=== PATIENT | male | born 1940 | race Caucasian/White ===

== ENCOUNTER → 2017-03-25 11:11 | Outpatient (POV) | payer MEDICARE, BC, SELFPAY | PROVIDERS: Visit Provider Podiatrist | DX: Z00.00 Encounter for general adult medical examination without abnormal findings (principal) ==

== ENCOUNTER → 2017-04-08 09:36 | Outpatient (POV) | payer MEDICARE, BC, SELFPAY | PROVIDERS: Visit Provider Podiatrist | DX: Z00.00 Encounter for general adult medical examination without abnormal findings (principal) ==

== ENCOUNTER → 2017-04-11 14:09 | Outpatient (CLI) | payer MEDICARE, BC, SELFPAY | PROVIDERS: PCP Internal Medicine; Visit Provider Internal Medicine | DX: J11.1 Influenza due to unidentified influenza virus with other respiratory manifestations (principal) | CPT/HCPCS: 87275; 87276 ==

== ENCOUNTER → 2017-04-26 11:12 | Outpatient (CLI) | payer MEDICARE, BC, SELFPAY ==
[2017-04-26 11:21] LABS: Microscopic, Urine URINE MICROSCOPIC (MICROSCOPIC)
[2017-04-26 11:55] LABS: Appearance,Urine CLEAR (Clear); Bilirubin,Urine Negative (Negative); Blood, Urine Negative (Negative); Color,Urine YELLOW (Yellow); Glucose,Urine (UA) Negative (Negative); Ketones,Urine Negative (Negative); Leukocyte Esterase,Urine Negative (Negative); Nitrate,Urine Negative (Negative); PH,Urine 5.5 (5.0-8.5); Protein,Urine Negative (Negative); Urobilinogen,Urine 0.2 EU/dl (0.2)
[2017-04-26 12:28] LABS: Creatinine,Urine Random 25 mg/dL (20-320)
[2017-04-26 12:58] LABS: Total Protein,Urine Random < 6.0 mg/dL (0.0-11.9)
[2017-04-26 14:12] LABS: Albumin Level 3.8 gm/dL (3.4-5.0); Anion Gap 10.9 mEq/L (5-15); Blood Urea Nitrogen 28 mg/dL (7-18); Calcium 8.5 mg/dL (8.5-10.1); Carbon Dioxide 31 mmol/L (21.0-32.0); Chloride 104 mmol/L (98-107); Creatinine,Serum 1.62 mg/dL (0.70-1.30); Estimated Glomerular Filt Rate 41 ml/min (>60); GFR (African American) 50 ML/MIN (>60); Glucose 98 mg/dL (74-106); Phosphorous 3.9 mg/dL (2.4-4.9); Potassium 4.9 mmoL/L (3.5-5.1); Sodium 141 mmol/L (136-145)
[2017-04-26 14:36] LABS: Bacteria,Urine Trace /lpf; Squamous Epithelial Cell,Urine Occasional #/hpf (0-5)
== END ==
PROVIDERS: Visit Provider Internal Medicine Nephrology
DX: N18.3 Chronic kidney disease, stage 3 (moderate) (principal)
CPT/HCPCS: 36415; 80069; 81001; 82570; 84155

== ENCOUNTER → 2017-09-06 10:32 | Outpatient (REF) | payer MEDICARE, BC, SELFPAY | LOC: LAB 10:32 | PROVIDERS: Visit Provider Podiatrist | DX: B35.1 Tinea unguium (principal) | CPT/HCPCS: 87102; 87206; 87220 ==

== ENCOUNTER → 2017-11-17 11:31 | Outpatient (CLI) | payer MEDICARE, SELFPAY ==
[2017-11-17 11:35] LABS: Microscopic, Urine URINE MICROSCOPIC (MICROSCOPIC)
[2017-11-17 12:02] LABS: Appearance,Urine CLEAR (Clear); Bilirubin,Urine Negative (Negative); Blood, Urine Negative (Negative); Color,Urine YELLOW (Yellow); Glucose,Urine (UA) Negative (Negative); Ketones,Urine Negative (Negative); Leukocyte Esterase,Urine Negative (Negative); Nitrate,Urine Negative (Negative); PH,Urine 5.5 (5.0-8.5); Protein,Urine Negative (Negative); Urobilinogen,Urine 0.2 EU/dl (0.2)
[2017-11-17 13:16] LABS: Squamous Epithelial Cell,Urine Occasional #/hpf (0-5)
[2017-11-17 14:24] LABS: Anion Gap 12.2 mEq/L (5-15); Blood Urea Nitrogen 32 mg/dL (7-18); Carbon Dioxide 30 mmol/L (21.0-32.0); Chloride 108 mmol/L (98-107); Creatinine,Serum 1.87 mg/dL (0.70-1.30); Estimated Glomerular Filt Rate 35 ml/min (>60); GFR (African American) 42 ML/MIN (>60); Glucose 141 mg/dL (74-106); Phosphorous 4.2 mg/dL (2.4-4.9); Potassium 5.2 mmoL/L (3.5-5.1); Sodium 145 mmol/L (136-145)
== END ==
PROVIDERS: PCP Internal Medicine; Visit Provider Internal Medicine Nephrology
DX: N18.3 Chronic kidney disease, stage 3 (moderate) (principal)
CPT/HCPCS: 36415; 80069; 81001

== ENCOUNTER → 2018-05-23 11:25 | Outpatient (CLI) | payer MEDICARE, SELFPAY ==
[2018-05-23 11:29] LABS: Microscopic, Urine URINE MICROSCOPIC (MICROSCOPIC)
[2018-05-23 11:47] LABS: Appearance,Urine CLEAR (Clear); Bilirubin,Urine Negative (Negative); Blood, Urine Negative (Negative); Color,Urine YELLOW (Yellow); Glucose,Urine (UA) Negative (Negative); Ketones,Urine Negative (Negative); Leukocyte Esterase,Urine Negative (Negative); Nitrate,Urine Negative (Negative); PH,Urine 5.5 (5.0-8.5); Protein,Urine Negative (Negative); Urobilinogen,Urine 0.2 EU/dl (0.2)
[2018-05-23 12:01] LABS: Basophils % 0.4 % (0.1-2.0); Eosinophils # 0.1 K/mm3 (0.0-0.4); Eosinophils % 1.3 % (0.1-12.0); Hematocrit 37.1 % (42.0-52.0); Lymphocytes # 2.5 K/mm3 (0.7-4.5); Lymphocytes % 35.9 % (10-50); Mean Corpuscular HGB Conc 32.5 g/dL (31.8-35.4); Mean Corpuscular Hemoglobin 33.3 pg (27.0-31.2); Mean Corpuscular Volume 102.4 fl (80-94); Mean Platelet Volume 7.9 fl (7.4-10.4); Monocytes # 0.4 K/mm3 (0.1-1.0); Monocytes % 5.4 % (1.7-9.3); Neutrophils # 3.9 K/mm3 (1.8-7.8); Platelet Count 229 K/mm3 (142-424); Red Blood Count 3.62 M/mm3 (4.60-6.20); Red Cell Distribution Width 14.9 % (11.5-17.5); White Blood Count 6.8 K/mm3 (4.8-10.8)
[2018-05-23 12:40] LABS: Bacteria,Urine Trace /lpf; Squamous Epithelial Cell,Urine Occasional #/hpf (0-5); WBC,Urine Occasional #/hpf (0-3)
[2018-05-23 12:51] LABS: Blood Urea Nitrogen 31 mg/dL (7-18); Calcium 8.7 mg/dL (8.5-10.1); Carbon Dioxide 28 mmol/L (21.0-32.0); Chloride 103 mmol/L (98-107); Creatinine,Serum 1.71 mg/dL (0.70-1.30); Estimated Glomerular Filt Rate 39 ml/min (>60); GFR (African American) 47 ML/MIN (>60); Glucose 229 mg/dL (74-106); Phosphorous 3.4 mg/dL (2.4-4.9); Sodium 140 mmol/L (136-145); Uric Acid 5.7 mg/dL (2.6-7.2)
[2018-05-24 08:44] LABS: Vitamin D 25 Hydroxy 32.2 ng/mL (30.0-100.0)
== END ==
PROVIDERS: Visit Provider Hospitalist
DX: N18.3 Chronic kidney disease, stage 3 (moderate) (principal)
CPT/HCPCS: 36415; 80069; 81001; 82652; 84550; 85025

== ENCOUNTER → 2018-10-19 17:14 | Outpatient (CLI) | payer MEDICARE, SELFPAY | PROVIDERS: Visit Provider Podiatrist | DX: M79.675 Pain in left toe(s) (principal) | CPT/HCPCS: 87070; 87077; 87186; 87205 ==

== ENCOUNTER → 2018-10-31 15:09 | Outpatient (CLI) | payer MEDICARE, BC, SELFPAY ==
--- NOTE | 2018-10-31 15:35 | CT_ITS ---
PROCEDURE: CT CERVICAL SPINE WO CON CLINICAL INDICATION: LOW BACK PAIN,WEAKNESS BOTH LEGS/ARMS,NECK PAIN Neck pain, bilateral arm weakness COMPARISON: No exams were available for comparison TECHNIQUE: Axial images obtained with sagittal and coronal reformats. All CT scans at the facility use one or more dose reduction, viz: automated exposure control, ma/kV adjustment per patient size (including targeted exams where dose is matched to indication, i.e. head), or iterative reconstruction technique. Axial spiral CT scanning performed of the cervical spine beginning at the base of the skull and continuing to the upper T-spine. 3-D multiplanar reconstruction with 3-D manipulation of volumetric data set in image rendering was completed by the radiologist and/or technologist with the supervision of the radiologist on independent workstation. FINDINGS: There is normal alignment. Prominent anterior osteophytes are present from C2 to C6 consistent with DISH. C2-C3: Unremarkable. C3-C4: Unremarkable. C4-C5: Unremarkable. C5-C6: Unremarkable. C6-C7: There is a small central/right paracentral disc osteophyte complex. There is an old spinous process fracture involving the tip of the T1 Centrilobular emphysematous changes are present IMPRESSION: No acute fracture. DISH of the cervical spine Small right paracentral disc osteophyte complex at C6-C7 Dictated by: Anoop Tsang MD 10/31/2018 16:38 Signed by: <Electronically signed by Anoop Tsang MD in [facility]> 10/31/2018 16:38
--- NOTE | 2018-10-31 15:35 | CT_ITS ---
PROCEDURE: CT LUMBAR SPINE WO CON CLINICAL HISTORY: LOW BACK PAIN,WEAKNESSBOTH LEGS/ARMS,NECK PAIN Bilateral leg weakness COMPARISON: No exams were available for comparison TECHNIQUE: Axial images obtained with sagittal and coronal reformats. All CT scans at the facility use one or more dose reduction, viz: automated exposure control, ma/kV adjustment per patient size (including targeted exams where dose is matched to indication, i.e. head), or iterative reconstruction technique. FINDINGS: Normal alignment. No fracture or dislocation. T12-L1: Degenerate disc disease. L1-L2: Mild degenerative disc disease. L2-L3: Mild bulging disc along with facet ligamentum hypertrophy with bilateral foraminal narrowing. L3-L4: Mild bulging disc. L4-5: Degenerate disc disease with bulging disc with facet and ligamentum hypertrophy with moderate bilateral foraminal narrowing slightly greater on the left. L5-S1: Degenerate disc disease with bulging disc which is partially calcified. The discus eccentric centrally and toward the left with moderate left lateral recess and foraminal narrowing and moderate right foraminal narrowing as well. There is sclerosis of the SI joints on both sides with partial fusion bilaterally. IMPRESSION: Multilevel degenerative disc disease with bulging disc a along with facet ligamentum hypertrophy with bilateral lateral recess and foraminal narrowing. Please see above for detailed description at each level Dictated by: Anoop Tsang MD 10/31/2018 16:44 Signed by: <Electronically signed by Anoop Tsang MD in [facility]> 10/31/2018 16:44
== END ==
PROVIDERS: PCP Internal Medicine; Visit Provider Internal Medicine
DX: M54.2 Cervicalgia (principal); M54.5 Low back pain; R53.1 Weakness
CPT/HCPCS: 72125; 72131

== ENCOUNTER → 2018-11-15 10:32 | Outpatient (CLI) | payer MEDICARE, SELFPAY ==
[2018-11-15 10:59] LABS: Basophils % 0.2 % (0.1-2.0); Eosinophils % 0.2 % (0.1-12.0); Hematocrit 33.5 % (42.0-52.0); Lymphocytes # 1.4 K/mm3 (0.7-4.5); Lymphocytes % 14.3 % (10-50); Mean Corpuscular HGB Conc 32.9 g/dL (31.8-35.4); Mean Corpuscular Hemoglobin 33.1 pg (27.0-31.2); Mean Corpuscular Volume 100.6 fl (80-94); Mean Platelet Volume 7.5 fl (7.4-10.4); Monocytes % 10.3 % (1.7-9.3); Neutrophils # 7.1 K/mm3 (1.8-7.8); Platelet Count 265 K/mm3 (142-424); Red Blood Count 3.33 M/mm3 (4.60-6.20); Red Cell Distribution Width 14.8 % (11.5-17.5); White Blood Count 9.5 K/mm3 (4.8-10.8)
[2018-11-15 11:06] LABS: Alanine Aminotransferase 43 U/L (12-78); Albumin Level 3.8 gm/dL (3.4-5.0); Albumin/Globulin Ratio 0.8 (1.1-1.8); Alkaline Phosphatase 109 U/L (46-116); Anion Gap 16.3 mEq/L (5-15); Aspartate Amino Transferase 35 U/L (15-37); Bilirubin,Total 0.4 mg/dL (0.2-1.0); Calcium 8.8 mg/dL (8.5-10.1); Carbon Dioxide 24 mmol/L (21.0-32.0); Chloride 93 mmol/L (98-107); Creatinine,Serum 2.65 mg/dL (0.70-1.30); Estimated Glomerular Filt Rate 23 ml/min (>60); GFR (African American) 28 ML/MIN (>60); Globulin 4.6 gm/dl (1.3-3.2); Glucose 222 mg/dL (74-106); Potassium 4.3 mmoL/L (3.5-5.1); Sodium 129 mmol/L (136-145); Total Protein,Serum 8.4 gm/dL (6.4-8.2)
[2018-11-15 11:13] LABS: C-Reactive Protein 17.2 mg/dL (0.0-0.9)
[2018-11-15 11:24] LABS: Blood Urea Nitrogen 77 mg/dL (7-18)
[2018-11-15 13:29] LABS: Hemoglobin A1C 7.4 % (0.0-7.0)
[2018-11-15 14:25] LABS: Erythrocyte Sedimentation Rate 121 mm/hr (0-20)
== END ==
PROVIDERS: PCP Internal Medicine; Visit Provider Podiatrist
DX: E11.42 Type 2 diabetes mellitus with diabetic polyneuropathy (principal); Z79.4 Long term (current) use of insulin; M79.675 Pain in left toe(s); E78.5 Hyperlipidemia, unspecified; N17.9 Acute kidney failure, unspecified; N18.3 Chronic kidney disease, stage 3 (moderate)
CPT/HCPCS: 36415; 80053; 83036; 85025; 85651; 86140

== ENCOUNTER → 2018-11-27 09:53 | Outpatient (CLI) | payer MEDICARE, BC, SELFPAY ==
--- NOTE | 2018-11-27 10:13 | XR_ITS ---
PROCEDURE: XR FOOT WT BEARING LT 3V CLINICAL INDICATION: toe wound COMPARISON: FTL3 FOOT-LT-3 VIEWS from 12/13/2016 FINDINGS: There is generalized mild osteopenia and lateral view shows flattening of the plantar arch. Some of the digits however on the AP and oblique view are flexed and therefore the middle and distal phalanges are not as well visualize, specially involving 3rd, 4th and 5th digits. There is narrowing of all of the interphalangeal joints and this is more severe with marginal spurs at the interphalangeal joint of the 1st digit. There is no acute fracture. There are stable degenerative arthritic changes involving the tarsal area especially the talonavicular joint. Again seen is the chronic benign periosteal reaction from the healed fracture involving the proximal phalanx of the 3rd digit. IMPRESSION: No definite acute process although difficult to evaluate the distal toes because of flexion of the digits. Chronic benign appearing erosion of the terminal tuft of the distal phalanx of the 2nd digit. Increased osteoarthritic changes at the 1st digit interphalangeal joint. Severe pes planus is stable. Dictated by: Prosper Valdez 11/27/2018 12:40 Electronically signed by Prosper Valdez in [place] 11/27/2018 12:40
[2018-11-27 14:48] LABS: C-Reactive Protein 0.9 mg/dL (0.0-0.9); Uric Acid 7.3 mg/dL (2.6-7.2)
[2018-11-27 16:38] LABS: Erythrocyte Sedimentation Rate > 140 mm/hr (0-20)
== END ==
PROVIDERS: PCP Internal Medicine; Visit Provider Podiatrist
DX: L03.032 Cellulitis of left toe (principal); M10.9 Gout, unspecified; M79.675 Pain in left toe(s)
CPT/HCPCS: 36415; 73630; 84550; 85651; 86140

== ENCOUNTER 2018-12-18 14:00 | Outpatient (RCR) | payer MEDICARE, BC, SELFPAY ==
--- NOTE | 2018-11-21 15:30 | HMH.PTOPEV ---
PT Outpatient Evaluation Rehab PT Outpatient Evaluation Start: 11/21/18 13:07 Freq: Status: Active Protocol: Document 11/21/18 13:51 PDESEROUX (Rec: 11/21/18 15:30 PDESEROUX [id number]) Electronically Signed By Jl Lane, PT 11/21/18 13:51 Outpatient Therapy Subjective History Subjective History Pt. is an 78 year old male who presents to outpatient PT with complaints of constant and subacute LLB/ LLE P! of traumatic onset since 11/03/18 after helping his granddaughter move. Pt. also reports L anterior/ superior shoulder P! that feels a lot better after the move. Recent diagnostic imaging positive for 3 bulging discs(lumbar) per pt. report. Pt. reports being W/C bound 2 weeks ago because he couldn't move his legs. Pt. reports going to the ER and seeing a Neurologist/[facility] where blood work was taken indicating his potassium level was off. Pt. RTMD( [facility]) on 12/12/18. Pt. RTMD(Leif) on 11/27/18. Current medications include Relion Novolin, Miralax, Ranitidine, Simethicone, Simvastatin, Vitamin B-12, Tylenol, Amlodipine, Aspirin, Plavix, Lasix, Coenzyme, and Allopurinol. PMH includes bilateral cataract surgery, HTN, type II diabetes, and a R mandible fracture. Chief Complaint Pain Symptom Type Ache Symptoms Relieved By Rest/Positioning Symptoms Aggravated By Standing,Bending/Stooping, Physical Activity,Twisting, Walking Prior Functional Limitations None Current Functional Limitations Lifting,Sleeping,Standing, Recreation Activity,Walking, Bending/Stooping Symptom Description Constant but Variable Level of pain today (0-10) 4 Pain scale - at its best (0-10) 3 Pain scale - at its worst (0-10) 6 Lumbopelvic Eval Posture Thoracic Spine Postu
== END 2019-01-01 16:00 | disposition home or self-care (01) ==
LOC: PT.CARL 14:00
PROVIDERS: PCP Internal Medicine; Visit Provider Internal Medicine
DX: M54.2 Cervicalgia (principal); M54.42 Lumbago with sciatica, left side
CPT/HCPCS: 97012; 97014; 97110; 97140; 97163; G0283

== ENCOUNTER → 2018-12-28 11:22 | Outpatient (CLI) | payer MEDICARE, BC, SELFPAY ==
[2018-12-28 11:29] LABS: Microscopic, Urine URINE MICROSCOPIC (MICROSCOPIC)
[2018-12-28 14:03] LABS: Basophils % 0.3 % (0.1-2.0); Eosinophils # 0.1 K/mm3 (0.0-0.4); Hematocrit 37.9 % (42.0-52.0); Hemoglobin 11.7 g/dL (14.1-18.0); Lymphocytes # 1.9 K/mm3 (0.7-4.5); Lymphocytes % 31.9 % (10-50); Mean Corpuscular HGB Conc 30.8 g/dL (31.8-35.4); Mean Corpuscular Hemoglobin 33.2 pg (27.0-31.2); Mean Corpuscular Volume 107.8 fl (80-94); Mean Platelet Volume 7.9 fl (7.4-10.4); Monocytes # 0.7 K/mm3 (0.1-1.0); Monocytes % 10.8 % (1.7-9.3); Neutrophils # 3.4 K/mm3 (1.8-7.8); Platelet Count 241 K/mm3 (142-424); Red Blood Count 3.51 M/mm3 (4.60-6.20); Red Cell Distribution Width 15.1 % (11.5-17.5); White Blood Count 6.1 K/mm3 (4.8-10.8)
[2018-12-28 14:07] LABS: Appearance,Urine CLEAR (Clear); Bilirubin,Urine Negative (Negative); Blood, Urine Negative (Negative); Color,Urine YELLOW (Yellow); Glucose,Urine (UA) Negative (Negative); Ketones,Urine Negative (Negative); Leukocyte Esterase,Urine TRACE (Negative); Nitrate,Urine Negative (Negative); PH,Urine 5.5 (5.0-8.5); Protein,Urine Negative (Negative); Urobilinogen,Urine 0.2 EU/dl (0.2)
[2018-12-28 14:15] LABS: Albumin Level 3.5 gm/dL (3.4-5.0); Anion Gap 11.1 mEq/L (5-15); Blood Urea Nitrogen 24 mg/dL (7-18); Calcium 8.4 mg/dL (8.5-10.1); Carbon Dioxide 28 mmol/L (21.0-32.0); Chloride 105 mmol/L (98-107); Creatinine,Serum 1.82 mg/dL (0.70-1.30); Estimated Glomerular Filt Rate 36 ml/min (>60); GFR (African American) 44 ML/MIN (>60); Glucose 176 mg/dL (74-106); Phosphorous 2.9 mg/dL (2.4-4.9); Potassium 4.1 mmoL/L (3.5-5.1); Sodium 140 mmol/L (136-145)
[2018-12-28 14:52] LABS: Bacteria,Urine Trace /lpf; Squamous Epithelial Cell,Urine Occasional #/hpf (0-5)
== END ==
PROVIDERS: PCP Internal Medicine; Visit Provider Internal Medicine Nephrology
DX: N18.4 Chronic kidney disease, stage 4 (severe) (principal)
CPT/HCPCS: 36415; 80069; 81001; 85025

== ENCOUNTER → 2019-01-02 12:28 | Outpatient (CLI) | payer MEDICARE, BC, SELFPAY ==
--- NOTE | 2019-01-02 12:30 | MR_ITS ---
PROCEDURE: MR LUMBAR SPINE WO CON CLINICAL INDICATION: LEFT SCIATICA, LOW BACK PAIN Low back pain with left-sided back pain and leg pain COMPARISON: CT LUMBAR SPINE WO CON from 10/31/2018 TECHNIQUE: Standard multiplanar multiecho sequences are performed without contrast. 3-D MIP and myelographic images are also rendered and reviewed FINDINGS: There is normal alignment. The spinal cord ends at the L1 level. T11-T12: Mild degenerative disc disease. T12-L1: Mild degenerative disc disease. L1-L2: Mild facet and ligamentum hypertrophy with mild bilateral foraminal narrowing. L2-L3: Mild bulging disc with facet and ligamentum hypertrophy with bilateral lateral recess and foraminal narrowing L3-L4: There is moderate facet ligamentum hypertrophy with bilateral lateral recess and foraminal narrowing. L4-5: Bulging disc with annular fissure with moderate facet ligamentum hypertrophy with severe left-sided foraminal narrowing and moderate right foraminal narrowing along with bilateral lateral recess narrowing. Borderline canal stenosis. L5-S1: Mild degenerative disc disease with concentric bulging disc/disc osteophyte complex which is somewhat eccentric toward the left along with facet and ligamentum hypertrophy with resultant severe left-sided foraminal narrowing and moderate right foraminal narrowing along with canal stenosis of 10 mm. No extruded herniated disc evident. IMPRESSION: 1. Abnormal MRI of the lumbar spine with multilevel lumbar spondylosis as detailed above with varying levels of lateral recess and foraminal narrowing with borderline canal stenosis at L4-5 and canal stenosis at L5-S1. Please see above for detailed description at each level. 2. L4-5: Bulging disc with annular fissure with moderate facet ligamentum hypertrophy with severe left-sided foraminal narrowing and moderate right foraminal narrowing along with bilateral lateral recess narrowing. Borderline canal stenosis. 3. L5-S1: Mild degenerative disc disease with concentric bulging disc/disc osteophyte complex which is somewhat eccentric toward the left along with facet and ligamentum hypertrophy with resultant severe left-sided foraminal narrowing and moderate right foraminal narrowing along with canal stenosis of 10 mm Dictated by: Anoop Tsang MD 01/05/2019 06:41 Electronically signed by Anoop Tsang MD in [facility] 01/05/2019 06:41
== END ==
PROVIDERS: PCP Internal Medicine; Visit Provider Internal Medicine
DX: M54.32 Sciatica, left side (principal)
CPT/HCPCS: 72148; 76376

== ENCOUNTER → 2019-03-27 10:39 | Outpatient (CLI) | payer MEDICARE, SELFPAY ==
[2019-03-27 10:46] LABS: Microscopic, Urine URINE MICROSCOPIC (MICROSCOPIC)
[2019-03-27 13:52] LABS: Basophils % 0.5 % (0.1-2.0); Eosinophils # 0.1 K/mm3 (0.0-0.4); Eosinophils % 1.8 % (0.1-12.0); Hematocrit 38.9 % (42.0-52.0); Hemoglobin 12.7 g/dL (14.1-18.0); Lymphocytes # 2.3 K/mm3 (0.7-4.5); Mean Corpuscular HGB Conc 32.6 g/dL (31.8-35.4); Mean Corpuscular Hemoglobin 32.2 pg (27.0-31.2); Mean Corpuscular Volume 98.6 fl (80-94); Mean Platelet Volume 8.3 fl (7.4-10.4); Monocytes # 0.5 K/mm3 (0.1-1.0); Monocytes % 6.9 % (1.7-9.3); Neutrophils # 4.7 K/mm3 (1.8-7.8); Neutrophils % 60.7 % (37.0-80.0); Platelet Count 278 K/mm3 (142-424); Red Blood Count 3.94 M/mm3 (4.60-6.20); Red Cell Distribution Width 14.4 % (11.5-17.5); White Blood Count 7.8 K/mm3 (4.8-10.8)
[2019-03-27 14:46] LABS: Appearance,Urine CLEAR (Clear); Bilirubin,Urine Negative (Negative); Blood, Urine Negative (Negative); Color,Urine STRAW (Yellow); Glucose,Urine (UA) Negative (Negative); Ketones,Urine Negative (Negative); Leukocyte Esterase,Urine Negative (Negative); Nitrate,Urine Negative (Negative); PH,Urine 5.5 (5.0-8.5); Protein,Urine Negative (Negative); Specific Gravity, Urine 1.025 (1.005-1.030); Urobilinogen,Urine 0.2 EU/dl (0.2)
[2019-03-27 15:11] LABS: Bacteria,Urine 2+ /lpf; Hyaline Casts,Urine Occasional #/lpf (0); Mucus,Urine 1+ /lpf; Squamous Epithelial Cell,Urine Occasional #/hpf (0-5); WBC,Urine Occasional #/hpf (0-3)
[2019-03-27 21:04] LABS: Albumin Level 3.8 gm/dL (3.4-5.0); Anion Gap 16.8 mEq/L (5-15); Blood Urea Nitrogen 30 mg/dL (7-18); Calcium 8.6 mg/dL (8.5-10.1); Carbon Dioxide 29 mmol/L (21.0-32.0); Chloride 104 mmol/L (98-107); Creatinine,Serum 2.07 mg/dL (0.70-1.30); Estimated Glomerular Filt Rate 31 ml/min (>60); Ferritin 96 ng/mL (8-388); GFR (African American) 38 ML/MIN (>60); Glucose 197 mg/dL (74-106); Potassium 4.8 mmoL/L (3.5-5.1); Sodium 145 mmol/L (136-145)
[2019-03-28 09:18] LABS: Iron 74 ug/dL (38-169); UIBC 202 ug/dL (111-343)
[2019-03-28 10:49] LABS: Iron Saturation 27 % (15-55)
== END ==
PROVIDERS: PCP Internal Medicine; Visit Provider Internal Medicine Nephrology
DX: N18.3 Chronic kidney disease, stage 3 (moderate) (principal); D64.9 Anemia, unspecified; R82.90 Unspecified abnormal findings in urine
CPT/HCPCS: 36415; 80069; 81001; 82728; 83540; 83550; 85025; 87086

== ENCOUNTER → 2019-08-02 11:49 | Outpatient (CLI) | payer MEDICARE, SELFPAY ==
[2019-08-02 11:53] LABS: Microscopic, Urine URINE MICROSCOPIC (MICROSCOPIC)
[2019-08-02 12:25] LABS: Basophils # 0.1 K/mm3 (0-0.2); Basophils % 0.8 % (0.1-2.0); Eosinophils # 0.1 K/mm3 (0.0-0.4); Hematocrit 38.9 % (42.0-52.0); Lymphocytes # 2.1 K/mm3 (0.7-4.5); Lymphocytes % 27.6 % (10-50); Mean Corpuscular HGB Conc 33.5 g/dL (31.8-35.4); Mean Corpuscular Hemoglobin 33.8 pg (27.0-31.2); Mean Corpuscular Volume 100.6 fl (80-94); Mean Platelet Volume 7.6 fl (7.4-10.4); Monocytes # 0.6 K/mm3 (0.1-1.0); Monocytes % 7.2 % (1.7-9.3); Neutrophils # 4.9 K/mm3 (1.8-7.8); Neutrophils % 63.5 % (37.0-80.0); Platelet Count 232 K/mm3 (142-424); Red Blood Count 3.86 M/mm3 (4.60-6.20); Red Cell Distribution Width 14.7 % (11.5-17.5); White Blood Count 7.8 K/mm3 (4.8-10.8)
[2019-08-02 14:08] LABS: Albumin Level 4.1 g/dl (3.5-5.0); Chloride 102 mmol/L (98-107); Potassium 4.9 mmoL/L (3.5-5.1); Sodium 141 mmol/L (136-145)
[2019-08-02 14:11] LABS: Anion Gap 10.9 mEq/L (5-15); Blood Urea Nitrogen 26 mg/dl (9-20); Calcium 8.5 mg/dl (8.4-10.2); Carbon Dioxide 33 mmol/L (22.0-30.0); Estimated Glomerular Filt Rate 36 ml/min (>60); GFR (African American) 44 ML/MIN (>60); Glucose 215 mg/dl (74-100); Phosphorous 3.8 mg/dl (2.5-4.5); Uric Acid 7.7 mg/dl (3.5-8.5)
[2019-08-02 14:50] LABS: Appearance,Urine CLEAR (Clear); Bilirubin,Urine Negative (Negative); Blood, Urine Negative (Negative); Color,Urine YELLOW (Yellow); Glucose,Urine (UA) Negative (Negative); Ketones,Urine Negative (Negative); Leukocyte Esterase,Urine Negative (Negative); Nitrate,Urine Negative (Negative); PH,Urine 6.5 (5.0-8.5); Protein,Urine Negative (Negative); Urobilinogen,Urine 0.2 EU/dl (0.2)
[2019-08-02 17:29] LABS: Bacteria,Urine Trace /lpf; Squamous Epithelial Cell,Urine Occasional #/hpf (0-5); WBC,Urine Occasional #/hpf (0-3)
[2019-08-03 12:06] LABS: Vitamin D 25 Hydroxy 34.6 ng/mL (30.0-100.0)
[2019-08-03 15:41] LABS: Parathyroid Hormone Intact 52 pg/mL (15-65)
== END ==
PROVIDERS: Visit Provider Hospitalist
DX: N18.3 Chronic kidney disease, stage 3 (moderate) (principal); M10.9 Gout, unspecified
CPT/HCPCS: 36415; 80069; 81001; 82652; 83970; 84550; 85025

== ENCOUNTER → 2019-12-24 14:53 | Outpatient (CLI) | payer MEDICARE, BC, SELFPAY ==
[2019-12-24 14:57] LABS: Microscopic, Urine URINE MICROSCOPIC (MICROSCOPIC)
--- NOTE | 2019-12-24 15:08 | XR_ITS ---
PROCEDURE: XR ACUTE ABDOMEN SERIES CLINICAL INDICATION: RUQ ABD PAIN COMPARISON: CT ABDPELW/O CT ABD PELVIS W/O CONTRAST from 05/01/2013 CR CXR CHEST(2 VIEWS-NOT PORTABLE) from 07/15/2015 FINDINGS: Frontal view of the chest shows no acute finding. Upright and supine views the abdomen show few air-fluid levels in the mid abdominal region and right lower quadrant. No evidence of intestinal obstruction or free air. There are degenerative changes of the lumbar spine and hips. Faint opacities are present in the right upper quadrant on the supine views suggesting gallstones. IMPRESSION: Cholelithiasis suspected otherwise negative Dictated by: Anoop Tsang MD 12/24/2019 15:48 Anoop Tsang MD in [facility] 12/24/2019 15:48
[2019-12-24 15:16] LABS: Appearance,Urine CLEAR (Clear); Bilirubin,Urine Negative (Negative); Blood, Urine Negative (Negative); Color,Urine YELLOW (Yellow); Glucose,Urine (UA) Negative (Negative); Ketones,Urine Negative (Negative); Leukocyte Esterase,Urine Negative (Negative); Nitrate,Urine Negative (Negative); Protein,Urine Negative (Negative); Urobilinogen,Urine 0.2 EU/dl (0.2)
[2019-12-24 15:18] LABS: Basophils % 0.3 % (0.1-2.0); Eosinophils # 0.1 K/mm3 (0.0-0.4); Eosinophils % 0.6 % (0.1-12.0); Hematocrit 41.9 % (42.0-52.0); Hemoglobin 14.1 g/dL (14.1-18.0); Lymphocytes # 2.5 K/mm3 (0.7-4.5); Lymphocytes % 26.2 % (10-50); Mean Corpuscular HGB Conc 33.6 g/dL (31.8-35.4); Mean Corpuscular Hemoglobin 33.1 pg (27.0-31.2); Mean Corpuscular Volume 98.3 fl (80-94); Mean Platelet Volume 8.4 fl (7.4-10.4); Monocytes # 0.7 K/mm3 (0.1-1.0); Monocytes % 7.2 % (1.7-9.3); Neutrophils # 6.2 K/mm3 (1.8-7.8); Neutrophils % 65.7 % (37.0-80.0); Platelet Count 256 K/mm3 (142-424); Red Blood Count 4.26 M/mm3 (4.60-6.20); Red Cell Distribution Width 15.4 % (11.5-17.5); White Blood Count 9.5 K/mm3 (4.8-10.8)
[2019-12-24 15:29] LABS: Chloride 99 mmol/L (98-107); Potassium 4.6 mmoL/L (3.5-5.1); Sodium 142 mmol/L (136-145)
[2019-12-24 15:31] LABS: Amylase 58 U/L (30-110)
[2019-12-24 15:32] LABS: Alanine Aminotransferase 21 U/L (12-78); Albumin Level 4.7 g/dl (3.5-5.0); Albumin/Globulin Ratio 1.5 (1.1-1.8); Alkaline Phosphatase 127 U/L (38-126); Anion Gap 15.6 mEq/L (5-15); Aspartate Amino Transferase 27 U/L (17-59); Bilirubin,Total 0.5 mg/dl (0.2-1.3); Blood Urea Nitrogen 24 mg/dl (9-20); Calcium 9.1 mg/dl (8.4-10.2); Carbon Dioxide 32 mmol/L (22.0-30.0); Estimated Glomerular Filt Rate 34 ml/min (>60); GFR (African American) 41 ML/MIN (>60); Globulin 3.1 g/dL (1.3-3.2); Glucose 128 mg/dl (74-100); Total Protein,Serum 7.8 g/dl (6.3-8.2)
== END ==
PROVIDERS: Visit Provider Internal Medicine
DX: R10.11 Right upper quadrant pain (principal)
CPT/HCPCS: 36415; 74021; 80053; 81001; 82150; 85025

== ENCOUNTER → 2019-12-28 08:06 | Outpatient (CLI) | payer MEDICARE, BC, SELFPAY ==
--- NOTE | 2019-12-28 08:10 | US_ITS ---
PROCEDURE: US ABDOMEN LIMITED CLINICAL INDICATION: RUQ PAIN Radiates to lower back COMPARISON: No exams were available for comparison FINDINGS: PANCREAS: Unremarkable. No obvious mass or abnormal fluid collection. No ductal dilatation LIVER: The liver is normal in size and shows diffuse overall increased echogenicity consistent with fatty infiltration. There are no focal lesions. Fluids hepatopedal in the nondilated main portal vein. RIGHT KIDNEY: The right kidney measures 10.5 x 5.2 by 4.7 cm and detail is somewhat degraded due to the body habitus but overall the right kidney appears normal. GALLBLADDER: The gallbladder is mildly hydropic and there are calcified stones and biliary sludge dependent portion of the gallbladder and near the neck. The common bile duct is mildly dilated at 0.7 cm. IMPRESSION: Cholelithiasis along with diffuse hepatic steatosis Dictated by: Dr. Kenan Mota MD 12/28/2019 08:52 Dr. Kenan Mota MD in [facility] 12/28/2019 08:52
== END ==
PROVIDERS: PCP Internal Medicine; Visit Provider Internal Medicine
DX: R10.11 Right upper quadrant pain (principal)
CPT/HCPCS: 76705

== ENCOUNTER → 2020-01-04 14:01 | Outpatient (CLI) | payer MEDICARE, BC, SELFPAY ==
[2020-01-04 16:35] LABS: Blood Urea Nitrogen 39 mg/dl (9-20); Estimated Glomerular Filt Rate 29 ml/min (>60); GFR (African American) 35 ML/MIN (>60)
== END ==
PROVIDERS: Visit Provider Surgery
DX: R10.11 Right upper quadrant pain (principal)
CPT/HCPCS: 36415; 82565; 84520

== ENCOUNTER → 2020-01-10 09:31 | Outpatient (CLI) | payer MEDICARE, BC, SELFPAY ==
--- NOTE | 2020-01-10 09:31 | CT_ITS ---
PROCEDURE: CT ABDOMEN PELVIS WO CON CLINICAL INDICATION: right upper quad pain RLQ PAIN, RADIATES TO RUQ AND TO RIGHT FLANK REDICAT COMPARISON: CT ABDPELW/O CT ABD PELVIS W/O CONTRAST from 05/01/2013 TECHNIQUE: Axial images obtained with sagittal and coronal reformats. All CT scans at the facility use one or more dose reduction, viz: automated exposure control, ma/kV adjustment per patient size (including targeted exams where dose is matched to indication, i.e. head), or iterative reconstruction technique. FINDINGS: LOWER THORAX: Centrilobular emphysematous changes. Mild thickening of the pericardium measuring up to 8 mm in thickness. Coronary artery calcifications ABDOMEN & PELVIS: Multiple gallstones are present. There is a curvilinear area of decreased attenuation in the left hepatic lobe anterior to the gallbladder fossa which is nonspecific and may be better evaluated with MRI. The spleen, adrenal glands, and pancreas have an unremarkable unenhanced appearance. There is a 2 cm exophytic isodense the projecting off the lateral aspect of the left kidney consistent with a renal cyst. No renal or ureteral calculi. There are small periaortic lymph nodes. There is a retro aortic left renal vein. No intestinal obstruction or free air. No evidence of appendicitis or diverticulitis. There is diverticulosis of the descending colon. There is mild mucosal thickening of the urinary bladder. There are degenerative changes of the lumbar and thoracic spine with osteoarthritis noted of the hips and sclerosis of the SI joints. IMPRESSION: 1. Cholelithiasis. 2. Indeterminate curvilinear hypodensity in the left hepatic lobe, segment 4 in the gallbladder fossa region. Consider MRI without and with gadolinium enhancement for further evaluation. 3. Colonic diverticulosis without diverticulitis. 4. Other nonacute findings as described above Dictated by: Anoop Tsang MD 01/11/2020 06:14 Anoop Tsang MD in [facility] 01/11/2020 06:14
== END ==
PROVIDERS: PCP Internal Medicine; Visit Provider Surgery
DX: R10.11 Right upper quadrant pain (principal)
CPT/HCPCS: 74176

== ENCOUNTER → 2020-01-23 08:51 | Outpatient (CLI) | payer MEDICARE, BC, SELFPAY ==
--- NOTE | 2020-01-23 09:11 | MR_ITS ---
PROCEDURE: MR ABDOMEN WO/W CON CLINICAL INDICATION: Liver MRI/abnormal CT scan, Liver lesion COMPARISON: CT CT ABDOMEN PELVIS WO CON from 01/10/2020 TECHNIQUE: Routine multiplanar multi echo sequences are performed without gadolinium enhancement. FINDINGS: Recent CT scan of 01/10/2020 demonstrated vague low-density areas in the medial segment of left hepatic lobe which is felt to be focal fatty infiltration. In and out of phase images show decreased intensity in this area on the out of phase images consistent with focal fatty infiltration. No suspicious focal liver lesions are evident. Cholelithiasis is noted. There is an exophytic left renal cyst which measures 2.3 cm. Pre and post enhanced images show no abnormal enhancement. The spleen and pancreas and adrenal glands have an unremarkable appearance as does the right kidney. There is a small exophytic left renal cyst. IMPRESSION: Low-density changes in the liver seen on the recent CT scan is felt to have represented some focal fatty infiltration. No suspicious lesions of the liver are evident. Cholelithiasis. Dictated by: Anoop Tsang MD 01/28/2020 10:48 Anoop Tsang MD in [facility] 01/28/2020 10:48
[2020-01-23 09:31] LABS: Blood Urea Nitrogen 35 mg/dl (9-20); Estimated Glomerular Filt Rate 34 ml/min (>60); GFR (African American) 41 ML/MIN (>60)
== END ==
PROVIDERS: PCP Internal Medicine; Visit Provider Surgery
DX: K76.9 Liver disease, unspecified (principal)
CPT/HCPCS: 36415; 74183; 82565; 84520; A9576

== ENCOUNTER → 2020-03-11 14:24 | Outpatient (CLI) | payer MEDICARE, BC, SELFPAY ==
[2020-03-11 14:30] LABS: Microscopic, Urine URINE MICROSCOPIC (MICROSCOPIC)
[2020-03-11 15:16] LABS: Appearance,Urine CLEAR (Clear); Bilirubin,Urine Negative (Negative); Blood, Urine Negative (Negative); Color,Urine YELLOW (Yellow); Glucose,Urine (UA) 1+ (Negative); Ketones,Urine Negative (Negative); Leukocyte Esterase,Urine Negative (Negative); Nitrate,Urine Negative (Negative); PH,Urine 5.5 (5.0-8.5); Protein,Urine Negative (Negative); Urobilinogen,Urine 0.2 EU/dl (0.2)
[2020-03-11 15:26] LABS: Creatinine,Urine Random 59 mg/dL (Not Estab.)
[2020-03-11 16:03] LABS: Albumin Level 4.8 g/dl (3.5-5.0); Anion Gap 15.5 mEq/L (5-15); Blood Urea Nitrogen 35 mg/dl (9-20); Calcium 9.4 mg/dl (8.4-10.2); Carbon Dioxide 29 mmol/L (22.0-30.0); Chloride 97 mmol/L (98-107); Estimated Glomerular Filt Rate 34 ml/min (>60); GFR (African American) 41 ML/MIN (>60); Glucose 299 mg/dl (74-100); Phosphorous 4.1 mg/dl (2.5-4.5); Potassium 4.5 mmoL/L (3.5-5.1); Sodium 137 mmol/L (136-145)
== END ==
PROVIDERS: Visit Provider Internal Medicine Nephrology
DX: N18.30 Chronic kidney disease, stage 3 unspecified (principal)
CPT/HCPCS: 36415; 80069; 81001; 82570; 84155

== ENCOUNTER → 2020-04-22 10:45 | Outpatient (CLI) | payer MEDICARE, BC, SELFPAY ==
[2020-04-22 10:49] LABS: Microscopic, Urine URINE MICROSCOPIC (MICROSCOPIC)
[2020-04-22 11:34] LABS: Appearance,Urine CLEAR (Clear); Bilirubin,Urine Negative (Negative); Blood, Urine Negative (Negative); Color,Urine YELLOW (Yellow); Glucose,Urine (UA) Negative (Negative); Ketones,Urine Negative (Negative); Leukocyte Esterase,Urine Negative (Negative); Nitrate,Urine Negative (Negative); Protein,Urine Negative (Negative); Specific Gravity, Urine 1.025 (1.005-1.030); Urobilinogen,Urine 0.2 EU/dl (0.2)
[2020-04-22 11:52] LABS: Creatinine,Urine Random 132 mg/dL (Not Estab.)
[2020-04-22 12:07] LABS: Albumin Level 4.7 g/dl (3.5-5.0); Chloride 100 mmol/L (98-107); Potassium 4.7 mmoL/L (3.5-5.1); Sodium 140 mmol/L (136-145)
[2020-04-22 12:09] LABS: Blood Urea Nitrogen 35 mg/dl (9-20); Estimated Glomerular Filt Rate 32 ml/min (>60); GFR (African American) 39 ML/MIN (>60)
[2020-04-22 12:10] LABS: Anion Gap 12.7 mEq/L (5-15); Carbon Dioxide 32 mmol/L (22.0-30.0); Glucose 223 mg/dl (74-100); Phosphorous 4.1 mg/dl (2.5-4.5)
== END ==
PROVIDERS: Visit Provider Internal Medicine Nephrology
DX: N18.30 Chronic kidney disease, stage 3 unspecified (principal)
CPT/HCPCS: 36415; 80069; 81001; 82570; 84155

== ENCOUNTER → 2020-06-23 11:32 | Outpatient (CLI) | payer MEDICARE, BC, SELFPAY ==
[2020-06-23 11:36] LABS: Microscopic, Urine URINE MICROSCOPIC (MICROSCOPIC)
[2020-06-23 14:49] LABS: Basophils % 0.4 % (0.1-2.0); Eosinophils # 0.1 K/mm3 (0.0-0.4); Eosinophils % 0.8 % (0.1-12.0); Hematocrit 40.5 % (42.0-52.0); Hemoglobin 13.2 g/dL (14.1-18.0); Lymphocytes # 2.2 K/mm3 (0.7-4.5); Mean Corpuscular HGB Conc 32.5 g/dL (31.8-35.4); Mean Corpuscular Hemoglobin 33.1 pg (27.0-31.2); Mean Corpuscular Volume 101.8 fl (80-94); Mean Platelet Volume 8.1 fl (7.4-10.4); Monocytes # 0.5 K/mm3 (0.1-1.0); Monocytes % 6.7 % (1.7-9.3); Neutrophils # 4.7 K/mm3 (1.8-7.8); Platelet Count 219 K/mm3 (142-424); Red Blood Count 3.97 M/mm3 (4.60-6.20); Red Cell Distribution Width 15.6 % (11.5-17.5); White Blood Count 7.5 K/mm3 (4.8-10.8)
[2020-06-23 14:54] LABS: Appearance,Urine CLEAR (Clear); Bilirubin,Urine Negative (Negative); Blood, Urine Negative (Negative); Color,Urine YELLOW (Yellow); Glucose,Urine (UA) Negative (Negative); Ketones,Urine Negative (Negative); Leukocyte Esterase,Urine Negative (Negative); Nitrate,Urine Negative (Negative); PH,Urine 5.5 (5.0-8.5); Protein,Urine Negative (Negative); Urobilinogen,Urine 0.2 EU/dl (0.2)
[2020-06-23 15:02] LABS: Chloride 101 mmol/L (98-107); Sodium 139 mmol/L (136-145)
[2020-06-23 15:03] LABS: Albumin Level 4.5 g/dl (3.5-5.0); Potassium 4.8 mmoL/L (3.5-5.1)
[2020-06-23 15:05] LABS: Anion Gap 14.8 mEq/L (5-15); Blood Urea Nitrogen 28 mg/dl (9-20); Carbon Dioxide 28 mmol/L (22.0-30.0); Estimated Glomerular Filt Rate 39 ml/min (>60); GFR (African American) 47 ML/MIN (>60)
[2020-06-23 15:06] LABS: Calcium 8.8 mg/dl (8.4-10.2); Glucose 195 mg/dl (74-100); Phosphorous 3.9 mg/dl (2.5-4.5)
[2020-06-23 15:46] LABS: Bacteria,Urine 1+ /lpf
== END ==
PROVIDERS: Visit Provider Hospitalist
DX: N18.30 Chronic kidney disease, stage 3 unspecified (principal)
CPT/HCPCS: 36415; 80069; 81001; 85025

== ENCOUNTER → 2020-10-27 11:06 | Outpatient (CLI) | payer MEDICARE, BC, SELFPAY ==
[2020-10-27 11:10] LABS: Microscopic, Urine URINE MICROSCOPIC (MICROSCOPIC)
[2020-10-27 11:47] LABS: Basophils % 0.4 % (0.1-2.0); Eosinophils # 0.1 K/mm3 (0.0-0.4); Eosinophils % 0.9 % (0.1-12.0); Hematocrit 39.8 % (42.0-52.0); Hemoglobin 12.9 g/dL (14.1-18.0); Lymphocytes # 2.2 K/mm3 (0.7-4.5); Lymphocytes % 30.6 % (10-50); Mean Corpuscular HGB Conc 32.3 g/dL (31.8-35.4); Mean Corpuscular Hemoglobin 33.8 pg (27.0-31.2); Mean Corpuscular Volume 104.5 fl (80-94); Monocytes # 0.5 K/mm3 (0.1-1.0); Monocytes % 6.8 % (1.7-9.3); Neutrophils # 4.4 K/mm3 (1.8-7.8); Neutrophils % 61.3 % (37.0-80.0); Platelet Count 229 K/mm3 (142-424); Red Blood Count 3.81 M/mm3 (4.60-6.20); Red Cell Distribution Width 14.5 % (11.5-17.5); White Blood Count 7.2 K/mm3 (4.8-10.8)
[2020-10-27 11:49] LABS: Appearance,Urine CLEAR (Clear); Bilirubin,Urine Negative (Negative); Blood, Urine Negative (Negative); Color,Urine YELLOW (Yellow); Glucose,Urine (UA) Negative (Negative); Ketones,Urine Negative (Negative); Leukocyte Esterase,Urine TRACE (Negative); Nitrate,Urine Negative (Negative); PH,Urine 5.5 (5.0-8.5); Protein,Urine Negative (Negative); Urobilinogen,Urine 0.2 EU/dl (0.2)
[2020-10-27 12:27] LABS: Albumin Level 4.1 g/dl (3.5-5.0); Anion Gap 15.7 mEq/L (5-15); Blood Urea Nitrogen 23 mg/dl (9-20); Calcium 8.7 mg/dl (8.4-10.2); Carbon Dioxide 30 mmol/L (22.0-30.0); Chloride 102 mmol/L (98-107); Estimated Glomerular Filt Rate 42 ml/min (>60); GFR (African American) 50 ML/MIN (>60); Glucose 180 mg/dl (74-100); Phosphorous 3.4 mg/dl (2.5-4.5); Potassium 4.7 mmoL/L (3.5-5.1); Sodium 143 mmol/L (136-145)
[2020-10-27 12:43] LABS: 25-OH Vitamin D, Total 36.8 ng/mL (30-100)
== END ==
PROVIDERS: Visit Provider Internal Medicine Nephrology
DX: N18.30 Chronic kidney disease, stage 3 unspecified (principal)
CPT/HCPCS: 36415; 80069; 81001; 82306; 83970; 85025

== ENCOUNTER → 2021-03-09 12:29 | Outpatient (CLI) | payer MEDICARE, BC, SELFPAY ==
[2021-03-09 12:35] LABS: Microscopic, Urine URINE MICROSCOPIC (MICROSCOPIC)
[2021-03-09 12:55] LABS: Appearance,Urine CLEAR (Clear); Basophils % 0.3 % (0.1-2.0); Bilirubin,Urine Negative (Negative); Blood, Urine Negative (Negative); Color,Urine YELLOW (Yellow); Eosinophils # 0.1 K/mm3 (0.0-0.4); Glucose,Urine (UA) Negative (Negative); Hematocrit 42.4 % (42.0-52.0); Hemoglobin 13.4 g/dL (14.1-18.0); Ketones,Urine Negative (Negative); Leukocyte Esterase,Urine Negative (Negative); Lymphocytes # 1.9 K/mm3 (0.7-4.5); Lymphocytes % 23.9 % (10-50); Mean Corpuscular HGB Conc 31.5 g/dL (31.8-35.4); Mean Corpuscular Hemoglobin 33.7 pg (27.0-31.2); Mean Platelet Volume 8.4 fl (7.4-10.4); Monocytes # 0.6 K/mm3 (0.1-1.0); Monocytes % 7.1 % (1.7-9.3); Neutrophils # 5.3 K/mm3 (1.8-7.8); Neutrophils % 67.7 % (37.0-80.0); Nitrate,Urine Negative (Negative); Platelet Count 245 K/mm3 (142-424); Protein,Urine Negative (Negative); Red Blood Count 3.96 M/mm3 (4.60-6.20); Red Cell Distribution Width 14.8 % (11.5-17.5); Specific Gravity, Urine 1.025 (1.005-1.030); Urobilinogen,Urine 0.2 EU/dl (0.2); White Blood Count 7.9 K/mm3 (4.8-10.8)
[2021-03-09 13:11] LABS: Bacteria,Urine Trace /lpf; RBC,Urine Occasional #/hpf (0-3)
[2021-03-09 13:42] LABS: Albumin Level 4.4 g/dl (3.5-5.0); Anion Gap 12.6 mEq/L (5-15); Blood Urea Nitrogen 32 mg/dl (9-20); Calcium 8.8 mg/dl (8.4-10.2); Carbon Dioxide 33 mmol/L (22.0-30.0); Chloride 97 mmol/L (98-107); Estimated Glomerular Filt Rate 36 ml/min (>60); GFR (African American) 44 ML/MIN (>60); Glucose 200 mg/dl (74-100); Phosphorous 3.9 mg/dl (2.5-4.5); Potassium 4.6 mmoL/L (3.5-5.1); Sodium 138 mmol/L (136-145)
[2021-03-09 13:54] LABS: Intact Parathyroid Hormone 111.1 pg/mL (7.5-53.5)
[2021-03-09 13:59] LABS: 25-OH Vitamin D, Total 26.3 ng/mL (30-100)
== END ==
PROVIDERS: PCP Internal Medicine; Visit Provider Internal Medicine Nephrology
DX: N18.30 Chronic kidney disease, stage 3 unspecified (principal)
CPT/HCPCS: 36415; 80069; 81001; 82306; 83970; 85025

== ENCOUNTER → 2021-08-26 12:08 | Outpatient (CLI) | payer MEDICARE, BC, SELFPAY ==
[2021-08-26 12:19] LABS: Microscopic, Urine URINE MICROSCOPIC (MICROSCOPIC)
[2021-08-26 13:00] LABS: Appearance,Urine CLEAR (Clear); Bilirubin,Urine Negative (Negative); Blood, Urine Negative (Negative); Color,Urine YELLOW (Yellow); Glucose,Urine (UA) Negative (Negative); Ketones,Urine Negative (Negative); Leukocyte Esterase,Urine Negative (Negative); Nitrate,Urine Negative (Negative); PH,Urine 5.5 (5.0-8.5); Protein,Urine Negative (Negative); Specific Gravity, Urine 1.015 (1.005-1.030); Urobilinogen,Urine 0.2 EU/dl (0.2)
[2021-08-26 13:21] LABS: Bacteria,Urine Trace /lpf; Hyaline Casts,Urine Occasional #/lpf (0); Squamous Epithelial Cell,Urine Occasional #/hpf (0-5)
[2021-08-26 13:31] LABS: Anion Gap 14.5 mEq/L (5-15); Blood Urea Nitrogen 36 mg/dl (9-20); Calcium 8.7 mg/dl (8.4-10.2); Carbon Dioxide 30 mmol/L (22.0-30.0); Chloride 99 mmol/L (98-107); Estimated Glomerular Filt Rate 36 ml/min (>60); GFR (African American) 44 ML/MIN (>60); Glucose 256 mg/dl (74-100); Potassium 4.5 mmoL/L (3.5-5.1); Sodium 139 mmol/L (136-145)
[2021-08-26 13:43] LABS: Intact Parathyroid Hormone 99.3 pg/mL (7.5-53.5)
[2021-08-26 13:49] LABS: 25-OH Vitamin D, Total 42.4 ng/mL (30-100)
== END ==
PROVIDERS: PCP Internal Medicine; Visit Provider Internal Medicine Nephrology
DX: N18.32 Chronic kidney disease, stage 3b (principal); E55.9 Vitamin D deficiency, unspecified
CPT/HCPCS: 36415; 80069; 81001; 82306; 83970

== ENCOUNTER 2021-09-23 14:24 | Emergency (ER) | payer MEDICARE, BC, SELFPAY ==
[2021-09-23 14:32] VITALS: BP 130/80; PULSE 71; RESP 19; TEMP 36.6; O2SAT 97; BMI 38.6
[2021-09-23 15:06] VITALS: BP 130/80; PULSE 71; RESP 19; TEMP 36.6
--- NOTE | 2021-09-23 15:07 | HMH.EDUTC ---
[facility] Disposition Clinical Impression: Encounter for laboratory testing for COVID-19 virus Disposition: Home, Self-Care Condition on Discharge: Good Instructions: DI for COVID-19 (Suspected or Confirmed ), Preventing the Spread of Coronavirus Discharge Instructions Additional Instructions: *Monitor Temp, Over the counter Motrin or Tylenol as directed/as needed Tylenol every 4 hours and Motrin every 6 hours (as long as your family doctor has told you that you can take it) for fever or pain. and straight to ER if unable to lower temp less than 101.0 after medication given Follow up IMMEDIATELY for new or worsening symptoms or no Noticeable improvement over the next 48-72 hours. 911 for difficulty breathing or swallowing You were tested for today for COVID19 your test result should be back in the next 24-48 hours, you may check your Results on [facility] My Health Portal Make sure to take your Vitamins Vit. C Vit D and Zinc if you can take them Referrals: Christopher Yadav MD [Primary Care Provider] - As needed Medical Decision Making - Carlos Inquiry Pt receiving controlled substance: No Carlos was queried for this patient: No Vital Signs: 09/23/21 14:32 Temperature 97.8 F Temperature Source Oral Pulse Rate [Left] 71 Respiratory Rate 19 Blood Pressure [Right Arm] 130/80 Blood Pressure Mean [Right Arm] 96 02 Sat by Pulse Oximetry 97 Orders (Tests/Meds): ORDERS Category Date Time Status Covid-19 Nasal PCR ([facility]) Routine Lab 09/23/21 14:46 Received [facility] HPI - General Stated complaint: covid test Time Seen by Provider: 09/23/21 14:45 Mode of Arrival: Ambulatory Source of Information: Patient Limitations: No Limitations Description of Symptoms (Recalled from Triage Doc. by RN): patient comes in for covid test. patient was exposed but is having no symptoms. HEENT Symptoms (Recalled from RN notes): No Resp Symptoms (Recalled from RN notes): No Skin Symptoms (Recalled from RN notes): No MS Symptoms (Recalled from RN notes): No Functional Status (Recalled from RN notes): n/a - History of Present Illness Provider Complaint: Patient states that he was around his brother that tested positive for COVID States that last night he had some chills and a little headache but not having any symptoms today - Related Data Home Medications Medication Instructions Recorded Confirmed clopidogrel 75 mg tablet PO 90 Days #90 03/22/17 07/22/21 aspirin 81 mg tablet,delayed 81 mg PO DAILY 10/19/18 07/22/21 release coenzyme Q10 100 mg capsule 100 mg PO DAILY 10/19/18 07/22/21 cyanocobalamin (vitamin B-12) 1,000 mcg PO DAILY 10/19/18 07/22/21 1,000 mcg capsule allopurinol 100 mg tablet 100 mg PO DAILY 90 Days #90 tab 11/27/18 07/22/21 amlodipine 5 mg tablet 5 mg PO DAILY 90 Days #90 tab 11/27/18 07/22/21 furosemide 20 mg tablet 20 mg PO BID #90 tab 11/27/18 07/22/21 polyethylene glycol 3350 17 17 g PO DAILY 11/27/18 07/22/21 gram/dose oral powder simvastatin 40 mg tablet 40 mg PO QPM 11/27/18 07/22/21 famotidine 20 mg tablet 20 mg PO DAILY tab 05/10/19 07/22/21 gabapentin 300 mg capsule 300 mg PO TID cap 05/10/19 07/22/21 insulin human U-100 NPH-regulr SQ 08/02/19 07/22/21 70-30 mix 100 unit/mL subcutaneous susp doxazosin 2 mg tablet 2 mg PO tab 01/04/20 07/22/21 hydrocodone 5 mg-acetaminophen 325 1 tab PO tab 01/04/20 07/22/21 mg tablet Allergies Allergy/AdvReac Type Severity Reaction Status Date / Time No Known Allergies Allergy Verified 07/22/21 10:44 - Worker's Comp Is this a Worker's Comp case?: No [facility] History - Hepatitis A Screen Attestation statement:: This patient has been screened for Hepatitis A risk factors. I have reviewed the patient's past medical history: Yes Medical History: Reports:: Anxiety, Coronary Artery Disease, Diabetes Mellitus Type 2, Hyperlipidemia, Hypertension, Renal Disease Other Medical History: Reports: Arthritis, Cataracts Comment: gout Other Surge
== END 2021-09-23 15:09 | disposition home or self-care (01) ==
LOC: UTC 14:32
PROVIDERS: Emergency Provider Nurse Practitioner; PCP Internal Medicine
DX: U07.1 COVID-19 (principal)
CPT/HCPCS: 99212; C9803; G0463; U0003; U0005

== ENCOUNTER → 2022-01-26 17:14 | Outpatient (CLI) | payer MEDICARE, BC, SELFPAY | PROVIDERS: Visit Provider Nurse Practitioner Family | DX: E11.42 Type 2 diabetes mellitus with diabetic polyneuropathy (principal); M79.675 Pain in left toe(s); B95.7 Other staphylococcus as the cause of diseases classified elsewhere; Z79.4 Long term (current) use of insulin | CPT/HCPCS: 87070; 87077; 87186; 87205 ==

== ENCOUNTER → 2022-03-31 11:53 | Outpatient (CLI) | payer MEDICARE, BC, SELFPAY ==
[2022-03-31 12:18] LABS: Microscopic, Urine URINE MICROSCOPIC (MICROSCOPIC)
[2022-03-31 13:26] LABS: Basophils % 0.5 % (0.1-2.0); Eosinophils % 0.5 % (0.1-12.0); Hematocrit 40.9 % (42.0-52.0); Hemoglobin 13.1 g/dL (14.1-18.0); Lymphocytes # 2.1 K/mm3 (0.7-4.5); Mean Corpuscular HGB Conc 32.1 g/dL (31.8-35.4); Mean Corpuscular Hemoglobin 32.9 pg (27.0-31.2); Mean Corpuscular Volume 102.6 fl (80-94); Mean Platelet Volume 8.3 fl (7.4-10.4); Monocytes # 0.5 K/mm3 (0.1-1.0); Neutrophils # 4.9 K/mm3 (1.8-7.8); Neutrophils % 64.9 % (37.0-80.0); Platelet Count 259 K/mm3 (142-424); Red Blood Count 3.98 M/mm3 (4.60-6.20); Red Cell Distribution Width 15.5 % (11.5-17.5); White Blood Count 7.5 K/mm3 (4.8-10.8)
[2022-03-31 13:49] LABS: Appearance,Urine CLEAR (Clear); Bilirubin,Urine Negative (Negative); Blood, Urine Negative (Negative); Color,Urine YELLOW (Yellow); Glucose,Urine (UA) Negative (Negative); Ketones,Urine Negative (Negative); Leukocyte Esterase,Urine Negative (Negative); Nitrate,Urine Negative (Negative); Protein,Urine Negative (Negative); Urobilinogen,Urine 0.2 EU/dl (0.2)
[2022-03-31 14:10] LABS: Albumin Level 4.5 g/dl (3.5-5.0); Anion Gap 10.4 mEq/L (5-15); Blood Urea Nitrogen 28 mg/dl (9-20); Calcium 8.5 mg/dl (8.4-10.2); Carbon Dioxide 32 mmol/L (22.0-30.0); Chloride 105 mmol/L (98-107); Estimated Glomerular Filt Rate 34 ml/min (>60); GFR (African American) 41 ML/MIN (>60); Glucose 91 mg/dl (74-100); Phosphorous 3.7 mg/dl (2.5-4.5); Potassium 4.4 mmoL/L (3.5-5.1); Sodium 143 mmol/L (136-145)
[2022-03-31 14:42] LABS: Squamous Epithelial Cell,Urine Occasional #/hpf (0-5); WBC,Urine Occasional #/hpf (0-3)
[2022-03-31 20:55] LABS: Creatinine,Urine Random 44 mg/dL (Not Estab.)
[2022-04-11 18:08] LABS: 1,25 Dihydroxy Vitamin D 34 pg/mL (.); 1,25-Dihydroxy, Vitamin D-2 <10 pg/mL (.); 1,25-Dihydroxy, Vitamin D-3 34 pg/mL (.)
== END ==
PROVIDERS: PCP Internal Medicine; Visit Provider Nurse Practitioner
DX: N18.32 Chronic kidney disease, stage 3b (principal); E55.9 Vitamin D deficiency, unspecified
CPT/HCPCS: 36415; 80069; 81001; 82570; 82652; 83970; 84155; 85025

== ENCOUNTER → 2022-06-03 09:01 | Outpatient (CLI) | payer MEDICARE, BC, SELFPAY ==
--- NOTE | 2022-06-03 09:16 | XR_ITS ---
FINAL REPORT CLINICAL HISTORY: 4th toe wound FINDINGS: LEFT FOOT Three views of the left foot were obtained. The 4th digit is held in flexion and is difficult to evaluate the distal 4th digit. There is no acute fracture or dislocation. There is old healed fracture deformity of the 3rd proximal phalanx. There is advanced hypertrophic changes of osteoarthritis at the 1st interphalangeal joint. On the lateral view, there is pes planus deformity. The soft tissues are unremarkable. IMPRESSION: Distal 4th digit is not well visualized. No acute bony abnormality visualized. Reviewed, Interpreted and Dictated by Oscar Joya MD Transcribed by Lisa Pereira Authenticated and [facility]
[2022-06-03 09:23] LABS: Basophils % 0.5 % (0.1-2.0); Eosinophils # 0.1 K/mm3 (0.0-0.4); Eosinophils % 0.9 % (0.1-12.0); Hematocrit 39.5 % (42.0-52.0); Lymphocytes # 1.7 K/mm3 (0.7-4.5); Mean Corpuscular HGB Conc 30.5 g/dL (31.8-35.4); Mean Corpuscular Hemoglobin 32.3 pg (27.0-31.2); Mean Corpuscular Volume 105.8 fl (80-94); Mean Platelet Volume 8.6 fl (7.4-10.4); Monocytes # 0.6 K/mm3 (0.1-1.0); Neutrophils # 5.7 K/mm3 (1.8-7.8); Neutrophils % 70.5 % (37.0-80.0); Platelet Count 254 K/mm3 (142-424); Red Blood Count 3.73 M/mm3 (4.60-6.20); Red Cell Distribution Width 15.9 % (11.5-17.5); White Blood Count 8.1 K/mm3 (4.8-10.8)
[2022-06-03 10:28] LABS: Alanine Aminotransferase 21 U/L (12-78); Albumin/Globulin Ratio 1.4 (1.1-1.8); Alkaline Phosphatase 114 U/L (38-126); Anion Gap 13.4 mEq/L (5-15); Aspartate Amino Transferase 28 U/L (17-59); Bilirubin,Total 0.3 mg/dl (0.2-1.3); Blood Urea Nitrogen 31 mg/dl (9-20); Calcium 8.2 mg/dl (8.4-10.2); Carbon Dioxide 31 mmol/L (22.0-30.0); Chloride 102 mmol/L (98-107); Estimated Glomerular Filt Rate 34 ml/min (>60); GFR (African American) 41 ML/MIN (>60); Globulin 2.8 g/dL (1.3-3.2); Glucose 148 mg/dl (74-100); Potassium 4.4 mmoL/L (3.5-5.1); Sodium 142 mmol/L (136-145); Total Protein,Serum 6.8 g/dl (6.3-8.2)
[2022-06-03 10:34] LABS: C-Reactive Protein 65.6 mg/L (0-4)
[2022-06-03 11:30] LABS: Erythrocyte Sedimentation Rate 94 mm/hr (0-20)
[2022-06-04 11:32] LABS: Hemoglobin A1C 9.6 % (4.0-6.0)
== END ==
PROVIDERS: PCP Internal Medicine; Visit Provider Podiatrist
DX: L84 Corns and callosities; E11.621 Type 2 diabetes mellitus with foot ulcer; L97.529 Non-pressure chronic ulcer of other part of left foot with unspecified severity; L97.522 Non-pressure chronic ulcer of other part of left foot with fat layer exposed; Z79.4 Long term (current) use of insulin
CPT/HCPCS: 36415; 73630; 80053; 83036; 85025; 85651; 86140; 87070; 87077; 87186; 87205

== ENCOUNTER → 2022-06-11 10:07 | Outpatient (CLI) | payer MEDICARE, BC, SELFPAY ==
--- NOTE | 2022-06-11 10:07 | MR_ITS ---
FINAL REPORT CLINICAL HISTORY: Left foot pain great toe pain , prior sx to great toe patient stated 4th digit is infected x 1 month FINDINGS: Multiplanar MR imaging of the left foot was performed without contrast. Motion artifact is identified on many of the images. There are mild degenerative changes. There is severe deformity of the 1st interphalangeal joint. There is abnormal T1 and T2 signal of the 4th distal phalanx. The appearance is most worrisome for osteomyelitis. Note is made of pes planus deformity. The bony structures are intact without evidence of fracture. The flexor and extensor tendons are intact. No ligamentous injury is identified. The musculature is intact. The plantar aponeurosis is intact. No soft tissue mass or cyst is identified. IMPRESSION: Findings most worrisome for osteomyelitis of the 4th distal phalanx. Severe deformity of the 1st interphalangeal joint. Reviewed, Interpreted and Dictated by Juan Liao III, MD Transcribed by Valerie Crespo Authenticated and [facility]
== END ==
PROVIDERS: PCP Internal Medicine; Visit Provider Nurse Practitioner Family
DX: E11.621 Type 2 diabetes mellitus with foot ulcer (principal); M79.672 Pain in left foot; L97.529 Non-pressure chronic ulcer of other part of left foot with unspecified severity
CPT/HCPCS: 73718

== ENCOUNTER 2022-06-14 17:11 | Outpatient (RCR) | payer MEDICARE, BC, SELFPAY | END 2022-06-14 18:00 | disposition home or self-care (01) | LOC: PT 17:11 | PROVIDERS: Visit Provider Podiatrist | DX: L03.116 Cellulitis of left lower limb (principal) | CPT/HCPCS: 97760 ==

== ENCOUNTER → 2022-06-15 09:44 | Outpatient (CLI) | payer MEDICARE, BC, SELFPAY ==
--- NOTE | 2022-06-15 09:48 | US_ITS ---
FINAL REPORT CLINICAL HISTORY: pre-op 4th toe amputation, previous smoker, HTN, DM, hyperlipidemia, CAD. FINDINGS: COMPLETE ANKLE/BRACHIAL INDICES BILATERAL Complete ankle brachial indices were obtained. The right BLANKA is 1.4. The left BLANKA is 1.1. IMPRESSION: ABIs are within normal limits bilaterally. Reviewed, Interpreted and Dictated by Juan Liao III, MD Transcribed by Valerie Crespo Authenticated and [facility]
--- NOTE | 2022-06-15 16:07 | XR_ITS ---
FINAL REPORT TECHNIQUE: Chest PA & Lateral CLINICAL HISTORY: pre-op for foot surgery in the morning. No chest symptoms at this time. FINDINGS: 2 views of the chest were performed. The heart size is normal. The mediastinum is within normal limits. There is no acute cardiopulmonary process. There are no pleural effusions. There is no pneumothorax. There is moderate degenerative change of the thoracic spine. IMPRESSION: No acute cardiopulmonary process. Reviewed, Interpreted and Dictated by Juan Liao III, MD Transcribed by Cyrus Hathaway Authenticated and [facility]
[2022-06-15 16:21] LABS: Basophils % 0.3 % (0.1-2.0); Eosinophils % 0.4 % (0.1-12.0); Hematocrit 39.5 % (42.0-52.0); Hemoglobin 12.5 g/dL (14.1-18.0); Lymphocytes # 2.4 K/mm3 (0.7-4.5); Lymphocytes % 25.9 % (10-50); Mean Corpuscular HGB Conc 31.6 g/dL (31.8-35.4); Mean Corpuscular Hemoglobin 32.5 pg (27.0-31.2); Mean Corpuscular Volume 102.7 fl (80-94); Mean Platelet Volume 8.6 fl (7.4-10.4); Monocytes # 0.6 K/mm3 (0.1-1.0); Monocytes % 6.2 % (1.7-9.3); Neutrophils # 6.3 K/mm3 (1.8-7.8); Neutrophils % 67.2 % (37.0-80.0); Platelet Count 236 K/mm3 (142-424); Red Blood Count 3.85 M/mm3 (4.60-6.20); Red Cell Distribution Width 15.8 % (11.5-17.5); White Blood Count 9.4 K/mm3 (4.8-10.8)
--- NOTE | 2022-06-15 16:33 | ECG_ITS ---
APPROVED REPORT Exam: Resting ECG HR:84 bpm ECG Measurements Heart Rate 84 AXES TX 258 P 81 QRSd 114 QRS 56 QT 373 T 47 QTc 414 Conclusion SINUS RHYTHM WITH FIRST DEGREE AV BLOCK LOW QRS VOLTAGE IN PRECORDIAL LEADS [QRS DEFLECTION < 1.0 mV IN CHEST LEADS] MODERATE INTRAVENTRICULAR CONDUCTION DELAY [110+ ms QRS DURATION] ABNORMAL ECG UNCONFIRMED REPORT Electronically signed by : Jamil Byrne MD 06/18/2022 14:32:32
[2022-06-15 16:46] LABS: Alanine Aminotransferase 19 U/L (12-78); Albumin/Globulin Ratio 1.3 (1.1-1.8); Alkaline Phosphatase 112 U/L (38-126); Anion Gap 11.7 mEq/L (5-15); Aspartate Amino Transferase 27 U/L (17-59); Bilirubin,Total 0.5 mg/dl (0.2-1.3); Blood Urea Nitrogen 38 mg/dl (9-20); Calcium 8.6 mg/dl (8.4-10.2); Carbon Dioxide 31 mmol/L (22.0-30.0); Chloride 102 mmol/L (98-107); Estimated Glomerular Filt Rate 36 ml/min (>60); GFR (African American) 44 ML/MIN (>60); Globulin 3.1 g/dL (1.3-3.2); Glucose 132 mg/dl (74-100); Potassium 4.7 mmoL/L (3.5-5.1); Sodium 140 mmol/L (136-145); Total Protein,Serum 7.1 g/dl (6.3-8.2)
[2022-06-15 16:51] LABS: C-Reactive Protein 15.5 mg/L (0-4)
[2022-06-15 18:04] LABS: Erythrocyte Sedimentation Rate 66 mm/hr (0-20)
== END ==
PROVIDERS: PCP Internal Medicine; Visit Provider Podiatrist
DX: I73.9 Peripheral vascular disease, unspecified (principal); E11.621 Type 2 diabetes mellitus with foot ulcer; L03.116 Cellulitis of left lower limb; L97.522 Non-pressure chronic ulcer of other part of left foot with fat layer exposed; R60.0 Localized edema; Z79.4 Long term (current) use of insulin
CPT/HCPCS: 36415; 71046; 80053; 85025; 85651; 86140; 93005; 93923

== ENCOUNTER 2022-06-16 06:05 | Day surgery (SDC) | payer MEDICARE, BC, SELFPAY ==
[2022-06-16] VITALS (7 sets, daily range): BP systolic 131–156; BP diastolic 61–74; PULSE 59–71; RESP 17–18; TEMP 36.1–43; O2SAT 96–98; BMI 37.3
[2022-06-16 07:06] LABS: POC Glucose,Bedside 135 (70-110)
--- NOTE | 2022-06-16 08:20 | XR_ITS ---
FINAL REPORT CLINICAL HISTORY: Post op toe amp COMPARISON: 06/03/2022 FINDINGS: LEFT FOOT Three views of the left foot were obtained. There has been interval postoperative changes from amputation of the 4th digit at the PIP joint and probable tip of the 5th digit. A presumed bandage obscures detail and this area. There is severe degenerative change of the 1st interphalangeal joint with lateral angulation of the distal great toe. There is mild and moderate degenerative changes elsewhere in the foot. There is pes planus deformity. IMPRESSION: Postoperative and degenerative changes as above. Reviewed, Interpreted and Dictated by Juan Liao III, MD Transcribed by Lisa Pereira Authenticated and [facility]
--- NOTE | 2022-06-16 08:21 | EXP.OP.NOTE ---
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 Patient has been getting conservative care including local wound care, oral antibiotics, weekly debridements and offloading.?Recent imaging including x-rays and MRI show osteomyelitis. We discussed conservative versus surgical treatment options. Conservative treatment options include local wound care, oral and IV antibiotics, change in shoe wear, taping/padding, and off-loading. We discussed surgical intervention for amputation of the left fourth toe.? MRI inconclusive for osteomyelitis of the hallux, discussed doing bone biopsy. Patient understands that there is a chance that the toes can migrate to fill the gap or the foot may change shape after surgery.? Patient also understands that they could have wound healing complications including delayed healing and infection. We discussed that if the wound does not heal, it is possible that they may need a more proximal amputation and could result in further loss of digits, loss of partial foot or loss of leg. We discussed the risks and benefits in great detail. Other surgical risks include: prolonged pain and swelling, further infection requiring oral or IV antibiotics, delay in healing of soft tissue or bone, nerve or blood vessel damage, CRPS/RSD, DVT, anesthesia complications, and even . All questions answered. Patient verbalized understanding. Consent obtained. Called Dr. Jackson, cardiology office. Plan to stop Plavix and aspirin until 06/17/22. Operative findings:: Left hallux contracture noted. Ulcer noted to the medial plantar aspect of the great toe. Sharp excisional debridement full-thickness through skin and subcutaneous tissue. Post debridement: 100% granular, mild bleeding noted, wound measured 0.4 x 0.2 x 0.2 cm. No purulence malodor or drainage. Bone biopsy taken from the distal phalanx, bone hard with no signs of purulence or obvious osteomyelitis. Left fourth toe distal ulceration 1.0? x 0.4 x 0.2 cm, with purulent drainage noted. Left fourth toe distal phalanx bone soft and crumbly. Middle phalanx had some cortical erosions and was hard. Proximal phalanx head intact with no obvious cortical erosion or signs of infection tracking proximally. Operative note:: On this date and time patient was deemed an appropriate surgical candidate. With informed consent signed, the patient was taken to the operating theater room. The patient was positioned supine. MAC anesthesia was induced. No tourniquet used. IV Vanco 1g given. The left lower extremity was prepped and draped in normal sterile fashion. Left foot open bone biospy: A stab incision was made over the medial aspect of the hallux interphalangeal joint. A Jamshidi needle was used and inserted at the level of the distal phalanx medially. A piece of the bone was taken and sent for bone pathology and bone culture. The bone was hard and there is no obvious signs of purulence or osteomyelitis. Wound was flushed with antibiotics and biopsy site closed with Prolene. Left foot wound debridement: Attention was directed to the distal medial plantar great toe where an ulcer was noted. See operative findings for measurements. There was mild periwound maceration. The skin edges were debrided with 15' blade, some bleeding noted. The wound was sharply excisionally debrided with 15 blade forceps full-thickness through skin, subcutaneous tissue. All nonviable fibrotic scar tissue, nonviable tissue and biofilm was debrided. Post debridement, there was some bleeding was noted. Gra
--- NOTE | 2022-06-16 08:26 | EXP.ANES.CKL ---
[facility] Disclaimer: The information contained in this section may have been updated after the patient was seen, as this information can be updated by other users. Medical History Anxiety Coronary artery disease Edema Encounter for dialysis History of cataract History of COVID-19 HLD (hyperlipidemia) HTN (hypertension), benign Renal disease T2DM (type 2 diabetes mellitus) Tear of retina Surgical History History of coronary artery stent placement History of surgery Hx of cardiac cath Hx of cataract surgery Hx of colonoscopy Family History Other Diabetes Heart attack Social History Smoking Status: Former smoker pack-years: 20 alcohol intake: never substance use type: denies use current occupational status: retired Travel in the last 8 weeks: None [facility] Anesthesia Checklist Patient Identification Patient Identification: Arm Band and Family Structural Data Admitted From: Home Planned Operative Procedure/s: Left fourth toe Amputation. foot debriedment. Bone Biopsy Consent for Planned Operative Procedure(s) Verified: Yes Verified Documents: Surgical Consent and History and Physical NPO Status Verified Time NPO: 00:00 Additional verifications Patient : No Anesthesia Reactions: No Hx Blood Transfusions: No Blood Transfusion Reaction: No Cephalosporin Allergy: No Previous Colonoscopy: No Airway Assessment C-Spine Mobility Assessed: Yes TMJ Mobility Assessed: Yes Dentition: Edentulous Neurological Assessment Level of Consciousness: Awake, Alert, Appropriate and Follows Commands Hx Seizures: No Numbness or tingling in extremities: No Anesthesia Plan Anesthesia Risk discussed: Yes ASA Class: III Anesthesia Type: MAC Preoperative Comments Pre-Operative Comments: Cardiac stent 8 years ago. Dialysis X2. elevated BUN and Creatinine. IDDM.
--- NOTE | 2022-06-16 08:43 | SUR.OPER ---
0759- Called to preop and had MARIA D Mccormick update family of patients and procedures current status.
== END 2022-06-16 09:15 | disposition home or self-care (01) ==
PROVIDERS: PCP Internal Medicine; Visit Provider Podiatrist
DX: E11.52 Type 2 diabetes mellitus with diabetic peripheral angiopathy with gangrene (principal); E11.621 Type 2 diabetes mellitus with foot ulcer; I96 Gangrene, not elsewhere classified; E11.42 Type 2 diabetes mellitus with diabetic polyneuropathy; Z79.4 Long term (current) use of insulin; Z79.01 Long term (current) use of anticoagulants; Z87.891 Personal history of nicotine dependence; L03.116 Cellulitis of left lower limb; L97.522 Non-pressure chronic ulcer of other part of left foot with fat layer exposed; Z79.899 Other long term (current) drug therapy
CPT/HCPCS: 11042; 20220; 28825; 73630; 82962; 87077; 87186; 88304; 88305; 88311; 96374; J2704; J3370

== ENCOUNTER → 2022-06-29 13:10 | Outpatient (CLI) | payer MEDICARE, BC, SELFPAY ==
[2022-06-29 13:46] LABS: Basophils % 0.3 % (0.1-2.0); Eosinophils # 0.2 K/mm3 (0.0-0.4); Hemoglobin 13.1 g/dL (14.1-18.0); Lymphocytes # 2.4 K/mm3 (0.7-4.5); Lymphocytes % 28.7 % (10-50); Mean Corpuscular HGB Conc 32.7 g/dL (31.8-35.4); Mean Corpuscular Hemoglobin 32.9 pg (27.0-31.2); Mean Corpuscular Volume 100.6 fl (80-94); Monocytes # 0.6 K/mm3 (0.1-1.0); Monocytes % 6.9 % (1.7-9.3); Neutrophils # 5.2 K/mm3 (1.8-7.8); Neutrophils % 62.2 % (37.0-80.0); Platelet Count 212 K/mm3 (142-424); Red Blood Count 3.97 M/mm3 (4.60-6.20); Red Cell Distribution Width 15.6 % (11.5-17.5); White Blood Count 8.4 K/mm3 (4.8-10.8)
[2022-06-29 14:04] LABS: Chloride 95 mmol/L (98-107); Potassium 4.4 mmoL/L (3.5-5.1); Sodium 139 mmol/L (136-145)
[2022-06-29 14:06] LABS: Blood Urea Nitrogen 27 mg/dl (9-20); Estimated Glomerular Filt Rate 36 ml/min (>60); GFR (African American) 44 ML/MIN (>60)
[2022-06-29 14:07] LABS: Alanine Aminotransferase 28 U/L (12-78); Albumin Level 4.1 g/dl (3.5-5.0); Albumin/Globulin Ratio 1.3 (1.1-1.8); Alkaline Phosphatase 116 U/L (38-126); Anion Gap 16.4 mEq/L (5-15); Aspartate Amino Transferase 34 U/L (17-59); Bilirubin,Total 0.3 mg/dl (0.2-1.3); Calcium 8.8 mg/dl (8.4-10.2); Carbon Dioxide 32 mmol/L (22.0-30.0); Globulin 3.1 g/dL (1.3-3.2); Glucose 120 mg/dl (74-100); Total Protein,Serum 7.2 g/dl (6.3-8.2)
[2022-06-29 14:16] LABS: C-Reactive Protein 25.7 mg/L (0-4)
[2022-06-29 17:21] LABS: Erythrocyte Sedimentation Rate 66 mm/hr (0-20)
== END ==
PROVIDERS: PCP Internal Medicine; Visit Provider Podiatrist
DX: E11.621 Type 2 diabetes mellitus with foot ulcer (principal); L97.522 Non-pressure chronic ulcer of other part of left foot with fat layer exposed; Z98.890 Other specified postprocedural states
CPT/HCPCS: 36415; 80053; 85025; 85651; 86140

== ENCOUNTER → 2022-07-06 11:25 | Outpatient (CLI) | payer MEDICARE, BC, SELFPAY ==
[2022-07-06 11:35] LABS: Microscopic, Urine URINE MICROSCOPIC (MICROSCOPIC)
[2022-07-06 12:50] LABS: Appearance,Urine CLEAR (Clear); Bilirubin,Urine Negative (Negative); Blood, Urine Negative (Negative); Color,Urine YELLOW (Yellow); Glucose,Urine (UA) Negative (Negative); Ketones,Urine Negative (Negative); Leukocyte Esterase,Urine Negative (Negative); Nitrate,Urine Negative (Negative); Protein,Urine Negative (Negative); Urobilinogen,Urine 0.2 EU/dl (0.2)
[2022-07-06 12:52] LABS: Albumin Level 4.2 g/dl (3.5-5.0); Anion Gap 18.4 mEq/L (5-15); Blood Urea Nitrogen 37 mg/dl (9-20); Calcium 8.9 mg/dl (8.4-10.2); Carbon Dioxide 29 mmol/L (22.0-30.0); Chloride 94 mmol/L (98-107); Estimated Glomerular Filt Rate 26 ml/min (>60); GFR (African American) 31 ML/MIN (>60); Glucose 137 mg/dl (74-100); Phosphorous 4.2 mg/dl (2.5-4.5); Potassium 4.4 mmoL/L (3.5-5.1); Sodium 137 mmol/L (136-145); Uric Acid 7.4 mg/dl (3.5-8.5)
[2022-07-06 12:56] LABS: Creatinine,Urine Random 61 mg/dL (Not Estab.)
[2022-07-06 13:07] LABS: Hyaline Casts,Urine Occasional #/lpf (0)
== END ==
PROVIDERS: PCP Internal Medicine; Visit Provider Internal Medicine Nephrology
DX: N18.32 Chronic kidney disease, stage 3b (principal)
CPT/HCPCS: 36415; 80069; 81001; 82570; 84155; 84550

== ENCOUNTER → 2022-08-10 10:58 | Outpatient (CLI) | payer MEDICARE, BC, SELFPAY ==
[2022-08-10 11:07] LABS: Microscopic, Urine URINE MICROSCOPIC (MICROSCOPIC)
[2022-08-10 12:05] LABS: Basophils % 0.4 % (0.1-2.0); Eosinophils # 0.1 K/mm3 (0.0-0.4); Eosinophils % 0.8 % (0.1-12.0); Hematocrit 41.8 % (42.0-52.0); Hemoglobin 13.1 g/dL (14.1-18.0); Lymphocytes # 2.3 K/mm3 (0.7-4.5); Lymphocytes % 29.7 % (10-50); Mean Corpuscular HGB Conc 31.2 g/dL (31.8-35.4); Mean Corpuscular Hemoglobin 32.4 pg (27.0-31.2); Mean Corpuscular Volume 103.8 fl (80-94); Mean Platelet Volume 8.5 fl (7.4-10.4); Monocytes # 0.5 K/mm3 (0.1-1.0); Monocytes % 6.6 % (1.7-9.3); Neutrophils # 4.9 K/mm3 (1.8-7.8); Neutrophils % 62.6 % (37.0-80.0); Platelet Count 239 K/mm3 (142-424); Red Blood Count 4.03 M/mm3 (4.60-6.20); Red Cell Distribution Width 16.1 % (11.5-17.5); White Blood Count 7.9 K/mm3 (4.8-10.8)
[2022-08-10 12:17] LABS: Appearance,Urine CLEAR (Clear); Blood, Urine Negative (Negative); Color,Urine YELLOW (Yellow); Glucose,Urine (UA) Negative (Negative); Ketones,Urine Negative (Negative); Leukocyte Esterase,Urine Negative (Negative); Nitrate,Urine Negative (Negative); PH,Urine 5.5 (5.0-8.5); Protein,Urine Negative (Negative); Urobilinogen,Urine 0.2 EU/dl (0.2)
[2022-08-10 12:27] LABS: Bilirubin,Urine 1+ (Negative)
[2022-08-10 12:41] LABS: Bacteria,Urine Trace /lpf; RBC,Urine Occasional #/hpf (0-3); Squamous Epithelial Cell,Urine Occasional #/hpf (0-5)
[2022-08-10 12:42] LABS: Albumin Level 4.4 g/dl (3.5-5.0); Anion Gap 17.7 mEq/L (5-15); Blood Urea Nitrogen 28 mg/dl (9-20); Calcium 8.5 mg/dl (8.4-10.2); Carbon Dioxide 29 mmol/L (22.0-30.0); Chloride 102 mmol/L (98-107); Creatinine,Urine Random 62 mg/dL (Not Estab.); Estimated Glomerular Filt Rate 36 ml/min (>60); GFR (African American) 44 ML/MIN (>60); Glucose 123 mg/dl (74-100); Phosphorous 3.6 mg/dl (2.5-4.5); Potassium 4.7 mmoL/L (3.5-5.1); Sodium 144 mmol/L (136-145); Uric Acid 6.1 mg/dl (3.5-8.5)
[2022-08-18 05:19] LABS: 1,25 Dihydroxy Vitamin D 24 pg/mL (.); 1,25-Dihydroxy, Vitamin D-2 <10 pg/mL (.); 1,25-Dihydroxy, Vitamin D-3 24 pg/mL (.)
== END ==
PROVIDERS: PCP Internal Medicine; Visit Provider Hospitalist
DX: N18.32 Chronic kidney disease, stage 3b (principal)
CPT/HCPCS: 36415; 80069; 81001; 82570; 82652; 84155; 84550; 85025

== ENCOUNTER → 2022-11-23 10:15 | Outpatient (CLI) | payer MEDICARE, BC, SELFPAY ==
--- NOTE | 2022-11-23 10:19 | MR_ITS ---
FINAL REPORT TECHNIQUE: Multiplanar and multisequence imaging of the lumbar spine was obtained without contrast. CLINICAL HISTORY: LUMBAGO WITH SCIATICA left hip pain left sided lower back tenderness COMPARISON: 01/02/2019 FINDINGS: There is normal alignment of the lumbar vertebral bodies. Vertebral body height is preserved. The spinal cord ends at the level of L1. There is normal signal intensity within the substance of the distal spinal cord. No acute bone marrow edema or pathologic marrow replacement. No acute paraspinal abnormality is identified. There are bilateral small renal cysts. L1-2: An annular disc bulge is present with degenerative endplate changes and facet osteoarthropathy. There is mild central stenosis and moderate bilateral neural foraminal narrowing. L2-3: An annular disc bulge is present with degenerative endplate changes and facet osteoarthropathy. There is moderate central stenosis and moderate to severe bilateral neural foraminal narrowing. L3-4: An annular disc bulge is present with degenerative endplate changes and facet osteoarthropathy. There is moderate bilateral neural foraminal narrowing. L4-5: An annular disc bulge is present with degenerative endplate changes and facet osteoarthropathy. There is severe central stenosis and bilateral neural foraminal narrowing. L5-S1: An annular disc bulge is present with degenerative endplate changes and facet osteoarthropathy with superimposed central protrusion. There is moderate central stenosis. There is severe bilateral neural foraminal narrowing, left greater than right. IMPRESSION: Multilevel degenerative disc disease, most pronounced at L4-5 and L5-S1. Findings have progressed since previous. Reviewed, Interpreted and Dictated by Lacey Marie MD Transcribed by Valerie Crespo Authenticated and [facility]
== END ==
PROVIDERS: PCP Internal Medicine; Visit Provider Internal Medicine
DX: M54.42 Lumbago with sciatica, left side (principal)
CPT/HCPCS: 72148; 76376

== ENCOUNTER 2023-05-10 12:07 | Outpatient (CLI) | payer MEDICARE, BC, SELFPAY ==
[2023-05-10 12:15] LABS: Microscopic, Urine URINE MICROSCOPIC (MICROSCOPIC)
[2023-05-10 12:45] LABS: Appearance,Urine CLEAR (Clear); Bilirubin,Urine Negative (Negative); Blood, Urine Negative (Negative); Color,Urine YELLOW (Yellow); Glucose,Urine (UA) Negative (Negative); Ketones,Urine Negative (Negative); Leukocyte Esterase,Urine Negative (Negative); Nitrate,Urine Negative (Negative); PH,Urine 5.5 (5.0-8.5); Protein,Urine Negative (Negative); Specific Gravity, Urine 1.025 (1.005-1.030); Urobilinogen,Urine 0.2 EU/dl (0.2)
[2023-05-10 13:10] LABS: Albumin Level 4.4 g/dl (3.5-5.0); Anion Gap 12.8 mEq/L (5-15); Blood Urea Nitrogen 40 mg/dl (9-20); Calcium 9.1 mg/dl (8.4-10.2); Carbon Dioxide 28 mmol/L (22.0-30.0); Chloride 105 mmol/L (98-107); Estimated Glomerular Filt Rate 39 ml/min (>60); GFR (African American) 47 ML/MIN (>60); Glucose 88 mg/dl (74-100); Phosphorous 4.6 mg/dl (2.5-4.5); Potassium 4.8 mmoL/L (3.5-5.1); Sodium 141 mmol/L (136-145)
[2023-05-10 13:25] LABS: 25-OH Vitamin D, Total 73.1 ng/mL (30-100)
[2023-05-10 13:49] LABS: Bacteria,Urine Trace /lpf; Mucus,Urine Trace /lpf; RBC,Urine Occasional #/hpf (0-3); WBC,Urine Occasional #/hpf (0-3)
== END 2023-05-10 23:59 ==
PROVIDERS: PCP Internal Medicine; Visit Provider Internal Medicine Nephrology
DX: E55.9 Vitamin D deficiency, unspecified (principal); N18.32 Chronic kidney disease, stage 3b; Z68.37 Body mass index [BMI] 37.0-37.9, adult
CPT/HCPCS: 36415; 80069; 81001; 82306; 83970

== ENCOUNTER 2023-05-24 11:00 | Outpatient (RCR) | payer MEDICARE, BC, SELFPAY | END 2023-05-26 17:00 | disposition home or self-care (01) | LOC: PT 11:00 | PROVIDERS: PCP Internal Medicine; Visit Provider Orthopaedic Surgery | DX: M25.552 Pain in left hip (principal); Z96.642 Presence of left artificial hip joint | CPT/HCPCS: 97010; 97110; 97116; 97163; 97164; 97530 ==

== ENCOUNTER 2023-07-15 10:34 | Outpatient (CLI) | payer MEDICARE, BC, SELFPAY ==
--- NOTE | 2023-07-15 10:40 | US_ITS ---
FINAL REPORT CLINICAL HISTORY: INCOMPLETE BLADDER EMPTYING FINDINGS: The right kidney measures 9.6 cm in length. It is normal in echogenicity. There is no hydronephrosis. The left kidney measures 9.5 cm in length. It is normal in echogenicity. There is no hydronephrosis. There is a 2.6 cm left renal cyst. The spleen is unremarkable. IMPRESSION: Left renal cyst. Reviewed, Interpreted and Dictated by Juan Liao III, MD Transcribed by Valerie Crespo Authenticated and . [facility]
[2023-07-15 14:06] LABS: Prostate Specific Ag Screen 32.2 ng/ml (0.0-4.0)
== END 2023-07-15 23:59 | disposition home or self-care (01) ==
LOC: RAD 10:35
PROVIDERS: PCP Internal Medicine; Visit Provider Urology
DX: R33.9 Retention of urine, unspecified (principal); R97.20 Elevated prostate specific antigen [PSA]; Z12.5 Encounter for screening for malignant neoplasm of prostate
CPT/HCPCS: 36415; 76770; G0103

== ENCOUNTER 2023-12-28 14:33 | Observation (INO) | payer MEDICARE, BC, SELFPAY ==
[2023-12-28] VITALS (13 sets, daily range): BP systolic 143–159; BP diastolic 56–76; PULSE 78–98; RESP 17–20; TEMP 36.8–37.9; O2SAT 91–97; BMI 37.5; BMI 36.6
--- NOTE | 2023-12-28 14:07 | ED_ITS ---
<Statement entered by Denise Linton DO - 12/29/23 01:00> I was consulted by the CARL, and we discussed the complexity of the problems being addressed. I approved the treatment and management plan for this patient's care in the emergency department, thus performing a substantive portion of the medical decision making. Denise Linton DO Discharge Plan Disposition Patient Disposition: Xfer Short-Term Hosp Condition: Serious Prescriptions Prescriptions: No Action aspirin [Adult Low Dose Aspirin] 81 mg tablet,delayed release (DR/EC) 81 mg PO DAILY cyanocobalamin (vitamin B-12) 1,000 mcg capsule 1,000 mcg PO DAILY coenzyme Q10 100 mg capsule 100 mg PO DAILY furosemide 20 mg tablet 20 mg PO BID Qty: 90 Patient Comments: TAKE 1 TABLET BY MOUTH ONE IN THE MORNING AND ONE AT BEDTIME polyethylene glycol 3350 [Miralax] 17 gram/dose powder 17 g PO DAILY Novolin 70/30 U-100 Insulin 100 unit/mL (70-30) suspension 32 unit SQ BID Patient Comments: INJECT 58 UNITS UNDER THE SKIN IN THE MORNING WITH BREAKFAST THEN 52 UNITS WITH SUPPER prednisone 5 mg tablet 5 mg PO DAILY calcitriol 0.25 mcg capsule 0.25 mcg PO DAILY Patient Comments: TAKE 1 CAPSULE BY MOUTH ON TUESDAY, TUESDAY AND TUESDAY abiraterone 250 mg tablet 250 mg PO ONCE amlodipine 5 mg tablet 5 mg PO BID 90 Days Qty: 180 1RF gabapentin 300 mg capsule 300 mg PO TID Qty: 90 2RF simvastatin 40 mg tablet 40 mg PO QPM Qty: 90 1RF hydralazine 10 mg tablet 10 mg PO BID Qty: 180 1RF tamsulosin 0.4 mg capsule 0.4 mg PO ONCE Qty: 90 1RF allopurinol 100 mg tablet 100 mg PO BID 90 Days Qty: 90 1RF famotidine 20 mg tablet 20 mg PO DAILY Qty: 90 1RF clopidogrel 75 mg tablet 75 mg PO DAILY 90 Days Qty: 90 1RF cholecalciferol (vitamin D3) [Vitamin D3] 50 mcg (2,000 unit) Capsule 50 mcg PO DAILY diphenhydramine HCl 50 mg capsule 50 mg PO HS Referrals Follow up/Referrals: Christopher Yadav MD [Primary Care Provider] - See instructions Clinical Impressions Clinical Impression: Sepsis without septic shock, Immunosuppressed status, Elevated brain natriuretic peptide (BNP) level, Fever of unknown origin (FUO) Print Language Print Language: Nicaraguan Discharge ED Provider: Denise Linton General Adult HPI General Chief complaint: Weakness Stated complaint: weakness Time Seen by Provider: 12/28/23 14:34 History of Present Illness HPI narrative: Patient presents for evaluation of weakness. Patient has a complex medical history however the most pertinent is is that he has metastatic prostate cancer and is currently being treated with oral chemotherapy and steroids. His urologist is Dr. Jean-Pierre Mata in [place] and so is his oncologist Dr. Serra in [place]. He also has a cardiovascular history with previous stent placement and follows with Dr. Jackson at [facility]. Most recently he has had problems with bladder outlet obstruction and has had chronic indwelling Connell however they have attempted to DC that twice the most recent being approximately a week ago. He has had inability to urinate and hence his Connell catheter was replaced by Dr. Mata yesterday. This morning patient woke up with feeling poorly too weak to walk and malaise. Additionally patient reports that he has longstanding dependent edema in his bilateral lower extremities that predate his prostate cancer. They had been doing well for a long time but since the problems with the bladder out obstruction has gotten significantly worse. He reports that his legs hurt more as well especially attempting to ambulate. He denies chest pain shortness of breath hemoptysis hematochezia melena nausea vomiting diarrhea however they report a fever at home. Patient had a temperature of 98.3 on arrival. Related Data Home Medications ?Medication ?Instructions ?Recorded ?Confirmed aspirin 81 mg tablet,delayed 81 mg PO DAILY [facility] 10/19/18 12/28/23 release (Adult Low Dose Aspirin) coenzyme Q10 100 mg capsule 100 mg PO DAILY Supplement 10/19/18 10/18/23 cyanocobalamin (vitamin B-12) 1,000 mcg PO DAILY Supplement 10/19/18 10/18/23 1,000 mcg capsule furosemide 20 mg tablet 20 mg PO BID Fluid #90 tabs 11/27/18 12/28/23 polyethylene glycol 3350 17 17 g PO DAILY . 11/27/18 10/18/23 gram/dose oral powder (Miralax) insulin human U-100 NPH-regulr 32 unit SQ BID Diabetes 08/02/19 12/28/23 70-30 mix 100 unit/mL subcutaneous susp (Novolin 70/30 U-100 Insulin) cholecalciferol (vitamin D3) 50 50 mcg PO DAILY Supplement 06/15/22 10/18/23 mcg (2,000 unit) capsule (Vitamin D3) abiraterone 250 mg tablet 250 mg PO ONCE 10/18/23 12/28/23 calcitriol 0.25 mcg capsule 0.25 mcg PO DAILY 10/18/23 12/28/23 diphenhydramine HCl 50 mg capsule 50 mg PO HS . 10/18/23 10/18/23 prednisone 5 mg tablet 5 mg PO DAILY 10/18/23 12/28/23 Previous Rx's ?Medication ?Instructions ?Recorded amlodipine 5 mg tablet 5 mg PO BID BP 90 days #180 tabs 09/12/23 gabapentin 300 mg capsule 300 mg PO TID Pain #90 caps 10/04/23 simvastatin 40 mg tablet 40 mg PO QPM Cholesterol #90 tabs 10/24/23 hydralazine 10 mg tablet 10 mg PO BID #180 tabs 10/28/23 tamsulosin 0.4 mg capsule 0.4 mg PO ONCE #90 caps 11/04/23 allopurinol 100 mg tablet 100 mg PO BID GOUT 90 days #90 tabs 11/11/23 clopidogrel 75 mg tablet 75 mg PO DAILY Blood thinner 90 12/09/23 days #90 tabs famotidine 20 mg tablet 20 mg PO DAILY . #90 tabs 12/09/23 Allergies Allergy/AdvReac Type Severity Reaction Status Date / Time No Known Allergies Allergy Verified 10/18/23 11:28 [facility] Disclaimer: The information contained in this section may have been updated after the patient was seen, as this information can be updated by other users. Medical History Encounter for dialysis DIALYSIS X2 IN PAST Tear of retina RIGHT History of COVID-19 History of cataract Edema BLE Renal disease HTN (hypertension), benign HLD (hyperlipidemia) T2DM (type 2 diabetes mellitus) Coronary artery disease Anxiety Surgical History Hx of cataract surgery Hx of colonoscopy History of surgery JAW SX History of coronary artery stent placement Hx of cardiac cath Family History Other Diabetes Heart attack Social History Smoking Status: Never smoker alcohol intake: never substance use type: denies use current occupational status: retired Travel in the last 8 weeks: None Other Medical History Have you received the Flu Vaccine for this season: Yes Have you received the Pneumonia Vaccine: Yes ROS Obtained: Yes Systems reviewed as appropriate & no additional complaints except as documented Physical Exam General General appearance: alert and in no apparent distress Respiratory Respiratory exam: Present normal lung sounds bilaterally Cardiovascular Cardiovascular exam: Present regular rate Neurological Exam Neurological exam: Present alert and oriented X3 Medical Decision Making Medical Records Medical records reviewed: Yes I reviewed the patient's medical records. Screening: Per USPSTF and CDC recommendations, given the prevalence of disease in our region, it is our hospital?s policy to screen for HIV and viral Hepatitis for all patients aged 18 and over and those with ongoing risk factors. [place] Inquiry Pt receiving controlled substance: No Vital Signs: 12/28/23 14:08 12/28/23 14:48 12/28/23 14:49 Temperature 98.3 F 100.2 F H Temperature Source Oral Temporal Artery Scan Pulse Rate 89 86 Pulse Rate [Right] 98 H Respiratory Rate 18 18 Blood Pressure 146/60 H 146/60 H Blood Pressure [Right Arm] 156/65 H Blood Pressure Mean 104 Blood Pressure Mean [Right Arm] 95 Blood Pressure Source Automatic Cuff Blood Pressure Source [Right Arm] Automatic Cuff 02 Sat by Pulse Oximetry 92 L 91 L 92 L Oxygen Delivery Method Room Air Room Air Room Air 12/28/23 15:00 12/28/23 15:30 12/28/23 16:00 Temperature Temperature Source Pulse Rate 84 87 82 Pulse Rate [Right] Respiratory Rate Blood Pressure 147/56 H 143/60 H 144/60 H Blood Pressure [Right Arm] Blood Pressure Mean 100 90 95 Blood Pressure Mean [Right Arm] Blood Pressure Source Blood Pressure Source [Right Arm] 02 Sat by Pulse Oximetry 92 L 91 L 91 L Oxygen Delivery Method Room Air Room Air Room Air 12/28/23 17:00 12/28/23 17:30 12/28/23 18:00 Temperature Temperature Source Pulse Rate 79 89 81 Pulse Rate [Right] Respiratory Rate Blood Pressure 149/70 H 150/66 H 159/76 H Blood Pressure [Right Arm] Blood Pressure Mean 96 95 91 Blood Pressure Mean [Right Arm] Blood Pressure Source Blood Pressure Source [Right Arm] 02 Sat by Pulse Oximetry 95 97 96 Oxygen Delivery Method Room Air Room Air Room Air 12/28/23 18:30 Temperature Temperature Source Pulse Rate 84 Pulse Rate [Right] Respiratory Rate Blood Pressure 156/69 H Blood Pressure [Right Arm] Blood Pressure Mean 98 Blood Pressure Mean [Right Arm] Blood Pressure Source Blood Pressure Source [Right Arm] 02 Sat by Pulse Oximetry 96 Oxygen Delivery Method Room Air Lab Data Lab results reviewed: Yes I reviewed the patient's lab results. Lab Results 12/28/23 14:30: WBC 9.4, RBC 3.47 L, Hgb 11.4 L, Hct 34.1 L, MCV 98.2 H, MCH 32.9 H, MCHC 33.5, RDW 15.8, Plt Count 200, MPV 8.2, Neut % (Auto) 78.9, Lymph % (Auto) 11.6, [place] % (Auto) 8.7, Eos % (Auto) 0.5, Baso % (Auto) 0.3, Neut # (Auto) 7.4, Lymph # (Auto) 1.1, [place] # (Auto) 0.8, Eos # (Auto) 0.1, Baso # (Auto) 0.0, PT 10.3, INR 0.91, Sodium 138, Potassium 4.1, Chloride 102, Carbon Dioxide 33 H, Anion Gap 7.1, BUN 36 H, Creatinine 1.50 H, Estimated Creat Clear 64, Estimated GFR 44 L, Est GFR ( Amer) 54 L, Glucose 164 H, Calcium 8.4, Magnesium 1.6, Total Bilirubin 0.8, AST 25, ALT 15, Alkaline Phosphatase 117, N T-Pro-B Natriuret Pep 950 H, Total Protein 6.5, Albumin 3.6, Globulin 2.9, Albumin/Globulin Ratio 1.2, Urine Color Yellow, Urine Appearance Clear, Urine pH 6.5, Ur Specific [place] 1.010, Urine Protein 2+ A, Urine Glucose (UA) Negative, Urine Ketones Negative, Urine Blood 2+ A, Urine Nitrate Negative, Urine Bilirubin Negative, Urine Urobilinogen 0.2, Ur Leukocyte Esterase 2+ A, Urine RBC Occasional, Urine WBC 5-10, Ur Squamous Epith Cells Occasional, Urine Bacteria Trace, HIV 1&2 Antibody Rapid Nonreactive 12/28/23 14:30 12/28/23 14:30 Orders (Tests/Meds): ED MEDICATIONS Discontinued Medications Generic Name Dose Route Start Last Admin Trade Name Baylee PRN Reason Stop Dose Admin Furosemide 80 mg 12/28/23 17:07 12/28/23 17:15 Furosemide 40mg/4ml Vial IV 12/28/23 17:08 80 mg ONCE ONE Administration Piperacillin Sod/Tazobactam 50 mls @ 100 mls/hr 12/28/23 15:41 12/28/23 16:02 Sod 3.375 gm/ Sodium Chloride IV 12/28/23 16:10 100 mls/hr ONCE ONE Administration Vancomycin HCl 2,000 mg/ 250 mls @ 125 mls/hr 12/28/23 15:45 12/28/23 16:36 Sodium Chloride IV 12/28/23 17:44 125 mls/hr ONCE ONE Administration Miscellaneous 1 each 12/28/23 15:45 Vancomycin Consult Request NOTAPPLIC 01/27/24 15:44 CONSULT PHARMACY FELICIANO ORDERS Category Date Time Status CT abdomen pelvis wo con Stat Cat Scan 12/28/23 14:18 Completed Chest XR -- portable [XR chest portable] Stat Exams 12/28/23 17:06 Completed BNP [NT Pro Brain Natriuretic Pep.] Stat Lab 12/28/23 14:30 Completed CBC w/Auto Diff [Complete Blood Count Auto Diff] Stat Lab 12/28/23 14:30 Completed CMP [Comprehensive Metabolic Panel] Stat Lab 12/28/23 14:30 Completed Full Resp Panel w/COVID ([facility]) Routine Lab 12/28/23 15:49 Received HIV (1&2) Antibody Rapid Stat Lab 12/28/23 14:30 Completed Hep C Ab with Reflex to RNA Stat Lab 12/28/23 14:30 Received INR [Prothrombin Time INR] Stat Lab 12/28/23 14:30 Completed Magnesium Stat Lab 12/28/23 14:30 Completed UA [Urinalysis and Microscopic] Stat Lab 12/28/23 14:30 Completed Blood Culture Stat Micro 12/28/23 16:00 Received Urine Culture Stat Micro 12/28/23 14:30 Received Tissue Perfus/Sepsis Re-Eval Sepsis Re-Evaluation Performed: Yes Date Performed: 12/28/23 Time Performed: 18:44 Medical Decision Narrative: In summary patient is a 83-year-old male who presents to the emergency department for evaluation of weakness and edema. Patient is hemodynamically stable with a blood pressure of 156/65 a pulse of 98 respiratory rate is 18 O2 sat of 92% on room air upon arrival, and a temperature of 98.3. Physical exam shows a very pleasant well-nourished well-developed 83-year-old male who does not appear to be in acute distress. Patient has significant bilateral dependent edema right greater than left 3+ to the level of the knee and it is tender to palpation but no evidence of erythema induration or lymphangitis. The remainder of his exam is unremarkable nonfocal including normal breath sounds normal heart sounds no abdominal pain with normal bowel sounds. Differential diagnosis includes sepsis, decreased venous return due to intra-abdominal neoplastic disease versus immunosuppression versus renal failure versus CHF etc. Initial workup will be conducted with hematologic labs CT scan abdomen pelvis. Initial interventions include Tylenol. I did consider possibility of sepsis initially however patient has a complex medical history including renal failure and coronary artery disease CHF and is currently normotensive thus a sepsis bolus was deferred. Initial workup reviewed by me shows that he has chronic kidney disease but no evidence of worsening with a creatinine of 1.5 and a GFR of 44, CBC shows a white count of 9.4 with no shift on differential his NT proBNP was elevated at 950, urinalysis shows 2+ protein 2+ blood 2+ leukocyte esterase however microscopic exam shows occasional red blood cells 5-10 white cells occasional epithelial cells and trace bacteria. Upon repeat evaluation I personally rechecked the patient's oral temperature and it was 101.2. Given this I had interactive discussion with the patient and his family members at his bedside and via patient directed decision making they have requested that we attempt to transfer the patient to [facility] at their request. To that end I have contacted the [facility] transfer center at [phone]. Spoke to Dr. Ferrell at about 1730 about patient management. She declined transfer admission or wait list. At that point call the [facility] at family's request and had interactive discussion with Dr. Potts about patient management and he has been waitlisted there. Family and patient are agreeable for admission here while they wait for a bed. Subsequently had an interactive discussion with hospital medicine here about patient management and he has been admitted for further evaluation and care Critical Care Critical Care Time Critical Care Time: No
--- NOTE | 2023-12-28 14:18 | CT_ITS ---
PROCEDURE INFORMATION: Exam: CT Abdomen And Pelvis Without Contrast Exam date and time: 12/28/2023 2:44 PM Age: 83 years old Clinical indication: Abdominal pain; Additional info: Acute abd pain, low back pain, prostate cancer TECHNIQUE: Imaging protocol: Computed tomography of the abdomen and pelvis without contrast. Radiation optimization: All CT scans at this facility use at least one of these dose optimization techniques: automated exposure control; mA and/or kV adjustment per patient size (includes targeted exams where dose is matched to clinical indication); or iterative reconstruction. COMPARISON: Renal ultrasound dated 07/15/2023. MRI lumbar spine dated 11/23/2022. Chest radiographs dated 06/15/2022. FINDINGS: Tubes, catheters and devices: Catheter is identified within the urinary bladder. Lungs: Bilateral lower lung atelectasis or scarring is demonstrated. Heart: Minimal volume pericardial fluid. Coronary arteries: Coronary arterial calcifications are demonstrated. Liver: Hepatic calcification noted, compatible with old granulomatous disease. Liver appears heterogeneous with irregular border. Possible hepatic parenchymal disease. Gallbladder and biliary ducts: Cholelithiasis is demonstrated. The gallbladder appears otherwise unremarkable. No evidence for biliary dilatation. Pancreas: Unremarkable. Spleen: Unremarkable. No splenomegaly. Adrenal glands: Normal. No mass. Kidneys and ureters: The kidneys appear heterogeneous with irregular lobulated contours and areas of cortical thinning. Findings suggesting chronic renal parenchymal disease. Left renal incidental simple appearing cyst is demonstrated. Left renal cyst measurement: Exophytic cyst along the anterolateral mid left kidney measures 5 Hounsfield units and 2.7 cm on axial image 44.. The visualized kidneys appear otherwise unremarkable. No visualized renal hydronephrosis. No visible renal calculi. Stomach and bowel: Generalized colonic diverticulosis is demonstrated. Moderate volume of colonic fecal material identified throughout colon. Appendix: The visualized appendix appears unremarkable. Intraperitoneal space: No free air. No significant fluid collection. Vasculature: Aortic and mitral valve calcification demonstrated. Calcifications in the pelvis, most compatible with phleboliths. Moderate diffuse atherosclerotic arterial vascular wall calcifications are demonstrated. Moderate atherosclerotic calcification demonstrated within the aorta. Lymph nodes: No enlarged lymph nodes. Urinary bladder: Limited visualization of the urinary bladder. Urinary bladder appears small in size, limiting further assessment. Reproductive: Limited visualization of reproductive organs. Bones/joints: Total left hip prosthesis is identified. Severely limiting artifact created by unilateral hip metallic hardware. Severely limited visualization of the mid to lower pelvis bilaterally. Significant abnormalities may not be visible. Limited visualization of bony structures within the pelvis. Diffusely severely decreased bone density. Limited sensitivity to detect acute abnormalities. Moderate to severe generalized bony degenerative changes. Disc and osteophyte complexes with moderate to severe central canal and foraminal narrowing within the lower lumbar spine and lumbar sacral junction. Bony structures appear otherwise unremarkable. Soft tissues: Limited visualization of soft tissues in the pelvis. Other findings: Limited study with motion artifact. IMPRESSION: 1. Moderate degree constipation. Colonic diverticulosis. 2. Nonspecific heterogeneous and irregular appearance of the liver. Recommend correlation with liver function tests. 3. Cholelithiasis. 4. Potential chronic renal parenchymal disease. Consider correlation with renal function tests. 5. Left renal cyst. 6. Chronic findings. COMMENTS: Consistent with the [employer]'s Incidental Findings Committee white paper (J Am Gloria Radiol 2018): Any incidental renal lesion less than 1 cm or classified as too small to characterize, or any incidental cystic renal lesion characterized as simple-appearing, is likely benign. No follow-up imaging is recommended for these lesions per consensus recommendations based on imaging criteria.
[2023-12-28 14:39] LABS: Microscopic, Urine URINE MICROSCOPIC (MICROSCOPIC)
[2023-12-28 14:45] LABS: Appearance,Urine CLEAR (Clear); Bilirubin,Urine Negative (Negative); Blood, Urine 2+ (Negative); Color,Urine YELLOW (Yellow); Glucose,Urine (UA) Negative (Negative); Ketones,Urine Negative (Negative); Leukocyte Esterase,Urine 2+ (Negative); Nitrate,Urine Negative (Negative); PH,Urine 6.5 (5.0-8.5); Protein,Urine 2+ (Negative); Urobilinogen,Urine 0.2 EU/dl (0.2)
[2023-12-28 14:49] LABS: Basophils % 0.3 % (0.1-2.0); Eosinophils # 0.1 K/mm3 (0.0-0.4); Eosinophils % 0.5 % (0.1-12.0); Hematocrit 34.1 % (42.0-52.0); Hemoglobin 11.4 g/dL (14.1-18.0); Lymphocytes # 1.1 K/mm3 (0.7-4.5); Lymphocytes % 11.6 % (10-50); Mean Corpuscular HGB Conc 33.5 g/dL (31.8-35.4); Mean Corpuscular Hemoglobin 32.9 pg (27.0-31.2); Mean Corpuscular Volume 98.2 fl (80-94); Mean Platelet Volume 8.2 fl (7.4-10.4); Monocytes # 0.8 K/mm3 (0.1-1.0); Monocytes % 8.7 % (1.7-9.3); Neutrophils # 7.4 K/mm3 (1.8-7.8); Neutrophils % 78.9 % (37.0-80.0); Platelet Count 200 K/mm3 (142-424); Red Blood Count 3.47 M/mm3 (4.60-6.20); Red Cell Distribution Width 15.8 % (11.5-17.5); White Blood Count 9.4 K/mm3 (4.8-10.8)
[2023-12-28 14:52] LABS: INR 0.91 (0.9-1.1); Prothrombin Time 10.3 seconds (10.1-12.5)
[2023-12-28 15:02] LABS: Bacteria,Urine Trace /lpf; RBC,Urine Occasional #/hpf (0-3); Squamous Epithelial Cell,Urine Occasional #/hpf (0-5)
[2023-12-28 15:03] LABS: Alanine Aminotransferase 15 U/L (12-78); Albumin Level 3.6 g/dl (3.5-5.0); Albumin/Globulin Ratio 1.2 (1.1-1.8); Alkaline Phosphatase 117 U/L (38-126); Anion Gap 7.1 mEq/L (5-15); Aspartate Amino Transferase 25 U/L (17-59); Bilirubin,Total 0.8 mg/dl (0.2-1.3); Blood Urea Nitrogen 36 mg/dl (9-20); Calcium 8.4 mg/dl (8.4-10.2); Carbon Dioxide 33 mmol/L (22.0-30.0); Chloride 102 mmol/L (98-107); Creatinine Clearance Estimated 64 mL/min (50-200); Estimated Glomerular Filt Rate 44 ml/min (>60); GFR (African American) 54 ML/MIN (>60); Globulin 2.9 g/dL (1.3-3.2); Glucose 164 mg/dl (74-100); Magnesium 1.6 mg/dl (1.6-2.3); Potassium 4.1 mmoL/L (3.5-5.1); Sodium 138 mmol/L (136-145); Total Protein,Serum 6.5 g/dl (6.3-8.2)
[2023-12-28 15:12] LABS: NT Pro Brain Natriuretic Pep. 950 pg/mL (0-450)
--- NOTE | 2023-12-28 15:45 | PC.NURSE ---
called [facility] to see about transferring this pt. [facility] advised they would get a hold of the hospitalist and call us back
[2023-12-28 15:55] LABS: HIV (1&2) Antibody Rapid NONREACTIVE (NONREACTIVE)
[2023-12-28 15:56] LABS: Adenovirus,PCR Not Detected (NotDetected); Bordetella Pertussis Not Detected (NotDetected); Chlamydophila Pneumoniae, PCR Not Detected (NotDetected); Coronavirus 19, PCR Not Detected (NotDetected); Coronavirus 229E Not Detected (NotDetected); Coronavirus NL63 Not Detected (NotDetected); Coronavirus OC43 Not Detected (NotDetected); Coronovirus HKU1,PCR Not Detected (NotDetected); Human Metapneumovirus Not Detected (NotDetected); Influenza A, PCR Not Detected (NotDetected); Influenza AH1, 2009 Not Detected (NotDetected); Influenza AH1, PCR Not Detected (NotDetected); Influenza AH3,PCR Not Detected (NotDetected); Influenza B, PCR Not Detected (NotDetected); Mycoplasma Pneumoniae, PCR Not Detected (NotDetected); Parainfluenza 1, PCR Not Detected (NotDetected); Parainfluenza 2, PCR Not Detected (NotDetected); Parainfluenza 3, PCR Not Detected (NotDetected); Parainfluenza 4, PCR Not Detected (NotDetected); Respiratory Syncytial Virus Not Detected (NotDetected); Rhinovirus/Enterovirus Not Detected (NotDetected)
[2023-12-28] MEDS: PIPERCILLIN/TAZO 3.375 GM in 0.9 % SODIUM CHLORIDE 50 ML IV (16:02)
--- NOTE | 2023-12-28 16:35 | PC.NURSE ---
Called [facility] back again since it had been almost 45 mins and havent heard anything. [facility] advised they were still waiting on the hospitalist Dr Ferrell
[2023-12-28] MEDS: VANCOMYCIN HCL 2,000 MG in 0.9 % SODIUM CHLORIDE 250 ML 125 MG IV (16:36)
--- NOTE | 2023-12-28 17:06 | XR_ITS ---
PROCEDURE INFORMATION: Exam: XR Chest Exam date and time: 12/28/2023 5:08 PM Age: 83 years old Clinical indication: Other: Hypoxia; Additional info: Acute hypoxia TECHNIQUE: Imaging protocol: Radiologic exam of the chest. Views: 1 view. COMPARISON: CR XR CHEST 2V 06/15/2022 4:11 PM FINDINGS: Lungs: No evidence of acute pulmonary disease or infiltrates Pleural spaces: No large effusion or pneumothorax. Heart/Mediastinum: Stable cardiac and mediastinal contours. Vasculature: There are calcifications of the aortic arch. Bones/joints: No evidence of acute osseous abnormalities within the visualized portions of the thoracic spine and ribs. Osseous structures appear appropriate for patient age. IMPRESSION: No dense parenchymal consolidation, pleural effusion, or pneumothorax.
[2023-12-28] MEDS: FUROSEMIDE 40MG/4ML VIAL 80 MG IV (17:15)
--- NOTE | 2023-12-28 17:46 | PC.NURSE ---
Called [facility] to iveth with them about this pt. [facility] advised that they would call us back
--- NOTE | 2023-12-28 18:45 | PC.NURSE ---
FAMILY UPDATED ON POC, NO NEEDS AT THIS TIME
--- NOTE | 2023-12-28 19:00 | PC.NURSE ---
PT SITTING UP ON BEDSIDE EATING SUPPER. CALL LIGHT WITHIN REACH. FAMILY AT BEDSIDE
--- NOTE | 2023-12-28 19:22 | PC.NURSE ---
report called to Ree KILLIAN
--- NOTE | 2023-12-28 19:35 | PC.NURSE ---
called 2nd floor to ask about pt transfer.
--- NOTE | 2023-12-28 19:53 | PC.NURSE ---
Patient arrived to floor via stretcher from ED at 19:47.
[2023-12-28] MEDS: AMLODIPINE 5MG TABLET 5 MG PO (22:37)
[2023-12-28] MEDS: FUROSEMIDE 20MG TABLET 20 MG PO (22:37)
[2023-12-28] MEDS: GABAPENTIN 300MG CAPSULE 300 MG PO (22:37)
[2023-12-28] MEDS: HYDRALAZINE 10MG TABLET 10 MG PO (22:38)
[2023-12-28] MEDS: ALLOPURINOL 100MG TABLET 100 MG PO (22:38)
--- NOTE | 2023-12-28 23:11 | P.HP_ITS ---
<Statement entered by Wyatt Nath MD - 12/31/23 16:38> Personally examined the patient and agree with the plan of care outlined by [employer]UT[employer] ADVISOR. History of Present Illness *Admission Date: 12/28/23 *Reason for visit:: Malaise and fatigue *History of present illness: This is an 83-year-old male with past medical history of T2DM, prostate cancer with chronic indwelling Connell catheter, HLD who presents emergency department for complaints of generalized malaise and fatigue. States that he had an indwelling Connell catheter that was removed last week. States that he saw his provider yesterday and had distended bladder so Connell catheter was replaced at that time. Last night had sudden onset of chills and general malaise and fatigue. Also complained of generalized weakness. Also noted increase in lower extremity edema after his Connell catheter was removed approximately 1 week ago. Denies any chest pain. Endorses chills. Emergency department workup notable for acute cystitis secondary to Connell catheter. Renal function at baseline. Initially patient requested transfer to [facility] who declined. He is on the wait list for at this time. He will be treated for acute cystitis here and transferred if bed becomes available. [facility] Disclaimer: The information contained in this section may have been updated after the patient was seen, as this information can be updated by other users. Medical History Encounter for dialysis Tear of retina History of COVID-19 History of cataract Edema Renal disease HTN (hypertension), benign HLD (hyperlipidemia) T2DM (type 2 diabetes mellitus) Coronary artery disease Anxiety Surgical History Hx of cataract surgery Hx of colonoscopy History of surgery History of coronary artery stent placement Hx of cardiac cath Family History Other Diabetes Heart attack Social History Smoking Status: Former smoker tobacco type: cigarettes alcohol intake: never substance use type: denies use current occupational status: retired Travel in the last 8 weeks: None Other Medical History Have you received the Flu Vaccine for this season: No Have you received the Pneumonia Vaccine: Yes Review of Systems Review of Systems Review of systems:: other Review of systems (narrative): Negative except for HPI Meds Home Medications and Allergies Home Medications ?Medication ?Instructions ?Recorded ?Confirmed ?Type aspirin 81 mg tablet,delayed 81 mg PO DAILY [facility] 10/19/18 12/28/23 History release (Adult Low Dose Aspirin) coenzyme Q10 100 mg capsule 100 mg PO DAILY Supplement 10/19/18 10/18/23 History cyanocobalamin (vitamin B-12) 1,000 mcg PO DAILY Supplement 10/19/18 10/18/23 History 1,000 mcg capsule furosemide 20 mg tablet 20 mg PO BID Fluid #90 tabs 11/27/18 12/28/23 History polyethylene glycol 3350 17 17 g PO DAILY . 11/27/18 10/18/23 History gram/dose oral powder (Miralax) insulin human U-100 NPH-regulr 32 unit SQ BID Diabetes 08/02/19 12/28/23 History 70-30 mix 100 unit/mL subcutaneous susp (Novolin 70/30 U-100 Insulin) cholecalciferol (vitamin D3) 50 50 mcg PO DAILY Supplement 06/15/22 10/18/23 History mcg (2,000 unit) capsule (Vitamin D3) amlodipine 5 mg tablet 5 mg PO BID BP 90 days #180 tabs 09/12/23 12/28/23 Rx gabapentin 300 mg capsule 300 mg PO TID Pain #90 caps 10/04/23 12/28/23 Rx abiraterone 250 mg tablet 250 mg PO ONCE 10/18/23 12/28/23 History calcitriol 0.25 mcg capsule 0.25 mcg PO DAILY 10/18/23 12/28/23 History diphenhydramine HCl 50 mg capsule 50 mg PO HS . 10/18/23 10/18/23 History prednisone 5 mg tablet 5 mg PO DAILY 10/18/23 12/28/23 History simvastatin 40 mg tablet 40 mg PO QPM Cholesterol #90 tabs 10/24/23 12/28/23 Rx hydralazine 10 mg tablet 10 mg PO BID #180 tabs 10/28/23 12/28/23 Rx tamsulosin 0.4 mg capsule 0.4 mg PO ONCE #90 caps 11/04/23 12/28/23 Rx allopurinol 100 mg tablet 100 mg PO BID GOUT 90 days #90 tabs 11/11/23 12/28/23 Rx clopidogrel 75 mg tablet 75 mg PO DAILY Blood thinner 90 12/09/23 12/28/23 Rx days #90 tabs famotidine 20 mg tablet 20 mg PO DAILY . #90 tabs 12/09/23 12/28/23 Rx New Prescriptions to Start Prescriptions: Allergies Allergy/AdvReac Type Severity Reaction Status Date / Time No Known Allergies Allergy Verified 10/18/23 11:28 Exam Data for Last 24 hours Vital signs and Labs for Last 24 Hours: Temp Pulse Resp BP Pulse Ox O2 Del Method O2 Flow Rate 99.8 F H 78 17 148/72 H 97 Nasal Cannula 2 12/28/23 19:22 12/28/23 19:47 12/28/23 19:47 12/28/23 19:47 12/28/23 19:47 12/28/23 19:47 12/28/23 19:47 Laboratory Results - last 24 hr 12/28/23 14:30: WBC 9.4, RBC 3.47 L, Hgb 11.4 L, Hct 34.1 L, MCV 98.2 H, MCH 32.9 H, MCHC 33.5, RDW 15.8, Plt Count 200, MPV 8.2, Neut % (Auto) 78.9, Lymph % (Auto) 11.6, [place] % (Auto) 8.7, Eos % (Auto) 0.5, Baso % (Auto) 0.3, Neut # (Auto) 7.4, Lymph # (Auto) 1.1, [place] # (Auto) 0.8, Eos # (Auto) 0.1, Baso # (Auto) 0.0, PT 10.3, INR 0.91, Sodium 138, Potassium 4.1, Chloride 102, Carbon Dioxide 33 H, Anion Gap 7.1, BUN 36 H, Creatinine 1.50 H, Estimated Creat Clear 64, Estimated GFR 44 L, Est GFR ( Amer) 54 L, Glucose 164 H, Calcium 8.4, Magnesium 1.6, Total Bilirubin 0.8, AST 25, ALT 15, Alkaline Phosphatase 117, NT-Pro-B Natriuret Pep 950 H, Total Protein 6.5, Albumin 3.6, Globulin 2.9, Albumin/Globulin Ratio 1.2, Urine Color Yellow, Urine Appearance Clear, Urine pH 6.5, Ur Specific [place] 1.010, Urine Protein 2+ A, Urine Glucose (UA) Negative, Urine Ketones Negative, Urine Blood 2+ A, Urine Nitrate Negative, Urine Bilirubin Negative, Urine Urobilinogen 0.2, Ur Leukocyte Esterase 2+ A, Urine RBC Occasional, Urine WBC 5-10, Ur Squamous Epith Cells Occasional, Urine Bacteria Trace, HIV 1&2 Antibody Rapid Nonreactive 12/28/23 15:49: Chlamy pneumoniae PCR Not detected, Adenovirus (PCR) Not detected, B. pertussis DNA (PCR) Not detected, Coronavirus OC43 (PCR) Not detected, Coronavirus HKU1 (PCR) Not detected, Coronavirus 229E (PCR) Not detected, SARS-CoV-2 (PCR) Not detected, Coronavirus NL63 (PCR) Not detected, Human Metapneumovir PCR Not detected, Influenza A (H1) PCR Not detected, Influ A (H1N1/09) PCR Not detected, Influenza A (H3) PCR Not detected, Influenza Type A (PCR) Not detected, Influenza Type B (PCR) Not detected, M. pneumoniae (PCR) Not detected, Parainfluenza 1 (PCR) Not detected, Parainfluenza 2 (PCR) Not detected, Parainfluenza 3 (PCR) Not detected, Parainfluenza 4 (PCR) Not detected, RSV (PCR) Not detected, Entero/Rhino (PCR) Not detected I & O for Last 24 hours: Intake & Output 12/25/23 12/26/23 12/27/23 12/28/23 23:59 23:59 23:59 23:59 Output Total 2300 / 2300 Balance -2300 / -2300 Weight 122.833 kg Constitutional Constitutional: no acute distress *Routine HEENT Exam Head: Present normocephalic Eye: Present EOMI and PERRL ENT: Present mucous membranes moist *Routine Neck Exam Neck: Present supple; Absent lymphadenopathy *Routine Respiratory Exam Respiratory: Present CTA bilaterally *Routine Cardiovascular Exam Cardiovascular: Present RRR *Routine Abdominal Exam Abdominal: Present soft and normoactive bowel sounds; Absent tenderness Comments: Connell catheter in place draining clear yellow urine *Routine Rectal Exam Rectal:: deferred *Routine Genitalia Exam Genitalia:: deferred *Routine Extremities Exam Extremities: Absent cyanosis, clubbing or edema *Routine Skin Exam Skin: Present warm; Absent rash *Routine Neurological Exam Neurological: Present alert and oriented X3 Assessment and Plan *Assessment and plan (1) Fever of unknown origin (FUO): Status: Acute Category: Medical Code(s): R50.9 - Fever, unspecified (2) Immunosuppressed status: Status: Acute Category: Medical Code(s): D84.9 - Immunodeficiency, unspecified (3) Sepsis without septic shock: Status: Acute Category: Medical Code(s): A41.9 - Sepsis, unspecified organism (4) HLD (hyperlipidemia): Status: Acute Category: Medical Code(s): E78.5 - Hyperlipidemia, unspecified (5) Catheter-associated urinary tract infection: Status: Acute Category: Medical Code(s): T83.511A - Infection and inflammatory reaction due to indwelling urethral catheter, initial encounter; N39.0 - Urinary tract infection, site not specified Plan #Catheter associated UTI #Sepsis without septic shock #Immunosuppressive state Urinalysis positive for infection with leuk esterase white blood cells and bacteria Continue Rocephin Follow-up urine culture Does not appear to be in overt distress at this time. Follow-up with urology outpatient Continue cancer medications and prednisone as prescribed #CAD Continue aspirin and Plavix #T2DM Continue sliding scale insulin
[2023-12-29] VITALS: BP 144/58; PULSE 77; RESP 18; TEMP 36.9; O2SAT 94
[2023-12-29 00:21] LABS: POC Glucose,Bedside 158 (70-110)
--- NOTE | 2023-12-29 00:21 | PC.NURSE ---
Fingerstick glucose monitoring was taken late at around midnight this shift; glucose reading was 158. Yusef MICHAEL was paged to ask whether or not to give the patient insulin coverage at this time. She said that he will be ok for now and to hold off on giving insulin at this time due to the time interval. Glucose is to be rechecked in the morning (06:00), continuing the normal ACHS times and administering insulin coverage as appropriately.
[2023-12-29 04:00] VITALS: BP 120/48; PULSE 76; RESP 17; TEMP 37.7; O2SAT 91; BMI 36.6
[2023-12-29] MEDS: humaLOG 100 UNITS/ML 10ML VIAL (SSI) SUBCUT ×4 (06:30→21:19)
[2023-12-29 06:32] LABS: POC Glucose,Bedside 158 (70-110)
[2023-12-29 06:33] LABS: Basophils % 0.4 % (0.1-2.0); Eosinophils # 0.1 K/mm3 (0.0-0.4); Hematocrit 32.9 % (42.0-52.0); Hemoglobin 11.1 g/dL (14.1-18.0); Lymphocytes # 1.7 K/mm3 (0.7-4.5); Mean Corpuscular HGB Conc 33.7 g/dL (31.8-35.4); Mean Corpuscular Hemoglobin 33.3 pg (27.0-31.2); Mean Corpuscular Volume 98.9 fl (80-94); Mean Platelet Volume 9.1 fl (7.4-10.4); Monocytes # 0.7 K/mm3 (0.1-1.0); Monocytes % 9.5 % (1.7-9.3); Neutrophils # 4.7 K/mm3 (1.8-7.8); Neutrophils % 66.1 % (37.0-80.0); Platelet Count 190 K/mm3 (142-424); Red Blood Count 3.32 M/mm3 (4.60-6.20); Red Cell Distribution Width 15.9 % (11.5-17.5); White Blood Count 7.2 K/mm3 (4.8-10.8)
[2023-12-29 06:40] LABS: Chloride 99 mmol/L (98-107); Sodium 139 mmol/L (136-145)
[2023-12-29 06:41] LABS: Potassium 3.2 mmoL/L (3.5-5.1)
[2023-12-29 06:43] LABS: Blood Urea Nitrogen 33 mg/dl (9-20); Creatinine Clearance Estimated 49 mL/min (50-200); Estimated Glomerular Filt Rate 34 ml/min (>60); GFR (African American) 41 ML/MIN (>60)
[2023-12-29 06:44] LABS: Anion Gap 8.2 mEq/L (5-15); Carbon Dioxide 35 mmol/L (22.0-30.0); Glucose 157 mg/dl (74-100)
--- NOTE | 2023-12-29 07:56 | CA_ITS ---
APPROVED REPORT EXAM: Comprehensive 2D, Doppler, and color-flow Echocardiogram Radiotelegraph Operator: Heidi Arevalo, RCS, RVS Ht: 6 ft 0 in Wt: 278lbs BSA: 2.45 BP: 148/72 mmHg Indications: CAD, DM, Ex-smoker, HLDSepsis, CHF, Cystitis, Fever, Prostate CA, 2D Dimensions Left Atrium 4.22 cm M: 3.0 - 4.0 EF AP4 42.20 % GL Strain -16.9 % M-Mode Dimensions RVDd 2.72 cm (0.9-2.6) LA Diam 4.82 cm (1.9-4.0) LVDd 6.19 cm (3.5-5.7) LVDs 4.22 cm (3.5-5.7) IVSd 1.17 cm (0.6-1.1) PWd 0.89 cm (0.6-1.1) EF (Teich) 58.90% EPSs 0.80 cm FS 31.80% EDV (Teich) 193.30 mL TAPSE 2.31 (<1.7) ESV (Teich) 79.50 mL LV Diastology E Decel Time 167 (160-240 msec) E/A Ratio 1.50 MED A' 10.00 cm/s LAT A' 12.50 cm/s Aortic Valve RAJESH Index 0.98 cm2/m2 AoV Peak Norberto. 177.0 (50-130 cm/s) AO Peak GR. 12.60 mmHg AO Mean GR. 6.20 (<5 mmHg) AO VTI 33.0 (18-25 cm) RAJESH (VTI) 2.47 (2.5-4.5 cm2) Mitral Valve MV A Velocity 70.0 (40-130 cm/s) E/A Ratio 1.50 Tricuspid Valve TR P. Velocity 256.00 cm/s RAP Estimate 10.00 mmHg RVSP 36.30 mmHg Left Ventricle The left ventricle is normal size. The left ventricular systolic function is normal. The left ventricular ejection fraction is within the normal range. There is increased LV wall thickness. There is normal LV segmental wall motion. The left ventricular diastolic function is normal. LVEF is 55%. Right Ventricle Right ventricle is mildly dilated. The right ventricular systolic function is normal. Atria The left atrium size is normal. The right atrium size is normal. There is no Doppler evidence of interatrial shunt. Aortic Valve The aortic valve is mildly thickened. Mild to moderate aortic stenosis. RAJESH by 2D planimetry is 1.5 cm2. Transaortic gradients are likely underestimated due to technically difficult study. Mean AV gradient 6 mmHg. Max AV gradient 13 mmHg. Peak velocity 1.8 m/s. No aortic regurgitation is present. Mitral Valve The mitral valve is normal in structure. No evidence of mitral valve stenosis. There is no mitral valve regurgitation noted. Tricuspid Valve Tricuspid valve is grossly normal in structure and function. Trace tricuspid regurgitation. There is insufficient TR jet to estimate RVSP. Pulmonic Valve The pulmonary valve is normal in structure. Trace pulmonic regurgitation. The ascending aorta is not well-visualized. Great Vessels The aortic root is normal in size. IVC is normal in size and collapses >50% with inspiration. Pericardium There is no pericardial effusion. Other Information Study Quality: Technically Difficult Conclusion Technically difficult study due to poor acoustic windows. Normal biventricular systolic function. Mild RV dilation. Thickened AV. Mild to moderate (RAJESH by 2D planimetry is 1.5 cm2). Transaortic gradients are likely underestimated due to technically difficult study. Mean AV gradient 6 mmHg. Max AV gradient 13 mmHg. Peak velocity 1.8 m/s). In the setting of technically difficult study, future limited TTE further evaluation of AV gradients on an outpatient basis is suggested. Electronically signed by : Janett Johns MD 12/29/2023 11:55:36
[2023-12-29 08:00] VITALS: BP 96/52; PULSE 77; RESP 16; TEMP 36.8; O2SAT 95
[2023-12-29 08:22] LABS: HCV Ab Non Reactive (Non Reactive)
[2023-12-29] MEDS: predniSONE 5MG TAB 5 MG PO (08:58)
[2023-12-29] MEDS: GABAPENTIN 300MG CAPSULE 300 MG PO ×3 (08:58→21:04)
[2023-12-29] MEDS: FAMOTIDINE 20MG TABLET 20 MG PO (08:59)
[2023-12-29] MEDS: ASPIRIN EC 81MG TABLET 81 MG PO (08:59)
[2023-12-29] MEDS: CALCITRIOL 0.25MCG CAPSULE 0.25 MCG PO (08:59)
[2023-12-29] MEDS: FUROSEMIDE 20MG TABLET 20 MG PO ×2 (08:59→16:51)
[2023-12-29] MEDS: ALLOPURINOL 100MG TABLET 100 MG PO ×2 (09:00→21:04)
[2023-12-29] MEDS: CLOPIDOGREL 75MG TAB 75 MG PO (09:00)
[2023-12-29] MEDS: 0.9 % SODIUM CHLORIDE 1000ML 500 ML IV (09:12)
[2023-12-29] MEDS: CEFTRIAXONE SODIUM 2 GM in 0.9 % SODIUM CHLORIDE 100 ML IV (09:13)
[2023-12-29] MEDS: ABIRATERONE 250 MG 4 EACH PO (10:35)
[2023-12-29] MEDS: POTASSIUM CHLORIDE 20MEQ TAB 40 MEQ PO ×2 (10:36→14:28)
[2023-12-29 11:42] LABS: POC Glucose,Bedside 194 (70-110)
[2023-12-29 12:00] VITALS: BP 116/60; PULSE 70; RESP 17; TEMP 36.6; O2SAT 96
[2023-12-29 16:00] VITALS: BP 137/68; PULSE 72; RESP 16; TEMP 36.8; O2SAT 91
--- NOTE | 2023-12-29 18:22 | PC.NURSE ---
1822: Pt. is alert and orientated x 4. Pt. has UTI, hernandez catheter in place has prostate cancer. ,hernandez draining well. Pt. is feeling better. has a home cancer medication that needs to be given once a day. He rquest the dose to be given at 0600. vital signs stable. 1630 blood glucose was 304. Pt. covered with regular insuln.
--- NOTE | 2023-12-29 19:09 | P.PN_ITS ---
Subjective *Date: 12/29/23 *Time: 19:09 Interval history: Patient feels better today, but feels quite weak especially with ambulation. Exam Data for Last 24 hours Vital signs and Labs for Last 24 Hours: Temp Pulse Resp BP Pulse Ox O2 Del Method O2 Flow Rate 98.2 F 72 16 137/68 91 L Room Air 2 12/29/23 16:00 12/29/23 16:00 12/29/23 16:00 12/29/23 16:00 12/29/23 16:00 12/29/23 18:35 12/29/23 07:00 Laboratory Results - last 24 hr 12/28/23 14:30: Urine Color Yellow, Urine Appearance Clear, Urine pH 6.5, Ur S pecific [place] 1.010, Urine Protein 2+ A, Urine Glucose (UA) Negative, Urine Ketones Negative, Urine Blood 2+ A, Urine Nitrate Negative, Urine Bilirubin Negative, Urine Urobilinogen 0.2, Ur Leukocyte Esterase 2+ A, Urine RBC Occasional, Urine WBC 5-10, Ur Squamous Epith Cells Occasional, Urine Bacteria Trace, Hepatitis C Antibody Non reactive 12/28/23 15:49: Chlamy pneumoniae PCR Not detected, Adenovirus (PCR) Not detected, B. pertussis DNA (PCR) Not detected, Coronavirus OC43 (PCR) Not detected, Coronavirus HKU1 (PCR) Not detected, Coronavirus 229E (PCR) Not detected, SARS-CoV-2 (PCR) Not detected, Coronavirus NL63 (PCR) Not detected, Human Metapneumovir PCR Not detected, Influenza A (H1) PCR Not detected, Influ A (H1N1/09) PCR Not detected, Influenza A (H3) PCR Not detected, Influenza Type A (PCR) Not detected, Influenza Type B (PCR) Not detected, M. pneumoniae (PCR) Not detected, Parainfluenza 1 (PCR) Not detected, Parainfluenza 2 (PCR) Not detected, Parainfluenza 3 (PCR) Not detected, Parainfluenza 4 (PCR) Not detected, RSV (PCR) Not detected, Entero/Rhino (PCR) Not detected 12/29/23 00:14: POC Glucose 158 H 12/29/23 06:20: WBC 7.2, RBC 3.32 L, Hgb 11.1 L, Hct 32.9 L, MCV 98.9 H, MCH 33.3 H, MCHC 33.7, RDW 15.9, Plt Count 190, MPV 9.1, Neut % (Auto) 66.1, Lymph % (Auto) 23.0, [place] % (Auto) 9.5 H, Eos % (Auto) 1.0, Baso % (Auto) 0.4, Neut # (Auto) 4.7, Lymph # (Auto) 1.7, [place] # (Auto) 0.7, Eos # (Auto) 0.1, Baso # (Auto) 0.0, Sodium 139, Potassium 3.2 L D, Chloride 99, Carbon Dioxide 35 H, Anion Gap 8.2, BUN 33 H, Creatinine 1.90 H D, Estimated Creat Clear 49, Estim ated GFR 34 L, Est GFR ( Amer) 41 L D, Glucose 157 H, Calcium 8.0 L 12/29/23 06:24: POC Glucose 158 H 12/29/23 11:24: POC Glucose 194 H I & O for Last 24 hours: Intake & Output 12/26/23 12/27/23 12/28/23 12/29/23 23:59 23:59 23:59 23:59 Intake Total 2060 / 2060 Output Total 2300 / 3200 4250 / 4250 Balance -2300 / -3080 -2190 / -2190 Weight 122.833 kg 122.606 kg Microbiology Reports for the Last 24 Hours: Microbiology 12/28/23 16:00 Blood Blood Culture - Preliminary NO GROWTH AFTER 24 HOURS 12/28/23 15:56 Blood Blood Culture - Preliminary NO GROWTH AFTER 24 HOURS 12/28/23 14:30 Urine,Clean Catch Urine Culture - Preliminary Gram Negative Rods Constitutional Constitutional: no acute distress *Routine HEENT Exam Head: Present normocephalic Eye: Present EOMI and PERRL ENT: Present mucous membranes moist *Routine Neck Exam Neck: Present supple; Absent lymphadenopathy *Routine Respiratory Exam Respiratory: Present CTA bilaterally *Routine Cardiovascular Exam Cardiovascular: Present RRR *Routine Abdominal Exam Abdominal: Present soft and normoactive bowel sounds; Absent tenderness *Routine Extremities Exam Extremities: Present edema; Absent cyanosis or clubbing Comments: 3+ LE pitting edema. *Routine Skin Exam Skin: Present warm; Absent rash *Routine Neurological Exam Neurological: Present alert and oriented X3 Assessment and Plan *Assessment and plan (1) Fever of unknown origin (FUO): Status: Acute Category: Medical Code(s): R50.9 - Fever, unspecified (2) Immunosuppressed status: Status: Acute Category: Medical Code(s): D84.9 - Immunodeficiency, unspecified (3) Sepsis without septic shock: Status: Acute Category: Medical Code(s): A41.9 - Sepsis, unspecified organism (4) HLD (hyperlipidemia): Status: Acute Category: Medical Code(s): E78.5 - Hyperlipidemia, unspecified (5) Catheter-associated urinary tract infection: Status: Acute Category: Medical Code(s): T83.511A - Infection and inflammatory reaction due to indwelling urethral catheter, initial encounter; N39.0 - Urinary tract infection, site not specified Plan #Catheter associated UTI #Sepsis without septic shock #Immunosuppressive state Urinalysis positive for infection with leuk esterase white blood cells and bacteria Continue Rocephin Urine culture shows gram-negative rods, pending speciation and sensitivities. Patient feels better today, but feels quite weak especially with ambulation. PT consulted, pending recommendations. #HFpEF ? Continue home Lasix 20 mg twice daily. - Continues to have 3+ putting edema, but hold off on aggressive diuresis in the setting of soft pressures and infection. Satting well on room air. ECHO shows relatively normal biventricular systolic function, normal LV scanlon tolic function. #Prostate cancer Continue cancer medications and prednisone as prescribed #CAD Continue aspirin and Plavix #T2DM Continue sliding scale insulin
[2023-12-29 20:00] VITALS: BP 133/54; PULSE 75; RESP 18; TEMP 37; O2SAT 93
[2023-12-29] MEDS: PRAVASTATIN 40MG TAB 40 MG PO (21:04)
[2023-12-29] MEDS: AMLODIPINE 5MG TABLET 5 MG PO (21:04)
[2023-12-29] MEDS: TAMSULOSIN 0.4MG CAPSULE 0.4 MG PO (21:04)
[2023-12-29] MEDS: HYDRALAZINE 10MG TABLET 10 MG PO (21:04)
[2023-12-29 21:22] LABS: POC Glucose,Bedside 209 (70-110)
[2023-12-29 21:35] LABS: POC Glucose,Bedside 304 (70-110)
[2023-12-30] VITALS: BP 127/69; PULSE 70; RESP 18; TEMP 36.8; O2SAT 95
--- NOTE | 2023-12-30 02:00 | PC.NURSE ---
Marisa from called at this time requesting an update and recent vital signs from the patient. She made note that he has a Connell catheter in place. Representatives from will continue to call until they have a bed available, per ongoing care.
--- NOTE | 2023-12-30 03:55 | PC.NURSE ---
Addendum entered by Ree Guerrero RN 12/30/23 06:51: Patient had some pain in his right side this morning at around 05:00; he explained that this was the first instance this has happened during his stay. He was given Tylenol per APR, readjusted in his bed for comfort, and reported relief after receiving. Original Note: Patient is alert and oriented x4. Patient was observed to have eyes closed, respirations even and unlabored on 1 L of oxygen via nasal cannula, and no apparent distress throughout the night. Patient stated that he felt a little bit better today regarding weakness and swelling in his bilateral lower extremities. However, patient continues to have significant pitting edema in both of his feet. Patient does best ambulating to the bathroom with his cane in one hand and a staff member on the other side. He has a Connell catheter in place per history of urinary retention and prostate cancer; it has been emptied and output has been documented accordingly. Urine was noticed to be clear and light yellow. Patient did not have any complaints of pain, dizziness, or nausea this shift. He was given fresh ice water at bedtime and denied any other snacks. He has received his scheduled medications per APR. He made the request to take his cancer medications at least 2 hours before eating. Upon auscultation, his lung sounds were clear, S1/S2 heart sounds could be heard, and his bowel sounds were active. Vital signs have been relatively stable this shift; he is afebrile. At this time, the patient is resting supine in bed. No acute changes noted thus far. Call light within [facility]. called earlier regarding transfer this shift (see prior note) and will continue to do so with the patient's ongoing care. A physical therapy consult has been ordered for the patient.
[2023-12-30 04:00] VITALS: BP 121/58; PULSE 75; RESP 18; TEMP 36.8; O2SAT 96; BMI 35.2
[2023-12-30] MEDS: ACETAMINOPHEN 325MG TAB 650 MG PO (05:05)
[2023-12-30] MEDS: predniSONE 5MG TAB 5 MG PO (05:08)
[2023-12-30] MEDS: ABIRATERONE 250 MG 4 EACH PO (05:11)
[2023-12-30 06:14] LABS: POC Glucose,Bedside 164 (70-110)
[2023-12-30] MEDS: humaLOG 100 UNITS/ML 10ML VIAL (SSI) SUBCUT ×4 (06:31→21:55)
[2023-12-30 08:00] VITALS: BP 132/71; PULSE 73; RESP 18; TEMP 36.9; O2SAT 92
[2023-12-30 08:20] LABS: Basophils % 0.3 % (0.1-2.0); Eosinophils # 0.2 K/mm3 (0.0-0.4); Eosinophils % 2.1 % (0.1-12.0); Hematocrit 34.4 % (42.0-52.0); Hemoglobin 11.3 g/dL (14.1-18.0); Lymphocytes # 1.3 K/mm3 (0.7-4.5); Mean Corpuscular HGB Conc 32.9 g/dL (31.8-35.4); Mean Corpuscular Hemoglobin 33.3 pg (27.0-31.2); Mean Corpuscular Volume 101.1 fl (80-94); Monocytes # 0.5 K/mm3 (0.1-1.0); Monocytes % 6.4 % (1.7-9.3); Neutrophils # 6.3 K/mm3 (1.8-7.8); Neutrophils % 75.2 % (37.0-80.0); Platelet Count 185 K/mm3 (142-424); Red Cell Distribution Width 15.7 % (11.5-17.5); White Blood Count 8.3 K/mm3 (4.8-10.8)
[2023-12-30 08:30] LABS: Chloride 97 mmol/L (98-107)
[2023-12-30 08:31] LABS: Albumin Level 3.6 g/dl (3.5-5.0); Potassium 4.2 mmoL/L (3.5-5.1); Sodium 137 mmol/L (136-145)
[2023-12-30 08:33] LABS: Blood Urea Nitrogen 30 mg/dl (9-20); Creatinine Clearance Estimated 48 mL/min (50-200); Estimated Glomerular Filt Rate 34 ml/min (>60); GFR (African American) 41 ML/MIN (>60)
[2023-12-30 08:34] LABS: Alanine Aminotransferase 19 U/L (12-78); Albumin/Globulin Ratio 1.2 (1.1-1.8); Alkaline Phosphatase 113 U/L (38-126); Anion Gap 9.2 mEq/L (5-15); Aspartate Amino Transferase 27 U/L (17-59); Bilirubin,Total 0.7 mg/dl (0.2-1.3); Calcium 8.2 mg/dl (8.4-10.2); Carbon Dioxide 35 mmol/L (22.0-30.0); Glucose 297 mg/dl (74-100); Total Protein,Serum 6.6 g/dl (6.3-8.2)
--- NOTE | 2023-12-30 09:15 | HMH.PTEV ---
Physical Therapy Evaluation Rehab PT IP Evaluation Start: 12/29/23 22:19 Freq: ONCE Status: Active Protocol: Document 12/30/23 09:02 MELISSA (Rec: 12/30/23 09:15 MELISSA Desktop) Subjective/History History History Per H&P: This is an 83-year- old male with past medical history of T2DM, prostate cancer with chronic indwelling Connell catheter, HLD who presents emergency department for complaints of generalized malaise and fatigue. States that he had an indwelling Connell catheter that was removed last week. States that he saw his provider yesterday and had distended bladder so Connell catheter was replaced at that time. Last night had sudden onset of chills and general malaise and fatigue. Also complained of generalized weakness. Also noted increase in lower extremity edema after his Connell catheter was removed approximately 1 week ago. Denies any chest pain. Endorses chills. Emergency department workup notable for acute cystitis secondary to Connell catheter. Renal function at baseline. Initially patient requested transfer to [facility] who declined. He is on the wait list for at this time. He will be treated for acute cystitis here and transferred if bed becomes available. Subjective Subjective Pt reports he lives alone in a 2-story home (only uses first floor). Pt has 0 RHYS home and is usually IND with all mobility using a SPC. Pt does own a RW. Pt was driving prior to admission. Pt owns a lift chair. Pt has a son who he reports can stay with him temporarily if needed. New diagnosis of cancer in past 12 No months? Rehab PT IP Eval Objective Appearance Patient Behavior Appropriate,Cooperative Patient Orientation Person,Place,Situation Difficulty following instructions none Speech Pattern Clear Ambulation Patient Able to Ambulate Yes Ambulation Observation IP General Gait Pattern Observation Wide Based Gait Ambulation Distance (feet) 40 Ambulation Assistive Device Straight Cane Ambulation Ability Contact Guard/Hand Hold Balance Ability to Arise Able, uses arms to help Sitting Balance Steady, safe Standing Balance Steady, wide stance Dynamic Sitting Balance Ability Fair Dynamic Standing Balance Ability Good Transfers Bed Transfer Ability Minimal x 1 (25% assist) Sit to Stand Bed Transfer Ability Contact Guard/Hand Hold Rehab PT IP prob,goals,plan Problems Date of Evaluation: 12/30/23 PT IP Problems Bed Mobility,Transfers,Gait, Balance,Safety Rehab Potential Rehab Potential Good Equipment Needs Assistive Devices Rolling / Wheeled Walker Plan PT Intervention Plan Bed Mobility,Transfers,Gait, Balance,Safety,Therapeutic Exercise Other Intervention Plan 1-2 times PT Plan Frequency Daily Duration LOS Discharge Goals Bed Transfer Ability Independent Sit to Stand Chair Transfer Ability Independent Ambulation Assistive Device Rolling Walker Ambulation Distance (feet) 100 Discharge Plan PT Discharge Plan Initial PT eval performed. Pt presents below baseline in endurance, strength, balance, and gait. Pt would benefit from skilled acute care PT while at [facility]. Pt is safe to d/ c home when deemed medically necessary with assistance or supervision as needed by son. PT recommending PT services to address deficits. PT also recommending pt use RW to improve safety and gait until pt returns to baseline with his balance and endurance. Eval Complexity Eval Charge Codes 34819 - Moderate Complexity PHYSICIAN CERTIFICATION: I certify the specified therapy services for Braeden Palmer are required, authorized, and reviewed every 30 days.
[2023-12-30] MEDS: ALLOPURINOL 100MG TABLET 100 MG PO ×2 (10:06→21:55)
[2023-12-30] MEDS: CLOPIDOGREL 75MG TAB 75 MG PO (10:07)
[2023-12-30] MEDS: AMLODIPINE 5MG TABLET 5 MG PO ×2 (10:07→21:56)
[2023-12-30] MEDS: ASPIRIN EC 81MG TABLET 81 MG PO (10:07)
[2023-12-30] MEDS: FAMOTIDINE 20MG TABLET 20 MG PO (10:07)
[2023-12-30] MEDS: levoFLOXacin 750 MG TABLET PO (10:08)
[2023-12-30] MEDS: GABAPENTIN 300MG CAPSULE 300 MG PO ×3 (10:08→21:55)
[2023-12-30] MEDS: HYDRALAZINE 10MG TABLET 10 MG PO ×2 (10:08→21:55)
[2023-12-30] MEDS: CALCITRIOL 0.25MCG CAPSULE 0.25 MCG PO (10:08)
[2023-12-30] MEDS: FUROSEMIDE 20MG TABLET 20 MG PO ×2 (10:08→17:11)
--- NOTE | 2023-12-30 11:50 | SW/DCPLANNER ---
Addendum entered by Gale Everett 12/30/23 13:48: [facility]/ [facility] has accepted this patient for services. Original Note: I spoke w/ patient regarding plans once medically stable for discharge. PT evaluated patient and recommended home w/ home health services. Patient is agreeable to home health services at this time. I will set up services at time of discharge. Per MD patient will discharge home this afternoon.
[2023-12-30 11:52] LABS: POC Glucose,Bedside 333 (70-110)
[2023-12-30 12:00] VITALS: BP 116/57; PULSE 73; RESP 20; TEMP 36.8; O2SAT 93
[2023-12-30] MEDS: FUROSEMIDE 40MG/4ML VIAL 40 MG IV (12:04)
[2023-12-30 16:00] VITALS: BP 116/52; PULSE 71; RESP 20; TEMP 36.8; O2SAT 93
[2023-12-30 17:11] LABS: POC Glucose,Bedside 226 (70-110)
--- NOTE | 2023-12-30 18:40 | PC.NURSE ---
Alert and oriented x4. No fevers this shift. Pt ambulating in room with standby assist and was able to give self a bed bath this shift. 3+ pitting edema in BLE. Connell in place and draining well. He is on 1L NC. Pt has had no complaints throughout shift.
[2023-12-30 20:00] VITALS: BP 144/61; PULSE 69; RESP 18; TEMP 36.6; O2SAT 93
--- NOTE | 2023-12-30 21:46 | P.PN_ITS ---
Subjective *Date: 01/05/24 *Time: 12:44 Exam Data for Last 24 hours Vital signs and Labs for Last 24 Hours: Temp Pulse Resp BP Pulse Ox O2 Del Method O2 Flow Rate 98.2 F 71 20 116/52 L 93 L Nasal Cannula 1 12/30/23 16:00 12/30/23 16:00 12/30/23 16:00 12/30/23 16:00 12/30/23 16:00 12/30/23 18:49 12/30/23 18:49 Laboratory Results - last 24 hr 12/30/23 05:17: POC Glucose 164 H 12/30/23 08:08: WBC 8.3, RBC 3.40 L, Hgb 11.3 L, Hct 34.4 L, MCV 101.1 H, MCH 33.3 H, MCHC 32.9, RDW 15.7, Plt Count 185, MPV 9.0, Neut % (Auto) 75.2, Lymph % (Auto) 16.0, [place] % (Auto) 6.4, Eos % (Auto) 2.1, Baso % (Auto) 0.3, Neut # (Auto) 6.3, Lymph # (Auto) 1.3, [place] # (Auto) 0.5, Eos # (Auto) 0.2, Baso # (Auto) 0.0, Sodium 137, Potassium 4.2 D, Chloride 97 L, Carbon Dioxide 35 H, Anion Gap 9.2, BUN 30 H, Creatinine 1.90 H, Estimated Creat Clear 48, Estimated GFR 34 L, Est GFR ( Amer) 41 L, Glucose 297 H, Calcium 8.2 L, Total Bilirubin 0.7, AST 27, ALT 19 D, Alkaline Phosphatase 113, Total Protein 6.6, Albumin 3.6, Globulin 3.0, Albumin/Globulin Ratio 1.2 12/30/23 11:43: POC Glucose 333 H* 12/30/23 17:05: POC Glucose 226 H I & O for Last 24 hours: Intake & Output 12/27/23 12/28/23 12/29/23 12/30/23 23:59 23:59 23:59 23:59 Intake Total 2260 / 2260 1220 / 1220 Output Total 2300 / 3200 4900 / 5350 3625 / 3625 Balance -2300 / -3080 -2640 / -3090 -2405 / -2405 Weight 122.833 kg 122.606 kg 118.161 kg Microbiology Reports for the Last 24 Hours: Microbiology 12/28/23 15:56 Blood Blood Culture - Preliminary NO GROWTH AFTER 48 HOURS 12/28/23 16:00 Blood Blood Culture - Preliminary NO GROWTH AFTER 48 HOURS 12/28/23 14:30 Urine,Clean Catch Urine Culture - Final Klebsiella aerogenes Constitutional Constitutional: no acute distress *Routine HEENT Exam Head: Present normocephalic Eye: Present EOMI and PERRL ENT: Present mucous membranes moist *Routine Neck Exam Neck: Present supple; Absent lymphadenopathy *Routine Respiratory Exam Respiratory: Present CTA bilaterally *Routine Cardiovascular Exam Cardiovascular: Present RRR *Routine Abdominal Exam Abdominal: Present soft and normoactive bowel sounds; Absent tenderness *Routine Extremities Exam Extremities: Present edema; Absent cyanosis or clubbing Comments: 2+ LE pitting edema. *Routine Skin Exam Skin: Present warm; Absent rash *Routine Neurological Exam Neurological: Present alert and oriented X3 Assessment and Plan *Assessment and plan (1) Fever of unknown origin (FUO): Status: Acute Category: Medical Code(s): R50.9 - Fever, unspecified (2) Immunosuppressed status: Status: Acute Category: Medical Code(s): D84.9 - Immunodeficiency, unspecified (3) Sepsis without septic shock: Status: Acute Category: Medical Code(s): A41.9 - Sepsis, unspecified organism (4) HLD (hyperlipidemia): Status: Acute Category: Medical Code(s): E78.5 - Hyperlipidemia, unspecified (5) Catheter-associated urinary tract infection: Status: Acute Category: Medical Code(s): T83.511A - Infection and inflammatory reaction due to indwelling urethral catheter, initial encounter; N39.0 - Urinary tract infection, site not specified Plan #Catheter associated UTI #Sepsis without septic shock, resolved #Immunosuppressive state Urinalysis positive for infection with LE white blood cells and bacteria Connell catheter replaced on admission Urine culture growing Klebsiella a. resistant to ceftriaxone. Switched to Levquin q48h. for a total of 7 day coverage. Patient feels better today, but feels quite weak especially with ambulation. PT consulted, recommended home with home health. Patient is nervous to go home today given his weakness, including ambulating to the bathroom, and that he lives at home by himself. But better than yesterday. Anticipate discharge tomorrow. #HFpEF ? Continue home Lasix 20 mg twice daily. - Continues to have 2+ pitting edema. Given IV lasix 40mg today. ECHO shows relatively normal biventricular systolic function, normal LV diast olic function. #Prostate cancer Continue cancer medications and prednisone as prescribed #CAD Continue aspirin and Plavix #T2DM Continue sliding scale insulin
[2023-12-30] MEDS: PRAVASTATIN 40MG TAB 40 MG PO (21:56)
[2023-12-30] MEDS: TAMSULOSIN 0.4MG CAPSULE 0.4 MG PO (21:56)
[2023-12-30 22:35] LABS: POC Glucose,Bedside 240 (70-110)
[2023-12-31] VITALS: BP 125/78; PULSE 71; RESP 16; TEMP 36.7; O2SAT 93
[2023-12-31 04:00] VITALS: BP 126/54; PULSE 70; RESP 18; TEMP 36.6; O2SAT 90; BMI 34.9
[2023-12-31] MEDS: humaLOG 100 UNITS/ML 10ML VIAL (SSI) SUBCUT ×2 (05:24→10:53)
[2023-12-31] MEDS: predniSONE 5MG TAB 5 MG PO (05:25)
[2023-12-31] MEDS: ABIRATERONE 250 MG 4 EACH PO (05:25)
[2023-12-31 05:47] LABS: POC Glucose,Bedside 187 (70-110)
[2023-12-31 08:00] VITALS: BP 131/56; PULSE 79; RESP 18; TEMP 36.4; O2SAT 94
[2023-12-31] MEDS: ASPIRIN EC 81MG TABLET 81 MG PO (08:07)
[2023-12-31] MEDS: AMLODIPINE 5MG TABLET 5 MG PO (08:07)
[2023-12-31] MEDS: GABAPENTIN 300MG CAPSULE 300 MG PO ×2 (08:07→12:39)
[2023-12-31] MEDS: CLOPIDOGREL 75MG TAB 75 MG PO (08:07)
[2023-12-31] MEDS: FUROSEMIDE 20MG TABLET 20 MG PO (08:07)
[2023-12-31] MEDS: FAMOTIDINE 20MG TABLET 20 MG PO (08:07)
[2023-12-31] MEDS: HYDRALAZINE 10MG TABLET 10 MG PO (08:07)
[2023-12-31] MEDS: ALLOPURINOL 100MG TABLET 100 MG PO (08:07)
[2023-12-31 10:55] LABS: POC Glucose,Bedside 332 (70-110)
--- NOTE | 2024-01-02 13:52 | CARE MANAGER ---
Contacted patient related to hospital discharge. He states he is doing well. He has his antibiotic and denies questions or concerns. He will not be following up with cardiology here. 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 We finally agreed he would follow up with his PCP. MARIA D Abraham
--- NOTE | 2024-01-04 11:03 | EXP.DC.SUM ---
General Admission date:: 12/28/23 HPI HPI HPI: This is an 83-year-old male with past medical history of T2DM, prostate cancer with chronic indwelling Connell catheter, HLD who presents emergency department for complaints of generalized malaise and fatigue. States that he had an indwelling Connell catheter that was removed last week. States that he saw his provider yesterday and had distended bladder so Connell catheter was replaced at that time. Last night had sudden onset of chills and general malaise and fatigue. Also complained of generalized weakness. Also noted increase in lower extremity edema after his Connell catheter was removed approximately 1 week ago. Denies any chest pain. Endorses chills. Emergency department workup notable for acute cystitis secondary to Connell catheter. Renal function at baseline. Initially patient requested transfer to [facility] who declined. He is on the wait list for at this time. He will be treated for acute cystitis here and transferred if bed becomes available. Hospital Course Hospital Course Hospital Course: #Catheter associated UTI #Sepsis without septic shock, resolved #Immunosuppressive state Urinalysis positive for infection with LE white blood cells and bacteria Connell catheter replaced on admission Urine culture growing Klebsiella a. resistant to ceftriaxone. Continue Levquin q48h. for a total of 7 day coverage. Patient feels better today, but feels quite weak especially with ambulation. PT consulted, recommended home with home health. Patient is nervous to go home today given his weakness, including ambulating to the bathroom, and that he lives at home by himself. But better than yesterday. Anticipate discharge tomorrow. Discharged with Levaquin 750mg x2. #HFpEF - LE pitting edema improved to 1+ tpday. ? Switched from Lasix 20mg BID to Lasix 40mg daily. - ECHO shows relatively normal biventricular systolic function, normal LV diastolic function. #Prostate cancer Continue cancer medications and prednisone as prescribed Follow-up with Urology. #CAD Continue aspirin and Plavix #T2DM Continue home insulin. Exam Data for Last 24 hours Vital signs and Labs for Last 24 Hours: Temp Pulse Resp BP Pulse Ox O2 Del Method O2 Flow Rate 97.5 F L 79 18 131/56 L 94 L Room Air 1 12/31/23 08:00 12/31/23 08:00 12/31/23 08:00 12/31/23 08:00 12/31/23 08:00 12/31/23 12:44 12/30/23 18:49 Constitutional Constitutional: no acute distress *Routine HEENT Exam Head: Present normocephalic Eye: Present EOMI and PERRL ENT: Present mucous membranes moist *Routine Neck Exam Neck: Present supple; Absent lymphadenopathy *Routine Respiratory Exam Respiratory: Present CTA bilaterally *Routine Cardiovascular Exam Cardiovascular: Present RRR *Routine Abdominal Exam Abdominal: Present soft and normoactive bowel sounds; Absent tenderness *Routine Extremities Exam Extremities: Present edema; Absent cyanosis or clubbing Comments: 1+ LE pitting edema. *Routine Skin Exam Skin: Present warm; Absent rash *Routine Neurological Exam Neurological: Present alert and oriented X3 DS: Diagnosis Discharge Diagnosis (1) Fever of unknown origin (FUO): Status: Acute Code(s): R50.9 - Fever, unspecified (2) Immunosuppressed status: Status: Acute Code(s): D84.9 - Immunodeficiency, unspecified (3) Sepsis without septic shock: Status: Acute Code(s): A41.9 - Sepsis, unspecified organism (4) HLD (hyperlipidemia): Status: Acute Code(s): E78.5 - Hyperlipidemia, unspecified (5) Catheter-associated urinary tract infection: Status: Acute Code(s): T83.511A - Infection and inflammatory reaction due to indwelling urethral catheter, initial encounter; N39.0 - Urinary tract infection, site not specified Meds Home Medications and Allergies Home Medications ?Medication ?Instructions ?Recorded ?Confirmed ?Type aspirin 81 mg tablet,delayed 81 mg PO DAILY 10/19/18 12/28/23 History release (Adult Low Dose Aspirin) insulin human U-100 NPH-regulr 58 unit SQ BID 08/02/19 12/29/23 History 70-30 mix 100 unit/mL subcutaneous susp (Novolin 70/30 U-100 Insulin) amlodipine 5 mg tablet 5 mg PO BID BP 90 days #180 tabs 09/12/23 12/28/23 Rx abiraterone 250 mg tablet 1,000 mg PO DAILY 10/18/23 12/29/23 History calcitriol 0.25 mcg capsule 0.25 mcg PO MOWEFR 10/18/23 12/29/23 History prednisone 5 mg tablet 5 mg PO DAILY 10/18/23 12/28/23 History hydralazine 10 mg tablet 10 mg PO BID #180 tabs 10/28/23 12/28/23 Rx allopurinol 100 mg tablet 100 mg PO BID 12/29/23 12/28/23 History clopidogrel 75 mg tablet 75 mg PO DAILY 12/29/23 12/28/23 History famotidine 20 mg tablet 20 mg PO DAILY 12/29/23 12/28/23 History gabapentin 300 mg capsule 300 mg PO TID 12/29/23 12/28/23 History simvastatin 40 mg tablet 40 mg PO HS 12/29/23 12/29/23 History tamsulosin 0.4 mg capsule 0.4 mg PO HS 12/29/23 12/29/23 History furosemide 20 mg tablet 40 mg (2 x 20 mg) PO DAILY 30 days 12/31/23 Rx #90 tabs levofloxacin 750 mg tablet 750 mg PO Q48H 4 days #2 tabs 12/31/23 Rx New Prescriptions to Start Prescriptions: Wyatt Shaikh levofloxacin Wyatt Nath Allergies Allergy/AdvReac Type Severity Reaction Status Date / Time No Known Allergies Allergy Verified 10/18/23 11:28 Discharge Plan Disposition Patient Disposition: Home Health Service Condition: Fair Discharge Order Discharge Orders: Discharge Order (Routine); Ordered 12/31/23 Ordered By: Wyatt Nath Follow up Plan Follow up with: Christopher Yadav MD [Primary Care Provider] - Enter time for follow up Scotty Woo MD [Staff Physician] - 01/06/24 Prescriptions/Medication Reconciliation: New levofloxacin 750 mg Tablet 750 mg PO Q48H 4 Days Qty: 2 0RF Continued aspirin [Adult Low Dose Aspirin] 81 mg tablet,delayed release (DR/EC) 81 mg PO DAILY Novolin 70/30 U-100 Insulin 100 unit/mL (70-30) suspension 58 unit SQ BID Patient Comments: INJECT 58 UNITS UNDER THE SKIN IN THE MORNING WITH BREAKFAST THEN 52 UNITS WITH SUPPER prednisone 5 mg tablet 5 mg PO DAILY calcitriol 0.25 mcg capsule 0.25 mcg PO MOWE Patient Comments: TAKE 1 CAPSULE BY MOUTH ON TUESDAY, TUESDAY AND TUESDAY abiraterone 250 mg tablet 1,000 mg PO DAILY amlodipine 5 mg tablet 5 mg PO BID 90 Days Qty: 180 1RF hydralazine 10 mg tablet 10 mg PO BID Qty: 180 1RF tamsulosin 0.4 mg capsule 0.4 mg PO HS Patient Comments: TAKE 1 CAPSULE BY MOUTH ONCE DAILY clopidogrel 75 mg tablet 75 mg PO DAILY allopurinol 100 mg tablet 100 mg PO BID simvastatin 40 mg tablet 40 mg PO HS famotidine 20 mg tablet 20 mg PO DAILY gabapentin 300 mg capsule 300 mg PO TID Changed furosemide 20 mg tablet 40 mg PO DAILY 30 Days Qty: 90 0RF Patient Comments: TAKE 1 TABLET BY MOUTH ONE IN THE MORNING AND ONE AT BEDTIME Problem Reconciliation Problems Reviewed?: Yes Patient Discharge Instructions Patient Instructions: Fever of Unknown Origin, Catheter-Associated Urinary Tract Infection Print Language: Vietnamese Providers Primary Care Provider: Christopher Yadav Admit Provider: Wyatt Nath Attending Provider: Wyatt Nath
== END 2023-12-31 13:08 | disposition home health service (06) ==
LOC: ER 16:51 → 2ND 18:44
PROVIDERS: Nurse Practitioner Acute Care; Physician Assistant; Admitting Provider Student in an Organized Health Care Education/Training Program; Emergency Provider Emergency Medicine; PCP Internal Medicine; Visit Provider Student in an Organized Health Care Education/Training Program
DX: T83.511A Infection and inflammatory reaction due to indwelling urethral catheter, initial encounter (principal); D84.9 Immunodeficiency, unspecified; E78.5 Hyperlipidemia, unspecified; N39.0 Urinary tract infection, site not specified; Z79.899 Other long term (current) drug therapy; Z79.4 Long term (current) use of insulin; E11.9 Type 2 diabetes mellitus without complications; I10 Essential (primary) hypertension; B96.1 Klebsiella pneumoniae [K. pneumoniae] as the cause of diseases classified elsewhere; C61 Malignant neoplasm of prostate; Z79.60 Long term (current) use of unspecified immunomodulators and immunosuppressants; Z79.52 Long term (current) use of systemic steroids
CPT/HCPCS: 36415; 71045; 74176; 80048; 80053; 81001; 82962; 83735; 83880; 85025; 85610; 86803; 87040; 87086; 87088; 87186; 87265; 87389; 87486; 87581; 87632; 87635; 93306; 97162; 97530; 99285; G0378; J0696; J1940; J2543; J3370; J7030; J7512

== ENCOUNTER 2024-09-23 10:21 | Observation (INO) | payer MEDICARE, BC, SELFPAY ==
--- OUTSIDE RECORDS SUMMARY | 2024-09-13 16:45 | XMS_ITS | Encounter Summary ---
Author Organization [employer] ([place], [place], [place], [place]) Address [address] [place] [address] Care Team Providers Care Audit Intern Name Role Phone Christopher Yadav MD Primary Care Provider [phone] Encounter Details Date Type Department Care Team (Latest Contact Info) Description 09/13/2024 4:45 PM EDT Lab Patient Walk-In [facility] Lab [address] [place] [address] Xochitl Serra MD [address] [place] [phone] Prostate cancer (HCC) Social History Tobacco [...] Date Ehsan rded Speak language other than Estonian at home Not on file 03/11/2023 Want [...] Description 12/17/2024 9:45 AM EDT Office Visit [facility] - [address] [place] [address] Xochitl Serra MD [address] [place] [phone] documented as of this encounter Procedures [...] - 720 ng/dL 09/17/2024 12:18 AM EDT [employer] Comment: INTERPRETIVE INFORMATION: Testosterone by Immunoassay Testosterone immunoassays are both imprecise and inaccurate at low testosterone concentrations, such as those found in children and cisgender females. For these individuals, testing by mass spectrometry is recommended; refer to Testosterone (Adult Females, Children, or Individuals on Testosterone-Suppressing Hormone Therapy) ([employer] test code 7970559). Free or bioavailable testosterone measurements may provide supportive information. For individuals on testosterone hormone therapy, refer to cisgender male reference intervals. No reference intervals have been established for males younger than 14 years or for cisgender females. For a complete set of all established reference intervals, refer to ltd.NASOFORM/Tests/Pub/[id number]. Sex Hormone Binding Globulin 64 19 - 76 nmol/L 09/17/2024 12:18 AM EDT [employer] Comment: REFERENCE INTERVAL: Sex Hormone Binding Globulin Access complete set of age- and/or gender-specific reference intervals for this test in the [employer] [facility] Test Directory ([employer]SOFORM). Testosterone, Free Calculation <1(L) 47 - 244 pg/mL 09/17/2024 12:18 AM EDT [employer] Comment: INTERPRETIVE INFORMATION: Testosterone, Free Calculation Free [...] Children, or Individuals on Testosterone-Suppressing Hormone Therapy) ([employer] test code [id number]). For individuals on testosterone hormone therapy, refer to cisgender male reference intervals. No reference intervals have been established for males younger than 14 years or for cisgender females. For a complete set of all established reference intervals, refer to [employer]NASOFORM/Tests/Pub/[id number]. Testosterone, Percentage Free <1.1(L) 1.6 - 2.9 % 09/17/2024 12:18 AM EDT [employer] Comment: Performed By: [facility] [address] [place] [address] Spring [employer] Supervisor: Cameron Javier MD, PhD CLIA Number: [id number] Blood Venipuncture / Unknown 09/13/2024 1:26 PM EDT 09/13/2024 1:26 PM EDT Xochitl Serra MD LAB BLOOD ORDERABLES Final Res ult Performing Organization Address City/[facility]/ZIP Co de Phone Number [employer] [address] [place] [address], [facility] [phone] * (ABNORMAL) PSA (Blazer, LUCIA, [place], [place], [facility]) (09/13/2024 1:26 PM EDT) Pathologist [facility] PSA diagnostic (ng/mL) <0.13(L) 0.13 - 4 ng/mL 09/13/2024 8:40 PM EDT [facility] Blood Venipuncture / Unknown 09/13/2024 1:26 PM EDT 09/13/2024 1:26 PM EDT Xochitl Serra MD LAB BLOOD ORDERABLES Final Res ult [facility] [address] [place] [address], [facility] [phone] * (ABNORMAL) CMP (09/13/2024 1:26 PM EDT) Sodium 140 136 - 145 meq/L 09/13/2024 3:48 PM EDT [facility] Potassium 4.5 3.5 - 5.1 meq/L 09/13/2024 3:48 PM EDT [facility] Chloride 101 98 - 107 meq/L 09/13/2024 3:48 PM EDT [facility] CO2 33(H) 21 - 32 meq/L 09/13/2024 3:48 PM EDT [facility] Calcium 9.3 8.5 - 10.1 mg/dL 09/13/2024 3:48 PM EDT [facility] Glucose 237(H) 74 - 100 mg/dL 09/13/2024 3:48 PM EDT [facility] BUN 39(H) 7 - 18 mg/dL 09/13/2024 3:48 PM EDT [facility] Creatinine 1.93(H) 0.70 - 1.20 mg/dL 09/13/2024 3:48 PM EDT [facility] BUN/Creatinine 20 09/13/2024 3:48 PM EDT [facility] Albumin 3.6 3.4 - 5.0 g/dL 09/13/2024 3:48 PM EDT [facility] Alkaline Phosphatase 151(H) 46 - 116 U/L 09/13/2024 3:48 PM EDT [facility] ALT 19 12 - 78 U/L 09/13/2024 3:48 PM EDT [facility] AST 17 15 - 37 U/L 09/13/2024 3:48 PM EDT [facility] Total Bilirubin 0.5 0.2 - 1.0 mg/dL 09/13/2024 3:48 PM EDT [facility] Protein, Total 7.0 6.4 - 8.2 gm/dL 09/13/2024 3:48 PM EDT [facility] Anion Gap 11 11 - 22 09/13/2024 3:48 PM EDT [facility] A/G Ratio 1.1 09/13/2024 3:48 PM EDT [facility] Globulin 3.4 g/dL 09/13/2024 3:48 PM EDT [facility] Osmolality Calc 296.5 mOsm/kg 3:48 PM EDT [facility] eGFR (mL/min/1.73m2) 33(L) >=60 mL/min/1.7 3m2 09/13/2024 3:48 PM EDT [facility] Comment:ESTIMATED GFR IS NOT ACCURATE CREATININE CLEARANCE IN PREDICTING GLOMERULAR FILTRATION RATE. ESTIMATED GFR IS NOT APPLICABLE FOR DIALYSIS PATIENTS. Blood Venipuncture / Unknown 09/13/2024 1:26 PM EDT 09/13/2024 1:26 PM EDT us Xochitl Serra MD LAB BLOOD ORDERABLES Final Res ult [facility] [address] [place] [address] * (ABNORMAL) CBC with Diff (09/13/2024 1:26 PM EDT) WBC 9.3 4.8 - 10.8 K/ L 09/13/2024 1:39 PM EDT [facility] RBC 3.28(L) 3.80 - 5.20 M/ L 09/13/2024 1:39 PM EDT [facility] Hemoglobin 11.3(L) 12.8 - 17.4 GM/DL 09/13/2024 1:39 PM EDT [facility] Hematocrit 34.2(L) 39.0 - 51.0 % 09/13/2024 1:39 PM EDT [facility] MCV 104(H) 81 - 101 fL 09/13/2024 1:39 PM EDT [facility] MCH 34.5(H) 27.0 - 34.0 pg 09/13/2024 1:39 PM EDT [facility] MCHC 33.0 32.0 - 36.0 GM/DL 09/13/2024 1:39 PM EDT [facility] RDW 14.5 11.5 - 14.5 % 09/13/2024 1:39 PM EDT [facility] Platelets 202 150 - 400 K/CU MM 09/13/2024 1:39 PM EDT [facility] MPV 9.9 9.4 - 12.4 fL 09/13/2024 1:39 PM EDT [facility] Nucleated Red Blood Cell 0.0 0 - 0.2 % 09/13/2024 1:39 PM EDT [facility] % Neutros 75 37 - 80 % 09/13/2024 1:39 PM EDT [facility] % Lymphs 16 10 - 50 % 09/13/2024 1:39 PM EDT [facility] % Monos 7 5 - 13 % 09/13/2024 1:39 PM EDT [facility] % Eos 0 0 - 7 % 09/13/2024 1:39 PM EDT [facility] % Baso 0 0 - 3 % 09/13/2024 1:39 PM EDT [facility] NRBC Absolute <0.01 0 - 0.012 K/ul 09/13/2024 1:39 PM EDT [facility] # Neutros 7.02(H) 2.00 - 6.90 K/ L 09/13/2024 1:39 PM EDT [facility] # Lymphs 1.51 0.60 - 3.40 K/ L 09/13/2024 1:39 PM EDT [facility] # Monos 0.69 0.00 - 0.90 K/ L 09/13/2024 1:39 PM EDT [facility] # Eos 0.03 0.00 - 0.70 K/ L 09/13/2024 1:39 PM EDT [facility] # Baso 0.02 0.00 - 0.20 K/ L 09/13/2024 1:39 PM EDT [facility] Immature Granulocytes-Re lative 0.50 % 09/13/2024 1:39 PM EDT [facility] # IG 0.05(H) 0.00 - 0.00 K/uL 09/13/2024 1:39 PM EDT [facility] Blood Venipuncture / Unknown 09/13/2024 1:26 PM EDT 09/13/2024 1:26 PM EDT Narrative [facility] - 09/13/2024 1:39 PM [...] MD LAB BLOOD ORDERABLES Final Res ult [facility] [address] [phone] documented in this encounter Visit Diagnoses Diagnosis Prostate cancer (HCC) Malignant neoplasm of prostate documented in this encounter Care Teams Audit Intern Relationship Specialty Start Date End Date Christopher Yadav MD [address] [place] [address] PCP - General General Internal Medicine 03/15/23 documented as of this encounter
--- OUTSIDE RECORDS SUMMARY | 2024-09-17 09:00 | XMS_ITS | Encounter Summary ---
Author Organization [facility] ([place], [place], [place], [place]) Address [address] [place] [address] Care Team Providers Care Regional Loss Prevention Manager Name Role Phone Christopher Yadav MD Primary Care Provider [phone] Reason for Visit * Reason Comments Follow-up Prostate Cancer Encounter Details Date Type Department Care Team (Late st Contact Info) Description 09/17/2024 9:00 AM EDT Office Visit [facility] - [address] [place] [address] Xochitl Serra MD [address] [address] Prostate cancer (HCC) (Primary Dx); Renal dysfunction Social History Tobacco Use Types Packs/Day Years [...] Date Ehsan rded Speak language other than Cymraes at home Not on file 03/11/2023 Want [...] Juliana Poe RN documented in this encounter Progress Notes * Xochitl Serra MD - 09/17/2024 9:00 AM EDT Chief Complaint: Difficulty urinating. History of Present Illness: Braeden Palmer is a 84 y.o. male who presents today for evaluation of prostate cancer. He developed urinary retention at the end of June and required hernandez catheter placement. He was seen by Dr. Mata who performed a cystoscopy and transperineal prostate biopsy for nodular prostate . His PSA was 32. Pathology showed prostate cancer in every core with [place] score of 7 or 8. Cancer volumes varied from 20-95% of the cores. Some cores showed perineural invasion. He is here today for discussion of treatment options. He had been in his normal state of health prior to his urinary retention, he had LUTS for years but he was able to void adequately until recently. He has no bone pain ay this time. He has a history of coronary artery disease and has had a coronary stent placed. He hasn't smoked since 1980. No family history of prostate cancer. His only complaint is discomfort associated with his hernandez catheter. 09/13/23 - Mr. Palmer returns in follow up for his high risk prostate cancer. He had his appointment with Dr. Maynard at who agreed that ADT would be appropriate. He is here for bone scan results also. 10/25/23 - Mr. Palmer returns in follow up for his high risk prostate cancer. He is receiving Eligardand Xytiga. He has no complaints of side effects from his medication, denies hot flashes and worsening fatigue. He has a hernandez catheter and is hoping it can be removed at his next visit with Dr. Mata in early October. 12/20/23 - Mr. Palmer returns in follow up for his Stage IV prostate cancer. He has been feeling well and his lower extremity edema has markedly improved. He has no new pain and denies any hot flashes. His hernandez catheter remains in place but he is going to see Dr. Mata for a trial without his catheter tomorrow. 03/20/24 - Mr. aPlmer returns in follow up for Stage IV prostate cancer. He underwent a Turp using saline vaporization technique at on 03/08/[address] Maynard. He had his cathter removed about one week ago. He has been doing fairly well but he has had bleeding daily with some fresh blood and some clots noted. He has no pain or urgency symptoms. He denies fever and chills. He is here today for his next Eligard injection. 03/26/24 - Mr. Palmre returns in follow up to recheck his labs to assess his renal function. He has no new complaints and has been seeing much less blood in his urine over the past few days. He continues to urinate without a catheter. 06/18/24 - Mr. Palmer returns in follow up of his Stage IV CSPC. He has no new complaints but he is concerned that his fatigue is worsening. He Has no new pain and no new urinary symptoms. He has had some increase in his LE edema and he began taking his Lasix at 40 mg per day instead of 20 mg per dayabout 10 days ago. He thinks that his edema is decreasing a bit with the increased dose of Lasix. 09/17/24 - Mr. Palmer continues to complain of worsening fatigue. He also has had some increased pedal edema but he increased his Lasix and feels that it has helped. He has no new pain or other complaints. Past Medical History: Diagnosis Date Arthritis Coronary artery disease Diabetes mellitus (HCC) Elevated PSA Fluid retention in legs GERD (gastroesophageal reflux disease) Gout High cholesterol Hypertension Left hip pain Neuropathy Prostate cancer (HCC) Urinary retention Urinary retention Vitamin D deficiency Past Surgical History: Procedure Laterality Date ARTHROPLASTY,HIP-ANTERIOR APPROACH Left 03/21/2023 Procedure: LEFT TOTAL HIP ARTHROPLASTY, DIRECT ANTERIOR APPROACH; Surgeon: Eric Parkinson MD; Location: [facility]; Service: Orthopaedic Surgery; Laterality: Left; EXACTECH, HANA TABLE, C-ARM & PRINTER, CELL SAVER COLONOSCOPY multiple CORONARY ANGIOPLASTY WITH STENT PLACEMENT EYE SURGERY Bilateral catract extraction MANDIBLE SURGERY WY BX PROSTATE STRTCTC SATURATION SAMPLING IMG GID N/A 08/16/2023 Procedure: BIOPSY, PROSTATE, PERINEAL APPROACH; Surgeon: Samuel Mata MD; Location: [facility]; Service: Urology; Laterality: N/A; [facility] [phone] Social History Socioeconomic History Marital status: / Tobacco Use Smoking status: Former Current packs/day: 0.00 Types: Cigarettes Quit date: 1981 Years since quittin.5 Smokeless tobacco: Never Vaping Use Vaping status: Never Used Substance and Sexual Activity Alcohol use: Not Currently Drug use: Never Social Drivers of Health Transportation: Unknown (03/21/2023) PRAPARE - Transportation Lack of Transportation (Medical): No No family history on file. Allergies: Patient has no known allergies. Medications: Current Outpatient Medications on File Prior to Visit Medication Sig Dispense Refill allopurinoL (ZYLOPRIM) 100 MG tablet Take 1 tablet (100 mg total) by mouth daily. amLODIPine (NORVASC) 5 MG tablet Take 1 tablet (5 mg total) by mouth daily. aspirin 81 MG EC tablet Take 1 tablet (81 mg total) by mouth daily. calcitrioL (ROCALTROL) 0.25 MCG capsule Take 1 capsule (0.25 mcg total) by mouth 3 (three) times a week MON/WED/FRI. clopidogreL (PLAVIX) 75 mg tablet Take 1 tablet (75 mg total) by mouth daily. (Patient not taking: Reported on 03/26/2024.) coenzyme Q10 100 mg capsule Take 1 capsule (100 mg total) by mouth daily. famotidine (PEPCID) 20 MG tablet Take 1 tablet (20 mg total) by mouth daily. furosemide (LASIX) 20 MG tablet Take 2 tablets (40 mg total) by mouth daily. gabapentin (NEURONTIN) 300 MG capsule 1 capsule in the morning and 2 capsules at night hydrALAZINE (APRESOLINE) 10 MG tablet Take 1 tablet (10 mg total) by mouth 2 (two) times daily. insulin 70/30, insulin NPH-insulin regular, (HumuLIN 70/30) 100 unit/mL (70-30) injection Inject 58Units subcutaneously Dosing according to Blood Glucose level 48 units AM 22-28 units PM. simvastatin (ZOCOR) 40 MG tablet Take 1 tablet (40 mg total) by mouth nightly. sulfamethoxazole-trimethoprim (Bactrim DS) 800-160 mg per tablet Take 1 tablet by mouth 2 (two) times daily. 6 tablet 0 tamsulosin (FLOMAX) 0.4 mg Cap 24 hr capsule SMARTSI Capsule(s) By Mouth Every Evening No current facility-administered medications on file prior to visit. Review of Systems: Review of Systems Constitutional: Positive for fatigue. Negative for chills, diaphoresis and fever. HENT: Negative. Respiratory: Negative. Cardiovascular: Negative. Gastrointestinal: Negative. Genitourinary: Positive for difficulty urinating, dysuria, frequency and urgency. Neurological: Negative. Vitals There were no vitals filed for this visit. Physical Exam Vitals reviewed. Constitutional: Appearance: Normal appearance. He is normal weight. Comments: Mr. Palmer is a pleasant male, appears to be stated age. Alert and oriented and cooperative. HENT: Head: Normocephalic and atraumatic. Cardiovascular: Rate and Rhythm: Normal rate and regular rhythm. Heart sounds: Normal heart sounds. Pulmonary: Effort: Pulmonary effort is normal. Breath sounds: Normal breath sounds. Abdominal: General: Abdomen is flat. Bowel sounds are normal. Palpations: Abdomen is soft. Skin: General: Skin is warm and dry. Neurological: General: No focal deficit present. Mental Status: He is alert. Relevant Results: Lab Patient Walk-In on 09/13/2024 Component Date Value Ref Range Status WBC 09/13/2024 9.3 4.8 - 10.8 K/??L Final RBC 09/13/2024 3.28 (L) 3.80 - 5.20 M/??L Final Hemoglobin 09/13/2024 11.3 (L) 12.8 - 17.4 GM/DL Final Hematocrit 09/13/2024 34.2 (L) 39.0 - 51.0 % Final MCV 09/13/2024 104 (H) 81 - 101 fL Final MCH 09/13/2024 34.5 (H) 27.0 - 34.0 pg Final MCHC 09/13/2024 33.0 32.0 - 36.0 GM/DL Final RDW 09/13/2024 14.5 11.5 - 14.5 % Final Platelets 09/13/2024 202 150 - 400 K/CU MM Final MPV 09/13/2024 9.9 9.4 - 12.4 fL Final Nucleated Red Blood Cell 09/13/2024 0.0 0 - 0.2 % Final % Neutros 09/13/2024 75 37 - 80 % Final % Lymphs 09/13/2024 16 10 - 50 % Final % Monos 09/13/2024 7 5 - 13 % Final % Eos 09/13/2024 0 0 - 7 % Final % Baso 09/13/2024 0 0 - 3 % Final NRBC Absolute 09/13/2024 <0.01 0 - 0.012 K/ul Final # Neutros 09/13/2024 7.02 (H) 2.00 - 6.90 K/??L Final # Lymphs 09/13/2024 1.51 0.60 - 3.40 K/??L Final # Monos 09/13/2024 0.69 0.00 - 0.90 K/??L Final # Eos 09/13/2024 0.03 0.00 - 0.70 K/??L Final # Baso 09/13/2024 0.02 0.00 - 0.20 K/??L Final Immature Granulocytes-Relative 09/13/2024 0.50 % Final # IG 09/13/2024 0.05 (H) 0.00 - 0.00 K/uL Final Sodium 09/13/2024 140 136 - 145 meq/L Final Potassium 09/13/2024 4.5 3.5 - 5.1 meq/L Final Chloride 09/13/2024 101 98 - 107 meq/L Final CO2 09/13/2024 33 (H) 21 - 32 meq/L Final Calcium 09/13/2024 9.3 8.5 - 10.1 mg/dL Final Glucose 09/13/2024 237 (H) 74 - 100 mg/dL Final BUN 09/13/2024 39 (H) 7 - 18 mg/dL Final Creatinine 09/13/2024 1.93 (H) 0.70 - 1.20 mg/dL Final BUN/Creatinine 09/13/2024 20 Final Albumin 09/13/2024 3.6 3.4 - 5.0 g/dL Final Alkaline Phosphatase 09/13/2024 151 (H) 46 - 116 U/L Final ALT 09/13/2024 19 12 - 78 U/L Final AST 09/13/2024 17 15 - 37 U/L Final Total Bilirubin 09/13/2024 0.5 0.2 - 1.0 mg/dL Final Protein, Total 09/13/2024 7.0 6.4 - 8.2 gm/dL Final Anion Gap 09/13/2024 11 11 - 22 Final A/G Ratio 09/13/2024 1.1 Final Globulin 09/13/2024 3.4 g/dL Final Osmolality Calc 09/13/2024 296.5 mOsm/kg Final eGFR (mL/min/1.73m2) 09/13/2024 33 (L) >=60 mL/min/1.73m2 Final ESTIMATED GFR IS NOT ACCURATE CREATININE CLEARANCE IN PREDICTING GLOMERULAR FILTRATION RATE. ESTIMATED GFR IS NOT APPLICABLE FOR DIALYSIS PATIENTS. PSA diagnostic (ng/mL) 09/13/2024 <0.13 (L) 0.13 - 4 ng/mL Final Testosterone by Immunoassay 09/13/2024 <3 (L) 300 - 720 ng/dL Final INTERPRETIVE INFORMATION: Testosterone by Immunoassay Testosterone immunoassays are both imprecise and inaccurate at low testosterone concentrations, such as those found in children and cisgender females. For these individuals, testing by mass spectrometry is recommended; refer to Testosterone (Adult Females, Children, or Individuals on Testosterone-Suppressing Hormone Therapy) ([employer] test code [id number]). Free or bioavailable testosterone measurements may provide supportive information. For individuals on testosterone hormone therapy, refer to cisgender male reference intervals. No reference intervals have been established for males younger than 14 years or for cisgender females. For a complete set of all established reference intervals, refer to [employer]/Tests/Pub/[id number]. Sex Hormone Binding Globulin 09/13/2024 64 19 - 76 nmol/L Final REFERENCE INTERVAL: Sex Hormone Binding Globulin Access complete set of age- and/or gender-specific reference intervals for this test in the [facility] Test Directory ([employer]). Testosterone, Free Calculation 09/13/2024 <1 (L) 47 - 244 pg/mL Final INTERPRETIVE INFORMATION: Testosterone, Free Calculation Free testosterone [...] Children, or Individuals on Testosterone-Suppressing Hormone Therapy) ([employer] test code [id number]). For individuals on testosterone hormone therapy, refer to cisgender male reference intervals. No reference intervals have been established for males younger than 14 years or for cisgender females. For a complete set of all established reference intervals, refer to [employer]/Tests/Pub/[id number]. Testosterone, Percentage Free 09/13/2024 <1.1 (L) 1.6 - 2.9 % Final Performed By: [facility] [address] [place] [id number] Patient Monitor: Cameron Javier MD, PhD CLIA Number: [id number] Radiology Results (last 7 days) No results found for the last 168 hours. Narrative & Impression TOTAL BODY BONE SCAN HISTORY: Prostate cancer. COMPARISON: Existing relevant imaging studies: None. PROCEDURE: The patient was injected with 20.16 mCi of technetium 99m MDP. Three hour delayed images were obtained. FINDINGS: Renal and soft tissue uptake are normal . There is activity identified in the medial aspect of the left clavicle, may be due to osteoarthritis of the left sternoclavicular joint. Increased activity is identified involving the acromioclavicular joints bilaterally, probably degenerative. There is extensive abnormal activity in the region of the left femoral neck and intertrochanteric region. This may be due to a left hip prosthesis. There is no definite evidence of metastatic disease. IMPRESSION: No definite evidence of osseous metastatic disease. Left femur activity, may be related to left hip prosthesis. Other degenerative related activity as above. Images reviewed, interpreted, and dictated by Dr. Oscar Jyoa. Transcribed by Marci Boyd PA-C. Specimen Collected: 08/30/23 14:52 EDT Last Resulted: 08/30/23 15:14 EDT PET/CT PSMA VERTEX TO THIGH Order: [id number] Impression Multifocal intense PSMA-avid uptake within the prostate, in keeping with diffuse neoplastic involvement. Suspected possible tumoral involvement of the right seminal vesical base. Multistation predominantly sub-5 mm retroperitoneal veronica metastasis ascending via the posterior mediastinum to involve the left supraclavicular station and also involving the left inguinal station. Few variably PSMA-avid sclerotic osseous metastases throughout the axial skeleton. No pathologic fractures noted. CRITICAL RESULT: No. COMMUNICATION: Per this written report. Drafted by Matt Aguilera MD on 09/29/2023 4:26 PM Final report signed by Matt Aguilera MD on 09/30/2023 12:12 AM Narrative CLINICAL INDICATION: Staging for biopsy proven prostate CA, every core positive for GrGp 4 or 5 prostate cancer with perineural invasion present, cancer volumes ranging from 20 - 95% of the cores, PSA of 32 ng/ml. CT andBone scan negative for obvious mets, but do show some non-specific bone lesions. TECHNIQUE: Radiopharmaceutical: 9.4 mCi of F-18 piflufolastat (PSMA, Pylarify) administered intravenously at right forearm at 3:04 PM. Incubation interval: 55 minutes. Oral contrast: Not applicable. Positioning: Arms by sides. PET/CT scanner: Siemens Biograph 40 mCT. PET/CT acquisition: [id number]. Standardized uptake value (SUV): Corrected for body weight only. CT: Low-dose, [id number], without intravenous contrast. TOTAL DLP (Dose Length Product): 1699.37 mGy.cm mGy*cm. COMPARISON/CORRELATION: No comparison PET/CT. Whole-body bone scintigraphy 08/30/2023. Outside CT chest, abdomen and pelvis 07/27/2023. FINDINGS: Technical quality: Diagnostic. Measurements: Unless otherwise specified, all SUVs refer to maximum value in the target (mSUV). CT linear measurements performed on axial images. Head and Neck: Presumably metastatic poorly resolved moderately to intensely PSMA-avid sub 5 mm left supraclavicular lymph node on image 99 with SUV max of 5.9. No discrete space-occupying brain parenchymal masses. Right maxillary mucous retention cyst. Moderate to severe carotid calcific atherosclerosis. Unremarkable thyroid. Chest: Presumably metastatic moderately to intensely PSMA-avid sub 5 mm left paraesophageal/para-aortic lymph node on image 1:30 with SUV max of 6.4. No additional convincingly suspicious PSMA avid or pathologically enlarged thoracic adenopathy. Enlarged appearing left atrium. Severe coronary and aortic arch calcific atherosclerosis. Calcifiedmediastinal nodes which are presumably chronic granulomatous. No suspicious sizable pulmonary nodules to suggest metastatic disease. No pleural or pericardial effusions. Abdomen and Pelvis: Multifocal intense PSMA-avid uptake within the prostate, in keeping with diffuse neoplastic involvement, SUV max ranging up to 28.7. Suggestion of possible right seminal vesicle invasion, with contiguous PSMA uptake localizing to the base of the right seminal vesicle on image 284. Multiple intensely PSMA avid sub-5 mm veronica metastasis throughout the abdominal and pelvic retroperitoneum spanning from the right retrocrural to the left inguinal stations, few salient examples below: * 4-5 mm right retrocrural node on image 188 with SUV max of 13.7 * 4-5 mm aortocaval lymph node on image 224 with SUV max of 10.0 * A nonresolvable left external iliac lymph node on image 275 with SUV max of 19.7 * 5 mm short axis left inguinal lymph node on image 292 with SUV max of 8.7 No discrete suspicious focal lesions on this contrast exam. Cholelithiasis without evidence of acute cholecystitis. Presumed left renal cortical cysts. Normal caliber hollow viscera. Moderate to severe nonaneurysmal aortoiliac calcific atherosclerosis. No suspicious sizable mesenteric/peritoneal masses. No ascites. Skeleton and Soft Tissues: Few variably PSMA-avid sclerotic osseous metastases throughout the axial skeleton, for example: * Single intensely PSMA avid sclerotic lesion along the posterior superior T4 vertebral body on image 113 with SUV max of 15.8 * Mildly PSMA avid sclerotic right anterior third rib lesion on image 121 with SUV max of 3.4. * Mildly PSMA avid sclerotic right iliac bone lesion on image 225 with SUV max of 3.5. No suspicious PSMA avid masses within the body wall soft tissues. Diffuse osteopenia. Advanced multilevel spondylotic and large joint osteoarthritic changes. Exam End: 09/29/23 15:14 Last Resulted: 09/29/23 23:12 ORDERS: No orders of the defined types were placed in this encounter. Plan: Cancer Staging Prostate cancer (HCC) Staging form: Prostate, AJCC 8th Edition - Pathologic stage from 08/23/2023: No Stage Recommended (pT2, cN1, cM1b, PSA: 32, Grade Group: 5) -Signed by Xochitl Serra MD on 12/20/2023 Mr. Palmer is an 83 year old male with recent diagnosis of high risk prostate cancer. CT scan is negative for bone mets. He has not had any bone specific imaging, I am going to send him for a bone scan. He will need some treatment and I recommended ADT. They have an appointment scheduled with Dr. Maynard at for a second opinion so I will hold off on his therapy until he completes the evaluation at .I will see him back in a couple of weeks with bone scan results and discussion of treatment options. 09/13/23 - Mr. Palmer has high risk prostate cancer with no evidence of mets on bone scan. He has a PSMA PET pending. I discussed options for treatment with the patient and his son and recommended Eligard and Zytiga with prednisone. I will see him back in about 6 weeks to see how he is tolerating hismedication and to check a PSA and testosterone level. He is to call if new problems or questions arise in the interim. 10/25/23 - Mr. Palmer is doing well overall. He has Stage IV prostate cancer based on his PSMA PET. He is going to continue on ADT and it is hoped that he will have a response that will allow him to function without a hernandez catheter. He is going to follow up with me in November at the time of his nextEligard injection. He is going to get labs today and also on return. He is to call if new problems or questions arise in the interim. 12/20/23 - Mr. Palmer is feeling better and the improvement in his LE edema has made him more mobile. He is due for his Eligard injection today. His PSSA is now undetectable. I will plan to see him in3 months with labs. He is to call if new questions or problems arise in the interim. 03/20/24 - Mr. Palmer seems to e doing well and his bleeding is likely secondary to his recent procedure. I advised him to let Dr. Maynard know about his bleeding and he is to hold his Plavix until this is resolved. His creatinine is up today at 2.53. He normally has a creatinine of around 1.6 - 1.9. Ihad him get a stat renal ultrasound which showed no evidence of obstruction or hydronephrosis. He is going to follow up with his [employer] Administrator in 2 weeks. He is going to return to see me in 1 week with a BMP to be sure his creatinine isn't continuing to rise. His PSA was undetectable today. He is tocall if new questions or problems arise in the interim. 06/18/24 - Mr. Palmer is doing well except for his worsening fatigue. His PSA is undetectable today. We discussed the possibility of a medication holiday from his ADT if the fatigue continues to negatively impact his quality of life. He is going to receive his next injection today and then we will see him back in 3 months and decide whether to give him a drug holiday at that time. He is to follow up in 3 months with labs. He is to call if he has new questions or problems in the interim. 09/17/24 - Mr. Palmer wants to discontinue his hormone therapy to see if his fatigue improves. I am not opposed to this because he understands the risks and we will keep a close watch on his PSA. His PSA remains undetectable today. He is going to keep his follow up appointments with his other physicians and see me back in 3 months with labs. He is to call if new questions or problems arise in the interim. . Signed: Electronically signed by Xochitl Serra MD 09/17/24 9:16 AM EDT documented in this encounter Plan of Treatment Upcoming Encounters Date Type Department Care Team (Late st Contact Info) Description 12/17/2024 9:45 AM EDT Office Visit [facility] - [address] [place] [address] Xochitl Serra MD [address] [address] Scheduled Orders Name Type Priority Associated Diagnoses Orde r Schedule CBC with Diff Lab Routine Prostate cancer (HCC) Renal dysfunction Expected: 09/17/2024, Expires: 09/17/2025 CMP Lab Routine Prostate cancer (HCC) Renal dysfunction Expected: 09/17/2024, Expires: 09/17/2025 PSA ([facility]) Lab Routine Prostate cancer (HCC) Renal dysfunction Expected: 09/17/2024, Expires: 09/17/2025 documented as of this encounter Visit Diagnoses Diagnosis Prostate cancer (HCC)- Primary Malignant neoplasm of prostate Renal dysfunction Unspecified disorder of kidney and ureter documented in this encounter Care Teams Regional Loss Prevention Manager Relationship Specialty Start Date End Date Christopher Yadav MD [address] [place] [address] [place] [id number] PCP - General General Internal Medicine 03/15/23 documented as of this encounter
[2024-09-23] VITALS (16 sets, daily range): BP systolic 109–152; BP diastolic 48–78; PULSE 70–95; RESP 14–23; TEMP 36.8–37.6; O2SAT 84–98; BMI 37.7; BMI 37.3
--- OUTSIDE RECORDS SUMMARY | 2024-09-23 10:29 | XMS_ITS | Encounter Summary ---
Author Organization Healthcare Address [address] [place] [address] Care Team Providers Care Career And Transition Teacher Name Role Phone Christopher Yadav MD Primary Care Provider [phone] Encounter Details Date Type Department Care Team (Late st Contact Info) Description 07/27/2023 Orders Only External Location [address] [place] [address] Provider, External Social History Tobacco Use Types Packs/Day Years Used Date Smoking Tobacco: Former Alcohol Use Standard Drinks/Week Comments Not Currently 0 (1 standard drink = 0.6 oz pure alcohol) Alcoholic Drinks/day: Former consumption of alcohol Sex and Gender Information Value Date Recorded Sex Assigned at Male 03/08/2024 5:20 AM EST Legal Sex Male 6:57 PM EDT Gender Identity Not on file Sexual Orientation Not on file documented as of this encounter Plan of Treatment Not on file documented as of this encounter Procedures Procedure Name Priority Date/Time Associated Diagnosis Comments CT MSK OUTSIDE IMAGES 07/27/2023 11:34 PM EDT documented in this encounter Results * CT MSK OUTSIDE IMAGES (07/27/2023 11:34 PM EDT) Anatomical Region Laterality Modality Computed Tomogra phy 07/27/2023 11:3 4 PM EDT us External Provider IMG CT PROCEDURES Final Result documented in this encounter Visit Diagnoses Not on filedocumented in this encounter Care Teams Career And Transition Teacher Relationship Specialty Start Date End Date Christopher Yadav MD [address] [facility] [address] [place] [address] PCP - General 07/11/20 documented as of this encounter
--- OUTSIDE RECORDS SUMMARY | 2024-09-23 10:29 | XMS_ITS | Encounter Summary ---
Author Organization Healthcare Address [address] [place] [address] Care Team Providers Care Inside Technical Sales Representative Name Role Phone Christopher Yadav MD Primary Care Provider [phone] Encounter Details Date Type Department Care Team (Late st Contact Info) Description 2023 Lab Requisition [facility] [address] [place] [address] Jamil Maynard MD [address] [facility] [address] [place] [phone] Elevated prostate specific antigen (PSA) Social History Tobacco Use Types Packs/Day Years [...] Procedure Name Priority Date/Time Associated Diagnosis Comments SURGICAL PATHOLOGY CONSULT Routine 2023 1:12 PM EDT Elevated prostate specific antigen (PSA) documented in this encounter Results * Surgical Pathology Consult (2023 1:12 PM EDT) Case Report Sugical Pathology Consult Case: [id number] Authorizing Provider: Jamil Maynard MD Collected: 2023 1312 Ordering Location: [facility] Lab Received: 2023 1312 Pathologist: Donna Villalobos MD Specimen: Prostate, [id number] 08/25/2023 10:39 AM EDT [facility] Final Diagnosis PROSTATE, NEEDLE CORE BIOPSIES (REVIEW OF OUTSIDE SLIDES LABELED SM [id number], PROCEDURE DATE 08/16/2023). A. PROSTATE, RIGHT POSTERIOR MEDIAL, BIOPSY: - PROSTATIC ADENOCARCINOMA, RIMA GRADE 4+5=9, INVOLVING APPROXIMATELY 95% OF 2 OF 2 CORES. B. PROSTATE, RIGHT POSTEROLATERAL, BIOPSY: - PROSTATIC ADENOCARCINOMA, RIMA GRADE 4+5=9, INVOLVING APPROXIMATELY 95% OF 2 OF 2 CORES. C. PROSTATE, RIGHT ANTERIOR MEDIAL, BIOPSY: - PROSTATIC ADENOCARCINOMA, RIMA GRADE 4+4=8, INVOLVING APPROXIMATELY 50% OF 1 OF 1 CORE. D. PROSTATE, RIGHT ANTERIOR LATERAL, BIOPSY: - PROSTATIC ADENOCARCINOMA, RIMA GRADE 4+4=8, INVOLVING APPROXIMATELY 80% OF 1 OF 1 CORE. E. PROSTATE, LEFT POSTERIOR MEDIAL, BIOPSY: - PROSTATIC ADENOCARCINOMA, RIMA GRADE 4+5=9, INVOLVING APPROXIMATELY 95% OF 1 OF 1 CORE. F. PROSTATE, LEFT POSTEROLATERAL, BIOPSY: - PROSTATIC ADENOCARCINOMA, RIMA GRADE 4+5=9, INVOLVING APPROXIMATELY 95% OF 1 OF 1 CORE. G. PROSTATE, LEFT ANTERIOR MEDIAL, BIOPSY: - PROSTATIC ADENOCARCINOMA, RIMA GRADE 4+4=8, INVOLVING APPROXIMATELY 70% OF 1 OF 1 CORE. H. PROSTATE, LEFT ANTERIOR LATERAL, BIOPSY: - PROSTATIC ADENOCARCINOMA, RIMA GRADE 4+4=8, INVOLVING APPROXIMATELY 20% OF 1 OF 1 CORE. 08/25/2023 10:39 AM EDT [facility] at 1038 EDT Comment Perineural invasion is identified. Cribriform pattern 4 is also seen. 08/25/2023 10:39 AM EDT [facility] Clinical Information R97.20 - Elevated prostate specific antigen (PSA) [ICD-10-CM] 08/25/2023 10:39 AM EDT [facility] Gross Description A. [id number] Received along with a corresponding pathology report from [facility] are 8 slides labeled outside case: [id number] collected on 08/16/2023. 08/25/2023 10:39 AM EDT [facility] Intradepartmental Consultation with Agreement Kely Ghotra MD 08/25/2023 10:39 AM EDT [facility] Tissue Prostate / Unknown 1:12 PM EDT 2023 1:12 PM EDT us Jamil Maynard MD LAB PATHOLOGY ORDERABLES Savanah lucas Result [facility] [address] [place] [address] documented in this encounter Visit Diagnoses Diagnosis Elevated prostate specific antigen (PSA) documented in this encounter Care Teams Inside Technical Sales Representative Relationship Specialty Start Date End Date Christopher Yadav MD [address] [place] [address] [address] [place] [address] PCP - General 07/11/20 documented as of this encounter
--- OUTSIDE RECORDS SUMMARY | 2024-09-23 10:29 | XMS_ITS | Encounter Summary ---
Author Organization Healthcare Address [address] [place] [address] Care Team Providers Care Hearing Health Technician Name Role Phone Christopher Yadav MD Primary Care Provider [phone] Encounter Details Date Type Department Care Team (Late st Contact Info) Description 07/27/2023 Orders Only External Location [address] [place] [address] Provider, External Social History Tobacco Use Types [...] Name Priority Date/Time Associated Diagnosis Comments CT THORACIC OUTSIDE IMAGES 07/27/2023 11:34 PM EDT documented in this encounter Results * CT THORACIC OUTSIDE IMAGES (07/27/2023 11:34 PM EDT) Anatomical Region Laterality Modality Computed Tomogra phy 07/27/2023 11:3 4 PM EDT us External Provider IMG CT PROCEDURES Final Result documented in this encounter Visit Diagnoses Not on filedocumented in this encounter Care Teams Hearing Health Technician Relationship Specialty Start Date End Date Christopher Yadav MD [address] [place] [facility] [address] [place] [address] PCP - General 07/11/20 documented as of this encounter
--- OUTSIDE RECORDS SUMMARY | 2024-09-23 10:29 | XMS_ITS | Encounter Summary ---
Author Organization Healthcare Address [address] [place] [address] Care Team Providers Care Picking Crew Supervisor Name Role Phone Christopher Yadav MD Primary Care Provider [phone] Encounter Details Date Type Department Care Team (Late st Contact Info) Description 07/27/2023 Orders Only External Location [address] [place] [address] Provider, External Social History Tobacco Use Types [...] Procedure Name Priority Date/Time Associated Diagnosis Comments XR OUTSIDE IMAGES 07/27/2023 10:52 PM EDT documented in this encounter Results * XR OUTSIDE IMAGES (07/27/2023 10:52 PM EDT) Anatomical Region Laterality Modality Radiographic Arlette ging 07/27/2023 10:5 2 PM EDT us External Provider IMG XR PROCEDURES Final Result documented in this encounter Visit Diagnoses Not on filedocumented in this encounter Care Teams Picking Crew Supervisor Relationship Specialty Start Date End Date Christopher Yadav MD [address] [place] [address] PCP - General 07/11/20 documented as of this encounter
--- OUTSIDE RECORDS SUMMARY | 2024-09-23 10:29 | XMS_ITS | Encounter Summary ---
Author Organization [employer] ([place], [place], [place], [place]) Address [address] [place] [address] Care Team Providers Care Technology Risk Intern Name Role Phone Christopher Yadav MD Primary Care Provider [phone] Encounter Details Date Type Department Care Team (Late st Contact Info) Description 03/26/2024 Outside Orders [facility] Admitting [address] [place] [address] Jero Vale MD [address] [place] [address] [address] [place] [id number] Anemia (Primary Dx); Secondary hyperparathyroidism of renal origin (HCC); Chronic kidney disease (CKD) stage G3b/A1, moderately decreased glomerular filtration rate (GFR) between 30-44 mL/min/1.73 square meter and albuminuria creatinine ratio less than 30 mg/g (HCC) Social History Tobacco Use Types Packs/Day [...] Date Ehsan rded Speak language other than Yi at home Not on file 03/11/2023 Want [...] Description 12/17/2024 9:45 AM EDT Office Visit [facility] - [address] [place] [address] Xochitl Serra MD [address] [address] documented as of this encounter Results * (ABNORMAL) CBC with automated diff (03/26/2024 9:26 AM EST) WBC 9.4 4.8 - 10.8 K/ L 03/26/2024 9:55 AM [facility] RBC 3.16(L) 3.80 - 5.20 M/ L 03/26/2024 9:55 AM [facility] Hemoglobin 10.6(L) 12.8 - 17.4 GM/DL 03/26/2024 9:55 AM [facility] Hematocrit 32.8(L) 39.0 - 51.0 % 03/26/2024 9:55 AM [facility] MCV 104(H) 81 - 101 fL 03/26/2024 9:55 AM [facility] MCH 33.5 27.0 - 34.0 pg 03/26/2024 9:55 AM [facility] MCHC 32.3 32.0 - 36.0 GM/DL 03/26/2024 9:55 AM [facility] RDW 14.8(H) 11.5 - 14.5 % 03/26/2024 9:55 AM [facility] Platelets 252 150 - 400 K/CU MM 03/26/2024 9:55 AM [facility] MPV 9.4 9.4 - 12.4 fL 03/26/2024 9:55 AM [facility] Nucleated Red Blood Cell 0.0 0 - 0.2 % 03/26/2024 9:55 AM [facility] % Neutros 73 37 - 80 % 03/26/2024 9:55 AM [facility] % Lymphs 19 10 - 50 % 03/26/2024 9:55 AM [facility] % Monos 7 5 - 13 % 03/26/2024 9:55 AM [facility] % Eos 0 0 - 7 % 03/26/2024 9:55 AM [facility] % Baso 0 0 - 3 % 03/26/2024 9:55 AM EST [facility] NRBC Absolute <0.01 0 - 0.012 K/ul 03/26/2024 9:55 AM EST [facility] # Neutros 6.82 2.00 - 6.90 K/ L 03/26/2024 9:55 AM EST [facility] # Lymphs 1.78 0.60 - 3.40 K/ L 03/26/2024 9:55 AM EST [facility] # Monos 0.66 0.00 - 0.90 K/ L 03/26/2024 9:55 AM EST [facility] # Eos 0.04 0.00 - 0.70 K/ L 03/26/2024 9:55 AM EST [facility] # Baso 0.02 0.00 - 0.20 K/ L 03/26/2024 9:55 AM EST [facility] Immature Granulocytes-Re lative 0.50 % 03/26/2024 9:55 AM EST [facility] # IG 0.05(H) 0.00 - 0.00 K/uL 03/26/2024 9:55 AM [facility] Blood Venipuncture / Unknown 03/26/2024 9:26 AM EST 03/26/2024 9:46 AM EST Narrative [facility] - 03/26/2024 9:55 AM EST When CBC w/ Auto Diff is ordered the lab will add a Manual Differential as a quality check at no additional charge if: Lymphocytes greater than seventy five percent with normal or increased WBC Monocytes greater than Fifteen percent Basophil greater than four percent Bands >10% or several immature myeloids are seen on scan Blast? Flag noted Atypical Lymph flag noted Jero Vale MD LAB BLOOD ORDERABLES Final Resu lt [facility] [address] [place] [address] * Parathyroid Hormone Intact(SENDOUT) (03/26/2024 9:26 AM EST) Pathologist [facility] Parathyroid Hormone, Intact 62 15 - 65 pg/mL 03/27/2024 8:04 PM EST [facility] Comment: Performed By: [facility] [address] [place] [address] Nocturnist Physician: Cameron Javier MD, PhD CLIA Number: [id number] Blood Venipuncture / Unknown 03/26/2024 9:26 AM EST 03/26/2024 9:46 AM EST Jero Vale MD LAB BLOOD ORDERABLES Final Resu lt Performing Organization Address [facility] Co de Phone Number [facility] [address] [phone], [facility] [phone] * Vitamin D, 25-Hydroxy (03/26/2024 9:26 AM EST) [facility] Vitamin D 25-Hydroxy 64.6 30 - 100, >100 Toxic ng/mL 03/26/2024 10:53 AM EST [facility] Blood Venipuncture / Unknown 03/26/2024 9:26 AM EST 03/26/2024 9:47 AM EST Narrative [facility] - 03/26/2024 10:53 AM EST <20 Deficient 20 to 29 Insufficient 30 to 100 Sufficient >100 Toxic Biotin supplements can cause clinically significant incorrect lab results. The FDA has seen an increase in the number of adverse events related to biotin interference with lab tests. Jero Vale MD LAB BLOOD ORDERABLES Final Resu lt [facility] [address] [phone] * Creatinine, random urine (03/26/2024 9:26 AM EST) Pathologist [facility] Creatinine, Ur 44 mg/dL 03/26/2024 10:31 AM EST [facility] Urine URINE SPECIMEN COLLECTION, CLEAN CATCH / Unknown 03/26/2024 9:26 AM EST 03/26/2024 9:45 AM EST Narrative [facility] - 03/26/2024 10:31 AM EST Reference Range: No Normals us Jero Vale MD URINE ORDERABLES Final Result Performing Organization Address City/[facility]/ZIP Co de Phone Number [facility] [address] [place] [address] * Protein, random urine (03/26/2024 9:26 AM EST) Protein, Urine 25 mg/dL 03/26/2024 10:31 AM EST [facility] Comment:No normal reference range established Urine URINE SPECIMEN COLLECTION, CLEAN CATCH / Unknown 03/26/2024 9:26 AM EST 03/26/2024 9:45 AM EST us Jero Vale MD URINE ORDERABLES Final Result Performing Organization Address [facility] Co de Phone Number [facility] [address] [place] [address] * (ABNORMAL) Urinalysis w/Microscopic (03/26/2024 9:26 AM EST) Color, UA Yellow 03/26/2024 10:03 AM EST [facility] Comment:This is a corrected result. Previous result was Straw on 03/26/2024 at 1002 EST Clarity, UA Hazy 03/26/2024 10:03 AM EST [facility] Comment:This is a corrected result. Previous result was Clear on 03/26/2024 at 1002 EST Specific [place], UA 1.015 1.002 - 1.030 03/26/2024 10:03 AM EST [facility] pH, UA 6.0 5.0 - 9.0 03/26/2024 10:03 AM EST [facility] Leukocytes, UA 1+(A) Negative 03/26/2024 10:03 AM EST [facility] Nitrite, UA Negative Negative 03/26/2024 10:03 AM [facility] Protein, UA Negative Negative 03/26/2024 10:03 AM [facility] Glucose, UA Negative Negative 03/26/2024 10:03 AM [facility] Ketones, UA Negative Negative 03/26/2024 10:03 AM [facility] Urobilinogen, UA 0.2 mg/dL Normal 03/26/2024 10:03 AM [facility] Bilirubin, UA Negative Negative 03/26/2024 10:03 AM [facility] Blood, UA 3+(A) Negative 03/26/2024 10:03 AM [facility] RBC, UA Too Numerous To Count(A) None Seen, Rare /HPF 03/26/2024 10:03 AM [facility] WBC, UA 10-20(A) None Seen, Occasional , 0-5 /HPF 03/26/2024 10:03 AM [facility] Bacteria, UA Trace(A) None Seen 03/26/2024 10:03 AM [facility] Mucus Trace Trace 03/26/2024 10:03 AM [facility] SQUAMOUS EPITHELIAL Occasional( A) None Seen, Rare /HPF 03/26/2024 10:03 AM [facility] HYALINE CASTS Occasional( A) None Seen, Rare /LPF 03/26/2024 10:03 AM [facility] Specimen Source Urine, Clean Catch 03/26/2024 10:03 AM [facility] Urine URINE SPECIMEN COLLECTION, CLEAN CATCH / Unknown 03/26/2024 9:26 AM EST 03/26/2024 9:45 AM EST us Jero Vale MD URINE ORDERABLES Edited Result - Final [facility] [address] [place], [place] [address] [phone] * (ABNORMAL) Renal Function Panel (03/26/2024 9:26 AM EST) Sodium 141 136 - 145 meq/L 03/26/2024 3:07 PM [facility] Potassium 4.1 3.5 - 5.1 meq/L 03/26/2024 3:07 PM [facility] Chloride 100 98 - 107 meq/L 03/26/2024 3:07 PM [facility] CO2 34(H) 21 - 32 meq/L 03/26/2024 3:07 PM [facility] Creatinine 1.81(H) 0.70 - 1.20 mg/dL 03/26/2024 3:07 PM [facility] Anion Gap 11 11 - 22 03/26/2024 3:07 PM [facility] BUN 42(H) 7 - 18 mg/dL 03/26/2024 3:07 PM [facility] Glucose 145(H) 70 - 99 mg/dL 03/26/2024 3:07 PM [facility] Calcium 9.3 8.5 - 10.1 mg/dL 03/26/2024 3:07 PM [facility] Phosphorus 4.3 2.6 - 4.9 mg/dL 03/26/2024 3:07 PM [facility] Albumin 3.6 3.4 - 5.0 g/dL 03/26/2024 3:07 PM [facility] Osmolality Calc 294.3 3:07 PM [facility] eGFR (mL/min/1.73m2) 36(L) >=60 mL/min/1.7 3m2 03/26/2024 3:07 PM [facility] Comment:ESTIMATED GFR IS NOT ACCURATE CREATININE CLEARANCE IN PREDICTING GLOMERULAR FILTRATION RATE. ESTIMATED GFR IS NOT APPLICABLE FOR DIALYSIS PATIENTS. Blood Venipuncture / Unknown 03/26/2024 9:26 AM EST 03/26/2024 9:47 AM EST us Jero Vale MD LAB BLOOD ORDERABLES Final Resu lt [facility] [address] [place] [address], [facility] [phone] documented in this encounter Visit Diagnoses Diagnosis Anemia- Primary Unspecified anemia Secondary hyperparathyroidism of renal origin (HCC) Secondary hyperparathyroidism (of renal origin) Chronic kidney disease (CKD) stage G3b/A1, moderately decreased glomerular filtration rate (GFR) between 30-44 mL/min/1.73 square meter and albuminuria creatinine ratio less than 30 mg/g (HCC) documented in this encounter Care Teams Technology Risk Intern Relationship Specialty Start Date End Date Christopher Yadav MD [address] [place] [address] PCP - General General Internal Medicine 03/15/23 documented as of this encounter
--- OUTSIDE RECORDS SUMMARY | 2024-09-23 10:30 | XMS_ITS | Encounter Summary ---
Author Organization [employer] ([place], [place], [place], [place]) Address [address] [place] [address] Care Team Providers Care Emergency Communications Dispatcher Name Role Phone Christopher Yadav MD Primary Care Provider [phone] Encounter Details Date Type Department Care Team (Latest Contact Info) Description 09/13/2024 Travel Social History Tobacco Use Types Packs/Day Years [...] Date Ehsan rded Speak language other than Bahraini at home Not on file 03/11/2023 Want [...] Description 12/17/2024 9:45 AM EDT Office Visit [facility] - [address] [place] [address] Xochitl Serra MD [facility] [address] [address] documented as of this encounter Visit Diagnoses Not on filedocumented in this encounter Care Teams Emergency Communications Dispatcher Relationship Specialty Start Date End Date Christopher Yadav MD [address] [place] [address] PCP - General General Internal Medicine 03/15/23 documented as of this encounter
--- OUTSIDE RECORDS SUMMARY | 2024-09-23 10:30 | XMS_ITS | Clinical Summary ---
Author Organization [address] ([place], [place], [place], [place]) Address [address] [place] [address] Care Team Providers Care Manager Test Name Role Phone Christopher Yadav MD Primary Care Provider [phone] Allergies No known active allergies Medications amLODIPine (NORVASC) 5 MG tablet Take 1 tablet (5 mg total) by mouth daily. 12/21/19 23 Active furosemide (LASIX) 20 MG tablet Take 2 tablets (40 mg total) by mouth daily. 12/21/19 23 Active insulin 70/30, insulin NPH-insulin regular, (HumuLIN 70/30) 100 unit/mL (70-30) injection Inject 58 Units subcutaneously Dosing according to Blood Glucose level 48 units AM 22-28 units PM. 03/08/19 24 Active gabapentin (NEURONTIN) 300 MG capsule 1 capsule in the morning and 2 capsules at night Active famotidine (PEPCID) 20 MG tablet Take 1 tablet (20 mg total) by mouth daily. 03/03/19 24 Active allopurinoL (ZYLOPRIM) 100 MG tablet Take 1 tablet (100 mg total) by mouth daily. 01/17/20 23 Active simvastatin (ZOCOR) 40 MG tablet Take 1 tablet (40 mg total) by mouth nightly. 01/18/20 23 Active calcitrioL (ROCALTROL) 0.25 MCG capsule Take 1 capsule (0.25 mcg total) by mouth 3 (three) times a week MON/WED/FRI. 07/29/19 24 Active hydrALAZINE (APRESOLINE) 10 MG tablet Take 1 tablet (10 mg total) by mouth 2 (two) times daily. 07/27/19 24 Active tamsulosin (FLOMAX) 0.4 mg Cap 24 hr capsule SMARTSI Capsule(s) By Mouth Every Evening 08/18/19 24 Active clopidogreL (PLAVIX) 75 mg tablet Take 1 tablet (75 mg total) by mouth daily. Active aspirin 81 MG EC tablet Take 1 tablet (81 mg total) by mouth daily. Active coenzyme Q10 100 mg capsule Take 1 capsule (100 mg total) by mouth daily. Active sulfamethoxazol e-trimethoprim (Bactrim DS) 800-160 mg per tabletIndicatio ns:Urinary tract infection without hematuria, site unspecified Take 1 tablet by mouth 2 (two) times daily. 6 tablet 03/12/19 25 Active abiraterone (Zytiga) 250 mg tab Take 4 tablets (1,000 mg total) by mouth daily for 360 days. 120 tablet 11 09/14/19 24 025 predniSONE (DELTASONE) 5 MG tablet Take 1 tablet (5 mg total) by mouth daily for 360 days Look-alike/Sound -alike medication. 30 tablet 09/14/19 24 025 Active Problems Problem Noted Date Diagnosed Date Renal dysfunction 03/20/2024 Prostate cancer 09/14/2023 Cancer Staging:Pathologic stage from 08/23/2023:No Stage Recommended(pT2, cN1, cM1b, PSA: 32, Grade Group: 5) - Signed by Xochitl Serra MD on 12/20/2023 Arthritis 08/16/2023 Fluid retention in legs 08/16/2023 GERD (gastroesophageal reflux disease) Left hip pain 08/16/2023 Neuropathy 08/16/2023 Urinary retention 08/16/2023 Vitamin D deficiency 08/16/2023 Elevated PSA 08/04/2023 Obesity 03/21/2023 Arthritis of left hip 03/21/2023 Preop examination 03/16/2023 CAD (coronary artery disease) 03/16/2023 Gout 03/16/2023 Hypertension 03/16/2023 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 Hyperlipidemia 03/16/2023 BPH (benign prostatic hyperplasia) 03/16/2023 CKD (chronic kidney disease), stage III 03/16/19 24 Encounters Date Type Department Care Team Description 09/17/2024 9:00 AM EDT Office Visit [facility] [place] [address] [place] [address] Xochitl Serra MD Prostate cancer (HCC) (Primary Dx); Renal dysfunction 09/17/2024 Travel 09/13/2024 4:45 PM EDT Lab Patient [facility] [address] [place] [address] Xochitl Serra MD Prostate cancer (HCC) 09/13/2024 Travel from Last 3 Months Family History Relation Name Status Comments Brother Alive Father Mother Sister Alive Social History Tobacco Use Types Packs/Day Years Used Date Smoking Tobacco: Former Cigarettes Q uit: 1980 Smokeless Tobacco: Never Tobacco Cessation:Counseling Given: Not Answered Alcohol Use Standard Drinks/Week Comments Not Currently [...] Date Ehsan rded Speak language other than Barbadian at home Not on file 03/11/2023 Want [...] on file Sexual Orientation Not on file Last Filed Vital Signs Vital Sign Reading Time Taken Comments Blood Pressure 153/69 06/18/2024 10:18 AM EDT Pulse 72 06/18/2024 10:18 AM EDT Temperature 36.2 C (97.2 F) 06/18/2024 9:16 AM EDT Respiratory Rate 18 06/18/2024 10:18 AM EDT Oxygen Saturation 93% 06/18/2024 10:18 AM EDT Inhaled Oxygen Concentration - - Weight 123.8 kg (273 lb) 06/18/2024 9:16 AM EDT Height 182.9 cm (6') 06/18/2024 9:16 AM EDT Body Mass Index 37.03 06/18/2024 9:16 AM EDT Plan of Treatment Upcoming Encounters Date Type Department Care Team (Late st Contact Info) Description 12/17/2024 9:45 AM EDT Office Visit [facility] - [address] [place] [address] Xochitl Serra MD [address] [address] Health Maintenance Due Date Last Done Comments Diabetic Eye Exam 1950 Depression Screening (12+) 1950 Shingles Vaccine (Zoster) (1 of 2) 1988 Medicare Initial AWV G0438 07/30/2004 Respiratory Syncytial Virus (RSV) Adult or (1 - 1-dose 75+ series) 2013 DTAP/TDAP/TD VACCINES (3 - T d or Tdap) 02/28/2022 02/29/2012, 01/16/1998 Hemoglobin A1C 09/13/2023 03/15/2023 COVID-19 VACCINE (2023-2 5 season) 2023 02/03/2023, 12/22/2021, 06/25/2021, Additional history exists Falls Risk Screening 02/29/2024 Influenza Vaccine (#1) 2024 02/03/2023 Tobacco Cessation Counseling and Screening (12+) 03/26/2025 03/26/2024 Pneumococcal 50+ years Completed 7, 12/03/2015, 03/14/2013 Medical Devices Implanted Type Area Direct Chill Caster Device Identifier Shelf Expiration Date Model / Serial / Lot Stents-Machado ry Stents-Coron maribel Heart Head Fem Delta 36mm +0mm 170-36-00 - [id number] Implanted:Qty : 1 on 03/21/2023 by Eric Parkinson MD at [facility] T[employer] Left: Hip EX[employer]CH [id number] 05/31/2027 170-36-00 / [id number] / Stem Fem Pf Sz9 113mm - [id number] Implanted:Qty : 1 on 03/21/2023 by Eric Parkinson MD at [facility] [employer] Left: Hip [employer] [id number] 10/03/2027 / [id number] / Liner Ntrl Altn Xle Grp6 36mm 6 - [id number] Implanted:Qty : 1 on 03/21/2023 by Eric Parkinson MD at [facility] [employer] Left: Hip [employer] [id number] 03/17/2027 / [id number] / Cup Clstr-Hole Altn Pcg6 54mm 04-435-92 4 - [id number] Implanted:Qty : 1 on 03/21/2023 by Eric Parkinson MD at [facility] [employer] Left: Hip [employer] [id number] 10/25/203254 / [id number] / Procedures Procedure Name Priority Date/Time Associated Diagnosis Comments TESTOSTERONE FREE AND TOTAL,INCLUDES SEX HORMONE-BINDING GLOBULIN ADULT MALE (SENDOUT) Routine 09/13/2024 1:26 PM EDT Prostate cancer (HCC) PSA Routine 09/13/2024 1:26 PM EDT Prostate cancer (HCC) COMPREHENSIVE METABOLIC PANEL Routine 09/13/2024 1:26 PM EDT Prostate cancer (HCC) CBC W/ AUTO DIFF Routine 09/13/2024 1:26 PM EDT Prostate cancer (HCC) HEMOGLOBIN A1C Routine 03/15/2023 11:20 AM EST Preop examination from Last 3 Months or Most Recently Relevant to Health Maintenance Results * (ABNORMAL) CBC with Diff (09/13/2024 1:26 [...] Res ult [facility] [address] [phone] * (ABNORMAL) Testosterone Free And Total, Adult Male(SENDOUT) (09/13/2024 1:26 PM EDT) [facility] Testosterone by Immunoassay <3(L) 300 - 720 ng/dL 09/17/2024 12:18 AM EDT [facility] Comment: INTERPRETIVE INFORMATION: Testosterone by Immunoassay Testosterone immunoassays are both imprecise and inaccurate at low testosterone concentrations, such as those found in children and cisgender females. For these individuals, testing by mass spectrometry is recommended; refer to Testosterone (Adult Females, Children, or Individuals on Testosterone-Suppressing Hormone Therapy) ([employer] test code [id number]). Free or bioavailable testosterone measurements may provide supportive information. For individuals on testosterone hormone therapy, refer to cisgender male reference intervals. No reference intervals have been established for males younger than 14 years or for cisgender females. For a complete set of all established reference intervals, refer to [employer]/Tests/Pub/9056090. Sex Hormone Binding Globulin 64 19 - 76 nmol/L 09/17/2024 12:18 AM EDT [facility] Comment: REFERENCE INTERVAL: Sex Hormone Binding Globulin Access complete set of age- and/or gender-specific reference intervals for this test in the [employer] [facility] Test Directory ([email or web address]). Testosterone, Free Calculation <1(L) 47 - 244 pg/mL 09/17/2024 12:18 AM EDT [facility] Comment: INTERPRETIVE INFORMATION: Testosterone, Free Calculation Free [...] Children, or Individuals on Testosterone-Suppressing Hormone Therapy) ([employer] test code [id number]). For individuals on testosterone hormone therapy, refer to cisgender male reference intervals. No reference intervals have been established for males younger than 14 years or for cisgender females. For a complete set of all established reference intervals, refer to [employer]/Tests/Pub/8636902. Testosterone, Percentage Free <1.1(L) 1.6 - 2.9 % 09/17/2024 12:18 AM EDT [facility] Comment: Performed By: [facility] [address] [place] [address] Felt Hat Inspector And Packer: Cameron Javier MD, PhD CLIA Number: [id number] Blood Venipuncture / Unknown 09/13/2024 1:26 PM EDT 09/13/2024 1:26 PM EDT Xochitl Serra MD LAB BLOOD ORDERABLES Final Res ult Performing Organization Address City/[facility]/ZIP Co de Phone Number [facility] [address] [phone] [phone] * (ABNORMAL) PSA ([facility], LUCIA, [facility]) (09/13/2024 1:26 PM EDT) Pathologist [facility] PSA diagnostic (ng/mL) <0.13(L) 0.13 - 4 ng/mL 09/13/2024 8:40 PM EDT [facility] Blood Venipuncture / Unknown 09/13/2024 1:26 PM EDT 09/13/2024 1:26 PM EDT Xochitl Serra MD LAB BLOOD ORDERABLES Final Res ult Performing Organization Address City/[facility]/ZIP Co de Phone Number [facility] [address] [place] [address] * (ABNORMAL) CMP (09/13/2024 1:26 PM EDT) Pathologist [facility] Sodium 140 136 - 145 meq/L 09/13/2024 [...] ORDERABLES Final Res ult Performing Organization Address City/[facility] Co de Phone Number [facility] [address] [place], [place] [address] [phone] * (ABNORMAL) Hemoglobin A1c (03/15/2023 11:20 AM EST) Hemoglobin A1C 6.5(H) 4.2 - 6.3 % 03/15/2023 12:24 PM EST [facility] Comment: Hemoglobin A1C levels are related to mean glucose during the preceding 2-3 months. Less than 7% demonstrates glycemic control in diabetic patients. Hemoglobin AlC % Suggested Diagnosis > or = 6.5 Diabetic 5.7 - 6.4 Prediabetic <5.7 Non-diabetic eAVG Glucose 139.85 mg/dL 03/15/2023 12:24 PM EST [facility] Blood Venipuncture / Unknown 03/15/2023 11:20 AM EST 03/15/2023 11:35 AM EST Eric Parkinson MD LAB BLOOD ORDERABLES Fi nal Result Performing Organization Address City/[facility] Co de Phone Number [facility] [address] [phone] from Last 3 Months or Most Recently Relevant to Health Maintenance Insurance MEDICARE PART A B [facility] SUPP Advance Directives For more information, please contact: [phone] * Full Code (Latest Code Status on File) Date Activated Date Inactivated Comments 08/16/2023 10:48 AM 08/16/2023 7:35 PM * Full Code Date Activated Date Inactivated Comments 03/21/2023 11:25 AM 03/24/2023 3:00 PM * Full Code Date Activated Date Inactivated Comments 03/21/2023 5:18 AM 03/21/2023 11:25 AM Care Teams Manager Test Relationship Specialty Start Date End Date Christopher Yadav MD [address] [place] [address] PCP - General General Internal Medicine 03/15/23
--- OUTSIDE RECORDS SUMMARY | 2024-09-23 10:30 | XMS_ITS ---
Author Organization [facility] [place], [place] Address [address] [place] [address] Care Team Providers Care Rn Corrections Name Role Phone Christopher Yadav MD Primary Care Provider [phone] Active Problems Problem Noted Date Diagnosed Date [...] CKD (chronic kidney disease), stage III 03/16/19 Current Oncology Plans No current plan information found. Past Plans ONCOLOGY TREATMENT Plan Name Start Date Discontinue Date Treatment Medications Discontinue Reason Plan Provider Cycles SJ Prostate - leuprolide 22.5 mg (Eligard) every 84 days 4 09/17/2024 leuprolide (3 month) (ELIGARD)sodiu m chloride 0.9 % (NS) Patient Preference Xochitl Serra MD 4 of 16 cycles started Radiation Treatments * No radiation treatments are documented for this patient in [facility]. Treatments may have been administered in another system.
--- OUTSIDE RECORDS SUMMARY | 2024-09-23 10:30 | XMS_ITS | Data Portability ---
Author Organization [facility] Address [address] [place] [address] Assessment Encounter Date Assessment Date Assessment LastModified by Organization Details LastModified Time 04/28/2012 04/28/2012 He has developed a pressure blister on the right great toe since yesterday. it is presently not markedly infected but it would be safest to begin the antibiotic Keflex. He can keep a clean sock on the affected foot for now and wash daily with soap and water and make sure to dry well. I expect the blister will rupture on its own. We will also prescribe a topic antibiotic ointment to apply to the area after the blister ruptures. His BP is quite elevated today and he has not taken any of his medications today. We recommend he stop the decongestants from over the counter. We will give him a sample of a nose spray to use for sinus if needed. We need him to check the BP again when he is taking his BP meds. We may need to adjust his BP meds a little. Not available 04/28/2012 11:58:45 09/29/2012 09/29/2012 See the discussion below. [email or web address] Not available 09/29/2012 10:44:48 01/04/2013 01/04/2013 Mr Palmer has acute shingles and will treat with antiviral and an anti inflammatory injection in the office today. He did have a good cardiac check up recently. We note it has been 10 years since his pneumonia vaccine so we recommend he get that when he feels better. He can get the vaccine at a local [facility] pharmacy as it is available there and covered by Medicare. Not available 01/04/2013 13:57:23 Plan of Treatment Reminders Order Date Submit Date Provider Last Modified By Organization Details Last Modified Time Details Appointments None recorded. Lab None recorded. Referral cardiolog ist referral 2012 013 radha Jackson MD, [address], [address], [address], 3 11:35:20 Procedures None recorded. Surgeries None recorded. Imaging rhythm strip electroca rdiogram 2012 013 [facility], [address] [place], [address], 3 10:44:49 Medication Orders Rocephin 1 gram solution for injection 2012 013 Not available 3 12:01:45 dexametha sone sodium phosphate 4 mg/mL injection solution 2012 013 Not available 3 12:01:46 doxycycli ne hyclate 100 mg tablet 2012 013 [facility] [place], [address], 3 12:02:17 Valtrex 1 gram tablet 2012 013 [facility]FACE [facility] [place], [address], 3 14:02:35 dexametha sone sodium phosphate 4 mg/mL injection solution 2012 013 Not available 3 13:57:22 cephalexi n 500 mg capsule 2012 013 [facility] [place], [address], 3 09:59:23 Bactroban 2 % topical ointment 2012 013 [facility] [place], [address], 3 09:59:23 Patient TargetsNo targets recorded. Patient Instructions Encounter Date Encounter Id Patient Instructions Last Modified By Organization Details Last Modified Time 09/29/2012 [id number] Mr Palmer has significant fatigue issues and has not had a cardiac evaluation since his stent about a year ago. This warrants an EKG and a cardiology evaluation. We will refer him to [facility] cariology [facility], Dr Jackson. Also he is having some Stomach discomfort and the metformin can increase his symptoms, so we will have him reduce it to just one pill in the PM. We do recommend he discontinue Losartan as it is no longer recommended to combine it with the Lisinopril. Todays' EKG is witout any acute abnormalitiy. He is encouraged to continue to do activities as tolerated and rest when tired. Not available 09/29/2012 10:44:48 01/04/2013 [id number] shingles: care instructions Not available 01/04/2013 14:00:58 Mr Palmer has acute shingles and will treat with antiviral and an anti inflammatory injection in the office today. He did have a good cardiac check up recently. We note it has been 10 years since his pneumonia vaccine so we recommend he get that when he feels better. He can get the vaccine at a local [facility] pharmacy as it is available there and covered by Medicare. Not available 01/04/2013 13:57:23 Reason for Referral Referring Physician: Naty Amaya, Family Medicine, Encounter Date: 09/29/2012 Results Created Date Observation Date Name Description Value Unit Range Abnormal Flag Note LastModifiedBy Organization Detail LastModifiedTime 09/30/19 13 10/01/2012 venkatesh woods am see copy ekg Not Available [facility], [place], [address], 09/29/2012 10:44:49 09/26/19 13 09/26/2012 uric acid, serum uric acid 5.8 mg/dL 4.0-8. 0 normal thera peuti c targe t for gout patie nts: <6.0 mg/dL Not Available [facility] [address], [place], [address], 09/26/2012 06:14:11 05/18/19 14 05/11/2013 imagi ng/di agnos tic resul t No observ ation record ed. Not Available 2013 22:13:08 06/23/19 14 06/08/2013 imagi ng/di agnos tic resul t No observ ation record ed. Not Available 2013 16:56:36 Result Notes None recorded. Problems Name Problem SNOMED Code Status Onset Date Resolution Date Notes Provider Name and Address Organization Details Recorded Time Knee pain Active [facility] 3 10:15:28 Herpes zoster 7125618 Active Naty Amaya MD [address], [address] , [place] [facility] 3 13:59:10 Bronchitis 89041624 Active Naty Amaya MD [address], [address] , [facility] 3 12:01:45 Cellulitis and abscess of toe 872103059 Active Not Available [facility] 3 03:01:06 Onychomycosis due to dermatophyte 733533524 Active Not Available [facility] 3 03:01:06 Gastroesophag eal reflux disease 077050395 Active Not Available [facility] 3 03:01:06 Uric acid urolithiasis 102933852 Active Not Available [facility] 3 03:01:06 Type 2 diabetes mellitus without complication 501420902 Active Not Available [facility] 3 03:01:06 Superficial injury of foot and toe(s) 762262864 Active Not Available [facility] 3 03:01:06 Benign essential hypertension 5632498 Active Not Available [facility] 3 03:01:06 Hyperlipidemi a 77387551 Active Not Available [facility] 3 03:01:06 Coronary atheroscleros is 800491687 Active Not Available [facility] 3 03:01:06 Disorder of nervous system due to type 2 diabetes mellitus 644198554 Active Not Available [facility] 3 03:01:06 Malaise and fatigue 226888017 Active Not Available [facility] 3 03:01:06 Heart disease 79224521 Active Not Available [facility] 3 03:01:06 Problem Notes None recorded. Procedures Surgical History Date Name Laterality Status Provider Name and Address Organization Details Recorded Time 9 Colonoscopy completed Naty Amaya MD 2017 [facility], [address], [place], [address], [facility] 01/04/2013 13:59:10 Other completed [facility] 02/02/2011 09:18:39 Imaging Results None recorded. Procedure Notes None recorded. Medical Equipment None Reported. Allergies No known drug allergies Medications Name Sig Start Date Stop Date Status Note LastModified by Organization Details LastModified Time Pneumovax-2 3 25 mcg/0.5 mL injection solution inject 0.5 millilite r intramusc ularly active Not Available Not Available No t Available lisinopril 20 mg-hydrochl orothiazide 12.5 mg tablet Take 2 tablets every day by oral route in the morning. active Not Available Not Available No t Available azithromyci n 250 mg tablet active Not Available Not Available Not Available glyburide 5 mg tablet TWO TABLETS Q AM AND EVENING active Not Available Not Available No t Available metoprolol tartrate 100 mg tablet Take 1 tablet twice a day by oral route for 90 days. active Not Available Not Available No t Available hydrocodone 5 mg-acetamin ophen 325 mg tablet active Not Available Not Available No t Available lisinopril 20 mg tablet active Not Available Not Available Not Available simvastatin 10 mg tablet Take 1 tablet every day by oral route in the evening. active Not Available Not Available No t Available Rocephin 1 gram solution for injection 2012 active Not Available Not Available Not Avai lable clopidogrel 75 mg tablet Take 1 tablet every day by oral route. active Not Available Not Available No t Available amlodipine 5 mg tablet Take 1 tablet every day by oral route. active Not Available Not Available No t Available allopurinol 100 mg tablet Take 2 tablets every day by oral route. active Not Available Not Available No t Available tramadol 50 mg tablet active Not Available Not Available No t Available baclofen 10 mg tablet active Not Available Not Available No t Available cephalexin 500 mg capsule Take 2 capsules every 12 hours by oral route for 10 days. 05/08 completed Not Available Not Available Not Available metformin 1,000 mg tablet Take 1 tablet twice a day by oral route. active Not Available Not Available No t Available buspirone 10 mg tablet active Not Available Not Available Not Available metoprolol tartrate 50 mg tablet TAKE TWO TABLETS Q AM AND ONE TABLET Q PM active Not Available Not Available No t Available Valtrex 1 gram tablet Take 1 tablet every 12 hours by oral route for 10 days. 01/14 completed Not Available Not Available Not Available omeprazole 20 mg capsule,del ayed release Take 1 capsule every day by oral route. active Not Available Not Available No t Available lisinopril 20 mg-hydrochl orothiazide 25 mg tablet active Not Available Not Available Not Available mupirocin 2 % topical ointment Apply a small amount to the affected area by topical route 3 times per day active Not Available Not Available No t Available dexamethaso ne sodium phosphate 4 mg/mL injection solution 2012 active Not Available Not Available Not Avai lable losartan 100 mg tablet active stop this one Not Available Not Available Not Available doxycycline hyclate 100 mg tablet Take 1 tablet twice a day by oral route for 10 days. 03/08 completed Not Available Not Available Not Available naproxen 500 mg tablet Take 1 tablet twice a day by oral route. active Not Available Not Available No t Available azithromyci n 500 mg tablet active Not Available Not Available Not Available Adacel (Tdap Adolesn/Temo lt)(PF)2Lf- (2.5-5-3-5m cg)-5 Lf/0.5 mL IM susp inject 0.5 millilite r intramusc ularly active Not Available Not Available No t Available Levemir FlexPen 100 unit/mL (3 mL) solution subcutaneou s insulin pen active Not Available Not Available Not Available MoviPrep 100 gram-7.5 gram-2.691 gram oral powder packet active Not Available Not Available Not Available Januvia 100 mg tablet active Not Available Not Available No t Available Janumet 50 mg-1,000 mg tablet active Not Available Not Available Not Available ReliOn [place] 31 gauge x 1/4 active Not Available Not Available Not Available Victoza 0.6 mg/0.1 mL (18 mg/3 mL) subcutaneou s pen injector active Not Available Not Available Not Available Humulin 70/30 U-100 Insulin KwikPen 100 unit/mL subcutaneou s active Not Available Not Available Not Available Vitals Date Recorded Body height Body weight Body mass index (BMI) Heart rate Oxygen saturation Oxygen saturation in Arterial blood by Pulse oximetry Body temperature Systolic And Diastolic Provider Name and Address Organization Details Last Updated DateTime 3 184.15 cm 772229. 357084 g 33.2 kg/m2 66 /min 97 % 97 % 97 [degF] 180/82 mm[Hg] [facility] 3 11:32:30 Date Recorded Body height Body weight Body mass index (BMI) Heart rate Oxygen saturation Oxygen saturation in Arterial blood by Pulse oximetry Body temperature Systolic And Diastolic Provider Name and Address Organization Details Last Updated DateTime 3 184.15 cm 685485. 281953 g 34.8 kg/m2 59 /min 98 % 98 % 97 [degF] 140/71 mm[Hg] [facility] 3 09:07:15 Date Recorded Oxygen saturation Oxygen saturation in Arterial blood by Pulse oximetry Body weight Body temperature Heart rate Body mass index (BMI) Body height Systolic And Diastolic Provider Name and Address Organization Details Last Updated DateTime 4 96 % 96 % 092576. 314071 g 97.4 [degF] 72 /min 34.9 kg/m2 185.42 cm 160/79 mm[Hg] Thalia [facility] 4 11:29:55 Date Recorded Body height Body weight Body mass index (BMI) Heart rate Oxygen saturation Oxygen saturation in Arterial blood by Pulse oximetry Body temperature Systolic And Diastolic Provider Name and Address Organization Details Last Updated DateTime 3 184.15 cm 445119. 064544 g 35.3 kg/m2 84 /min 96 % 96 % 98 [degF] 136/72 mm[Hg] [facility] 3 12:41:48 Date Recorded Body height Body weight Body mass index (BMI) Heart rate Oxygen saturation Oxygen saturation in Arterial blood by Pulse oximetry Body temperature Systolic And Diastolic Provider Name and Address Organization Details Last Updated DateTime 2 184.15 cm 127696. 197788 g 33.9 kg/m2 64 /min 96 % 96 % 97.1 [degF] 133/68 mm[Hg] [facility] 2 11:37:02 Date Recorded Body height Body weight Body mass index (BMI) Heart rate Oxygen saturation Oxygen saturation in Arterial blood by Pulse oximetry Body temperature Systolic And Diastolic Provider Name and Address Organization Details Last Updated DateTime 3 184.15 cm 065541. 378752 g 35.6 kg/m2 96 /min 96 % 96 % 98.2 [degF] 127/68 mm[Hg] [facility] 3 10:51:36 Social History Question Answer Notes LastModified by Organizat ion Details LastModified Time Tobacco Smoking Status Former Smoker Not Available [facility] 12/25/2019 03:11:18 Do You Have An Advance Directive? No [id number] Information not available 12/25/2019 Animal Exposure? No Informat ion not available 09/29/2012 Auto Related Injury? No Information not available 09/29/2012 Is Blood Transfusion Acceptable In An Emergency? Yes [id number] Information not available 12/25/2019 What Is Your Level Of Caffeine Consumption? Occasional [id number] Information not available 12/25/2019 How Much Tobacco Do You Chew? None [id number] Information not available 12/25/2019 Diabetes Yes Information no t available 09/29/2012 What Type Of Diet Are You Following? REGULAR [id number] Information not available 12/25/2019 Education 12 Information no t available 09/29/2012 Family History Of Heart Disease? Yes Information not available 09/29/2012 Which Of Your Hands Is Dominant? Right [id number] Information not available 12/25/2019 High Blood Pressure Yes Information not available 09/29/2012 High Cholesterol No Informat ion not available 09/29/2012 Live Alone Or With Others? With Others Information not available 09/29/2012 Marital Status Informatio n not available 09/29/2012 How Many Children Do You Have? 3 [id number] Information not available 12/25/2019 Do You Use Your Seat Belt Or Car Seat Routinely? Yes [id number] Information not available 12/25/2019 Seat Belts Used Routinely Yes Information not available 09/29/2012 Smoke Alarm In Home Yes Information not available 09/29/2012 General Stress Level Medium Information not available 09/29/2012 Do You Use Sunscreen Routinely? No [id number] Information not available 12/25/2019 Work Related Injury? No Information not available 09/29/2012 Sex: Unknown Functional Status Question Answer Note LastModified by Organizat ion Details LastModified Time What is your level of alcohol consumption? None [id number] Information not available 12/25/2019 Are you currently employed? No [id number] Information not available 12/25/2019 Are you able to care for yourself independently? Yes [id number] Information not available 12/25/2019 What is your occupation? RETIRED Information not available 09/29/2012 What is your exercise level? Occasional [id number] Information not available 12/25/2019 Mental Status None recorded. Family History Relationship Description Onset Age of this Age Resolved Age Notes LastModified by Organization Details LastModified Time Mother Diabetes mellitus 92 previo usly record ed as Diabet es [email or web address] [id number] Not available 11/26/2012 03:00:56 Mother Heart disease previo usly record ed as Heart Proble m [email or web address] [id number] Not available 11/26/2012 03:00:56 Father Problem 55 CEREBR AL HEMMOR BELLA (previ ously record ed as Other) [id number] Not available 11/26/2012 03:00:56 Medical History Condition Response Coronary Artery Disease N Gout N Blood Diseases N Kidney Stones N Hyperthyroidism N Hypothyroidism N Depression N COPD N Developmental or Behavioral Disorders N Eczema, Hives or other skin conditions N Anxiety Disorder N Muscle, Joint, or Bone Problems N Vision or Eye Problems N Arthritis N Serious Illness or Injuries N Congenital Anomalies N Cancer N Stroke N Bladder or Kidney Problems N Hospital Admission other than N High Cholesterol N Liver Disease N Fibromyalgia N Kidney Disease N Heart Problems N Ear or Hearing Problems N ADD or ADHD N Thyroid Problems N Skin Problems N Anemia N Constipation N Diabetes Y Bedwetting N Seizures/Epilepsy N Tuberculosis N Diverticulitis N Asthma N Allergies N GERD/Reflux N Heart Disease N Pulmonary Embolism N Hypertension Y Osteoporosis N Chicken Pox N Immunizations Vaccine Type Date Status Note Provider Nam e and Address Organization Details Recorded Time Influenza, split virus, trivalent, preservative 1 completed Not Available [facility] 03/17/2019 02:12:10 Pneumococcal conjugate PCV 13 4 completed [facility] 11/05/2013 16:27:01 Influenza, split virus, trivalent, preservative 2 completed Not Available [facility] 03/17/2019 02:12:10 pneumococcal, unspecified formulation 3 completed Naty Amaya MD [address], [address], [facility] 01/04/2013 13:57:23 Influenza, split virus, trivalent, preservative 3 completed Naty Amaya MD [address], [address], [facility] 01/04/2013 13:57:23 DTaP 3 completed Naty Amaya MD [address], [address], [facility] 01/04/2013 14:00:17 Past Encounters Encounter ID Performer Location Encounter Start Date Encounter Closed Date Diagnosis/Indication Diagnosis SNOMED-CT Code Diagnosis ICD10 Code Diagnosis Note [id number] Lloyd Padron MD [address] [id number] 02/02/2011 08:42:27 02/02/2011 16:45:56 [id number] Naty Amaya MD [address] [id number] 03/19/2011 13:56:10 03/19/2011 15:05:38 [id number] Lloyd Padron MD [address] [id number] 05/21/2011 08:50:03 05/21/2011 10:45:03 [id number] Lloyd Padron MD [address] [id number] 09/13/2011 08:17:06 09/13/2011 09:52:28 [id number] Lloyd Padron MD [address] [id number] 10/11/2011 15:13:44 10/11/2011 16:27:38 [id number] Lloyd Padron MD [address] [id number] 01/13/2012 11:27:25 01/13/2012 16:04:55 [id number] Naty Amaya MD [address] [id number] 04/28/2012 11:30:13 04/28/2012 17:45:29 [id number] Naty Amaya MD [address] [id number] 09/29/2012 09:02:36 09/29/2012 12:00:04 [id number] Naty Amaya MD [address] [id number] 01/04/2013 12:40:14 01/04/2013 14:31:25 Herpes zoster [id number] Naty Amaya MD [address] [id number] 02/26/2013 10:45:07 02/27/2013 08:15:53 Bronchitis 16370492 Health Concerns Section Related Observation LastModified by Organization Detai ls LastModified Time None Recorded Concern Status LastModified by Organization Details LastModified Time None Recorded Advance Directives Directive N: Payers Insurance Date Sequence Insurance Name Policy Number Policy Rocha Covered Member ID Rocha Member ID Guarantor Name 11/05/2013 2 [place]MEDICARE SUPPLEMENT) [id number] Braeden Palmer [id number] Braeden Palmer 11/05/2013 1 [place] Braeden Palmer [id number] Braeden Palmer Notes Date Note Type Note Provider Name and Address Organization Details Recorded Time 02/23/2012 text/plain PalmerBraeden January 13, 2012 CHIEF COMPLAINT: Cough, cold, and respiratory infection present for about 72 hours. REVIEW OF SYSTEMS AND PAST HEALTH: This gentleman is a diabetic who has been reasonably well controlled. Also, he is compliant on his medication for lipids, gout, and blood pressure, and blood pressure is controlled. PERSONAL HISTORY: His is in hospital with bilateral pneumonia thought to be viral. Morning blood sugar was 154. General appearance, a large man who is somewhat anxious, coughing frequently. Cranium is intact. Eyes, PERRLA. Oropharynx, reddened posterior pharynx. Neck, no JVD. No adenopathy. TMs are clear. Hearing is diminished. The lungs, inspiratory and expiratory wheezes. Deep breathing punctuated by cough. Sputum production is minimal at this time. Heart sounds are of good quality. The abdomen, L, S, and K are not palpably enlarged. Extremities, no edema. The skin is clear. ASSESSMENT: Acute bronchitis. Exposure to pneumonia. PLAN: 1. Levaquin 500 mg one daily. 2. Expectorant cough syrup. 3. Rocephin 500 mg IM. Call us if he is not improved in 24 to 48 hours. Lloyd Padron M.D. JLF/pts Not Available [facility] 09/22/2012 04:35:51 01/13/2012 text/html ROS as noted in the HPI [facility] 02/14/2012 16:09:23 09/29/2012 text/html ROS as noted in the HPI tired no chest pains. just exhausted all the time. Naty Amaya MD [address] [place] [address], [phone], [facility] 09/29/2012 10:45:21 01/04/2013 text/html ROS as noted in the HPI Naty Amaya MD [address] [place] [address], [phone], [facility] 01/04/2013 14:00:20 02/26/2013 text/html ROS as noted in the HPI Naty Amaya MD [address], [address], [facility] 02/26/2013 19:16:51
--- OUTSIDE RECORDS SUMMARY | 2024-09-23 10:30 | XMS_ITS | Referral Summary ---
Author Organization [employer] ([place], [place], [place], [place]) Address [address] [place] [address] Care Team Providers Care It Infrastructure Specialist Name Role Phone Christopher Yadav MD Primary Care Provider [phone] Encounters Date Type Department Care Team Description 09/17/2024 Travel 09/17/2024 9:00 AM EDT Office Visit [facility] [place] [address] [facility] [address] [place] [address] Xochitl Serra MD Prostate cancer (HCC) (Primary Dx); Renal dysfunction 09/13/2024 Travel 09/13/2024 4:45 PM EDT Lab Patient Walk-In [facility] [address] [place] [address] Xochitl Serra MD Prostate cancer (HCC) from Last 3 Months Allergies No known active allergies Medications amLODIPine [...] by mouth 3 (three) times a week MON/TUE/FRI. 07/29/19 24 Active hydrALAZINE (APRESOLINE) 10 MG [...] mouth daily for 360 days. 120 tablet 09/14/19 24 025 predniSONE (DELTASONE) 5 MG tablet Take 1 tablet (5 mg total) by mouth daily for 360 days Look-alike/Sound -alike medication. 30 tablet 09/14/19 24 025 Active Problems Problem Noted Date Diagnosed Date Renal dysfunction 03/20/2024 Prostate cancer 09/14/2023 Cancer Staging:Pathologic stage from 08/23/2023:No Stage Recommended(pT2, cN1, cM1b, PSA: 32, Grade Group: 5) - Signed by Xochitl Srera MD on 12/20/2023 Arthritis 08/16/2023 Fluid retention [...] CKD (chronic kidney disease), stage III 03/16/19 Social History Tobacco Use Types Packs/Day Years [...] Date Ehsan rded Speak language other than [place] at home Not on file 03/11/2023 Want [...] Mass Index 37.03 06/18/2024 9:16 AM EDT Functional Status * Are you deaf or [...] No 03/24/2023 8:05 AM Juliana Poe RN Mental Status * Because of a physical, mental, or emotional condition, do you have serious difficulty concentrating, remembering, or making decisions? (5 years old or older) Answer Entry Date Author No 03/24/2023 8:05 AM Juliana Poe RN Plan of Treatment Upcoming Encounters Date Type Department Care Team (Late st Contact Info) Description 12/17/2024 9:45 AM EDT Office Visit [facility] - [address] [place] [address] Xochitl Serra MD [address] [address] Medical Devices Implanted Type Area Demurrage Worker Device Identifier Shelf Expiration Date Model / Serial / Lot Stents-Machado ry Stents-Coron maribel Heart Head Fem Delta 36mm +0mm 170-36-00 - [id number] Implanted:Qty : 1 on 03/21/2023 by Eric Parkinson MD at [facility] [employer] Left: Hip EXACTECH [id number] 05/31/2027 170-36-00 / [id number] / Stem Fem Pf Sz9 113mm - [id number] Implanted:Qty : 1 on 03/21/2023 by Eric Parkinson MD at [facility] [employer] Left: Hip EX[employer]ECH [id number] 10/03/2027 / [id number] / Liner Ntrl Altn Xle Grp6 36mm 6 - [id number] Implanted:Qty : 1 on 03/21/2023 by Eric Parkinson MD at [facility] [employer] Left: Hip EXACTECH [id number] 03/17/2027 / [id number] / Cup Clstr-Hole Altn Pcg6 54mm 93-599-99 4 - [id number] Implanted:Qty : 1 on 03/21/2023 by Eric Parkinson MD at [facility] [employer] Left: Hip EXACTECH [id number] 10/25/203254 / [id number] / Procedures Procedure Name Priority Date/Time Associated [...] 10.8 K/ L 09/13/2024 1:39 PM EDT [facility] RBC 3.28(L) 3.80 - 5.20 M/ L 09/13/2024 1:39 PM EDT [facility] Hemoglobin 11.3(L) 12.8 - 17.4 GM/DL 09/13/2024 1:39 PM EDT [facility] Hematocrit 34.2(L) 39.0 - 51.0 % 09/13/2024 1:39 PM EDT [facility] MCV 104(H) 81 - 101 fL 09/13/2024 1:39 PM EDT [facility] MCH 34.5(H) 27.0 - 34.0 pg 09/13/2024 1:39 PM EDT [facility] MCHC 33.0 32.0 - 36.0 GM/DL 09/13/2024 1:39 PM EDT [facility] RDW 14.5 11.5 - 14.5 % 09/13/2024 1:39 PM EDT [facility] Platelets 202 150 - 400 K/CU MM 09/13/2024 1:39 PM EDT [facility] MPV 9.9 9.4 - 12.4 fL 09/13/2024 1:39 PM EDT [facility] Nucleated Red Blood Cell 0.0 0 - 0.2 % 09/13/2024 1:39 PM EDT [facility] % Neutros 75 37 - 80 % 09/13/2024 1:39 PM EDT [facility] % Lymphs 16 10 - 50 % 09/13/2024 1:39 PM EDT [facility] % Monos 7 5 - 13 % 09/13/2024 1:39 PM EDT [facility] % Eos 0 0 - 7 % 09/13/2024 1:39 PM EDT [facility] % Baso 0 0 - 3 % 09/13/2024 1:39 PM EDT [facility] NRBC Absolute <0.01 0 - 0.012 K/ul 09/13/2024 1:39 PM EDT [facility] # Neutros 7.02(H) 2.00 - 6.90 K/ L 09/13/2024 1:39 PM EDT [facility] # Lymphs 1.51 0.60 - 3.40 K/ L 09/13/2024 1:39 PM EDT [facility] # Monos 0.69 0.00 - 0.90 K/ L 09/13/2024 1:39 PM EDT [facility] # Eos 0.03 0.00 - 0.70 K/ L 09/13/2024 1:39 PM EDT [facility] # Baso 0.02 0.00 - 0.20 K/ L 09/13/2024 1:39 PM EDT [facility] Immature Granulocytes-Re lative 0.50 % 09/13/2024 1:39 PM EDT [facility] # IG 0.05(H) 0.00 - 0.00 K/uL 09/13/2024 1:39 PM EDT [facility] Blood Venipuncture / Unknown 09/13/2024 1:26 PM EDT 09/13/2024 1:26 PM EDT Narrative [facility] - 09/13/2024 1:39 PM EDT When [...] MD LAB BLOOD ORDERABLES Final Res ult [facility] [address] [place] [address] * (ABNORMAL) Testosterone Free And Total, Adult Male(SENDOUT) (09/13/2024 1:26 PM EDT) Testosterone by Immunoassay <3(L) 300 - 720 ng/dL 09/17/2024 12:18 AM EDT [facility] Comment: INTERPRETIVE INFORMATION: Testosterone by Immunoassay Testosterone immunoassays are both imprecise and inaccurate at low testosterone concentrations, such as those found in children and cisgender females. For these individuals, testing by mass spectrometry is recommended; refer to Testosterone (Adult Females, Children, or Individuals on Testosterone-Suppressing Hormone Therapy) ([employer] test code 2837606). Free or bioavailable testosterone measurements may provide supportive information. For individuals on testosterone hormone therapy, refer to cisgender male reference intervals. No reference intervals have been established for males younger than 14 years or for cisgender females. For a complete set of all established reference intervals, refer to [employer]/Tests/Pub/[id number]. Sex Hormone Binding Globulin 64 19 - 76 nmol/L 09/17/2024 12:18 AM EDT [facility] Comment: REFERENCE INTERVAL: Sex Hormone Binding Globulin Access complete set of age- and/or gender-specific reference intervals for this test in the [employer] Laboratory Test Directory ([employer] Testosterone, Free Calculation <1(L) 47 - 244 pg/mL 09/17/2024 12:18 AM EDT [facility] Comment: INTERPRETIVE INFORMATION: Testosterone, Free Calculation Free [...] Children, or Individuals on Testosterone-Suppressing Hormone Therapy) ([employer] test code 4409708). For individuals on testosterone hormone therapy, refer to cisgender male reference intervals. No reference intervals have been established for males younger than 14 years or for cisgender females. For a complete set of all established reference intervals, refer to [employer]/Tests/Pub/[id number]. Testosterone, Percentage Free <1.1(L) 1.6 - 2.9 % 09/17/2024 12:18 AM EDT [facility] Comment: Performed By: [facility] [address] [place] [address] Shop Clerk: Cameron Javier MD, PhD CLIA Number: [id number] Blood Venipuncture / Unknown 09/13/2024 1:26 PM EDT 09/13/2024 1:26 PM EDT Xochitl Serra MD LAB BLOOD ORDERABLES Final Res ult Performing Organization Address City/[facility]/ZIP Co de Phone Number [facility] [address] [place] [address], [facility] [phone] * (ABNORMAL) PSA (Lanezer, LUCIA, Conenr, Scott, [facility]) (09/13/2024 1:26 PM EDT) PSA diagnostic (ng/mL) <0.13(L) 0.13 - 4 ng/mL 09/13/2024 8:40 PM EDT [facility] Blood Venipuncture / Unknown 09/13/2024 1:26 PM EDT 09/13/2024 1:26 PM EDT Xochitl Serra MD LAB BLOOD ORDERABLES Final Res ult Performing Organization Address City/[facility]/ZIP Co de Phone Number [facility] [address] [place] [address] * (ABNORMAL) CMP (09/13/2024 1:26 PM EDT) Sodium 140 136 - 145 meq/L 09/13/2024 3:48 PM EDT [facility] Potassium 4.5 3.5 - 5.1 meq/L 09/13/2024 3:48 PM EDT [facility] Chloride 101 98 - 107 meq/L 09/13/2024 3:48 PM EDT [facility] CO2 33(H) 21 - 32 meq/L 09/13/2024 3:48 PM EDT [facility] Calcium 9.3 8.5 - 10.1 mg/dL 09/13/2024 3:48 PM EDT [facility] Glucose 237(H) 74 - 100 mg/dL 09/13/2024 3:48 PM EDT [facility] BUN 39(H) 7 - 18 mg/dL 09/13/2024 3:48 PM EDT [facility] Creatinine 1.93(H) 0.70 - 1.20 mg/dL 09/13/2024 3:48 PM EDT [facility] BUN/Creatinine 20 09/13/2024 3:48 PM EDT [facility] Albumin 3.6 3.4 - 5.0 g/dL 09/13/2024 3:48 PM EDT [facility] Alkaline Phosphatase 151(H) 46 - 116 U/L 09/13/2024 3:48 PM EDT [facility] ALT 19 12 - 78 U/L 09/13/2024 3:48 PM EDT [facility] AST 17 15 - 37 U/L 09/13/2024 3:48 PM EDT [facility] Total Bilirubin 0.5 0.2 - 1.0 mg/dL 09/13/2024 3:48 PM EDT [facility] Protein, Total 7.0 6.4 - 8.2 gm/dL 09/13/2024 3:48 PM EDT [facility] Anion Gap 11 11 - 22 09/13/2024 3:48 PM EDT [facility] A/G Ratio 1.1 09/13/2024 3:48 PM EDT [facility] Globulin 3.4 g/dL 09/13/2024 3:48 PM EDT [facility] Osmolality Calc 296.5 mOsm/kg 3:48 PM EDT [facility] eGFR (mL/min/1.73m2) 33(L) >=60 mL/min/1.7 3m2 09/13/2024 3:48 PM EDT [facility] Comment:ESTIMATED GFR IS NOT ACCURATE CREATININE CLEARANCE IN PREDICTING GLOMERULAR FILTRATION RATE. ESTIMATED GFR IS NOT APPLICABLE FOR DIALYSIS PATIENTS. Blood Venipuncture / Unknown 09/13/2024 1:26 PM EDT 09/13/2024 1:26 PM EDT us Xochitl Serra MD LAB BLOOD ORDERABLES Final Res ult [facility] [address] [place], [place] [address] [phone] * (ABNORMAL) Hemoglobin A1c (03/15/2023 11:20 AM EST) Hemoglobin A1C 6.5(H) 4.2 - 6.3 % 03/15/2023 12:24 PM EST [facility] Comment: Hemoglobin A1C levels are related to mean glucose during the preceding 2-3 months. Less than 7% demonstrates glycemic control in diabetic patients. Hemoglobin AlC % Suggested Diagnosis > or = 6.5 Diabetic 5.7 - 6.4 Prediabetic <5.7 Non-diabetic eAVG Glucose 139.85 mg/dL 03/15/2023 12:24 PM EST [facility] Blood Venipuncture / Unknown 03/15/2023 11:20 AM EST 03/15/2023 11:35 AM EST us Eric Parkinson MD LAB BLOOD ORDERABLES Fi nal Result Performing Organization Address City/[facility]/ZIP Co de Phone Number [facility] [address] [phone] from Last 3 Months or Most Recently Relevant to Health Maintenance Insurance [place]ICARE [place] [address] [facility] SUPP Advance Directives For more information, please contact: [phone] * Full Code (Latest Code Status on File) Date Activated Date Inactivated Comments 08/16/2023 10:48 AM 08/16/2023 7:35 PM * Full Code Date Activated Date Inactivated Comments 03/21/2023 11:25 AM 03/24/2023 3:00 PM * Full Code Date Activated Date Inactivated Comments 03/21/2023 5:18 AM 03/21/2023 11:25 AM Care Teams It Infrastructure Specialist Relationship Specialty Start Date End Date Christopher Yadav MD [address] [place] [address] PCP - General General Internal Medicine 03/15/23
--- OUTSIDE RECORDS SUMMARY | 2024-09-23 10:30 | XMS_ITS | Encounter Summary ---
Author Organization [employer] ([place], [place], [place], [place]) Address [address] [place] [address] Care Team Providers Care Reduction Furnace Operator Name Role Phone Christopher Yadav MD Primary Care Provider [phone] Encounter Details Date Type Department Care Team (Latest Contact Info) Description 09/17/2024 Travel Social History Tobacco Use Types Packs/Day [...] Date Ehsan rded Speak language other than Angolan at home Not on file 03/11/2023 Want [...] Description 12/17/2024 9:45 AM EDT Office Visit [facility] - [address] [place] [address] Xochitl Serra MD [facility] [address] [address] documented as of this encounter Visit Diagnoses Not on filedocumented in this encounter Care Teams Reduction Furnace Operator Relationship Specialty Start Date End Date Christopher Yadav MD [address] [place] [address] PCP - General General Internal Medicine 03/15/23 documented as of this encounter
--- OUTSIDE RECORDS SUMMARY | 2024-09-23 10:31 | XMS_ITS | Clinical Summary ---
Author Organization Healthcare Address [address] [place] [address] Care Team Providers Care Complementary Health Therapists Name Role Phone Christopher Yadav MD Primary Care Provider [phone] Allergies No known active allergies Medications amLODIPine (Norvasc) 5 MG tablet Take 1 tablet (5 mg) by mouth 1 (one) time each day. 7 Active allopurinol (Zyloprim) 100 MG tablet Take 1 tablet (100 mg) by mouth 1 (one) time each day. 7 Active aspirin 81 MG EC tablet Take 1 tablet (81 mg) by mouth every night. Active calcitriol (Rocaltrol) 0.25 MCG capsule Take 1 capsule (0.25 mcg) by mouth 3 (three) times a week. 4 Active clopidogrel (Plavix) 75 MG tablet Take 1 tablet (75 mg) by mouth every night. 7 Active coenzyme Q-10 100 MG capsule Take 1 capsule (100 mg) by mouth every night. Active cyanocobalamin 1000 MCG tablet Take 1 tablet (1,000 mcg) by mouth 1 (one) time each day. Active famotidine (Pepcid) 20 MG tablet Take 1 tablet (20 mg) by mouth 1 (one) time each day. 4 Active furosemide (Lasix) 20 MG tablet Take 1 tablet (20 mg) by mouth 1 (one) time each day. 3 Active gabapentin (Neurontin) 300 MG capsule 1 capsule in the morning and 2 capsules at night 9 Active hydrALAZINE (Apresoline) 10 MG tablet Take 1 tablet (10 mg) by mouth twice a day. 4 Active insulin NPH-insulin regular (Novolin 70-30,Humulin 70-30) (70-30) 100 UNIT/ML injection vial Inject 0.42 mL (42 Units) under the skin 2 (two) times a day before meals. 42 units AM and 16 units PM 7 Active polyethylene glycol (Miralax) 17 g packet Take 17 g by mouth 1 (one) time each day. Active simethicone (Mylicon,Gas-X) 125 MG capsule Take 1 capsule (125 mg) by mouth every night. 9 Active simvastatin (Zocor) 40 MG tablet Take 1 tablet (40 mg) by mouth every night. 7 Active tamsulosin (Flomax) 0.4 MG 24 hr capsule 4 Active baclofen (Lioresal) 10 MG tablet Take by mouth 3 (three) times a day if needed for muscle spasms. Active busPIRone (Buspar) 10 MG tablet Active glyBURIDE (Diabeta) 5 MG tablet TWO TABLETS Q AM AND EVENING Active insulin detemir (Levemir FlexPen) 100 UNIT/ML injection pen Active lisinopril-hydr oCHLOROthiazide 20-25 MG tablet Acti ve abiraterone (Zytiga) 250 MG chemo tablet Take 4 tablets (1,000 mg total) by mouth 1 (one) time each day. 4 09/09/19 25 predniSONE (Deltasone) 5 MG tablet Take 1 tablet (5 mg) by mouth 1 (one) time each day. 4 09/09/19 25 Active Problems Problem Noted Date Diagnosed Date Obesity (BMI 35.0-39.9 without comorbidity) 08/28 Immunizations Immunization Administration Dates Next Due Influenza, seasonal, injectable 12/03/2015 Pneumococcal Polysaccharide PPV23 12/03/2015 Family History Medical History Relation Name Comments Cardiac disorder Mother Diabetes type II Mother Anesthesia problems Neg Hx Malig Hyperthermia Neg Hx Relation Name Status Comments Mother Social History Tobacco Use Types Packs/Day Years Used Date Smoking Tobacco: Former Cigarettes Smokeless Tobacco: Never Tobacco Cessation:Counseling Given: Not [...] Sign Reading Time Taken Comments Blood Pressure 155/70 04/11/2024 10:19 AM EST Pulse 77 04/11/2024 10:19 AM EST Temperature 36.7 C (98.1 F) 04/11/2024 10:19 AM EST Respiratory Rate 16 04/11/2024 10:19 AM EST Oxygen Saturation 91% 04/11/2024 10:19 AM EST Inhaled Oxygen Concentration - - Weight 124 kg (273 lb 2.4 oz) 04/11/2024 10:19 A M EST Height 181.6 cm (5' 11.5 ) 04/11/2024 10:[address] Body Mass Index 37.57 04/11/2024 10:19 AM EST Plan of Treatment Health Maintenance Due Date Last Done Comments [facility]-Depression Screening 1938 [facility]-Medicare Annual Wellness (AWV) 1938 [facility]-Infant/Child/Adol SDOH Screenings 1938 [facility]- SDOH Screenings 1956 [facility]-Adult SDOH Screenings 1956 [facility]-Zoster Vaccines (1 of 2) 1957 [facility]-RSV Vaccine: 60+ Years or (1 - 1-dose 75+ series) 2013 [facility]-DTaP,Tdap,and Td Vaccines (2 - Tdap) 02/28/2022 02/29/2012, 01/16/1998 [id number] Vaccine ( season) 2023 02/03/2023, 12/22/2021, 06/25/2021, Additional history exists [facility]-Influenza Vaccine (#1) 10/29/202401/08, 02/03/2023, 12/03/2015, Additional history exists [facility]-Pneumococcal Vaccine: 50+ Years Completed 12/16/2016, 12/03/2015, 03/14/2013, Additional history exists [facility]-Obesity Intervention Completed 025, 01/25/2024, 10/05/2023, Additional history exists HPV Vaccines Aged Out No longer eligi ble based on patient's age to complete this topic [facility]-HIB Vaccines Aged Out No longer e ligible based on patient's age to complete this topic [facility]-Hepatitis A Vaccines Aged Out No longer eligible based on patient's age to complete this topic [facility]-IPV Vaccines Aged Out No longer e ligible based on patient's age to complete this topic [facility]-Rotavirus Vaccines Aged Out No lo nger eligible based on patient's age to complete this topic Medical Devices Implanted Type Area Market Master Device Identifier Shelf Expiration Date Model / Serial / Lot Hip Hip Left: Hip Insurance MEDICARE [facility] Care Teams Complementary Health Therapists Relationship Specialty Start Date End Date Christopher Yadav MD [facility] [address] [place] [address] PCP - General 07/11/20
--- OUTSIDE RECORDS SUMMARY | 2024-09-23 10:31 | XMS_ITS | Encounter Summary ---
Author Organization [employer] ([place], [place], [place], [place]) Address [address] [place] [address] Care Team Providers Care Carpenter Mold Name Role Phone Christopher Yadav MD Primary Care Provider [phone] Encounter Details Date Type Department Care Team (Late st Contact Info) Description 07/14/2023 Outside Orders [facility] - [address], [address] [address] Emi Lau Social History Tobacco Use Types Packs/Day Years [...] Date Ehsan rded Speak language other than [place] at home Not on file 03/11/2023 Want [...] Description 12/17/2024 9:45 AM EDT Office Visit [facility] - [address] [place] [address] Xochitl Serra MD [address] [place] [address] documented as of this encounter Visit Diagnoses Not on filedocumented in this encounter Care Teams Carpenter Mold Relationship Specialty Start Date End Date Christopher Yadav MD [address] [place] [address] [place] [address] PCP - General General Internal Medicine 03/15/23 documented as of this encounter
--- OUTSIDE RECORDS SUMMARY | 2024-09-23 10:31 | XMS_ITS | Encounter Summary ---
Author Organization [employer] ([place], [place], [place], [place]) Address [address] [place] [address] Care Team Providers Care Chief Projectionist Name Role Phone Christopher Yadav MD Primary Care Provider [phone] Encounter Details Date Type Department Care Team (Late st Contact Info) Description 08/04/2023 Surgery Prep [facility] - [address] [address] Samuel Mata MD [address] [address] Elevated PSA (Primary Dx) Social History Tobacco Use Types Packs/Day Years [...] Date Ehsan rded Speak language other than Icelandic at home Not on file 03/11/2023 Want [...] Description 12/17/2024 9:45 AM EDT Office Visit [facility] - [address] [place] [address] Xochitl Serra MD [address] [place] [address] documented as of this encounter Visit Diagnoses Diagnosis Elevated PSA- Primary Elevated prostate specific antigen (PSA) documented in this encounter Care Teams Chief Projectionist Relationship Specialty Start Date End Date Christopher Yadav MD [address] [place] [address] PCP - General General Internal Medicine 03/15/23 documented as of this encounter
--- OUTSIDE RECORDS SUMMARY | 2024-09-23 10:31 | XMS_ITS | Encounter Summary ---
Author Organization [employer] ([place], [place], [place], [place]) Address [address] [place] [address] Care Team Providers Care Thumb Sewer Name Role Phone Christopher Yadav MD Primary Care Provider [phone] Encounter Details Date Type Department Care Team ([facility] st Contact Info) Description 08/23/2023 Telephone [facility] - [address] [place] [address] Wanda Peres, COOLER SERVICER Social History Tobacco Use Types Packs/Day Years [...] Date Ehsan rded Speak language other than Tunisian at home Not on file 03/11/2023 Want [...] Juliana Poe RN documented in this encounter Miscellaneous Notes * Telephone Encounter - Wanda Peres CMA - 08/23/2023 3:41 PM EDT Notified son of upcoming bone scan appt on 08/29. He verbalized understanding. I will also send an appt reminder in mail to pt. documented in this encounter Plan of Treatment Upcoming Encounters Date Type Department Care Team (Late st Contact Info) Description 12/17/2024 9:45 AM EDT Office Visit [facility] - [address] [place] [address] Xochitl Serra MD [address] [address] documented as of this encounter Visit Diagnoses Not on filedocumented in this encounter Care Teams Thumb Sewer Relationship Specialty Start Date End Date Christopher Yadav MD [address] [place] [address] PCP - General General Internal Medicine 03/15/23 documented as of this encounter
--- NOTE | 2024-09-23 10:32 | CT_ITS ---
PROCEDURE INFORMATION: Exam: CTA Chest With Contrast Exam date and time: 09/23/2024 11:15 AM Age: 84 years old Clinical indication: Shortness of breath; Additional info: Prostate cancer, SOB TECHNIQUE: Imaging protocol: Computed tomographic angiography of the chest with contrast. Exam focused on the arteries. 3D rendering (Not supervised by radiologist): MIP and/or 3D reconstructed images were created by the technologist. Radiation optimization: All CT scans at this facility use at least one of these dose optimization techniques: automated exposure control; mA and/or kV adjustment per patient size (includes targeted exams where dose is matched to clinical indication); or iterative reconstruction. Contrast material: ISOVUE; Contrast volume: 70 ml; Contrast route: INTRAVENOUS (IV); COMPARISON: CR XR CHEST PORTABLE 12/28/2023 5:08 PM FINDINGS: Pulmonary arteries: Negative for acute pulmonary embolism. Aorta: Unremarkable. No aortic aneurysm. No aortic dissection. Lungs: Emphysema. No focal consolidation. Pleural spaces: Tiny pleural effusions bilaterally. Heart: Unremarkable. No cardiomegaly. No pericardial effusion. Lymph nodes: Unremarkable. No enlarged lymph nodes. Bones/joints: Sclerotic foci within multiple thoracic vertebral bodies, largest along the superior endplate of T4 measures 1 cm. Given submitted history, osseous metastases can not be excluded. No acute fracture. Soft tissues: Unremarkable. Other findings: Multiple sections limited by patient motion. IMPRESSION: 1. Multiple sections limited by patient motion. 2. Negative for acute pulmonary embolism. 3. Tiny pleural effusions bilaterally. 4. Sclerotic foci within multiple thoracic vertebral bodies, largest along the superior endplate of T4 measures 1 cm. Given submitted history, osseous metastases can not be excluded.
--- NOTE | 2024-09-23 10:32 | CT_ITS ---
PROCEDURE INFORMATION: Exam: CT Abdomen And Pelvis With Contrast Exam date and time: 09/23/2024 11:15 AM Age: 84 years old Clinical indication: Other: Global weakness; Additional info: Prostate cancer on chemo, global weakness TECHNIQUE: Imaging protocol: Computed tomography of the abdomen and pelvis with contrast. 3D rendering (Not supervised by radiologist): MIP and/or 3D reconstructed images were created by the technologist. Radiation optimization: All CT scans at this facility use at least one of these dose optimization techniques: automated exposure control; mA and/or kV adjustment per patient size (includes targeted exams where dose is matched to clinical indication); or iterative reconstruction. Contrast material: ISOVUE; Contrast volume: 70 ml; Contrast route: IV; COMPARISON: CT ABDOMEN PELVIS WO CON 12/28/2023 2:44 PM FINDINGS: Liver: Normal. No mass. Gallbladder and biliary ducts: Stable cholelithiasis. Pancreas: Normal. No ductal dilation. Spleen: Normal. No splenomegaly. Adrenal glands: Normal. No mass. Kidneys and ureters: Stable simple cortical renal cyst inferior pole left kidney. No additional workup necessary. No hydronephrosis. Stomach and bowel: Colonic diverticulosis without CT evidence of diverticulitis. Appendix: No evidence of appendicitis. Intraperitoneal space: Unremarkable. No free air. No significant fluid collection. Vasculature: Unremarkable. No abdominal aortic aneurysm. Lymph nodes: Unremarkable. No enlarged lymph nodes. Urinary bladder: Unremarkable as visualized. Reproductive: Unremarkable as visualized. Bones/joints: Left hip prosthesis with stable extraosseous bone formation along the anterolateral joint. No acute fracture. Soft tissues: Unremarkable. IMPRESSION: 1. Stable cholelithiasis. 2. Colonic diverticulosis without CT evidence of diverticulitis.
--- NOTE | 2024-09-23 10:33 | ECG_ITS ---
APPROVED REPORT Exam: Resting ECG HR:90 bpm ECG Measurements Heart Rate 90 AXES MS 292 P 89 QRSd 114 QRS -54 QT 354 T 77 QTc 402 Conclusion SINUS RHYTHM WITH FIRST DEGREE AV BLOCK WITH OCCASIONAL VENTRICULAR PREMATURE COMPLEXES LEFT AXIS DEVIATION [QRS AXIS < -30] MODERATE INTRAVENTRICULAR CONDUCTION DELAY [110+ ms QRS DURATION] ABNORMAL ECG UNCONFIRMED REPORT Electronically signed by : LEODAN LEON, 09/25/2024 03:51:07
--- NOTE | 2024-09-23 10:34 | [facility].EDCP ---
Discharge Plan Disposition Chief Complaint: Shortness of Breath/Dyspnea Prescriptions Prescriptions: No Action aspirin [Adult Low Dose Aspirin] 81 mg tablet,delayed release (DR/EC) 81 mg PO DAILY Novolin 70/30 U-100 Insulin 100 unit/mL (70-30) suspension 58 unit SQ BID Patient Comments: INJECT 58 UNITS UNDER THE SKIN IN THE MORNING WITH BREAKFAST THEN 52 UNITS WITH SUPPER prednisone 5 mg tablet 5 mg PO DAILY abiraterone 250 mg tablet 1,000 mg PO DAILY hydralazine 10 mg tablet 20 mg PO BID Qty: 180 1RF amlodipine 5 mg tablet See Rx Instructions .ROUTE .COMPLEX Qty: 180 1RF Dose Instruction: TAKE 1 TABLET BY MOUTH TWICE DAILY FOR BLOOD PRESSURE Rx Instructions: TAKE 1 TABLET BY MOUTH TWICE DAILY FOR BLOOD PRESSURE simvastatin 40 mg tablet 40 mg PO HS Qty: 90 1RF calcitriol 0.25 mcg capsule 0.25 mcg PO MOWEFR Qty: 36 1RF tamsulosin 0.4 mg capsule 0.4 mg PO HS Qty: 90 1RF clopidogrel 75 mg tablet 75 mg PO DAILY Qty: 90 1RF gabapentin 300 mg capsule 300 mg PO TID Qty: 270 1RF allopurinol 100 mg tablet 100 mg PO BID Qty: 180 1RF famotidine 20 mg tablet 20 mg PO DAILY Qty: 90 1RF furosemide 20 mg tablet 40 mg PO DAILY Qty: 180 1RF Patient Comments: TAKE 1 TABLET BY MOUTH ONE IN THE MORNING AND ONE AT BEDTIME Referrals Follow up/Referrals: Christopher Yadav MD [Primary Care Provider, Medical] - See instructions Print Language Print Language: Azerbaijani Discharge ED Provider: Thompson Lau HPI General Chief Complaint: Shortness of Breath/Dyspnea Stated Complaint: Came off Cancer Meds; General Illness; Fever Time Seen by Provider: 09/23/24 10:27 History of Present Illness HPI narrative: Patient is a 84-year-old male with past medical history of insulin-dependent diabetes, prostate cancer currently on chemotherapy, hypertension, hyperlipidemia, gout on allopurinol, reported heart failure on furosemide, chronic lower extremity edema who presents emergency department for generally feeling unwell. He took his last oral chemotherapy for his prostate a little over a week ago. Since Tuesday he has been feeling generally unwell and globally weak. He has slight shortness of breath but no chest pain. No abdominal pain. Decreased urine output, normal stooling. Due to generally feeling unwell he presents here for continued evaluation. No other acute complaints at this time. Please note that above description of symptoms, in this electronic medical record under categorization of recalled from ER triage doctor by RN are reflective of an initial nursing assessment, however, is not reflective of my full history and physical exam that was personally taken and clarified. Consequentially, this preceding description of symptoms, which may include the patient's categorized chief complaint in the EMR, do not reflect my personal clinical impression, and the ultimate description of history of present illness and patient stated complaints should be deferred to this section of the note. Unless stated otherwise or congruent with this section of the note, additional signs, symptoms, or incongruence should be interpreted as inaccurate with my clinical impression. Related Data Home Medications ?Medication ?Instructions ?Recorded ?Confirmed aspirin 81 mg tablet,delayed 81 mg PO DAILY 10/19/18 07/09/24 release (Adult Low Dose Aspirin) insulin human U-100 NPH-regulr 58 unit SQ BID 08/02/19 07/09/24 70-30 mix 100 unit/mL subcutaneous susp (Novolin 70/30 U-100 Insulin) abiraterone 250 mg tablet 1,000 mg PO DAILY 10/18/23 07/09/24 prednisone 5 mg tablet 5 mg PO DAILY 10/18/23 07/09/24 Previous Rx's ?Medication ?Instructions ?Recorded amlodipine 5 mg tablet See Rx Instructions .Route 03/05/24 .COMPLEX #180 tabs simvastatin 40 mg tablet 40 mg PO HS #90 tabs 04/23/24 calcitriol 0.25 mcg capsule 0.25 mcg PO MOWEFR #36 caps 05/04/24 tamsulosin 0.4 mg capsule 0.4 mg PO HS #90 caps 05/15/24 clopidogrel 75 mg tablet 75 mg PO DAILY #90 tabs 07/06/24 gabapentin 300 mg capsule 300 mg PO TID #270 caps 07/06/24 hydralazine 10 mg tablet 20 mg (2 x 10 mg) PO BID #180 tabs 07/09/24 allopurinol 100 mg tablet 100 mg PO BID #180 tabs 08/06/24 famotidine 20 mg tablet 20 mg PO DAILY #90 tabs 09/12/24 furosemide 20 mg tablet 40 mg (2 x 20 mg) PO DAILY #180 09/12/24 tabs Allergies Allergy/AdvReac Type Severity Reaction Status Date / Time No Known Allergies Allergy Verified 07/09/24 11:45 [facility] Disclaimer: The information contained in this section may have been updated after the patient was seen, as this information can be updated by other users. Medical History Bruise of toe Hypertension Ingrown nail of great toe of left foot Postoperative dehiscence of skin wound Blister of fifth toe, left Osteomyelitis of toe of left foot Other specified symptoms and signs involving the circulatory and respiratory systems Cellulitis of left foot Pain around toenail Onychomycosis Encounter for dialysis DIALYSIS X2 IN PAST Tear of retina RIGHT History of COVID-19 History of cataract Edema BLE Renal disease HTN (hypertension), benign HLD (hyperlipidemia) T2DM (type 2 diabetes mellitus) Coronary artery disease Anxiety Surgical History Hx of cataract surgery Hx of colonoscopy History of surgery JAW SX History of coronary artery stent placement Hx of cardiac cath Family History Other Diabetes Heart attack Social History Smoking Status: Smoker, status unknown tobacco type: cigarettes alcohol intake: never substance use type: denies use current occupational status: retired Travel in the last 8 weeks?: None Have you lived/traveled outside [place] in past 30 days?: No Contact w/someone who lives/traveled outside US past 30 days?: No Exposure to someone with infectious disease in past 14 days?: No Do you have a fever (greater than 100.4 F or 38 C)?: Yes Have you tested positive for COVID-19?: No Exposed to someone with COVID-19 in past 14 days?: No Do you have a sore throat?: No Do you have a cough?: No Do you have any weakness?: Yes Do you have any diarrhea?: No Are you experiencing any unusual bleeding?: No Do you have any muscle aches/pain?: No Do you have any abdominal pain?: No Are you experiencing loss of taste or smell?: No Other Medical History Have you received the Flu Vaccine for this season: No Have you received the Pneumonia Vaccine: Yes ROS Obtained: Yes Systems reviewed as appropriate & no additional complaints except as documented Physical Exam General General appearance: alert and in no apparent distress Head Head exam: atraumatic and normocephalic Eye Eye exam: Present PERRL and EOMI ENT ENT exam: Present mucous membranes moist Neck Neck exam: Present normal inspection Chest Chest inspection: Present normal inspection and symmetric chest wall rise Respiratory Respiratory exam: Present normal lung sounds bilaterally; Absent respiratory distress Cardiovascular Cardiovascular exam: Present regular rate and normal rhythm Abdominal Exam Abdominal exam: Present soft; Absent tenderness Extremities Exam Extremities exam: Present other (1+ pitting edema to the knee bilaterally) Neurological Exam Neurological exam: Present alert and CN II-XII intact Psychiatric Psychiatric exam: Present normal affect Skin Skin exam: Present warm and dry HEART Score HEART Score HEART Score assessment performed?: Yes History (anamnesis): Slightly suspicious ECG: Non-specific disturbance Age: >65 years Risk factors: 3 or more risk factors Troponin: 1-3x normal limit HEART Score: 6 Critical Care Critical Care Time Critical Care Time: Yes Attestation: On 09/23/24, the high probability of a clinically significant, sudden or life threatening deterioration of the following system(s) required my full and direct attention, intervention and personal management. The time I documented below is in addition to time spent performing reported procedures but includes the following listed in this critical care notation. Total Time Total Critical Care Time: 35 Medical Decision Making Carlos Inquiry Pt receiving controlled substance: No Vital Signs Vital Signs: 09/23/24 10:31 09/23/24 10:34 09/23/24 10:45 Temperature 99.6 F Temperature Source Oral Pulse Rate 94 H 91 H Pulse Rate [Left] 95 H Respiratory Rate 16 18 14 Blood Pressure 152/52 H Blood Pressure [Right Arm] 150/59 H Blood Pressure Mean 85 Blood Pressure Mean [Right Arm] 89 Blood Pressure Source [Right Arm] Automatic Cuff 02 Sat by Pulse Oximetry 95 84 L 96 Oxygen Delivery Method Nasal Cannula Room Air Nasal Cannula Oxygen Flow Rate (LPM) 2 2 09/23/24 11:00 09/23/24 11:01 09/23/24 11:30 Temperature Temperature Source Pulse Rate 89 89 86 Pulse Rate [Left] Respiratory Rate 16 16 16 Blood Pressure 130/56 L 136/66 Blood Pressure [Right Arm] Blood Pressure Mean 80 Blood Pressure Mean [Right Arm] Blood Pressure Source [Right Arm] 02 Sat by Pulse Oximetry 97 98 97 Oxygen Delivery Method Nasal Cannula Nasal Cannula Oxygen Flow Rate (LPM) 2 2 09/23/24 12:00 09/23/24 12:06 09/23/24 12:31 Temperature Temperature Source Pulse Rate 91 H 90 86 Pulse Rate [Left] Respiratory Rate 23 17 16 Blood Pressure 136/56 L 136/56 L 126/53 L Blood Pressure [Right Arm] Blood Pressure Mean Blood Pressure Mean [Right Arm] Blood Pressure Source [Right Arm] 02 Sat by Pulse Oximetry 95 96 Oxygen Delivery Method Room Air Room Air Oxygen Flow Rate (LPM) 09/23/24 13:00 Temperature Temperature Source Pulse Rate 91 H Pulse Rate [Left] Respiratory Rate 17 Blood Pressure 120/57 L Blood Pressure [Right Arm] Blood Pressure Mean Blood Pressure Mean [Right Arm] Blood Pressure Source [Right Arm] 02 Sat by Pulse Oximetry 95 Oxygen Delivery Method Room Air Oxygen Flow Rate (LPM) Lab Data Labs: Lab Results 09/23/24 10:39: WBC 7.9, RBC 3.13 L, Hgb 10.8 L, Hct 32.2 L, MCV 102.9 H, MCH 34.5 H, MCHC 33.5, RDW 13.9, Plt Count 190, MPV 10.1, Neut % (Auto) 61.1, Lymph % (Auto) 24.5, [place] % (Auto) 13.1 H, Eos % (Auto) 0.5, Baso % (Auto) 0.3, Neut # (Auto) 4.8, Lymph # (Auto) 1.9, [place] # (Auto) 1.0, Eos # (Auto) 0.0, Baso # (Auto) 0.0, VBG pH 7.45 H, VBG pCO2 44.3, VBG pO2 59.5 H, VBG HCO3 30.5 H, VBG Total CO2 31.9 H, VBG O2 Saturation 90.4 H, VBG Base Excess 5.9 H, VBG Lactic Acid 2.0, Sodium 131 L, Potassium 3.7, Chloride 91 L, Carbon Dioxide 33 H, Anion Gap 10.7, BUN 20, Creatinine 1.40 H, Estimated Creat Clear 68, Estimated GFR 48 L, Est GFR ( Amer) 58 L, Glucose 169 H, Calcium 8.7, Magnesium 1.5 L, Total Bilirubin 0.9, AST 34, ALT 17, Alkaline Phosphatase 108, Total Creatine Kinase 97, Troponin I 0.04 H, NT-Pro-B Natriuret Pep 713 H, Total Protein 7.0, Albumin 4.0, Globulin 3.0, Albumin/Globulin Ratio 1.3, Lipase 80 09/23/24 10:43: SARS-CoV-2 (PCR) Not detected, Influenza A Untype (PCR) Not detected, Influenza Type B (PCR) Not detected 09/23/24 12:02: Urine Color Yellow, Urine Appearance Clear, Urine pH 6.0, Ur Specific [place] <= 1.005, Urine Protein 1+ A, Urine Glucose (UA) Negative, Urine Ketones Trace, Urine Blood Negative, Urine Nitrate Negative, Urine Bilirubin Negative, Urine Urobilinogen 0.2, Ur Leukocyte Esterase Negative, Urine RBC None, Urine WBC None, Ur Squamous Epith Cells None, Urine Bacteria None, Hyaline Casts Occ 09/23/24 10:39 09/23/24 10:39 Response Orders (Tests/Meds): ED MEDICATIONS Generic Name Dose Route Start Last Admin Trade Name Freq PRN Reason Stop Dose Admin Furosemide 80 mg 09/23/24 12:59 Furosemide 40mg/4ml Vial IV 09/23/24 13:00 ONCE ONE Magnesium Sulfate 2 gm in 50 mls @ 50 mls/hr 09/23/24 13:00 Magnesium Sulfate 2gm/50ml Premix IV 09/23/24 13:59 ONCE ONE Discontinued Medications Generic Name Dose Route Start Last Admin Trade Name Freq PRN Reason Stop Dose Admin Iopamidol 70 ml 09/23/24 11:13 09/23/24 11:14 Iopamidol-370 (76%);100ml Bottle IV 09/23/24 11:14 70 ml ONCE ONE Administration Sodium Chloride 10 ml 09/23/24 11:13 09/23/24 11:14 Sodium Chloride 0.9% 10ml Syr (Rad Only) IV 09/23/24 11:14 10 ml ONCE ONE Administration Sodium Chloride 50 ml 09/23/24 11:13 09/23/24 11:14 0.9 % Sodium Chloride 50 Ml Vial IV 09/23/24 11:14 50 ml ONCE ONE Administration ORDERS Category Date Time Status CT abdomen pelvis w con Stat Cat Scan 09/23/24 10:[address] angio chest PE protocol Stat Cat Scan 09/23/24 10:32 Completed POCUS Point of Care (ER Only) Stat Exams 09/23/24 10:34 Completed BNP [NT Pro Brain Natriuretic Pep.] Stat Lab 09/23/24 10:39 Completed CBC w/Auto Diff [Complete Blood Count Auto Diff] Stat Lab 09/23/24 10:39 Completed CK [Creatine Kinase] Stat Lab 09/23/24 10:39 Completed CMP [Comprehensive Metabolic Panel] Stat Lab 09/23/24 10:39 Completed Lipase Stat Lab 09/23/24 10:39 Completed MG [Magnesium] Stat Lab 09/23/24 10:39 Completed Rapid PCR Covid and Flu A/B Stat Lab 09/23/24 10:43 Completed Trop I [Troponin I] Stat Lab 09/23/24 10:39 Completed Troponin I Q3H Lab 09/23/24 13:45 Ordered Troponin I Q3H Lab 09/23/24 16:45 Ordered UA [Urinalysis and Microscopic] Stat Lab 09/23/24 12:02 Completed Blood Culture Stat Micro 09/23/24 10:37 Received VBG [Venous Blood Gas] Stat RT 09/23/24 10:39 Completed ECG Data Tracing #1: ECG Narrative: Independently interpreted by me rate is 90, rhythm is regular, axis is leftward deviated, no ST elevation in anatomical contiguous leads, QTc 402. Isolated PVC. MDM Narrative Medical Decision Narrative: In summary patient is a 4-year-old male with past medical history described above presents emergency department for global weakness and feeling unwell. Patient is hemodynamically stable and nontoxic-appearing upon arrival, afebrile on 2 L nasal cannula to maintain oxygen saturations greater than 88% with a room air baseline. Differential diagnosis includes chemotherapy side effect, urinary tract infection, metabolic derangement, neutropenia, metastatic disease, pulmonary embolism viral syndrome, among others. Workup we conducted with broad hematologic labs, urinalysis VBG, urinalysis, EKG, CT chest pulmonary embolism protocol CT abdomen pelvis IV contrast. Patient is clear to auscultation and does not have any infectious symptoms of cough so silent pneumonia is a possibility but otherwise I suspect metabolic derangement versus chronic baseline. Heart failure is a possibility but his symptoms are not worse with laying down. Initial workup reviewed by me no significant leukocytosis no transfusable anemia. VBG is compensated, mild hyponatremia, hypomagnesemia which will be repleted, improved CKD, respiratory swab negative. CTA chest tiny pleural effusions no acute PE, sclerotic foci within multiple thoracic vertebrae, no acute findings in the abdomen, stable cholelithiasis. Current working diagnosis is mild diastolic heart failure exacerbation requiring oxygenation and myocardial injury secondary to heart failure. Procedure performed cardiac ultrasound Indication: Shortness of breath Identified cardiac views: Cardiac parasternal long and apical four-chamber Findings: Cardiac activity present gross wall motion normal pericardial effusion absent, gross ejection fraction normal Impression: - From above Images were saved to permanent archive The study was technically adequate CPT: 47988 This study was performed by me, and I personally interpreted all images/videos. Based on my clinical judgement, these images were adequate and did necessitate further imaging.
[2024-09-23 10:49] LABS: Coronavirus 19, PCR Not Detected (NotDetected); Influenza A, PCR Not Detected (NotDetected); Influenza B, PCR Not Detected (NotDetected)
[2024-09-23 10:51] LABS: Lactate Venous 2.0 mmol/L (0.4-2.0); VBG HCO3 30.5 mmol/L (23-30); VBG PCO2 44.3 mmol/L (35-51); VBG PH 7.45 mmol/L (7.31-7.41); VBG PO2 59.5 mmol/L (28-40)
[2024-09-23 10:52] LABS: Hematocrit 32.2 % (42.0-52.0); Hemoglobin 10.8 g/dL (14.1-18.0); Immature Granulocytes % 0.5 %; Mean Corpuscular HGB Conc 33.5 g/dL (31.8-35.4); Mean Corpuscular Hemoglobin 34.5 pg (27.0-31.2); Mean Corpuscular Volume 102.9 fl (80-94); Nucleated Red Blood Cells % 0 %; Platelet Count 190 K/mm3 (142-424); Red Blood Count 3.13 M/mm3 (4.60-6.20); Red Cell Distribution Width-SD 52.1 fL; White Blood Count 7.9 K/mm3 (4.8-10.8)
[2024-09-23 10:57] LABS: Albumin Level 4.0 g/dl (3.5-5.0); Chloride 91 mmol/L (98-107); Potassium 3.7 mmoL/L (3.5-5.1); Sodium 131 mmol/L (136-145)
[2024-09-23 10:59] LABS: Lipase 80 U/L (23-300); Magnesium 1.5 mg/dl (1.6-2.3)
[2024-09-23 11:00] LABS: Alanine Aminotransferase 17 U/L (12-78); Albumin/Globulin Ratio 1.3 (1.1-1.8); Alkaline Phosphatase 108 U/L (38-126); Anion Gap 10.7 mEq/L (5-15); Aspartate Amino Transferase 34 U/L (17-59); Bilirubin,Total 0.9 mg/dl (0.2-1.3); Blood Urea Nitrogen 20 mg/dl (9-20); Calcium 8.7 mg/dl (8.4-10.2); Carbon Dioxide 33 mmol/L (22.0-30.0); Creatinine Clearance Estimated 68 mL/min (50-200); Creatinine,Serum 1.40 mg/dl (0.66-1.25); Estimated Glomerular Filt Rate 48 ml/min (>60); GFR (African American) 58 ML/MIN (>60); Globulin 3.0 g/dL (1.3-3.2); Glucose 169 mg/dl (74-100); Total Protein,Serum 7.0 g/dl (6.3-8.2)
--- NOTE | 2024-09-23 11:07 | PC.NURSE ---
pt to RAD @ this time
[2024-09-23 11:09] LABS: NT Pro Brain Natriuretic Pep. 713 pg/mL (0-450)
[2024-09-23 11:12] LABS: Troponin I 0.04 ng/ml (0.00-0.034)
[2024-09-23] MEDS: SODIUM CHLORIDE 0.9% 10ML SYR (RAD ONLY) 10 ML IV (11:14)
[2024-09-23] MEDS: IOPAMIDOL-370 (76%);100ML BOTTLE 70 ML IV (11:14)
[2024-09-23] MEDS: 0.9 % SODIUM CHLORIDE 50 ML VIAL IV (11:14)
[2024-09-23 11:23] LABS: Creatine Kinase 97 U/L (55-170)
[2024-09-23 12:07] LABS: Microscopic, Urine URINE MICROSCOPIC (MICROSCOPIC)
[2024-09-23 12:14] LABS: Bilirubin,Urine Negative (Negative); Color,Urine YELLOW (Yellow); Glucose,Urine (UA) Negative (Negative); Ketones,Urine TRACE (Negative); Leukocyte Esterase,Urine Negative (Negative); PH,Urine 6.0 (5.0-8.5); Protein,Urine 1+ (Negative); Specific Gravity, Urine <= 1.005 (1.005-1.030); Urobilinogen,Urine 0.2 EU/dl (0.2)
[2024-09-23 12:33] LABS: Hyaline Casts,Urine OCC #/lpf (0)
[2024-09-23] MEDS: FUROSEMIDE 100MG/10ML VIAL 80 MG IV (13:05)
--- NOTE | 2024-09-23 13:07 | PC.NURSE ---
[facility] worker called for bed.
[2024-09-23] MEDS: MAGNESIUM SULFATE IN WATER 2 GM/50 ML PIGGYBACK IV (13:09)
--- NOTE | 2024-09-23 13:11 | EXP.HP ---
History of Present Illness *Admission Date: 09/23/24 *Reason for visit:: Weakness, fatigue *History of present illness: Krish is an 84-year-old male with history of diabetes, prostate cancer, hyperlipidemia. Presents with worsening fatigue and weakness over the past week. Of note completed chemotherapy with abiraterone last . He was also on concurrent prednisone 5 mg daily. After finishing his medication, he has remained feeling quite weak, began to worsen on Tuesday. Denies ez fever, nausea or vomiting. Has had some mild chills. Denies chest pain. Feels short of breath with exertion. Had increased swelling in his legs and upped his diuretic midweek and has had some improvement in his swelling but still has significant swelling in his ankles. Denies chest pain, nausea, vomiting. Has had very poor appetite however. Workup in the ER with findings of mild electrolyte disturbances, sodium low at 131, magnesium 1.5. BNP elevated. O2 sats dropped to mid 80s on room air and was placed on 2 L nasal cannula oxygen. Given his swelling in his legs, concern for diastolic acute on chronic heart failure. Medicine consulted due to new oxygen requirement and fatigue. On arrival to the floor, patient continues to complain of feeling fatigued. Just wants to lay down and rest. Has not had much to eat in the past 3 to 4 days. States has been having increased reflux for which she saw ENT in [place] on Tuesday and was started on famotidine. Symptoms predominantly worsened after completing his chemotherapy and steroids. Saw his oncologist last Tuesday who stated it might take him a few weeks to get his strength back. Patient has family at bedside. Denies ez fever but did have temperature of 99 in the ER. Received 80 of Lasix IV once in the ED. [facility] Disclaimer: The information contained in this section may have been updated after the patient was seen, as this information can be updated by other users. Medical History GERD (gastroesophageal reflux disease) Bruise of toe Hypertension Ingrown nail of great toe of left foot Postoperative dehiscence of skin wound Blister of fifth toe, left Encounter for dialysis Tear of retina History of COVID-19 History of cataract Edema Osteomyelitis of toe of left foot Other specified symptoms and signs involving the circulatory and respiratory systems Cellulitis of left foot Renal disease HTN (hypertension), benign HLD (hyperlipidemia) T2DM (type 2 diabetes mellitus) Coronary artery disease Anxiety Pain around toenail Onychomycosis Surgical History Hx of cataract surgery Hx of colonoscopy History of surgery History of coronary artery stent placement Hx of cardiac cath Family History Other Diabetes Heart attack Social History Smoking Status: Smoker, status unknown tobacco type: cigarettes alcohol intake: never substance use type: denies use current occupational status: retired Travel in the last 8 weeks?: None Have you lived/traveled outside US in past 30 days?: No Contact w/someone who lives/traveled outside US past 30 days?: No Exposure to someone with infectious disease in past 14 days?: No Do you have a fever (greater than 100.4 F or 38 C)?: No Have you tested positive for COVID-19?: No Exposed to someone with COVID-19 in past 14 days?: No Do you have a sore throat?: No Do you have a cough?: No Do you have any weakness?: Yes Are you experiencing any nausea/vomitting?: No Do you have any diarrhea?: No Are you experiencing any unusual bleeding?: No Do you have any muscle aches/pain?: No Do you have any abdominal pain?: No Are you experiencing loss of taste or smell?: No Other Medical History Have you received the Flu Vaccine for this season: No Have you received the Pneumonia Vaccine: Yes Review of Systems Review of Systems Review of systems (narrative): 14 point review of systems performed, pertinent positives and negatives as per HPI Meds Home Medications and Allergies Home Medications ?Medication ?Instructions ?Recorded ?Confirmed ?Type aspirin 81 mg tablet,delayed 81 mg PO DAILY 10/19/18 09/23/24 History release (Adult Low Dose Aspirin) insulin human U-100 NPH-regulr 58 unit SQ BID 08/02/19 09/23/24 History 70-30 mix 100 unit/mL subcutaneous susp (Novolin 70/30 U-100 Insulin) simvastatin 40 mg tablet 40 mg PO HS #90 tabs 04/23/24 09/23/24 Rx calcitriol 0.25 mcg capsule 0.25 mcg PO MOWEFR #36 caps 05/04/24 09/23/24 Rx tamsulosin 0.4 mg capsule 0.4 mg PO HS #90 caps 05/15/24 09/23/24 Rx clopidogrel 75 mg tablet 75 mg PO DAILY #90 tabs 07/06/24 09/23/24 Rx gabapentin 300 mg capsule 300 mg PO TID #270 caps 07/06/24 09/23/24 Rx hydralazine 10 mg tablet 20 mg (2 x 10 mg) PO BID #180 tabs 07/09/24 09/23/24 Rx allopurinol 100 mg tablet 100 mg PO BID #180 tabs 08/06/24 09/23/24 Rx famotidine 20 mg tablet 20 mg PO DAILY #90 tabs 09/12/24 09/23/24 Rx furosemide 20 mg tablet 40 mg (2 x 20 mg) PO DAILY #180 09/12/24 09/23/24 Rx tabs pantoprazole 40 mg tablet,delayed 40 mg PO DAILY 09/23/24 09/23/24 History release New Prescriptions to Start Prescriptions: Allergies Allergy/AdvReac Type Severity Reaction Status Date / Time No Known Allergies Allergy Verified 07/09/24 11:45 Exam Data for Last 24 hours Vital signs and Labs for Last 24 Hours: Temp Pulse Resp BP Pulse Ox O2 Del Method O2 Flow Rate 99.6 F 91 H 17 120/57 L 95 Room Air 2 09/23/24 10:34 09/23/24 13:00 09/23/24 13:00 09/23/24 13:00 09/23/24 13:00 09/23/24 13:00 09/23/24 11:01 Laboratory Results - last 24 hr 09/23/24 10:39: WBC 7.9, RBC 3.13 L, Hgb 10.8 L, Hct 32.2 L, MCV 102.9 H, MCH 34.5 H, MCHC 33.5, RDW 13.9, Plt Count 190, MPV 10.1, Neut % (Auto) 61.1, Lymph % (Auto) 24.5, [place] % (Auto) 13.1 H, Eos % (Auto) 0.5, Baso % (Auto) 0.3, Neut # (Auto) 4.8, Lymph # (Auto) 1.9, [place] # (Auto) 1.0, Eos # (Auto) 0.0, Baso # (Auto) 0.0, VBG pH 7.45 H, VBG pCO2 44.3, VBG pO2 59.5 H, VBG HCO3 30.5 H, VBG Total CO2 31.9 H, VBG O2 Saturation 90.4 H, VBG Base Excess 5.9 H, VBG Lactic Acid 2.0, Sodium 131 L, Potassium 3.7, Chloride 91 L, Carbon Dioxide 33 H, Anion Gap 10.7, BUN 20, Creatinine 1.40 H, Estimated Creat Clear 68, Estimated GFR 48 L, Est GFR ( Amer) 58 L, Glucose 169 H, Calcium 8.7, Magnesium 1.5 L, Total Bilirubin 0.9, AST 34, ALT 17, Alkaline Phosphatase 108, Total Creatine Kinase 97, Troponin I 0.04 H, NT-Pro-B Natriuret Pep 713 H, Total Protein 7.0, Albumin 4.0, Globulin 3.0, Albumin/Globulin Ratio 1.3, Lipase 80 09/23/24 10:43: SARS-CoV-2 (PCR) Not detected, Influenza A Untype (PCR) Not detected, Influenza Type B (PCR) Not detected 09/23/24 12:02: Urine Color Yellow, Urine Appearance Clear, Urine pH 6.0, Ur Specific Energy <= 1.005, Urine Protein 1+ A, Urine Glucose (UA) Negative, Urine Ketones Trace, Urine Blood Negative, Urine Nitrate Negative, Urine Bilirubin Negative, Urine Urobilinogen 0.2, Ur Leukocyte Esterase Negative, Urine RBC None, Urine WBC None, Ur Squamous Epith Cells None, Urine Bacteria None, Hyaline Casts Occ I & O for Last 24 hours: Intake & Output 09/20/24 09/21/24 09/22/24 09/23/24 23:59 23:59 23:59 23:59 Weight 126.099 kg Constitutional Constitutional: mild distress, obese, chronically ill appearing and cooperative *Routine HEENT Exam Head: Present normocephalic Eye: Present EOMI and PERRL ENT: Present mucous membranes moist Comments: Rhinorrhea *Routine Neck Exam Neck: Present supple; Absent lymphadenopathy *Routine Respiratory Exam Respiratory: Present CTA bilaterally *Routine Cardiovascular Exam Cardiovascular: Present RRR *Routine Abdominal Exam Abdominal: Present soft and normoactive bowel sounds; Absent tenderness *Routine Rectal Exam Rectal:: deferred *Routine Genitalia Exam Genitalia:: deferred *Routine Extremities Exam Extremities: Present edema (2+ to mid donis); Absent cyanosis or clubbing *Routine Skin Exam Skin: Present intact and warm; Absent rash *Routine Neurological Exam Neurological: Present alert, oriented X3 and moving all extremities; Absent altered mental status Assessment and Plan *Assessment and plan (1) Acute on chronic heart failure with preserved ejection fraction (HFpEF): Status: Acute Category: Medical Code(s): I50.33 - Acute on chronic diastolic (congestive) heart failure (2) Immunosuppressed status: Status: Resolved Category: Medical Code(s): D84.9 - Immunodeficiency, unspecified (3) HLD (hyperlipidemia): Status: Chronic Category: Medical Code(s): E78.5 - Hyperlipidemia, unspecified (4) Acute hyponatremia: Status: Acute Category: Medical Code(s): E87.1 - Hypo-osmolality and hyponatremia (5) Hypomagnesemia: Status: Acute Category: Medical Code(s): E83.42 - Hypomagnesemia (6) Controlled type 2 diabetes mellitus with circulatory disorder, with long-term current use of insulin: Status: Chronic Category: Medical Code(s): E11.59 - Type 2 diabetes mellitus with other circulatory complications; Z79.4 - intermediate manager (current) use of insulin (7) Prostate cancer: Status: Chronic Category: Medical Code(s): C61 - Malignant neoplasm of prostate (8) Obesity (BMI 30-39.9): Status: Chronic Category: Medical Code(s): E66.9 - Obesity, unspecified Plan 84-year-old male who recently completed chemotherapy (antiandrogen therapy) for metastatic prostate cancer. Presents with worsening fatigue. On presentation to the ER, has elevated BNP and concern for CHF exacerbation versus chemotherapy side effect. Due to new oxygen requirement, had extensive discussion with the ER physician about admission. Requesting admission for further treatment of his CHF and new oxygen requirement. I decided to admit for further management. By the time he arrived to the floor, O2 sats at 90 on room air. Complaining of significant weakness. Also complaining of runny nose. After further discussion, was taking at least 5 mg of prednisone daily for over a month until a week ago. Problems addressed as follows: # Acute on chronic HFpEF ? Received 80 of Lasix IV once in the ED. BNP elevated at 703. Mild elevation in troponin at 0.04. Will monitor serial levels for continued elevation. EKG does not show STEMI per my review. - 2+ pitting edema in his ankles. Echo obtained November of last year shows elevated RVSP of 40-45. Preserved EF. - Oxygen as needed for goal sats greater 90%. Currently on room air - Will consider cardiology eval in the morning. Holding on repeat echo as his last echo was less than a year ago - Repeat CBC, CMP, magnesium ordered for the morning; replacing electrolytes per protocol with magnesium at 1.5. Monitor for improvement in sodium with diuresis. - Kidney function normal with BUN 20, creatinine 1.4. - Low concern for infection given white count of 7.9. Chronic anemia with hemoglobin 10.8. Does have runny nose however and given his fatigue, will evaluate for viral respiratory illness. Comprehensive panel pending - CTA of the chest obtained, per my review has no focal consolidation or significant PEs. Does show some emphysematous changes #Prostate cancer, metastatic Completed antiandrogen therapy 1 week ago along with steroids. Concerned that weakness may be related to adrenal insufficiency. Will administer 100 mg IV once of hydrocortisone and monitor for improvement in fatigue and energy level. Defer further treatment for cancer to oncologist at [facility] #CAD Continue aspirin 81 mg daily, Plavix 75 mg daily #T2DM -A1c ordered and pending. Last level in our system was several years ago and elevated at 9.6 - Continue Humalog 75/25 as formulary conversion for home insulin at 45 units twice daily. Continue sliding scale insulin with fingersticks ACHS Stable chronic conditions: Continue allopurinol 100 mg twice daily for gout Continue pantoprazole 40 mg nightly for GERD Continue tamsulosin 0.4 mg nightly for BPH Full code Heparin 3 times daily Cardiac/diabetic diet
--- NOTE | 2024-09-23 13:21 | HMH.PHAINT1 ---
Pharmacy Intervention Comments: MEDICATION RECONCILIATION COMPLETED ON PATIENT USING EXTERNAL FILL HISTORY FROM PHARMACY. -VIRGIL ACOSTA, SHERRYD
--- NOTE | 2024-09-23 13:28 | PC.NURSE ---
Patient report called to MARIA D Vargas.
[2024-09-23 14:07] LABS: Troponin I 0.02 ng/ml (0.00-0.034)
[2024-09-23 14:47] LABS: Adenovirus,PCR Not Detected (NotDetected); Chlamydophila Pneumoniae, PCR Not Detected (NotDetected); Coronavirus 19, PCR Not Detected (NotDetected); Coronovirus HKU1,PCR Not Detected (NotDetected); Influenza A, PCR Not Detected (NotDetected); Influenza AH1, 2009 Not Detected (NotDetected); Influenza AH1, PCR Not Detected (NotDetected); Influenza AH3,PCR Not Detected (NotDetected); Influenza B, PCR Not Detected (NotDetected); Mycoplasma Pneumoniae, PCR Not Detected (NotDetected); Parainfluenza 1, PCR Not Detected (NotDetected); Parainfluenza 2, PCR Not Detected (NotDetected); Parainfluenza 3, PCR Not Detected (NotDetected); Parainfluenza 4, PCR Not Detected (NotDetected)
[2024-09-23] MEDS: HYDROCORTISONE SOD SUCCINATE 100MG VIAL 100 MG IV (14:53)
--- NOTE | 2024-09-23 15:37 | PC.NURSE ---
Pt is a new admit this shift for chf exacerbation. He is alert and oriented x4. He is currently on RA with O2 sats measuring 90% or >. He's been sinus tach on tele. He is a standby assist. There is scattered bruising to his trunk, he is unsure as to the cause. Family has been at bedside. He is currently resting in bed w/his eyes closed. Bed is locked and in the lowest position. Call light is within reach.
[2024-09-23 15:39] LABS: Hemoglobin A1C 6.7 % (4.0-6.0)
[2024-09-23 15:41] LABS: Thyroid Stimulating Hormone 2.71 uIU/mL (0.465-4.68)
--- NOTE | 2024-09-23 15:50 | PC.NURSE ---
Pt was 84% on RA, placed on 2L NC.
--- NOTE | 2024-09-23 16:06 | PC.NURSE ---
Pt is a new admit this shift for chf exacerbation. He is alert and oriented x4. He is currently on RA with O2 sats measuring 90% or >. He's been afib on tele. He is a standby assist. There is scattered bruising to his trunk, he is unsure as to the cause. Family has been at bedside. He is currently resting in bed w/his eyes closed. Bed is locked and in the lowest position. Call light is within reach.
[2024-09-23] MEDS: humaLOG 100 UNITS/ML 10ML VIAL (SSI) SUBCUT ×2 (16:19→20:56)
[2024-09-23 16:20] LABS: POC Glucose,Bedside 173 (70-110)
[2024-09-23 17:49] LABS: Troponin I 0.05 ng/ml (0.00-0.034)
[2024-09-23] MEDS: ALLOPURINOL 100MG TABLET 100 MG PO (20:37)
[2024-09-23] MEDS: TAMSULOSIN 0.4MG CAPSULE 0.4 MG PO (20:37)
[2024-09-23] MEDS: HEPARIN SODIUM 5,000 UNIT/ML VIAL 5000 UNIT SUBCUT (20:37)
[2024-09-23] MEDS: PANTOPRAZOLE 40MG TABLET 40 MG PO (20:37)
[2024-09-23] MEDS: humaLOG MIX 75/25 3ML FLEXPEN 45 UNIT SUBCUT (20:56)
[2024-09-24] VITALS: PULSE 60
[2024-09-24 04:00] VITALS: BP 116/50; PULSE 60; PULSE 67; RESP 17; TEMP 36.6; O2SAT 98; BMI 36.8
--- NOTE | 2024-09-24 05:55 | PC.NURSE ---
Pt. is alert and orientated x 4. Pt. is on 2 liters of oxygen per N/C to keep O2 sats >90. Pt. was given Lasix yesterday and has been diuressing well. Pt. has BLE edema (+1) non pitting. Pt. states he thinks the swelling is better today. Pt. denies shortness of breath. States that he feels better,. ACHS blood sugars done. Pt. has a Dexcom and blood sugar reading are taken from the Dexcom. Pt. slept off and oin throughout the night. No c/o's or needs at this time. Pt up to bathroom with the walker. does well getting himself in and out of the bed. and to the bathroom with standby assist. Personal items and call selby in reach. Bed is in low position and locked. Safety measures in place.
[2024-09-24 07:04] LABS: Hematocrit 28.6 % (42.0-52.0); Immature Granulocytes % 0.5 %; Mean Corpuscular HGB Conc 32.5 g/dL (31.8-35.4); Mean Corpuscular Hemoglobin 33.1 pg (27.0-31.2); Mean Corpuscular Volume 101.8 fl (80-94); Nucleated Red Blood Cells % 0 %; Platelet Count 188 K/mm3 (142-424); Red Blood Count 2.81 M/mm3 (4.60-6.20); Red Cell Distribution Width-SD 50.9 fL; White Blood Count 5.8 K/mm3 (4.8-10.8)
[2024-09-24 07:08] LABS: Alanine Aminotransferase 12 U/L (12-78); Albumin Level 3.4 g/dl (3.5-5.0); Albumin/Globulin Ratio 1.5 (1.1-1.8); Alkaline Phosphatase 100 U/L (38-126); Anion Gap 7.3 mEq/L (5-15); Aspartate Amino Transferase 26 U/L (17-59); Bilirubin,Total 0.4 mg/dl (0.2-1.3); Blood Urea Nitrogen 24 mg/dl (9-20); Calcium 8.5 mg/dl (8.4-10.2); Carbon Dioxide 37 mmol/L (22.0-30.0); Chloride 95 mmol/L (98-107); Creatinine Clearance Estimated 51 mL/min (50-200); Creatinine,Serum 1.80 mg/dl (0.66-1.25); Estimated Glomerular Filt Rate 36 ml/min (>60); GFR (African American) 44 ML/MIN (>60); Globulin 2.2 g/dL (1.3-3.2); Glucose 142 mg/dl (74-100); Magnesium 1.9 mg/dl (1.6-2.3); Potassium 3.3 mmoL/L (3.5-5.1); Sodium 136 mmol/L (136-145); Total Protein,Serum 5.6 g/dl (6.3-8.2)
[2024-09-24 07:42] LABS: Hemoglobin 9.3 g/dL (14.1-18.0)
[2024-09-24 08:00] VITALS: BP 136/63; PULSE 75; PULSE 80; RESP 16; TEMP 36.4; O2SAT 95
--- NOTE | 2024-09-24 08:32 | CA_ITS ---
APPROVED REPORT EXAM: Comprehensive 2D, Doppler, and color-flow Echocardiogram Director Data Processing: Laura Barba CRT Ht: 6 ft 0 in Wt: 272lbs BSA: 2.43 BP: 140/70 mmHg Indications: Congestive Heart Failure, prostate CA on chemo , aortic stenosis 2D Dimensions LA Volume 59.90 mL LA Volume Index 24.65 mL/m2 (M/F) 16-34 M-Mode Dimensions RVDd 3.48 cm (0.9-2.6) LA Diam 4.73 cm (1.9-4.0) LVDd 4.59 cm (3.5-5.7) LVDs 2.23 cm (3.5-5.7) IVSd 1.29 cm (0.6-1.1) PWd 1.11 cm (0.6-1.1) EF (Teich) 82.60% FS 51.40% EDV (Teich) 96.80 mL TAPSE 2.12 (<1.7) ESV (Teich) 16.80 mL LV Diastology E Decel Time 130 (160-240 msec) E/A Ratio 1.37 MED A' 10.70 cm/s LAT A' 11.80 cm/s Aortic Valve RAJESH Index 0.92 cm2/m2 AoV Peak Norberto. 195.0 (50-130 cm/s) AO Peak GR. 15.20 mmHg AO Mean GR. 9.00 (<5 mmHg) AO VTI 41.3 (18-25 cm) RAJESH (VTI) 2.29 (2.5-4.5 cm2) Mitral Valve MV A Velocity 73.0 (40-130 cm/s) E/A Ratio 1.37 Pulmonary Valve PV Peak Velocity 84.0 (50-150 cm/s) Tricuspid Valve TR P. Velocity 262.00 cm/s RAP Estimate 10.00 mmHg RVSP 37.50 mmHg Left Ventricle The left ventricle is normal size. The left ventricular systolic function is normal. The left ventricular ejection fraction is within the normal range. There is increased LV wall thickness. There is normal LV segmental wall motion. Diastolic function is indeterminate. LVEF is 55%. Right Ventricle Right ventricle is mildly dilated. Right ventricle is mildly hypokinetic. Atria Left atrium is mildly dilated. Right atrium is mildly dilated. There is no Doppler evidence of interatrial shunt. Aortic Valve The aortic valve is mildly thickened. Mild aortic stenosis. RAJESH by 2D planimetry is 1.6 cm2. Peak velocity 2.0 m/s. Mean AV gradient 10 mmHg. Max AV gradient 18 mmHg. Trace aortic regurgitation. Mitral Valve The mitral valve is normal in structure. No evidence of mitral valve stenosis. Mild mitral regurgitation. Tricuspid Valve Tricuspid valve is grossly normal in structure and function. Trace tricuspid regurgitation. There is insufficient TR jet to estimate RVSP. Pulmonic Valve The pulmonary valve is normal in structure. Trace pulmonic regurgitation. Great Vessels The aortic root is normal in size. IVC is normal in size and collapses >50% with inspiration. Pericardium There is no pericardial effusion. Other Information Study Quality: Fair Conclusion Normal LV systolic function. Mild RV dilation with mild reduction in RV function. Mild biatrial dilation. Mild (RAJESH by 2D planimetry is 1.6 cm2. Peak velocity 2.0 m/s. Mean AV gradient 10 mmHg. Max AV gradient 18 mmHg). Mild MR. Electronically signed by : Janett Johns MD 09/24/2024 13:38:49
--- NOTE | 2024-09-24 10:05 | EXP.DC.SUM ---
General Admission date:: 09/23/24 Discharge date: 09/24/24 HPI HPI HPI: Krish is an 84-year-old male with history of diabetes, prostate cancer, hyperlipidemia. Presents with worsening fatigue and weakness over the past week. Of note completed chemotherapy with abiraterone last . He was also on concurrent prednisone 5 mg daily. After finishing his medication, he has remained feeling quite weak, began to worsen on Tuesday. Denies ez fever, nausea or vomiting. Has had some mild chills. Denies chest pain. Feels short of breath with exertion. Had increased swelling in his legs and upped his diuretic midweek and has had some improvement in his swelling but still has significant swelling in his ankles. Denies chest pain, nausea, vomiting. Has had very poor appetite however. Workup in the ER with findings of mild electrolyte disturbances, sodium low at 131, magnesium 1.5. BNP elevated. O2 sats dropped to mid 80s on room air and was placed on 2 L nasal cannula oxygen. Given his swelling in his legs, concern for diastolic acute on chronic heart failure. Medicine consulted due to new oxygen requirement and fatigue. On arrival to the floor, patient continues to complain of feeling fatigued. Just wants to lay down and rest. Has not had much to eat in the past 3 to 4 days. States has been having increased reflux for which she saw ENT in [place] on Tuesday and was started on famotidine. Symptoms predominantly worsened after completing his chemotherapy and steroids. Saw his oncologist last Tuesday who stated it might take him a few weeks to get his strength back. Patient has family at bedside. Denies ez fever but did have temperature of 99 in the ER. Received 80 of Lasix IV once in the ED. Hospital Course Hospital Course Hospital Course: 84-year-old male who recently completed chemotherapy (antiandrogen therapy) for metastatic prostate cancer. Presents with worsening fatigue. On presentation to the ER, has elevated BNP and concern for CHF exacerbation versus chemotherapy side effect. Due to new oxygen requirement, had extensive discussion with the ER physician about admission. Requesting admission for further treatment of his CHF and new oxygen requirement. I decided to admit for further management. By the time he arrived to the floor, O2 sats at 90 on room air. Complaining of significant weakness. Also complaining of runny nose. After further discussion, was taking at least 5 mg of prednisone daily for over a month until a week ago. She had improvement overnight with improved diuresis. Responded to 1 dose of steroids. Patient feeling significantly better by morning. Tolerating p.o. intake. Stable on room air. Discharged home with home health for PT and OT. Problems addressed as follows: # Acute on chronic HFpEF # CAD # Hyperlipidemia ? Received 80 of Lasix IV once in the ED. BNP elevated at 703. Mild elevation in troponin at 0.04. Levels remained stable overnight. EKG showed no STEMI. Echo obtained in the morning showing normal LV systolic function and mild RV dilation with mild reduction in RV function. Cardiology evaluated. Recommend adjusting Lasix regimen to 80 mg p.o. twice daily. Remained stable on room air. No indication for oxygen at discharge. Kidney function remained within patient's baseline range with BUN 24, creatinine 1.8 on day of discharge. Patient usually follows with Dr. Jackson at . Recommend follow-up in [address] Jackson or cardiology at [facility]. Plan to continue aspirin, Plavix, Lasix, simvastatin for history of CAD and CHF #Prostate cancer, metastatic Completed antiandrogen therapy 1 week ago along with steroids. Concerned that weakness may be related to adrenal insufficiency. Administered 1 dose of 100 mg IV once of hydrocortisone. Energy perked up somewhat. Avoid taper of steroids at this time. Defer further treatment for cancer to oncologist at [place] #CAD: Continue aspirin 81 mg daily, Plavix 75 mg daily #T2DM: A1c well-controlled at 6.7. Recommend continuing his 70/30 combo insulin but decrease to 55 units twice daily. - Continue Humalog 75/25 as formulary conversion for home insulin at 45 units twice daily. Continue sliding scale insulin with fingersticks ACHS Stable chronic conditions: Continue allopurinol 100 mg twice daily for gout Continue pantoprazole 40 mg nightly for GERD Continue tamsulosin 0.4 mg nightly for BPH Total time spent on discharge 32 minutes in counseling, documentation, chart review, and direct care with patient. Exam Data for Last 24 hours Vital signs and Labs for Last 24 Hours: Temp Pulse Resp BP Pulse Ox O2 Del Method O2 Flow Rate 97.5 F L 75 16 136/63 95 Nasal Cannula 2 09/24/24 08:00 09/24/24 08:00 09/24/24 08:00 09/24/24 08:00 09/24/24 08:00 09/24/24 09:00 09/24/24 09:00 Laboratory Results - last 24 hr 09/23/24 10:39: WBC 7.9, RBC 3.13 L, Hgb 10.8 L, Hct 32.2 L, MCV 102.9 H, MCH 34.5 H, MCHC 33.5, RDW 13.9, Plt Count 190, MPV 10.1, Neut % (Auto) 61.1, Lymph % (Auto) 24.5, [place] % (Auto) 13.1 H, Eos % (Auto) 0.5, Baso % (Auto) 0.3, Neut # (Auto) 4.8, Lymph # (Auto) 1.9, [place] # (Auto) 1.0, Eos # (Auto) 0.0, Baso # (Auto) 0.0, VBG pH 7.45 H, VBG pCO2 44.3, VBG pO2 59.5 H, VBG HCO3 30.5 H, VBG Total CO2 31.9 H, VBG O2 Saturation 90.4 H, VBG Base Excess 5.9 H, VBG Lactic Acid 2.0, Sodium 131 L, Potassium 3.7, Chloride 91 L, Carbon Dioxide 33 H, Anion Gap 10.7, BUN 20, Creatinine 1.40 H, Estimated Creat Clear 68, Estimated GFR 48 L, Est GFR ( Amer) 58 L, Glucose 169 H, Calcium 8.7, Magnesium 1.5 L, Total Bilirubin 0.9, AST 34, ALT 17, Alkaline Phosphatase 108, Total Creatine Kinase 97, Troponin I 0.04 H, NT-Pro-B Natriuret Pep 713 H, Total Protein 7.0, Albumin 4.0, Globulin 3.0, Albumin/Globulin Ratio 1.3, Lipase 80 09/23/24 10:40: Chlamy pneumoniae PCR Not detected, Adenovirus (PCR) Not detected, B. pertussis DNA (PCR) Not detected, Coronavirus OC43 (PCR) Not detected, Coronavirus HKU1 (PCR) Not detected, Coronavirus 229E (PCR) Not detected, SARS-CoV-2 (PCR) Not detected, Coronavirus NL63 (PCR) Not detected, Human Metapneumovir PCR Not detected, Influenza A (H1) PCR Not detected, Influ A (H1N1/09) PCR Not detected, Influenza A (H3) PCR Not detected, Influenza Type A (PCR) Not detected, Influenza Type B (PCR) Not detected, M. pneumoniae (PCR) Not detected, Parainfluenza 1 (PCR) Not detected, Parainfluenza 2 (PCR) Not detected, Parainfluenza 3 (PCR) Not detected, Parainfluenza 4 (PCR) Not detected, RSV (PCR) Not detected, Entero/Rhino (PCR) Not detected 09/23/24 10:43: SARS-CoV-2 (PCR) Not detected, Influenza A Untype (PCR) Not detected, Influenza Type B (PCR) Not detected 09/23/24 12:02: Urine Color Yellow, Urine Appearance Clear, Urine pH 6.0, Ur Specific [place] <= 1.005, Urine Protein 1+ A, Urine Glucose (UA) Negative, Urine Ketones Trace, Urine Blood Negative, Urine Nitrate Negative, Urine Bilirubin Negative, Urine Urobilinogen 0.2, Ur Leukocyte Esterase Negative, Urine RBC None, Urine WBC None, Ur Squamous Epith Cells None, Urine Bacteria None, Hyaline Casts Occ 09/23/24 13:45: Troponin I 0.02 09/23/24 14:35: Hemoglobin A1c 6.7 H, TSH 2.71 09/23/24 16:13: POC Glucose 173 H 09/23/24 17:15: Troponin I 0.05 H 09/24/24 05:38: WBC 5.8 D, RBC 2.81 L, Hgb 9.3 L D, Hct 28.6 L, MCV 101.8 H, MCH 33.1 H, MCHC 32.5, RDW 13.6, Plt Count 188, MPV 10.2, Neut % (Auto) 65.5, Lymph % (Auto) 20.6, [place] % (Auto) 13.0 H, Eos % (Auto) 0.2, Baso % (Auto) 0.2, Neut # (Auto) 3.8, Lymph # (Auto) 1.2, [place] # (Auto) 0.8, Eos # (Auto) 0.0, Baso # (Auto) 0.0, Sodium 136, Potassium 3.3 L, Chloride 95 L, Carbon Dioxide 37 H, Anion Gap 7.3, BUN 24 H, Creatinine 1.80 H D, Estimated Creat Clear 51, Estimated GFR 36 L, Est GFR ( Amer) 44 L D, Glucose 142 H, Calcium 8.5, Magnesium 1.9 D, Total Bilirubin 0.4, AST 26, ALT 12 D, Alkaline Phosphatase 100, Total Protein 5.6 L, Albumin 3.4 L D, Globulin 2.2, Albumin/Globulin Ratio 1.5 I & O for Last 24 hours: Intake & Output 09/21/24 09/22/24 09/23/24 09/24/24 23:59 23:59 23:59 23:59 Intake Total 340 / 630 570 / 570 Output Total 850 / 850 0 / 0 Balance -510 / -220 570 / 570 Weight 124.993 kg 123.422 kg Constitutional Constitutional: no acute distress, obese, chronically ill appearing and cooperative *Routine HEENT Exam Head: Present normocephalic Eye: Present EOMI and PERRL ENT: Present mucous membranes moist *Routine Neck Exam Neck: Present supple; Absent lymphadenopathy *Routine Respiratory Exam Respiratory: Present CTA bilaterally; Absent rhonchi or wheezes *Routine Cardiovascular Exam Cardiovascular: Present RRR *Routine Abdominal Exam Abdominal: Present soft and normoactive bowel sounds; Absent tenderness *Routine Rectal Exam Patient deferred: visual exam *Routine Exam Patient deferred: penile exam *Routine Extremities Exam Extremities: Present edema; Absent cyanosis or clubbing Comments: 2+ to mid donis *Routine Skin Exam Skin: Present intact and warm; Absent rash *Routine Neurological Exam Neurological: Present alert, oriented X3 and moving all extremities; Absent altered mental status Results Data Completed and Pending Labs on day of discharge: Labs from last 24 hours 09/24/24 09/23/24 09/23/24 05:38 17:15 16:13 WBC 5.8 D RBC 2.81 L Hgb 9.3 L D Hct 28.6 L MCV 101.8 H MCH 33.1 H MCHC 32.5 RDW 13.6 Plt Count 188 MPV 10.2 Neut % (Auto) 65.5 Lymph % (Auto) 20.6 [place] % (Auto) 13.0 H Eos % (Auto) 0.2 Baso % (Auto) 0.2 Neut # (Auto) 3.8 Lymph # (Auto) 1.2 [place] # (Auto) 0.8 Eos # (Auto) 0.0 Baso # (Auto) 0.0 VBG pH VBG pCO2 VBG pO2 VBG HCO3 VBG Total CO2 VBG O2 Saturation VBG Base Excess VBG Lactic Acid Sodium 136 Potassium 3.3 L Chloride 95 L Carbon Dioxide 37 H Anion Gap 7.3 BUN 24 H Creatinine 1.80 H D Estimated Creat Clear 51 Estimated GFR 36 L Est GFR ( Amer) 44 L D Glucose 142 H POC Glucose 173 H Hemoglobin A1c Calcium 8.5 Magnesium 1.9 D Total Bilirubin 0.4 AST 26 ALT 12 D Alkaline Phosphatase 100 Total Creatine Kinase Troponin I 0.05 H NT-Pro-B Natriuret Pep Total Protein 5.6 L Albumin 3.4 L D Globulin 2.2 Albumin/Globulin Ratio 1.5 Lipase TSH Urine Color Urine Appearance Urine pH Ur Specific [place] Urine Protein Urine Glucose (UA) Urine Ketones Urine Blood Urine Nitrate Urine Bilirubin Urine Urobilinogen Ur Leukocyte Esterase Urine RBC Urine WBC Ur Squamous Epith Cells Urine Bacteria Hyaline Casts Chlamy pneumoniae PCR Adenovirus (PCR) B. pertussis DNA (PCR) Coronavirus OC43 (PCR) Coronavirus HKU1 (PCR) Coronavirus 229E (PCR) SARS-CoV-2 (PCR) Coronavirus NL63 (PCR) Human Metapneumovir PCR Influenza A (H1) PCR Influ A (H1N1/09) PCR Influenza A (H3) PCR Influenza Type A (PCR) Influenza A Untype (PCR) Influenza Type B (PCR) M. pneumoniae (PCR) Parainfluenza 1 (PCR) Parainfluenza 2 (PCR) Parainfluenza 3 (PCR) Parainfluenza 4 (PCR) RSV (PCR) Entero/Rhino (PCR) 09/23/24 09/23/24 09/23/24 14:35 13:45 12:02 WBC RBC Hgb Hct MCV MCH MCHC RDW Plt Count MPV Neut % (Auto) Lymph % (Auto) [place] % (Auto) Eos % (Auto) Baso % (Auto) Neut # (Auto) Lymph # (Auto) [place] # (Auto) Eos # (Auto) Baso # (Auto) VBG pH VBG pCO2 VBG pO2 VBG HCO3 VBG Total CO2 VBG O2 Saturation VBG Base Excess VBG Lactic Acid Sodium Potassium Chloride Carbon Dioxide Anion Gap BUN Creatinine Estimated Creat Clear Estimated GFR Est GFR ( Amer) Glucose POC Glucose Hemoglobin A1c 6.7 H Calcium Magnesium Total Bilirubin AST ALT Alkaline Phosphatase Total Creatine Kinase Troponin I 0.02 NT-Pro-B Natriuret Pep Total Protein Albumin Globulin Albumin/Globulin Ratio Lipase TSH 2.71 Urine Color Yellow Urine Appearance Clear Urine pH 6.0 Ur Specific [place] <= 1.005 Urine Protein 1+ A Urine Glucose (UA) Negative Urine Ketones Trace Urine Blood Negative Urine Nitrate Negative Urine Bilirubin Negative Urine Urobilinogen 0.2 Ur Leukocyte Esterase Negative Urine RBC None Urine WBC None Ur Squamous Epith Cells None Urine Bacteria None Hyaline Casts Occ Chlamy pneumoniae PCR Adenovirus (PCR) B. pertussis DNA (PCR) Coronavirus OC43 (PCR) Coronavirus HKU1 (PCR) Coronavirus 229E (PCR) SARS-CoV-2 (PCR) Coronavirus NL63 (PCR) Human Metapneumovir PCR Influenza A (H1) PCR Influ A (H1N1/09) PCR Influenza A (H3) PCR Influenza Type A (PCR) Influenza A Untype (PCR) Influenza Type B (PCR) M. pneumoniae (PCR) Parainfluenza 1 (PCR) Parainfluenza 2 (PCR) Parainfluenza 3 (PCR) Parainfluenza 4 (PCR) RSV (PCR) Entero/Rhino (PCR) 09/23/24 09/23/24 09/23/24 10:43 10:40 10:39 WBC 7.9 RBC 3.13 L Hgb 10.8 L Hct 32.2 L MCV 102.9 H MCH 34.5 H MCHC 33.5 RDW 13.9 Plt Count 190 MPV 10.1 Neut % (Auto) 61.1 Lymph % (Auto) 24.5 [place] % (Auto) 13.1 H Eos % (Auto) 0.5 Baso % (Auto) 0.3 Neut # (Auto) 4.8 Lymph # (Auto) 1.9 [place] # (Auto) 1.0 Eos # (Auto) 0.0 Baso # (Auto) 0.0 VBG pH 7.45 H VBG pCO2 44.3 VBG pO2 59.5 H VBG HCO3 30.5 H VBG Total CO2 31.9 H VBG O2 Saturation 90.4 H VBG Base Excess 5.9 H VBG Lactic Acid 2.0 Sodium 131 L Potassium 3.7 Chloride 91 L Carbon Dioxide 33 H Anion Gap 10.7 BUN 20 Creatinine 1.40 H Estimated Creat Clear 68 Estimated GFR 48 L Est GFR ( Amer) 58 L Glucose 169 H POC Glucose Hemoglobin A1c Calcium 8.7 Magnesium 1.5 L Total Bilirubin 0.9 AST 34 ALT 17 Alkaline Phosphatase 108 Total Creatine Kinase 97 Troponin I 0.04 H NT-Pro-B Natriuret Pep 713 H Total Protein 7.0 Albumin 4.0 Globulin 3.0 Albumin/Globulin Ratio 1.3 Lipase 80 TSH Urine Color Urine Appearance Urine pH Ur Specific [place] Urine Protein Urine Glucose (UA) Urine Ketones Urine Blood Urine Nitrate Urine Bilirubin Urine Urobilinogen Ur Leukocyte Esterase Urine RBC Urine WBC Ur Squamous Epith Cells Urine Bacteria Hyaline Casts Chlamy pneumoniae PCR Not detected Adenovirus (PCR) Not detected B. pertussis DNA (PCR) Not detected Coronavirus OC43 (PCR) Not detected Coronavirus HKU1 (PCR) Not detected Coronavirus 229E (PCR) Not detected SARS-CoV-2 (PCR) Not detected Not detected Coronavirus NL63 (PCR) Not detected Human Metapneumovir PCR Not detected Influenza A (H1) PCR Not detected Influ A (H1N1/09) PCR Not detected Influenza A (H3) PCR Not detected Influenza Type A (PCR) Not detected Influenza A Untype (PCR) Not detected Influenza Type B (PCR) Not detected Not detected M. pneumoniae (PCR) Not detected Parainfluenza 1 (PCR) Not detected Parainfluenza 2 (PCR) Not detected Parainfluenza 3 (PCR) Not detected Parainfluenza 4 (PCR) Not detected RSV (PCR) Not detected Entero/Rhino (PCR) Not detected DS: Diagnosis Discharge Diagnosis (1) Acute on chronic heart failure with preserved ejection fraction (HFpEF): Status: Acute Code(s): I50.33 - Acute on chronic diastolic (congestive) heart failure (2) Immunosuppressed status: Status: Resolved Code(s): D84.9 - Immunodeficiency, unspecified (3) HLD (hyperlipidemia): Status: Chronic Code(s): E78.5 - Hyperlipidemia, unspecified (4) Acute hyponatremia: Status: Acute Code(s): E87.1 - Hypo-osmolality and hyponatremia (5) Hypomagnesemia: Status: Acute Code(s): E83.42 - Hypomagnesemia (6) Controlled type 2 diabetes mellitus with circulatory disorder, with long-term current use of insulin: Status: Chronic Code(s): E11.59 - Type 2 diabetes mellitus with other circulatory complications; Z79.4 - FPC (current) use of insulin (7) Prostate cancer: Status: Chronic Code(s): C61 - Malignant neoplasm of prostate (8) Obesity (BMI 30-39.9): Status: Chronic Code(s): E66.9 - Obesity, unspecified Meds Home Medications and Allergies Home Medications ?Medication ?Instructions ?Recorded ?Confirmed ?Type aspirin 81 mg tablet,delayed 81 mg PO DAILY 10/19/18 09/23/24 History release (Adult Low Dose Aspirin) simvastatin 40 mg tablet 40 mg PO HS #90 tabs 04/23/24 09/23/24 Rx calcitriol 0.25 mcg capsule 0.25 mcg PO MOWEFR #36 caps 05/04/24 09/23/24 Rx tamsulosin 0.4 mg capsule 0.4 mg PO HS #90 caps 05/15/24 09/23/24 Rx clopidogrel 75 mg tablet 75 mg PO DAILY #90 tabs 07/06/24 09/23/24 Rx gabapentin 300 mg capsule 300 mg PO TID #270 caps 07/06/24 09/23/24 Rx hydralazine 10 mg tablet 20 mg (2 x 10 mg) PO BID #180 tabs 07/09/24 09/23/24 Rx allopurinol 100 mg tablet 100 mg PO BID #180 tabs 08/06/24 09/23/24 Rx famotidine 20 mg tablet 20 mg PO DAILY #90 tabs 09/12/24 09/23/24 Rx pantoprazole 40 mg tablet,delayed 40 mg PO DAILY 09/23/24 09/23/24 History release furosemide 40 mg tablet (Lasix) 80 mg (2 x 40 mg) PO BIDL 30 days 09/24/24 Rx #120 tabs insulin human U-100 NPH-regulr 55 unit (0.55 mL) SQ BID 30 days 09/24/24 09/23/24 Rx 70-30 mix 100 unit/mL subcutaneous #0 mL susp (Novolin 70/30 U-100 Insulin) New Prescriptions to Start Prescriptions: furosemide [Lasix] Lloyd Guthrie Allergies Allergy/AdvReac Type Severity Reaction Status Date / Time No Known Allergies Allergy Verified 07/09/24 11:45 Discharge Plan Disposition Patient Disposition: Home Health Service Condition: Fair Discharge Order Discharge Orders: Discharge Order (Routine); Ordered 09/24/24 Ordered By: Lloyd Guthrie Follow up Plan Follow up with: Rupa Nj APRN [Nurse Practitioner, Cardiology] - 10/10/24 10:45 am Christopher Yadav MD [Primary Care Provider, Medical] - 10/02/24 10:30 am Prescriptions/Medication Reconciliation: Continued aspirin [Adult Low Dose Aspirin] 81 mg tablet,delayed release (DR/EC) 81 mg PO DAILY hydralazine 10 mg tablet 20 mg PO BID Qty: 180 1RF simvastatin 40 mg tablet 40 mg PO HS Qty: 90 1RF calcitriol 0.25 mcg capsule 0.25 mcg PO MOWEFR Qty: 36 1RF tamsulosin 0.4 mg capsule 0.4 mg PO HS Qty: 90 1RF clopidogrel 75 mg tablet 75 mg PO DAILY Qty: 90 1RF gabapentin 300 mg capsule 300 mg PO TID Qty: 270 1RF allopurinol 100 mg tablet 100 mg PO BID Qty: 180 1RF famotidine 20 mg tablet 20 mg PO DAILY Qty: 90 1RF pantoprazole 40 mg tablet,delayed release (DR/EC) 40 mg PO DAILY Changed furosemide [Lasix] 40 mg tablet 80 mg PO BIDL 30 Days Qty: 120 0RF Novolin 70/30 U-100 Insulin 100 unit/mL (70-30) suspension 55 unit SQ BID 30 Days Qty: 0 0RF Patient Comments: INJECT 58 UNITS UNDER THE SKIN IN THE MORNING WITH BREAKFAST THEN 52 UNITS WITH SUPPER Problem Reconciliation Problems Reviewed?: Yes Patient Discharge Instructions ACTIVITY: Continue current activity DIET: continue same diet Patient Instructions: DI for Heart Failure, Stop Light Heart Failure Print Language: Qatari Providers Primary Care Provider: Christopher Yadav Admit Provider: Lloyd Guthrie Attending Provider: Lloyd Guthrie
[2024-09-24] MEDS: ASPIRIN EC 81MG TABLET 81 MG PO (10:14)
[2024-09-24] MEDS: FUROSEMIDE 100MG/10ML VIAL 80 MG IV (10:14)
[2024-09-24] MEDS: ALLOPURINOL 100MG TABLET 100 MG PO (10:14)
[2024-09-24] MEDS: POTASSIUM CHLORIDE 20MEQ TAB 40 MEQ PO ×2 (10:14→12:14)
[2024-09-24] MEDS: CLOPIDOGREL 75MG TAB 75 MG PO (10:14)
[2024-09-24] MEDS: HEPARIN SODIUM 5,000 UNIT/ML VIAL 5000 UNIT SUBCUT (10:15)
[2024-09-24] MEDS: humaLOG MIX 75/25 3ML FLEXPEN 45 UNIT SUBCUT (10:16)
--- NOTE | 2024-09-24 11:28 | HMH.PTEV ---
Physical Therapy Evaluation Rehab PT IP Evaluation Start: 09/23/24 14:33 Freq: .once Status: Active Protocol: Document 09/24/24 10:45 ZE (Rec: 09/24/24 11:28 [place] [id number]) Subjective/History History History 84-year-old male with history of diabetes, prostate cancer, hyperlipidemia. Presents with worsening fatigue and weakness over the past week. Of note completed chemotherapy with abiraterone last weekend. He was also on concurrent prednisone 5 mg daily. After finishing his medication, he has remained feeling quite weak, began to worsen on Tuesday. Denies ez fever, nausea or vomiting. Has had some mild chills. Denies chest pain. Feels short of breath with exertion. Had increased swelling in his legs and upped his diuretic midweek and has had some improvement in his swelling but still has significant swelling in his ankles. Denies chest pain, nausea, vomiting. Has had very poor appetite however. Workup in the ER with findings of mild electrolyte disturbances, sodium low at 131, magnesium 1.5. BNP elevated. O2 sats dropped to mid 80s on room air and was placed on 2 L nasal cannula oxygen. Given his swelling in his legs, concern for diastolic acute on chronic heart failure. Medicine consulted due to new oxygen requirement and fatigue. He reports he lives alone, 1 RHYS the home, and he generally uses a cane for all ambulation. Subjective Subjective Pt reports feeling much better than he did yesterday. Agrees to mobility assessment. New diagnosis of Yes cancer in past 12 months? [facility] How much help from another person do you currently need... Turning from your None back to your side while in a flat bed without using bedrails? Moving from lying on None back to sitting on the side of a flat bed without using bedrails? Moving to and from a None bed to a chair ( including a wheelchair)? Standing up from a None chair using your arms? (e.g., wheelchair, bedside chair) Walking in hospital None room? Climbing 3-5 steps None with a railing? Mobility Score 24 Mobility Level [facility] Mobility Walk 250 feet or more Mobility Calculator Rehab PT IP Eval Objective Appearance Patient Behavior Appropriate Patient Orientation Person,Place,Time Difficulty following none instructions Speech Pattern Appropriate Ambulation Patient Able to Yes Ambulate Ambulation Observation IP General Gait No Deviations/Normal Pattern Observation Ambulation Distance 40 (feet) Ambulation Assistive Straight Cane Device Ambulation Ability Independent Balance Ability to Arise Able, uses arms to help Sitting Balance Steady, safe Standing Balance Steady, wide stance Dynamic Sitting Good Balance Ability Dynamic Standing Good Balance Ability Transfers Bed Transfer Ability Independent Chair Transfer Independent Ability Sit to Stand Bed Independent Transfer Ability Sit to Stand Chair Independent Transfer Ability Rehab PT IP prob,goals,plan Problems Date of Evaluation: 09/24/24 Discharge Plan PT Discharge Plan Pt is currently appropriate to return home once medically stable for d/c. Recommend home health therapy after return home as needed. No current needs for skilled acute therapy services. Eval Complexity Eval Charge Codes 90092 - High Complexity PHYSICIAN CERTIFICATION: I certify the specified therapy services for Braeden Palmer are required, authorized, and reviewed every 30 days.
[2024-09-24 12:00] VITALS: BP 137/64; PULSE 80; PULSE 83; RESP 18; TEMP 36.6; O2SAT 94
--- NOTE | 2024-09-24 12:12 | SW/DCPLANNER ---
PT is currently recommending home health services. Patient has no needs at this time.
--- NOTE | 2024-09-24 12:26 | EXP.CARD.CON ---
History of Present Illness History of Present Illness Consult date: 09/24/24 Requesting physician: Lloyd Guthrie Chief complaint: Weakness and fatigue History of present illness: This is an 84-year-old white male with past medical history of DM type II, metastatic prostate cancer, hyperlipidemia and CAD with one previous stent > 10 years ago, follows with Dr. Jackson at [facility] who presented to emergency department with complaints of generalized fatigue and weakness over the past week. He completed chemotherapy last week with abiraterone last weekend and has been on concurrent prednisone 5mg po daily. Patient reports he felt slightly short of breath and has swelling in his legs over the past week. He increased his diuretics over the week which seemed to help. Upon arrival to ED EKG showed NSR rate of 90 and was negative for Stemi. Significant labs on admission was sodium of 131, magnesium of 1.5 and BNP elevated to 713. Chest CTA was negative for PE but did show sclerotic foci within multiple thoracic vertebral bodies, metastasis cannot be excluded. Oxygen saturation was noted to drop into the 80s while on room air during ER visit. Patient was admitted for concern for volume overload and fatigue and givenn lasix 80mg IV in ED. Patient has diuresed well and reports is feeling better. This morning he denies chest pain or soa and is maintaining his O2 > 90 percent on room air. Echo is pending. [facility] Disclaimer: The information contained in this section may have been updated after the patient was seen, as this information can be updated by other users. Medical History GERD (gastroesophageal reflux disease) Bruise of toe Hypertension Ingrown nail of great toe of left foot Postoperative dehiscence of skin wound Blister of fifth toe, left Encounter for dialysis Tear of retina History of COVID-19 History of cataract Edema Osteomyelitis of toe of left foot Other specified symptoms and signs involving the circulatory and respiratory systems Cellulitis of left foot Renal disease HTN (hypertension), benign HLD (hyperlipidemia) T2DM (type 2 diabetes mellitus) Coronary artery disease Anxiety Pain around toenail Onychomycosis Surgical History Hx of cataract surgery Hx of colonoscopy History of surgery History of coronary artery stent placement Hx of cardiac cath Family History Other Diabetes Heart attack Social History Smoking Status: Smoker, status unknown tobacco type: cigarettes alcohol intake: never substance use type: denies use current occupational status: retired Travel in the last 8 weeks?: None Review of Systems Review of Systems Review of systems:: pertinent systems reviewed and negative unless documented below Constitutional Constitutional: Reports lethargy and Reports weakness *Cardiovascular Cardiovascular: Denies chest pain at rest and Reports dyspnea *Respiratory Respiratory: Reports dyspnea *Neurologic Neurologic: Reports weakness Exam Data for Last 24 hours Vital signs and Labs for Last 24 Hours: Temp Pulse Resp BP Pulse Ox O2 Del Method O2 Flow Rate 97.9 F 83 18 137/64 94 L Room Air 2 09/24/24 12:00 09/24/24 12:00 09/24/24 12:00 09/24/24 12:00 09/24/24 12:00 09/24/24 12:00 09/24/24 11:00 Laboratory Results - last 24 hr 09/23/24 10:40: Chlamy pneumoniae PCR Not detected, Adenovirus (PCR) Not detected, B. pertussis DNA (PCR) Not detected, Coronavirus OC43 (PCR) Not detected, Coronavirus HKU1 (PCR) Not detected, Coronavirus 229E (PCR) Not detected, SARS-CoV-2 (PCR) Not detected, Coronavirus NL63 (PCR) Not detected, Human Metapneumovir PCR Not detected, Influenza A (H1) PCR Not detected, Influ A (H1N1/09) PCR Not detected, Influenza A (H3) PCR Not detected, Influenza Type A (PCR) Not detected, Influenza Type B (PCR) Not detected, M. pneumoniae (PCR) Not detected, Parainfluenza 1 (PCR) Not detected, Parainfluenza 2 (PCR) Not detected, Parainfluenza 3 (PCR) Not detected, Parainfluenza 4 (PCR) Not detected, RSV (PCR) Not detected, Entero/Rhino (PCR) Not detected 09/23/24 12:02: Urine RBC None, Urine WBC None, Ur Squamous Epith Cells None, Urine Bacteria None, Hyaline Casts Occ 09/23/24 13:45: Troponin I 0.02 09/23/24 14:35: Hemoglobin A1c 6.7 H, TSH 2.71 09/23/24 16:13: POC Glucose 173 H 09/23/24 17:15: Troponin I 0.05 H 09/24/24 05:38: WBC 5.8 D, RBC 2.81 L, Hgb 9.3 L D, Hct 28.6 L, MCV 101.8 H, MCH 33.1 H, MCHC 32.5, RDW 13.6, Plt Count 188, MPV 10.2, Neut % (Auto) 65.5, Lymph % (Auto) 20.6, [place] % (Auto) 13.0 H, Eos % (Auto) 0.2, Baso % (Auto) 0.2, Neut # (Auto) 3.8, Lymph # (Auto) 1.2, [place] # (Auto) 0.8, Eos # (Auto) 0.0, Baso # (Auto) 0.0, Sodium 136, Potassium 3.3 L, Chloride 95 L, Carbon Dioxide 37 H, Anion Gap 7.3, BUN 24 H, Creatinine 1.80 H D, Estimated Creat Clear 51, Estimated GFR 36 L, Est GFR ( Amer) 44 L D, Glucose 142 H, Calcium 8.5, Magnesium 1.9 D, Total Bilirubin 0.4, AST 26, ALT 12 D, Alkaline Phosphatase 100, Total Protein 5.6 L, Albumin 3.4 L D, Globulin 2.2, Albumin/Globulin Ratio 1.5 I & O for Last 24 hours: Intake & Output 09/21/24 09/22/24 09/23/24 09/24/24 23:59 23:59 23:59 23:59 Intake Total 340 / 630 570 / 570 Output Total 850 / 850 0 / 0 Balance -510 / -220 570 / 570 Weight 275 lb 9 oz 272 lb 1.6 oz Microbiology Reports for the Last 24 Hours: Microbiology 09/23/24 10:37 Blood Blood Culture - Preliminary NO GROWTH AFTER 24 HOURS 09/23/24 10:29 Blood Blood Culture - Preliminary NO GROWTH AFTER 24 HOURS Constitutional Constitutional: no acute distress *Routine Respiratory Exam Respiratory: Present CTA bilaterally and symmetric chest movement *Routine Cardiovascular Exam Cardiovascular: Present RRR, Normal S1 and Normal S2 *Routine Abdominal Exam Abdominal: Present soft and normoactive bowel sounds; Absent tenderness *Routine Extremities Exam Extremities: Present edema, full ROM and normal capillary refill *Routine Skin Exam Skin: Present intact, dry and warm Detailed Neck Exam: Thyroids Thyroid: Absent bruit Meds Home Medications and Allergies Home Medications ?Medication ?Instructions ?Recorded ?Confirmed ?Type aspirin 81 mg tablet,delayed 81 mg PO DAILY 10/19/18 09/23/24 History release (Adult Low Dose Aspirin) insulin human U-100 NPH-regulr 58 unit SQ BID 08/02/19 09/23/24 History 70-30 mix 100 unit/mL subcutaneous susp (Novolin 70/30 U-100 Insulin) simvastatin 40 mg tablet 40 mg PO HS #90 tabs 04/23/24 09/23/24 Rx calcitriol 0.25 mcg capsule 0.25 mcg PO MOWEFR #36 caps 05/04/24 09/23/24 Rx tamsulosin 0.4 mg capsule 0.4 mg PO HS #90 caps 05/15/24 09/23/24 Rx clopidogrel 75 mg tablet 75 mg PO DAILY #90 tabs 07/06/24 09/23/24 Rx gabapentin 300 mg capsule 300 mg PO TID #270 caps 07/06/24 09/23/24 Rx hydralazine 10 mg tablet 20 mg (2 x 10 mg) PO BID #180 tabs 07/09/24 09/23/24 Rx allopurinol 100 mg tablet 100 mg PO BID #180 tabs 08/06/24 09/23/24 Rx famotidine 20 mg tablet 20 mg PO DAILY #90 tabs 09/12/24 09/23/24 Rx furosemide 20 mg tablet 40 mg (2 x 20 mg) PO DAILY #180 09/12/24 09/23/24 Rx tabs pantoprazole 40 mg tablet,delayed 40 mg PO DAILY 09/23/24 09/23/24 History release New Prescriptions to Start Prescriptions: Allergies Allergy/AdvReac Type Severity Reaction Status Date / Time No Known Allergies Allergy Verified 07/09/24 11:45 Assessment and Plan *Assessment and plan (1) Acute on chronic heart failure with preserved ejection fraction (HFpEF): Status: Acute Category: Medical Code(s): I50.33 - Acute on chronic diastolic (congestive) heart failure (2) HLD (hyperlipidemia): Status: Chronic Category: Medical Code(s): E78.5 - Hyperlipidemia, unspecified (3) Diabetes mellitus: Status: Acute Qualifiers: Diabetes mellitus complication detail: with polyneuropathy Diabetes mellitus complication status: with neurologic complications Diabetes mellitus halfway insulin use: with buttermaker helper use Diabetes mellitus type: type 2 Qualified Code(s): E11.42 - Type 2 diabetes mellitus with diabetic polyneuropathy; Z79.4 - ocean transportation intermediary (current) use of insulin Category: Medical Code(s): E11.9 - Type 2 diabetes mellitus without complications (4) CAD (coronary artery disease): Status: Acute Category: Medical Code(s): I25.10 - Atherosclerotic heart disease of [place] coronary artery without angina pectoris (5) Prostate cancer: Status: Chronic Category: Medical Code(s): C61 - Malignant neoplasm of prostate Plan Acute on chronic HFpEF Mild reduction in RV function BNP > 700 on admission Continue Lasix 80 mg p.o. twice daily Echo normal LV systolic function, mild RV dilation with mild reduction in RV function, mild biatrial dilation, mild and MR Chest CTA negative for PE Will hold on Jardiance/Farxiga at this time due to history of metastatic prostate cancer and recent steroid use History of coronary artery disease Previous stenting EKG negative for STEMI Troponin 0.02?0.05 Denies chest pain Follows with Dr. Jackson at [facility] Hyperlipidemia LDL goal less than 55, continue statin Metastatic prostate cancer Defer to primary service CV summary 09/24/2024: Echocardiogram shows mild RV dilation with mild reduction in RV function. Patient can continue Lasix 80 mg p.o. twice daily for volume overload. He is CV stable for discharge home. Please have patient follow-up with either Dr. Jackson or [facility] cardiology in 1 week for reevaluation and possible outpatient ischemic evaluation. Cardiac meds for discharge: Aspirin 81 mg p.o. daily Plavix 75 mg p.o. daily Lasix 80 mg p.o. twice daily Simvastatin 40 mg p.o. daily
--- NOTE | 2024-09-24 13:01 | SW/DCPLANNER ---
PTOT recommended home health. Patient is agreeable and has used [facility] in the past. Will send info to [facility]
--- NOTE | 2024-09-24 13:24 | SW/DCPLANNER ---
Addendum entered by Elizabeth Gilmore 09/24/24 13:55: [facility] has accepted patient. Original Note: Patient info has been sent to [facility]. will follow up with patient for acceptance.
--- NOTE | 2024-09-24 13:33 | HMH.OTEV ---
OT Inpatient Evaluation Rehab OT IP Evaluation Start: 09/24/24 07:54 Freq: ONCE Status: Active Protocol: Document 09/24/24 13:30 [facility] (Rec: 09/24/24 13:33 [facility] [id number]) Rehab OT IP Assessment Subjective History Pt oriented x 3 on arrival. Pt agreeable to engage in therapy evaluation. Pt admitted on 09/23/24 due to weakness from CHF exacerbation. History and physical: Krish is an 84-year-old male with history of diabetes, prostate cancer, hyperlipidemia. Presents with worsening fatigue and weakness over the past week. Of note completed chemotherapy with abiraterone last weekend. He was also on concurrent prednisone 5 mg daily. After finishing his medication, he has remained feeling quite weak, began to worsen on Tuesday. Denies ez fever, nausea or vomiting. Has had some mild chills. Denies chest pain. Feels short of breath with exertion. Had increased swelling in his legs and upped his diuretic midweek and has had some improvement in his swelling but still has significant swelling in his ankles. Denies chest pain, nausea, vomiting. Has had very poor appetite however. Workup in the ER with findings of mild electrolyte disturbances, sodium low at 131, magnesium 1.5. BNP elevated. O2 sats dropped to mid 80s on room air and was placed on 2 L nasal cannula oxygen. Given his swelling in his legs, concern for diastolic acute on chronic heart failure. Medicine consulted due to new oxygen requirement and fatigue. On arrival to the floor, patient continues to complain of feeling fatigued. Just wants to lay down and rest. Has not had much to eat in the past 3 to 4 days. States has been having increased reflux for which she saw ENT in [place] on Tuesday and was started on famotidine. Symptoms predominantly worsened after completing his chemoth Subjective Prior to being in the hospital, pt lived at home alone. Normally he is independent with all ADLs and IADLs. Pt does use a walker or cane during functional transfers. Pt also still drives. Objective Patient Orientation Person,Place,Birthday Right Upper WFL Extremity Gross ROM Left Upper Extremity WFL Gross ROM Bed Mobility bed mobility-scooting,bed mobility - supine/sit Assist Level Supervision/Stand by Transfer Training Sit/Stand Transfer Assist Level Supervision/Stand by Lower Body Dressing Standby Assistance Ability Performing Toilet Standby Assistance Hygiene Ability Overall Commode/ Standby Assistance Toilet Transfer Ability Commode/Toilet Sit to/from Ambulatory Transfer Technique Rehab OT IP prob,goals,plan Problems Date of Evaluation: 09/24/24 Rehab Potential Rehab Potential Innapropriate for Skilled Therapy Discharge Plan OT Discharge Plan Pt appears to be at her baseline with functional transfers and ADL independence. Pt can return home once he is medically stable per physician. Eval Complexity Eval Charge Codes 35367 - Moderate Complexity PHYSICIAN CERTIFICATION: I certify the specified therapy services for Braeden Palmer are required, authorized, and reviewed every 30 days.
[2024-09-24 16:00] VITALS: PULSE 80
--- NOTE | 2024-09-25 10:09 | SW/DCPLANNER ---
Spoke with patient on the phone. Patient stated that he is feeling better than yesterday. Patient stated that he is aware of his upcoming appointments. Patient stated he was able to get his new medicine picked up. Patient stated that he has no concerns or questions at this time. I suggested that if patient has not heard anything from [facility] to please reach out to us and we will get in contact with the home health. Baldev Flores
== END 2024-09-24 17:34 | disposition home health service (06) ==
LOC: ER 13:06 → 2ND 13:11
PROVIDERS: Admitting Provider Internal Medicine Adolescent Medicine; Emergency Provider Emergency Medicine; PCP Internal Medicine; Visit Provider Internal Medicine Adolescent Medicine
DX: I11.0 Hypertensive heart disease with heart failure (principal); I50.33 Acute on chronic diastolic (congestive) heart failure; D84.9 Immunodeficiency, unspecified; E78.5 Hyperlipidemia, unspecified; E87.1 Hypo-osmolality and hyponatremia; E83.42 Hypomagnesemia; E11.42 Type 2 diabetes mellitus with diabetic polyneuropathy; I25.10 Atherosclerotic heart disease of native coronary artery without angina pectoris; C61 Malignant neoplasm of prostate; C79.9 Secondary malignant neoplasm of unspecified site; E66.9 Obesity, unspecified; M10.9 Gout, unspecified; J90 Pleural effusion, not elsewhere classified; I44.0 Atrioventricular block, first degree; K80.20 Calculus of gallbladder without cholecystitis without obstruction; K21.9 Gastro-esophageal reflux disease without esophagitis; K57.90 Diverticulosis of intestine, part unspecified, without perforation or abscess without bleeding; F17.210 Nicotine dependence, cigarettes, uncomplicated; Z68.36 Body mass index [BMI] 36.0-36.9, adult; Z95.5 Presence of coronary angioplasty implant and graft; Z82.49 Family history of ischemic heart disease and other diseases of the circulatory system; Z79.02 Long term (current) use of antithrombotics/antiplatelets; Z79.82 Long term (current) use of aspirin; Z79.899 Other long term (current) drug therapy; Z79.4 Long term (current) use of insulin
CPT/HCPCS: 93308; 0223U; 36415; 71275; 74177; 80053; 81001; 82550; 82803; 82962; 83036; 83690; 83735; 83880; 84443; 84484; 85025; 87040; 87633; 87636; 93005; 93306; 96365; 96375; 97163; 97166; 99291; G0378; J1644; J1720; J1938; J3475; Q9967

== ENCOUNTER 2024-09-25 21:23 | Observation (INO) | payer MEDICARE, BC, SELFPAY ==
--- OUTSIDE RECORDS SUMMARY | 2024-09-13 16:45 | XMS_ITS | Encounter Summary ---
Author Organization [employer] ([place], [place], [place], [place]) Address [address] [place] [address] Care Team Providers Care Hat Body Inspector Name Role Phone Christopher Yadav MD Primary Care Provider [phone] Encounter Details Date Type Department Care Team (Latest Contact Info) Description 09/13/2024 4:45 PM EDT Lab Patient Walk-In [facility] [address] [place] [address] Xochitl Serra MD [address] [place] [phone] Prostate cancer (HCC) Social History Tobacco [...] Date Ehsan rded Speak language other than Italian at home Not on file 03/11/2023 Want [...] Care Team (Late st Contact Info) Description 12/17/2024 9:45 AM EDT Office Visit [facility] - [address] [place] [address] Xochitl Serra MD [address] [place] [phone] documented as of this encounter Procedures [...] - 720 ng/dL 09/17/2024 12:18 AM EDT [email or web address] Comment: INTERPRETIVE INFORMATION: Testosterone by Immunoassay Testosterone immunoassays are both imprecise and inaccurate at low testosterone concentrations, such as those found in children and cisgender females. For these individuals, testing by mass spectrometry is recommended; refer to Testosterone (Adult Females, Children, or Individuals on Testosterone-Suppressing Hormone Therapy) ([employer] test code [id number]). Free or bioavailable testosterone measurements may provide supportive information. For individuals on testosterone hormone therapy, refer to cisgender male reference intervals. No reference intervals have been established for males younger than 14 years or for cisgender females. For a complete set of all established reference intervals, refer to [employer]/Tests/Pub/[id number]. Sex Hormone Binding Globulin 64 19 - 76 nmol/L 09/17/2024 12:18 AM EDT [email or web address] Comment: REFERENCE INTERVAL: Sex Hormone Binding Globulin Access complete set of age- and/or gender-specific reference intervals for this test in the [employer] [facility] Test Directory ([employer]). Testosterone, Free Calculation <1(L) 47 - 244 pg/mL 09/17/2024 12:18 AM EDT [email or web address] Comment: INTERPRETIVE INFORMATION: Testosterone, Free Calculation Free [...] Children, or Individuals on Testosterone-Suppressing Hormone Therapy) ([employer] test code [id number]). For individuals on testosterone hormone therapy, refer to cisgender male reference intervals. No reference intervals have been established for males younger than 14 years or for cisgender females. For a complete set of all established reference intervals, refer to [employer]/Tests/Pub/[id number]. Testosterone, Percentage Free <1.1(L) 1.6 - 2.9 % 09/17/2024 12:18 AM EDT [email or web address] Comment: Performed By: [employer] [address] [place] [address] Check Processing Clerk: Cameron Javier MD, PhD CLIA Number: [id number] Blood Venipuncture / Unknown 09/13/2024 1:26 PM EDT 09/13/2024 1:26 PM EDT Xochitl Serra MD LAB BLOOD ORDERABLES Final Res ult Performing Organization Address City/[facility]/ZIP Co de Phone Number [email or web address] [address] [place] [address], [facility] [phone] * (ABNORMAL) PSA ([facility], LUCIA, [place], [place], [facility]) (09/13/2024 1:26 PM EDT) Pathologist [facility] [place] PSA diagnostic (ng/mL) <0.13(L) 0.13 - 4 ng/mL 09/13/2024 8:40 PM EDT [facility] Blood Venipuncture / Unknown 09/13/2024 1:26 PM EDT 09/13/2024 1:26 PM EDT Xochitl Serra MD LAB BLOOD ORDERABLES Final Res ult [facility] [address] [place] [address], [facility] [phone] * (ABNORMAL) CMP (09/13/2024 1:26 PM EDT) Sodium 140 136 - 145 meq/L 09/13/2024 3:48 PM EDT [facility] Potassium 4.5 3.5 - 5.1 meq/L 09/13/2024 3:48 PM EDT [facility] Chloride 101 98 - 107 meq/L 09/13/2024 3:48 PM EDT [facility] CO2 33(H) 21 - 32 meq/L 09/13/2024 3:48 PM EDT [facility] Calcium 9.3 8.5 - 10.1 mg/dL 09/13/2024 3:48 PM EDT [facility] Glucose 237(H) 74 - 100 mg/dL 09/13/2024 3:48 PM EDT [facility] BUN 39(H) 7 - 18 mg/dL 09/13/2024 3:48 PM EDT [facility] Creatinine 1.93(H) 0.70 - 1.20 mg/dL 09/13/2024 3:48 PM EDT [facility] BUN/Creatinine 20 09/13/2024 3:48 PM EDT [facility] Albumin 3.6 3.4 - 5.0 g/dL 09/13/2024 3:48 PM EDT [facility] Alkaline Phosphatase 151(H) 46 - 116 U/L 09/13/2024 3:48 PM EDT [facility] ALT 19 12 - 78 U/L 09/13/2024 3:48 PM EDT [facility] AST 17 15 - 37 U/L 09/13/2024 3:48 PM EDT [facility] Total Bilirubin 0.5 0.2 - 1.0 mg/dL 09/13/2024 3:48 PM EDT [facility] Protein, Total 7.0 6.4 - 8.2 gm/dL 09/13/2024 3:48 PM EDT [facility] Anion Gap 11 11 - 22 09/13/2024 3:48 PM EDT [facility] A/G Ratio 1.1 09/13/2024 3:48 PM EDT [facility] Globulin 3.4 g/dL 09/13/2024 3:48 PM EDT [facility] Osmolality Calc 296.5 mOsm/kg 3:48 PM EDT [facility] eGFR (mL/min/1.73m2) 33(L) >=60 mL/min/1.7 3m2 09/13/2024 3:48 PM EDT [facility] Comment:ESTIMATED GFR IS NOT ACCURATE CREATININE CLEARANCE IN PREDICTING GLOMERULAR FILTRATION RATE. ESTIMATED GFR IS NOT APPLICABLE FOR DIALYSIS PATIENTS. Blood Venipuncture / Unknown 09/13/2024 1:26 PM EDT 09/13/2024 1:26 PM EDT us Xochitl Serra MD LAB BLOOD ORDERABLES Final Res ult [facility] [address] [place] [address] * (ABNORMAL) CBC with Diff (09/13/2024 1:26 PM EDT) WBC 9.3 4.8 - 10.8 K/ L 09/13/2024 1:39 PM EDT [facility] RBC 3.28(L) 3.80 - 5.20 M/ L 09/13/2024 1:39 PM EDT [facility] Hemoglobin 11.3(L) 12.8 - 17.4 GM/DL 09/13/2024 1:39 PM EDT [facility] Hematocrit 34.2(L) 39.0 - 51.0 % 09/13/2024 1:39 PM EDT [facility] MCV 104(H) 81 - 101 fL 09/13/2024 1:39 PM EDT [facility] MCH 34.5(H) 27.0 - 34.0 pg 09/13/2024 1:39 PM EDT [facility] MCHC 33.0 32.0 - 36.0 GM/DL 09/13/2024 1:39 PM EDT [facility] RDW 14.5 11.5 - 14.5 % 09/13/2024 1:39 PM EDT [facility] Platelets 202 150 - 400 K/CU MM 09/13/2024 1:39 PM EDT [facility] MPV 9.9 9.4 - 12.4 fL 09/13/2024 1:39 PM EDT [facility] Nucleated Red Blood Cell 0.0 0 - 0.2 % 09/13/2024 1:39 PM EDT [facility] % Neutros 75 37 - 80 % 09/13/2024 1:39 PM EDT [facility] % Lymphs 16 10 - 50 % 09/13/2024 1:39 PM EDT [facility] % Monos 7 5 - 13 % 09/13/2024 1:39 PM EDT [facility] % Eos 0 0 - 7 % 09/13/2024 1:39 PM EDT [facility] % Baso 0 0 - 3 % 09/13/2024 1:39 PM EDT [facility] NRBC Absolute <0.01 0 - 0.012 K/ul 09/13/2024 1:39 PM EDT [facility] # Neutros 7.02(H) 2.00 - 6.90 K/ L 09/13/2024 1:39 PM EDT [facility] # Lymphs 1.51 0.60 - 3.40 K/ L 09/13/2024 1:39 PM EDT [facility] # Monos 0.69 0.00 - 0.90 K/ L 09/13/2024 1:39 PM EDT [facility] # Eos 0.03 0.00 - 0.70 K/ L 09/13/2024 1:39 PM EDT [facility] # Baso 0.02 0.00 - 0.20 K/ L 09/13/2024 1:39 PM EDT [facility] Immature Granulocytes-Re lative 0.50 % 09/13/2024 1:39 PM EDT [facility] # IG 0.05(H) 0.00 - 0.00 K/uL 09/13/2024 1:39 PM EDT [facility] Blood Venipuncture / Unknown 09/13/2024 1:26 PM EDT 09/13/2024 1:26 PM EDT Narrative [facility] - 09/13/2024 1:39 PM EDT [...] MD LAB BLOOD ORDERABLES Final Res ult [facility] [address] [phone] documented in this encounter Visit Diagnoses Diagnosis Prostate cancer (HCC) Malignant neoplasm of prostate documented in this encounter Care Teams Hat Body Inspector Relationship Specialty Start Date End Date Christopher Yadav MD [address] [place] [address] PCP - General General Internal Medicine 03/15/23 documented as of this encounter
--- OUTSIDE RECORDS SUMMARY | 2024-09-17 09:00 | XMS_ITS | Encounter Summary ---
Author Organization [employer] ([place], [place], [place], [place]) Address [address] [place] [address] Care Team Providers Care Hvac Operations Technician Name Role Phone Christopher Yadav MD Primary Care Provider [phone] Reason for Visit * Reason Comments Follow-up Prostate Cancer Encounter Details Date Type Department Care Team (Late st Contact Info) Description 09/17/2024 9:00 AM EDT Office Visit [facility] - [address] [place] [address] Xochitl Serra MD [address] [address] Prostate cancer (HCC) (Primary Dx); [...] Date Ehsan rded Speak language other than Gabonese at home Not on file 03/11/2023 Want [...] showed prostate cancer in every core with [place] score of 7 or 8. Cancer volumes [...] ANTERIOR APPROACH; Surgeon: Eric Parkinson MD; Location: [facility]; Service: Orthopaedic Surgery; Laterality: Left; EXACTECH, HANA TABLE, C-ARM & PRINTER, CELL SAVER COLONOSCOPY multiple CORONARY ANGIOPLASTY WITH STENT PLACEMENT EYE SURGERY Bilateral catract extraction MANDIBLE SURGERY [place] BX PROSTATE STRTCTC SATURATION SAMPLING IMG GID N/A 08/16/2023 Procedure: BIOPSY, PROSTATE, PERINEAL APPROACH; Surgeon: Samuel Mata MD; Location: [facility]; Service: Urology; Laterality: N/A; [facility] [id number] Social History Socioeconomic History Marital status: / [...] Children, or Individuals on Testosterone-Suppressing Hormone Therapy) ([employer] test code 9648028). Free or bioavailable testosterone measurements may provide supportive information. For individuals on testosterone hormone therapy, refer to cisgender male reference intervals. No reference intervals have been established for males younger than 14 years or for cisgender females. For a complete set of all established reference intervals, refer to [employer]/Tests/Pub/[id number]. Sex Hormone Binding Globulin 09/13/2024 64 19 - 76 nmol/L Final REFERENCE INTERVAL: Sex Hormone Binding Globulin Access complete set of age- and/or gender-specific reference intervals for this test in the Contrib Test Directory ([employer]). Testosterone, Free Calculation 09/13/2024 <1 (L) 47 [...] Children, or Individuals on Testosterone-Suppressing Hormone Therapy) (VisualCV test code 9530836). For individuals on testosterone hormone therapy, refer to cisgender male reference intervals. No reference intervals have been established for males younger than 14 years or for cisgender females. For a complete set of all established reference intervals, refer to [employer]eg[employer]/Tests/Pub/[id number]. Testosterone, Percentage Free 09/13/2024 <1.1 (L) 1.6 - 2.9 % Final Performed By: [facility] [address] [place] [address] Offal Roller: Cameron Javier MD, PhD CLIA Number: [id number] Radiology Results (last 7 days) No results [...] Images reviewed, interpreted, and dictated by Dr. Oscra Joya. Transcribed by Marci Boyd PA-C. Specimen Collected: 08/30/23 14:52 EDT Last Resulted: 08/30/23 15:14 EDT PET/CT PSMA VERTEX TO THIGH Order: [id number] Impression Multifocal intense PSMA-avid uptake within the [...] scanner: Siemens Biograph 40 mCT. PET/CT acquisition: Mmfmxa-fi-eea-thighs. Standardized uptake value (SUV): Corrected for body weight only. CT: Low-dose, rnb-nyozmu-vpwq, without intravenous contrast. TOTAL DLP (Dose Length [...] is going to follow up with his Algorithm Design Engineer in 2 weeks. He is going to [...] Description 12/17/2024 9:45 AM EDT Office Visit [facility] - [address] [place] [address] Xochitl Serra MD [address] [address] Scheduled Orders Name Type Priority Associated Diagnoses Orde r Schedule CBC with Diff Lab Routine Prostate cancer (HCC) Renal dysfunction Expected: 09/17/2024, Expires: 09/17/2025 CMP Lab Routine Prostate cancer (HCC) Renal dysfunction Expected: 09/17/2024, Expires: 09/17/2025 PSA (LUCIA Thompson Corbin, [facility]) Lab Routine Prostate cancer (HCC) Renal dysfunction Expected: 09/17/2024, Expires: 09/17/2025 documented as of this encounter Visit Diagnoses Diagnosis Prostate cancer (HCC)- Primary Malignant neoplasm of prostate Renal dysfunction Unspecified disorder of kidney and ureter documented in this encounter Care Teams Hvac Operations Technician Relationship Specialty Start Date End Date Christopher Yadav MD [address] [place] [address] PCP - General General Internal Medicine 03/15/23 documented as of this encounter
[2024-09-25 21:30] VITALS: BP 131/63; PULSE 94; RESP 18; TEMP 36.9; O2SAT 92; BMI 31.1
--- OUTSIDE RECORDS SUMMARY | 2024-09-25 21:36 | XMS_ITS | Referral Summary ---
Author Organization [employer] ([place], [place], [place], [place]) Address [address] [place] [address] Care Team Providers Care Commercial Tire Service Technician Name Role Phone Christopher Yadav MD Primary Care Provider [phone] Encounters Date Type Department Care Team Description 09/25/2024 Telephone [facility] [address] [place] [address] Mary Jane Marley APRN Abnormal Imaging Result 09/17/2024 Travel 09/17/2024 9:00 AM EDT Office Visit [facility] Oncology [address] [place] [address] Xochitl Serra MD Prostate cancer (HCC) (Primary Dx); Renal dysfunction 09/13/2024 Travel 09/13/2024 4:45 PM EDT Lab Patient Walk-[facility] [address] [place] [address] Xochitl Serra MD Prostate cancer (HCC) from Last 3 Months Allergies No known active allergies Medications amLODIPine (NORVASC) 5 MG tablet Take 1 tablet (5 mg total) by mouth daily. 12/21/19 Active furosemide (LASIX) 20 MG tablet Take 2 tablets (40 mg total) by mouth daily. 12/21/19 Active insulin 70/30, insulin NPH-insulin regular, (HumuLIN [...] Date Ehsan rded Speak language other than Marshallese at home Not on file 03/11/2023 Want [...] Description 12/17/2024 9:45 AM EDT Office Visit [facility] Oncology - [address] [place] [address] Xochitl Serra MD [address] [address] Medical Devices Implanted Type Area Community Liaison Officer Device Identifier Shelf Expiration Date Model / Serial / Lot Stents-Machado ry Stents-Coron maribel Heart Head Fem Delta 36mm +0mm - [id number] Implanted:Qty : 1 on 03/21/2023 by Eric Parkinson MD at [facility] [employer] Left: Hip EX[employer]ECH [id number] 05/31/2027 17036 / [id number] / Stem Fem Pf Sz9 113mm - [id number] Implanted:Qty : 1 on 03/21/2023 by Eric Parkinson MD at [facility] [employer] Left: Hip [employer]CH [id number] 10/03/2027 / [id number] / Liner Ntrl Altn Xle Grp6 36mm 6 - [id number] Implanted:Qty : 1 on 03/21/2023 by Eric Parkinson MD at [facility] [employer] Left: Hip EX[employer]ECH [id number] 03/17/2027 / [id number] / Cup Clstr-Hole Altn Pcg6 54mm 34-971-29 [id number] - [id number] Implanted:Qty : 1 on 03/21/2023 by Eric Parkinson MD at [facility] [employer] Left: Hip EX[employer]ECH [id number] 10/25/2032 / [id number] / Procedures Procedure Name Priority Date/Time Associated Diagnosis Comments EXTERNAL IMAGING - CT Routine 09/25/2024 11:14 AM EDT TESTOSTERONE FREE AND TOTAL,INCLUDES SEX HORMONE-BINDING GLOBULIN [...] Recently Relevant to Health Maintenance Results * EXTERNAL IMAGING - CT (09/25/2024 11:14 AM EDT) Anatomical Region Laterality Modality Other us Historical Provider HEALTH MAINTENANCE Final Result * (ABNORMAL) CBC with Diff (09/13/2024 1:26 PM EDT) WBC 9.3 4.8 - 10.8 K/ L 09/13/2024 1:39 PM EDT [facility] RBC 3.28(L) 3.80 - 5.20 M/ L 09/13/2024 1:39 PM EDT [facility] Hemoglobin 11.3(L) 12.8 - 17.4 GM/DL 09/13/2024 1:39 PM EDT [facility] Hematocrit 34.2(L) 39.0 - 51.0 % 09/13/2024 1:39 PM EDT [facility] MCV 104(H) 81 - 101 fL 09/13/2024 1:39 PM EDT [facility] MCH 34.5(H) 27.0 - 34.0 pg 09/13/2024 1:39 PM EDT [facility] MCHC 33.0 32.0 - 36.0 GM/DL 09/13/2024 1:39 PM EDT [facility] RDW 14.5 11.5 - 14.5 % 09/13/2024 1:39 PM EDT [facility] Platelets 202 150 - 400 K/CU MM 09/13/2024 1:39 PM EDT [facility] MPV 9.9 9.4 - 12.4 fL 09/13/2024 1:39 PM EDT [facility] Nucleated Red Blood Cell 0.0 0 - 0.2 % 09/13/2024 1:39 PM EDT [facility] % Neutros 75 37 - 80 % 09/13/2024 1:39 PM EDT [facility] % Lymphs 16 10 - 50 % 09/13/2024 1:39 PM EDT [facility] % Monos 7 5 - 13 % 09/13/2024 1:39 PM EDT [facility] % Eos 0 0 - 7 % 09/13/2024 1:39 PM EDT [facility] % Baso 0 0 - 3 % 09/13/2024 1:39 PM EDT [facility] NRBC Absolute <0.01 0 - 0.012 K/ul 09/13/2024 1:39 PM EDT [facility] # Neutros 7.02(H) 2.00 - 6.90 K/ L 09/13/2024 1:39 PM EDT [facility] # Lymphs 1.51 0.60 - 3.40 K/ L 09/13/2024 1:39 PM EDT [facility] # Monos 0.69 0.00 - 0.90 K/ L 09/13/2024 1:39 PM EDT [facility] # Eos 0.03 0.00 - 0.70 K/ L 09/13/2024 1:39 PM EDT [facility] # Baso 0.02 0.00 - 0.20 K/ L 09/13/2024 1:39 PM EDT [facility] Immature Granulocytes-Re lative 0.50 % 09/13/2024 1:39 PM EDT [facility] # IG 0.05(H) 0.00 - 0.00 K/uL 09/13/2024 1:39 PM EDT [facility] Blood Venipuncture / Unknown 09/13/2024 1:26 PM EDT 09/13/2024 1:26 PM EDT Narrative [facility] - 09/13/2024 1:39 PM EDT [...] MD LAB BLOOD ORDERABLES Final Res ult [facility] [address] [phone] * (ABNORMAL) Testosterone Free And Total, Adult Male(SENDOUT) (09/13/2024 1:26 PM EDT) Testosterone by Immunoassay <3(L) 300 - 720 ng/dL 09/17/2024 12:18 AM EDT [facility] Comment: INTERPRETIVE INFORMATION: Testosterone by Immunoassay Testosterone immunoassays are both imprecise and inaccurate at low testosterone concentrations, such as those found in children and cisgender females. For these individuals, testing by mass spectrometry is recommended; refer to Testosterone (Adult Females, Children, or Individuals on Testosterone-Suppressing Hormone Therapy) ([employer] test code 8479547). Free or bioavailable testosterone measurements may provide supportive information. For individuals on testosterone hormone therapy, refer to cisgender male reference intervals. No reference intervals have been established for males younger than 14 years or for cisgender females. For a complete set of all established reference intervals, refer to ltd.[employer]/Tests/Pub/8223761. Sex Hormone Binding Globulin 64 19 - 76 nmol/L 09/17/2024 12:18 AM EDT [facility] Comment: REFERENCE INTERVAL: Sex Hormone Binding Globulin Access complete set of age- and/or gender-specific reference intervals for this test in the [employer] [facility] Test Directory ([employer]). Testosterone, Free Calculation <1(L) 47 - 244 pg/mL 09/17/2024 12:18 AM EDT [facility] Comment: INTERPRETIVE INFORMATION: Testosterone, Free Calculation Free [...] Children, or Individuals on Testosterone-Suppressing Hormone Therapy) ([employer] test code [id number]). For individuals on testosterone hormone therapy, refer to cisgender male reference intervals. No reference intervals have been established for males younger than 14 years or for cisgender females. For a complete set of all established reference intervals, refer to ltd[employer]/Tests/Pub/5592322. Testosterone, Percentage Free <1.1(L) 1.6 - 2.9 % 09/17/2024 12:18 AM EDT [facility] Comment: Performed By: [facility] [address] [place] [address] Retail Mortgage Banker: Cameron Javier MD, PhD CLIA Number: [id number] Blood Venipuncture / Unknown 09/13/2024 1:26 PM EDT 09/13/2024 1:26 PM EDT Xochitl Serra MD LAB BLOOD ORDERABLES Final Res ult Performing Organization Address City/[facility]/ZIP Co de Phone Number [facility] [address] [place] [address], [facility] [phone] * (ABNORMAL) PSA (Blazer, LUCIA, [place], [place], [facility]) (09/13/2024 1:26 PM EDT) [facility] PSA diagnostic (ng/mL) <0.13(L) 0.13 - 4 ng/mL 09/13/2024 8:40 PM EDT [facility] Blood Venipuncture / Unknown 09/13/2024 1:26 PM EDT 09/13/2024 1:26 PM EDT Xochitl Serra MD LAB BLOOD ORDERABLES Final Res ult Performing Organization Address City/[facility]/ZIP Co de Phone Number [facility] [address] [place] [address], [facility] [phone] * (ABNORMAL) CMP (09/13/2024 1:26 PM EDT) Pathologist [facility] Sodium 140 136 - 145 meq/L 09/13/2024 3:48 PM EDT [facility] Potassium 4.5 3.5 - 5.1 meq/L 09/13/2024 3:48 PM EDT [facility] Chloride 101 98 - 107 meq/L 09/13/2024 3:48 PM EDT [facility] CO2 33(H) 21 - 32 meq/L 09/13/2024 3:48 PM EDT [facility] Calcium 9.3 8.5 - 10.1 mg/dL 09/13/2024 3:48 PM EDT [facility] Glucose 237(H) 74 - 100 mg/dL 09/13/2024 3:48 PM EDT [facility] BUN 39(H) 7 - 18 mg/dL 09/13/2024 3:48 PM EDT [facility] Creatinine 1.93(H) 0.70 - 1.20 mg/dL 09/13/2024 3:48 PM EDT [facility] BUN/Creatinine 20 09/13/2024 3:48 PM EDT [facility] Albumin 3.6 3.4 - 5.0 g/dL 09/13/2024 3:48 PM EDT [facility] Alkaline Phosphatase 151(H) 46 - 116 U/L 09/13/2024 3:48 PM EDT [facility] ALT 19 12 - 78 U/L 09/13/2024 3:48 PM EDT [facility] AST 17 15 - 37 U/L 09/13/2024 3:48 PM EDT [facility] Total Bilirubin 0.5 0.2 - 1.0 mg/dL 09/13/2024 3:48 PM EDT [facility] Protein, Total 7.0 6.4 - 8.2 gm/dL 09/13/2024 3:48 PM EDT [facility] Anion Gap 11 11 - 22 09/13/2024 3:48 PM EDT [facility] A/G Ratio 1.1 09/13/2024 3:48 PM EDT [facility] Globulin 3.4 g/dL 09/13/2024 3:48 PM EDT [facility] Osmolality Calc 296.5 mOsm/kg 3:48 PM EDT [facility] eGFR (mL/min/1.73m2) 33(L) >=60 mL/min/1.7 3m2 09/13/2024 3:48 PM EDT [facility] Comment:ESTIMATED GFR IS NOT ACCURATE CREATININE CLEARANCE IN PREDICTING GLOMERULAR FILTRATION RATE. ESTIMATED GFR IS NOT APPLICABLE FOR DIALYSIS PATIENTS. Blood Venipuncture / Unknown 09/13/2024 1:26 PM EDT 09/13/2024 1:26 PM EDT Xochitl Serra MD LAB BLOOD ORDERABLES Final Res ult Performing Organization Address [facility] Co de Phone Number [facility] [address] [place] [address], [facility] [phone] * (ABNORMAL) Hemoglobin A1c (03/15/2023 11:20 AM EST) Hemoglobin A1C 6.5(H) 4.2 - 6.3 % 03/15/2023 12:24 PM EST [facility] Comment: Hemoglobin A1C levels are related to mean glucose during the preceding 2-3 months. Less than 7% demonstrates glycemic control in diabetic patients. Hemoglobin AlC % Suggested Diagnosis > or = 6.5 Diabetic 5.7 - 6.4 Prediabetic <5.7 Non-diabetic eAVG Glucose 139.85 mg/dL 03/15/2023 12:24 PM EST [facility] Blood Venipuncture / Unknown 03/15/2023 11:20 AM EST 03/15/2023 11:35 AM EST Eric Parkinson MD LAB BLOOD ORDERABLES Fi nal Result Performing Organization Address City/[facility]/ZIP Co de Phone Number [facility] [address] [place] [address], [facility] [phone] from Last 3 Months or Most Recently Relevant to Health Maintenance Insurance MEDICARE PART A B SUPP Advance Directives For more information, please contact: [phone] * Full Code (Latest Code Status on File) Date Activated Date Inactivated Comments 08/16/2023 10:48 AM 08/16/2023 7:35 PM * Full Code Date Activated Date Inactivated Comments 03/21/2023 11:25 AM 03/24/2023 3:00 PM * Full Code Date Activated Date Inactivated Comments 03/21/2023 5:18 AM 03/21/2023 11:25 AM Care Teams Commercial Tire Service Technician Relationship Specialty Start Date End Date Christopher Yadav MD [address] [place] [address] PCP - General General Internal Medicine 03/15/23
--- OUTSIDE RECORDS SUMMARY | 2024-09-25 21:36 | XMS_ITS | Encounter Summary ---
Author Organization [employer] ([place], [place], [place], [place]) Address [address] [place] [address] Care Team Providers Care Medical Genetics Director Name Role Phone Christopher Yadav MD Primary Care Provider [phone] Encounter Details Date Type Department Care Team (Late st Contact Info) Description 07/14/2023 Outside Orders [facility] Urology - [address], [address] [address] Emi Lau Social History Tobacco [...] Date Ehsan rded Speak language other than Dominican at home Not on file 03/11/2023 Want [...] Description 12/17/2024 9:45 AM EDT Office Visit [facility] - [address] [place] [address] Xochitl Serra MD [address] [place] [address] documented as of this encounter Visit Diagnoses Not on filedocumented in this encounter Care Teams Medical Genetics Director Relationship Specialty Start Date End Date Christopher Yadav MD [address] [place] [address] [place] [address] PCP - General General Internal Medicine 03/15/23 documented as of this encounter
--- OUTSIDE RECORDS SUMMARY | 2024-09-25 21:36 | XMS_ITS | Encounter Summary ---
Author Organization Healthcare Address [address] [place] [address] Care Team Providers Care Gas Meter Reader Name Role Phone Christopher Yadav MD Primary Care Provider [phone] Encounter Details Date Type Department Care Team (Late st Contact Info) Description 2023 Lab Requisition [facility] [address] [place] [address] Jamil Maynard MD [address] [facility] [address] [place] [address] Elevated prostate specific antigen (PSA) Social History [...] EDT) Case Report Sug[facility] Pathology Consult Case: [id number] Authorizing Provider: Jamil Maynard MD Collected: 2023 1312 Ordering Location: [facility] Lab Received: 2023 1312 Pathologist: Donna Villalobos MD Specimen: Prostate, [id number] 08/25/2023 10:39 AM EDT [facility] Final Diagnosis PROSTATE, NEEDLE CORE BIOPSIES (REVIEW OF OUTSIDE SLIDES LABELED SM [id number], PROCEDURE DATE 08/16/2023). A. PROSTATE, RIGHT POSTERIOR [...] OF 1 CORE. 08/25/2023 10:39 AM EDT [facility] at 1038 EDT Comment Perineural invasion is identified. Cribriform pattern 4 is also seen. 08/25/2023 10:39 AM EDT [facility] Clinical Information R97.20 - Elevated prostate specific antigen (PSA) [ICD-10-CM] 08/25/2023 10:39 AM EDT [facility] Gross Description A. [id number] Received along with a corresponding pathology report from [facility] are 8 slides labeled outside case: [id number] collected on 08/16/2023. 08/25/2023 10:39 AM EDT [facility] Intradepartmental Consultation with Agreement Kely Ghotra MD 08/25/2023 10:39 AM EDT [facility] Tissue Prostate / Unknown 1:12 PM EDT 2023 1:12 PM EDT us Jamil Maynard MD LAB PATHOLOGY ORDERABLES Savanah lucas Result [facility] [address] [place] [address] documented in this encounter Visit Diagnoses Diagnosis Elevated prostate specific antigen (PSA) documented in this encounter Care Teams Gas Meter Reader Relationship Specialty Start Date End Date Christopher Yadav MD [address] [place] [address] [address] [place] [address] PCP - General 07/11/20 documented as of this encounter
--- OUTSIDE RECORDS SUMMARY | 2024-09-25 21:36 | XMS_ITS | Clinical Summary ---
Author Organization [employer] ([place], [place], [place], [place]) Address [address] [place] [address] Care Team Providers Care Mechanical Design Drafter Name Role Phone Christopher Yadav MD Primary Care Provider [phone] Allergies No known active allergies Medications amLODIPine [...] Type Department Care Team Description 09/25/2024 Telephone [place] [facility] - [place] [address] [place] [address] Mary Jane Marley APRN Abnormal Imaging Result 09/17/2024 9:00 AM EDT Office Visit [facility] [place] [facility] - [place] [address] [place] [address] Xochitl Serra MD Prostate cancer (HCC) (Primary Dx); Renal dysfunction 09/17/2024 Travel 09/13/2024 4:45 PM EDT Lab Patient [facility] [address] [place] [address] Xochitl Serra MD Prostate cancer [...] Date Ehsan rded Speak language other than Austrian at home Not on file 03/11/2023 Want [...] Description 12/17/2024 9:45 AM EDT Office Visit [facility] Oncology - [address] [place] [address] Xochitl Serra MD [address] [address] Health Maintenance Due Date Last [...] 12/03/2015, 03/14/2013 Medical Devices Implanted Type Area Utility Accounts Director Device Identifier Shelf Expiration Date Model / Serial / Lot Stents-Machado ry Stents-Coron maribel Heart Head Fem Delta 36mm +0mm 17036-00 - [id number] Implanted:Qty : 1 on 03/21/2023 by Eric Parkinson MD at [facility] [employer] Left: Hip EX[employer]ECH [id number] 05/31/2027 170-36-00 / [id number] / Stem Fem Pf Sz9 113mm - [id number] Implanted:Qty : 1 on 03/21/2023 by Eric Parkinson MD at [facility] [employer] Left: Hip [employer] [id number] 10/03/2027 / [id number] / Liner Ntrl Altn Xle Grp6 36mm 6 - [id number] Implanted:Qty : 1 on 03/21/2023 by Eric Parkinson MD at [facility] [employer] Left: Hip [employer] [id number] 03/17/2027 / [id number] / Cup Clstr-Hole Altn Pcg6 54mm 84-321-34 4 - [id number] Implanted:Qty : 1 on 03/21/2023 by Eric Parkinson MD at [facility] [employer] Left: Hip [employer]CH [id number] 10/25/203254 / [id number] / Procedures Procedure Name Priority Date/Time Associated [...] Region Laterality Modality Other us Historical Provider MD HEALTH MAINTENANCE Final Result * (ABNORMAL) CBC with Diff (09/13/2024 1:26 PM EDT) WBC 9.3 4.8 - 10.8 K/ L 09/13/2024 1:39 PM EDT [facility] RBC 3.28(L) 3.80 - 5.20 M/ L 09/13/2024 1:39 PM EDT [facility] Hemoglobin 11.3(L) 12.8 - 17.4 GM/DL 09/13/2024 1:39 PM EDT [facility] Hematocrit 34.2(L) 39.0 - 51.0 % 09/13/2024 1:39 PM EDT [facility] MCV 104(H) 81 - 101 fL 09/13/2024 1:39 PM EDT [facility] MCH 34.5(H) 27.0 - 34.0 pg 09/13/2024 1:39 PM EDT [facility] MCHC 33.0 32.0 - 36.0 GM/DL 09/13/2024 1:39 PM EDT [facility] RDW 14.5 11.5 - 14.5 % 09/13/2024 1:39 PM EDT [facility] Platelets 202 150 - 400 K/CU MM 09/13/2024 1:39 PM EDT [facility] MPV 9.9 9.4 - 12.4 fL 09/13/2024 1:39 PM EDT [facility] Nucleated Red Blood Cell 0.0 0 - 0.2 % 09/13/2024 1:39 PM EDT [facility] % Neutros 75 37 - 80 % 09/13/2024 1:39 PM EDT [facility] % Lymphs 16 10 - 50 % 09/13/2024 1:39 PM EDT [facility] % Monos 7 5 - 13 % 09/13/2024 1:39 PM EDT [facility] % Eos 0 0 - 7 % 09/13/2024 1:39 PM EDT [facility] % Baso 0 0 - 3 % 09/13/2024 1:39 PM EDT [facility] NRBC Absolute <0.01 0 - 0.012 K/ul 09/13/2024 1:39 PM EDT [facility] # Neutros 7.02(H) 2.00 - 6.90 K/ L 09/13/2024 1:39 PM EDT [facility] # Lymphs 1.51 0.60 - 3.40 K/ L 09/13/2024 1:39 PM EDT [facility] # Monos 0.69 0.00 - 0.90 K/ L 09/13/2024 1:39 PM EDT [facility] # Eos 0.03 0.00 - 0.70 K/ L 09/13/2024 1:39 PM EDT [facility] # Baso 0.02 0.00 - 0.20 K/ L 09/13/2024 1:39 PM EDT [facility] Immature Granulocytes-Re lative 0.50 % 09/13/2024 1:39 PM EDT [facility] # IG 0.05(H) 0.00 - 0.00 K/uL 09/13/2024 1:39 PM EDT [facility] Blood Venipuncture / Unknown 09/13/2024 1:26 PM EDT 09/13/2024 1:26 PM EDT Narrative [facility] - 09/13/2024 1:39 PM EDT When [...] MD LAB BLOOD ORDERABLES Final Res ult [facility] [address] [place], [place] [id number], [facility] [phone] * (ABNORMAL) Testosterone Free And Total, Adult Male(SENDOUT) (09/13/2024 1:26 PM EDT) Testosterone by Immunoassay <3(L) 300 - 720 ng/dL 09/17/2024 12:18 AM EDT [facility] Comment: INTERPRETIVE INFORMATION: Testosterone by Immunoassay Testosterone immunoassays are both imprecise and inaccurate at low testosterone concentrations, such as those found in children and cisgender females. For these individuals, testing by mass spectrometry is recommended; refer to Testosterone (Adult Females, Children, or Individuals on Testosterone-Suppressing Hormone Therapy) ([facility] test code 1460909). Free or bioavailable testosterone measurements may provide supportive information. For individuals on testosterone hormone therapy, refer to cisgender male reference intervals. No reference intervals have been established for males younger than 14 years or for cisgender females. For a complete set of all established reference intervals, refer to [employer]/Tests/Pub/[id number]. Sex Hormone Binding Globulin 64 19 - 76 nmol/L 09/17/2024 12:18 AM EDT [facility] Comment: REFERENCE INTERVAL: Sex Hormone Binding Globulin Access complete set of age- and/or gender-specific reference intervals for this test in the [facility] Test Directory ([employer]). Testosterone, Free Calculation <1(L) 47 - 244 pg/mL 09/17/2024 12:18 AM EDT [facility] Comment: INTERPRETIVE INFORMATION: Testosterone, Free Calculation Free [...] Children, or Individuals on Testosterone-Suppressing Hormone Therapy) ([facility] test code 5876024). For individuals on testosterone hormone therapy, refer to cisgender male reference intervals. No reference intervals have been established for males younger than 14 years or for cisgender females. For a complete set of all established reference intervals, refer to [employer]/Tests/Pub/[id number]. Testosterone, Percentage Free <1.1(L) 1.6 - 2.9 % 09/17/2024 12:18 AM EDT [facility] Comment: Performed By: [facility] [address] [place] [address] Candy Department Manager: Cameron Javier MD, PhD CLIA Number: [id number] Blood Venipuncture / Unknown 09/13/2024 1:26 PM EDT 09/13/2024 1:26 PM EDT Xochitl Serra MD LAB BLOOD ORDERABLES Final Res ult Performing Organization Address City/[facility]/ZIP Co de Phone Number [facility] [address] [place] [address] [phone] * (ABNORMAL) PSA ([facility]azer, LUCIA, [place]ner, [place], [facility]) (09/13/2024 1:26 PM EDT) Pathologist [facility] PSA diagnostic (ng/mL) <0.13(L) 0.13 - 4 ng/mL 09/13/2024 8:40 PM EDT [facility] Blood Venipuncture / Unknown 09/13/2024 1:26 PM EDT 09/13/2024 1:26 PM EDT Xochitl Serra MD LAB BLOOD ORDERABLES Final Res ult [facility] [address] [id number], [facility] [phone] * (ABNORMAL) CMP (09/13/2024 1:26 PM EDT) Sodium 140 136 - 145 meq/L 09/13/2024 3:48 PM EDT [facility] Potassium 4.5 3.5 - 5.1 meq/L 09/13/2024 3:48 PM EDT [facility] Chloride 101 98 - 107 meq/L 09/13/2024 3:48 PM EDT [facility] CO2 33(H) 21 - 32 meq/L 09/13/2024 3:48 PM EDT [facility] Calcium 9.3 8.5 - 10.1 mg/dL 09/13/2024 3:48 PM EDT [facility] Glucose 237(H) 74 - 100 mg/dL 09/13/2024 3:48 PM EDT [facility] BUN 39(H) 7 - 18 mg/dL 09/13/2024 3:48 PM EDT [facility] Creatinine 1.93(H) 0.70 - 1.20 mg/dL 09/13/2024 3:48 PM EDT [facility] BUN/Creatinine 20 09/13/2024 3:48 PM EDT [facility] Albumin 3.6 3.4 - 5.0 g/dL 09/13/2024 3:48 PM EDT [facility] Alkaline Phosphatase 151(H) 46 - 116 U/L 09/13/2024 3:48 PM EDT [facility] ALT 19 12 - 78 U/L 09/13/2024 3:48 PM EDT [facility] AST 17 15 - 37 U/L 09/13/2024 3:48 PM EDT [facility] Total Bilirubin 0.5 0.2 - 1.0 mg/dL 09/13/2024 3:48 PM EDT [facility] Protein, Total 7.0 6.4 - 8.2 gm/dL 09/13/2024 3:48 PM EDT [facility] Anion Gap 11 11 - 22 09/13/2024 3:48 PM EDT [facility] A/G Ratio 1.1 09/13/2024 3:48 PM EDT [facility] Globulin 3.4 g/dL 09/13/2024 3:48 PM EDT [facility] Osmolality Calc 296.5 mOsm/kg 3:48 PM EDT [facility] eGFR (mL/min/1.73m2) 33(L) >=60 mL/min/1.7 3m2 09/13/2024 3:48 PM EDT [facility] Comment:ESTIMATED GFR IS NOT ACCURATE CREATININE CLEARANCE IN PREDICTING GLOMERULAR FILTRATION RATE. ESTIMATED GFR IS NOT APPLICABLE FOR DIALYSIS PATIENTS. Blood Venipuncture / Unknown 09/13/2024 1:26 PM EDT 09/13/2024 1:26 PM EDT us Xochitl Serra MD LAB BLOOD ORDERABLES Final Res ult Performing Organization Address City/[facility] Co de Phone Number [facility] [address] [place], [place] [address] [phone] * (ABNORMAL) Hemoglobin A1c (03/15/2023 11:20 AM EST) Hemoglobin A1C 6.5(H) 4.2 - 6.3 % 03/15/2023 12:24 PM EST [facility] Comment: Hemoglobin A1C levels are related to mean glucose during the preceding 2-3 months. Less than 7% demonstrates glycemic control in diabetic patients. Hemoglobin AlC % Suggested Diagnosis > or = 6.5 Diabetic 5.7 - 6.4 Prediabetic <5.7 Non-diabetic eAVG Glucose 139.85 mg/dL 03/15/2023 12:24 PM EST [facility] Blood Venipuncture / Unknown 03/15/2023 11:20 AM EST 03/15/2023 11:35 AM EST Eric Parkinson MD LAB BLOOD ORDERABLES Fi nal Result Performing Organization Address City/[facility]/ZIP Co de Phone Number [facility] [address] [phone] from Last 3 Months or Most Recently Relevant to Health Maintenance Insurance [place]ICARE [place] [address] [place] [address] [facility] Advance Directives For more information, please contact: [phone] * Full Code (Latest Code Status on File) Date Activated Date Inactivated Comments 08/16/2023 10:48 AM 08/16/2023 7:35 PM * Full Code Date Activated Date Inactivated Comments 03/21/2023 11:25 AM 03/24/2023 3:00 PM * Full Code Date Activated Date Inactivated Comments 03/21/2023 5:18 AM 03/21/2023 11:25 AM Care Teams Mechanical Design Drafter Relationship Specialty Start Date End Date Christopher Yadav MD [address] [place] [id number] PCP - General General Internal Medicine 03/15/23
--- OUTSIDE RECORDS SUMMARY | 2024-09-25 21:36 | XMS_ITS | Encounter Summary ---
Author Organization [employer] ([place], [place], [place], [place]) Address [address] [place] [address] Care Team Providers Care Records Administrator Name Role Phone Christopher Yadav MD Primary Care Provider [phone] Encounter Details Date Type Department Care Team [...] Date Ehsan rded Speak language other than Ugandan at home Not on file 03/11/2023 Want [...] Description 12/17/2024 9:45 AM EDT Office Visit [place] [facility] - [address] [place] [address] Xochitl Serra MD [facility] [address] [address] documented as of this encounter Visit Diagnoses Not on filedocumented in this encounter Care Teams Records Administrator Relationship Specialty Start Date End Date Christopher Yadav MD [address] [place] [address] [place] [address] PCP - General General Internal Medicine 03/15/23 documented as of this encounter
--- OUTSIDE RECORDS SUMMARY | 2024-09-25 21:36 | XMS_ITS | Encounter Summary ---
Author Organization Healthcare Address [address] [place] [address] Care Team Providers Care Cashier And Salesperson Name Role Phone Christopher Yadav MD Primary Care Provider [phone] Encounter Details Date Type Department Care Team (Late st Contact Info) Description 07/27/2023 Orders Only External Location [address] [place] [address] Provider, External Social History Tobacco Use Types [...] on filedocumented in this encounter Care Teams Cashier And Salesperson Relationship Specialty Start Date End Date Christopher Yadav MD [address] [place] [address] PCP - General 07/11/20 documented as of this encounter
--- OUTSIDE RECORDS SUMMARY | 2024-09-25 21:36 | XMS_ITS | Encounter Summary ---
Author Organization Healthcare Address [address] [place] [address] Care Team Providers Care Web Designer Name Role Phone Christopher Yadav MD Primary Care Provider [phone] Encounter Details Date Type Department Care Team (Late st Contact Info) Description 07/27/2023 Orders Only External Location [address] [place] [address] Provider, External Social History Tobacco Use Types [...] on filedocumented in this encounter Care Teams Web Designer Relationship Specialty Start Date End Date Christopher Yadav MD [address] [facility] [address] [place] [address] PCP - General 07/11/20 documented as of this encounter
--- OUTSIDE RECORDS SUMMARY | 2024-09-25 21:36 | XMS_ITS | Encounter Summary ---
Author Organization [employer] ([place], [place], [place], [place]) Address [address] [place] [address] Care Team Providers Care Personnel Records Clerk Name Role Phone Christopher Yadav MD Primary Care Provider [phone] Encounter Details Date Type Department Care Team (Late st Contact Info) Description 08/04/2023 Surgery Prep [facility] Urology - [address] [address] Samuel Mata MD [address] [address] Elevated PSA (Primary Dx) Social [...] Date Ehsan rded Speak language other than Jamaican at home Not on file 03/11/2023 Want [...] Description 12/17/2024 9:45 AM EDT Office Visit [place] [facility] - [address] [place] [address] Xochitl Serra MD [address] [place] [address] documented as of this encounter Visit Diagnoses Diagnosis Elevated PSA- Primary Elevated prostate specific antigen (PSA) documented in this encounter Care Teams Personnel Records Clerk Relationship Specialty Start Date End Date Christopher Yadav MD [address] [place] [address] PCP - General General Internal Medicine 03/15/23 documented as of this encounter
--- OUTSIDE RECORDS SUMMARY | 2024-09-25 21:36 | XMS_ITS | Encounter Summary ---
Author Organization [employer] ([place], [place], [place], [place]) Address [address] [place] [address] Care Team Providers Care Upkeep Worker Name Role Phone Christopher Yadav MD Primary Care Provider [phone] Encounter Details Date Type Department Care Team ([facility] st Contact Info) Description 08/23/2023 Telephone [place] [facility] - [address] [place] [address] Wanda Peres, [employer] Social History Tobacco Use Types Packs/Day Years [...] Date Ehsan rded Speak language other than Vincentian at home Not on file 03/11/2023 Want [...] Description 12/17/2024 9:45 AM EDT Office Visit [place] [facility] - [address] [place] [address] Xochitl Serra MD [address] [address] documented as of this encounter Visit Diagnoses Not on filedocumented in this encounter Care Teams Upkeep Worker Relationship Specialty Start Date End Date Christopher Yadav MD [address] [place] [address] PCP - General General Internal Medicine 03/15/23 documented as of this encounter
--- OUTSIDE RECORDS SUMMARY | 2024-09-25 21:36 | XMS_ITS | Encounter Summary ---
Author Organization [employer] ([place], [place], [place], [place]) Address [address] [place] [address] Care Team Providers Care Defence Intelligence Analyst Name Role Phone Christopher Yadav MD Primary Care Provider [phone] Encounter Details Date Type Department Care Team [...] Description 12/17/2024 9:45 AM EDT Office Visit [place] [facility] - [address] [place] [address] Xochitl Serra MD [facility] [address] [address] documented as of this encounter Visit Diagnoses Not on filedocumented in this encounter Care Teams Defence Intelligence Analyst Relationship Specialty Start Date End Date Christopher Yadav MD [address] [place] [address] PCP - General General Internal Medicine 03/15/23 documented as of this encounter
--- OUTSIDE RECORDS SUMMARY | 2024-09-25 21:36 | XMS_ITS ---
Author Organization Unknown TREATMENT PLAN [facility] Start Date Provider Encounter for Check-up [id number] [facility]
--- OUTSIDE RECORDS SUMMARY | 2024-09-25 21:36 | XMS_ITS | Encounter Summary ---
Author Organization [employer] ([place], [place], [place], [place]) Address [address] [place] [address] Care Team Providers Care Sample Grader Name Role Phone Christopher Yadav MD Primary Care Provider [phone] Encounter Details Date Type Department Care Team (Late st Contact Info) Description 03/26/2024 Outside Orders [facility] Admitting [address] [place] [address] Jero Vale MD [address] [place] [address] [address] [id number] Anemia (Primary Dx); Secondary hyperparathyroidism of renal [...] Date Ehsan rded Speak language other than Slovak at home Not on file 03/11/2023 Want [...] Description 12/17/2024 9:45 AM EDT Office Visit [facility] - [address] [place] [address] Xochitl Serra MD [address] [address] documented as of this encounter Results * (ABNORMAL) CBC with automated diff (03/26/2024 9:26 AM EST) WBC 9.4 4.8 - 10.8 K/ L 03/26/2024 9:55 AM [facility] RBC 3.16(L) 3.80 - 5.20 M/ L 03/26/2024 9:55 AM [facility] Hemoglobin 10.6(L) 12.8 - 17.4 GM/DL 03/26/2024 9:55 AM [facility] Hematocrit 32.8(L) 39.0 - 51.0 % 03/26/2024 9:55 AM [facility] MCV 104(H) 81 - 101 fL 03/26/2024 9:55 AM [facility] MCH 33.5 27.0 - 34.0 pg 03/26/2024 9:55 AM [facility] MCHC 32.3 32.0 - 36.0 GM/DL 03/26/2024 9:55 AM [facility] RDW 14.8(H) 11.5 - 14.5 % 03/26/2024 9:55 AM [facility] Platelets 252 150 - 400 K/CU MM 03/26/2024 9:55 AM [facility] MPV 9.4 9.4 - 12.4 fL 03/26/2024 9:55 AM [facility] Nucleated Red Blood Cell 0.0 0 - 0.2 % 03/26/2024 9:55 AM [facility] % Neutros 73 37 - 80 % 03/26/2024 9:55 AM [facility] % Lymphs 19 10 - 50 % 03/26/2024 9:55 AM [facility] % Monos 7 5 - 13 % 03/26/2024 9:55 AM [facility] % Eos 0 0 - 7 % 03/26/2024 9:55 AM [facility] % Baso 0 0 - 3 % 03/26/2024 9:55 AM EST [facility] NRBC Absolute <0.01 0 - 0.012 K/ul 03/26/2024 9:55 AM EST [facility] # Neutros 6.82 2.00 - 6.90 K/ L 03/26/2024 9:55 AM EST [facility] # Lymphs 1.78 0.60 - 3.40 K/ L 03/26/2024 9:55 AM EST [facility] # Monos 0.66 0.00 - 0.90 K/ L 03/26/2024 9:55 AM EST [facility] # Eos 0.04 0.00 - 0.70 K/ L 03/26/2024 9:55 AM EST [facility] # Baso 0.02 0.00 - 0.20 K/ L 03/26/2024 9:55 AM EST [facility] Immature Granulocytes-Re lative 0.50 % 03/26/2024 9:55 AM EST [facility] # IG 0.05(H) 0.00 - 0.00 K/uL 03/26/2024 9:55 AM [facility] Blood Venipuncture / Unknown 03/26/2024 9:26 AM EST 03/26/2024 9:46 AM EST Narrative [facility] - 03/26/2024 9:55 AM EST When [...] MD LAB BLOOD ORDERABLES Final Resu lt [facility] [address] [place] [address] * Parathyroid Hormone Intact(SENDOUT) (03/26/2024 9:26 AM EST) Pathologist [facility] Parathyroid Hormone, Intact 62 15 - 65 pg/mL 03/27/2024 8:04 PM EST [email or web address] Comment: Performed By: [employer] [address] [place] [address] [employer]ctor: Cameron Javier MD, PhD CLIA Number: [id number] Blood Venipuncture / Unknown 03/26/2024 9:26 AM EST 03/26/2024 9:46 AM EST Jero Vale MD LAB BLOOD ORDERABLES Final Resu lt Performing Organization Address [facility] Co de Phone Number [email or web address] [address] [id number], [facility] [phone] * Vitamin D, 25-Hydroxy (03/26/2024 9:26 AM EST) [facility] Vitamin D 25-Hydroxy 64.6 30 - 100, >100 Toxic ng/mL 03/26/2024 10:53 AM EST [facility] Blood Venipuncture / Unknown 03/26/2024 9:26 AM EST 03/26/2024 9:47 AM EST Narrative [facility] - 03/26/2024 10:53 AM EST <20 Deficient 20 to 29 Insufficient 30 to 100 Sufficient >100 Toxic Biotin supplements can cause clinically significant incorrect lab results. The FDA has seen an increase in the number of adverse events related to biotin interference with lab tests. Jero Vale MD LAB BLOOD ORDERABLES Final Resu lt [facility] [address] [phone] * Creatinine, random urine (03/26/2024 9:26 AM EST) Pathologist [facility] Creatinine, Ur 44 mg/dL 03/26/2024 10:31 AM EST [facility] Urine URINE SPECIMEN COLLECTION, CLEAN CATCH / Unknown 03/26/2024 9:26 AM EST 03/26/2024 9:45 AM EST Narrative [facility] - 03/26/2024 10:31 AM EST Reference Range: No Normals us Jero Vale MD URINE ORDERABLES Final Result Performing Organization Address City/[facility]/ZIP Co de Phone Number [facility] [address] [place] [address] * Protein, random urine (03/26/2024 9:26 AM EST) Protein, Urine 25 mg/dL 03/26/2024 10:31 AM EST [facility] Comment:No normal reference range established Urine URINE SPECIMEN COLLECTION, CLEAN CATCH / Unknown 03/26/2024 9:26 AM EST 03/26/2024 9:45 AM EST us Jero Vale MD URINE ORDERABLES Final Result Performing Organization Address [facility] Co de Phone Number [facility] [address] [place] [address] * (ABNORMAL) Urinalysis w/Microscopic (03/26/2024 9:26 AM EST) Color, UA Yellow 03/26/2024 10:03 AM EST [facility] Comment:This is a corrected result. Previous result was Straw on 03/26/2024 at 1002 EST Clarity, UA Hazy 03/26/2024 10:03 AM EST [facility] Comment:This is a corrected result. Previous result was Clear on 03/26/2024 at 1002 EST Specific Rifle, UA 1.015 1.002 - 1.030 03/26/2024 10:03 AM EST [facility] pH, UA 6.0 5.0 - 9.0 03/26/2024 10:03 AM EST [facility] Leukocytes, UA 1+(A) Negative 03/26/2024 10:03 AM EST [facility] Nitrite, UA Negative Negative 03/26/2024 10:03 AM [facility] Protein, UA Negative Negative 03/26/2024 10:03 AM [facility] Glucose, UA Negative Negative 03/26/2024 10:03 AM [facility] Ketones, UA Negative Negative 03/26/2024 10:03 AM [facility] Urobilinogen, UA 0.2 mg/dL Normal 03/26/2024 10:03 AM [facility] Bilirubin, UA Negative Negative 03/26/2024 10:03 AM [facility] Blood, UA 3+(A) Negative 03/26/2024 10:03 AM [facility] RBC, UA Too Numerous To Count(A) None Seen, Rare /HPF 03/26/2024 10:03 AM [facility] WBC, UA 10-20(A) None Seen, Occasional , 0-5 /HPF 03/26/2024 10:03 AM [facility] Bacteria, UA Trace(A) None Seen 03/26/2024 10:03 AM [facility] Mucus Trace Trace 03/26/2024 10:03 AM [facility] SQUAMOUS EPITHELIAL Occasional( A) None Seen, Rare /HPF 03/26/2024 10:03 AM [facility] HYALINE CASTS Occasional( A) None Seen, Rare /LPF 03/26/2024 10:03 AM [facility] Specimen Source Urine, Clean Catch 03/26/2024 10:03 AM [facility] Urine URINE SPECIMEN COLLECTION, CLEAN CATCH / Unknown 03/26/2024 9:26 AM EST 03/26/2024 9:45 AM EST us Jero Vale MD URINE ORDERABLES Edited Result - Final [facility] [address] [place], [place] [address] [phone] * (ABNORMAL) Renal Function Panel (03/26/2024 9:26 AM EST) Sodium 141 136 - 145 meq/L 03/26/2024 3:07 PM [facility] Potassium 4.1 3.5 - 5.1 meq/L 03/26/2024 3:07 PM [facility] Chloride 100 98 - 107 meq/L 03/26/2024 3:07 PM [facility] CO2 34(H) 21 - 32 meq/L 03/26/2024 3:07 PM [facility] Creatinine 1.81(H) 0.70 - 1.20 mg/dL 03/26/2024 3:07 PM [facility] Anion Gap 11 11 - 22 03/26/2024 3:07 PM [facility] BUN 42(H) 7 - 18 mg/dL 03/26/2024 3:07 PM [facility] Glucose 145(H) 70 - 99 mg/dL 03/26/2024 3:07 PM [facility] Calcium 9.3 8.5 - 10.1 mg/dL 03/26/2024 3:07 PM [facility] Phosphorus 4.3 2.6 - 4.9 mg/dL 03/26/2024 3:07 PM [facility] Albumin 3.6 3.4 - 5.0 g/dL 03/26/2024 3:07 PM [facility] Osmolality Calc 294.3 3:07 PM [facility] eGFR (mL/min/1.73m2) 36(L) >=60 mL/min/1.7 3m2 03/26/2024 3:07 PM [facility] Comment:ESTIMATED GFR IS NOT ACCURATE CREATININE CLEARANCE IN PREDICTING GLOMERULAR FILTRATION RATE. ESTIMATED GFR IS NOT APPLICABLE FOR DIALYSIS PATIENTS. Blood Venipuncture / Unknown 03/26/2024 9:26 AM EST 03/26/2024 9:47 AM EST us Jero Vale MD LAB BLOOD ORDERABLES Final Resu lt [facility] [address] [place] [address], [facility] [phone] documented in this encounter Visit Diagnoses Diagnosis Anemia- Primary Unspecified anemia Secondary hyperparathyroidism of renal origin (HCC) Secondary hyperparathyroidism (of renal origin) Chronic kidney disease (CKD) stage G3b/A1, moderately decreased glomerular filtration rate (GFR) between 30-44 mL/min/1.73 square meter and albuminuria creatinine ratio less than 30 mg/g (HCC) documented in this encounter Care Teams Sample Grader Relationship Specialty Start Date End Date Christopher Yadav MD [address] [place] [address] PCP - General General Internal Medicine 03/15/23 documented as of this encounter
--- OUTSIDE RECORDS SUMMARY | 2024-09-25 21:36 | XMS_ITS | Encounter Summary ---
Author Organization [employer] ([place], [place], [place], [place]) Address [address] [place] [address] Care Team Providers Care Developmental Writing Instructor Name Role Phone Christopher Yadav MD Primary Care Provider [phone] Reason for Visit * Reason Onset Date Comments Abnormal Imaging Result 09/25/2024 Encounter Details Date Type Department Care Team (Late st Contact Info) Description 09/25/2024 Telephone [facility] - [place] [address] [facility] [address] [place] [address] Mary Jane Marley APRN [address] [facility] [address] [place] [address] Abnormal Imaging Result Social History Tobacco Use Types Packs/Day Years Used Date Smoking Tobacco: Former Cigarettes Q uit: 1981 Smokeless Tobacco: Never Alcohol Use Standard Drinks/Week [...] Date Ehsan rded Speak language other than [place] at home Not on file 03/11/2023 Want [...] encounter Miscellaneous Notes * Telephone Encounter - Mary Jane Marley APRN - 09/25/2024 9:12 AM EDT Returned call to son regarding imaging result at OSH. Dr. Serra reviewed imaging report and compared it to PET from 09/2023. No appreciated change in imaging. PSA is <0.13. Son verbalized understanding. SR documented in this encounter Plan of Treatment Upcoming Encounters Date Type Department Care Team (Late st Contact Info) Description 12/17/2024 9:45 AM EDT Office Visit [facility] - [address] [place] [address] Xochitl Serra MD [address] [facility] [address] [place] [address] documented as of this encounter Procedures Procedure Name Priority Date/Time Associated Diagnosis Comments EXTERNAL IMAGING - CT Routine 09/25/2024 11:14 AM EDT documented in this encounter Results * EXTERNAL IMAGING - CT (09/25/2024 11:14 AM EDT) Anatomical Region Laterality Modality Other us Historical Provider HEALTH MAINTENANCE Final Result documented in this encounter Visit Diagnoses Not on filedocumented in this encounter Care Teams Developmental Writing Instructor Relationship Specialty Start Date End Date Christopher Yadav MD [address] [place] [address] PCP - General General Internal Medicine 03/15/23 documented as of this encounter
--- OUTSIDE RECORDS SUMMARY | 2024-09-25 21:36 | XMS_ITS | Clinical Summary ---
[facility] Organization [facility] Address [address] [place] [address] Care Team Providers Care Load Checker Name Role Phone Christopher Yadav MD Primary Care Provider [phone] Allergies No known active allergies Medications coenzyme Q10 100 MG capsule Take 1 capsule by mouth Daily. Active allopurinol (ZYLOPRIM) 100 MG tablet Take 1 tablet by mouth 2 (two) times a day. Morning and night Active clopidogrel (PLAVIX) 75 MG tablet Take 1 tablet by mouth Daily. Active aspirin 81 MG EC tablet Take 1 tablet by mouth Daily. Active vitamin B-12 (CYANOCOBALAMI N) 1000 MCG tablet Take 1 tablet by mouth Daily. Active polyethylene glycol (MIRALAX) pack packet Take 17 g by mouth Daily. Active acetaminophen (TYLENOL) 325 MG tablet Take 2 tablets by mouth Every 4 (Four) Hours As Needed for Mild Pain . 9 Active amLODIPine (NORVASC) 5 MG tablet Take 1 tablet by mouth Every Night. 30 tablet 9 Active Additional Information Patient taking differently: 2.5 mgOralDaily, Reported on 05/18/2024 famotidine (PEPCID) 20 MG tablet 1 tablet Every Night. Active gabapentin (NEURONTIN) 300 MG capsule 1 capsule in the morning and 2 capsules at night Active glucose blood (Contour Next Test) test strip Use BID; ICD-10 E11.65; Z79.4 200 each 3 3 Active simvastatin (ZOCOR) 40 MG tablet Take 1 tablet by mouth Every Night. 3 Active tamsulosin (FLOMAX) 0.4 MG capsule 24 hr capsule Take 1 capsule by mouth Daily. Active sulfamethoxazo le-trimethopri m (BACTRIM DS,SEPTRA DS) 800-160 MG per tablet Take 160 mg of trimethoprim by mouth. 4 Active hydrALAZINE (APRESOLINE) 10 MG tablet Take 1 tablet by mouth. 4 Active calcitriol (ROCALTROL) 0.25 MCG capsule Take 1 capsule by mouth 3 (Three) Times a Week. 4 Active furosemide (LASIX) 20 MG tablet Take 1 tablet by mouth Every 12 (Twelve) Hours. 4 Active abiraterone acetate (ZYTIGA) 250 MG tablet 5 Active insulin NPH-insulin regular (humuLIN 70/30,novoLIN 70/30) (70-30) 100 UNIT/ML injection Inject 58 Units under the skin into the appropriate area as directed 2 (Two) Times a Day With Meals. 110 mL 1 5 Active predniSONE (DELTASONE) 5 MG tablet Take 1 tablet by mouth Daily. 4 09/09/19 25 Active Problems Problem Noted Date Diagnosed Date Acute urinary retention 07/28/2023 Anemia 07/28/2023 Leg swelling 07/28/2023 Chronic kidney disease 01/07/2022 Assessment & Plan (05/18/2024 11:56 AM EDT): Continue nephrology follow up. Assessment & Plan (05/12/2022 12:10 PM EDT): Continue nephrology follow up. Assessment & Plan (01/07/2022 11:27 AM EST): Continue nephrology follow up. 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 Type 2 diabetes mellitus wit h hypoglycemia without coma, with long-term current use of insulin 01/07/2022 Assessment & Plan (09/29/2022 11:32 AM EDT): Continue CGM Assessment & Plan (05/12/2022 12:19 PM EDT): We discussed CGM today. Assessment & Plan (01/07/2022 11:23 AM EST): Some nocturnal hypoglycemia. Continue to decrease evening insulin dose. Insulin long-term use 12/05/2019 Morbidly obese 12/05/2019 Weakness 11/06/2018 CAD (coronary artery disease) 11/06/2018 Assessment & Plan (05/18/2024 11:52 AM EDT): Continue ASA, plavix and statin. Assessment & Plan (03/08/2023 10:50 AM EST): Continue ASA, plavix, statin. Assessment & Plan (09/29/2022 11:13 AM EDT): Continue ASA, plavix and statin. Assessment & Plan (05/12/2022 12:19 PM EDT): Continue ASA and statin. Assessment & Plan (01/07/2022 11:13 AM EST): Continue ASA, plavix and statin. Hypertension 11/06/2018 Assessment & Plan (05/18/2024 11:52 AM EDT): Hypertension is stable and controlled. Continue current treatment regimen. Blood pressure will be reassessed in 6 months. Assessment & Plan (03/08/2023 10:50 AM EST): Hypertension is unchanged. Continue current treatment regimen. Blood pressure will be reassessed at the next regular appointment. Assessment & Plan (09/29/2022 11:19 AM EDT): Hypertension is unchanged. Continue current treatment regimen. Blood pressure will be reassessed at the next regular appointment. Assessment & Plan (05/12/2022 12:10 PM EDT): Hypertension is improving with treatment. Continue current treatment regimen. Blood pressure will be reassessed at the next regular appointment. Assessment & Plan (01/07/2022 11:12 AM EST): Hypertension is improving with treatment. Continue current treatment regimen. Blood pressure will be reassessed at the next regular appointment. Assessment & Plan (08/12/2021 2:15 PM EDT): Hypertension is unchanged. Continue current treatment regimen. Blood pressure will be reassessed at the next regular appointment. Assessment & Plan (10/30/2020 11:38 AM EDT): Hypertension is unchanged. BP at home has been better. Continue current treatment regimen. Blood pressure will be reassessed at the next regular appointment. Assessment & Plan (06/18/2020 11:31 AM EDT): Hypertension is unchanged. Continue current treatment regimen. Blood pressure will be reassessed at the next regular appointment. Assessment & Plan (03/06/2020 11:00 AM EST): Hypertension is unchanged. Continue current treatment regimen. Blood pressure will be reassessed in 3 months. Assessment & Plan (12/05/2019 11:05 AM EDT): Hypertension is unchanged. Continue current treatment regimen. Blood pressure will be reassessed in 3 months. BP borderline. Monitor BP at home. Acute renal failure (ARF) 11/06/2018 Hyperlipidemia 11/06/2018 Assessment & Plan (05/18/2024 11:52 AM EDT): Continue statin. Check non-fasting lipids today. Assessment & Plan (03/08/2023 10:57 AM EST): Continue statin. Lipids okay last visit. Assessment & Plan (09/29/2022 11:29 AM EDT): Continue statin. Check lipids today. Assessment & Plan (05/12/2022 12:18 PM EDT): Continue statin. Plan to check lipids next visit. Assessment & Plan (01/07/2022 11:27 AM EST): Continue statin. 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 Assessment & Plan (08/12/2021 2:15 PM EDT): Continue statin. Assessment & Plan (10/30/2020 11:38 AM EDT): Continue statin. Assessment & Plan (06/18/2020 11:31 AM EDT): Continue statin. Uncontrolled type 2 diabetes mellitus with hyper glycemia 11/06/2018 Assessment & Plan (05/18/2024 11:55 AM EDT): Diabetes is stable. Continue current treatment regimen. Diabetes will be reassessed in 6 months. FreeStyle Iqra 2 CGM was downloaded today. Data was reviewed from 05/05/24 to 05/18/24. This showed good overnight glucose. Some postprandial spikes but not enough to increase insulin at this time. Time in range was 67%. Assessment & Plan (03/08/2023 10:57 AM EST): Diabetes is unchanged. Continue current treatment regimen. Diabetes will be reassessed in 3 months. Assessment & Plan (09/29/2022 11:31 AM EDT): Diabetes is unchanged. Continue current treatment regimen. Diabetes will be reassessed in 3 months. FreeStyle Iqra 2 CGM was downloaded today. Data was reviewed from 09/16/22 to 09/29/22. This showed some postprandial spikes but acceptable for him. I don't want to be more aggressive with insulin due to risk of hypoglycemia. Assessment & Plan (05/12/2022 12:14 PM EDT): Diabetes is unchanged. Continue current treatment regimen. Diabetes will be reassessed in 3 months. He asks about CGM. Will send Rx to see if this covered. Assessment & Plan (01/07/2022 11:17 AM EST): Diabetes is unchanged. A1c looks good at 6.7%. Continue current treatment regimen. Diabetes will be reassessed in 3 months. Assessment & Plan (08/12/2021 2:14 PM EDT): Diabetes is unchanged. A1c okay at 6.7%. Continue current treatment regimen. Diabetes will be reassessed in 3 months. Assessment & Plan (10/30/2020 11:37 AM EDT): Diabetes is unchanged. Continue current treatment regimen. Diabetes will be reassessed in 3 months. Assessment & Plan (06/18/2020 11:30 AM EDT): Diabetes is improving with treatment. Continue current treatment regimen. Diabetes will be reassessed in 3 months. Assessment & Plan (03/06/2020 10:59 AM EST): Diabetes is worsening. Continue current treatment regimen. Diabetes will be reassessed in 3 months. A1c has crept up. He will try to get back on track with diet. Wasn't as good over the holidays. Assessment & Plan (12/05/2019 11:05 AM EDT): Diabetes is improving with treatment. Continue current treatment regimen. Discussed ways to avoid symptomatic hypoglycemia. Diabetes will be reassessed in 3 months A1c at goal.. Resolved Problems Problem Noted Date Diagnosed Date Resolved Date Hyperkalemia 11/06/2018 11/13/2018 Family History Medical History Relation Name Comments Cerebral aneurysm Father Diabetes Mother Heart disease Mother Skin cancer Mother Relation Name Status Comments Father (Age 55) Mother (Age 92) Social History Tobacco Use Types Packs/Day Years Used Date Smoking Tobacco: Former Smokeless Tobacco: Never Tobacco Cessation:Counseling Given: Not Answered Comments:quit 1980 Alcohol Use Standard Drinks/Week Comments No 0 (1 standard drink = 0.6 oz pur e alcohol) AUDIT-C Answer Date Recorded Q1: How often do you have a drink containing alcohol? Never 07/28/2023 Q2: How many drinks containi ng alcohol do you have on a typical day when you are drinking? Patient does not drink Q3: How often do you have si x or more drinks on one occasion? Never 07/28/2023 Abuse Screen Answer Date Recorded Feels Unsafe at Home or Work/School no 07/27/2023 Feels Threatened by Someone no 06/29 Does Anyone Try to Keep You From Having Contact with Others or Doing Things Outside Your Home? no 07/27/2023 Physical Signs of Abuse Present no 07/27/2023 Housing Stability Answer Date Recorded Current Living Arrangements home 06/30 Potentially Unsafe Housing Conditions none 07/28/2023 Disabilities Answer Date Recorded Difficulty Concentrating, Remembering or Making Decisions no 07/28/2023 Difficulty Managing Errands Independently no 07/28/2023 Education Answer Date Recorded Help with school or training? Not on file Preferred Language Zimbabwean 07/28/2023 Sex and Gender Information Value Date Recorded Sex Assigned at Not on file Legal Sex Male 1:45 PM EDT Gender Identity Not on file Sexual Orientation Not on file Last Filed Vital Signs Vital Sign Reading Time Taken Comments Blood Pressure 116/73 05/18/2024 11:23 AM EDT Pulse 72 05/18/2024 11:23 AM EDT Temperature 36.1 C (97 F) 07/28/2023 11:58 AM EDT Respiratory Rate 18 07/28/2023 11:58 AM EDT Oxygen Saturation 97% 05/18/2024 11:23 AM EDT Inhaled Oxygen Concentration - - Weight 120 kg (265 lb) 05/18/2024 11:23 AM EDT Height 182.9 cm (6') 05/18/2024 11:23 AM EDT Body Mass Index 35.94 05/18/2024 11:23 AM EDT Plan of Treatment Upcoming Encounters Date Type Department Care Team (Late st Contact Info) Description 12/19/2024 11:00 AM EDT Office Visit [facility] [address] [phone] Daniel Vasquez MD [address] [facility] [address] [place] [address] Health Maintenance Due Date Last Done Comments DIABETIC FOOT EXAM 1950 ZOSTER VACCINE (1 of 2) 1988 TDAP/TD VACCINES (2 - Tdap) 01/17/2008 01/16/1998 RSV Vaccine - Adults (1 - 1- dose 75+ series) 2013 Pneumococcal Vaccine 50+ (2 of 2 - PCV) 12/16/2017 12/16/2016, 12/03/2015 ANNUAL WELLNESS VISIT 11/14/2018 DIABETIC EYE EXAM 05/20/2023 05/19/2022 COVID-19 Vaccine (2023-2 5 season) 2023 02/03/2023, 12/22/2021, 06/25/2021, Additional history exists HEMOGLOBIN A1C 11/18/2024 05/18/2024, 10/29, 03/15/2023, Additional history exists INFLUENZA VACCINE 11/28/2024 01/09/2024, , 12/03/2015 LIPID PANEL 05/18/2025 05/18/2024, 09/29/2022 URINE MICROALBUMIN-CREATININ E RATIO (uACR) 05/18/2025 05/18/2024 Procedures Procedure Name Priority Date/Time Associated Diagnosis Comments MICROALBUMIN / CREATININE URINE RATIO Routine 05/18/2024 12:04 PM EDT Uncontrolled type 2 diabetes mellitus with hyperglycemia LIPID PANEL Routine 05/18/2024 12:04 PM EDT Uncontrolled type 2 diabetes mellitus with hyperglycemia POCT GLYCOSYLATED HEMOGLOBIN (HGB A1C) Routine 05/18/2024 11:48 AM EDT Uncontrolled type 2 diabetes mellitus with hyperglycemia SCANNED - EYE EXAM 05/19/2022 from Last 3 Months or Most Recently Relevant to Health Maintenance Results * (ABNORMAL) Microalbumin / Creatinine Urine Ratio - Urine, Clean Catch (05/18/2024 12:04 PM EDT) Microalbumin/C reatinine Ratio 57.7(H) 0.0 - 29.0 mg/g 05/19/2024 12:48 AM EDT [facility] Creatinine, Urine 53.7 mg/dL 05/19/2024 12:48 AM EDT [facility] Microalbumin, Urine 3.1 mg/dL 05/19/2024 12:48 AM EDT [facility] Urine Urine specimen obtained by clean catch procedure / Unknown Collection / Unknown 05/18/2024 12:04 PM EDT 05/18/2024 12:04 PM EDT Daniel Vasquez MD URINE ORDERABLES Final Re sult [facility]
[address] [place] [address], * (ABNORMAL) Lipid Panel (05/18/2024 12:04 PM EDT) Total Cholesterol 130 0 - 200 mg/dL 05/18/2024 11:44 PM EDT [facility] Triglycerides 66 0 - 150 mg/dL 05/18/2024 11:44 PM EDT [facility] HDL Cholesterol 61(H) 40 - 60 mg/dL 05/18/2024 11:44 PM EDT [facility] LDL Cholesterol 55 0 - 100 mg/dL 05/18/2024 11:44 PM EDT [facility] VLDL Cholesterol 14 5 - 40 mg/dL 05/18/2024 11:44 PM EDT [facility] LDL/HDL Ratio 0.91 05/18/2024 11:44 PM EDT [facility] Blood Structure of left upper limb / Unknown Venipuncture / Unknown 05/18/2024 12:04 PM EDT 05/18/2024 12:04 PM EDT Narrative [facility] - 05/18/2024 11:44 PM EDT Cholesterol Reference Ranges (U.S. Department of Health and Human Services ATP III Classifications) Desirable <200 mg/dL Borderline High 200-239 mg/dL High Risk >240 mg/dL Triglyceride Reference Ranges (U.S. Department of Health and Human Services ATP III Classifications) Normal <150 mg/dL Borderline High 150-199 mg/dL High 200-499 mg/dL Very High >500 mg/dL HDL Reference Ranges (U.S. Department of Health and Human Services ATP III Classifications) Low <40 mg/dl (major risk factor for CHD) High >60 mg/dl ('negative' risk factor for CHD) LDL Reference Ranges (U.S. Department of Health and Human Services ATP III Classifications) Optimal <100 mg/dL Near Optimal 100-129 mg/dL Borderline High 130-159 mg/dL High 160-189 mg/dL Very High >189 mg/dL LDL is calculated using the NIH LDL-C calculation. us Daniel Vasquez MD LAB BLOOD ORDERABLES [facility] Result Performing Organization Address City/[facility]/ZIP Co de Phone Number [facility]
[address] [place] [address], * (ABNORMAL) POC Glycosylated Hemoglobin (Hb A1C) (05/18/2024 11:48 AM EDT) [facility] Hemoglobin A1C 7.0(A) 4.5 - 5.7 % [facility] Lot Number [id number] [facility] Expiration Date 01/03/26 [facility] Blood 05/18/2024 11:4 8 AM EDT Daniel Vasquez MD POINT OF CARE TEST ORDERA BLES Final Result Performing Organization Address [facility] Co de Phone Number [facility]
[address] [place] [address], [place] [phone] * SCANNED - EYE EXAM (05/19/2022) Anatomical Region Laterality Modality Other us Daniel Vasquez MD CHART REVIEW TABS [place] [facility] Result from Last 3 Months or Most Recently Relevant to Health Maintenance Insurance MEDICARE A & B [facility] SUPP Advance Directives * CPR (Attempt to Resuscitate) (Latest Code Status on File) Date Activated Date Inactivated Comments 07/28/2023 2:18 AM 07/28/2023 4:16 PM Question Answer Comments Code Status (Patient has no pulse and is not breathing): CPR (Attempt to Resuscitate) Medical Interventions (Patie nt has pulse or is breathing): Full Support Level Of Support Discussed With: Patient * CPR (Attempt to Resuscitate) Date Activated Date Inactivated Comments 11/06/2018 9:01 PM 11/13/2018 6:43 PM Question Answer Comments Code Status (Patient has no pulse and is not breathing): CPR (Attempt to Resuscitate) Medical Interventions (Patie nt has pulse or is breathing): Full Care Teams Load Checker Relationship Specialty Start Date End Date Christopher Yadav MD [address] [facility] [address] [facility] [address] PCP - General Internal Medicine 07/27/23
--- OUTSIDE RECORDS SUMMARY | 2024-09-25 21:36 | XMS_ITS | Encounter Summary ---
Author Organization Healthcare Address [address] [place] [address] Care Team Providers Care Assignment Editor Name Role Phone Christopher Yadav MD Primary Care Provider Encounter Details Date Type Department Care Team (Late st Contact Info) Description 07/27/2023 Orders Only External Location [address] [place] [address] Provider, External Social History Tobacco Use Types [...] on filedocumented in this encounter Care Teams Assignment Editor Relationship Specialty Start Date End Date Christopher Yadav MD [address] [place] [facility] [address] [place] [address] PCP - General 07/11/20 documented as of this encounter
--- OUTSIDE RECORDS SUMMARY | 2024-09-25 21:36 | XMS_ITS ---
Author Organization [employer] ([place], [place], [place], [place]) Address [address] [place] [address] Care Team Providers Care Manager Copy Name Role Phone Christopher Yadav MD Primary Care Provider [phone] Active Problems Problem Noted Date Diagnosed Date [...] treatments are documented for this patient in [facility]. Treatments may have been administered in another system.
--- OUTSIDE RECORDS SUMMARY | 2024-09-25 21:36 | XMS_ITS | Clinical Summary ---
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
--- OUTSIDE RECORDS SUMMARY | 2024-09-25 21:36 | XMS_ITS | Data Portability ---
Author Organization [facility] Address [address] [place] [address] Assessment Encounter Date Assessment Date Assessment LastModified [...] 013 radha Jackson MD, [address], [address], [address], 3 11:35:20 Procedures None recorded. Surgeries None recorded. Imaging rhythm strip electroca rdiogram 2012 013 [facility], [address] [place], [address], 3 10:44:49 Medication Orders Rocephin 1 gram solution for injection 2012 013 Not available 3 12:01:45 dexametha sone sodium phosphate 4 mg/mL injection solution 2012 013 Not available 3 12:01:46 doxycycli ne hyclate 100 mg tablet 2012 013 INTERFACE [facility] [place], [address], 3 12:02:17 Valtrex 1 gram tablet 2012 013 INTERFACE [facility] [address] [place], [address], 3 14:02:35 dexametha sone sodium phosphate 4 mg/mL injection solution 2012 013 Not available 3 13:57:22 cephalexi n 500 mg capsule 2012 013 [facility] [address] [place], [address], 3 09:59:23 Bactroban 2 % topical ointment 2012 013 [facility] [address] [place], [address], 3 09:59:23 Patient TargetsNo targets recorded. Patient Instructions Encounter Date Encounter Id Patient Instructions Last Modified By Organization Details Last Modified Time 09/29/2012 [id number] Mr Palmer has significant fatigue issues and has not had a cardiac evaluation since his stent about a year ago. This warrants an EKG and a cardiology evaluation. We will refer him to [facility] cariology group, Dr Jackson. Also he [...] when tired. Not available 09/29/2012 10:44:48 01/04/2013 [id number] shingles: care instructions Not available 01/04/2013 14:00:58 [...] get the vaccine at a local [facility] pharmacy as it is available there and covered by Medicare. Not available 01/04/2013 13:57:23 Reason for Referral Referring Physician: Naty Amaya, Family Medicine, Encounter Date: 09/29/2012 Results Created Date Observation Date Name Description Value Unit Range Abnormal Flag Note LastModifiedBy Organization Detail LastModifiedTime 09/30/19 13 10/01/2012 venkatesh woods am see copy ekg Not Available [facility] [place] [facility], [place], [address], 09/29/2012 10:44:49 09/26/19 13 09/26/2012 uric acid, serum uric acid 5.8 mg/dL 4.0-8. 0 normal thera peuti c targe t for gout patie nts: <6.0 mg/dL Not Available [facility] [address], [place], [address], 09/26/2012 06:14:11 05/18/19 14 05/11/2013 imagi ng/di [...] [facility] 3 10:15:28 Herpes zoster 6510005 Active Naty Amaya MD [address], [address] , [place] [facility] 3 13:59:10 Bronchitis 80837714 Active Naty Amaya MD [address], [address] , [facility] 3 12:01:45 Cellulitis and abscess of toe 279806745 Active Not Available [facility] 3 03:01:06 Onychomycosis due to dermatophyte 967128909 Active Not Available [facility] 3 03:01:06 Gastroesophag eal reflux disease 217373981 Active Not Available [facility] 3 03:01:06 Uric acid urolithiasis 430424632 Active Not Available [facility] 3 03:01:06 Type 2 diabetes mellitus without complication 677997194 Active Not Available [facility] 3 03:01:06 Superficial injury of foot and toe(s) 341298736 Active Not Available [facility] 3 03:01:06 Benign essential hypertension 4293840 Active Not Available [facility] 3 03:01:06 Hyperlipidemi a 26212217 Active Not Available [facility] 3 03:01:06 Coronary atheroscleros is 943620502 Active Not Available [facility] 3 03:01:06 Disorder of nervous system due to type 2 diabetes mellitus 583669915 Active Not Available [facility] 3 03:01:06 Malaise and fatigue 698621084 Active Not Available [facility] 3 03:01:06 Heart disease 78819059 Active Not Available [facility] 3 03:01:06 Problem Notes None recorded. Procedures Surgical History Date Name Laterality Status Provider Name and Address Organization Details Recorded Time 9 Colonoscopy completed Naty Amaya MD 2017 [facility], [address], [place], [address], [facility] 01/04/2013 13:59:10 [...] Not Available Not Available Not Available [employer] 31 gauge x 1/4 active Not Available [...] Details Last Updated DateTime 3 184.15 cm 941377. 194299 g 33.2 kg/m2 66 /min 97 % 97 % 97 [degF] 180/82 mm[Hg] [facility] 3 11:32:30 Date Recorded Body height Body weight Body mass index (BMI) Heart rate Oxygen saturation Oxygen saturation in Arterial blood by Pulse oximetry Body temperature Systolic And Diastolic Provider Name and Address Organization Details Last Updated DateTime 3 184.15 cm 440129. 363787 g 34.8 kg/m2 59 /min 98 % 98 % 97 [degF] 140/71 mm[Hg] Olesya [facility] 3 09:07:15 Date Recorded Oxygen saturation Oxygen saturation in Arterial blood by Pulse oximetry Body weight Body temperature Heart rate Body mass index (BMI) Body height Systolic And Diastolic Provider Name and Address Organization Details Last Updated DateTime 4 96 % 96 % 986383. 815598 g 97.4 [degF] 72 /min 34.9 kg/m2 185.42 cm 160/79 mm[Hg] Thalia Spencer [facility] 4 11:29:55 Date Recorded Body height Body weight Body mass index (BMI) Heart rate Oxygen saturation Oxygen saturation in Arterial blood by Pulse oximetry Body temperature Systolic And Diastolic Provider Name and Address Organization Details Last Updated DateTime 3 184.15 cm 120331. 968730 g 35.3 kg/m2 84 /min 96 % 96 % 98 [degF] 136/72 mm[Hg] [facility] 3 12:41:48 Date Recorded Body height Body weight Body mass index (BMI) Heart rate Oxygen saturation Oxygen saturation in Arterial blood by Pulse oximetry Body temperature Systolic And Diastolic Provider Name and Address Organization Details Last Updated DateTime 2 184.15 cm 249880. 269450 g 33.9 kg/m2 64 /min 96 % 96 % 97.1 [degF] 133/68 mm[Hg] [facility] 2 11:37:02 Date Recorded Body height Body weight Body mass index (BMI) Heart rate Oxygen saturation Oxygen saturation in Arterial blood by Pulse oximetry Body temperature Systolic And Diastolic Provider Name and Address Organization Details Last Updated DateTime 3 184.15 cm 230718. 569355 g 35.6 kg/m2 96 /min 96 % 96 % 98.2 [degF] 127/68 mm[Hg] [facility] 3 10:51:36 Social History Question Answer Notes LastModified by Organizat ion Details LastModified Time Tobacco Smoking Status Former Smoker Not Available [facility] 12/25/2019 03:11:18 Do You Have An Advance Directive? No [id number] Information not available 12/25/2019 Animal Exposure? No Informat ion not available 09/29/2012 Auto Related Injury? No Information not available 09/29/2012 Is Blood Transfusion Acceptable In An Emergency? Yes [id number] Information not available 12/25/2019 What Is Your Level Of Caffeine Consumption? Occasional [id number] Information not available 12/25/2019 How Much Tobacco Do You Chew? None [id number] Information not available 12/25/2019 Diabetes Yes Information no t available 09/29/2012 What Type Of Diet Are You Following? REGULAR [id number] Information not available 12/25/2019 Education 12 Information no t available 09/29/2012 Family History Of Heart Disease? Yes Information not available 09/29/2012 Which Of Your Hands Is Dominant? Right [id number] Information not available 12/25/2019 High Blood Pressure Yes Information not available 09/29/2012 High Cholesterol No Informat ion not available 09/29/2012 Live Alone Or With Others? With Others Information not available 09/29/2012 Marital Status Informatio n not available 09/29/2012 How Many Children Do You Have? 3 [id number] Information not available 12/25/2019 Do You Use Your Seat Belt Or Car Seat Routinely? Yes [id number] Information not available 12/25/2019 Seat Belts Used Routinely Yes Information not available 09/29/2012 Smoke Alarm In Home Yes Information not available 09/29/2012 General Stress Level Medium Information not available 09/29/2012 Do You Use Sunscreen Routinely? No [id number] Information not available 12/25/2019 Work Related Injury? No Information not available 09/29/2012 Sex: Unknown Functional Status Question Answer Note LastModified by Organizat ion Details LastModified Time What is your level of alcohol consumption? None [id number] Information not available 12/25/2019 Are you currently employed? No [id number] Information not available 12/25/2019 Are you able to care for yourself independently? Yes [id number] Information not available 12/25/2019 What is your occupation? RETIRED Information not available 09/29/2012 What is your exercise level? Occasional [id number] Information not available 12/25/2019 Mental Status None recorded. Family History Relationship Description Onset Age of this Age Resolved Age Notes LastModified by Organization Details LastModified Time Mother Diabetes mellitus 92 previo usly record ed as Diabet es [email or web address] [id number] Not available 11/26/2012 03:00:56 Mother Heart disease previo usly record ed as Heart Proble m [id number] [id number] Not available 11/26/2012 03:00:56 Father Problem 55 CEREBR AL HEMMOR BELLA (previ ously record ed as Other) Not available 11/26/2012 03:00:56 Medical History Condition Response Coronary Artery Disease N Gout N Kidney Stones N Blood Diseases N Hyperthyroidism N COPD N Hypothyroidism N Depression N Developmental or Behavioral Disorders N Eczema, [...] virus, trivalent, preservative 1 completed Not Available [facility] 03/17/2019 02:12:10 Pneumococcal conjugate PCV 13 4 completed [facility] 11/05/2013 16:27:01 Influenza, split virus, trivalent, preservative 2 completed Not Available [facility] 03/17/2019 02:12:10 pneumococcal, unspecified formulation 3 completed Naty Amaya MD [address], [address], [facility] 01/04/2013 13:57:23 Influenza, split virus, trivalent, preservative 3 completed Naty Amaya MD [address], [address], [facility] 01/04/2013 13:57:23 DTaP 3 completed Naty Amaya MD [address], [address], [facility] 01/04/2013 14:00:17 Past Encounters Encounter ID Performer Location Encounter Start Date Encounter Closed Date Diagnosis/Indication Diagnosis SNOMED-CT Code Diagnosis ICD10 Code Diagnosis Note [id number] Lloyd Padron MD [address] [id number] 02/02/2011 08:42:27 02/02/2011 16:45:56 [id number] Naty Amaya MD [address] [id number] 03/19/2011 13:56:10 03/19/2011 15:05:38 [id number] Lloyd Padron MD [address] [id number] 05/21/2011 08:50:03 05/21/2011 10:45:03 [id number] Lloyd Padron MD [address] [id number] 09/13/2011 08:17:06 09/13/2011 09:52:28 [id number] Lloyd Padron MD [address] [id number] 10/11/2011 15:13:44 10/11/2011 16:27:38 [id number] Lloyd Padron MD [address] [id number] 01/13/2012 11:27:25 01/13/2012 16:04:55 [id number] Naty Amaya MD [address] [id number] 04/28/2012 11:30:13 04/28/2012 17:45:29 [id number] Naty Amaya MD [address] [id number] 09/29/2012 09:02:36 09/29/2012 12:00:04 [id number] Naty Amaya MD [address] [address] 01/04/2013 12:40:14 01/04/2013 14:31:25 Herpes zoster 1031544 [id number] Naty Amaya MD [address] [address] 02/26/2013 10:45:07 02/27/2013 08:15:53 Bronchitis 59265222 Health Concerns Section Related Observation LastModified by Organization Detai ls LastModified Time None Recorded Concern Status LastModified by Organization Details LastModified Time None Recorded Advance Directives Directive N: Payers Insurance Date Sequence Insurance Name Policy Number Policy Rocha Covered Member ID Rocha Member ID Guarantor Name 11/05/2013 2 [place]MEDICARE SUPPLE[place]) [id number] Braeden Palmer [id number] Braeden Palmer 11/05/2013 1 [place] Braeden Palmer [id number] Braeden Palmer Notes Date Note Type Note Provider Name and Address Organization Details Recorded Time 02/23/2012 text/plain James Palmerne January 13, 2012 CHIEF COMPLAINT: Cough, cold, [...] hours. Lloyd Padron M.D. JLF/pts Not Available [facility] 09/22/2012 04:35:51
--- NOTE | 2024-09-25 21:52 | XR_ITS ---
PROCEDURE INFORMATION: Exam: XR Chest Exam date and time: 09/25/2024 9:58 PM Age: 84 years old Clinical indication: Dyspnea TECHNIQUE: Imaging protocol: Radiologic exam of the chest. Views: 1 view. COMPARISON: 1. CT ANGIO CHEST PE PROTOCOL 09/23/2024 11:15 AM 2. CHEST RADIOGRAPHS 12/28/2023 FINDINGS: Lungs: No consolidation. Pleural spaces: No pleural effusion. No pneumothorax. Heart/Mediastinum: Stable cardiomediastinal contours. Bones/joints: No acute findings. IMPRESSION: No acute findings.
--- NOTE | 2024-09-25 21:55 | HMH.EDGENADL ---
Discharge Plan Disposition Patient Disposition: Admitted Clinical Impressions Clinical Impression: Heart failure Respiratory failure Qualifiers: Chronicity: acute Respiratory failure complication: hypoxia Qualified Code(s): J96.01 - Acute respiratory failure with hypoxia Discharge ED Provider: Ceferino Menendez General Adult HPI <Ean Patel DO - Last Filed: 09/26/24 00:49> General Chief complaint: Weakness Stated complaint: Weakness,SOA Time Seen by Provider: 09/25/24 21:52 Mode of Arrival: Wheelchair Source of Information: Patient and Relative Description of Symptoms (Recalled from ER Triage Doc. by RN): Was discharged from here yesterday for weakness, today having weakness and SOA again. Low O2 saturation at home. Does NOT wear oxygen at baseline. History of Present Illness HPI narrative: This is an 84-year-old male patient, with past medical history of type 2 diabetes, metastatic prostate cancer, hyperlipidemia, and CAD status post stenting, who is presenting to the emergency department today for evaluation of hypoxia. Patient was most recently admitted to the hospital for acute hypoxic respiratory failure in the setting of a heart failure exacerbation. During this admission he had a CTA of his chest that was negative for pulmonary emboli but did show sclerotic foci within the thoracic vertebral bodies for which metastasis could not be excluded. The patient did undergo an echo that showed a reduction in RV function as well as mild biatrial dilation with mild aortic stenosis and much regurgitation. The patient was medically optimized and diuresed with Lasix and was ultimately able to be discharged home. Since discharge home the patient has had increasing dyspnea. His family states that he is unable to walk more than 5-10 steps at a time without experiencing significant increased work of breathing with having to sit down. They state that while sitting down he has spontaneous oxygen desaturations into the low 80s. When he walks he also has oxygen desaturations into the low 80s. The lower extremity edema that he was experiencing during his last admission has persisted and not decreased, and he has had worsening fatigue with functional decline. The patient tells me that in addition to the symptoms he is also experiencing some abdominal distention with discomfort. He has not had any nausea, vomiting, or diarrhea. He is currently also denying chest pain. He is not experiencing fevers, however he is experiencing chills which are new. Related Data Home Medications ?Medication ?Instructions ?Recorded ?Confirmed aspirin 81 mg tablet,delayed 81 mg PO DAILY 10/19/18 09/25/24 release (Adult Low Dose Aspirin) pantoprazole 40 mg tablet,delayed 40 mg PO DAILY 09/23/24 09/25/24 release Previous Rx's ?Medication ?Instructions ?Recorded simvastatin 40 mg tablet 40 mg PO HS #90 tabs 04/23/24 calcitriol 0.25 mcg capsule 0.25 mcg PO MOWEFR #36 caps 05/04/24 tamsulosin 0.4 mg capsule 0.4 mg PO HS #90 caps 05/15/24 clopidogrel 75 mg tablet 75 mg PO DAILY #90 tabs 07/06/24 gabapentin 300 mg capsule 300 mg PO TID #270 caps 07/06/24 hydralazine 10 mg tablet 20 mg (2 x 10 mg) PO BID #180 tabs 07/09/24 allopurinol 100 mg tablet 100 mg PO BID #180 tabs 08/06/24 famotidine 20 mg tablet 20 mg PO DAILY #90 tabs 09/12/24 furosemide 40 mg tablet (Lasix) 80 mg (2 x 40 mg) PO BIDL 30 days 09/24/24 #120 tabs insulin human U-100 NPH-regulr 55 unit (0.55 mL) SQ BID 30 days 09/24/24 70-30 mix 100 unit/mL subcutaneous #0 mL susp (Novolin 70/30 U-100 Insulin) Allergies Allergy/AdvReac Type Severity Reaction Status Date / Time No Known Allergies Allergy Verified 07/09/24 11:45 [facility] <Ean Patel DO - Last Filed: 09/26/24 00:49> [facility] Disclaimer: The information contained in this section may have been updated after the patient was seen, as this information can be updated by other users. Medical History GERD (gastroesophageal reflux disease) Bruise of toe Hypertension Ingrown nail of great toe of left foot Postoperative dehiscence of skin wound Blister of fifth toe, left Encounter for dialysis Tear of retina History of COVID-19 History of cataract Edema Osteomyelitis of toe of left foot Other specified symptoms and signs involving the circulatory and respiratory systems Cellulitis of left foot Renal disease HTN (hypertension), benign HLD (hyperlipidemia) T2DM (type 2 diabetes mellitus) Coronary artery disease Anxiety Pain around toenail Onychomycosis Surgical History Hx of cataract surgery Hx of colonoscopy History of surgery History of coronary artery stent placement Hx of cardiac cath Family History Other Diabetes Heart attack Social History Smoking Status: Former smoker tobacco type: cigarettes alcohol intake: never substance use type: denies use current occupational status: retired Travel in the last 8 weeks?: None Have you lived/traveled outside [place] in past 30 days?: No Contact w/someone who lives/traveled outside US past 30 days?: No Exposure to someone with infectious disease in past 14 days?: No Do you have a fever (greater than 100.4 F or 38 C)?: No Have you tested positive for COVID-19?: No Exposed to someone with COVID-19 in past 14 days?: No Do you have a sore throat?: No Do you have a cough?: No Do you have any weakness?: No Do you have any diarrhea?: No Are you experiencing any unusual bleeding?: No Do you have any muscle aches/pain?: No Do you have any abdominal pain?: No Are you experiencing loss of taste or smell?: No Other Medical History Have you received the Flu Vaccine for this season: No Have you received the Pneumonia Vaccine: No <Ean Patel DO - Last Filed: 09/26/24 00:49> ROS Obtained: Yes Systems reviewed as appropriate & no additional complaints except as documented Physical Exam <DO Ministerio Garzon Last Filed: 09/26/24 00:49> General General appearance: alert and in no apparent distress Head Head exam: atraumatic and normocephalic Eye Eye exam: Present normal appearance and PERRL Chest Chest inspection: Present normal inspection and symmetric chest wall rise Respiratory Respiratory exam: Absent respiratory distress Cardiovascular Cardiovascular exam: Present regular rate and normal rhythm Abdominal Exam Abdominal exam: Present distention and tenderness Neurological Exam Neurological exam: Present alert and oriented X3 Medical Decision Making <Ean Patel DO - Last Filed: 09/26/24 00:49> Medical Records Medical records reviewed: Yes I reviewed the patient's medical records. Screening: Per USPSTF and CDC recommendations, given the prevalence of disease in our region, it is our hospital?s policy to screen for HIV and viral Hepatitis for all patients aged 18 and over and those with ongoing risk factors. Carlos Inquiry Pt receiving controlled substance: No Carlos was queried for this patient: No Vital Signs: 09/25/24 21:30 09/25/24 21:59 09/25/24 22:00 Temperature 98.4 F Temperature Source Oral Pulse Rate 86 84 Pulse Rate [Radial] 94 H Respiratory Rate 18 Blood Pressure 111/47 L 116/51 L Blood Pressure [Right Arm] 131/63 Blood Pressure Mean 68 68 Blood Pressure Mean [Right Arm] 85 02 Sat by Pulse Oximetry 92 L 90 L 92 L Oxygen Delivery Method Room Air Oxygen Flow Rate (LPM) 09/25/24 22:30 09/25/24 23:21 09/25/24 23:30 Temperature Temperature Source Pulse Rate 83 84 82 Pulse Rate [Radial] Respiratory Rate Blood Pressure 130/54 L 126/60 126/61 Blood Pressure [Right Arm] Blood Pressure Mean 73 73 82 Blood Pressure Mean [Right Arm] 02 Sat by Pulse Oximetry 88 L 97 95 Oxygen Delivery Method Room Air Nasal Cannula Oxygen Flow Rate (LPM) 2 09/26/24 00:14 09/26/24 00:30 09/26/24 01:01 Temperature Temperature Source Pulse Rate 89 82 81 Pulse Rate [Radial] Respiratory Rate Blood Pressure 121/90 114/51 L 115/39 L Blood Pressure [Right Arm] Blood Pressure Mean 100 72 64 Blood Pressure Mean [Right Arm] 02 Sat by Pulse Oximetry 94 L 96 97 Oxygen Delivery Method Oxygen Flow Rate (LPM) 09/26/24 01:02 09/26/24 01:30 09/26/24 01:47 Temperature Temperature Source Pulse Rate 83 83 79 Pulse Rate [Radial] Respiratory Rate 17 Blood Pressure 117/58 L 121/63 102/48 L Blood Pressure [Right Arm] Blood Pressure Mean 68 75 Blood Pressure Mean [Right Arm] 02 Sat by Pulse Oximetry 97 97 93 L Oxygen Delivery Method Nasal Cannula Oxygen Flow Rate (LPM) 2 Lab Data Lab Results 09/25/24 21:35: WBC 6.7, RBC 3.20 L, Hgb 11.0 L, Hct 32.6 L, MCV 101.9 H, MCH 34.4 H, MCHC 33.7, RDW 13.9, Plt Count 249 D, MPV 9.9, Neut % (Auto) 62.9, Lymph % (Auto) 23.2, Gray % (Auto) 12.0 H, Eos % (Auto) 1.1, Baso % (Auto) 0.3, Neut # (Auto) 4.2, Lymph # (Auto) 1.5, Gray # (Auto) 0.8, Eos # (Auto) 0.1, Baso # (Auto) 0.0, Sodium 137, Potassium 3.6, Chloride 94 L, Carbon Dioxide 38 H, Anion Gap 8.6, BUN 24 H, Creatinine 1.80 H, Estimated Creat Clear 43, Estimated GFR 36 L, Est GFR ( Amer) 44 L, Glucose 258 H, Calcium 9.3, Magnesium 1.4 L D, Total Bilirubin 0.4, AST 30, ALT 19 D, Alkaline Phosphatase 129 H, Total Creatine Kinase 125 D, Troponin I 0.03, NT-Pro-B Natriuret Pep 432, Total Protein 6.8, Albumin 4.0, Globulin 2.8, Albumin/Globulin Ratio 1.4, Lipase 134 09/25/24 21:47: VBG pH 7.41, VBG pCO2 53.5 H, VBG pO2 38.1, VBG HCO3 32.8 H, VBG Total CO2 34.5 H, VBG O2 Saturation 69.5, VBG Base Excess 8.1 H, VBG Lactic Acid 2.3 H 09/26/24 01:00: Troponin I 0.03 09/25/24 21:35 09/25/24 21:35 Orders (Tests/Meds): ED MEDICATIONS Discontinued Medications Generic Name Dose Route Start Last Admin Trade Name Harpreetq PRN Reason Stop Dose Admin Furosemide 60 mg 09/26/24 01:00 09/26/24 01:12 Furosemide 40mg/4ml Vial IV 09/26/24 01:01 60 mg ONCE ONE Administration Magnesium Sulfate 2 gm in 50 mls @ 50 mls/hr 09/25/24 23:17 09/25/24 23:20 Magnesium Sulfate 2gm/50ml Premix IV 09/26/24 00:16 50 mls/hr ONCE ONE Administration Iopamidol 70 ml 09/26/24 00:14 09/26/24 00:15 Iopamidol-370 (76%);100ml Bottle IV 09/26/24 00:15 70 ml ONCE ONE Administration Sodium Chloride 50 ml 09/26/24 00:14 09/26/24 00:15 0.9 % Sodium Chloride 50 Ml Vial IV 09/26/24 00:15 50 ml ONCE ONE Administration Sodium Chloride 10 ml 09/26/24 00:14 09/26/24 00:15 Sodium Chloride 0.9% 10ml Syr (Rad Only) IV 09/26/24 00:15 10 ml ONCE ONE Administration ORDERS Category Date Time Status CT abdomen pelvis w con Stat Cat Scan 09/25/24 23:[address] angio chest PE protocol Stat Cat Scan 09/25/24 23:20 Completed CXR --portable [XR chest portable] Stat Exams 09/25/24 21:52 Taken BNP [NT Pro Brain Natriuretic Pep.] Stat Lab 09/25/24 21:35 Completed CBC w/Auto Diff [Complete Blood Count Auto Diff] Stat Lab 09/25/24 21:35 Completed CK [Creatine Kinase] Stat Lab 09/25/24 21:35 Completed CMP [Comprehensive Metabolic Panel] Stat Lab 09/25/24 21:35 Completed Lipase Stat Lab 09/25/24 21:35 Completed Magnesium Stat Lab 09/25/24 21:35 Completed Trop I [Troponin I] Stat Lab 09/25/24 21:35 Completed Troponin I Q3H Lab 09/26/24 01:00 Completed Troponin I Q3H Lab 09/26/24 04:00 Ordered Blood Culture Stat Micro 09/25/24 23:03 Received VBG [Venous Blood Gas] Stat RT 09/25/24 21:47 Completed ECG Data Tracing #1: I reviewed this ECG and interpreted as documented below: EKG personally interpreted by me demonstrates normal sinus rhythm with a rate of 84 bpm, left axis, DE prolongation consistent with first-degree AV block, narrow QRS, no QTc prolongation. No ST elevation or depression. No overt signs of ischemia or arrhythmia Medical Decision Narrative: In summary, this is an 84-year-old male patient who is presented to the emergency department today for evaluation of shortness of breath, fatigue, chills, and abdominal distention and pain. His comorbidities include type 2 diabetes, heart failure with preserved ejection fraction, and metastatic prostate cancer. On initial evaluation of the patient he seems to be resting comfortably in no acute distress and was nontoxic in appearance. He does appear very cold and is asking for more blankets. His oxygen saturation is intermittently dipping into the 80s with a good plethysmography with minimal conversation. He has good breath sounds bilaterally without wheezes, rales, or rhonchi. His heart sounds are normal. He does have significant bilateral lower extremity pitting edema. His abdomen is distended and he has diffuse generalized tenderness without evidence of focal peritonitis. Differential diagnosis to include ACS/MO, acute decompensated heart failure, worsening metastatic spread of disease, pneumonia, pancreatitis, intra-abdominal abscess, diverticulitis, bowel obstruction, among others. Initial workup to include hematologic labs as well as a CT pulmonary embolism and CT abdomen pelvis Labs personally interpreted by me demonstrate a VBG with hypercapnia that appears to be compensated with a pH of 7.41. He is hypochloremic. His creatinine is stable from prior. His alkaline phosphatase is high which could be seen in the setting of metastatic spread of disease to the bone. Initial troponin is 0.03, delta troponin is pending. The patient's BNP is 432, which is improved from prior. During the patient stay in the emergency department he did develop acute hypoxic respiratory failure with persistent desaturations into the 80s. We have placed him on 2 L of oxygen he is now resting comfortably and in no acute distress. At the time of shift change the patient's chest x-ray, chest CTA and CT of his abdomen and pelvis were pending. This case was handed off to Dr. Menendez who will follow-up on these results and disposition the patient appropriate. <Ceferino Menendez MD - Last Filed: 09/26/24 02:12> Vital Signs: 09/25/24 21:30 09/25/24 21:59 09/25/24 22:00 Temperature 98.4 F Temperature Source Oral Pulse Rate 86 84 Pulse Rate [Radial] 94 H Respiratory Rate 18 Blood Pressure 111/47 L 116/51 L Blood Pressure [Right Arm] 131/63 Blood Pressure Mean 68 68 Blood Pressure Mean [Right Arm] 85 02 Sat by Pulse Oximetry 92 L 90 L 92 L Oxygen Delivery Method Room Air Oxygen Flow Rate (LPM) 09/25/24 22:30 09/25/24 23:21 09/25/24 23:30 Temperature Temperature Source Pulse Rate 83 84 82 Pulse Rate [Radial] Respiratory Rate Blood Pressure 130/54 L 126/60 126/61 Blood Pressure [Right Arm] Blood Pressure Mean 73 73 82 Blood Pressure Mean [Right Arm] 02 Sat by Pulse Oximetry 88 L 97 95 Oxygen Delivery Method Room Air Nasal Cannula Oxygen Flow Rate (LPM) 2 09/26/24 00:14 09/26/24 00:30 09/26/24 01:01 Temperature Temperature Source Pulse Rate 89 82 81 Pulse Rate [Radial] Respiratory Rate Blood Pressure 121/90 114/51 L 115/39 L Blood Pressure [Right Arm] Blood Pressure Mean 100 72 64 Blood Pressure Mean [Right Arm] 02 Sat by Pulse Oximetry 94 L 96 97 Oxygen Delivery Method Oxygen Flow Rate (LPM) 09/26/24 01:02 09/26/24 01:30 09/26/24 01:47 Temperature Temperature Source Pulse Rate 83 83 79 Pulse Rate [Radial] Respiratory Rate 17 Blood Pressure 117/58 L 121/63 102/48 L Blood Pressure [Right Arm] Blood Pressure Mean 68 75 Blood Pressure Mean [Right Arm] 02 Sat by Pulse Oximetry 97 97 93 L Oxygen Delivery Method Nasal Cannula Oxygen Flow Rate (LPM) 2 Lab Data Lab Results 09/25/24 21:35: WBC 6.7, RBC 3.20 L, Hgb 11.0 L, Hct 32.6 L, MCV 101.9 H, MCH 34.4 H, MCHC 33.7, RDW 13.9, Plt Count 249 D, MPV 9.9, Neut % (Auto) 62.9, Lymph % (Auto) 23.2, Gray % (Auto) 12.0 H, Eos % (Auto) 1.1, Baso % (Auto) 0.3, Neut # (Auto) 4.2, Lymph # (Auto) 1.5, Gray # (Auto) 0.8, Eos # (Auto) 0.1, Baso # (Auto) 0.0, Sodium 137, Potassium 3.6, Chloride 94 L, Carbon Dioxide 38 H, Anion Gap 8.6, BUN 24 H, Creatinine 1.80 H, Estimated Creat Clear 43, Estimated GFR 36 L, Est GFR ( Amer) 44 L, Glucose 258 H, Calcium 9.3, Magnesium 1.4 L D, Total Bilirubin 0.4, AST 30, ALT 19 D, Alkaline Phosphatase 129 H, Total Creatine Kinase 125 D, Troponin I 0.03, NT-Pro-B Natriuret Pep 432, Total Protein 6.8, Albumin 4.0, Globulin 2.8, Albumin/Globulin Ratio 1.4, Lipase 134 09/25/24 21:47: VBG pH 7.41, VBG pCO2 53.5 H, VBG pO2 38.1, VBG HCO3 32.8 H, VBG Total CO2 34.5 H, VBG O2 Saturation 69.5, VBG Base Excess 8.1 H, VBG Lactic Acid 2.3 H 09/26/24 01:00: Troponin I 0.03 Orders (Tests/Meds): ED MEDICATIONS Discontinued Medications Generic Name Dose Route Start Last Admin Trade Name Freq PRN Reason Stop Dose Admin Furosemide 60 mg 09/26/24 01:00 09/26/24 01:12 Furosemide 40mg/4ml Vial IV 09/26/24 01:01 60 mg ONCE ONE Administration Magnesium Sulfate 2 gm in 50 mls @ 50 mls/hr 09/25/24 23:17 09/25/24 23:20 Magnesium Sulfate 2gm/50ml Premix IV 09/26/24 00:16 50 mls/hr ONCE ONE Administration Iopamidol 70 ml 09/26/24 00:14 09/26/24 00:15 Iopamidol-370 (76%);100ml Bottle IV 09/26/24 00:15 70 ml ONCE ONE Administration Sodium Chloride 50 ml 09/26/24 00:14 09/26/24 00:15 0.9 % Sodium Chloride 50 Ml Vial IV 09/26/24 00:15 50 ml ONCE ONE Administration Sodium Chloride 10 ml 09/26/24 00:14 09/26/24 00:15 Sodium Chloride 0.9% 10ml Syr (Rad Only) IV 09/26/24 00:15 10 ml ONCE ONE Administration ORDERS Category Date Time Status CT abdomen pelvis w con Stat Cat Scan 09/25/24 23:[address] angio chest PE protocol Stat Cat Scan 09/25/24 23:20 Completed CXR --portable [XR chest portable] Stat Exams 09/25/24 21:52 Taken BNP [NT Pro Brain Natriuretic Pep.] Stat Lab 09/25/24 21:35 Completed CBC w/Auto Diff [Complete Blood Count Auto Diff] Stat Lab 09/25/24 21:35 Completed CK [Creatine Kinase] Stat Lab 09/25/24 21:35 Completed CMP [Comprehensive Metabolic Panel] Stat Lab 09/25/24 21:35 Completed Lipase Stat Lab 09/25/24 21:35 Completed Magnesium Stat Lab 09/25/24 21:35 Completed Trop I [Troponin I] Stat Lab 09/25/24 21:35 Completed Troponin I Q3H Lab 09/26/24 01:00 Completed Troponin I Q3H Lab 09/26/24 04:00 Ordered Blood Culture Stat Micro 09/25/24 23:03 Received VBG [Venous Blood Gas] Stat RT 09/25/24 21:47 Completed Medical Decision Narrative: In summary, this is an 84-year-old male patient who is presented to the emergency department today for evaluation of shortness of breath, fatigue, chills, and abdominal distention and pain. His comorbidities include type 2 diabetes, heart failure with preserved ejection fraction, and metastatic prostate cancer. On initial evaluation of the patient he seems to be resting comfortably in no acute distress and was nontoxic in appearance. He does appear very cold and is asking for more blankets. His oxygen saturation is intermittently dipping into the 80s with a good plethysmography with minimal conversation. He has good breath sounds bilaterally without wheezes, rales, or rhonchi. His heart sounds are normal. He does have significant bilateral lower extremity pitting edema. His abdomen is distended and he has diffuse generalized tenderness without evidence of focal peritonitis. Differential diagnosis to include ACS/MO, acute decompensated heart failure, worsening metastatic spread of disease, pneumonia, pancreatitis, intra-abdominal abscess, diverticulitis, bowel obstruction, among others. Initial workup to include hematologic labs as well as a CT pulmonary embolism and CT abdomen pelvis Labs personally interpreted by me demonstrate a VBG with hypercapnia that appears to be compensated with a pH of 7.41. He is hypochloremic. His creatinine is stable from prior. His alkaline phosphatase is high which could be seen in the setting of metastatic spread of disease to the bone. Initial troponin is 0.03, delta troponin is pending. The patient's BNP is 432, which is improved from prior. During the patient stay in the emergency department he did develop acute hypoxic respiratory failure with persistent desaturations into the 80s. We have placed him on 2 L of oxygen he is now resting comfortably and in no acute distress. At the time of shift change the patient's chest x-ray, chest CTA and CT of his abdomen and pelvis were pending. This case was handed off to Dr. Menendez who will follow-up on these results and disposition the patient appropriate. Gemma SON: I assumed care of the patient at the time of handoff from the prior provider. On reassessment patient is sleeping comfortably. We gave Lasix and attempted to trial him off oxygen, but he desatted at rest down to 88 consistently. We attempted to ambulate him but he was unable to ambulate due to weakness and unsteadiness. CT imaging was independently interpreted by me and shows no evidence of acute PE or serious intra-abdominal pathology. Given hypoxia and debility, patient is unable to go home at this time. Active discussion was had with hospitalist on-call for admission. Critical Care <Ean Patel, - Last Filed: 09/26/24 00:49> Critical Care Time Critical Care Time: No
[2024-09-25 21:56] LABS: VBG HCO3 32.8 mmol/L (23-30); VBG PCO2 53.5 mmol/L (35-51); VBG PH 7.41 mmol/L (7.31-7.41); VBG PO2 38.1 mmol/L (28-40)
[2024-09-25 21:57] LABS: Lactate Venous 2.3 mmol/L (0.4-2.0)
[2024-09-25 21:57] LABS: Hematocrit 32.6 % (42.0-52.0); Hemoglobin 11.0 g/dL (14.1-18.0); Immature Granulocytes % 0.5 %; Mean Corpuscular HGB Conc 33.7 g/dL (31.8-35.4); Mean Corpuscular Hemoglobin 34.4 pg (27.0-31.2); Mean Corpuscular Volume 101.9 fl (80-94); Nucleated Red Blood Cells % 0 %; Platelet Count 249 K/mm3 (142-424); Red Blood Count 3.20 M/mm3 (4.60-6.20); Red Cell Distribution Width-SD 52.1 fL; White Blood Count 6.7 K/mm3 (4.8-10.8)
[2024-09-25 21:59] VITALS: BP 111/47; PULSE 86; O2SAT 90
[2024-09-25 22:00] VITALS: BP 116/51; PULSE 84; O2SAT 92
[2024-09-25 22:09] LABS: Alanine Aminotransferase 19 U/L (12-78); Albumin Level 4.0 g/dl (3.5-5.0); Albumin/Globulin Ratio 1.4 (1.1-1.8); Alkaline Phosphatase 129 U/L (38-126); Anion Gap 8.6 mEq/L (5-15); Aspartate Amino Transferase 30 U/L (17-59); Bilirubin,Total 0.4 mg/dl (0.2-1.3); Blood Urea Nitrogen 24 mg/dl (9-20); Calcium 9.3 mg/dl (8.4-10.2); Carbon Dioxide 38 mmol/L (22.0-30.0); Chloride 94 mmol/L (98-107); Creatine Kinase 125 U/L (55-170); Creatinine Clearance Estimated 43 mL/min (50-200); Creatinine,Serum 1.80 mg/dl (0.66-1.25); Estimated Glomerular Filt Rate 36 ml/min (>60); GFR (African American) 44 ML/MIN (>60); Globulin 2.8 g/dL (1.3-3.2); Glucose 258 mg/dl (74-100); Lipase 134 U/L (23-300); Magnesium 1.4 mg/dl (1.6-2.3); Potassium 3.6 mmoL/L (3.5-5.1); Sodium 137 mmol/L (136-145); Total Protein,Serum 6.8 g/dl (6.3-8.2)
[2024-09-25 22:21] LABS: Troponin I 0.03 ng/ml (0.00-0.034)
[2024-09-25 22:30] VITALS: BP 130/54; PULSE 83; O2SAT 88
--- NOTE | 2024-09-25 22:30 | ECG_ITS ---
APPROVED REPORT Exam: Resting ECG HR:84 bpm ECG Measurements Heart Rate 84 AXES IL 290 P 90 QRSd 110 QRS -70 QT 387 T 82 QTc 428 Conclusion SINUS RHYTHM WITH FIRST DEGREE AV BLOCK, with occasional sinus arrhythmia. No stemi Electronically signed by : Ean Patel, 09/26/2024 02:20:27
[2024-09-25 22:49] LABS: NT Pro Brain Natriuretic Pep. 432 pg/mL (0-450)
[2024-09-25] MEDS: MAGNESIUM SULFATE IN WATER 2 GM/50 ML PIGGYBACK IV (23:20)
--- NOTE | 2024-09-25 23:20 | CT_ITS ---
PROCEDURE INFORMATION: Exam: CTA Chest With Contrast Exam date and time: 09/26/2024 12:07 AM Age: 84 years old Clinical indication: Abdominal pain; Dyspnea; Additional info: Dyspnea on exertion, ble edema TECHNIQUE: Imaging protocol: Computed tomographic angiography of the chest with contrast. Exam focused on the arteries. 3D rendering (Not supervised by radiologist): MIP and/or 3D reconstructed images were created by the technologist. Radiation optimization: All CT scans at this facility use at least one of these dose optimization techniques: automated exposure control; mA and/or kV adjustment per patient size (includes targeted exams where dose is matched to clinical indication); or iterative reconstruction. Contrast material: ISOVUE; Contrast volume: 70 ml; Contrast route: INTRAVENOUS (IV); COMPARISON: CT ANGIO CHEST PE PROTOCOL 09/23/2024 11:15 AM FINDINGS: Pulmonary arteries: Normal. No pulmonary emboli. Aorta: Atherosclerosis. No aortic aneurysm. No aortic dissection. Lungs: Mild emphysema. No consolidation. No masses. Punctate right lower lobe calcified granuloma. Pleural spaces: Smooth calcified left posterior pleural plaques. No pneumothorax. Resolution of previous bilateral pleural effusions. Heart: Aortic valvular calcifications. Mild cardiomegaly. Stable minimal pericardial effusion. Coronary arteries: Coronary artery calcifications. Lymph nodes: Small calcified mediastinal and right hilar lymph nodes. Stable mildly prominent right hilar lymph node measuring 1 cm in short axis. Bones/joints: Stable sclerotic foci within several thoracic vertebrae and bilateral ribs. No acute fracture. Degenerative changes. Soft tissues: Fmuz-huzxlwx-[id number]-right gynecomastia. IMPRESSION: 1. No acute findings. No pulmonary artery embolism. 2. Resolution of previous bilateral pleural effusions. 3. Stable minimal pericardial effusion. PROCEDURE INFORMATION: Exam: CT Abdomen And Pelvis With Contrast Exam date and time: 09/26/2024 12:07 AM Age: 84 years old Clinical indication: Abdominal pain; Dyspnea; Additional info: Dyspnea on exertion, ble edema TECHNIQUE: Imaging protocol: Computed tomography of the abdomen and pelvis with contrast. Radiation optimization: All CT scans at this facility use at least one of these dose optimization techniques: automated exposure control; mA and/or kV adjustment per patient size (includes targeted exams where dose is matched to clinical indication); or iterative reconstruction. Contrast material: ISOVUE; Contrast volume: 70 ml; Contrast route: IV; COMPARISON: CT ABDOMEN PELVIS W CON 09/23/2024 11:15 AM FINDINGS: Diaphragm: Small hiatal hernia. Liver: Hepatomegaly. No mass. Few small calcified granulomas. Gallbladder and biliary ducts: Cholelithiasis. No significant gallbladder wall thickening or pericholecystic fat stranding. No ductal dilation. Pancreas: Mildly atrophic. No ductal dilation. Spleen: Normal. No splenomegaly. Adrenal glands: Normal. No mass. Kidneys and ureters: Stable left renal cyst. No hydronephrosis. Stomach and bowel: Colonic diverticulosis. No obstruction. No mucosal thickening. Appendix: No evidence of appendicitis. Intraperitoneal space: Unremarkable. No free air. No significant fluid collection. Vasculature: Atherosclerosis. No abdominal aortic aneurysm. Lymph nodes: Unremarkable. No enlarged lymph nodes. Urinary bladder: Unremarkable as visualized. Reproductive: Unremarkable as visualized. Bones/joints: Total left hip arthroplasty. No acute fracture. Degenerative changes. Stable sclerotic foci within the lumbosacral spine and bony pelvis. Soft tissues: Small fat containing inguinal hernias. IMPRESSION: 1. No acute findings. 2. Cholelithiasis. 3. Colonic diverticulosis.
[2024-09-25 23:21] VITALS: BP 126/60; PULSE 84; O2SAT 97
[2024-09-25 23:30] VITALS: BP 126/61; PULSE 82; O2SAT 95
[2024-09-26] VITALS (16 sets, daily range): BP systolic 102–143; BP diastolic 39–90; PULSE 65–89; RESP 15–19; TEMP 36.6–36.8; O2SAT 87–98; BMI 32.3
[2024-09-26] MEDS: SODIUM CHLORIDE 0.9% 10ML SYR (RAD ONLY) 10 ML IV (00:15)
[2024-09-26] MEDS: 0.9 % SODIUM CHLORIDE 50 ML VIAL IV (00:15)
[2024-09-26] MEDS: IOPAMIDOL-370 (76%);100ML BOTTLE 70 ML IV (00:15)
[2024-09-26] MEDS: FUROSEMIDE 40MG/4ML VIAL 60 MG IV ×2 (01:12→22:49)
[2024-09-26 01:40] LABS: Troponin I 0.03 ng/ml (0.00-0.034)
--- NOTE | 2024-09-26 02:28 | EXP.HP ---
History of Present Illness *Admission Date: 09/26/24 *Reason for visit:: Shortness of breath *History of present illness: Braeden Palmer is a 84-year-old male with a medical history of metastatic prostate cancer (formerly on abiraterone and prednisone discontinued in early August), HFpEF, BPH, type 2 diabetes, CAD, GERD, gout who presents with few day onset of worsening shortness of breath, exercise intolerance, hypoxia at home. Patient was recently discharged from our facility in stable condition 2 days ago after treatment for HFpEF exacerbation. He was advised to increase his Lasix to 80 mg twice daily and continue his prednisone 5 mg which she had discontinued 2 weeks prior. Unfortunately, patient seemingly did not understand this and is instead taking Lasix 80 mg daily, and has not restarted prednisone 5 mg. He states he has been having shortness of breath over the past 2 days since discharge and his pulse ox at home was showing 88%. This was corroborated on arrival. I advised IV Lasix 60 mg challenge in the ED, but patient continued to require 2 L nasal cannula. Therefore, I discussed case with ED provider and decision made to admit patient for acute hypoxic respiratory failure from mild HFpEF exacerbation. [facility] Disclaimer: The information contained in this section may have been updated after the patient was seen, as this information can be updated by other users. Medical History GERD (gastroesophageal reflux disease) Bruise of toe Hypertension Ingrown nail of great toe of left foot Postoperative dehiscence of skin wound Blister of fifth toe, left Encounter for dialysis Tear of retina History of COVID-19 History of cataract Edema Osteomyelitis of toe of left foot Other specified symptoms and signs involving the circulatory and respiratory systems Cellulitis of left foot Renal disease HTN (hypertension), benign HLD (hyperlipidemia) T2DM (type 2 diabetes mellitus) Coronary artery disease Anxiety Pain around toenail Onychomycosis Surgical History Hx of cataract surgery Hx of colonoscopy History of surgery History of coronary artery stent placement Hx of cardiac cath Family History Other Diabetes Heart attack Social History (Updated 09/26/24 @ 04:21 by Kelli Vaughn RN) Smoking Status: Former smoker tobacco type: cigarettes alcohol intake: never substance use type: denies use current occupational status: retired Travel in the last 8 weeks?: None Have you lived/traveled outside [place] in past 30 days?: No Contact w/someone who lives/traveled outside US past 30 days?: No Exposure to someone with infectious disease in past 14 days?: No Do you have a fever (greater than 100.4 F or 38 C)?: No Have you tested positive for COVID-19?: No Exposed to someone with COVID-19 in past 14 days?: No Do you have a sore throat?: No Do you have a cough?: No Do you have any weakness?: No Do you have any diarrhea?: No Are you experiencing any unusual bleeding?: No Do you have any muscle aches/pain?: No Do you have any abdominal pain?: No Are you experiencing loss of taste or smell?: No Other Medical History Have you received the Flu Vaccine for this season: No Have you received the Pneumonia Vaccine: No Meds Home Medications and Allergies Home Medications ?Medication ?Instructions ?Recorded ?Confirmed ?Type aspirin 81 mg tablet,delayed 81 mg PO DAILY 10/19/18 09/26/24 History release (Adult Low Dose Aspirin) simvastatin 40 mg tablet 40 mg PO HS #90 tabs 04/23/24 09/26/24 Rx calcitriol 0.25 mcg capsule 0.25 mcg PO MOWEFR #36 caps 05/04/24 09/26/24 Rx tamsulosin 0.4 mg capsule 0.4 mg PO HS #90 caps 05/15/24 09/26/24 Rx clopidogrel 75 mg tablet 75 mg PO DAILY #90 tabs 07/06/24 09/26/24 Rx gabapentin 300 mg capsule 300 mg PO TID #270 caps 07/06/24 09/26/24 Rx hydralazine 10 mg tablet 20 mg (2 x 10 mg) PO BID #180 tabs 07/09/24 09/26/24 Rx allopurinol 100 mg tablet 100 mg PO BID #180 tabs 08/06/24 09/26/24 Rx famotidine 20 mg tablet 20 mg PO DAILY #90 tabs 09/12/24 09/26/24 Rx pantoprazole 40 mg tablet,delayed 40 mg PO DAILY 09/23/24 09/26/24 History release furosemide 40 mg tablet (Lasix) 80 mg (2 x 40 mg) PO BIDL 30 days 09/24/24 09/26/24 Rx #120 tabs amlodipine 5 mg tablet 5 mg PO BID 09/26/24 09/26/24 History cholecalciferol (vitamin D3) 50 50 mcg PO DAILY 09/26/24 09/26/24 History mcg (2,000 unit) capsule (Vitamin D3) coenzyme Q10 100 mg capsule 100 mg PO DAILY 09/26/24 09/26/24 History (CoQ-10) mecobalamin (vitamin B12) 1,000 1,000 mcg PO DAILY 09/26/24 09/26/24 History mcg chewable tablet (B12 Active) prednisone 5 mg tablet 5 mg PO DAILY #30 tabs 09/26/24 Rx New Prescriptions to Start Prescriptions: prednisone Wyatt Nath Allergies Allergy/AdvReac Type Severity Reaction Status Date / Time No Known Allergies Allergy Verified 07/09/24 11:45 Exam Data for Last 24 hours Vital signs and Labs for Last 24 Hours: Temp Pulse Resp BP Pulse Ox O2 Del Method O2 Flow Rate 98.3 F 79 15 102/48 L 93 L Nasal Cannula 2 09/26/24 02:18 09/26/24 02:18 09/26/24 02:18 09/26/24 02:18 09/26/24 01:47 09/26/24 02:18 09/26/24 02:18 Laboratory Results - last 24 hr 09/25/24 21:35: WBC 6.7, RBC 3.20 L, Hgb 11.0 L, Hct 32.6 L, MCV 101.9 H, MCH 34.4 H, MCHC 33.7, RDW 13.9, Plt Count 249 D, MPV 9.9, Neut % (Auto) 62.9, Lymph % (Auto) 23.2, [place] % (Auto) 12.0 H, Eos % (Auto) 1.1, Baso % (Auto) 0.3, Neut # (Auto) 4.2, Lymph # (Auto) 1.5, [place] # (Auto) 0.8, Eos # (Auto) 0.1, Baso # (Auto) 0.0, Sodium 137, Potassium 3.6, Chloride 94 L, Carbon Dioxide 38 H, Anion Gap 8.6, BUN 24 H, Creatinine 1.80 H, Estimated Creat Clear 43, Estimated GFR 36 L, Est GFR ( Amer) 44 L, Glucose 258 H, Calcium 9.3, Magnesium 1.4 L D, Total Bilirubin 0.4, AST 30, ALT 19 D, Alkaline Phosphatase 129 H, Total Creatine Kinase 125 D, Troponin I 0.03, NT-Pro-B Natriuret Pep 432, Total Protein 6.8, Albumin 4.0, Globulin 2.8, Albumin/Globulin Ratio 1.4, Lipase 134 09/25/24 21:47: VBG pH 7.41, VBG pCO2 53.5 H, VBG pO2 38.1, VBG HCO3 32.8 H, VBG Total CO2 34.5 H, VBG O2 Saturation 69.5, VBG Base Excess 8.1 H, VBG Lactic Acid 2.3 H 09/26/24 01:00: Troponin I 0.03 I & O for Last 24 hours: Intake & Output 09/23/24 09/24/24 09/25/24 09/26/24 23:59 23:59 23:59 23:59 Weight 104.326 kg Constitutional Constitutional: no acute distress *Routine HEENT Exam Head: Present normocephalic Eye: Present EOMI and PERRL ENT: Present mucous membranes moist *Routine Neck Exam Neck: Present supple; Absent lymphadenopathy *Routine Respiratory Exam Respiratory: Present CTA bilaterally *Routine Cardiovascular Exam Cardiovascular: Present RRR *Routine Abdominal Exam Abdominal: Present soft and normoactive bowel sounds; Absent tenderness *Routine Rectal Exam Rectal:: deferred *Routine Genitalia Exam Genitalia:: deferred *Routine Extremities Exam Extremities: Absent cyanosis, clubbing or edema Comments: Bilateral lower extremity pitting edema 2+. *Routine Skin Exam Skin: Present warm; Absent rash *Routine Neurological Exam Neurological: Present alert and oriented X3 Assessment and Plan *Assessment and plan (1) CAD (coronary artery disease): Status: Acute Category: Medical Code(s): I25.10 - Atherosclerotic heart disease of [place] coronary artery without angina pectoris (2) Adrenal insufficiency: Status: Acute Category: Medical Code(s): E27.40 - Unspecified adrenocortical insufficiency (3) Acute hypoxic respiratory failure: Status: Acute Category: Medical Code(s): J96.01 - Acute respiratory failure with hypoxia Plan Braeden Palmer is a 84-year-old male with a medical history of metastatic prostate cancer (formerly on abiraterone and prednisone discontinued in early August), HFpEF, BPH, type 2 diabetes, CAD, GERD, gout who presents with few day onset of worsening shortness of breath, exercise intolerance, hypoxia at home. Patient was recently discharged from our facility in stable condition 2 days ago after treatment for HFpEF exacerbation. He was advised to increase his Lasix to 80 mg twice daily and continue his prednisone 5 mg which she had discontinued 2 weeks prior. Unfortunately, patient seemingly did not understand this and is instead taking Lasix 80 mg daily, and has not restarted prednisone 5 mg. He states he has been having shortness of breath over the past 2 days since discharge and his pulse ox at home was showing 88%. This was corroborated on arrival. I advised IV Lasix 60 mg challenge in the ED, but patient continued to require 2 L nasal cannula. Unable to set up O2 for discharge during the night. Therefore, I discussed case with ED provider and decision made to admit patient for acute hypoxic respiratory failure from mild HFpEF exacerbation. #Acute hypoxic respiratory failure #HFpEF exacerbation ? Presents with shortness of breath, hypoxia to 88% at home. Initially requiring 2 L nasal cannula, 2+ lower extremity pitting edema (though patient takes amlodipine). ? BNP 432, but can be falsely low in the setting of cancer. CXR without acute infectious signs. ? Similar presentation this past week but patient seemingly did not understand instructions to increase Lasix dose. ? After arrival to the floor, I personally weaned patient to 1 L nasal cannula. Saturating 88% on room air at rest. Recommend oxygen on discharge. ? Patient feels better after Lasix challenge. Re-counseled patient on taking Lasix 80 mg twice daily as previously recommended on his last admission. He was agreeable. ? Continue IV Lasix 40 mg twice daily for now, renal function improving. Follow-up urine output. ? ECHO 09/24/2024 shows normal biventricular systolic function, mild reduced RV function, indeterminate LV diastolic function. #Metastatic prostate cancer #Suspected adrenal insufficiency ? Patient had been taking abiraterone and prednisone 5 mg daily for almost a year, discontinued this treatment in early August 2024. ? Exercise intolerance, fatigue likely secondary to adrenal insufficiency from abruptly discontinuing prednisone. ? Re-counseled patient on taking prednisone 5 mg as previously recommended on previous discharge until follow-up with oncology. ? Ordered IV hydrocortisone 100 mg, follow-up response. ? Resume prednisone 5 mg with discharge. ? Follow-up morning cortisol, though will take a few days to result. #LILY on CKD ? Initial creatinine 1.8, baseline around 1.4. ? Improved to 1.7 after diuresis. Continue diuresis as above. #Hypertension ? BP stable at this time. Resume medications once appropriate. ? Recommend switching amlodipine to YAEL/ARB given lower extremity edema, can be confused for acute HFpEF. #Type 2 diabetes ? Hemoglobin A1c 6.7%. ? LDSSI, ACHS glucose checks. #CAD ? Continue home aspirin. #GERD ? Continue home PPI. #BPH ? Continue tamsulosin. Full code DVT prophylaxis: Lovenox 40 mg.
--- NOTE | 2024-09-26 03:20 | PC.NURSE ---
Patient arrived to floor via stretcher from ED at 03:19.
--- NOTE | 2024-09-26 04:15 | PC.NURSE ---
0415: Obtained a RA O2 sat on pt per MD, Pt O2 sat is 87% on RA while pt is resting. 0430: Pt placed on 1L and now sating at 94%
[2024-09-26 04:20] LABS: Hematocrit 30.5 % (42.0-52.0); Hemoglobin 10.1 g/dL (14.1-18.0); Immature Granulocytes % 0.3 %; Mean Corpuscular HGB Conc 33.1 g/dL (31.8-35.4); Mean Corpuscular Hemoglobin 34.1 pg (27.0-31.2); Mean Corpuscular Volume 103.0 fl (80-94); Nucleated Red Blood Cells % 0 %; Platelet Count 238 K/mm3 (142-424); Red Blood Count 2.96 M/mm3 (4.60-6.20); Red Cell Distribution Width-SD 52.8 fL; White Blood Count 6.4 K/mm3 (4.8-10.8)
[2024-09-26 04:27] LABS: Albumin Level 3.3 g/dl (3.5-5.0); Chloride 91 mmol/L (98-107); Sodium 132 mmol/L (136-145)
[2024-09-26 04:28] LABS: Potassium 3.5 mmoL/L (3.5-5.1)
[2024-09-26 04:30] LABS: Alanine Aminotransferase 18 U/L (12-78); Alkaline Phosphatase 128 U/L (38-126); Anion Gap 7.5 mEq/L (5-15); Aspartate Amino Transferase 27 U/L (17-59); Bilirubin,Total 0.4 mg/dl (0.2-1.3); Blood Urea Nitrogen 24 mg/dl (9-20); Carbon Dioxide 37 mmol/L (22.0-30.0); Creatinine Clearance Estimated 48 mL/min (50-200); Creatinine,Serum 1.70 mg/dl (0.66-1.25); Estimated Glomerular Filt Rate 38 ml/min (>60); GFR (African American) 46 ML/MIN (>60)
[2024-09-26 04:31] LABS: Albumin/Globulin Ratio 0.9 (1.1-1.8); Calcium 8.9 mg/dl (8.4-10.2); Globulin 3.5 g/dL (1.3-3.2); Glucose 191 mg/dl (74-100); Magnesium 2.0 mg/dl (1.6-2.3); Total Protein,Serum 6.8 g/dl (6.3-8.2)
[2024-09-26 04:52] LABS: Troponin I 0.03 ng/ml (0.00-0.034)
[2024-09-26 05:46] LABS: POC Glucose,Bedside 198 (70-110)
[2024-09-26] MEDS: humaLOG 100 UNITS/ML 10ML VIAL (SSI) SUBCUT ×4 (05:48→20:32)
--- NOTE | 2024-09-26 06:24 | PC.NURSE ---
Patient is alert and oriented x4. Patients' oxygen saturation dropped to 87 on RA. Per MD, patient placed on 1L of oxygen. Patient is currently on 2L of oxygen, due to O2 sat dropping while patient was asleep on 1L of oxygen. Patient is diabetic with a Dexcom sensor in left arm, but glucose level was off compared to glucometer. Patient educated that the glucometer is more accurate and will be the device used at this time, per MD. Patients has home medications that have been sent to pharmacy and one controlled medication locked in drawer. Patient is a standby assist for mobility. Patient is currently asleep with no signs of acute distress at this time. Patients' call light is within reach. No needs or concerns voiced at this time.
[2024-09-26] MEDS: HYDROCORTISONE SOD SUCCINATE 100MG VIAL 100 MG IV (06:28)
[2024-09-26] MEDS: ALLOPURINOL 100MG TABLET 100 MG PO (09:08)
[2024-09-26] MEDS: POTASSIUM CHLORIDE 20MEQ TAB 40 MEQ PO ×2 (09:08→12:46)
[2024-09-26] MEDS: CALCITRIOL 0.25MCG CAPSULE 0.25 MCG PO (09:09)
[2024-09-26] MEDS: CLOPIDOGREL 75MG TAB 75 MG PO (09:09)
[2024-09-26] MEDS: ASPIRIN EC 81MG TABLET 81 MG PO (09:09)
--- NOTE | 2024-09-26 09:29 | HMH.PHAINT1 ---
Pharmacy Intervention Comments: MEDICATION RECONCILIATION COMPLETED ON PATIENT USING EXTERNAL FILL HSITORY FROM PHARMACY AND DISCHARGE SUMMARY FROM PREVIOUS ADMISSION. -SHERRY DOUGLASD
[2024-09-26 10:53] LABS: POC Glucose,Bedside 403 (70-110)
--- NOTE | 2024-09-26 11:36 | HMH.PTEV ---
Physical Therapy Evaluation Rehab PT IP Evaluation Start: 09/26/24 04:34 Freq: ONCE Status: Active Protocol: Document 09/26/24 09:00 ZE (Rec: 09/26/24 11:36 RADHARALEIGH [id number]) Subjective/History History History 84-year-old male with a medical history of metastatic prostate cancer (formerly on abiraterone and prednisone discontinued in early August), HFpEF, BPH, type 2 diabetes, CAD, GERD, gout who presents with few day onset of worsening shortness of breath, exercise intolerance, hypoxia at home. Patient was recently discharged from our facility in stable condition 2 days ago after treatment for HFpEF exacerbation. He was advised to increase his Lasix to 80 mg twice daily and continue his prednisone 5 mg which she had discontinued 2 weeks prior. Unfortunately, patient seemingly did not understand this and is instead taking Lasix 80 mg daily, and has not restarted prednisone 5 mg. He states he has been having shortness of breath over the past 2 days since discharge and his pulse ox at home was showing 88%. This was corroborated on arrival. I advised IV Lasix 60 mg challenge in the ED, but patient continued to require 2 L nasal cannula. Therefore, I discussed case with ED provider and decision made to admit patient for acute hypoxic respiratory failure from mild HFpEF exacerbation. Pt reports he lives alone , no RHYS the home, and he is generally independent with all ambulation with cane. Subjective Subjective Pt has no c/o this am, Oxygen on at 2L/min throughout treatment. O2 sat 97% prior to treatment and 94% after treatment. [facility] How much help from another person do you currently need... Turning from your None back to your side while in a flat bed without using bedrails? Moving from lying on None back to sitting on the side of a flat bed without using bedrails? Moving to and from a None bed to a chair ( including a wheelchair)? Standing up from a None chair using your arms? (e.g., wheelchair, bedside chair) Walking in hospital None room? Climbing 3-5 steps None with a railing? Mobility Score 24 Mobility Level [facility] Mobility 8 Walk 250 feet or more Mobility Calculator Rehab PT IP Eval Objective Appearance Patient Behavior Appropriate Patient Orientation Person,Place,Time Difficulty following none instructions Speech Pattern Clear Ambulation Patient Able to Yes Ambulate Ambulation Observation IP General Gait No Deviations/Normal Pattern Observation Ambulation Distance 150 (feet) Ambulation Assistive Rolling Walker Device Ambulation Ability Supervision/Stand by Balance Ability to Arise Able, uses arms to help Sitting Balance Steady, safe Standing Balance Steady, wide stance Dynamic Sitting Good Balance Ability Dynamic Standing Good Balance Ability Transfers Bed Transfer Ability Independent Chair Transfer Independent Ability Sit to Stand Bed Independent Transfer Ability Sit to Stand Chair Independent Transfer Ability Rehab PT IP prob,goals,plan Problems Date of Evaluation: 09/26/24 Discharge Plan PT Discharge Plan Pt is currently appropriate to return home once medically stable for d/c. No current needs for skilled acute rehab services. Eval Complexity Eval Charge Codes 72972 - High Complexity PHYSICIAN CERTIFICATION: I certify the specified therapy services for Braeden Palmer are required, authorized, and reviewed every 30 days.
[2024-09-26] MEDS: GABAPENTIN 300MG CAPSULE 300 MG PO ×2 (12:47→20:38)
[2024-09-26 16:24] LABS: POC Glucose,Bedside 370 (70-110)
--- NOTE | 2024-09-26 17:41 | PC.NURSE ---
AOX4, AMBULATES IN ROOM WITH WALKER AND STANDBY ASSIST. REQUIRES 2LNC WHILE SLEEPING R/T DROP IN O2 SATS.
[2024-09-26 19:56] LABS: POC Glucose,Bedside 357 (70-110)
[2024-09-26] MEDS: *PAT OWN MED* TAMSULOSIN 0.4MG CAPSULE 0.4 MG PO (20:33)
[2024-09-26] MEDS: *PAT OWN MED* PANTOPRAZOLE 40MG TABLET 40 MG PO (20:34)
[2024-09-26] MEDS: ALLOPURINOL 100 MG PO (20:36)
--- NOTE | 2024-09-26 22:36 | PC.NURSE ---
Initially, patient refused medication. After education, patient now agrees to take the medication at this time. MD notified, and permitted for the patient to take medication at this time.
[2024-09-27] VITALS: PULSE 80
[2024-09-27 04:00] VITALS: PULSE 70; BMI 36.7
[2024-09-27 04:11] VITALS: BP 128/51; PULSE 76; RESP 17; TEMP 36.7; O2SAT 97
--- NOTE | 2024-09-27 04:12 | PC.NURSE ---
0414 Blue bags have been emptied, table wiped and ice filled. Patient does not need anything at this time.
--- NOTE | 2024-09-27 04:52 | PC.NURSE ---
Patient is alert and oriented x 4. Patient is standby assist and uses a walker for assistance with ambulation. Patient has been on 2L with a nasal cannula during shift. Patient refused Lasix medication, but later decided to take it. Please see previous note. Patient has had no complaints of pain during shift. Patients' call light is within reach. No needs or concerns voiced at this time.
[2024-09-27] MEDS: humaLOG 100 UNITS/ML 10ML VIAL (SSI) SUBCUT ×2 (05:50→12:03)
[2024-09-27 05:59] LABS: POC Glucose,Bedside 263 (70-110)
[2024-09-27 06:19] LABS: Hematocrit 30.7 % (42.0-52.0); Hemoglobin 10.0 g/dL (14.1-18.0); Immature Granulocytes % 0.3 %; Mean Corpuscular HGB Conc 32.6 g/dL (31.8-35.4); Mean Corpuscular Hemoglobin 33.3 pg (27.0-31.2); Mean Corpuscular Volume 102.3 fl (80-94); Nucleated Red Blood Cells % 0 %; Platelet Count 256 K/mm3 (142-424); Red Blood Count 3.00 M/mm3 (4.60-6.20); Red Cell Distribution Width-SD 52.2 fL; White Blood Count 6.8 K/mm3 (4.8-10.8)
[2024-09-27 06:56] LABS: Alanine Aminotransferase 18 U/L (12-78); Albumin Level 3.9 g/dl (3.5-5.0); Albumin/Globulin Ratio 1.6 (1.1-1.8); Alkaline Phosphatase 135 U/L (38-126); Anion Gap 10.1 mEq/L (5-15); Aspartate Amino Transferase 27 U/L (17-59); Bilirubin,Total 0.2 mg/dl (0.2-1.3); Blood Urea Nitrogen 28 mg/dl (9-20); Calcium 9.0 mg/dl (8.4-10.2); Carbon Dioxide 36 mmol/L (22.0-30.0); Chloride 96 mmol/L (98-107); Creatinine Clearance Estimated 46 mL/min (50-200); Creatinine,Serum 2.00 mg/dl (0.66-1.25); Estimated Glomerular Filt Rate 32 ml/min (>60); GFR (African American) 39 ML/MIN (>60); Globulin 2.5 g/dL (1.3-3.2); Glucose 223 mg/dl (74-100); Magnesium 1.9 mg/dl (1.6-2.3); Potassium 4.1 mmoL/L (3.5-5.1); Sodium 138 mmol/L (136-145); Total Protein,Serum 6.4 g/dl (6.3-8.2)
[2024-09-27 08:00] VITALS: BP 132/65; PULSE 80; PULSE 93; RESP 18; TEMP 36.4; O2SAT 91
[2024-09-27] MEDS: ASPIRIN EC 81MG TABLET 81 MG PO (08:05)
[2024-09-27] MEDS: GABAPENTIN 300MG CAPSULE 300 MG PO ×2 (08:05→12:04)
[2024-09-27] MEDS: FUROSEMIDE 40 MG TABLET PO (08:05)
[2024-09-27] MEDS: ALLOPURINOL 100 MG PO (08:06)
[2024-09-27] MEDS: *PAT OWN MED* CLOPIDOGREL 75MG TAB 75 MG PO (08:06)
[2024-09-27 12:12] LABS: POC Glucose,Bedside 311 (70-110)
[2024-09-27 14:12] LABS: Cortisol,AM 3.4 ug/dL (6.2-19.4)
--- NOTE | 2024-09-27 14:12 | EXP.DC.SUM ---
General Admission date:: 09/26/24 Discharge date: 09/27/24 HPI HPI HPI: Braeden Palmer is a 84-year-old male with a medical history of metastatic prostate cancer (formerly on abiraterone and prednisone discontinued in early August), HFpEF, BPH, type 2 diabetes, CAD, GERD, gout who presents with few day onset of worsening shortness of breath, exercise intolerance, hypoxia at home. Patient was recently discharged from our facility in stable condition 2 days ago after treatment for HFpEF exacerbation. He was advised to increase his Lasix to 80 mg twice daily and continue his prednisone 5 mg which she had discontinued 2 weeks prior. Unfortunately, patient seemingly did not understand this and is instead taking Lasix 80 mg daily, and has not restarted prednisone 5 mg. He states he has been having shortness of breath over the past 2 days since discharge and his pulse ox at home was showing 88%. This was corroborated on arrival. I advised IV Lasix 60 mg challenge in the ED, but patient continued to require 2 L nasal cannula. Therefore, I discussed case with ED provider and decision made to admit patient for acute hypoxic respiratory failure from mild HFpEF exacerbation. Hospital Course Hospital Course Hospital Course: Braeden Palmer is a 84-year-old male with a medical history of metastatic prostate cancer (formerly on abiraterone and prednisone discontinued in early August), HFpEF, BPH, type 2 diabetes, CAD, GERD, gout who presents with few day onset of worsening shortness of breath, exercise intolerance, hypoxia at home. Patient was recently discharged from our facility in stable condition 2 days ago after treatment for HFpEF exacerbation. He was advised to increase his Lasix to 80 mg twice daily and continue his prednisone 5 mg which she had discontinued 2 weeks prior. Unfortunately, patient seemingly did not understand this and is instead taking Lasix 80 mg daily, and has not restarted prednisone 5 mg. He states he has been having shortness of breath over the past 2 days since discharge and his pulse ox at home was showing 88%. This was corroborated on arrival. I advised IV Lasix 60 mg challenge in the ED, but patient continued to require 2 L nasal cannula. Unable to set up O2 for discharge during the night. Therefore, I discussed case with ED provider and decision made to admit patient for acute hypoxic respiratory failure from mild HFpEF exacerbation. #Acute hypoxic respiratory failure - improved #HFpEF exacerbation - improved Patient was treated with IV diuresis, patient had good urine output, patiennt cr is around patient baseline, patient mentions he thinks he is back to his baseline status, patient is requesting to be discharged and mentions he no longer has SOB while walking. Exam Data for Last 24 hours Vital signs and Labs for Last 24 Hours: Temp Pulse Resp BP Pulse Ox O2 Del Method O2 Flow Rate 97.6 F 93 H 18 132/65 91 L Room Air 2 09/27/24 08:00 09/27/24 08:00 09/27/24 08:00 09/27/24 08:00 09/27/24 08:00 09/27/24 13:00 09/27/24 09:00 Laboratory Results - last 24 hr 09/26/24 16:16: POC Glucose 370 H* 09/26/24 19:41: POC Glucose 357 H* 09/27/24 05:30: WBC 6.8, RBC 3.00 L, Hgb 10.0 L, Hct 30.7 L, MCV 102.3 H, MCH 33.3 H, MCHC 32.6, RDW 13.8, Plt Count 256, MPV 10.0, Neut % (Auto) 58.1, Lymph % (Auto) 30.7, [place] % (Auto) 9.4 H, Eos % (Auto) 1.2, Baso % (Auto) 0.3, Neut # (Auto) 4.0, Lymph # (Auto) 2.1, [place] # (Auto) 0.6, Eos # (Auto) 0.1, Baso # (Auto) 0.0, Sodium 138, Potassium 4.1, Chloride 96 L, Carbon Dioxide 36 H, Anion Gap 10.1, BUN 28 H, Creatinine 2.00 H, Estimated Creat Clear 46, Estimated GFR 32 L, Est GFR ( Amer) 39 L, Glucose 223 H, Calcium 9.0, Magnesium 1.9, Total Bilirubin 0.2, AST 27, ALT 18, Alkaline Phosphatase 135 H, Total Protein 6.4, Albumin 3.9 D, Globulin 2.5, Albumin/Globulin Ratio 1.6 09/27/24 05:48: POC Glucose 263 H 09/27/24 12:02: POC Glucose 311 H* I & O for Last 24 hours: Intake & Output 09/24/24 09/25/24 09/26/24 09/27/24 23:59 23:59 23:59 23:59 Intake Total 1480 / 1720 1060 / 1060 Output Total 1350 / 2150 2200 / 2200 Balance 130 / -430 -1140 / -1140 Weight 104.326 kg 108.499 kg 123 kg Microbiology Reports for the Last 24 Hours: Microbiology 09/25/24 23:03 Blood Blood Culture - Preliminary NO GROWTH AFTER 24 HOURS 09/25/24 22:50 Blood Blood Culture - Preliminary NO GROWTH AFTER 24 HOURS Constitutional Constitutional: no acute distress *Routine HEENT Exam Head: Present normocephalic Eye: Present EOMI and PERRL ENT: Present mucous membranes moist *Routine Neck Exam Neck: Present supple; Absent lymphadenopathy *Routine Respiratory Exam Respiratory: Present CTA bilaterally *Routine Cardiovascular Exam Cardiovascular: Present RRR *Routine Abdominal Exam Abdominal: Present soft and normoactive bowel sounds; Absent tenderness *Routine Extremities Exam Extremities: Present edema; Absent cyanosis or clubbing Comments: mild edema b/l LE , per patient this is baseline *Routine Skin Exam Skin: Present warm; Absent rash *Routine Neurological Exam Neurological: Present alert and oriented X3 Results Data Completed and Pending Labs on day of discharge: Labs from last 24 hours 09/27/24 09/27/24 09/27/24 12:02 05:48 05:30 WBC 6.8 RBC 3.00 L Hgb 10.0 L Hct 30.7 L MCV 102.3 H MCH 33.3 H MCHC 32.6 RDW 13.8 Plt Count 256 MPV 10.0 Neut % (Auto) 58.1 Lymph % (Auto) 30.7 [place] % (Auto) 9.4 H Eos % (Auto) 1.2 Baso % (Auto) 0.3 Neut # (Auto) 4.0 Lymph # (Auto) 2.1 [place] # (Auto) 0.6 Eos # (Auto) 0.1 Baso # (Auto) 0.0 Sodium 138 Potassium 4.1 Chloride 96 L Carbon Dioxide 36 H Anion Gap 10.1 BUN 28 H Creatinine 2.00 H Estimated Creat Clear 46 Estimated GFR 32 L Est GFR ( Amer) 39 L Glucose 223 H POC Glucose 311 H* 263 H Calcium 9.0 Magnesium 1.9 Total Bilirubin 0.2 AST 27 ALT 18 Alkaline Phosphatase 135 H Total Protein 6.4 Albumin 3.9 D Globulin 2.5 Albumin/Globulin Ratio 1.6 09/26/24 09/26/24 19:41 16:16 WBC RBC Hgb Hct MCV MCH MCHC RDW Plt Count MPV Neut % (Auto) Lymph % (Auto) [place] % (Auto) Eos % (Auto) Baso % (Auto) Neut # (Auto) Lymph # (Auto) [place] # (Auto) Eos # (Auto) Baso # (Auto) Sodium Potassium Chloride Carbon Dioxide Anion Gap BUN Creatinine Estimated Creat Clear Estimated GFR Est GFR ( Amer) Glucose POC Glucose 357 H* 370 H* Calcium Magnesium Total Bilirubin AST ALT Alkaline Phosphatase Total Protein Albumin Globulin Albumin/Globulin Ratio Preliminary micro results at discharge 09/25/24 23:03 Blood Culture - Preliminary Blood NO GROWTH AFTER 24 HOURS 09/25/24 22:50 Blood Culture - Preliminary Blood NO GROWTH AFTER 24 HOURS DS: Diagnosis Discharge Diagnosis (1) CAD (coronary artery disease): Status: Acute Code(s): I25.10 - Atherosclerotic heart disease of [place] coronary artery without angina pectoris (2) Adrenal insufficiency: Status: Acute Code(s): E27.40 - Unspecified adrenocortical insufficiency (3) Acute hypoxic respiratory failure: Status: Acute Code(s): J96.01 - Acute respiratory failure with hypoxia Meds Home Medications and Allergies Home Medications ?Medication ?Instructions ?Recorded ?Confirmed ?Type aspirin 81 mg tablet,delayed 81 mg PO DAILY 10/19/18 09/26/24 History release (Adult Low Dose Aspirin) simvastatin 40 mg tablet 40 mg PO HS #90 tabs 04/23/24 09/26/24 Rx calcitriol 0.25 mcg capsule 0.25 mcg PO MOWEFR #36 caps 05/04/24 09/26/24 Rx tamsulosin 0.4 mg capsule 0.4 mg PO HS #90 caps 05/15/24 09/26/24 Rx clopidogrel 75 mg tablet 75 mg PO DAILY #90 tabs 07/06/24 09/26/24 Rx gabapentin 300 mg capsule 300 mg PO TID #270 caps 07/06/24 09/26/24 Rx hydralazine 10 mg tablet 20 mg (2 x 10 mg) PO BID #180 tabs 07/09/24 09/26/24 Rx allopurinol 100 mg tablet 100 mg PO BID #180 tabs 08/06/24 09/26/24 Rx famotidine 20 mg tablet 20 mg PO DAILY #90 tabs 09/12/24 09/26/24 Rx pantoprazole 40 mg tablet,delayed 40 mg PO DAILY 09/23/24 09/26/24 History release amlodipine 5 mg tablet 5 mg PO BID 09/26/24 09/26/24 History cholecalciferol (vitamin D3) 50 50 mcg PO DAILY 09/26/24 09/26/24 History mcg (2,000 unit) capsule (Vitamin D3) coenzyme Q10 100 mg capsule 100 mg PO DAILY 09/26/24 09/26/24 History (CoQ-10) mecobalamin (vitamin B12) 1,000 1,000 mcg PO DAILY 09/26/24 09/26/24 History mcg chewable tablet (B12 Active) prednisone 5 mg tablet 5 mg PO DAILY #30 tabs 09/26/24 Rx furosemide 40 mg tablet 40 mg PO BIDL 30 days #60 tabs 09/27/24 Rx prednisone 5 mg tablet 5 mg PO DAILY 7 days #7 tabs 09/27/24 Rx New Prescriptions to Start Prescriptions: furosemide Juarez Her prednisone Portillo,Wyatt prednisone Arden,Juarez Allergies Allergy/AdvReac Type Severity Reaction Status Date / Time No Known Allergies Allergy Verified 07/09/24 11:45 Discharge Plan Disposition Patient Disposition: Home, Self-Care Condition: Good Follow up Plan Follow up with: Christopher Yadav MD [Primary Care Provider, Medical] - Enter time for follow up Prescriptions/Medication Reconciliation: New prednisone 5 mg tablet 5 mg PO DAILY Qty: 30 0RF furosemide 40 mg Tablet 40 mg PO BIDL 30 Days Qty: 60 0RF prednisone 5 mg Tablet 5 mg PO DAILY 7 Days Qty: 7 0RF Continued aspirin [Adult Low Dose Aspirin] 81 mg tablet,delayed release (DR/EC) 81 mg PO DAILY hydralazine 10 mg tablet 20 mg PO BID Qty: 180 1RF simvastatin 40 mg tablet 40 mg PO HS Qty: 90 1RF calcitriol 0.25 mcg capsule 0.25 mcg PO MOWEFR Qty: 36 1RF tamsulosin 0.4 mg capsule 0.4 mg PO HS Qty: 90 1RF clopidogrel 75 mg tablet 75 mg PO DAILY Qty: 90 1RF gabapentin 300 mg capsule 300 mg PO TID Qty: 270 1RF allopurinol 100 mg tablet 100 mg PO BID Qty: 180 1RF famotidine 20 mg tablet 20 mg PO DAILY Qty: 90 1RF pantoprazole 40 mg tablet,delayed release (DR/EC) 40 mg PO DAILY amlodipine 5 mg tablet 5 mg PO BID Patient Comments: TAKE 1 TABLET BY MOUTH TWICE DAILY FOR BLOOD PRESSURE coenzyme Q10 [CoQ-10] 100 mg Capsule 100 mg PO DAILY cholecalciferol (vitamin D3) [Vitamin D3] 50 mcg (2,000 unit) Capsule 50 mcg PO DAILY mecobalamin (vitamin B12) [B12 Active] 1,000 mcg Tablet,Chewable 1,000 mcg PO DAILY Discontinued furosemide [Lasix] 40 mg tablet 80 mg PO BIDL 30 Days Qty: 120 0RF Problem Reconciliation Problems Reviewed?: Yes Patient Discharge Instructions ACTIVITY: Ambulate as tolerated DIET: low salt diet Patient Instructions: DI for Respiratory Failure, Stop Light Heart Failure Print Language: Albanian Providers Primary Care Provider: Christopher Yadav Admit Provider: Wyatt Nath Attending Provider: Wyatt Nath
--- NOTE | 2024-09-28 10:25 | SW/DCPLANNER ---
Spoke with patient on the phone. Patient stated that he is doing good. Patient stated that he is aware of his upcoming appointments. Patient stated that he was able to get his new medicine picked up from the pharmacy. Patient stated that he has no concerns or questions at this time. Baldev Flores
== END 2024-09-27 15:42 | disposition home or self-care (01) ==
LOC: ER 09-26 02:08 → 2ND 09-26 02:10
PROVIDERS: Student in an Organized Health Care Education/Training Program; Admitting Provider Student in an Organized Health Care Education/Training Program; Emergency Provider Emergency Medicine; PCP Internal Medicine; Visit Provider Student in an Organized Health Care Education/Training Program
DX: J96.01 Acute respiratory failure with hypoxia (principal); E27.40 Unspecified adrenocortical insufficiency; I25.10 Atherosclerotic heart disease of native coronary artery without angina pectoris; I13.0 Hypertensive heart and chronic kidney disease with heart failure and stage 1 through stage 4 chronic kidney disease, or unspecified chronic kidney disease; E11.22 Type 2 diabetes mellitus with diabetic chronic kidney disease; I50.30 Unspecified diastolic (congestive) heart failure; N40.0 Benign prostatic hyperplasia without lower urinary tract symptoms; K21.9 Gastro-esophageal reflux disease without esophagitis; N18.9 Chronic kidney disease, unspecified; N17.9 Acute kidney failure, unspecified; E78.5 Hyperlipidemia, unspecified; I48.91 Unspecified atrial fibrillation; K57.90 Diverticulosis of intestine, part unspecified, without perforation or abscess without bleeding; K80.20 Calculus of gallbladder without cholecystitis without obstruction; I31.39 Other pericardial effusion (noninflammatory); I44.0 Atrioventricular block, first degree; M10.9 Gout, unspecified; Z87.891 Personal history of nicotine dependence; Z95.5 Presence of coronary angioplasty implant and graft; Z86.69 Personal history of other diseases of the nervous system and sense organs; Z86.16 Personal history of COVID-19; Z85.46 Personal history of malignant neoplasm of prostate; Z79.02 Long term (current) use of antithrombotics/antiplatelets; Z79.82 Long term (current) use of aspirin; Z79.899 Other long term (current) drug therapy
CPT/HCPCS: 36415; 71045; 71275; 74177; 80053; 82533; 82550; 82803; 82962; 83690; 83735; 83880; 84484; 85025; 87040; 93005; 96365; 96375; 96376; 97163; 99285; G0378; J1650; J1720; J1938; J3475; J7512; Q9967

== ENCOUNTER 2024-10-08 11:51 | Outpatient (CLI) | payer MEDICARE, BC, SELFPAY ==
--- OUTSIDE RECORDS SUMMARY | 2024-09-13 16:45 | XMS_ITS | Encounter Summary ---
Author Organization [employer] ([place], [place], [place], [place]) Address [address] [place] [address] Care Team Providers Care Shirt Trimmer Name Role Phone Christopher Yadav MD Primary Care Provider [phone] Encounter Details Date Type Department Care Team (Latest Contact Info) Description 09/13/2024 4:45 PM EDT Lab Patient [facility] [address] [place] [address] Xochitl Serra MD [address] [place] [phone] Prostate cancer (HCC) Social History Tobacco [...] file 03/21/2023 Family and Community Support Answer Javris e Recorded Help with Day to Day Activities Not on file 03/11/2023 Feeling Lonely or Isolated Not on file 03/11 Educational Attainment Answer Date Ehsan rded Speak language other than Omani at home Not on file 03/11/2023 Want [...] Description 12/17/2024 9:45 AM EDT Office Visit [facility] - [address] [place] [address] Xochitl Serra MD [address] [place] [phone] documented as of this encounter Procedures [...] - 720 ng/dL 09/17/2024 12:18 AM EDT [facility] Comment: INTERPRETIVE INFORMATION: Testosterone by Immunoassay Testosterone immunoassays are both imprecise and inaccurate at low testosterone concentrations, such as those found in children and cisgender females. For these individuals, testing by mass spectrometry is recommended; refer to Testosterone (Adult Females, Children, or Individuals on Testosterone-Suppressing Hormone Therapy) ([employer] (T[employer]) test code [id number]). Free or bioavailable testosterone measurements may provide supportive information. For individuals on testosterone hormone therapy, refer to cisgender male reference intervals. No reference intervals have been established for males younger than 14 years or for cisgender females. For a complete set of all established reference intervals, refer to l[employer]/Tests/Pub/[id number]. Sex Hormone Binding Globulin 64 19 - 76 nmol/L 09/17/2024 12:18 AM EDT [facility] Comment: REFERENCE INTERVAL: Sex Hormone Binding Globulin Access complete set of age- and/or gender-specific reference intervals for this test in the [employer] ([facility]) Laboratory Test Directory (Ansible). Testosterone, Free Calculation <1(L) 47 - 244 pg/mL 09/17/2024 12:18 AM EDT [facility] Comment: INTERPRETIVE INFORMATION: Testosterone, Free Calculation Free [...] Children, or Individuals on Testosterone-Suppressing Hormone Therapy) ([employer] (TEN) test code [id number]). For individuals on testosterone hormone therapy, refer to cisgender male reference intervals. No reference intervals have been established for males younger than 14 years or for cisgender females. For a complete set of all established reference intervals, refer to [employer].Ansible/Tests/Pub/[id number]. Testosterone, Percentage Free <1.1(L) 1.6 - 2.9 % 09/17/2024 12:18 AM EDT [facility] Comment: Performed By: [facility] [address] [place] [address] Nursing Clinical Director: Cameron Javier MD, PhD CLIA Number: [id number] Blood Venipuncture / Unknown 09/13/2024 1:26 PM EDT 09/13/2024 1:26 PM EDT Xochitl Serra MD LAB BLOOD ORDERABLES Final Res ult Performing Organization Address City/[facility]/ZIP Co de Phone Number [facility] [address] [place] [address], [facility] [phone] * (ABNORMAL) PSA (Blazer, LUCIA, [place], [place], [facility]) (09/13/2024 1:26 PM EDT) Pathologist [facility] PSA diagnostic (ng/mL) <0.13(L) 0.13 - 4 ng/mL 09/13/2024 8:40 PM EDT [facility] Blood Venipuncture / Unknown 09/13/2024 1:26 PM EDT 09/13/2024 1:26 PM EDT Xochitl Serra MD LAB BLOOD ORDERABLES Final Res ult [facility] [address] [place] [address], [facility] [phone] * (ABNORMAL) CMP (09/13/2024 1:26 PM EDT) Sodium 140 136 - 145 meq/L 09/13/2024 3:48 PM EDT [facility] Potassium 4.5 3.5 - 5.1 meq/L 09/13/2024 3:48 PM EDT [facility] Chloride 101 98 - 107 meq/L 09/13/2024 3:48 PM EDT [facility] CO2 33(H) 21 - 32 meq/L 09/13/2024 3:48 PM EDT [facility] Calcium 9.3 8.5 - 10.1 mg/dL 09/13/2024 3:48 PM EDT [facility] Glucose 237(H) 74 - 100 mg/dL 09/13/2024 3:48 PM EDT [facility] BUN 39(H) 7 - 18 mg/dL 09/13/2024 3:48 PM EDT [facility] Creatinine 1.93(H) 0.70 - 1.20 mg/dL 09/13/2024 3:48 PM EDT [facility] BUN/Creatinine 20 09/13/2024 3:48 PM EDT [facility] Albumin 3.6 3.4 - 5.0 g/dL 09/13/2024 3:48 PM EDT [facility] Alkaline Phosphatase 151(H) 46 - 116 U/L 09/13/2024 3:48 PM EDT [facility] ALT 19 12 - 78 U/L 09/13/2024 3:48 PM EDT [facility] AST 17 15 - 37 U/L 09/13/2024 3:48 PM EDT [facility] Total Bilirubin 0.5 0.2 - 1.0 mg/dL 09/13/2024 3:48 PM EDT [facility] Protein, Total 7.0 6.4 - 8.2 gm/dL 09/13/2024 3:48 PM EDT [facility] Anion Gap 11 11 - 22 09/13/2024 3:48 PM EDT [facility] A/G Ratio 1.1 09/13/2024 3:48 PM EDT [facility] Globulin 3.4 g/dL 09/13/2024 3:48 PM EDT [facility] Osmolality Calc 296.5 mOsm/kg 3:48 PM EDT [facility] eGFR (mL/min/1.73m2) 33(L) >=60 mL/min/1.7 3m2 09/13/2024 3:48 PM EDT [facility] Comment:ESTIMATED GFR IS NOT ACCURATE CREATININE CLEARANCE IN PREDICTING GLOMERULAR FILTRATION RATE. ESTIMATED GFR IS NOT APPLICABLE FOR DIALYSIS PATIENTS. Blood Venipuncture / Unknown 09/13/2024 1:26 PM EDT 09/13/2024 1:26 PM EDT us Xochitl Serra MD LAB BLOOD ORDERABLES Final Res ult [facility] [address] [place] [address] * (ABNORMAL) CBC with Diff (09/13/2024 1:26 PM EDT) WBC 9.3 4.8 - 10.8 K/ L 09/13/2024 1:39 PM EDT [facility] RBC 3.28(L) 3.80 - 5.20 M/ L 09/13/2024 1:39 PM EDT [facility] Hemoglobin 11.3(L) 12.8 - 17.4 GM/DL 09/13/2024 1:39 PM EDT [facility] Hematocrit 34.2(L) 39.0 - 51.0 % 09/13/2024 1:39 PM EDT [facility] MCV 104(H) 81 - 101 fL 09/13/2024 1:39 PM EDT [facility] MCH 34.5(H) 27.0 - 34.0 pg 09/13/2024 1:39 PM EDT [facility] MCHC 33.0 32.0 - 36.0 GM/DL 09/13/2024 1:39 PM EDT [facility] RDW 14.5 11.5 - 14.5 % 09/13/2024 1:39 PM EDT [facility] Platelets 202 150 - 400 K/CU MM 09/13/2024 1:39 PM EDT [facility] MPV 9.9 9.4 - 12.4 fL 09/13/2024 1:39 PM EDT [facility] Nucleated Red Blood Cell 0.0 0 - 0.2 % 09/13/2024 1:39 PM EDT [facility] % Neutros 75 37 - 80 % 09/13/2024 1:39 PM EDT [facility] % Lymphs 16 10 - 50 % 09/13/2024 1:39 PM EDT [facility] % Monos 7 5 - 13 % 09/13/2024 1:39 PM EDT [facility] % Eos 0 0 - 7 % 09/13/2024 1:39 PM EDT [facility] % Baso 0 0 - 3 % 09/13/2024 1:39 PM EDT [facility] NRBC Absolute <0.01 0 - 0.012 K/ul 09/13/2024 1:39 PM EDT [facility] # Neutros 7.02(H) 2.00 - 6.90 K/ L 09/13/2024 1:39 PM EDT [facility] # Lymphs 1.51 0.60 - 3.40 K/ L 09/13/2024 1:39 PM EDT [facility] # Monos 0.69 0.00 - 0.90 K/ L 09/13/2024 1:39 PM EDT [facility] # Eos 0.03 0.00 - 0.70 K/ L 09/13/2024 1:39 PM EDT [facility] # Baso 0.02 0.00 - 0.20 K/ L 09/13/2024 1:39 PM EDT [facility] Immature Granulocytes-Re lative 0.50 % 09/13/2024 1:39 PM EDT [facility] # IG 0.05(H) 0.00 - 0.00 K/uL 09/13/2024 1:39 PM EDT [facility] Blood Venipuncture / Unknown 09/13/2024 1:26 PM EDT 09/13/2024 1:26 PM EDT Narrative [facility] - 09/13/2024 1:39 PM [...] MD LAB BLOOD ORDERABLES Final Res ult [facility] [address] [phone] documented in this encounter Visit Diagnoses Diagnosis Prostate cancer (HCC) Malignant neoplasm of prostate documented in this encounter Care Teams Shirt Trimmer Relationship Specialty Start Date End Date Christopher Yadav MD [address] [place] [address] PCP - General General Internal Medicine 03/15/23 documented as of this encounter
--- OUTSIDE RECORDS SUMMARY | 2024-09-17 09:00 | XMS_ITS | Encounter Summary ---
Author Organization [email or web address] ([place], [place], [place], [place]) Address [address] [place] [address] Care Team Providers Care Volunteer Recruiter Name Role Phone Christopher Yadav MD Primary Care Provider [phone] Reason for Visit * Reason Comments Follow-up Prostate Cancer Encounter Details Date Type Department Care Team (Late st Contact Info) Description 09/17/2024 9:00 AM EDT Office Visit [facility] - [address] [place] [address] Xochitl Serra MD [address] [address] Prostate cancer (HCC) (Primary Dx); [...] Date Ehsan rded Speak language other than Bruneian at home Not on file 03/11/2023 Want [...] ANTERIOR APPROACH; Surgeon: Eric Parkinson MD; Location: [facility]; Service: Orthopaedic Surgery; Laterality: Left; EXACTECH, HANA TABLE, C-ARM & PRINTER, CELL SAVER COLONOSCOPY multiple CORONARY ANGIOPLASTY WITH STENT PLACEMENT EYE SURGERY Bilateral catract extraction MANDIBLE SURGERY [place] BX PROSTATE STRTCTC SATURATION SAMPLING IMG GID N/A 08/16/2023 Procedure: BIOPSY, PROSTATE, PERINEAL APPROACH; Surgeon: Samuel Mata MD; Location: [facility]; Service: Urology; Laterality: N/A; [facility] [id number] Social History Socioeconomic History Marital status: / [...] Children, or Individuals on Testosterone-Suppressing Hormone Therapy) ([employer] test code 3336494). Free or bioavailable testosterone measurements may provide supportive information. For individuals on testosterone hormone therapy, refer to cisgender male reference intervals. No reference intervals have been established for males younger than 14 years or for cisgender females. For a complete set of all established reference intervals, refer to [employer]/Tests/Pub/[id number]. Sex Hormone Binding Globulin 09/13/2024 64 19 - 76 nmol/L Final REFERENCE INTERVAL: Sex Hormone Binding Globulin Access complete set of age- and/or gender-specific reference intervals for this test in the qunb Test Directory ([employer]). Testosterone, Free Calculation 09/13/2024 <1 (L) 47 [...] Children, or Individuals on Testosterone-Suppressing Hormone Therapy) ([employer] test code 6128861). For individuals on testosterone hormone therapy, refer to cisgender male reference intervals. No reference intervals have been established for males younger than 14 years or for cisgender females. For a complete set of all established reference intervals, refer to [employer]/Tests/Pub/[id number]. Testosterone, Percentage Free 09/13/2024 <1.1 (L) 1.6 - 2.9 % Final Performed By: [email or web address] | [employer] [address] [place] [address] Tempering Oven Operator: Cameron Javier MD, PhD CLIA Number: [id number] Radiology Results (last 7 days) No results [...] EDT PET/CT PSMA VERTEX TO THIGH Order: [id number] Impression Multifocal intense PSMA-avid uptake within the [...] scanner: Siemens Biograph 40 mCT. PET/CT acquisition: Cxazwr-pw-raw-thighs. Standardized uptake value (SUV): Corrected for body weight only. CT: Low-dose, ndk-jtosya-isdd, without intravenous contrast. TOTAL DLP (Dose Length [...] is going to follow up with his Red Cross Worker in 2 weeks. He is going to [...] Description 12/17/2024 9:45 AM EDT Office Visit [facility] - [address] [place] [address] Xochitl Serra MD [address] [address] Scheduled Orders Name Type Priority Associated Diagnoses Orde r Schedule CBC with Diff Lab Routine Prostate cancer (HCC) Renal dysfunction Expected: 09/17/2024, Expires: 09/17/2025 CMP Lab Routine Prostate cancer (HCC) Renal dysfunction Expected: 09/17/2024, Expires: 09/17/2025 PSA (LUCIA Thompson Corbin, [facility]) Lab Routine Prostate cancer (HCC) Renal dysfunction Expected: 09/17/2024, Expires: 09/17/2025 documented as of this encounter Visit Diagnoses Diagnosis Prostate cancer (HCC)- Primary Malignant neoplasm of prostate Renal dysfunction Unspecified disorder of kidney and ureter documented in this encounter Care Teams Volunteer Recruiter Relationship Specialty Start Date End Date Christopher Yadav MD [address] [place] [address] PCP - General General Internal Medicine 03/15/23 documented as of this encounter"
--- OUTSIDE RECORDS SUMMARY | 2024-10-08 11:56 | XMS_ITS | Encounter Summary ---
Author Organization Healthcare Address [address] [place] [address] Care Team Providers Care Public Health Dentist Name Role Phone Christopher Yadav MD Primary Care Provider [phone] Encounter Details Date Type Department Care Team (Late st Contact Info) Description 07/27/2023 Orders Only External Location [address] [place] [address] Provider, External Social History Tobacco Use Types [...] on filedocumented in this encounter Care Teams Public Health Dentist Relationship Specialty Start Date End Date Christopher Yadav MD [address] [facility] [address] [place] [address] PCP - General 07/11/20 documented as of this encounter
--- OUTSIDE RECORDS SUMMARY | 2024-10-08 11:56 | XMS_ITS | Referral Summary ---
Author Organization [employer] ([place], [place], [place], [place]) Address [address] [place] [address] Care Team Providers Care Medical Logistics Specialist Name Role Phone Christopher Yadav MD Primary Care Provider Encounters Date Type Department Care Team Description 09/25/2024 Telephone [facility] [address] [place] [address] Mary Jane Marley APRN Abnormal Imaging Result 09/17/2024 Travel 09/17/2024 9:00 AM EDT Office Visit [facility] [address] [place] [address] Xochitl Serra MD Prostate cancer (HCC) (Primary Dx); Renal dysfunction 09/13/2024 Travel 09/13/2024 4:45 PM EDT Lab Patient Walk-[facility] [address] [place] [address] Xochitl Serra MD Prostate cancer (HCC) from [...] Date Ehsan rded Speak language other than Emirati at home Not on file 03/11/2023 Want [...] Description 12/17/2024 9:45 AM EDT Office Visit [facility] - [address] [place] [address] Xochitl Serra MD [address] [address] Medical Devices Implanted Type Area Dish Technician Device Identifier Shelf Expiration Date Model / Serial / Lot Stents-Machado ry Stents-Coron maribel Heart Head Fem Delta 36mm +0mm - [id number] Implanted:Qty : 1 on 03/21/2023 by Eric Parkinson MD at [facility] [employer] Left: Hip [employer] [id number] 05/31/2027 17036 / [id number] / Stem Fem Pf Sz9 113mm - [id number] Implanted:Qty : 1 on 03/21/2023 by Eric Parkinson MD at [facility] [employer] Left: Hip [employer] [id number] 10/03/2027 / [id number] / Liner Ntrl Altn Xle Grp6 36mm 6 - [id number] Implanted:Qty : 1 on 03/21/2023 by Eric Parkinson MD at [facility] [employer] Left: Hip [employer] [id number] 03/17/2027 / [id number] / Cup Clstr-Hole Altn Pcg6 54mm 52-574-14 4 - [id number] Implanted:Qty : 1 on 03/21/2023 by Eric Parkinson MD at [facility] [employer] Left: Hip [employer] [id number] 10/25/2032 / [id number] / Procedures Procedure Name Priority Date/Time Associated [...] 10.8 K/ L 09/13/2024 1:39 PM EDT [facility] RBC 3.28(L) 3.80 - 5.20 M/ L 09/13/2024 1:39 PM EDT [facility] Hemoglobin 11.3(L) 12.8 - 17.4 GM/DL 09/13/2024 1:39 PM EDT [facility] Hematocrit 34.2(L) 39.0 - 51.0 % 09/13/2024 1:39 PM EDT [facility] MCV 104(H) 81 - 101 fL 09/13/2024 1:39 PM EDT [facility] MCH 34.5(H) 27.0 - 34.0 pg 09/13/2024 1:39 PM EDT [facility] MCHC 33.0 32.0 - 36.0 GM/DL 09/13/2024 1:39 PM EDT [facility] RDW 14.5 11.5 - 14.5 % 09/13/2024 1:39 PM EDT [facility] Platelets 202 150 - 400 K/CU MM 09/13/2024 1:39 PM EDT [facility] MPV 9.9 9.4 - 12.4 fL 09/13/2024 1:39 PM EDT [facility] Nucleated Red Blood Cell 0.0 0 - 0.2 % 09/13/2024 1:39 PM EDT [facility] % Neutros 75 37 - 80 % 09/13/2024 1:39 PM EDT [facility] % Lymphs 16 10 - 50 % 09/13/2024 1:39 PM EDT [facility] % Monos 7 5 - 13 % 09/13/2024 1:39 PM EDT [facility] % Eos 0 0 - 7 % 09/13/2024 1:39 PM EDT [facility] % Baso 0 0 - 3 % 09/13/2024 1:39 PM EDT [facility] NRBC Absolute <0.01 0 - 0.012 K/ul 09/13/2024 1:39 PM EDT [facility] # Neutros 7.02(H) 2.00 - 6.90 K/ L 09/13/2024 1:39 PM EDT [facility] # Lymphs 1.51 0.60 - 3.40 K/ L 09/13/2024 1:39 PM EDT [facility] # Monos 0.69 0.00 - 0.90 K/ L 09/13/2024 1:39 PM EDT [facility] # Eos 0.03 0.00 - 0.70 K/ L 09/13/2024 1:39 PM EDT [facility] # Baso 0.02 0.00 - 0.20 K/ L 09/13/2024 1:39 PM EDT [facility] Immature Granulocytes-Re lative 0.50 % 09/13/2024 1:39 PM EDT [facility] # IG 0.05(H) 0.00 - 0.00 K/uL 09/13/2024 1:39 PM EDT [facility] Blood Venipuncture / Unknown 09/13/2024 1:26 PM EDT 09/13/2024 1:26 PM EDT Narrative [facility] - 09/13/2024 1:39 PM EDT [...] MD LAB BLOOD ORDERABLES Final Res ult [facility] [address] [phone] * (ABNORMAL) Testosterone Free And Total, Adult Male(SENDOUT) (09/13/2024 1:26 PM EDT) Testosterone by Immunoassay <3(L) 300 - 720 ng/dL 09/17/2024 12:18 AM EDT [facility] Comment: INTERPRETIVE INFORMATION: Testosterone by Immunoassay Testosterone immunoassays are both imprecise and inaccurate at low testosterone concentrations, such as those found in children and cisgender females. For these individuals, testing by mass spectrometry is recommended; refer to Testosterone (Adult Females, Children, or Individuals on Testosterone-Suppressing Hormone Therapy) ([facility] test code 5405934). Free or bioavailable testosterone measurements may provide supportive information. For individuals on testosterone hormone therapy, refer to cisgender male reference intervals. No reference intervals have been established for males younger than 14 years or for cisgender females. For a complete set of all established reference intervals, refer to [email or web address]/Tests/Pub/[id number]. Sex Hormone Binding Globulin 64 19 - 76 nmol/L 09/17/2024 12:18 AM EDT [facility] Comment: REFERENCE INTERVAL: Sex Hormone Binding Globulin Access complete set of age- and/or gender-specific reference intervals for this test in the [facility] Test Directory ([facility]). Testosterone, Free Calculation <1(L) 47 - 244 pg/mL 09/17/2024 12:18 AM EDT [facility] Comment: INTERPRETIVE INFORMATION: Testosterone, Free Calculation Free [...] Children, or Individuals on Testosterone-Suppressing Hormone Therapy) ([facility] test code 5323233). For individuals on testosterone hormone therapy, refer to cisgender male reference intervals. No reference intervals have been established for males younger than 14 years or for cisgender females. For a complete set of all established reference intervals, refer to [email or web address]/Tests/Pub/[id number]. Testosterone, Percentage Free <1.1(L) 1.6 - 2.9 % 09/17/2024 12:18 AM EDT [facility] Comment: Performed By: [facility] [address] [place] [address] Route Sales Associate: [place] Javier MD, PhD CLIA Number: [id number] Blood Venipuncture / Unknown 09/13/2024 1:26 PM EDT 09/13/2024 1:26 PM EDT Xochitl Serra MD LAB BLOOD ORDERABLES Final Res ult Performing Organization Address City/[facility]/ZIP Co de Phone Number [facility] [address] [place] [address], [facility] [phone] * (ABNORMAL) PSA ([place]azer, LUCIA, Conner, [place], [facility]) (09/13/2024 1:26 PM EDT) [facility] PSA diagnostic (ng/mL) <0.13(L) 0.13 - 4 ng/mL 09/13/2024 8:40 PM EDT [facility] Blood Venipuncture / Unknown 09/13/2024 1:26 PM EDT 09/13/2024 1:26 PM EDT Xochitl Serra MD LAB BLOOD ORDERABLES Final Res ult Performing Organization Address City/[facility]/ZIP Co de Phone Number [facility] [address] [place] [address], [facility] [phone] * (ABNORMAL) CMP (09/13/2024 1:26 PM EDT) Pathologist [facility] Sodium 140 136 - 145 meq/L 09/13/2024 3:48 PM EDT [facility] Potassium 4.5 3.5 - 5.1 meq/L 09/13/2024 3:48 PM EDT [facility] Chloride 101 98 - 107 meq/L 09/13/2024 3:48 PM EDT [facility] CO2 33(H) 21 - 32 meq/L 09/13/2024 3:48 PM EDT [facility] Calcium 9.3 8.5 - 10.1 mg/dL 09/13/2024 3:48 PM EDT [facility] Glucose 237(H) 74 - 100 mg/dL 09/13/2024 3:48 PM EDT [facility] BUN 39(H) 7 - 18 mg/dL 09/13/2024 3:48 PM EDT [facility] Creatinine 1.93(H) 0.70 - 1.20 mg/dL 09/13/2024 3:48 PM EDT [facility] BUN/Creatinine 20 09/13/2024 3:48 PM EDT [facility] Albumin 3.6 3.4 - 5.0 g/dL 09/13/2024 3:48 PM EDT [facility] Alkaline Phosphatase 151(H) 46 - 116 U/L 09/13/2024 3:48 PM EDT [facility] ALT 19 12 - 78 U/L 09/13/2024 3:48 PM EDT [facility] AST 17 15 - 37 U/L 09/13/2024 3:48 PM EDT [facility] Total Bilirubin 0.5 0.2 - 1.0 mg/dL 09/13/2024 3:48 PM EDT [facility] Protein, Total 7.0 6.4 - 8.2 gm/dL 09/13/2024 3:48 PM EDT [facility] Anion Gap 11 11 - 22 09/13/2024 3:48 PM EDT [facility] A/G Ratio 1.1 09/13/2024 3:48 PM EDT [facility] Globulin 3.4 g/dL 09/13/2024 3:48 PM EDT [facility] Osmolality Calc 296.5 mOsm/kg 3:48 PM EDT [facility] eGFR (mL/min/1.73m2) 33(L) >=60 mL/min/1.7 3m2 09/13/2024 3:48 PM EDT [facility] Comment:ESTIMATED GFR IS NOT ACCURATE CREATININE CLEARANCE IN PREDICTING GLOMERULAR FILTRATION RATE. ESTIMATED GFR IS NOT APPLICABLE FOR DIALYSIS PATIENTS. Blood Venipuncture / Unknown 09/13/2024 1:26 PM EDT 09/13/2024 1:26 PM EDT Xochitl Serra MD LAB BLOOD ORDERABLES Final Res ult Performing Organization Address [facility] Co de Phone Number [facility] [address] [place] [address], [facility] [phone] * (ABNORMAL) Hemoglobin A1c (03/15/2023 11:20 AM EST) Hemoglobin A1C 6.5(H) 4.2 - 6.3 % 03/15/2023 12:24 PM EST [facility] Comment: Hemoglobin A1C levels are related to mean glucose during the preceding 2-3 months. Less than 7% demonstrates glycemic control in diabetic patients. Hemoglobin AlC % Suggested Diagnosis > or = 6.5 Diabetic 5.7 - 6.4 Prediabetic <5.7 Non-diabetic eAVG Glucose 139.85 mg/dL 03/15/2023 12:24 PM EST [facility] Blood Venipuncture / Unknown 03/15/2023 11:20 AM EST 03/15/2023 11:35 AM EST Eric Parkinson MD LAB BLOOD ORDERABLES Fi nal Result Performing Organization Address City/[facility]/ZIP Co de Phone Number [facility] [address] [place] [address], [facility] [phone] from Last 3 Months or Most Recently Relevant to Health Maintenance Insurance MEDICARE PART A B SUPP Advance Directives For more information, please contact: [phone] * Full Code (Latest Code Status on File) Date Activated Date Inactivated Comments 08/16/2023 10:48 AM 08/16/2023 7:35 PM * Full Code Date Activated Date Inactivated Comments 03/21/2023 11:25 AM 03/24/2023 3:00 PM * Full Code Date Activated Date Inactivated Comments 03/21/2023 5:18 AM 03/21/2023 11:25 AM Care Teams Medical Logistics Specialist Relationship Specialty Start Date End Date Christopher Yadav MD [address] [place] [address] [place] [address] PCP - General General Internal Medicine 03/15/23
--- OUTSIDE RECORDS SUMMARY | 2024-10-08 11:56 | XMS_ITS | Encounter Summary ---
Author Organization [employer] ([place], [place], [place], [place]) Address [address] [address] Care Team Providers Care Office System Analyst Name Role Phone Christopher Yadav MD Primary Care Provider [phone] Encounter Details Date Type Department Care Team [...] Date Ehsan rded Speak language other than Welsh at home Not on file 03/11/2023 Want [...] Description 12/17/2024 9:45 AM EDT Office Visit [facility] - [address] [place] [address] Xochitl Serra MD [facility] [address] [address] documented as of this encounter Visit Diagnoses Not on filedocumented in this encounter Care Teams Office System Analyst Relationship Specialty Start Date End Date Christopher Yadav MD [address] [place] [address] [place] [address] PCP - General General Internal Medicine 03/15/23 documented as of this encounter
--- OUTSIDE RECORDS SUMMARY | 2024-10-08 11:56 | XMS_ITS | Encounter Summary ---
Author Organization Healthcare Address [address] [place] [address] Care Team Providers Care Outside Machinist Helper Name Role Phone Christopher Yadav MD Primary Care Provider [phone] Encounter Details Date Type Department Care Team (Late st Contact Info) Description 07/27/2023 Orders Only External Location [address] [place] [address] Provider, External Social History Tobacco Use Types [...] on filedocumented in this encounter Care Teams Outside Machinist Helper Relationship Specialty Start Date End Date Christopher Yadav MD [address] [place] [address] PCP - General 07/11/20 documented as of this encounter
--- OUTSIDE RECORDS SUMMARY | 2024-10-08 11:56 | XMS_ITS | Encounter Summary ---
Author Organization Healthcare Address [address] [place] [address] Care Team Providers Care Memorial Marker Designer Name Role Phone Christopher Yadav MD Primary Care Provider [phone] Encounter Details Date Type Department Care Team (Late st Contact Info) Description 2023 Lab Requisition [facility] [address] [place] [address] Jamil Maynard MD [address] [facility] [address] [place] [id number] Elevated prostate specific antigen (PSA) Social History [...] EDT) Case Report Sugical Pathology Consult Case: [id number] Authorizing Provider: Jamil Maynard MD Collected: 2023 1312 Ordering Location: [facility] Lab Received: 2023 1312 Pathologist: Donna Villalobos MD Specimen: Prostate, [id number] 08/25/2023 10:39 AM EDT [facility] Final Diagnosis PROSTATE, NEEDLE CORE BIOPSIES (REVIEW OF OUTSIDE SLIDES LABELED SM [id number], PROCEDURE DATE 08/16/2023). A. PROSTATE, RIGHT POSTERIOR [...] OF 1 CORE. 08/25/2023 10:39 AM EDT [facility] at 1038 EDT Comment Perineural invasion is identified. Cribriform pattern 4 is also seen. 08/25/2023 10:39 AM EDT [facility] Clinical Information R97.20 - Elevated prostate specific antigen (PSA) [ICD-10-CM] 08/25/2023 10:39 AM EDT [facility] Gross Description A. [id number] Received along with a corresponding pathology report from [facility] Laboratory are 8 slides labeled outside case: [id number] collected on 08/16/2023. 08/25/2023 10:39 AM EDT [facility] Intradepartmental Consultation with Agreement Kely Ghotra MD 08/25/2023 10:39 AM EDT [facility] Tissue Prostate / Unknown 1:12 PM EDT 2023 1:12 PM EDT us Jamil Maynard MD LAB PATHOLOGY ORDERABLES Savanah lucas Result [facility] [address] [place] [address] documented in this encounter Visit Diagnoses Diagnosis Elevated prostate specific antigen (PSA) documented in this encounter Care Teams Memorial Marker Designer Relationship Specialty Start Date End Date Christopher Yadav MD [address] [place] [address] [address] [place] [address] PCP - General 07/11/20 documented as of this encounter
--- OUTSIDE RECORDS SUMMARY | 2024-10-08 11:56 | XMS_ITS | Encounter Summary ---
Author Organization Healthcare Address [address] [place] [address] Care Team Providers Care Pediatric Clinical Nurse Specialist Name Role Phone Christopher Yadav MD Primary Care Provider [phone] Encounter Details Date Type Department Care Team (Late st Contact Info) Description 07/27/2023 Orders Only External Location [address] [place] [address] Provider, External Social History Tobacco Use Types [...] on filedocumented in this encounter Care Teams Pediatric Clinical Nurse Specialist Relationship Specialty Start Date End Date Christopher Yadav MD [address] [facility] [address] [place] [address] PCP - General 07/11/20 documented as of this encounter
--- OUTSIDE RECORDS SUMMARY | 2024-10-08 11:57 | XMS_ITS | Clinical Summary ---
Author Organization Healthcare Address [address] [place] [address] Care Team Providers Care Cosmetic Sales Consultant Name Role Phone Christopher Yadav MD Primary Care Provider [phone] Allergies No known active allergies Medications amLODIPine [...] Screening 1938 [facility]-Medicare Annual Wellness (AWV) 1938 [facility]-/Child/Adol SDOH Screenings 1938 [facility]- SDOH Screenings 1956 [facility]-Adult SDOH Screenings 1956 [facility]-Zoster Vaccines (1 of 2) 1957 [facility]-RSV Vaccine: 60+ Years or (1 - 1-dose 75+ series) 2013 [facility]-DTaP,Tdap,and Td Vaccines (2 - Tdap) 02/28/2022 02/29/2012, 01/16/1998 [facility]-[id number]-61 Vaccine ( season) 2023 02/03/2023, 12/22/2021, 06/25/2021, [...] this topic Medical Devices Implanted Type Area Retail Equipment Associate Device Identifier Shelf Expiration Date Model / Serial / Lot Hip Hip Left: Hip Insurance MEDICARE [facility] Care Teams Cosmetic Sales Consultant Relationship Specialty Start Date End Date Christopher Yadav MD [facility] [address] [place] [address] PCP - General 07/11/20
--- OUTSIDE RECORDS SUMMARY | 2024-10-08 11:57 | XMS_ITS | Encounter Summary ---
Author Organization [employer] ([place], [place], [place], [place]) Address [address] [place] [address] Care Team Providers Care Bakery Supervisor Name Role Phone Christopher Yadav MD Primary Care Provider [phone] Reason for Visit * Reason Onset Date Comments Abnormal Imaging Result 09/25/2024 Encounter Details Date Type Department Care Team (Late st Contact Info) Description 09/25/2024 Telephone [facility] - [place] [address] [facility] [address] [place] [address] Mary Jane Marley APRN [address] [facility] [address] [place] [address] Abnormal Imaging Result Social History [...] Date Ehsan rded Speak language other than Sao [place]ome[place] at home Not on file 03/11/2023 Want [...] of Assessment Author No 03/24/2023 8:05 AM Juliaan Poe RN * Are you blind or [...] Description 12/17/2024 9:45 AM EDT Office Visit [facility] Oncology - [address] [place] [address] Xochitl Serra MD [address] [facility] [address] [place] [address] documented as of this encounter [...] on filedocumented in this encounter Care Teams Bakery Supervisor Relationship Specialty Start Date End Date Christopher Yadav MD [address] [place] [address] PCP - General General Internal Medicine 03/15/23 documented as of this encounter
--- OUTSIDE RECORDS SUMMARY | 2024-10-08 11:57 | XMS_ITS | Clinical Summary ---
Author Organization [employer] ([place], [place], [place], [place]) Address [address] [place] [address] Care Team Providers Care Manager Planning Name Role Phone Christopher Yadav MD Primary Care Provider Allergies No known active allergies Medications amLODIPine [...] Type Department Care Team Description 09/25/2024 Telephone [facility] [place] [address] [place] [address] Mary Jane Marley APRN Abnormal Imaging Result 09/17/2024 9:00 AM EDT Office Visit [facility] - [place] [address] [place] [address] Xochitl Serra MD Prostate cancer (HCC) (Primary Dx); Renal dysfunction 09/17/2024 Travel 09/13/2024 4:45 PM EDT Lab Patient [facility] [address] [place] [address] Xochitl Serra MD Prostate cancer [...] Date Ehsan rded Speak language other than Filipino at home Not on file 03/11/2023 Want [...] Description 12/17/2024 9:45 AM EDT Office Visit [facility] Oncology - [address] [place] [address] Xochitl Serra MD [address] [address] Health Maintenance Due Date Last [...] 12/03/2015, 03/14/2013 Medical Devices Implanted Type Area Dog Or Horse Racing Official Device Identifier Shelf Expiration Date Model / Serial / Lot Stents-Machado ry Stents-Coron maribel Heart Head Fem Delta 36mm +0mm 17036-00 - [id number] Implanted:Qty : 1 on 03/21/2023 by Eric Parkinson MD at [facility] TOTAL JO[employer] Left: Hip [employer]ECH [id number] 05/31/2027 170-36-00 / [id number] / Stem Fem Pf Sz9 113mm - [id number] Implanted:Qty : 1 on 03/21/2023 by Eric Parkinson MD at [facility] [employer] Left: Hip [employer]CH [id number] 10/03/2027 / [id number] / Liner Ntrl Altn Xle Grp6 36mm 6 - [id number] Implanted:Qty : 1 on 03/21/2023 by Eric Parkinson MD at [facility] [employer] Left: Hip [employer]CH [id number] 03/17/2027 / [id number] / Cup Clstr-Hole Altn Pcg6 54mm 83-833-33 4 - [id number] Implanted:Qty : 1 on 03/21/2023 by Eric Parkinson MD at [facility] [employer] Left: Hip [employer]CH [id number] 10/25/203254 / [id number] / Procedures Procedure Name Priority Date/Time Associated [...] 10.8 K/ L 09/13/2024 1:39 PM EDT [facility] RBC 3.28(L) 3.80 - 5.20 M/ L 09/13/2024 1:39 PM EDT [facility] Hemoglobin 11.3(L) 12.8 - 17.4 GM/DL 09/13/2024 1:39 PM EDT [facility] Hematocrit 34.2(L) 39.0 - 51.0 % 09/13/2024 1:39 PM EDT [facility] MCV 104(H) 81 - 101 fL 09/13/2024 1:39 PM EDT [facility] MCH 34.5(H) 27.0 - 34.0 pg 09/13/2024 1:39 PM EDT [facility] MCHC 33.0 32.0 - 36.0 GM/DL 09/13/2024 1:39 PM EDT [facility] RDW 14.5 11.5 - 14.5 % 09/13/2024 1:39 PM EDT [facility] Platelets 202 150 - 400 K/CU MM 09/13/2024 1:39 PM EDT [facility] MPV 9.9 9.4 - 12.4 fL 09/13/2024 1:39 PM EDT [facility] Nucleated Red Blood Cell 0.0 0 - 0.2 % 09/13/2024 1:39 PM EDT [facility] % Neutros 75 37 - 80 % 09/13/2024 1:39 PM EDT [facility] % Lymphs 16 10 - 50 % 09/13/2024 1:39 PM EDT [facility] % Monos 7 5 - 13 % 09/13/2024 1:39 PM EDT [facility] % Eos 0 0 - 7 % 09/13/2024 1:39 PM EDT [facility] % Baso 0 0 - 3 % 09/13/2024 1:39 PM EDT [facility] NRBC Absolute <0.01 0 - 0.012 K/ul 09/13/2024 1:39 PM EDT [facility] # Neutros 7.02(H) 2.00 - 6.90 K/ L 09/13/2024 1:39 PM EDT [facility] # Lymphs 1.51 0.60 - 3.40 K/ L 09/13/2024 1:39 PM EDT [facility] # Monos 0.69 0.00 - 0.90 K/ L 09/13/2024 1:39 PM EDT [facility] # Eos 0.03 0.00 - 0.70 K/ L 09/13/2024 1:39 PM EDT [facility] # Baso 0.02 0.00 - 0.20 K/ L 09/13/2024 1:39 PM EDT [facility] Immature Granulocytes-Re lative 0.50 % 09/13/2024 1:39 PM EDT [facility] # IG 0.05(H) 0.00 - 0.00 K/uL 09/13/2024 1:39 PM EDT [facility] Blood Venipuncture / Unknown 09/13/2024 1:26 PM EDT 09/13/2024 1:26 PM EDT Narrative [facility] - 09/13/2024 1:39 PM [...] BLOOD ORDERABLES Final Res ult [facility] [address] [place], [place] [address], [facility] [phone] * (ABNORMAL) Testosterone Free And Total, Adult Male(SENDOUT) (09/13/2024 1:26 PM EDT) Testosterone by Immunoassay <3(L) 300 - 720 ng/dL 09/17/2024 12:18 AM EDT [email or web address] Comment: INTERPRETIVE INFORMATION: Testosterone by Immunoassay Testosterone immunoassays are both imprecise and inaccurate at low testosterone concentrations, such as those found in children and cisgender females. For these individuals, testing by mass spectrometry is recommended; refer to Testosterone (Adult Females, Children, or Individuals on Testosterone-Suppressing Hormone Therapy) ([employer] test code 5120218). Free or bioavailable testosterone measurements may provide supportive information. For individuals on testosterone hormone therapy, refer to cisgender male reference intervals. No reference intervals have been established for males younger than 14 years or for cisgender females. For a complete set of all established reference intervals, refer to ltd.[employer]/Tests/Pub/4749342. Sex Hormone Binding Globulin 64 19 - 76 nmol/L 09/17/2024 12:18 AM EDT [email or web address] Comment: REFERENCE INTERVAL: Sex Hormone Binding Globulin Access complete set of age- and/or gender-specific reference intervals for this test in the [employer] [facility] Test Directory ([employer]). Testosterone, Free Calculation <1(L) 47 - 244 pg/mL 09/17/2024 12:18 AM EDT [email or web address] Comment: INTERPRETIVE INFORMATION: Testosterone, Free Calculation Free [...] Children, or Individuals on Testosterone-Suppressing Hormone Therapy) ([employer] test code 1293995). For individuals on testosterone hormone therapy, refer to cisgender male reference intervals. No reference intervals have been established for males younger than 14 years or for cisgender females. For a complete set of all established reference intervals, refer to [employer]ipple[employer]/Tests/Pub/2533184. Testosterone, Percentage Free <1.1(L) 1.6 - 2.9 % 09/17/2024 12:18 AM EDT [email or web address] Comment: Performed By: [facility] [address] [place] [address] Reimbursement Spec: Cameron Javier MD, PhD CLIA Number: [id number] Blood Venipuncture / Unknown 09/13/2024 1:26 PM EDT 09/13/2024 1:26 PM EDT Xochitl Serra MD LAB BLOOD ORDERABLES Final Res ult Performing Organization Address City/[facility]/ZIP Co de Phone Number [email or web address] [address] [place] [address] [phone] * (ABNORMAL) PSA ([place], LUCIA, [place], [place], [facility]) (09/13/2024 1:26 PM EDT) Pathologist [facility] PSA diagnostic (ng/mL) <0.13(L) 0.13 - 4 ng/mL 09/13/2024 8:40 PM EDT [facility] Blood Venipuncture / Unknown 09/13/2024 1:26 PM EDT 09/13/2024 1:26 PM EDT Xochitl Serra MD LAB BLOOD ORDERABLES Final Res ult [facility] [address] [place] [id number], [facility] [phone] * (ABNORMAL) CMP (09/13/2024 1:26 PM EDT) Sodium 140 136 - 145 meq/L 09/13/2024 3:48 PM EDT [facility] Potassium 4.5 3.5 - 5.1 meq/L 09/13/2024 3:48 PM EDT [facility] Chloride 101 98 - 107 meq/L 09/13/2024 3:48 PM EDT [facility] CO2 33(H) 21 - 32 meq/L 09/13/2024 3:48 PM EDT [facility] Calcium 9.3 8.5 - 10.1 mg/dL 09/13/2024 3:48 PM EDT [facility] Glucose 237(H) 74 - 100 mg/dL 09/13/2024 3:48 PM EDT [facility] BUN 39(H) 7 - 18 mg/dL 09/13/2024 3:48 PM EDT [facility] Creatinine 1.93(H) 0.70 - 1.20 mg/dL 09/13/2024 3:48 PM EDT [facility] BUN/Creatinine 20 09/13/2024 3:48 PM EDT [facility] Albumin 3.6 3.4 - 5.0 g/dL 09/13/2024 3:48 PM EDT [facility] Alkaline Phosphatase 151(H) 46 - 116 U/L 09/13/2024 3:48 PM EDT [facility] ALT 19 12 - 78 U/L 09/13/2024 3:48 PM EDT [facility] AST 17 15 - 37 U/L 09/13/2024 3:48 PM EDT [facility] Total Bilirubin 0.5 0.2 - 1.0 mg/dL 09/13/2024 3:48 PM EDT [facility] Protein, Total 7.0 6.4 - 8.2 gm/dL 09/13/2024 3:48 PM EDT [facility] Anion Gap 11 11 - 22 09/13/2024 3:48 PM EDT [facility] A/G Ratio 1.1 09/13/2024 3:48 PM EDT [facility] Globulin 3.4 g/dL 09/13/2024 3:48 PM EDT [facility] Osmolality Calc 296.5 mOsm/kg 3:48 PM EDT [facility] eGFR (mL/min/1.73m2) 33(L) >=60 mL/min/1.7 3m2 09/13/2024 3:48 PM EDT [facility] Comment:ESTIMATED GFR IS NOT ACCURATE CREATININE CLEARANCE IN PREDICTING GLOMERULAR FILTRATION RATE. ESTIMATED GFR IS NOT APPLICABLE FOR DIALYSIS PATIENTS. Blood Venipuncture / Unknown 09/13/2024 1:26 PM EDT 09/13/2024 1:26 PM EDT us Xochitl Serra MD LAB BLOOD ORDERABLES Final Res ult Performing Organization Address City/[facility] Co de Phone Number [facility] [address] [place], [place] [address] [phone] * (ABNORMAL) Hemoglobin A1c (03/15/2023 11:20 AM EST) Hemoglobin A1C 6.5(H) 4.2 - 6.3 % 03/15/2023 12:24 PM EST [facility] Comment: Hemoglobin A1C levels are related to mean glucose during the preceding 2-3 months. Less than 7% demonstrates glycemic control in diabetic patients. Hemoglobin AlC % Suggested Diagnosis > or = 6.5 Diabetic 5.7 - 6.4 Prediabetic <5.7 Non-diabetic eAVG Glucose 139.85 mg/dL 03/15/2023 12:24 PM EST [facility] Blood Venipuncture / Unknown 03/15/2023 11:20 AM EST 03/15/2023 11:35 AM EST Eric Parkinson MD LAB BLOOD ORDERABLES Fi nal Result Performing Organization Address City/[facility]/ZIP Co de Phone Number [facility] [address] [phone] from Last 3 Months or Most Recently Relevant to Health Maintenance Insurance [place]IC[place] [address] [place] [address] [facility] Advance Directives For more information, please contact: [phone] * Full Code (Latest Code Status on File) Date Activated Date Inactivated Comments 08/16/2023 10:48 AM 08/16/2023 7:35 PM * Full Code Date Activated Date Inactivated Comments 03/21/2023 11:25 AM 03/24/2023 3:00 PM * Full Code Date Activated Date Inactivated Comments 03/21/2023 5:18 AM 03/21/2023 11:25 AM Care Teams Manager Planning Relationship Specialty Start Date End Date Christopher Yadav MD [address] [place] [id number] PCP - General General Internal Medicine 03/15/23
--- OUTSIDE RECORDS SUMMARY | 2024-10-08 11:57 | XMS_ITS | Encounter Summary ---
Author Organization [employer] ([place], [place], [place], [place]) Address [address] [place] [address] Care Team Providers Care Training Executive Name Role Phone Christopher Yadav MD Primary Care Provider [phone] Encounter Details Date Type Department Care Team (Late st Contact Info) Description 07/14/2023 Outside Orders [facility] Urology - [address] [place] [address], [address] [address] Emi Lau Social History Tobacco [...] Date Ehsan rded Speak language other than Samoan at home Not on file 03/11/2023 Want [...] Description 12/17/2024 9:45 AM EDT Office Visit [facility] - [address] [place] [address] Xochitl Serra MD [address] [place] [address] documented as of this encounter Visit Diagnoses Not on filedocumented in this encounter Care Teams Training Executive Relationship Specialty Start Date End Date Christopher Yadav MD [address] [place] [address] PCP - General General Internal Medicine 03/15/23 documented as of this encounter
--- OUTSIDE RECORDS SUMMARY | 2024-10-08 11:57 | XMS_ITS | Encounter Summary ---
Author Organization [employer] ([place], [place], [place], [place]) Address [address] [place] [address] Care Team Providers Care Order Entry Name Role Phone Christopher Yadav MD Primary Care Provider [phone] Encounter Details Date Type Department Care Team (Late st Contact Info) Description 08/04/2023 Surgery Prep [facility] Urology - [address] [address] Samuel Mata MD [address] [address] Elevated PSA (Primary Dx) Social [...] Date Ehsan rded Speak language other than Irish at home Not on file 03/11/2023 Want [...] Description 12/17/2024 9:45 AM EDT Office Visit [facility] - [address] [place] [address] Xochitl Serra MD [address] [place] [address] documented as of this encounter Visit Diagnoses Diagnosis Elevated PSA- Primary Elevated prostate specific antigen (PSA) documented in this encounter Care Teams Order Entry Relationship Specialty Start Date End Date Christopher Yadav MD [address] [place] [address] PCP - General General Internal Medicine 03/15/23 documented as of this encounter
--- OUTSIDE RECORDS SUMMARY | 2024-10-08 11:57 | XMS_ITS | Encounter Summary ---
Author Organization [employer] ([place], [place], [place], [place]) Address [address] [place] [address] Care Team Providers Care Furniture Repair Technician Name Role Phone Christopher Yadav MD Primary Care Provider [phone] Encounter Details Date Type Department Care Team ([facility] st Contact Info) Description 08/23/2023 Telephone [facility] - [address] [place] [address] Wanda Peres, HAM BONER Social History Tobacco Use Types Packs/Day Years [...] Date Ehsan rded Speak language other than German at home Not on file 03/11/2023 Want [...] Description 12/17/2024 9:45 AM EDT Office Visit [facility] - [address] [place] [address] Xochitl Serra MD [address] [address] documented as of this encounter Visit Diagnoses Not on filedocumented in this encounter Care Teams Furniture Repair Technician Relationship Specialty Start Date End Date Christopher Yadav MD [address] [place] [address] PCP - General General Internal Medicine 03/15/23 documented as of this encounter
--- OUTSIDE RECORDS SUMMARY | 2024-10-08 11:57 | XMS_ITS ---
Author Organization [employer] ([place], [place], [place], [place]) Address [address] [place] [address] Care Team Providers Care Bulb Sorter Name Role Phone Christopher Yadav MD Primary Care Provider [phone] Active Problems Problem Noted Date Diagnosed Date [...] treatments are documented for this patient in [facility]. Treatments may have been administered in another system.
--- OUTSIDE RECORDS SUMMARY | 2024-10-08 11:57 | XMS_ITS | Clinical Summary ---
[facility] Organization [facility] Address [address] [place] [address] Care Team Providers Care Reiki Practitioner Name Role Phone Christopher Yadav MD Primary Care Provider [phone] Allergies No known active allergies Medications coenzyme [...] suggested checking CMP today but he says rn international is checking this regularly.. Type 2 diabetes [...] 11:27 AM EST): Continue statin. He says medical records custodian is checking lipids. Assessment & Plan (08/12/2021 [...] or training? Not on file Preferred Language Kuwaiti 07/28/2023 Sex and Gender Information Value Date [...] Description 12/19/2024 11:00 AM EDT Office Visit [facility] [address] [address] Daniel Vasquez MD 30[address] [facility] [address] [place] [address] Health Maintenance Due Date Last Done Comments [...] - 29.0 mg/g 05/19/2024 12:48 AM EDT [facility] Creatinine, Urine 53.7 mg/dL 05/19/2024 12:48 AM EDT [facility] Microalbumin, Urine 3.1 mg/dL 05/19/2024 12:48 AM EDT [facility] Urine Urine specimen obtained by clean catch procedure / Unknown Collection / Unknown 05/18/2024 12:04 PM EDT 05/18/2024 12:04 PM EDT Daniel Vasquez MD URINE ORDERABLES Final Re sult [facility]
[address] [place] [address], * (ABNORMAL) Lipid Panel (05/18/2024 12:04 PM EDT) Total Cholesterol 130 0 - 200 mg/dL 05/18/2024 11:44 PM EDT [facility] Triglycerides 66 0 - 150 mg/dL 05/18/2024 11:44 PM EDT [facility] HDL Cholesterol 61(H) 40 - 60 mg/dL 05/18/2024 11:44 PM EDT [facility] LDL Cholesterol 55 0 - 100 mg/dL 05/18/2024 11:44 PM EDT [facility] VLDL Cholesterol 14 5 - 40 mg/dL 05/18/2024 11:44 PM EDT [facility] LDL/HDL Ratio 0.91 05/18/2024 11:44 PM EDT [facility] Blood Structure of left upper limb / Unknown Venipuncture / Unknown 05/18/2024 12:04 PM EDT 05/18/2024 12:04 PM EDT Narrative [facility] - 05/18/2024 11:44 PM EDT Cholesterol [...] ORDERABLES Savanah l Result Performing Organization Address City/[facility]/ZIP Co de Phone Number [facility]
[address] [place] [address], * (ABNORMAL) POC Glycosylated Hemoglobin (Hb A1C) (05/18/2024 11:48 AM EDT) [facility] Hemoglobin A1C 7.0(A) 4.5 - 5.7 % [facility] Lot Number [id number] [facility] Expiration Date 01/03/26 [facility] Blood 05/18/2024 11:4 8 AM EDT Daniel Vasquez MD POINT OF CARE TEST ORDERA BLES Final Result Performing Organization Address [facility] Co de Phone Number [facility]
[address] [place] [address], [place] [phone] * SCANNED - EYE EXAM (05/19/2022) Anatomical Region Laterality Modality Other us Daniel Vasquez MD CHART REVIEW TABS Savanah l Result from Last 3 Months or Most Recently Relevant to Health Maintenance Insurance MEDICARE A & B [facility] SUPP Advance Directives * CPR (Attempt to [...] pulse or is breathing): Full Care Teams Reiki Practitioner Relationship Specialty Start Date End Date Christopher Yadav MD [address] [facility] [address] [facility] [address] PCP - General Internal Medicine 07/27/23
--- OUTSIDE RECORDS SUMMARY | 2024-10-08 11:57 | XMS_ITS | Encounter Summary ---
Author Organization [employer] ([place], [place], [place], [place]) Address [address] [place] [address] Care Team Providers Care Lens Gauger Name Role Phone Christopher Yadav MD Primary Care Provider [phone] Encounter Details Date Type Department Care Team [...] Date Ehsan rded Speak language other than Bulgarian at home Not on file 03/11/2023 Want [...] Description 12/17/2024 9:45 AM EDT Office Visit [facility] - [address] [place] [address] Xochitl Serra MD [facility] [address] [address] documented as of this encounter Visit Diagnoses Not on filedocumented in this encounter Care Teams Lens Gauger Relationship Specialty Start Date End Date Christopher Yadav MD [address] [place] [address] [place] [address] PCP - General General Internal Medicine 03/15/23 documented as of this encounter
[2024-10-08 11:58] LABS: Microscopic, Urine URINE MICROSCOPIC (MICROSCOPIC)
[2024-10-08 12:30] LABS: Bilirubin,Urine Negative (Negative); Color,Urine YELLOW (Yellow); Glucose,Urine (UA) Negative (Negative); Ketones,Urine Negative (Negative); Leukocyte Esterase,Urine Negative (Negative); PH,Urine 6.0 (5.0-8.5); Protein,Urine Negative (Negative); Specific Gravity, Urine 1.010 (1.005-1.030); Urobilinogen,Urine 0.2 EU/dl (0.2)
[2024-10-08 12:34] LABS: Hematocrit 37.3 % (42.0-52.0); Hemoglobin 11.9 g/dL (14.1-18.0); Immature Granulocytes % 0.8 %; Mean Corpuscular HGB Conc 31.9 g/dL (31.8-35.4); Mean Corpuscular Hemoglobin 32.8 pg (27.0-31.2); Mean Corpuscular Volume 102.8 fl (80-94); Nucleated Red Blood Cells % 0 %; Platelet Count 277 K/mm3 (142-424); Red Blood Count 3.63 M/mm3 (4.60-6.20); Red Cell Distribution Width-SD 53.5 fL; White Blood Count 13.0 K/mm3 (4.8-10.8)
[2024-10-08 12:43] LABS: WBC,Urine Occasional #/hpf (0-3)
[2024-10-08 12:50] LABS: Albumin Level 4.6 g/dl (3.5-5.0); Chloride 85 mmol/L (98-107); Potassium 3.7 mmoL/L (3.5-5.1); Sodium 138 mmol/L (136-145)
[2024-10-08 12:53] LABS: Blood Urea Nitrogen 47 mg/dl (9-20); Creatinine,Serum 2.30 mg/dl (0.66-1.25); Estimated Glomerular Filt Rate 27 ml/min (>60); GFR (African American) 33 ML/MIN (>60); Iron 89 ug/dL (49-181)
[2024-10-08 12:54] LABS: Calcium 9.2 mg/dl (8.4-10.2); Glucose 149 mg/dl (74-100); Magnesium 1.9 mg/dl (1.6-2.3); Phosphorous 4.3 mg/dl (2.5-4.5)
[2024-10-08 13:03] LABS: Anion Gap 14.7 mEq/L (5-15); Carbon Dioxide 42 mmol/L (22.0-30.0); Total Iron Binding Capacity 296 ug/dL (261-462)
[2024-10-08 13:30] LABS: Ferritin 87.9 ng/ml (17.9-464)
== END 2024-10-08 23:59 | disposition home or self-care (01) ==
LOC: LAB 11:52
PROVIDERS: Internal Medicine Nephrology; PCP Internal Medicine; Visit Provider Internal Medicine
DX: I50.33 Acute on chronic diastolic (congestive) heart failure (principal); E83.42 Hypomagnesemia
CPT/HCPCS: 36415; 80069; 81001; 82570; 82728; 83540; 83550; 83735; 84156; 85025

== ENCOUNTER 2024-10-15 11:46 | Inpatient (IN) | payer MEDICARE, BC, SELFPAY ==
--- OUTSIDE RECORDS SUMMARY | 2024-09-13 16:45 | XMS_ITS | Encounter Summary ---
Author Organization [employer] ([place], [place], [place], [place]) Address [address] [place] [address] Care Team Providers Care Railroad Dining Car Stewardess Name Role Phone Christopher Yadav MD Primary Care Provider [phone] Encounter Details Date Type Department Care Team (Latest Contact Info) Description 09/13/2024 4:45 PM EDT Lab Patient Walk-In [facility] [address] [place] [address] Xochitl Serra MD [address] [place] [phone] Prostate cancer (HCC) Social History Tobacco Use Types Packs/Day Years Used Date Smoking Tobacco: Former Cigarettes Q uit: 1980 Smokeless Tobacco: Never Alcohol Use Standard Drinks/Week Comments Not Currently 0 (1 standard drink = 0.6 oz pur e alcohol) PRAPARE - Transportation Answer Date Re corded In the past 12 months, has l ack of transportation kept you from medical appointments or from getting medications? No 03/21/2023 Lack of Transportation (Non-Medical) Not on file 03/21/2023 Family and Community Support Answer Jarvis e Recorded Help with Day to Day Activities Not on file 03/11/2023 Feeling Lonely or Isolated Not on file 03/11 Educational Attainment Answer Date Ehsan rded Speak language other than Faroese at home Not on file 03/11/2023 Want help with school or training Not on file 03/11/2023 Substance Use Answer Date Recorded Used prescription meds for non-medical reasons N ot on file 03/11/2023 Used illegal drugs past 12 months Not on file 03/11/2023 Sex and Gender Information Value Date Recorded Sex Assigned at Not on file Legal Sex Male 1:34 PM CDT Gender Identity Not on file Sexual Orientation Not on file documented as of this encounter Functional Status * Are you deaf or do you have serious difficulty hearing? Answer Date of Assessment Author No 03/24/2023 8:05 AM Juliana Poe RN * Are you blind or do you have serious difficulty seeing, even when wearing glasses? Answer Date of Assessment Author No 03/24/2023 8:05 AM Juliana Poe RN * Do you have serious difficulty walking or climbing stairs? Answer Date of Assessment Author No 03/24/2023 8:05 AM Juliana Poe RN * Do you have serious difficulty dressing or bathing? Answer Date of Assessment Author No 03/24/2023 8:05 AM Juliana Poe RN * Because of a physical, mental, or emotional condition, do you have serious difficulty doing errandsalone such as visiting the doctor? Answer Date of Assessment Author No 03/24/2023 8:05 AM Juliana Poe RN documented as of this encounter Mental Status * Because of a physical, mental, or emotional condition, do you have serious difficulty concentrating, remembering, or making decisions? (5 years old or older) Answer Entry Date Author No 03/24/2023 8:05 AM Juliana Poe RN documented in this encounter Plan of Treatment Upcoming Encounters Date Type Department Care Team (Late st Contact Info) Description 12/19/2024 9:45 AM EDT Office Visit [facility] - [address] [place] [address] Arnol Courtney MD [address] [place] [address] [place] [phone] documented as of this encounter Procedures Procedure Name Priority Date/Time Associated Diagnosis Comments CBC W/ AUTO DIFF Routine 09/13/2024 1:26 PM EDT Prostate cancer (HCC) TESTOSTERONE FREE AND TOTAL,INCLUDES SEX HORMONE-BINDING GLOBULIN ADULT MALE (SENDOUT) Routine 09/13/2024 1:26 PM EDT Prostate cancer (HCC) PSA Routine 09/13/2024 1:26 PM EDT Prostate cancer (HCC) COMPREHENSIVE METABOLIC PANEL Routine 09/13/2024 1:26 PM EDT Prostate cancer (HCC) documented in this encounter Results * (ABNORMAL) Testosterone Free And Total, Adult Male(SENDOUT) (09/13/2024 1:26 PM EDT) Testosterone by Immunoassay <3(L) 300 - 720 ng/dL 09/17/2024 12:18 AM EDT [employer] Comment: INTERPRETIVE INFORMATION: Testosterone by Immunoassay Testosterone immunoassays are both imprecise and inaccurate at low testosterone concentrations, such as those found in children and cisgender females. For these individuals, testing by mass spectrometry is recommended; refer to Testosterone (Adult Females, Children, or Individuals on Testosterone-Suppressing Hormone Therapy) ([employer] test code 4927401). Free or bioavailable testosterone measurements may provide supportive information. For individuals on testosterone hormone therapy, refer to cisgender male reference intervals. No reference intervals have been established for males younger than 14 years or for cisgender females. For a complete set of all established reference intervals, refer to ltd[employer]/Tests/Pub/[id number]. Sex Hormone Binding Globulin 64 19 - 76 nmol/L 09/17/2024 12:18 AM EDT [employer] Comment: REFERENCE INTERVAL: Sex Hormone Binding Globulin Access complete set of age- and/or gender-specific reference intervals for this test in the [facility] Test Directory ([employer]). Testosterone, Free Calculation <1(L) 47 - 244 pg/mL 09/17/2024 12:18 AM EDT [employer] Comment: INTERPRETIVE INFORMATION: Testosterone, Free Calculation Free testosterone concentration is calculated using total testosterone (measured by immunoassay) and the binding constant of testosterone and sex hormone-binding globulin (SHBG). Testosterone immunoassays are both imprecise and inaccurate at low testosterone concentrations, such as those found in children and cisgender females. For these individuals, testing by mass spectrometry is recommended; refer to Testosterone, Free (Adult Females, Children, or Individuals on Testosterone-Suppressing Hormone Therapy) ([employer] test code 5499733). For individuals on testosterone hormone therapy, refer to cisgender male reference intervals. No reference intervals have been established for males younger than 14 years or for cisgender females. For a complete set of all established reference intervals, refer to [employer]/Tests/Pub/[id number]. Testosterone, Percentage Free <1.1(L) 1.6 - 2.9 % 09/17/2024 12:18 AM EDT [employer] Comment: Performed By: [employer] [address] [place] [address] Reclaimer: Cameron Javier MD, PhD CLIA Number: [id number] Blood Venipuncture / Unknown 09/13/2024 1:26 PM EDT 09/13/2024 1:26 PM EDT Xochitl Serra MD LAB BLOOD ORDERABLES Final Res ult Performing Organization Address City/[facility]/ZIP Co de Phone Number [email or web address] [address] [place] [address], [facility] [phone] * (ABNORMAL) PSA ([facility], LUCIA, [place], [place], [facility]) (09/13/2024 1:26 PM EDT) [facility] PSA diagnostic (ng/mL) <0.13(L) 0.13 - 4 ng/mL 09/13/2024 8:40 PM EDT [facility] Blood Venipuncture / Unknown 09/13/2024 1:26 PM EDT 09/13/2024 1:26 PM EDT Xochitl Serra MD LAB BLOOD ORDERABLES Final Res ult [facility] [address] [place] [address], [facility] [phone] * (ABNORMAL) CMP (09/13/2024 1:26 PM EDT) Sodium 140 136 - 145 meq/L 09/13/2024 3:48 PM EDT [facility] Potassium 4.5 3.5 - 5.1 meq/L 09/13/2024 3:48 PM EDT [facility] Chloride 101 98 - 107 meq/L 09/13/2024 3:48 PM EDT [facility] CO2 33(H) 21 - 32 meq/L 09/13/2024 3:48 PM EDT [facility] Calcium 9.3 8.5 - 10.1 mg/dL 09/13/2024 3:48 PM EDT [facility] Glucose 237(H) 74 - 100 mg/dL 09/13/2024 3:48 PM EDT [facility] BUN 39(H) 7 - 18 mg/dL 09/13/2024 3:48 PM EDT [facility] Creatinine 1.93(H) 0.70 - 1.20 mg/dL 09/13/2024 3:48 PM EDT [facility] BUN/Creatinine 20 09/13/2024 3:48 PM EDT [facility] Albumin 3.6 3.4 - 5.0 g/dL 09/13/2024 3:48 PM EDT [facility] Alkaline Phosphatase 151(H) 46 - 116 U/L 09/13/2024 3:48 PM EDT [facility] ALT 19 12 - 78 U/L 09/13/2024 3:48 PM EDT [facility] AST 17 15 - 37 U/L 09/13/2024 3:48 PM EDT [facility] Total Bilirubin 0.5 0.2 - 1.0 mg/dL 09/13/2024 3:48 PM EDT [facility] Protein, Total 7.0 6.4 - 8.2 gm/dL 09/13/2024 3:48 PM EDT [facility] Anion Gap 11 11 - 22 09/13/2024 3:48 PM EDT [facility] A/G Ratio 1.1 09/13/2024 3:48 PM EDT [facility] Globulin 3.4 g/dL 09/13/2024 3:48 PM EDT [facility] Osmolality Calc 296.5 mOsm/kg 3:48 PM EDT [facility] eGFR (mL/min/1.73m2) 33(L) >=60 mL/min/1.7 3m2 09/13/2024 3:48 PM EDT [facility] Comment:ESTIMATED GFR IS NOT ACCURATE CREATININE CLEARANCE IN PREDICTING GLOMERULAR FILTRATION RATE. ESTIMATED GFR IS NOT APPLICABLE FOR DIALYSIS PATIENTS. Blood Venipuncture / Unknown 09/13/2024 1:26 PM EDT 09/13/2024 1:26 PM EDT us Xochitl Serra MD LAB BLOOD ORDERABLES Final Res ult [facility] [address] [place] [address] * (ABNORMAL) CBC with Diff (09/13/2024 1:26 PM EDT) WBC 9.3 4.8 - 10.8 K/ L 09/13/2024 1:39 PM EDT [facility] RBC 3.28(L) 3.80 - 5.20 M/ L 09/13/2024 1:39 PM EDT [facility] Hemoglobin 11.3(L) 12.8 - 17.4 GM/DL 09/13/2024 1:39 PM EDT [facility] Hematocrit 34.2(L) 39.0 - 51.0 % 09/13/2024 1:39 PM EDT [facility] MCV 104(H) 81 - 101 fL 09/13/2024 1:39 PM EDT [facility] MCH 34.5(H) 27.0 - 34.0 pg 09/13/2024 1:39 PM EDT [facility] MCHC 33.0 32.0 - 36.0 GM/DL 09/13/2024 1:39 PM EDT [facility] RDW 14.5 11.5 - 14.5 % 09/13/2024 1:39 PM EDT [facility] Platelets 202 150 - 400 K/CU MM 09/13/2024 1:39 PM EDT [facility] MPV 9.9 9.4 - 12.4 fL 09/13/2024 1:39 PM EDT [facility] Nucleated Red Blood Cell 0.0 0 - 0.2 % 09/13/2024 1:39 PM EDT [facility] % Neutros 75 37 - 80 % 09/13/2024 1:39 PM EDT [facility] % Lymphs 16 10 - 50 % 09/13/2024 1:39 PM EDT [facility] % Monos 7 5 - 13 % 09/13/2024 1:39 PM EDT [facility] % Eos 0 0 - 7 % 09/13/2024 1:39 PM EDT [facility] % Baso 0 0 - 3 % 09/13/2024 1:39 PM EDT [facility] NRBC Absolute <0.01 0 - 0.012 K/ul 09/13/2024 1:39 PM EDT [facility] # Neutros 7.02(H) 2.00 - 6.90 K/ L 09/13/2024 1:39 PM EDT [facility] # Lymphs 1.51 0.60 - 3.40 K/ L 09/13/2024 1:39 PM EDT [facility] # Monos 0.69 0.00 - 0.90 K/ L 09/13/2024 1:39 PM EDT [facility] # Eos 0.03 0.00 - 0.70 K/ L 09/13/2024 1:39 PM EDT [facility] # Baso 0.02 0.00 - 0.20 K/ L 09/13/2024 1:39 PM EDT [facility] Immature Granulocytes-Re lative 0.50 % 09/13/2024 1:39 PM EDT [facility] # IG 0.05(H) 0.00 - 0.00 K/uL 09/13/2024 1:39 PM EDT [facility] Blood Venipuncture / Unknown 09/13/2024 1:26 PM EDT 09/13/2024 1:26 PM EDT Narrative [facility] - 09/13/2024 1:39 PM EDT When CBC w/ Auto Diff is ordered the lab will add a Manual Differential as a quality check at no additional charge if: Lymphocytes greater than seventy five percent with normal or increased WBC Monocytes greater than Fifteen percent Basophil greater than four percent Bands >10% or several immature myeloids are seen on scan Blast? Flag noted Atypical Lymph flag noted us Xochitl Serra MD LAB BLOOD ORDERABLES Final Res ult [facility] [address] [phone] documented in this encounter Visit Diagnoses Diagnosis Prostate cancer (HCC) Malignant neoplasm of prostate documented in this encounter Care Teams Railroad Dining Car Stewardess Relationship Specialty Start Date End Date Christopher Yadav MD [address] [place] [address] [place] [address] PCP - General General Internal Medicine 03/15/23 documented as of this encounter
--- OUTSIDE RECORDS SUMMARY | 2024-09-17 09:00 | XMS_ITS | Encounter Summary ---
Author Organization [employer] ([place], [place], [place], [place]) Address [address] [place] [address] Care Team Providers Care Molasses Preparer Name Role Phone Christopher Yadav MD Primary Care Provider [phone] Reason for Visit * Reason Comments Follow-up Prostate Cancer Encounter Details Date Type Department Care Team (Late st Contact Info) Description 09/17/2024 9:00 AM EDT Office Visit [facility] - [address] [place] [address] Xochitl Serra MD [address] [address] Prostate cancer (HCC) (Primary Dx); [...] Date Ehsan rded Speak language other than Finnish at home Not on file 03/11/2023 Want [...] showed prostate cancer in every core with Jhon score of 7 or 8. Cancer volumes [...] without his catheter tomorrow. 03/20/24 - Mr. Palmer returns in follow up for Stage IV [...] his next Eligard injection. 03/26/24 - Mr. Palmer returns in follow up to recheck his [...] ANTERIOR APPROACH; Surgeon: Eric Parkinson MD; Location: [facility]; Service: Orthopaedic Surgery; Laterality: Left; EXACTECH, HANA TABLE, C-ARM & PRINTER, CELL SAVER COLONOSCOPY multiple CORONARY ANGIOPLASTY WITH STENT PLACEMENT EYE SURGERY Bilateral catract extraction MANDIBLE SURGERY [place] BX PROSTATE STRTCTC SATURATION SAMPLING IMG GID N/A 08/16/2023 Procedure: BIOPSY, PROSTATE, PERINEAL APPROACH; Surgeon: Samuel Mata MD; Location: [facility]; Service: Urology; Laterality: N/A; [facility] [id number] Social History Socioeconomic History Marital status: / [...] Children, or Individuals on Testosterone-Suppressing Hormone Therapy) (DEXMA test code 5029806). Free or bioavailable testosterone measurements may provide supportive information. For individuals on testosterone hormone therapy, refer to cisgender male reference intervals. No reference intervals have been established for males younger than 14 years or for cisgender females. For a complete set of all established reference intervals, refer to [employer]/Tests/Pub/[id number]. Sex Hormone Binding Globulin 09/13/2024 64 19 - 76 nmol/L Final REFERENCE INTERVAL: Sex Hormone Binding Globulin Access complete set of age- and/or gender-specific reference intervals for this test in the MPOWER Mobile Test Directory ([employer]). Testosterone, Free Calculation 09/13/2024 <1 (L) 47 [...] Children, or Individuals on Testosterone-Suppressing Hormone Therapy) (DEXMA test code 9868415). For individuals on testosterone hormone therapy, refer to cisgender male reference intervals. No reference intervals have been established for males younger than 14 years or for cisgender females. For a complete set of all established reference intervals, refer to [employer]/Tests/Pub/[id number]. Testosterone, Percentage Free 09/13/2024 <1.1 (L) 1.6 - 2.9 % Final Performed By: [facility] [address] [place] [id number] Debt Counselor: Cameron Javier MD, PhD CLIA Number: [id number] Radiology Results (last 7 days) No results [...] reviewed, interpreted, and dictated by Dr. Oscar Joya. Transcribed by Marci Boyd PA-C. Specimen Collected: 08/30/23 14:52 EDT Last Resulted: 08/30/23 15:14 EDT PET/CT PSMA VERTEX TO THIGH Order: [id number] Impression Multifocal intense PSMA-avid uptake within the [...] scanner: Siemens Biograph 40 mCT. PET/CT acquisition: Ivmbrv-lr-spo-thighs. Standardized uptake value (SUV): Corrected for body weight only. CT: Low-dose, iln-novqkp-hfdi, without intravenous contrast. TOTAL DLP (Dose Length [...] is going to follow up with his Last Marker in 2 weeks. He is going to [...] Description 12/19/2024 9:45 AM EDT Office Visit [facility] - [address] [place] [address] Arnol Courtney MD [address] [facility] [address] [place] [address] Scheduled Orders Name Type Priority Associated Diagnoses Orde r Schedule CBC with Diff Lab Routine Prostate cancer (HCC) Renal dysfunction Expected: 09/17/2024, Expires: 09/17/2025 CMP Lab Routine Prostate cancer (HCC) Renal dysfunction Expected: 09/17/2024, Expires: 09/17/2025 PSA (LUCIA Thompson Corbin, [place], [facility]) Lab Routine Prostate cancer (HCC) Renal dysfunction Expected: 09/17/2024, Expires: 09/17/2025 documented as of this encounter Visit Diagnoses Diagnosis Prostate cancer (HCC)- Primary Malignant neoplasm of prostate Renal dysfunction Unspecified disorder of kidney and ureter documented in this encounter Care Teams Molasses Preparer Relationship Specialty Start Date End Date Christopher Yadav MD [address] [place] [address] [place] [address] PCP - General General Internal Medicine 03/15/23 documented as of this encounter
--- NOTE | 2024-10-15 11:51 | ECG_ITS ---
APPROVED REPORT Exam: Resting ECG HR:84 bpm ECG Measurements Heart Rate 84 AXES QRSd 107 QRS -63 QT 334 T 48 QTc 374 Conclusion Indeterminate rhythm from significant baseline artifact Borderline left axis No overt STEMI Electronically signed by : Ean Patel, 10/16/2024 16:36:53
[2024-10-15 11:53] VITALS: BP 130/61; PULSE 90; RESP 26; TEMP 39.6; O2SAT 93; BMI 35.5
--- NOTE | 2024-10-15 11:55 | XR_ITS ---
FINAL REPORT CLINICAL HISTORY: Shortness of breath COMPARISON: 09/25/2024 FINDINGS: The heart size is normal. The mediastinum is normal. Lucencies in the upper lobes are consistent with centrilobular emphysema. Scarring is noted at the left lung base. There are no pleural effusions. There is no pneumothorax. There is no osseous abnormality. IMPRESSION: No acute cardiopulmonary process Centrilobular emphysema. Reviewed, Interpreted and Dictated by Oscar Joya MD Transcribed by Faviola Stroud Authenticated and . [facility]
[2024-10-15 11:58] VITALS: O2SAT 93
[2024-10-15 11:59] LABS: Hematocrit 35.5 % (42.0-52.0); Hemoglobin 11.6 g/dL (14.1-18.0); Immature Granulocytes % 0.4 %; Mean Corpuscular HGB Conc 32.7 g/dL (31.8-35.4); Mean Corpuscular Hemoglobin 33.4 pg (27.0-31.2); Mean Corpuscular Volume 102.3 fl (80-94); Nucleated Red Blood Cells % 0 %; Platelet Count 188 K/mm3 (142-424); Red Blood Count 3.47 M/mm3 (4.60-6.20); Red Cell Distribution Width-SD 52.9 fL; White Blood Count 15.7 K/mm3 (4.8-10.8)
--- OUTSIDE RECORDS SUMMARY | 2024-10-15 12:01 | XMS_ITS | Encounter Summary ---
Author Organization Healthcare Address [address] [place] [address] Care Team Providers Care Trailers And Motor Homes Salesperson Name Role Phone Christopher Yadav MD Primary Care Provider [phone] Encounter Details Date Type Department Care Team (Late st Contact Info) Description 07/27/2023 Orders Only External Location [address] [place] [address] Provider, External Social History Tobacco Use Types [...] on filedocumented in this encounter Care Teams Trailers And [employer] Salesperson Relationship Specialty Start Date End Date Christopher Yadav MD [address] [facility] [address] [place] [address] PCP - General 07/11/20 documented as of this encounter
--- OUTSIDE RECORDS SUMMARY | 2024-10-15 12:01 | XMS_ITS | Encounter Summary ---
Author Organization Healthcare Address [address] [place] [address] Care Team Providers Care Geospatial Developer Name Role Phone Christopher Yadav MD Primary Care Provider [phone] Encounter Details Date Type Department Care Team (Late st Contact Info) Description 07/27/2023 Orders Only External Location [address] [place] [address] Provider, External Social History Tobacco Use Types [...] on filedocumented in this encounter Care Teams Geospatial Developer Relationship Specialty Start Date End Date Christopher Yadav MD [address] [place] [address] PCP - General 07/11/20 documented as of this encounter
--- OUTSIDE RECORDS SUMMARY | 2024-10-15 12:01 | XMS_ITS | Encounter Summary ---
Author Organization Healthcare Address [address] [place] [address] Care Team Providers Care Milk Of Lime Slaker Name Role Phone Christopher Yadav MD Primary Care Provider [phone] Encounter Details Date Type Department Care Team (Late st Contact Info) Description 2023 Lab Requisition [facility] [address] [place] [address] Jamil Maynard MD [address] [facility] [address] [place] [address] Elevated prostate specific antigen (PSA) Social History [...] EDT) Case Report Sugical Pathology Consult Case: [id number] Authorizing Provider: Jamil Maynard MD Collected: 2023 1312 Ordering Location: [facility] Lab Received: 2023 1312 Pathologist: Donna Villalobos MD Specimen: Prostate, [id number] 08/25/2023 10:39 AM EDT [email or web address] Final Diagnosis PROSTATE, NEEDLE CORE BIOPSIES (REVIEW OF OUTSIDE SLIDES LABELED SM [id number], PROCEDURE DATE 08/16/2023). A. PROSTATE, RIGHT POSTERIOR [...] OF 1 CORE. 08/25/2023 10:39 AM EDT [email or web address] at 1038 EDT Comment Perineural invasion is identified. Cribriform pattern 4 is also seen. 08/25/2023 10:39 AM EDT [email or web address] Clinical Information R97.20 - Elevated prostate specific antigen (PSA) [ICD-10-CM] 08/25/2023 10:39 AM EDT [email or web address] Gross Description A. [id number] Received along with a corresponding pathology report from [facility] are 8 slides labeled outside case: [id number] collected on 08/16/2023. 08/25/2023 10:39 AM EDT [facility] Intradepartmental Consultation with Agreement Kely Ghotra MD 08/25/2023 10:39 AM EDT [facility] Tissue Prostate / Unknown 1:12 PM EDT 2023 1:12 PM EDT us Jamil Maynard MD LAB PATHOLOGY ORDERABLES Savanah lucas Result [facility] [address] [place] [address] documented in this encounter Visit Diagnoses Diagnosis Elevated prostate specific antigen (PSA) documented in this encounter Care Teams Milk Of Lime Slaker Relationship Specialty Start Date End Date Christopher Yadav MD [address] [place] [address] [address] [place] [address] PCP - General 07/11/20 documented as of this encounter
--- OUTSIDE RECORDS SUMMARY | 2024-10-15 12:01 | XMS_ITS | Encounter Summary ---
Author Organization [employer] ([place], [place], [place], [place]) Address [address] [place] [address] Care Team Providers Care Regional Planner Name Role Phone Christopher Yadav MD Primary Care Provider [phone] Encounter Details Date Type Department Care Team (Late st Contact Info) Description 03/26/2024 Outside Orders [facility] Admitting [address] [place] [address] Jero Vale MD [address] [place] [address] [place] [id number] Anemia (Primary Dx); Secondary hyperparathyroidism of renal [...] Description 12/19/2024 9:45 AM EDT Office Visit [facility] - [address] [place] [address] Arnol Courtney MD [address] [facility] [address] [place] [address] documented as of this encounter Results * (ABNORMAL) CBC with automated diff (03/26/2024 9:26 AM EST) WBC 9.4 4.8 - 10.8 K/ L 03/26/2024 9:55 AM [facility] RBC 3.16(L) 3.80 - 5.20 M/ L 03/26/2024 9:55 AM [facility] Hemoglobin 10.6(L) 12.8 - 17.4 GM/DL 03/26/2024 9:55 AM [facility] Hematocrit 32.8(L) 39.0 - 51.0 % 03/26/2024 9:55 AM [facility] MCV 104(H) 81 - 101 fL 03/26/2024 9:55 AM [facility] MCH 33.5 27.0 - 34.0 pg 03/26/2024 9:55 AM [facility] MCHC 32.3 32.0 - 36.0 GM/DL 03/26/2024 9:55 AM [facility] RDW 14.8(H) 11.5 - 14.5 % 03/26/2024 9:55 AM [facility] Platelets 252 150 - 400 K/CU MM 03/26/2024 9:55 AM [facility] MPV 9.4 9.4 - 12.4 fL 03/26/2024 9:55 AM [facility] Nucleated Red Blood Cell 0.0 0 - 0.2 % 03/26/2024 9:55 AM [facility] % Neutros 73 37 - 80 % 03/26/2024 9:55 AM [facility] % Lymphs 19 10 - 50 % 03/26/2024 9:55 AM [facility] % Monos 7 5 - 13 % 03/26/2024 9:55 AM [facility] % Eos 0 0 - 7 % 03/26/2024 9:55 AM [facility] % Baso 0 0 - 3 % 03/26/2024 9:55 AM EST [facility] NRBC Absolute <0.01 0 - 0.012 K/ul 03/26/2024 9:55 AM EST [facility] # Neutros 6.82 2.00 - 6.90 K/ L 03/26/2024 9:55 AM EST [facility] # Lymphs 1.78 0.60 - 3.40 K/ L 03/26/2024 9:55 AM EST [facility] # Monos 0.66 0.00 - 0.90 K/ L 03/26/2024 9:55 AM EST [facility] # Eos 0.04 0.00 - 0.70 K/ L 03/26/2024 9:55 AM EST [facility] # Baso 0.02 0.00 - 0.20 K/ L 03/26/2024 9:55 AM EST [facility] Immature Granulocytes-Re lative 0.50 % 03/26/2024 9:55 AM EST [facility] # IG 0.05(H) 0.00 - 0.00 K/uL 03/26/2024 9:55 AM [facility] Blood Venipuncture / Unknown 03/26/2024 9:26 AM EST 03/26/2024 9:46 AM EST Narrative [facility] - 03/26/2024 9:55 AM EST When [...] MD LAB BLOOD ORDERABLES Final Resu lt [facility] [address] [phone] * Parathyroid Hormone Intact(SENDOUT) (03/26/2024 9:26 AM EST) Pathologist [facility] Parathyroid Hormone, Intact 62 15 - 65 pg/mL 03/27/2024 8:04 PM EST [employer] Comment: Performed By: [employer] [address] [place] [address] Elevator Service Technician: Cameron Javier MD, PhD CLIA Number: [id number] Blood Venipuncture / Unknown 03/26/2024 9:26 AM EST 03/26/2024 9:46 AM EST Jero Vale MD LAB BLOOD ORDERABLES Final Resu lt Performing Organization Address [facility] Co de Phone Number [employer] [address] [place] [address], [facility] [phone] * Vitamin D, 25-Hydroxy (03/26/2024 9:26 AM EST) [facility] Vitamin D 25-Hydroxy 64.6 30 - 100, >100 Toxic ng/mL 03/26/2024 10:53 AM EST [facility] Blood Venipuncture / Unknown 03/26/2024 9:26 AM EST 03/26/2024 9:47 AM EST Narrative [facility] - 03/26/2024 10:53 AM EST <20 Deficient 20 to 29 Insufficient 30 to 100 Sufficient >100 Toxic Biotin supplements can cause clinically significant incorrect lab results. The FDA has seen an increase in the number of adverse events related to biotin interference with lab tests. Jero Vale MD LAB BLOOD ORDERABLES Final Resu lt [facility] [address] [phone] * Creatinine, random urine (03/26/2024 9:26 AM EST) Pathologist [facility] Creatinine, Ur 44 mg/dL 03/26/2024 10:31 AM EST [facility] Urine URINE SPECIMEN COLLECTION, CLEAN CATCH / Unknown 03/26/2024 9:26 AM EST 03/26/2024 9:45 AM EST Narrative [facility] - 03/26/2024 10:31 AM EST Reference Range: No Normals us Jero Vale MD URINE ORDERABLES Final Result Performing Organization Address City/[facility]/ZIP Co de Phone Number [facility] [address] [place] [address] * Protein, random urine (03/26/2024 9:26 AM EST) Protein, Urine 25 mg/dL 03/26/2024 10:31 AM EST [facility] Comment:No normal reference range established Urine URINE SPECIMEN COLLECTION, CLEAN CATCH / Unknown 03/26/2024 9:26 AM EST 03/26/2024 9:45 AM EST us Jero Vale MD URINE ORDERABLES Final Result Performing Organization Address [facility] Co de Phone Number [facility] [address] [place] [address] * (ABNORMAL) Urinalysis w/Microscopic (03/26/2024 9:26 AM EST) Color, UA Yellow 03/26/2024 10:03 AM EST [facility] Comment:This is a corrected result. Previous result was Straw on 03/26/2024 at 1002 EST Clarity, UA Hazy 03/26/2024 10:03 AM EST [facility] Comment:This is a corrected result. Previous result was Clear on 03/26/2024 at 1002 EST Specific Eldred, UA 1.015 1.002 - 1.030 03/26/2024 10:03 AM EST [facility] pH, UA 6.0 5.0 - 9.0 03/26/2024 10:03 AM EST [facility] Leukocytes, UA 1+(A) Negative 03/26/2024 10:03 AM EST [facility] Nitrite, UA Negative Negative 03/26/2024 10:03 AM EST [facility] Protein, UA Negative Negative 03/26/2024 10:03 AM [facility] Glucose, UA Negative Negative 03/26/2024 10:03 AM [facility] Ketones, UA Negative Negative 03/26/2024 10:03 AM [facility] Urobilinogen, UA 0.2 mg/dL Normal 03/26/2024 10:03 AM [facility] Bilirubin, UA Negative Negative 03/26/2024 10:03 AM [facility] Blood, UA 3+(A) Negative 03/26/2024 10:03 AM [facility] RBC, UA Too Numerous To Count(A) None Seen, Rare /HPF 03/26/2024 10:03 AM [facility] WBC, UA 10-20(A) None Seen, Occasional , 0-5 /HPF 03/26/2024 10:03 AM [facility] Bacteria, UA Trace(A) None Seen 03/26/2024 10:03 AM [facility] Mucus Trace Trace 03/26/2024 10:03 AM [facility] SQUAMOUS EPITHELIAL Occasional( A) None Seen, Rare /HPF 03/26/2024 10:03 AM [facility] HYALINE CASTS Occasional( A) None Seen, Rare /LPF 03/26/2024 10:03 AM [facility] Specimen Source Urine, Clean Catch 03/26/2024 10:03 AM [facility] Urine URINE SPECIMEN COLLECTION, CLEAN CATCH / Unknown 03/26/2024 9:26 AM EST 03/26/2024 9:45 AM EST Jero Vale MD URINE ORDERABLES Edited Result - Final [facility] [address] [place] [address] [phone] * (ABNORMAL) Renal Function Panel (03/26/2024 9:26 AM EST) Sodium 141 136 - 145 meq/L 03/26/2024 3:07 PM [facility] Potassium 4.1 3.5 - 5.1 meq/L 03/26/2024 3:07 PM [facility] Chloride 100 98 - 107 meq/L 03/26/2024 3:07 PM [facility] CO2 34(H) 21 - 32 meq/L 03/26/2024 3:07 PM [facility] Creatinine 1.81(H) 0.70 - 1.20 mg/dL 03/26/2024 3:07 PM [facility] Anion Gap 11 11 - 22 03/26/2024 3:07 PM [facility] BUN 42(H) 7 - 18 mg/dL 03/26/2024 3:07 PM [facility] Glucose 145(H) 70 - 99 mg/dL 03/26/2024 3:07 PM [facility] Calcium 9.3 8.5 - 10.1 mg/dL 03/26/2024 3:07 PM [facility] Phosphorus 4.3 2.6 - 4.9 mg/dL 03/26/2024 3:07 PM [facility] Albumin 3.6 3.4 - 5.0 g/dL 03/26/2024 3:07 PM [facility] Osmolality Calc 294.3 3:07 PM [facility] eGFR (mL/min/1.73m2) 36(L) >=60 mL/min/1.7 3m2 03/26/2024 3:07 PM [facility] Comment:ESTIMATED GFR IS NOT ACCURATE CREATININE CLEARANCE IN PREDICTING GLOMERULAR FILTRATION RATE. ESTIMATED GFR IS NOT APPLICABLE FOR DIALYSIS PATIENTS. Blood Venipuncture / Unknown 03/26/2024 9:26 AM EST 03/26/2024 9:47 AM EST us Jero Vale MD LAB BLOOD ORDERABLES Final Resu lt [facility] [address] [place] [address], [facility] [phone] documented in this encounter Visit Diagnoses Diagnosis Anemia- Primary Unspecified anemia Secondary hyperparathyroidism of renal origin (HCC) Secondary hyperparathyroidism (of renal origin) Chronic kidney disease (CKD) stage G3b/A1, moderately decreased glomerular filtration rate (GFR) between 30-44 mL/min/1.73 square meter and albuminuria creatinine ratio less than 30 mg/g (HCC) documented in this encounter Care Teams Regional Planner Relationship Specialty Start Date End Date Christopher Yadav MD [address] [place] [address] PCP - General General Internal Medicine 03/15/23 documented as of this encounter
--- OUTSIDE RECORDS SUMMARY | 2024-10-15 12:01 | XMS_ITS | Encounter Summary ---
Author Organization Healthcare Address [address] [place] [address] Care Team Providers Care Fund Controller Name Role Phone Christopher Yadav MD Primary Care Provider [phone] Encounter Details Date Type Department Care Team (Late st Contact Info) Description 07/27/2023 Orders Only External Location [address] [place] [address] Provider, External Social History Tobacco Use Types [...] on filedocumented in this encounter Care Teams Fund Controller Relationship Specialty Start Date End Date Christopher Yadav MD [address] [facility] [address] [place] [address] PCP - General 07/11/20 documented as of this encounter
--- OUTSIDE RECORDS SUMMARY | 2024-10-15 12:02 | XMS_ITS | Clinical Summary ---
Author Organization Healthcare Address [address] [place] [address] Care Team Providers Care Steam Engineer Name Role Phone Christopher Yadav MD Primary Care Provider [phone] Allergies No known active allergies Medications amLODIPine (Norvasc) 5 MG tablet Take 1 tablet (5 mg) by mouth 1 (one) time each day. 03/22/2016 Active allopurinol (Zyloprim) 100 MG tablet Take 1 tablet (100 mg) by mouth 1 (one) time each day. 07/20/2016 Active aspirin 81 MG EC tablet Take 1 tablet (81 mg) by mouth every night. Active calcitriol (Rocaltrol) 0.25 MCG capsule Take 1 capsule (0.25 mcg) by mouth 3 (three) times a week. 07/29/2023 Active clopidogrel (Plavix) 75 MG tablet Take 1 tablet (75 mg) by mouth every night. 03/16/2016 Active coenzyme Q-10 100 MG capsule Take 1 capsule (100 mg) by mouth every night. Active cyanocobalamin 1000 MCG tablet Take 1 tablet (1,000 mcg) by mouth 1 (one) time each day. Active famotidine (Pepcid) 20 MG tablet Take 1 tablet (20 mg) by mouth 1 (one) time each day. 03/03/2023 Active furosemide (Lasix) 20 MG tablet Take 1 tablet (20 mg) by mouth 1 (one) time each day. 12/20/2022 Active gabapentin (Neurontin) 300 MG capsule 1 capsule in the morning and 2 capsules at night 01/30/2019 Active hydrALAZINE (Apresoline) 10 MG tablet Take 1 tablet (10 mg) by mouth twice a day. 07/27/2023 Active insulin NPH-insulin regular (Novolin 70-30,Humulin 70-30) (70-30) 100 UNIT/ML injection vial Inject 0.42 mL (42 Units) under the skin 2 (two) times a day before meals. 42 units AM and 16 units PM 04/20/2016 Active polyethylene glycol (Miralax) 17 g packet Take 17 g by mouth 1 (one) time each day. Active simethicone (Mylicon,Gas-X) 125 MG capsule Take 1 capsule (125 mg) by mouth every night. 01/30/2019 Active simvastatin (Zocor) 40 MG tablet Take 1 tablet (40 mg) by mouth every night. 04/15/2016 Active tamsulosin (Flomax) 0.4 MG 24 hr capsule 08/18/2023 Activ e baclofen (Lioresal) 10 MG tablet Take by mouth 3 (three) times a day if needed for muscle spasms. Active busPIRone (Buspar) 10 MG tablet Active glyBURIDE (Diabeta) 5 MG tablet TWO TABLETS Q AM AND EVENING Active insulin detemir (Levemir FlexPen) 100 UNIT/ML injection pen Active lisinopril-hydr oCHLOROthiazide 20-25 MG tablet Acti ve Active Problems Problem Noted Date Diagnosed Date [...] Vaccines (2 - Tdap) 02/28/2022 02/29/2012, 01/16/1998 [id number] Vaccine ( season) 2023 02/03/2023, 12/22/2021, 06/25/2021, [...] this topic Medical Devices Implanted Type Area Wrapper Leaf Inspector Device Identifier Shelf Expiration Date Model / Serial / Lot Hip Hip Left: Hip Insurance [facility]IC[facility] Care Teams Steam Engineer Relationship Specialty Start Date End Date Christopher Yadav MD [address] [facility] [address] [place] [address] PCP - General 07/11/20
--- OUTSIDE RECORDS SUMMARY | 2024-10-15 12:02 | XMS_ITS | Encounter Summary ---
Author Organization [employer] ([place], [place], [place], [place]) Address [address] [place] [address] Care Team Providers Care Manager Quality Name Role Phone Christopher Yadav MD Primary Care Provider [phone] Encounter Details Date Type Department Care Team [...] Date Ehsan rded Speak language other than Telugu at home Not on file 03/11/2023 Want [...] Description 12/19/2024 9:45 AM EDT Office Visit [facility] - [address] [place] [address] Arnol Courtney MD [address] [facility] [address] [place] [address] documented as of this encounter Visit Diagnoses Not on filedocumented in this encounter Care Teams Manager Quality Relationship Specialty Start Date End Date Christopher Yadav MD [address] [place] [address] [place] [address] PCP - General General Internal Medicine 03/15/23 documented as of this encounter
--- OUTSIDE RECORDS SUMMARY | 2024-10-15 12:02 | XMS_ITS | Encounter Summary ---
Author Organization [employer] ([place], [place], [place], [place]) Address [address] [place] [address] Care Team Providers Care Senior Vice President Name Role Phone Christopher Yadav MD Primary Care Provider [phone] Encounter Details Date Type Department Care Team (Late st Contact Info) Description 08/04/2023 Surgery Prep [facility] Urology - [address] [address] Samuel Mata MD [address] [address] Elevated PSA (Primary Dx) Social [...] Date Ehsan rded Speak language other than Wolof at home Not on file 03/11/2023 Want [...] of Assessment Author No 03/24/2023 8:05 AM Julinaa Poe RN * Because of a physical, [...] Description 12/19/2024 9:45 AM EDT Office Visit [facility] [place] [address] [facility] [address] [place] [address] Arnol Courtney MD [address] [facility] [address] [place] [address] documented as of this encounter Visit Diagnoses Diagnosis Elevated PSA- Primary Elevated prostate specific antigen (PSA) documented in this encounter Care Teams Senior Vice President Relationship Specialty Start Date End Date Christopher Yadav MD [address] [place] [address] [place] [address] PCP - General General Internal Medicine 03/15/23 documented as of this encounter
--- OUTSIDE RECORDS SUMMARY | 2024-10-15 12:02 | XMS_ITS | Encounter Summary ---
Author Organization [employer] ([place], [place], [place], [place]) Address [address] [place] [address] Care Team Providers Care Surgical Nurse Practitioner Name Role Phone Christopher Yadav MD Primary Care Provider [phone] Encounter Details Date Type Department Care Team (Late st Contact Info) Description 07/14/2023 Outside Orders [facility] Urology - [address], [address] [address] Emi Lau Social History Tobacco [...] Date Ehsan rded Speak language other than Cambodian at home Not on file 03/11/2023 Want [...] Description 12/19/2024 9:45 AM EDT Office Visit [facility] - [address] [place] [address] Arnol Courtney MD [address] [facility] [address] [place] [address] documented as of this encounter Visit Diagnoses Not on filedocumented in this encounter Care Teams Surgical Nurse Practitioner Relationship Specialty Start Date End Date Christopher Yadav MD [address] [place] [address] PCP - General General Internal Medicine 03/15/23 documented as of this encounter
--- OUTSIDE RECORDS SUMMARY | 2024-10-15 12:02 | XMS_ITS | Encounter Summary ---
Author Organization [employer] ([place], [place], [place], [place]) Address [address] [place] [address] Care Team Providers Care Log Cutter Name Role Phone Christopher Yadav MD Primary Care Provider [phone] Encounter Details Date Type Department Care Team [...] Description 12/19/2024 9:45 AM EDT Office Visit [facility] - [address] [place] [address] Arnol Courtney MD [address] [facility] [address] [place] [address] documented as of this encounter Visit Diagnoses Not on filedocumented in this encounter Care Teams Log Cutter Relationship Specialty Start Date End Date Christopher Yadav MD [address] [place] [address] PCP - General General Internal Medicine 03/15/23 documented as of this encounter
--- OUTSIDE RECORDS SUMMARY | 2024-10-15 12:02 | XMS_ITS ---
Author Organization [employer] ([place], [place], [place], [place]) Address [address] [place] [address] Care Team Providers Care Assistant To The President Name Role Phone Christopher Yadav MD Primary Care Provider [phone] Active Problems Problem Noted Date Diagnosed Date [...] treatments are documented for this patient in [facility]. Treatments may have been administered in another system.
--- OUTSIDE RECORDS SUMMARY | 2024-10-15 12:02 | XMS_ITS | Encounter Summary ---
Author Organization [employer] ([place], [place], [place], [place]) Address [address] [place] [address] Care Team Providers Care Infantry Weapons Officer Name Role Phone Christopher Yadav MD Primary Care Provider [phone] Encounter Details Date Type Department Care Team ([facility] st Contact Info) Description 08/23/2023 Telephone [facility] - [address] [place] [address] Wanda Peres, SEMI DRIVER Social History Tobacco Use Types Packs/Day Years [...] Date Ehsan rded Speak language other than Uzbek at home Not on file 03/11/2023 Want [...] Description 12/19/2024 9:45 AM EDT Office Visit [facility] - [address] [place] [address] Arnol Courtney MD [address] [facility] [address] [place] [address] documented as of this encounter Visit Diagnoses Not on filedocumented in this encounter Care Teams Infantry Weapons Officer Relationship Specialty Start Date End Date Christopher Yadav MD [address] [place] [address] PCP - General General Internal Medicine 03/15/23 documented as of this encounter
--- OUTSIDE RECORDS SUMMARY | 2024-10-15 12:02 | XMS_ITS | Clinical Summary ---
Author Organization [facility] Address [address] [place] [address] Care Team Providers Care Assisted Living Manager Name Role Phone Christopher Yadav MD Primary Care Provider [phone] Allergies No known active allergies Medications coenzyme Q10 100 MG capsule Take 1 capsule by mouth Daily. Active allopurinol (ZYLOPRIM) 100 MG tablet Take 1 tablet by mouth 2 (two) times a day. Morning and night Active clopidogrel (PLAVIX) 75 MG tablet Take 1 tablet by mouth Daily. Active aspirin 81 MG EC tablet Take 1 tablet by mouth Daily. Active vitamin B-12 (CYANOCOBALAMIN ) 1000 MCG tablet Take 1 tablet by [...] Take 1 capsule by mouth Daily. Active sulfamethoxazol e-trimethoprim (BACTRIM DS,SEPTRA DS) 800-160 MG per tablet [...] With Meals. 110 mL 1 5 Active Active Problems Problem Noted Date Diagnosed Date Acute urinary retention 07/28/2023 Anemia 07/28/2023 Leg swelling 07/28/2023 Chronic kidney disease 01/07/2022 Assessment & Plan (05/18/2024 11:56 AM EDT): Continue nephrology follow up. Assessment & Plan (05/12/2022 12:10 PM EDT): Continue nephrology follow up. Assessment & Plan (01/07/2022 11:27 AM EST): Continue nephrology follow up. We suggested checking CMP today but he says craft demonstrator is checking this regularly.. Type 2 diabetes [...] 11:27 AM EST): Continue statin. He says lead network engineer is checking lipids. Assessment & Plan (08/12/2021 [...] or training? Not on file Preferred Language Scottish 07/28/2023 Sex and Gender Information Value Date [...] Description 12/19/2024 11:00 AM EDT Office Visit [facility] [address] [address] Daniel Vasquez MD [address] [address] Health Maintenance Due Date Last Done Comments DIABETIC FOOT EXAM 1950 ZOSTER VACCINE (1 of 2) 1988 TDAP/TD VACCINES (2 - Tdap) 01/17/2008 01/16/1998 RSV Vaccine - Adults (1 - 1- dose 75+ series) 2013 Pneumococcal Vaccine 50+ (2 of 2 - PCV) 12/16/2017 12/16/2016, 12/03/2015 ANNUAL WELLNESS VISIT 11/14/2018 DIABETIC EYE EXAM 05/20/2023 05/19/2022 COVID-19 Vaccine (7 2023-2 5 season) 2023 02/03/2023, 12/22/2021, 06/25/2021, Additional [...] - 29.0 mg/g 05/19/2024 12:48 AM EDT [facility] Creatinine, Urine 53.7 mg/dL 05/19/2024 12:48 AM EDT [facility] Microalbumin, Urine 3.1 mg/dL 05/19/2024 12:48 AM EDT [facility] Urine Urine specimen obtained by clean catch procedure / Unknown Collection / Unknown 05/18/2024 12:04 PM EDT 05/18/2024 12:04 PM EDT Daniel Vasquez MD URINE ORDERABLES Final Re sult [facility]
[address] [place] [address], * (ABNORMAL) Lipid Panel (05/18/2024 12:04 PM EDT) Total Cholesterol 130 0 - 200 mg/dL 05/18/2024 11:44 PM EDT [facility] Triglycerides 66 0 - 150 mg/dL 05/18/2024 11:44 PM EDT [facility] HDL Cholesterol 61(H) 40 - 60 mg/dL 05/18/2024 11:44 PM EDT [facility] LDL Cholesterol 55 0 - 100 mg/dL 05/18/2024 11:44 PM EDT [facility] VLDL Cholesterol 14 5 - 40 mg/dL 05/18/2024 11:44 PM EDT [facility] LDL/HDL Ratio 0.91 05/18/2024 11:44 PM EDT [facility] Blood Structure of left upper limb / Unknown Venipuncture / Unknown 05/18/2024 12:04 PM EDT 05/18/2024 12:04 PM EDT Narrative [facility] - 05/18/2024 11:44 PM EDT [...] is calculated using the NIH LDL-C calculation. Daniel Vasquez MD LAB BLOOD ORDERABLES Savanah l Result [facility]
[address] [place] [address], [place] [phone] * (ABNORMAL) POC Glycosylated Hemoglobin (Hb A1C) (05/18/2024 11:48 AM EDT) [facility] Signature Hemoglobin A1C 7.0(A) 4.5 - 5.7 % [facility] Lot Number [id number] [facility] Expiration Date 01/03/26 [facility] Blood 05/18/2024 11:4 8 AM EDT Daniel Vasquez MD POINT OF CARE TEST ORDERA BLES Final Result Performing Organization Address [facility] Co de Phone Number [facility]
[address] [place] [address], [place] [phone] * SCANNED - EYE EXAM (05/19/2022) Anatomical Region Laterality Modality Other Daniel Vasquez MD CHART REVIEW TABS Savanah l Result from Last 3 Months or Most Recently Relevant to Health Maintenance Insurance MEDICARE A & B [facility] SUPP Advance Directives * CPR (Attempt to [...] pulse or is breathing): Full Care Teams Assisted Living Manager Relationship Specialty Start Date End Date Christopher Yadav MD [facility] [address] [facility] [place] [address] PCP - General Internal Medicine 07/27/23
--- OUTSIDE RECORDS SUMMARY | 2024-10-15 12:02 | XMS_ITS | Referral Summary ---
Author Organization [employer] ([place], [place], [place], [place]) Address [address] [place] [address] Care Team Providers Care Rehab Consultant Name Role Phone Christopher Yadav MD Primary Care Provider [phone] Encounters Date Type Department Care Team Description 09/25/2024 Telephone [facility] [address] [place] [address] Mary Jane Marley APRN Abnormal Imaging Result 09/17/2024 Travel 09/17/2024 9:00 AM EDT Office Visit [facility] [address] [place] [address] Xochitl Serra MD Prostate cancer (HCC) (Primary Dx); Renal dysfunction 09/13/2024 Travel 09/13/2024 4:45 PM EDT Lab Patient [facility] [address] [place] [address] Xochitl Serra MD Prostate cancer (HCC) from [...] (40 mg total) by mouth nightly. 01/18/20 Active calcitrioL (ROCALTROL) 0.25 MCG capsule Take [...] times daily. 6 tablet 03/12/19 25 Active Active Problems Problem Noted Date Diagnosed [...] (chronic kidney disease), stage III 03/16/19 24 Social History Tobacco Use Types Packs/Day Years [...] Date Ehsan rded Speak language other than Belgian at home Not on file 03/11/2023 Want [...] Description 12/19/2024 9:45 AM EDT Office Visit [facility] - [address] [place] [address] Arnol Courtney MD [address] [facility] [address] [place] [address] Medical Devices Implanted Type Area Cover Operator Device Identifier Shelf Expiration Date Model / Serial / Lot Stents-Machado ry Stents-Coron maribel Heart Head Fem Delta 36mm +0mm - [id number] Implanted:Qty : 1 on 03/21/2023 by Eric Parkinson MD at [facility] [employer] Left: Hip [employer] [id number] 05/31/2027 / [id number] / Stem Fem Pf Sz9 113mm - [id number] Implanted:Qty : 1 on 03/21/2023 by Eric Parkinson MD at [facility] [employer] Left: Hip [employer] [id number] 10/03/2027 / [id number] / Liner Ntrl Altn Xle Grp6 36mm 6 - [id number] Implanted:Qty : 1 on 03/21/2023 by Eric Parkinson MD at [facility] [employer] Left: Hip [employer] [id number] 03/17/2027 / [id number] / Cup Clstr-Hole Altn Pcg6 54mm [id number] - [id number] Implanted:Qty : 1 on 03/21/2023 by Eric Parkinson MD at [facility] [employer] Left: Hip [employer] [id number] 10/25/203254 / [id number] / Procedures Procedure Name Priority Date/Time Associated [...] 10.8 K/ L 09/13/2024 1:39 PM EDT [facility] RBC 3.28(L) 3.80 - 5.20 M/ L 09/13/2024 1:39 PM EDT [facility] Hemoglobin 11.3(L) 12.8 - 17.4 GM/DL 09/13/2024 1:39 PM EDT [facility] Hematocrit 34.2(L) 39.0 - 51.0 % 09/13/2024 1:39 PM EDT [facility] MCV 104(H) 81 - 101 fL 09/13/2024 1:39 PM EDT [facility] MCH 34.5(H) 27.0 - 34.0 pg 09/13/2024 1:39 PM EDT [facility] MCHC 33.0 32.0 - 36.0 GM/DL 09/13/2024 1:39 PM EDT [facility] RDW 14.5 11.5 - 14.5 % 09/13/2024 1:39 PM EDT [facility] Platelets 202 150 - 400 K/CU MM 09/13/2024 1:39 PM EDT [facility] MPV 9.9 9.4 - 12.4 fL 09/13/2024 1:39 PM EDT [facility] Nucleated Red Blood Cell 0.0 0 - 0.2 % 09/13/2024 1:39 PM EDT [facility] % Neutros 75 37 - 80 % 09/13/2024 1:39 PM EDT [facility] % Lymphs 16 10 - 50 % 09/13/2024 1:39 PM EDT [facility] % Monos 7 5 - 13 % 09/13/2024 1:39 PM EDT [facility] % Eos 0 0 - 7 % 09/13/2024 1:39 PM EDT [facility] % Baso 0 0 - 3 % 09/13/2024 1:39 PM EDT [facility] NRBC Absolute <0.01 0 - 0.012 K/ul 09/13/2024 1:39 PM EDT [facility] # Neutros 7.02(H) 2.00 - 6.90 K/ L 09/13/2024 1:39 PM EDT [facility] # Lymphs 1.51 0.60 - 3.40 K/ L 09/13/2024 1:39 PM EDT [facility] # Monos 0.69 0.00 - 0.90 K/ L 09/13/2024 1:39 PM EDT [facility] # Eos 0.03 0.00 - 0.70 K/ L 09/13/2024 1:39 PM EDT [facility] # Baso 0.02 0.00 - 0.20 K/ L 09/13/2024 1:39 PM EDT [facility] Immature Granulocytes-Re lative 0.50 % 09/13/2024 1:39 PM EDT [facility] # IG 0.05(H) 0.00 - 0.00 K/uL 09/13/2024 1:39 PM EDT [facility] Blood Venipuncture / Unknown 09/13/2024 1:26 PM EDT 09/13/2024 1:26 PM EDT Narrative [facility] - 09/13/2024 1:39 PM EDT [...] MD LAB BLOOD ORDERABLES Final Res ult [facility] [address] [place] [address] [phone] * (ABNORMAL) Testosterone Free And Total, Adult Male(SENDOUT) (09/13/2024 1:26 PM EDT) [facility] Testosterone by Immunoassay <3(L) 300 - 720 ng/dL 09/17/2024 12:18 AM EDT [employer] [facility] Comment: INTERPRETIVE INFORMATION: Testosterone by Immunoassay Testosterone immunoassays are both imprecise and inaccurate at low testosterone concentrations, such as those found in children and cisgender females. For these individuals, testing by mass spectrometry is recommended; refer to Testosterone (Adult Females, Children, or Individuals on Testosterone-Suppressing Hormone Therapy) ([employer] test code 9888100). Free or bioavailable testosterone measurements may provide supportive information. For individuals on testosterone hormone therapy, refer to cisgender male reference intervals. No reference intervals have been established for males younger than 14 years or for cisgender females. For a complete set of all established reference intervals, refer to [employer] [facility] [employer]/Tests/Pub/[id number]. Sex Hormone Binding Globulin 64 19 - 76 nmol/L 09/17/2024 12:18 AM EDT [facility] Comment: REFERENCE INTERVAL: Sex Hormone Binding Globulin Access complete set of age- and/or gender-specific reference intervals for this test in the [employer] [facility] Test Directory ([employer]). Testosterone, Free Calculation <1(L) 47 - 244 pg/mL 09/17/2024 12:18 AM EDT [facility] Comment: INTERPRETIVE INFORMATION: Testosterone, Free Calculation Free [...] Children, or Individuals on Testosterone-Suppressing Hormone Therapy) ([employer] test code 9368865). For individuals on testosterone hormone therapy, refer to cisgender male reference intervals. No reference intervals have been established for males younger than 14 years or for cisgender females. For a complete set of all established reference intervals, refer to [employer] [facility]/Tests/Pub/[id number]. Testosterone, Percentage Free <1.1(L) 1.6 - 2.9 % 09/17/2024 12:18 AM EDT [facility] Comment: Performed By: [facility] [address] [place] [address] Wood Boatbuilder Apprentice: Cameron Javier MD, PhD CLIA Number: [id number] Blood Venipuncture / Unknown 09/13/2024 1:26 PM EDT 09/13/2024 1:26 PM EDT Xochitl Serra MD LAB BLOOD ORDERABLES Final Res ult Performing Organization Address [facility] Co de Phone Number [facility] [address] [place] [address], [facility] [phone] * (ABNORMAL) PSA (Lanezer, LUCIA, Alpha, Scott, [facility]) (09/13/2024 1:26 PM EDT) PSA diagnostic (ng/mL) <0.13(L) 0.13 - 4 ng/mL 09/13/2024 8:40 PM EDT [facility] Blood Venipuncture / Unknown 09/13/2024 1:26 PM EDT 09/13/2024 1:26 PM EDT Xochitl Serra MD LAB BLOOD ORDERABLES Final Res ult Performing Organization Address City/[facility]/ZIP Co de Phone Number [facility] [address] [place] [address] * (ABNORMAL) CMP (09/13/2024 1:26 PM EDT) Sodium 140 136 - 145 meq/L 09/13/2024 3:48 PM EDT [facility] Potassium 4.5 3.5 - 5.1 meq/L 09/13/2024 3:48 PM EDT [facility] Chloride 101 98 - 107 meq/L 09/13/2024 3:48 PM EDT [facility] CO2 33(H) 21 - 32 meq/L 09/13/2024 3:48 PM EDT [facility] Calcium 9.3 8.5 - 10.1 mg/dL 09/13/2024 3:48 PM EDT [facility] Glucose 237(H) 74 - 100 mg/dL 09/13/2024 3:48 PM EDT [facility] BUN 39(H) 7 - 18 mg/dL 09/13/2024 3:48 PM EDT [facility] Creatinine 1.93(H) 0.70 - 1.20 mg/dL 09/13/2024 3:48 PM EDT [facility] BUN/Creatinine 20 09/13/2024 3:48 PM EDT [facility] Albumin 3.6 3.4 - 5.0 g/dL 09/13/2024 3:48 PM EDT [facility] Alkaline Phosphatase 151(H) 46 - 116 U/L 09/13/2024 3:48 PM EDT [facility] ALT 19 12 - 78 U/L 09/13/2024 3:48 PM EDT [facility] AST 17 15 - 37 U/L 09/13/2024 3:48 PM EDT [facility] Total Bilirubin 0.5 0.2 - 1.0 mg/dL 09/13/2024 3:48 PM EDT [facility] Protein, Total 7.0 6.4 - 8.2 gm/dL 09/13/2024 3:48 PM EDT [facility] Anion Gap 11 11 - 22 09/13/2024 3:48 PM EDT [facility] A/G Ratio 1.1 09/13/2024 3:48 PM EDT [facility] Globulin 3.4 g/dL 09/13/2024 3:48 PM EDT [facility] Osmolality Calc 296.5 mOsm/kg 3:48 PM EDT [facility] eGFR (mL/min/1.73m2) 33(L) >=60 mL/min/1.7 3m2 09/13/2024 3:48 PM EDT [facility] Comment:ESTIMATED GFR IS NOT ACCURATE CREATININE CLEARANCE IN PREDICTING GLOMERULAR FILTRATION RATE. ESTIMATED GFR IS NOT APPLICABLE FOR DIALYSIS PATIENTS. Blood Venipuncture / Unknown 09/13/2024 1:26 PM EDT 09/13/2024 1:26 PM EDT us Xochitl Serra MD LAB BLOOD ORDERABLES Final Res ult Performing Organization Address City/[facility] Co de Phone Number [facility] [address] [phone] * (ABNORMAL) Hemoglobin A1c (03/15/2023 11:20 AM EST) Hemoglobin A1C 6.5(H) 4.2 - 6.3 % 03/15/2023 12:24 PM EST [facility] Comment: Hemoglobin A1C levels are related to mean glucose during the preceding 2-3 months. Less than 7% demonstrates glycemic control in diabetic patients. Hemoglobin AlC % Suggested Diagnosis > or = 6.5 Diabetic 5.7 - 6.4 Prediabetic <5.7 Non-diabetic eAVG Glucose 139.85 mg/dL 03/15/2023 12:24 PM EST [facility] Blood Venipuncture / Unknown 03/15/2023 11:20 AM EST 03/15/2023 11:35 AM EST us Eric Parkinson MD LAB BLOOD ORDERABLES Fi nal Result Performing Organization Address City/[facility] Co de Phone Number [facility] [address] [phone] from Last 3 Months or Most Recently Relevant to Health Maintenance Insurance MEDICARE [place] [address] [place] [address] [facility] SUPP Advance Directives For more information, please contact: [phone] * Full Code (Latest Code Status on File) Date Activated Date Inactivated Comments 08/16/2023 10:48 AM 08/16/2023 7:35 PM * Full Code Date Activated Date Inactivated Comments 03/21/2023 11:25 AM 03/24/2023 3:00 PM * Full Code Date Activated Date Inactivated Comments 03/21/2023 5:18 AM 03/21/2023 11:25 AM Care Teams Rehab Consultant Relationship Specialty Start Date End Date Christopher Yadav MD [address] [place] [address] PCP - General General Internal Medicine 03/15/23
--- OUTSIDE RECORDS SUMMARY | 2024-10-15 12:02 | XMS_ITS | Clinical Summary ---
Author Organization [employer] ([place], [place], [place], [place]) Address [address] [place] [address] Care Team Providers Care Oyster Worker Name Role Phone Christopher Yadav MD Primary Care Provider [phone] Allergies No known active allergies Medications amLODIPine [...] by mouth 2 (two) times daily. 07/27/19 Active tamsulosin (FLOMAX) 0.4 mg Cap 24 hr capsule SMARTSI Capsule(s) By Mouth Every Evening 08/18/19 Active clopidogreL (PLAVIX) 75 mg tablet Take [...] 2 (two) times daily. 6 tablet 03/12/19 Active Active Problems Problem Noted Date Diagnosed [...] Type Department Care Team Description 09/25/2024 Telephone [facility] [address] [address] Mary Jane Marley APRN Abnormal Imaging Result 09/17/2024 9:00 AM EDT Office Visit [facility] [address] [place] [address] Xochitl Serra MD Prostate cancer (HCC) (Primary Dx); Renal dysfunction 09/17/2024 Travel 09/13/2024 4:45 PM EDT Lab Patient [facility] [address] [place] [address] Xochitl Serra MD Prostate cancer (HCC) [...] Date Ehsan rded Speak language other than [place]ese at home Not on file 03/11/2023 Want [...] Description 12/19/2024 9:45 AM EDT Office Visit [facility] - [address] [place] [address] Arnol Courtney MD [address] [facility] [address] [place] [address] Health Maintenance Due Date Last Done [...] 12/03/2015, 03/14/2013 Medical Devices Implanted Type Area Foreclosure Specialist Device Identifier Shelf Expiration Date Model / Serial / Lot Stents-Machado ry Stents-Coron maribel Heart Head Fem Delta 36mm +0mm [id number] - [id number] Implanted:Qty : 1 on 03/21/2023 by Eric Parkinson MD at [facility] [employer] Left: Hip EXACTECH [id number] 05/31/2027 170-36- / [id number] / Stem Fem Pf Sz9 113mm 190- - [id number] Implanted:Qty : 1 on 03/21/2023 by Eric Parkinson MD at [facility] [employer] Left: Hip EXACTECH [id number] 10/03/2027 190-31-09 / [id number] / Liner Ntrl Altn Xle Grp6 36mm 6 - [id number] Implanted:Qty : 1 on 03/21/2023 by Eric Parkinson MD at [facility] [employer] Left: Hip EXACTECH [id number] 03/17/2027 / [id number] / Cup Clstr-Hole Altn Pcg6 54mm 21-091-43 4 - [id number] Implanted:Qty : 1 on 03/21/2023 by Eric Parkinson MD at [facility] [employer] Left: Hip EXACTECH [id number] 10/25/203254 / [id number] / Procedures Procedure Name Priority Date/Time Associated [...] 10.8 K/ L 09/13/2024 1:39 PM EDT [facility] RBC 3.28(L) 3.80 - 5.20 M/ L 09/13/2024 1:39 PM EDT [facility] Hemoglobin 11.3(L) 12.8 - 17.4 GM/DL 09/13/2024 1:39 PM EDT [facility] Hematocrit 34.2(L) 39.0 - 51.0 % 09/13/2024 1:39 PM EDT [facility] MCV 104(H) 81 - 101 fL 09/13/2024 1:39 PM EDT [facility] MCH 34.5(H) 27.0 - 34.0 pg 09/13/2024 1:39 PM EDT [facility] MCHC 33.0 32.0 - 36.0 GM/DL 09/13/2024 1:39 PM EDT [facility] RDW 14.5 11.5 - 14.5 % 09/13/2024 1:39 PM EDT [facility] Platelets 202 150 - 400 K/CU MM 09/13/2024 1:39 PM EDT [facility] MPV 9.9 9.4 - 12.4 fL 09/13/2024 1:39 PM EDT [facility] Nucleated Red Blood Cell 0.0 0 - 0.2 % 09/13/2024 1:39 PM EDT [facility] % Neutros 75 37 - 80 % 09/13/2024 1:39 PM EDT [facility] % Lymphs 16 10 - 50 % 09/13/2024 1:39 PM EDT [facility] % Monos 7 5 - 13 % 09/13/2024 1:39 PM EDT [facility] % Eos 0 0 - 7 % 09/13/2024 1:39 PM EDT [facility] % Baso 0 0 - 3 % 09/13/2024 1:39 PM EDT [facility] NRBC Absolute <0.01 0 - 0.012 K/ul 09/13/2024 1:39 PM EDT [facility] # Neutros 7.02(H) 2.00 - 6.90 K/ L 09/13/2024 1:39 PM EDT [facility] # Lymphs 1.51 0.60 - 3.40 K/ L 09/13/2024 1:39 PM EDT [facility] # Monos 0.69 0.00 - 0.90 K/ L 09/13/2024 1:39 PM EDT [facility] # Eos 0.03 0.00 - 0.70 K/ L 09/13/2024 1:39 PM EDT [facility] # Baso 0.02 0.00 - 0.20 K/ L 09/13/2024 1:39 PM EDT [facility] Immature Granulocytes-Re lative 0.50 % 09/13/2024 1:39 PM EDT [facility] # IG 0.05(H) 0.00 - 0.00 K/uL 09/13/2024 1:39 PM EDT [facility] Blood Venipuncture / Unknown 09/13/2024 1:26 PM EDT 09/13/2024 1:26 PM EDT Narrative [facility] - 09/13/2024 1:39 PM EDT [...] MD LAB BLOOD ORDERABLES Final Res ult [facility] [address] [place] [address] * (ABNORMAL) Testosterone Free And Total, Adult Male(SENDOUT) (09/13/2024 1:26 PM EDT) [facility] Testosterone by Immunoassay <3(L) 300 - 720 ng/dL 09/17/2024 12:18 AM EDT [facility] Comment: INTERPRETIVE INFORMATION: Testosterone by Immunoassay Testosterone immunoassays are both imprecise and inaccurate at low testosterone concentrations, such as those found in children and cisgender females. For these individuals, testing by mass spectrometry is recommended; refer to Testosterone (Adult Females, Children, or Individuals on Testosterone-Suppressing Hormone Therapy) ([employer] test code 3060379). Free or bioavailable testosterone measurements may provide supportive information. For individuals on testosterone hormone therapy, refer to cisgender male reference intervals. No reference intervals have been established for males younger than 14 years or for cisgender females. For a complete set of all established reference intervals, refer to [employer]/Tests/Pub/[id number]. Sex Hormone Binding Globulin 64 19 - 76 nmol/L 09/17/2024 12:18 AM EDT [facility] Comment: REFERENCE INTERVAL: Sex Hormone Binding Globulin Access complete set of age- and/or gender-specific reference intervals for this test in the [employer] [facility] Test Directory ([employer]). Testosterone, Free Calculation <1(L) 47 - 244 pg/mL 09/17/2024 12:18 AM EDT [facility] Comment: INTERPRETIVE INFORMATION: Testosterone, Free Calculation Free [...] Children, or Individuals on Testosterone-Suppressing Hormone Therapy) ([employer] test code 1623779). For individuals on testosterone hormone therapy, refer to cisgender male reference intervals. No reference intervals have been established for males younger than 14 years or for cisgender females. For a complete set of all established reference intervals, refer to [employer]/Tests/Pub/[id number]. Testosterone, Percentage Free <1.1(L) 1.6 - 2.9 % 09/17/2024 12:18 AM EDT [facility] Comment: Performed By: [employer] [address] [place] [address] Building Services Engineer: Cameron Javier MD, PhD CLIA Number: [id number] Blood Venipuncture / Unknown 09/13/2024 1:26 PM EDT 09/13/2024 1:26 PM EDT Xochitl Serra MD LAB BLOOD ORDERABLES Final Res ult Performing Organization Address City/[facility]/ZIP Co de Phone Number [facility] [address] [id number], [facility] [phone] * (ABNORMAL) PSA (Blazer, LUCIA, Conner, Scott, [facility]) (09/13/2024 1:26 PM EDT) PSA diagnostic (ng/mL) <0.13(L) 0.13 - 4 ng/mL 09/13/2024 8:40 PM EDT [facility] Blood Venipuncture / Unknown 09/13/2024 1:26 PM EDT 09/13/2024 1:26 PM EDT Xochitl Serra MD LAB BLOOD ORDERABLES Final Res ult Performing Organization Address City/[facility]/ZIP Co de Phone Number [facility] [address] [place] [address] * (ABNORMAL) CMP (09/13/2024 1:26 PM EDT) Sodium 140 136 - 145 meq/L 09/13/2024 3:48 PM EDT [facility] Potassium 4.5 3.5 - 5.1 meq/L 09/13/2024 3:48 PM EDT [facility] Chloride 101 98 - 107 meq/L 09/13/2024 3:48 PM EDT [facility] CO2 33(H) 21 - 32 meq/L 09/13/2024 3:48 PM EDT [facility] Calcium 9.3 8.5 - 10.1 mg/dL 09/13/2024 3:48 PM EDT [facility] Glucose 237(H) 74 - 100 mg/dL 09/13/2024 3:48 PM EDT [facility] BUN 39(H) 7 - 18 mg/dL 09/13/2024 3:48 PM EDT [facility] Creatinine 1.93(H) 0.70 - 1.20 mg/dL 09/13/2024 3:48 PM EDT [facility] BUN/Creatinine 20 09/13/2024 3:48 PM EDT [facility] Albumin 3.6 3.4 - 5.0 g/dL 09/13/2024 3:48 PM EDT [facility] Alkaline Phosphatase 151(H) 46 - 116 U/L 09/13/2024 3:48 PM EDT [facility] ALT 19 12 - 78 U/L 09/13/2024 3:48 PM EDT [facility] AST 17 15 - 37 U/L 09/13/2024 3:48 PM EDT [facility] Total Bilirubin 0.5 0.2 - 1.0 mg/dL 09/13/2024 3:48 PM EDT [facility] Protein, Total 7.0 6.4 - 8.2 gm/dL 09/13/2024 3:48 PM EDT [facility] Anion Gap 11 11 - 22 09/13/2024 3:48 PM EDT [facility] A/G Ratio 1.1 09/13/2024 3:48 PM EDT [facility] Globulin 3.4 g/dL 09/13/2024 3:48 PM EDT [facility] Osmolality Calc 296.5 mOsm/kg 3:48 PM EDT [facility] eGFR (mL/min/1.73m2) 33(L) >=60 mL/min/1.7 3m2 09/13/2024 3:48 PM EDT [facility] Comment:ESTIMATED GFR IS NOT ACCURATE CREATININE CLEARANCE IN PREDICTING GLOMERULAR FILTRATION RATE. ESTIMATED GFR IS NOT APPLICABLE FOR DIALYSIS PATIENTS. Blood Venipuncture / Unknown 09/13/2024 1:26 PM EDT 09/13/2024 1:26 PM EDT us Xochitl Serra MD LAB BLOOD ORDERABLES Final Res ult [facility] [address] [place], [place] [address] [phone] * (ABNORMAL) Hemoglobin A1c (03/15/2023 11:20 AM EST) Hemoglobin A1C 6.5(H) 4.2 - 6.3 % 03/15/2023 12:24 PM EST [facility] Comment: Hemoglobin A1C levels are related to mean glucose during the preceding 2-3 months. Less than 7% demonstrates glycemic control in diabetic patients. Hemoglobin AlC % Suggested Diagnosis > or = 6.5 Diabetic 5.7 - 6.4 Prediabetic <5.7 Non-diabetic eAVG Glucose 139.85 mg/dL 03/15/2023 12:24 PM EST [facility] Blood Venipuncture / Unknown 03/15/2023 11:20 AM EST 03/15/2023 11:35 AM EST us Eric Parkinson MD LAB BLOOD ORDERABLES Fi nal Result Performing Organization Address City/[facility]/ZIP Co de Phone Number [facility] [address] [phone] from Last 3 Months or Most Recently Relevant to Health Maintenance Insurance MEDICARE [place] [address] [place] [address] SUPP Advance Directives For more information, please contact: [phone] * Full Code (Latest Code Status on File) Date Activated Date Inactivated Comments 08/16/2023 10:48 AM 08/16/2023 7:35 PM * Full Code Date Activated Date Inactivated Comments 03/21/2023 11:25 AM 03/24/2023 3:00 PM * Full Code Date Activated Date Inactivated Comments 03/21/2023 5:18 AM 03/21/2023 11:25 AM Care Teams Oyster Worker Relationship Specialty Start Date End Date Christopher Yadav MD [address] [place] [address] [place] [address] PCP - General General Internal Medicine 03/15/23
--- OUTSIDE RECORDS SUMMARY | 2024-10-15 12:02 | XMS_ITS | Encounter Summary ---
Author Organization [employer] ([place], [place], [place], [place]) Address [address] [place] [address] Care Team Providers Care Change Analyst Name Role Phone Christopher Yadav MD Primary Care Provider [phone] Reason for Visit * Reason Onset Date Comments Abnormal Imaging Result 09/25/2024 Encounter Details Date Type Department Care Team (Late st Contact Info) Description 09/25/2024 Telephone [facility] - [place] [address] [facility] [address] [place] [address] Mary Jane Marley APRN [address] [facility] [address] [place] [address] Abnormal Imaging Result Social History [...] Date Ehsan rded Speak language other than [place] at home Not on file 03/11/2023 Want [...] Description 12/19/2024 9:45 AM EDT Office Visit [facility] - [place] [address] [facility] [address] [address] [place] [address] Arnol Courtney MD [address] [facility] [address] [place] [address] documented as of this encounter [...] on filedocumented in this encounter Care Teams Change Analyst Relationship Specialty Start Date End Date Christopher Yadav MD [address] [place] [address] [place] [address] PCP - General General Internal Medicine 03/15/23 documented as of this encounter
[2024-10-15 12:04] LABS: Albumin Level 4.1 g/dl (3.5-5.0); Chloride 89 mmol/L (98-107); Sodium 137 mmol/L (136-145)
[2024-10-15 12:05] LABS: Potassium 3.3 mmoL/L (3.5-5.1)
[2024-10-15 12:07] LABS: Alanine Aminotransferase 17 U/L (12-78); Albumin/Globulin Ratio 1.3 (1.1-1.8); Alkaline Phosphatase 110 U/L (38-126); Anion Gap 13.3 mEq/L (5-15); Aspartate Amino Transferase 29 U/L (17-59); Bilirubin,Total 0.7 mg/dl (0.2-1.3); Blood Urea Nitrogen 35 mg/dl (9-20); Carbon Dioxide 38 mmol/L (22.0-30.0); Creatinine Clearance Estimated 45 mL/min (50-200); Creatinine,Serum 2.00 mg/dl (0.66-1.25); Estimated Glomerular Filt Rate 32 ml/min (>60); GFR (African American) 39 ML/MIN (>60); Globulin 3.1 g/dL (1.3-3.2); Total Protein,Serum 7.2 g/dl (6.3-8.2)
[2024-10-15 12:08] LABS: Calcium 8.9 mg/dl (8.4-10.2); Glucose 162 mg/dl (74-100)
[2024-10-15] MEDS: ACETAMINOPHEN 1,000MG/100ML VIAL 1000 MG IV (12:12)
[2024-10-15 12:13] LABS: Coronavirus 19, PCR Not Detected (NotDetected); Influenza A, PCR Not Detected (NotDetected); Influenza B, PCR Not Detected (NotDetected)
[2024-10-15 12:14] LABS: VBG HCO3 37.8 mmol/L (23-30); VBG PCO2 56.0 mmol/L (35-51); VBG PH 7.45 mmol/L (7.31-7.41); VBG PO2 35.9 mmol/L (28-40)
[2024-10-15 12:16] LABS: Lactate Venous 2.7 mmol/L (0.4-2.0)
[2024-10-15 12:17] LABS: NT Pro Brain Natriuretic Pep. 598 pg/mL (0-450)
[2024-10-15 12:20] LABS: Troponin I 0.04 ng/ml (0.00-0.034)
[2024-10-15 12:24] LABS: Macrocytosis 1+; Total Cells Counted 100
[2024-10-15] MEDS: LACTATED RINGERS 1000ML 2,330 ML 1165 ML IV (12:24)
--- NOTE | 2024-10-15 12:24 | HMH.EDGENADL ---
Discharge Plan Disposition Patient Disposition: Admitted Condition: Good Clinical Impressions Clinical Impression: Sepsis, Acute hypoxemic respiratory failure Discharge ED Provider: Ean Patel Adult HPI General Chief complaint: Shortness of Breath/Dyspnea Stated complaint: Low 02 Time Seen by Provider: 10/15/24 11:50 Mode of Arrival: Ambulatory Source of Information: Patient Description of Symptoms (Recalled from ER Triage Doc. by RN): pt is here for low pulse ox reading at home, upon arrival pt O2 was 83% on room air, insurance underwriter applied 2L of o2 and pt came up to 93%, pt recently admitted here two weeks ago History of Present Illness HPI narrative: This is an 84-year-old male patient, with past medical history of coronary artery disease, type 2 diabetes, hypertension, hyperlipidemia, and history of prostate cancer, who is presenting to the emergency department today for evaluation of hypoxia. The patient presents with his son who states that he was going to take his father to an appointment today with urology. Upon arriving to the residence he found that his father was gasping for air in bed and appeared visibly dyspneic. He measured his oxygen saturation with a pulse oximeter and found that it was in the 70s. The patient is on oxygen at nighttime, so his son placed him on oxygen and brought him in for further evaluation. The patient tells me that he has not been feeling well over the last 24 hours and he has had significant chills which is a change from his baseline. Aside from this, he has not had any abdominal pain, chest pain, or urinary symptoms. Related Data Home Medications ?Medication ?Instructions ?Recorded ?Confirmed aspirin 81 mg tablet,delayed 81 mg PO DAILY 10/19/18 10/15/24 release (Adult Low Dose Aspirin) pantoprazole 40 mg tablet,delayed 40 mg PO DAILY 09/23/24 10/15/24 release cholecalciferol (vitamin D3) 50 50 mcg PO DAILY 09/26/24 10/15/24 mcg (2,000 unit) capsule (Vitamin D3) coenzyme Q10 100 mg capsule 100 mg PO DAILY 09/26/24 10/15/24 (CoQ-10) mecobalamin (vitamin B12) 1,000 1,000 mcg PO DAILY 09/26/24 10/15/24 mcg chewable tablet (B12 Active) famotidine 20 mg tablet 20 mg PO DAILY 10/08/24 10/15/24 furosemide 40 mg tablet 40 mg PO BIDP PRN Edema 10/10/24 10/15/24 insulin human U-100 NPH-regulr 55 unit SQ BIDWMEAL 10/15/24 10/15/24 70-30 mix 100 unit/mL subcutaneous susp (Novolin 70/30 U-100 Insulin) Previous Rx's ?Medication ?Instructions ?Recorded simvastatin 40 mg tablet 40 mg PO HS #90 tabs 04/23/24 calcitriol 0.25 mcg capsule 0.25 mcg PO MOWEFR #36 caps 05/04/24 tamsulosin 0.4 mg capsule 0.4 mg PO HS #90 caps 05/15/24 clopidogrel 75 mg tablet 75 mg PO DAILY #90 tabs 07/06/24 gabapentin 300 mg capsule 300 mg PO TID #270 caps 07/06/24 allopurinol 100 mg tablet 100 mg PO BID #180 tabs 08/06/24 prednisone 5 mg tablet 5 mg PO DAILY #30 tabs 09/26/24 hydralazine 10 mg tablet 20 mg (2 x 10 mg) PO BID #180 tabs 10/03/24 Allergies Allergy/AdvReac Type Severity Reaction Status Date / Time No Known Allergies Allergy Verified 10/10/24 10:43 [facility] Disclaimer: The information contained in this section may have been updated after the patient was seen, as this information can be updated by other users. Medical History Diabetic ulcer of left great toe GERD (gastroesophageal reflux disease) Bruise of toe Hypertension Ingrown nail of great toe of left foot Postoperative dehiscence of skin wound Blister of fifth toe, left Encounter for dialysis DIALYSIS X2 IN PAST Tear of retina RIGHT History of COVID-19 History of cataract Edema BLE Osteomyelitis of toe of left foot Other specified symptoms and signs involving the circulatory and respiratory systems Cellulitis of left foot Renal disease HTN (hypertension), benign HLD (hyperlipidemia) T2DM (type 2 diabetes mellitus) Coronary artery disease Anxiety Pain around toenail Onychomycosis Surgical History Hx of cataract surgery Hx of colonoscopy History of surgery JAW SX History of coronary artery stent placement Hx of cardiac cath Family History Other Diabetes Heart attack Social History Smoking Status: Unknown if ever smoked alcohol intake: never substance use type: denies use current occupational status: retired Travel in the last 8 weeks?: None Have you lived/traveled outside [place] in past 30 days?: No Contact w/someone who lives/traveled outside [place] past 30 days?: No Exposure to someone with infectious disease in past 14 days?: No Do you have a fever (greater than 100.4 F or 38 C)?: No Have you tested positive for COVID-19?: No Exposed to someone with COVID-19 in past 14 days?: No Do you have a sore throat?: No Do you have a cough?: No Do you have any weakness?: No Do you have any diarrhea?: No Are you experiencing any unusual bleeding?: No Do you have any muscle aches/pain?: No Do you have any abdominal pain?: No Are you experiencing loss of taste or smell?: No Other Medical History Have you received the Flu Vaccine for this season: No Have you received the Pneumonia Vaccine: Yes ROS Obtained: Yes Systems reviewed as appropriate & no additional complaints except as documented Physical Exam General General appearance: other (See MDM) Respiratory Respiratory exam: Present other (See MDM) Cardiovascular Cardiovascular exam: Present other (See MDM) Neurological Exam Neurological exam: Present other (See MDM) Medical Decision Making Medical Records Medical records reviewed: Yes I reviewed the patient's medical records. Screening: Per USPSTF and CDC recommendations, given the prevalence of disease in our region, it is our hospital?s policy to screen for HIV and viral Hepatitis for all patients aged 18 and over and those with ongoing risk factors. Carlos Inquiry Pt receiving controlled substance: No Carlos was queried for this patient: No Vital Signs: 10/15/24 11:53 10/15/24 11:58 10/15/24 13:12 Temperature 103.2 F H 98.8 F Temperature Source Oral Oral Pulse Rate Pulse Rate [Left Radial] 90 79 Respiratory Rate 26 H 15 Blood Pressure Blood Pressure [Right Arm] 130/61 108/55 L Blood Pressure Mean [Right Arm] 84 72 Blood Pressure Source [Right Arm] Automatic Cuff Blood Pressure Position [Right Arm] Supine 02 Sat by Pulse Oximetry 93 L 93 L 96 Oxygen Delivery Method Nasal Cannula Nasal Cannula Nasal Cannula Oxygen Flow Rate (LPM) 2 2 2 10/15/24 13:34 10/15/24 14:10 Temperature 100.6 F H Temperature Source Oral Pulse Rate 65 Pulse Rate [Left Radial] Respiratory Rate 17 Blood Pressure 108/55 L Blood Pressure [Right Arm] Blood Pressure Mean [Right Arm] Blood Pressure Source [Right Arm] Blood Pressure Position [Right Arm] 02 Sat by Pulse Oximetry Oxygen Delivery Method Room Air Nasal Cannula Oxygen Flow Rate (LPM) 2 Lab Data Lab Results 10/15/24 11:49: WBC 15.7 H, RBC 3.47 L, Hgb 11.6 L, Hct 35.5 L, MCV 102.3 H, MCH 33.4 H, MCHC 32.7, RDW 14.1, Plt Count 188, MPV 10.6 H, Neut % (Auto) 76.6, Lymph % (Auto) 11.6, [place] % (Auto) 10.9 H, Eos % (Auto) 0.3, Baso % (Auto) 0.2, Neut # (Auto) 12.0 H, Lymph # (Auto) 1.8, [place] # (Auto) 1.7 H, Eos # (Auto) 0.1, Baso # (Auto) 0.0, Total Counted 100, Neutrophils % (Manual) 73, Lymphocytes % (Manual) 24, Monocytes % (Manual) 3, Platelet Estimate Normal, Macrocytosis 1+, Sodium 137, Potassium 3.3 L, Chloride 89 L, Carbon Dioxide 38 H, Anion Gap 13.3, BUN 35 H, Creatinine 2.00 H, Estimated Creat Clear 45, Estimated GFR 32 L, Est GFR ( Amer) 39 L, Glucose 162 H, Calcium 8.9, Total Bilirubin 0.7, AST 29, ALT 17, Alkaline Phosphatase 110, Troponin I 0.04 H, NT-Pro-B Natriuret Pep 598 H, Total Protein 7.2, Albumin 4.1, Globulin 3.1, Albumin/Globulin Ratio 1.3 10/15/24 12:03: SARS-CoV-2 (PCR) Not detected, Influenza Type A (PCR) Not detected, Influenza Type B (PCR) Not detected, RSV (PCR) Not detected, Rhinovirus (PCR) Not detected 10/15/24 12:05: Lactate 2.6 H 10/15/24 12:07: VBG pH 7.45 H, VBG pCO2 56.0 H, VBG pO2 35.9, VBG HCO3 37.8 H, VBG Total CO2 39.5 H, VBG O2 Saturation 67.5, VBG Base Excess 13.7 H, VBG Lactic Acid 2.7 H 10/15/24 11:49 10/15/24 11:49 Orders (Tests/Meds): ED MEDICATIONS Generic Name Dose Route Start Last Admin Trade Name Freq PRN Reason Stop Dose Admin Acetaminophen 650 mg 10/15/24 13:12 Acetaminophen 325mg Tab PO 11/14/24 13:11 Q4HP PRN Fever or Mild Pain (1-3) Ondansetron HCl 4 mg 10/15/24 13:12 Ondansetron 4mg/2ml Vial IV 11/14/24 13:11 Q8HP PRN Nausea Discontinued Medications Generic Name Dose Route Start Last Admin Trade Name Freq PRN Reason Stop Dose Admin Acetaminophen 1,000 mg 10/15/24 12:07 10/15/24 12:12 Acetaminophen 1,000mg/100ml Vial IV 10/15/24 12:08 1,000 mg ONCE ONE Administration Lactated Ringer's 2,330 mls @ 1,165 mls/hr 10/15/24 12:06 10/15/24 12:52 Lactated Ringer's 1000 Ml Bag 30 ml/kg infuse over 2 hr (2330 ml) 10/15/24 14:05 500 mls/hr IV Infusion .Q2H ONE Cefepime HCl 2 gm/ Sodium 100 mls @ 200 mls/hr 10/15/24 12:16 10/15/24 12:54 Chloride IV 10/15/24 12:45 Infused ONCE ONE Infusion Metronidazole 500 mg in 100 mls @ 100 mls/hr 10/15/24 12:16 10/15/24 14:17 Flagyl 500mg/100ml Ivpb IV 10/15/24 13:15 Infused ONCE ONE Infusion Vancomycin HCl 2,000 mg/ 250 mls @ 125 mls/hr 10/15/24 12:30 Sodium Chloride IV 10/15/24 14:29 ONCE ONE Miscellaneous 1 each 10/15/24 12:30 Vancomycin Consult Request NOTAPPLIC 11/14/24 12:29 CONSULT PHARMACY FELICIANO ORDERS Category Date Time Status CXR --portable [XR chest portable] Stat Exams 10/15/24 11:55 Completed BNP [NT Pro Brain Natriuretic Pep.] Stat Lab 10/15/24 11:49 Completed CBC w/Auto Diff [Complete Blood Count Auto Diff] Stat Lab 10/15/24 11:49 Completed CMP [Comprehensive Metabolic Panel] Stat Lab 10/15/24 11:49 Completed Lactic Acid Stat Lab 10/15/24 12:05 Completed Mini Respiratory Panel Stat Lab 10/15/24 12:03 Completed Troponin I Q3H Lab 10/15/24 15:15 Completed Troponin I Q3H Lab 10/15/24 18:00 Ordered Troponin I Stat Lab 10/15/24 11:49 Completed Urinalysis and Microscopic Stat Lab 10/15/24 14:54 Results Blood Culture Stat Micro 10/15/24 12:20 Received Urine Culture Stat Micro 10/15/24 12:08 Received Venous Blood Gas Stat RT 10/15/24 12:07 Completed ECG Data Tracing #1: I reviewed this ECG and interpreted as documented below: EKG was obtained and personally interpreted by me. There is significant baseline artifact as the patient is experiencing chills and his EKG is very difficult to interpret. His rate is greater than 90 bpm. Medical Decision Narrative: In summary, this is an 84-year-old male patient who is presenting to the emergency department today for evaluation of hypoxia noted at home in the setting of chills and malaise over the last 24 hours. The patient's comorbidities include hypertension, hyperlipidemia, diabetes, and prostate cancer. On initial evaluation of the patient he appeared very uncomfortable and unwell. He was requiring supplemental oxygen to maintain saturations. He is neurologically intact and answering questions appropriately. His heart and lungs sounded clear to auscultation bilaterally. His abdomen was soft and nontender. He did have delayed capillary refill. He was hemodynamically stable with a heart rate of 95 bpm. Differential diagnosis included pneumonia, heart failure, viral syndrome, sepsis, bacteremia, urinary tract infection, among others. We initiated our workup with hematologic labs as well as a chest x-ray. Shortly after my initial evaluation of the patient's the nurse notified me that he had developed a fever of 103 ?F. At this time the patient's labs were returning and his labs were notable for a leukocytosis of 15. Otherwise his blood gas was remarkable for a lactate of 2.7. The patient's creatinine had improved from prior and his BNP was very similar to prior. Viral swabs were negative. At this time the patient had a mildly elevated lactate, with a heart rate greater than 90 bpm, a fever of 103, and a leukocytosis of 15. Therefore I felt that his presentation was most consistent with sepsis. Sepsis protocol was initiated via the bolus order set. We did draw blood cultures as well as urine cultures. We treated the patient with broad-spectrum antibiotic therapy including vancomycin, cefepime, and Flagyl. The patient does have a history of heart failure, and has recently been on Lasix for volume overload. Due to the fact that he is very fluid sensitive and would be receiving lots of volume with the antibiotics that we administered, we only administered 125 mL of fluid from the sepsis bolus order set. At this time I performed a tissue perfusion reassessment and the patient's capillary refill had improved. He remained hemodynamically stable and I did not feel that the benefits of receiving further fluid rehydration outweighed the risk. Therefore we did not administer any additional fluids. The patient was placed on continuous monitoring with oximetry and telemetry throughout the remainder of his stay in the emergency department. He maintained hemodynamic stability as well as a normal mental status. I had an interactive discussion with the internal medicine service about the patient's case who agreed to evaluate the patient the emergency department. After our discussion their evaluation they agreed to admit the patient to their service and accept primary responsibility of the patient moving forward. Critical Care Critical Care Time Critical Care Time: Yes Attestation: On 10/15/24, the high probability of a clinically significant, sudden or life threatening deterioration of the following system(s) required my full and direct attention, intervention and personal management. The time I documented below is in addition to time spent performing reported procedures but includes the following listed in this critical care notation. Total Time Total Critical Care Time: 45
[2024-10-15] MEDS: CEFEPIME HCL 2 GM in 0.9 % SODIUM CHLORIDE 100 ML IV ×2 (12:40→23:02)
--- NOTE | 2024-10-15 12:50 | PC.NURSE ---
Notified house of admission dx sepsis to hospitalist
[2024-10-15] MEDS: METRONIDAZ/SOD CHL 500 MG/100 ML PIGGYBACK 100 MG IV (13:09)
[2024-10-15 13:12] VITALS: BP 108/55; PULSE 79; RESP 15; TEMP 37.1; O2SAT 96; BMI 35.6
--- NOTE | 2024-10-15 13:13 | PC.NURSE ---
attempted to call report
--- NOTE | 2024-10-15 13:35 | HMH.PHAINT1 ---
Pharmacy Intervention Comments: MEDICATION RECONCILIATION COMPLETED ON PATIENT USING EXTERNAL FILL HISTORY FROM PHARMACY, LIST FROM CARDIOLOGY/PCP OFFICES, AND DISCHARGE SUMMARY FROM PREVIOUS ADMISSION. -VIRGIL ACOSTA, SHERRYD
[2024-10-15 14:10] VITALS: BP 108/55; PULSE 65; RESP 17; TEMP 38.1; O2SAT 95
[2024-10-15 15:00] LABS: Microscopic, Urine URINE MICROSCOPIC (MICROSCOPIC)
[2024-10-15 15:41] LABS: Bilirubin,Urine Negative (Negative); Color,Urine YELLOW (Yellow); Glucose,Urine (UA) Negative (Negative); Ketones,Urine TRACE (Negative); Leukocyte Esterase,Urine Negative (Negative); PH,Urine 6.0 (5.0-8.5); Protein,Urine TRACE (Negative); Specific Gravity, Urine 1.020 (1.005-1.030); Urobilinogen,Urine 0.2 EU/dl (0.2)
[2024-10-15 15:56] LABS: Troponin I 0.07 ng/ml (0.00-0.034)
[2024-10-15 16:00] VITALS: BP 112/54; PULSE 81; RESP 17; TEMP 36.9; O2SAT 93
[2024-10-15 16:16] LABS: Reflex Lactic Add Lactic Reflex
[2024-10-15 16:39] LABS: Squamous Epithelial Cell,Urine Occasional #/hpf (0-5)
[2024-10-15 16:40] LABS: Bacteria,Urine 2+ /lpf; Mucus,Urine 1+ /lpf
[2024-10-15 16:56] LABS: Lactic Acid Follow Up (RFLX 1) 1.1 mmol/L (0.7-2.1)
--- NOTE | 2024-10-15 17:05 | P.HP_ITS ---
<Statement entered by Wyatt Nath MD - 10/16/24 11:41> Personally evaluated patient and agree with the plan of care as outlined by the CLERK GUIDE. History of Present Illness *Admission Date: 10/15/24 *Reason for visit:: Sepsis *History of present illness: Mr. Palmer is a 84-year-old male who presented to the emergency department today with hypoxia, O2 saturation 83% on room air and generalized weakness. He has a primary medical history of type 2 diabetes, hypertension, hyperlipidemia, CAD, prostate cancer, HFpEF, obesity. He was recently discharged from the hospital at the end of August for a HFpEF exacerbation. He presented today with hypoxia to the emergency department and was placed on 2 L nasal cannula which brought his oxygen saturation up to 93%. Son is at bedside and helps to provide history, states that he has not felt well over the last 24 hours and has had chills and fever. Temperature in the ED was 103 lab work was obtained and was notable for leukocytosis of 15 and lactic of 2.7. Viral swabs were negative. Blood cultures were obtained and are pending. Patient did not receive sepsis bolus in the ED due to sensitivity to fluids and HFpEF, received 125 mL was treated with broad-spectrum antibiotics including vancomycin, Flagyl, cefepime. The patient did remain hemodynamically stable in the emergency department, normotensive, heart rate below 90, oxygen saturation above 90% on room air. Patient did receive 1 g Tylenol IV in the ED as well, temperature stabilized at 98.5. Patient does have history of urinary tract infections, urinalysis was obtained and appears negative but was obtained after empiric antibiotics were started. The ED provider contacted hospital medicine for admission, and I was agreeable to admit for further care and monitoring. [facility] Disclaimer: The information contained in this section may have been updated after the patient was seen, as this information can be updated by other users. Medical History Diabetic ulcer of left great toe GERD (gastroesophageal reflux disease) Bruise of toe Hypertension Ingrown nail of great toe of left foot Postoperative dehiscence of skin wound Blister of fifth toe, left Encounter for dialysis DIALYSIS X2 IN PAST Tear of retina RIGHT History of COVID-19 History of cataract Edema BLE Osteomyelitis of toe of left foot Other specified symptoms and signs involving the circulatory and respiratory systems Cellulitis of left foot Renal disease HTN (hypertension), benign HLD (hyperlipidemia) T2DM (type 2 diabetes mellitus) Coronary artery disease Anxiety Pain around toenail Onychomycosis Surgical History Hx of cataract surgery Hx of colonoscopy History of surgery JAW SX History of coronary artery stent placement Hx of cardiac cath Family History Other Diabetes Heart attack Social History Smoking Status: Unknown if ever smoked alcohol intake: never substance use type: denies use current occupational status: retired Travel in the last 8 weeks?: None Have you lived/traveled outside [place] in past 30 days?: No Contact w/someone who lives/traveled outside [place] past 30 days?: No Exposure to someone with infectious disease in past 14 days?: No Do you have a fever (greater than 100.4 F or 38 C)?: No Have you tested positive for COVID-19?: No Exposed to someone with COVID-19 in past 14 days?: No Do you have a sore throat?: No Do you have a cough?: No Do you have any weakness?: No Do you have any diarrhea?: No Are you experiencing any unusual bleeding?: No Do you have any muscle aches/pain?: No Do you have any abdominal pain?: No Are you experiencing loss of taste or smell?: No Other Medical History Have you received the Flu Vaccine for this season: Yes Have you received the Pneumonia Vaccine: Yes Review of Systems Constitutional Constitutional: Reports body ache(s), Reports chills, Reports fever(s) and Denies headache(s) Eyes Eyes: Denies change in vision ENT Ears, Nose, Mouth, and Throat: Denies headache(s) and Denies sinus pain *Cardiovascular Cardiovascular: Denies chest pain, Reports dyspnea and Reports pedal edema *Respiratory Respiratory: Denies cough and Reports dyspnea *Gastrointestinal Gastrointestinal: Denies melena and Denies vomiting *Genitourinary Genitourinary: Denies difficulty urinating and Denies dysuria *Musculoskeletal Musculoskeletal: Reports back pain (Left flank) *Neurologic Neurologic: Denies headache(s) Meds Home Medications and Allergies Home Medications ?Medication ?Instructions ?Recorded ?Confirmed ?Type aspirin 81 mg tablet,delayed 81 mg PO DAILY 10/19/18 0 10/15/24 History release (Adult Low Dose Aspirin) simvastatin 40 mg tablet 40 mg PO HS #90 tabs 5 10/15/24 Rx calcitriol 0.25 mcg capsule 0.25 mcg PO MOWEFR #36 cap s 05/04/24 10/15/24 Rx tamsulosin 0.4 mg capsule 0.4 mg PO HS #90 caps 10/15/24 Rx clopidogrel 75 mg tablet 75 mg PO DAILY #90 tabs 0511/2210/15/24 Rx gabapentin 300 mg capsule 300 mg PO TID #270 caps 11/2210/15/24 Rx allopurinol 100 mg tablet 100 mg PO BID #180 tabs 11/2210/15/24 Rx pantoprazole 40 mg tablet,delayed 40 mg PO DAILY 09/2310/15/24 History release cholecalciferol (vitamin D3) 50 50 mcg PO DAILY 10/15/24 History mcg (2,000 unit) capsule (Vitamin D3) coenzyme Q10 100 mg capsule 100 mg PO DAILY 09/26/24 0 10/15/24 History (CoQ-10) mecobalamin (vitamin B12) 1,000 1,000 mcg PO DAILY 10/15/24 History mcg chewable tablet (B12 Active) prednisone 5 mg tablet 5 mg PO DAILY #30 tabs 09/2610/15/24 Rx hydralazine 10 mg tablet 20 mg (2 x 10 mg) PO BID #18 0 tabs 10/03/24 10/15/24 Rx famotidine 20 mg tablet 20 mg PO DAILY 10/08/2409/28 History furosemide 40 mg tablet 40 mg PO BIDP PRN Edema 09/2810/15/24 History insulin human U-100 NPH-regulr 55 unit SQ BIDWMEAL 10/15/24 History 70-30 mix 100 unit/mL subcutaneous susp (Novolin 70/30 U-100 Insulin) New Prescriptions to Start Prescriptions: Allergies Allergy/AdvReac Type Severity Reaction Status Date / Time No Known Allergies Allergy Verified 10/10/24 10:43 Exam Data for Last 24 hours Vital signs and Labs for Last 24 Hours: Temp Pulse Resp BP Pulse Ox O2 Del Method O2 Flow Rate 98.5 F 81 17 112/54 L 93 L Room Air 2 10/15/24 16:00 10/15/24 16:00 10/15/24 16:00 10/15/24 16:00 10/15/24 16:00 10/15/24 16:00 10/15/24 14:10 Laboratory Results - last 24 hr 10/15/24 11:49: WBC 15.7 H, RBC 3.47 L, Hgb 11.6 L, Hct 35.5 L, MCV 102.3 H, MCH 33.4 H, MCHC 32.7, RDW 14.1, Plt Count 188, MPV 10.6 H, Neut % (Auto) 76.6, Lymph % (Auto) 11.6, [place] % (Auto) 10.9 H, Eos % (Auto) 0.3, Baso % (Auto) 0.2, Neut # (Auto) 12.0 H, Lymph # (Auto) 1.8, [place] # (Auto) 1.7 H, Eos # (Auto) 0.1, Baso # (Auto) 0.0, Total Counted 100, Neutrophils % (Manual) 73, Lymphocytes % (Manual) 24, Monocytes % (Manual) 3, Platelet Estimate Normal, Macrocytosis 1+, Sodium 137, Potassium 3.3 L, Chloride 89 L, Carbon Dioxide 38 H, Anion Gap 13.3, BUN 35 H, Creatinine 2.00 H, Estimated Creat Clear 45, Estimated GFR 32 L, Est GFR ( Amer) 39 L, Glucose 162 H, Calcium 8.9, Total Bilirubin 0.7, AST 29, ALT 17, Alkaline Phosphatase 110, Troponin I 0.04 H, NT-Pro-B Natriuret Pep 598 H, Total Protein 7.2, Albumin 4.1, Globulin 3.1, Albumin/Globulin Ratio 1.3 10/15/24 12:03: SARS-CoV-2 (PCR) Not detected, Influenza Type A (PCR) Not detected, Influenza Type B (PCR) Not detected, RSV (PCR) Not detected, Rhinovirus (PCR) Not detected 10/15/24 12:05: Lactate 2.6 H 10/15/24 12:07: VBG pH 7.45 H, VBG pCO2 56.0 H, VBG pO2 35.9, VBG HCO3 37.8 H, VBG Total CO2 39.5 H, VBG O2 Saturation 67.5, VBG Base Excess 13.7 H, VBG Lactic Acid 2.7 H 10/15/24 14:54: Urine Color Yellow, Urine Appearance Clear, Urine pH 6.0, Ur Specific [place] 1.020, Urine Protein Trace, Urine Glucose (UA) Negative, Urine Ketones Trace, Urine Blood Negative, Urine Nitrate Negative, Urine Bilirubin Negative, Urine Urobilinogen 0.2, Ur Leukocyte Esterase Negative, Urine RBC None, Urine WBC 5-10, Ur Squamous Epith Cells Occasional, Urine Bacteria 2+, Hyaline Casts 3-5, Urine Mucus 1+ 10/15/24 15:15: Troponin I 0.07 H I & O for Last 24 hours: Intake & Output 10/12/24 10/13/24 10/14/24 10/15/24 23:59 23:59 23:59 23:59 Intake Total 325 / 325 Balance 325 / 325 Weight 119.295 kg Constitutional Constitutional: no acute distress, obese and cooperative *Routine HEENT Exam Head: Present normocephalic Eye: Present EOMI and PERRL ENT: Present mucous membranes moist *Routine Neck Exam Neck: Present supple; Absent lymphadenopathy *Routine Respiratory Exam Respiratory: Present CTA bilaterally, able to speak in complete sentences and symmetric chest movement; Absent wheezes or crackles *Routine Cardiovascular Exam Cardiovascular: Present RRR; Absent murmur *Routine Abdominal Exam Abdominal: Present soft and normoactive bowel sounds; Absent tenderness *Routine Rectal Exam Rectal:: deferred *Routine Genitalia Exam Genitalia:: deferred *Routine Extremities Exam Extremities: Present edema; Absent cyanosis, clubbing or calf tenderness Comments: Bilateral lower extremity pitting edema 1+ *Routine Skin Exam Skin: Present intact and warm; Absent rash Comments: Scattered bruising *Routine Neurological Exam Neurological: Present alert, oriented X3 and normal speech Assessment and Plan *Assessment and plan (1) Sepsis: Status: Acute Qualifiers: Acute respiratory failure type: with hypoxia Sepsis acute organ dysfunction status: with acute organ dysfunction Sepsis type: sepsis due to unspecified organism Severe sepsis acute organ dysfunction type: acute respiratory failure Severe sepsis shock status: without septic shock Qualified Code(s): A41.9 - Sepsis, unspecified organism; R65.20 - Severe sepsis without septic shock; J96.01 - Acute respiratory failure with hypoxia Category: Medical Code(s): A41.9 - Sepsis, unspecified organism (2) Leukocytosis: Status: Acute Category: Medical Code(s): D72.829 - Elevated white blood cell count, unspecified (3) Generalized weakness: Status: Acute Category: Medical Code(s): R53.1 - Weakness (4) Hypertension: Status: Chronic Qualifiers: Hypertension type: primary hypertension Qualified Code(s): I10 - Essential (primary) hypertension Category: Medical Code(s): I10 - Essential (primary) hypertension (5) Acute on chronic heart failure with preserved ejection fraction (HFpEF): Problem Comment: This is now compensated Status: Acute Category: Medical Code(s): I50.33 - Acute on chronic diastolic (congestive) heart failure (6) Chronic kidney disease, stage III (moderate): Status: Acute Qualifiers: Chronic kidney disease stage 3 subtype: unspecified whether 3a or 3b Qualified Code(s): N18.30 - Chronic kidney disease, stage 3 unspecified Category: Medical Code(s): N18.30 - Chronic kidney disease, stage 3 unspecified (7) Dyspnea: Status: Acute Qualifiers: Dyspnea type: dyspnea on exertion Qualified Code(s): R06.09 - Other forms of dyspnea Category: Medical Code(s): R06.00 - Dyspnea, unspecified (8) Obesity (BMI 30-39.9): Status: Chronic Category: Medical Code(s): E66.9 - Obesity, unspecified (9) Type 2 diabetes mellitus with diabetic polyneuropathy, with long-term current use of insulin: Status: Chronic Category: Medical Code(s): E11.42 - Type 2 diabetes mellitus with diabetic polyneuropathy; Z79.4 - alf (current) use of insulin Plan Mr. Palmer is a 84-year-old male who presented to the emergency department today with hypoxia, O2 saturation 83% on room air and generalized weakness. He has a primary medical history of type 2 diabetes, hypertension, hyperlipidemia, CAD, prostate cancer, HFpEF, obesity. He was recently discharged from the hospital at the end of August for a HFpEF exacerbation. He presented today with hypoxia to the emergency department and was placed on 2 L nasal cannula which brought his oxygen saturation up to 93%. Son is at bedside and helps to provide history, states that he has not felt well over the last 24 hours and has had chills and fever. Temperature in the ED was 103 lab work was obtained and was notable for leukocytosis of 15 and lactic of 2.7. Viral swabs were negative. Blood cultures were obtained and are pending. Patient did not receive sepsis bolus in the ED due to sensitivity to fluids and HFpEF, received 125 mL was treated with broad-spectrum antibiotics including vancomycin, Flagyl, cefepime. The patient did remain hemodynamically stable in the emergency department, normotensive, heart rate below 90, oxygen saturation above 90% on room air. Patient did receive 1 g Tylenol IV in the ED as well, temperature stabilized at 98.5. Patient does have history of urinary tract infections, urinalysis was obtained and appears negative but was obtained after empiric antibiotics were started. The ED provider contacted hospital medicine for admission, and I was agreeable to admit for further care and monitoring. Plan of care as follows: #Sepsis #Leukocytosis #Weakness ? Patient met sepsis criteria due to elevated WBC, fever, hypoxia. Possibly uremic due to UTI, antibiotics given prior to urinalysis. Patient also comp lains of left flank pain/left lower quadrant pain. Will order CT abdomen/pelvis. ? Patient is currently afebrile, temperature 98.5. Will continue to monitor. Tylenol ordered as needed for fever. ? Patient received empiric antibiotics in the ED, will continue cefepime and vancomycin. Blood cultures pending. Initial lactic 2.7, repeat 1.1. ? PT/OT consulted due to patient weakness/readmission. ? CMP, CBC, magnesium ordered for the a.m. #Hypoxia ? Chest x-ray in the ED nonconcerning for pneumonia, emphysema changes noted. Since admission patient has been stable on room air, greater than 90% O2 saturation. ? Supplemental O2 as needed for oxygen saturation less than 90%. DuoNebs every 6 hours as needed. #CKD stage III ? Patient has known kidney dysfunction, baseline creatinine 2.00?patient at baseline currently BUN 35, creatinine 2.00. Will continue to trend. #Type 2 diabetes ? ACHS fingersticks, sliding scale insulin ordered. ? A1c 09/21 was 6.7%. #HFpEF ? proBNP 598, appears to be close to patient baseline. Patient's lungs CTA. Patient does not appear to be hypervolemic. ? Will continue Lasix 40 mg twice daily. #Chronic home meds: ? Allopurinol 100 mg twice daily, aspirin 81 mg daily, Plavix 75 mg daily, famotidine 20 mg daily, gabapentin 300 mg 3 times daily, hydralazine 20 mg twice daily, simvastatin 40 mg, tamsulosin 0.4 mg at bedtime. ? Holding hydralazine 20 mg twice daily due to hypotension. Full code Ambulate as tolerated Diabetic diet Lovenox?VTE
--- NOTE | 2024-10-15 18:08 | CT_ITS ---
PROCEDURE INFORMATION: Exam: CT Abdomen And Pelvis Without Contrast Exam date and time: 10/15/2024 6:29 PM Age: 84 years old Clinical indication: Abdominal pain; Additional info: Left lower quadrant/left flank pain TECHNIQUE: Imaging protocol: Computed tomography of the abdomen and pelvis without contrast. Radiation optimization: All CT scans at this facility use at least one of these dose optimization techniques: automated exposure control; mA and/or kV adjustment per patient size (includes targeted exams where dose is matched to clinical indication); or iterative reconstruction. COMPARISON: CT ABDOMEN PELVIS W CON 09/26/2024 12:07 AM FINDINGS: Coronary arteries: Coronary atherosclerosis. Liver: Normal. No mass. Gallbladder and biliary ducts: Multiple dependent stones are seen in the gallbladder, no wall thickening or pericholecystic fluid noted. Pancreas: Normal. No ductal dilation. Spleen: Normal. No splenomegaly. Adrenal glands: Normal. No mass. Kidneys and ureters: 5 mm stone left renal collecting system. No hydronephrosis. Stomach and bowel: Sigmoid diverticulosis without diverticulitis. Appendix: No evidence of appendicitis. Intraperitoneal space: Unremarkable. No free air. No significant fluid collection. Vasculature: Unremarkable. No abdominal aortic aneurysm. Lymph nodes: Unremarkable. No enlarged lymph nodes. Urinary bladder: Unremarkable as visualized. Reproductive: Unremarkable as visualized. Bones/joints: Left hip arthroplasty. Soft tissues: Small fat containing umbilical hernia. IMPRESSION: 1. Cholelithiasis without acute cholecystitis. 2. Nonobstructing left-sided nephrolithiasis. 3. Coronary atherosclerosis. 4. Sigmoid diverticulosis without diverticulitis. 5. Dense aortic valve calcifications, this can be seen with aortic stenosis, consider echocardiography if not recently performed.
[2024-10-15] MEDS: VANCOMYCIN HCL 2,000 MG in 0.9 % SODIUM CHLORIDE 250 ML 125 MG IV (18:48)
[2024-10-15 19:24] LABS: Magnesium 1.7 mg/dl (1.6-2.3)
[2024-10-15 20:00] VITALS: BP 112/59; PULSE 77; RESP 17; TEMP 36.6; O2SAT 96
[2024-10-15] MEDS: ALLOPURINOL 100MG TABLET 100 MG PO (21:16)
[2024-10-15] MEDS: GABAPENTIN 300MG CAPSULE 300 MG PO (21:16)
[2024-10-15] MEDS: TAMSULOSIN 0.4MG CAPSULE 0.4 MG PO (21:16)
[2024-10-15] MEDS: PRAVASTATIN 40MG TAB 80 MG PO (21:18)
[2024-10-15 21:26] LABS: POC Glucose,Bedside 203 (70-110)
[2024-10-15] MEDS: humaLOG 100 UNITS/ML 10ML VIAL (SSI) SUBCUT (21:39)
[2024-10-15 23:10] LABS: Troponin I 0.08 ng/ml (0.00-0.034)
[2024-10-16] VITALS (8 sets, daily range): BP systolic 102–143; BP diastolic 47–73; PULSE 60–80; RESP 16–22; TEMP 36.8–37.5; O2SAT 91–97; BMI 35.6
--- NOTE | 2024-10-16 03:06 | ECG_ITS ---
APPROVED REPORT Exam: Resting ECG HR:70 bpm ECG Measurements Heart Rate 70 AXES QRSd 110 QRS -20 QT 396 T 67 QTc 416 Conclusion ATRIAL FIBRILLATION WITH ABERRANT CONDUCTION OR VENTRICULAR PREMATURE COMPLEXES ABNORMAL RHYTHM ECG UNCONFIRMED REPORT Electronically signed by : Jamil Byrne MD 10/16/2024 08:21:40
--- NOTE | 2024-10-16 03:08 | ECG_ITS ---
APPROVED REPORT Exam: Resting ECG HR:78 bpm ECG Measurements Heart Rate 78 AXES QRSd 112 QRS -29 QT 392 T 70 QTc 425 Conclusion ATRIAL FIBRILLATION BORDERLINE LEFT AXIS DEVIATION [QRS AXIS < -20] LOW QRS VOLTAGE IN EXTREMITY LEADS [QRS DEFLECTION < 0.5 mV IN LIMB LEADS] MODERATE INTRAVENTRICULAR CONDUCTION DELAY [110+ ms QRS DURATION] ABNORMAL RHYTHM ECG UNCONFIRMED REPORT Electronically signed by : Jamil Byrne MD 10/16/2024 08:21:35
[2024-10-16] MEDS: POTASSIUM CHLORIDE 20MEQ TAB 40 MEQ PO ×4 (03:26→12:23)
[2024-10-16] MEDS: MAGNESIUM SULFATE IN WATER 2 GM/50 ML PIGGYBACK IV ×2 (03:26→04:34)
--- NOTE | 2024-10-16 04:08 | PC.NURSE ---
Pt A&O x4. Pt VSS. Pt is on 2LNC. Pt placed on telemetry and had a rhythym of AFib, pt has no history of Afib. Provider notified. EKG obtained rhythm was Afib w/ PVC. Provider aware. Pt's mag and potassium are being replaced. Pt medicated per APR. Pt not voicing any concerns at this time. Pt resting w/ call light in reach. POC ongoing.
[2024-10-16] MEDS: humaLOG 100 UNITS/ML 10ML VIAL (SSI) SUBCUT ×4 (05:39→21:28)
[2024-10-16 05:41] LABS: POC Glucose,Bedside 166 (70-110)
--- NOTE | 2024-10-16 05:42 | PC.NURSE ---
Pt c/o a jolt : of chest pain that lasted for a slight second around the time the EKG was obtained. Pt has had no more chest pain. Provider made a holcomb. No new orders. Pt has c/o of a nose bleed rt the oxygen drying his nose out. Humidified oxygen applied.
[2024-10-16 06:27] LABS: Hematocrit 29.7 % (42.0-52.0); Immature Granulocytes % 0.5 %; Mean Corpuscular HGB Conc 32.0 g/dL (31.8-35.4); Mean Corpuscular Hemoglobin 33.0 pg (27.0-31.2); Mean Corpuscular Volume 103.1 fl (80-94); Nucleated Red Blood Cells % 0 %; Platelet Count 154 K/mm3 (142-424); Red Blood Count 2.88 M/mm3 (4.60-6.20); Red Cell Distribution Width-SD 52.9 fL; White Blood Count 9.7 K/mm3 (4.8-10.8)
[2024-10-16 06:30] LABS: Albumin Level 3.3 g/dl (3.5-5.0); Chloride 94 mmol/L (98-107); Potassium 3.4 mmoL/L (3.5-5.1); Sodium 137 mmol/L (136-145)
[2024-10-16 06:32] LABS: Blood Urea Nitrogen 34 mg/dl (9-20); Creatinine Clearance Estimated 47 mL/min (50-200); Creatinine,Serum 1.90 mg/dl (0.66-1.25); Estimated Glomerular Filt Rate 34 ml/min (>60); GFR (African American) 41 ML/MIN (>60)
[2024-10-16 06:33] LABS: Alanine Aminotransferase 10 U/L (12-78); Albumin/Globulin Ratio 1.3 (1.1-1.8); Alkaline Phosphatase 95 U/L (38-126); Anion Gap 9.4 mEq/L (5-15); Aspartate Amino Transferase 24 U/L (17-59); Bilirubin,Total 0.5 mg/dl (0.2-1.3); Calcium 8.5 mg/dl (8.4-10.2); Carbon Dioxide 37 mmol/L (22.0-30.0); Cholesterol 88 mg/dl (140-200); Globulin 2.5 g/dL (1.3-3.2); Glucose 153 mg/dl (74-100); HDL Cholesterol 32 mg/dl (40-60); Magnesium 3.0 mg/dl (1.6-2.3); Total Protein,Serum 5.8 g/dl (6.3-8.2); Triglycerides 97 mg/dl (30-150)
[2024-10-16 06:54] LABS: Hemoglobin 9.4 g/dL (14.1-18.0)
--- NOTE | 2024-10-16 08:09 | EXP.PHA.CONS ---
Pharmacy Consult Date: 10/16/24 Time: 08:09 Referring provider: DR. ARTHUR Reason for Consult:: VANCOMYCIN DOSING Allergies Allergy/AdvReac Type Severity Reaction Status Date / Time No Known Allergies Allergy Verified 10/10/24 10:43 Home Medications ?Medication ?Instructions ?Recorded ?Confirmed ?Type aspirin 81 mg tablet,delayed 81 mg PO DAILY 10/19/18 10/15/24 History release (Adult Low Dose Aspirin) simvastatin 40 mg tablet 40 mg PO HS #90 tabs 04/23/24 10/15/24 Rx calcitriol 0.25 mcg capsule 0.25 mcg PO MOWEFR #36 caps 05/04/24 10/15/24 Rx tamsulosin 0.4 mg capsule 0.4 mg PO HS #90 caps 05/15/24 10/15/24 Rx clopidogrel 75 mg tablet 75 mg PO DAILY #90 tabs 07/06/24 10/15/24 Rx gabapentin 300 mg capsule 300 mg PO TID #270 caps 07/06/24 10/15/24 Rx allopurinol 100 mg tablet 100 mg PO BID #180 tabs 08/06/24 10/15/24 Rx pantoprazole 40 mg tablet,delayed 40 mg PO DAILY 09/23/24 10/15/24 History release cholecalciferol (vitamin D3) 50 50 mcg PO DAILY 09/26/24 10/15/24 History mcg (2,000 unit) capsule (Vitamin D3) coenzyme Q10 100 mg capsule 100 mg PO DAILY 09/26/24 10/15/24 History (CoQ-10) mecobalamin (vitamin B12) 1,000 1,000 mcg PO DAILY 09/26/24 10/15/24 History mcg chewable tablet (B12 Active) prednisone 5 mg tablet 5 mg PO DAILY #30 tabs 09/26/24 10/15/24 Rx hydralazine 10 mg tablet 20 mg (2 x 10 mg) PO BID #180 tabs 10/03/24 10/15/24 Rx famotidine 20 mg tablet 20 mg PO DAILY 10/08/24 10/15/24 History furosemide 40 mg tablet 40 mg PO BIDP PRN Edema 10/10/24 10/15/24 History insulin human U-100 NPH-regulr 20 unit SQ HS 10/15/24 10/15/24 History 70-30 mix 100 unit/mL subcutaneous susp (Novolin 70/30 U-100 Insulin) insulin human U-100 NPH-regulr 35 unit SQ AM 10/15/24 10/15/24 History 70-30 mix 100 unit/mL subcutaneous susp (Novolin 70/30 U-100 Insulin) New Prescriptions to Start Prescriptions: Height: 1.83 m Weight: 119.295 kg Laboratory Results:: Laboratory Results - last 24 hr 10/15/24 11:49: WBC 15.7 H, RBC 3.47 L, Hgb 11.6 L, Hct 35.5 L, MCV 102.3 H, MCH 33.4 H, MCHC 32.7, RDW 14.1, Plt Count 188, MPV 10.6 H, Neut % (Auto) 76.6, Lymph % (Auto) 11.6, Haines % (Auto) 10.9 H, Eos % (Auto) 0.3, Baso % (Auto) 0.2, Neut # (Auto) 12.0 H, Lymph # (Auto) 1.8, Haines # (Auto) 1.7 H, Eos # (Auto) 0.1, Baso # (Auto) 0.0, Total Counted 100, Neutrophils % (Manual) 73, Lymphocytes % (Manual) 24, Monocytes % (Manual) 3, Platelet Estimate Normal, Macrocytosis 1+, Sodium 137, Potassium 3.3 L, Chloride 89 L, Carbon Dioxide 38 H, Anion Gap 13.3, BUN 35 H, Creatinine 2.00 H, Estimated Creat Clear 45, Estimated GFR 32 L, Est GFR ( Amer) 39 L, Glucose 162 H, Calcium 8.9, Total Bilirubin 0.7, AST 29, ALT 17, Alkaline Phosphatase 110, Troponin I 0.04 H, NT-Pro-B Natriuret Pep 598 H, Total Protein 7.2, Albumin 4.1, Globulin 3.1, Albumin/Globulin Ratio 1.3 10/15/24 12:03: SARS-CoV-2 (PCR) Not detected, Influenza Type A (PCR) Not detected, Influenza Type B (PCR) Not detected, RSV (PCR) Not detected, Rhinovirus (PCR) Not detected 10/15/24 12:05: Lactate 2.6 H 10/15/24 12:07: VBG pH 7.45 H, VBG pCO2 56.0 H, VBG pO2 35.9, VBG HCO3 37.8 H, VBG Total CO2 39.5 H, VBG O2 Saturation 67.5, VBG Base Excess 13.7 H, VBG Lactic Acid 2.7 H 10/15/24 14:54: Urine Color Yellow, Urine Appearance Clear, Urine pH 6.0, Ur Specific [place] 1.020, Urine Protein Trace, Urine Glucose (UA) Negative, Urine Ketones Trace, Urine Blood Negative, Urine Nitrate Negative, Urine Bilirubin Negative, Urine Urobilinogen 0.2, Ur Leukocyte Esterase Negative, Urine RBC None, Urine WBC 5-10, Ur Squamous Epith Cells Occasional, Urine Bacteria 2+, Hyaline Casts 3-5, Urine Mucus 1+ 10/15/24 15:15: Troponin I 0.07 H 10/15/24 16:34: Lactate 1.1 10/15/24 18:06: Magnesium 1.7, Troponin I 0.08 H 10/15/24 21:14: POC Glucose 203 H 10/16/24 05:33: POC Glucose 166 H 10/16/24 05:35: WBC 9.7 D, RBC 2.88 L, Hgb 9.4 L D, Hct 29.7 L, MCV 103.1 H, MCH 33.0 H, MCHC 32.0, RDW 14.1, Plt Count 154, MPV 10.7 H, Neut % (Auto) 69.1, Lymph % (Auto) 19.1, Haines % (Auto) 10.0 H, Eos % (Auto) 1.0, Baso % (Auto) 0.3, Neut # (Auto) 6.7, Lymph # (Auto) 1.9, Haines # (Auto) 1.0, Eos # (Auto) 0.1, Baso # (Auto) 0.0, Sodium 137, Potassium 3.4 L, Chloride 94 L, Carbon Dioxide 37 H, Anion Gap 9.4, BUN 34 H, Creatinine 1.90 H, Estimated Creat Clear 47, Estimated GFR 34 L, Est GFR ( Amer) 41 L, Glucose 153 H, Calcium 8.5, Magnesium 3.0 H D, Total Bilirubin 0.5, AST 24, ALT 10 L D, Alkaline Phosphatase 95, Total Protein 5.8 L, Albumin 3.3 L D, Globulin 2.5, Albumin/Globulin Ratio 1.3, Triglycerides 97, Cholesterol 88 L, LDL Cholesterol Direct < 30.00 L, VLDL Cholesterol 19, HDL Cholesterol 32 L, Cholesterol/HDL Ratio 2.8 Medical History: Medical History (Updated 10/15/24 @ 17:30 by Alexia López APRN) Diabetic ulcer of left great toe GERD (gastroesophageal reflux disease) Bruise of toe Hypertension Ingrown nail of great toe of left foot Postoperative dehiscence of skin wound Blister of fifth toe, left Encounter for dialysis Tear of retina History of COVID-19 History of cataract Edema Osteomyelitis of toe of left foot Other specified symptoms and signs involving the circulatory and respiratory systems Cellulitis of left foot Renal disease HTN (hypertension), benign HLD (hyperlipidemia) T2DM (type 2 diabetes mellitus) Coronary artery disease Anxiety Pain around toenail Onychomycosis Assessment and Plan Assessment and plan all Dx Assessment and Plan for all problems:: Pharmacokinetic dosing service Objective: Patient: Floor: Age: 84 yo Serum creatinine: 1.90 mg/dL Height: 72.0 Inches Weight (kg): 119.3 Assessment: IBW (kg): 77.60 Dosing wt(kg): 119.3 Estimated Creatinine clearance (ml/min): 30.6 CRCL method: Cockcroft and Gault using ibw(default). Drug selected: Vancomycin Loading dose (mg): Vd (liters): 95.4 (factor used: 0.8 L/kg) Alireza (hr-1): 0.030 Half life (hrs): 23.10 CLvanco=?? 2.862 L/hr Recommended dose: 2250 mg Interval: 36 hrs Infusion time (hrs): 2.0 Predicted peak (mcg/mL): 34.7 Predicted trough (mcg/mL): 12.51 Total body weight is being used for vancomycin dosing. Recommendations: Give Vancomycin 2250 mg q 36 hrs with an expected Cpeak of 34.7 mcg/ml and an expected Ctrough of 12.51 mcg/ml AUC 0-24 /SONIA Data: SONIA 0.5 mcg/mL:?? AUC/SONIA:? 1048.2 SONIA 1.0 mcg/mL:?? AUC/SONIA:? 524.1 --------- SONIA 1.5 mcg/mL:?? AUC/SONIA:? 349.4 SONIA 2.0 mcg/mL:?? AUC/SONIA:? 262.1 Thank you for the consult, will continue to follow. -VIRGIL ACOSTA, SHERRYD
[2024-10-16] MEDS: CLOPIDOGREL 75MG TAB 75 MG PO (08:38)
[2024-10-16] MEDS: FUROSEMIDE 40 MG TABLET PO (08:38)
[2024-10-16] MEDS: FAMOTIDINE 20MG TABLET 20 MG PO (08:38)
[2024-10-16] MEDS: GABAPENTIN 300MG CAPSULE 300 MG PO ×3 (08:38→21:22)
[2024-10-16] MEDS: ASPIRIN EC 81MG TABLET 81 MG PO (08:38)
[2024-10-16] MEDS: ALLOPURINOL 100MG TABLET 100 MG PO ×2 (08:38→21:22)
--- NOTE | 2024-10-16 09:32 | HMH.OTEV ---
OT Inpatient Evaluation Rehab OT IP Evaluation Start: 10/15/24 13:23 Freq: ONCE Status: Active Protocol: Document 10/16/24 09:22 AJAY (Rec: 10/16/24 09:31 [facility] [id number]) Rehab OT IP Assessment Subjective History Pt oriented x 3 on arrival. Pt agreeable to engage in therapy evaluation. Pt admitted on 10/15/24 due to sepsis. History and physical: Mr. Palmer is a 84-year-old male who presented to the emergency department today with hypoxia, O2 saturation 83% on room air and generalized weakness. He has a primary medical history of type 2 diabetes, hypertension, hyperlipidemia, CAD, prostate cancer, HFpEF, obesity. He was recently discharged from the hospital at the end of August for a HFpEF exacerbation. He presented today with hypoxia to the emergency department and was placed on 2 L nasal cannula which brought his oxygen saturation up to 93%. Son is at bedside and helps to provide history, states that he has not felt well over the last 24 hours and has had chills and fever. Temperature in the ED was 103 lab work was obtained and was notable for leukocytosis of 15 and lactic of 2.7. Viral swabs were negative. Blood cultures were obtained and are pending. Patient did not receive sepsis bolus in the ED due to sensitivity to fluids and HFpEF, received 125 mL was treated with broad-spectrum antibiotics including vancomycin, Flagyl, cefepime. The patient did remain hemodynamically stable in the emergency department, normotensive, heart rate below 90, oxygen saturation above 90% on room air. Patient did receive 1 g Tylenol IV in the ED as well, temperature stabilized at 98.5. Patient does have history of urinary tract infections, urinalysis was obtained and appears negative but was obtained after empiric antibiotics were started. The ED provider contacted hospital medicine for admission, and I was agreeable to admit for further care and monitoring. Subjective Prior to being in the hospital, pt lived at home alone. Pt's son's do live close to him and check on him often. Pt uses a rolling walker or cane during functional transfers. Pt claims normally he is independent with all ADLs and IADLs. Pt normally still drives, but hasn't within the past week because he has been so sick. Objective Patient Orientation Person,Place,Birthday Bed Mobility bed mobility-scooting,bed mobility - supine/sit Assist Level Contact Guard/Hand Hold Transfer Training Sit/Stand Transfer Assist Level Minimal x 1 (25% assist) Rehab OT IP prob,goals,plan Problems Date of Evaluation: 10/16/24 OT IP Problems Bed Mobility,Transfers,Balance,Self care,Safety Rehab Potential Rehab Potential Good Equipment Needs Assistive Devices Rolling / Wheeled Walker Plan OT intervention Plan Bed Mobility,Transfers,Balance,Self care,Safety, Therapeutic Exercise OT Plan Frequency Daily Duration LOS Discharge Goals Bed Mobility Ability Standby Assistance Sit to Stand Chair Contact Guard/Hand Hold Transfer Ability Chair Transfer Contact Guard/Hand Hold Ability Chair Transfer Sit to/from Ambulatory Technique Chair Transfer Rolling Walker Assistive Devices Lower Body Dressing Minimal Assistance Ability Upper Body Dressing Standby Assistance Ability Performing Toilet Contact Guard Hygiene Ability Overall Commode/ Contact Guard Toilet Transfer Ability Commode/Toilet Sit to/from Ambulatory Transfer Technique Discharge Plan OT Discharge Plan Pt will continue to be seen for OT services while at [facility]. At this time, pt would benefit most from short term rehab at SNF following discharge. However, if patient improves during inpatient stay he could possibly return home with OT evaluation and family assistance. Continued skilled therapy is important in order for patient to improve strength, safety, endurance, ADL independence, and functional transfers to reach PLOF. Eval Complexity Eval Charge Codes 14998 - Moderate Complexity PHYSICIAN CERTIFICATION: I certify the specified therapy services for Braeden Palmer are required, authorized, and reviewed every 30 days.
--- NOTE | 2024-10-16 10:00 | HMH.PTEV ---
Physical Therapy Evaluation Rehab PT IP Evaluation Start: 10/15/24 13:23 Freq: ONCE Status: Active Protocol: Document 10/16/24 09:53 MELISSA (Rec: 10/16/24 10:00 MELISSA [id number]) Subjective/History History History Per H&P: Mr. Palmer is a 84-year-old male who presented to the emergency department today with hypoxia, O2 saturation 83% on room air and generalized weakness. He has a primary medical history of type 2 diabetes, hypertension, hyperlipidemia, CAD, prostate cancer, HFpEF, obesity. He was recently discharged from the hospital at the end of August for a HFpEF exacerbation. He presented today with hypoxia to the emergency department and was placed on 2 L nasal cannula which brought his oxygen saturation up to 93%. Son is at bedside and helps to provide history, states that he has not felt well over the last 24 hours and has had chills and fever. Temperature in the ED was 103 lab work was obtained and was notable for leukocytosis of 15 and lactic of 2.7. Viral swabs were negative. Blood cultures were obtained and are pending. Patient did not receive sepsis bolus in the ED due to sensitivity to fluids and HFpEF, received 125 mL was treated with broad-spectrum antibiotics including vancomycin, Flagyl, cefepime. The patient did remain hemodynamically stable in the emergency department, normotensive, heart rate below 90, oxygen saturation above 90% on room air. Patient did receive 1 g Tylenol IV in the ED as well, temperature stabilized at 98.5. Patient does have history of urinary tract infections, urinalysis was obtained and appears negative but was obtained after empiric antibiotics were started. The ED provider contacted hospital medicine for admission, and I was agreeable to admit for further care and monitoring. Subjective Subjective PLOF: Pt reports he was IND with all mobility using a RW prior to admission. Still drives. HOME: Lives alone but has a brother who lives nearby. [facility] How much help from another person do you currently need... Turning from your A little back to your side while in a flat bed without using bedrails? Moving from lying on A little back to sitting on the side of a flat bed without using bedrails? Moving to and from a A little bed to a chair ( including a wheelchair)? Standing up from a A little chair using your arms? (e.g., wheelchair, bedside chair) Walking in hospital A lot room? Climbing 3-5 steps A lot with a railing? Mobility Score 16 Mobility Level [facility] Mobility 5 Stand (1 or more minutes) Mobility Calculator Rehab PT IP Eval Objective Appearance Patient Behavior Appropriate,Cooperative Patient Orientation Person,Place Difficulty following none instructions Speech Pattern Clear Ambulation Patient Able to Yes Ambulate Balance Ability to Arise Able, uses arms to help Sitting Balance Steady, safe Standing Balance Unsteady Rehab PT IP prob,goals,plan Problems Date of Evaluation: 10/16/24 PT IP Problems Bed Mobility,Transfers,Gait,Balance,Self care,Safety Rehab Potential Rehab Potential Good Plan PT Intervention Plan Bed Mobility,Transfers,Gait,Balance,Self care,Safety, Therapeutic Exercise Other Intervention 1-2 times Plan PT Plan Frequency Daily Duration LOS Discharge Goals Bed Transfer Ability Contact Guard/Hand Hold Sit to Stand Chair Contact Guard/Hand Hold Transfer Ability Ambulation Distance 15 (feet) Discharge Plan PT Discharge Plan Pt presents below baseline in functional mobility and strength. Pt not agreeable to ambulate during mobility session d/t being fatigued. Pt reports he ambulated to the bathroom with 1 person assist earlier in the day. At this time, pt most appropriate for inpatient rehabilitation placement upon d/c from [facility]. Pt would benefit from skilled acute care PT while at [facility] to address deficits and prevent further functional decline . Eval Complexity Eval Charge Codes 42911 - Moderate Complexity PHYSICIAN CERTIFICATION: I certify the specified therapy services for Braeden Palmer are required, authorized, and reviewed every 30 days.
--- NOTE | 2024-10-16 10:24 | SW/DCPLANNER ---
Addendum entered by Gale Everett 10/18/24 10:28: Patient will discharge to [facility] level of care today. I have updated patient, family and [facility]. Addendum entered by Gale Everett 10/16/24 15:30: [facility] has accepted this patient starting on 10/18. I have updated patient and MD. Original Note: I spoke w/ patient and his son regarding plans once medically stable for discharge. PT/OT evaluated patient and recommended SNF level of care. Patient and son are agreeable to short term placement and prefer [facility]. I will fax patient information to [facility] vick/ Amarjit [facility]ull[facility]. Discharge date is unknown at this time. I will continue to follow up.
[2024-10-16] MEDS: CEFEPIME HCL 2 GM in 0.9 % SODIUM CHLORIDE 100 ML IV (11:24)
--- NOTE | 2024-10-16 11:38 | P.PN_ITS ---
<Statement entered by Lloyd Guthrie MD - 10/16/24 16:16> Rounded on patient after nurse practitioner. Personally examined and interviewed patient. Agree with exam findings and care plan as documented. Subjective *Date: 10/16/24 *Time: 15:58 Interval history: Patient is overall doing well this morning. Lying in bed, son at bedside. Denies chest pain, shortness of breath. He does state he had an episode overnight where he had sharp pain in his left chest, EKG was obtained and showed A-fib. This appears to be new onset A-fib, rate is controlled at 60. Cardiology consulted for further recommendations. Patient on 1 L nasal cannula, patient wears O2 at nighttime. Plans to wean oxygen today. PT/OT recommended placement, patient is agreeable. Medical Exam Vital signs and Labs for Last 24 Hours: Vital Signs Temp Pulse Pulse Resp BP BP Pulse Ox 10/16/24 09:05 10/16/24 08:05 10/16/24 08:00 60 10/16/24 07:45 98.2 F 77 18 132/73 97 10/16/24 07:00 10/16/24 05:00 10/16/24 04:00 65 10/16/24 04:00 98.2 F 67 18 120/53 L 96 10/16/24 03:00 10/16/24 01:00 10/16/24 00:00 98.2 F 70 17 102/47 L 96 10/15/24 23:00 10/15/24 21:00 10/15/24 20:00 97.9 F 77 17 112/59 L 96 10/15/24 20:00 10/15/24 19:00 10/15/24 17:00 10/15/24 16:00 98.5 F 81 17 112/54 L 93 L 10/15/24 15:00 10/15/24 14:10 100.6 F H 65 17 108/55 L 10/15/24 13:34 10/15/24 13:12 98.8 F 79 15 108/55 L 96 10/15/24 11:58 93 L 10/15/24 11:53 103.2 F H 90 26 H 130/61 93 L O2 Del Method O2 Flow Rate 10/16/24 09:05 Nasal Cannula 1 10/16/24 08:05 Nasal Cannula 1.5 10/16/24 08:00 10/16/24 07:45 Nasal Cannula 2 10/16/24 07:00 Nasal Cannula 2 10/16/24 05:00 Nasal Cannula 2 10/16/24 04:00 10/16/24 04:00 Nasal Cannula 2 10/16/24 03:00 Nasal Cannula 2 10/16/24 01:00 Nasal Cannula 2 10/16/24 00:00 Nasal Cannula 2 10/15/24 23:00 Nasal Cannula 2 10/15/24 21:00 Nasal Cannula 2 10/15/24 20:00 Nasal Cannula 2 10/15/24 20:00 Nasal Cannula 2 10/15/24 19:00 Room Air 10/15/24 17:00 Room Air 10/15/24 16:00 Room Air 10/15/24 15:00 Room Air 10/15/24 14:10 Nasal Cannula 2 10/15/24 13:34 Room Air 10/15/24 13:12 Nasal Cannula 2 10/15/24 11:58 Nasal Cannula 2 10/15/24 11:53 Nasal Cannula 2 Intake and Output 10/15/24 10/16/24 10/16/24 23:59 07:59 15:59 Intake Total 2555 / 3230 450 / 910 460 / 910 Output Total 300 / 300 500 / 900 400 / 900 Balance 2255 / 2930 -50 / 10 60 / 10 Intake: Intake, Oral Amount 460 / 460 Intake, Total IV Amount 2555 / 2880 100 / 100 Cefepime HCl 2 gm In 0.9 % 100 / 100 Sodium Chloride 100 ml @ 200 mls/hr IV Q12H [facility] Rx#:[id number] Lactated Ringers 1000ML 2,330 2205 / 2330 ml @ 1165 mls/hr IV .Q2H [facility] Rx #:[id number] Magnesium Sulfate in Water 2 gm 100 / 100 In 50 ml @ 50 mls/hr IV Q1H [facility] Rx#:[id number] Vancomycin HCl 2,000 mg In 0.9 250 / 250 % Sodium Chloride 250 ml @ 125 mls/hr IV ONCE [facility] Rx#:[id number] Infusion Intake 350 / 350 Cefepime HCl 2 gm In 0.9 % 100 / 100 Sodium Chloride 100 ml @ 200 mls/hr IV Q8H [facility] Rx#:[id number] Vancomycin HCl 2,000 mg In 0.9 250 / 250 % Sodium Chloride 250 ml @ 125 mls/hr IV ONCE ONE Rx#:[id number] Output: Output, Urine Amount 300 / 300 500 / 900 400 / 900 Other: Intake, Other Source Saline Solution Number of Unmeasured Voids 0 Number of Bowel Movements 1 Weight 119.295 kg 119.295 kg Patient Weight 10/16/24 23:59 Weight 119.295 kg Laboratory Results - last 24 hr 10/15/24 11:49: WBC 15.7 H, RBC 3.47 L, Hgb 11.6 L, Hct 35.5 L, MCV 102.3 H, MCH 33.4 H, MCHC 32.7, RDW 14.1, Plt Count 188, MPV 10.6 H, Neut % (Auto) 76.6, Lymph % (Auto) 11.6, [place] % (Auto) 10.9 H, Eos % (Auto) 0.3, Baso % (Auto) 0.2, Neut # (Auto) 12.0 H, Lymph # (Auto) 1.8, [place] # (Auto) 1.7 H, Eos # (Auto) 0.1, Baso # (Auto) 0.0, Total Counted 100, Neutrophils % (Manual) 73, Lymphocytes % (Manual) 24, Monocytes % (Manual) 3, Platelet Estimate Normal, Macrocytosis 1+, Sodium 137, Potassium 3.3 L, Chloride 89 L, Carbon Dioxide 38 H, Anion Gap 13.3, BUN 35 H, Creatinine 2.00 H, Estimated Creat Clear 45, Estimated GFR 32 L, Est GFR ( Amer) 39 L, Glucose 162 H, Calcium 8.9, Total Bilirubin 0.7, AST 29, ALT 17, Alkaline Phosphatase 110, Troponin I 0.04 H, NT-Pro-B Natriuret Pep 598 H, Total Protein 7.2, Albumin 4.1, Globulin 3.1, Albumin/Globulin Ratio 1.3 10/15/24 12:03: SARS-CoV-2 (PCR) Not detected, Influenza Type A (PCR) Not detected, Influenza Type B (PCR) Not detected, RSV (PCR) Not detected, Rhinovirus (PCR) Not detected 10/15/24 12:05: Lactate 2.6 H 10/15/24 12:07: VBG pH 7.45 H, VBG pCO2 56.0 H, VBG pO2 35.9, VBG HCO3 37.8 H, VBG Total CO2 39.5 H, VBG O2 Saturation 67.5, VBG Base Excess 13.7 H, VBG Lactic Acid 2.7 H 10/15/24 14:54: Urine Color Yellow, Urine Appearance Clear, Urine pH 6.0, Ur Specific [place] 1.020, Urine Protein Trace, Urine Glucose (UA) Negative, Urine Ketones Trace, Urine Blood Negative, Urine Nitrate Negative, Urine Bilirubin Negative, Urine Urobilinogen 0.2, Ur Leukocyte Esterase Negative, Urine RBC None, Urine WBC 5-10, Ur Squamous Epith Cells Occasional, Urine Bacteria 2+, Hyaline Casts 3-5, Urine Mucus 1+ 10/15/24 15:15: Troponin I 0.07 H 10/15/24 16:34: Lactate 1.1 10/15/24 18:06: Magnesium 1.7, Troponin I 0.08 H 10/15/24 21:14: POC Glucose 203 H 10/16/24 05:33: POC Glucose 166 H 10/16/24 05:35: WBC 9.7 D, RBC 2.88 L, Hgb 9.4 L D, Hct 29.7 L, MCV 103.1 H, MCH 33.0 H, MCHC 32.0, RDW 14.1, Plt Count 154, MPV 10.7 H, Neut % (Auto) 69.1, Lymph % (Auto) 19.1, [place] % (Auto) 10.0 H, Eos % (Auto) 1.0, Baso % (Auto) 0.3, Neut # (Auto) 6.7, Lymph # (Auto) 1.9, [place] # (Auto) 1.0, Eos # (Auto) 0.1, Baso # (Auto) 0.0, Sodium 137, Potassium 3.4 L, Chloride 94 L, Carbon Dioxide 37 H, Anion Gap 9.4, BUN 34 H, Creatinine 1.90 H, Estimated Creat Clear 47, Estimated GFR 34 L, Est GFR ( Amer) 41 L, Glucose 153 H, Calcium 8.5, Magnesium 3.0 H D, Total Bilirubin 0.5, AST 24, ALT 10 L D, Alkaline Phosphatase 95, Total Protein 5.8 L, Albumin 3.3 L D, Globulin 2.5, Albumin/Globulin Ratio 1.3, Triglycerides 97, Cholesterol 88 L, LDL Cholesterol Direct < 30.00 L, VLDL Cholesterol 19, HDL Cholesterol 32 L, Cholesterol/HDL Ratio 2.8 I & O for Labs for Last 24 Hours: Intake & Output 10/13/24 10/14/24 10/15/24 10/16/24 23:59 23:59 23:59 23:59 Intake Total 2880 / 3230 910 / 910 Output Total 300 / 300 900 / 900 Balance 2580 / 2930 Weight 119.295 kg 119.295 kg Constitutional: Present no acute distress and cooperative Head: Present atraumatic Eyes: Present as per HPI ENT: Present normal exam Neck: Present normal inspection; Absent lymphadenopathy Respiratory: Present CTA bilaterally, able to speak in complete sentences and symmetric chest movement; Absent wheezes or crackles Cardiac: Present Regular Rate; Absent No Murmur Comment:: Regular rhythm, A-fib GI: Present soft and normal bowel sounds; Absent distention or tenderness Rectal (male): Present deferred (male): Present deferred Extremities: Present normal inspection and edema (1+ bilateral ankle/feet); Absent tenderness Skin: Present intact and dry; Absent erythema or rash Neuro: Present alert, awake, oriented x 3 and moves all extremities Assessment and Plan *Assessment and plan (1) Sepsis: Status: Acute Qualifiers: Acute respiratory failure type: with hypoxia Sepsis acute organ dysfunction status: with acute organ dysfunction Sepsis type: sepsis due to unspecified organism Severe sepsis acute organ dysfunction type: acute respiratory failure Severe sepsis shock status: without septic shock Qualified Code(s): A41.9 - Sepsis, unspecified organism; R65.20 - Severe sepsis without septic shock; J96.01 - Acute respiratory failure with hypoxia Category: Medical Code(s): A41.9 - Sepsis, unspecified organism (2) Leukocytosis: Status: Acute Category: Medical Code(s): D72.829 - Elevated white blood cell count, unspecified (3) Generalized weakness: Status: Acute Category: Medical Code(s): R53.1 - Weakness (4) Hypertension: Status: Chronic Qualifiers: Hypertension type: primary hypertension Qualified Code(s): I10 - Essential (primary) hypertension Category: Medical Code(s): I10 - Essential (primary) hypertension (5) Acute on chronic heart failure with preserved ejection fraction (HFpEF): Problem Comment: This is now compensated Status: Acute Category: Medical Code(s): I50.33 - Acute on chronic diastolic (congestive) heart failure (6) Chronic kidney disease, stage III (moderate): Status: Acute Qualifiers: Chronic kidney disease stage 3 subtype: unspecified whether 3a or 3b Qualified Code(s): N18.30 - Chronic kidney disease, stage 3 unspecified Category: Medical Code(s): N18.30 - Chronic kidney disease, stage 3 unspecified (7) Dyspnea: Status: Acute Qualifiers: Dyspnea type: dyspnea on exertion Qualified Code(s): R06.09 - Other forms of dyspnea Category: Medical Code(s): R06.00 - Dyspnea, unspecified (8) Obesity (BMI 30-39.9): Status: Chronic Category: Medical Code(s): E66.9 - Obesity, unspecified (9) Type 2 diabetes mellitus with diabetic polyneuropathy, with long-term current use of insulin: Status: Chronic Category: Medical Code(s): E11.42 - Type 2 diabetes mellitus with diabetic polyneuropathy; Z79.4 - penitentiary (current) use of insulin Plan Mr. Palmer is a 84-year-old male who presented to the emergency department with hypoxia, O2 saturation 83% on room air and generalized weakness. He has a primary medical history of type 2 diabetes, hypertension, hyperlipidemia, CAD, prostate cancer, HFpEF, obesity. He was recently discharged from the hospital at the end of August for a HFpEF exacerbation. He presented with hypoxia to the emergency department and was placed on 2 L nasal cannula which brought his oxygen saturation up to 93%. Son is at bedside and helps to provide history, states that he has not felt well over the last 24 hours and has had chills and fever. Temperature in the ED was 103 lab work was obtained and was notable for leukocytosis of 15 and lactic of 2.7. Viral swabs were negative. Blood cultures were obtained and are pending. Patient did not receive sepsis bolus in the ED due to sensitivity to fluids and HFpEF, received 125 mL was treated with broad-spectrum antibiotics including vancomycin, Flagyl, cefepime. The patient did remain hemodynamically stable in the emergency department, normotensive, heart rate below 90, oxygen saturation above 90% on room air. Patient did receive 1 g Tylenol IV in the ED as well, temperature stabilized at 98.5. Patient does have history of urinary tract infections, urinalysis was obtained and appears negative but was obtained after empiric antibiotics were started. The ED provider contacted hospital medicine for admission, and I was agreeable to admit for further care and monitoring. Plan of care as follows: #Sepsis #Leukocytosis #Weakness ?Patient continues to feel weak, able to ambulate with 1 times assist to the bathroom. PT/OT recommend SNF at discharge due to profound weakness below patient baseline. ?Patient has remained afebrile, normotensive, nontachycardic since admission. Blood culture currently show no growth after 24 hours, patient receiving empiric antibiotics vancomycin and cefepime. ?Consulted with care management/social work for placement for patient at discharge. They are currently working on options for discharge. ?Patient WBC has normalized at 9.7. Sodium 137, potassium 3.4, repleted. Hemoglobin stable at 9.4. ?Ordered CBC, CMP, mag for the a.m. will continue to trend. #NSTEMI #New onset A-fib ?Patient had episode overnight where he began to have sharp pain in his left side of his chest, EKG was obtained and patient appeared to be in rate controlled A-fib. Patient was placed on continuous telemetry at that time. It continues to read atrial fibrillation. ?Troponin on admission 0.04 bumped to 0.08. Patient currently denies any chest pain. ?Patient does state that he has a history of taking a beta-christopher but he did not tolerate them, made him feel lethargic and tired. Will initiate diltiazem p.o., further recommendations pending from cardiology. #Hypoxia ?Chest x-ray in the ED nonconcerning for pneumonia, emphysema changes noted. Since admission patient has been stable on room air, greater than 90% O2 saturation. ?Supplemental O2 as needed for oxygen saturation less than 90%. DuoNebs every 6 hours as needed. #CKD stage III ?Patient has known kidney dysfunction, baseline creatinine 2.00? Kidney function slightly improved creatinine 1.9. #Type 2 diabetes ?ACHS fingersticks, sliding scale insulin ordered. ?A1c 09/21 was 6.7%. #HFpEF ?proBNP 598, appears to be close to patient baseline. Patient's lungs CTA. Patient does not appear to be hypervolemic. ?Will continue Lasix 40 mg twice daily. #Chronic home meds: ?Allopurinol 100 mg twice daily, aspirin 81 mg daily, Plavix 75 mg daily, famotidine 20 mg daily, gabapentin 300 mg 3 times daily, hydralazine 20 mg twice daily, simvastatin 40 mg, tamsulosin 0.4 mg at bedtime. ?Holding hydralazine 20 mg twice daily due to hypotension. Full code Ambulate as tolerated Diabetic diet Lovenox?VTE
--- NOTE | 2024-10-16 12:55 | PC.NURSE ---
fsbs 220, dexcom 215. 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
--- NOTE | 2024-10-16 13:24 | P.CONCA_ITS ---
History of Present Illness History of Present Illness Consult date: 10/16/24 Requesting physician: Lloyd Guthrie Consult reason: shortness of breath Chief complaint: SOB History of present illness: This is an 84-year-old gentleman who presented to the emergency department with hypoxia and shortness of breath. The patient was recently discharged from the hospital in August due to an exacerbation of HFpEF. He Grace presented to the emergency department yesterday with hypoxemia. The patient's son had went to his house to get him for a doctor's appointment and he found his father lying in bed and gasping for air and visibly short of breath. His son checked his oxygen saturations and he was in the 70s so he was brought into the emergency department. The patient also had a fever of 103 ?F with a leukocytosis and an elevated lactic acid. He is currently being treated for sepsis. The patient was also found to be in atrial fibrillation. He is currently rate controlled. This morning he denies any chest pain or pressure. He did have an elevated troponin on admission. He denies any shortness of breath or edema. He denies any fever, chills, nausea, vomiting, diarrhea, PND orthopnea. The patient states that he was just very weak yesterday and did not feel well. He states he felt he was shaking like a leaf and was having chills but his chills have resolved today. [facility] Disclaimer: The information contained in this section may have been updated after the patient was seen, as this information can be updated by other users. Medical History (Updated 10/16/24 @ 13:29 by Makenzie Bojorquez APRN) Atrial fibrillation Sepsis Diabetic ulcer of left great toe GERD (gastroesophageal reflux disease) Bruise of toe Hypertension Ingrown nail of great toe of left foot Postoperative dehiscence of skin wound Blister of fifth toe, left Encounter for dialysis Tear of retina History of COVID-19 History of cataract Edema Osteomyelitis of toe of left foot Other specified symptoms and signs involving the circulatory and respiratory systems Cellulitis of left foot Renal disease HTN (hypertension), benign HLD (hyperlipidemia) T2DM (type 2 diabetes mellitus) Coronary artery disease Anxiety Pain around toenail Onychomycosis Surgical History Hx of cataract surgery Hx of colonoscopy History of surgery History of coronary artery stent placement Hx of cardiac cath Family History Other Diabetes Heart attack Social History Smoking Status: Unknown if ever smoked alcohol intake: never substance use type: denies use current occupational status: retired Travel in the last 8 weeks?: None Have you lived/traveled outside [place] in past 30 days?: No Contact w/someone who lives/traveled outside US past 30 days?: No Exposure to someone with infectious disease in past 14 days?: No Do you have a fever (greater than 100.4 F or 38 C)?: No Have you tested positive for COVID-19?: No Exposed to someone with COVID-19 in past 14 days?: No Do you have a sore throat?: No Do you have a cough?: No Do you have any weakness?: No Do you have any diarrhea?: No Are you experiencing any unusual bleeding?: No Do you have any muscle aches/pain?: No Do you have any abdominal pain?: No Are you experiencing loss of taste or smell?: No Review of Systems Review of Systems Review of systems:: pertinent systems reviewed and negative unless documented below Constitutional Constitutional: Reports chills, Reports fatigue, Denies headache(s) and Reports weakness Eyes Eyes: Reports system reviewed and no additional complaints, except as documented ENT Ears, Nose, Mouth, and Throat: Reports system reviewed and no additional complaints, except as documented and Denies headache(s) *Cardiovascular Cardiovascular: Reports system reviewed and no additional complaints, except as documented, Denies chest pain, Reports dyspnea and Reports dyspnea on exertion *Respiratory Respiratory: Reports system reviewed and no additional complaints, except as documented, Reports dyspnea and Reports dyspnea on exertion *Gastrointestinal Gastrointestinal: Reports system reviewed and no additional complaints, except as documented *Genitourinary Genitourinary: Reports system reviewed and no additional complaints, except as documented *Musculoskeletal Musculoskeletal: Reports system reviewed and no additional complaints, except as documented Integumentary/Breasts Skin/Breast: Reports system reviewed and no additional complaints, except as documented *Neurologic Neurologic: Reports system reviewed and no additional complaints, except as documented, Denies headache(s) and Reports weakness Psychiatric Psychiatric: Reports system reviewed and no additional complaints, except as documented Endocrine Endocrine: Reports system reviewed and no additional complaints, except as documented and Reports fatigue Hematologic/Lymphatic Hematologic/Lymphatic: Reports system reviewed and no additional complaints, except as documented Allergic/Immunologic Allergic/Immunologic: Reports system reviewed and no additional complaints, except as documented Exam Data for Last 24 hours Vital signs and Labs for Last 24 Hours: Temp Pulse Resp BP Pulse Ox O2 Del Method O2 Flow Rate 99.5 F 80 18 122/63 95 Nasal Cannula 1.5 10/16/24 11:40 10/16/24 11:40 10/16/24 11:40 10/16/24 11:40 10/16/24 11:40 10/16/24 12:53 10/16/24 12:53 Laboratory Results - last 24 hr 10/15/24 12:03: SARS-CoV-2 (PCR) Not detected, Influenza Type A (PCR) Not detected, Influenza Type B (PCR) Not detected, RSV (PCR) Not detected, Rhinovirus (PCR) Not detected 10/15/24 14:54: Urine Color Yellow, Urine Appearance Clear, Urine pH 6.0, Ur Specific [place] 1.020, Urine Protein Trace, Urine Glucose (UA) Negative, Urine Ketones Trace, Urine Blood Negative, Urine Nitrate Negative, Urine Bilirubin Negative, Urine Urobilinogen 0.2, Ur Leukocyte Esterase Negative, Urine RBC None, Urine WBC 5-10, Ur Squamous Epith Cells Occasional, Urine Bacteria 2+, Hyaline Casts 3-5, Urine Mucus 1+ 10/15/24 15:15: Troponin I 0.07 H 10/15/24 16:34: Lactate 1.1 10/15/24 18:06: Magnesium 1.7, Troponin I 0.08 H 10/15/24 21:14: POC Glucose 203 H 10/16/24 05:33: POC Glucose 166 H 10/16/24 05:35: WBC 9.7 D, RBC 2.88 L, Hgb 9.4 L D, Hct 29.7 L, MCV 103.1 H, MCH 33.0 H, MCHC 32.0, RDW 14.1, Plt Count 154, MPV 10.7 H, Neut % (Auto) 69.1, Lymph % (Auto) 19.1, [place] % (Auto) 10.0 H, Eos % (Auto) 1.0, Baso % (Auto) 0.3, Neut # (Auto) 6.7, Lymph # (Auto) 1.9, [place] # (Auto) 1.0, Eos # (Auto) 0.1, Baso # (Auto) 0.0, Sodium 137, Potassium 3.4 L, Chloride 94 L, Carbon Dioxide 37 H, Anion Gap 9.4, BUN 34 H, Creatinine 1.90 H, Estimated Creat Clear 47, Estimated GFR 34 L, Est GFR ( Amer) 41 L, Glucose 153 H, Calcium 8.5, Magnesium 3.0 H D, Total Bilirubin 0.5, AST 24, ALT 10 L D, Alkaline Phosphatase 95, Total Protein 5.8 L, Albumin 3.3 L D, Globulin 2.5, Albumin/Globulin Ratio 1.3, Triglycerides 97, Cholesterol 88 L, LDL Cholesterol Direct < 30.00 L, VLDL Cholesterol 19, HDL Cholesterol 32 L, Cholesterol/HDL Ratio 2.8 I & O for Last 24 hours: Intake & Output 10/13/24 10/14/24 10/15/24 10/16/24 23:59 23:59 23:59 23:59 Intake Total 2880 / 3230 1010 / 1010 Output Total 300 / 300 1200 / 1200 Balance 2580 / 2930 -190 / -190 Weight 263 lb 263 lb Microbiology Reports for the Last 24 Hours: Microbiology 10/15/24 12:20 Blood Blood Culture - Preliminary NO GROWTH AFTER 24 HOURS 10/15/24 12:07 Blood Blood Culture - Preliminary NO GROWTH AFTER 24 HOURS Constitutional Constitutional: no acute distress and average body habitus *Routine HEENT Exam Head: Present normocephalic and atraumatic ENT: Present mucous membranes moist *Routine Neck Exam Neck: Present supple, full ROM and normal carotid upstroke; Absent JVD, carotid bruit or lymphadenopathy *Routine Respiratory Exam Respiratory: Present CTA bilaterally, normal respiratory effort, able to speak in complete sentences and symmetric chest movement *Routine Cardiovascular Exam Cardiovascular: Present Normal S1, Normal S2 and irregularly irregular; Absent murmur or gallop *Routine Abdominal Exam Abdominal: Present soft and normoactive bowel sounds; Absent tenderness, distended or organomegaly *Routine Extremities Exam Extremities: Present full ROM, pulses intact and normal capillary refill; Absent cyanosis, clubbing or edema *Routine Skin Exam Skin: Present intact and warm; Absent erythema *Routine Neurological Exam Neurological: Present alert, oriented X3 and CN II-XII intact; Absent sensory deficit or motor deficit Routine Psychiatric Exam Psychiatric: Present normal affect Meds Home Medications and Allergies Home Medications ?Medication ?Instructions ?Recorded ?Confirmed ?Type aspirin 81 mg tablet,delayed 81 mg PO DAILY 10/19/18 0 10/15/24 History release (Adult Low Dose Aspirin) simvastatin 40 mg tablet 40 mg PO HS #90 tabs 5 10/15/24 Rx calcitriol 0.25 mcg capsule 0.25 mcg PO MOWEFR #36 cap s 05/04/24 10/15/24 Rx tamsulosin 0.4 mg capsule 0.4 mg PO HS #90 caps 10/15/24 Rx clopidogrel 75 mg tablet 75 mg PO DAILY #90 tabs 11/2210/15/24 Rx gabapentin 300 mg capsule 300 mg PO TID #270 caps 11/2210/15/24 Rx allopurinol 100 mg tablet 100 mg PO BID #180 tabs 11/2210/15/24 Rx pantoprazole 40 mg tablet,delayed 40 mg PO DAILY 09/2310/15/24 History release cholecalciferol (vitamin D3) 50 50 mcg PO DAILY 10/15/24 History mcg (2,000 unit) capsule (Vitamin D3) coenzyme Q10 100 mg capsule 100 mg PO DAILY 09/26/24 0 10/15/24 History (CoQ-10) mecobalamin (vitamin B12) 1,000 1,000 mcg PO DAILY 10/15/24 History mcg chewable tablet (B12 Active) prednisone 5 mg tablet 5 mg PO DAILY #30 tabs 09/2610/15/24 Rx hydralazine 10 mg tablet 20 mg (2 x 10 mg) PO BID #18 0 tabs 10/03/24 10/15/24 Rx famotidine 20 mg tablet 20 mg PO DAILY 10/08/2409/28 History furosemide 40 mg tablet 40 mg PO BIDP PRN Edema 09/2810/15/24 History insulin human U-100 NPH-regulr 20 unit SQ HS 10/15/24 10/15/24 History 70-30 mix 100 unit/mL subcutaneous susp (Novolin 70/30 U-100 Insulin) insulin human U-100 NPH-regulr 35 unit SQ AM 10/15/24 10/15/24 History 70-30 mix 100 unit/mL subcutaneous susp (Novolin 70/30 U-100 Insulin) New Prescriptions to Start Prescriptions: Allergies Allergy/AdvReac Type Severity Reaction Status Date / Time No Known Allergies Allergy Verified 10/10/24 10:43 Assessment and Plan *Assessment and plan (1) Atrial fibrillation: Status: Acute Qualifiers: Atrial fibrillation type: persistent (not longstanding) Qualified Code(s): I48.19 - Other persistent atrial fibrillation Category: Medical Code(s): I48.91 - Unspecified atrial fibrillation (2) Elevated troponin: Status: Acute Category: Medical Code(s): R79.89 - Other specified abnormal findings of blood chemistry (3) Sepsis: Status: Acute Qualifiers: Acute respiratory failure type: with hypoxia Sepsis acute organ dysfunction status: with acute organ dysfunction Sepsis type: sepsis due to unspecified organism Severe sepsis acute organ dysfunction type: acute respiratory failure Severe sepsis shock status: without septic shock Qualified Code(s): A41.9 - Sepsis, unspecified organism; R65.20 - Severe sepsis without septic shock; J96.01 - Acute respiratory failure with hypoxia Category: Medical Code(s): A41.9 - Sepsis, unspecified organism (4) Generalized weakness: Status: Acute Category: Medical Code(s): R53.1 - Weakness (5) Leukocytosis: Status: Acute Qualifiers: Leukocytosis type: unspecified Qualified Code(s): D72.829 - Elevated white blood cell count, unspecified Category: Medical Code(s): D72.829 - Elevated white blood cell count, unspecified (6) Acute hypoxemic respiratory failure: Status: Acute Category: Medical Code(s): J96.01 - Acute respiratory failure with hypoxia (7) Dyspnea: Status: Acute Qualifiers: Dyspnea type: dyspnea on exertion Qualified Code(s): R06.09 - Other forms of dyspnea Category: Medical Code(s): R06.00 - Dyspnea, unspecified (8) Chronic kidney disease, stage III (moderate): Status: Acute Qualifiers: Chronic kidney disease stage 3 subtype: unspecified whether 3a or 3b Qualified Code(s): N18.30 - Chronic kidney disease, stage 3 unspecified Category: Medical Code(s): N18.30 - Chronic kidney disease, stage 3 unspecified (9) CAD (coronary artery disease): Status: Chronic Qualifiers: Associated angina: without angina Coronary Disease-Associated Artery/Lesion type: [place] artery [place] vs. transplanted heart: [place] heart Qualified Code(s): I25.10 - Atherosclerotic heart disease of [place] coronary artery without angina pectoris Category: Medical Code(s): I25.10 - Atherosclerotic heart disease of [place] coronary artery without angina pectoris (10) Acute on chronic heart failure with preserved ejection fraction (HFpEF): Problem Comment: This is now compensated Status: Acute Category: Medical Code(s): I50.33 - Acute on chronic diastolic (congestive) heart failure (11) Hypertension: Status: Chronic Qualifiers: Hypertension type: primary hypertension Qualified Code(s): I10 - Essential (primary) hypertension Category: Medical Code(s): I10 - Essential (primary) hypertension (12) HLD (hyperlipidemia): Status: Chronic Qualifiers: Hyperlipidemia type: mixed hyperlipidemia Qualified Code(s): E78.2 - Mixed hyperlipidemia Category: Medical Code(s): E78.5 - Hyperlipidemia, unspecified (13) Diabetes mellitus: Status: Acute Qualifiers: Diabetes mellitus complication detail: with polyneuropathy Diabetes mellitus complication status: with neurologic complications Diabetes mellitus [employer] or [employer] principal insulin use: with half-way use Diabetes mellitus type: type 2 Qualified Code(s): E11.42 - Type 2 diabetes mellitus with diabetic polyneuropathy; Z79.4 - halfway (current) use of insulin Category: Medical Code(s): E11.9 - Type 2 diabetes mellitus without complications Plan Plan: 1. The patient was admitted to the hospital with an elevated white count and elevated lactic acid. He did have a fever on admission and chills. The patient is being treated with antibiotics. Will defer to the hospitalist. 2. The patient did have an elevated troponin consistent with a non-STEMI. I have discussed with the patient about an ischemic evaluation with left cardiac catheterization once he is improved from his sepsis. The patient declines. He states that he is 84 years old and he does not want any procedures done at this time. He would prefer medical management. He is primary braider setter is Dr. Jackson who he will follow-up with once he is discharged from the hospital for 3. Stop aspirin due to his age and being started on Eliquis. 4. His LDL goal is less than 55. Start him on Lipitor 40 mg p.o. nightly. Will get a liver and lipid panel in the morning. 5. The patient was found to be in atrial fibrillation. He is currently rate controlled. Will start him on Toprol-XL 25 mg daily. Want to try him on a beta-christopher again for suppression of his atrial fibrillation and for his non- STEMI. 6. The patient will need long-term anticoagulation secondary to the atrial fibrillation. Recommend Eliquis 2.5 mg p.o. twice daily for long-term anticoag ulation. 7. The patient does have chronic kidney disease. His creatinine is 1.9 and stable. 8. The patient needs aggressive control of his diabetes. Will defer management of this to the primary care team. 9. His blood pressure is well-controlled. 10. Further recommendations will be made pending the patient's response to treatment. Thank you for the opportunity to participate in the care of this patient. All recommendations and orders are per Dr. Johns.
[2024-10-16 16:09] LABS: POC Glucose,Bedside 220 (70-110)
[2024-10-16] MEDS: METOPROLOL SUCCINATE XL 25MG TABLET 25 MG PO (16:51)
[2024-10-16] MEDS: APIXABAN 5MG TABLET 2.5 MG PO (21:22)
[2024-10-16] MEDS: TAMSULOSIN 0.4MG CAPSULE 0.4 MG PO (21:22)
[2024-10-16] MEDS: PANTOPRAZOLE 40MG TABLET 40 MG PO (21:22)
[2024-10-16] MEDS: PRAVASTATIN 40MG TAB 80 MG PO (21:43)
[2024-10-17] VITALS (8 sets, daily range): BP systolic 107–127; BP diastolic 54–68; PULSE 63–80; RESP 16–18; TEMP 36.7–37.3; O2SAT 95–97; BMI 35.9
[2024-10-17] MEDS: CEFEPIME HCL 2 GM in 0.9 % SODIUM CHLORIDE 100 ML IV ×2 (00:15→11:33)
--- NOTE | 2024-10-17 06:14 | PC.NURSE ---
Pt is alert and orientated x 4. He has rested most of the night. no c/o of pain or discomfort. VERA MCGEE RN
[2024-10-17 06:29] LABS: Hematocrit 29.3 % (42.0-52.0); Hemoglobin 9.1 g/dL (14.1-18.0); Immature Granulocytes % 0.4 %; Mean Corpuscular HGB Conc 31.1 g/dL (31.8-35.4); Mean Corpuscular Hemoglobin 32.3 pg (27.0-31.2); Mean Corpuscular Volume 103.9 fl (80-94); Nucleated Red Blood Cells % 0 %; Platelet Count 156 K/mm3 (142-424); Red Blood Count 2.82 M/mm3 (4.60-6.20); Red Cell Distribution Width-SD 54.1 fL; White Blood Count 8.5 K/mm3 (4.8-10.8)
[2024-10-17 06:43] LABS: Chloride 99 mmol/L (98-107)
[2024-10-17 06:44] LABS: Albumin Level 3.4 g/dl (3.5-5.0); Potassium 4.2 mmoL/L (3.5-5.1); Sodium 138 mmol/L (136-145)
[2024-10-17 06:47] LABS: Alanine Aminotransferase 12 U/L (12-78); Albumin/Globulin Ratio 1.4 (1.1-1.8); Alkaline Phosphatase 104 U/L (38-126); Anion Gap 9.2 mEq/L (5-15); Aspartate Amino Transferase 28 U/L (17-59); Bilirubin,Total 0.4 mg/dl (0.2-1.3); Blood Urea Nitrogen 28 mg/dl (9-20); Calcium 8.5 mg/dl (8.4-10.2); Carbon Dioxide 34 mmol/L (22.0-30.0); Creatinine Clearance Estimated 50 mL/min (50-200); Creatinine,Serum 1.80 mg/dl (0.66-1.25); Estimated Glomerular Filt Rate 36 ml/min (>60); GFR (African American) 44 ML/MIN (>60); Globulin 2.5 g/dL (1.3-3.2); Glucose 183 mg/dl (74-100); Magnesium 2.4 mg/dl (1.6-2.3); Total Protein,Serum 5.9 g/dl (6.3-8.2)
[2024-10-17] MEDS: humaLOG 100 UNITS/ML 10ML VIAL (SSI) SUBCUT ×4 (06:57→20:47)
[2024-10-17] MEDS: VANCOMYCIN HCL 2,250 MG in 0.9 % SODIUM CHLORIDE 250 ML 125 MG IV (07:35)
--- NOTE | 2024-10-17 08:32 | P.PN_ITS ---
<Statement entered by Lloyd Guthrie MD - 10/17/24 14:38> Rounded on patient after nurse practitioner. Personally examined and interviewed patient. Agree with exam findings and care plan as documented. Subjective *Date: 10/17/24 *Time: 13:21 Interval history: Patient is sitting up in bed, eating lunch. He states that he did have some intermittent pain throughout the evening. Left flank, hip, groin pain. He states just hard for him to get comfortable in the bed. Will order lidocaine patch today to see if that helps with his discomfort. CT scan unremarkable. Patient continuing to receive vancomycin and cefepime during admission. Blood cultures so far show no growth, sputum culture pending. Medical Exam Vital signs and Labs for Last 24 Hours: Vital Signs Temp Pulse Pulse Resp BP Pulse Ox O2 Del Method 10/17/24 08:00 Nasal Cannula 10/17/24 07:57 98.5 F 80 18 125/54 L 95 Nasal Cannula 10/17/24 06:16 Nasal Cannula 10/17/24 05:00 Nasal Cannula 10/17/24 04:00 98.6 F 69 17 107/58 L 96 Nasal Cannula 10/17/24 04:00 70 10/17/24 03:00 Nasal Cannula 10/17/24 01:00 Nasal Cannula 10/17/24 00:00 70 10/17/24 00:00 99.1 F 63 16 108/54 L 96 Nasal Cannula 10/16/24 23:00 Nasal Cannula 10/16/24 21:00 Nasal Cannula 10/16/24 20:00 Nasal Cannula 10/16/24 20:00 80 10/16/24 20:00 98.9 F 70 16 122/56 L 95 Nasal Cannula 10/16/24 18:39 Room Air 10/16/24 17:05 Room Air 10/16/24 16:00 98.4 F 10/16/24 16:00 70 10/16/24 16:00 78 22 143/73 H 91 L Room Air 10/16/24 15:00 Nasal Cannula 10/16/24 12:53 Nasal Cannula 10/16/24 12:00 80 10/16/24 11:40 99.5 F 80 18 122/63 95 Nasal Cannula 10/16/24 11:00 Nasal Cannula 10/16/24 09:05 Nasal Cannula O2 Flow Rate 10/17/24 08:00 2 10/17/24 07:57 2 10/17/24 06:16 2 10/17/24 05:00 2 10/17/24 04:00 10/17/24 04:00 10/17/24 03:00 2 10/17/24 01:00 2 10/17/24 00:00 10/17/24 00:00 10/16/24 23:00 2 10/16/24 21:00 10/16/24 20:00 2 10/16/24 20:00 10/16/24 20:00 1.5 10/16/24 18:39 10/16/24 17:05 10/16/24 16:00 10/16/24 16:00 10/16/24 16:00 10/16/24 15:00 1.5 10/16/24 12:53 1.5 10/16/24 12:00 10/16/24 11:40 2 10/16/24 11:00 1.5 10/16/24 09:05 1 Intake and Output 10/16/24 10/17/24 10/17/24 23:59 07:59 15:59 Intake Total 270 / 1640 Output Total 650 / 650 Balance 270 / 140 -650 / -650 Intake: Intake, Oral Amount 270 / 1090 Output: Output, Urine Amount 650 / 650 Other: Number of Unmeasured Voids 0 Weight 120.157 kg Patient Weight 10/17/24 23:59 Weight 120.157 kg Laboratory Results - last 24 hr 10/16/24 11:44: POC Glucose 220 H 10/17/24 05:44: WBC 8.5, RBC 2.82 L, Hgb 9.1 L, Hct 29.3 L, MCV 103.9 H, MCH 32.3 H, MCHC 31.1 L, RDW 14.1, Plt Count 156, MPV 10.5 H, Neut % (Auto) 65.8, Lymph % (Auto) 20.4, [place] % (Auto) 11.5 H, Eos % (Auto) 1.7, Baso % (Auto) 0.2, Neut # (Auto) 5.6, Lymph # (Auto) 1.7, [place] # (Auto) 1.0, Eos # (Auto) 0.1, Baso # (Auto) 0.0, Sodium 138, Potassium 4.2 D, Chloride 99, Carbon Dioxide 34 H, Anion Gap 9.2, BUN 28 H, Creatinine 1.80 H, Estimated Creat Clear 50, Estimated GFR 36 L, Est GFR ( Amer) 44 L, Glucose 183 H, Calcium 8.5, Magnesium 2.4 H D, Total Bilirubin 0.4, AST 28, ALT 12, Alkaline Phosphatase 104, Total Protein 5.9 L, Albumin 3.4 L, Globulin 2.5, Albumin/Globulin Ratio 1.4 I & O for Labs for Last 24 Hours: Intake & Output 10/14/24 10/15/24 10/16/24 10/17/24 23:59 23:59 23:59 23:59 Intake Total 2880 / 3230 1640 / 1640 Output Total 300 / 300 1500 / 1500 650 / 650 Balance 2580 / 2930 140 / 140 -650 / -650 Weight 119.295 kg 119.295 kg 120.157 kg Microbiology Reports for the Last 24 Hours: Microbiology 10/16/24 11:30 Sputum - Expectorated Sputum Gram Stain - Final 10/15/24 12:20 Blood Blood Culture - Preliminary NO GROWTH AFTER 24 HOURS 10/15/24 12:07 Blood Blood Culture - Preliminary NO GROWTH AFTER 24 HOURS Constitutional: Present no acute distress and cooperative Head: Present atraumatic Eyes: Present as per HPI ENT: Present normal exam Neck: Present normal inspection; Absent lymphadenopathy Respiratory: Present CTA bilaterally, able to speak in complete sentences and symmetric chest movement; Absent wheezes or crackles Cardiac: Present Regular Rate; Absent No Murmur Comment:: Irregular rhythm, A-fib GI: Present soft and normal bowel sounds; Absent distention or tenderness Rectal (male): Present deferred (male): Present deferred Extremities: Present normal inspection and edema (1+ bilateral ankle/feet); Absent tenderness Skin: Present intact and dry; Absent erythema or rash Neuro: Present alert, awake, oriented x 3 and moves all extremities Assessment and Plan *Assessment and plan (1) Sepsis: Status: Acute Qualifiers: Acute respiratory failure type: with hypoxia Sepsis acute organ dysfunction status: with acute organ dysfunction Sepsis type: sepsis due to unspecified organism Severe sepsis acute organ dysfunction type: acute respiratory failure Severe sepsis shock status: without septic shock Qualified Code(s): A41.9 - Sepsis, unspecified organism; R65.20 - Severe sepsis without septic shock; J96.01 - Acute respiratory failure with hypoxia Category: Medical Code(s): A41.9 - Sepsis, unspecified organism (2) Leukocytosis: Status: Acute Qualifiers: Leukocytosis type: unspecified Qualified Code(s): D72.829 - Elevated white blood cell count, unspecified Category: Medical Code(s): D72.829 - Elevated white blood cell count, unspecified (3) Generalized weakness: Status: Acute Category: Medical Code(s): R53.1 - Weakness (4) Hypertension: Status: Chronic Qualifiers: Hypertension type: primary hypertension Qualified Code(s): I10 - Essential (primary) hypertension Category: Medical Code(s): I10 - Essential (primary) hypertension (5) Acute on chronic heart failure with preserved ejection fraction (HFpEF): Problem Comment: This is now compensated Status: Acute Category: Medical Code(s): I50.33 - Acute on chronic diastolic (congestive) heart failure (6) Chronic kidney disease, stage III (moderate): Status: Acute Qualifiers: Chronic kidney disease stage 3 subtype: unspecified whether 3a or 3b Qualified Code(s): N18.30 - Chronic kidney disease, stage 3 unspecified Category: Medical Code(s): N18.30 - Chronic kidney disease, stage 3 unspecified (7) Dyspnea: Status: Acute Qualifiers: Dyspnea type: dyspnea on exertion Qualified Code(s): R06.09 - Other forms of dyspnea Category: Medical Code(s): R06.00 - Dyspnea, unspecified (8) Obesity (BMI 30-39.9): Status: Chronic Category: Medical Code(s): E66.9 - Obesity, unspecified (9) Type 2 diabetes mellitus with diabetic polyneuropathy, with long-term current use of insulin: Status: Chronic Category: Medical Code(s): E11.42 - Type 2 diabetes mellitus with diabetic polyneuropathy; 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 Palmer is a 84-year-old male who presented to the emergency department with hypoxia, O2 saturation 83% on room air and generalized weakness. He has a primary medical history of type 2 diabetes, hypertension, hyperlipidemia, CAD, prostate cancer, HFpEF, obesity. He was recently discharged from the hospital at the end of August for a HFpEF exacerbation. He presented with hypoxia to the emergency department and was placed on 2 L nasal cannula which brought his oxygen saturation up to 93%. Son is at bedside and helps to provide history, states that he has not felt well over the last 24 hours and has had chills and fever. Temperature in the ED was 103 lab work was obtained and was notable for leukocytosis of 15 and lactic of 2.7. Viral swabs were negative. Blood cultures were obtained and currently show no growth for 48 hours. Patient did not receive sepsis bolus in the ED due to sensitivity to fluids and HFpEF, received 125 mL was treated with broad-spectrum antibiotics including vancomycin, Flagyl, cefepime. The patient did remain hemodynamically stable in the emergency department, normotensive, heart rate below 90, oxygen saturation above 90% on room air. Patient did receive 1 g Tylenol IV in the ED as well, temperature stabilized at 98.5. Patient does have history of urinary tract infections, urinalysis was obtained and appears negative but was obtained after empiric antibiotics were started. The ED provider contacted hospital medicine for admission, and I was agreeable to admit for further care and monitoring. Plan of care as follows: #Sepsis #Leukocytosis #Weakness ? Patient continues to work with PT/OT due to generalized weakness. Patient does complain of flank/hip groin pain. He states that it is been hard for him to get comfortable. Lidocaine patch applied today. Tylenol 650 every 4 hours as needed ordered for mild to moderate pain [place] 5/325 every 6 hours ordered for moderate to severe pain. ?Patient has remained afebrile, normotensive, nontachycardic since admission. Blood culture currently show no growth after 48 hours, patient receiving empiric antibiotics vancomycin and cefepime. ?Consulted with care management/social work for placement for patient at discharge. He has been accepted to [facility] once he is medically ready. ?Patient WBC has normalized at 8.5. Sodium 138, potassium 4.2. Hemoglobin stable at 9.1. ?Ordered CBC, CMP, mag for the a.m. will continue to trend. #NSTEMI #New onset A-fib ?Patient continues to be in A-fib, rate controlled. Started on metoprolol 25 mg daily and Eliquis 2.5 mg twice daily per cardiology recommendation. ?Troponin on admission 0.04 bumped to 0.08. Patient currently denies any chest pain. #Hypoxia ?Chest x-ray in the ED nonconcerning for pneumonia, emphysema changes noted. ?DuoNebs every 6 hours as needed, Sputum culture pending. ?Room air saturation today 83%, patient continues to need 2 L nasal cannula. Maintaining oxygen saturation above 92% with 2 L nasal cannula. #CKD stage III ?Patient has known kidney dysfunction, baseline creatinine 2.00? Kidney function slightly improved creatinine 1.8. #Type 2 diabetes ?ACHS fingersticks, sliding scale insulin ordered. ?A1c 09/21 was 6.7%. ?Restarted patient's insulin lispro 20 units in the morning and at night. #HFpEF ?proBNP 598, appears to be close to patient baseline. Patient's lungs CTA. Patient does not appear to be hypervolemic. ?Will continue Lasix 40 mg twice daily. #Chronic home meds: ?Allopurinol 100 mg twice daily, aspirin 81 mg daily, Plavix 75 mg daily, famotidine 20 mg daily, gabapentin 300 mg 3 times daily, hydralazine 20 mg twice daily, simvastatin 40 mg, tamsulosin 0.4 mg at bedtime. ?Holding hydralazine 20 mg twice daily due to hypotension. Full code Ambulate as tolerated Diabetic diet Lovenox?VTE
[2024-10-17] MEDS: ALLOPURINOL 100MG TABLET 100 MG PO ×2 (08:34→20:49)
[2024-10-17] MEDS: CLOPIDOGREL 75MG TAB 75 MG PO (08:34)
[2024-10-17] MEDS: APIXABAN 5MG TABLET 2.5 MG PO ×2 (08:34→20:49)
[2024-10-17] MEDS: FAMOTIDINE 20MG TABLET 20 MG PO (08:35)
[2024-10-17] MEDS: FUROSEMIDE 40 MG TABLET PO (08:35)
[2024-10-17] MEDS: METOPROLOL SUCCINATE XL 25MG TABLET 25 MG PO (08:38)
[2024-10-17] MEDS: GABAPENTIN 300MG CAPSULE 300 MG PO ×3 (08:38→20:49)
--- NOTE | 2024-10-17 10:48 | PC.NURSE ---
Pt was 83% on RA at rest in chair.
[2024-10-17] MEDS: LIDOCAINE 5% TRANSDERMAL PATCH 1 EACH TD (11:32)
[2024-10-17] MEDS: POLYETHYLENE GLYCOL 3350 17 GM PACKET PO (11:33)
--- NOTE | 2024-10-17 16:36 | PC.NURSE ---
Pt remains on 2L O2 NC. Has ambulated to bathroom and in room. Tolerates fair. Pt continues to get exerted with ambulation. Appetite has been good. Blood glucose obtained via freestyle: 243 and 241. Pt received 5 units x2 this shift. IV ABX infused. Call light within reach.
[2024-10-17] MEDS: TAMSULOSIN 0.4MG CAPSULE 0.4 MG PO (20:47)
[2024-10-17] MEDS: humaLOG MIX 75/25 3ML FLEXPEN 20 UNIT SUBCUT (20:48)
[2024-10-17] MEDS: PANTOPRAZOLE 40MG TABLET 40 MG PO (20:49)
[2024-10-17] MEDS: PRAVASTATIN 40MG TAB 80 MG PO (20:49)
[2024-10-18] VITALS: BP 129/59; PULSE 70; RESP 16; TEMP 37.1; O2SAT 95
[2024-10-18] MEDS: CEFEPIME HCL 2 GM in 0.9 % SODIUM CHLORIDE 100 ML IV (00:19)
--- NOTE | 2024-10-18 02:55 | PC.NURSE ---
at 1230 Pt ask for me to come to his room. He was shaking all over. Said he wanted me to call his son. Pt said use my phone. Called Malvin the son. The patient proceeds to he the son that he wanted to leave the hospital and go to [facility] to a different hospital. So that they can figure out what is wrong with him. AT 0100 Wanda RAMIREZELIANA for the hospital came to speak with the pt. She spoke with him telling him he can leave the hospital tonight, but he needs to be on O2 and he does not have a tank to transport him with. At 0130 The housesupervisor came on the floor with the Malvin Palmer the son of the Pt and his brother Bruce to the floor. They wanted to know what had happened to change the patients mind about being here in the hospital. I told them his Sugar had dropped from 279 at 2100 To 177 at 0030. that is what has possibly cause him to start shaking all over. Will recheck is B/s at 3 AM. After the sons spoke with the PT. He was in agreement to stay at the hospital till 7 am for MD Neal to speak with him about what has been wrong with Pt about the infection that he has. When the sons came out of the room. They said he did not want to be transferred to [facility]. VERA MCGEE RN
[2024-10-18 04:00] VITALS: BP 123/57; PULSE 72; PULSE 76; RESP 16; TEMP 37.3; O2SAT 96; BMI 35.9
[2024-10-18 04:39] LABS: Hematocrit 28.3 % (42.0-52.0); Hemoglobin 9.3 g/dL (14.1-18.0); Immature Granulocytes % 0.4 %; Mean Corpuscular HGB Conc 32.9 g/dL (31.8-35.4); Mean Corpuscular Hemoglobin 34.1 pg (27.0-31.2); Mean Corpuscular Volume 103.7 fl (80-94); Nucleated Red Blood Cells % 0 %; Platelet Count 166 K/mm3 (142-424); Red Blood Count 2.73 M/mm3 (4.60-6.20); Red Cell Distribution Width-SD 53.4 fL; White Blood Count 8.2 K/mm3 (4.8-10.8)
[2024-10-18 04:45] LABS: Albumin Level 3.4 g/dl (3.5-5.0); Chloride 100 mmol/L (98-107); Potassium 4.3 mmoL/L (3.5-5.1); Sodium 139 mmol/L (136-145)
[2024-10-18 04:48] LABS: Alanine Aminotransferase 14 U/L (12-78); Albumin/Globulin Ratio 1.3 (1.1-1.8); Alkaline Phosphatase 93 U/L (38-126); Anion Gap 9.3 mEq/L (5-15); Aspartate Amino Transferase 33 U/L (17-59); Bilirubin,Total 0.3 mg/dl (0.2-1.3); Blood Urea Nitrogen 31 mg/dl (9-20); Calcium 8.5 mg/dl (8.4-10.2); Carbon Dioxide 34 mmol/L (22.0-30.0); Creatinine Clearance Estimated 50 mL/min (50-200); Creatinine,Serum 1.80 mg/dl (0.66-1.25); Estimated Glomerular Filt Rate 36 ml/min (>60); GFR (African American) 44 ML/MIN (>60); Globulin 2.7 g/dL (1.3-3.2); Glucose 145 mg/dl (74-100); Total Protein,Serum 6.1 g/dl (6.3-8.2)
[2024-10-18 04:49] LABS: Magnesium 2.0 mg/dl (1.6-2.3)
[2024-10-18] MEDS: humaLOG MIX 75/25 3ML FLEXPEN 20 UNIT SUBCUT (07:25)
[2024-10-18 07:35] VITALS: RESP 19
[2024-10-18 08:00] VITALS: PULSE 80
[2024-10-18] MEDS: APIXABAN 5MG TABLET 2.5 MG PO (08:32)
[2024-10-18] MEDS: ALLOPURINOL 100MG TABLET 100 MG PO (08:32)
[2024-10-18] MEDS: FUROSEMIDE 40 MG TABLET PO (08:33)
[2024-10-18] MEDS: FAMOTIDINE 20MG TABLET 20 MG PO (08:33)
[2024-10-18] MEDS: POLYETHYLENE GLYCOL 3350 17 GM PACKET PO (08:33)
[2024-10-18] MEDS: CLOPIDOGREL 75MG TAB 75 MG PO (08:33)
[2024-10-18] MEDS: METOPROLOL SUCCINATE XL 25MG TABLET 25 MG PO (08:33)
[2024-10-18] MEDS: GABAPENTIN 300MG CAPSULE 300 MG PO (08:38)
--- NOTE | 2024-10-18 10:36 | P.DS_ITS ---
<Statement entered by Lloyd Guthrie MD - 10/18/24 14:54> Rounded on patient after nurse practitioner. Personally examined and interviewed patient. Agree with exam findings and care plan as documented. Workup during admission with negative blood and urine cultures. White count defervesced quickly after first dose of antibiotics along with resolution of fever and no further recurrence. Did not have any infection identified. Low concern for respiratory infection. Imaging did show that he has emphysema which was news to family. Patient was initiated on Trelegy inhaler due to his emphysema and mucus production. We will continue empiric course of antibiotics and complete 5 days total with transition to cefdinir. In regard to patient's symptoms with shaking, tremor, hot flashes, weakness, body aches; there is strong concern at this time for possible TOMÁS Literature review including below: Issa Nelson, Davon Holder, Aric Abraham, Gregoria Guzman., Dany Paulino., Won Guerrero., Debra Fuchs., Issa Mata V., & Davon Loyola (2018). 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 Retrieved Oct 18, 2024, from? [email or web address] Timeframe of onset of symptoms would fit within antiandrogen withdrawal syndrome as he presented within a week of initially stopping medications for his first admission. 2nd and 3rd have been all within less than 4 weeks of stopping antiandrogen therapy. Continues to have same symptoms concerning for what sound like hot flashes versus flushing with chilled type sensation. Also having significant fatigue. PSA was obtained this visit and less than 0.01 (undetectable). In light of timeframe, constellation of symptoms, negative infectious workup, concern constellation of symptoms related to condition above. We do feel the patient would benefit from rehab at this time. If patient continues to have symptoms that worsen and re-presents to our facility, it would be my recommendation that patient warrants evaluation at tertiary center with urology, oncology, and infectious disease for better workup and evaluation of his constellation of symptoms. General Admission date:: 10/15/24 Discharge date: 10/18/24 HPI HPI HPI: Mr. Palmer is a 84-year-old male who presented to the emergency department today with hypoxia, O2 saturation 83% on room air and generalized weakness. He has a primary medical history of type 2 diabetes, hypertension, hyperlipidemia, CAD, prostate cancer, HFpEF, obesity. He was recently discharged from the hospital at the end of August for a HFpEF exacerbation. He presented today with hypoxia to the emergency department and was placed on 2 L nasal cannula which brought his oxygen saturation up to 93%. Son is at bedside and helps to provide history, states that he has not felt well over the last 24 hours and has had chills and fever. Temperature in the ED was 103 lab work was obtained and was notable for leukocytosis of 15 and lactic of 2.7. Viral swabs were negative. Blood cultures were obtained and are pending. Patient did not receive sepsis bolus in the ED due to sensitivity to fluids and HFpEF, received 125 mL was treated with broad-spectrum antibiotics including vancomycin, Flagyl, cefepime. The patient did remain hemodynamically stable in the emergency department, normotensive, heart rate below 90, oxygen saturation above 90% on room air. Patient did receive 1 g Tylenol IV in the ED as well, temperature stabilized at 98.5. Patient does have history of urinary tract infections, urinalysis was obtained and appears negative but was obtained after empiric antibiotics were started. The ED provider contacted hospital medicine for admission, and I was agreeable to admit for further care and monitoring. Hospital Course Hospital Course Hospital Course: Mr. Palmer is a 84-year-old male who presented to the emergency department with hypoxia, O2 saturation 83% on room air and generalized weakness. He has a primary medical history of type 2 diabetes, hypertension, hyperlipidemia, CAD, prostate cancer, HFpEF, obesity. He was recently discharged from the hospital at the end of August for a HFpEF exacerbation. He presented with hypoxia to the emergency department and was placed on 2 L nasal cannula which brought his oxygen saturation up to 93%. Son is at bedside and helps to provide history, states that he has not felt well over the last 24 hours and has had chills and fever. Temperature in the ED was 103 lab work was obtained and was notable for leukocytosis of 15 and lactic of 2.7. Viral swabs were negative. Blood cultures were obtained and continue to show no growth. patient did not receive sepsis bolus in the ED due to sensitivity to fluids and HFpEF, received 125 mL was treated with broad-spectrum antibiotics including vancomycin, Flagyl, cefepime. The patient did remain hemodynamically stable in the emergency department, normotensive, heart rate below 90, oxygen saturation above 90% on room air. Patient did receive 1 g Tylenol IV in the ED as well, temperature stabilized at 98.5. Patient does have history of urinary tract infections, urinalysis was obtained and appears negative but was obtained after empiric antibiotics were started. The ED provider contacted hospital medicine for admission, and I was agreeable to admit for further care and monitoring. Plan of care as follows: #Sepsis #Leukocytosis #Weakness ?Patient was started on empiric antibiotics for sepsis, vancomycin and cefepime. Blood cultures continue to show no growth, urine culture shows no growth, sputum culture negative. No pinpoint source of infection. White count remains normal no leukocytosis since admission. Will continue patient on cefdinir 300 mg twice daily to complete a total antibiotic course of 5 days. Patient has also remained normotensive and afebrile since admission. ?Patient continues to work with PT/OT due to his generalized weakness. Patient is ambulating with a walker and 2 times assist. He is very weak in his legs still. Patient has been accepted to [facility] for rehab. ?Discussed with patient and family the possibility of continued weakness, lethargy related to stopping his antiandrogen medications. Resume prednisone 5 mg daily at discharge. Discussed with family the need to follow-up with oncology for further discussion of medication use. #NSTEMI #New onset A-fib ?Patient continues to be in A-fib, rate controlled. Started on metoprolol 25 mg daily and Eliquis 2.5 mg twice daily per cardiology recommendation. Will f/u with cardiology in 1 week. ?Troponin on admission 0.04 bumped to 0.08. Patient had intermittent episodes of chest discomfort. EKGs have remained in A-fib with a acceptable rate. #Hypoxia ?Chest x-ray in the ED nonconcerning for pneumonia, emphysema changes noted. Trelogy inhaler daily. ?Room air saturation today 83%, patient continues to need 2 L nasal cannula. Maintaining oxygen saturation above 92% with 2 L nasal cannula. Continue O2 2L continuous, wean as tolerated. #CKD stage III ?Patient has known kidney dysfunction, baseline creatinine 2.00? Kidney function slightly improved creatinine 1.8. #Type 2 diabetes ?A1c 09/21 was 6.7%. ?Resume Novolin 70/30 AM and HS per APR. #HFpEF ?proBNP 598, appears to be close to patient baseline. Patient's lungs CTA. Pt. is euvolemic. ?Will continue Lasix 40 mg twice daily at discharge. #Chronic home meds: ?Allopurinol 100 mg twice daily, aspirin 81 mg daily, Plavix 75 mg daily, famotidine 20 mg daily, gabapentin 300 mg 3 times daily, hydralazine 20 mg twice daily, simvastatin 40 mg, tamsulosin 0.4 mg at bedtime. ?Holding hydralazine 20 mg. Total time spent on discharge 35 minutes in counseling, documentation, chart review, and direct care with patient. Exam Data for Last 24 hours Vital signs and Labs for Last 24 Hours: Temp Pulse Resp BP Pulse Ox O2 Del Method O2 Flow Rate 99.2 F 72 19 123/57 L 96 Nasal Cannula 2 10/18/24 04:00 10/18/24 04:00 10/18/24 07:35 10/18/24 04:00 10/18/24 04:00 10/18/24 07:00 10/18/24 07:35 Laboratory Results - last 24 hr 10/18/24 04:23: WBC 8.2, RBC 2.73 L, Hgb 9.3 L, Hct 28.3 L, MCV 103.7 H, MCH 34.1 H, MCHC 32.9, RDW 14.0, Plt Count 166, MPV 10.2, Neut % (Auto) 62.9, Lymph % (Auto) 22.9, [place] % (Auto) 11.9 H, Eos % (Auto) 1.7, Baso % (Auto) 0.2, Neut # (Auto) 5.1, Lymph # (Auto) 1.9, [place] # (Auto) 1.0, Eos # (Auto) 0.1, Baso # (Auto) 0.0, Sodium 139, Potassium 4.3, Chloride 100, Carbon Dioxide 34 H, Anion Gap 9.3, BUN 31 H, Creatinine 1.80 H, Estimated Creat Clear 50, Estimated GFR 36 L, Est GFR ( Amer) 44 L, Glucose 145 H D, Calcium 8.5, Magnesium 2.0 D, Total Bilirubin 0.3, AST 33, ALT 14, Alkaline Phosphatase 93, Total Protein 6.1 L, Albumin 3.4 L, Globulin 2.7, Albumin/Globulin Ratio 1.3, PSA Screen < 0.1 I & O for Last 24 hours: Intake & Output 10/15/24 10/16/24 10/17/24 10/18/24 23:59 23:59 23:59 23:59 Intake Total 2880 / 3230 1640 / 1640 1410 / 1770 730 / 730 Output Total 300 / 300 1500 / 1500 650 / 650 400 / 400 Balance 2580 / 2930 140 / 140 760 / 1120 330 / 330 Weight 119.295 kg 119.295 kg 120.157 kg 120.519 kg Microbiology Reports for the Last 24 Hours: Microbiology 10/16/24 11:30 Sputum - Expectorated Sputum Gram Stain - Final 10/16/24 11:30 Sputum - Expectorated Sputum Sputum Culture - Preliminary 10/15/24 12:20 Blood Blood Culture - Preliminary NO GROWTH AFTER 48 HOURS 10/15/24 12:07 Blood Blood Culture - Preliminary NO GROWTH AFTER 48 HOURS 10/15/24 14:54 Urine,Clean Catch Urine Culture - Final No growth. Constitutional Constitutional: no acute distress, obese, chronically ill appearing, cooperative and somnolent *Routine HEENT Exam Head: Present normocephalic Eye: Present EOMI ENT: Present mucous membranes moist *Routine Neck Exam Neck: Present supple; Absent JVD *Routine Respiratory Exam Respiratory: Present CTA bilaterally, able to speak in complete sentences and symmetric chest movement; Absent wheezes or crackles *Routine Cardiovascular Exam Cardiovascular: Present irregularly irregular; Absent murmur Comments: Regular rate *Routine Abdominal Exam Abdominal: Present soft and normoactive bowel sounds; Absent tenderness or distended *Routine Extremities Exam Extremities: Present full ROM and normal capillary refill; Absent edema *Routine Skin Exam Skin: Present intact and dry; Absent erythema or rash *Routine Neurological Exam Neurological: Present alert, oriented X3, normal speech and tremors Results Data Completed and Pending Labs on day of discharge: Labs from last 24 hours 10/18/24 04:23 WBC 8.2 RBC 2.73 L Hgb 9.3 L Hct 28.3 L MCV 103.7 H MCH 34.1 H MCHC 32.9 RDW 14.0 Plt Count 166 MPV 10.2 Neut % (Auto) 62.9 Lymph % (Auto) 22.9 [place] % (Auto) 11.9 H Eos % (Auto) 1.7 Baso % (Auto) 0.2 Neut # (Auto) 5.1 Lymph # (Auto) 1.9 [place] # (Auto) 1.0 Eos # (Auto) 0.1 Baso # (Auto) 0.0 Sodium 139 Potassium 4.3 Chloride 100 Carbon Dioxide 34 H Anion Gap 9.3 BUN 31 H Creatinine 1.80 H Estimated Creat Clear 50 Estimated GFR 36 L Est GFR ( Amer) 44 L Glucose 145 H D Calcium 8.5 Magnesium 2.0 D Total Bilirubin 0.3 AST 33 ALT 14 Alkaline Phosphatase 93 Total Protein 6.1 L Albumin 3.4 L Globulin 2.7 Albumin/Globulin Ratio 1.3 PSA Screen < 0.1 Preliminary micro results at discharge 10/16/24 11:30 Sputum Culture - Preliminary Sputum - Expectorated Sputum 10/15/24 12:20 Blood Culture - Preliminary Blood NO GROWTH AFTER 48 HOURS 10/15/24 12:07 Blood Culture - Preliminary Blood NO GROWTH AFTER 48 HOURS DS: Diagnosis Discharge Diagnosis (1) Sepsis: Status: Acute Code(s): A41.9 - Sepsis, unspecified organism Qualifiers: Acute respiratory failure type: with hypoxia Sepsis acute organ dysfunction status: with acute organ dysfunction Sepsis type: sepsis due to unspecified organism Severe sepsis acute organ dysfunction type: acute respiratory failure Severe sepsis shock status: without septic shock Qualified Code(s): A41.9 - Sepsis, unspecified organism; R65.20 - Severe sepsis without septic shock; J96.01 - Acute respiratory failure with hypoxia (2) Leukocytosis: Status: Acute Code(s): D72.829 - Elevated white blood cell count, unspecified Qualifiers: Leukocytosis type: unspecified Qualified Code(s): D72.829 - Elevated white blood cell count, unspecified (3) Generalized weakness: Status: Acute Code(s): R53.1 - Weakness (4) Hypertension: Status: Chronic Code(s): I10 - Essential (primary) hypertension Qualifiers: Hypertension type: primary hypertension Qualified Code(s): I10 - Essential (primary) hypertension (5) Acute on chronic heart failure with preserved ejection fraction (HFpEF): Status: Acute Code(s): I50.33 - Acute on chronic diastolic (congestive) heart failure Problem details: This is now compensated (6) Chronic kidney disease, stage III (moderate): Status: Acute Code(s): N18.30 - Chronic kidney disease, stage 3 unspecified Qualifiers: Chronic kidney disease stage 3 subtype: unspecified whether 3a or 3b Qualified Code(s): N18.30 - Chronic kidney disease, stage 3 unspecified (7) Dyspnea: Status: Acute Code(s): R06.00 - Dyspnea, unspecified Qualifiers: Dyspnea type: dyspnea on exertion Qualified Code(s): R06.09 - Other forms of dyspnea (8) Obesity (BMI 30-39.9): Status: Chronic Code(s): E66.9 - Obesity, unspecified (9) Type 2 diabetes mellitus with diabetic polyneuropathy, with long-term current use of insulin: Status: Chronic Code(s): E11.42 - Type 2 diabetes mellitus with diabetic polyneuropathy; Z79.4 - vermin exterminator (current) use of insulin Meds Home Medications and Allergies Home Medications ?Medication ?Instructions ?Recorded ?Confirmed ?Type aspirin 81 mg tablet,delayed 81 mg PO DAILY 10/19/18 0 10/15/24 History release (Adult Low Dose Aspirin) simvastatin 40 mg tablet 40 mg PO HS #90 tabs 5 10/15/24 Rx calcitriol 0.25 mcg capsule 0.25 mcg PO MOWEFR #36 cap s 05/04/24 10/15/24 Rx tamsulosin 0.4 mg capsule 0.4 mg PO HS #90 caps 10/15/24 Rx clopidogrel 75 mg tablet 75 mg PO DAILY #90 tabs 0511/2210/15/24 Rx gabapentin 300 mg capsule 300 mg PO TID #270 caps 11/2210/15/24 Rx allopurinol 100 mg tablet 100 mg PO BID #180 tabs 11/2210/15/24 Rx pantoprazole 40 mg tablet,delayed 40 mg PO DAILY 09/2310/15/24 History release cholecalciferol (vitamin D3) 50 50 mcg PO DAILY 10/15/24 History mcg (2,000 unit) capsule (Vitamin D3) coenzyme Q10 100 mg capsule 100 mg PO DAILY 09/26/24 0 10/15/24 History (CoQ-10) mecobalamin (vitamin B12) 1,000 1,000 mcg PO DAILY 10/15/24 History mcg chewable tablet (B12 Active) prednisone 5 mg tablet 5 mg PO DAILY #30 tabs 09/2610/15/24 Rx famotidine 20 mg tablet 20 mg PO DAILY 10/08/2409/28 History furosemide 40 mg tablet 40 mg PO BIDP PRN Edema 09/2810/15/24 History insulin human U-100 NPH-regulr 20 unit SQ HS 10/15/24 10/15/24 History 70-30 mix 100 unit/mL subcutaneous susp (Novolin 70/30 U-100 Insulin) insulin human U-100 NPH-regulr 35 unit SQ AM 10/15/24 10/15/24 History 70-30 mix 100 unit/mL subcutaneous susp (Novolin 70/30 U-100 Insulin) apixaban 5 mg tablet (Eliquis) 2.5 mg (1/2 x 5 mg) PO BID 30 days 10/18/24 Rx #30 tabs cefdinir 300 mg capsule 300 mg PO BID #4 caps Rx lidocaine 5 % topical patch 1 patch transdermal Q24H 3 0 days 10/18/24 Rx #30 ea metoprolol succinate 25 mg 25 mg PO DAILY 30 days #30 tabs 10/18/24 Rx tablet,extended release 24 hr sennosides 8.6 mg-docusate sodium 1 tab PO DAILYP PRN Constipation 10/18/24 Rx 50 mg tablet (Stimulant Laxative 30 days #30 tabs Plus) New Prescriptions to Start Prescriptions: apixaban [Eliquis] Alexia López cefdinir Alexia López lidocaine Alexia López metoprolol succinate Alexia López sennosides-docusate sodium [Stimulant Laxative Plus] Alexia López Allergies Allergy/AdvReac Type Severity Reaction Status Date / Time No Known Allergies Allergy Verified 10/10/24 10:43 Discharge Plan Disposition Patient Disposition: [facility] Condition: Good Discharge Order Discharge Orders: Discharge Order (Routine); Ordered 10/18/24 Ordered By: Alexia López Follow up Plan Follow up with: Makenzie Bojorquez APRN [Nurse Practitioner, Cardiology] - 1 week Prescriptions/Medication Reconciliation: New sennosides-docusate sodium [Stimulant Laxative Plus] 8.6-50 mg Tablet 1 tab PO DAILYP PRN (Reason: Constipation) 30 Days Qty: 30 0RF lidocaine 5 % Adhesive Patch,Medicated 1 patch transdermal Q24H 30 Days Qty: 30 0RF metoprolol succinate 25 mg Tablet Extended Release 24 Hr 25 mg PO DAILY 30 Days Qty: 30 0RF Eliquis 5 mg Tablet 2.5 mg PO BID 30 Days Qty: 30 0RF cefdinir 300 mg capsule 300 mg PO BID Qty: 4 0RF Continued aspirin [Adult Low Dose Aspirin] 81 mg tablet,delayed release (DR/EC) 81 mg PO DAILY famotidine 20 mg tablet 20 mg PO DAILY furosemide 40 mg tablet 40 mg PO BIDP PRN (Reason: Edema) simvastatin 40 mg tablet 40 mg PO HS Qty: 90 1RF calcitriol 0.25 mcg capsule 0.25 mcg PO MOWEFR Qty: 36 1RF tamsulosin 0.4 mg capsule 0.4 mg PO HS Qty: 90 1RF clopidogrel 75 mg tablet 75 mg PO DAILY Qty: 90 1RF gabapentin 300 mg capsule 300 mg PO TID Qty: 270 1RF allopurinol 100 mg tablet 100 mg PO BID Qty: 180 1RF pantoprazole 40 mg tablet,delayed release (DR/EC) 40 mg PO DAILY coenzyme Q10 [CoQ-10] 100 mg Capsule 100 mg PO DAILY cholecalciferol (vitamin D3) [Vitamin D3] 50 mcg (2,000 unit) Capsule 50 mcg PO DAILY mecobalamin (vitamin B12) [B12 Active] 1,000 mcg Tablet,Chewable 1,000 mcg PO DAILY prednisone 5 mg tablet 5 mg PO DAILY Qty: 30 0RF Novolin 70/30 U-100 Insulin 100 unit/mL (70-30) suspension 35 unit SQ AM Patient Comments: INJECT 58 UNITS SUBCUTANEOUSLY DIRECTED TWICE DAILY WITH MEALS Novolin 70/30 U-100 Insulin 100 unit/mL (70-30) suspension 20 unit SQ HS Patient Comments: INJECT 58 UNITS SUBCUTANEOUSLY DIRECTED TWICE DAILY WITH MEALS Discontinued hydralazine 10 mg tablet 20 mg PO BID Qty: 180 1RF Other Ambulatory Orders: Home Medical Equipment (Routine) Location: None Selected Ordered By: Alexia López Problem Reconciliation Problems Reviewed?: Yes Patient Discharge Instructions ACTIVITY: Ambulate as tolerated and Up with assistance DIET: continue same diet and diabetic diet Patient Instructions: DI for Kidney Failure, DI for Sepsis -- Adult, Stop Light Infection Print Language: Albanian Providers Primary Care Provider: Christopher Yadav Admit Provider: Wyatt Nath Attending Provider: Wyatt Nath
[2024-10-18] MEDS: FLUTICASONE/UMECLIDIN/VILANTER 100/62.5/25MCG INHALER 1 PUFF IH (11:03)
[2024-10-18] MEDS: IPRATROPIUM/ALBUTEROL 3 ML NEB IH (11:13)
[2024-10-18 11:15] VITALS: PULSE 80; PULSE 81; O2SAT 94
--- NOTE | 2024-10-18 11:39 | CARE MANAGER ---
Patient will require portable oxygen to get to [facility]. [facility] states they do not have portable oxygen for us to use. Contacted [facility] as patient has night time oxygen through them and they can rent a portable system to them for $10. Family requested portable be delivered. Infiormation sent to [facility].
[2024-10-18 11:54] VITALS: BP 134/59; PULSE 87; RESP 18; TEMP 37.2; O2SAT 96
--- NOTE | 2024-10-18 13:53 | PC.NURSE ---
Report called to [facility]. Family will transport pt to facility.
== END 2024-10-18 14:32 | DRG 871 ==
LOC: ER 12:28 → 2ND 13:05
PROVIDERS: Internal Medicine Adolescent Medicine; Admitting Provider Student in an Organized Health Care Education/Training Program; Emergency Provider Student in an Organized Health Care Education/Training Program; PCP Internal Medicine; Visit Provider Student in an Organized Health Care Education/Training Program
DX: A41.9 Sepsis, unspecified organism (principal); I21.4 Non-ST elevation (NSTEMI) myocardial infarction; J96.01 Acute respiratory failure with hypoxia; I13.0 Hypertensive heart and chronic kidney disease with heart failure and stage 1 through stage 4 chronic kidney disease, or unspecified chronic kidney disease; I48.19 Other persistent atrial fibrillation; I50.32 Chronic diastolic (congestive) heart failure; J43.9 Emphysema, unspecified; I25.10 Atherosclerotic heart disease of native coronary artery without angina pectoris; E11.22 Type 2 diabetes mellitus with diabetic chronic kidney disease; N18.32 Chronic kidney disease, stage 3b; E66.9 Obesity, unspecified; E11.42 Type 2 diabetes mellitus with diabetic polyneuropathy; E78.2 Mixed hyperlipidemia; T38.6X5A Adverse effect of antigonadotrophins, antiestrogens, antiandrogens, not elsewhere classified, initial encounter; R65.20 Severe sepsis without septic shock; R53.1 Weakness; Z68.36 Body mass index [BMI] 36.0-36.9, adult; Z95.5 Presence of coronary angioplasty implant and graft; Z85.46 Personal history of malignant neoplasm of prostate; Z79.4 Long term (current) use of insulin; Z79.82 Long term (current) use of aspirin; Z79.02 Long term (current) use of antithrombotics/antiplatelets; Z79.52 Long term (current) use of systemic steroids; Z79.899 Other long term (current) drug therapy
CPT/HCPCS: 36415; 71045; 74176; 80053; 80061; 81001; 82803; 82962; 83605; 83735; 83880; 84484; 85007; 85025; 87040; 87070; 87086; 87205; 87631; 93005; 94640; 97162; 97166; 97530; 99284; G0103; J0131; J0692; J1650; J1836; J3373; J3475; J7050; J7120; J7512

== ENCOUNTER 2024-12-05 11:40 | Outpatient (CLI) | payer MEDICARE, BC, SELFPAY ==
[2024-12-05 11:51] LABS: Microscopic, Urine URINE MICROSCOPIC (MICROSCOPIC)
[2024-12-05 12:13] LABS: Hematocrit 33.5 % (42.0-52.0); Hemoglobin 10.7 g/dL (14.1-18.0); Immature Granulocytes % 0.4 %; Mean Corpuscular HGB Conc 31.9 g/dL (31.8-35.4); Mean Corpuscular Hemoglobin 32.8 pg (27.0-31.2); Mean Corpuscular Volume 102.8 fl (80-94); Nucleated Red Blood Cells % 0 %; Platelet Count 193 K/mm3 (142-424); Red Blood Count 3.26 M/mm3 (4.60-6.20); Red Cell Distribution Width-SD 56.2 fL; White Blood Count 9.1 K/mm3 (4.8-10.8)
[2024-12-05 13:28] LABS: Albumin Level 3.7 g/dl (3.5-5.0); Chloride 98 mmol/L (98-107); Potassium 4.6 mmoL/L (3.5-5.1); Sodium 140 mmol/L (136-145)
[2024-12-05 13:31] LABS: Anion Gap 11.6 mEq/L (5-15); Calcium 8.9 mg/dl (8.4-10.2); Carbon Dioxide 35 mmol/L (22.0-30.0); Glucose 165 mg/dl (74-100); Iron 66 ug/dL (49-181); Phosphorous 4.0 mg/dl (2.5-4.5)
[2024-12-05 13:40] LABS: Total Iron Binding Capacity 286 ug/dL (261-462)
[2024-12-05 14:07] LABS: Ferritin 48.8 ng/ml (17.9-464)
[2024-12-05 14:41] LABS: Bilirubin,Urine Negative (Negative); Color,Urine YELLOW (Yellow); Glucose,Urine (UA) 3+ (Negative); Ketones,Urine Negative (Negative); Leukocyte Esterase,Urine Negative (Negative); PH,Urine 5.5 (5.0-8.5); Protein,Urine Negative (Negative); Specific Gravity, Urine 1.010 (1.005-1.030); Urobilinogen,Urine 0.2 EU/dl (0.2)
[2024-12-05 15:25] LABS: Bacteria,Urine Trace /lpf; Squamous Epithelial Cell,Urine Occasional #/hpf (0-5); WBC,Urine Occasional #/hpf (0-3)
[2024-12-05 23:56] LABS: Blood Urea Nitrogen 32 mg/dl (9-20); Creatinine,Serum 1.90 mg/dl (0.66-1.25); Estimated Glomerular Filt Rate 34 ml/min (>60); GFR (African American) 41 ML/MIN (>60)
== END 2024-12-05 23:59 | disposition home or self-care (01) ==
LOC: LAB 11:41
PROVIDERS: PCP Internal Medicine; Visit Provider Internal Medicine Nephrology
DX: N18.32 Chronic kidney disease, stage 3b (principal)
CPT/HCPCS: 36415; 80069; 81001; 82570; 82728; 83540; 83550; 84156; 85025

== ENCOUNTER 2025-01-01 14:24 | Outpatient (CLI) | payer MEDICARE, BC, SELFPAY ==
--- OUTSIDE RECORDS SUMMARY | 2024-12-06 09:30 | XMS_ITS | Encounter Summary ---
Author Organization [employer] ([place], [place], [place], [place], [place]) Address [address] [place] [address] Care Team Providers Care Groover Runner Name Role Phone Christopher Yadav MD Primary Care Provider [phone] Encounter Details Date Type Department Care Team (Latest Contact Info) Description 12/06/2024 10:30 AM EDT Lab Patient Walk-In [facility] [address] [place] [address] Xochitl Serra MD [address] [address] Prostate cancer (HCC); Renal dysfunction Social History Tobacco Use Types [...] Date Ehsan rded Speak language other than Azeri at home Not on file 03/11/2023 Want [...] Care Team (Late st Contact Info) Description 03/27/2025 3:00 PM EST Office Visit [facility] - [address] [place] [address] Arnol Courtney MD [address] [facility] [address] [place] [id number] documented as of this encounter Procedures Procedure Name Priority Date/Time Associated Diagnosis Comments CBC W/ AUTO DIFF Routine 12/06/2024 10:3 5 AM EDT Prostate cancer (HCC) Renal dysfunction TESTOSTERONE, ADULT MALE(SENDOUT) Routine 12/06/2024 10:35 AM EDT Prostate cancer (HCC) Renal dysfunction PSA Routine 12/06/2024 10:35 AM EDT Prostate cancer (HCC) Renal dysfunction COMPREHENSIVE METABOLIC PANEL Routine 12/06/2024 10:35 AM EDT Prostate cancer (HCC) Renal dysfunction documented in this encounter Results * (ABNORMAL) Testosterone, Adult Male(SENDOUT) (12/06/2024 10:35 AM EDT) Testosterone by Immunoassay <3(L) 300 - 720 ng/dL 12/07/2024 10:36 PM EDT [facility] Comment: INTERPRETIVE INFORMATION: Testosterone by Immunoassay Testosterone immunoassays are both imprecise and inaccurate at low testosterone concentrations, such as those found in children and cisgender females. For these individuals, testing by mass spectrometry is recommended; refer to Testosterone (Adult Females, Children, or Individuals on Testosterone-Suppressing Hormone Therapy) (Indix test code 7905733). Free or bioavailable testosterone measurements may provide supportive information. For individuals on testosterone hormone therapy, refer to cisgender male reference intervals. No reference intervals have been established for males younger than 14 years or for cisgender females. For a complete set of all established reference intervals, refer to [facility]/Tests/Pub/[id number]. Performed By: [facility] [address] [place] [address] Provider Relations Specialist: Cameron Javier MD, PhD CLIA Number: [id number] Blood Venipuncture / Unknown 12/06/2024 10:35 AM EDT 12/06/2024 10:44 AM EDT us Xochitl Serra MD LAB BLOOD ORDERABLES Final Res ult [facility] [address] [place] [address], [facility] [phone] * PSA (Blazer, LUCIA, Coram, Scott, [facility]) (12/06/2024 10:35 AM EDT) PSA Diagnostic <0.10 0.00 - 4.00 ng/mL 12/06/2024 3:02 PM EDT [facility] Comment:Israel Alinity i sarah miluminescent immunoassay was used to obtain results. Results determined by assays using different manufacturers or methods may not be comparable. Blood Venipuncture / Unknown 12/06/2024 10:35 AM EDT 12/06/2024 10:44 AM EDT us Xochitl Serra MD LAB BLOOD ORDERABLES Final Res ult [facility] [address] [phone] * (ABNORMAL) CMP (12/06/2024 10:35 AM EDT) Pathologist [facility] Sodium 142 136 - 145 meq/L 12/06/2024 11:25 AM EDT [facility] Potassium 4.3 3.5 - 5.1 meq/L 12/06/2024 11:25 AM EDT [facility] Chloride 102 98 - 107 meq/L 12/06/2024 11:25 AM EDT [facility] CO2 32 21 - 32 meq/L 12/06/2024 11:25 AM EDT [facility] Calcium 8.6 8.5 - 10.1 mg/dL 12/06/2024 11:25 AM EDT [facility] Glucose 157(H) 74 - 100 mg/dL 12/06/2024 11:25 AM EDT [facility] BUN 32(H) 7 - 18 mg/dL 12/06/2024 11:25 AM EDT [facility] Creatinine 2.09(H) 0.70 - 1.20 mg/dL 12/06/2024 11:25 AM EDT [facility] BUN/Creatinine 15 12/06/2024 11:25 AM EDT [facility] Albumin 3.4 3.4 - 5.0 g/dL 12/06/2024 11:25 AM EDT [facility] Alkaline Phosphatase 96 46 - 116 U/L 12/06/2024 11:25 AM EDT [facility] ALT 10(L) 12 - 78 U/L 12/06/2024 11:25 AM EDT [facility] AST 11(L) 15 - 37 U/L 12/06/2024 11:25 AM EDT [facility] Total Bilirubin 0.5 0.2 - 1.0 mg/dL 12/06/2024 11:25 AM EDT [facility] Protein, Total 6.9 6.4 - 8.2 gm/dL 12/06/2024 11:25 AM EDT [facility] Anion Gap 12 11 - 22 12/06/2024 11:25 AM EDT [facility] A/G Ratio 1.0 12/06/2024 11:25 AM EDT [facility] Globulin 3.5 g/dL 12/06/2024 11:25 AM EDT [facility] Osmolality Calc 293.3 mOsm/kg 11:25 AM EDT [facility] eGFR (mL/min/1.73m2) 30(L) >=60 mL/min/1.7 3m2 12/06/2024 11:25 AM EDT [facility] Comment:ESTIMATED GFR IS NOT ACCURATE CREATININE CLEARANCE IN PREDICTING GLOMERULAR FILTRATION RATE. ESTIMATED GFR IS NOT APPLICABLE FOR DIALYSIS PATIENTS. Blood Venipuncture / Unknown 12/06/2024 10:35 AM EDT 12/06/2024 10:44 AM EDT us Xochitl Serra MD LAB BLOOD ORDERABLES Final Res ult [facility] [address] [place] [address], [facility] [phone] * (ABNORMAL) CBC with Diff (12/06/2024 10:35 AM EDT) WBC 7.8 4.8 - 10.8 K/ L 12/06/2024 10:47 AM EDT [facility] RBC 3.15(L) 3.80 - 5.20 M/ L 12/06/2024 10:47 AM EDT [facility] Hemoglobin 10.4(L) 12.8 - 17.4 GM/DL 12/06/2024 10:47 AM EDT [facility] Hematocrit 32.4(L) 39.0 - 51.0 % 12/06/2024 10:47 AM EDT [facility] MCV 103(H) 81 - 101 fL 12/06/2024 10:47 AM EDT [facility] MCH 33.0 27.0 - 34.0 pg 12/06/2024 10:47 AM EDT [facility] MCHC 32.1 32.0 - 36.0 GM/DL 12/06/2024 10:47 AM EDT [facility] RDW 15.4(H) 11.5 - 14.5 % 12/06/2024 10:47 AM EDT [facility] Platelets 176 150 - 400 K/CU MM 12/06/2024 10:47 AM EDT [facility] MPV 10.2 9.4 - 12.4 fL 12/06/2024 10:47 AM EDT [facility] Nucleated Red Blood Cell 0.0 0 - 0.2 % 12/06/2024 10:47 AM EDT [facility] % Neutros 71 37 - 80 % 12/06/2024 10:47 AM EDT [facility] % Lymphs 19 10 - 50 % 12/06/2024 10:47 AM EDT [facility] % Monos 9 5 - 13 % 12/06/2024 10:47 AM EDT [facility] % Eos 1 0 - 7 % 12/06/2024 10:47 AM EDT [facility] % Baso 0 0 - 3 % 12/06/2024 10:47 AM EDT [facility] NRBC Absolute <0.01 0 - 0.012 K/ul 12/06/2024 10:47 AM EDT [facility] # Neutros 5.50 2.00 - 6.90 K/ L 12/06/2024 10:47 AM EDT [facility] # Lymphs 1.50 0.60 - 3.40 K/ L 12/06/2024 10:47 AM EDT [facility] # Monos 0.67 0.00 - 0.90 K/ L 12/06/2024 10:47 AM EDT [facility] # Eos 0.06 0.00 - 0.70 K/ L 12/06/2024 10:47 AM EDT [facility] # Baso 0.02 0.00 - 0.20 K/ L 12/06/2024 10:47 AM EDT [facility] % Imm Grans 0.30 % 12/06/2024 10:47 AM EDT [facility] # IG 0.02(H) 0.00 - 0.00 K/uL 12/06/2024 10:47 AM EDT [facility] Blood Venipuncture / Unknown 12/06/2024 10:35 AM EDT 12/06/2024 10:44 AM EDT Narrative [facility] - 12/06/2024 10:47 AM EDT When CBC w/ Auto Diff is [...] MD LAB BLOOD ORDERABLES Final Res ult [facility] [address] [place] [address], [facility] [phone] documented in this encounter Visit Diagnoses Diagnosis Prostate cancer (HCC) Malignant neoplasm of prostate Renal dysfunction Unspecified disorder of kidney and ureter documented in this encounter Care Teams Groover Runner Relationship Specialty Start Date End Date Christopher Yadav MD [address] [place] [address] PCP - General General Internal Medicine 03/15/23 documented as of this encounter
--- OUTSIDE RECORDS SUMMARY | 2024-12-19 10:00 | XMS_ITS | Encounter Summary ---
Author Organization [facility] yste Address [address] [place] [address] Care Team Providers Care [employer] Membership Sales Agent Name Role Phone Christopher Yadav MD Primary Care Provider [phone] Reason for Visit * Reason Comments Diabetes Type II Diabetes Encounter Details Date Type Department Care Team (Late st Contact Info) Description 12/19/2024 11:00 AM EDT Office Visit [facility] [address] [facility] [address] [place] [phone] Daniel Vasquez MD [address] [facility] [address] [place] [address] Uncontrolled type 2 diabetes mellitus with hyperglycemia (Primary Dx); Primary hypertension; Mixed hyperlipidemia; Coronary artery disease involving port gam[place] coronary artery of port gamble heart without angina pectoris Social History Tobacco Use Types Packs/Day Years Used Date Smoking Tobacco: Former Smokeless Tobacco: Never Comments:quit 1980 Alcohol Use Standard Drinks/Week Comments No 0 (1 standard drink = 0.6 oz pur e alcohol) [facility] Utilities Answer Date Recorded In the past 12 months has [employer], gas, oil, or water [employer] threatened to shut off services in your home? No 10/30/2024 AUDIT-C Answer Date Recorded Q1: How often do you have a drink containing alcohol? Never 10/27/2024 Q2: How many drinks containi ng alcohol do you have on a typical day when you are drinking? Patient does not drink Q3: How often do you have si x or more drinks on one occasion? Never 10/27/2024 Exercise Vital Sign Answer Date Recorde d On average, how many days pe r week do you engage in moderate to strenuous exercise (like a brisk walk)? 3 days 10/30/2024 On average, how many minutes do you engage in exercise at this level? 30 min 10/30/2024 Hunger Vital Sign Answer Date Recorded Within the past 12 months, y ou worried that your food would run out before you got the money to buy more. Never true 10/31/19 25 Within the past 12 months, t he food you bought just didn't last and you didn't have money to get more. Never true 10/30/2024 PRAPARE - Transportation Answer Date Re corded In the past 12 months, has l ack of transportation kept you from medical appointments or from getting medications? No 03/2024 In the past 12 months, has l ack of transportation kept you from meetings, work, or from getting things needed for daily living? No 10/30/2024 Abuse Screen Answer Date Recorded Feels Unsafe at Home or Work/School no 10/27/2024 Feels Threatened by Someone no 09/30 Does Anyone Try to Keep You From Having Contact with Others or Doing Things Outside Your Home? no 10/27/2024 Physical Signs of Abuse Present no 10/27/2024 Housing Stability Answer Date Recorded Current Living Arrangements home 03/2024 Potentially Unsafe Housing Conditions unable to assess 10/30/2024 Family and Community Support Answer Jarvis e Recorded If for any reason you need h elp with day-to-day activities such as bathing, preparing meals, shopping, managing finances, etc., do you get the help you need? I get all the help I need 10/30/2024 Lonely or Isolated Not on file 10/30/2024 Employment Answer Date Recorded Do you want help finding or keeping work or a job? I do not need or want help 10/30/2024 Disabilities Answer Date Recorded Difficulty Concentrating, Remembering or Making Decisions no 10/27/2024 Difficulty Managing Errands Independently yes 10/27/2024 Education Answer Date Recorded Do you want help with school or training? For example, starting or completing job training or getting a high school diploma, GED or equivalent No 10/30/2024 Preferred Language Indian 10/30/2024 Sex and Gender Information Value Date Recorded Sex Assigned at Not on file Legal Sex Male 1:45 PM EDT Gender Identity Not on file Sexual Orientation Not on file documented as of this encounter Last Filed Vital Signs Vital Sign Reading Time Taken Comments Blood Pressure 152/76 12/19/2024 10:55 AM EDT Pulse 61 12/19/2024 10:55 AM EDT Temperature - - Respiratory Rate - - Oxygen Saturation 94% 12/19/2024 10:55 AM EDT Inhaled Oxygen Concentration - - Weight 121 kg (267 lb 12.8 oz) 12/19/2024 10:55 AM EDT Height 182.9 cm (6' 0.01 ) 12/19/2024 10:55 AM E DT Body Mass Index 36.31 12/19/2024 10:55 AM EDT documented in this encounter Progress Notes * Daniel Vasquez MD - 12/19/2024 11:35 AM EDTAssociated Problem(s): Uncontrolled type 2 diabetes mellitus with hyperglycemia Diabetes is worsening. A1c increased slightly but still acceptable. Continue current treatment regimen. Diabetes will be reassessed in 6 months. Lakoo Iqra 2 CGM was downloaded today. Data was reviewed from 12/02/24 to 12/15/24. This showedfairly good glucose control. Occ postprandial spike. Time in range was 83%. * Daniel Vasquez MD - 12/19/2024 11:31 AM EDTAssociated Problem(s): Hyperlipidemia Continue statin. Plan to check lipids next visit. * Daniel Vasquez MD - 12/19/2024 11:31 AM EDTAssociated Problem(s): Hypertension SBP a bit elevated today but DBP low. Continue current meds. Montior BP at home. * Daniel Vasquez MD - 12/19/2024 11:30 AM EDTAssociated Problem(s): CAD (coronary artery disease) Continue eliquis, plavix and statin. * Daniel Vasquez MD - 12/19/2024 11:00 AM EDT Images from the original note were not included. Office Note Date: 12/19/2024 Patient Name: Braeden Palmer : 1940 Chief Complaint Patient presents with Diabetes Type II Diabetes History of Present Illness: Braeden Palmer is a 84 y.o. male who presents for Diabetes type 2. Diagnosed in: 2009. Treated in pastwith insulin. Current treatments: jardiance (started by setter molding and coremaking machines) and premix insulin. Number ofinsulin shots per day: 2. Checks blood sugar 288 times a day - on FreeStyle Iqra 2. Has low blood sugar: occ nocturnal. Aspirin use: Yes. Statin use: Yes. YAEL-I/ARB use: No. Changes in health since last visit: hospital admission for CHF exacerbation. Last eye exam 11/2023. Subjective Diabetic Complications: Eyes: Yes - laser surgery Kidneys: Yes - sees transportation engineer Feet: No Heart: Yes - stents Diet and Exercise: Meals per day: 3 Minutes of exercise per week: 0 mins. Review of Systems: Review of Systems Constitutional: Negative. Cardiovascular: Negative. Gastrointestinal: Negative. Endocrine: Negative. The following portions of the patient's history were reviewed and updated as appropriate: allergies, current medications, past family history, past medical history, past social history, past surgicalhistory, and problem list. Objective Visit Vitals BP 152/76 (BP Location: Left arm, Patient Position: Sitting) Pulse 61 Ht 182.9 cm (72.01 ) Wt 121 kg (267 lb 12.8 oz) SpO2 94% BMI 36.31 kg/m?? Physical Exam: Physical Exam Constitutional: Appearance: Normal appearance. Neurological: Mental Status: He is alert. Labs: HbA1c Lab Results Component Value Date HGBA1C 7.7 (A) 12/19/2024 CMP Lab Results Component Value Date GLUCOSE 157 (H) 10/31/2024 BUN 36.6 (H) 10/31/2024 CREATININE 2.07 (H) 10/31/2024 EGFRIFNONA 29 (L) 11/13/2018 BCR 17.7 10/31/2024 K 3.8 10/31/2024 CO2 38.0 (H) 10/31/2024 CALCIUM 9.0 10/31/2024 AST 17 10/27/2024 ALT 9 10/27/2024 Lipid Panel Lab Results Component Value Date HDL Cholesterol 61 (H) 05/18/2024 LDL Cholesterol 55 05/18/2024 LDL/HDL Ratio 0.91 05/18/2024 Triglycerides 66 05/18/2024 TSH Lab Results Component Value Date TSH 1.550 05/18/2024 Hemoglobin A1C No components found for: HGBA1C Microalbumin/Creatinine Lab Results Component Value Date MALBCRERATIO 57.7 (H) 05/18/2024 MICROALBUR 3.1 05/18/2024 Assessment / Plan Assessment & Plan: Diagnoses and all orders for this visit: 1. Uncontrolled type 2 diabetes mellitus with hyperglycemia (Primary) Assessment & Plan: Diabetes is worsening. A1c increased slightly but still acceptable. Continue current treatment regimen. Diabetes will be reassessed in 6 months. Lakoo Iqra 2 CGM was downloaded today. Data was reviewed from 12/02/24 to 12/15/24. This showedfairly good glucose control. Occ postprandial spike. Time in range was 83%. Orders: - POC Glucose, Blood - POC Glycosylated Hemoglobin (Hb A1C) 2. Primary hypertension Assessment & Plan: SBP a bit elevated today but DBP low. Continue current meds. Montior BP at home. 3. Mixed hyperlipidemia Assessment & Plan: Continue statin. Plan to check lipids next visit. 4. Coronary artery disease involving port gam[place] coronary artery of port gam[place] heart without angina pectoris Assessment & Plan: Continue eliquis, plavix and statin. Other orders - insulin NPH-insulin regular (humuLIN 70/30,novoLIN 70/30) (70-30) 100 UNIT/ML injection; Inject 15 Units under the skin into the appropriate area as directed 2 (Two) Times a Day With Meals. Dispense: 27 mL; Refill: 3 Current Outpatient Medications Medication Instructions acetaminophen (TYLENOL) 650 mg, Oral, Every 4 Hours PRN allopurinol (ZYLOPRIM) 100 mg, 2 times daily apixaban (ELIQUIS) 2.5 mg, Oral, Every 12 Hours Scheduled calcitriol (ROCALTROL) 0.25 mcg, Oral, 3 Times Weekly, Tuesday, Tuesday, Tuesday carvedilol (COREG) 3.125 mg, Oral, 2 Times Daily With Meals clopidogrel (PLAVIX) 75 mg, Daily escitalopram (LEXAPRO) 5 MG tablet 1 tablet, Daily ferrous sulfate 324 (65 Fe) MG tablet delayed-release EC tablet 1 tablet, Every 48 Hours Scheduled [Paused] furosemide (LASIX) 80 mg, Oral, 2 Times Daily, Take AM dose and then PM dose is as needed based on weight gain >3lbs gabapentin (NEURONTIN) 300 MG capsule Take one capsule by mouth in the morning and two capsules at night glucose blood (Contour Next Test) test strip Use BID; ICD-10 E11.65; Z79.4 insulin NPH-insulin regular (humuLIN 70/30,novoLIN 70/30) (70-30) 100 UNIT/ML injection 15 Units, Subcutaneous, 2 Times Daily With Meals Jardiance 10 MG tablet tablet 1 tablet, Daily omeprazole (PRILOSEC) 20 mg, Oral, Daily polyethylene glycol (MIRALAX) pack packet 17 g, Daily predniSONE (DELTASONE) 5 mg, Daily simvastatin (ZOCOR) 40 mg, Oral, Nightly tamsulosin (FLOMAX) 0.4 MG capsule 24 hr capsule 1 capsule, Daily vitamin B-12 (CYANOCOBALAMIN) 1,000 mcg, Daily Return in about 6 months (around 06/19/2025) for Recheck with A1c, CMP, lipid, TSH, microalbumin, foot exam. Electronically signed by: Daniel Vasquez MD 12/19/2024 documented in this encounter Plan of Treatment Upcoming Encounters Date Type Department Care Team (Late st Contact Info) Description 06/19/2025 8:45 AM EDT Office Visit [facility] [address] [phone] Daniel Vasquez MD [address] [facility] [address] [place] [address] documented as of this encounter Procedures Procedure Name Priority Date/Time Associated Diagnosis Comments POCT GLYCOSYLATED HEMOGLOBIN (HGB A1C) Routine 12/19/2024 11:18 AM EDT Uncontrolled type 2 diabetes mellitus with hyperglycemia POCT GLUCOSE, BLD (NON STRIP) Routine 12/19/2024 11:15 AM EDT Uncontrolled type 2 diabetes mellitus with hyperglycemia documented in this encounter Results * (ABNORMAL) POC Glycosylated Hemoglobin (Hb A1C) (12/19/2024 11:18 AM EDT) Hemoglobin A1C 7.7(A) 4.5 - 5.7 % [facility] Lot Number [id number] [facility] Expiration Date 07/27/2026 [facility] Blood 12/19/2024 11:1 8 AM EDT Daniel Vasquez MD POINT OF CARE TEST ORDERA BLES Final Result [facility]
[address] [place] [address], * (ABNORMAL) POC Glucose, Blood (12/19/2024 11:15 AM EDT) Glucose 196(A) 70 - 130 mg/dL Lot Number [id number] Expiration Date 05/14/2025 Blood 12/19/2024 11:1 5 AM EDT Daniel Vasquez MD POINT OF CARE TEST ORDERA BLES Final Result documented in this encounter Visit Diagnoses Diagnosis Uncontrolled type 2 diabetes mellitus with hyperglycemia- Primary Primary hypertension Unspecified essential hypertension Mixed hyperlipidemia Coronary artery disease involving port gamble coronary artery of port gamble heart without angina pectoris documented in this encounter Care Teams [employer] Membership Sales Agent Relationship Specialty Start Date End Date Christopher Yadav MD [address] [facility] [address] [place] [address] PCP - General Internal Medicine 07/27/23 documented as of this encounter
--- OUTSIDE RECORDS SUMMARY | 2024-12-26 13:35 | XMS_ITS | Encounter Summary ---
Author Organization [facility] ([place], [place], [place], [place], [place]) Address [address] [place] [address] Care Team Providers Care Sash Clamp Operator Name Role Phone Christopher Yadav MD Primary Care Provider [phone] Reason for Visit * Reason Comments Follow-up Prostate Cancer Encounter Details Date Type Department Care Team ([facility] st Contact Info) Description 12/26/2024 2:35 PM EDT Office Visit [facility] - [address] [place] [address] Arnol Courtney MD [address] [facility] [address] [place] [address] Prostate cancer (HCC) (Primary Dx) [...] Date Ehsan rded Speak language other than Malay at home Not on file 03/11/2023 Want [...] Surgeon: Eric Parkinson MD; Location: [facility]; Service: Orthopaedic Surgery; Laterality: Left; EXACTECH, HANA TABLE, C-ARM & PRINTER, CELL SAVER COLONOSCOPY multiple CORONARY ANGIOPLASTY WITH STENT PLACEMENT EYE SURGERY Bilateral catract extraction MANDIBLE SURGERY WY BX PROSTATE STRTCTC SATURATION SAMPLING IMG GID N/A 08/16/2023 Procedure: BIOPSY, PROSTATE, PERINEAL APPROACH; Surgeon: Samuel Mata MD; Location: [facility]; Service: Urology; Laterality: N/A; [facility] [id number] Cancer History: Oncology History Prostate cancer (HCC) [...] Treatment Summary Treatment goal Palliative Plan Name [facility] Prostate - leuprolide 22.5 mg (Eligard) every [...] Children, or Individuals on Testosterone-Suppressing Hormone Therapy) ([facility] test code [id number]). Free or bioavailable testosterone measurements may provide supportive information. For individuals on testosterone hormone therapy, refer to cisgender male reference intervals. No reference intervals have been established for males younger than 14 years or for cisgender females. For a complete set of all established reference intervals, refer to ltd[employer]/Tests/Pub/[id number]. Performed By: [facility] [address] [place] [address] Spindle Repairer: Cameron Javier MD, PhD CLIA Number: [id number] No results found. Cancer Staging Prostate cancer [...] Description 03/27/2025 3:00 PM EST Office Visit [facility] - [address] [place] [address] Arnol Courtney MD [address] [facility] [place] [address] Scheduled Orders Name Type Priority Associated Diagnoses Orde r Schedule CBC with automated diff Lab Routine Prostate cancer (HCC) Expected: 03/27/2025, Expires: 06/25/2025 Vitamin B12 Lab Routine Prostate cancer (HCC) Expected: 03/27/2025, Expires: 06/25/2025 Folate Lab Routine Prostate cancer (HCC) Expected: 03/27/2025, Expires: 06/25/2025 PSA ([place], LUCIA, [place], [place], [facility]) Lab Routine Prostate cancer (HCC) Expected: 03/27/2025, Expires: 01/26/2026 Testosterone Free And Total, Adult Male(SENDOUT) Lab Routine Prostate cancer (HCC) Expected: 03/27/2025, Expires: 06/25/2025 documented as of this encounter Visit Diagnoses Diagnosis Prostate cancer (HCC)- Primary Malignant neoplasm of prostate documented in this encounter Care Teams Sash Clamp Operator Relationship Specialty Start Date End Date Christopher Yadav MD [address] [place] [address] PCP - General General Internal Medicine 03/15/23 documented as of this encounter
--- OUTSIDE RECORDS SUMMARY | 2025-01-01 14:28 | XMS_ITS | Encounter Summary ---
Author Organization [employer] ([place], [place], [place], [place], [place]) Address [address] [place] [address] Care Team Providers Care Hospice Office Coordinator Name Role Phone Christopher Yadav MD Primary Care Provider [phone] Encounter Details Date Type Department Care Team (Latest Contact Info) Description 12/06/2024 Travel Social History Tobacco Use Types Packs/Day [...] Date Ehsan rded Speak language other than Nepalese at home Not on file 03/11/2023 Want [...] of Assessment Author No 03/24/2023 8:05 AM Julaina Poe RN * Do you have serious [...] Description 03/27/2025 3:00 PM EST Office Visit [facility] - [address] [place] [address] Arnol Courtney MD [address] [facility] [address] [place] [address] documented as of this encounter Visit Diagnoses Not on filedocumented in this encounter Care Teams Hospice Office Coordinator Relationship Specialty Start Date End Date Christopher Yadav MD [address] [place] [address] [place] [address] PCP - General General Internal Medicine 03/15/23 documented as of this encounter
--- OUTSIDE RECORDS SUMMARY | 2025-01-01 14:28 | XMS_ITS | Encounter Summary ---
Author Organization [facility] Address [address] [place] [address] Care Team Providers Care Chief Librarian Music Department Name Role Phone Christopher Yadav MD Primary Care Provider [phone] Encounter Details Date Type Department Care Team (Latest Contact Info) Description 12/19/2024 Travel Social History Tobacco Use Types Packs/Day Years Used Date Smoking Tobacco: Former Smokeless Tobacco: Never Comments:quit 1980 Alcohol Use Standard Drinks/Week Comments No 0 (1 standard drink = 0.6 oz pur e alcohol) [facility] Utilities Answer Date Recorded In the past 12 months has [employer] electric, gas, oil, or water company threatened to shut off services in your [...] GED or equivalent No 10/30/2024 Preferred Language Japanese 10/30/2024 Sex and Gender Information Value Date Recorded Sex Assigned at Not on file Legal Sex Male 1:45 PM EDT Gender Identity Not on file Sexual Orientation Not on file documented as of this encounter Plan of Treatment Upcoming Encounters Date Type Department Care Team (Late st Contact Info) Description 06/19/2025 8:45 AM EDT Office Visit [facility] [address] [address] Daniel Vasquez MD [address] [address] documented as of this encounter Visit Diagnoses Not on filedocumented in this encounter Care Teams Chief Librarian Music Department Relationship Specialty Start Date End Date Christopher Yadav MD [address] [facility] [address] [facility] [address] [place] [address] PCP - General Internal Medicine 07/27/23 documented as of this encounter
--- OUTSIDE RECORDS SUMMARY | 2025-01-01 14:28 | XMS_ITS | Encounter Summary ---
Author Organization Healthcare Address [address] [place] [address] Care Team Providers Care Dynamo Tender Name Role Phone Christopher Yadav MD Primary Care Provider [phone] Encounter Details Date Type Department Care Team (Late st Contact Info) Description 07/27/2023 Orders Only External Location [address] [place] [address] Provider, External Social History Tobacco Use Types [...] on filedocumented in this encounter Care Teams Dynamo Tender Relationship Specialty Start Date End Date Christopher Yadav MD [address] [place] [address] PCP - General 07/11/20 documented as of this encounter
--- OUTSIDE RECORDS SUMMARY | 2025-01-01 14:28 | XMS_ITS | Encounter Summary ---
Author Organization [facility] Address [address] [place] [address] Care Team Providers Care Sweatband Shaper Name Role Phone Christopher Yadav MD Primary Care Provider [phone] Encounter Details Date Type Department Care Team (Late st Contact Info) Description 11/01/2024 Readmission Management [facility] [address] [place] [address] Farrukh Davalos, RN Social History Tobacco Use Types Packs/Day Years Used Date Smoking Tobacco: Former Smokeless Tobacco: Never Comments:quit 1980 Alcohol Use Standard Drinks/Week Comments No 0 (1 standard drink = 0.6 oz pur e alcohol) [facility] Utilities Answer Date Recorded In the past 12 months has e electric, gas, oil, or water company threatened [...] GED or equivalent No 10/30/2024 Preferred Language Ethiopian 10/30/2024 Sex and Gender Information Value Date Recorded Sex Assigned at Not on file Legal Sex Male 1:45 PM EDT Gender Identity Not on file Sexual Orientation Not on file documented as of this encounter Miscellaneous Notes * Outreach Note - Farrukh Davalos RN - 11/01/2024 8:03 PM EDT Prep Survey Flowsheet Row Responses Islam facility patient discharged from? [facility] Is LACE score less than 10 ? No Eligibility Readm Mgmt Discharge diagnosis acute exacerbatin of CHF Does the patient have one of the following disease processes/diagnoses(primary or secondary)? CHF Does the patient have Home health ordered? Yes What is the Home health agency? [facility] Is there a DME ordered? No Prep survey completed? Yes FARRUKH Enriquez - Registered Nurse documented in this encounter Plan of Treatment Upcoming Encounters Date Type Department Care Team (Late st Contact Info) Description 06/19/2025 8:45 AM EDT Office Visit [facility] [address] [facility] [address] [place] [address] Daniel Vasquez MD [address] [facility] [address] [place], [place] [id number] documented as of this encounter Visit Diagnoses Not on filedocumented in this encounter Care Teams Sweatband Shaper Relationship Specialty Start Date End Date Christopher Yadav MD [address] [facility] [address] [place] [address] PCP - General Internal Medicine 07/27/23 documented as of this encounter
--- OUTSIDE RECORDS SUMMARY | 2025-01-01 14:28 | XMS_ITS | Encounter Summary ---
Author Organization Healthcare Address [address] [place] [address] Care Team Providers Care Chart Writer Name Role Phone Christopher Yadav MD Primary Care Provider [phone] Encounter Details Date Type Department Care Team (Late st Contact Info) Description 07/27/2023 Orders Only External Location [address] [place] [address] Provider, External Social History Tobacco Use Types [...] on filedocumented in this encounter Care Teams Chart Writer Relationship Specialty Start Date End Date Christopher Yadav MD [address] [facility] [address] [place] [address] PCP - General 07/11/20 documented as of this encounter
--- OUTSIDE RECORDS SUMMARY | 2025-01-01 14:28 | XMS_ITS | Encounter Summary ---
Author Organization Healthcare Address [address] [place] [address] Care Team Providers Care Exercise Teacher Name Role Phone Christopher Yadav MD Primary Care Provider [phone] Encounter Details Date Type Department Care Team (Late st Contact Info) Description 07/27/2023 Orders Only External Location [address] [place] [address] Provider, External Social History Tobacco Use Types [...] on filedocumented in this encounter Care Teams Exercise Teacher Relationship Specialty Start Date End Date Christopher Yadav MD [address] [facility] [address] [place] [address] PCP - General 07/11/20 documented as of this encounter
--- OUTSIDE RECORDS SUMMARY | 2025-01-01 14:28 | XMS_ITS | Encounter Summary ---
Author Organization [employer] ([place], [place], [place], [place], [place]) Address [address] [place] [address] Care Team Providers Care Park Activities Coordinator Name Role Phone Christopher Yadav MD Primary Care Provider [phone] Encounter Details Date Type Department Care Team (Late st Contact Info) Description 03/26/2024 Outside Orders [facility] Admitting [address] [place] [address] Jero Vale MD [address] [place] [address] [address] [place], [place] [id number] Anemia (Primary Dx); Secondary hyperparathyroidism of renal [...] Ehsan rded Speak language other than South Korean at home Not on file 03/11/2023 [...] Description 03/27/2025 3:00 PM EST Office Visit [facility] - [address] [place] [address] Arnol Courtney MD [address] [address] documented as of this encounter Results * (ABNORMAL) CBC with automated diff (03/26/2024 9:26 AM EST) WBC 9.4 4.8 - 10.8 K/ L 03/26/2024 9:55 AM [facility] RBC 3.16(L) 3.80 - 5.20 M/ L 03/26/2024 9:55 AM [facility] Hemoglobin 10.6(L) 12.8 - 17.4 GM/DL 03/26/2024 9:55 AM [facility] Hematocrit 32.8(L) 39.0 - 51.0 % 03/26/2024 9:55 AM [facility] MCV 104(H) 81 - 101 fL 03/26/2024 9:55 AM [facility] MCH 33.5 27.0 - 34.0 pg 03/26/2024 9:55 AM [facility] MCHC 32.3 32.0 - 36.0 GM/DL 03/26/2024 9:55 AM [facility] RDW 14.8(H) 11.5 - 14.5 % 03/26/2024 9:55 AM [facility] Platelets 252 150 - 400 K/CU MM 03/26/2024 9:55 AM [facility] MPV 9.4 9.4 - 12.4 fL 03/26/2024 9:55 AM [facility] Nucleated Red Blood Cell 0.0 0 - 0.2 % 03/26/2024 9:55 AM [facility] % Neutros 73 37 - 80 % 03/26/2024 9:55 AM [facility] % Lymphs 19 10 - 50 % 03/26/2024 9:55 AM [facility] % Monos 7 5 - 13 % 03/26/2024 9:55 AM [facility] % Eos 0 0 - 7 % 03/26/2024 9:55 AM [facility] % Baso 0 0 - 3 % 03/26/2024 9:55 AM EST [facility] NRBC Absolute <0.01 0 - 0.012 K/ul 03/26/2024 9:55 AM EST [facility] # Neutros 6.82 2.00 - 6.90 K/ L 03/26/2024 9:55 AM EST [facility] # Lymphs 1.78 0.60 - 3.40 K/ L 03/26/2024 9:55 AM EST [facility] # Monos 0.66 0.00 - 0.90 K/ L 03/26/2024 9:55 AM EST [facility] # Eos 0.04 0.00 - 0.70 K/ L 03/26/2024 9:55 AM EST [facility] # Baso 0.02 0.00 - 0.20 K/ L 03/26/2024 9:55 AM EST [facility] % Imm Grans 0.50 % 03/26/2024 9:55 AM EST [facility] # IG 0.05(H) 0.00 - 0.00 K/uL 03/26/2024 9:55 AM [facility] Blood Venipuncture / Unknown 03/26/2024 9:26 AM EST 03/26/2024 9:46 AM EST Narrative [facility] - 03/26/2024 9:55 AM EST [...] MD LAB BLOOD ORDERABLES Final Resu lt [facility] [address] [place] [address] * Parathyroid Hormone Intact(SENDOUT) (03/26/2024 9:26 AM EST) Parathyroid Hormone, Intact 62 15 - 65 pg/mL 03/27/2024 8:04 PM EST [facility] Comment: Performed By: [facility] [address] [place] [address] Route Driver: Cameron Javier MD, PhD CLIA Number: [id number] Blood Venipuncture / Unknown 03/26/2024 9:26 AM EST 03/26/2024 9:46 AM EST Jero Vale MD LAB BLOOD ORDERABLES Final Resu lt Performing Organization Address [facility] Co de Phone Number [facility] [facility] [address] [place] [address], [facility] [phone] * Vitamin D, 25-Hydroxy (03/26/2024 9:26 AM EST) [facility] Vitamin D 25-Hydroxy 64.6 30 - 100, >100 Toxic ng/mL 03/26/2024 10:53 AM EST [facility] Blood Venipuncture / Unknown 03/26/2024 9:26 AM EST 03/26/2024 9:47 AM EST Narrative [facility] - 03/26/2024 10:53 AM EST <20 Deficient 20 to 29 Insufficient 30 to 100 Sufficient >100 Toxic Biotin supplements can cause clinically significant incorrect lab results. The FDA has seen an increase in the number of adverse events related to biotin interference with lab tests. Jero Vale MD LAB BLOOD ORDERABLES Final Resu lt [facility] [address] [phone] * Creatinine, random urine (03/26/2024 9:26 AM EST) Pathologist [facility] Creatinine, Ur 44 mg/dL 03/26/2024 10:31 AM EST [facility] Urine URINE SPECIMEN COLLECTION, CLEAN CATCH / Unknown 03/26/2024 9:26 AM EST 03/26/2024 9:45 AM EST Narrative [facility] - 03/26/2024 10:31 AM EST Reference Range: No Normals us Jero Vale MD URINE ORDERABLES Final Result Performing Organization Address City/[facility]/ZIP Co de Phone Number [facility] [address] [place] [address] * Protein, random urine (03/26/2024 9:26 AM EST) Protein, Urine 25 mg/dL 03/26/2024 10:31 AM EST [facility] Comment:No normal reference range established Urine URINE SPECIMEN COLLECTION, CLEAN CATCH / Unknown 03/26/2024 9:26 AM EST 03/26/2024 9:45 AM EST us Jero Vale MD URINE ORDERABLES Final Result Performing Organization Address [facility] Co de Phone Number [facility] [address] [place] [address] * (ABNORMAL) Urinalysis w/Microscopic (03/26/2024 9:26 AM EST) Color, UA Yellow 03/26/2024 10:03 AM EST [facility] Comment:This is a corrected result. Previous result was Straw on 03/26/2024 at 1002 EST Clarity, UA Hazy 03/26/2024 10:03 AM EST [facility] Comment:This is a corrected result. Previous result was Clear on 03/26/2024 at 1002 EST Specific [place], UA 1.015 1.002 - 1.030 03/26/2024 10:03 AM EST [facility] pH, UA 6.0 5.0 - 9.0 03/26/2024 10:03 AM EST [facility] Leukocytes, UA 1+(A) Negative 03/26/2024 10:03 AM EST [facility] Nitrite, UA Negative Negative 03/26/2024 10:03 AM EST [facility] Protein, UA Negative Negative 03/26/2024 10:03 AM [facility] Glucose, UA Negative Negative 03/26/2024 10:03 AM [facility] Ketones, UA Negative Negative 03/26/2024 10:03 AM [facility] Urobilinogen, UA 0.2 mg/dL Normal 03/26/2024 10:03 AM [facility] Bilirubin, UA Negative Negative 03/26/2024 10:03 AM [facility] Blood, UA 3+(A) Negative 03/26/2024 10:03 AM [facility] RBC, UA Too Numerous To Count(A) None Seen, Rare /HPF 03/26/2024 10:03 AM [facility] WBC, UA 10-20(A) None Seen, Occasional , 0-5 /HPF 03/26/2024 10:03 AM [facility] Bacteria, UA Trace(A) None Seen 03/26/2024 10:03 AM [facility] Mucus Trace Trace 03/26/2024 10:03 AM [facility] SQUAMOUS EPITHELIAL Occasional( A) None Seen, Rare /HPF 03/26/2024 10:03 AM [facility] HYALINE CASTS Occasional( A) None Seen, Rare /LPF 03/26/2024 10:03 AM [facility] Specimen Source Urine, Clean Catch 03/26/2024 10:03 AM [facility] Urine URINE SPECIMEN COLLECTION, CLEAN CATCH / Unknown 03/26/2024 9:26 AM EST 03/26/2024 9:45 AM EST Jero Vale MD URINE ORDERABLES Edited Result - Final [facility] [address] [place] [id number] [phone] * (ABNORMAL) Renal Function Panel (03/26/2024 9:26 AM EST) Sodium 141 136 - 145 meq/L 03/26/2024 3:07 PM [facility] Potassium 4.1 3.5 - 5.1 meq/L 03/26/2024 3:07 PM [facility] Chloride 100 98 - 107 meq/L 03/26/2024 3:07 PM [facility] CO2 34(H) 21 - 32 meq/L 03/26/2024 3:07 PM [facility] Creatinine 1.81(H) 0.70 - 1.20 mg/dL 03/26/2024 3:07 PM [facility] Anion Gap 11 11 - 22 03/26/2024 3:07 PM [facility] BUN 42(H) 7 - 18 mg/dL 03/26/2024 3:07 PM [facility] Glucose 145(H) 70 - 99 mg/dL 03/26/2024 3:07 PM [facility] Calcium 9.3 8.5 - 10.1 mg/dL 03/26/2024 3:07 PM [facility] Phosphorus 4.3 2.6 - 4.9 mg/dL 03/26/2024 3:07 PM [facility] Albumin 3.6 3.4 - 5.0 g/dL 03/26/2024 3:07 PM [facility] Osmolality Calc 294.3 3:07 PM [facility] eGFR (mL/min/1.73m2) 36(L) >=60 mL/min/1.7 3m2 03/26/2024 3:07 PM [facility] Comment:ESTIMATED GFR IS NOT ACCURATE CREATININE CLEARANCE IN PREDICTING GLOMERULAR FILTRATION RATE. ESTIMATED GFR IS NOT APPLICABLE FOR DIALYSIS PATIENTS. Blood Venipuncture / Unknown 03/26/2024 9:26 AM EST 03/26/2024 9:47 AM EST us Jero Vale MD LAB BLOOD ORDERABLES Final Resu lt [facility] [address] [place] [address], [facility] [phone] documented in this encounter Visit Diagnoses Diagnosis Anemia- Primary Unspecified anemia Secondary hyperparathyroidism of renal origin (HCC) Secondary hyperparathyroidism (of renal origin) Chronic kidney disease (CKD) stage G3b/A1, moderately decreased glomerular filtration rate (GFR) between 30-44 mL/min/1.73 square meter and albuminuria creatinine ratio less than 30 mg/g (HCC) documented in this encounter Care Teams Park Activities Coordinator Relationship Specialty Start Date End Date Christopher Yadav MD [address] [place] [address] PCP - General General Internal Medicine 03/15/23 documented as of this encounter
--- OUTSIDE RECORDS SUMMARY | 2025-01-01 14:28 | XMS_ITS | Encounter Summary ---
Author Organization Healthcare Address [address] [place] [address] Care Team Providers Care Needle Punch Operator Name Role Phone Christopher Yadav MD Primary Care Provider [phone] Encounter Details Date Type Department Care Team (Late st Contact Info) Description 2023 Lab Requisition [facility] [address] [place] [address] Jamil Maynard MD [address] [facility] [address] [place] [id number] Elevated prostate specific antigen (PSA) Social History [...] EDT) Case Report Sugical Pathology Consult Case: [id number] Authorizing Provider: Jamil Maynard MD Collected: 2023 1312 Ordering Location: [facility] Lab Received: 2023 1312 Pathologist: Donna Villalobos MD Specimen: Prostate, [id number] 08/25/2023 10:39 AM EDT [facility] Final Diagnosis PROSTATE, NEEDLE CORE BIOPSIES (REVIEW OF OUTSIDE SLIDES LABELED SM [id number], PROCEDURE DATE 08/16/2023). A. PROSTATE, RIGHT POSTERIOR [...] OF 1 CORE. 08/25/2023 10:39 AM EDT [facility] at 1038 EDT Comment Perineural invasion is identified. Cribriform pattern 4 is also seen. 08/25/2023 10:39 AM EDT [facility] Clinical Information R97.20 - Elevated prostate specific antigen (PSA) [ICD-10-CM] 08/25/2023 10:39 AM EDT [facility] Gross Description A. [id number] Received along with a corresponding pathology report from [facility] are 8 slides labeled outside case: [id number] collected on 08/16/2023. 08/25/2023 10:39 AM EDT [facility] Intradepartmental Consultation with Agreement Kely Ghotra MD 08/25/2023 10:39 AM EDT [facility] Tissue Prostate / Unknown 1:12 PM EDT 2023 1:12 PM EDT us Jamil Maynard MD LAB PATHOLOGY ORDERABLES Savanah lucas Result [facility] [address] [place] [address] documented in this encounter Visit Diagnoses Diagnosis Elevated prostate specific antigen (PSA) documented in this encounter Care Teams Needle Punch Operator Relationship Specialty Start Date End Date Christopher Yadav MD [address] [place] [address] [address] [place] [address] PCP - General 07/11/20 documented as of this encounter
--- OUTSIDE RECORDS SUMMARY | 2025-01-01 14:28 | XMS_ITS | Encounter Summary ---
Author Organization [employer] ([place], [place], [place], [place], [place]) Address [address] [place] [address] Care Team Providers Care Assisted Living Nursing Director Name Role Phone Christopher Yadav MD Primary Care Provider [phone] Encounter Details Date Type Department Care Team (Latest Contact Info) Description 12/26/2024 Travel Social History Tobacco Use Types Packs/Day [...] Date Ehsan rded Speak language other than Palauan at home Not on file 03/11/2023 Want [...] Description 03/27/2025 3:00 PM EST Office Visit [facility] - [address] [place] [address] Arnol Courtney MD [address] [facility] [address] [place] [address] documented as of this encounter Visit Diagnoses Not on filedocumented in this encounter Care Teams Assisted Living Nursing Director Relationship Specialty Start Date End Date Christopher Yadav MD [address] [place] [address] [place] [address] PCP - General General Internal Medicine 03/15/23 documented as of this encounter
--- OUTSIDE RECORDS SUMMARY | 2025-01-01 14:29 | XMS_ITS | Referral Summary ---
Author Organization [employer] ([place], [place], [place], [place], [place]) Address [address] [place] [address] Care Team Providers Care Glue Jointer Feeder Name Role Phone Christopher Yadav MD Primary Care Provider [phone] Encounters Date Type Department Care Team Description 12/26/2024 Travel 12/26/2024 2:35 PM EDT Office Visit [facility] - [place] [address] [facility] [address] [place] [address] Arnol Courtney MD Prostate cancer (HCC) (Primary Dx) 12/06/2024 Travel 12/06/2024 10:30 AM EDT Lab Patient [facility] [address] [place] [address] Xochitl Serra MD Prostate cancer (HCC); Renal dysfunction from Last 3 Months Allergies No known active allergies Medications insulin 70/30, insulin NPH-insulin regular, (HumuLIN 70/30) 100 unit/mL (70-30) injection Inject 58 Units under the skin Dosing according to Blood Glucose level 48 units AM 22-28 units PM. 4 Active gabapentin (NEURONTIN) 300 MG capsule 1 capsule in the morning and 2 capsules at night Active allopurinoL (ZYLOPRIM) 100 MG tablet Take 1 tablet (100 mg total) by mouth daily. 3 Active simvastatin (ZOCOR) 40 MG tablet Take 1 tablet (40 mg total) by mouth nightly. 3 Active calcitrioL (ROCALTROL) 0.25 MCG capsule Take 1 capsule (0.25 mcg total) by mouth 3 (three) times a week MON/WED/FRI. 4 Active tamsulosin (FLOMAX) 0.4 mg Cap 24 hr capsule SMARTSI Capsule(s) By Mouth Every Evening 4 Active clopidogreL (PLAVIX) 75 mg tablet Take 1 tablet (75 mg total) by mouth daily. Active Eliquis 5 MG tablet Take 0.5 tablets (2.5 mg total) by mouth 2 (two) times daily. Active carvediloL (COREG) 3.125 MG tablet Take 1 tablet (3.125 mg total) by mouth 2 (two) times daily. Active cholecalciferol , vitamin D3, 50 mcg (2,000 unit) cap daily. 5 Active cyanocobalamin 1000 MCG tablet Take 1 tablet (1,000 mcg total) by mouth daily. Active acetaminophen (TYLENOL) 325 MG tablet Take 2 tablets (650 mg total) by mouth every 6 (six) hours as needed for pain. Active pantoprazole (PROTONIX) 40 MG tablet Take 1 tablet (40 mg total) by mouth Daily (0600). Active empagliflozin (Jardiance) 10 mg tablet Take 1 tablet (10 mg total) by mouth daily. Active escitalopram (LEXAPRO) 5 MG tablet Take 1 tablet (5 mg total) by mouth daily. Active predniSONE (DELTASONE) 5 MG tablet Take 1 tablet (5 mg total) by mouth daily with breakfast Look-alike/ Sound-alike medication. Active polyethylene glycol (MIRALAX) 17 gram/dose powder Take 17 g by mouth daily. Active amLODIPine (NORVASC) 5 MG tablet Take 1 tablet (5 mg total) by mouth daily. 3 12/27/19 Discontinu ed(Per Patient: Not Taking) furosemide (LASIX) 20 MG tablet Take 2 tablets (40 mg total) by mouth daily. 3 12/27/19 Discontinu ed(Per Patient: Not Taking) famotidine (PEPCID) 20 MG tablet Take 1 tablet (20 mg total) by mouth daily. 4 12/27/19 Discontinu ed(Per Patient: Not Taking) hydrALAZINE (APRESOLINE) 10 MG tablet Take 1 tablet (10 mg total) by mouth 2 (two) times daily. 4 12/27/19 Discontinu ed(Per Patient: Not Taking) aspirin 81 MG EC tablet Take 1 tablet (81 mg total) by mouth daily. 12/27/19 Discontinu ed(Per Patient: Not Taking) coenzyme Q10 100 mg capsule Take 1 capsule (100 mg total) by mouth daily. 12/27/19 Discontinu ed(Per Patient: Not Taking) sulfamethoxazol e-trimethoprim (Bactrim DS) 800-160 mg per tabletIndicatio ns:Urinary tract infection without hematuria, site unspecified Take 1 tablet by mouth 2 (two) times daily. 6 tablet 5 12/27/19 Discontinu ed(Per Patient: Not Taking) busPIRone (BUSPAR) 10 MG tablet 12/27/19 Discontinu ed(Per Patient: Not Taking) Active Problems Problem Noted Date Diagnosed Date [...] Cigarettes Q uit: 1983 Smokeless Tobacco: Never Tobacco Cessation:Counseling Given: Not [...] Description 03/27/2025 3:00 PM EST Office Visit [facility] - [address] [place] [address] Arnol Courtney MD [facility] [address] [address] Medical Devices Implanted Type Area Warehouse Loader Device Identifier Shelf Expiration Date Model / Serial / Lot Stents-Machado ry Stents-Coron maribel Heart Head Fem Delta 36mm +0mm - [id number] Implanted:Qty : 1 on 03/21/2023 by Eric Parkinson MD at [facility] [employer] Left: Hip EX[employer]ECH [id number] 05/31/2027 / [id number] / Stem Fem Pf Sz9 113mm - [id number] Implanted:Qty : 1 on 03/21/2023 by Eric Parkinson MD at [facility] [employer] Left: Hip [employer] [id number] 10/03/2027 / [id number] / Liner Ntrl Altn Xle Grp6 36mm [id number] - [id number] Implanted:Qty : 1 on 03/21/2023 by Eric Parkinson MD at [facility] [employer] Left: Hip EX[employer]ECH [id number] 03/17/2027 -0636 / [id number] / Cup Clstr-Hole Altn Pcg6 54mm [id number] - [id number] Implanted:Qty : 1 on 03/21/2023 by Eric Parkinson MD at [facility] [employer] Left: Hip EX[employer]CH [id number] 10/25/20320654 / [id number] / Procedures Procedure Name Priority Date/Time Associated Diagnosis Comments TESTOSTERONE, ADULT MALE(SENDOUT) Routine 12/06/2024 10:35 AM EDT Prostate cancer (HCC) Renal dysfunction PSA Routine 12/06/2024 10:35 AM EDT Prostate cancer (HCC) Renal dysfunction COMPREHENSIVE METABOLIC PANEL Routine 12/06/2024 10:35 AM EDT Prostate cancer (HCC) Renal dysfunction CBC W/ AUTO DIFF Routine 12/06/2024 10:3 5 AM EDT Prostate cancer (HCC) Renal dysfunction HEMOGLOBIN A1C Routine 03/15/2023 11:20 AM EST Preop examination from Last 3 Months or Most Recently Relevant to Health Maintenance Results * (ABNORMAL) CBC with Diff (12/06/2024 10:35 AM EDT) WBC 7.8 4.8 - 10.8 K/ L 12/06/2024 10:47 AM EDT [facility] RBC 3.15(L) 3.80 - 5.20 M/ L 12/06/2024 10:47 AM EDT [facility] Hemoglobin 10.4(L) 12.8 - 17.4 GM/DL 12/06/2024 10:47 AM EDT [facility] Hematocrit 32.4(L) 39.0 - 51.0 % 12/06/2024 10:47 AM EDT [facility] MCV 103(H) 81 - 101 fL 12/06/2024 10:47 AM EDT [facility] MCH 33.0 27.0 - 34.0 pg 12/06/2024 10:47 AM EDT [facility] MCHC 32.1 32.0 - 36.0 GM/DL 12/06/2024 10:47 AM EDT [facility] RDW 15.4(H) 11.5 - 14.5 % 12/06/2024 10:47 AM EDT [facility] Platelets 176 150 - 400 K/CU MM 12/06/2024 10:47 AM EDT [facility] MPV 10.2 9.4 - 12.4 fL 12/06/2024 10:47 AM EDT [facility] Nucleated Red Blood Cell 0.0 0 - 0.2 % 12/06/2024 10:47 AM EDT [facility] % Neutros 71 37 - 80 % 12/06/2024 10:47 AM EDT [facility] % Lymphs 19 10 - 50 % 12/06/2024 10:47 AM EDT [facility] % Monos 9 5 - 13 % 12/06/2024 10:47 AM EDT [facility] % Eos 1 0 - 7 % 12/06/2024 10:47 AM EDT [facility] % Baso 0 0 - 3 % 12/06/2024 10:47 AM EDT [facility] NRBC Absolute <0.01 0 - 0.012 K/ul 12/06/2024 10:47 AM EDT [facility] # Neutros 5.50 2.00 - 6.90 K/ L 12/06/2024 10:47 AM EDT [facility] # Lymphs 1.50 0.60 - 3.40 K/ L 12/06/2024 10:47 AM EDT [facility] # Monos 0.67 0.00 - 0.90 K/ L 12/06/2024 10:47 AM EDT [facility] # Eos 0.06 0.00 - 0.70 K/ L 12/06/2024 10:47 AM EDT [facility] # Baso 0.02 0.00 - 0.20 K/ L 12/06/2024 10:47 AM EDT [facility] % Imm Grans 0.30 % 12/06/2024 10:47 AM EDT [facility] # IG 0.02(H) 0.00 - 0.00 K/uL 12/06/2024 10:47 AM EDT [facility] Blood Venipuncture / Unknown 12/06/2024 10:35 AM EDT 12/06/2024 10:44 AM EDT Narrative [facility] - 12/06/2024 10:47 AM EDT [...] MD LAB BLOOD ORDERABLES Final Res ult [facility] [address] [place] [address] * (ABNORMAL) Testosterone, Adult Male(SENDOUT) (12/06/2024 10:35 AM EDT) Testosterone by Immunoassay <3(L) 300 - 720 ng/dL 12/07/2024 10:36 PM EDT [facility] Comment: INTERPRETIVE INFORMATION: Testosterone by Immunoassay Testosterone immunoassays are both imprecise and inaccurate at low testosterone concentrations, such as those found in children and cisgender females. For these individuals, testing by mass spectrometry is recommended; refer to Testosterone (Adult Females, Children, or Individuals on Testosterone-Suppressing Hormone Therapy) ([employer] test code 9660744). Free or bioavailable testosterone measurements may provide supportive information. For individuals on testosterone hormone therapy, refer to cisgender male reference intervals. No reference intervals have been established for males younger than 14 years or for cisgender females. For a complete set of all established reference intervals, refer to [employer]/Tests/Pub/[id number]. Performed By: [employer] [address] [place] [address] Cloth Tester Quality: Cameron Javier MD, PhD CLIA Number: [id number] Blood Venipuncture / Unknown 12/06/2024 10:35 AM EDT 12/06/2024 10:44 AM EDT Xochitl Serra MD LAB BLOOD ORDERABLES Final Res ult Performing Organization Address City/[facility] Co de Phone Number [facility] [address] [place] [address], [facility] [phone] * PSA ([facility], LUCIA, Conner, [place], [facility]) (12/06/2024 10:35 AM EDT) PSA Diagnostic <0.10 0.00 - 4.00 ng/mL 12/06/2024 3:02 PM EDT [facility] Comment:Portero Alinity i sarah miluminescent immunoassay was used to obtain results. Results determined by assays using different manufacturers or methods may not be comparable. Blood Venipuncture / Unknown 12/06/2024 10:35 AM EDT 12/06/2024 10:44 AM EDT Xochitl Serra MD LAB BLOOD ORDERABLES Final Res ult Performing Organization Address City/[facility]/ZIP Co de Phone Number [facility] [address] [phone] * (ABNORMAL) CMP (12/06/2024 10:35 AM EDT) Sodium 142 136 - 145 meq/L 12/06/2024 11:25 AM EDT [facility] Potassium 4.3 3.5 - 5.1 meq/L 12/06/2024 11:25 AM EDT [facility] Chloride 102 98 - 107 meq/L 12/06/2024 11:25 AM EDT [facility] CO2 32 21 - 32 meq/L 12/06/2024 11:25 AM EDT [facility] Calcium 8.6 8.5 - 10.1 mg/dL 12/06/2024 11:25 AM [facility] Glucose 157(H) 74 - 100 mg/dL 12/06/2024 11:25 AM [facility] BUN 32(H) 7 - 18 mg/dL 12/06/2024 11:25 AM [facility] Creatinine 2.09(H) 0.70 - 1.20 mg/dL 12/06/2024 11:25 AM EDT [facility] BUN/Creatinine 15 12/06/2024 11:25 AM [facility] Albumin 3.4 3.4 - 5.0 g/dL 12/06/2024 11:25 AM [facility] Alkaline Phosphatase 96 46 - 116 U/L 12/06/2024 11:25 AM [facility] ALT 10(L) 12 - 78 U/L 12/06/2024 11:25 AM [facility] AST 11(L) 15 - 37 U/L 12/06/2024 11:25 AM [facility] Total Bilirubin 0.5 0.2 - 1.0 mg/dL 12/06/2024 11:25 AM [facility] Protein, Total 6.9 6.4 - 8.2 gm/dL 12/06/2024 11:25 AM [facility] Anion Gap 12 11 - 22 12/06/2024 11:25 AM [facility] A/G Ratio 1.0 12/06/2024 11:25 AM [facility] Globulin 3.5 g/dL 12/06/2024 11:25 AM [facility] Osmolality Calc 293.3 mOsm/kg 11:25 AM [facility] eGFR (mL/min/1.73m2) 30(L) >=60 mL/min/1.7 3m2 12/06/2024 11:25 AM [facility] Comment:ESTIMATED GFR IS NOT ACCURATE CREATININE CLEARANCE IN PREDICTING GLOMERULAR FILTRATION RATE. ESTIMATED GFR IS NOT APPLICABLE FOR DIALYSIS PATIENTS. Blood Venipuncture / Unknown 12/06/2024 10:35 AM EDT 12/06/2024 10:44 AM EDT Xochitl Serra MD LAB BLOOD ORDERABLES Final Res ult Performing Organization Address City/[facility]/ZIP Co de Phone Number [facility] [address] [place], [place] [address] [phone] * (ABNORMAL) Hemoglobin A1c (03/15/2023 11:20 AM EST) Hemoglobin A1C 6.5(H) 4.2 - 6.3 % 03/15/2023 12:24 PM EST [facility] Comment: Hemoglobin A1C levels are related to mean glucose during the preceding 2-3 months. Less than 7% demonstrates glycemic control in diabetic patients. Hemoglobin AlC % Suggested Diagnosis > or = 6.5 Diabetic 5.7 - 6.4 Prediabetic <5.7 Non-diabetic eAVG Glucose 139.85 mg/dL 03/15/2023 12:24 PM EST [facility] Blood Venipuncture / Unknown 03/15/2023 11:20 AM EST 03/15/2023 11:35 AM EST us Eric Parkinson MD LAB BLOOD ORDERABLES Fi nal Result Performing Organization Address City/[facility] Co de Phone Number [facility] [address] [phone] from Last 3 Months or Most Recently Relevant to Health Maintenance Insurance MEDICARE PART [place] [address] [facility] SUPP Advance Directives For more information, please contact: [phone] * Full Code (Latest Code Status on File) Date Activated Date Inactivated Comments 08/16/2023 10:48 AM 08/16/2023 7:35 PM * Full Code Date Activated Date Inactivated Comments 03/21/2023 11:25 AM 03/24/2023 3:00 PM * Full Code Date Activated Date Inactivated Comments 03/21/2023 5:18 AM 03/21/2023 11:25 AM Care Teams Glue Jointer Feeder Relationship Specialty Start Date End Date Christopher Yadav MD [address] [place] [phone] PCP - General General Internal Medicine 03/15/23
--- OUTSIDE RECORDS SUMMARY | 2025-01-01 14:29 | XMS_ITS | Clinical Summary ---
Author Organization [employer] ([place], [place], [place], [place], [place]) Address [address] [place] [address] Care Team Providers Care Insurance Consultant Name Role Phone Christopher Yaadv MD Primary Care Provider [phone] Allergies No known active allergies Medications insulin [...] Date Type Department Care Team Description 12/26/2024 2:35 PM EDT Office Visit [facility] [place] [address] [place] [address] Arnol Courtney MD Prostate cancer (HCC) (Primary Dx) 12/26/2024 Travel 12/06/2024 10:30 AM EDT Lab Patient Walk-In [facility] [address] [place] [address] Xochitl Serra MD Prostate cancer (HCC); Renal dysfunction 12/06/2024 Travel from Last 3 Months Family History [...] Date Ehsan rded Speak language other than Turkish at home Not on file 03/11/2023 Want [...] Description 03/27/2025 3:00 PM EST Office Visit [facility] - [address] [place] [address] Arnol Courtney MD [address] [place] [address] Health Maintenance Due Date Last Done Comments Diabetic Eye Exam 1948 Depression Screening (12+) 1950 Shingles Vaccine (Zoster) (1 of 2) 1988 Medicare Initial AWV G0438 07/30/2004 Respiratory Syncytial Virus (RSV) Adult or (1 - 1-dose 75+ series) 2013 DTAP/TDAP/TD VACCINES (3 - T d or Tdap) 02/28/2022 02/29/2012, 01/16/1998 Hemoglobin A1C 09/13/2023 03/15/2023 Falls Risk Screening 02/29/2024 COVID-19 VACCINE (7 - 2024-2 6 season) 2024 02/03/2023, 12/22/2021, 06/25/2021, Additional history exists Influenza Vaccine (#1) 2024 01/09/2024, 2022 Tobacco Cessation Counseling and Screening (12+) 12/26/2025 12/26/2024 Pneumococcal 50+ years Completed 7, 12/03/2015, 03/14/2013 Medical Devices Implanted Type Area Heating Element Repairer Device Identifier Shelf Expiration Date Model / Serial / Lot Stents-Machado ry Stents-Coron maribel Heart Head Fem Delta 36mm +0mm - [id number] Implanted:Qty : 1 on 03/21/2023 by Eric Parkinson MD at [facility] [employer] Left: Hip EX[employer]CH [id number] 05/31/2027 170 / [id number] / Stem Fem Pf Sz9 113mm [id number] Implanted:Qty : 1 on 03/21/2023 by Eric Parkinson MD at [facility] [employer] Left: Hip [employer] [id number] 10/03/2027 / [id number] / Liner Ntrl Altn Xle Grp6 36mm 6 - [id number] Implanted:Qty : 1 on 03/21/2023 by Eric Parkinson MD at [facility] [employer] Left: Hip EX[employer]CH [id number] 03/17/2027 / [id number] / Cup Clstr-Hole Altn Pcg6 54mm 54-657-74 4 - [id number] Implanted:Qty : 1 on 03/21/2023 by Eric Parkinson MD at [facility] [employer] Left: Hip [employer] [id number] 10/25/20320654 / [id number] / Procedures Procedure Name Priority Date/Time Associated [...] 10.8 K/ L 12/06/2024 10:47 AM EDT [facility] RBC 3.15(L) 3.80 - 5.20 M/ L 12/06/2024 10:47 AM EDT [facility] Hemoglobin 10.4(L) 12.8 - 17.4 GM/DL 12/06/2024 10:47 AM EDT [facility] Hematocrit 32.4(L) 39.0 - 51.0 % 12/06/2024 10:47 AM EDT [facility] MCV 103(H) 81 - 101 fL 12/06/2024 10:47 AM EDT [facility] MCH 33.0 27.0 - 34.0 pg 12/06/2024 10:47 AM EDT [facility] MCHC 32.1 32.0 - 36.0 GM/DL 12/06/2024 10:47 AM EDT [facility] RDW 15.4(H) 11.5 - 14.5 % 12/06/2024 10:47 AM EDT [facility] Platelets 176 150 - 400 K/CU MM 12/06/2024 10:47 AM EDT [facility] MPV 10.2 9.4 - 12.4 fL 12/06/2024 10:47 AM EDT [facility] Nucleated Red Blood Cell 0.0 0 - 0.2 % 12/06/2024 10:47 AM EDT [facility] % Neutros 71 37 - 80 % 12/06/2024 10:47 AM EDT [facility] % Lymphs 19 10 - 50 % 12/06/2024 10:47 AM EDT [facility] % Monos 9 5 - 13 % 12/06/2024 10:47 AM EDT [facility] % Eos 1 0 - 7 % 12/06/2024 10:47 AM EDT [facility] % Baso 0 0 - 3 % 12/06/2024 10:47 AM EDT [facility] NRBC Absolute <0.01 0 - 0.012 K/ul 12/06/2024 10:47 AM EDT [facility] # Neutros 5.50 2.00 - 6.90 K/ L 12/06/2024 10:47 AM EDT [facility] # Lymphs 1.50 0.60 - 3.40 K/ L 12/06/2024 10:47 AM EDT [facility] # Monos 0.67 0.00 - 0.90 K/ L 12/06/2024 10:47 AM EDT [facility] # Eos 0.06 0.00 - 0.70 K/ L 12/06/2024 10:47 AM EDT [facility] # Baso 0.02 0.00 - 0.20 K/ L 12/06/2024 10:47 AM EDT [facility] % Imm Grans 0.30 % 12/06/2024 10:47 AM EDT [facility] # IG 0.02(H) 0.00 - 0.00 K/uL 12/06/2024 10:47 AM EDT [facility] Blood Venipuncture / Unknown 12/06/2024 10:35 AM EDT 12/06/2024 10:44 AM EDT Narrative [facility] - 12/06/2024 10:47 AM [...] MD LAB BLOOD ORDERABLES Final Res ult [facility] [address] [place] [address] * (ABNORMAL) Testosterone, Adult Male(SENDOUT) (12/06/2024 10:35 AM EDT) Testosterone by Immunoassay <3(L) 300 - 720 ng/dL 12/07/2024 10:36 PM EDT [employer] Comment: INTERPRETIVE INFORMATION: Testosterone by Immunoassay Testosterone immunoassays are both imprecise and inaccurate at low testosterone concentrations, such as those found in children and cisgender females. For these individuals, testing by mass spectrometry is recommended; refer to Testosterone (Adult Females, Children, or Individuals on Testosterone-Suppressing Hormone Therapy) (Svpply test code [id number]). Free or bioavailable testosterone measurements may provide supportive information. For individuals on testosterone hormone therapy, refer to cisgender male reference intervals. No reference intervals have been established for males younger than 14 years or for cisgender females. For a complete set of all established reference intervals, refer to [email or web address]/Tests/Pub/[id number]. Performed By: [facility] [address] [place] [address] Prototype Machine Operator: Cameron Javier MD, PhD CLIA Number: [id number] Blood Venipuncture / Unknown 12/06/2024 10:35 AM EDT 12/06/2024 10:44 AM EDT Xochitl Serra MD LAB BLOOD ORDERABLES Final Res ult Performing Organization Address City/[facility]/ZIP Co de Phone Number [facility] [address] [phone] * PSA (Blazer, LUCIA, Maxwell, Scott, [facility]) (12/06/2024 10:35 AM EDT) PSA Diagnostic <0.10 0.00 - 4.00 ng/mL 12/06/2024 3:02 PM EDT [facility] Comment:[employer] Alinity i sarah miluminescent immunoassay was used to obtain results. Results determined by assays using different manufacturers or methods may not be comparable. Blood Venipuncture / Unknown 12/06/2024 10:35 AM EDT 12/06/2024 10:44 AM EDT Xochitl Serra MD LAB BLOOD ORDERABLES Final Res ult Performing Organization Address City/[facility]/ZIP Co de Phone Number [facility] [address] [phone] * (ABNORMAL) CMP (12/06/2024 10:35 AM EDT) Sodium 142 136 - 145 meq/L 12/06/2024 11:25 AM EDT [facility] Potassium 4.3 3.5 - 5.1 meq/L 12/06/2024 11:25 AM EDT [facility] Chloride 102 98 - 107 meq/L 12/06/2024 11:25 AM EDT [facility] CO2 32 21 - 32 meq/L 12/06/2024 11:25 AM EDT [facility] Calcium 8.6 8.5 - 10.1 mg/dL 12/06/2024 11:25 AM EDT [facility] Glucose 157(H) 74 - 100 mg/dL 12/06/2024 11:25 AM [facility] BUN 32(H) 7 - 18 mg/dL 12/06/2024 11:25 AM [facility] Creatinine 2.09(H) 0.70 - 1.20 mg/dL 12/06/2024 11:25 AM T [facility] BUN/Creatinine 15 12/06/2024 11:25 AM [facility] Albumin 3.4 3.4 - 5.0 g/dL 12/06/2024 11:25 AM [facility] Alkaline Phosphatase 96 46 - 116 U/L 12/06/2024 11:25 AM [facility] ALT 10(L) 12 - 78 U/L 12/06/2024 11:25 AM [facility] AST 11(L) 15 - 37 U/L 12/06/2024 11:25 AM [facility] Total Bilirubin 0.5 0.2 - 1.0 mg/dL 12/06/2024 11:25 AM [facility] Protein, Total 6.9 6.4 - 8.2 gm/dL 12/06/2024 11:25 AM [facility] Anion Gap 12 11 - 22 12/06/2024 11:25 AM [facility] A/G Ratio 1.0 12/06/2024 11:25 AM [facility] Globulin 3.5 g/dL 12/06/2024 11:25 AM [facility] Osmolality Calc 293.3 mOsm/kg 11:25 AM [facility] eGFR (mL/min/1.73m2) 30(L) >=60 mL/min/1.7 3m2 12/06/2024 11:25 AM [facility] Comment:ESTIMATED GFR IS NOT ACCURATE CREATININE CLEARANCE IN PREDICTING GLOMERULAR FILTRATION RATE. ESTIMATED GFR IS NOT APPLICABLE FOR DIALYSIS PATIENTS. Blood Venipuncture / Unknown 12/06/2024 10:35 AM EDT 12/06/2024 10:44 AM EDT us Xochitl Serra MD LAB BLOOD ORDERABLES Final Res ult [facility] [address] [phone] * (ABNORMAL) Hemoglobin A1c (03/15/2023 11:20 AM [...] Address City/[facility]/ZIP Co de Phone Number [facility] [address] [phone] from Last 3 Months or Most Recently Relevant to Health Maintenance Insurance MEDICARE [place] [address] [address] [address] SUPP Advance Directives For more information, please contact: [phone] * Full Code (Latest Code Status on File) Date Activated Date Inactivated Comments 08/16/2023 10:48 AM 08/16/2023 7:35 PM * Full Code Date Activated Date Inactivated Comments 03/21/2023 11:25 AM 03/24/2023 3:00 PM * Full Code Date Activated Date Inactivated Comments 03/21/2023 5:18 AM 03/21/2023 11:25 AM Care Teams Insurance Consultant Relationship Specialty Start Date End Date Christopher Yadav MD [address] [place] [address] PCP - General General Internal Medicine 03/15/23
--- OUTSIDE RECORDS SUMMARY | 2025-01-01 14:29 | XMS_ITS | Clinical Summary ---
[facility] Address [address] [place] [address] Care Team Providers Care Flatwork Feeder Name Role Phone Christopher Yadav MD Primary Care Provider [phone] Allergies No known active allergies Medications allopurinol (ZYLOPRIM) 100 MG tablet Take 1 tablet by mouth 2 (two) times a day. Morning and night Active clopidogrel (PLAVIX) 75 MG tablet Take 1 tablet by mouth Daily. Active vitamin B-12 (CYANOCOBALAMIN) 1000 MCG tablet Take 1 tablet by mouth Daily. Active polyethylene glycol (MIRALAX) pack packet Take 17 g by mouth Daily. Active acetaminophen (TYLENOL) 325 MG tablet Take 2 tablets by mouth Every 4 (Four) Hours As Needed for Mild Pain . 11/14/19 19 Active gabapentin (NEURONTIN) 300 MG capsule Take one capsule by mouth in the morning and two capsules at night Active glucose blood (Contour Next Test) test strip Use BID; ICD-10 E11.65; Z79.4 200 each 3 05/13/19 23 Active simvastatin (ZOCOR) 40 MG tablet Take 1 tablet by mouth Every Night. 05/13/19 23 Active tamsulosin (FLOMAX) 0.4 MG capsule 24 hr capsule Take 1 capsule by mouth Daily. Active calcitriol (ROCALTROL) 0.25 MCG capsule Take 1 capsule by mouth 3 (Three) Times a Week. Tuesday, Tuesday, Tuesday07/29/19 24 Active furosemide (LASIX) 40 MG tablet Take 2 tablets by mouth 2 (Two) Times a Day. Take AM dose and then PM dose is as needed based on weight gain >3lbs 09/04/19 24 Active predniSONE (DELTASONE) 5 MG tablet Take 1 tablet by mouth Daily. Active apixaban (ELIQUIS) 2.5 MG tablet tabletIndications: Atrial Fibrillation - requiring full anticoagulation Take 1 tablet by mouth Every 12 (Twelve) Hours. Indications: Atrial Fibrillation 60 tablet 11/02/19 25 Active carvedilol (COREG) 3.125 MG tablet Take 1 tablet by mouth 2 (Two) Times a Day With Meals. 60 tablet 11/02/19 25 Active Jardiance 10 MG tablet tablet Take 1 tablet by mouth Daily. 11/09/19 25 Active escitalopram (LEXAPRO) 5 MG tablet Take 1 tablet by mouth Daily. 11/29/19 25 Active omeprazole (priLOSEC) 20 MG capsule Take 1 capsule by mouth Daily. Active ferrous sulfate 324 (65 Fe) MG tablet delayed-release EC tablet Take 1 tablet by mouth Every Other Day. 12/18/19 25 Active insulin NPH-insulin regular (humuLIN 70/30,novoLIN 70/30) (70-30) 100 UNIT/ML injection Inject 15 Units under the skin into the appropriate area as directed 2 (Two) Times a Day With Meals. 27 mL 3 12/20/19 25 Active insulin NPH-insulin regular (humuLIN 70/30,novoLIN 70/30) (70-30) 100 UNIT/ML injection Inject 58 Units under the skin into the appropriate area as directed 2 (Two) Times a Day With Meals. 110 mL 1 05/19/19 25 025 Discontin ued(Reord er) Active Problems Problem Noted Date Diagnosed Date Acute exacerbation of CHF (congestive heart fail ure) 10/27/2024 Acute urinary retention 07/28/2023 Anemia 07/28/2023 Leg swelling 07/28/2023 Chronic kidney disease 01/07/2022 Assessment & Plan (05/18/2024 11:56 AM EDT): Continue nephrology follow up. Assessment & Plan (05/12/2022 12:10 PM EDT): Continue nephrology follow up. Assessment & Plan (01/07/2022 11:27 AM EST): Continue nephrology follow up. We suggested checking CMP today but he says ratings analyst is checking this regularly.. Type 2 diabetes [...] (coronary artery disease) 11/06/2018 Assessment & Plan (12/19/2024 11:30 AM EDT): Continue eliquis, plavix and statin. Assessment & Plan (05/18/2024 11:52 AM EDT): Continue ASA, plavix and statin. Assessment & Plan (03/08/2023 10:50 AM EST): Continue ASA, plavix, statin. Assessment & Plan (09/29/2022 11:13 AM EDT): Continue ASA, plavix and statin. Assessment & Plan (05/12/2022 12:19 PM EDT): Continue ASA and statin. Assessment & Plan (01/07/2022 11:13 AM EST): Continue ASA, plavix and statin. Hypertension 11/06/2018 Assessment & Plan (12/19/2024 11:31 AM EDT): SBP a bit elevated today but DBP low. Continue current meds. Montior BP at home. Assessment & Plan (05/18/2024 11:52 AM EDT): [...] (ARF) 11/06/2018 Hyperlipidemia 11/06/2018 Assessment & Plan (12/19/2024 11:31 AM EDT): Continue statin. Plan to check lipids next visit. Assessment & Plan (05/18/2024 11:52 AM EDT): [...] 11:27 AM EST): Continue statin. He says shot hole shooter is checking lipids. Assessment & Plan (08/12/2021 2:15 PM EDT): Continue statin. Assessment & Plan (10/30/2020 11:38 AM EDT): Continue statin. Assessment & Plan (06/18/2020 11:31 AM EDT): Continue statin. Uncontrolled type 2 diabetes mellitus with hyper glycemia 11/06/2018 Assessment & Plan (12/19/2024 11:35 AM EDT): Diabetes is worsening. A1c increased slightly but still acceptable. Continue current treatment regimen. Diabetes will be reassessed in 6 months. KupiKupone 2 CGM was downloaded today. Data was reviewed from 12/02/24 to 12/15/24. This showed fairly good glucose control. Occ postprandial spike. Time in range was 83%. Assessment & Plan (05/18/2024 11:55 AM EDT): [...] Diagnosed Date Resolved Date Hyperkalemia 11/06/2018 11/13/2018 Encounters Date Type Department Care Team Description 12/19/2024 11:00 AM EDT Office Visit [facility] [address] [place] [address] Daniel Vasquez MD Uncontrolled type 2 diabetes mellitus with hyperglycemia (Primary Dx); Primary hypertension; Mixed hyperlipidemia; Coronary artery disease involving choctaw coronary artery of choctaw heart without angina pectoris 12/19/2024 Travel 12/04/2024 Telephone [facility] [address] [place] [address] Daniel Vasquez MD MIERS-GLENDA 2 SENSORS 11/15/2024 Readmission Management [facility] [address] [facility] [facility] [place] [address] Fatuma Davalos RN 11/08/2024 Readmission Management [facility] [address] [place] [address] Fatuma Davalos RN 11/01/2024 Readmission Management [facility] [address] [place] [address] Fatuma Davalos, RN 10/27/2024 1:13 AM EDT - 11/01/2024 6:15 PM EDT Hospital Encounter [facility] 3F [address] [place] [address] Neftali Joiner MD Anwer, Mohammed A, MD Hamilton, Olivia D, Jonny Barraza DO Stephen, Karla R, MD Bilateral lower extremity edema (Primary Dx); Stage 4 chronic kidney disease; Occasional tremors; Generalized weakness; Weakness Discharge Disposition: Home-Health Care [facility] 10/27/2024 Travel from Last 3 Months Family History Medical History Relation Name Comments [...] drink = 0.6 oz pur e alcohol) [facility] [employer] Answer Date Recorded In the past 12 months has th e [employer], gas, oil, or water Ongage threatened to shut off services in your [...] GED or equivalent No 10/30/2024 Preferred Language Mongolian 10/30/2024 Sex and Gender Information Value Date Recorded Sex Assigned at Not on file Legal Sex Male 1:45 PM EDT Gender Identity Not on file Sexual Orientation Not on file Last Filed Vital Signs Vital Sign Reading Time Taken Comments Blood Pressure 152/76 12/19/2024 10:55 AM EDT Pulse 61 12/19/2024 10:55 AM EDT Temperature 36.5 C (97.7 F) 11/01/2024 10:48 AM EDT Respiratory Rate 16 11/01/2024 10:48 AM EDT Oxygen Saturation 94% 12/19/2024 10:55 AM EDT Inhaled Oxygen Concentration - - Weight 121 kg (267 lb 12.8 oz) 12/19/2024 10:55 AM EDT Height 182.9 cm (6' 0.01 ) 12/19/2024 10:55 AM E DT Body Mass Index 36.31 12/19/2024 10:55 AM EDT Plan of Treatment Upcoming Encounters Date Type Department Care Team (Late st Contact Info) Description 06/19/2025 8:45 AM EDT Office Visit [facility] [address] [address] Daniel Vasquez MD [address] [address] Health Maintenance Due Date Last Done Comments DIABETIC FOOT EXAM 1950 ZOSTER VACCINE (1 of 2) 1988 TDAP/TD VACCINES (2 - Tdap) 01/17/2008 01/16/1998 RSV Vaccine - Adults (1 - 1- dose 75+ series) 2013 ANNUAL WELLNESS VISIT 11/14/2018 DIABETIC EYE EXAM 05/20/2023 05/19/2022 COVID-19 Vaccine ( - 2024-2 6 season) 2024 02/03/2023, 12/22/2021, 06/25/2021, Additional history exists LIPID PANEL 05/18/2025 05/18/2024, 09/29/2022 URINE MICROALBUMIN-CREATININ E RATIO (uACR) 05/18/2025 05/18/2024 HEMOGLOBIN A1C 06/19/2025 12/19/2024, 04/29, 11/14/2023, Additional history exists Pneumococcal Vaccine 50+ Completed 017, 12/03/2015, 03/14/2013, Additional history exists INFLUENZA VACCINE Completed 12/17/2024, , 02/03/2023, Additional history exists Procedures Procedure Name Priority Date/Time Associated Diagnosis Comments POCT GLYCOSYLATED HEMOGLOBIN (HGB A1C) Routine 12/19/2024 11:18 AM EDT Uncontrolled type 2 diabetes mellitus with hyperglycemia POCT GLUCOSE, BLD (NON STRIP) Routine 12/19/2024 11:15 AM EDT Uncontrolled type 2 diabetes mellitus with hyperglycemia POCT GLUCOSE FINGERSTICK Routine 11/01/2024 11:53 AM EDT POCT GLUCOSE FINGERSTICK Routine 11/01/2024 8:08 AM EDT SCANNED - TELEMETRY 11/01/2024 7 :57 AM EDT POCT GLUCOSE FINGERSTICK Routine 10/31/2024 7:54 PM EDT POCT GLUCOSE FINGERSTICK Routine 10/31/2024 5:11 PM EDT SCANNED - TELEMETRY 10/31/2024 1 2:14 PM EDT POCT GLUCOSE FINGERSTICK Routine 10/31/2024 11:45 AM EDT RENAL FUNCTION PANEL Routine 10/31/2024 8:06 AM EDT POCT GLUCOSE FINGERSTICK Routine 10/31/2024 8:02 AM EDT POCT GLUCOSE FINGERSTICK Routine 10/30/2024 9:26 PM EDT POCT GLUCOSE FINGERSTICK Routine 10/30/2024 5:06 PM EDT POCT GLUCOSE FINGERSTICK Routine 10/30/2024 12:21 PM EDT POCT GLUCOSE FINGERSTICK Routine 10/30/2024 7:38 AM EDT RENAL FUNCTION PANEL Routine 10/30/2024 6:30 AM EDT POCT GLUCOSE FINGERSTICK Routine 10/29/2024 9:20 PM EDT POCT GLUCOSE FINGERSTICK Routine 10/29/2024 8:13 PM EDT POCT GLUCOSE FINGERSTICK Routine 10/29/2024 5:03 PM EDT POCT GLUCOSE FINGERSTICK Routine 10/29/2024 12:15 PM EDT POCT GLUCOSE FINGERSTICK Routine 10/29/2024 7:57 AM EDT CBC (NO DIFF) Routine 10/29/2024 7:54 AM EDT RENAL FUNCTION PANEL Routine 10/29/2024 7:54 AM EDT POCT GLUCOSE FINGERSTICK Routine 10/28/2024 6:58 PM EDT POCT GLUCOSE FINGERSTICK Routine 10/28/2024 4:24 PM EDT ECHO COMPLETE W/ DOPPLER AND COLOR FLOW Routine 10/28/2024 11:56 AM EDT POCT GLUCOSE FINGERSTICK Routine 10/28/2024 11:26 AM EDT IRON PROFILE Urgent 10/28/2024 10:56 AM EDT CBC (NO DIFF) Urgent 10/28/2024 10:56 AM EDT BASIC METABOLIC PANEL Urgent 10/28/2024 10:56 AM EDT POCT GLUCOSE FINGERSTICK Routine 10/28/2024 7:33 AM EDT POCT GLUCOSE FINGERSTICK Routine 10/27/2024 9:41 PM EDT POCT GLUCOSE FINGERSTICK Routine 10/27/2024 5:21 PM EDT POCT GLUCOSE FINGERSTICK Routine 10/27/2024 11:41 AM EDT SCANNED - TELEMETRY 10/27/2024 7 :59 AM EDT POCT GLUCOSE FINGERSTICK Routine 10/27/2024 7:57 AM EDT URINALYSIS W/ CULTURE IF INDICATED Urgent 10/27/2024 6:01 AM EDT XR TOE 2+ VW LEFT STAT 10/27/2024 5:5 4 AM EDT XR ELBOW 2 VW LEFT STAT 10/27/2024 5: 54 AM EDT WOUND OSTOMY EVAL AND TREAT Routine 10/27/2024 4:42 AM EDT ECG 12-LEAD Routine 10/27/2024 4:35 AM EDT CBC WITH AUTO DIFFERENTIAL Urgent 10/27/2024 4:18 AM EDT POCT GLUCOSE FINGERSTICK Routine 10/27/2024 4:15 AM EDT PHOSPHORUS Urgent 10/27/2024 4:14 AM EDT MAGNESIUM Urgent 10/27/2024 4:14 AM EDT BASIC METABOLIC PANEL Urgent 10/27/2024 4:14 AM EDT HIGH SENSITIVITIY TROPONIN T 1HR Timed 10/27/2024 4:14 AM EDT LACTIC ACID, PLASMA STAT 10/27/2024 4 :14 AM EDT MRI BRAIN WO CONTRAST STAT 10/27/2024 3:52 AM EDT ECG 12-LEAD STAT 10/27/2024 3:04 AM EDT XR CHEST 1 VW STAT 10/27/2024 2:28 AM EDT CBC AND DIFFERENTIAL STAT 10/27/2024 1:56 AM EDT PROCALCITONIN STAT 10/27/2024 1:56 AM EDT C-REACTIVE PROTEIN STAT 10/27/2024 1: 56 AM EDT TROPONIN STAT 10/27/2024 1:56 AM EDT CBC WITH AUTO DIFFERENTIAL STAT 10/27/2024 1:56 AM EDT B-TYPE NATRIURETIC PEPTIDE STAT 10/27/2024 1:56 AM EDT COMPREHENSIVE METABOLIC PANEL STAT 10/27/2024 1:56 AM EDT SCANNED - TELEMETRY 10/27/2024 1 :[address] HEAD WO CONTRAST STAT 10/27/2024 1 :42 AM EDT MICROALBUMIN / CREATININE URINE RATIO Routine 05/18/2024 12:04 PM EDT Uncontrolled type 2 diabetes mellitus with hyperglycemia LIPID PANEL Routine 05/18/2024 12:04 PM EDT Uncontrolled type 2 diabetes mellitus with hyperglycemia SCANNED - EYE EXAM 05/19/2022 from Last 3 Months or Most Recently Relevant to Health Maintenance Results * (ABNORMAL) POC Glycosylated Hemoglobin (Hb A1C) (12/19/2024 11:18 AM EDT) Hemoglobin A1C 7.7(A) 4.5 - 5.7 % [facility] Lot Number [id number] [facility] Expiration Date 07/27/2026 [facility] Blood 12/19/2024 11:1 8 AM EDT Daniel Vasquez MD POINT OF CARE TEST ORDERA BLES Final Result [facility]
[address] [place] [address], * (ABNORMAL) POC Glucose, Blood (12/19/2024 11:15 AM EDT) Glucose 196(A) 70 - 130 mg/dL Lot Number [id number] Expiration Date 05/14/2025 Blood 12/19/2024 11:1 5 AM EDT Daniel Vasquez MD POINT OF CARE TEST ORDERA BLES Final Result * (ABNORMAL) POC Glucose 4x Daily Before Meals & at Bedtime (11/01/2024 11:53 AM EDT) Only the most recent of24 resultswithin the time period is included. Glucose 220(H) 70 - 130 mg/dL 11/01/2024 12:14 PM EDT [facility] Comment:Serial Number: [id number] Blood 11/01/2024 11:5 3 AM EDT 11/01/2024 12:14 PM EDT Quita Dueñas BUILD MANAGER POINT OF CARE TEST ORDERABL ES Final Result [facility]
[address] [place] [address], * Telemetry Scan (11/01/2024 7:57 AM EDT) Only the most recent of4 resultswithin the time period is included. [facility] ECG ORDERABLES Final Result * (ABNORMAL) Renal Function Panel (10/31/2024 8:06 AM EDT) Only the most recent of3 resultswithin the time period is included. Glucose 157(H) 65 - 99 mg/dL 10/31/2024 10:27 AM EDT [facility] BUN 36.6(H) 8.0 - 23.0 mg/dL 10/31/2024 10:27 AM EDT [facility] Creatinine 2.07(H) 0.76 - 1.27 mg/dL 10/31/2024 10:27 AM EDT [facility] Sodium 140 136 - 145 mmol/L 10/31/2024 10:27 AM EDT [facility] Potassium 3.8 3.5 - 5.2 mmol/L 10/31/2024 10:27 AM EDT [facility] Chloride 91(L) 98 - 107 mmol/L 10/31/2024 10:27 AM T [facility] CO2 38.0(H) 22.0 - 29.0 mmol/L 10/31/2024 10:27 AM EDT [facility] Calcium 9.0 8.6 - 10.5 mg/dL 10/31/2024 10:27 AM EDT [facility] Albumin 4.1 3.5 - 5.2 g/dL 10/31/2024 10:27 AM T [facility] Phosphorus 4.7(H) 2.5 - 4.5 mg/dL 10/31/2024 10:27 AM [facility] Anion Gap 11.0 5.0 - 15.0 mmol/L 10/31/2024 10:27 AM T [facility] BUN/Creatinine Ratio 17.7 7.0 - 25.0 10/31/2024 10:27 AM [facility] eGFR 30.6(L) >60.0 mL/min/1.7 3 10/31/2024 10:27 AM [facility] Blood Venipuncture / Unknown 10/31/2024 8:06 AM EDT 10/31/2024 9:23 AM EDT [facility] - 10/31/2024 10:27 AM EDT GFR Categories in Chronic Kidney Disease (CKD) GFR Category GFR (mL/min/1.73) Interpretation G1 90 or greater Normal or high (1) G2 60-89 Mild decrease (1) G3a 45-59 Mild to moderate decrease G3b 30-44 Moderate to severe decrease G4 15-29 Severe decrease G5 14 or less Kidney failure (1)In the absence of evidence of kidney disease, neither GFR category G1 or G2 fulfill the criteria for CKD. eGFR calculation 2020 CKD-EPI creatinine equation, which does not include race as a factor us Jonny Dhillon DO LAB BLOOD ORDERABLES Final Resul t [facility]
[address] [place] [address], * (ABNORMAL) CBC (No Diff) (10/29/2024 7:54 AM EDT) Only the most recent of2 resultswithin the time period is included. WBC 8.40 3.40 - 10.80 10*3/mm3 10/29/2024 9:29 AM EDT [facility] RBC 3.40(L) 4.14 - 5.80 10*6/mm3 10/29/2024 9:29 AM EDT [facility] Hemoglobin 11.1(L) 13.0 - 17.7 g/dL 10/29/2024 9:29 AM EDT [facility] Hematocrit 35.3(L) 37.5 - 51.0 % 10/29/2024 9:29 AM EDT [facility] MCV 103.8(H) 79.0 - 97.0 fL 10/29/2024 9:29 AM EDT [facility] MCH 32.6 26.6 - 33.0 pg 10/29/2024 9:29 AM EDT [facility] MCHC 31.4(L) 31.5 - 35.7 g/dL 10/29/2024 9:29 AM EDT [facility] RDW 14.7 12.3 - 15.4 % 10/29/2024 9:29 AM EDT [facility] RDW-SD 56.6(H) 37.0 - 54.0 fl 10/29/2024 9:29 AM EDT [facility] MPV 9.9 6.0 - 12.0 fL 10/29/2024 9:29 AM EDT [facility] Platelets 309 140 - 450 10*3/mm3 10/29/2024 9:29 AM EDT [facility] Blood Venipuncture / Unknown 10/29/2024 7:54 AM EDT 10/29/2024 8:11 AM EDT us Jonny Dhillon DO LAB BLOOD ORDERABLES Final Resul t [facility]
[address] [place] [address], [place] [phone] * ECHO COMPLETE W/ DOPPLER AND COLOR FLOW (10/28/2024 11:56 AM EDT) EF(MOD-bp) 58.4 % LVIDd 5.1 cm LVIDs 3.7 cm IVSd 1.10 cm LVPWd 1.11 cm FS 28.2 % IVS/LVPW 0.99 cm ESV(cubed) 49.5 ml LV Sys Vol (BSA corrected) 20.0 cm2 EDV(cubed) 133.6 ml LV Garcia Vol (BSA corrected) 46.9 cm2 LV mass(C)d 215.5 grams LVOT area 3.2 cm2 LVOT diam 2.01 cm EDV(MOD-sp2) 89.8 ml EDV(MOD-sp4) 112.0 ml ESV(MOD-sp2) 33.2 ml ESV(MOD-sp4) 47.8 ml SV(MOD-sp2) 56.6 ml SV(MOD-sp4) 64.2 ml SVi(MOD-SP2) 23.7 ml/m2 SVi(MOD-SP4) 26.9 ml/m2 SVi (LVOT) 23.7 ml/m2 EF(MOD-sp2) 63.0 % EF(MOD-sp4) 57.3 % MV E max norberto 114.0 cm/sec MV dec time 0.23 sec IVRT 82.0 ms LA ESV Index (BP) 39.0 ml/m2 Med Peak E' Norberto 10.6 cm/sec Lat Peak E' Norberto 11.5 cm/sec TR max norberto 294.9 cm/sec Avg E/e' ratio 10.32 SV(LVOT) 56.5 ml RV Base 3.9 cm RV Mid 3.7 cm RV Length 8.1 cm TAPSE (>1.6) 2.03 cm RV S' 12.9 cm/sec LA dimension (2D) 4.7 cm LV V1 max 93.8 cm/sec LV V1 max PG 3.5 mmHg LV V1 mean PG 1.56 mmHg LV V1 VTI 17.8 cm Ao pk norberto 210.1 cm/sec Ao max PG 17.7 mmHg Ao mean PG 9.5 mmHg Ao V2 VTI 39.1 cm RAJESH(I,D) 1.44 cm2 Dimensionless Index 0.45 (DI) MV max PG 6.3 mmHg MV mean PG 2.28 mmHg MV V2 VTI 26.8 cm MVA(VTI) 2.11 cm2 MV dec slope 489.8 cm/sec2 TR max PG 34.8 mmHg PA acc time 0.10 sec Ao root diam 3.5 cm Ascending aorta 3.3 cm BH CV VAS BP LEFT ARM 127/82 mmHg RVSP(TR) 43 mmHg RAP systole 8 mmHg Anatomical Region Laterality Modality Ultrasound Narrative 10/30/2024 9:21 AM EDT Left ventricular systolic function is normal. Calculated left ventricular EF = 58.4% Left ventricular ejection fraction appears to be 56 - 60%. Left ventricular wall thickness is consistent with mild concentric hypertrophy. Left ventricular diastolic function was indeterminate. The left atrial cavity is mildly dilated. The right atrial cavity is mildly dilated. Mild aortic valve stenosis is present. Aortic valve area is 1.4 cm2. Peak velocity of the flow distal to the aortic valve is 210.1 cm/s. Estimated right ventricular systolic pressure from tricuspid regurgitation is mildly elevated (35-45 mmHg). Calculated right ventricular systolic pressure from tricuspid regurgitation is 43 mmHg. Mild aortic stenosis now noted compared to 2023 echo. Otherwise unchanged. Left Ventricle Left ventricular systolic function is normal. Calculated left ventricular EF = 58.4% Left ventricular ejection fraction appears to be 56 - 60%. Normal left ventricular cavity size noted. Left ventricular wall thickness is consistent with mild concentric hypertrophy. All left ventricular wall segments contract normally. Left ventricular diastolic function was indeterminate. Right Ventricle Normal right ventricular cavity size, wall thickness, systolic function and septal motion noted. Left Atrium The left atrial cavity is mildly dilated. Right Atrium The right atrial cavity is mildly dilated. Mitral Valve Mild mitral annular calcification is present. Trace to mild mitral valve regurgitation is present. No significant mitral valve stenosis is present. Tricuspid Valve The tricuspid valve is structurally normal with no significant stenosis present. Mild tricuspid valve regurgitation is present. Estimated right ventricular systolic pressure from tricuspid regurgitation is mildly elevated (35-45 mmHg). Calculated right ventricular systolic pressure from tricuspid regurgitation is 43 mmHg. Aortic Valve The aortic valve is abnormal in structure. There is mild calcification of the aortic valve mainly affecting the right coronary cusp(s). No aortic valve regurgitation is present. Mild aortic valve stenosis is present. Aortic valve area is 1.44 cm2. Peak velocity of the flow distal to the aortic valve is 210.1 cm/s. Pulmonic Valve The pulmonic valve is structurally normal with no regurgitation or significant stenosis present. Pericardium The pericardium is normal. There is no evidence of pericardial effusion. . Greater Vessels No dilation of the aortic root is present. The inferior vena cava is dilated. Normal IVC inspiratory collapse of greater than 50% noted. Study Quality The study is technically adequate for diagnosis. Nallely Golden PA-C CV ECHO ORDERABLES F inal Result * (ABNORMAL) Iron Profile w/o Ferritin (10/28/2024 10:56 AM EDT) Iron 62 59 - 158 mcg/dL 10/28/2024 11:36 AM EDT [facility] Iron Saturation (TSAT) 23 20 - 50 % 10/28/2024 11:36 AM EDT [facility] Transferrin 179(L) 200 - 360 mg/dL 10/28/2024 11:36 AM EDT [facility] TIBC 267(L) 298 - 536 mcg/dL 10/28/2024 11:36 AM EDT [facility] Blood Venipuncture / Unknown 10/28/2024 10:56 AM EDT 10/28/2024 11:10 AM EDT Zhang Godfrey MD LAB BLOOD ORDERABLES Final Re sult [facility]
[address] [place] [address], * (ABNORMAL) Basic Metabolic Panel (10/28/2024 10:56 AM EDT) Only the most recent of2 resultswithin the time period is included. Glucose 227(H) 65 - 99 mg/dL 10/28/2024 11:36 AM T [facility] BUN 32.3(H) 8.0 - 23.0 mg/dL 10/28/2024 11:36 AM T [facility] Creatinine 1.86(H) 0.76 - 1.27 mg/dL 10/28/2024 11:36 AM EDT [facility] Sodium 141 136 - 145 mmol/L 10/28/2024 11:36 AM T [facility] Potassium 3.8 3.5 - 5.2 mmol/L 10/28/2024 11:36 AM T [facility] Chloride 94(L) 98 - 107 mmol/L 10/28/2024 11:36 AM EDT [facility] CO2 34.7(H) 22.0 - 29.0 mmol/L 10/28/2024 11:36 AM EDT [facility] Calcium 8.9 8.6 - 10.5 mg/dL 10/28/2024 11:36 AM T [facility] BUN/Creatinine Ratio 17.4 7.0 - 25.0 10/28/2024 11:36 AM T [facility] Anion Gap 12.3 5.0 - 15.0 mmol/L 10/28/2024 11:36 AM [facility] eGFR 34.8(L) >60.0 mL/min/1.7 3 10/28/2024 11:36 AM [facility] Blood Venipuncture / Unknown 10/28/2024 10:56 AM EDT 10/28/2024 11:10 AM EDT [facility] - 10/28/2024 11:36 AM EDT GFR Categories in Chronic Kidney Disease (CKD) GFR Category GFR (mL/min/1.73) Interpretation G1 90 or greater Normal or high (1) G2 60-89 Mild decrease (1) G3a 45-59 Mild to moderate decrease G3b 30-44 Moderate to severe decrease G4 15-29 Severe decrease G5 14 or less Kidney failure (1)In the absence of evidence of kidney disease, neither GFR category G1 or G2 fulfill the criteria for CKD. eGFR calculation 2020 CKD-EPI creatinine equation, which does not include race as a factor Quita Patel Dueñas BUILD MANAGER LAB BLOOD ORDERABLES Final Result [facility]
[address] [place] [address], * Urinalysis With Culture If Indicated - Urine, Clean Catch (10/27/2024 6:01 AM EDT) Color, UA Yellow Yellow, Straw 10/27/2024 6:44 AM EDT [facility] Appearance, UA Clear Clear 10/27/2024 6:44 AM EDT [facility] pH, UA 6.5 5.0 - 8.0 10/27/2024 6:44 AM EDT [facility] Specific [place], UA 1.007 1.005 - 1.030 10/27/2024 6:44 AM EDT [facility] Glucose, UA Negative Negative 10/27/2024 6:44 AM EDT [facility] Ketones, UA Negative Negative 10/27/2024 6:44 AM EDT [facility] Bilirubin, UA Negative Negative 10/27/2024 6:44 AM EDT [facility] Blood, UA Negative Negative 10/27/2024 6:44 AM EDT [facility] Protein, UA Negative Negative 10/27/2024 6:44 AM EDT [facility] Leuk Esterase, UA Negative Negative 10/27/2024 6:44 AM EDT [facility] LABORATORY Nitrite, UA Negative Negative 10/27/2024 6:44 AM EDT [facility] Urobilinogen, UA 0.2 E.U./dL 0.2 - 1.0 E.U./dL 10/27/2024 6:44 AM EDT [facility] Urine Urine specimen obtained by clean catch procedure / Unknown Collection / Unknown 10/27/2024 6:01 AM EDT 10/27/2024 6:39 AM EDT Narrative [facility] - 10/27/2024 6:44 AM EDT In absence of clinical symptoms, the presence of pyuria, bacteria, and/or nitrites on the urinalysis result does not correlate with infection. Urine microscopic not indicated. Quita R Dueñas BUILD MANAGER URINE ORDERABLES Final Resu lt [facility]
[address] [place] [address], * XR Toe 2+ View Left (10/27/2024 5:54 AM EDT) Anatomical Region Laterality Modality Lower Extremities, Toes Left Radiogra phic Imaging 10/27/2024 6:14 AM EDT Impressions 10/27/2024 6:15 AM EDT Impression: 1.No acute osseous abnormality. 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 3.Soft tissue edema. Electronically Signed: Lukas Chirinos MD 10/27/2024 6:15 AM EDT Workstation ID: [id number] Narrative 10/27/2024 6:15 AM EDT XR TOE 2+ VW LEFT Date of Exam: 10/27/2024 5:25 AM EDT Indication: bruising left toes, unsure of injury. Comparison: None available. 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 There is moderate productive DJD throughout the remainder of the IP joints. Mild DJD at the MCP joints and throughout the midfoot and hindfoot. There is pes planus. No definite fracture or dislocation. No acute erosions. There is soft tissue edema throughout the dorsum of the foot and at the ankle. There are prominent vascular calcifications. Hammertoe deformity is present at least at the fifth digit. Probable pes planus. Procedure Note Lukas Chirinos MD - 10/27/2024 XR TOE 2+ VW LEFT Date of Exam: 10/27/2024 5:25 AM EDT Indication: bruising left toes, unsure of injury. Comparison: None available. 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 There is moderateproductive DJD throughout the remainder of the IP joints. Mild DJD at theMCP joints and throughout the midfoot and hindfoot. There is pes planus.No definite fracture or dislocation. No acute erosions. There is soft tissue edema throughout thedorsum of the foot and at the ankle. There are prominent vascularcalcifications. Hammertoe deformity is present at least at the fifthdigit. Probable pes planus. IMPRESSION: Impression: 1.No acute osseous abnormality. 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 3.Soft tissue edema. Electronically Signed: Lukas Chirinos MD 10/27/2024 6:15 AM EDT Workstation ID: [id number] Quita Dueñas APRN [facility] DIAGNOSTIC IM[facility] Final Result * XR ELBOW 2 VIEW LEFT (10/27/2024 5:54 AM EDT) Anatomical Region Laterality Modality Upper Extremities, Elbow Left Radiogr aphic Imaging 10/27/2024 6:13 AM EDT Impressions 10/27/2024 6:16 AM EDT 1.No fracture or dislocation. 2.Large olecranon spur. 3.Soft tissue calcifications as above Electronically Signed: Willie Carroll MD 10/27/2024 6:16 AM EDT Workstation ID: [id number] Narrative 10/27/2024 6:16 AM EDT XR ELBOW 2 VW LEFT Date of Exam: 10/27/2024 5:25 AM EDT Indication: left elbow/upper forearm edema, tenderness. Comparison: None available. Findings: No fracture or dislocation. No bone erosion or destruction. No joint effusion. There is a large olecranon spur. There are soft tissue calcifications in the dorsal proximal forearm. Procedure Note Willie Carroll MD - 10/27/2024 XR ELBOW 2 VW LEFT Date of Exam: 10/27/2024 5:25 AM EDT Indication: left elbow/upper forearm edema, tenderness. Comparison: None available. Findings: No fracture or dislocation. No bone erosion or destruction. No jointeffusion. There is a large olecranon spur. There are soft tissuecalcifications in the dorsal proximal forearm. IMPRESSION: 1.No fracture or dislocation. 2.Large olecranon spur. 3.Soft tissue calcifications as above Electronically Signed: Willie Carroll MD 10/27/2024 6:16 AM EDT Workstation ID: [id number] us Quita Dueñas BUILD MANAGER IMG DIAGNOSTIC IMAGING [facility] Final Result * ECG 12 Lead Tachycardia (10/27/2024 4:35 AM EDT) Only the most recent of2 resultswithin the time period is included. QT Interval 386 ms ECG QTC Interval 431 ms ECG 10/27/2024 4:35 AM EDT 10/27/2024 10:56 AM EDT Narrative ECG - 10/27/2024 10:56 AM EDT Test Reason : Tachycardia Blood Pressure : */* mmHG Vent. Rate : 75 BPM Atrial Rate : 300 BPM P-R Int : * ms QRS Dur : 98 ms QT Int : 386 ms P-R-T Axes : * 34 68 degrees QTcB Int : 431 ms Atrial fibrillation Low voltage QRS Nonspecific ST abnormality Abnormal ECG When compared with ECG of 27-Oct-2024 03:04, (Unconfirmed) Nonspecific T wave abnormality no longer evident in Lateral leads Confirmed by MD Evans John ([id number]) on 10/27/2024 10:56:42 AM Referred By: Confirmed By: Wyatt Evans MD Procedure Note Wyatt Evans III, MD - 10/27/2024 Test Reason : Tachycardia Blood Pressure : */* mmHG Vent. Rate : 75 BPM Atrial Rate : 300 BPM P-R Int : * ms QRS Dur : 98 ms QT Int : 386 ms P-R-T Axes : * 34 68 degrees QTcB Int : 431 ms Atrial fibrillation Low voltage QRS Nonspecific ST abnormality Abnormal ECG When compared with ECG of 27-Oct-2024 03:04, (Unconfirmed) Nonspecific T wave abnormality no longer evident in Lateral leads Confirmed by MD Nathan, Wyatt ([id number]) on 10/27/2024 10:56:42 AM Referred By: Confirmed By: Wyatt Evans MD Quita Dueñas BUILD MANAGER ECG ORDERABLES Final Resul t ECG * (ABNORMAL) CBC Auto Differential (10/27/2024 4:18 AM EDT) Only the most recent of2 resultswithin the time period is included. WBC 9.22 3.40 - 10.80 10*3/mm3 10/27/2024 4:54 AM EDT [facility] RBC 2.98(L) 4.14 - 5.80 10*6/mm3 10/27/2024 4:54 AM EDT [facility] Hemoglobin 9.7(L) 13.0 - 17.7 g/dL 10/27/2024 4:54 AM EDT [facility] Hematocrit 30.6(L) 37.5 - 51.0 % 10/27/2024 4:54 AM EDT [facility] MCV 102.7(H) 79.0 - 97.0 fL 10/27/2024 4:54 AM EDT [facility] MCH 32.6 26.6 - 33.0 pg 10/27/2024 4:54 AM EDT [facility] MCHC 31.7 31.5 - 35.7 g/dL 10/27/2024 4:54 AM EDT [facility] RDW 14.5 12.3 - 15.4 % 10/27/2024 4:54 AM EDT [facility] RDW-SD 54.4(H) 37.0 - 54.0 fl 10/27/2024 4:54 AM EDT [facility] MPV 9.6 6.0 - 12.0 fL 10/27/2024 4:54 AM EDT [facility] Platelets 282 140 - 450 10*3/mm3 10/27/2024 4:54 AM [facility] Neutrophil % 63.1 42.7 - 76.0 % 10/27/2024 4:54 AM [facility] Lymphocyte % 26.6 19.6 - 45.3 % 10/27/2024 4:54 AM [facility] Monocyte % 7.8 5.0 - 12.0 % 10/27/2024 4:54 AM [facility] Eosinophil % 1.7 0.3 - 6.2 % 10/27/2024 4:54 AM [facility] Basophil % 0.4 0.0 - 1.5 % 10/27/2024 4:54 AM [facility] Immature Grans % 0.4 0.0 - 0.5 % 10/27/2024 4:54 AM [facility] Neutrophils, Absolute 5.81 1.70 - 7.00 10*3/mm3 10/27/2024 4:54 AM [facility] Lymphocytes, Absolute 2.45 0.70 - 3.10 10*3/mm3 10/27/2024 4:54 AM [facility] Monocytes, Absolute 0.72 0.10 - 0.90 10*3/mm3 10/27/2024 4:54 AM [facility] Eosinophils, Absolute 0.16 0.00 - 0.40 10*3/mm3 10/27/2024 4:54 AM [facility] Basophils, Absolute 0.04 0.00 - 0.20 10*3/mm3 10/27/2024 4:54 AM [facility] Immature Grans, Absolute 0.04 0.00 - 0.05 10*3/mm3 10/27/2024 4:54 AM [facility] nRBC 0.0 0.0 - 0.2 /100 WBC 10/27/2024 4:54 AM [facility] Blood Venipuncture / Unknown 10/27/2024 4:18 AM EDT 10/27/2024 4:37 AM EDT Quita Dueñas BUILD MANAGER LAB BLOOD ORDERABLES Final Result Performing Organization Address [facility]/ZIP Co de Phone Number [facility]
[address] [place] [address], * (ABNORMAL) High Sensitivity Troponin T 1Hr (10/27/2024 4:14 AM EDT) HS Troponin T 61(HH) <22 ng/L 10/27/2024 5:30 AM EDT [facility] Comment:Confirmed/called Troponin T Numeric Delta 4 ng/L 10/27/2024 5:30 AM EDT [facility] Troponin T % Delta 7 Abnormal if >/= 20% 10/27/2024 5:30 AM EDT [facility] Blood Venipuncture / Unknown 10/27/2024 4:14 AM EDT 10/27/2024 4:37 AM EDT Narrative [facility] - 10/27/2024 5:30 AM EDT High Sensitive Troponin T Reference Range: <14.0 ng/L- Negative Female for AMI <22.0 ng/L- Negative Male for AMI >=14 - Abnormal Female indicating possible myocardial injury. >=22 - Abnormal Male indicating possible myocardial injury. Clinicians would have to utilize clinical acumen, EKG, Troponin, and serial changes to determine if it is an Acute Myocardial Infarction or myocardial injury due to an underlying chronic condition. us Quita Dueñas APRN LAB BLOOD ORDERABLES Final Result Performing Organization Address City/[facility]/ZIP Co de Phone Number [facility]
[address] [place] [address], * Phosphorus (10/27/2024 4:14 AM EDT) Phosphorus 3.6 2.5 - 4.5 mg/dL 10/27/2024 5:22 AM EDT [facility] Blood Venipuncture / Unknown 10/27/2024 4:14 AM EDT 10/27/2024 4:37 AM EDT us Quita Dueñas BUILD MANAGER LAB BLOOD ORDERABLES Final Result Performing Organization Address [facility]/ZIP Co de Phone Number [facility]
[address] [place] [address], * Magnesium (10/27/2024 4:14 AM EDT) Magnesium 1.8 1.6 - 2.4 mg/dL 10/27/2024 5:22 AM EDT [facility] Blood Venipuncture / Unknown 10/27/2024 4:14 AM EDT 10/27/2024 4:37 AM EDT us Quita Dueñas BUILD MANAGER LAB BLOOD ORDERABLES Final Result Performing Organization Address [facility] Co de Phone Number [facility]
[address] [place] [address], * Lactic Acid, Plasma (10/27/2024 4:14 AM EDT) Lactate 1.7 0.5 - 2.0 mmol/L 10/27/2024 5:17 AM EDT [facility] Comment:Falsely depressed re sults may occur on samples drawn from patients receiving N-Acetylcysteine (NAC) or Metamizole. Blood Venipuncture / Unknown 10/27/2024 4:14 AM EDT 10/27/2024 4:37 AM EDT us Quita Dueñas BUILD MANAGER LAB BLOOD ORDERABLES Final Result Performing Organization Address City/[facility] Co de Phone Number [facility]
[address] [place] [address], * MRI Brain Without Contrast (10/27/2024 3:52 AM EDT) Anatomical Region Laterality Modality Head, Neck N/A Magnetic Resonan ce 10/27/2024 4:11 AM EDT Impressions 10/27/2024 4:12 AM EDT Impression: 1.No acute intracranial abnormality. 2.Mild chronic small vessel ischemic change. Electronically Signed: Lukas Chirinos MD 10/27/2024 4:12 AM EDT Workstation ID: [id number] Narrative 10/27/2024 4:12 AM EDT MRI BRAIN WO CONTRAST Date of Exam: 10/27/2024 3:42 AM EDT Indication: eval intermittent tremors and weakness, eval metastasis. Comparison: CT head 10/27/2024. Technique: Routine multiplanar/multisequence sequence images of the brain were obtained without contrast administration. Findings: There is no diffusion restriction to suggest acute infarct. There is mild periventricular white matter FLAIR hyperintense signal. No acute or chronic intracranial hemorrhage. No mass effect, midline shift or abnormal extra-axial collection. Major arterial flow voids appear intact. Thinning of the orbital lenses would suggest prior cataract surgery. There are small mucous retention cysts in both maxillary sinuses. Mastoid air cells appear well aerated. Calvarial and superficial soft tissue signal is within normal limits. The midline structures are intact. Temporomandibular joints and parotid glands appear symmetric. Procedure Note Lukas Chirinos MD - 10/27/2024 MRI BRAIN WO CONTRAST Date of Exam: 10/27/2024 3:42 AM EDT Indication: eval intermittent tremors and weakness, eval metastasis. Comparison: CT head 10/27/2024. Technique: Routine multiplanar/multisequence sequence images of the brainwere obtained without contrast administration. Findings: There is no diffusion restriction to suggest acute infarct. There is mildperiventricular white matter FLAIR hyperintense signal. No acute orchronic intracranial hemorrhage. No mass effect, midline shift or abnormalextra-axial collection. Major arterial flow voids appear intact. Thinning of the orbital lenses wouldsuggest prior cataract surgery. There are small mucous retention cysts inboth maxillary sinuses. Mastoid air cells appear well aerated. Calvarialand superficial soft tissue signal is within normal limits. The midline structures are intact.Temporomandibular joints and parotid glands appear symmetric. IMPRESSION: Impression: 1.No acute intracranial abnormality. 2.Mild chronic small vessel ischemic change. Electronically Signed: Lukas Chirinos MD 10/27/2024 4:12 AM EDT Workstation ID: [id number] Neftali Driscoll MD [facility] ORDERABLES Final Resu lt * XR Chest 1 View (10/27/2024 2:28 AM EDT) Anatomical Region Laterality Modality Body N/A Radiographic Arlette ging 10/27/2024 2:33 AM EDT Impressions 10/27/2024 2:34 AM EDT Impression: No acute cardiopulmonary abnormality. Electronically Signed: Lukas Chirinos MD 10/27/2024 2:34 AM EDT Workstation ID: [id number] Narrative 10/27/2024 2:34 AM EDT XR CHEST 1 VW Date of Exam: 10/27/2024 2:03 AM EDT Indication: eval volume overload. Comparison: 07/27/[address] same date Findings: There is no pneumothorax, pleural effusion or focal airspace consolidation. Heart size and pulmonary vasculature appear within normal limits. Regional bones appear intact. Procedure Note Lukas Chirinos MD - 10/27/2024 XR CHEST 1 VW Date of Exam: 10/27/2024 2:03 AM EDT Indication: eval volume overload. Comparison: 07/27/[address] same date Findings: There is no pneumothorax, pleural effusion or focal airspaceconsolidation. Heart size and pulmonary vasculature appear within normallimits. Regional bones appear intact. IMPRESSION: Impression: No acute cardiopulmonary abnormality. Electronically Signed: Lukas Chirinos MD 10/27/2024 2:34 AM EDT Workstation ID: [id number] Neftali SWIFT DIAGNOSTIC IMAGING ORDERA BLES Final Result * Procalcitonin (10/27/2024 1:56 AM EDT) Pathologist [facility] [place] Procalcitonin 0.08 0.00 - 0.25 ng/mL 10/27/2024 3:53 AM EDT [facility] Blood Structure of right upper limb / Unknown Line / Unknown 10/27/2024 1:56 AM EDT 10/27/2024 2:07 AM EDT [facility] - 10/27/2024 3:53 AM EDT As a Marker for Sepsis (Non-Neonates): 1. <0.5 ng/mL represents a low risk of severe sepsis and/or septic shock. 2. >2 ng/mL represents a high risk of severe sepsis and/or septic shock. As a Marker for Lower Respiratory Tract Infections that require antibiotic therapy: PCT on Admission Antibiotic Therapy 6-12 Hrs later >0.5 Strongly Recommended >0.25 - <0.5 Recommended 0.1 - 0.25 Discouraged Remeasure/reassess PCT <0.1 Strongly Discouraged Remeasure/reassess PCT As 28 day mortality risk marker: Change in Procalcitonin Result (>80% or <=80%) if Day 0 (or Day 1) and Day 4 values are available. Refer to http://www.nbawxn-pry-slmoicxziw.com Change in PCT <=80% A decrease of PCT levels below or equal to 80% defines a positive change in PCT test result representing a higher risk for 28-day all-cause mortality of patients diagnosed with severe sepsis for septic shock. Change in PCT >80% A decrease of PCT levels of more than 80% defines a negative change in PCT result representing a lower risk for 28-day all-cause mortality of patients diagnosed with severe sepsis or septic shock. us Quita Dueñas APRN LAB BLOOD ORDERABLES Final Result [facility]
[address] [place] [address], * (ABNORMAL) High Sensitivity Troponin T (10/27/2024 1:56 AM EDT) Pathologist [facility] [place] HS Troponin T 57(HH) <22 ng/L 10/27/2024 3:30 AM EDT [facility] Comment:Confirmed/called Blood Structure of right upper limb / Unknown Line / Unknown 10/27/2024 1:56 AM EDT 10/27/2024 2:07 AM EDT Narrative [facility] - 10/27/2024 3:30 AM EDT High Sensitive Troponin T Reference Range: <14.0 ng/L- Negative Female for AMI <22.0 ng/L- Negative Male for AMI >=14 - Abnormal Female indicating possible myocardial injury. >=22 - Abnormal Male indicating possible myocardial injury. Clinicians would have to utilize clinical acumen, EKG, Troponin, and serial changes to determine if it is an Acute Myocardial Infarction or myocardial injury due to an underlying chronic condition. Quita Dueñas APRN LAB BLOOD ORDERABLES Final Result Performing Organization Address City/[facility]/ZIP Co de Phone Number [facility]
[address] [place] [address], * (ABNORMAL) C-reactive Protein (10/27/2024 1:56 AM EDT) C-Reactive Protein 2.28(H) 0.00 - 0.50 mg/dL 10/27/2024 3:48 AM EDT [facility] Blood Structure of right upper limb / Unknown Line / Unknown 10/27/2024 1:56 AM EDT 10/27/2024 2:07 AM EDT Quita Dueñas APRN LAB BLOOD ORDERABLES Final Result [facility]
[address] [place] [address], * (ABNORMAL) BNP (10/27/2024 1:56 AM EDT) proBNP 2,312.0(H) 0.0 - 1,800.0 pg/mL 10/27/2024 2:38 AM EDT [facility] Blood Structure of right upper limb / Unknown Line / Unknown 10/27/2024 1:56 AM EDT 10/27/2024 2:07 AM EDT [facility] - 10/27/2024 2:38 AM EDT This assay is used as an aid in the diagnosis of individuals suspected of having heart failure. It can be used as an aid in the diagnosis of acute decompensated heart failure (ADHF) in patients presenting with signs and symptoms of ADHF to the emergency department (ED). In addition, NT-proBNP of <300 pg/mL indicates ADHF is not likely. Age Range Result Interpretation NT-proBNP Concentration (pg/mL: <50 Positive >450 Valle 300-450 Negative <300 50-75 Positive >900 Valle 300-900 Negative <300 >75 Positive >1800 Valle 300-1800 Negative <300 us Neftali Driscoll MD LAB BLOOD ORDERABLES Final Re sult [facility]
[address] [place] [address], * (ABNORMAL) Comprehensive Metabolic Panel (10/27/2024 1:56 AM EDT) Glucose 157(H) 65 - 99 mg/dL 10/27/2024 2:38 AM EDT [facility] BUN 37.7(H) 8.0 - 23.0 mg/dL 10/27/2024 2:38 AM EDT [facility] Creatinine 2.12(H) 0.76 - 1.27 mg/dL 10/27/2024 2:38 AM EDT [facility] Sodium 142 136 - 145 mmol/L 10/27/2024 2:38 AM EDT [facility] Potassium 4.0 3.5 - 5.2 mmol/L 10/27/2024 2:38 AM EDT [facility] Chloride 97(L) 98 - 107 mmol/L 10/27/2024 2:38 AM EDT [facility] CO2 32.8(H) 22.0 - 29.0 mmol/L 10/27/2024 2:38 AM T [facility] Calcium 8.8 8.6 - 10.5 mg/dL 10/27/2024 2:38 AM [facility] Total Protein 6.7 6.0 - 8.5 g/dL 10/27/2024 2:38 AM [facility] Albumin 3.7 3.5 - 5.2 g/dL 10/27/2024 2:38 AM [facility] ALT (SGPT) 9 1 - 41 U/L 10/27/2024 2:38 AM [facility] AST (SGOT) 17 1 - 40 U/L 10/27/2024 2:38 AM [facility] Alkaline Phosphatase 117 39 - 117 U/L 10/27/2024 2:38 AM [facility] Total Bilirubin 0.3 0.0 - 1.2 mg/dL 10/27/2024 2:38 AM [facility] Globulin 3.0 gm/dL 10/27/2024 2:38 AM [facility] Comment:Calculated Result A/G Ratio 1.2 g/dL 10/27/2024 2:38 AM [facility] BUN/Creatinine Ratio 17.8 7.0 - 25.0 10/27/2024 2:38 AM [facility] Anion Gap 12.2 5.0 - 15.0 mmol/L 10/27/2024 2:38 AM [facility] eGFR 29.8(L) >60.0 mL/min/1.7 3 10/27/2024 2:38 AM [facility] Blood Structure of right upper limb / Unknown Line / Unknown 10/27/2024 1:56 AM EDT 10/27/2024 2:07 AM T [facility] - 10/27/2024 2:38 AM EDT GFR Categories in Chronic Kidney Disease (CKD) GFR Category GFR (mL/min/1.73) Interpretation G1 90 or greater Normal or high (1) G2 60-89 Mild decrease (1) G3a 45-59 Mild to moderate decrease G3b 30-44 Moderate to severe decrease G4 15-29 Severe decrease G5 14 or less Kidney failure (1)In the absence of evidence of kidney disease, neither GFR category G1 or G2 fulfill the criteria for CKD. eGFR calculation 2020 CKD-EPI creatinine equation, which does not include race as a factor us Neftali Driscoll MD LAB BLOOD ORDERABLES Final Re sult [facility]
[address] [place] [address], * CT Head Without Contrast (10/27/2024 1:42 AM EDT) Anatomical Region Laterality Modality Head N/A Computed Tomogra phy 10/27/2024 1:49 AM EDT Impressions 10/27/2024 1:50 AM EDT Impression: 1.No acute intracranial abnormality. 2.Mild chronic small vessel ischemic change. Electronically Signed: Lukas Chirinos MD 10/27/2024 1:50 AM EDT Workstation ID: [id number] Narrative 10/27/2024 1:[address] HEAD WO CONTRAST Date of Exam: 10/27/2024 1:39 AM EDT Indication: eval metastasis. Comparison: None available. Technique: Axial CT images were obtained of the head without contrast administration. Automated exposure control and iterative construction methods were used. Findings: Superficial soft tissues appear within normal limits. The calvarium is intact. Paranasal sinuses and mastoid air cells appear well aerated. There is thinning of the orbital lenses bilaterally suggesting prior lens replacement. There is no acute intracranial hemorrhage. No mass effect or midline shift. No abnormal extra-axial collections. Valle-white differentiation is within normal limits. There is mild patchy white matter hypoattenuation. The ventricles appear normal in size and configuration for the patient's age. There is intracranial vascular calcification. Procedure Note Lukas Chirinos MD - 10/27/2024 CT HEAD WO CONTRAST Date of Exam: 10/27/2024 1:39 AM EDT Indication: eval metastasis. Comparison: None available. Technique: Axial CT images were obtained of the head without contrastadministration. Automated exposure control and iterative constructionmethods were used. Findings: Superficial soft tissues appear within normal limits. The calvarium isintact. Paranasal sinuses and mastoid air cells appear well aerated.There is thinning of the orbital lenses bilaterally suggesting prior lensreplacement. There is no acute intracranial hemorrhage. No mass effect or midline shift. No abnormalextra-axial collections. Valle-white differentiation is within normallimits. There is mild patchy white matter hypoattenuation. The ventriclesappear normal in size and configuration for the patient's age. There is intracranial vascularcalcification. IMPRESSION: Impression: 1.No acute intracranial abnormality. 2.Mild chronic small vessel ischemic change. Electronically Signed: Lukas Chirinos MD 10/27/2024 1:50 AM EDT Workstation ID: [id number] Neftali Driscoll MD IMG CT ORDERABLES Final Resul t * (ABNORMAL) Microalbumin / Creatinine Urine Ratio - Urine, Clean Catch (05/18/2024 12:04 PM EDT) Microalbumin/C reatinine Ratio 57.7(H) 0.0 - 29.0 mg/g 05/19/2024 12:48 AM EDT [facility] Creatinine, Urine 53.7 mg/dL 05/19/2024 12:48 AM EDT [facility] Microalbumin, Urine 3.1 mg/dL 05/19/2024 12:48 AM EDT [facility] Urine Urine specimen obtained by clean catch procedure / Unknown Collection / Unknown 05/18/2024 12:04 PM EDT 05/18/2024 12:04 PM EDT Daniel Vasquez MD URINE ORDERABLES Final Re sult [facility] Organization Address City/State/ZIP Co de Phone Number [facility]
[address] [place], [place] [address] [phone] * (ABNORMAL) Lipid Panel (05/18/2024 12:04 PM EDT) Total Cholesterol 130 0 - 200 mg/dL 05/18/2024 11:44 PM EDT [facility] Triglycerides 66 0 - 150 mg/dL 05/18/2024 11:44 PM EDT [facility] [facility] HDL Cholesterol 61(H) 40 - 60 mg/dL 05/18/2024 11:44 PM EDT [facility] LDL Cholesterol 55 0 - 100 mg/dL 05/18/2024 11:44 PM EDT [facility] VLDL Cholesterol 14 5 - 40 mg/dL 05/18/2024 11:44 PM EDT [facility] LDL/HDL Ratio 0.91 05/18/2024 11:44 PM EDT [facility] Blood Structure of left upper limb / Unknown Venipuncture / Unknown 05/18/2024 12:04 PM EDT 05/18/2024 12:04 PM EDT Narrative [facility] - 05/18/2024 11:44 PM EDT [...] MD LAB BLOOD ORDERABLES Savanah l Result [facility]
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 PATIENT ADVANCE DIRECTIVES - SCAN 11/02/2024 2:50 PM CODE STATUS DNR, [facility], 10/18/2024 LIVING WILL - SCAN 10/17/2024 11:54 AM MADDIE ING WILL, CH[facility], 02/08/2024 * No CPR (Do Not Attempt to Resuscitate) (Latest Code Status on File) Date Activated Date Inactivated Comments 10/27/2024 4:07 AM 11/01/2024 8:25 PM Question Answer Comments Code Status (Patient has no pulse and is not breathing): No CPR (Do Not Attempt to Resuscitate) Medical Interventions (Patie nt has pulse or is breathing): Limited Support Medical Intervention Limits: No intubation (DNI) Level Of Support Discussed With: Patient * CPR (Attempt to Resuscitate) Date Activated Date Inactivated Comments 07/28/2023 2:18 [...] pulse or is breathing): Full Care Teams Flatwork Feeder Relationship Specialty Start Date End Date Christopher Yadav MD [facility] [address] [facility] [place] [address] PCP - General Internal Medicine 07/27/23
--- OUTSIDE RECORDS SUMMARY | 2025-01-01 14:29 | XMS_ITS | Encounter Summary ---
Author Organization [facility] ystem Address [address] [place] [address] Care Team Providers Care Biazzi Nitrator Operator Name Role Phone Christopher Yadav MD Primary Care Provider [phone] Encounter Details Date Type Department Care Team (Late st Contact Info) Description 11/15/2024 Readmission Management [facility] NURSE CALL CENTER [address] [place] [address] Farrukh Davalos, RN Social History Tobacco Use Types Packs/Day Years Used Date Smoking Tobacco: Former Smokeless Tobacco: Never Comments:quit 1980 Alcohol Use Standard Drinks/Week Comments No 0 (1 standard drink = 0.6 oz pur e alcohol) [facility] Utilities Answer Date Recorded In [...] Outreach Note - Farrukh Davalos RN - 11/15/2024 11:[address] [facility] Week 1 Survey Flowsheet Row Responses [facility] patient discharged from? [place] Does the patient have one of the following disease processes/diagnoses(primary or secondary)? CHF CHF Week 1 attempt successful? Yes Call start time 1102 Call end time 1105 Discharge diagnosis acute exacerbatin of CHF Person spoke with today (if not patient) and relationship pt Meds reviewed with patient/caregiver? Yes Is the patient having any side effects they believe may be caused by any medication additions or changes? No Does the patient have all medications ordered at discharge? Yes Prescription comments Dr. Jackson has started patient on Jardiance Is the patient taking all medications as directed (includes completed medication regime)? Yes Comments regarding appointments Dr. Jackson has been. He will f/u in November Does the patient have a primary care provider? Yes Comments regarding PCP Pt has f/u with PCP What is the Home health agency? [facility] Has home health visited the patient within 72 hours of discharge? Yes Home health comments P[facility] Ox monitoring None Psychosocial issues? No Did the patient receive a copy of their discharge instructions? Yes Nursing interventions Reviewed instructions with patient What is the patient's perception of their health status since discharge? Improving Is the patient able to teach back Heart Failure Zones? Yes CHF Zone this Call Green Zone Green Zone Patient reports doing well, No new or worsening shortness of breath Green Zone Interventions Meds as directed, Follow up visits planned CHF Week 1 call completed? Yes Is the patient interested in additional calls from an ambulatory case finishing machine adjuster? No Would this patient benefit from a Referral to [facility] Social Work? No Wrap up additional comments Pt doing well. He denies needs. Call end time 1105 FARRUKH Enriquez - Registered Nurse documented in this encounter Plan of Treatment Upcoming Encounters Date Type Department Care Team (Late st Contact Info) Description 06/19/2025 8:45 AM EDT Office Visit [facility] ENDOCRINOLOGY [address] [address] Daniel Vasquez MD [address] [facility] [address] [place] [address] documented as of this encounter Visit Diagnoses Not on filedocumented in this encounter Care Teams Biazzi Nitrator Operator Relationship Specialty Start Date End Date Christopher Yadav MD [address] [facility] [address] [facility] [address] [place] [address] PCP - General Internal Medicine 07/27/23 documented as of this encounter
--- OUTSIDE RECORDS SUMMARY | 2025-01-01 14:29 | XMS_ITS ---
Author Organization [employer] ([place], [place], [place], [place], [place]) Address [address] [place] [address] Care Team Providers Care Railroad Auditor Name Role Phone Christopher Yadav MD Primary Care Provider [phone] Active Problems Problem Noted Date Diagnosed Date [...] (chronic kidney disease), stage III 03/16/19 Current Treatment and Therapy Plans No current plan information found. Past Treatment and Therapy Plans ONCOLOGY TREATMENT Plan Name Start Date Discontinue Date Treatment Medications Discontinue Reason Plan Provider Cycles [facility] Prostate - leuprolide 22.5 mg (Eligard) every 84 days 4 09/17/2024 leuprolide acetate (3 month) (ELIGARD)sodiu m chloride 0.9 % (NS) Patient Preference Xochitl Serra MD 4 of 16 cycles started
--- OUTSIDE RECORDS SUMMARY | 2025-01-01 14:30 | XMS_ITS | Encounter Summary ---
Author Organization [facility] yste Address [address] [place] [address] Care Team Providers Care Electronic Warfare Officer Name Role Phone Christopher Yadav MD Primary Care Provider [phone] Reason for Visit * Reason Onset Date Comments MIERS-GLENDA 2 SENSORS 12/04/2024 Encounter Details Date Type Department Care Team (Late st Contact Info) Description 12/04/2024 Telephone [facility] ENDOCRINOLOG[facility] [address] [address] Daniel Vasquez MD [address] [address] MIERS-GLENDA 2 SENSORS Social History Tobacco Use Types Packs/Day Years Used Date Smoking Tobacco: Former Smokeless Tobacco: Never Comments:quit 1980 Alcohol Use Standard Drinks/Week Comments No 0 (1 standard drink = 0.6 oz pur e alcohol) [facility] Utilities Answer Date Recorded In the past 12 months has [employer], [employer], oil, or water [employer] threatened to shut off services in your [...] GED or equivalent No 10/30/2024 Preferred Language Fijian 10/30/2024 Sex and Gender Information Value Date Recorded Sex Assigned at Not on file Legal Sex Male 1:45 PM EDT Gender Identity Not on file Sexual Orientation Not on file documented as of this encounter Miscellaneous Notes * Telephone Encounter - Patricia Porter MA - 12/06/2024 11:37 AM EDT Spoke with patient. Advised that Medicare requires an appointment every 6 months in order to cover sensors. Will submit once office visit it completed on 12/19/2024. Patient verbalized understanding. * Telephone Encounter - Emi Wagner RegSched Rep - 12/05/2024 4:22 PM EDT Hub staff attempted to follow warm transfer process and was unsuccessful Caller: Braeden Palmer Relationship to patient: Self Best call back number: [phone] Patient is needing: PATIENT RETURNED CALL FROM OFFICE. SAID HIS PHONE RANG 2X AND STOPPED RINGING, NO MSG LEFT. PLEASE RETURN PATIENT'S CALL. * Telephone Encounter - Kirti Ledezma RegSched Rep - 12/05/2024 4:19 PM EDT Hub staff attempted to follow warm transfer process and was unsuccessful Caller: Braeden Palmer Relationship to patient: Self Best call back number: [phone] Patient is needing: PT RETURNING PATRICIA'S PHONE CALL ASKED FOR A CALL BACK PLEASE * Telephone Encounter - Patricia Porter MA - 12/05/2024 4:05 PM EDT Left message to return call. * Telephone Encounter - Kirti Ledezma RegSched Rep - 12/05/2024 3:56 PM EDT Hub staff attempted to follow warm transfer process and was unsuccessful Caller: Braeden Palmer Relationship to patient: Self Best call back number: [phone] Patient is needing: PT CALLING TO SPEAK WITH THE OFFICE ABOUT GETTING HIS SENSORS WANTED SOMEONE FROM THE OFFICE TO CALL HIM BACK TODAY. * Telephone Encounter - Abbie Quijano - 12/04/2024 2:48 PM EDT Provider: LEONCIO Caller: Braeden Palmer Relationship to Patient: Self Reason for Call: PATIENT IS NEEDING NEW ORDERS FOR HIS SENSORS TO BE SENT TO [facility]. HE USES GLENDA 2. PATIENT HAS HIS LAST ONE AND HAS HAD IT ON FOR 4 DAYS. documented in this encounter Plan of Treatment Upcoming Encounters Date Type Department Care Team (Late st Contact Info) Description 06/19/2025 8:45 AM EDT Office Visit [facility] ENDOCR[facility] [address] [address] Daniel Vasquez MD [address] [address] documented as of this encounter Visit Diagnoses Not on filedocumented in this encounter Care Teams Electronic Warfare Officer Relationship Specialty Start Date End Date Christopher Yadav MD [address] [facility] [address] [place] [address] PCP - General Internal Medicine 07/27/23 documented as of this encounter
--- OUTSIDE RECORDS SUMMARY | 2025-01-01 14:30 | XMS_ITS | Encounter Summary ---
Author Organization [facility] ystem Address [address] [place] [address] Care Team Providers Care Orthopedic Mechanic Name Role Phone Christopher Yadav MD Primary Care Provider [phone] Encounter Details Date Type Department Care Team (Late st Contact Info) Description 11/08/2024 Readmission Management [facility] NURSE CALL CENTER [address] [place] [phone] Farrukh Davalos, RN Social History Tobacco Use Types Packs/Day Years Used Date Smoking Tobacco: Former Smokeless Tobacco: Never Comments:quit 1980 Alcohol Use Standard Drinks/Week Comments No 0 (1 standard drink = 0.6 oz pur e alcohol) [facility] Utilities Answer Date Recorded In the past [...] GED or equivalent No 10/30/2024 Preferred Language Andorran 10/30/2024 Sex and Gender Information Value Date Recorded Sex Assigned at Not on file Legal Sex Male 1:45 PM EDT Gender Identity Not on file Sexual Orientation Not on file documented as of this encounter Miscellaneous Notes * Outreach Note - Farrukh Davalos RN - 11/08/2024 1:18 PM EDT [facility] Week 1 Survey Flowsheet Row Responses [facility] patient discharged from? [place] Does the patient have one of the following disease processes/diagnoses(primary or secondary)? CHF CHF Week 1 attempt successful? No Unsuccessful attempts Attempt 1 FARRUKH Enriquez - Registered Nurse documented in this encounter Plan of Treatment Upcoming Encounters Date Type Department Care Team (Late st Contact Info) Description 06/19/2025 8:45 AM EDT Office Visit [facility] ENDOCRINOLOGY [address] [facility] [address] [place] [address] Daniel Vasquez MD [address] [facility] [address] [place], [place] [id number] documented as of this encounter Visit Diagnoses Not on filedocumented in this encounter Care Teams Orthopedic Mechanic Relationship Specialty Start Date End Date Christopher Yadav MD 1210 [facility] [address] [place] [address] PCP - General Internal Medicine 07/27/23 documented as of this encounter
--- OUTSIDE RECORDS SUMMARY | 2025-01-01 14:30 | XMS_ITS | Encounter Summary ---
Author Organization [employer] ([place], [place], [place], [place], [place]) Address [address] [place] [address] Care Team Providers Care Marine Drafter Name Role Phone Christopher Yadav MD Primary Care Provider [phone] Encounter Details Date Type Department Care Team (Late st Contact Info) Description 08/23/2023 Telephone [facility] - [address] [place] [address] Wanda Peres, WARD MAID Social History Tobacco Use Types Packs/Day Years [...] Date Ehsan rded Speak language other than Albanian at home Not on file 03/11/2023 Want [...] Description 03/27/2025 3:00 PM EST Office Visit [facility] - [address] [place] [address] Arnol Courtney MD [address] [facility] [address] [place] [address] documented as of this encounter Visit Diagnoses Not on filedocumented in this encounter Care Teams Marine Drafter Relationship Specialty Start Date End Date Christopher Yadav MD [address] [place] [address] [place] [address] PCP - General General Internal Medicine 03/15/23 documented as of this encounter
--- OUTSIDE RECORDS SUMMARY | 2025-01-01 14:30 | XMS_ITS | Clinical Summary ---
Author Organization Healthcare Address [address] [place] [address] Care Team Providers Care Rooms Director Name Role Phone Christopher Yadav MD Primary Care Provider [phone] Allergies No known active allergies Medications amLODIPine [...] Vaccines (2 - Tdap) 02/28/2022 02/29/2012, 01/16/1998 [id number] Vaccine ( season) 2024 02/03/2023, 12/22/2021, 06/25/2021, Additional history exists UKY-Influenza [...] this topic Medical Devices Implanted Type Area Card Decorator Device Identifier Shelf Expiration Date Model / Serial / Lot Hip Hip Left: Hip Insurance MEDICARE [facility] Advance Directives Documents on File Type Date Recorded Patient Tire Care Manager Expl anation Advance Directives and Livin g Will 10/17/2024 11:31 AM Care Teams Rooms Director Relationship Specialty Start Date End Date Christopher Yadav MD [address] [facility] [address] [place] [address] PCP - General 07/11/20
--- OUTSIDE RECORDS SUMMARY | 2025-01-01 14:30 | XMS_ITS | Encounter Summary ---
Author Organization [employer] ([place], [place], [place], [place], [place]) Address [address] [place] [address] Care Team Providers Care Valve Pipe Irrigator Name Role Phone Christopher Yadav MD Primary Care Provider [phone] Encounter Details Date Type Department Care Team (Late st Contact Info) Description 08/04/2023 Surgery Prep [facility] Urology - [address] [address] Samuel Mata MD [address] [address] Elevated PSA (Primary Dx) Social [...] Description 03/27/2025 3:00 PM EST Office Visit [facility] - [address] [place] [address] Arnol Courtney MD [address] [facility] [address] [place] [address] documented as of this encounter Visit Diagnoses Diagnosis Elevated PSA- Primary Elevated prostate specific antigen (PSA) documented in this encounter Care Teams Valve Pipe Irrigator Relationship Specialty Start Date End Date Christopher Yadav MD [address] [place] [facility] [address] [place] [address] PCP - General General Internal Medicine 03/15/23 documented as of this encounter
[2025-01-01 15:05] LABS: Reticulocyte % (Auto) 1.4 % (0.9-3.2)
[2025-01-01 16:53] LABS: Thyroid Stimulating Hormone 1.62 uIU/mL (0.465-4.68)
[2025-01-01 17:12] LABS: Vitamin B12 428 pg/mL (239-931)
[2025-01-01 17:46] LABS: Folate 8.58 ng/mL
== END 2025-01-01 23:59 | disposition home or self-care (01) ==
LOC: LAB 14:25
PROVIDERS: PCP Internal Medicine; Visit Provider Internal Medicine Gastroenterology
DX: D53.9 Nutritional anemia, unspecified (principal)
CPT/HCPCS: 36415; 82607; 82746; 84443; 85044

== ENCOUNTER 2025-01-09 09:30 | Day surgery (SDC) | payer MEDICARE, BC, SELFPAY ==
[2025-01-04 14:29] VITALS: BMI 35.2
--- NOTE | 2025-01-06 11:32 | EXP.HP ---
History of Present Illness *Admission Date: 01/09/25 *History of present illness: Mr. Palmer is an 84-year-old gentleman who is here for diagnostic EGD which is being performed because of his GERD, reflux and fluid regurgitation. The patient has been seen by ENT (Liang Alonzo MD) and placed on omeprazole. This was later switched to pantoprazole. He does state that this helps a little bit but he continues to have fluid coming up especially when he lies down at nighttime. He also reports a loss of appetite/anorexia with weight loss daily. He has had some belching, bloating and gassiness. He reports no dysphagia. He does report some early satiety. He does state that his bowel movements are regular and incomplete. He reports no cough or frequent clearance of the throat. He formerly had some nausea but not recently. His last EGD with me was more than 20 years ago. The patient did have CT scan of the abdomen and pelvis in August 2024 that showed no acute findings but there was gallstones and diverticulosis. There was also some pancreatic atrophy. There was some hepatomegaly and a very small hiatal hernia on the CAT scan. The examination is deemed medically necessary for diagnostic EGD. The patient has been seen, interviewed and examined prior to the procedure by both myself and the anesthesia provider. [facility] Disclaimer: The information contained in this section may have been updated after the patient was seen, as this information can be updated by other users. Medical History Dyspnea Ingrown toenail of left foot Acute hypoxic respiratory failure Elevated troponin Acute hyponatremia Hypomagnesemia Encounter for laboratory testing for COVID-19 virus Atrial fibrillation Sepsis Diabetic ulcer of left great toe GERD (gastroesophageal reflux disease) Bruise of toe Hypertension Ingrown nail of great toe of left foot Postoperative dehiscence of skin wound Blister of fifth toe, left Encounter for dialysis DIALYSIS X2 IN PAST Tear of retina RIGHT History of COVID-19 History of cataract Edema BLE Osteomyelitis of toe of left foot Other specified symptoms and signs involving the circulatory and respiratory systems Cellulitis of left foot Renal disease HTN (hypertension), benign HLD (hyperlipidemia) T2DM (type 2 diabetes mellitus) Coronary artery disease Anxiety Pain around toenail Onychomycosis Surgical History Hx of cataract surgery Hx of colonoscopy History of surgery JAW SX History of coronary artery stent placement Hx of cardiac cath Family History Other Diabetes Heart attack Social History Smoking Status: Former smoker tobacco type: cigarettes alcohol intake: never substance use type: denies use current occupational status: retired Travel in the last 8 weeks?: None Have you lived/traveled outside US in past 30 days?: No Contact w/someone who lives/traveled outside US past 30 days?: No Exposure to someone with infectious disease in past 14 days?: No Do you have a fever (greater than 100.4 F or 38 C)?: No Have you tested positive for COVID-19?: No Exposed to someone with COVID-19 in past 14 days?: No Do you have a sore throat?: No Do you have a cough?: No Do you have any weakness?: No Are you experiencing any nausea/vomitting?: No Do you have any diarrhea?: No Are you experiencing any unusual bleeding?: No Do you have any muscle aches/pain?: No Do you have any abdominal pain?: No Are you experiencing loss of taste or smell?: No Other Medical History Have you received the Flu Vaccine for this season: No Have you received the Pneumonia Vaccine: Yes Review of Systems Review of Systems Review of systems (narrative): Negative *Cardiovascular Comments: Negative *Gastrointestinal Comments: Negative *Genitourinary Comments: Negative *Musculoskeletal Comments: Negative *Neurologic Comments: Negative Meds Home Medications and Allergies Home Medications ?Medication ?Instructions ?Recorded ?Confirmed ?Type gabapentin 300 mg capsule 300 mg PO TID #270 caps 07/06/24 01/09/25 Rx allopurinol 100 mg tablet 100 mg PO BID #180 tabs 08/06/24 01/09/25 Rx cholecalciferol (vitamin D3) 50 50 mcg PO DAILY 09/26/24 01/09/25 History mcg (2,000 unit) capsule (Vitamin D3) mecobalamin (vitamin B12) 1,000 1,000 mcg PO DAILY 09/26/24 01/09/25 History mcg chewable tablet (B12 Active) furosemide 40 mg tablet 40 mg PO BIDP PRN Edema 10/10/24 01/09/25 History insulin human U-100 NPH-regulr 20 unit SQ HS 10/15/24 01/09/25 History 70-30 mix 100 unit/mL subcutaneous susp (Novolin 70/30 U-100 Insulin) insulin human U-100 NPH-regulr 35 unit SQ AM 10/15/24 01/09/25 History 70-30 mix 100 unit/mL subcutaneous susp (Novolin 70/30 U-100 Insulin) simvastatin 40 mg tablet 40 mg PO HS #90 tabs 10/25/24 01/09/25 Rx calcitriol 0.25 mcg capsule 0.25 mcg PO MOWEFR #108 caps 11/06/24 01/09/25 Rx polyethylene glycol 3350 17 gram 17 g PO DAILY 11/06/24 01/09/25 History oral powder packet apixaban 5 mg tablet (Eliquis) 2.5 mg (1/2 x 5 mg) PO BID 30 days 11/27/24 01/09/25 Rx #60 tabs carvedilol 3.125 mg tablet 3.125 mg PO BID #180 tabs 11/27/24 01/09/25 Rx tamsulosin 0.4 mg capsule 0.4 mg PO HS #90 caps 11/27/24 01/09/25 Rx escitalopram oxalate 5 mg tablet 5 mg PO DAILY #30 tabs 11/28/24 01/09/25 Rx pantoprazole 40 mg tablet,delayed 40 mg PO DAILY #30 tabs 12/18/24 01/09/25 Rx release clopidogrel 75 mg tablet 75 mg PO DAILY #90 tabs 12/31/24 01/09/25 Rx New Prescriptions to Start Prescriptions: Allergies Allergy/AdvReac Type Severity Reaction Status Date / Time No Known Allergies Allergy Verified 01/09/25 11:17 Exam Data for Last 24 hours I & O for Last 24 hours: Intake & Output 01/03/25 01/04/25 01/05/25 01/06/25 23:59 23:59 23:59 23:59 Weight 260 lb *Routine HEENT Exam Head: Present normocephalic Eye: Present EOMI and PERRL ENT: Present mucous membranes moist *Routine Neck Exam Neck: Present supple *Routine Respiratory Exam Respiratory: Present CTA bilaterally *Routine Cardiovascular Exam Cardiovascular: Present RRR *Routine Abdominal Exam Abdominal: Present soft and normoactive bowel sounds; Absent tenderness *Routine Rectal Exam Rectal:: deferred *Routine Genitalia Exam Genitalia:: deferred *Routine Extremities Exam Extremities: Absent cyanosis, clubbing or edema *Routine Skin Exam Skin: Present warm; Absent rash *Routine Neurological Exam Neurological: Present alert and oriented X3 Assessment and Plan *Assessment and plan (1) Abnormal weight loss: Status: Acute Category: Medical Code(s): R63.4 - Abnormal weight loss (2) Early satiety: Status: Acute Category: Medical Code(s): R68.81 - Early satiety (3) GERD (gastroesophageal reflux disease): Status: Acute Category: Medical Code(s): K21.9 - Gastro-esophageal reflux disease without esophagitis (4) Loss of appetite: Status: Acute Category: Medical Code(s): R63.0 - Anorexia (5) Regurgitation of food: Status: Acute Category: Medical Code(s): R11.10 - Vomiting, unspecified (6) Bloating: Status: Acute Category: Medical Code(s): R14.0 - Abdominal distension (gaseous) (7) Belching: Status: Acute Category: Medical Code(s): R14.2 - Eructation Plan A/P: 1. GERD with fullness, loss of appetite and weight loss is the preprocedural diagnosis. The patient does report some food regurgitation as well as bloating and belching the patient will be anesthetized/sedated using MAC sedation. The patient has been seen and examined. Cardiac and lung assessment prior to the examination is stable. Proceed with planned diagnostic EGD.
--- NOTE | 2025-01-09 07:02 | HMH.PROCNOTE ---
[facility] Procedure Note Date: 01/09/25 Time: 12:06 Procedure Note:: Upper Endoscopy Procedure Report: Esophagogastroduodenoscopy with cold biopsies and TTS balloon dilation Endoscopost: Dale Hauser II, MD Referring Physician: Christopher Yadav MD Date of Procedure: January 09, 2025 Equipment: Olympus GIF-1100 standard upper endoscope Sedation: MAC sedation Indications: Mr. Palmer is an 84-year-old gentleman who is here for diagnostic EGD. The patient does have GERD/reflux and fluid regurgitation. The patient has been seen by ENT (Liang Alonzo MD) and placed on omeprazole. This was later switched to pantoprazole. He does state that this helps a little bit but he continues to have fluid coming up especially when he lies down at nighttime. He also reports a loss of appetite/anorexia with weight loss daily. He has had some belching, bloating and gassiness. He reports no dysphagia. He does report some early satiety. He does state that his bowel movements are regular and incomplete. He reports no cough or frequent clearance of the throat. He formerly had some nausea but not recently. His last EGD with [facility] was more than 20 years ago. The patient did have CT scan of the abdomen and pelvis in August 2024 that showed no acute findings but there was gallstones and diverticulosis. There was also some pancreatic atrophy. There was some hepatomegaly and a very small hiatal hernia on the CAT scan. The patient had a macrocytic anemia and his B12 and folate levels were normal he had a normal TSH level (1.62). He was given samples of Creon. The examination is deemed medically necessary for diagnostic EGD. Procedure: Prior to the procedure, a history and physical exam was performed, and patient's medications and allergies were reviewed. The risks, benefits and alternatives of the sedation and procedure were discussed with the patient. All questions were answered and informed consent was obtained. The patient was brought to the procedure room. Patient identification and proposed procedure were verified by the physician and the nurse. The patient was placed in a left lateral decubitus position and the scope was passed under direct vision. Throughout the procedure, the patient's blood pressure, pulse, and oxygen saturations were monitored continuously. The upper GI endoscopy was accomplished without difficulty. The patient tolerated the procedure well. Findings: The scope was passed directly into the upper esophagus and advanced to the third portion of the duodenum. The post bulbar duodenum, ampulla and duodenal bulb were normal with normal mucosa and conniventes. 2 cold biopsies were taken from the second portion of the duodenum for the disaccharidase assay. The scope was withdrawn through a normal duodenal bulb and pylorus into the stomach. There was bile reflux with mild to moderate linear reactive gastropathy of the antrum. The body and fundus of the stomach were normal. Cold biopsies were taken from the antrum and incisura to rule out H. pylori. Upon retroflexion there was a small 2 cm hiatal hernia. The scope was then withdrawn into the esophagus. There was a distal Schatzki's ring that appeared to be insignificant. There was no evidence of reflux esophagitis or Carbajal's. There were tertiary contractions and evidence of mild esophageal dysmotility. The entire esophagus was dilated to 60 [place]/20 mm with a TTS hydrostatic balloon. The remainder of the esophageal mucosa was normal. Impression: 1. Nonerosive GERD with mild esophageal dysmotility and small sliding hiatal hernia (2 cm) 2. Insignificant Schatzki's ring?dilated to 20 mm 3. Bile reflux with mild to moderate linear reactive gastropathy Plan: I will follow-up the biopsies and disaccharidase assay. We will discuss additional treatment options.
[2025-01-09 11:30] VITALS: BP 166/69; PULSE 72; RESP 16; TEMP 36.2; O2SAT 94; BMI 35.2
[2025-01-09] MEDS: LACTATED RINGERS 1000ML 1,000 ML 50 ML IV (11:39)
[2025-01-09 11:43] LABS: POC Glucose,Bedside 170 gm/dL (70-110)
--- NOTE | 2025-01-09 11:51 | P.PNANES_ITS ---
[facility] Disclaimer: The information contained in this section may have been updated after the patient was seen, as this information can be updated by other users. Medical History Dyspnea Ingrown toenail of left foot Acute hypoxic respiratory failure Elevated troponin Acute hyponatremia Hypomagnesemia Encounter for laboratory testing for COVID-19 virus Atrial fibrillation Sepsis Diabetic ulcer of left great toe GERD (gastroesophageal reflux disease) Bruise of toe Hypertension Ingrown nail of great toe of left foot Postoperative dehiscence of skin wound Blister of fifth toe, left Encounter for dialysis DIALYSIS X2 IN PAST Tear of retina RIGHT History of COVID-19 History of cataract Edema BLE Osteomyelitis of toe of left foot Other specified symptoms and signs involving the circulatory and respiratory systems Cellulitis of left foot Renal disease HTN (hypertension), benign HLD (hyperlipidemia) T2DM (type 2 diabetes mellitus) Coronary artery disease Anxiety Pain around toenail Onychomycosis Surgical History Hx of cataract surgery Hx of colonoscopy History of surgery JAW SX History of coronary artery stent placement Hx of cardiac cath Family History Other Diabetes Heart attack Social History Smoking Status: Former smoker tobacco type: cigarettes alcohol intake: never substance use type: denies use current occupational status: retired Travel in the last 8 weeks?: None Have you lived/traveled outside US in past 30 days?: No Contact w/someone who lives/traveled outside [place] past 30 days?: No Exposure to someone with infectious disease in past 14 days?: No Do you have a fever (greater than 100.4 F or 38 C)?: No Have you tested positive for COVID-19?: No Exposed to someone with COVID-19 in past 14 days?: No Do you have a sore throat?: No Do you have a cough?: No Do you have any weakness?: No Are you experiencing any nausea/vomitting?: No Do you have any diarrhea?: No Are you experiencing any unusual bleeding?: No Do you have any muscle aches/pain?: No Do you have any abdominal pain?: No Are you experiencing loss of taste or smell?: No [facility] Anesthesia Checklist Patient Identification Patient Identification: Arm Band and Verbal (Name & ) Structural Data Admitted From: Home Planned Operative Procedure/s: EGD Consent for Planned Operative Procedure(s) Verified: Yes Verified Documents: Surgical Consent NPO Status Verified Time NPO: 00:00 Additional verifications Anesthesia Reactions: No Hx Blood Transfusions: No Blood Transfusion Reaction: No Airway Assessment Mallampati Score:: Class II C-Spine Mobility Assessed: Yes TMJ Mobility Assessed: Yes Dentition: Good Dentition Neurological Assessment Level of Consciousness: Awake, Alert and Appropriate Hx Seizures: No Numbness or tingling in extremities: No Anesthesia Plan Anesthesia Risk discussed: Yes Anesthesia Plan: Verified ASA Class: II Anesthesia Type: MAC
[2025-01-09 12:08] VITALS: BP 125/83; PULSE 77; RESP 15; TEMP 36.3; O2SAT 92
[2025-01-09 12:18] VITALS: BP 128/77; PULSE 58; RESP 18; O2SAT 94
[2025-01-09 12:28] VITALS: BP 141/66; PULSE 60; RESP 18; O2SAT 94
[2025-01-09 12:38] VITALS: BP 138/79; PULSE 61; RESP 18; O2SAT 95
[2025-01-14 13:10] LABS: Interpretation Notes (.); Lactase 5.74 (>/= 14.0); Maltase 41.06 (>/= 110.0); Palatinase 2.72 (>/= 8.5); Reference Notes (.); Sucrase 2.41 (>/= 25.0)
== END 2025-01-09 12:38 | disposition home or self-care (01) ==
PROVIDERS: PCP Internal Medicine; Visit Provider Internal Medicine Gastroenterology
PROC: 0DJ08ZZ Inspection of Upper Intestinal Tract, Via Natural or Artificial Opening Endoscopic (ICD-10-PCS; CPT 43239; principal; 2025-01-09 11:30)
DX: K21.9 Gastro-esophageal reflux disease without esophagitis (principal); K22.4 Dyskinesia of esophagus; K44.9 Diaphragmatic hernia without obstruction or gangrene; K22.2 Esophageal obstruction; K31.89 Other diseases of stomach and duodenum; E78.5 Hyperlipidemia, unspecified; I10 Essential (primary) hypertension; I48.91 Unspecified atrial fibrillation; I25.10 Atherosclerotic heart disease of native coronary artery without angina pectoris; E11.621 Type 2 diabetes mellitus with foot ulcer; L97.529 Non-pressure chronic ulcer of other part of left foot with unspecified severity; Z79.02 Long term (current) use of antithrombotics/antiplatelets; Z79.01 Long term (current) use of anticoagulants; Z79.4 Long term (current) use of insulin; Z87.891 Personal history of nicotine dependence; Z95.5 Presence of coronary angioplasty implant and graft
CPT/HCPCS: 43239; 43249; 82657; 82962; 88305; C1726; J2003; J2704; J7120

== ENCOUNTER 2025-02-11 11:30 | Outpatient (CLI) | payer MEDICARE, BC, SELFPAY ==
--- OUTSIDE RECORDS SUMMARY | 2024-12-19 10:00 | XMS_ITS | Encounter Summary ---
Author Organization [facility] yste Address [address] [place] [address] Care Team Providers Care Architecture Manager Name Role Phone Christopher Yadav MD Primary Care Provider [phone] Reason for Visit * Reason Comments Diabetes Type II Diabetes Encounter Details Date Type Department Care Team (Late st Contact Info) Description 12/19/2024 11:00 AM EDT Office Visit [facility] [address] [facility] [address] [place] [phone] Daniel Vasquez MD [address] [facility] [address] [place] [address] Uncontrolled type 2 diabetes mellitus with hyperglycemia (Primary Dx); Primary hypertension; Mixed hyperlipidemia; Coronary artery disease involving [place] coronary artery of [place] heart without angina pectoris Social History Tobacco Use Types Packs/Day Years Used Date Smoking Tobacco: Former Smokeless Tobacco: Never Comments:quit 1980 Alcohol Use Standard Drinks/Week Comments No 0 (1 standard drink = 0.6 oz pur e alcohol) [facility] Utilities Answer Date Recorded In the past 12 months has [employer], gas, oil, or water [employer] threatened to shut off services in your [...] GED or equivalent No 10/30/2024 Preferred Language Welsh 10/30/2024 Sex and Gender Information Value Date [...] Diabetes will be reassessed in 6 months. 7 Cups of Tea Iqra 2 CGM was downloaded today. Data [...] pastwith insulin. Current treatments: jardiance (started by academic program specialist) and premix insulin. Number ofinsulin shots per day: 2. Checks blood sugar 288 times a day - on FreeStyle Iqra 2. Has low blood sugar: occ nocturnal. Aspirin use: Yes. Statin use: Yes. YAEL-I/ARB use: No. Changes in health since last visit: hospital admission for CHF exacerbation. Last eye exam 11/2023. Subjective Diabetic Complications: Eyes: Yes - laser surgery Kidneys: Yes - sees clinical technologist Feet: No Heart: Yes - stents Diet [...] Diabetes will be reassessed in 6 months. 7 Cups of Tea Iqra 2 CGM was downloaded today. Data [...] next visit. 4. Coronary artery disease involving [place] coronary artery of [place] heart without angina pectoris Assessment & Plan: [...] Care Team (Late st Contact Info) Description 03/19/2025 1:15 PM EST Appointment [place] [id number] [facility], [facility] [address] [place] [id number] Huma Rich, ALEX 06/19/2025 8:45 AM EDT Office Visit [facility] [address] [facility] [address] [place] [phone] Daniel Vasquez MD [address] [facility] [address] [place] [address] documented as of this encounter [...] Hemoglobin A1C 7.7(A) 4.5 - 5.7 % [facility] Lot Number [id number] [facility] Expiration Date 07/27/2026 [facility] Blood 12/19/2024 11:1 8 AM EDT Daniel Vasquez MD POINT OF CARE TEST ORDERA BLES Final Result [facility]
[address] [place] [id number], * (ABNORMAL) POC Glucose, Blood (12/19/2024 11:15 AM EDT) Glucose 196(A) 70 - 130 mg/dL Lot Number [id number] Expiration Date 05/14/2025 Blood 12/19/2024 11:1 5 AM EDT us Daniel Vasquez MD POINT OF CARE TEST ORDERA BLES Final Result documented in this encounter Visit Diagnoses Diagnosis Uncontrolled type 2 diabetes mellitus with hyperglycemia- Primary Primary hypertension Unspecified essential hypertension Mixed hyperlipidemia Coronary artery disease involving [place] coronary artery of [place] heart without angina pectoris documented in this encounter Care Teams Architecture Manager Relationship Specialty Start Date End Date Christopher Yadav MD [facility] [address] [place] [address] PCP - General Internal Medicine 07/27/23 documented as of this encounter
--- OUTSIDE RECORDS SUMMARY | 2024-12-26 13:35 | XMS_ITS | Encounter Summary ---
Author Organization [employer] ([place], [place], [place], [place], [place]) Address [address] [place] [address] Care Team Providers Care Workers' Compensation Claims Examiner Name Role Phone Christopher Yadav MD Primary Care Provider [phone] Reason for Visit * Reason Comments Follow-up Prostate Cancer Encounter Details Date Type Department Care Team ([facility] st Contact Info) Description 12/26/2024 2:35 PM EDT Office Visit [facility] - [address] [place] [address] Arnol Courtney MD [address] [facility] [address] [place] [address] Prostate cancer (HCC) (Primary Dx) Social History Tobacco Use Types [...] Date Ehsan rded Speak language other than Cypriot at home Not on file 03/11/2023 Want [...] documented in this encounter Progress Notes * Arnol Courtney MD - 12/26/2024 2:35 PM EDT Chief Complaint: History of Present Illness: Braeden Palmer is a 84 y.o. male who presents today for follow up of prostate cancer. He was treatedfor 1 year for metastatic disease. He discontinued both Zytiga and Eligard in August. He says it madehim tired. He denies any bone pain or discomfort today. He did have some blood test before he came to see me. He denies other additional new concerns Past Medical History: Diagnosis Date Arthritis Coronary artery disease Diabetes mellitus (HCC) Elevated PSA Fluid retention in legs GERD (gastroesophageal reflux disease) Gout High cholesterol Hypertension Left hip pain Neuropathy Prostate cancer (HCC) Urinary retention Urinary retention Vitamin D deficiency Past Surgical History: Procedure Laterality Date ARTHROPLASTY,HIP-ANTERIOR APPROACH Left 03/21/2023 Procedure: LEFT TOTAL HIP ARTHROPLASTY, DIRECT ANTERIOR APPROACH; Surgeon: Eric Parkinson MD; Location: [facility]; Service: Orthopaedic Surgery; Laterality: Left; EXACTECH, HANA TABLE, C-ARM & PRINTER, CELL SAVER COLONOSCOPY multiple CORONARY ANGIOPLASTY WITH STENT PLACEMENT EYE SURGERY Bilateral catract extraction MANDIBLE SURGERY [place] BX PROSTATE STRTCTC SATURATION SAMPLING IMG GID N/A 08/16/2023 Procedure: BIOPSY, PROSTATE, PERINEAL APPROACH; Surgeon: Samuel Mata MD; Location: [facility]; Service: Urology; Laterality: N/A; [facility] [phone] Cancer History: Oncology History Prostate cancer (HCC) 08/23/2023 Cancer Staged Staging form: Prostate, AJCC 8th Edition, Pathologic stage from 08/23/2023: No Stage Recommended (pT2, cN1, cM1b, PSA: 32, Grade Group: 5) - Signed by Xochitl Serra MD on 12/20/2023 09/14/2023 Initial Diagnosis Prostate cancer (HCC) 08/23/2023 A. Jhon 4+4=8, PSA 32 at diagnosis B. Eligard 08/2023-08/2024, PSA 0 at dicontinuation C. Zytiga 08/2023-08/2024 D. PSMA PET at diagnosis with prostate left supraclav and bone mets 09/27/2023 - 06/18/2024 Chemotherapy Treatment Summary Treatment goal Palliative Plan Name [facility] Prostate - leuprolide 22.5 mg (Eligard) every 84 days Status Inactive Start Date 09/27/2023 End Date 06/18/2024 Provider Xochitl Serra MD Chemotherapy leuprolide (3 month) (ELIGARD) injection 22.5 mg, 22.5 mg, subcutaneous, Once, 4 of 16cycles Administration: 22.5 mg (09/27/2023), 22.5 mg (12/20/2023), 22.5 mg (03/20/2024), 22.5 mg (06/18/2024) Allergies: Patient has no known allergies. Medications: Current Outpatient Medications on File Prior to Visit Medication Sig Dispense Refill acetaminophen (TYLENOL) 325 MG tablet Take 2 tablets (650 mg total) by mouth every 6 (six) hours asneeded for pain. allopurinoL (ZYLOPRIM) 100 MG tablet Take 1 tablet (100 mg total) by mouth daily. calcitrioL (ROCALTROL) 0.25 MCG capsule Take 1 capsule (0.25 mcg total) by mouth 3 (three) times a week MON/WED/FRI. carvediloL (COREG) 3.125 MG tablet Take 1 tablet (3.125 mg total) by mouth 2 (two) times daily. cholecalciferol, vitamin D3, 50 mcg (2,000 unit) cap daily. clopidogreL (PLAVIX) 75 mg tablet Take 1 tablet (75 mg total) by mouth daily. cyanocobalamin 1000 MCG tablet Take 1 tablet (1,000 mcg total) by mouth daily. Eliquis 5 MG tablet Take 0.5 tablets (2.5 mg total) by mouth 2 (two) times daily. empagliflozin (Jardiance) 10 mg tablet Take 1 tablet (10 mg total) by mouth daily. escitalopram (LEXAPRO) 5 MG tablet Take 1 tablet (5 mg total) by mouth daily. gabapentin (NEURONTIN) 300 MG capsule 1 capsule in the morning and 2 capsules at night insulin 70/30, insulin NPH-insulin regular, (HumuLIN 70/30) 100 unit/mL (70-30) injection Inject 58Units under the skin Dosing according to Blood Glucose level 48 units AM 22-28 units PM. pantoprazole (PROTONIX) 40 MG tablet Take 1 tablet (40 mg total) by mouth Daily (0600). polyethylene glycol (MIRALAX) 17 gram/dose powder Take 17 g by mouth daily. predniSONE (DELTASONE) 5 MG tablet Take 1 tablet (5 mg total) by mouth daily with breakfast Look-alike/Sound-alike medication. simvastatin (ZOCOR) 40 MG tablet Take 1 tablet (40 mg total) by mouth nightly. tamsulosin (FLOMAX) 0.4 mg Cap 24 hr capsule SMARTSI Capsule(s) By Mouth Every Evening [DISCONTINUED] amLODIPine (NORVASC) 5 MG tablet Take 1 tablet (5 mg total) by mouth daily. [DISCONTINUED] aspirin 81 MG EC tablet Take 1 tablet (81 mg total) by mouth daily. [DISCONTINUED] busPIRone (BUSPAR) 10 MG tablet [DISCONTINUED] coenzyme Q10 100 mg capsule Take 1 capsule (100 mg total) by mouth daily. [DISCONTINUED] famotidine (PEPCID) 20 MG tablet Take 1 tablet (20 mg total) by mouth daily. [DISCONTINUED] furosemide (LASIX) 20 MG tablet Take 2 tablets (40 mg total) by mouth daily. [DISCONTINUED] hydrALAZINE (APRESOLINE) 10 MG tablet Take 1 tablet (10 mg total) by mouth 2 (two) times daily. [DISCONTINUED] sulfamethoxazole-trimethoprim (Bactrim DS) 800-160 mg per tablet Take 1 tablet by mouth 2 (two) times daily. 6 tablet 0 No current facility-administered medications on file prior to visit. Review of Systems: Review of Systems All other systems reviewed and are negative. Vitals: There were no vitals filed for this visit. Physical Exam: Physical Exam Vitals reviewed. Constitutional: Appearance: Normal appearance. HENT: Head: Normocephalic and atraumatic. Mouth/Throat: Mouth: Mucous membranes are moist. Pharynx: Oropharynx is clear. Eyes: Extraocular Movements: Extraocular movements intact. Conjunctiva/sclera: Conjunctivae normal. Pupils: Pupils are equal, round, and reactive to light. Neck: Comments: No cervical supraclavicular or axillary adenopathy Cardiovascular: Rate and Rhythm: Normal rate and regular rhythm. Pulses: Normal pulses. Heart sounds: Normal heart sounds. Pulmonary: Effort: Pulmonary effort is normal. Breath sounds: Normal breath sounds. Comments: No dullness to percussion in the lung bases bilaterally Abdominal: General: Abdomen is flat. Bowel sounds are normal. Palpations: Abdomen is soft. Comments: No hepatomegaly below the right costal margin Musculoskeletal: General: Normal range of motion. Cervical back: Normal range of motion and neck supple. Comments: No areas of significant bone pain Neurological: General: No focal deficit present. Mental Status: He is alert. Mental status is at baseline. Comments: No deficits. He does walk with a cane Relevant Results: Lab Patient Walk-In on 12/06/2024 Component Date Value Ref Range Status WBC 12/06/2024 7.8 4.8 - 10.8 K/??L Final RBC 12/06/2024 3.15 (L) 3.80 - 5.20 M/??L Final Hemoglobin 12/06/2024 10.4 (L) 12.8 - 17.4 GM/DL Final Hematocrit 12/06/2024 32.4 (L) 39.0 - 51.0 % Final MCV 12/06/2024 103 (H) 81 - 101 fL Final MCH 12/06/2024 33.0 27.0 - 34.0 pg Final MCHC 12/06/2024 32.1 32.0 - 36.0 GM/DL Final RDW 12/06/2024 15.4 (H) 11.5 - 14.5 % Final Platelets 12/06/2024 176 150 - 400 K/CU MM Final MPV 12/06/2024 10.2 9.4 - 12.4 fL Final Nucleated Red Blood Cell 12/06/2024 0.0 0 - 0.2 % Final % Neutros 12/06/2024 71 37 - 80 % Final % Lymphs 12/06/2024 19 10 - 50 % Final % Monos 12/06/2024 9 5 - 13 % Final % Eos 12/06/2024 1 0 - 7 % Final % Baso 12/06/2024 0 0 - 3 % Final NRBC Absolute 12/06/2024 <0.01 0 - 0.012 K/ul Final # Neutros 12/06/2024 5.50 2.00 - 6.90 K/??L Final # Lymphs 12/06/2024 1.50 0.60 - 3.40 K/??L Final # Monos 12/06/2024 0.67 0.00 - 0.90 K/??L Final # Eos 12/06/2024 0.06 0.00 - 0.70 K/??L Final # Baso 12/06/2024 0.02 0.00 - 0.20 K/??L Final % Imm Grans 12/06/2024 0.30 % Final # IG 12/06/2024 0.02 (H) 0.00 - 0.00 K/uL Final Sodium 12/06/2024 142 136 - 145 meq/L Final Potassium 12/06/2024 4.3 3.5 - 5.1 meq/L Final Chloride 12/06/2024 102 98 - 107 meq/L Final CO2 12/06/2024 32 21 - 32 meq/L Final Calcium 12/06/2024 8.6 8.5 - 10.1 mg/dL Final Glucose 12/06/2024 157 (H) 74 - 100 mg/dL Final BUN 12/06/2024 32 (H) 7 - 18 mg/dL Final Creatinine 12/06/2024 2.09 (H) 0.70 - 1.20 mg/dL Final BUN/Creatinine 12/06/2024 15 Final Albumin 12/06/2024 3.4 3.4 - 5.0 g/dL Final Alkaline Phosphatase 12/06/2024 96 46 - 116 U/L Final ALT 12/06/2024 10 (L) 12 - 78 U/L Final AST 12/06/2024 11 (L) 15 - 37 U/L Final Total Bilirubin 12/06/2024 0.5 0.2 - 1.0 mg/dL Final Protein, Total 12/06/2024 6.9 6.4 - 8.2 gm/dL Final Anion Gap 12/06/2024 12 11 - 22 Final A/G Ratio 12/06/2024 1.0 Final Globulin 12/06/2024 3.5 g/dL Final Osmolality Calc 12/06/2024 293.3 mOsm/kg Final eGFR (mL/min/1.73m2) 12/06/2024 30 (L) >=60 mL/min/1.73m2 Final ESTIMATED GFR IS NOT ACCURATE CREATININE CLEARANCE IN PREDICTING GLOMERULAR FILTRATION RATE. ESTIMATED GFR IS NOT APPLICABLE FOR DIALYSIS PATIENTS. PSA Diagnostic 12/06/2024 <0.10 0.00 - 4.00 ng/mL Final [place] Alinity i chemiluminescent immunoassay was used to obtain results. Results determined by assays using different manufacturers or methods may not be comparable. Testosterone by Immunoassay 12/06/2024 <3 (L) 300 - 720 ng/dL Final INTERPRETIVE INFORMATION: Testosterone by Immunoassay Testosterone immunoassays are both imprecise and inaccurate at low testosterone concentrations, such as those found in children and cisgender females. For these individuals, testing by mass spectrometry is recommended; refer to Testosterone (Adult Females, Children, or Individuals on Testosterone-Suppressing Hormone Therapy) ([facility] test code [id number]). Free or bioavailable testosterone measurements may provide supportive information. For individuals on testosterone hormone therapy, refer to cisgender male reference intervals. No reference intervals have been established for males younger than 14 years or for cisgender females. For a complete set of all established reference intervals, refer to [employer]/Tests/Pub/[id number]. Performed By: [facility] [address] [place] [address] Health Program Director: Cameron Javier MD, PhD CLIA Number: [id number] No results found. Cancer Staging Prostate cancer (HCC) Staging form: Prostate, AJCC 8th Edition - Pathologic stage from 08/23/2023: No Stage Recommended (pT2, cN1, cM1b, PSA: 32, Grade Group: 5) -Signed by Xochitl Serra MD on 12/20/2023 Plan: His PSA is still 0 and his testosterone level is nothing. His iron saturation was normal. HisMCV is 103 and he has CKD stage IV. At this point he will continue on no treatment for the cancer. If he has significant elevation of his PSA or symptoms in the future we may think other options suchas orchiectomy or oral ADT since he has all his cardiac history. I will check his B12 and folate the next time he comes. 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 I have answered his and his son's questions Signed: Electronically signed by Arnol Courtney MD 12/26/24 4:35 PM EDT Christopher Yadav MD documented in this encounter Plan of Treatment Upcoming Encounters Date Type Department Care Team (Late st Contact Info) Description 03/27/2025 3:00 PM EST Office Visit [facility] - [address] [place] [address] Arnol Courtney MD [address] [facility] [address] [place] [address] Scheduled Orders Name Type Priority Associated Diagnoses Orde r Schedule CBC with automated diff Lab Routine Prostate cancer (HCC) Expected: 03/27/2025, Expires: 06/25/2025 Vitamin B12 Lab Routine Prostate cancer (HCC) Expected: 03/27/2025, Expires: 06/25/2025 Folate Lab Routine Prostate cancer (HCC) Expected: 03/27/2025, Expires: 06/25/2025 PSA (Blazer, LUCIA, [place], [place], [facility]) Lab Routine Prostate cancer (HCC) Expected: 03/27/2025, Expires: 01/26/2026 Testosterone Free And Total, Adult Male(SENDOUT) Lab Routine Prostate cancer (HCC) Expected: 03/27/2025, Expires: 06/25/2025 documented as of this encounter Visit Diagnoses Diagnosis Prostate cancer (HCC)- Primary Malignant neoplasm of prostate documented in this encounter Care Teams Workers' Compensation Claims Examiner Relationship Specialty Start Date End Date Christopher Yadav MD [address] [place] [address] PCP - General General Internal Medicine 03/15/23 documented as of this encounter
--- OUTSIDE RECORDS SUMMARY | 2025-01-02 19:00 | XMS_ITS | Clinical Summary ---
Author Organization Unknown Care Team Providers Care Bioinformatics Programmer Name Role Phone FROYLAN SON, ANALISA Unavailable Unavailable SALAZAR RN, ISMAEL Unavailable Unavailable LESLEY RN, TAVARES Unavailable Unavailable ROSA PT, TARYN Unavailable Unavailable SANJUANA LEAN MANUFACTURING ENGINEER, MOSES Unavailable Unavailabl raymond GALEANO OT, MESFIN Unavailable Unavailable KERRY KM/FERREIRA, MARIEA Unavailable Unavail able Payers Payer Name Policy Type Policy Number Effective Date Expira tion Date MEDICARE.[facility] [id number] Problems Condition Name Condition Details Condition Category [...] 10-30 00:00: 00 ATHSCL HEART DISEASE OF [place] CORONARY ARTERY W/O ANG PCTRS Active 10-30 [...] [BMI] 35.0-35.9, ADULT Active 02-28 00:00: 00 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 (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) USE OF ANTICOAGULAN TS Active 10-30 00:00: 00 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 (CURRENT) USE OF ANTITHROMBOT ICS/ANTIPLAT ELETS Active 10-30 00:00: 00 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 (CURRENT) USE OF INSULIN Active 10-30 00:00: [...] 2023-02 00:00: 00 01-01 00:00 :00 No [id number] Unavailable Per instruc tions TWICE DAILY Per instructio ns TWICE DAILY (route: oral) Med Classific ation: Anti-Infe ctive Agents allopurinol 100 mg tablet 2023-02 00:00: 00 09-23 23:59 :00 No [id number] GOUT Per instruc tions TWICE DAILY Per instructio ns TWICE DAILY (route: oral) Med Classific ation: Gout and Hyperuric emia Therapy clopidogrel 75 mg tablet 2023-0218 00:00: 00 09-23 23:59 :00 No [id number] ANTIPLATELE T Per instruc tions ONCE DAILY Per instructio ns ONCE DAILY (route: oral) Med Classific ation: Hematolog ical Agents prednisone 5 mg tablet 2023-02 0-15 00:00: 00 09-23 23:59 :00 No [id number] STEROID Per instruc tions ONCE DAILY Per instructio ns ONCE DAILY (route: oral) Med Classific ation: Endocrine amlodipine 5 mg tablet 2023-02 00:00: 00 09-23 23:59 :00 No [id number] HTN Per instruc tions TWICE DAILY Per instructio ns TWICE DAILY (route: oral) Med Classific ation: Cardiovas cular Therapy Agents famotidine 20 mg tablet 2023-02 00:00: 00 09-23 23:59 :00 No [id number] GERD Per instruc tions ONCE DAILY Per instructio ns ONCE DAILY (route: oral) Med Classific ation: Gastroint estinal Therapy Agents Novolin 70/30 U-100 Insulin 100 unit/mL subcutaneou s suspension 2023-02 00:00: 00 09-23 23:59 :00 No [id number] DM Per instruc tions SUBCUTANEO USLY TWICE DAILY Per instructio ns SUBCUTANEO USLY TWICE DAILY (route: subcutaneo us) Med Classific ation: Endocrine abiraterone 250 mg tablet 2023-02 0 00:00: 00 09-23 23:59 :00 No [id number] CANCER 4 tablet DAILY 4 tablet DAILY (route: oral) Med Classific ation: Antineopl astics gabapentin 300 mg capsule 2023-02 0-05 00:00: 00 09-23 23:59 :00 No [id number] NERVE PAIN Per instruc tions THREE TIMES DAILY Per instructio ns THREE TIMES DAILY (route: oral) Med Classific ation: Central Nervous System Agents Aspirin Childrens 81 mg chewable tablet 2023-02 0 00:00: 00 09-23 23:59 :00 No [id number] ANTICOAGULA NT 1 tablet DAILY 1 tablet DAILY (route: oral) Med Classific ation: Hematolog ical Agents B12 Active 1,000 mcg chewable tablet 2023-02 0- 00:00: 00 09-23 23:59 :00 No [id number] SUPPLEMENT 1 tablet DAILY 1 tablet DAILY (route: oral) Med Classific ation: Electroly te Balance-N utritiona l Products calcitriol 0.25 mcg capsule 2023-02 00:00: 00 09-23 23:59 :00 No [id number] SUPPLEMENT 1 capsule 3 TIMES A WEEK 1 capsule 3 TIMES A WEEK (route: oral) Med Classific ation: Electroly te Balance-N utritiona l Products coenzyme Q10 (ubiquinol) 100 mg capsule 2023-02 00:00: 00 09-23 23:59 :00 No [id number] SUPPLEMENT 1 capsule DAILY 1 capsule DAILY (route: oral) Med Classific ation: Alternati ve Therapy furosemide 20 mg tablet 2023-02 00:00: 00 09-23 23:59 :00 No [id number] FLUID 2 tablet DAILY 2 tablet DAILY (route: oral) Med Classific ation: Cardiovas cular Therapy Agents Gas Relief (simethicon e) 125 mg capsule 2023-02 00:00: 09-23 23:59 :00 No [id number] GAS 1 capsule DAILY 1 capsule DAILY (route: oral) Med Classific ation: Gastroint estinal Therapy Agents hydralazine 10 mg tablet 2023-02 00:00: 00 09-23 23:59 :00 No [id number] HTN 1 tablet 2 TIMES DAILY 1 tablet 2 TIMES DAILY (route: oral) Med Classific ation: Cardiovas cular Therapy Agents levofloxaci n 750 mg tablet 2023-02 00:00: 00 01-02 23:59 :00 No [id number] ANTIBIOTICS 1 tablet EVERY 48 HOURS 1 tablet EVERY 48 HOURS (route: oral) Med Classific ation: Anti-Infe ctive Agents simvastatin 40 mg tablet 2023-02 00:00: 00 09-23 23:59 :00 No [id number] CHOLESTEROL 1 tablet DAILY 1 tablet DAILY (route: oral) Med Classific ation: Cardiovas cular Therapy Agents tamsulosin 0.4 mg capsule 2023-02 00:00: 00 09-23 23:59 :00 No [id number] BPH 1 capsule DAILY 1 capsule DAILY (route: oral) Med Classific ation: Genitouri nary Therapy pantoprazol e 40 mg tablet,alcon yed release 24 00:00: 00 11-07 00:00 :00 No [id number] REFLUX 1 tablet ONCE DAILY AT LEAST 30 MINUTES 1 tablet ONCE DAILY AT LEAST 30 MINUTES (route: oral) Med Classific ation: Gastroint estinal Therapy Agents famotidine 20 mg tablet 16 00:00: 00 11-07 00:00 :00 No [id number] REFLUX 1 tablet DAILY 1 tablet DAILY (route: oral) Med Classific ation: Gastroint estinal Therapy Agents furosemide 20 mg tablet 09-05 00:00: 00 Yes [id number] FLUID 2 tablet NEEDED 2 tablet NEEDED (route: oral) Med Classific ation: Cardiovas cular Therapy Agents allopurinol 100 mg tablet 10-03 00:00: 00 Yes [id number] GOUT 1 tablet 2 TIMES DAILY 1 tablet 2 TIMES DAILY (route: oral) Med Classific ation: Gout and Hyperuric emia Therapy amlodipine 5 mg tablet 10-03 00:00: 00 11-07 00:00 :00 No [id number] HEART 1 tablet 2 TIMES DAILY 1 tablet 2 TIMES DAILY (route: oral) Med Classific ation: Cardiovas cular Therapy Agents aspirin 81 mg chewable tablet 10-03 00:00: 00 11-07 00:00 :00 No [id number] HEART 1 tablet DAILY 1 tablet DAILY (route: oral) Med Classific ation: Hematolog ical Agents calcitriol 0.25 mcg capsule 10-03 00:00: 00 Yes [id number] SUPPLEMENT 1 capsule DIRECTED 1 capsule DIRECTED (route: oral) Med Classific ation: Electroly te Balance-N utritiona l Products clopidogrel 75 mg tablet 10-03 00:00: 00 Yes [id number] HEART 1 tablet DAILY 1 tablet DAILY (route: oral) Med Classific ation: Hematolog ical Agents gabapentin 300 mg capsule 10-03 00:00: 00 Yes [id number] NERVE PAIN 1 capsule 3 TIMES DAILY 1 capsule 3 TIMES DAILY (route: oral) Med Classific ation: Central Nervous System Agents hydralazine 100 mg tablet 10-03 00:00: 00 11-07 00:00 :00 No [id number] BLOOD PRESSURE 2 tablet 2 TIMES DAILY 2 tablet 2 TIMES DAILY (route: oral) Med Classific ation: Cardiovas cular Therapy Agents Novolin N FlexPen 100 unit/mL (3 mL) subcutaneou s insulin pen 10-03 00:00: 00 Yes [id number] DIABETES Per instruc tions 2 TIMES DAILY Per instructio ns 2 TIMES DAILY (route: subcutaneo us) Med Classific ation: Endocrine oxygen gas for inhalation 10-03 00:00: 00 Yes [id number] OXYGEN 2 Liter O2 - NIGHTLY 2 Liter O2 - NIGHTLY (route: inhalation ) Med Classific ation: Medical Supplies and Durable Medical Equipment (DME) simvastatin 40 mg tablet 10-03 00:00: 00 Yes [id number] CHOLESTEROL 1 tablet BEDTIME 1 tablet BEDTIME (route: oral) Med Classific ation: Cardiovas cular Therapy Agents tamsulosin 0.4 mg capsule 10-03 00:00: 00 Yes [id number] PROSTATE 1 capsule DAILY 1 capsule DAILY (route: oral) Med Classific ation: Genitouri nary Therapy carvedilol 3.125 mg tablet 11-07 00:00: 00 Yes [id number] HEART 1 tablet DAILY 1 tablet DAILY (route: oral) Med Classific ation: Cardiovas cular Therapy Agents Eliquis 2.5 mg tablet 11-07 00:00: 00 Yes [id number] HEART 1 tablet DAILY 1 tablet DAILY (route: oral) Med Classific ation: Hematolog ical Agents mecobalamin (vitamin B12) 1,000 mcg disintegrat ing tablet,subl ingual 11-07 00:00: 00 Yes [id number] SUPPLEMENT 1 tablet DAILY 1 tablet DAILY (route: sublingual ) Med Classific ation: Electroly te Balance-N utritiona l Products escitalopra m 5 mg tablet 2024-02 00:00: 00 Yes [id number] ANXIETY 1 tablet BEDTIME 1 tablet BEDTIME [...] CASTILLO HUGO RN TO OBSERVE AND ASSESS, DIESEL SERVICE TECHNICIAN/HELP DESK SUPERVISOR TO OBSERVE FOR RISK FOR FALLS AND INSTRUCT IN FALL PREVENTION, HOME SAFETY, MEDICATION MANAGEMENT, INFECTION PREVENTION, AND NUTRITION MANAGEMENT. RN/DIESEL SERVICE TECHNICIAN/HELP DESK SUPERVISOR NURSE MAY PERFORM O2 SATURATION LEVEL ON ADMISSION AND PRN FOR SOA FOR RN TO ASSESS/DIESEL SERVICE TECHNICIAN TO OBSERVE PATIENT, WITH NOTIFICATION TO THE PHYSICIAN IF SATURATION IS 90% IN THE ABSENCE OF MORE SPECIFIC PARAMETERS FROM THE PHYSICIAN. AGENCY MAY PERFORM A RESUMPTION OF CARE VISIT FOLLOWING ANY HOSPITAL ADMISSION. RN/DIESEL SERVICE TECHNICIAN/HELP DESK SUPERVISOR TO MONITOR CO-MORBID CONDITIONS LISTED ON THE PLAN OF CARE AND ANY NEW CONDITIONS THAT PRESENT THEMSELVES DURING THIS EPISODE TO IDENTIFY CHANGES AND INTERVENE TO MINIMIZE COMPLICATIONS. [code = RN TO OBSERVE, ASSESS, EVALUATE, AND DEVELOP AN INDIVIDUALIZED PLAN OF CARE. AGENCY MAY ACCEPT ORDERS FROM CONSULTING PHYSICIANS DR CASTILLO HUGO RN TO OBSERVE AND ASSESS, DIESEL SERVICE TECHNICIAN/HELP DESK SUPERVISOR TO OBSERVE FOR RISK FOR FALLS AND INSTRUCT IN FALL PREVENTION, HOME SAFETY, MEDICATION MANAGEMENT, INFECTION PREVENTION, AND NUTRITION MANAGEMENT. RN/DIESEL SERVICE TECHNICIAN/HELP DESK SUPERVISOR NURSE MAY PERFORM O2 SATURATION LEVEL ON ADMISSION AND PRN FOR SOA FOR RN TO ASSESS/DIESEL SERVICE TECHNICIAN TO OBSERVE PATIENT, WITH NOTIFICATION TO THE PHYSICIAN IF SATURATION IS 90% IN THE ABSENCE OF MORE SPECIFIC PARAMETERS FROM THE PHYSICIAN. AGENCY MAY PERFORM A RESUMPTION OF CARE VISIT FOLLOWING ANY HOSPITAL ADMISSION. RN/DIESEL SERVICE TECHNICIAN/HELP DESK SUPERVISOR TO MONITOR CO-MORBID CONDITIONS LISTED ON THE PLAN OF CARE AND ANY NEW CONDITIONS THAT PRESENT THEMSELVES DURING THIS EPISODE TO IDENTIFY CHANGES AND INTERVENE TO MINIMIZE COMPLICATIONS.] Future Scheduled Test RISK FOR H OSPITALIZATION; RN TO ASSESS/TEACH, HELP DESK SUPERVISOR/DIESEL SERVICE TECHNICIAN TO OBSERVE/TEACH PATIENT/CAREGIVER ON RISK FOR HOSPITALIZATION/EMERGENCY ROOM VISITS, TEACH SIGNS AND SYMPTOMS THAT PUT PATIENT AT RISK, WHEN TO NOTIFY NURSE/PHYSICIAN OF COMPLICATIONS/DECLINE, AND WHEN TO CALL 911. [code = RISK FOR HOSPITALIZATION; RN TO ASSESS/TEACH, HELP DESK SUPERVISOR/DIESEL SERVICE TECHNICIAN TO OBSERVE/TEACH PATIENT/CAREGIVER ON RISK FOR HOSPITALIZATION/EMERGENCY ROOM VISITS, TEACH SIGNS AND SYMPTOMS THAT PUT PATIENT AT RISK, WHEN TO NOTIFY NURSE/PHYSICIAN OF COMPLICATIONS/DECLINE, AND WHEN TO CALL 911.] Future Scheduled Test CARDIOVASC ULAR SYSTEM; RN TO ASSESS/TEACH, DIESEL SERVICE TECHNICIAN/HELP DESK SUPERVISOR TO OBSERVE/TEACH RELATED TO ALTERED CARDIOVASCULAR STATUS TO MINIMIZE COMPLICATIONS AND REDUCE HOSPITALIZATION. [code = CARDIOVASCULAR SYSTEM; RN TO ASSESS/TEACH, DIESEL SERVICE TECHNICIAN/HELP DESK SUPERVISOR TO OBSERVE/TEACH RELATED TO ALTERED CARDIOVASCULAR STATUS TO MINIMIZE COMPLICATIONS AND REDUCE HOSPITALIZATION.] Future Scheduled Test HEART FAIL URE; RN TO ASSESS/TEACH, DIESEL SERVICE TECHNICIAN/HELP DESK SUPERVISOR TO OBSERVE/TEACH CARDIOPULMONARY SYSTEM TO IDENTIFY SIGNS [...] [code = HEART FAILURE; RN TO ASSESS/TEACH, DIESEL SERVICE TECHNICIAN/HELP DESK SUPERVISOR TO OBSERVE/TEACH CARDIOPULMONARY SYSTEM TO IDENTIFY SIGNS [...] ON MANAGEMENT; RN TO ASSESS AND TEACH, DIESEL SERVICE TECHNICIAN/HELP DESK SUPERVISOR TO OBSERVE AND TEACH WARNING SIGNS AND SYMPTOMS TO AVOID HOSPITALIZATION. [code = HYPERTENSION MANAGEMENT; RN TO ASSESS AND TEACH, DIESEL SERVICE TECHNICIAN/HELP DESK SUPERVISOR TO OBSERVE AND TEACH WARNING SIGNS AND SYMPTOMS TO AVOID HOSPITALIZATION.] Future Scheduled Test ARRHYTHMIA MANAGEMENT; RN TO ASSESS AND TEACH, DIESEL SERVICE TECHNICIAN/HELP DESK SUPERVISOR TO OBSERVE AND TEACH WARNING SIGNS AND SYMPTOMS TO AVOID HOSPITALIZATION. [code = ARRHYTHMIA MANAGEMENT; RN TO ASSESS AND TEACH, DIESEL SERVICE TECHNICIAN/HELP DESK SUPERVISOR TO OBSERVE AND TEACH WARNING SIGNS AND SYMPTOMS TO AVOID HOSPITALIZATION.] Future Scheduled Test RESPIRATOR Y SYSTEM MANAGEMENT; RN TO ASSESS AND TEACH, DIESEL SERVICE TECHNICIAN/HELP DESK SUPERVISOR TO OBSERVE AND TEACH RELATED TO ALTERED RESPIRATORY STATUS TO MINIMIZE COMPLICATIONS AND REDUCE HOSPITALIZATION. [code = RESPIRATORY SYSTEM MANAGEMENT; RN TO ASSESS AND TEACH, DIESEL SERVICE TECHNICIAN/HELP DESK SUPERVISOR TO OBSERVE AND TEACH RELATED TO ALTERED RESPIRATORY STATUS TO MINIMIZE COMPLICATIONS AND REDUCE HOSPITALIZATION.] Future Scheduled Test OXYGEN THE RAPY; RN/DIESEL SERVICE TECHNICIAN/HELP DESK SUPERVISOR TO INSTRUCT ON OXYGEN MANAGEMENT INCLUDING: ADMINISTRATION AT 2 L/MIN VIA NC PRN, CARE OF EQUIPMENT AND SAFETY. [code = OXYGEN THERAPY; RN/DIESEL SERVICE TECHNICIAN/HELP DESK SUPERVISOR TO INSTRUCT ON OXYGEN MANAGEMENT INCLUDING: ADMINISTRATION AT 2 L/MIN VIA NC PRN, CARE OF EQUIPMENT AND SAFETY.] Future Scheduled Test PAIN MANAG EMENT; RN TO ASSESS AND TEACH, HELP DESK SUPERVISOR/DIESEL SERVICE TECHNICIAN TO OBSERVE AND TEACH AND PROVIDE EDUCATION ON PAIN MANAGEMENT TECHNIQUES. [code = PAIN MANAGEMENT; RN TO ASSESS AND TEACH, HELP DESK SUPERVISOR/DIESEL SERVICE TECHNICIAN TO OBSERVE AND TEACH AND PROVIDE EDUCATION ON PAIN MANAGEMENT TECHNIQUES.] Future Scheduled Test DIABETES M ANAGEMENT; RN TO ASSESS AND TEACH, HELP DESK SUPERVISOR/DIESEL SERVICE TECHNICIAN TO OBSERVE AND TEACH INSTRUCTIONS OF DIABETIC CARE TO INCLUDE: DIET LOW CARB, SKIN CARE, SIGNS AND SYMPTOMS OF HYPO/HYPERGLYCEMIA, PROPER ADMINISTRATION OF DIABETIC MEDICATION. RN/HELP DESK SUPERVISOR/DIESEL SERVICE TECHNICIAN TO INSTRUCT ON DIABETIC FOOT CARE AND MONITOR FOR SKIN LESIONS ON LOWER EXTREMITIES. BLOOD GLUCOSE TESTING DAILY FREQ. RN TO ASSESS AND TEACH, HELP DESK SUPERVISOR/DIESEL SERVICE TECHNICIAN TO OBSERVE AND TEACH PATIENT/CAREGIVER ABILITY TO PERFORM AND RECORD BLOOD GLUCOSE TESTING ORDERED AND TO REPORT ABNORMAL FINDINGS TO PHYSICIAN. RN/HELP DESK SUPERVISOR/DIESEL SERVICE TECHNICIAN MAY PERFORM BLOOD GLUCOSE TEST NEEDED. RN/HELP DESK SUPERVISOR/DIESEL SERVICE TECHNICIAN TO REPORT TO PHYSICIAN BLOOD GLUCOSE READINGS GREATER THAN 400 OR LESS THAN 60. RN/HELP DESK SUPERVISOR/DIESEL SERVICE TECHNICIAN TO INSTRUCT PATIENT ON IMPORTANCE OF HGBA1C MONITORING, KIDNEY FUNCTION TEST, EYE AND FOOT EXAMS. [code = DIABETES MANAGEMENT; RN TO ASSESS AND TEACH, HELP DESK SUPERVISOR/DIESEL SERVICE TECHNICIAN TO OBSERVE AND TEACH INSTRUCTIONS OF DIABETIC CARE TO INCLUDE: DIET LOW CARB, SKIN CARE, SIGNS AND SYMPTOMS OF HYPO/HYPERGLYCEMIA, PROPER ADMINISTRATION OF DIABETIC MEDICATION. RN/HELP DESK SUPERVISOR/DIESEL SERVICE TECHNICIAN TO INSTRUCT ON DIABETIC FOOT CARE AND MONITOR FOR SKIN LESIONS ON LOWER EXTREMITIES. BLOOD GLUCOSE TESTING DAILY FREQ. RN TO ASSESS AND TEACH, HELP DESK SUPERVISOR/DIESEL SERVICE TECHNICIAN TO OBSERVE AND TEACH PATIENT/CAREGIVER ABILITY TO PERFORM AND RECORD BLOOD GLUCOSE TESTING ORDERED AND TO REPORT ABNORMAL FINDINGS TO PHYSICIAN. RN/HELP DESK SUPERVISOR/DIESEL SERVICE TECHNICIAN MAY PERFORM BLOOD GLUCOSE TEST NEEDED. RN/HELP DESK SUPERVISOR/DIESEL SERVICE TECHNICIAN TO REPORT TO PHYSICIAN BLOOD GLUCOSE READINGS GREATER THAN 400 OR LESS THAN 60. RN/HELP DESK SUPERVISOR/DIESEL SERVICE TECHNICIAN TO INSTRUCT PATIENT ON IMPORTANCE OF HGBA1C MONITORING, KIDNEY FUNCTION TEST, EYE AND FOOT EXAMS.] Future Scheduled Test FALL REDUC TION MANAGEMENT; RN TO ASSESS AND OBSERVE, DIESEL SERVICE TECHNICIAN/HELP DESK SUPERVISOR TO OBSERVE FALL RISK FACTORS AND EDUCATE PATIENT/CAREGIVER ON STRATEGIES TO MINIMIZE THE RISK OF FALLING. [code = FALL REDUCTION MANAGEMENT; RN TO ASSESS AND OBSERVE, DIESEL SERVICE TECHNICIAN/HELP DESK SUPERVISOR TO OBSERVE FALL RISK FACTORS AND EDUCATE [...] Scheduled Test PRN VISITS ; NUMBER OF RN/DIESEL SERVICE TECHNICIAN/HELP DESK SUPERVISOR VISITS: 2 RN/DIESEL SERVICE TECHNICIAN/HELP DESK SUPERVISOR TO PERFORM: ASSESSMENT FOR THE FOLLOWING REASONS: HF, FALLS, HTN ETC [code = PRN VISITS; NUMBER OF RN/DIESEL SERVICE TECHNICIAN/HELP DESK SUPERVISOR VISITS: 2 RN/DIESEL SERVICE TECHNICIAN/HELP DESK SUPERVISOR TO PERFORM: ASSESSMENT FOR THE FOLLOWING REASONS: HF, FALLS, HTN ETC] Future Scheduled Test AGENCY MAY PERFORM A RESUMPTION OF CARE VISIT FOLLOWING ANY HOSPITAL ADMISSION. PT TO EVALUATE, OBSERVE / ASSESS, AND MONITOR, LEAN MANUFACTURING ENGINEER TO OBSERVE AND MONITOR, PROVIDE SKILLED THERAPEUTIC INTERVENTION, ACTIVITY, EDUCATION, AND TRAINING TO ADDRESS; PT/LEAN MANUFACTURING ENGINEER TO PROVIDE GAIT TRAINING FOR IMPROVED MOBILITY AND /OR TO NORMALIZE GAIT PATTERN NEUROMUSCULAR RE-EDUCATION / BALANCE / POSTURAL CONTROL (PT) THERAPEUTIC EXERCISES AND ESTABLISHING A HOME EXERCISE PROGRAM (PT/LEAN MANUFACTURING ENGINEER) PT/LEAN MANUFACTURING ENGINEER TO PROVIDE STAIR TRAINING SIT TO/FROM STAND TRANSFERS (PT/LEAN MANUFACTURING ENGINEER) PT TO ASSESS / LEAN MANUFACTURING ENGINEER TO MONITOR FOR AND REPORT EARLY SIGNS OF ANTICOAGULANT TOXICITY TO THE PHYSICIAN AND/OR THE RN CLINICAL BIAS MACHINE OPERATOR HELPER FOR PHYSICIAN NOTIFICATION AND TO PROVIDE PATIENT/CAREGIVER EDUCATION ON ANTICOAGULANT THERAPY PT / LEAN MANUFACTURING ENGINEER TO MONITOR AND EDUCATE ON OXYGEN SATURATION DURING ADLS/IADLS, NOTIFY PHYSICIAN AND/OR THE RN CLINICAL BIAS MACHINE OPERATOR HELPER FOR PHYSICIAN NOTIFICATION AND IF O2 SATS BELOW PHYSICIAN ORDERED PARAMETERS AFTER 10 MIN OF REST PT TO ASSESS / LEAN MANUFACTURING ENGINEER TO MONITOR CARDIO/RESPIRATORY SYSTEM; AND NOTIFY THE PHYSICIAN AND/OR THE RN CLINICAL BIAS MACHINE OPERATOR HELPER FOR PHYSICIAN NOTIFICATION FOR EARLY SIGNS AND SYMPTOMS OF EXACERBATION OR DETERIORATION. [code = AGENCY MAY PERFORM A RESUMPTION OF CARE VISIT FOLLOWING ANY HOSPITAL ADMISSION. PT TO EVALUATE, OBSERVE / ASSESS, AND MONITOR, LEAN MANUFACTURING ENGINEER TO OBSERVE AND MONITOR, PROVIDE SKILLED THERAPEUTIC INTERVENTION, ACTIVITY, EDUCATION, AND TRAINING TO ADDRESS; PT/LEAN MANUFACTURING ENGINEER TO PROVIDE GAIT TRAINING FOR IMPROVED MOBILITY AND /OR TO NORMALIZE GAIT PATTERN NEUROMUSCULAR RE-EDUCATION / BALANCE / POSTURAL CONTROL (PT) THERAPEUTIC EXERCISES AND ESTABLISHING A HOME EXERCISE PROGRAM (PT/LEAN MANUFACTURING ENGINEER) PT/LEAN MANUFACTURING ENGINEER TO PROVIDE STAIR TRAINING SIT TO/FROM STAND TRANSFERS (PT/LEAN MANUFACTURING ENGINEER) PT TO ASSESS / LEAN MANUFACTURING ENGINEER TO MONITOR FOR AND REPORT EARLY SIGNS OF ANTICOAGULANT TOXICITY TO THE PHYSICIAN AND/OR THE RN CLINICAL BIAS MACHINE OPERATOR HELPER FOR PHYSICIAN NOTIFICATION AND TO PROVIDE PATIENT/CAREGIVER EDUCATION ON ANTICOAGULANT THERAPY PT / LEAN MANUFACTURING ENGINEER TO MONITOR AND EDUCATE ON OXYGEN SATURATION DURING ADLS/IADLS, NOTIFY PHYSICIAN AND/OR THE RN CLINICAL BIAS MACHINE OPERATOR HELPER FOR PHYSICIAN NOTIFICATION AND IF O2 SATS BELOW PHYSICIAN ORDERED PARAMETERS AFTER 10 MIN OF REST PT TO ASSESS / LEAN MANUFACTURING ENGINEER TO MONITOR CARDIO/RESPIRATORY SYSTEM; AND NOTIFY THE PHYSICIAN AND/OR THE RN CLINICAL BIAS MACHINE OPERATOR HELPER FOR PHYSICIAN NOTIFICATION FOR EARLY SIGNS AND [...] SAFETY AND FUNCTIONAL INDEPENDENCE IN HOME BATHING/SHOWERING (OT/FELT CHECKER) DRESSING (OT/FELT CHECKER) ACTIVITIES OF DAILY LIVING (OT/FELT CHECKER) TOILET TRANSFER (OT/KM) BATH/SHOWER TRANSFER (OT/FELT CHECKER) POSTURAL CONTROL/BALANCE (OT/KM) THERAPEUTIC EXERCISE (OT/KM) OT/KM TO MONITOR FOR AND REPORT EARLY SIGNS OF ANTICOAGULANT TOXICITY TO THE PHYSICIAN AND/OR THE RN CLINICAL BIAS MACHINE OPERATOR HELPER FOR PHYSICIAN NOTIFICATION AND TO PROVIDE PATIENT/CAREGIVER EDUCATION ON ANTICOAGULANT THERAPY OT TO ASSESS / FELT CHECKER TO MONITOR CARDIO/RESPIRATORY SYSTEM; AND NOTIFY THE PHYSICIAN AND/OR THE RN CLINICAL BIAS MACHINE OPERATOR HELPER FOR PHYSICIAN NOTIFICATION FOR EARLY SIGNS AND SYMPTOMS OF EXACERBATION OR DETERORATION [code = AGENCY MAY PERFORM A RESUMPTION OF CARE VISIT FOLLOWING ANY HOSPITAL ADMISSION. OT TO EVALUATE, OBSERVE / ASSESS, AND MONITOR, FELT CHECKER TO OBSERVE AND MONITOR, PROVIDE SKILLED THERAPEUTIC INTERVENTION, ACTIVITY, EDUCATION, AND TRAINING TO ADDRESS ADLS/IADLS, ADAPTIVE EQUIPMENT, STRENGTHENING, BALANCE, AND FUNCTIONAL TRANSFERS TO MAXIMIZE SAFETY AND FUNCTIONAL INDEPENDENCE IN HOME BATHING/SHOWERING (OT/KM) DRESSING (OT/KM) ACTIVITIES OF DAILY LIVING (OT/KM) TOILET TRANSFER (OT/KM) BATH/SHOWER TRANSFER (OT/KM) POSTURAL CONTROL/BALANCE (OT/KM) THERAPEUTIC EXERCISE (OT/FELT CHECKER) OT/FELT CHECKER TO MONITOR FOR AND REPORT EARLY SIGNS OF ANTICOAGULANT TOXICITY TO THE PHYSICIAN AND/OR THE RN CLINICAL BIAS MACHINE OPERATOR HELPER FOR PHYSICIAN NOTIFICATION AND TO PROVIDE PATIENT/CAREGIVER EDUCATION ON ANTICOAGULANT THERAPY OT TO ASSESS / KM TO MONITOR CARDIO/RESPIRATORY SYSTEM; AND NOTIFY THE PHYSICIAN AND/OR THE RN CLINICAL BIAS MACHINE OPERATOR HELPER FOR PHYSICIAN NOTIFICATION FOR EARLY SIGNS AND [...] End Date/Time Encounter Type Admission Type Attending [facility] Care Department Encounter ID Discharge Date Discharge Status Discharge Condition Discharge Reason Percent Goals Met 2024-11-07 00:00:00 2025-01-03 00:00:00 Outpatient TARYN [facility] [id number] 2025-01-03 00:00:00 DISCHARGE TO HOME OR SELF CARE INDEPENDEN T IN THE HOME HH - GOALS MET 73.53
--- OUTSIDE RECORDS SUMMARY | 2025-01-11 22:31 | XMS_ITS | Encounter Summary ---
Author Organization Healthcare Address [address] [place] [address] Care Team Providers Care [place] Gold Attendant Name Role Phone Christopher Yadav MD Primary Care Provider [phone] Reason for Visit * Reason Comments Suicidal * Auth/Cert (Routine) Specialty Diagnoses / Procedures Referred By Contac t Referred To Contact Diagnoses Suicidal ideation Depressive disorder Unspecified mood (affective) disorder (CMS/[facility]) Davina Kang MD [address] [place] [address] Phone: tel: fax: [facility] [address] [place] [address] Phone: tel: Referral ID Status Reason Start Date Expiration Date Visits Re quested Visits Authorized [id number] 1 1 Encounter Details Date Type Department Care Team (Latest Contact Info) Description 01/11/2025 10:31 PM EST - 01/16/2025 1:40 PM [facility] Hospital Encounter [facility] [address] [place] [address] Davina Kang MD [address] [place] [address] Davina Nicholas DO [address] [place] [address] Depressive disorder (Primary Dx); Suicidal [...] How often do you attend chur or latter-day services? Never 01/12/2025 Do you belong to any clubs o r organizations such as catholic groups, unions, fraternal or athletic groups, or [...] more drinks on one occasion? Never 01/12/2025 [facility] Occupational Stress Questionnaire [...] were you homeless or living in a custodial (including now)? No 01/12/2025 [facility] Utilities Answer Date Recorded In the [...] Month) Yes 025 4:38 PM EST Jessie Torres RN 2. Non-Specific Active Suici nancy Thoughts [...] Assessment Author 6. Suicidal Behavior (Lifetime) No 5 9:53 PM Mikey Kramer RN documented as of this encounter Mental Status * Question Answer Entry Date Author Scale Used Chuy 01/16/2025 12:00 PM Ness Olmedo RN documented [...] times a day before meals. 04/20/2016 pancrelipase, Nbq-Wfrb-Oobb, (Creon) [id number] units capsule delayed-release particles capsuleIndications: Pancreatic Insufficiency [...] discharged from unit at 1340 accompanied by [facility] staff - ambulatory to [facility] to meet son. Patient denies current [...] Pt understands that they can return to [facility] ED at any time for further psychiatric evaluation or call the suicide hotline which was provided in paperwork. * Care Plan - Ness Barber RN - 01/16/2025 3:17 PM EST Problem: Adult Behavioral Health Plan of Care Goal: Plan of Care Review Outcome: Met Flowsheets (Taken 01/16/2025 151) Progress: improving Patient Agreement with Plan of Care: agrees Plan of Care Reviewed With: patient Goal: Patient-Specific Goal (Individualization) Outcome: Met Flowsheets Taken 01/16/2025 151 Patient Personal Strengths: expressive of emotions expressive [...] Self and Others Outcome: Met Flowsheets (Taken 01/16/2025 151) Adheres to Safety Considerations for Self and Others: achieves outcome Intervention: Develop and Maintain Individualized Safety Plan Flowsheets (Taken 01/16/2025 151) Safety Measures: environmental rounds completed monitored by video safety rounds completed Goal: Optimized Coping Skills in Response to Life Stressors Outcome: Met Flowsheets (Taken 01/16/2025 151) Optimized Coping Skills in Response to Life Stressors: achieves outcome Intervention: Promote Effective Coping Strategies Flowsheets (Taken 01/16/2025 151) Supportive Measures: active listening utilized relaxation techniques promoted verbalization of feelings encouraged Goal: Develops/Participates in Therapeutic Tilly to Support Successful Transition Outcome: Met Flowsheets (Taken 01/16/2025 151) Develops/Participates in Therapeutic Tilly to Support Successful Transition: achieves outcome Intervention: Foster Therapeutic Tilly Flowsheets (Taken 01/16/2025 151) Trust Relationship/Rapport: care explained questions answered questions encouraged thoughts/feelings acknowledged Intervention: Mutually Develop Transition Plan Flowsheets (Taken 01/16/2025 151) Outpatient/Agency/Support Group Needs: outpatient psychiatric care (specify) [...] reinforced Enhanced Safety Measures: monitored by video aviation safety officer at bedside education provided Self-Harm Prevention: environmental self-harm risks assessed environment modified for self-harm risk Intervention: Promote Psychosocial Wellbeing Flowsheets (Taken 01/16/2025 1513) Supportive Measures: active listening utilized relaxation techniques promoted verbalization of feelings encouraged Family/Support System Care: self-care encouraged Sleep/Rest Enhancement: regular sleep/rest pattern promoted Intervention: Establish Safety Plan and Continuity of Care Flowsheets (Taken 01/16/2025 1513) Safe Transition Promotion: protective factors promoted suicide hotline information given to patient suicide hotline number to support person Problem: Fall Injury Risk Goal: Absence of Fall and Fall-Related Injury Outcome: Met Intervention: Identify and Manage Contributors Flowsheets (Taken 01/16/2025 151) Medication Review/Management: medications reviewed Self-Care Promotion: BADL personal objects within reach adaptive equipment use encouraged Intervention: Promote Injury-Free Environment Flowsheets (Taken 01/16/2025 1513) Safety Promotion/Fall Prevention: assistive device/personal items within reach activity supervised nonskid shoes/slippers when out of bed mobility aid in reach safety round/check completed * Group Note - Lenora Vick - 01/16/2025 12:09 PM EST Group Topic: Leisure Skills Group Date: 01/16/2025 Start Time: 1100 End Time: 1200 Facilitators: Lenora Vick Department: [facility] Inpatient Psychiatry Number of Participants: 5 Group Focus: coping skills and leisure skills Treatment Modality: Leisure Development Interventions utilized were leisure development Purpose: enhance coping skills Name: Braeden Palmer Date of : 1940 MR: [id number] Refused Patients Problems: Patient Active Problem List Diagnosis Obesity (BMI 35.0-39.9 without comorbidity) Unspecified mood (affective) disorder (CMS/HCC) * Discharge Summary - Gabi Turcios MBBS - 01/16/2025 11:15 AM EST Images from the original note were not included. [facility] Behavioral Health Unit Discharge Summary Admit Date/Time: 01/11/2025 10:31 PM Admitting Attending: Davina Kang Discharge Date: 01/16/25 Length of Stay: 4 Days Discharge Attending Physician: Davina Nicholas DO PCP name and Address: Christopher Yadav MD [address] / [facility] [address] Referring provider name and address: No referring provider defined for this encounter. Chief Concern and Brief History of Present Illness Patient is a 84 y.o. male with a reported history of CHF, CKD, HTN, Type II DM, CAD, Prostate Cancer, Hyperlipidemia, and A-Fib who presented to [facility] with active suicidal ideation and multiple attempts to gain lethal means. [facility] for further management of SI. Per [facility] Documentation: Patient reported having SI that [...] The patient is supposed to see his layer up in regards to his CHF and scheduling to get a pacemaker this upcoming . For further details on history of present illness, please see H&P Hospital Course and Condition on Discharge Prior to [facility] admission, patient was initially evaluated by [facility] physician/CARL who determined further inpatient psychiatric management [...] not bear it anymore, which is why hewas looking to find a gun as described [...] his home. He reports that he has 2sons (age 65 and 48) and 1 daughter (age 64). He states that his daughter ???will not help him withanything?? . He states that he feels overwhelmed by all of his medical care. He reports that he hasto take 15 different pills every morning and [...] reports that he used to go to catholic twice a week with his , but [...] no reported psychiatric history who presented to [facility] via private vehicle driven by other from home on 01/11/25 with concerns of active suicidal ideation with attempts to obtain lethal means. They were subsequently admitted to [facility] 01/12/25 on 72 hour hold for continued [...] stressors. Discharge Diagnosis Unspecified mood (affective) disorder ([facility]) Diagnoses: PSYCHIATRIC MANAGEMENT 1.) Unspecified [...] Active Hospital Problems *Unspecified mood (affective) disorder (CMS/HCC) Medications at Discharge Medication List .. allopurinol [...] Take 1 tablet by mouth daily. pancrelipase (Kwz-Ejay-Fstm) [id number] units capsule delayed-release particles capsule Commonly known [...] Your Medications These medications were sent to [facility] [place] [address] [address] escitalopram 10 MG tablet Follow-Up / Post-Discharge [...] mood-altering substances except those prescribed by a licensed mass real estate appraiser. His primary supports should monitor him for evidence of substance use and should alert his outpatient provider if use is suspected or confirmed. 6.) A safety plan was given at the time of discharge which included instructions to return to the nearest ER if patient becomes suicidal, homicidal, manic, psychotic, or develops any other urgent/emergent symptoms, or to call the 8-622-WBDKBB line. 7.) He voiced an understanding of [...] from the original note were not included. [id number] Escitalopram IMPORTANT WARNING: Medications such as escitalopram [...] doctor or pharmacist will give you the jig builder helper's patient information sheet (Medication Guide) when you begin treatment with escitalopram. Read the information carefully and ask your doctor or pharmacist if you have any questions. You also can obtain the Medication Guide from the FDA website: https://www.fda.gov/Drugs/DrugSafety/tye159032.htm. Talk to your doctor about the risks of taking escitalopram. WHY is this medicine prescribed? Escitalopram is used to treat depression and generalized anxiety disorder (HNEOK; excessive worry andtension that disrupts daily life [...] be awakened, immediately call emergency services at 391. Symptoms of overdose may include: ? fast [...] of all of the prescription and nonprescription (cmqi-peg-lcmqasu) medicines, vitamins, minerals, and dietary supplements you [...] or pharmacist about specific clinical use. The [employer] represents that the information provided hereunder was formulated with a reasonable standard of care, and in conformity with professional standards in the field. [employer] makes no representations or warranties, express or implied, including, but not limited to, any implied warranty of merchantability and/or fitness for a particular purpose, with respect to such information and specifically disclaims all such warranties. Users are advised that decisions regarding drug therapy are complex medical decisions requiring the independent, informed decision of an appropriate health human services care specialist, and the information is provided for informational purposes only. The entire monograph for a drug should be reviewed for a thorough understanding of the drug's actions, uses and side effects. [employer] does not endorse or recommend the use of any drug.The information is not a substitute for medical care. AHFS?? Patient Medication Information?. ?? Copyright, 2023. [employer]??, [address], [address], [place], [place]. All Rights Reserved. Duplication for commercial use must be authorized by [facility]. Selected Revisions: December 12, 2024. AHFS?? Patient Medication Information?. ?? Copyright, 2024 * Discharge Instr - Appointments - Sherry Bunch - 01/16/2025 9:48 AM EST Patient's family will take him to his cardiology appointment tomorrow morning. They are also in theprocess of getting him into [facility]. PCP - Dr. Christopher Yadav on TuesdayJanuary 22 at 10:15am PH# [phone] FAX# [phone] * Nursing Note - Olga Jimenez RN [...] of care. Patient will continue with 1:1 mines safety engineer do to beingin a med bed. Will [...] encouraged self-responsibility promoted Goal: Develops/Participates in Therapeutic Tilly to Support Successful Transition Outcome: Ongoing, Progressing Flowsheets (Taken 01/15/20252015) Develops/Participates in Therapeutic Tilly to Support Successful Transition: making progress toward outcome Intervention: Foster Therapeutic Tilly Flowsheets (Taken 01/15/20252015) Trust Relationship/Rapport: care explained [...] reinforced Enhanced Safety Measures: monitored by video aviation safety officer at bedside Self-Harm Prevention: environmental self-harm risks [...] Topic: Nutrition Group Date: 01/15/2025 Start Time: 0400 End Time: 0 Facilitators: Kely Zarco RD Department: [facility] Inpatient Psychiatry Name: Braeden Palmer Date of : 1940 MR: [id number] Attendance: Excused Level of Participation: Quality of Participation: Plan: Pt with visitors at time of group, will be invited to future nutrition groups. Patients Problems: Patient Active Problem List Diagnosis Obesity (BMI 35.0-39.9 without comorbidity) Unspecified mood (affective) disorder (CMS/HCC) * Progress Notes - Sherry Bunch - 01/15/2025 3:47 PM EST Marketing Research Intern Follow-UP Note Braeden Palmer 1940 [id number] Family Meeting Note: Met with patient, his son Kofi and his granddaughter Morena. They discussed the possibility of getting him into [facility] tomorrow (01-16-25). They said the facility [...] Promote Effective Coping Strategies Flowsheets (Taken 01/15/2025 143) Supportive Measures: active listening utilized decision-making supported goal-setting facilitated self-care encouraged verbalization of feelings encouraged Goal: Develops/Participates in Therapeutic Tilly to Support Successful Transition Outcome: Ongoing, Progressing Flowsheets (Taken 01/15/2025 143) Develops/Participates in Therapeutic Tilly to Support Successful Transition: making progress toward outcome Intervention: Foster Therapeutic Tilly Flowsheets (Taken 01/15/2025 143) Trust Relationship/Rapport: care explained choices provided emotional support provided empathic listening provided questions encouraged Intervention: Mutually Develop Transition Plan Flowsheets (Taken 01/15/2025 143) Concerns to be Addressed: mental health Problem: Suicide Risk Goal: Absence of Self-Harm Outcome: Ongoing, Progressing Intervention: Assess Risk to Self and Maintain Safety Flowsheets (Taken 01/15/2025 143) Behavior Management: boundaries reinforced Enhanced Safety Measures: aviation safety officer at bedside previous patient education reinforced Self-Harm [...] End Time: 1400 Facilitators: Lesly Ashley Department: [facility] Integrative Medicine Virtual Dept. Number of Participants: 2 Treatment Modality: Group Music Therapy Interventions Utilized: edgardo analysis, music listening, music-based discussion, playing instruments/drumming, singing, Goals Addressed: Increase coping skills, mood, Name: Braeden Palmer Date of : 1940 MR: [id number] Patient Attendance: No Comments: Pt rested in room. Plan: pt will be encouraged to attend groups, * Group Note - Anne Oneil - 01/15/2025 12:13 PM EST Group Topic: Healing Arts Group Date: 01/15/2025 Start Time: 1100 End Time: 1200 Facilitators: Anne Oneil Department: [facility] Inpatient Psychiatry Number of Participants: 4 Group Focus: art therapy, leisure skills, and social skills Treatment Modality: Art Therapy Interventions utilized were group exercise and leisure development Purpose: enhance coping skills Name: Braeden Palmer Date of : 1940 MR: [id number] Patient did not attend group. Patients Problems: Patient Active Problem List Diagnosis Obesity (BMI 35.0-39.9 without comorbidity) Unspecified mood (affective) disorder (CMS/HCC) * Group Note - Bonny Kaplan - 01/15/2025 10:57 AM EST Group Topic: Goals Group Date: 01/14/2025 Start Time: 1035 End Time: 1125 Facilitators: Bonny Kaplan Department: [facility] Inpatient Psychiatry Number of Participants: 18 Group Focus: Goals Treatment Modality: Discussion Interventions utilized were: N/A Purpose: Goal setting Name: Braeden Palmer Date of : 1940 MR: [id number] Patient did not participate in group, but was offered a goals handout as an alternative to group. Patients Problems: Patient Active Problem List Diagnosis Obesity (BMI 35.0-39.9 without comorbidity) Unspecified mood (affective) disorder (CMS/HCC) * Group Note - Bonny Kaplan - 01/15/2025 10:48 AM EST Group Topic: Goals Group Date: 01/15/2025 Start Time: 1010 End Time: 1040 Facilitators: Bonny Kalpan Department: [facility] Inpatient Psychiatry Number of Participants: 15 Group Focus: Goals Treatment Modality: Discussion Interventions utilized were: N/A Purpose: Goal setting Name: Braeden Palmer Date of : 1940 MR: [id number] Patient did not participate in group, but was offered a goals handout as an alternative to group. Patients Problems: Patient Active Problem List Diagnosis Obesity (BMI 35.0-39.9 without comorbidity) Unspecified mood (affective) disorder (CMS/HCC) * Progress Notes - Gabi Turcios MBBS - 01/15/2025 9:01 AM EST [facility] Behavioral Health Unit Daily Progress Note [...] QT Interval 414 QTC Interval 434 R [place] 38 T Wave [place] 94 Diagnosis Atrial fibrillation with premature ventricular [...] reasons for living, exercising self direction, cultural/spiritual latter-day involvement, access to housing, and good interpersonal [...] no reported psychiatric history who presented to [facility] via private vehicle driven by other from home on 01/11/25 with concerns of active suicidal ideation with attempts to obtain lethal means. They were subsequently admitted to [facility] 01/12/25 on 72 hour hold for continued [...] changed? 4 (no change) PLAN: Admission to [facility] for further inpatient psychiatric management Continue Lexapro [...] 0-3 Units, Subcutaneous, Twice at night pancrelipase (Fzq-Avua-Zawf), 1 capsule, Oral, TID with meals pantoprazole, [...] relaxation techniques promoted Goal: Develops/Participates in Therapeutic Tilly to Support Successful Transition Outcome: Ongoing, Progressing Flowsheets (Taken 01/14/20252113) Develops/Participates in Therapeutic Tilly to Support Successful Transition: making progress toward outcome Intervention: Foster Therapeutic Tilly Flowsheets (Taken 01/14/20252113) Trust Relationship/Rapport: care explained [...] 01/14/20252113) Enhanced Safety Measures: monitored by video aviation safety officer at bedside Intervention: Promote Psychosocial Wellbeing Flowsheets [...] active listening utilized Goal: Develops/Participates in Therapeutic Tilly to Support Successful Transition Intervention: Foster Therapeutic Tilly Flowsheets (Taken 01/14/20251853) Trust Relationship/Rapport: care explained [...] End Time: 1500 Facilitators: Lenora Vick Department: [facility] Inpatient Psychiatry Number of Participants: 7 Group Focus: coping skills and leisure skills Treatment Modality: Leisure Development Interventions utilized were leisure development Purpose: enhance coping skills Name: Braeden Palmer Date of : 1940 MR: [id number] Refused Patients Problems: Patient Active Problem List Diagnosis Obesity (BMI 35.0-39.9 without comorbidity) Unspecified mood (affective) disorder (CMS/HCC) * Group Note - Lenora Vick - 01/14/2025 1:06 PM EST Group Topic: Leisure Skills Group Date: 01/14/2025 Start Time: 1100 End Time: 1200 Facilitators: Lenora Vick Department: [facility] Inpatient Psychiatry Number of Participants: 9 Group Focus: coping skills and leisure skills Treatment Modality: Leisure Development Interventions utilized were leisure development Purpose: enhance coping skills Name: Braeden Palmer Date of : 1940 MR: [id number] Refused. Patients Problems: Patient Active Problem List Diagnosis Obesity (BMI 35.0-39.9 without comorbidity) Unspecified mood (affective) disorder (CMS/HCC) * Progress Notes - Gabi Turcios MBBS - 01/14/2025 11:57 AM EST [facility] Behavioral Health Unit Daily Progress Note [...] Yes, spoke to sons Jarad Palmer at [phone] and Bruce Palmer at [phone]. They were informed of improvement in veins [...] QT Interval 414 QTC Interval 434 R [place] 38 T Wave [place] 94 Diagnosis Atrial fibrillation with premature ventricular [...] reasons for living, exercising self direction, cultural/spiritual latter-day involvement, access to housing, and good interpersonal [...] no reported psychiatric history who presented to [facility] via private vehicle driven by other from home on 01/11/25 with concerns of active suicidal ideation with attempts to obtain lethal means. They were subsequently admitted to [facility] 01/12/25 on 72 hour hold for continued [...] changed? 4 (no change) PLAN: Admission to [facility] for further inpatient psychiatric management Increase Lexapro [...] 0-3 Units, Subcutaneous, Twice at night pancrelipase (Mrk-Xgax-Zxar), 1 capsule, Oral, TID with meals pantoprazole, [...] 1019 Facilitators: Willie Funk; Antoni Ortiz Department: [facility] Inpatient Psychiatry Number of Participants: 8 Group Focus: feeling awareness/expression and reminiscence Treatment Modality: Patient-Centered Therapy Interventions utilized were group exercise and reminiscence Purpose: increase insight Name: Braeden Palmer Date of : 1940 MR: [id number] Level of Participation: moderate Quality of Participation: [...] utilized goal-setting facilitated Goal: Develops/Participates in Therapeutic Tilly to Support Successful Transition Outcome: Ongoing, Progressing Flowsheets (Taken 01/14/2025512) Develops/Participates in Therapeutic Tilly to Support Successful Transition: making progress toward outcome Intervention: Foster Therapeutic Tilly Flowsheets (Taken 01/14/2025512) Trust Relationship/Rapport: care explained [...] kept to his room all through the anesthesia resident. Continues to have 1:1 aviation safety officer. Pt is AAOx4. He was cooperative with [...] HI and AVH. [facility] Pt was encouraged to [...] active listening utilized Goal: Develops/Participates in Therapeutic Tilly to Support Successful Transition Outcome: Ongoing, Progressing Flowsheets (Taken 01/13/20251845) Develops/Participates in Therapeutic Tilly to Support Successful Transition: making progress toward outcome Intervention: Foster Therapeutic Tilly Flowsheets (Taken 01/13/20251845) Trust Relationship/Rapport: care explained [...] Date: 01/13/2025 Start Time: 1014 End Time: 105 Facilitators: Bonny Kaplan Department: [facility] Inpatient Psychiatry Number of Participants: 17 Group Focus: Goals Treatment Modality: Discussion Interventions utilized were: N/A Purpose: Goal setting Name: Braeden Palmer Date of : 1940 MR: [id number] Level of Participation: Good Quality of Participation: [...] from the original note were not included. [facility] Behavioral Health Unit Daily Progress Note [...] Sleep: Sleep Total Hours of Sleep: 8 (0-) Meals: I&O: I/O last 3 completed shifts: [...] QT Interval 414 QTC Interval 434 R [place] 38 T Wave [place] 94 Diagnosis Atrial fibrillation with premature ventricular [...] reasons for living, exercising self direction, cultural/spiritual latter-day involvement, access to housing, and good interpersonal [...] no reported psychiatric history who presented to [facility] via private vehicle driven by other from home on 01/11/25 with concerns of active suicidal ideation with attempts to obtain lethal means. They were subsequently admitted to [facility] 01/12/25 on 72 hour hold for continued [...] changed? 4 (no change) PLAN: Admission to [facility] for further inpatient psychiatric management Continue Lexapro [...] 0-3 Units, Subcutaneous, Twice at night pancrelipase (Lbg-Umgi-Eyms), 1 capsule, Oral, TID with meals pantoprazole, [...] of feelings encouraged Goal: Develops/Participates in Therapeutic Tilly to Support Successful Transition Outcome: Ongoing, Progressing Flowsheets (Taken 01/12/20252217) Develops/Participates in Therapeutic Tilly to Support Successful Transition: making progress toward outcome Intervention: Foster Therapeutic Tilly Flowsheets (Taken 01/12/20252217) Trust Relationship/Rapport: care explained [...] Promote Psychosocial Wellbeing Flowsheets Taken 01/12/20252217 by Clinton Heller RN Sleep/Rest Enhancement: awakenings minimized noise [...] means. [facility] for further management of SI. [...] The patient is supposed to see his layer up in regards to his CHF and scheduling to get a pacemaker this upcoming . 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 They were subsequently admitted to [facility] 01/12/25 on 72 hour hold for continued [...] changed? 4 (no change) PLAN: Admission to [facility] for further inpatient psychiatric management Continue Lexapro [...] of feelings encouraged Goal: Develops/Participates in Therapeutic Tilly to Support Successful Transition 01/12/2025 135 by Leif Vicente Outcome: Ongoing, Progressing Flowsheets (Taken 01/12/20251356) Develops/Participates in Therapeutic Tilly to Support Successful Transition: making progress toward outcome 01/12/20251354 by Leif Vicente Outcome: Ongoing, Progressing Intervention: Foster Therapeutic Tilly Flowsheets (Taken 01/12/20251356) Trust Relationship/Rapport: care explained choices provided questions encouraged reassurance provided thoughts/feelings acknowledged Intervention: Mutually Develop Transition Plan Flowsheets (Taken 01/12/20251356) Concerns to be Addressed: medication mental health Readmission Within the Last 30 Days: no previous admission in last 30 days * ED Notes - Margi Morales RN - 01/12/2025 12:13 PM EST Patient was transferred to [facility] at this time via dispatch. He left with his belongings. * ED Notes - Margi Morales RN - 01/12/2025 12:11 PM EST Patient * Progress Notes - Kesha Mcgill APRN - 01/12/2025 11:11 AM EST [id number] Transfer I received sign-out and accepted care of this patient from the departing providers Vandana Carrera [id number] hour. Please see the primary providers' note for complete elements of the history, physical exam, and ED course. Braeden Palmer [id number] Admit Status: Involuntary - 72hr hold signed by [facility] attending. Hold start date/time 01/12/25 0727, hold end date/time 01/17/25 0800 Brief HPI: 84 y.o.male w/ reported history of depression who self-presented via private vehicle to [facility] for Suicidal ideations. Admit to [facility] for further evaluation and/or management of suicidal [...] provided to Roberto Leon, svitlana physician to [facility]. * ED Notes - Margi Morales RN - 01/12/2025 9:31 AM EST Report called to Leif Vicente RN at [facility] including the list of medications he was due this morning that were unavailable at [facility] and will need to be given at [facility]. Provider aware. * ED Provider Notes - [...] The patient is supposed to see his layer up in regards to his CHF and scheduling [...] till today. They then broughtthe patient [facility] evaluation. Patient currently lives with his [...] - 99 mg/dL 01/16/2025 11:28 AM EST [facility] Comment:Accuracy of [...] for testing. Comment 01/16/2025 11:28 AM EST [facility] Drawbridge Operator ID Ness Barber 025 11:28 AM EST [email or web address] Device ID [id number] 01/16/2025 11:28 AM EST [facility] Specimen Type POC Capillary 01/16/2025 11:28 AM EST [email or web address] Blood Capillary blood specimen / Unknown 01/16/2025 11:27 AM EST 01/16/2025 11:28 AM EST Davina Hill Yu DO LAB POINT OF CARE TEST DOCKED DEVICE UNSOLICITED RESULTS Final Result Performing Organization Address City/[facility] Co de Phone Number [facility]ALTH[facility]ARE [facility] [address] [place] [address] * (ABNORMAL) POCT glucose meter (01/16/2025 7:45 [...] for testing. Comment 01/16/2025 7:47 AM EST [email or web address] Drawbridge Operator ID Clive Patterson 01/16/2025 7:47 AM EST [email or web address] Device ID [id number] 01/16/2025 7:47 AM EST [facility] Specimen Type POC Capillary 01/16/2025 7:47 AM EST [facility] Blood Capillary blood specimen / Unknown 01/16/2025 7:45 AM EST 01/16/2025 7:47 AM EST Davnia Hill Yu JHAVERI LAB POINT OF CARE TEST DOCKED DEVICE UNSOLICITED RESULTS Final Result Performing Organization Address City/[facility] Co de Phone Number [facility] [address] [place] [address] * (ABNORMAL) POCT glucose meter (01/16/2025 2:53 [...] for testing. Comment 01/16/2025 2:54 AM EST [facility] Drawbridge Operator ID Jackie Gomez 01/16/2025 2:54 AM EST [facility] Device ID [id number] 01/16/2025 2:54 AM EST [facility] Specimen Type POC Capillary 01/16/2025 2:54 AM EST [facility] Blood Capillary blood specimen / Unknown 01/16/2025 2:53 AM EST 01/16/2025 2:54 AM EST Davina M Yu DO LAB POINT OF CARE TEST DOCKED DEVICE UNSOLICITED RESULTS Final Result Performing Organization Address [facility] Co de Phone Number [facility] [address] [place] [address] * (ABNORMAL) POCT glucose meter (01/15/2025 8:50 PM EST) [facility] POCT Glucose 250(H) 74 - 99 mg/dL 01/15/2025 8:52 PM EST [email or web address] Comment:Accuracy of a glucos e result [...] for testing. Comment 01/15/2025 8:52 PM EST [facility] Drawbridge Operator ID Jackie Gomez 01/15/2025 8:52 PM EST [facility] Device ID [id number] 01/15/2025 8:52 PM EST [facility] Specimen Type POC Capillary 01/15/2025 8:52 PM EST [facility] Blood Capillary blood specimen / Unknown 01/15/2025 8:50 PM EST 01/15/2025 8:52 PM EST Davina M Yu DO LAB POINT OF CARE TEST DOCKED DEVICE UNSOLICITED RESULTS Final Result Performing Organization Address City/[facility]/ZIP Co de Phone Number [facility] [address] [place] [address] * (ABNORMAL) POCT glucose meter (01/15/2025 4:40 PM EST) [facility] POCT Glucose 210(H) 74 - 99 [...] 01/15/2025 4:41 PM EST [facility] Drawbridge Operator ID ArletteWanda vines 01/15/2025 4:41 PM EST [facility] Device ID [id number] 01/15/2025 4:41 PM EST [facility] Specimen Type POC Capillary 01/15/2025 4:41 PM EST [facility] Blood Capillary blood specimen / Unknown 01/15/2025 4:40 PM EST 01/15/2025 4:41 PM EST Davina Nicholas DO LAB POINT OF CARE TEST DOCKED DEVICE UNSOLICITED RESULTS Final Result Performing Organization Address City/State/[facility] Co de Phone Number [facility] [address] [place] [address] * (ABNORMAL) POCT glucose meter (01/15/2025 11:35 AM EST) [facility] POCT Glucose 209(H) 74 - 99 [...] 01/15/2025 11:37 AM EST [facility] Drawbridge Operator ID Wanda Veliz 01/15/2025 11:37 AM EST [facility] Device ID [id number] 01/15/2025 11:37 AM EST [facility] Specimen Type POC Capillary 01/15/2025 11:37 AM EST [facility] Blood Capillary blood specimen / Unknown 01/15/2025 11:35 AM EST 01/15/2025 11:37 AM EST Davina Hill Yu DO LAB POINT OF CARE TEST DOCKED DEVICE UNSOLICITED RESULTS Final Result Performing Organization Address [facility] de Phone Number [facility] [address] [place] [address] * (ABNORMAL) POCT glucose meter (01/15/2025 7:45 [...] for testing. Comment 01/15/2025 7:46 AM EST [email or web address] Drawbridge Operator ID Wanda Veliz 01/15/2025 7:46 AM EST [email or web address] Device ID [id number] 01/15/2025 7:46 AM EST [facility] Specimen Type POC Capillary 01/15/2025 7:46 AM EST [facility] Blood Capillary blood specimen / Unknown 01/15/2025 7:45 AM EST 01/15/2025 7:46 AM EST Davina Hill Yu JHAVERI LAB POINT OF CARE TEST DOCKED DEVICE UNSOLICITED RESULTS Final Result Performing Organization Address City/[facility] de Phone Number [facility] [address] [place] [address] * (ABNORMAL) POCT glucose meter (01/14/2025 8:05 [...] 01/14/2025 8:06 PM EST [facility] Drawbridge Operator ID Sera Mustafa 01/15/20 8:06 PM EST [facility] Device ID [id number] 01/14/2025 8:06 PM EST [facility] Specimen Type POC Capillary 01/14/2025 8:06 PM EST [facility] Blood Capillary blood specimen / Unknown 01/14/2025 8:05 PM EST 01/14/2025 8:06 PM EST Davina Nicholas DO LAB POINT OF CARE TEST DOCKED DEVICE UNSOLICITED RESULTS Final Result Performing Organization Address [facility] Co de Phone Number [facility] [address] [place] [address] * (ABNORMAL) POCT glucose meter (01/14/2025 4:50 PM EST) POCT Glucose 252(H) 74 - 99 mg/dL 01/14/2025 4:52 PM EST [facility] Comment:Accuracy of [...] for testing. Comment 01/14/2025 4:52 PM EST [facility] Drawbridge Operator ID Yusef Lazcano 025 4:52 PM EST [facility] Device ID [id number] 01/14/2025 4:52 PM EST [facility] Specimen Type POC Capillary 01/14/2025 4:52 PM EST [facility] Blood Capillary blood specimen / Unknown 01/14/2025 4:50 PM EST 01/14/2025 4:52 PM EST Davina Nicholas DO LAB POINT OF CARE TEST DOCKED DEVICE UNSOLICITED RESULTS Final Result Performing Organization Address City/[facility]/ZIP Co de Phone Number [facility] [address] [place] [address] * (ABNORMAL) POCT glucose meter (01/14/2025 11:45 AM EST) POCT Glucose 181(H) 74 - 99 mg/dL [...] testing. Comment 01/14/2025 11:46 AM EST [email or web address] Drawbridge Operator ID Ava Bello 01/14/2025 11:46 AM EST [facility] Device ID [id number] 01/14/2025 11:46 AM EST [facility] Specimen Type POC Capillary 01/14/2025 11:46 AM EST [email or web address] Blood Capillary blood specimen / Unknown 01/14/2025 11:45 AM EST 01/14/2025 11:46 AM EST Davina Nicholas DO LAB POINT OF CARE TEST DOCKED DEVICE UNSOLICITED RESULTS Final Result Performing Organization Address City/State/[facility] Co de Phone Number [facility] [address] [place], [place] [id number] * (ABNORMAL) POCT glucose meter (01/14/2025 8:01 AM EST) Pathologist [facility] POCT Glucose 146(H) 74 - 99 mg/dL [...] 01/14/2025 8:03 AM EST [facility] Drawbridge Operator ID Ava Bello 01/14/2025 8:03 AM EST [facility] Device ID [id number] 01/14/2025 8:03 AM EST [facility] Specimen Type POC Capillary 01/14/2025 8:03 AM EST [facility] Blood Capillary blood specimen / Unknown 01/14/2025 8:01 AM EST 01/14/2025 8:03 AM EST Davina Nicholas DO LAB POINT OF CARE TEST DOCKED DEVICE UNSOLICITED RESULTS Final Result Performing Organization Address City/[facility] Co de Phone Number [facility] [address] [place] [address] * (ABNORMAL) POCT glucose meter (01/13/2025 9:54 PM EST) POCT Glucose 189(H) 74 - 99 mg/dL 01/13/2025 9:56 PM EST [facility] Comment:Accuracy of [...] for testing. Comment 01/13/2025 9:56 PM EST [facility] Drawbridge Operator ID Akwa, Innocent 9:56 PM EST [email or web address] Device ID [id number] 01/13/2025 9:56 PM EST [facility] Specimen Type POC Capillary 01/13/2025 9:56 PM EST [facility] Blood Capillary blood specimen / Unknown 01/13/2025 9:54 PM EST 01/13/2025 9:56 PM EST Davina Kang MD LAB POINT OF CARE TE ST DOCKED DEVICE UNSOLICITED RESULTS Final Result Performing Organization Address City/[facility]/ZIP Co de Phone Number [facility] [address] [place] [address] * (ABNORMAL) POCT glucose meter (01/13/2025 4:59 [...] 01/13/2025 5:01 PM EST [facility] Drawbridge Operator ID Alize Carver 025 5:01 PM EST [facility] Device ID [id number] 01/13/2025 5:01 PM EST [facility] Specimen Type POC Capillary 01/13/2025 5:01 PM EST [facility] Blood Capillary blood specimen / Unknown 01/13/2025 4:59 PM EST 01/13/2025 5:01 PM EST us Davina Kang MD LAB POINT OF CARE TE ST DOCKED DEVICE UNSOLICITED RESULTS Final Result Performing Organization Address City/[facility]/ZIP Co de Phone Number [facility] [address] [place] [address] * (ABNORMAL) POCT glucose meter (01/13/2025 11:54 AM EST) [facility] POCT Glucose 208(H) 74 - 99 [...] 01/13/2025 11:56 AM EST [facility] Drawbridge Operator ID Patricia Stallworth 11:56 AM EST [facility] Device ID [id number] 01/13/2025 11:56 AM EST [facility] Specimen Type POC Capillary 01/13/2025 11:56 AM EST [facility] Blood Capillary blood specimen / Unknown 01/13/2025 11:54 AM EST 01/13/2025 11:56 AM EST us Davina Kang MD LAB POINT OF CARE TE ST DOCKED DEVICE UNSOLICITED RESULTS Final Result [facility] [address] [place] [address] * (ABNORMAL) POCT glucose meter (01/13/2025 8:02 AM EST) POCT Glucose 152(H) 74 - 99 mg/dL 01/13/2025 8:04 AM EST [facility] Comment:Accuracy of [...] for testing. Comment 01/13/2025 8:04 AM EST [facility] Drawbridge Operator ID Patricia Stallworth 8:04 AM EST [facility] Device ID [id number] 01/13/2025 8:04 AM EST [facility] Specimen Type POC Capillary 01/13/2025 8:04 AM EST [facility] Blood Capillary blood specimen / Unknown 01/13/2025 8:02 AM EST 01/13/2025 8:04 AM EST Davina Kang MD LAB POINT OF CARE TE ST DOCKED DEVICE UNSOLICITED RESULTS Final Result Performing Organization Address City/[facility]/ZIP Co de Phone Number [facility] [address] [place] [address] * TSH Reflex FT4 (01/13/2025 5:13 AM EST) Pathologist [facility] Thyroid Stimulating Hormone, Plasma 3.08 0.40 - 4.20 uIU/mL 01/13/2025 7:02 AM EST [email or web address] Blood Venous blood specimen / Unknown Venipuncture / Unknown 01/13/2025 5:13 AM EST 01/13/2025 5:37 AM EST us Davina Kang MD LAB BLOOD ORDERABLES Final Resul t Performing Organization Address City/[facility]/ZIP Co de Phone Number [facility] [address] [place] [address] * (ABNORMAL) Lipid panel (01/13/2025 5:13 AM EST) Cholesterol, Plasma 85 <200 mg/dL 01/13/2025 7:02 AM EST [email or web address] Comment: Cholesterol Reference Range (age >17 years): Desirable <200 mg/dL Borderline 200 to 239 mg/dL Undesirable >239 mg/dL HDL 35(L) >=40 mg/dL 01/13/2025 7:02 AM EST [email or web address] Comment: HDL Cholesterol Reference Ranges (age >17 years): Female, acceptable > or = 50 mg/dL Male, acceptable > or = 40 mg/dL Triglycerides, Plasma 92 <150 mg/dL 01/13/2025 7:02 AM EST [email or web address] Comment: Triglyceride Reference Range (age >17 years): Desirable: <150 mg/dL Borderline high: 150 to 199 mg/dL High: 200 to 499 mg/dL Very high: >499 mg/dL Increased risk of pancreatitis: >1000 mg/dL Cholesterol/HDL Ratio 2 01/13/2025 7:02 AM EST [facility] LDL, Calculated 32 <100 mg/dL 7:02 AM EST [email or web address] Comment: LDL Cholesterol Reference Range (age [...] 12 hours? Unknown 01/13/2025 7:02 AM EST [facility] Blood Venous blood specimen / Unknown Venipuncture / Unknown 01/13/2025 5:13 AM EST 01/13/2025 5:37 AM EST us Davina Kang MD LAB BLOOD ORDERABLES Final Resul t [facility] [address] [place] [address] * Phosphorus (01/13/2025 5:13 AM EST) Phosphorus, Plasma 4.3 2.5 - 4.5 mg/dL 01/13/2025 7:02 AM EST [facility] Blood Venous blood specimen / Unknown Venipuncture / Unknown 01/13/2025 5:13 AM EST 01/13/2025 5:37 AM EST us Davina Kang MD LAB BLOOD ORDERABLES Final Resul t [facility] [address] [place] [id number] * (ABNORMAL) Comprehensive metabolic panel (01/13/2025 5:13 AM EST) Glucose, Plasma 143(H) 74 - 99 mg/dL 01/13/2025 7:02 AM EST [facility] BUN, Plasma 25(H) 8 - 23 mg/dL 01/13/2025 7:02 AM [facility] Creatinine, Plasma 1.41(H) 0.70 - 1.20 mg/dL 01/13/2025 7:02 AM EST [facility] BUN/Creatinine Ratio 18 01/13/2025 7:02 AM [facility] Sodium, Plasma 139 136 - 145 mmol/L 01/13/2025 7:02 AM [facility] Potassium, Plasma 4.0 3.6 - 4.9 mmol/L 01/13/2025 7:02 AM [facility] Chloride, Plasma 103 97 - 107 mmol/L 01/13/2025 7:02 AM [facility] CO2, Plasma 30(H) 22 - 29 mmol/L 01/13/2025 7:02 AM [facility] Anion Gap 6 6 - 16 mmol/L 01/13/2025 7:02 AM [facility] Total Calcium, Plasma 9.0 8.9 - 10.2 mg/dL 01/13/2025 7:02 AM [facility] Total Protein 6.0(L) 6.3 - 7.9 g/dL 01/13/2025 7:02 AM [facility] Albumin, Plasma 3.7 3.5 - 5.2 g/dL 01/13/2025 7:02 AM [facility] AST, Plasma 13 10 - 50 U/L 01/13/2025 7:02 AM [facility] ALT, Plasma 6(L) 10 - 50 U/L 01/13/2025 7:02 AM EST [facility] Alkaline Phosphatase, Plasma 72 40 - 115 U/L 01/13/2025 7:02 AM EST [facility] Total Bilirubin, Plasma 0.5 0.2 - 1.1 mg/dL 01/13/2025 7:02 AM EST [facility] eGFRcr 48.5 mL/min/1.7 3m*2 01/13/2025 7:02 AM EST [facility] Comment:Reported eGFRcr in m L/min/1.73m2 is based the CKD-EPI 2020 equation that does not use a race coefficient. Blood Venous blood specimen / Unknown Venipuncture / Unknown 01/13/2025 5:13 AM EST 01/13/2025 5:37 AM EST us Davina Kang MD LAB BLOOD ORDERABLES Final Resul t [facility] [address] [place] [address] * (ABNORMAL) CBC and differential (01/13/2025 5:13 AM EST) WBC Count 6.68 3.70 - 10.30 10*3/uL LAB HEMATOLOGY METHOD 01/13/2025 5:41 AM EST [facility] RBC Count 3.21(L) 4.60 - 6.10 10*6/uL LAB HEMATOLOGY METHOD 01/13/2025 5:41 AM EST [facility] HGB 10.2(L) 13.7 - 17.5 g/dL LAB HEMATOLOGY METHOD 01/13/2025 5:41 AM EST [facility] HCT 31.8(L) 40.0 - 51.0 % LAB HEMATOLOGY METHOD 01/13/2025 5:41 AM EST [facility] Platelet Count 177 155 - 369 10*3/uL LAB HEMATOLOGY METHOD 01/13/2025 5:41 AM EST [facility] MCV 99(H) 79 - 98 fL LAB HEMATOLOGY METHOD 01/13/2025 5:41 AM EST [facility] MCH 31.8 26.0 - 32.0 pg LAB HEMATOLOGY METHOD 01/13/2025 5:41 AM EST [facility] MCHC 32.1 30.7 - 35.5 g/dL LAB HEMATOLOGY METHOD 01/13/2025 5:41 AM [facility] RDW 16.0(H) 11.5 - 14.5 % LAB HEMATOLOGY METHOD 01/13/2025 5:41 AM EST [facility] MPV 10.5 8.8 - 12.5 fL LAB HEMATOLOGY METHOD 01/13/2025 5:41 AM EST [facility] nRBC 0.0 <=0.0 per 100 WBCs LAB HEMATOLOGY METHOD 01/13/2025 5:41 AM EST [facility] Differential Type Automated LAB HEMATOLOGY METHOD 01/13/2025 5:41 AM EST [facility] Neutrophils % 56 % LAB HEMATOLOGY METHOD 01/13/2025 5:41 AM [facility] Lymphocytes % 33 % LAB HEMATOLOGY METHOD 01/13/2025 5:41 AM EST [facility] Monocytes % 8 % LAB HEMATOLOGY METHOD 01/13/2025 5:41 AM [facility] Eosinophils % 1 % LAB HEMATOLOGY METHOD 01/13/2025 5:41 AM [facility] Basophils % 1 % LAB HEMATOLOGY METHOD 01/13/2025 5:41 AM [facility] Immature Granulocytes % 1 % LAB HEMATOLOGY METHOD 01/13/2025 5:41 AM [facility] Neutrophils Absolute 3.81 1.60 - 6.10 10*3/uL LAB HEMATOLOGY METHOD 01/13/2025 5:41 AM EST [facility] Lymphocytes Absolute 2.23 1.20 - 3.90 10*3/uL LAB HEMATOLOGY METHOD 01/13/2025 5:41 AM [facility] Monocytes Absolute 0.52 0.30 - 0.90 10*3/uL LAB HEMATOLOGY METHOD 01/13/2025 5:41 AM [facility] Eosinophils Absolute 0.04 0.00 - 0.50 10*3/uL LAB HEMATOLOGY METHOD 01/13/2025 5:41 AM [facility] Basophils Absolute 0.04 0.00 - 0.10 10*3/uL LAB HEMATOLOGY METHOD 01/13/2025 5:41 AM [facility] Immature Granulocytes Absolute 0.04 0.00 - 0.06 10*3/uL LAB HEMATOLOGY METHOD 01/13/2025 5:41 AM [facility] Blood Venous blood specimen / Unknown Venipuncture / Unknown 01/13/2025 5:13 AM EST 01/13/2025 5:41 AM EST Narrative [facility] - 01/13/2025 5:41 AM EST Therapeutic decision making should be based on absolute values, rather than percentages. Davina Kang MD LAB BLOOD ORDERABLES Final Resul t Performing Organization Address City/[facility] Co de Phone Number [facility] [address] [place] [address] * HIV 1 & 2 Antibody/Antigen Screen (01/13/2025 5:13 AM EST) HIV 1 & 2 Antibody/Antigen Screen Non Reactive Non Reactive 01/13/2025 7:06 AM EST [facility] Comment:Screening for HIV 1 & 2 antibodies, and P24 antigen is NONREACTIVE. No confirmatory testing is required. Blood Venous blood specimen / Unknown Venipuncture / Unknown 01/13/2025 5:13 AM EST 01/13/2025 5:37 AM EST Vandana BUTCHER LAB BLOOD ORDERABLES Final Re sult Performing Organization Address City/[facility]/ZIP Co de Phone Number [facility] [address] [place] [address] * Hepatitis C Antibody with Reflex to HCV Quant PCR - [facility] (01/13/2025 5:13 AM EST) Hepatitis C Antibody Negative Negative 01/13/2025 6:59 AM EST [facility] Blood Venous blood specimen / Unknown Venipuncture / Unknown 01/13/2025 5:13 AM EST 01/13/2025 5:37 AM EST Davina Kang MD LAB BLOOD ORDERABLES Final Resul t Performing Organization Address City/[facility]/ZIP Co de Phone Number [facility] [address] [place] [address] * Hepatitis B Surface Antigen - [facility] (01/13/2025 5:13 AM EST) Hepatitis B Surf Antigen Negative Negative 01/13/2025 9:55 AM EST [facility] Blood Venous blood specimen / Unknown Venipuncture / Unknown 01/13/2025 5:13 AM EST 01/13/2025 5:37 AM EST us Davina Kang MD LAB BLOOD ORDERABLES Final Resul t [facility] [address] [place] [address] * (ABNORMAL) POCT glucose meter (01/13/2025 3:08 AM EST) POCT Glucose 137(H) 74 - 99 mg/dL 01/13/2025 3:10 AM EST [email or web address] Comment:Accuracy of a glucos e result [...] for testing. Comment 01/13/2025 3:10 AM EST [facility] Drawbridge Operator ID AlshuClinton rooney 025 3:10 AM EST [facility] Device ID [id number] 01/13/2025 3:10 AM EST [facility] Specimen Type POC Capillary 01/13/2025 3:10 AM EST [facility] Blood Capillary blood specimen / Unknown 01/13/2025 3:08 AM EST 01/13/2025 3:10 AM EST us Daivna Kang MD LAB POINT OF CARE TE ST DOCKED DEVICE UNSOLICITED RESULTS Final Result [facility] [address] [place] [address] * (ABNORMAL) POCT glucose meter (01/12/2025 7:49 [...] Comment 01/12/2025 7:50 PM EST [facility] Drawbridge Operator ID Santhosh Crane 01/12/2025 7:50 PM EST [facility] Device ID [id number] 01/12/2025 7:50 PM EST [facility] Specimen Type POC Capillary 01/12/2025 7:50 PM EST [facility] Blood Capillary blood specimen / Unknown 01/12/2025 7:49 PM EST 01/12/2025 7:50 PM EST Davina Kang MD LAB POINT OF CARE TE ST DOCKED DEVICE UNSOLICITED RESULTS Final Result Performing Organization Address City/[facility]/ZIP Co de Phone Number [facility] [address] [place] [address] * ECG Adult (01/12/2025 6:23 PM EST) EKG DIAGNOSIS CLASS Abnormal MUSE ECG Ventricular Rate 66 BPM MUSE ECG QRSD Interval 96 ms MUSE ECG QT Interval 414 ms MUSE ECG QTC Interval 434 ms MUSE ECG R [place] 38 degrees MUSE ECG T Wave [place] 94 degrees MUSE ECG Diagnosis Atrial fibrillation with premature ventricular or aberrantly conducted complexes MUSE ECG Diagnosis Indeterminate axis MUSE ECG Diagnosis Abnormal ECG MUSE ECG Diagnosis MUSE ECG Diagnosis Confirmed by Osmin Valerio ([id number]) on 01/13/2025 5:12:51 PM MUSE ECG 01/12/2025 [...] 01/12/2025 4:41 PM EST [facility] Drawbridge Operator ID Leif Vicente 01/12/2025 4:41 PM EST [facility] Device ID [id number] 01/12/2025 4:41 PM EST [facility] Specimen Type POC Capillary 01/12/2025 4:41 PM EST [facility] Blood Capillary blood specimen / Unknown 01/12/2025 4:39 PM EST 01/12/2025 4:41 PM EST us Davina Kang MD LAB POINT OF CARE TE ST DOCKED DEVICE UNSOLICITED RESULTS Final Result Performing Organization Address City/[facility]/ZIP Co de Phone Number [facility] [address] [place] [address] * (ABNORMAL) POCT Glucose - Before Meals and Bedtime (01/12/2025 8:17 AM EST) POCT Glucose 152(A) 74 - 99 mg/dL [facility] Test Strip Lot Number [id number] [facility] Test Strip Expiration [id number] [facility] Blood Venous blood specimen / Unknown 01/12/2025 8:17 AM EST us Davina Kang MD POINT OF CARE TEST ENTER/EDIT OR DERABLES Final Result [facility] [address] [place] [address] documented in this encounter Visit Diagnoses Diagnosis [...] Oral, 2 times daily, First dose on Tue01/12/25 at 1300, Until Discontinued, Routine Given 01/16/2025 9:30 AM EST 2.5 mg Given 01/15/2025 9:00 PM EST 2.5 mg Given 01/15/2025 8:40 AM EST 2.5 mg atorvastatin (Lipitor) tablet 20 mg 20 mg, Oral, Nightly, First dose on Tue01/12/25 at 2100, Until Discontinued Given 01/15/2025 9:00 [...] Oral, 2 times daily, First dose on Tue01/12/25 at 1300, Until Discontinued, Routine Given 01/16/2025 [...] Routine, irritation, allergies, dry eye pancrelipase (Creon) 22278 unit capsule 1 capsule, Oral, 3 times [...] 9:17 AM EST 5 mg sodium chloride ([place]) 0.65 % nasal spray 1 spray 1 [...] RN) 0838 (Given - Provider: Wanda Veliz RN)2100 (Given - Provider: Jackie Gomez RN) 0930 [...] Gomez RN) 0930 (Given - Provider: Clive Patterson RN) atorvastatin (Lipitor) tablet 20 mg 20 mg, Oral, Nightly, First dose on 01/12/25 at 2100, Until Discontinued 2005 (Given - Provider: Sera Mustafa, RN) 2099 (Given - Provider: Jackie Gomez [...] Gomez RN) 09 (Given - Provider: Clive Patterson RN) clopidogrel (Plavix) tablet 75 mg 75 mg, Oral, Daily, First dose (after last modification) on 01/12/25 at 1545, Until Discontinued, Routine 0916 (Given - Provider: Ava Bello RN) 0838 (Given - Provider: Wanda Veliz, MARIA D) 0930 (Given - Provider: Clive Patterson, MARIA D) empagliflozin (Jardiance) tablet 10 mg 10 mg, Oral, Daily, First dose on 01/12/25 at 1600, Until Discontinued, Routine 0917 (Given - Provider: Ava Bello RN) 0838 (Given - Provider: Wanda Veliz, MARIA D) 0930 (Given - Provider: Clive Patterson, MARIA D) escitalopram (Lexapro) tablet 10 mg 10 mg, Oral, Daily, First dose (after last modification) on Tue01/15/25 at 0900, Until Discontinued, Routine 0838 (Given - Provider: Wanda eVliz RN) 0930 (Given - Provider: Clive Patterson, [...] Patterson, MARIA D)1203 (Given - Provider: Ness Barber, MARIA D) insulin lispro (Admelog) injection - Correction - [...] Dueñas RN - Reason: Order parameters not met)210 (Given - Provider: Jackie Gomez, MARIA D) 025 (Not Given - Provider: Jackie Gomez RN - Reason: Order parameters not met) pancrelipase (Creon) 73505 unit capsule 1 capsule, Oral, 3 times [...] RN) 0803 (Given - Provider: Clive Patterson, MARIA D)1208 (Given - Provider: Ness Barber RN) pantoprazole [...] Refused) 0935 (Not Given - Provider: Clive Patterson RN - Reason: Patient/Family/Repre sentative Refused) predniSONE (Deltasone) tablet 5 mg 5 mg, Oral, Daily, First dose on 01/12/25 at 1300, Until Discontinued, Routine 0917 (Given - Provider: Ava Bello RN) 0838 (Given - Provider: Wanda Veliz RN) 0930 (Given - Provider: Clive Patterson, RN) tamsulosin (Flomax) 24 hr capsule 0.4 [...] 2099 (Given - Provider: Jackie Gomez RN) magnesium hydroxide (Milk of Magnesia) 400 MG/5ML suspension 10 mL 10 mL, Oral, Daily PRN, Starting on Tue01/11/25 at 2217, Until Tue01/16/25 at 1720, Routine, constipation melatonin tablet 3 mg 3 mg, Oral, Nightly PRN, Starting on 01/13/25 at 1917, Until Tue01/16/25 at 1720, Routine, sleep 2005 (Given - Provider: Sera Mustafa RN) 2100 (Given - Provider: Jackie Gomez RN) ocular lubricant (Artificial Tears) ophthalmic solution 1 drop 1 drop, Both Eyes, As needed, Starting on 01/13/25 at 1917, Until Tue01/16/25 at 1720, Routine, irritation, allergies, dry eye sodium chloride ([place]) 0.65 % nasal spray 1 spray 1 [...] documented as of this encounter Care Teams [employer] Att[employer] Relationship Specialty Start Date End Date Christopher Yadav MD [address] [place] [address] [address] [place] [address] PCP - General 07/11/20 documented as of this encounter
--- OUTSIDE RECORDS SUMMARY | 2025-02-08 12:27 | XMS_ITS | Encounter Summary ---
Author Organization [facility] ystem Address [address] [place] [address] Care Team Providers Care Surfacing Machine Operator Name Role Phone Christopher Yadav MD Primary Care Provider [phone] Encounter Details Date Type Department Care Team (Latest Contact Info) Description 02/08/2025 12:27 PM EST - 02/08/2025 11:59 PM [facility] [address] [place] [address] [address] [place] [address] Discharge Disposition: Home or Self Care Social History Tobacco Use Types Packs/Day Years Used Date Smoking Tobacco: Former Smokeless Tobacco: Never Comments:quit 1980 Alcohol Use Standard Drinks/Week Comments No 0 (1 standard drink = 0.6 oz pur e alcohol) [facility] Utilities Answer Date Recorded In the past 12 months has [employer] gas, oil, or water [employer] threatened to shut off services in your [...] GED or equivalent No 10/30/2024 Preferred Language Bahamian 10/30/2024 Sex and Gender Information Value Date [...] night apixaban (ELIQUIS) 2.5 MG tablet tabletIndications:At [facility] Fibrillation - requiring full anticoagulation Take 1 [...] disorder/disordered eating habits: None Language/communication details: speaks, ukrainian Barriers to learning: No barriers identified at [...] Info) Description 03/19/2025 1:15 PM EST Appointment [facility]UTRIT [facility] [address] [place] [address] 06/19/2025 8:45 AM EDT Office Visit [facility]ICAL [facility] ENDOCRINOLOGY [address] [facility] [address] [place] [address] Daniel Vasquez MD [address] [facility] [address] [place] [address] documented as of this encounter Visit Diagnoses Not on filedocumented in this encounter Care Teams Surfacing Machine Operator Relationship Specialty Start Date End Date Christopher Yadav MD [address] [facility] [address] [facility] [place] [address] PCP - General Internal Medicine 07/27/23 documented as of this encounter
--- OUTSIDE RECORDS SUMMARY | 2025-02-12 16:53 | XMS_ITS | Encounter Summary ---
[facility] Organization [facility] Address [address] [place] [address] Care Team Providers Care Consulting Software Engineer Name Role Phone Christopher Yadav MD Primary Care Provider [phone] Encounter Details Date Type Department Care Team (Latest Contact Info) Description 12/19/2024 Travel Social History Tobacco Use Types Packs/Day Years Used Date Smoking Tobacco: Former Smokeless Tobacco: Never Comments:quit 1980 Alcohol Use Standard Drinks/Week Comments No 0 (1 standard drink = 0.6 oz pur e alcohol) [facility] Utilities Answer Date Recorded In the past 12 months has [employer], gas, oil, or water company threatened [...] GED or equivalent No 10/30/2024 Preferred Language Mauritanian 10/30/2024 Sex and Gender Information Value Date Recorded Sex Assigned at Not on file Legal Sex Male 1:45 PM EDT Gender Identity Not on file Sexual Orientation Not on file documented as of this encounter Plan of Treatment Upcoming Encounters Date Type Department Care Team (Late st Contact Info) Description 03/19/2025 1:15 PM EST Appointment [facility] [address] [place] [address] 06/19/2025 8:45 AM EDT Office Visit [facility] ENDOCRINOLOGY [address] [facility] [address] [place] [id number] Daniel Vasquez MD [address] [facility] [address] [place] [address] documented as of this encounter Visit Diagnoses Not on filedocumented in this encounter Care Teams Consulting Software Engineer Relationship Specialty Start Date End Date Christopher Yadav MD [address] [facility] [address] [facility] [address] [place] [address] PCP - General Internal Medicine 07/27/23 documented as of this encounter
--- OUTSIDE RECORDS SUMMARY | 2025-02-12 16:53 | XMS_ITS | Encounter Summary ---
Author Organization Healthcare Address [address] [place] [address] Care Team Providers Care Surface Room Shop Optician Name Role Phone Christopher Yadav MD Primary Care Provider [phone] Encounter Details Date Type Department Care Team (Late st Contact Info) Description 2023 Lab Requisition [facility] [address] [place] [address] Jamil Maynard MD [address] [facility] [address] [place] [address] Elevated prostate specific antigen (PSA) Social History [...] EDT) Case Report Sugical Pathology Consult Case: [id number] Authorizing Provider: Jamil Maynard MD Collected: 2023 1312 Ordering Location: [facility] Lab Received: 2023 1312 Pathologist: Donna Villalobos MD Specimen: Prostate, [id number] 08/25/2023 10:39 AM EDT HEALTHCARE LAB Final Diagnosis PROSTATE, NEEDLE CORE BIOPSIES (REVIEW OF OUTSIDE SLIDES LABELED SM [id number], PROCEDURE DATE 08/16/2023). A. PROSTATE, RIGHT POSTERIOR [...] OF 1 CORE. 08/25/2023 10:39 AM EDT [facility] at 1038 EDT Comment Perineural invasion is identified. Cribriform pattern 4 is also seen. 08/25/2023 10:39 AM EDT [facility] Clinical Information R97.20 - Elevated prostate specific antigen (PSA) [ICD-10-CM] 08/25/2023 10:39 AM EDT [facility] Gross Description A. [id number] Received along with a corresponding pathology report from [facility]ology [facility] Cytology Laboratory are 8 slides labeled outside case: [id number] collected on 08/16/2023. 08/25/2023 10:39 AM EDT HEALTHCARE LAB Intradepartmental Consultation with Agreement Kely Ghotra MD 08/25/2023 10:39 AM EDT HEALTHCARE LAB Tissue Prostate / Unknown 1:12 PM EDT 2023 1:12 PM EDT us Jamil Maynard MD LAB PATHOLOGY ORDERABLES Savanah lucas Result [facility] [address] [place] [address] documented in this encounter Visit Diagnoses Diagnosis Elevated prostate specific antigen (PSA) documented in this encounter Care Teams Surface Room Shop Optician Relationship Specialty Start Date End Date Christopher Yadav MD [address] [place], [place] [address] [address] [place] [address] PCP - General 07/11/20 documented as of this encounter
--- OUTSIDE RECORDS SUMMARY | 2025-02-12 16:53 | XMS_ITS | Encounter Summary ---
Author Organization Healthcare Address [address] [place] [address] Care Team Providers Care Overlay Operator Name Role Phone Christopher Yadav MD Primary Care Provider [phone] Encounter Details Date Type Department Care Team (Late st Contact Info) Description 01/12/2025 Plan of Care Documentation [facility] Inpatient Psychiatry [address] [place] [address] Social History Tobacco Use Types Packs/Day Years [...] 01/12/2025 How often do you attend chur ch or adventist services? Never 01/12/2025 Do you belong to any clubs o r organizations such as yazidi groups, unions, fraternal or athletic groups, or [...] more drinks on one occasion? Never 01/12/2025 [facility] - Occupational Stress Questionnaire Answer Date Recorded [...] the money to buy more. Never true 01/13/20 25 Within the past 12 months, t [...] any time in the past 12 m [facility], were you homeless or living in a half-way (including now)? No 01/12/2025 [facility] Utilities Answer Date Recorded In the [...] as of this encounter Functional Status * AUDIT-C Score [...] Date of Assessment Author Scale Used Chuy 01/12/2025 10:00 PM EST Clinton Galvez RN * Calculated C-SSRS Risk Score (Lifetime/Recent) Answer Date of Assessment Author High Risk 01/12/2025 4:38 PM EST Cm RN * Suicidal Ideation Question Answer Date of Assessment Author 1. Wish to be (Lifetime) Yes 01/12/2025 4:38 PM EST Jessie Torres RN 2. [...] Wish to be (Past 1 Month) Yes 4:38 PM EST Jessie Torres RN 2. Non-Specific Active Suici nancy Thoughts (Past 1 Month) Yes 01/12/2025 4:38 PM EST Jessie Torres RN 3. Active Suicidal Ideation with any Methods (Not Plan) Without Intent to Act (Past 1 Month) Yes 01/12/2025 4:38 PM EST Brian, Jessie, RN 4. Active Suicidal Ideation with Some Intent to Act, Without Specific Plan (Past 1 Month) Yes 01/12/2025 4:38 PM EST Brian, Jessie, RN 5. Active Suicidal Ideation with Specific [...] Attempt (Lifetime) No 01/12/2025 4:38 PM EST Brian, Jessie, RN Has subject engaged in non-s uicidal self-injurious behavior? (Lifetime) No 01/12/2025 4:38 PM EST S romel, Jessie, RN Interrupted Attempts (Lifetime) No 4:38 PM EST Jessie Torres RN Aborted or Self-Interrupted Attempt (Lifetime) No 01/12/2025 4:38 PM EST Jessie Torres RN Preparatory Acts or Behavior (Lifetime) No 01/12/2025 4:38 PM EST Jessie Torres RN documented as of this encounter Mental Status * Question Answer Entry Date Author Scale Used Chuy 01/12/2025 10:00 PM EST Clinton Galvez RN documented in this encounter Plan of Treatment Not on file documented as of this encounter Visit Diagnoses Not on filedocumented in this encounter Additional Health Concerns Assessment Noted Time PHQ-9 Depression Total Score: 12 025 9:45 PM EST A fall risk assessment has been complete d for the patient 04/11/2024 10:16 AM EST A Body Mass Index follow-up plan has been documented for the patient 01/16/2025 10:49 AM EST documented as of this encounter Care Teams Overlay Operator Relationship Specialty Start Date End Date Christopher Yadav MD [address] [place] [address] [address] [place] [address] PCP - General 07/11/20 documented as of this encounter
--- OUTSIDE RECORDS SUMMARY | 2025-02-12 16:53 | XMS_ITS | Encounter Summary ---
Author Organization Healthcare Address [address] [place] [address] Care Team Providers Care Guillotine Trimmer Name Role Phone Christopher Yadav MD Primary Care Provider [phone] Encounter Details Date Type Department Care Team (Late st Contact Info) Description 07/27/2023 Orders Only External Location [address] [place] [address] Provider, External Social History Tobacco Use Types [...] on filedocumented in this encounter Care Teams Guillotine Trimmer Relationship Specialty Start Date End Date Christopher Yadav MD [address] [facility] [address] [place] [address] PCP - General 07/11/20 documented as of this encounter
--- OUTSIDE RECORDS SUMMARY | 2025-02-12 16:53 | XMS_ITS ---
Author Organization [employer] ([place], [place], [place], [place], [place]) Address [address] [place] [address] Care Team Providers Care Communications Manager Name Role Phone Christopher Yadav MD Primary Care Provider [phone] Active Problems Problem Noted Date Diagnosed Date [...] Treatment Medications Discontinue Reason Plan Provider Cycles [facility] Prostate - leuprolide 22.5 mg (Eligard) every 84 days 4 09/17/2024 leuprolide acetate (3 month) (ELIGARD)sodiu m chloride 0.9 % (NS) Patient Preference Xochitl Serra MD 4 of 16 cycles started
--- OUTSIDE RECORDS SUMMARY | 2025-02-12 16:53 | XMS_ITS | Encounter Summary ---
Author Organization Healthcare Address [address] [place] [address] Care Team Providers Care Mobile Electronics Installer Name Role Phone Christopher Yadav MD Primary Care Provider [phone] Encounter Details Date Type Department Care Team (Latest Contact Info) Description 01/11/2025 Travel Social History Tobacco Use Types Packs/Day [...] often do you attend chur ch or congregational services? Never 01/12/2025 Do you belong to any clubs o r organizations such as sikh groups, unions, fraternal or athletic groups, or [...] more drinks on one occasion? Never 01/12/2025 [facility] - Occupational Stress Questionnaire Answer [...] any time in the past 12 [facility], were you homeless or living in a group home (including now)? No 01/12/2025 [facility] Utilities Answer Date Recorded In [...] as of this encounter Functional Status * Over the past 2 weeks, how often have you been bothered by any of the following problems? Question Answer Date of Assessment Author Patient Health Questionnaire -2 Score 3 01/11/2025 9:45 PM Mikey Kramer RN * Calculated C-SSRS Risk Score (Lifetime/Recent) Answer Date of Assessment Author High Risk 01/11/2025 9:53 PM Gayla Kramer RN * If you checked off any problems on this questionnaire, Question Answer Date of Assessment Author How difficult have these problems made it for you to do your work, take care of things at home, or get along with other people? Very difficult 01/11/2025 9:45 PM Alisha Kramer RN * Over the past 2 weeks, [...] * Question Answer Date of Assessment Author 1. Wish to be (Past 1 Month) Yes 025 9:53 PM Mikey Kramer RN 2. Non-Specific Active Suici nancy Thoughts (Past 1 Month) Yes 01/11/2025 9:53 PM Maria A Kramer, RN 3. Active Suicidal Ideation with any Methods (Not Plan) Without Intent to Act (Past 1 Month) Yes 01/11/2025 9:53 PM Mikey Kramer RN 4. Active Suicidal Ideation with Some Intent to Act, Without Specific Plan (Past 1 Month) Yes 01/11/2025 9:53 PM Mikey Kramer RN 5. Active Suicidal Ideation with Specific Plan and Intent (Past 1 Month) Yes 01/11/2025 9:53 PM Mikey Kramer RN 6. Suicidal Behavior (Lifetime) No 9:53 PM Mikey Kramer RN documented as of this encounter Plan of Treatment Not on file documented as of this encounter Visit Diagnoses Not on filedocumented in this encounter Additional Health Concerns Assessment Noted Time PHQ-9 Depression Total Score: 12 9:45 PM EST A fall risk assessment has been complete d for the patient 04/11/2024 10:16 AM EST A Body Mass Index follow-up plan has been documented for the patient 01/16/2025 10:49 AM EST documented as of this encounter Care Teams Mobile Electronics Installer Relationship Specialty Start Date End Date Christopher Yadav MD [address] [place] [address] [address] [place] [facility] PCP - General 07/11/20 documented as of this encounter
--- OUTSIDE RECORDS SUMMARY | 2025-02-12 16:53 | XMS_ITS | Clinical Summary ---
[facility] Address [address] [place] [address] Care Team Providers Care Parts Room Associate Name Role Phone Christpoher Yadav MD Primary Care Provider [phone] Allergies No known active allergies Medications allopurinol [...] Daily. Active apixaban (ELIQUIS) 2.5 MG tablet tabletIndications:A trial Fibrillation - requiring full anticoagulation Take 1 [...] Meals. 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 Type 2 diabetes [...] 11:27 AM EST): Continue statin. 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 Assessment & Plan (08/12/2021 [...] Diabetes will be reassessed in 3 months. Attune RTDe 2 CGM was downloaded today. 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 12/19/2024 Travel 12/04/2024 Telephone [facility] [address] [place] [address] Daniel Vasquez MD CTVANDANA-GLENDA 2 SENSORS 11/15/2024 Readmission Management [facility] [address] [place] [phone] Fatuma Davalos RN from Last 3 Months Family History Medical [...] 0.6 oz pur e alcohol) [facility] Utilities Answer Date Recorded In the past 12 months has [employer], gas, oil, or water company threatened [...] GED or equivalent No 10/30/2024 Preferred Language Swazi 10/30/2024 Sex and Gender Information Value Date [...] Info) Description 03/19/2025 1:15 PM EST Appointment [facility] [address] [place] [address] 06/19/2025 8:45 AM EDT Office Visit [facility] [address] [facility] [address] [place] [address] Daniel Vasquez MD [address] [facility] [address] [place], [place] [id number] Health Maintenance Due Date Last Done Comments ZOSTER VACCINE (1 of 2) 1988 TDAP/TD VACCINES (1 - Tdap) 01/17/1998 01/16/1998 RSV Vaccine - Adults (1 - 1- dose 75+ series) 2013 ANNUAL WELLNESS VISIT 11/14/2018 DIABETIC FOOT EXAM 04/22/2021 04/22/2020 DIABETIC EYE EXAM 12/17/2023 12/16/2022, , 06/20/2017, Additional history exists COVID-19 Vaccine (2024-2 6 season) 2024 02/03/2023, 12/22/2021, 06/25/2021, Additional history exists URINE MICROALBUMIN-CREATININ E RATIO (uACR) 05/18/2025 05/18/2024 HEMOGLOBIN A1C 06/19/2025 12/19/2024, 04/29, 11/14/2023, Additional history exists LIPID PANEL 01/13/2026 01/13/2025, 12/29, 05/18/2024, Additional history exists Pneumococcal Vaccine 50+ Completed [...] Uncontrolled type 2 diabetes mellitus with hyperglycemia MICROALBUMIN / CREATININE URINE RATIO Routine 05/18/2024 [...] 7.7(A) 4.5 - 5.7 % [facility] Lot Number [id number] [facility] Expiration Date 07/27/2026 [facility] Blood 12/19/2024 11:1 8 AM EDT us Daniel Vasquez MD POINT OF CARE TEST ORDERA BLES Final Result [facility]
[address] [place] [address], * (ABNORMAL) POC Glucose, Blood (12/19/2024 11:15 AM EDT) Glucose 196(A) 70 - 130 mg/dL Lot Number [id number] Expiration Date 05/14/2025 Blood 12/19/2024 11:1 5 AM EDT us Daniel Vasquez MD POINT OF CARE TEST ORDERA BLES Final Result * (ABNORMAL) Microalbumin / Creatinine Urine Ratio - Urine, Clean Catch (05/18/2024 12:04 PM EDT) Microalbumin/C reatinine Ratio 57.7(H) 0.0 - 29.0 mg/g 05/19/2024 12:48 AM EDT [facility] Creatinine, Urine 53.7 mg/dL 05/19/2024 12:48 AM EDT [facility] Microalbumin, Urine 3.1 mg/dL 05/19/2024 12:48 AM EDT [facility] Urine Urine specimen obtained by clean catch procedure / Unknown Collection / Unknown 05/18/2024 12:04 PM EDT 05/18/2024 12:04 PM EDT us Daniel Vasquez MD URINE ORDERABLES Final Re sult [facility]
[address] [place] [address], * SCANNED - EYE EXAM (05/19/2022) Anatomical Region Laterality Modality Other us Daniel Vasquez MD CHART REVIEW EMERALD lucas Result from Last 3 Months or Most Recently Relevant to Health Maintenance Insurance MEDICARE A & B [facility] Advance Directives Documents on File Type Date Recorded Patient Hand Tube Winder Expl anation PATIENT ADVANCE DIRECTIVES - SCAN 11/02/2024 2:50 PM CODE STATUS DNR, [facility], 10/18/2024 LIVING WILL - SCAN 10/17/2024 11:54 AM MADDIE ING WILL, [facility], 02/08/2024 * No CPR (Do Not Attempt [...] breathing): CPR (Attempt to Resuscitate) Medical Interventions (Rosee nt has pulse or is breathing): Full Support Level Of Support Discussed With: Patient * CPR (Attempt to Resuscitate) Date Activated Date Inactivated Comments 11/06/2018 9:01 PM 11/13/2018 6:43 PM Question Answer Comments Code Status (Patient has no pulse and is not breathing): CPR (Attempt to Resuscitate) Medical Interventions (Rosee nt has pulse or is breathing): Full Care Teams Parts Room Associate Relationship Specialty Start Date End Date Christopher Yadav MD [facility] [address] [facility] [address] PCP - General Internal Medicine 07/27/23
--- OUTSIDE RECORDS SUMMARY | 2025-02-12 16:53 | XMS_ITS | Encounter Summary ---
Author Organization Healthcare Address [address] [place] [address] Care Team Providers Care Barrel Inspector Name Role Phone Christopher Yadav MD Primary Care Provider [phone] Encounter Details Date Type Department Care Team (Late st Contact Info) Description 07/27/2023 Orders Only External Location [address] [place] [address] Provider, External Social History Tobacco Use Types [...] on filedocumented in this encounter Care Teams Barrel Inspector Relationship Specialty Start Date End Date Christopher Yadav MD [address] [facility] [address] [place] [id number] PCP - General 07/11/20 documented as of this encounter
--- OUTSIDE RECORDS SUMMARY | 2025-02-12 16:53 | XMS_ITS | Referral Summary ---
Author Organization [employer] ([place], [place], [place], [place], [place]) Address [address] [place] [address] Care Team Providers Care Furniture Repair Technician Name Role Phone Christopher Yadav MD Primary Care Provider [phone] Encounters Date Type Department Care Team Description 12/26/2024 Travel 12/26/2024 2:35 PM EDT Office Visit [facility] - [address] [address] Arnol Courtney MD Prostate cancer (HCC) (Primary Dx) 12/06/2024 Travel from Last 3 Months Allergies No known [...] mg total) by mouth daily with breakfast Look-alike/S ound-alike medication. Active polyethylene glycol (MIRALAX) 17 gram/dose powder Take 17 g by mouth daily. Active Active Problems Problem Noted Date Diagnosed [...] Date Ehsan rded Speak language other than Luxembourgish at home Not on file 03/11/2023 Want [...] Description 03/27/2025 3:00 PM EST Office Visit [facility] - [address] [place] [address] Arnol Courtney MD [address] [address] Medical Devices Implanted Type Area Tungsten Refiner Device Identifier Shelf Expiration Date Model / Serial / Lot Stents-Machado ry Stents-Coron maribel Heart Head Fem Delta 36mm +0mm - [id number] Implanted:Qty : 1 on 03/21/2023 by Eric Parkinson MD at [facility] TOTAL JOINT CONSTRUCT Left: Hip EXACTECH [id number] 05/31/202736 / [id number] / Stem Fem Pf Sz9 113mm 190-31-09 - [id number] Implanted:Qty : 1 on 03/21/2023 by Eric Parkinson MD at [facility] TOTAL JOINT CONSTRUCT Left: Hip EXACTECH [id number] 10/03/2027 190 / [id number] / Liner Ntrl Altn Xle Grp6 36mm 6 - [id number] Implanted:Qty : 1 on 03/21/2023 by Eric Parkinson MD at [facility] TOTAL JOINT CONSTRUCT Left: Hip EXACTECH [id number] 03/17/2027 / [id number] / Cup Clstr-Hole Altn Pcg6 54mm 46-708-97 4 - [id number] Implanted:Qty : 1 on 03/21/2023 by Eric Parkinson MD at [facility] TOTAL JOINT CONSTRUCT Left: Hip EXACTECH [id number] 10/25/203254 / [id number] / Procedures Procedure Name Priority Date/Time Associated [...] 10.8 K/ L 12/06/2024 10:47 AM EDT [facility] RBC 3.15(L) 3.80 - 5.20 M/ L 12/06/2024 10:47 AM EDT [facility] Hemoglobin 10.4(L) 12.8 - 17.4 GM/DL 12/06/2024 10:47 AM EDT [facility] Hematocrit 32.4(L) 39.0 - 51.0 % 12/06/2024 10:47 AM EDT [facility] MCV 103(H) 81 - 101 fL 12/06/2024 10:47 AM EDT [facility] MCH 33.0 27.0 - 34.0 pg 12/06/2024 10:47 AM EDT [facility] MCHC 32.1 32.0 - 36.0 GM/DL 12/06/2024 10:47 AM EDT [facility] RDW 15.4(H) 11.5 - 14.5 % 12/06/2024 10:47 AM EDT [facility] Platelets 176 150 - 400 K/CU MM 12/06/2024 10:47 AM EDT [facility] MPV 10.2 9.4 - 12.4 fL 12/06/2024 10:47 AM EDT [facility] Nucleated Red Blood Cell 0.0 0 - 0.2 % 12/06/2024 10:47 AM EDT [facility] % Neutros 71 37 - 80 % 12/06/2024 10:47 AM EDT [facility] % Lymphs 19 10 - 50 % 12/06/2024 10:47 AM EDT [facility] % Monos 9 5 - 13 % 12/06/2024 10:47 AM EDT [facility] % Eos 1 0 - 7 % 12/06/2024 10:47 AM EDT [facility] % Baso 0 0 - 3 % 12/06/2024 10:47 AM EDT [facility] NRBC Absolute <0.01 0 - 0.012 K/ul 12/06/2024 10:47 AM EDT [facility] # Neutros 5.50 2.00 - 6.90 K/ L 12/06/2024 10:47 AM EDT [facility] # Lymphs 1.50 0.60 - 3.40 K/ L 12/06/2024 10:47 AM EDT [facility] # Monos 0.67 0.00 - 0.90 K/ L 12/06/2024 10:47 AM EDT [facility] # Eos 0.06 0.00 - 0.70 K/ L 12/06/2024 10:47 AM EDT [facility] # Baso 0.02 0.00 - 0.20 K/ L 12/06/2024 10:47 AM EDT [facility] % Imm Grans 0.30 % 12/06/2024 10:47 AM EDT [facility] # IG 0.02(H) 0.00 - 0.00 K/uL 12/06/2024 10:47 AM EDT [facility] Blood Venipuncture / Unknown 12/06/2024 10:35 AM EDT 12/06/2024 10:44 AM EDT Narrative [facility] - 12/06/2024 10:47 AM EDT When [...] MD LAB BLOOD ORDERABLES Final Res ult [facility] [address] [place] [address] * (ABNORMAL) Testosterone, Adult Male(SENDOUT) (12/06/2024 10:35 AM EDT) Testosterone by Immunoassay <3(L) 300 - 720 ng/dL 12/07/2024 10:36 PM EDT [facility] Comment: INTERPRETIVE INFORMATION: Testosterone by Immunoassay Testosterone immunoassays are both imprecise and inaccurate at low testosterone concentrations, such as those found in children and cisgender females. For these individuals, testing by mass spectrometry is recommended; refer to Testosterone (Adult Females, Children, or Individuals on Testosterone-Suppressing Hormone Therapy) ([employer] test code [id number]). Free or bioavailable testosterone measurements may provide supportive information. For individuals on testosterone hormone therapy, refer to cisgender male reference intervals. No reference intervals have been established for males younger than 14 years or for cisgender females. For a complete set of all established reference intervals, refer to [employer]td[employer]/Tests/Pub/[id number]. Performed By: [facility] [address] [place] [address] Project Landscape Architect: Cameron Javier MD, PhD CLIA Number: [id number] Blood Venipuncture / Unknown 12/06/2024 10:35 AM EDT 12/06/2024 10:44 AM EDT Xochitl Serra MD LAB BLOOD ORDERABLES Final Res ult Performing Organization Address [facility] Co de Phone Number [facility] [address] [place] [address], [facility] [phone] * PSA (Blazer, LUCIA, [place], [place], [facility]) (12/06/2024 10:35 AM EDT) Pathologist [facility] PSA Diagnostic <0.10 0.00 - 4.00 ng/mL 12/06/2024 3:02 PM EDT [facility] Comment:[place] Alinity i sarah miluminescent immunoassay was used to obtain results. Results determined by assays using different manufacturers or methods may not be comparable. Blood Venipuncture / Unknown 12/06/2024 10:35 AM EDT 12/06/2024 10:44 AM EDT Xochitl Serra MD LAB BLOOD ORDERABLES Final Res ult Performing Organization Address City/[facility]/ZIP Co de Phone Number [facility] [address] [phone] * (ABNORMAL) CMP (12/06/2024 10:35 AM EDT) Pathologist [facility] Sodium 142 136 - 145 meq/L 12/06/2024 11:25 AM EDT [facility] Potassium 4.3 3.5 - 5.1 meq/L 12/06/2024 11:25 AM EDT [facility] Chloride 102 98 - 107 meq/L 12/06/2024 11:25 AM EDT [facility] CO2 32 21 - 32 meq/L 12/06/2024 11:25 AM EDT [facility] Calcium 8.6 8.5 - 10.1 mg/dL 12/06/2024 11:25 AM EDT [facility] Glucose 157(H) 74 - 100 mg/dL 12/06/2024 11:25 AM EDT [facility] BUN 32(H) 7 - 18 mg/dL 12/06/2024 11:25 AM EDT [facility] Creatinine 2.09(H) 0.70 - 1.20 mg/dL 12/06/2024 11:25 AM EDT [facility] BUN/Creatinine 15 12/06/2024 11:25 AM EDT [facility] Albumin 3.4 3.4 - 5.0 g/dL 12/06/2024 11:25 AM EDT [facility] Alkaline Phosphatase 96 46 - 116 U/L 12/06/2024 11:25 AM EDT [facility] ALT 10(L) 12 - 78 U/L 12/06/2024 11:25 AM EDT [facility] AST 11(L) 15 - 37 U/L 12/06/2024 11:25 AM EDT [facility] Total Bilirubin 0.5 0.2 - 1.0 mg/dL 12/06/2024 11:25 AM EDT [facility] Protein, Total 6.9 6.4 - 8.2 gm/dL 12/06/2024 11:25 AM EDT [facility] Anion Gap 12 11 - 22 12/06/2024 11:25 AM EDT [facility] A/G Ratio 1.0 12/06/2024 11:25 AM EDT [facility] Globulin 3.5 g/dL 12/06/2024 11:25 AM EDT [facility] Osmolality Calc 293.3 mOsm/kg 11:25 AM EDT [facility] eGFR (mL/min/1.73m2) 30(L) >=60 mL/min/1.7 3m2 12/06/2024 11:25 AM EDT [facility] Comment:ESTIMATED GFR IS NOT ACCURATE CREATININE CLEARANCE IN PREDICTING GLOMERULAR FILTRATION RATE. ESTIMATED GFR IS NOT APPLICABLE FOR DIALYSIS PATIENTS. Blood Venipuncture / Unknown 12/06/2024 10:35 AM EDT 12/06/2024 10:44 AM EDT Xochitl Serra MD LAB BLOOD ORDERABLES Final Res ult Performing Organization Address City/[facility]/ZIP Co de Phone Number [facility] [address] [place] [address], [facility] [phone] * (ABNORMAL) Hemoglobin A1c (03/15/2023 11:20 AM EST) Hemoglobin A1C 6.5(H) 4.2 - 6.3 % 03/15/2023 12:24 PM EST [facility] Comment: Hemoglobin A1C levels are related to mean glucose during the preceding 2-3 months. Less than 7% demonstrates glycemic control in diabetic patients. Hemoglobin AlC % Suggested Diagnosis > or = 6.5 Diabetic 5.7 - 6.4 Prediabetic <5.7 Non-diabetic eAVG Glucose 139.85 mg/dL 03/15/2023 12:24 PM EST [facility] Blood Venipuncture / Unknown 03/15/2023 11:20 AM EST 03/15/2023 11:35 AM EST Eric Parkinson MD LAB BLOOD ORDERABLES Fi nal Result Performing Organization Address City/[facility]/ZIP Co de Phone Number [facility] [address] [place], [place] [id number] [place] [address] from Last 3 Months or Most Recently Relevant to Health Maintenance Insurance MEDICARE PART A B SUPP Advance Directives For more information, please contact: [phone] * Full Code (Latest Code Status on File) Date Activated Date Inactivated Comments 08/16/2023 10:48 AM 08/16/2023 7:35 PM * Full Code Date Activated Date Inactivated Comments 03/21/2023 11:25 AM 03/24/2023 3:00 PM * Full Code Date Activated Date Inactivated Comments 03/21/2023 5:18 AM 03/21/2023 11:25 AM Care Teams Furniture Repair Technician Relationship Specialty Start Date End Date Christopher Yadav MD [address] [place] [address] PCP - General General Internal Medicine 03/15/23
--- OUTSIDE RECORDS SUMMARY | 2025-02-12 16:53 | XMS_ITS | Clinical Summary ---
Author Organization [employer] ([place], [place], [place], [place], [place]) Address [address] [place] [address] Care Team Providers Care Gambling Floor Supervisor Name Role Phone Christopher Yadav MD Primary Care Provider [phone] Allergies No known active allergies Medications insulin [...] Description 12/26/2024 2:35 PM EDT Office Visit [facility] - [address] [address] Arnol Courtney MD Prostate cancer (HCC) (Primary Dx) 12/26/2024 Travel 12/06/2024 Travel from Last 3 Months Family [...] Date Ehsan rded Speak language other than Nigerien at home Not on file 03/11/2023 Want [...] Description 03/27/2025 3:00 PM EST Office Visit [facility] - [address] [place] [address] Arnol Courtney MD [address] [facility] [address] [place] [address] Health Maintenance Due Date Last [...] 12/03/2015, 03/14/2013 Medical Devices Implanted Type Area Accountant Controller Device Identifier Shelf Expiration Date Model / Serial / Lot Stents-Machado ry Stents-Coron maribel Heart Head Fem Delta 36mm +0mm - [id number] Implanted:Qty : 1 on 03/21/2023 by Eric Parkinson MD at [facility] [employer] Left: Hip EXACTECH [id number] 05/31/202736 / [id number] / Stem Fem Pf Sz9 113mm 190-31-09 - [id number] Implanted:Qty : 1 on 03/21/2023 by Eric Parkinson MD at [facility] [employer] Left: Hip EXACTECH [id number] 10/03/2027 190-31-09 / [id number] / Liner Ntrl Altn Xle Grp6 36mm 6 - [id number] Implanted:Qty : 1 on 03/21/2023 by Eric Parkinson MD at [facility] [employer] Left: Hip EXACTECH [id number] 03/17/2027 / [id number] / Cup Clstr-Hole Altn Pcg6 54mm 62-702-88 4 - [id number] Implanted:Qty : 1 on 03/21/2023 by Eric Parkinson MD at [facility] [employer] Left: Hip EXACTECH [id number] 10/25/203254 / [id number] / Procedures Procedure Name Priority Date/Time Associated [...] 10.8 K/ L 12/06/2024 10:47 AM EDT [facility] RBC 3.15(L) 3.80 - 5.20 M/ L 12/06/2024 10:47 AM EDT [facility] Hemoglobin 10.4(L) 12.8 - 17.4 GM/DL 12/06/2024 10:47 AM EDT [facility] Hematocrit 32.4(L) 39.0 - 51.0 % 12/06/2024 10:47 AM EDT [facility] MCV 103(H) 81 - 101 fL 12/06/2024 10:47 AM EDT [facility] MCH 33.0 27.0 - 34.0 pg 12/06/2024 10:47 AM EDT [facility] MCHC 32.1 32.0 - 36.0 GM/DL 12/06/2024 10:47 AM EDT [facility] RDW 15.4(H) 11.5 - 14.5 % 12/06/2024 10:47 AM EDT [facility] Platelets 176 150 - 400 K/CU MM 12/06/2024 10:47 AM EDT [facility] MPV 10.2 9.4 - 12.4 fL 12/06/2024 10:47 AM EDT [facility] Nucleated Red Blood Cell 0.0 0 - 0.2 % 12/06/2024 10:47 AM EDT [facility] % Neutros 71 37 - 80 % 12/06/2024 10:47 AM EDT [facility] % Lymphs 19 10 - 50 % 12/06/2024 10:47 AM EDT [facility] % Monos 9 5 - 13 % 12/06/2024 10:47 AM EDT [facility] % Eos 1 0 - 7 % 12/06/2024 10:47 AM EDT [facility] % Baso 0 0 - 3 % 12/06/2024 10:47 AM EDT [facility] NRBC Absolute <0.01 0 - 0.012 K/ul 12/06/2024 10:47 AM EDT [facility] # Neutros 5.50 2.00 - 6.90 K/ L 12/06/2024 10:47 AM EDT [facility] # Lymphs 1.50 0.60 - 3.40 K/ L 12/06/2024 10:47 AM EDT [facility] # Monos 0.67 0.00 - 0.90 K/ L 12/06/2024 10:47 AM EDT [facility] # Eos 0.06 0.00 - 0.70 K/ L 12/06/2024 10:47 AM EDT [facility] # Baso 0.02 0.00 - 0.20 K/ L 12/06/2024 10:47 AM EDT [facility] % Imm Grans 0.30 % 12/06/2024 10:47 AM EDT [facility] # IG 0.02(H) 0.00 - 0.00 K/uL 12/06/2024 10:47 AM EDT [facility] Blood Venipuncture / Unknown 12/06/2024 10:35 AM EDT 12/06/2024 10:44 AM EDT Narrative [facility] - 12/06/2024 10:47 AM EDT [...] Flag noted Atypical Lymph flag noted us oXchitl Serra MD LAB BLOOD ORDERABLES Final Res ult [facility] [address] [place] [address] * (ABNORMAL) Testosterone, Adult Male(SENDOUT) (12/06/2024 10:35 AM EDT) Testosterone by Immunoassay <3(L) 300 - 720 ng/dL 12/07/2024 10:36 PM EDT [facility] Comment: INTERPRETIVE INFORMATION: Testosterone by Immunoassay Testosterone immunoassays are both imprecise and inaccurate at low testosterone concentrations, such as those found in children and cisgender females. For these individuals, testing by mass spectrometry is recommended; refer to Testosterone (Adult Females, Children, or Individuals on Testosterone-Suppressing Hormone Therapy) (TellMi test code [id number]). Free or bioavailable testosterone measurements may provide supportive information. For individuals on testosterone hormone therapy, refer to cisgender male reference intervals. No reference intervals have been established for males younger than 14 years or for cisgender females. For a complete set of all established reference intervals, refer to [employer]/Tests/Pub/[id number]. Performed By: [facility] [address] [place] [address] Medical Device Sales: Cameron Javier MD, PhD CLIA Number: [id number] Blood Venipuncture / Unknown 12/06/2024 10:35 AM EDT 12/06/2024 10:44 AM EDT Xochitl Serra MD LAB BLOOD ORDERABLES Final Res ult Performing Organization Address City/[facility]/ZIP Co de Phone Number [facility] [address] [place], [place] [id number], [facility] [phone] * PSA (Blazer, LUCIA, Conner, Scott, [facility]) (12/06/2024 10:35 AM EDT) PSA Diagnostic <0.10 0.00 - 4.00 ng/mL 12/06/2024 3:02 PM EDT [facility] Comment:[place] Alinity i sarah miluminescent immunoassay was used to obtain results. Results determined by assays using different manufacturers or methods may not be comparable. Blood Venipuncture / Unknown 12/06/2024 10:35 AM EDT 12/06/2024 10:44 AM EDT Xochitl Serra MD LAB BLOOD ORDERABLES Final Res ult [facility] [address] [place] [address], [facility] [phone] * (ABNORMAL) CMP (12/06/2024 10:35 AM EDT) Sodium 142 136 - 145 meq/L 12/06/2024 11:25 AM EDT [facility] Potassium 4.3 3.5 - 5.1 meq/L 12/06/2024 11:25 AM EDT [facility] Chloride 102 98 - 107 meq/L 12/06/2024 11:25 AM EDT [facility] CO2 32 21 - 32 meq/L 12/06/2024 11:25 AM EDT [facility] Calcium 8.6 8.5 - 10.1 mg/dL 12/06/2024 11:25 AM EDT [facility] Glucose 157(H) 74 - 100 mg/dL 12/06/2024 11:25 AM EDT [facility] BUN 32(H) 7 - 18 mg/dL 12/06/2024 11:25 AM EDT [facility] Creatinine 2.09(H) 0.70 - 1.20 mg/dL 12/06/2024 11:25 AM EDT [facility] BUN/Creatinine 15 12/06/2024 11:25 AM EDT [facility] Albumin 3.4 3.4 - 5.0 g/dL 12/06/2024 11:25 AM EDT [facility] Alkaline Phosphatase 96 46 - 116 U/L 12/06/2024 11:25 AM EDT [facility] ALT 10(L) 12 - 78 U/L 12/06/2024 11:25 AM EDT [facility] AST 11(L) 15 - 37 U/L 12/06/2024 11:25 AM EDT [facility] Total Bilirubin 0.5 0.2 - 1.0 mg/dL 12/06/2024 11:25 AM EDT [facility] Protein, Total 6.9 6.4 - 8.2 gm/dL 12/06/2024 11:25 AM EDT [facility] Anion Gap 12 11 - 22 12/06/2024 11:25 AM EDT [facility] A/G Ratio 1.0 12/06/2024 11:25 AM EDT [facility] Globulin 3.5 g/dL 12/06/2024 11:25 AM EDT [facility] Osmolality Calc 293.3 mOsm/kg 11:25 AM EDT [facility] eGFR (mL/min/1.73m2) 30(L) >=60 mL/min/1.7 3m2 12/06/2024 11:25 AM EDT [facility] Comment:ESTIMATED GFR IS NOT ACCURATE CREATININE CLEARANCE IN PREDICTING GLOMERULAR FILTRATION RATE. ESTIMATED GFR IS NOT APPLICABLE FOR DIALYSIS PATIENTS. Blood Venipuncture / Unknown 12/06/2024 10:35 AM EDT 12/06/2024 10:44 AM EDT us Xochitl Serra MD LAB BLOOD ORDERABLES Final Res ult Performing Organization Address [facility] Co de Phone Number [facility] [address] [phone] * (ABNORMAL) Hemoglobin A1c (03/15/2023 11:20 AM [...] MD LAB BLOOD ORDERABLES Fi nal Result [facility] [address] [place], [place] [id number] [place] [address] from Last 3 Months or Most Recently Relevant to Health Maintenance Insurance [place] [address] [place] [address] SUPP Advance Directives For more information, please contact: [phone] * Full Code (Latest Code Status on File) Date Activated Date Inactivated Comments 08/16/2023 10:48 AM 08/16/2023 7:35 PM * Full Code Date Activated Date Inactivated Comments 03/21/2023 11:25 AM 03/24/2023 3:00 PM * Full Code Date Activated Date Inactivated Comments 03/21/2023 5:18 AM 03/21/2023 11:25 AM Care Teams Gambling Floor Supervisor Relationship Specialty Start Date End Date Christopher Yadav MD [address] [place] [address] [place] [phone] PCP - General General Internal Medicine 03/15/23
--- OUTSIDE RECORDS SUMMARY | 2025-02-12 16:53 | XMS_ITS | Encounter Summary ---
Author Organization Healthcare Address [address] [place] [address] Care Team Providers Care Fire Extinguisher Sprinkler Inspector Name Role Phone Christopher Yadav MD Primary Care Provider [phone] Encounter Details Date Type Department Care Team (Late st Contact Info) Description 07/27/2023 Orders Only External Location [address] [place] [address] Provider, External Social History Tobacco Use Types [...] on filedocumented in this encounter Care Teams Fire Extinguisher Sprinkler Inspector Relationship Specialty Start Date End Date Christopher Yadav MD [address] [facility] [address] [place] [phone] (Work) PCP - General 07/11/20 documented as of this encounter
--- OUTSIDE RECORDS SUMMARY | 2025-02-12 16:53 | XMS_ITS | Encounter Summary ---
Author Organization [facility] yste Address [address] [place] [address] Care Team Providers Care Electronic Maintenance Supervisor Name Role Phone Christopher Yadav MD Primary Care Provider Reason for Visit * Reason Onset Date Comments MIERS-GLENDA 2 SENSORS 12/04/2024 Encounter Details Date Type Department Care Team (Late st Contact Info) Description 12/04/2024 Telephone [facility] ENDOCR[facility]OLOGY [address] [address] Daniel Vasquez MD [address] [address] MIERS-GLENDA 2 SENSORS Social History Tobacco Use Types Packs/Day Years Used Date Smoking Tobacco: Former Smokeless Tobacco: Never Comments:quit 1980 Alcohol Use Standard Drinks/Week Comments No 0 (1 standard drink = 0.6 oz pur e alcohol) [facility] Utilities Answer Date Recorded In the past 12 months has [employer], [employer], oil, or water [employer] threatened to shut off services in your [...] GED or equivalent No 10/30/2024 Preferred Language Stateless 10/30/2024 Sex and Gender Information Value Date [...] to patient: Self Best call back number: [phone] Patient is needing: PT RETURNING PATRICIA'S PHONE [...] to patient: Self Best call back number: [phone] Patient is needing: PT CALLING TO SPEAK [...] Info) Description 03/19/2025 1:15 PM EST Appointment [facility] [address] [place] [address] 06/19/2025 8:45 AM EDT Office Visit [facility] [address] [facility] [address] [place] [address] Daniel Vasquez MD [address] [facility] [address] [place] [address] documented as of this encounter Visit Diagnoses Not on filedocumented in this encounter Care Teams Electronic Maintenance Supervisor Relationship Specialty Start Date End Date Christopher Yadav MD [address] [facility] [address] [place] [address] PCP - General Internal Medicine 07/27/23 documented as of this encounter
--- OUTSIDE RECORDS SUMMARY | 2025-02-12 16:53 | XMS_ITS | Encounter Summary ---
Author Organization [employer] ([place], [place], [place], [place], [place]) Address [address] [place] [address] Care Team Providers Care Regional Administrative Assistant Name Role Phone Christopher Yadav MD Primary Care Provider [phone] Encounter Details Date Type Department Care Team [...] Date Ehsan rded Speak language other than Rwandan at home Not on file 03/11/2023 Want [...] Description 03/27/2025 3:00 PM EST Office Visit [facility] - [address] [place] [address] Arnol Courtney MD [address] [facility] [address] [place] [address] documented as of this encounter Visit Diagnoses Not on filedocumented in this encounter Care Teams Regional Administrative Assistant Relationship Specialty Start Date End Date Christopher Yadav MD [address] [place] [address] [place] [address] PCP - General General Internal Medicine 03/15/23 documented as of this encounter
--- OUTSIDE RECORDS SUMMARY | 2025-02-12 16:54 | XMS_ITS | Clinical Summary ---
Author Organization Healthcare Address [address] [place] [address] Care Team Providers Care Artist Relationship Manager Name Role Phone Christopher Yadav MD Primary Care Provider [phone] Allergies No known active allergies Medications allopurinol (Zyloprim) 100 MG tabletIndications :Hyperuricemia Take 1 tablet by mouth 2 times a day. 7 Active calcitriol (Rocaltrol) 0.25 MCG capsuleIndication s:Hypocalcemia Take 1 capsule by mouth 3 times a week. 4 Active clopidogrel (Plavix) 75 MG tabletIndications :Acute Coronary Syndrome Take 1 tablet by mouth nightly. 7 Active cyanocobalamin 1000 MCG tabletIndications :Vitamin B12 Deficiency Take 1 tablet by mouth 1 time each day. Active furosemide (Lasix) 20 MG tabletIndications :Edema Take 1 tablet by mouth as needed (swelling). 3 Active gabapentin (Neurontin) 300 MG capsuleIndication s:Neuropathic Pain 1 capsule in the morning and 2 capsules at night 9 Active hydrALAZINE (Apresoline) 10 MG tabletIndications :Hypertension Take 1 tablet by mouth twice a day. 4 Active insulin NPH-insulin regular (Novolin 70-30,Humulin 70-30) (70-30) 100 UNIT/ML injection vialIndications:T ype 2 Diabetes Mellitus Inject 15 Units under the skin 2 times a day before meals. 7 Active polyethylene glycol (Miralax) 17 g packetIndications :Constipation Take 17 g by mouth 1 time each day. Active simethicone (Mylicon,Gas-X) 125 MG capsuleIndication s:Flatulence Take 1 capsule by mouth nightly. 9 Active simvastatin (Zocor) 40 MG tabletIndications :Hyperlipidemia Take 1 tablet (40 mg) by mouth every night. 7 Active tamsulosin (Flomax) 0.4 MG 24 hr capsuleIndication s:Benign Prostatic Hypertrophy 4 Active apixaban (Eliquis) 2.5 MG tabletIndications :Atrial Fibrillation Take 1 tablet by mouth 2 times a day. Active carvedilol (Coreg) 3.125 MG tabletIndications :Hypertension 1 tablet. Patient takes only if blood pressure is above 120 Active predniSONE (Deltasone) 5 MG tabletIndications :Malignant Neoplasm of Prostate Take 1 tablet by mouth daily. Active empagliflozin (Jardiance) 10 MGIndications:Lef t Systolic Heart Failure Take 1 tablet by mouth daily. Active pantoprazole (Protonix) 40 MG EC tabletIndications :Heartburn Take 1 tablet by mouth daily before breakfast. Do not crush, chew, or split. Active pancrelipase, Qzh-Lart-Vlxd, (Creon) 89277-570993 units capsule delayed-release particles capsuleIndication s:Pancreatic Insufficiency Take 1 capsule by mouth 3 times a day with meals. Active escitalopram (Lexapro) 10 MG tabletIndications :Major Depressive Disorder Take 1 tablet by mouth daily. 30 tablet 5 02/16/20 25 Active escitalopram (Lexapro) 5 MG tablet Take 1 tablet by mouth daily. 01/17/20 25 Discontin ued(Stop Taking at Discharge ) Active Problems Problem Noted Date Diagnosed Date Unspecified mood (affective) disorder 01/12/2025 Obesity (BMI 35.0-39.9 without comorbidity) 08/28 Encounters Date Type Department Care Team Description 02/05/2025 Telephone [facility] [address] [place] [address] Charlene Rodriguez 01/12/2025 Plan of Care Documentation [facility] [address] [place] [address] 01/11/2025 10:31 PM EST - 01/16/2025 1:40 PM EST Hospital Encounter [facility] [address] [place] [address] Davina Kang MD McClanahan, Sarah M, Depressive disorder (Primary Dx); Suicidal ideation Discharge Disposition: Home or Self Care 01/11/2025 Travel from Last 3 Months Immunizations Immunization Administration Dates Next Due DTaP 02/29/2012 Influenza, High-dose, Split Virus, Trivalent, Injectable, preservative free 01/09/2024 Influenza, high-dose, quadrivalent 02/03/2023 Influenza, seasonal, injectable 12/03/19 16,02/29/2012,11/16/2011,12/29 Pneumococcal Conjugate PCV 13 03/14/2013 Pneumococcal Polysaccharide PPV23 12/16/2016,06/2015 Pneumococcal, Unspecified 02/28/2002 TD (adult), 2 Lf tetanus tox oid, preservative free, adsorbed 01/16/1998 Family History Medical History Relation Name Comments [...] often do you attend chur ch or orthodoxy services? Never 01/12/2025 Do you belong to any clubs o r organizations such as taoism groups, unions, fraternal or athletic groups, or [...] more drinks on one occasion? Never 01/12/2025 [facility] - Occupational Stress Questionnaire Answer Date [...] any time in the past 12 m [facility], were you homeless or living in a [place] health care facility (including now)? No 01/12/2025 [facility] Utilities Answer Date Recorded In the [...] F) 01/16/2025 6:10 AM EST Respiratory Rate 16 04/11/2024 10:19 AM EST Oxygen Saturation 96% 01/16/2025 6:10 AM EST Inhaled Oxygen Concentration - - Weight 111 kg (245 lb) 01/14/2025 5:32 AM EST Height 182.9 cm (6') 01/12/2025 9:00 PM EST Body Mass Index 33.23 01/12/2025 9:00 PM EST Plan of Treatment Health Maintenance Due Date Last Done Comments [facility]-Medicare Annual Wellness (AWV) 1940 [facility]-Infant/Child/Adol SDOH Screenings 1940 Diabetes: Dental Exam 1948 [facility]- SDOH Screenings 1956 [facility]-Adult SDOH Screenings 1956 [facility]-Zoster Vaccines (1 of 2) 1957 [facility]-RSV Vaccine: 60+ Years or (1 - 1-dose 75+ series) 2013 [facility]-DTaP,Tdap,and Td Vaccines (2 - Tdap) 02/28/2022 02/29/2012, 01/16/1998 TEN-HGLXI-21 Vaccine ( season) 2024 02/03/2023, 12/22/2021, 06/25/2021, Additional history exists [facility]-Influenza Vaccine (#1) 10/29/202401/08, 02/03/2023, 12/03/2015, Additional history exists [facility]-Diabetes: Hemoglobin A1C 03/20/2025 12/19/2024, 05/18/2024, 11/14/2023, Additional history exists [facility]-Depression Screening 01/11/2026 01/11/2025, 12/29 [facility]-Pneumococcal Vaccine: 50+ Years Completed 12/16/2016, 12/03/2015, 03/14/2013, Additional history exists [facility]-Obesity Intervention Completed 025, 04/11/2024, 01/25/2024, Additional history exists HPV Vaccines (No Doses Required) Completed [facility]-HIB Vaccines Aged Out No longer e [...] this topic Medical Devices Implanted Type Area Civil Cad Tech Device Identifier Shelf Expiration Date Model / Serial / Lot Hip Hip Left: Hip Procedures Procedure Name Priority Date/Time Associated Diagnosis [...] UNSOLICITED RESULTS Routine 01/13/2025 8:02 AM EST TSH REFLEX FT4 Routine 01/13/2025 5:13 AM EST LIPID PROFILE, PLASMA Routine 01/13/2025 5:13 AM EST PHOSPHORUS, PLASMA Routine 01/13/2025 5: 13 AM EST COMPREHENSIVE METABOLIC PANEL, PLASMA Routine 01/13/2025 5:13 AM EST CBC WITH AUTO DIFFERENTIAL Routine 01/13/2025 5:13 AM EST HIV 1/2 ANTIBODY/ANTIGEN SCREEN WITH REFLEX TO HIV I/II DIFFERENTIATION STAT 01/13/2025 5:13 AM EST HIV 1/2 ANTIBODY/ANTIGEN SCREEN W/REFLEX TO HIV 1/2 ANTIBODY DIFFERENTIATION STAT 01/13/2025 5:13 AM EST HEPATITIS C ANTIBODY WITH REFLEX TO HCV QUANT PCR - EMPATH STAT 01/13/2025 5:13 AM EST HEPATITIS B SURFACE ANTIGEN - EMPATH STAT 01/13/2025 5:13 AM EST POCT GLUCOSE METER UNSOLICITED RESULTS Routine 01/13/2025 3:08 AM EST POCT GLUCOSE METER UNSOLICITED RESULTS Routine 01/12/2025 7:49 PM EST ECG ADULT Routine 01/12/2025 6:23 PM EST POCT GLUCOSE METER UNSOLICITED RESULTS Routine 01/12/2025 4:39 PM EST POCT GLUCOSE Routine 01/12/2025 8:17 AM EST from Last 3 Months Results * (ABNORMAL) POCT glucose meter (01/16/2025 11:27 AM EST) Only the most recent of18 resultswithin the time period is included. POCT Glucose 155(H) 74 - 99 mg/dL 01/16/2025 11:28 AM EST [facility] Comment:Accuracy of a [...] for testing. Comment 01/16/2025 11:28 AM EST [facility] Tobacco Prizer ID Ness Barber [id number] 11:28 AM EST [facility] Device ID [id number] 01/16/2025 11:28 AM EST [facility] Specimen Type POC Capillary 01/16/2025 11:28 AM EST [facility] Blood Capillary blood specimen / Unknown 01/16/2025 11:27 AM EST 01/16/2025 11:28 AM EST us Davina Nicholas DO LAB POINT OF CARE TEST DOCKED DEVICE UNSOLICITED RESULTS Final Result [facility] [address] [place] [address] * Hepatitis B Surface Antigen - Empath (01/13/2025 5:13 AM EST) Pathologist [facility] Hepatitis B Surf Antigen Negative Negative 01/13/2025 9:[address] [facility] Blood Venous blood specimen / Unknown Venipuncture / Unknown 01/13/2025 5:13 AM EST 01/13/2025 5:37 AM EST us Davina Kang MD LAB BLOOD ORDERABLES Final Resul t Performing Organization Address City/[facility] [address]/ZIP Co de Phone Number [facility] [address] [place] [address] * Hepatitis C Antibody with Reflex to HCV Quant PCR - Empath (01/13/2025 5:13 AM EST) Hepatitis C Antibody Negative Negative 01/13/2025 6:59 AM EST [facility] Blood Venous blood specimen / Unknown Venipuncture / Unknown 01/13/2025 5:13 AM EST 01/13/2025 5:37 AM EST us Davina Kang MD LAB BLOOD ORDERABLES Final Resul t Performing Organization Address City/[facility] [address]/[facility] Co de Phone Number [facility] [address] [place] [address] * TSH Reflex FT4 (01/13/2025 5:13 AM EST) Pathologist [facility] Thyroid Stimulating Hormone, Plasma 3.08 0.40 - 4.20 uIU/mL 01/13/2025 7:02 AM EST [facility] Blood Venous blood specimen / Unknown Venipuncture / Unknown 01/13/2025 5:13 AM EST 01/13/2025 5:37 AM EST us Davina Kang MD LAB BLOOD ORDERABLES Final Resul t Performing Organization Address City/[facility] [address]/[facility] Co de Phone Number [facility] [address] [place] [address] * HIV 1 & 2 Antibody/Antigen Screen (01/13/2025 5:13 AM EST) Pathologist [facility] HIV 1 & 2 Antibody/Antigen Screen Non Reactive Non Reactive 01/13/2025 7:06 AM EST [facility] Comment:Screening for HIV 1 & 2 antibodies, and P24 antigen is NONREACTIVE. No confirmatory testing is required. Blood Venous blood specimen / Unknown Venipuncture / Unknown 01/13/2025 5:13 AM EST 01/13/2025 5:37 AM EST us Vandana BUTCHER LAB BLOOD ORDERABLES Final Re sult [facility] [address] [place] [address] * (ABNORMAL) CBC and differential (01/13/2025 5:13 AM EST) WBC Count 6.68 3.70 - 10.30 10*3/uL LAB HEMATOLOGY METHOD 01/13/2025 5:41 AM EST [facility] RBC Count 3.21(L) 4.60 - 6.10 10*6/uL LAB HEMATOLOGY METHOD 01/13/2025 5:41 AM EST [facility] HGB 10.2(L) 13.7 - 17.5 g/dL LAB HEMATOLOGY METHOD 01/13/2025 5:41 AM EST [facility] HCT 31.8(L) 40.0 - 51.0 % LAB HEMATOLOGY METHOD 01/13/2025 5:41 AM EST [facility] Platelet Count 177 155 - 369 10*3/uL LAB HEMATOLOGY METHOD 01/13/2025 5:41 AM EST [facility] MCV 99(H) 79 - 98 fL LAB HEMATOLOGY METHOD 01/13/2025 5:41 AM EST [facility] MCH 31.8 26.0 - 32.0 pg LAB HEMATOLOGY METHOD 01/13/2025 5:41 AM EST [facility] MCHC 32.1 30.7 - 35.5 g/dL LAB HEMATOLOGY METHOD 01/13/2025 5:41 AM EST [facility] RDW 16.0(H) 11.5 - 14.5 % LAB HEMATOLOGY METHOD 01/13/2025 5:41 AM EST [facility] MPV 10.5 8.8 - 12.5 fL LAB HEMATOLOGY METHOD 01/13/2025 5:41 AM EST [facility] nRBC 0.0 <=0.0 per 100 WBCs LAB HEMATOLOGY METHOD 01/13/2025 5:41 AM EST [facility] Differential Type Automated LAB HEMATOLOGY METHOD 01/13/2025 5:41 AM EST [facility] Neutrophils % 56 % LAB HEMATOLOGY METHOD 01/13/2025 5:41 AM EST [facility] Lymphocytes % 33 % LAB HEMATOLOGY METHOD 01/13/2025 5:41 AM EST [facility] Monocytes % 8 % LAB HEMATOLOGY METHOD 01/13/2025 5:41 AM EST [facility] Eosinophils % 1 % LAB HEMATOLOGY METHOD 01/13/2025 5:41 AM EST [facility] Basophils % 1 % LAB HEMATOLOGY METHOD 01/13/2025 5:41 AM EST [facility] Immature Granulocytes % 1 % LAB HEMATOLOGY METHOD 01/13/2025 5:41 AM EST [facility] Neutrophils Absolute 3.81 1.60 - 6.10 10*3/uL LAB HEMATOLOGY METHOD 01/13/2025 5:41 AM EST [facility] Lymphocytes Absolute 2.23 1.20 - 3.90 10*3/uL LAB HEMATOLOGY METHOD 01/13/2025 5:41 AM EST [facility] Monocytes Absolute 0.52 0.30 - 0.90 10*3/uL LAB HEMATOLOGY METHOD 01/13/2025 5:41 AM EST [facility] Eosinophils Absolute 0.04 0.00 - 0.50 10*3/uL LAB HEMATOLOGY METHOD 01/13/2025 5:41 AM EST [facility] Basophils Absolute 0.04 0.00 - 0.10 10*3/uL LAB HEMATOLOGY METHOD 01/13/2025 5:41 AM EST [facility] Immature Granulocytes Absolute 0.04 0.00 - 0.06 10*3/uL LAB HEMATOLOGY METHOD 01/13/2025 5:41 AM EST [facility] Blood Venous blood specimen / Unknown Venipuncture / Unknown 01/13/2025 5:13 AM EST 01/13/2025 5:41 AM EST Narrative [facility] - 01/13/2025 5:41 AM EST Therapeutic decision making should be based on absolute values, rather than percentages. us Davina Kang MD LAB BLOOD ORDERABLES Final Resul t [facility] [address] [place] [id number] * Phosphorus (01/13/2025 5:13 AM EST) [facility] Phosphorus, Plasma 4.3 2.5 - 4.5 mg/dL 01/13/2025 7:02 AM EST [facility] Blood Venous blood specimen / Unknown Venipuncture / Unknown 01/13/2025 5:13 AM EST 01/13/2025 5:37 AM EST us Davina Kang MD LAB BLOOD ORDERABLES Final Resul t [facility] [address] [place] [address] * (ABNORMAL) Lipid panel (01/13/2025 5:13 AM EST) Cholesterol, Plasma 85 <200 mg/dL 01/13/2025 7:02 AM EST [facility] Comment: Cholesterol Reference Range (age >17 years): Desirable <200 mg/dL Borderline 200 to 239 mg/dL Undesirable >239 mg/dL HDL 35(L) >=40 mg/dL 01/13/2025 7:02 AM EST [facility] Comment: HDL Cholesterol Reference Ranges (age >17 years): Female, acceptable > or = 50 mg/dL Male, acceptable > or = 40 mg/dL Triglycerides, Plasma 92 <150 mg/dL 01/13/2025 7:02 AM EST [facility] Comment: Triglyceride Reference Range (age >17 years): Desirable: <150 mg/dL Borderline high: 150 to 199 mg/dL High: 200 to 499 mg/dL Very high: >499 mg/dL Increased risk of pancreatitis: >1000 mg/dL Cholesterol/HDL Ratio 2 01/13/2025 7:02 AM EST [facility] LDL, Calculated 32 <100 mg/dL 7:02 AM EST [facility] Comment: LDL Cholesterol Reference Range (age [...] 12 hours? Unknown 01/13/2025 7:02 AM EST [facility] Blood Venous blood specimen / Unknown Venipuncture / Unknown 01/13/2025 5:13 AM EST 01/13/2025 5:37 AM EST us Davina Kang MD LAB BLOOD ORDERABLES Final Resul t [facility] [address] [place] [address] * (ABNORMAL) Comprehensive metabolic panel (01/13/2025 5:13 AM EST) Glucose, Plasma 143(H) 74 - 99 mg/dL 01/13/2025 7:02 AM EST [facility] BUN, Plasma 25(H) 8 - 23 mg/dL 01/13/2025 7:02 AM [facility] Creatinine, Plasma 1.41(H) 0.70 - 1.20 mg/dL 01/13/2025 7:02 AM [facility] BUN/Creatinine Ratio 18 01/13/2025 7:02 AM [facility] Sodium, Plasma 139 136 - 145 mmol/L 01/13/2025 7:02 AM [facility] Potassium, Plasma 4.0 3.6 - 4.9 mmol/L 01/13/2025 7:02 AM [facility] Chloride, Plasma 103 97 - 107 mmol/L 01/13/2025 7:02 AM [facility] CO2, Plasma 30(H) 22 - 29 mmol/L 01/13/2025 7:02 AM [facility] Anion Gap 6 6 - 16 mmol/L 01/13/2025 7:02 AM [facility] Total Calcium, Plasma 9.0 8.9 - 10.2 mg/dL 01/13/2025 7:02 AM [facility] Total Protein 6.0(L) 6.3 - 7.9 g/dL 01/13/2025 7:02 AM [facility] Albumin, Plasma 3.7 3.5 - 5.2 g/dL 01/13/2025 7:02 AM [facility] AST, Plasma 13 10 - 50 U/L 01/13/2025 7:02 AM EST [facility] ALT, Plasma 6(L) 10 - 50 U/L 01/13/2025 7:02 AM [facility] Alkaline Phosphatase, Plasma 72 40 - 115 U/L 01/13/2025 7:02 AM EST [facility] Total Bilirubin, Plasma 0.5 0.2 - 1.1 mg/dL 01/13/2025 7:02 AM EST [facility] eGFRcr 48.5 mL/min/1.7 3m*2 01/13/2025 7:02 AM EST [facility] Comment:Reported eGFRcr in m L/min/1.73m2 is based the CKD-EPI 2020 equation that does not use a race coefficient. Blood Venous blood specimen / Unknown Venipuncture / Unknown 01/13/2025 5:13 AM EST 01/13/2025 5:37 AM EST Davina Kang MD LAB BLOOD ORDERABLES Final Resul t [facility] [address] [place] [address] * ECG Adult (01/12/2025 6:23 PM EST) EKG DIAGNOSIS CLASS Abnormal MUSE ECG Ventricular Rate 66 BPM MUSE ECG QRSD Interval 96 ms MUSE ECG QT Interval 414 ms MUSE ECG QTC Interval 434 ms MUSE ECG R Arnold 38 degrees MUSE ECG T Wave Arnold 94 degrees MUSE ECG Diagnosis Atrial fibrillation with premature ventricular or aberrantly conducted complexes MUSE ECG Diagnosis Indeterminate axis MUSE ECG Diagnosis Abnormal ECG MUSE ECG Diagnosis MUSE ECG Diagnosis Confirmed by Osmin Valerio ([id number]) on 01/13/2025 5:12:51 PM MUSE ECG 01/12/2025 6:23 PM EST 01/13/2025 5:12 PM EST Davina Kang MD ECG ORDERABLES Final Result MUSE ECG * (ABNORMAL) POCT Glucose - Before Meals and Bedtime (01/12/2025 8:17 AM EST) POCT Glucose 152(A) 74 - 99 mg/dL [facility] Test Strip Lot Number [id number] [facility] Test Strip Expiration [id number] [facility] Blood Venous blood specimen / Unknown 01/12/2025 8:17 AM EST us Davina Kang MD POINT OF CARE TEST ENTER/EDIT OR DERABLES Final Result [facility] [address] [place] [address] from Last 3 Months Insurance MEDICARE [facility] Advance Directives Documents on File Type Date Recorded Patient Therapist Speech Expl anation Advance Directives and Livin g Will 10/17/2024 11:31 AM * Full Code (Latest Code Status on File) Date Activated Date Inactivated Comments 01/12/2025 8:03 AM 01/16/2025 5:25 PM Question Answer Comments I have reviewed the capacity from the link above and, if needed, have updated to appropriate status: Yes Care Teams Artist Relationship Manager Relationship Specialty Start Date End Date Christopher Yadav MD [address] [facility] [address] [place] [address] PCP - General 07/11/20
--- OUTSIDE RECORDS SUMMARY | 2025-02-12 16:54 | XMS_ITS | Encounter Summary ---
Author Organization [employer] ([place], [place], [place], [place], [place]) Address [address] [place] [address] Care Team Providers Care Housekeeper Home Name Role Phone Christopher Yadav MD Primary Care Provider [phone] Encounter Details Date Type Department Care Team (Late st Contact Info) Description 08/04/2023 Surgery Prep [facility] Urology - [address] [address] Samuel Mata MD [address] [address] Elevated PSA (Primary Dx) Social [...] Date Ehsan rded Speak language other than Romanian at home Not on file 03/11/2023 Want [...] Description 03/27/2025 3:00 PM EST Office Visit [facility] - [address] [place] [address] Arnol Courtney MD [address] [facility] [address] [place] [address] documented as of this encounter Visit Diagnoses Diagnosis Elevated PSA- Primary Elevated prostate specific antigen (PSA) documented in this encounter Care Teams Housekeeper Home Relationship Specialty Start Date End Date Christopher Yadav MD [address] [place] [facility] [address] [place] [address] PCP - General General Internal Medicine 03/15/23 documented as of this encounter
--- OUTSIDE RECORDS SUMMARY | 2025-02-12 16:54 | XMS_ITS ---
Laboratory report Created on: January 29, 2025 TYLER PUCKETT : 1940 Sex: Male Author Organization Unknown PROBLEMS Problems List Code Description RESULTS Laboratory Orders Date Order Code Test 2023-12-28 [id number] HCV ANTIBODY RFX TO QUANT PCR Laboratory Results Date LOINC Test Value Unit Reference Range Interpre tation 2023-12-28 [id number] HCV AB NR NON REACTIVE
--- OUTSIDE RECORDS SUMMARY | 2025-02-12 16:54 | XMS_ITS | Encounter Summary ---
Author Organization [facility] Address [address] [place] [address] Care Team Providers Care Tariff Compiler Name Role Phone Christopher Yadav MD Primary Care Provider [phone] Encounter Details Date Type Department Care Team (Latest Contact Info) Description 02/08/2025 Travel Social History Tobacco Use Types Packs/Day Years Used Date Smoking Tobacco: Former Smokeless Tobacco: Never Comments:quit 1980 Alcohol Use Standard Drinks/Week Comments No 0 (1 standard drink = 0.6 oz pur e alcohol) [facility] Utilities Answer Date Recorded In the past 12 months has [employer] electric, gas, oil, or water company threatened [...] GED or equivalent No 10/30/2024 Preferred Language South Korean 10/30/2024 Sex and Gender Information Value Date Recorded Sex Assigned at Not on file Legal Sex Male 1:45 PM EDT Gender Identity Not on file Sexual Orientation Not on file documented as of this encounter Plan of Treatment Upcoming Encounters Date Type Department Care Team (Late st Contact Info) Description 03/19/2025 1:15 PM EST Appointment [facility] [address] [place] [address] 06/19/2025 8:45 AM EDT Office Visit [facility] [address] [facility] [address] [place] [id number] Daniel Vasquez MD [address] [facility] [address] [place] [address] documented as of this encounter Visit Diagnoses Not on filedocumented in this encounter Care Teams Tariff Compiler Relationship Specialty Start Date End Date Christopher Yadav MD [address] [facility] [address] [facility] [address] [place] [address] PCP - General Internal Medicine 07/27/23 documented as of this encounter
--- OUTSIDE RECORDS SUMMARY | 2025-02-12 16:54 | XMS_ITS | Encounter Summary ---
Author Organization Healthcare Address [address] [place] [address] Care Team Providers Care Database Security Expert Name Role Phone Christopher Yadav MD Primary Care Provider [phone] Encounter Details Date Type Department Care Team (Late st Contact Info) Description 02/05/2025 Telephone [facility] [address] [place] [address] Charlene Rodriguez Social History Tobacco Use Types Packs/Day Years [...] often do you attend chur ch or mandaeism services? Never 01/12/2025 Do you belong to any clubs o r organizations such as synagogue groups, unions, fraternal or athletic groups, or [...] more drinks on one occasion? Never 01/12/2025 [facility] - Occupational Stress Questionnaire Answer Date Recorded [...] any time in the past 12 m [facility], were you homeless or living in a senior care (including now)? No 01/12/2025 [facility] Utilities Answer Date [...] encounter Miscellaneous Notes * Telephone Encounter - Charlene Rodriguez - 02/05/2025 10:47 AM EST Behavioral Health Call Back Note Best contact phone number and person contacted: [phone] Discharge date: 01/16/25 Date of call back: 02/05/25 Start time: 1047 End time: 1047 Call Questions: How are you doing since discharge: Have you been able to obtain your prescription medication and take your medications as ordered? Do you have immediate concerns for your health or safety that cannot wait for your aftercare appointment? What actions are you taking to keep yourself safe? SW attempted to reach patient but was unable to. documented in this encounter Plan of Treatment [...] documented as of this encounter Care Teams Database Security Expert Relationship Specialty Start Date End Date Christopher Yadav MD [address] [place] [address] [address] [place] [address] PCP - General 07/11/20 documented as of this encounter
--- OUTSIDE RECORDS SUMMARY | 2025-02-12 16:54 | XMS_ITS | Encounter Summary ---
Author Organization [employer] ([place], [place], [place], [place], [place]) Address [address] [place] [address] Care Team Providers Care Flight Attendant Name Role Phone Christopher Yadav MD Primary Care Provider [phone] Encounter Details Date Type Department Care Team (Late st Contact Info) Description 08/23/2023 Telephone [facility] - [address] [place] [address] Wanda Peres, FERRYBOAT OPERATOR Social History Tobacco Use Types Packs/Day Years [...] Date Ehsan rded Speak language other than [place] at home Not on file 03/11/2023 Want [...] Description 03/27/2025 3:00 PM EST Office Visit [facility] - [address] [place] [address] Arnol Courtney MD 0063 Located Within [facility] [address] [place] [phone] documented as of this encounter Visit Diagnoses Not on filedocumented in this encounter Care Teams Flight Attendant Relationship Specialty Start Date End Date Christopher Yadav MD [address] [place] [address] PCP - General General Internal Medicine 03/15/23 documented as of this encounter
== END 2025-02-11 23:59 | disposition home or self-care (01) ==
LOC: LAB.DROPOF 02-12 16:51
PROVIDERS: PCP Internal Medicine; Visit Provider Nurse Practitioner
DX: E11.621 Type 2 diabetes mellitus with foot ulcer (principal); L97.529 Non-pressure chronic ulcer of other part of left foot with unspecified severity
CPT/HCPCS: 87070; 87205

== ENCOUNTER 2025-02-18 08:18 | Inpatient (IN) | payer MEDICARE, BC, SELFPAY ==
--- OUTSIDE RECORDS SUMMARY | 2024-12-26 13:35 | XMS_ITS | Encounter Summary ---
Author Organization [employer] ([place], [place], [place], [place], [place]) Address [address] [place] [address] Care Team Providers Care Machine Inker Name Role Phone Christopher Yadav MD Primary Care Provider [phone] Reason for Visit * Reason Comments Follow-up Prostate Cancer Encounter Details Date Type Department Care Team ([facility] st Contact Info) Description 12/26/2024 2:35 PM EDT Office Visit [facility] - [address] [place] [address] Arnol Courtney MD [address] [facility] [address] [place] [address] Prostate cancer (HCC) (Primary Dx) [...] Date Ehsan rded Speak language other than Anguillan at home Not on file 03/11/2023 Want [...] Surgeon: Eric Parkinson MD; Location: [facility]; Service: Orthopaedic Surgery; Laterality: Left; EXACTECH, HANA TABLE, C-ARM & PRINTER, CELL SAVER COLONOSCOPY multiple CORONARY ANGIOPLASTY WITH STENT PLACEMENT EYE SURGERY Bilateral catract extraction MANDIBLE SURGERY [place] BX PROSTATE STRTCTC SATURATION SAMPLING IMG GID N/A 08/16/2023 Procedure: BIOPSY, PROSTATE, PERINEAL APPROACH; Surgeon: Samuel Mata MD; Location: [facility]; Service: Urology; Laterality: N/A; [facility] [id number] Cancer History: Oncology History Prostate cancer (HCC) [...] Treatment Summary Treatment goal Palliative Plan Name [facility] Prostate - leuprolide 22.5 mg (Eligard) every [...] Children, or Individuals on Testosterone-Suppressing Hormone Therapy) ([facility] test code [id number]). Free or bioavailable testosterone measurements may provide supportive information. For individuals on testosterone hormone therapy, refer to cisgender male reference intervals. No reference intervals have been established for males younger than 14 years or for cisgender females. For a complete set of all established reference intervals, refer to [employer]/Tests/Pub/[id number]. Performed By: [facility] [address] [place] [address] Proofer: Cameron Javier MD, PhD CLIA Number: [id number] No results found. Cancer Staging Prostate cancer [...] Description 03/27/2025 3:00 PM EST Office Visit [facility] - [address] [place] [address] Arnol Courtney MD [address] [facility] [address] [place] [address] Scheduled Orders Name Type Priority Associated Diagnoses Orde r Schedule CBC with automated diff Lab Routine Prostate cancer (HCC) Expected: 03/27/2025, Expires: 06/25/2025 Vitamin B12 Lab Routine Prostate cancer (HCC) Expected: 03/27/2025, Expires: 06/25/2025 Folate Lab Routine Prostate cancer (HCC) Expected: 03/27/2025, Expires: 06/25/2025 PSA (Blazer, LUCIA, [place], [place], [facility]) Lab Routine Prostate cancer (HCC) Expected: 03/27/2025, Expires: 01/26/2026 Testosterone Free And Total, Adult Male(SENDOUT) Lab Routine Prostate cancer (HCC) Expected: 03/27/2025, Expires: 06/25/2025 documented as of this encounter Visit Diagnoses Diagnosis Prostate cancer (HCC)- Primary Malignant neoplasm of prostate documented in this encounter Care Teams Machine Inker Relationship Specialty Start Date End Date Christopher Yadav MD [address] [place] [phone] PCP - General General Internal Medicine 03/15/23 documented as of this encounter
--- OUTSIDE RECORDS SUMMARY | 2024-12-26 13:35 | XMS_ITS | Encounter Summary ---
Author Organization [id number] ([place], [place], [place], [place], [place]) Address [address] [place] [address] Care Team Providers Care Livestock Haulier Name Role Phone Christopher Yadav MD Primary Care Provider Reason for Visit * Reason Comments Follow-up Prostate Cancer Encounter Details Date Type Department Care Team ([facility] st Contact Info) Description 12/26/2024 2:35 PM EDT Office Visit [facility] - [address] [place] [address] Arnol Courtney MD [address] [facility] [address] [place] [address] Prostate cancer (HCC) (Primary Dx) [...] Date Ehsan rded Speak language other than Eritrean at home Not on file 03/11/2023 Want [...] ANTERIOR APPROACH; Surgeon: Eric Parkinson MD; Location: [facility]; Service: Orthopaedic Surgery; Laterality: Left; EXACTECH, HANA TABLE, C-ARM & PRINTER, CELL SAVER COLONOSCOPY multiple CORONARY ANGIOPLASTY WITH STENT PLACEMENT EYE SURGERY Bilateral catract extraction MANDIBLE SURGERY [place] BX PROSTATE STRTCTC SATURATION SAMPLING IMG GID N/A 08/16/2023 Procedure: BIOPSY, PROSTATE, PERINEAL APPROACH; Surgeon: Samuel Mata MD; Location: [facility]; Service: Urology; Laterality: N/A; [facility] [id number] Cancer History: Oncology History Prostate cancer (HCC) [...] Treatment Summary Treatment goal Palliative Plan Name [facility] Prostate - leuprolide 22.5 mg (Eligard) every [...] Children, or Individuals on Testosterone-Suppressing Hormone Therapy) ([facility] test code [id number]). Free or bioavailable testosterone measurements may provide supportive information. For individuals on testosterone hormone therapy, refer to cisgender male reference intervals. No reference intervals have been established for males younger than 14 years or for cisgender females. For a complete set of all established reference intervals, refer to ltd[employer]/Tests/Pub/[id number]. Performed By: [facility] [address] [place] [address] Support Staff: Cameron Javier MD, PhD CLIA Number: [id number] No results found. Cancer Staging Prostate cancer [...] Description 03/27/2025 3:00 PM EST Office Visit [facility] - [address] [place] [address] Arnol Courtney MD [address] [facility] [address] [place] [address] Scheduled Orders Name Type Priority Associated Diagnoses Orde r Schedule CBC with automated diff Lab Routine Prostate cancer (HCC) Expected: 03/27/2025, Expires: 06/25/2025 Vitamin B12 Lab Routine Prostate cancer (HCC) Expected: 03/27/2025, Expires: 06/25/2025 Folate Lab Routine Prostate cancer (HCC) Expected: 03/27/2025, Expires: 06/25/2025 PSA (Blazer, LUCIA, [place], [place], [facility]) Lab Routine Prostate cancer (HCC) Expected: 03/27/2025, Expires: 01/26/2026 Testosterone Free And Total, Adult Male(SENDOUT) Lab Routine Prostate cancer (HCC) Expected: 03/27/2025, Expires: 06/25/2025 documented as of this encounter Visit Diagnoses Diagnosis Prostate cancer (HCC)- Primary Malignant neoplasm of prostate documented in this encounter Care Teams Livestock Haulier Relationship Specialty Start Date End Date Christopher Yadav MD [address] [place] [address] PCP - General General Internal Medicine 03/15/23 documented as of this encounter"
--- OUTSIDE RECORDS SUMMARY | 2025-01-02 19:00 | XMS_ITS | Clinical Summary ---
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 Name Role Phone FROYLAN SON, ANALISA Unavailable Unavailable SALAZAR RN, ISMAEL Unavailable Unavailable LESLEY RN, TAVARES Unavailable Unavailable ROSA PT, TARYN Unavailable Unavailable SANJUANA CLOTH WINDING SUPERVISOR, MOSES Unavailable Unavailabl raymond GALEANO OT, MESFIN Unavailable Unavailable KERRY KM/FERREIRA, MARIEA Unavailable Unavail able Payers Payer Name Policy Type Policy Number Effective Date Expira tion Date [place]ICARE.[place] [id number] Problems Condition Name Condition Details Condition Category Status Onset Date Resolution Date Last Treatment Date Treating Clinician Comments HYP HRT AND CHR KDNY DIS W HRT FAIL AND STG 1-4/UNSP CHR KDNY Active 10-30 00:00: 00 ACUTE DIASTOLIC (CONGESTIVE) HEART FAILURE Active 10-30 00:00: 00 TYPE 2 DIABETES MELLITUS W DIABETIC CHRONIC KIDNEY DISEASE Active 10-30 00:00: 00 CHRONIC KIDNEY DISEASE, STAGE 4 (SEVERE) Active 10-30 00:00: 00 ANEMIA IN CHRONIC KIDNEY DISEASE Active 10-30 00:00: 00 TYPE 2 DIABETES MELLITUS WITH HYPERGLYCEMI A Active 10-30 00:00: 00 TYPE 2 DIABETES MELLITUS WITH DIABETIC NEUROPATHY, UNSP Active 10-30 00:00: 00 ATHSCL HEART DISEASE OF [place] CORONARY ARTERY W/O ANG PCTRS Active 10-30 00:00: 00 UNSPECIFIED ATRIAL FIBRILLATION Active 10-30 00:00: 00 ORTHOSTATIC HYPOTENSION Active 10-30 00:00: 00 NONRHEUMATIC AORTIC (VALVE) STENOSIS Active 10-30 00:00: 00 CONTUSION OF LEFT FOOT, SUBSEQUENT ENCOUNTER Active 10-30 00:00: 00 GOUT, UNSPECIFIED Active 10-30 00:00: 00 GASTRO-ESOPH AGEAL REFLUX DISEASE WITHOUT ESOPHAGITIS Active 10-30 00:00: 00 MIXED HYPERLIPIDEM IA Active 10-30 00:00: 00 RETENTION OF URINE, UNSPECIFIED Active 10-30 00:00: 00 OBESITY, UNSPECIFIED Active 10-30 00:00: 00 BODY MASS INDEX [BMI] 35.0-35.9, ADULT Active 02-28 00:00: 00 PRODUCTION WELDER (CURRENT) USE OF ANTICOAGULAN TS Active 10-30 00:00: 00 PRODUCTION WELDER (CURRENT) USE OF ANTITHROMBOT ICS/ANTIPLAT ELETS Active 10-30 00:00: 00 PRODUCTION WELDER (CURRENT) USE OF INSULIN Active 10-30 00:00: 00 PERSONAL HISTORY OF NICOTINE DEPENDENCE Active 10-30 00:00: 00 DEPENDENCE ON SUPPLEMENTAL OXYGEN Active 02-28 00:00: 00 Allergies, Adverse Reactions, Alerts Allergy Name Allergy Type Status Severity Reaction(s) Onset Date Inactive Date Treating Clinician Comments NO KNOWN ALLERGIES Propensity to adverse reactions Active 11-07 10:28: 19 Medications Ordered Medication Name Filled Medication Name Start Date Stop Date Current Medication? Ordering Clinician Indication Dosage Frequency Signature (SIG) Comments Components sulfamethox azole 800 mg-trimetho prim 160 mg tablet 2023-02 00:00: 00 01-01 00:00 :00 No [id number] Unavailable Per instruc tions TWICE DAILY Per instructio ns TWICE DAILY (route: oral) Med Classific ation: Anti-Infe ctive Agents allopurinol 100 mg tablet 2023-02 00:00: 00 09-23 23:59 :00 No [id number] GOUT Per instruc tions TWICE DAILY Per instructio ns TWICE DAILY (route: oral) Med Classific ation: Gout and Hyperuric emia Therapy clopidogrel 75 mg tablet 2023-0218 00:00: 00 09-23 23:59 :00 No [id number] ANTIPLATELE T Per instruc tions ONCE DAILY Per instructio ns ONCE DAILY (route: oral) Med Classific ation: Hematolog ical Agents prednisone 5 mg tablet 2023-02 0-15 00:00: 00 09-23 23:59 :00 No [id number] STEROID Per instruc tions ONCE DAILY Per instructio ns ONCE DAILY (route: oral) Med Classific ation: Endocrine amlodipine 5 mg tablet 2023-02 00:00: 00 09-23 23:59 :00 No [id number] HTN Per instruc tions TWICE DAILY Per instructio ns TWICE DAILY (route: oral) Med Classific ation: Cardiovas cular Therapy Agents famotidine 20 mg tablet 2023-02 00:00: 00 09-23 23:59 :00 No [id number] GERD Per instruc tions ONCE DAILY Per instructio ns ONCE DAILY (route: oral) Med Classific ation: Gastroint estinal Therapy Agents Novolin 70/30 U-100 Insulin 100 unit/mL subcutaneou s suspension 2023-02 00:00: 00 09-23 23:59 :00 No [id number] DM Per instruc tions SUBCUTANEO USLY TWICE DAILY Per instructio ns SUBCUTANEO USLY TWICE DAILY (route: subcutaneo us) Med Classific ation: Endocrine abiraterone 250 mg tablet 2023-02 0 00:00: 00 09-23 23:59 :00 No [id number] CANCER 4 tablet DAILY 4 tablet DAILY (route: oral) Med Classific ation: Antineopl astics gabapentin 300 mg capsule 2023-02 0-05 00:00: 00 09-23 23:59 :00 No [id number] NERVE PAIN Per instruc tions THREE TIMES DAILY Per instructio ns THREE TIMES DAILY (route: oral) Med Classific ation: Central Nervous System Agents Aspirin Childrens 81 mg chewable tablet 2023-02 0 00:00: 00 09-23 23:59 :00 No [id number] ANTICOAGULA NT 1 tablet DAILY 1 tablet DAILY (route: oral) Med Classific ation: Hematolog ical Agents B12 Active 1,000 mcg chewable tablet 2023-02 0- 00:00: 00 09-23 23:59 :00 No [id number] SUPPLEMENT 1 tablet DAILY 1 tablet DAILY (route: oral) Med Classific ation: Electroly te Balance-N utritiona l Products calcitriol 0.25 mcg capsule 2023-02 00:00: 00 09-23 23:59 :00 No [id number] SUPPLEMENT 1 capsule 3 TIMES A WEEK 1 capsule 3 TIMES A WEEK (route: oral) Med Classific ation: Electroly te Balance-N utritiona l Products coenzyme Q10 (ubiquinol) 100 mg capsule 2023-02 00:00: 00 09-23 23:59 :00 No [id number] SUPPLEMENT 1 capsule DAILY 1 capsule DAILY (route: oral) Med Classific ation: Alternati ve Therapy furosemide 20 mg tablet 2023-02 00:00: 00 09-23 23:59 :00 No [id number] FLUID 2 tablet DAILY 2 tablet DAILY (route: oral) Med Classific ation: Cardiovas cular Therapy Agents Gas Relief (simethicon e) 125 mg capsule 2023-02 00:00: 09-23 23:59 :00 No [id number] GAS 1 capsule DAILY 1 capsule DAILY (route: oral) Med Classific ation: Gastroint estinal Therapy Agents hydralazine 10 mg tablet 2023-02 00:00: 00 09-23 23:59 :00 No [id number] HTN 1 tablet 2 TIMES DAILY 1 tablet 2 TIMES DAILY (route: oral) Med Classific ation: Cardiovas cular Therapy Agents levofloxaci n 750 mg tablet 2023-02 00:00: 00 01-02 23:59 :00 No [id number] ANTIBIOTICS 1 tablet EVERY 48 HOURS 1 tablet EVERY 48 HOURS (route: oral) Med Classific ation: Anti-Infe ctive Agents simvastatin 40 mg tablet 2023-02 00:00: 00 09-23 23:59 :00 No [id number] CHOLESTEROL 1 tablet DAILY 1 tablet DAILY (route: oral) Med Classific ation: Cardiovas cular Therapy Agents tamsulosin 0.4 mg capsule 2023-02 00:00: 00 09-23 23:59 :00 No [id number] BPH 1 capsule DAILY 1 capsule DAILY (route: oral) Med Classific ation: Genitouri nary Therapy pantoprazol e 40 mg tablet,alcon yed release 24 00:00: 00 11-07 00:00 :00 No [id number] REFLUX 1 tablet ONCE DAILY AT LEAST 30 MINUTES 1 tablet ONCE DAILY AT LEAST 30 MINUTES (route: oral) Med Classific ation: Gastroint estinal Therapy Agents famotidine 20 mg tablet 16 00:00: 00 11-07 00:00 :00 No [id number] REFLUX 1 tablet DAILY 1 tablet DAILY (route: oral) Med Classific ation: Gastroint estinal Therapy Agents furosemide 20 mg tablet 09-05 00:00: 00 Yes [id number] FLUID 2 tablet NEEDED 2 tablet NEEDED (route: oral) Med Classific ation: Cardiovas cular Therapy Agents allopurinol 100 mg tablet 10-03 00:00: 00 Yes [id number] GOUT 1 tablet 2 TIMES DAILY 1 tablet 2 TIMES DAILY (route: oral) Med Classific ation: Gout and Hyperuric emia Therapy amlodipine 5 mg tablet 10-03 00:00: 00 11-07 00:00 :00 No [id number] HEART 1 tablet 2 TIMES DAILY 1 tablet 2 TIMES DAILY (route: oral) Med Classific ation: Cardiovas cular Therapy Agents aspirin 81 mg chewable tablet 10-03 00:00: 00 11-07 00:00 :00 No [id number] HEART 1 tablet DAILY 1 tablet DAILY (route: oral) Med Classific ation: Hematolog ical Agents calcitriol 0.25 mcg capsule 10-03 00:00: 00 Yes [id number] SUPPLEMENT 1 capsule DIRECTED 1 capsule DIRECTED (route: oral) Med Classific ation: Electroly te Balance-N utritiona l Products clopidogrel 75 mg tablet 10-03 00:00: 00 Yes [id number] HEART 1 tablet DAILY 1 tablet DAILY (route: oral) Med Classific ation: Hematolog ical Agents gabapentin 300 mg capsule 10-03 00:00: 00 Yes [id number] NERVE PAIN 1 capsule 3 TIMES DAILY 1 capsule 3 TIMES DAILY (route: oral) Med Classific ation: Central Nervous System Agents hydralazine 100 mg tablet 10-03 00:00: 00 11-07 00:00 :00 No [id number] BLOOD PRESSURE 2 tablet 2 TIMES DAILY 2 tablet 2 TIMES DAILY (route: oral) Med Classific ation: Cardiovas cular Therapy Agents Novolin N FlexPen 100 unit/mL (3 mL) subcutaneou s insulin pen 10-03 00:00: 00 Yes [id number] DIABETES Per instruc tions 2 TIMES DAILY Per instructio ns 2 TIMES DAILY (route: subcutaneo us) Med Classific ation: Endocrine oxygen gas for inhalation 10-03 00:00: 00 Yes [id number] OXYGEN 2 Liter O2 - NIGHTLY 2 Liter O2 - NIGHTLY (route: inhalation ) Med Classific ation: Medical Supplies and Durable Medical Equipment (DME) simvastatin 40 mg tablet 10-03 00:00: 00 Yes [id number] CHOLESTEROL 1 tablet BEDTIME 1 tablet BEDTIME (route: oral) Med Classific ation: Cardiovas cular Therapy Agents tamsulosin 0.4 mg capsule 10-03 00:00: 00 Yes [id number] PROSTATE 1 capsule DAILY 1 capsule DAILY (route: oral) Med Classific ation: Genitouri nary Therapy carvedilol 3.125 mg tablet 11-07 00:00: 00 Yes [id number] HEART 1 tablet DAILY 1 tablet DAILY (route: oral) Med Classific ation: Cardiovas cular Therapy Agents Eliquis 2.5 mg tablet 11-07 00:00: 00 Yes [id number] HEART 1 tablet DAILY 1 tablet DAILY (route: oral) Med Classific ation: Hematolog ical Agents mecobalamin (vitamin B12) 1,000 mcg disintegrat ing tablet,subl ingual 11-07 00:00: 00 Yes [id number] SUPPLEMENT 1 tablet DAILY 1 tablet DAILY (route: sublingual ) Med Classific ation: Electroly te Balance-N utritiona l Products escitalopra m 5 mg tablet 2024-02 00:00: 00 Yes [id number] ANXIETY 1 tablet BEDTIME 1 tablet BEDTIME (route: oral) Med Classific ation: Central Nervous System Agents Vital Signs Vital Name Observation Time Observation Value Commen ts Temperature 2025-01-03 12:16:00.000 96.9 [degF] Temperature 2025-01-02 14:58:00.000 97.4 [degF] Temperature 2024-12-28 13:30:00.000 97.2 [degF] Temperature 2024-12-20 14:57:00.000 97.3 [degF] Temperature 2024-12-12 13:22:00.000 97.3 [degF] Temperature 2024-12-11 12:32:00.000 96.9 [degF] Temperature 2024-12-10 13:57:00.000 97.4 [degF] Temperature 2024-12-07 12:00:00.000 97.1 [degF] Temperature 2024-12-04 13:15:00.000 98.3 [degF] Temperature 2024-12-04 12:09:00.000 98 [degF] Temperature 2024-12-03 14:51:00.000 97.4 [degF] Temperature 2024-11-28 15:35:00.000 97.7 [degF] Temperature 2024-11-26 15:42:00.000 97.8 [degF] Temperature 2024-11-26 10:36:00.000 97.1 [degF] Temperature 2024-11-21 15:54:00.000 98.7 [degF] Temperature 2024-11-19 15:42:00.000 97.4 [degF] Temperature 2024-11-19 09:28:00.000 97.3 [degF] Temperature 2024-11-16 13:24:00.000 97.5 [degF] Temperature 2024-11-14 10:13:00.000 97.1 [degF] Temperature 2024-11-13 11:14:00.000 96.9 [degF] Temperature 2024-11-12 10:49:00.000 96.3 [degF] Temperature 2024-11-08 15:28:00.000 97.8 [degF] Temperature 2024-11-07 10:32:00.000 98 [degF] BMI (%) 2024-11-07 10:14:41.000 35 kg/m2 Height 2024-11-07 10:14:37.000 72 [in_us] Pulse 2025-01-03 12:16:00.000 62 /min Pulse 2025-01-02 14:58:00.000 60 /min Pulse 2024-12-28 13:30:00.000 64 /min Pulse 2024-12-20 14:57:00.000 62 /min Pulse 2024-12-12 13:22:00.000 72 /min Pulse 2024-12-11 12:32:00.000 66 /min Pulse 2024-12-10 13:57:00.000 60 /min Pulse 2024-12-07 12:00:00.000 61 /min Pulse 2024-12-04 13:15:00.000 60 /min Pulse 2024-12-04 12:09:00.000 60 /min Pulse 2024-12-03 14:51:00.000 65 /min Pulse 2024-11-28 15:35:00.000 60 /min Pulse 2024-11-26 15:42:00.000 73 /min Pulse 2024-11-26 10:36:00.000 84 /min Pulse 2024-11-21 15:54:00.000 76 /min Pulse 2024-11-19 15:42:00.000 70 /min Pulse 2024-11-19 09:28:00.000 68 /min Pulse 2024-11-16 13:24:00.000 68 /min Pulse 2024-11-14 10:13:00.000 65 /min Pulse 2024-11-13 11:14:00.000 70 /min Pulse 2024-11-12 10:49:00.000 71 /min Pulse 2024-11-08 15:28:00.000 70 /min Pulse 2024-11-07 10:32:00.000 62 /min O2 Saturation (%) 2025-01-03 12:16:00.000 94 % O2 Saturation (%) 2025-01-02 14:58:00.000 95 % O2 Saturation (%) 2024-12-28 13:30:00.000 97 % O2 Saturation (%) 2024-12-12 13:22:00.000 94 % O2 Saturation (%) 2024-12-11 12:32:00.000 94 % O2 Saturation (%) 2024-12-10 13:57:00.000 96 % O2 Saturation (%) 2024-12-07 12:00:00.000 94 % O2 Saturation (%) 2024-12-04 13:15:00.000 93 % O2 Saturation (%) 2024-12-04 12:09:00.000 92 % O2 Saturation (%) 2024-12-03 14:51:00.000 96 % O2 Saturation (%) 2024-11-28 15:35:00.000 94 % O2 Saturation (%) 2024-11-26 15:42:00.000 93 % O2 Saturation (%) 2024-11-26 10:36:00.000 100 % O2 Saturation (%) 2024-11-21 15:54:00.000 98 % O2 Saturation (%) 2024-11-19 15:42:00.000 95 % O2 Saturation (%) 2024-11-19 09:28:00.000 94 % O2 Saturation (%) 2024-11-16 13:24:00.000 95 % O2 Saturation (%) 2024-11-14 10:13:00.000 98 % O2 Saturation (%) 2024-11-13 11:14:00.000 94 % O2 Saturation (%) 2024-11-12 10:49:00.000 93 % O2 Saturation (%) 2024-11-08 15:28:00.000 94 % O2 Saturation (%) 2024-11-07 10:32:00.000 92 % Respirations 2025-01-03 12:16:00.000 18 /min Respirations 2025-01-02 14:58:00.000 18 /min Respirations 2024-12-28 13:30:00.000 17 /min Respirations 2024-12-20 14:57:00.000 18 /min Respirations 2024-12-12 13:22:00.000 18 /min Respirations 2024-12-11 12:32:00.000 17 /min Respirations 2024-12-10 13:57:00.000 18 /min Respirations 2024-12-07 12:00:00.000 17 /min Respirations 2024-12-04 13:15:00.000 18 /min Respirations 2024-12-04 12:09:00.000 16 /min Respirations 2024-12-03 14:51:00.000 18 /min Respirations 2024-11-28 15:35:00.000 20 /min Respirations 2024-11-26 15:42:00.000 18 /min Respirations 2024-11-26 10:36:00.000 16 /min Respirations 2024-11-21 15:54:00.000 16 /min Respirations 2024-11-19 15:42:00.000 19 /min Respirations 2024-11-19 09:28:00.000 16 /min Respirations 2024-11-16 13:24:00.000 17 /min Respirations 2024-11-14 10:13:00.000 17 /min Respirations 2024-11-13 11:14:00.000 16 /min Respirations 2024-11-12 10:49:00.000 18 /min Respirations 2024-11-08 15:28:00.000 18 /min Respirations 2024-11-07 10:32:00.000 20 /min Weight (lbs) 2025-01-03 12:16:00.000 261 [lb_av] Weight (lbs) 2025-01-02 14:58:00.000 261 [lb_av] Weight (lbs) 2024-12-28 13:30:00.000 263.8 [lb_av] Weight (lbs) 2024-12-11 12:32:00.000 265.8 [lb_av] Weight (lbs) 2024-12-10 13:57:00.000 265.2 [lb_av] Weight (lbs) 2024-12-07 12:00:00.000 268.6 [lb_av] Weight (lbs) 2024-12-04 13:15:00.000 266.2 [lb_av] Weight (lbs) 2024-12-04 12:09:00.000 266.2 [lb_av] Weight (lbs) 2024-12-03 15:19:00.000 264.2 [lb_av] Weight (lbs) 2024-11-28 15:35:00.000 268.1 [lb_av] Weight (lbs) 2024-11-26 15:51:00.000 266.8 [lb_av] Weight (lbs) 2024-11-26 10:36:00.000 266.8 [lb_av] Weight (lbs) 2024-11-19 15:50:00.000 265.1 [lb_av] Weight (lbs) 2024-11-19 09:28:00.000 264.8 [lb_av] Weight (lbs) 2024-11-16 13:24:00.000 266.4 [lb_av] Weight (lbs) 2024-11-14 10:13:00.000 267.8 [lb_av] Weight (lbs) 2024-11-13 11:14:00.000 269.5 [lb_av] Weight (lbs) 2024-11-12 11:04:00.000 268.6 [lb_av] Weight (lbs) 2024-11-07 10:14:41.000 262 [lb_av] Systolic Blood Pressure 2025-01-03 12:16:00.000 132 mm [Hg] Systolic Blood Pressure 2025-01-02 15:06:00.000 138 mm [Hg] Systolic Blood Pressure 2024-12-28 13:30:00.000 140 mm [Hg] Systolic Blood Pressure 2024-12-20 14:57:00.000 126 mm [Hg] Systolic Blood Pressure 2024-12-12 13:22:00.000 110 mm [Hg] Systolic Blood Pressure 2024-12-11 12:32:00.000 128 mm [Hg] Systolic Blood Pressure 2024-12-10 14:05:00.000 136 mm [Hg] Systolic Blood Pressure 2024-12-07 12:00:00.000 102 mm [Hg] Systolic Blood Pressure 2024-12-04 13:15:00.000 126 mm [Hg] Systolic Blood Pressure 2024-12-04 12:09:00.000 124 mm [Hg] Systolic Blood Pressure 2024-12-03 14:51:00.000 124 mm [Hg] Systolic Blood Pressure 2024-11-28 15:35:00.000 96 mm[ Hg] Systolic Blood Pressure 2024-11-26 15:42:00.000 116 mm [Hg] Systolic Blood Pressure 2024-11-26 10:36:00.000 124 mm [Hg] Systolic Blood Pressure 2024-11-21 15:54:00.000 120 mm [Hg] Systolic Blood Pressure 2024-11-19 15:42:00.000 108 mm [Hg] Systolic Blood Pressure 2024-11-19 09:28:00.000 122 mm [Hg] Systolic Blood Pressure 2024-11-16 13:24:00.000 124 mm [Hg] Systolic Blood Pressure 2024-11-14 10:13:00.000 110 mm [Hg] Systolic Blood Pressure 2024-11-13 11:14:00.000 118 mm [Hg] Systolic Blood Pressure 2024-11-12 10:49:00.000 131 mm [Hg] Systolic Blood Pressure 2024-11-08 15:28:00.000 134 mm [Hg] Systolic Blood Pressure 2024-11-07 10:32:00.000 124 mm [Hg] Diastolic Blood Pressure 2025-01-03 12:16:00.000 64 mm [Hg] Diastolic Blood Pressure 2025-01-02 15:06:00.000 82 mm [Hg] Diastolic Blood Pressure 2024-12-28 13:30:00.000 80 mm [Hg] Diastolic Blood Pressure 2024-12-20 14:57:00.000 84 mm [Hg] Diastolic Blood Pressure 2024-12-12 13:22:00.000 52 mm [Hg] Diastolic Blood Pressure 2024-12-11 12:32:00.000 68 mm [Hg] Diastolic Blood Pressure 2024-12-10 14:05:00.000 62 mm [Hg] Diastolic Blood Pressure 2024-12-07 12:00:00.000 62 mm [Hg] Diastolic Blood Pressure 2024-12-04 13:15:00.000 80 mm [Hg] Diastolic Blood Pressure 2024-12-04 12:09:00.000 73 mm [Hg] Diastolic Blood Pressure 2024-12-03 14:51:00.000 70 mm [Hg] Diastolic Blood Pressure 2024-11-28 15:35:00.000 64 mm [Hg] Diastolic Blood Pressure 2024-11-26 15:42:00.000 68 mm [Hg] Diastolic Blood Pressure 2024-11-26 10:36:00.000 60 mm [Hg] Diastolic Blood Pressure 2024-11-21 15:54:00.000 80 mm [Hg] Diastolic Blood Pressure 2024-11-19 15:42:00.000 70 mm [Hg] Diastolic Blood Pressure 2024-11-19 09:28:00.000 68 mm [Hg] Diastolic Blood Pressure 2024-11-16 13:24:00.000 62 mm [Hg] Diastolic Blood Pressure 2024-11-14 10:13:00.000 58 mm [Hg] Diastolic Blood Pressure 2024-11-13 11:14:00.000 68 mm [Hg] Diastolic Blood Pressure 2024-11-12 10:49:00.000 74 mm [Hg] Diastolic Blood Pressure 2024-11-08 15:28:00.000 68 mm [Hg] Diastolic Blood Pressure 2024-11-07 10:32:00.000 52 mm [Hg] Plan of Treatment Planned Activity Planned Date Details Comments Future Scheduled Test RN TO OBSE RVE, ASSESS, EVALUATE, AND DEVELOP AN INDIVIDUALIZED PLAN OF CARE. AGENCY MAY ACCEPT ORDERS FROM CONSULTING PHYSICIANS DR CASTILLO HUGO RN TO OBSERVE AND ASSESS, MUTTON PUNCHER/BEATER OPERATOR TO OBSERVE FOR RISK FOR FALLS AND INSTRUCT IN FALL PREVENTION, HOME SAFETY, MEDICATION MANAGEMENT, INFECTION PREVENTION, AND NUTRITION MANAGEMENT. RN/MUTTON PUNCHER/BEATER OPERATOR NURSE MAY PERFORM O2 SATURATION LEVEL ON ADMISSION AND PRN FOR SOA FOR RN TO ASSESS/MUTTON PUNCHER TO OBSERVE PATIENT, WITH NOTIFICATION TO THE PHYSICIAN IF SATURATION IS 90% IN THE ABSENCE OF MORE SPECIFIC PARAMETERS FROM THE PHYSICIAN. AGENCY MAY PERFORM A RESUMPTION OF CARE VISIT FOLLOWING ANY HOSPITAL ADMISSION. RN/MUTTON PUNCHER/BEATER OPERATOR TO MONITOR CO-MORBID CONDITIONS LISTED ON THE PLAN OF CARE AND ANY NEW CONDITIONS THAT PRESENT THEMSELVES DURING THIS EPISODE TO IDENTIFY CHANGES AND INTERVENE TO MINIMIZE COMPLICATIONS. [code = RN TO OBSERVE, ASSESS, EVALUATE, AND DEVELOP AN INDIVIDUALIZED PLAN OF CARE. AGENCY MAY ACCEPT ORDERS FROM CONSULTING PHYSICIANS DR CASTILLO HUGO RN TO OBSERVE AND ASSESS, MUTTON PUNCHER/BEATER OPERATOR TO OBSERVE FOR RISK FOR FALLS AND INSTRUCT IN FALL PREVENTION, HOME SAFETY, MEDICATION MANAGEMENT, INFECTION PREVENTION, AND NUTRITION MANAGEMENT. RN/MUTTON PUNCHER/BEATER OPERATOR NURSE MAY PERFORM O2 SATURATION LEVEL ON ADMISSION AND PRN FOR SOA FOR RN TO ASSESS/MUTTON PUNCHER TO OBSERVE PATIENT, WITH NOTIFICATION TO THE PHYSICIAN IF SATURATION IS 90% IN THE ABSENCE OF MORE SPECIFIC PARAMETERS FROM THE PHYSICIAN. AGENCY MAY PERFORM A RESUMPTION OF CARE VISIT FOLLOWING ANY HOSPITAL ADMISSION. RN/MUTTON PUNCHER/BEATER OPERATOR TO MONITOR CO-MORBID CONDITIONS LISTED ON THE PLAN OF CARE AND ANY NEW CONDITIONS THAT PRESENT THEMSELVES DURING THIS EPISODE TO IDENTIFY CHANGES AND INTERVENE TO MINIMIZE COMPLICATIONS.] Future Scheduled Test RISK FOR H OSPITALIZATION; RN TO ASSESS/TEACH, BEATER OPERATOR/MUTTON PUNCHER TO OBSERVE/TEACH PATIENT/CAREGIVER ON RISK FOR HOSPITALIZATION/EMERGENCY ROOM VISITS, TEACH SIGNS AND SYMPTOMS THAT PUT PATIENT AT RISK, WHEN TO NOTIFY NURSE/PHYSICIAN OF COMPLICATIONS/DECLINE, AND WHEN TO CALL 911. [code = RISK FOR HOSPITALIZATION; RN TO ASSESS/TEACH, BEATER OPERATOR/MUTTON PUNCHER TO OBSERVE/TEACH PATIENT/CAREGIVER ON RISK FOR HOSPITALIZATION/EMERGENCY ROOM VISITS, TEACH SIGNS AND SYMPTOMS THAT PUT PATIENT AT RISK, WHEN TO NOTIFY NURSE/PHYSICIAN OF COMPLICATIONS/DECLINE, AND WHEN TO CALL 911.] Future Scheduled Test CARDIOVASC ULAR SYSTEM; RN TO ASSESS/TEACH, MUTTON PUNCHER/BEATER OPERATOR TO OBSERVE/TEACH RELATED TO ALTERED CARDIOVASCULAR STATUS TO MINIMIZE COMPLICATIONS AND REDUCE HOSPITALIZATION. [code = CARDIOVASCULAR SYSTEM; RN TO ASSESS/TEACH, MUTTON PUNCHER/BEATER OPERATOR TO OBSERVE/TEACH RELATED TO ALTERED CARDIOVASCULAR STATUS TO MINIMIZE COMPLICATIONS AND REDUCE HOSPITALIZATION.] Future Scheduled Test HEART FAIL URE; RN TO ASSESS/TEACH, MUTTON PUNCHER/BEATER OPERATOR TO OBSERVE/TEACH CARDIOPULMONARY SYSTEM TO IDENTIFY SIGNS OF DECOMPENSATION AND INTERVENE TO MINIMIZE THE SEVERITY OF FLUID OVERLOAD. OBSERVE PATIENT ABILITY TO MONITOR AND RECORD DAILY WEIGHTS AND VITAL SIGNS, INCLUDING PULSE AND BLOOD PRESSURE; RECORD PATIENT REPORTED WEIGHT, OR WEIGH PATIENT NEEDED. REPORT INCREASED EDEMA OR WEIGHT GAIN OF >2 LBS IN 1 DAY OR >5 LBS IN 1 WEEK OR 5LBS OR MORE OVER TARGET WEIGHT. MAY MEASURE ABDOMINAL GIRTH IF UNABLE TO WEIGH. SCALES AND BP MONITOR TO BE PROVIDED IF NEEDED. [code = HEART FAILURE; RN TO ASSESS/TEACH, MUTTON PUNCHER/BEATER OPERATOR TO OBSERVE/TEACH CARDIOPULMONARY SYSTEM TO IDENTIFY SIGNS OF DECOMPENSATION AND INTERVENE TO MINIMIZE THE SEVERITY OF FLUID OVERLOAD. OBSERVE PATIENT ABILITY TO MONITOR AND RECORD DAILY WEIGHTS AND VITAL SIGNS, INCLUDING PULSE AND BLOOD PRESSURE; RECORD PATIENT REPORTED WEIGHT, OR WEIGH PATIENT NEEDED. REPORT INCREASED EDEMA OR WEIGHT GAIN OF >2 LBS IN 1 DAY OR >5 LBS IN 1 WEEK OR 5LBS OR MORE OVER TARGET WEIGHT. MAY MEASURE ABDOMINAL GIRTH IF UNABLE TO WEIGH. SCALES AND BP MONITOR TO BE PROVIDED IF NEEDED.] Future Scheduled Test HYPERTENSI ON MANAGEMENT; RN TO ASSESS AND TEACH, MUTTON PUNCHER/BEATER OPERATOR TO OBSERVE AND TEACH WARNING SIGNS AND SYMPTOMS TO AVOID HOSPITALIZATION. [code = HYPERTENSION MANAGEMENT; RN TO ASSESS AND TEACH, MUTTON PUNCHER/BEATER OPERATOR TO OBSERVE AND TEACH WARNING SIGNS AND SYMPTOMS TO AVOID HOSPITALIZATION.] Future Scheduled Test ARRHYTHMIA MANAGEMENT; RN TO ASSESS AND TEACH, MUTTON PUNCHER/BEATER OPERATOR TO OBSERVE AND TEACH WARNING SIGNS AND SYMPTOMS TO AVOID HOSPITALIZATION. [code = ARRHYTHMIA MANAGEMENT; RN TO ASSESS AND TEACH, MUTTON PUNCHER/BEATER OPERATOR TO OBSERVE AND TEACH WARNING SIGNS AND SYMPTOMS TO AVOID HOSPITALIZATION.] Future Scheduled Test RESPIRATOR Y SYSTEM MANAGEMENT; RN TO ASSESS AND TEACH, MUTTON PUNCHER/BEATER OPERATOR TO OBSERVE AND TEACH RELATED TO ALTERED RESPIRATORY STATUS TO MINIMIZE COMPLICATIONS AND REDUCE HOSPITALIZATION. [code = RESPIRATORY SYSTEM MANAGEMENT; RN TO ASSESS AND TEACH, MUTTON PUNCHER/BEATER OPERATOR TO OBSERVE AND TEACH RELATED TO ALTERED RESPIRATORY STATUS TO MINIMIZE COMPLICATIONS AND REDUCE HOSPITALIZATION.] Future Scheduled Test OXYGEN THE RAPY; RN/MUTTON PUNCHER/BEATER OPERATOR TO INSTRUCT ON OXYGEN MANAGEMENT INCLUDING: ADMINISTRATION AT 2 L/MIN VIA NC PRN, CARE OF EQUIPMENT AND SAFETY. [code = OXYGEN THERAPY; RN/MUTTON PUNCHER/BEATER OPERATOR TO INSTRUCT ON OXYGEN MANAGEMENT INCLUDING: ADMINISTRATION AT 2 L/MIN VIA NC PRN, CARE OF EQUIPMENT AND SAFETY.] Future Scheduled Test PAIN MANAG EMENT; RN TO ASSESS AND TEACH, BEATER OPERATOR/MUTTON PUNCHER TO OBSERVE AND TEACH AND PROVIDE EDUCATION ON PAIN MANAGEMENT TECHNIQUES. [code = PAIN MANAGEMENT; RN TO ASSESS AND TEACH, BEATER OPERATOR/MUTTON PUNCHER TO OBSERVE AND TEACH AND PROVIDE EDUCATION ON PAIN MANAGEMENT TECHNIQUES.] Future Scheduled Test DIABETES M ANAGEMENT; RN TO ASSESS AND TEACH, BEATER OPERATOR/MUTTON PUNCHER TO OBSERVE AND TEACH INSTRUCTIONS OF DIABETIC CARE TO INCLUDE: DIET LOW CARB, SKIN CARE, SIGNS AND SYMPTOMS OF HYPO/HYPERGLYCEMIA, PROPER ADMINISTRATION OF DIABETIC MEDICATION. RN/BEATER OPERATOR/MUTTON PUNCHER TO INSTRUCT ON DIABETIC FOOT CARE AND MONITOR FOR SKIN LESIONS ON LOWER EXTREMITIES. BLOOD GLUCOSE TESTING DAILY FREQ. RN TO ASSESS AND TEACH, BEATER OPERATOR/MUTTON PUNCHER TO OBSERVE AND TEACH PATIENT/CAREGIVER ABILITY TO PERFORM AND RECORD BLOOD GLUCOSE TESTING ORDERED AND TO REPORT ABNORMAL FINDINGS TO PHYSICIAN. RN/BEATER OPERATOR/MUTTON PUNCHER MAY PERFORM BLOOD GLUCOSE TEST NEEDED. RN/BEATER OPERATOR/MUTTON PUNCHER TO REPORT TO PHYSICIAN BLOOD GLUCOSE READINGS GREATER THAN 400 OR LESS THAN 60. RN/BEATER OPERATOR/MUTTON PUNCHER TO INSTRUCT PATIENT ON IMPORTANCE OF HGBA1C MONITORING, KIDNEY FUNCTION TEST, EYE AND FOOT EXAMS. [code = DIABETES MANAGEMENT; RN TO ASSESS AND TEACH, BEATER OPERATOR/MUTTON PUNCHER TO OBSERVE AND TEACH INSTRUCTIONS OF DIABETIC CARE TO INCLUDE: DIET LOW CARB, SKIN CARE, SIGNS AND SYMPTOMS OF HYPO/HYPERGLYCEMIA, PROPER ADMINISTRATION OF DIABETIC MEDICATION. RN/BEATER OPERATOR/MUTTON PUNCHER TO INSTRUCT ON DIABETIC FOOT CARE AND MONITOR FOR SKIN LESIONS ON LOWER EXTREMITIES. BLOOD GLUCOSE TESTING DAILY FREQ. RN TO ASSESS AND TEACH, BEATER OPERATOR/MUTTON PUNCHER TO OBSERVE AND TEACH PATIENT/CAREGIVER ABILITY TO PERFORM AND RECORD BLOOD GLUCOSE TESTING ORDERED AND TO REPORT ABNORMAL FINDINGS TO PHYSICIAN. RN/BEATER OPERATOR/MUTTON PUNCHER MAY PERFORM BLOOD GLUCOSE TEST NEEDED. RN/BEATER OPERATOR/MUTTON PUNCHER TO REPORT TO PHYSICIAN BLOOD GLUCOSE READINGS GREATER THAN 400 OR LESS THAN 60. RN/BEATER OPERATOR/MUTTON PUNCHER TO INSTRUCT PATIENT ON IMPORTANCE OF HGBA1C MONITORING, KIDNEY FUNCTION TEST, EYE AND FOOT EXAMS.] Future Scheduled Test FALL REDUC TION MANAGEMENT; RN TO ASSESS AND OBSERVE, MUTTON PUNCHER/BEATER OPERATOR TO OBSERVE FALL RISK FACTORS AND EDUCATE PATIENT/CAREGIVER ON STRATEGIES TO MINIMIZE THE RISK OF FALLING. [code = FALL REDUCTION MANAGEMENT; RN TO ASSESS AND OBSERVE, MUTTON PUNCHER/BEATER OPERATOR TO OBSERVE FALL RISK FACTORS AND EDUCATE PATIENT/CAREGIVER ON STRATEGIES TO MINIMIZE THE RISK OF FALLING.] Future Scheduled Test PHYSICAL T HERAPIST TO EVALUATE FOR GAIT BALANCE ENDURANCE STRENGTH [code = PHYSICAL THERAPIST TO EVALUATE FOR GAIT BALANCE ENDURANCE STRENGTH] Future Scheduled Test OCCUPATION AL THERAPIST TO EVALUATE FOR ADLS AND IADLS [code = OCCUPATIONAL THERAPIST TO EVALUATE FOR ADLS AND IADLS] Future Scheduled Test PRN VISITS ; NUMBER OF RN/MUTTON PUNCHER/BEATER OPERATOR VISITS: 2 RN/MUTTON PUNCHER/BEATER OPERATOR TO PERFORM: ASSESSMENT FOR THE FOLLOWING REASONS: HF, FALLS, HTN ETC [code = PRN VISITS; NUMBER OF RN/MUTTON PUNCHER/BEATER OPERATOR VISITS: 2 RN/MUTTON PUNCHER/BEATER OPERATOR TO PERFORM: ASSESSMENT FOR THE FOLLOWING REASONS: HF, FALLS, HTN ETC] Future Scheduled Test AGENCY MAY PERFORM A RESUMPTION OF CARE VISIT FOLLOWING ANY HOSPITAL ADMISSION. PT TO EVALUATE, OBSERVE / ASSESS, AND MONITOR, CLOTH WINDING SUPERVISOR TO OBSERVE AND MONITOR, PROVIDE SKILLED THERAPEUTIC INTERVENTION, ACTIVITY, EDUCATION, AND TRAINING TO ADDRESS; PT/CLOTH WINDING SUPERVISOR TO PROVIDE GAIT TRAINING FOR IMPROVED MOBILITY AND /OR TO NORMALIZE GAIT PATTERN NEUROMUSCULAR RE-EDUCATION / BALANCE / POSTURAL CONTROL (PT) THERAPEUTIC EXERCISES AND ESTABLISHING A HOME EXERCISE PROGRAM (PT/CLOTH WINDING SUPERVISOR) PT/CLOTH WINDING SUPERVISOR TO PROVIDE STAIR TRAINING SIT TO/FROM STAND TRANSFERS (PT/CLOTH WINDING SUPERVISOR) PT TO ASSESS / CLOTH WINDING SUPERVISOR TO MONITOR FOR AND REPORT EARLY SIGNS OF ANTICOAGULANT TOXICITY TO THE PHYSICIAN AND/OR THE RN CLINICAL LUNG PULLER FOR PHYSICIAN NOTIFICATION AND TO PROVIDE PATIENT/CAREGIVER EDUCATION ON ANTICOAGULANT THERAPY PT / CLOTH WINDING SUPERVISOR TO MONITOR AND EDUCATE ON OXYGEN SATURATION DURING ADLS/IADLS, NOTIFY PHYSICIAN AND/OR THE RN CLINICAL LUNG PULLER FOR PHYSICIAN NOTIFICATION AND IF O2 SATS BELOW PHYSICIAN ORDERED PARAMETERS AFTER 10 MIN OF REST PT TO ASSESS / CLOTH WINDING SUPERVISOR TO MONITOR CARDIO/RESPIRATORY SYSTEM; AND NOTIFY THE PHYSICIAN AND/OR THE RN CLINICAL LUNG PULLER FOR PHYSICIAN NOTIFICATION FOR EARLY SIGNS AND SYMPTOMS OF EXACERBATION OR DETERIORATION. [code = AGENCY MAY PERFORM A RESUMPTION OF CARE VISIT FOLLOWING ANY HOSPITAL ADMISSION. PT TO EVALUATE, OBSERVE / ASSESS, AND MONITOR, CLOTH WINDING SUPERVISOR TO OBSERVE AND MONITOR, PROVIDE SKILLED THERAPEUTIC INTERVENTION, ACTIVITY, EDUCATION, AND TRAINING TO ADDRESS; PT/CLOTH WINDING SUPERVISOR TO PROVIDE GAIT TRAINING FOR IMPROVED MOBILITY AND /OR TO NORMALIZE GAIT PATTERN NEUROMUSCULAR RE-EDUCATION / BALANCE / POSTURAL CONTROL (PT) THERAPEUTIC EXERCISES AND ESTABLISHING A HOME EXERCISE PROGRAM (PT/CLOTH WINDING SUPERVISOR) PT/CLOTH WINDING SUPERVISOR TO PROVIDE STAIR TRAINING SIT TO/FROM STAND TRANSFERS (PT/CLOTH WINDING SUPERVISOR) PT TO ASSESS / CLOTH WINDING SUPERVISOR TO MONITOR FOR AND REPORT EARLY SIGNS OF ANTICOAGULANT TOXICITY TO THE PHYSICIAN AND/OR THE RN CLINICAL LUNG PULLER FOR PHYSICIAN NOTIFICATION AND TO PROVIDE PATIENT/CAREGIVER EDUCATION ON ANTICOAGULANT THERAPY PT / CLOTH WINDING SUPERVISOR TO MONITOR AND EDUCATE ON OXYGEN SATURATION DURING ADLS/IADLS, NOTIFY PHYSICIAN AND/OR THE RN CLINICAL LUNG PULLER FOR PHYSICIAN NOTIFICATION AND IF O2 SATS BELOW PHYSICIAN ORDERED PARAMETERS AFTER 10 MIN OF REST PT TO ASSESS / CLOTH WINDING SUPERVISOR TO MONITOR CARDIO/RESPIRATORY SYSTEM; AND NOTIFY THE PHYSICIAN AND/OR THE RN CLINICAL LUNG PULLER FOR PHYSICIAN NOTIFICATION FOR EARLY SIGNS AND SYMPTOMS OF EXACERBATION OR DETERIORATION.] Future Scheduled Test AGENCY MAY PERFORM A RESUMPTION OF CARE VISIT FOLLOWING ANY HOSPITAL ADMISSION. OT TO EVALUATE, OBSERVE / ASSESS, AND MONITOR, KM TO OBSERVE AND MONITOR, PROVIDE SKILLED THERAPEUTIC INTERVENTION, ACTIVITY, EDUCATION, AND TRAINING TO ADDRESS ADLS/IADLS, ADAPTIVE EQUIPMENT, STRENGTHENING, BALANCE, AND FUNCTIONAL TRANSFERS TO MAXIMIZE SAFETY AND FUNCTIONAL INDEPENDENCE IN HOME BATHING/SHOWERING (OT/PROFILE STITCHING MACHINE OPERATOR) DRESSING (OT/PROFILE STITCHING MACHINE OPERATOR) ACTIVITIES OF DAILY LIVING (OT/PROFILE STITCHING MACHINE OPERATOR) TOILET TRANSFER (OT/KM) BATH/SHOWER TRANSFER (OT/PROFILE STITCHING MACHINE OPERATOR) POSTURAL CONTROL/BALANCE (OT/KM) THERAPEUTIC EXERCISE (OT/KM) OT/KM TO MONITOR FOR AND REPORT EARLY SIGNS OF ANTICOAGULANT TOXICITY TO THE PHYSICIAN AND/OR THE RN CLINICAL LUNG PULLER FOR PHYSICIAN NOTIFICATION AND TO PROVIDE PATIENT/CAREGIVER EDUCATION ON ANTICOAGULANT THERAPY OT TO ASSESS / PROFILE STITCHING MACHINE OPERATOR TO MONITOR CARDIO/RESPIRATORY SYSTEM; AND NOTIFY THE PHYSICIAN AND/OR THE RN CLINICAL LUNG PULLER FOR PHYSICIAN NOTIFICATION FOR EARLY SIGNS AND SYMPTOMS OF EXACERBATION OR DETERORATION [code = AGENCY MAY PERFORM A RESUMPTION OF CARE VISIT FOLLOWING ANY HOSPITAL ADMISSION. OT TO EVALUATE, OBSERVE / ASSESS, AND MONITOR, PROFILE STITCHING MACHINE OPERATOR TO OBSERVE AND MONITOR, PROVIDE SKILLED THERAPEUTIC INTERVENTION, ACTIVITY, EDUCATION, AND TRAINING TO ADDRESS ADLS/IADLS, ADAPTIVE EQUIPMENT, STRENGTHENING, BALANCE, AND FUNCTIONAL TRANSFERS TO MAXIMIZE SAFETY AND FUNCTIONAL INDEPENDENCE IN HOME BATHING/SHOWERING (OT/KM) DRESSING (OT/KM) ACTIVITIES OF DAILY LIVING (OT/KM) TOILET TRANSFER (OT/KM) BATH/SHOWER TRANSFER (OT/KM) POSTURAL CONTROL/BALANCE (OT/KM) THERAPEUTIC EXERCISE (OT/PROFILE STITCHING MACHINE OPERATOR) OT/PROFILE STITCHING MACHINE OPERATOR TO MONITOR FOR AND REPORT EARLY SIGNS OF ANTICOAGULANT TOXICITY TO THE PHYSICIAN AND/OR THE RN CLINICAL LUNG PULLER FOR PHYSICIAN NOTIFICATION AND TO PROVIDE PATIENT/CAREGIVER EDUCATION ON ANTICOAGULANT THERAPY OT TO ASSESS / KM TO MONITOR CARDIO/RESPIRATORY SYSTEM; AND NOTIFY THE PHYSICIAN AND/OR THE RN CLINICAL LUNG PULLER FOR PHYSICIAN NOTIFICATION FOR EARLY SIGNS AND SYMPTOMS OF EXACERBATION OR DETERORATION] Goal 2025-01-03 Patient Goal - TO GET STRONG ER Goal Provider Goal - A PLAN OF CARE WILL BE ESTABLISHED THAT MEETS THE PATIENT S NEEDS. PATIENT WILL DEMONSTRATE OXYGEN SATURATION WITHIN NORMAL LIMITS OR PATIENT S OPTIMAL LEVEL ESTABLISHED BY THE PHYSICIAN THROUGHOUT CARE. CHANGES TO CO-MORBID CONDITIONS AND ANY NEW CONDITIONS WILL BE IDENTIFIED AND REPORTED TO THE PHYSICIAN. Goal Provider Goal - PATIENT/CAREGIVER WILL VERBALIZE UNDERSTANDING OF SIGNS AND SYMPTOMS THAT PUT THE PATIENT AT RISK FOR HOSPITALIZATION /EMERGENCY ROOM VISITS, WHEN TO NOTIFY NURSE/PHYSICIAN OF COMPLICATIONS/DECLINE AND WHEN TO CALL 911. Goal Provider Goal - PATIENT / CAREGIVER WILL VERBALIZE/DEMONSTRATE UNDERSTANDING OF MEASURES TO MANAGE ALTERED CARDIOVASCULAR STATUS BY WEEK OF 12/30/24 Goal Provider Goal - PATIENT / CAREGIVER WILL VERBALIZE/DEMONSTRATE AN ABILITY TO ADHERE TO SELF-MANAGEMENT OF HF TO MINIMIZE COMPLICATIONS AND AVOID HOSPITALIZATION BY WEEK 12/30/24 Goal Provider Goal - PATIENT / CAREGIVER WILL VERBALIZE/DEMONSTRATE AN ABILITY TO ADHERE TO SELF-MANAGEMENT OF HTN TO MINIMIZE COMPLICATIONS AND AVOID HOSPITALIZATION BY WEEK OF 12/30/24 Goal Provider Goal - PATIENT / CAREGIVER WILL VERBALIZE/DEMONSTRATE AN ABILITY TO ADHERE TO SELF-MANAGEMENT OF HEART ARRHYTHMIA TO MINIMIZE COMPLICATIONS AND AVOID HOSPITALIZATION BY WEEK OF 12/30/24 Goal Provider Goal - PATIENT / CAREGIVER WILL VERBALIZE/DEMONSTRATE UNDERSTANDING OF MEASURES TO MANAGE ALTERED RESPIRATORY STATUS BY WEEK OF 12/30/24 Goal Provider Goal - PATIENT/CAREGIVER WILL VERBALIZE/DEMONSTRATE UNDERSTANDING OF CARE AND MANAGEMENT OF OXYGEN THERAPY BY WEEK OF 12/30/24 Goal Provider Goal - PATIENT / CAREGIVER WILL VERBALIZE / DEMONSTRATE UNDERSTANDING OF PAIN CONTROL MEASURES BY WEEK OF 12/30/24 Goal Provider Goal - PATIENT / CAREGIVER WILL VERBALIZE / DEMONSTRATE AN ABILITY TO ADHERE TO SELF-MANAGEMENT OF DIABETES MANAGEMENT BY WEEK OF 12/30/24. Goal Provider Goal - PATIENT/CAREGIVER WILL VERBALIZE/DEMONSTRATE UNDERSTANDING OF FALL RISK FACTORS AND IMPLEMENT STRATEGIES TO MINIMIZE FALL RISK. PATIENT/CAREGIVER WILL VERBALIZE/DEMONSTRATE AN ABILITY TO ADHERE TO FALL REDUCTION SELF-MANAGEMENT AND LIFE-STYLE CHANGES BY WEEK OF 12/30/24 Goal Provider Goal - Goal Provider Goal - Goal Provider Goal - Goal Provider Goal - PT LTG: PATIENT WILL DEMONSTRATE REDUCED GAIT DEVIATIONS TO REDUCE THE RISK FOR FALLING AND MINIMIZE STRAIN ON KNEES/HIPS AND BACK EVIDENCED BY IMPROVED HEEL STRIKE / STANCE PHASE / SWING PHASE USING RW TO WALK 100 FEET WITH SBA IN ORDER TO ACCESS WITHIN 9 ,WEEKS PT LTG: PATIENT WILL DEMONSTRATE REDUCED FALL RISK EVIDENCED BY TUG TEST (CUT SCORE >11 SECONDS INDICATES INCREASED FALL RISK) IMPROVING FROM 36 TO 18 WITHIN PT LTG: PATIENT WILL DEMONSTRATE INCREASED STRENGTH OF BILAT FROM 3 TO 4+ WITHIN 8 WEEKS IN ORDER TO PT LTG: PATIENT WILL DEMONSTRATE IMPROVED ABILITY TO SAFELY NEGOTIATE STAIRS FROM MAX TO CGA USING HANDRAILS IN ORDER TO ENTER AND EXIT WITHIN 8 WEEKS PT STG: PATIENT WILL DEMONSTRATE IMPROVED ABILITY TO PERFORM SIT TO/FROM STAND TRANSFERS TO REDUCE THE RISK OF SKIN BREAKDOWN AND REDUCE FALL RISK FROM MOD TO SBA WITHIN 6 WEEKS PT LTG: PATIENT WILL NOT EXHIBIT SIGNS AND SYMPTOMS OF ANTICOAGULANT TOXICITY THROUGHOUT EPISODE OF CARE. PT LTG: PATIENT WILL MAINTAIN OXYGEN SATURATION WITHIN PHYSICIAN ORDERED PARAMETERS THROUGHOUT EPISODE OF CARE. PT LTG: PATIENT WILL NOT EXPERIENCE CARDIAC OR RESPIRATORY COMPLICATIONS THROUGHOUT THE EPISODE OF CARE. Goal Provider Goal - OT STG: PATIENT WILL DEMONSTRATE IMPROVED ABILITY TO PERFORM BATHING/SHOWERING AND REDUCE CAREGIVER BURDEN FROM MIN A TO SBA WITHIN 4 WEEKS OT LTG: PATIENT WILL DEMONSTRATE IMPROVED ABILITY TO PERFORM BATHING/SHOWERING AND REDUCE CAREGIVER BURDEN FROM MIN A TO INDEPENDENT WITHIN 8 WEEKS OT LTG: PATIENT WILL DEMONSTRATE IMPROVED ABILITY TO PERFORM UPPER BODY DRESSING TO REDUCE CAREGIVER BURDEN FROM CGA TO INDEPENDENT WITHIN 8 WEEKS OT STG: PATIENT WILL DEMONSTRATE IMPROVED ABILITY TO PERFORM LOWER BODY DRESSING TO REDUCE CAREGIVER BURDEN FROM MIN A TO SBA WITHIN 4 WEEKS OT LTG: PATIENT WILL DEMONSTRATE IMPROVED ABILITY TO PERFORM LOWER BODY DRESSING TO REDUCE CAREGIVER BURDEN FROM MIN A TO INDEPENDENT WITHIN 8 WEEKS OT LTG: PATIENT WILL DEMONSTRATE IMPROVEMENT IN MODIFIED GILBERTO INDEX SCORE FROM 87 TO 95 INDICATING DECREASED DEPENDENCY ON CAREGIVER ASSISTANCE WITH ACTIVITIES OF DAILY LIVING WITHIN 8 WEEKS OT LTG: PATIENT WILL DEMONSTRATE IMPROVED ABILITY TO PERFORM TOILET TRANSFERS TO REDUCE FALL RISK AND RISK OF INCONTINENCE AND UTI DEVELOPMENT FROM SBA TO INDEPENDENT WITHIN 8 WEEKS OT STG: PATIENT WILL DEMONSTRATE IMPROVED ABILITY AND SAFETY TO PERFORM BATH/SHOWER TRANSFER FROM MIN A TO SBA WITHIN 4 WEEKS OT LTG: PATIENT WILL DEMONSTRATE IMPROVED ABILITY AND SAFETY TO PERFORM BATH/SHOWER TRANSFER FROM MIN A TO INDEPENDENT WITHIN 8 WEEKS OT LTG: PATIENT WILL DEMONSTRATE IMPROVED POSTURAL CONTROL AND DECREASED FALL RISK EVIDENCED BY AN IMPROVEMENT IN FUNCTIONAL REACH SCORE FROM 4 INCHES TO 8 INCHES WITHIN 8 WEEKS IN ORDER TO MAXIMIZE SAFETY WITH TRANSITIONAL MOVEMENTS DURING ADL PERFORMANCE OT LTG: PATIENT WILL DEMONSTRATE IMPROVED BALANCE/SENSORY INTEGRATION OF BALANCE SYSTEMS EVIDENCED BY AN IMPROVEMENT IN MCTSIB SCORE FROM 1/4 TO 2/4 WITHIN 8 WEEKS IN ORDER TO MAXIMIZE SAFETY WITH TRANSITIONAL MOVEMENTS DURING ADL PERFORMANCE OT LTG: PATIENT WILL DEMONSTRATE IMPROVED BUE MUSCLE STRENGTH EVIDENCED BY AN IMPROVEMENT IN MMT/FUNCTIONAL STRENGTH FROM 4-/5 TO 4/5 WITHIN 8 WEEKS IN ORDER TO MAXIMIZE ADL PERFORMANCE OT GOAL: PATIENT WILL NOT EXHIBIT SIGNS AND SYMPTOMS OF ANTICOAGULANT TOXICITY THROUGHOUT THE EPISODE OF CARE. OT LTG: PATIENT WILL NOT EXPERIENCE CARDIAC OR RESPIRATORY COMPLICATIONS THROUGHOUT THE EPISODE OF CARE. Reason for Visit INDEPENDENT IN THE HOME Encounters Start Date/Time End Date/Time Encounter Type Admission Type Attending [facility] Care Department Encounter ID Discharge Date Discharge Status Discharge Condition Discharge Reason Percent Goals Met 2024-11-07 00:00:00 2025-01-03 00:00:00 Outpatient TARYN ESPINAL [facility] [place] [id number] 2025-01-03 00:00:00 DISCHARGE TO HOME OR SELF CARE [facility]DEPENDEN T IN THE HOME HH - GOALS MET 73.53
--- OUTSIDE RECORDS SUMMARY | 2025-01-02 19:00 | XMS_ITS | Clinical Summary ---
Author Organization Unknown Care Team Providers Care Hardware Engineering Manager Name Role Phone FROYLAN SON, ANALISA Unavailable Unavailable SALAZAR RN, ISMAEL Unavailable Unavailable LESLEY RN, TAVARES Unavailable Unavailable ROSA PT, TARYN Unavailable Unavailable SANJUANA DIE CASTING MACHINE SETTER, MOSES Unavailable Unavailabl raymond GALEANO OT, MESFIN Unavailable Unavailable KERRY KM/FERREIRA, MARIEA Unavailable Unavail able Payers Payer Name Policy Type Policy Number Effective Date Expira tion Date MEDICARE.NERINXGRACE.[facility] [id number] Problems Condition Name Condition Details Condition Category [...] 10-30 00:00: 00 ATHSCL HEART DISEASE OF [place] CORONARY ARTERY W/O ANG PCTRS Active 10-30 [...] [BMI] 35.0-35.9, ADULT Active 02-28 00:00: 00 [employer] (CURRENT) USE OF ANTICOAGULAN TS Active 10-30 00:00: 00 [employer] (CURRENT) USE OF ANTITHROMBOT ICS/ANTIPLAT ELETS Active 10-30 00:00: 00 [employer] (CURRENT) USE OF INSULIN Active 10-30 00:00: [...] 2023-02 00:00: 00 01-01 00:00 :00 No [id number] Unavailable Per instruc tions TWICE DAILY Per instructio ns TWICE DAILY (route: oral) Med Classific ation: Anti-Infe ctive Agents allopurinol 100 mg tablet 2023-02 00:00: 00 09-23 23:59 :00 No [id number] GOUT Per instruc tions TWICE DAILY Per instructio ns TWICE DAILY (route: oral) Med Classific ation: Gout and Hyperuric emia Therapy clopidogrel 75 mg tablet 2023-0218 00:00: 00 09-23 23:59 :00 No [id number] ANTIPLATELE T Per instruc tions ONCE DAILY Per instructio ns ONCE DAILY (route: oral) Med Classific ation: Hematolog ical Agents prednisone 5 mg tablet 2023-02 0-15 00:00: 00 09-23 23:59 :00 No [id number] STEROID Per instruc tions ONCE DAILY Per instructio ns ONCE DAILY (route: oral) Med Classific ation: Endocrine amlodipine 5 mg tablet 2023-02 00:00: 00 09-23 23:59 :00 No [id number] HTN Per instruc tions TWICE DAILY Per instructio ns TWICE DAILY (route: oral) Med Classific ation: Cardiovas cular Therapy Agents famotidine 20 mg tablet 2023-02 00:00: 00 09-23 23:59 :00 No [id number] GERD Per instruc tions ONCE DAILY Per instructio ns ONCE DAILY (route: oral) Med Classific ation: Gastroint estinal Therapy Agents Novolin 70/30 U-100 Insulin 100 unit/mL subcutaneou s suspension 2023-02 00:00: 00 09-23 23:59 :00 No [id number] DM Per instruc tions SUBCUTANEO USLY TWICE DAILY Per instructio ns SUBCUTANEO USLY TWICE DAILY (route: subcutaneo us) Med Classific ation: Endocrine abiraterone 250 mg tablet 2023-02 0 00:00: 00 09-23 23:59 :00 No [id number] CANCER 4 tablet DAILY 4 tablet DAILY (route: oral) Med Classific ation: Antineopl astics gabapentin 300 mg capsule 2023-02 0-05 00:00: 00 09-23 23:59 :00 No [id number] NERVE PAIN Per instruc tions THREE TIMES DAILY Per instructio ns THREE TIMES DAILY (route: oral) Med Classific ation: Central Nervous System Agents Aspirin Childrens 81 mg chewable tablet 2023-02 0 00:00: 00 09-23 23:59 :00 No [id number] ANTICOAGULA NT 1 tablet DAILY 1 tablet DAILY (route: oral) Med Classific ation: Hematolog ical Agents B12 Active 1,000 mcg chewable tablet 2023-02 0- 00:00: 00 09-23 23:59 :00 No [id number] SUPPLEMENT 1 tablet DAILY 1 tablet DAILY (route: oral) Med Classific ation: Electroly te Balance-N utritiona l Products calcitriol 0.25 mcg capsule 2023-02 00:00: 00 09-23 23:59 :00 No [id number] SUPPLEMENT 1 capsule 3 TIMES A WEEK 1 capsule 3 TIMES A WEEK (route: oral) Med Classific ation: Electroly te Balance-N utritiona l Products coenzyme Q10 (ubiquinol) 100 mg capsule 2023-02 00:00: 00 09-23 23:59 :00 No [id number] SUPPLEMENT 1 capsule DAILY 1 capsule DAILY (route: oral) Med Classific ation: Alternati ve Therapy furosemide 20 mg tablet 2023-02 00:00: 00 09-23 23:59 :00 No [id number] FLUID 2 tablet DAILY 2 tablet DAILY (route: oral) Med Classific ation: Cardiovas cular Therapy Agents Gas Relief (simethicon e) 125 mg capsule 2023-02 00:00: 09-23 23:59 :00 No [id number] GAS 1 capsule DAILY 1 capsule DAILY (route: oral) Med Classific ation: Gastroint estinal Therapy Agents hydralazine 10 mg tablet 2023-02 00:00: 00 09-23 23:59 :00 No [id number] HTN 1 tablet 2 TIMES DAILY 1 tablet 2 TIMES DAILY (route: oral) Med Classific ation: Cardiovas cular Therapy Agents levofloxaci n 750 mg tablet 2023-02 00:00: 00 01-02 23:59 :00 No [id number] ANTIBIOTICS 1 tablet EVERY 48 HOURS 1 tablet EVERY 48 HOURS (route: oral) Med Classific ation: Anti-Infe ctive Agents simvastatin 40 mg tablet 2023-02 00:00: 00 09-23 23:59 :00 No [id number] CHOLESTEROL 1 tablet DAILY 1 tablet DAILY (route: oral) Med Classific ation: Cardiovas cular Therapy Agents tamsulosin 0.4 mg capsule 2023-02 00:00: 00 09-23 23:59 :00 No [id number] BPH 1 capsule DAILY 1 capsule DAILY (route: oral) Med Classific ation: Genitouri nary Therapy pantoprazol e 40 mg tablet,alcon yed release 24 00:00: 00 11-07 00:00 :00 No [id number] REFLUX 1 tablet ONCE DAILY AT LEAST 30 MINUTES 1 tablet ONCE DAILY AT LEAST 30 MINUTES (route: oral) Med Classific ation: Gastroint estinal Therapy Agents famotidine 20 mg tablet 16 00:00: 00 11-07 00:00 :00 No [id number] REFLUX 1 tablet DAILY 1 tablet DAILY (route: oral) Med Classific ation: Gastroint estinal Therapy Agents furosemide 20 mg tablet 09-05 00:00: 00 Yes [id number] FLUID 2 tablet NEEDED 2 tablet NEEDED (route: oral) Med Classific ation: Cardiovas cular Therapy Agents allopurinol 100 mg tablet 10-03 00:00: 00 Yes [id number] GOUT 1 tablet 2 TIMES DAILY 1 tablet 2 TIMES DAILY (route: oral) Med Classific ation: Gout and Hyperuric emia Therapy amlodipine 5 mg tablet 10-03 00:00: 00 11-07 00:00 :00 No [id number] HEART 1 tablet 2 TIMES DAILY 1 tablet 2 TIMES DAILY (route: oral) Med Classific ation: Cardiovas cular Therapy Agents aspirin 81 mg chewable tablet 10-03 00:00: 00 11-07 00:00 :00 No [id number] HEART 1 tablet DAILY 1 tablet DAILY (route: oral) Med Classific ation: Hematolog ical Agents calcitriol 0.25 mcg capsule 10-03 00:00: 00 Yes [id number] SUPPLEMENT 1 capsule DIRECTED 1 capsule DIRECTED (route: oral) Med Classific ation: Electroly te Balance-N utritiona l Products clopidogrel 75 mg tablet 10-03 00:00: 00 Yes [id number] HEART 1 tablet DAILY 1 tablet DAILY (route: oral) Med Classific ation: Hematolog ical Agents gabapentin 300 mg capsule 10-03 00:00: 00 Yes [id number] NERVE PAIN 1 capsule 3 TIMES DAILY 1 capsule 3 TIMES DAILY (route: oral) Med Classific ation: Central Nervous System Agents hydralazine 100 mg tablet 10-03 00:00: 00 11-07 00:00 :00 No [id number] BLOOD PRESSURE 2 tablet 2 TIMES DAILY 2 tablet 2 TIMES DAILY (route: oral) Med Classific ation: Cardiovas cular Therapy Agents Novolin N FlexPen 100 unit/mL (3 mL) subcutaneou s insulin pen 10-03 00:00: 00 Yes [id number] DIABETES Per instruc tions 2 TIMES DAILY Per instructio ns 2 TIMES DAILY (route: subcutaneo us) Med Classific ation: Endocrine oxygen gas for inhalation 10-03 00:00: 00 Yes [id number] OXYGEN 2 Liter O2 - NIGHTLY 2 Liter O2 - NIGHTLY (route: inhalation ) Med Classific ation: Medical Supplies and Durable Medical Equipment (DME) simvastatin 40 mg tablet 10-03 00:00: 00 Yes [id number] CHOLESTEROL 1 tablet BEDTIME 1 tablet BEDTIME (route: oral) Med Classific ation: Cardiovas cular Therapy Agents tamsulosin 0.4 mg capsule 10-03 00:00: 00 Yes [id number] PROSTATE 1 capsule DAILY 1 capsule DAILY (route: oral) Med Classific ation: Genitouri nary Therapy carvedilol 3.125 mg tablet 11-07 00:00: 00 Yes [id number] HEART 1 tablet DAILY 1 tablet DAILY (route: oral) Med Classific ation: Cardiovas cular Therapy Agents Eliquis 2.5 mg tablet 11-07 00:00: 00 Yes [id number] HEART 1 tablet DAILY 1 tablet DAILY (route: oral) Med Classific ation: Hematolog ical Agents mecobalamin (vitamin B12) 1,000 mcg disintegrat ing tablet,subl ingual 11-07 00:00: 00 Yes [id number] SUPPLEMENT 1 tablet DAILY 1 tablet DAILY (route: sublingual ) Med Classific ation: Electroly te Balance-N utritiona l Products escitalopra m 5 mg tablet 2024-02 00:00: 00 Yes [id number] ANXIETY 1 tablet BEDTIME 1 tablet BEDTIME [...] CASTILLO HUGO RN TO OBSERVE AND ASSESS, RECONCILER/GROUP RESERVATIONS COORDINATOR TO OBSERVE FOR RISK FOR FALLS AND INSTRUCT IN FALL PREVENTION, HOME SAFETY, MEDICATION MANAGEMENT, INFECTION PREVENTION, AND NUTRITION MANAGEMENT. RN/RECONCILER/GROUP RESERVATIONS COORDINATOR NURSE MAY PERFORM O2 SATURATION LEVEL ON ADMISSION AND PRN FOR SOA FOR RN TO ASSESS/RECONCILER TO OBSERVE PATIENT, WITH NOTIFICATION TO THE PHYSICIAN IF SATURATION IS 90% IN THE ABSENCE OF MORE SPECIFIC PARAMETERS FROM THE PHYSICIAN. AGENCY MAY PERFORM A RESUMPTION OF CARE VISIT FOLLOWING ANY HOSPITAL ADMISSION. RN/RECONCILER/GROUP RESERVATIONS COORDINATOR TO MONITOR CO-MORBID CONDITIONS LISTED ON THE PLAN OF CARE AND ANY NEW CONDITIONS THAT PRESENT THEMSELVES DURING THIS EPISODE TO IDENTIFY CHANGES AND INTERVENE TO MINIMIZE COMPLICATIONS. [code = RN TO OBSERVE, ASSESS, EVALUATE, AND DEVELOP AN INDIVIDUALIZED PLAN OF CARE. AGENCY MAY ACCEPT ORDERS FROM CONSULTING PHYSICIANS DR CASTILLO HUGO RN TO OBSERVE AND ASSESS, RECONCILER/GROUP RESERVATIONS COORDINATOR TO OBSERVE FOR RISK FOR FALLS AND INSTRUCT IN FALL PREVENTION, HOME SAFETY, MEDICATION MANAGEMENT, INFECTION PREVENTION, AND NUTRITION MANAGEMENT. RN/RECONCILER/GROUP RESERVATIONS COORDINATOR NURSE MAY PERFORM O2 SATURATION LEVEL ON ADMISSION AND PRN FOR SOA FOR RN TO ASSESS/RECONCILER TO OBSERVE PATIENT, WITH NOTIFICATION TO THE PHYSICIAN IF SATURATION IS 90% IN THE ABSENCE OF MORE SPECIFIC PARAMETERS FROM THE PHYSICIAN. AGENCY MAY PERFORM A RESUMPTION OF CARE VISIT FOLLOWING ANY HOSPITAL ADMISSION. RN/RECONCILER/GROUP RESERVATIONS COORDINATOR TO MONITOR CO-MORBID CONDITIONS LISTED ON THE PLAN OF CARE AND ANY NEW CONDITIONS THAT PRESENT THEMSELVES DURING THIS EPISODE TO IDENTIFY CHANGES AND INTERVENE TO MINIMIZE COMPLICATIONS.] Future Scheduled Test RISK FOR H OSPITALIZATION; RN TO ASSESS/TEACH, GROUP RESERVATIONS COORDINATOR/RECONCILER TO OBSERVE/TEACH PATIENT/CAREGIVER ON RISK FOR HOSPITALIZATION/EMERGENCY ROOM VISITS, TEACH SIGNS AND SYMPTOMS THAT PUT PATIENT AT RISK, WHEN TO NOTIFY NURSE/PHYSICIAN OF COMPLICATIONS/DECLINE, AND WHEN TO CALL 911. [code = RISK FOR HOSPITALIZATION; RN TO ASSESS/TEACH, GROUP RESERVATIONS COORDINATOR/RECONCILER TO OBSERVE/TEACH PATIENT/CAREGIVER ON RISK FOR HOSPITALIZATION/EMERGENCY ROOM VISITS, TEACH SIGNS AND SYMPTOMS THAT PUT PATIENT AT RISK, WHEN TO NOTIFY NURSE/PHYSICIAN OF COMPLICATIONS/DECLINE, AND WHEN TO CALL 911.] Future Scheduled Test CARDIOVASC ULAR SYSTEM; RN TO ASSESS/TEACH, RECONCILER/GROUP RESERVATIONS COORDINATOR TO OBSERVE/TEACH RELATED TO ALTERED CARDIOVASCULAR STATUS TO MINIMIZE COMPLICATIONS AND REDUCE HOSPITALIZATION. [code = CARDIOVASCULAR SYSTEM; RN TO ASSESS/TEACH, RECONCILER/GROUP RESERVATIONS COORDINATOR TO OBSERVE/TEACH RELATED TO ALTERED CARDIOVASCULAR STATUS TO MINIMIZE COMPLICATIONS AND REDUCE HOSPITALIZATION.] Future Scheduled Test HEART FAIL URE; RN TO ASSESS/TEACH, RECONCILER/GROUP RESERVATIONS COORDINATOR TO OBSERVE/TEACH CARDIOPULMONARY SYSTEM TO IDENTIFY SIGNS [...] [code = HEART FAILURE; RN TO ASSESS/TEACH, RECONCILER/GROUP RESERVATIONS COORDINATOR TO OBSERVE/TEACH CARDIOPULMONARY SYSTEM TO IDENTIFY SIGNS [...] ON MANAGEMENT; RN TO ASSESS AND TEACH, RECONCILER/GROUP RESERVATIONS COORDINATOR TO OBSERVE AND TEACH WARNING SIGNS AND SYMPTOMS TO AVOID HOSPITALIZATION. [code = HYPERTENSION MANAGEMENT; RN TO ASSESS AND TEACH, RECONCILER/GROUP RESERVATIONS COORDINATOR TO OBSERVE AND TEACH WARNING SIGNS AND SYMPTOMS TO AVOID HOSPITALIZATION.] Future Scheduled Test ARRHYTHMIA MANAGEMENT; RN TO ASSESS AND TEACH, RECONCILER/GROUP RESERVATIONS COORDINATOR TO OBSERVE AND TEACH WARNING SIGNS AND SYMPTOMS TO AVOID HOSPITALIZATION. [code = ARRHYTHMIA MANAGEMENT; RN TO ASSESS AND TEACH, RECONCILER/GROUP RESERVATIONS COORDINATOR TO OBSERVE AND TEACH WARNING SIGNS AND SYMPTOMS TO AVOID HOSPITALIZATION.] Future Scheduled Test RESPIRATOR Y SYSTEM MANAGEMENT; RN TO ASSESS AND TEACH, RECONCILER/GROUP RESERVATIONS COORDINATOR TO OBSERVE AND TEACH RELATED TO ALTERED RESPIRATORY STATUS TO MINIMIZE COMPLICATIONS AND REDUCE HOSPITALIZATION. [code = RESPIRATORY SYSTEM MANAGEMENT; RN TO ASSESS AND TEACH, RECONCILER/GROUP RESERVATIONS COORDINATOR TO OBSERVE AND TEACH RELATED TO ALTERED RESPIRATORY STATUS TO MINIMIZE COMPLICATIONS AND REDUCE HOSPITALIZATION.] Future Scheduled Test OXYGEN THE RAPY; RN/RECONCILER/GROUP RESERVATIONS COORDINATOR TO INSTRUCT ON OXYGEN MANAGEMENT INCLUDING: ADMINISTRATION AT 2 L/MIN VIA NC PRN, CARE OF EQUIPMENT AND SAFETY. [code = OXYGEN THERAPY; RN/RECONCILER/GROUP RESERVATIONS COORDINATOR TO INSTRUCT ON OXYGEN MANAGEMENT INCLUDING: ADMINISTRATION AT 2 L/MIN VIA NC PRN, CARE OF EQUIPMENT AND SAFETY.] Future Scheduled Test PAIN MANAG EMENT; RN TO ASSESS AND TEACH, GROUP RESERVATIONS COORDINATOR/RECONCILER TO OBSERVE AND TEACH AND PROVIDE EDUCATION ON PAIN MANAGEMENT TECHNIQUES. [code = PAIN MANAGEMENT; RN TO ASSESS AND TEACH, GROUP RESERVATIONS COORDINATOR/RECONCILER TO OBSERVE AND TEACH AND PROVIDE EDUCATION ON PAIN MANAGEMENT TECHNIQUES.] Future Scheduled Test DIABETES M ANAGEMENT; RN TO ASSESS AND TEACH, GROUP RESERVATIONS COORDINATOR/RECONCILER TO OBSERVE AND TEACH INSTRUCTIONS OF DIABETIC CARE TO INCLUDE: DIET LOW CARB, SKIN CARE, SIGNS AND SYMPTOMS OF HYPO/HYPERGLYCEMIA, PROPER ADMINISTRATION OF DIABETIC MEDICATION. RN/GROUP RESERVATIONS COORDINATOR/RECONCILER TO INSTRUCT ON DIABETIC FOOT CARE AND MONITOR FOR SKIN LESIONS ON LOWER EXTREMITIES. BLOOD GLUCOSE TESTING DAILY FREQ. RN TO ASSESS AND TEACH, GROUP RESERVATIONS COORDINATOR/RECONCILER TO OBSERVE AND TEACH PATIENT/CAREGIVER ABILITY TO PERFORM AND RECORD BLOOD GLUCOSE TESTING ORDERED AND TO REPORT ABNORMAL FINDINGS TO PHYSICIAN. RN/GROUP RESERVATIONS COORDINATOR/RECONCILER MAY PERFORM BLOOD GLUCOSE TEST NEEDED. RN/GROUP RESERVATIONS COORDINATOR/RECONCILER TO REPORT TO PHYSICIAN BLOOD GLUCOSE READINGS GREATER THAN 400 OR LESS THAN 60. RN/GROUP RESERVATIONS COORDINATOR/RECONCILER TO INSTRUCT PATIENT ON IMPORTANCE OF HGBA1C MONITORING, KIDNEY FUNCTION TEST, EYE AND FOOT EXAMS. [code = DIABETES MANAGEMENT; RN TO ASSESS AND TEACH, GROUP RESERVATIONS COORDINATOR/RECONCILER TO OBSERVE AND TEACH INSTRUCTIONS OF DIABETIC CARE TO INCLUDE: DIET LOW CARB, SKIN CARE, SIGNS AND SYMPTOMS OF HYPO/HYPERGLYCEMIA, PROPER ADMINISTRATION OF DIABETIC MEDICATION. RN/GROUP RESERVATIONS COORDINATOR/RECONCILER TO INSTRUCT ON DIABETIC FOOT CARE AND MONITOR FOR SKIN LESIONS ON LOWER EXTREMITIES. BLOOD GLUCOSE TESTING DAILY FREQ. RN TO ASSESS AND TEACH, GROUP RESERVATIONS COORDINATOR/RECONCILER TO OBSERVE AND TEACH PATIENT/CAREGIVER ABILITY TO PERFORM AND RECORD BLOOD GLUCOSE TESTING ORDERED AND TO REPORT ABNORMAL FINDINGS TO PHYSICIAN. RN/GROUP RESERVATIONS COORDINATOR/RECONCILER MAY PERFORM BLOOD GLUCOSE TEST NEEDED. RN/GROUP RESERVATIONS COORDINATOR/RECONCILER TO REPORT TO PHYSICIAN BLOOD GLUCOSE READINGS GREATER THAN 400 OR LESS THAN 60. RN/GROUP RESERVATIONS COORDINATOR/RECONCILER TO INSTRUCT PATIENT ON IMPORTANCE OF HGBA1C MONITORING, KIDNEY FUNCTION TEST, EYE AND FOOT EXAMS.] Future Scheduled Test FALL REDUC TION MANAGEMENT; RN TO ASSESS AND OBSERVE, RECONCILER/GROUP RESERVATIONS COORDINATOR TO OBSERVE FALL RISK FACTORS AND EDUCATE PATIENT/CAREGIVER ON STRATEGIES TO MINIMIZE THE RISK OF FALLING. [code = FALL REDUCTION MANAGEMENT; RN TO ASSESS AND OBSERVE, RECONCILER/GROUP RESERVATIONS COORDINATOR TO OBSERVE FALL RISK FACTORS AND EDUCATE [...] Scheduled Test PRN VISITS ; NUMBER OF RN/RECONCILER/GROUP RESERVATIONS COORDINATOR VISITS: 2 RN/RECONCILER/GROUP RESERVATIONS COORDINATOR TO PERFORM: ASSESSMENT FOR THE FOLLOWING REASONS: HF, FALLS, HTN ETC [code = PRN VISITS; NUMBER OF RN/RECONCILER/GROUP RESERVATIONS COORDINATOR VISITS: 2 RN/RECONCILER/GROUP RESERVATIONS COORDINATOR TO PERFORM: ASSESSMENT FOR THE FOLLOWING REASONS: HF, FALLS, HTN ETC] Future Scheduled Test AGENCY MAY PERFORM A RESUMPTION OF CARE VISIT FOLLOWING ANY HOSPITAL ADMISSION. PT TO EVALUATE, OBSERVE / ASSESS, AND MONITOR, DIE CASTING MACHINE SETTER TO OBSERVE AND MONITOR, PROVIDE SKILLED THERAPEUTIC INTERVENTION, ACTIVITY, EDUCATION, AND TRAINING TO ADDRESS; PT/DIE CASTING MACHINE SETTER TO PROVIDE GAIT TRAINING FOR IMPROVED MOBILITY AND /OR TO NORMALIZE GAIT PATTERN NEUROMUSCULAR RE-EDUCATION / BALANCE / POSTURAL CONTROL (PT) THERAPEUTIC EXERCISES AND ESTABLISHING A HOME EXERCISE PROGRAM (PT/DIE CASTING MACHINE SETTER) PT/DIE CASTING MACHINE SETTER TO PROVIDE STAIR TRAINING SIT TO/FROM STAND TRANSFERS (PT/DIE CASTING MACHINE SETTER) PT TO ASSESS / DIE CASTING MACHINE SETTER TO MONITOR FOR AND REPORT EARLY SIGNS OF ANTICOAGULANT TOXICITY TO THE PHYSICIAN AND/OR THE RN CLINICAL HEALTHCARE ADMINISTRATION INTERN FOR PHYSICIAN NOTIFICATION AND TO PROVIDE PATIENT/CAREGIVER EDUCATION ON ANTICOAGULANT THERAPY PT / DIE CASTING MACHINE SETTER TO MONITOR AND EDUCATE ON OXYGEN SATURATION DURING ADLS/IADLS, NOTIFY PHYSICIAN AND/OR THE RN CLINICAL HEALTHCARE ADMINISTRATION INTERN FOR PHYSICIAN NOTIFICATION AND IF O2 SATS BELOW PHYSICIAN ORDERED PARAMETERS AFTER 10 MIN OF REST PT TO ASSESS / DIE CASTING MACHINE SETTER TO MONITOR CARDIO/RESPIRATORY SYSTEM; AND NOTIFY THE PHYSICIAN AND/OR THE RN CLINICAL HEALTHCARE ADMINISTRATION INTERN FOR PHYSICIAN NOTIFICATION FOR EARLY SIGNS AND SYMPTOMS OF EXACERBATION OR DETERIORATION. [code = AGENCY MAY PERFORM A RESUMPTION OF CARE VISIT FOLLOWING ANY HOSPITAL ADMISSION. PT TO EVALUATE, OBSERVE / ASSESS, AND MONITOR, DIE CASTING MACHINE SETTER TO OBSERVE AND MONITOR, PROVIDE SKILLED THERAPEUTIC INTERVENTION, ACTIVITY, EDUCATION, AND TRAINING TO ADDRESS; PT/DIE CASTING MACHINE SETTER TO PROVIDE GAIT TRAINING FOR IMPROVED MOBILITY AND /OR TO NORMALIZE GAIT PATTERN NEUROMUSCULAR RE-EDUCATION / BALANCE / POSTURAL CONTROL (PT) THERAPEUTIC EXERCISES AND ESTABLISHING A HOME EXERCISE PROGRAM (PT/DIE CASTING MACHINE SETTER) PT/DIE CASTING MACHINE SETTER TO PROVIDE STAIR TRAINING SIT TO/FROM STAND TRANSFERS (PT/DIE CASTING MACHINE SETTER) PT TO ASSESS / DIE CASTING MACHINE SETTER TO MONITOR FOR AND REPORT EARLY SIGNS OF ANTICOAGULANT TOXICITY TO THE PHYSICIAN AND/OR THE RN CLINICAL HEALTHCARE ADMINISTRATION INTERN FOR PHYSICIAN NOTIFICATION AND TO PROVIDE PATIENT/CAREGIVER EDUCATION ON ANTICOAGULANT THERAPY PT / DIE CASTING MACHINE SETTER TO MONITOR AND EDUCATE ON OXYGEN SATURATION DURING ADLS/IADLS, NOTIFY PHYSICIAN AND/OR THE RN CLINICAL HEALTHCARE ADMINISTRATION INTERN FOR PHYSICIAN NOTIFICATION AND IF O2 SATS BELOW PHYSICIAN ORDERED PARAMETERS AFTER 10 MIN OF REST PT TO ASSESS / DIE CASTING MACHINE SETTER TO MONITOR CARDIO/RESPIRATORY SYSTEM; AND NOTIFY THE PHYSICIAN AND/OR THE RN CLINICAL HEALTHCARE ADMINISTRATION INTERN FOR PHYSICIAN NOTIFICATION FOR EARLY SIGNS AND [...] SAFETY AND FUNCTIONAL INDEPENDENCE IN HOME BATHING/SHOWERING (OT/SERVICE UNIT OPERATOR) DRESSING (OT/SERVICE UNIT OPERATOR) ACTIVITIES OF DAILY LIVING (OT/SERVICE UNIT OPERATOR) TOILET TRANSFER (OT/KM) BATH/SHOWER TRANSFER (OT/SERVICE UNIT OPERATOR) POSTURAL CONTROL/BALANCE (OT/KM) THERAPEUTIC EXERCISE (OT/KM) OT/KM TO MONITOR FOR AND REPORT EARLY SIGNS OF ANTICOAGULANT TOXICITY TO THE PHYSICIAN AND/OR THE RN CLINICAL HEALTHCARE ADMINISTRATION INTERN FOR PHYSICIAN NOTIFICATION AND TO PROVIDE PATIENT/CAREGIVER EDUCATION ON ANTICOAGULANT THERAPY OT TO ASSESS / SERVICE UNIT OPERATOR TO MONITOR CARDIO/RESPIRATORY SYSTEM; AND NOTIFY THE PHYSICIAN AND/OR THE RN CLINICAL HEALTHCARE ADMINISTRATION INTERN FOR PHYSICIAN NOTIFICATION FOR EARLY SIGNS AND SYMPTOMS OF EXACERBATION OR DETERORATION [code = AGENCY MAY PERFORM A RESUMPTION OF CARE VISIT FOLLOWING ANY HOSPITAL ADMISSION. OT TO EVALUATE, OBSERVE / ASSESS, AND MONITOR, SERVICE UNIT OPERATOR TO OBSERVE AND MONITOR, PROVIDE SKILLED THERAPEUTIC INTERVENTION, ACTIVITY, EDUCATION, AND TRAINING TO ADDRESS ADLS/IADLS, ADAPTIVE EQUIPMENT, STRENGTHENING, BALANCE, AND FUNCTIONAL TRANSFERS TO MAXIMIZE SAFETY AND FUNCTIONAL INDEPENDENCE IN HOME BATHING/SHOWERING (OT/KM) DRESSING (OT/KM) ACTIVITIES OF DAILY LIVING (OT/KM) TOILET TRANSFER (OT/KM) BATH/SHOWER TRANSFER (OT/KM) POSTURAL CONTROL/BALANCE (OT/KM) THERAPEUTIC EXERCISE (OT/SERVICE UNIT OPERATOR) OT/SERVICE UNIT OPERATOR TO MONITOR FOR AND REPORT EARLY SIGNS OF ANTICOAGULANT TOXICITY TO THE PHYSICIAN AND/OR THE RN CLINICAL HEALTHCARE ADMINISTRATION INTERN FOR PHYSICIAN NOTIFICATION AND TO PROVIDE PATIENT/CAREGIVER EDUCATION ON ANTICOAGULANT THERAPY OT TO ASSESS / KM TO MONITOR CARDIO/RESPIRATORY SYSTEM; AND NOTIFY THE PHYSICIAN AND/OR THE RN CLINICAL HEALTHCARE ADMINISTRATION INTERN FOR PHYSICIAN NOTIFICATION FOR EARLY SIGNS AND [...] End Date/Time Encounter Type Admission Type Attending [facility] Care Department Encounter ID Discharge Date Discharge Status Discharge Condition Discharge Reason Percent Goals Met 2024-11-07 00:00:00 2025-01-03 00:00:00 Outpatient TARYN ESPINAL [facility] [id number] 2025-01-03 00:00:00 DISCHARGE TO HOME OR SELF CARE INDEPENDEN T IN THE HOME HH - GOALS MET 73.53
--- OUTSIDE RECORDS SUMMARY | 2025-01-11 22:31 | XMS_ITS | Encounter Summary ---
Author Organization Healthcare Address [address] [place] [address] Care Team Providers Care Professional System Administrator Name Role Phone Christopher Yadav MD Primary Care Provider [phone] Reason for Visit * Reason Comments Suicidal * Auth/Cert (Routine) Specialty Diagnoses / Procedures Referred By Contac t Referred To Contact Diagnoses Suicidal ideation Depressive disorder Unspecified mood (affective) disorder ([facility]) Davina Kang MD [address] [place] [address] Phone: tel: fax: [facility] [address] [place] [address] Phone: tel: Referral ID Status Reason Start Date Expiration Date Visits Re quested Visits Authorized [id number] 1 1 Encounter Details Date Type Department Care Team (Latest Contact Info) Description 01/11/2025 10:31 PM EST - 01/16/2025 1:40 PM [facility] Hospital Encounter [facility] [address] [place] [address] Davina Kang MD [address] [place] [address] Davina Nicholas DO [address] [place] [address] Depressive disorder (Primary Dx); Suicidal ideation Discharge Disposition: Home or Self Care Social History Tobacco Use Types Packs/Day Years Used Date Smoking Tobacco: Former Cigarettes Smokeless Tobacco: Never Alcohol Use Standard Drinks/Week Comments Not Currently 0 (1 standard drink = 0.6 oz pure alcohol) Alcoholic Drinks/day: Former consumption of alcohol PHQ-2 Answer Date Recorded Patient Health Questionnaire-2 Score 3 01/11/2025 PHQ-9 Answer Date Recorded Patient Health Questionnaire-9 Score 12 01/11/2025 Social Connection and Isolation Panel Answer Date Recorded In a typical week, how many times do you talk on the phone with family, friends, or neighbors? More than three times a week 01/12/2025 How often do you get togethe r with friends or relatives? More than three times a week 01/12/2025 How often do you attend chur or sabianist services? Never 01/12/2025 Do you belong to any clubs o r organizations such as muslim groups, unions, fraternal or athletic groups, or school groups? No 01/12/2025 How often do you attend meet ings of the clubs or organizations you belong to? Never 01/12/2025 Are you , , di vorced, , never , or living with a partner? 01/12/2025 AUDIT-C Answer Date Recorded Q1: How often do you have a drink containing alcohol? Never 01/12/2025 Q2: How many drinks containi ng alcohol do you have on a typical day when you are drinking? Patient does not drink Q3: How often do you have si x or more drinks on one occasion? Never 01/12/2025 [facility]ational Stress Questionnaire Answer Date Recorded Do you feel stress - tense, restless, nervous, or anxious, or unable to sleep at night because your mind is troubled all the time - these days? Not at all 01/12/2025 Exercise Vital Sign Answer Date Recorde d On average, how many days pe r week do you engage in moderate to strenuous exercise (like a brisk walk)? 0 days Minutes of Exercise per Session Not on file 01/12/2025 Hunger Vital Sign Answer Date Recorded Within the past 12 months, y ou worried that your food would run out before you got the money to buy more. Never true 11/15/20 25 Within the past 12 months, t he food you bought just didn't last and you didn't have money to get more. Never true 01/12/2025 PRAPARE - Transportation Answer Date Re corded In the past 12 months, has l ack of transportation kept you from medical appointments or from getting medications? No 12/29 In the past 12 months, has l ack of transportation kept you from meetings, work, or from getting things needed for daily living? No 01/12/2025 Housing Stability Vital Sign Answer Jarvis e Recorded In the last 12 months, was t here a time when you were not able to pay the mortgage or rent on time? No 01/12/2025 Number of Times Moved in the Last Year Not on fi le 01/12/2025 At any time in the past 12 m onths, were you homeless or living in a residential (including now)? No 01/12/2025 [facility] Utilities Answer Date Recorded In the past 12 months has th e electric, gas, oil, or water company threatened to shut off services in your home? No 01/12/2025 Sex and Gender Information Value Date Recorded Sex Assigned at Male 03/08/2024 5:20 AM EST Legal Sex Male 6:57 PM EDT Gender Identity Not on file Sexual Orientation Not on file documented as of this encounter Last Filed Vital Signs Vital Sign Reading Time Taken Comments Blood Pressure 133/79 01/16/2025 6:10 AM EST Pulse 55 01/16/2025 6:10 AM EST Temperature 36.7 C (98.1 F) 01/16/2025 6:10 AM EST Respiratory Rate - - Oxygen Saturation 96% 01/16/2025 6:10 AM EST Inhaled Oxygen Concentration - - Weight 111 kg (245 lb) 01/14/2025 5:32 AM EST Height 182.9 cm (6') 01/12/2025 9:00 PM EST Body Mass Index 33.23 01/12/2025 9:00 PM EST documented in this encounter Functional Status * AUDIT-C Score Answer Date of Assessment Author 0 01/12/2025 2:48 PM EST Leif Cordero * Question Answer Date of Assessment Author Q1: How often do you have a drink containing alcohol? Never 01/12/2025 2:48 PM EST Leif Vicente Q2: How many drinks containing alcohol do you have on a typical day when you are drinking? Patient does not drink 01/12/2025 2:48 PM EST Leif Vicente Q3: How often do you have six or more drinks on one occasion? Never 01/12/2025 2:48 PM EST Leif Vicente * Question Answer Date of Assessment Author Scale Used Chuy 01/16/2025 12:00 PM EST Ness Montez RN * Over the past 2 weeks, how often have you been bothered by any of the following problems? Question Answer Date of Assessment Author Patient Health Questionnaire -2 Score 3 01/11/2025 9:45 PM EST Mikey Constantino RN * Calculated C-SSRS Risk Score (Lifetime/Recent) Answer Date of Assessment Author High Risk 01/12/2025 4:38 PM EST Cm RN * If you checked off any problems on this questionnaire, Question Answer Date of Assessment Author How difficult have these problems made it for you to do your work, take care of things at home, or get along with other people? Very difficult 01/11/2025 9:45 PM EST Alisha Constantino RN * Suicidal Ideation Question Answer Date of Assessment Author 1. Wish to be (Lifetime) Yes 01/12/2025 4:38 PM Jessie Carvalho RN 2. Non-Specific Active Suici nancy Thoughts (Lifetime) Yes 01/12/2025 4:38 PM EST Jessie Torres RN 3. Active Suicidal Ideation with any Methods (Not Plan) Without Intent to Act (Lifetime) Yes 01/12/2025 4:38 PM EST Jessie Torres RN 4. Active Suicidal Ideation with Some Intent to Act, Without Specific Plan (Lifetime) Yes 01/12/2025 4:38 PM EST Jessie Torres RN 5. Active Suicidal Ideation with Specific Plan and Intent (Lifetime) Yes 01/12/2025 4:38 PM EST Jessie Arredondo RN 1. Wish to be (Past 1 Month) Yes 025 4:38 PM EST Jessie Trores RN 2. Non-Specific Active Suici nancy Thoughts (Past 1 Month) Yes 01/12/2025 4:38 PM EST Brian, Jessie, RN 3. Active Suicidal Ideation with any Methods (Not Plan) Without Intent to Act (Past 1 Month) Yes 01/12/2025 4:38 PM EST BrianJessie, RN 4. Active Suicidal Ideation with Some Intent to Act, Without Specific Plan (Past 1 Month) Yes 01/12/2025 4:38 PM EST BrianJessie RN 5. Active Suicidal Ideation with Specific Plan and Intent (Past 1 Month) Yes 01/12/2025 4:38 PM EST Brian, Jessie, RN * Intensity of Ideation Question Answer Date of Assessment Author Most Severe Ideation Rating (Lifetime) 4 4:38 PM EST Brian, Jessie, RN Frequency (Lifetime) 1 01/12/2025 4:[address] Brian, Jessie, RN Duration (Lifetime) 1 01/12/2025 4:38 PM ES T Brian, Jessie, RN Controllability (Lifetime) 1 01/12/2025 4:3 8 PM EST Brian, Jessie, RN Deterrents (Lifetime) 0 01/12/2025 4:38 PM EST Brian, Jessie, RN Reasons for Ideation (Lifetime) 5 4:38 PM EST Brian, Jessie, RN Most Severe Ideation Rating (Past 1 Month) 4 01/12/2025 4:38 PM EST Brian, Jessie, RN Frequency (Past 1 Month) 4 01/12/2025 4:38 PM EST Brian, Jessie, RN Duration (Past 1 Month) 1 01/12/2025 4:38 P M EST Brian, Jessie, RN Controllability (Past 1 Month) 4 01/12/2025 4:38 PM EST Brian, Jessie, RN Deterrents (Past 1 Month) 0 01/12/2025 4:38 PM EST Brian, Jessie, RN Reasons for Ideation (Past 1 Month) 5 01/12 4:38 PM EST Brian, Jessie, RN * Suicidal Behavior Question Answer Date of Assessment Author Actual Attempt (Lifetime) No 01/12/2025 4:38 PM EST BrianHeathera, RN Has subject engaged in non-s uicidal self-injurious behavior? (Lifetime) No 01/12/2025 4:38 PM EST S Jessie urena RN Interrupted Attempts (Lifetime) No 4:38 PM Jessie Carvalho RN Aborted or Self-Interrupted Attempt (Lifetime) No 01/12/2025 4:38 PM Jessie Carvalho RN Preparatory Acts or Behavior (Lifetime) No 01/12/2025 4:38 PM Jessie Carvalho RN * Over the past 2 weeks, how often have you been bothered by any of the following problems? Question Answer Date of Assessment Author Little interest or pleasure in doing things Several days 01/11/2025 9:45 PM Alisha Kramer RN Feeling down, depressed, or hopeless More than half the days 01/11/2025 9:45 PM Mikey Kramer RN Trouble falling or staying asleep, or sleeping too much Several days 01/11/2025 9:45 PM Mikey Kramer RN Feeling tired or having little energy Several days 01/11/2025 9:45 PM Mikey Kramer RN Poor appetite or overeating More than half the days 01/11/2025 9:45 PM Mikey Kramer RN Feeling bad about yourself - or that you are a failure or have let yourself or your family down More than half the days 01/11/2025 9:45 PM Mikey Kramer RN Trouble concentrating on things, such as reading the newspaper or watching television Several days 01/11/2025 9:45 PM Mikey Kramer RN Moving or speaking so slowly that other people could have noticed. Or the opposite - being so fidgety or restless that you have been moving around a lot more than usual Not at all 01/11/2025 9:45 PM Mikey Kramer RN Thoughts that you would be better off or hurting yourself in some way More than half the days 01/11/2025 9:45 PM Mikey Kramer RN Patient Health Questionnaire-9 Score 12 01/11/2025 9:45 PM Mikey Kramer RN * Question Answer Date of Assessment Author 6. Suicidal Behavior (Lifetime) No 9:53 PM Mikey Kramer RN documented as of this encounter Mental Status * Question Answer Entry Date Author Scale Used hCuy 01/16/2025 12:00 PM Ness Olmedo RN documented in this encounter Medications at Time of Discharge allopurinol (Zyloprim) 100 MG tabletIndications:H yperuricemia Take 1 tablet by mouth 2 times a day. 07/20/2016 apixaban (Eliquis) 2.5 MG tabletIndications:A trial Fibrillation Take 1 tablet by mouth 2 times a day. calcitriol (Rocaltrol) 0.25 MCG capsuleIndications: Hypocalcemia Take 1 capsule by mouth 3 times a week. 07/29/2023 carvedilol (Coreg) 3.125 MG tabletIndications:H ypertension 1 tablet. Patient takes only if blood pressure is above 120 clopidogrel (Plavix) 75 MG tabletIndications:A cute Coronary Syndrome Take 1 tablet by mouth nightly. 03/16/2016 cyanocobalamin 1000 MCG tabletIndications:V itamin B12 Deficiency Take 1 tablet by mouth 1 time each day. empagliflozin (Jardiance) 10 MGIndications:Left Systolic Heart Failure Take 1 tablet by mouth daily. escitalopram (Lexapro) 10 MG tabletIndications:M ajor Depressive Disorder Take 1 tablet by mouth daily. 30 tablet 01/16/2025 furosemide (Lasix) 20 MG tabletIndications:E eagle Take 1 tablet by mouth as needed (swelling). 12/20/2022 gabapentin (Neurontin) 300 MG capsuleIndications: Neuropathic Pain 1 capsule in the morning and 2 capsules at night 01/30/2019 hydrALAZINE (Apresoline) 10 MG tabletIndications:H ypertension Take 1 tablet by mouth twice a day. 07/27/2023 insulin NPH-insulin regular (Novolin 70-30,Humulin 70-30) (70-30) 100 UNIT/ML injection vialIndications:Typ e 2 Diabetes Mellitus Inject 15 Units under the skin 2 times a day before meals. 04/20/2016 pancrelipase, Giy-Ohjp-Qwvv, (Creon) 33296-021408 units capsule delayed-release particles capsuleIndications: Pancreatic Insufficiency Take 1 capsule by mouth 3 times a day with meals. pantoprazole (Protonix) 40 MG EC tabletIndications:H eartburn Take 1 tablet by mouth daily before breakfast. Do not crush, chew, or split. polyethylene glycol (Miralax) 17 g packetIndications:C onstipation Take 17 g by mouth 1 time each day. predniSONE (Deltasone) 5 MG tabletIndications:M alignant Neoplasm of Prostate Take 1 tablet by mouth daily. simethicone (Mylicon,Gas-X) 125 MG capsuleIndications: Flatulence Take 1 capsule by mouth nightly. 01/30/2019 simvastatin (Zocor) 40 MG tabletIndications:H yperlipidemia Take 1 tablet (40 mg) by mouth every night. 04/15/2016 tamsulosin (Flomax) 0.4 MG 24 hr capsuleIndications: Benign Prostatic Hypertrophy 08/18/2023 documented as of this encounter Miscellaneous Notes * Nursing Note - Ness Barber RN - 01/16/2025 3:19 PM EST Patient discharged from unit at 1340 accompanied by [facility] staff - ambulatory to [facility] to meet son. Patient denies current SI/HI/AVH at time of discharge. Patient's belongings/valuables returned and patient verified return of belongings. Safety plan, medications, discharge appointment, crisis information, and discharge summary reviewed with the patient. Patient was offered family/significant other involvement which patient declined. Patient was given the opportunity to ask questions and verbally stated understanding of all information reviewed. Discharge review took place at nurses station. Pt understands that they can return to [facility] ED at any time for further psychiatric evaluation or call the suicide hotline which was provided in paperwork. * Care Plan - Ness Barber RN - 01/16/2025 3:17 PM EST Problem: Adult Behavioral Health Plan of Care Goal: Plan of Care Review Outcome: Met Flowsheets (Taken 01/16/2025 1513) Progress: improving Patient Agreement with Plan of Care: agrees Plan of Care Reviewed With: patient Goal: Patient-Specific Goal (Individualization) Outcome: Met Flowsheets Taken 01/16/20251512 Patient Personal Strengths: expressive of emotions expressive of needs medication/treatment adherence positive attitude no history of violence Patient Vulnerabilities: lacks insight into illness poor physical health Taken 01/16/2025 1233 Patient/Family-Specific Goals (Include Timeframe): Patient will remain free from falls throughout shift until discharge Individualized Care Needs: Patient safety Discharge patient Anxieties, Fears or Concerns: Patient anxious to be discharged today Goal: Adheres to Safety Considerations for Self and Others Outcome: Met Flowsheets (Taken 01/16/20251512) Adheres to Safety Considerations for Self and Others: achieves outcome Intervention: Develop and Maintain Individualized Safety Plan Flowsheets (Taken 01/16/20251512) Safety Measures: environmental rounds completed monitored by video safety rounds completed Goal: Optimized Coping Skills in Response to Life Stressors Outcome: Met Flowsheets (Taken 01/16/20251512) Optimized Coping Skills in Response to Life Stressors: achieves outcome Intervention: Promote Effective Coping Strategies Flowsheets (Taken 01/16/20251512) Supportive Measures: active listening utilized relaxation techniques promoted verbalization of feelings encouraged Goal: Develops/Participates in Therapeutic [place] to Support Successful Transition Outcome: Met Flowsheets (Taken 01/16/20251512) Develops/Participates in Therapeutic [place] to Support Successful Transition: achieves outcome Intervention: Foster Therapeutic [place] Flowsheets (Taken 01/16/20251512) Trust Relationship/Rapport: care explained questions answered questions encouraged thoughts/feelings acknowledged Intervention: Mutually Develop Transition Plan Flowsheets (Taken 01/16/20251512) Outpatient/Agency/Support Group Needs: outpatient psychiatric care (specify) outpatient counseling Transition Support: community resources reviewed Transportation Anticipated: family or friend will provide Anticipated Discharge Disposition: home or self-care Transportation Concerns: none Current Discharge Risk: psychiatric illness Concerns to be Addressed: mental health physical/sexual safety Readmission Within the Last 30 Days: no previous admission in last 30 days Patient/Family Anticipated Services at Transition: none Patient/Family Anticipates Transition to: home with family Offered/Gave Vendor List: no Problem: Suicide Risk Goal: Absence of Self-Harm Outcome: Met Intervention: Assess Risk to Self and Maintain Safety Flowsheets (Taken 01/16/2025 1513) Behavior Management: boundaries reinforced Enhanced Safety Measures: monitored by video avionics safety inspector at bedside education provided Self-Harm Prevention: environmental self-harm risks assessed environment modified for self-harm risk Intervention: Promote Psychosocial Wellbeing Flowsheets (Taken 01/16/2025 151) Supportive Measures: active listening utilized relaxation techniques promoted verbalization of feelings encouraged Family/Support System Care: self-care encouraged Sleep/Rest Enhancement: regular sleep/rest pattern promoted Intervention: Establish Safety Plan and Continuity of Care Flowsheets (Taken 01/16/2025 151) Safe Transition Promotion: protective factors promoted suicide hotline information given to patient suicide hotline number to support person Problem: Fall Injury Risk Goal: Absence of Fall and Fall-Related Injury Outcome: Met Intervention: Identify and Manage Contributors Flowsheets (Taken 01/16/20251512) Medication Review/Management: medications reviewed Self-Care Promotion: BADL personal objects within reach adaptive equipment use encouraged Intervention: Promote Injury-Free Environment Flowsheets (Taken 01/16/20251512) Safety Promotion/Fall Prevention: assistive device/personal items within reach activity supervised nonskid shoes/slippers when out of bed mobility aid in reach safety round/check completed * Group Note - Lenora Vick - 01/16/2025 12:09 PM EST Group Topic: Leisure Skills Group Date: 01/16/2025 Start Time: 1100 End Time: 1200 Facilitators: Lenora Vick Department: [facility] Inpatient Psychiatry Number of Participants: 5 Group Focus: coping skills and leisure skills Treatment Modality: Leisure Development Interventions utilized were leisure development Purpose: enhance coping skills Name: Braeden Palmer Date of : 1940 MR: [id number] Refused Patients Problems: Patient Active Problem List Diagnosis Obesity (BMI 35.0-39.9 without comorbidity) Unspecified mood (affective) disorder (CMS/HCC) * Discharge Summary - Gabi Turcios MBBS - 01/16/2025 11:15 AM EST Images from the original note were not included. [facility] Discharge Summary Admit Date/Time: 01/11/2025 10:31 PM Admitting Attending: Davina Kang Discharge Date: 01/16/25 Length of Stay: 4 Days Discharge Attending Physician: Davina Nicholas DO PCP name and Address: Christopher Yadav MD [address] / [place] [address] Referring provider name and address: No referring provider defined for this encounter. Chief Concern and Brief History of Present Illness Patient is a 84 y.o. male with a reported history of CHF, CKD, HTN, Type II DM, CAD, Prostate Cancer, Hyperlipidemia, and A-Fib who presented to [facility] with active suicidal ideation and multiple attempts to gain lethal means. [facility] for further management of SI. Per [facility] Documentation: Patient reported having SI that has worsened over the past month. Patient endorsed a plan of using a firearms stating If I had a gun, I would've used it. Guns were removed from the household by hissons approx 1mo ago. Patient reported one of his main stressors was all my health problems. Patient denied CP, worsening SOB, significant weight gain, fever, chills, confusion, and leg swelling. He added that he recently having an upper GI workup completed due to melena. He was given instructions to return to the ED tomorrow if melena persisted. Patient stated that he has had improvement. Denies HI and AVH. We were given permission to contact his sons for collateral. Collateral stated that patient's health has declined within the past 1-1.5 yrs. That he has had many stressors contributing to his presentation. Patient's brother passed approx 1-2mo ago. His first committed suicide approx 33yrs ago, and his second passed in June 2023. Not long after her passing, the patient was then diagnosed with prostate cancer, and after that, his health started to decline. The patient is supposed to see his guest relations representative in regards to his CHF and scheduling to get a pacemaker this upcoming . For further details on history of present illness, please see H&P Hospital Course and Condition on Discharge Prior to [facility] admission, patient was initially evaluated by [facility] physician/CARL who determined further inpatient psychiatric management was needed. On initial [facility] evaluation, patient states ???I am tired, I am tired of everything?? . He reports that he has been having feelings of no longer wanting to be alive for the past several months, however he has never wanted to act on these because he did not want to hurt his family. He notes that his oldest son's mother, his 1st , by suicide. However he states that recently he has just felt like he can not bear it anymore, which is why he was looking to find a gun as described above. He states that his in June of 2023, and since then he feels like nothing has gone right. He has had a lot of health issues and was diagnosed withprostate cancer 7 months ago. Since then he states that he hates living alone and has a lot of trouble with this. He reports that recently his 2 sons have been alternating staying with him so he is not alone. He also reports that they removed all of his guns from his home. He reports that he has 2 sons (age 65 and 48) and 1 daughter (age 64). He states that his daughter ???will not help him with anything?? . He states that he feels overwhelmed by all of his medical care. He reports that he has to take 15 different pills every morning and keeping up with that and making sure that his blood pressure is doing all right has been very stressful. He also notes that he no longer enjoys doing things that he did previously. He reports that he frequently would cook large meals for himself as well as his family. He reports that he used to go to muslim twice a week with his , but they stopped going in 2019. He reports that he used to send them a tithe every month but has not done that for the last 2 months. He no longer enjoys cooking even though he reports that his grandchildren still talk about how much they enjoy the breakfast that he used to cook. He states that there have been no more recent stressors, but he does note that his home health PT and OT stopped coming last week. He states that he has had decreased energy and appetiteand that he has lost a significant amount of weight recently. He also feels like he worries all of the time. He states that he just hopes that we can do something that will make him stop feeling likethis while he is here. Initial workup (vitals, physical exam, labs) revealed metabolic labs grossly within normal limits, UDS not collected, and no other notable findings on initial work up.. Following medication reconciliation by pharmacy, patient's home medication regimen was found to include Escitalopram 5 mg. Over the course of U admission, the following medication changes were made: Escitalopram dose wasincreased from 5 mg to 10 mg Patient tolerated treatment well without notable side effects, EPS. Patient demonstrated improvement in symptom burden, and by day of discharge, patient demonstrated improved mood, resolution of suicidal ideation, improvement in anxiety, improved insight into condition, and willingness to engage in treatment planning and plan for further outpatient engagement. Overhospital course, patient was calm, cooperative, and demonstrated no aggression or acting out behaviors. Hospital course was not complicated. Prognosis is guarded and dependant upon following up with care recommendations. Patient and his safety relation, son, Kofi Palmer, agree to safety planning, including: securing firearms, limiting access to medications, being available should the patient need to contact them, establishing outpatient followup, attending outpatient follow-up, abstaining from mind-altering substances, and returning to nearest ED or calling 911 with new or worsening symptoms, including active SI. His son, Kofi Palmer, was contacted on the day of discharge who mentions that he will be on the lookout for any concerning behavior and that he is actively clearing his house of any tools or equipment that maybe used for self-harm. A problem-based plan addressing psychiatric and medical co- morbidities as well as reasoning in formulation is available below. Risk Assessment: Patient IS NOT currently at an acutely elevated risk of harm to self or others given lack of SI/HI.Patient IS NOT demonstrating ANY suicidal intent, DOES appear to be able to control impulsivity, and IS NOT exhibiting any psychiatric symptom burden impacting safety/daily functioning. It should be noted that this patient is at a chronically elevated risk at baseline due to the following exhibited risk factors NOT modifiable by hospitalization demonstrated in their history: historyof psychiatric disorder, never //, living alone, family history of suicide,and impulsivity. The patient does, however, exhibit the following strengths/protective factors: calm/cooperative, adherent to current medications, demonstrating resolution of symptoms, connected withan outpatient provider, denying access to firearms, able to identify reasons for living, and future- oriented, awareness of substance issues, optimism that change can occur, motivation for change, exercising self direction, access to housing, knowledge of medications, vocational interests/hobbies, and good interpersonal relationships and supports. No risk factors modifiable by psychiatric hospitali zation were identified on evaluation. Involuntary hospitalization on a 72 hour hold for safety, further psychiatric evaluation, and crisis stabilization IS NOT currently indicated. Patient IS NOT holdable under KRS as he DOES NOT meet ALL hold criteria: having a mental illness, being an acute risk of harm to self or others, reasonable expectation of benefit from admission, AND inpatient being least restrictive means of treatment. Formulation: Braeden Palmer is a 84 y.o. male with a PMHx of CHF, CKD, HTN, Type II DM, CAD, Prostate Cancer, Hyperlipidemia, and A-Fib and no reported psychiatric history who presented to [facility] via private vehicle driven by other from home on 01/11/25 with concerns of active suicidal ideation with attempts to obtain lethal means. They were subsequently admitted to [facility] 01/12/25 on 72 hour hold for continued evaluation and management of suicidal ideation. Psychiatric history significant for no prior inpatient admissions. Recent psychosocial stressors of of in 2023, worsening health issues, diagnosis with prostate cancer, living alone. Most likely diagnosis at this time is unspecified mood disorder, given depressed mood, suicidal ideation with attempt to obtain means, anhedonia, feelings of guilt, decreased energy, decreased appetite and weight loss. Difficult to exclude MDD given the above symptoms that have been present for greater than 2 weeks. Also difficult to exclude adjustment disorder given the above symptoms presented following multiple stressors. Discharge Diagnosis Unspecified mood (affective) disorder ([facility]) Diagnoses: PSYCHIATRIC MANAGEMENT 1.) Unspecified mood disorder CGI Status: Compared to admission, how much has the pt's condition changed? 4 (no change) PLAN: Continue Lexapro 10 mg daily MEDICAL MANAGEMENT 1.) Atrial fibrillation: Continue Eliquis 2.5 mg BID, carvedilol 3.125 mg BID 2.) T2DM: A1C 7.7 on 12/19/24. Sliding scale insulin, carb consistent diet, continue gabapentin 300mg qam and 600 mg at bedtime, continue pancrelipase TID w/ meals 3.) CAD: Continue Plavix 75 mg daily and start atorvastatin 20 mg nightly as simvastatin not on formulary 4.) CKD stage III: BL Cr 1.6-2.0 mg/dL; avoid nephrotoxic drugs 5.) History of prostate cancer/urinary retention: Continue flomax 0.4 mg nightly, prednisone 5 mg daily, pantoprazole 40 mg daily 6.) Constipation: Continue Miralax 17 g daily Surgeries and Procedures none Additional Hospital Problem List: Active Hospital Problems *Unspecified mood (affective) disorder ([facility]) Medications at Discharge Medication List .. allopurinol 100 MG tablet Commonly known as: Zyloprim Take 1 tablet by mouth 2 times a day. apixaban 2.5 MG tablet Commonly known as: Eliquis Take 1 tablet by mouth 2 times a day. calcitriol 0.25 MCG capsule Commonly known as: Rocaltrol Take 1 capsule by mouth 3 times a week. carvedilol 3.125 MG tablet Commonly known as: Coreg 1 tablet. Patient takes only if blood pressure is above 120 clopidogrel 75 MG tablet Commonly known as: Plavix Take 1 tablet by mouth nightly. cyanocobalamin 1000 MCG tablet Commonly known as: Vitamin B-12 Take 1 tablet by mouth 1 time each day. escitalopram 10 MG tablet Commonly known as: Lexapro Take 1 tablet by mouth daily. furosemide 20 MG tablet Commonly known as: Lasix Take 1 tablet by mouth as needed (swelling). gabapentin 300 MG capsule Commonly known as: Neurontin 1 capsule in the morning and 2 capsules at night hydrALAZINE 10 MG tablet Commonly known as: Apresoline Take 1 tablet by mouth twice a day. insulin NPH-insulin regular (70-30) 100 UNIT/ML injection vial Commonly known as: Novolin 70-30,Humulin 70-30 Inject 15 Units under the skin 2 times a day before meals. Jardiance 10 MG Generic drug: empagliflozin Take 1 tablet by mouth daily. pancrelipase (Xxe-Fxgc-Gygr) 13606-424345 units capsule delayed-release particles capsule Commonly known as: Creon Take 1 capsule by mouth 3 times a day with meals. pantoprazole 40 MG EC tablet Commonly known as: Protonix Take 1 tablet by mouth daily before breakfast. Do not crush, chew, or split. polyethylene glycol 17 g packet Commonly known as: Miralax Take 17 g by mouth 1 time each day. predniSONE 5 MG tablet Commonly known as: Deltasone Take 1 tablet by mouth daily. simethicone 125 MG capsule Commonly known as: Mylicon,Gas-X Take 1 capsule by mouth nightly. simvastatin 40 MG tablet Commonly known as: Zocor Take 1 tablet (40 mg) by mouth every night. tamsulosin 0.4 MG 24 hr capsule Commonly known as: Flomax Where to Get Your Medications These medications were sent to [facility] [address] [address] [address] escitalopram 10 MG tablet Follow-Up / Post-Discharge Instructions Follow up Recommendations: 1.) He was discharged to Home with family. 2.) He should follow up with psychiatry and/or other specialists as per below. 3.) He should also followup with their Primary Care Physician for routine health maintenance. 4.) He was strongly encouraged to keep all future appointments and advised to take all prescribed medications as instructed. 5.) He should abstain from all mood-altering substances except those prescribed by a cardio clinician. His primary supports should monitor him for evidence of substance use and should alert his outpatient provider if use is suspected or confirmed. 6.) A safety plan was given at the time of discharge which included instructions to return to the nearest ER if patient becomes suicidal, homicidal, manic, psychotic, or develops any other urgent/emergent symptoms, or to call the [phone] line. 7.) He voiced an understanding of the safety plan. Outpatient Follow-Up Follow up with Cardiology appointment on 01/17/2025 Follow up with PCP Dr. Christopher Yadav MD on 01/22/2025 at 1015 Test Results Pending At Discharge Pertinent Mental Status Exam At Time of Discharge Appearance: appears stated age, well nourished, wearing hospital attire, well- kempt, and good hygiene Behavior: calm, cooperative, age-appropriate, easy to establish rapport, forthcoming about condition and reasons for presentation, and non-verbal body language and communication appropriate throughout interview Eye Contact: appropriate Involuntary Movements: absent Psychomotor Activity: no significant depression or agitation Speech: normal rate, tone and rhythm, appropriate rick, and coherent speech Mood: good Affect: euthymic, congruent with stated mood, broad, full range of affect, and friendly LOC/Orientation: Awake and Alert, oriented to person, place, time, and general circumstances Cognition/Development/Knowledge: Cognition appears grossly normal, appropriate fund of knowledge for age and level of education Thought Process: linear, organized, goal-directed, and easily understandable, fluid thought-process Thought Content/Perceptions (AVH): clear, age-appropriate, on topic , mood- congruent, denies auditory/visual hallucination, and does not appear to be reacting to internal stimuli Suicidal Ideation: denied Homicidal Ideation: denied Reliability: patient appears to be reliable and cooperative informant Insight: fair Judgment: fair Discharge Disposition/Condition Disposition: Home with family Condition: Stable (s/sx potential problems absent or manageable) greater than 30 minutes was spent on evaluation and management of this patient JIA Sharpe PGY1 Neurology Cosigned by Davina Nicholas DO at 01/16/2025 12:23 PM EST Associated attestation - Davina Nicholas DO - 01/16/2025 12:23 PM EST I saw and evaluated the patient with the resident/fellow. I discussed the case with the resident/fellow and agree with the findings and plan as documented. * Ness Rock RN - 01/16/2025 10:49 AM EST Images from the original note were not included. [id number] Escitalopram IMPORTANT WARNING: Medications such as escitalopram may increase the risk of suicidal thoughts and actions. This increase was found in children, teenagers, and young adults (less than 24 years of age). The risk may be more likely with the first few months of treatment and when the dose is increased. Call your doctor right away if you experience any of the following symptoms: new or worsening depression; thinking about harming or killing yourself, or planning or trying to do so; extreme worry; agitation; panic attacks; difficulty falling asleep or staying asleep; aggressive behavior; irritability; acting without thinking; severe restlessness; and frenzied abnormal excitement. Be sure that your family or caregiver knows which symptoms may be serious so they can call the doctor if you are unable to do so. The doctor or pharmacist will give you the mechanical maintenance supervisor's patient information sheet (Medication Guide) when you begin treatment with escitalopram. Read the information carefully and ask your doctor or pharmacist if you have any questions. You also can obtain the Medication Guide from the FDA website: https://www.fda.gov/Drugs/DrugSafety/sjf337642.htm. Talk to your doctor about the risks of taking escitalopram. WHY is this medicine prescribed? Escitalopram is used to treat depression and generalized anxiety disorder (HENOK; excessive worry andtension that disrupts daily life and lasts for 6 months or longer). Escitalopram is in a class of antidepressants called selective serotonin reuptake inhibitors (SSRIs). It works by increasing the amount of serotonin, a natural substance in the brain that helps maintain mental balance. HOW should this medicine be used? Escitalopram comes as a tablet and a solution (liquid) to take by mouth. Take once a day with or without food. Take it at around the same time every day, in the morning or in the evening. Take escitalopram exactly as directed. Do not take more or less of it or take it more often than prescribed by your doctor. Your doctor may start you on a low dose of escitalopram and increase your dose after 1 week or moreweek. It may take several weeks before you feel the full benefit of escitalopram. Continue to take escitalopram even if you feel well. Do not stop taking escitalopram without talking to your doctor. Your doctor will probably decrease your dose gradually. If you suddenly stop taking escitalopram, you may e xperience withdrawal symptoms such as mood changes, irritability, agitation, nausea, dizziness, burning, numbness, or tingling in the hands or feet, anxiety, confusion, headache, sweating, shaking, frenzied or abnormally excited mood, tiredness, and difficulty falling asleep or staying asleep. Tellyour doctor if you experience any of these symptoms while you are decreasing your dose of escitalopram or soon after you stop taking escitalopram. Are there OTHER USES for this medicine? This medication may be prescribed for other uses; ask your doctor or pharmacist for more information. What SPECIAL PRECAUTIONS should I follow? Before taking escitalopram, ? tell your doctor or pharmacist if you are allergic to this drug, any part of this drug, or any other drugs, foods or substances. Tell your doctor or pharmacist about the allergy and what symptoms you had. ? tell your doctor or pharmacist if you are taking the following medications or have stopped takingthem within the past two weeks: a monoamine oxidase (MAO) inhibitor such as isocarboxazid, linezolid, methylene blue, phenelzine, selegiline, and tranylcypromine. ? some medications should not be taken with escitalopram. Other medications may cause dosing changes or extra monitoring when taken with escitalopram. Make sure you have discussed any medications youare currently taking or plan to take before starting escitalopram with your doctor and pharmacist. Before starting, stopping, or changing any medications while taking escitalopram, please get the advice of your doctor or pharmacist. ? the following nonprescription or herbal products may interact with escitalopram: aspirin, ibuprofen (Advil??, Motrin?? IB), naproxen (Aleve??), Kadie's wort, or tryptophan. Be sure to let your doctor and pharmacist know that you are taking these medications before you start taking escitalopram. Do not start any of these medications while taking escitalopram without discussing with your healthcare provider. ? tell your doctor if you drink or have ever drunk large amounts of alcohol, or use or have ever used street drugs or have ever overused prescription medications. Also tell your doctor if you have recently had a heart attack and if you have or have ever had bleeding problems; seizures; glaucoma (a condition in which increased pressure in the eye can lead to gradual loss of vision); or liver, kidney, or heart disease. ? tell your doctor if you are , especially if you are in the last few months of your , or if you plan to become or are breast- feeding. If you become while taking escitalopram, call your doctor. ? you should know that escitalopram may make you drowsy and may affect your judgment, thinking, andmovements. Do not drive a car or operate machinery until you know how this medication affects you. ? talk to your doctor about the safe use of alcoholic beverages during your treatment with escitalopram. Alcohol can make the side effects of escitalopram worse. ? you should know that escitalopram may cause angle-closure glaucoma (a condition where the fluid is suddenly blocked and unable to flow out of the eye causing a quick, severe increase in eye pressure which may lead to a loss of vision). Talk to your doctor about having an eye examination before you start taking this medication. If you have nausea, eye pain, changes in vision, such as seeing colored rings around lights, and swelling or redness in or around the eye, call your doctor or get emergency medical treatment right away. What SPECIAL DIETARY instructions should I follow? Unless your doctor tells you otherwise, continue your normal diet. What should I do IF I FORGET to take a dose? Take the missed dose as soon as you remember it. However, if it is almost time for the next dose, skip the missed dose and continue your regular dosing schedule. Do not take a double dose to make up for a missed one. What SIDE EFFECTS can this medicine cause? Some side effects can be serious. If you experience either of the following symptoms or those listed in the IMPORTANT WARNING or SPECIAL PRECAUTIONS sections, call your doctor immediately: ? unusual excitement ? seeing things or hearing voices that do not exist (hallucinating) ? rash; itching; hives or blisters; fever; joint pain; difficulty breathing or swallowing; swellingof the face, throat, tongue, lips, or eyes ? fever, sweating, confusion, fast or irregular heartbeat, severe muscle stiffness or twitching, agitation, hallucinations, loss of coordination, nausea, vomiting, or diarrhea ? abnormal bleeding or bruising ? headache; unsteadiness; problems with thinking, concentration, or memory ? seizures Escitalopram may cause other side effects. Call your doctor if you have any unusual problems while taking this medication. If you experience a serious side effect, you or your doctor may send a report to the Food and Drug Administration's (FDA) MedWatch Adverse Event Reporting program online (https://www.fda.gov/Safety/MedWatch) or by phone ( ). What should I know about STORAGE and DISPOSAL of this medication? Keep this medication in the container it came in, tightly closed, and out of reach of children. Store it at room temperature and away from excess heat and moisture (not in the bathroom). Dispose of unneeded medications in a way so that pets, children, and other people cannot take them.Do not flush this medication down the toilet. Use a medicine take-back program. Talk to your pharmacist about take-back programs in your community. Visit the FDA's Safe Disposal of Medicines website h ttps://goo.gl/c4Rm4p for more information. Keep all medication out of sight and reach of children as many containers are not child-resistant. Always lock safety caps. Place the medication in a safe location - one that is up and away and out of their sight and reach. https://www.upandaway.org What should I do in case of OVERDOSE? In case of overdose, call the poison control helpline at . Information is also available online at https://www.poisonhelp.org/help. If the victim has collapsed, had a seizure, has trouble breathing, or can't be awakened, immediately call emergency services at 861. Symptoms of overdose may include: ? fast or pounding heartbeat ? seizures ? coma (loss of consciousness for a period of time) What OTHER INFORMATION should I know? Keep all appointments with your doctor. Before having any laboratory test, tell your doctor and the laboratory personnel that you are taking escitalopram. Do not let anyone else take your medication. Ask your pharmacist any questions you have about refilling your prescription. Keep a written list of all of the prescription and nonprescription ([id number]-[id number]) medicines, vitamins, minerals, and dietary supplements you are taking. Bring this list with you each time you visit a doctor or if you are admitted to the hospital. You should carry the list with you in case of edwar rgencies. Brand Name(s): ? Lexapro?? also available generically This report on medications is for your information only, and is not considered individual patient advice. Because of the changing nature of drug information, please consult your physician or pharmacist about specific clinical use. The [employer] represents that the information provided hereunder was formulated with a reasonable standard of care, and in conformity with professional standards in the field. The [employer] makes no representations or warranties, express or implied, including, but not limited to, any implied warranty of merchantability and/or fitness for a particular purpose, with respect to such information and specifically disclaims all such warranties. Users are advised that decisions regarding drug therapy are complex medical decisions requiring the independent, informed decision of an appropriate health nursing care attendant, and the information is provided for informational purposes only. The entire monograph for a drug should be reviewed for a thorough understanding of the drug's actions, uses and side effects. The [employer] does not endorse or recommend the use of any drug.The information is not a substitute for medical care. AHFS?? Patient Medication Information?. ?? Copyright, 2023. [employer]??, [address], [address], [place], [place]. All Rights Reserved. Duplication for commercial use must be authorized by [facility]. Selected Revisions: December 12, 2024. AHFS?? Patient Medication Information?. ?? Copyright, 2024 * Discharge Instr - Appointments - Sherry Bunch - 01/16/2025 9:48 AM EST Patient's family will take him to his cardiology appointment tomorrow morning. They are also in theprocess of getting him into [facility]. PCP - Dr. Christopher Yadav on TuesdayJanuary 22 at 10:15am # [phone] FAX# [phone] * Nursing Note - Olga Jimenez RN - 01/15/2025 11:05 PM EST Patient continues admission on the Adult [facility]. On initial encounter patient is observed to be resting comfortably awake in bed. Patient presented with calm mood and full affect. Patient currently denies SI/HI/AVH and displays no sign of physical distress. Thought content is linear and grossly organized. Pt continues to comply with medication regimen, and will continue to be medicated per EMAR. Encouragement provided and will continue to monitor for safety, encourage patient to voice safety concerns, and implement current plan of care. Patient will continue with 1:1 safety clothing and equipment developer do to beingin a med bed. Will monitor with q15 min safety checks and hourly rounding. * Care Plan - Olga Jimenez RN - 01/15/2025 8:19 PM EST Problem: Adult Behavioral Health Plan of Care Goal: Plan of Care Review Outcome: Ongoing, Progressing Flowsheets (Taken 01/15/20252015) Progress: improving Patient Agreement with Plan of Care: agrees Plan of Care Reviewed With: patient Goal: Patient-Specific Goal (Individualization) Outcome: Ongoing, Progressing Flowsheets Taken 01/15/20252015 Patient Personal Strengths: expressive of emotions expressive of needs family/social support intellectual cognitive skills motivated for treatment stable living environment Patient Vulnerabilities: lacks insight into illness poor physical health Taken 01/15/20251999 Patient/Family-Specific Goals (Include Timeframe): patient will remian free from injury or fall this shift Individualized Care Needs: safety, medications Anxieties, Fears or Concerns: Wants to go home tomorrow Goal: Adheres to Safety Considerations for Self and Others Outcome: Ongoing, Progressing Flowsheets (Taken 01/15/20252015) Adheres to Safety Considerations for Self and Others: making progress toward outcome Intervention: Develop and Maintain Individualized Safety Plan Flowsheets (Taken 01/15/20252015) Safety Measures: environmental rounds completed safety rounds completed 1:1 observation maintained suicide assessment completed Goal: Optimized Coping Skills in Response to Life Stressors Outcome: Ongoing, Progressing Flowsheets (Taken 01/15/20252015) Optimized Coping Skills in Response to Life Stressors: making progress toward outcome Intervention: Promote Effective Coping Strategies Flowsheets (Taken 01/15/20252015) Supportive Measures: active listening utilized decision-making supported self-care encouraged positive reinforcement provided verbalization of feelings encouraged self-responsibility promoted Goal: Develops/Participates in Therapeutic [place] to Support Successful Transition Outcome: Ongoing, Progressing Flowsheets (Taken 01/15/20252015) Develops/Participates in Therapeutic [place] to Support Successful Transition: making progress toward outcome Intervention: Foster Therapeutic [place] Flowsheets (Taken 01/15/20252015) Trust Relationship/Rapport: care explained choices provided emotional support provided empathic listening provided questions answered thoughts/feelings acknowledged reassurance provided questions encouraged Intervention: Mutually Develop Transition Plan Flowsheets (Taken 01/15/20252015) Transition Support: follow-up care discussed Problem: Suicide Risk Goal: Absence of Self-Harm Outcome: Ongoing, Progressing Intervention: Assess Risk to Self and Maintain Safety Flowsheets (Taken 01/15/20252015) Behavior Management: boundaries reinforced Enhanced Safety Measures: monitored by video avionics safety inspector at bedside Self-Harm Prevention: environmental self-harm risks assessed observed one-to-one Intervention: Promote Psychosocial Wellbeing Flowsheets (Taken 01/15/20252015) Supportive Measures: active listening utilized decision-making supported self-care encouraged positive reinforcement provided verbalization of feelings encouraged self-responsibility promoted Family/Support System Care: self-care encouraged support provided Sleep/Rest Enhancement: awakenings minimized noise level reduced regular sleep/rest pattern promoted * Group Note - Kely Zarco RD - 01/15/2025 5:03 PM EST Group Topic: Nutrition Group Date: 01/15/2025 Start Time: 0 End Time: 0410 Facilitators: Kely Zarco RD Department: [facility] Inpatient Psychiatry Name: Braeden Palmer Date of : 1940 MR: [id number] Attendance: Excused Level of Participation: Quality of Participation: Plan: Pt with visitors at time of group, will be invited to future nutrition groups. Patients Problems: Patient Active Problem List Diagnosis Obesity (BMI 35.0-39.9 without comorbidity) Unspecified mood (affective) disorder (CMS/HCC) * Progress Notes - Sherry Bunch - 01/15/2025 3:47 PM EST Public Health Assistant Follow-UP Note Braeden Palmer 1940 [id number] Family Meeting Note: Met with patient, his son Kofi and his granddaughter Morena. They discussed the possibility of getting him into [facility] tomorrow (01-16-25). They said the facility does have male beds currently and that they will have patient's PCP do a referral tomorrow am. They want him discharged by tomorrow because he has an important Cardiology appointment morning (about getting a pacemaker). Patient agreed with all of the above. Will continue supportive therapy and plan for discharge tomorrow. Written/Dictated by Sherry Bunch on 01/15/25 at 3:47 PM. * Nursing Note - Wanda Veliz, RN - 01/15/2025 3:26 PM EST Pt continues admission on the the adult behavioral health unit. Pt presents with calm mood and congruent affect. Pt denies SI/HI/AVH at this time. No signs of physical distress noted. Pt alert and oriented x4. Thought content appears grossly organized. Hygiene, hydration, and nutrition encouraged. Pt did not attend group. Patient's family visited this afternoon. Pt medication compliant. Pt encouraged to voice safety concerns and monitored for safety with 15 minute checks. Plan of care ongoing. Wanda Veliz RN * Care Plan - Wanda Veliz RN - 01/15/2025 2:35 PM EST Problem: Adult Behavioral Health Plan of Care Goal: Plan of Care Review Outcome: Ongoing, Progressing Flowsheets (Taken 01/15/2025 1431) Progress: improving Patient Agreement with Plan of Care: agrees Plan of Care Reviewed With: patient Goal: Patient-Specific Goal (Individualization) Outcome: Ongoing, Progressing Flowsheets Taken 01/15/2025 1431 Patient Personal Strengths: expressive of needs expressive of emotions motivated for recovery Taken 01/15/2025 0845 Patient/Family-Specific Goals (Include Timeframe): Pt will remain free from injury or harm during the shift. Individualized Care Needs: safety rounds Anxieties, Fears or Concerns: wants to go home and see his family Goal: Adheres to Safety Considerations for Self and Others Outcome: Ongoing, Progressing Flowsheets (Taken 01/15/2025 1431) Adheres to Safety Considerations for Self and Others: making progress toward outcome Intervention: Develop and Maintain Individualized Safety Plan Flowsheets (Taken 01/15/2025 1431) Safety Measures: environmental rounds completed safety rounds completed suicide assessment completed Goal: Optimized Coping Skills in Response to Life Stressors Outcome: Ongoing, Progressing Flowsheets (Taken 01/15/2025 1431) Optimized Coping Skills in Response to Life Stressors: making progress toward outcome Intervention: Promote Effective Coping Strategies Flowsheets (Taken 01/15/2025 1431) Supportive Measures: active listening utilized decision-making supported goal-setting facilitated self-care encouraged verbalization of feelings encouraged Goal: Develops/Participates in Therapeutic [place] to Support Successful Transition Outcome: Ongoing, Progressing Flowsheets (Taken 01/15/2025 1431) Develops/Participates in Therapeutic [place] to Support Successful Transition: making progress toward outcome Intervention: Foster Therapeutic [place] Flowsheets (Taken 01/15/2025 143) Trust Relationship/Rapport: care explained choices provided emotional support provided empathic listening provided questions encouraged Intervention: Mutually Develop Transition Plan Flowsheets (Taken 01/15/2025 143) Concerns to be Addressed: mental health Problem: Suicide Risk Goal: Absence of Self-Harm Outcome: Ongoing, Progressing Intervention: Assess Risk to Self and Maintain Safety Flowsheets (Taken 01/15/2025 1431) Behavior Management: boundaries reinforced Enhanced Safety Measures: avionics safety inspector at bedside previous patient education reinforced Self-Harm Prevention: environmental self-harm risks assessed Intervention: Promote Psychosocial Wellbeing Flowsheets (Taken 01/15/2025 1431) Supportive Measures: active listening utilized decision-making supported goal-setting facilitated self-care encouraged verbalization of feelings encouraged Family/Support System Care: self-care encouraged Sleep/Rest Enhancement: regular sleep/rest pattern promoted relaxation techniques promoted Intervention: Establish Safety Plan and Continuity of Care Flowsheets (Taken 01/15/2025 1431) Safe Transition Promotion: protective factors promoted * Group Note - Lesly Ashley - 01/15/2025 2:09 PM EST Group Topic: Music Therapy Group Date: 01/15/2025 Start Time: 1330 End Time: 1400 Facilitators: Lesly Ashley Department: [facility] Integrative Medicine Virtual Dept. Number of Participants: 2 Treatment Modality: Group Music Therapy Interventions Utilized: edgardo analysis, music listening, music-based discussion, playing instruments/drumming, singing, Goals Addressed: Increase coping skills, mood, Name: Braeden Palmer Date of : 1940 MR: [id number] Patient Attendance: No Comments: Pt rested in room. Plan: pt will be encouraged to attend groups, * Group Note - Anne Oneil - 01/15/2025 12:13 PM EST Group Topic: Healing Arts Group Date: 01/15/2025 Start Time: 1100 End Time: 1200 Facilitators: Anne Oneil Department: [facility] Inpatient Psychiatry Number of Participants: 4 Group Focus: art therapy, leisure skills, and social skills Treatment Modality: Art Therapy Interventions utilized were group exercise and leisure development Purpose: enhance coping skills Name: Braeden Palmer Date of : 1940 MR: [id number] Patient did not attend group. Patients Problems: Patient Active Problem List Diagnosis Obesity (BMI 35.0-39.9 without comorbidity) Unspecified mood (affective) disorder (CMS/HCC) * Group Note - Bonny Kaplan - 01/15/2025 10:57 AM EST Group Topic: Goals Group Date: 01/14/2025 Start Time: 1035 End Time: 1125 Facilitators: Bonny Kaplan Department: [facility] Inpatient Psychiatry Number of Participants: 18 Group Focus: Goals Treatment Modality: Discussion Interventions utilized were: N/A Purpose: Goal setting Name: Braeden Palmer Date of : 1940 MR: [id number] Patient did not participate in group, but was offered a goals handout as an alternative to group. Patients Problems: Patient Active Problem List Diagnosis Obesity (BMI 35.0-39.9 without comorbidity) Unspecified mood (affective) disorder (CMS/HCC) * Group Note - Bonny Kaplan - 01/15/2025 10:48 AM EST Group Topic: Goals Group Date: 01/15/2025 Start Time: 1010 End Time: 1040 Facilitators: Bonny Kaplan Department: [facility] Inpatient Psychiatry Number of Participants: 15 Group Focus: Goals Treatment Modality: Discussion Interventions utilized were: N/A Purpose: Goal setting Name: Braeden Palmer Date of : 1940 MR: [id number] Patient did not participate in group, but was offered a goals handout as an alternative to group. Patients Problems: Patient Active Problem List Diagnosis Obesity (BMI 35.0-39.9 without comorbidity) Unspecified mood (affective) disorder (CMS/HCC) * Progress Notes - Gabi Turcios MBBS - 01/15/2025 9:01 AM EST [facility] Daily Progress Note 01/15/25 Hospital Day #3 Subjective: Per nursing and whiteboard discussion: Nursing reports that in the last 24 hours, patient Braeden Palmer, was calm, cooperative, and required no PRN medications for acting out behaviors Per Resident/Rounds Interview: Braeden Palmer states that overnight they slept well without nighttime awakenings. This morning, they feel okay. They report No side effects due to medications. Denies active SI/HI/AVH. He mentions he would like to be discharged back home and aims to spend more time with family. He denies any chest pain/breathlessness/PND. Additional Collateral: No ROS: (2-9) Patient denies any problems with pain, N&V, dizziness, or muscle stiffness PFSH: (1) Past Medical History: This was reviewed from the H&P and is unchanged Family Medical History: This was reviewed from the H&P and is unchanged Social History: This was reviewed from the H&P and is unchanged Past Surgical History: This was reviewed from the H&P and is unchanged Objective: Temp: [36.5 ??C (97.7 ??F)-36.6 ??C (97.9 ??F)] 36.5 ??C (97.7 ??F) Heart Rate: [58-72] 59 BP: (121-141)/(71-73) 121/73 Sleep: Sleep Total Hours of Sleep: 7 (sleep 2300-) Meals: I&O: I/O last 3 completed shifts: In: 1080 (9.7 mL/kg) [P.O.:1080] Out: - (0 mL/kg) Weight: 111.1 kg I/O this shift: In: 400 [P.O.:400] Out: - EXAMINATION: (12 elements/ 2 systems) Neuro: Gait and station are intact. The muscle tone is intact and all the patient moves all extremities. Mental Status Exam: Appearance: appears stated age, well nourished, wearing hospital attire, well- kempt, and good hygiene Behavior: calm, cooperative, age-appropriate, easy to establish rapport, forthcoming about condition and reasons for presentation, and non-verbal body language and communication appropriate throughout interview Eye Contact: appropriate Involuntary Movements: absent Psychomotor Activity: no significant depression or agitation Speech: normal rate, tone and rhythm, appropriate rick, and coherent speech Mood: okay Affect: congruent with stated mood, broad, full range of affect, and friendly LOC/Orientation: Awake and Alert, oriented to person, place, time, and general circumstances Cognition/Development/Knowledge: Cognition appears grossly normal, appropriate fund of knowledge for age and level of education Thought Process: linear, organized, goal-directed, and easily understandable, fluid thought-process Thought Content/Perceptions (AVH): clear, age-appropriate, on topic , mood- congruent, denies auditory/visual hallucination, and does not appear to be reacting to internal stimuli Suicidal Ideation: denied Homicidal Ideation: denied Reliability: patient appears to be reliable and cooperative informant Insight: fair Judgment: fair Medications: Scheduled: Current Scheduled Medications[1] As needed: Current PRN Medications[2] Labs in last 18 hours CBC WBC ?? Hb ?? Plt ?? Hct ?? ANC ?? INR ??, PTT ??, Anti-Xa ?? BMP Na ?? Cl ?? BUN ?? Glu ?? K ?? Co2 ?? Cr ?? Ca ?? iCa ?? Mg ??, Phos ?? Lactate ?? LFT AST ?? AlkPhos ?? T Prot ?? ALK ?? Bili ?? Alb ?? D.Bili ?? Encounter Date: 01/11/25 ECG Adult Result Value EKG DIAGNOSIS CLASS Abnormal Ventricular Rate 66 QRSD Interval 96 QT Interval 414 QTC Interval 434 R [place] 38 T Wave [place] 94 Diagnosis Atrial fibrillation with premature ventricular or aberrantly conducted complexes Diagnosis Indeterminate axis Diagnosis Abnormal ECG Diagnosis Diagnosis Confirmed by Osmin Valerio ([id number]) on 01/13/2025 5:12:51 PM *Note: Due to a large number of results and/or encounters for the requested time period, some results have not been displayed. A complete set of results can be found in Results Review. Assessment/Plan ASSESSMENT/PLAN Risk Assessment: Patient is currently at an acutely elevated risk of harm to self or others given active suicidal ideation. Patient is demonstrating ACTIVE suicidal intent, DOES NOT appear to be able to control impulsivity, and IS exhibiting pervasive mood symptom burden impacting daily functioning. They currently affirm plan described as obtaining a firearm. This plan was noted to be PLAUSIBLE, of HIGH lethality, and consistent with LIMITED access to means based on evaluation. It should be noted that this patient is at a chronically elevated risk at baseline due to the following exhibited risk factors NOT modifiable by hospitalization demonstrated in their history: living alone, chronic medical/physical illness, and family discord. The patient does, however, exhibit the following strengths/protective factors: calm/cooperative, adherent to current medications, denying access to firearms, and able to identify reasons for living, exercising self direction, cultural/spiritual sabianist involvement, access to housing, and good interpersonal relationships and supports. Risk factors modifiable by psychiatric hospitalization include acute exacerbation of a suspected psychiatric condition requiring treatment and are recommended to be addressed by initiating treatment for signs/symptoms of suspected psychiatric condition as appropriate. Involuntary hospitalization on a 72 hour hold for safety, further psychiatric evaluation, and crisis stabilization is currently indicated. Patient is holdable under KRS as he does meet ALL hold criteria: having a mental illness, being an acute risk of harm to self or others, reasonable expectation of benefit from admission, AND inpatient being least restrictive means of treatment. Formulation: Braeden Palmer is a 84 y.o. male with a PMHx of CHF, CKD, HTN, Type II DM, CAD, Prostate Cancer, Hyperlipidemia, and A-Fib and no reported psychiatric history who presented to [facility] via private vehicle driven by other from home on 01/11/25 with concerns of active suicidal ideation with attempts to obtain lethal means. They were subsequently admitted to [facility] 01/12/25 on 72 hour hold for continued evaluation and management of suicidal ideation. Psychiatric history significant for no prior inpatient admissions. Recent psychosocial stressors of of in 2023, worsening health issues, diagnosis with prostate cancer, living alone. Most likely diagnosis at this time is unspecified mood disorder, given depressed mood, suicidal ideation with attempt to obtain means, anhedonia, feelings of guilt, decreased energy, decreased appetite and weight loss. Difficult to exclude MDD given the above symptoms that have been present for greater than 2 weeks. Also difficult to exclude adjustment disorder given the above symptoms presented following multiple stressors. Admit Status: Involuntary - 72hr hold signed by [facility] attending. Hold start date/time 09/11/24 at 11:33, hold end date/time 01/17 at 08:00 Diagnoses: PSYCHIATRIC MANAGEMENT 1.) Unspecified mood disorder CGI Status: Compared to admission, how much has the pt's condition changed? 4 (no change) PLAN: Admission to [facility] for further inpatient psychiatric management Continue Lexapro 10 mg daily Behavioral checks q15 minutes per unit protocol Acute Agitation Medications: Deferred at this time Notify physician if medications for agitation required Comfort medications PRN Encourage participation in groups and benefit from therapeutic milieu Daily meetings and supportive therapy from treatment team MEDICAL MANAGEMENT 1.) Atrial fibrillation: Continue Eliquis 2.5 mg BID, carvedilol 3.125 mg BID 2.) T2DM: A1C 7.7 on 12/19/24. Sliding scale insulin, carb consistent diet, continue gabapentin 300mg qam and 600 mg at bedtime, continue pancrelipase TID w/ meals 3.) CAD: Continue Plavix 75 mg daily and start atorvastatin 20 mg nightly as simvastatin not on formulary 4.) CKD stage III: BL Cr 1.6-2.0 mg/dL; avoid nephrotoxic drugs 5.) History of prostate cancer/urinary retention: Continue flomax 0.4 mg nightly, prednisone 5 mg daily, pantoprazole 40 mg daily 6.) Constipation: Continue Miralax 17 g daily Disposition: Home w/ sons, likely tomorrow Barriers to discharge: Symptom burden, safety planning This patient was staffed with attending psychiatrist, Dr. Nicholas, who agrees with the assessment and plan. JIA Sharpe PGY1 [1] allopurinol, 100 mg, Oral, BID apixaban, 2.5 mg, Oral, BID atorvastatin, 20 mg, Oral, Nightly carvedilol, 3.125 mg, Oral, BID clopidogrel, 75 mg, Oral, Daily empagliflozin, 10 mg, Oral, Daily escitalopram, 10 mg, Oral, Daily gabapentin, 300 mg, Oral, Daily gabapentin, 600 mg, Oral, Nightly insulin lispro, 0-5 Units, Subcutaneous, TID with meals insulin lispro, 0-3 Units, Subcutaneous, Twice at night pancrelipase (Ddf-[id number]), 1 capsule, Oral, TID with meals pantoprazole, 40 mg, Oral, Daily polyethylene glycol, 17 g, Oral, Daily predniSONE, 5 mg, Oral, Daily tamsulosin, 0.4 mg, Oral, Nightly [2] PRN medications: acetaminophen, aluminum & magnesium hydroxide-simethicone, benzocaine, calcium carbonate, glucose OR [DISCONTINUED] dextrose 10 % OR [DISCONTINUED] dextrose 10 % OR glucagon (human recombinant), hydrOXYzine pamoate, magnesium hydroxide, melatonin, ocular lubricant, sodium chloride Cosigned by Davina Nicholas DO at 01/16/2025 7:56 AM EST Associated attestation - Davina Nicholas DO - 01/16/2025 7:56 AM EST I saw and evaluated the patient with the resident/fellow. I discussed the case with the resident/fellow and agree with the findings and plan as documented. * Nursing Note - Thalia Dueñas RN - 01/15/2025 12:58 AM EST Pt denies SI/HI/AVH at this time. He wears 2L NC at night. Encouragement provided and will continueto monitor for safety, encourage patient to voice safety concerns, and implement current plan of care. * Care Plan - Thalia Dueñas RN - 01/14/2025 9:16 PM EST Problem: Adult Behavioral Health Plan of Care Goal: Plan of Care Review Outcome: Ongoing, Progressing Flowsheets (Taken 01/14/20252113) Progress: improving Patient Agreement with Plan of Care: agrees Goal: Patient-Specific Goal (Individualization) Outcome: Ongoing, Progressing Flowsheets (Taken 01/14/20252113) Patient Personal Strengths: expressive of needs Patient Vulnerabilities: lacks insight into illness Patient/Family-Specific Goals (Include Timeframe): pt will remain free from falls this shift Individualized Care Needs: safety rounds Anxieties, Fears or Concerns: anxious about getting to discharge Goal: Adheres to Safety Considerations for Self and Others Outcome: Ongoing, Progressing Flowsheets (Taken 01/14/20252113) Adheres to Safety Considerations for Self and Others: making progress toward outcome Intervention: Develop and Maintain Individualized Safety Plan Flowsheets (Taken 01/14/20252113) Safety Measures: safety rounds completed monitored by video Goal: Optimized Coping Skills in Response to Life Stressors Outcome: Ongoing, Progressing Flowsheets (Taken 01/14/20252113) Optimized Coping Skills in Response to Life Stressors: making progress toward outcome Intervention: Promote Effective Coping Strategies Flowsheets (Taken 01/14/20252113) Supportive Measures: active listening utilized counseling provided self-care encouraged relaxation techniques promoted Goal: Develops/Participates in Therapeutic [place] to Support Successful Transition Outcome: Ongoing, Progressing Flowsheets (Taken 01/14/20252113) Develops/Participates in Therapeutic [place] to Support Successful Transition: making progress toward outcome Intervention: Foster Therapeutic [place] Flowsheets (Taken 01/14/20252113) Trust Relationship/Rapport: care explained choices provided empathic listening provided questions answered reassurance provided questions encouraged Intervention: Mutually Develop Transition Plan Flowsheets (Taken 01/14/20252113) Current Discharge Risk: psychiatric illness Concerns to be Addressed: mental health Problem: Suicide Risk Goal: Absence of Self-Harm Outcome: Ongoing, Progressing Intervention: Assess Risk to Self and Maintain Safety Flowsheets (Taken 01/14/20252113) Enhanced Safety Measures: monitored by video avionics safety inspector at bedside Intervention: Promote Psychosocial Wellbeing Flowsheets (Taken 01/14/20252113) Supportive Measures: active listening utilized counseling provided self-care encouraged relaxation techniques promoted Sleep/Rest Enhancement: awakenings minimized noise level reduced regular sleep/rest pattern promoted relaxation techniques promoted room darkened Intervention: Establish Safety Plan and Continuity of Care Flowsheets (Taken 01/14/20252113) Safe Transition Promotion: protective factors promoted * Nursing Note - Ava Bello RN - 01/14/2025 6:57 PM EST Pt continues admission on adult behavioral health unit. Hygiene, hydration, and nutrition encouraged. Pt presents with depressed mood and full affect. Pt denies SI/HI/AVH at this time. No signs of physical distress noted. Pt alert and oriented x4. Thought content appears grossly organized. Vital signs stable. Pt continues to comply with medication regimen, and will continue to be medicated per [facility]. Encouragement provided and will continue to monitor for safety, encourage patient to voice safety concerns, and implement current plan of care. * Care Plan - Ava Bello RN - 01/14/2025 6:56 PM EST Problem: Adult Behavioral Health Plan of Care Goal: Plan of Care Review Flowsheets (Taken 01/14/20251853) Progress: no change Patient Agreement with Plan of Care: agrees Plan of Care Reviewed With: patient Goal: Patient-Specific Goal (Individualization) Flowsheets (Taken 01/14/20251853) Patient Personal Strengths: expressive of emotions expressive of needs Patient Vulnerabilities: lacks insight into illness Patient/Family-Specific Goals (Include Timeframe): pt will remain free from falls and will be medication compliant during shift. Individualized Care Needs: safety, medications Anxieties, Fears or Concerns: pt is sad that he is here and wants to go home as soon as he can. Goal: Adheres to Safety Considerations for Self and Others Intervention: Develop and Maintain Individualized Safety Plan Flowsheets (Taken 01/14/20251853) Safety Measures: monitored by video Goal: Optimized Coping Skills in Response to Life Stressors Intervention: Promote Effective Coping Strategies Flowsheets (Taken 01/14/20251853) Supportive Measures: active listening utilized Goal: Develops/Participates in Therapeutic [place] to Support Successful Transition Intervention: Foster Therapeutic [place] Flowsheets (Taken 01/14/20251853) Trust Relationship/Rapport: care explained choices provided questions answered questions encouraged thoughts/feelings acknowledged reassurance provided emotional support provided empathic listening provided Intervention: Mutually Develop Transition Plan Flowsheets (Taken 01/14/20251853) Transition Support: community resources reviewed Readmission Within the Last 30 Days: no previous admission in last 30 days Problem: Suicide Risk Goal: Absence of Self-Harm Intervention: Assess Risk to Self and Maintain Safety Flowsheets (Taken 01/14/20251853) Behavior Management: behavioral plan developed Enhanced Safety Measures: monitored by video Self-Harm Prevention: environmental self-harm risks assessed * Group Note - Lenora Vick - 01/14/2025 3:12 PM EST Group Topic: Leisure Skills Group Date: 01/14/2025 Start Time: 1400 End Time: 1500 Facilitators: Lenora Vick Department: [facility] Inpatient Psychiatry Number of Participants: 7 Group Focus: coping skills and leisure skills Treatment Modality: Leisure Development Interventions utilized were leisure development Purpose: enhance coping skills Name: Braeden Palmer Date of : 1940 MR: [id number] Refused Patients Problems: Patient Active Problem List Diagnosis Obesity (BMI 35.0-39.9 without comorbidity) Unspecified mood (affective) disorder ([facility]) * Group Note - Lenora Vick - 01/14/2025 1:06 PM EST Group Topic: Leisure Skills Group Date: 01/14/2025 Start Time: 1100 End Time: 1200 Facilitators: Lenora Vick Department: [facility] Inpatient Psychiatry Number of Participants: 9 Group Focus: coping skills and leisure skills Treatment Modality: Leisure Development Interventions utilized were leisure development Purpose: enhance coping skills Name: Braeden Palmer Date of : 1940 MR: [id number] Refused. Patients Problems: Patient Active Problem List Diagnosis Obesity (BMI 35.0-39.9 without comorbidity) Unspecified mood (affective) disorder (CMS/HCC) * Progress Notes - Gabi Turcios MBBS - 01/14/2025 11:57 AM EST [facility] Daily Progress Note 01/14/25 Hospital Day #2 Subjective: Per nursing and whiteboard discussion: Nursing reports that in the last 24 hours, patient Braeden Palmer, was calm, cooperative, and required no PRN medications for acting out behaviors Per Resident/Rounds Interview: Braeden Palmer states that overnight they slept well without nighttime awakenings. This morning, they feel okay. They report No side effects due to medications. He denies any past SA. Denies active SI/HI/AVH. Talks about stressors and circumstances that led to his current suicidal ideation. He identifies family as a reason to keep himself away from any harm to himself. He mentions his 2 sons taking turns sleeping overnight with the med his house. He plans to return to his house following discharge. He feels that his meals are inappropriate for a diabetic. He was assured that appropriate changes will be made to meet salt intake criteria. He denies any chest pain/breathlessness/PND. Additional Collateral: Yes, spoke to sons Jarad Palmer at [phone] and Bruce Palmer at [phone]. They were informed of improvement in veins condition. They mentioned some apprehension about himcoming back home. They were assured that he would not be discharged unless he had resolution of hisSI. They provided additional information on him exhibiting desperation to get a hold of a gun to carry through with his SA prior to admission. They mentioned that he has a pacemaker appointment scheduled for . They feel comfortable taking him back home once he has been cleared by the treating physician team. ROS: (2-9) Patient denies any problems with pain, N&V, dizziness, or muscle stiffness PFSH: (1) Past Medical History: This was reviewed from the H&P and is unchanged Family Medical History: This was reviewed from the H&P and is unchanged Social History: This was reviewed from the H&P and is unchanged Past Surgical History: This was reviewed from the H&P and is unchanged Objective: Temp: [36.5 ??C (97.7 ??F)-36.6 ??C (97.8 ??F)] 36.6 ??C (97.8 ??F) Heart Rate: [62-65] 62 BP: (152-160)/(72-75) 160/72 Sleep: Sleep Total Hours of Sleep: 7 (sleep 2300-) Meals: I&O: I/O last 3 completed shifts: In: 800 (7.2 mL/kg) [P.O.:800] Out: - (0 mL/kg) Weight: 111.1 kg I/O this shift: In: 360 [P.O.:360] Out: - EXAMINATION: (12 elements/ 2 systems) Neuro: Gait and station are intact. The muscle tone is intact and all the patient moves all extremities. Mental Status Exam: Appearance: appears stated age, well nourished, wearing hospital attire, well- kempt, and good hygiene Behavior: calm, cooperative, age-appropriate, easy to establish rapport, forthcoming about condition and reasons for presentation, and non-verbal body language and communication appropriate throughout interview Eye Contact: appropriate Involuntary Movements: absent Psychomotor Activity: no significant depression or agitation Speech: normal rate, tone and rhythm, appropriate rick, and coherent speech Mood: okay Affect: congruent with stated mood, broad, full range of affect, and friendly LOC/Orientation: Awake and Alert, oriented to person, place, time, and general circumstances Cognition/Development/Knowledge: Cognition appears grossly normal, appropriate fund of knowledge for age and level of education Thought Process: linear, organized, goal-directed, and easily understandable, fluid thought-process Thought Content/Perceptions (AVH): clear, age-appropriate, on topic , mood- congruent, denies auditory/visual hallucination, and does not appear to be reacting to internal stimuli Suicidal Ideation: denied Homicidal Ideation: denied Reliability: patient appears to be reliable and cooperative informant Insight: fair Judgment: fair Medications: Scheduled: Current Scheduled Medications[1] As needed: Current PRN Medications[2] Labs in last 18 hours CBC WBC ?? Hb ?? Plt ?? Hct ?? ANC ?? INR ??, PTT ??, Anti-Xa ?? BMP Na ?? Cl ?? BUN ?? Glu ?? K ?? Co2 ?? Cr ?? Ca ?? iCa ?? Mg ??, Phos ?? Lactate ?? LFT AST ?? AlkPhos ?? T Prot ?? ALK ?? Bili ?? Alb ?? D.Bili ?? Encounter Date: 01/11/25 ECG Adult Result Value EKG DIAGNOSIS CLASS Abnormal Ventricular Rate 66 QRSD Interval 96 QT Interval 414 QTC Interval 434 R [place] 38 T Wave [place] 94 Diagnosis Atrial fibrillation with premature ventricular or aberrantly conducted complexes Diagnosis Indeterminate axis Diagnosis Abnormal ECG Diagnosis Diagnosis Confirmed by Osmin Valerio ([id number]) on 01/13/2025 5:12:51 PM *Note: Due to a large number of results and/or encounters for the requested time period, some results have not been displayed. A complete set of results can be found in Results Review. Assessment/Plan ASSESSMENT/PLAN Risk Assessment: Patient is currently at an acutely elevated risk of harm to self or others given active suicidal ideation. Patient is demonstrating ACTIVE suicidal intent, DOES NOT appear to be able to control impulsivity, and IS exhibiting pervasive mood symptom burden impacting daily functioning. They currently affirm plan described as obtaining a firearm. This plan was noted to be PLAUSIBLE, of HIGH lethality, and consistent with LIMITED access to means based on evaluation. It should be noted that this patient is at a chronically elevated risk at baseline due to the following exhibited risk factors NOT modifiable by hospitalization demonstrated in their history: living alone, chronic medical/physical illness, and family discord. The patient does, however, exhibit the following strengths/protective factors: calm/cooperative, adherent to current medications, denying access to firearms, and able to identify reasons for living, exercising self direction, cultural/spiritual sabianist involvement, access to housing, and good interpersonal relationships and supports. Risk factors modifiable by psychiatric hospitalization include acute exacerbation of a suspected psychiatric condition requiring treatment and are recommended to be addressed by initiating treatment for signs/symptoms of suspected psychiatric condition as appropriate. Involuntary hospitalization on a 72 hour hold for safety, further psychiatric evaluation, and crisis stabilization is currently indicated. Patient is holdable under KRS as he does meet ALL hold criteria: having a mental illness, being an acute risk of harm to self or others, reasonable expectation of benefit from admission, AND inpatient being least restrictive means of treatment. Formulation: Braeden Palmer is a 84 y.o. male with a PMHx of CHF, CKD, HTN, Type II DM, CAD, Prostate Cancer, Hyperlipidemia, and A-Fib and no reported psychiatric history who presented to [facility] via private vehicle driven by other from home on 01/11/25 with concerns of active suicidal ideation with attempts to obtain lethal means. They were subsequently admitted to [facility] 01/12/25 on 72 hour hold for continued evaluation and management of suicidal ideation. Psychiatric history significant for no prior inpatient admissions. Recent psychosocial stressors of of in 2023, worsening health issues, diagnosis with prostate cancer, living alone. Most likely diagnosis at this time is unspecified mood disorder, given depressed mood, suicidal ideation with attempt to obtain means, anhedonia, feelings of guilt, decreased energy, decreased appetite and weight loss. Difficult to exclude MDD given the above symptoms that have been present for greater than 2 weeks. Also difficult to exclude adjustment disorder given the above symptoms presented following multiple stressors. Admit Status: Involuntary - 72hr hold signed by [facility] attending. Hold start date/time 09/11/24 at 11:33, hold end date/time 01/17 at 08:00 Diagnoses: PSYCHIATRIC MANAGEMENT 1.) Unspecified mood disorder CGI Status: Compared to admission, how much has the pt's condition changed? 4 (no change) PLAN: Admission to [facility] for further inpatient psychiatric management Increase Lexapro to 10 mg daily Behavioral checks q15 minutes per unit protocol Acute Agitation Medications: Deferred at this time Notify physician if medications for agitation required Comfort medications PRN Encourage participation in groups and benefit from therapeutic milieu Daily meetings and supportive therapy from treatment team MEDICAL MANAGEMENT 1.) Atrial fibrillation: Continue Eliquis 2.5 mg BID, carvedilol 3.125 mg BID 2.) T2DM: A1C 7.7 on 12/19/24. Sliding scale insulin, carb consistent diet, continue gabapentin 300mg qam and 600 mg at bedtime, continue pancrelipase TID w/ meals 3.) CAD: Continue Plavix 75 mg daily and start atorvastatin 20 mg nightly as simvastatin not on formulary 4.) CKD stage III: BL Cr 1.6-2.0 mg/dL; avoid nephrotoxic drugs 5.) History of prostate cancer/urinary retention: Continue flomax 0.4 mg nightly, prednisone 5 mg daily, pantoprazole 40 mg daily 6.) Constipation: Continue Miralax 17 g daily Disposition: Home w/ sons Barriers to discharge: Symptom burden, safety planning This patient was staffed with attending psychiatrist, Dr. Nicholas, who agrees with the assessment and plan. JIA Sharpe PGY1 [1] allopurinol, 100 mg, Oral, BID apixaban, 2.5 mg, Oral, BID atorvastatin, 20 mg, Oral, Nightly carvedilol, 3.125 mg, Oral, BID clopidogrel, 75 mg, Oral, Daily empagliflozin, 10 mg, Oral, Daily [START ON 01/15/2025] escitalopram, 10 mg, Oral, Daily escitalopram, 5 mg, Oral, Once gabapentin, 300 mg, Oral, Daily gabapentin, 600 mg, Oral, Nightly insulin lispro, 0-5 Units, Subcutaneous, TID with meals insulin lispro, 0-3 Units, Subcutaneous, Twice at night pancrelipase (Tug-Nygd-Hqrb), 1 capsule, Oral, TID with meals pantoprazole, 40 mg, Oral, Daily polyethylene glycol, 17 g, Oral, Daily predniSONE, 5 mg, Oral, Daily tamsulosin, 0.4 mg, Oral, Nightly [2] PRN medications: acetaminophen, aluminum & magnesium hydroxide-simethicone, benzocaine, calcium carbonate, glucose OR [DISCONTINUED] dextrose 10 % OR [DISCONTINUED] dextrose 10 % OR glucagon (human recombinant), hydrOXYzine pamoate, magnesium hydroxide, melatonin, ocular lubricant, sodium chloride Cosigned by Davina Nicholas DO at 01/14/2025 1:12 PM EST Associated attestation - Davina Nicholas DO - 01/14/2025 1:12 PM EST I saw and evaluated the patient with the resident/fellow. I discussed the case with the resident/fellow and agree with the findings and plan as documented. * Group Note - Antoni Ortiz - 01/14/2025 11:24 AM EST Group Topic: Reminiscence Group Date: 01/14/2025 Start Time: 929 End Time: 1019 Facilitators: Willie Funk; Antoni Ortiz Department: [facility] Inpatient Psychiatry Number of Participants: 8 Group Focus: feeling awareness/expression and reminiscence Treatment Modality: Patient-Centered Therapy Interventions utilized were group exercise and reminiscence Purpose: increase insight Name: Braeden Palmer Date of : 1940 MR: [id number] Level of Participation: moderate Quality of Participation: Sharing and Attentive Interactions with others: gave feedback Mood/Affect: appropriate Triggers (if applicable): n/a Cognition: coherent/clear Progress: Moderate Response: appropriate, reflective Plan: patient will be encouraged to attend additional group sessions Patients Problems: Patient Active Problem List Diagnosis Obesity (BMI 35.0-39.9 without comorbidity) Unspecified mood (affective) disorder (CMS/HCC) * Care Plan - Ulises Velez RN - 01/14/2025 5:22 AM EST Problem: Adult Behavioral Health Plan of Care Goal: Plan of Care Review Outcome: Ongoing, Progressing Flowsheets (Taken 01/14/2025 0513) Progress: improving Patient Agreement with Plan of Care: agrees Plan of Care Reviewed With: patient Goal: Patient-Specific Goal (Individualization) Outcome: Ongoing, Progressing Flowsheets Taken 01/14/2025 0513 Patient Personal Strengths: expressive of needs expressive of emotions Patient Vulnerabilities: lacks insight into illness Taken 01/13/2025 2100 Patient/Family-Specific Goals (Include Timeframe): Pt will remain free of falls/injury through the shifts today Individualized Care Needs: 1:1 sitter for safety Anxieties, Fears or Concerns: Expresses concern that it oswaldo take long for him to get well Goal: Adheres to Safety Considerations for Self and Others Outcome: Ongoing, Progressing Flowsheets (Taken 01/14/2025512) Adheres to Safety Considerations for Self and Others: making progress toward outcome Intervention: Develop and Maintain Individualized Safety Plan Flowsheets (Taken 01/14/2025512) Safety Measures: monitored by video 1:1 observation maintained Goal: Optimized Coping Skills in Response to Life Stressors Outcome: Ongoing, Progressing Flowsheets (Taken 01/14/2025512) Optimized Coping Skills in Response to Life Stressors: making progress toward outcome Intervention: Promote Effective Coping Strategies Flowsheets (Taken 01/14/2025512) Supportive Measures: active listening utilized goal-setting facilitated Goal: Develops/Participates in Therapeutic [place] to Support Successful Transition Outcome: Ongoing, Progressing Flowsheets (Taken 01/14/2025512) Develops/Participates in Therapeutic [place] to Support Successful Transition: making progress toward outcome Intervention: Foster Therapeutic [place] Flowsheets (Taken 01/14/2025512) Trust Relationship/Rapport: care explained choices provided emotional support provided empathic listening provided questions answered questions encouraged Intervention: Mutually Develop Transition Plan Flowsheets (Taken 01/14/2025512) Transition Support: community resources reviewed Anticipated Discharge Disposition: home or self-care Transportation Concerns: none Current Discharge Risk: psychiatric illness Concerns to be Addressed: mental health Readmission Within the Last 30 Days: no previous admission in last 30 days Patient/Family Anticipates Transition to: home Problem: Suicide Risk Goal: Absence of Self-Harm Outcome: Ongoing, Progressing Intervention: Assess Risk to Self and Maintain Safety Flowsheets (Taken 01/14/2025512) Behavior Management: behavioral plan developed Enhanced Safety Measures: monitored by video other (see comments) Intervention: Promote Psychosocial Wellbeing Flowsheets (Taken 01/14/2025512) Supportive Measures: active listening utilized goal-setting facilitated Family/Support System Care: caregiver stress acknowledged Sleep/Rest Enhancement: awakenings minimized Intervention: Establish Safety Plan and Continuity of Care Flowsheets (Taken 01/14/2025512) Safe Transition Promotion: access to lethal means addressed protective factors promoted Problem: Suicide Risk Goal: Absence of Self-Harm Outcome: Ongoing, Progressing Intervention: Assess Risk to Self and Maintain Safety Flowsheets (Taken 01/14/2025512) Behavior Management: behavioral plan developed Enhanced Safety Measures: monitored by video other (see comments) Intervention: Promote Psychosocial Wellbeing Flowsheets (Taken 01/14/2025512) Supportive Measures: active listening utilized goal-setting facilitated Family/Support System Care: caregiver stress acknowledged Sleep/Rest Enhancement: awakenings minimized Intervention: Establish Safety Plan and Continuity of Care Flowsheets (Taken 01/14/2025 0513) Safe Transition Promotion: access to lethal means addressed protective factors promoted * Nursing Note - Ulises Velez RN - 01/14/2025 5:02 AM EST Pt continues admission on adult U. Pt kept to his room all through the [employer]. Continues to have 1:1 avionics safety inspector. Pt is AAOx4. He was cooperative with staff but was very hesitant taking his HS medication, insistingb that he already took them though he hadn't. Pt was eventually persuadedenough to accept the medications. Pt stated that he was admitted because of suicidal thoughts, endorsed the thoughts still present though improving. Pt commits to safety here, verbalizing he feels hecan keep himself safe in here. He rated depression 5/10, anxiety 2/10 and hopelessness very high, I don't know how to give it a number. Pt endorsed SI, denied HI and AVH. [facility] Pt was encouraged to voice any safety concerns to staff. Will continue medicating per [facility] and implementing plan of care. * Nursing Note - Alize Carver RN - 01/13/2025 6:47 PM EST Pt continues admission on adult behavioral health unit. Pt out and about on the unit today- interactive and cooperative with staff. Hygiene, hydration, and nutrition encouraged. Pt presents with calm mood and full affect. Pt denies SI/HI/AVH at this time. No signs of physical distress noted. Pt alert and oriented x4. Thought content appears grossly organized. Vital signs stable. Pt continues to comply with medication regimen, and will continue to be medicated per EMAR. Encouragement provided and will continue to monitor for safety, encourage patient to voice safety concerns, and implement current plan of care. * Care Plan - Alize Carver RN - 01/13/2025 6:47 PM EST Problem: Adult Behavioral Health Plan of Care Goal: Plan of Care Review Outcome: Ongoing, Progressing Flowsheets (Taken 01/13/20251845) Progress: improving Patient Agreement with Plan of Care: agrees Plan of Care Reviewed With: patient Goal: Patient-Specific Goal (Individualization) Outcome: Ongoing, Progressing Flowsheets Taken 01/13/20251845 Patient Personal Strengths: expressive of emotions expressive of needs Patient Vulnerabilities: lacks insight into illness Taken 01/13/20251816 Patient/Family-Specific Goals (Include Timeframe): Patient will be medication compliant this shift Individualized Care Needs: 15 minute checks Anxieties, Fears or Concerns: Fear about the length of stay Goal: Adheres to Safety Considerations for Self and Others Outcome: Ongoing, Progressing Flowsheets (Taken 01/13/20251845) Adheres to Safety Considerations for Self and Others: making progress toward outcome Intervention: Develop and Maintain Individualized Safety Plan Flowsheets (Taken 01/13/20251845) Safety Measures: monitored by video Goal: Optimized Coping Skills in Response to Life Stressors Outcome: Ongoing, Progressing Flowsheets (Taken 01/13/20251845) Optimized Coping Skills in Response to Life Stressors: making progress toward outcome Intervention: Promote Effective Coping Strategies Flowsheets (Taken 01/13/20251845) Supportive Measures: active listening utilized Goal: Develops/Participates in Therapeutic [place] to Support Successful Transition Outcome: Ongoing, Progressing Flowsheets (Taken 01/13/20251845) Develops/Participates in Therapeutic [place] to Support Successful Transition: making progress toward outcome Intervention: Foster Therapeutic [place] Flowsheets (Taken 01/13/20251845) Trust Relationship/Rapport: care explained choices provided empathic listening provided questions answered thoughts/feelings acknowledged reassurance provided questions encouraged emotional support provided Intervention: Mutually Develop Transition Plan Flowsheets (Taken 01/13/20251845) Outpatient/Agency/Support Group Needs: outpatient psychiatric care (specify) Transition Support: community resources reviewed Transportation Anticipated: family or friend will provide Anticipated Discharge Disposition: home or self-care Transportation Concerns: none Current Discharge Risk: psychiatric illness Concerns to be Addressed: mental health Readmission Within the Last 30 Days: no previous admission in last 30 days Patient/Family Anticipated Services at Transition: none Patient/Family Anticipates Transition to: home Offered/Gave Vendor List: no Problem: Suicide Risk Goal: Absence of Self-Harm Outcome: Ongoing, Progressing Intervention: Assess Risk to Self and Maintain Safety Flowsheets (Taken 01/13/20251845) Behavior Management: behavioral plan developed Enhanced Safety Measures: monitored by video Self-Harm Prevention: environmental self-harm risks assessed Intervention: Promote Psychosocial Wellbeing Flowsheets (Taken 01/13/20251845) Supportive Measures: active listening utilized Family/Support System Care: caregiver stress acknowledged Sleep/Rest Enhancement: awakenings minimized Intervention: Establish Safety Plan and Continuity of Care Flowsheets (Taken 01/13/20251845) Safe Transition Promotion: access to lethal means addressed * Group Note - Bonny Kaplan - 01/13/2025 11:03 AM EST Group Topic: Goals Group Date: 01/13/2025 Start Time: 1014 End Time: 1055 Facilitators: Bonny Kaplan Department: [facility] Inpatient Psychiatry Number of Participants: 17 Group Focus: Goals Treatment Modality: Discussion Interventions utilized were: N/A Purpose: Goal setting Name: Braeden Palmer Date of : 1940 MR: [id number] Level of Participation: Good Quality of Participation: Good Interactions with others: Appropriate Mood/Affect: Appropriate Triggers (if applicable): N/A Cognition: N/A Progress N/A Response: N/A Plan: Continue facilitating group Patients Problems: Patient Active Problem List Diagnosis Obesity (BMI 35.0-39.9 without comorbidity) Unspecified mood (affective) disorder (CMS/HCC) * Progress Notes - Gabi Turcios MBBS - 01/13/2025 10:30 AM EST Images from the original note were not included. [facility] Daily Progress Note 01/13/25 Hospital Day #1 Subjective: Per nursing and whiteboard discussion: Nursing reports that in the last 24 hours, patient Braeden Palmer, was calm, cooperative, and required no PRN medications for acting out behaviors Per Resident/Rounds Interview: Braeden Palmer states that overnight they slept well without nighttime awakenings. This morning, they feel okay. They report No side effects due to medications. He denies any past SA. Denies active SI/HI/AVH. Talks about stressors and circumstances that led to his current suicidal ideation. Additional Collateral: No ROS: (2-9) Patient denies any problems with pain, N&V, dizziness, or muscle stiffness PFSH: (1) Past Medical History: This was reviewed from the H&P and is unchanged Family Medical History: This was reviewed from the H&P and is unchanged Social History: This was reviewed from the H&P and is unchanged Past Surgical History: This was reviewed from the H&P and is unchanged Objective: Temp: [36.7 ??C (98.1 ??F)] 36.7 ??C (98.1 ??F) Heart Rate: [62-73] 64 BP: (119-146)/(63-77) 119/70 Sleep: Sleep Total Hours of Sleep: 8 (2200-) Meals: I&O: I/O last 3 completed shifts: In: 300 (2.7 mL/kg) [P.O.:300] Out: - (0 mL/kg) Weight: 111.1 kg No intake/output data recorded. EXAMINATION: (12 elements/ 2 systems) Neuro: Gait and station are intact. The muscle tone is intact and all the patient moves all extremities. Mental Status Exam: Appearance: appears stated age, well nourished, wearing hospital attire, well- kempt, and good hygiene Behavior: calm, cooperative, age-appropriate, easy to establish rapport, forthcoming about condition and reasons for presentation, and non-verbal body language and communication appropriate throughout interview Eye Contact: appropriate Involuntary Movements: absent Psychomotor Activity: no significant depression or agitation Speech: normal rate, tone and rhythm, appropriate rick, and coherent speech Mood: okay Affect: congruent with stated mood, broad, full range of affect, and friendly LOC/Orientation: Awake and Alert, oriented to person, place, time, and general circumstances Cognition/Development/Knowledge: Cognition appears grossly normal, appropriate fund of knowledge for age and level of education Thought Process: linear, organized, goal-directed, and easily understandable, fluid thought-process Thought Content/Perceptions (AVH): clear, age-appropriate, on topic , mood- congruent, denies auditory/visual hallucination, and does not appear to be reacting to internal stimuli Suicidal Ideation: does not confirm, asks for breakfast in response Homicidal Ideation: denied Reliability: patient appears to be reliable and cooperative informant Insight: fair Judgment: poor Medications: Scheduled: Current Scheduled Medications[1] As needed: Current PRN Medications[2] Labs in last 18 hours CBC WBC 6.68 Hb 10.2 (L) Plt 177 Hct 31.8 (L) ANC 3.81 INR ??, PTT ??, Anti-Xa ?? BMP Na 139 Cl 103 BUN 25 (H) Glu 143 (H) K 4.0 Co2 30 (H) Cr 1.41 (H) Ca 9.0 iCa ?? Mg ??, Phos 4.3 Lactate ?? LFT AST 13 AlkPhos 72 T Prot 6.0 (L) ALK 6 (L) Bili 0.5 Alb ?? D.Bili ?? Encounter Date: 01/11/25 ECG Adult Result Value EKG DIAGNOSIS CLASS Abnormal Ventricular Rate 66 QRSD Interval 96 QT Interval 414 QTC Interval 434 R [place] 38 T Wave [place] 94 Diagnosis Atrial fibrillation with premature ventricular or aberrantly conducted complexes Diagnosis Indeterminate axis Diagnosis Abnormal ECG *Note: Due to a large number of results and/or encounters for the requested time period, some results have not been displayed. A complete set of results can be found in Results Review. Assessment/Plan ASSESSMENT/PLAN Risk Assessment: Patient is currently at an acutely elevated risk of harm to self or others given active suicidal ideation. Patient is demonstrating ACTIVE suicidal intent, DOES NOT appear to be able to control impulsivity, and IS exhibiting pervasive mood symptom burden impacting daily functioning. They currently affirm plan described as obtaining a firearm. This plan was noted to be PLAUSIBLE, of HIGH lethality, and consistent with LIMITED access to means based on evaluation. It should be noted that this patient is at a chronically elevated risk at baseline due to the following exhibited risk factors NOT modifiable by hospitalization demonstrated in their history: living alone, chronic medical/physical illness, and family discord. The patient does, however, exhibit the following strengths/protective factors: calm/cooperative, adherent to current medications, denying access to firearms, and able to identify reasons for living, exercising self direction, cultural/spiritual sabianist involvement, access to housing, and good interpersonal relationships and supports. Risk factors modifiable by psychiatric hospitalization include acute exacerbation of a suspected psychiatric condition requiring treatment and are recommended to be addressed by initiating treatment for signs/symptoms of suspected psychiatric condition as appropriate. Involuntary hospitalization on a 72 hour hold for safety, further psychiatric evaluation, and crisis stabilization is currently indicated. Patient is holdable under KRS A as he does meet ALL hold criteria: having a mental illness, being an acute risk of harm to self or others, reasonable expectation of benefit from admission, AND inpatient being least restrictive means of treatment. Formulation: Braeden Palmer is a 84 y.o. male with a PMHx of CHF, CKD, HTN, Type II DM, CAD, Prostate Cancer, Hyperlipidemia, and A-Fib and no reported psychiatric history who [facility] private vehicle driven by other from home on 01/11/25 with concerns of active suicidal ideation with attempts to obtain lethal means. They were subsequently admitted to [facility] 01/12/25 on 72 hour hold for continued evaluation and management of suicidal ideation. Psychiatric history significant for no prior inpatient admissions. Recent psychosocial stressors of of in 2023, worsening health issues, diagnosis with prostate cancer, living alone. Most likely diagnosis at this time is unspecified mood disorder, given depressed mood, suicidal ideation with attempt to obtain means, anhedonia, feelings of guilt, decreased energy, decreased appetite and weight loss. Difficult to exclude MDD given the above symptoms that have been present for greater than 2 weeks. Also difficult to exclude adjustment disorder given the above symptoms presented following multiple stressors. Admit Status: Involuntary - 72hr hold signed by [facility] attending. Hold start date/time 09/11/24 at 11:33, hold end date/time 01/17 at 08:00 Diagnoses: PSYCHIATRIC MANAGEMENT 1.) Unspecified mood disorder CGI Status: Compared to admission, how much has the pt's condition changed? 4 (no change) PLAN: Admission to [facility] for further inpatient psychiatric management Continue Lexapro 5 mg daily, consider increasing Behavioral checks q15 minutes per unit protocol Acute Agitation Medications: Deferred at this time Notify physician if medications for agitation required Comfort medications PRN Encourage participation in groups and benefit from therapeutic milieu Daily meetings and supportive therapy from treatment team MEDICAL MANAGEMENT 1.) Atrial fibrillation: Continue Eliquis 2.5 mg BID, carvedilol 3.125 mg BID 2.) T2DM: A1C 7.7 on 12/19/24. Sliding scale insulin, carb consistent diet, continue gabapentin 300mg qam and 600 mg at bedtime, continue pancrelipase TID w/ meals 3.) CAD: Continue Plavix 75 mg daily and start atorvastatin 20 mg nightly as simvastatin not on formulary 4.) CKD stage III: BL Cr 1.6-2.0 mg/dL; avoid nephrotoxic drugs 5.) History of prostate cancer/urinary retention: Continue flomax 0.4 mg nightly, prednisone 5 mg daily, pantoprazole 40 mg daily 6.) Constipation: Continue Miralax 17 g daily Disposition: Home w/ sons Barriers to discharge: Symptom burden, safety planning This patient was staffed with attending psychiatrist, Dr. Kang, who agrees with the assessment and plan. JIA Sharpe PGY1 [1] allopurinol, 100 mg, Oral, BID apixaban, 2.5 mg, Oral, BID atorvastatin, 20 mg, Oral, Nightly carvedilol, 3.125 mg, Oral, BID clopidogrel, 75 mg, Oral, Daily empagliflozin, 10 mg, Oral, Daily escitalopram, 5 mg, Oral, Daily gabapentin, 300 mg, Oral, Daily gabapentin, 600 mg, Oral, Nightly insulin lispro, 0-5 Units, Subcutaneous, TID with meals insulin lispro, 0-3 Units, Subcutaneous, Twice at night pancrelipase (Wdp-Afpo-Fevd), 1 capsule, Oral, TID with meals pantoprazole, 40 mg, Oral, Daily polyethylene glycol, 17 g, Oral, Daily predniSONE, 5 mg, Oral, Daily tamsulosin, 0.4 mg, Oral, Nightly [2] PRN medications: acetaminophen, aluminum & magnesium hydroxide-simethicone, glucose OR dextrose 10 % OR dextrose 10 % OR glucagon (human recombinant), magnesium hydroxide Cosigned by Davina Kang MD at 01/13/2025 11:57 AM EST Associated attestation - Davina Kang MD - 01/13/2025 11:57 AM EST I saw and evaluated the patient with the resident/fellow. I discussed the case with the resident/fellow and agree with the findings and plan as documented. * Nursing Note - Clinton Heller RN - 01/13/2025 2:25 AM EST Patient alert and oriented X4. Patient on nasal canula and on 2L of Oxygen. Patient states feeling ok today. Patient presents with depressed mood. Patient noted to be cooperative with staff. Patient rates depression 6 on scale 0-10 (10 being the worst). Patient rates anxiety 0 on scale 0-10 (10 being the worst). Patient denies feeling hopeless about the future. Patient denies SI/HI/AVH. Patient denies self-harm thoughts and behaviors. Patient reported no pain and having good sleeping. Patient reported having normal appetite. No signs of physical distress noted. Though content appears grossly organized. Vital signs stable. Patient compliant with medication regimen and will continue to be medi cated per [facility]. Patient encouraged to notify staff of any concerns. Continue current plan of care. Patient is progressing toward treatment goals, Absence of Self-Harm,Optimized Coping Skills in Response to Life Stressors. Staff will continue to provide encouragementand monitor patient Q15min checks as well as hourly nursing rounds. * Care Plan - Clinton Heller RN - 01/12/2025 10:21 PM EST Problem: Adult Behavioral Health Plan of Care Goal: Plan of Care Review Outcome: Ongoing, Progressing Flowsheets (Taken 01/12/20252217) Progress: improving Patient Agreement with Plan of Care: agrees Plan of Care Reviewed With: patient Goal: Patient-Specific Goal (Individualization) Outcome: Ongoing, Progressing Flowsheets Taken 01/12/20252217 by Clinton Heller RN Patient/Family-Specific Goals (Include Timeframe): Patient will be able to report sleeping well tonight Individualized Care Needs: 1:1 sitter for safety Anxieties, Fears or Concerns: Denies anxiety, concerns Taken 01/12/20251356 by Leif Vicente Patient Personal Strengths: expressive of needs expressive of emotions Patient Vulnerabilities: poor physical health Goal: Adheres to Safety Considerations for Self and Others Outcome: Ongoing, Progressing Flowsheets (Taken 01/12/20252217) Adheres to Safety Considerations for Self and Others: making progress toward outcome Intervention: Develop and Maintain Individualized Safety Plan Flowsheets (Taken 01/12/20252217) Safety Measures: monitored by video suicide assessment completed safety rounds completed Goal: Optimized Coping Skills in Response to Life Stressors Outcome: Ongoing, Progressing Flowsheets (Taken 01/12/20252217) Optimized Coping Skills in Response to Life Stressors: making progress toward outcome Intervention: Promote Effective Coping Strategies Flowsheets (Taken 01/12/2025 1357 by Leif Vicente) Supportive Measures: active listening utilized decision-making supported self-responsibility promoted self-care encouraged verbalization of feelings encouraged Goal: Develops/Participates in Therapeutic [place] to Support Successful Transition Outcome: Ongoing, Progressing Flowsheets (Taken 01/12/20252217) Develops/Participates in Therapeutic [place] to Support Successful Transition: making progress toward outcome Intervention: Foster Therapeutic [place] Flowsheets (Taken 01/12/20252217) Trust Relationship/Rapport: care explained questions encouraged choices provided reassurance provided emotional support provided empathic listening provided questions answered Intervention: Mutually Develop Transition Plan Flowsheets (Taken 01/12/20252217) Concerns to be Addressed: mental health medication Readmission Within the Last 30 Days: no previous admission in last 30 days Problem: Suicide Risk Goal: Absence of Self-Harm Outcome: Ongoing, Progressing Intervention: Assess Risk to Self and Maintain Safety Flowsheets (Taken 01/12/20252217) Enhanced Safety Measures: monitored by video Self-Harm Prevention: environmental self-harm risks assessed Intervention: Promote Psychosocial Wellbeing Flowsheets Taken 01/12/20252217 by Cilnton Heller RN Sleep/Rest Enhancement: awakenings minimized noise level reduced Taken 01/12/2025 1357 by Leif Vicente Supportive Measures: active listening utilized decision-making supported self-responsibility promoted self-care encouraged verbalization of feelings encouraged * H&P - Roberto Leon MD - 01/12/2025 3:31 PM ESTAssociated Order(s): Inpatient consult to Psychiatry Images from the original note were not included. Initial Psychiatry Evaluation 01/12/25 Inpatient consult to Psychiatry Consult performed by: Roberto Leon MD Consult ordered by: Kesha Mcgill APRN Chief Complaint: I'm tired of everything Subjective Patient is a 84 y.o. male with a reported history of CHF, CKD, HTN, Type II DM, CAD, Prostate Cancer, Hyperlipidemia, and A-Fib who presented to [facility] with active suicidal ideation and multiple attempts to gain lethal means. [facility] for further management of SI. Per [facility] Documentation: Patient reported having SI that has worsened over the past month. Patient endorsed a plan of using a firearms stating If I had a gun, I would've used it. Guns were removed from the household by hissons approx 1mo ago. Patient reported one of his main stressors was all my health problems. Patient denied CP, worsening SOB, significant weight gain, fever, chills, confusion, and leg swelling. He added that he recently having an upper GI workup completed due to melena. He was given instructions to return to the ED tomorrow if melena persisted. Patient stated that he has had improvement. Denies HI and AVH. We were given permission to contact his sons for collateral. Collateral stated that patient's health has declined within the past 1-1.5 yrs. That he has had many stressors contributing to his presentation. Patient's brother passed approx 1-2mo ago. His first committed suicide approx 33yrs ago, and his second passed in June 2023. Not long after her passing, the patient was then diagnosed with prostate cancer, and after that, his health started to decline. The patient is supposed to see his guest relations representative in regards to his CHF and scheduling to get a pacemaker this upcoming . Per evaluation on the [facility]: Patient seen and evaluated in his room upon arrival to the [facility]. When asked what brings him to the hospital he states ???I am tired, I am tired of everything?? . He reports that he has been having feelings of no longer wanting to be alive for the past several months, however he has never wanted to act on these because he did not want to hurt his family. He notes that his oldest son's mother, his 1st , by suicide. However he states that recently he has just felt like he can not bear it anymore, which is why he was looking to find a gun as described above. He states that his in June of 2023, and since then he feels like nothing has gone right. He has had a lot of health issues and was diagnosed with prostate cancer 7 months ago. Since then he states that he hates living alone and has a lot of trouble with this. He reports that recently his 2 sons have been alternating staying with him so he is not alone. He also reports that they removed all of his guns from his home. He reports that he has 2 sons (age 65 and 48) and 1 daughter (age 64). He states that his daughter ???will not help him with anything?? . He states that he feels overwhelmed by all of his medical care.He reports that he has to take 15 different pills every morning and keeping up with that and makingsure that his blood pressure is doing all right has been very stressful. He also notes that he no longer enjoys doing things that he did previously. He reports that he frequently would cook large meals for himself as well as his family. He reports that he used to go to muslim twice a week with his , but they stopped going in 2019. He reports that he used to send them a tithe every month but has not done that for the last 2 months. He no longer enjoys cooking even though he reports that his grandchildren still talk about how much they enjoy the breakfast that he used to cook. He states that there have been no more recent stressors, but he does note that his home health PT and OT stopped coming last week. He states that he has had decreased energy and appetiteand that he has lost a significant amount of weight recently. He also feels like he worries all of the time. He states that he just hopes that we can do something that will make him stop feeling likethis while he is here. Stressors: Recent decline in health, loss of , living alone Supports: 2 sons Access to lethal weapons: Denies Reasons to live: Family, great grandchildren Collateral: Per [facility] documentation: Per collateral, the patient today made statements stating that he has been praying to god to , and why can't I go. Collateral stated that the patient requested that they leave him alone in theirtruck. Patient informed collateral they knew of his firearm under his the truck seat. Collateral stated that the patient then began to beg for the weapon for over 20mins. After their interaction, thepatient left and went to different stores/ people in town to either try to purchase or borrow a firearm. Patient's sons confirmed these events with three different individuals. Collateral stated that he was voicing SI, but never acted with intent till today. They then broughtthe patient to [facility] for evaluation. Patient currently lives with his two sons. Psychiatric Review Of Systems: Sleep: no change Appetite changes: decreased Weight changes: weight loss Energy: decreased Anhedonia: present Guilt: present Concentration difficulty: absent Anxiety: present Panic attacks: no Suicidal thoughts: yes Homicidal thoughts: no Auditory/visual hallucinations: denies Kylah: absent Past Psychiatric History: Diagnoses: Denies any previous mental health diagnoses Medications: Lexapro 5 mg, 1st dispensed 11/28/2024 Outpatient: No psychiatrist outpatient, has never done therapy before Inpatient: Denies any previous mental health hospitalizations Previous suicide attempts: Denied Past trauma history: 1st by suicide Past Medical History[1] Allergies[2] Family History: Psychiatric Diagnoses: Son with bipolar disorder Suicides: Denies Social History: Education: Unknown Current living situation: Lives alone Family: 2 sons, 1 daughter, multiple grandchildren and great-grandchildren Romantic relationship: in 2023 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 A 14 point review of systems was otherwise negative. Objective Visit Vitals BP (!) 142/63 Pulse 73 Temp 36.4 ??C (97.6 ??F) Ht 1.829 m (6') Wt 111 kg (245 lb 9.6 oz) SpO2 93% BMI 33.31 kg/m?? Smoking Status Former BSA 2.37 m?? Mental Status Evaluation: Appearance: appears stated age, wearing hospital attire, disheveled Attitude: cooperative, interested in treatment Eye Contact: appropriate Speech: appropriate rate and volume, non-pressured Involuntary Movements: absent Psychomotor Activity: no significant depression or agitation Level of Consciousness: alert and attentive Memory: grossly intact Mood: depressed Affect: constricted Thought Process: linear, organized, goal-directed Thought Content: no overt delusions, not responding to internal stimuli AVH: denied SI: active HI: denied Insight: fair Judgment: poor Physical Exam: General: alert, no acute distress Eyes: extraocular movements intact, conjunctivae clear ENT: external ears normal Heart: appears well-perfused Lungs: breathing comfortably on room air Abdomen: not appreciably distended Extremities: atraumatic Skin: warm and well perfused, no rashes or lesions noted over exposed skin Neuro: moving all 4 extremities spontaneously Data: Recent Results (from the past 24 hours) POCT Glucose - Before Meals and Bedtime Collection Time: 01/12/25 8:17 AM Result Value Ref Range POCT Glucose 152 (A) 74 - 99 mg/dL Test Strip Lot Number [id number] Test Strip Expiration [id number] Assessment/Plan Diagnoses: Unspecified mood disorder Atrial fibrillation Type 2 diabetes CHF CAD CKD prostate cancer/urinary retention Constipation Risk Assessment: Patient is currently at an acutely elevated risk of harm to self or others given active suicidal ideation. Patient is demonstrating ACTIVE suicidal intent, DOES NOT appear to be able to control impulsivity, and IS exhibiting pervasive mood symptom burden impacting daily functioning. They currently affirm plan described as obtaining a firearm. This plan was noted to be PLAUSIBLE, of HIGH lethality, and consistent with LIMITED access to means based on evaluation. It should be noted that this patient is at a chronically elevated risk at baseline due to the following exhibited risk factors NOT modifiable by hospitalization demonstrated in their history: living alone, chronic medical/physical illness, and family discord. The patient does, however, exhibit the following strengths/protective factors: calm/cooperative, adherent to current medications, denying access to firearms, and able to identify reasons for living, exercising self direction, cultural/spiritual sabianist involvement, access to housing, and good interpersonal relationships and supports. Risk factors modifiable by psychiatric hospitalization include acute exacerbation of a suspected psychiatric condition requiring treatment and are recommended to be addressed by initiating treatment for signs/symptoms of suspected psychiatric condition as appropriate. Involuntary hospitalization on a 72 hour hold for safety, further psychiatric evaluation, and crisis stabilization is currently indicated. Patient is holdable under KRS as he does meet ALL hold criteria: having a mental illness, being an acute risk of harm to self or others, reasonable expectation of benefit from admission, AND inpatient being least restrictive means of treatment. Formulation: Braeden Palmer is a 84 y.o. male with a PMHx of CHF, CKD, HTN, Type II DM, CAD, Prostate Cancer, Hyperlipidemia, and A-Fib and no reported psychiatric history who presented to [facility] via private vehicle driven by other from home on 01/11/25 with concerns of active suicidal ideation with attempts to obtain lethal means. They were subsequently admitted to [facility] 01/12/25 on 72 hour hold for continued evaluation and management of suicidal ideation. Psychiatric history significant for no prior inpatient admissions. Recent psychosocial stressors of of in 2023, worsening health issues, diagnosis with prostate cancer, living alone. Most likely diagnosis at this time is unspecified mood disorder, given depressed mood, suicidal ideation with attempt to obtain means, anhedonia, feelings of guilt, decreased energy, decreased appetite and weight loss. Difficult to exclude MDD given the above symptoms that have been present for greater than 2 weeks. Also difficult to exclude adjustment disorder given the above symptoms presented following multiple stressors. Admit Status: Involuntary - 72hr hold signed by [facility] attending. Hold start date/time 09/11/24 at 11:33, hold end date/time 01/17 at 08:00 Diagnoses: PSYCHIATRIC MANAGEMENT 1.) Unspecified mood disorder CGI Status: Compared to admission, how much has the pt's condition changed? 4 (no change) PLAN: Admission to [facility] for further inpatient psychiatric management Continue Lexapro 5 mg daily, consider increasing Ordered EKG Ordered CBC, CMP, Phos, lipid panel, TSH Behavioral checks q15 minutes per unit protocol Acute Agitation Medications: Deferred at this time Notify physician if medications for agitation required Comfort medications PRN Encourage participation in groups and benefit from therapeutic milieu Daily meetings and supportive therapy from treatment team MEDICAL MANAGEMENT 1.) Atrial fibrillation: Continue Eliquis 2.5 mg BID, carvedilol 3.125 mg BID 2.) T2DM: A1C 7.7 on 12/19/24. Sliding scale insulin, carb consistent diet, continue gabapentin 300mg qam and 600 mg at bedtime, continue pancrelipase TID w/ meals 3.) CAD: Continue Plavix 75 mg daily and start atorvastatin 20 mg nightly as simvastatin not on formulary 4.) CKD stage III: BL Cr 1.6-2.0 mg/dL; avoid nephrotoxic drugs 5.) History of prostate cancer/urinary retention: Continue flomax 0.4 mg nightly, prednisone 5 mg daily, pantoprazole 40 mg daily 6.) Constipation: Continue Miralax 17 g daily Disposition: Home w/ sons Barriers to discharge: Symptom burden, safety planning Patient to be seen by attending, Dr. Kang, tomorrow 01/13/25 Roberto Leon MD Note to patient: The Cures Act makes medical notes like these available to patients inthe interest of transparency. However, be advised this is a medical document. It is intended as peer to peer communication. It is written in medical language and may contain abbreviations or verbiagethat are unfamiliar. It may appear blunt or direct. Medical documents are intended to carry relevant information, facts as evident, and the clinical opinion of the practitioner. [1] Past Medical History: Diagnosis Date Arthritis Coronary artery disease Diabetes mellitus GERD (gastroesophageal reflux disease) Gout Hyperlipidemia Hypertension [2] No Known Allergies Cosigned by Davina Kang MD at 01/12/2025 4:04 PM EST Associated attestation - Davina Kang MD - 01/12/2025 4:04 PM EST Signature only. * Nursing Note - Leif Vicente - 01/12/2025 2:51 PM EST Patient newly admitted adult behavioral health unit at 1235 pm. Pt interactive and cooperative withstaff during admission process. Pt presents with depressed mood and blunted affect. Pt denies HI/AVH at this time, reports having SI with a plan to shoot himself. No signs of physical distress noted.Pt alert and oriented x4 and pleasant/appropriate. Though content appears grossly organized. Vital signs stable. Pt complies with medication regimen and will continue to be medicated per [facility]. Encouragement provided and pt monitored for safety, encouraged patient to voice safety concerns, and continued to implement current plan of care. Pt oriented to unit, complied with skin assessment, and had b elongings, medications, and valuables secured. Pt negative for lice and contraband. * Care Plan - Leif Vicente - 01/12/2025 2:03 PM EST Problem: Adult Behavioral Health Plan of Care Goal: Plan of Care Review 01/12/20251356 by Leif Vicente Outcome: Ongoing, Progressing Flowsheets (Taken 01/12/20251356) Progress: no change Patient Agreement with Plan of Care: agrees Plan of Care Reviewed With: patient 01/12/20251354 by Leif Vicente Outcome: Ongoing, Progressing Goal: Patient-Specific Goal (Individualization) 01/12/20251356 by Leif Vicente Outcome: Ongoing, Progressing Flowsheets (Taken 01/12/20251356) Patient Personal Strengths: expressive of needs expressive of emotions Patient Vulnerabilities: poor physical health 01/12/20251354 by Leif Vicente Outcome: Ongoing, Progressing Goal: Adheres to Safety Considerations for Self and Others 01/12/20251356 by Leif Vicente Outcome: Ongoing, Progressing Flowsheets (Taken 01/12/20251356) Adheres to Safety Considerations for Self and Others: making progress toward outcome 01/12/20251354 by Leif Vicente Outcome: Ongoing, Progressing Intervention: Develop and Maintain Individualized Safety Plan Flowsheets (Taken 01/12/20251356) Safety Measures: monitored by video Goal: Optimized Coping Skills in Response to Life Stressors 01/12/20251356 by Leif Vicente Outcome: Ongoing, Progressing Flowsheets (Taken 01/12/20251356) Optimized Coping Skills in Response to Life Stressors: making progress toward outcome 01/12/20251354 by Leif Vicente Outcome: Ongoing, Progressing Intervention: Promote Effective Coping Strategies Flowsheets (Taken 01/12/20251356) Supportive Measures: active listening utilized decision-making supported self-responsibility promoted self-care encouraged verbalization of feelings encouraged Goal: Develops/Participates in Therapeutic [place] to Support Successful Transition 01/12/2025 135 by Leif Vicente Outcome: Ongoing, Progressing Flowsheets (Taken 01/12/20251356) Develops/Participates in Therapeutic [place] to Support Successful Transition: making progress toward outcome 01/12/20251354 by Leif Vicente Outcome: Ongoing, Progressing Intervention: Foster Therapeutic [place] Flowsheets (Taken 01/12/20251356) Trust Relationship/Rapport: care explained choices provided questions encouraged reassurance provided thoughts/feelings acknowledged Intervention: Mutually Develop Transition Plan Flowsheets (Taken 01/12/20251356) Concerns to be Addressed: medication mental health Readmission Within the Last 30 Days: no previous admission in last 30 days * ED Notes - Margi Morales RN - 01/12/2025 12:13 PM EST Patient was transferred to [facility] at this time via dispatch. He left with his belongings. * ED Notes - Margi Morales RN - 01/12/2025 12:11 PM EST Patient * Progress Notes - Kesha Mcgill APRN - 01/12/2025 11:11 AM EST [id number] Transfer I received sign-out and accepted care of this patient from the departing providers Vandana Carrera [id number] hour. Please see the primary providers' note for complete elements of the history, physical exam, and ED course. Braeden Palmer [id number] Admit Status: Involuntary - 72hr hold signed by [facility] attending. Hold start date/time 01/12/25 0727, hold end date/time 01/17/25 0800 Brief HPI: 84 y.o.male w/ reported history of depression who self-presented via private vehicle to [facility] for Suicidal ideations. Admit to [facility] for further evaluation and/or management of suicidal ideation with plan. UDS not collected. Collateral: Provider spoke to son, see note Vitals: 01/11/25 2115 BP: 126/67 Pulse: 73 Temp: 36.7 ??C (98 ??F) SpO2: 92% Labs Reviewed - No data to display No results found for this or any previous visit (from the past 4464 hours). Medications ordered: Medications acetaminophen (Tylenol) tablet 650 mg (has no administration in time range) aluminum & magnesium hydroxide-simethicone (Mylanta) 200-200-20 MG/5ML oral suspension 10 mL (has no administration in time range) magnesium hydroxide (Milk of Magnesia) 400 MG/5ML suspension 10 mL (has no administration in time range) hydrOXYzine pamoate (Vistaril) capsule 50 mg (has no administration in time range) glucose (Glutose) 40 % oral gel 15-30 grams of glucose (has no administration in time range) Or dextrose 10 % (D10W) bolus 125 mL (has no administration in time range) Or dextrose 10 % (D10W) bolus 250 mL (has no administration in time range) Or glucagon (human recombinant) injection 1 mg (has no administration in time range) insulin lispro (Admelog) 100 units/mL injection - Correction - Standard Dose (has no administrationin time range) insulin lispro (Admelog) injection - Correction - Nighttime Dose ( Subcutaneous Not Given 01/12/25 0216) apixaban (Eliquis) tablet 2.5 mg (has no administration in time range) carvedilol (Coreg) tablet 3.125 mg (has no administration in time range) clopidogrel (Plavix) tablet 75 mg (has no administration in time range) gabapentin (Neurontin) capsule 300 mg (has no administration in time range) gabapentin (Neurontin) capsule 600 mg (has no administration in time range) polyethylene glycol (Miralax) packet 17 g (has no administration in time range) predniSONE (Deltasone) tablet 5 mg (has no administration in time range) tamsulosin (Flomax) 24 hr capsule 0.4 mg (has no administration in time range) pantoprazole (Protonix) EC tablet 40 mg (has no administration in time range) escitalopram (Lexapro) tablet 5 mg (has no administration in time range) Admission Diagnosis: Major depressive disorder - F32.9 Follow-up: N/A The patient is appropriately stable for transport and handoff successfully provided to Roberto Leon, svitlana physician to [facility]. * ED Notes - Margi Morales RN - 01/12/2025 9:31 AM EST Report called to Leif Vicente RN at [facility] including the list of medications he was due this morning that were unavailable at [facility] and will need to be given at [facility]. Provider aware. * ED Provider Notes - Vandana Carrera PA - 01/11/2025 9:11 PM EST [facility] Psych Initial Eval Chief Concern & History Of Present Illness Braeden Palmer is a 84 y.o. male presenting with his sons due to SI. PMHx CHF, CKD, HTN, Type II DM,CAD, Prostate Cancer, Hyperlipidemia, and A-Fib. Patient reported having SI that has worsened over the past month. Patient endorsed a plan of using a firearms stating If I had a gun, I would've used it. Guns were removed from the household by hissons approx 1mo ago. Patient reported one of his main stressors was all my health problems. Patient denied CP, worsening SOB, significant weight gain, fever, chills, confusion, and leg swelling. He added that he recently having an upper GI workup completed due to melena. He was given instructions to return to the ED tomorrow if melena persisted. Patient stated that he has had improvement. Denies HI and AVH. We were given permission to contact his sons for collateral. Collateral stated that patient's health has declined within the past 1-1.5 yrs. That he has had many stressors contributing to his presentation. Patient's brother passed approx 1-2mo ago. His first committed suicide approx 33yrs ago, and his second passed in June 2023. Not long after her passing, the patient was then diagnosed with prostate cancer, and after that, his health started to decline. The patient is supposed to see his guest relations representative in regards to his CHF and scheduling to get a pacemaker this upcoming . Per collateral, the patient today made statements stating that he has been praying to god to , and why can't I go. Collateral stated that the patient requested that they leave him alone in theirtruck. Patient informed collateral they knew of his firearm under his the truck seat. Collateral stated that the patient then began to beg for the weapon for over 20mins. After their interaction, thepatient left and went to different stores/ people in town to either try to purchase or borrow a firearm. Patient's sons confirmed these events with three different individuals. Collateral stated that he was voicing SI, but never acted with intent till today. [facility]. Patient currently lives with his two sons. Past Medical and Surgical History not significant other than Past Medical History[1] . Allergies Patient has no known allergies. Medications Current Medications[2] Review of Systems Constitutional: Negative for chills and fever. HENT: Negative for ear pain and sore throat. Eyes: Negative for pain and visual disturbance. Respiratory: Negative for cough and shortness of breath. Cardiovascular: Negative for chest pain and palpitations. Gastrointestinal: Negative for abdominal pain and vomiting. Genitourinary: Negative for dysuria and hematuria. Musculoskeletal: Negative for arthralgias and back pain. Skin: Negative for color change and rash. Neurological: Negative for seizures and syncope. All other systems reviewed and are negative. Psych Review of Symptoms: Depressive Symptoms: Depressed mood, decreased interest, hypersomnia, guilt and suicidal ideation. Eating / Feeding Concerns: Patient denied any symptoms. Manic Symptoms: Patient denied any symptoms. Psychotic Symptoms: Patient denied any symptoms. Pertinent Physical Exam findings: Physical Exam Vitals and nursing note reviewed. Constitutional: General: He is not in acute distress. Appearance: He is well-developed. HENT: Head: Normocephalic and atraumatic. Eyes: Conjunctiva/sclera: Conjunctivae normal. Cardiovascular: Rate and Rhythm: Normal rate and regular rhythm. Heart sounds: No murmur heard. Pulmonary: Effort: Pulmonary effort is normal. No respiratory distress. Breath sounds: Normal breath sounds. Abdominal: Palpations: Abdomen is soft. Tenderness: There is no abdominal tenderness. Musculoskeletal: General: No swelling. Cervical back: Neck supple. Skin: General: Skin is warm and dry. Capillary Refill: Capillary refill takes less than 2 seconds. Neurological: Mental Status: He is alert. First Recorded Vitals ED Triage Vitals [01/11/252114] Temp Heart Rate Resp BP 36.7 ??C (98 ??F) 73 -- 126/67 SpO2 Temp src Heart Rate Source Patient Position 92 % -- -- -- BP Location FiO2 (%) -- -- Labs No results found for this or any previous visit (from the past 24 hours). PSYCH Hx: Diagnoses: Depression Trauma hx: Yes Substance Use: denied MENTAL STATUS EXAM: Mental Status Evaluation: Appearance: age appropriate and casually dressed Behavior: No abnormal movements; requires a cane to assist in ambulation Speech: normal pitch and normal volume Mood: Not too good. Affect: mood-congruent Thought Process: Logical Thought Content: Delusions: No Hallucinations: No Homicidal: No Obsessions: No Suicidal: Yes Plan/Implementation related to SI: Plan to use a gun Sensorium: person, place, time/date, and situation Cognition: grossly intact Insight: limited Judgment: limited Problem based Plan and Disposition: Depressive Disorder -Admit and Observe -Insulin Orders in due to Type II DM -Continue at home medications. No medication adjustment at this time. -Suicide precautions ordered -Consult for collateral/ safety planning #Type 2 DM -Insulin Order set -Continue Humulin. 35 in am and 20 HS PRN #CAD, AFIB -Continue at home medications including Eliquis and Plavix #Neuropathy -Continue Gabapentin. Recommend revaluation within 6-8 hours. [1] Past Medical History: Diagnosis Date Arthritis Coronary artery disease Diabetes mellitus (CMS/HCC) GERD (gastroesophageal reflux disease) Gout Hyperlipidemia Hypertension [2] No current facility-administered medications for this encounter. Current Outpatient Medications Medication Sig Dispense Refill allopurinol (Zyloprim) 100 MG tablet Take 1 tablet (100 mg) by mouth 1 (one) time each day. amLODIPine (Norvasc) 5 MG tablet Take 1 tablet (5 mg) by mouth 1 (one) time each day. aspirin 81 MG EC tablet Take 1 tablet (81 mg) by mouth every night. baclofen (Lioresal) 10 MG tablet Take by mouth 3 (three) times a day if needed for muscle spasms. busPIRone (Buspar) 10 MG tablet (Patient not taking: Reported on 04/11/2024) calcitriol (Rocaltrol) 0.25 MCG capsule Take 1 capsule (0.25 mcg) by mouth 3 (three) times a week. clopidogrel (Plavix) 75 MG tablet Take 1 tablet (75 mg) by mouth every night. coenzyme Q-10 100 MG capsule Take 1 capsule (100 mg) by mouth every night. cyanocobalamin 1000 MCG tablet Take 1 tablet (1,000 mcg) by mouth 1 (one) time each day. famotidine (Pepcid) 20 MG tablet Take 1 tablet (20 mg) by mouth 1 (one) time each day. (Patient nottaking: Reported on 04/11/2024) furosemide (Lasix) 20 MG tablet Take 1 tablet (20 mg) by mouth 1 (one) time each day. gabapentin (Neurontin) 300 MG capsule 1 capsule in the morning and 2 capsules at night glyBURIDE (Diabeta) 5 MG tablet TWO TABLETS Q AM AND EVENING (Patient not taking: Reported on 04/11/2024) hydrALAZINE (Apresoline) 10 MG tablet Take 1 tablet (10 mg) by mouth twice a day. insulin detemir (Levemir FlexPen) 100 UNIT/ML injection pen (Patient not taking: Reported on 04/11/2024) insulin NPH-insulin regular (Novolin 70-30,Humulin 70-30) (70-30) 100 UNIT/ML injection vial Inject0.42 mL (42 Units) under the skin 2 (two) times a day before meals. 42 units AM and 16 units PM lisinopril-hydroCHLOROthiazide 20-25 MG tablet (Patient not taking: Reported on 04/11/2024) polyethylene glycol (Miralax) 17 g packet Take 17 g by mouth 1 (one) time each day. simethicone (Mylicon,Gas-X) 125 MG capsule Take 1 capsule (125 mg) by mouth every night. simvastatin (Zocor) 40 MG tablet Take 1 tablet (40 mg) by mouth every night. tamsulosin (Flomax) 0.4 MG 24 hr capsule Vandana Carrera PA 01/12/25 0005 * ED Triage Notes - Mikey Constantino RN - 01/11/2025 9:11 PM EST Patient is an 84 year old male brought in by his family for SI. Patient endorses SI with a plan to use a gun. Family removed all the guns from the patient's home approx. 1 month ago. Patient denies HI and AVH. Per the family, the patient drove around today to see different people to ask for a gun so he could end his life so they brought him to [facility]. The patient mentioned many life stressors, mostly related to health issues. The patient walks with a cane and he has it with him on the unit. Patient has an extensive health history and takes many medications. Denies drug and alcohol use. Patient is pleasant and cooperative with triage process. documented in this encounter Plan of Treatment Not on file documented as of this encounter Procedures Procedure Name Priority Date/Time Associated Diagnosis Comments POCT GLUCOSE METER UNSOLICITED RESULTS Routine 01/16/2025 11:27 AM EST POCT GLUCOSE METER UNSOLICITED RESULTS Routine 01/16/2025 7:45 AM EST POCT GLUCOSE METER UNSOLICITED RESULTS Routine 01/16/2025 2:53 AM EST POCT GLUCOSE METER UNSOLICITED RESULTS Routine 01/15/2025 8:50 PM EST POCT GLUCOSE METER UNSOLICITED RESULTS Routine 01/15/2025 4:40 PM EST POCT GLUCOSE METER UNSOLICITED RESULTS Routine 01/15/2025 11:35 AM EST POCT GLUCOSE METER UNSOLICITED RESULTS Routine 01/15/2025 7:45 AM EST POCT GLUCOSE METER UNSOLICITED RESULTS Routine 01/14/2025 8:05 PM EST POCT GLUCOSE METER UNSOLICITED RESULTS Routine 01/14/2025 4:50 PM EST POCT GLUCOSE METER UNSOLICITED RESULTS Routine 01/14/2025 11:45 AM EST POCT GLUCOSE METER UNSOLICITED RESULTS Routine 01/14/2025 8:01 AM EST POCT GLUCOSE METER UNSOLICITED RESULTS Routine 01/13/2025 9:54 PM EST POCT GLUCOSE METER UNSOLICITED RESULTS Routine 01/13/2025 4:59 PM EST POCT GLUCOSE METER UNSOLICITED RESULTS Routine 01/13/2025 11:54 AM EST POCT GLUCOSE METER UNSOLICITED RESULTS Routine 01/13/2025 8:02 AM EST HEPATITIS B SURFACE ANTIGEN - EMPATH STAT 01/13/2025 5:13 AM EST HEPATITIS C ANTIBODY WITH REFLEX TO HCV QUANT PCR - EMPATH STAT 01/13/2025 5:13 AM EST TSH REFLEX FT4 Routine 01/13/2025 5:13 AM EST HIV 1/2 ANTIBODY/ANTIGEN SCREEN W/REFLEX TO HIV 1/2 ANTIBODY DIFFERENTIATION STAT 01/13/2025 5:13 AM EST HIV 1/2 ANTIBODY/ANTIGEN SCREEN WITH REFLEX TO HIV I/II DIFFERENTIATION STAT 01/13/2025 5:13 AM EST CBC WITH AUTO DIFFERENTIAL Routine 01/13/2025 5:13 AM EST PHOSPHORUS, PLASMA Routine 01/13/2025 5: 13 AM EST LIPID PROFILE, PLASMA Routine 01/13/2025 5:13 AM EST COMPREHENSIVE METABOLIC PANEL, PLASMA Routine 01/13/2025 5:13 AM EST POCT GLUCOSE METER UNSOLICITED RESULTS Routine 01/13/2025 3:08 AM EST POCT GLUCOSE METER UNSOLICITED RESULTS Routine 01/12/2025 7:49 PM EST ECG ADULT Routine 01/12/2025 6:23 PM EST POCT GLUCOSE METER UNSOLICITED RESULTS Routine 01/12/2025 4:39 PM EST POCT GLUCOSE Routine 01/12/2025 8:17 AM EST documented in this encounter Results * (ABNORMAL) POCT glucose meter (01/16/2025 11:27 AM EST) POCT Glucose 155(H) 74 - 99 mg/dL 01/16/2025 11:28 AM EST [facility] Comment:Accuracy of a glucos e result obtained from a capillary whole blood specimen relies upon adequate, non-compromised capillary blood flow. If the capillary glucose result is not consistent with the patient's clinical signs and symptoms, glucose testing should be repeated with either an arterial or venous sample on the glucometer or sent to the main labortory for testing. Comment 01/16/2025 11:28 AM EST [facility] Sand Mill Operator ID Ness Barber [id number] 11:28 AM EST [facility] Device ID [id number] 01/16/2025 11:28 AM EST [facility] Specimen Type POC Capillary 01/16/2025 11:28 AM EST [facility] Blood Capillary blood specimen / Unknown 01/16/2025 11:27 AM EST 01/16/2025 11:28 AM EST Davina Chonglanahan DO LAB POINT OF CARE TEST DOCKED DEVICE UNSOLICITED RESULTS Final Result Performing Organization Address City/[facility] Co de Phone Number [facility] [address] [place] [address] * (ABNORMAL) POCT glucose meter (01/16/2025 7:45 AM EST) POCT Glucose 161(H) 74 - 99 mg/dL 01/16/2025 7:47 AM EST [facility] Comment:Accuracy of a glucos e result obtained from a capillary whole blood specimen relies upon adequate, non-compromised capillary blood flow. If the capillary glucose result is not consistent with the patient's clinical signs and symptoms, glucose testing should be repeated with either an arterial or venous sample on the glucometer or sent to the main labortory for testing. Comment 01/16/2025 7:47 AM EST [facility] Sand Mill Operator ID Clive Patterson 01/16/2025 7:47 AM EST [facility] Device ID [id number] 01/16/2025 7:47 AM EST [facility] Specimen Type POC Capillary 01/16/2025 7:47 AM EST [facility] Blood Capillary blood specimen / Unknown 01/16/2025 7:45 AM EST 01/16/2025 7:47 AM EST Davina Chonglanahan LAB POINT OF CARE TEST DOCKED DEVICE UNSOLICITED RESULTS Final Result Performing Organization Address City/[facility] Co de Phone Number [facility] [address] [place] [address] * (ABNORMAL) POCT glucose meter (01/16/2025 2:53 AM EST) POCT Glucose 150(H) 74 - 99 mg/dL 01/16/2025 2:54 AM EST [facility] Comment:Accuracy of a glucos e result obtained from a capillary whole blood specimen relies upon adequate, non-compromised capillary blood flow. If the capillary glucose result is not consistent with the patient's clinical signs and symptoms, glucose testing should be repeated with either an arterial or venous sample on the glucometer or sent to the main labortory for testing. Comment 01/16/2025 2:54 AM EST [facility] Sand Mill Operator ID Jackie Gomez 01/16/2025 2:54 AM EST [facility] Device ID [id number] 01/16/2025 2:54 AM EST [facility] Specimen Type POC Capillary 01/16/2025 2:54 AM EST [facility] Blood Capillary blood specimen / Unknown 01/16/2025 2:53 AM EST 01/16/2025 2:54 AM EST Davina Nicholas LAB POINT OF CARE TEST DOCKED DEVICE UNSOLICITED RESULTS Final Result Performing Organization Address [facility] de Phone Number [facility] [address] [place] [address] * (ABNORMAL) POCT glucose meter (01/15/2025 8:50 PM EST) [facility] POCT Glucose 250(H) 74 - 99 mg/dL 01/15/2025 8:52 PM EST [facility] Comment:Accuracy of a glucos e result obtained from a capillary whole blood specimen relies upon adequate, non-compromised capillary blood flow. If the capillary glucose result is not consistent with the patient's clinical signs and symptoms, glucose testing should be repeated with either an arterial or venous sample on the glucometer or sent to the main labortory for testing. Comment 01/15/2025 8:52 PM EST [facility] Sand Mill Operator ID Jackie Gomez 01/15/2025 8:52 PM EST [facility] Device ID [id number] 01/15/2025 8:52 PM EST [facility] Specimen Type POC Capillary 01/15/2025 8:52 PM EST [facility] Blood Capillary blood specimen / Unknown 01/15/2025 8:50 PM EST 01/15/2025 8:52 PM EST Davina Chonglanahan LAB POINT OF CARE TEST DOCKED DEVICE UNSOLICITED RESULTS Final Result Performing Organization Address City/[facility] Co de Phone Number [facility] [address] [place] [address] * (ABNORMAL) POCT glucose meter (01/15/2025 4:40 PM EST) [facility] POCT Glucose 210(H) 74 - 99 mg/dL 01/15/2025 4:41 PM EST [facility] Comment:Accuracy of a glucos e result obtained from a capillary whole blood specimen relies upon adequate, non-compromised capillary blood flow. If the capillary glucose result is not consistent with the patient's clinical signs and symptoms, glucose testing should be repeated with either an arterial or venous sample on the glucometer or sent to the main labortory for testing. Comment 01/15/2025 4:41 PM EST [facility] Sand Mill Operator ID Wanda Veliz 01/15/2025 4:41 PM EST [facility] Device ID [id number] 01/15/2025 4:41 PM EST [facility] Specimen Type POC Capillary 01/15/2025 4:41 PM EST [facility] Blood Capillary blood specimen / Unknown 01/15/2025 4:40 PM EST 01/15/2025 4:41 PM EST Davina Nicholas DO LAB POINT OF CARE TEST DOCKED DEVICE UNSOLICITED RESULTS Final Result Performing Organization Address City/State/[facility] Co de Phone Number [facility] [address] [place] [address] * (ABNORMAL) POCT glucose meter (01/15/2025 11:35 AM EST) [facility] POCT Glucose 209(H) 74 - 99 mg/dL 01/15/2025 11:37 AM EST [facility] Comment:Accuracy of a glucos e result obtained from a capillary whole blood specimen relies upon adequate, non-compromised capillary blood flow. If the capillary glucose result is not consistent with the patient's clinical signs and symptoms, glucose testing should be repeated with either an arterial or venous sample on the glucometer or sent to the main labortory for testing. Comment 01/15/2025 11:37 AM EST [facility] [employer] Mill Operator ID Wanda Veliz 01/15/2025 11:37 AM EST [facility] Device ID [id number] 01/15/2025 11:37 AM EST [facility] Specimen Type POC Capillary 01/15/2025 11:37 AM EST [facility] Blood Capillary blood specimen / Unknown 01/15/2025 11:35 AM EST 01/15/2025 11:37 AM EST Davina Hill Yu DO LAB POINT OF CARE TEST DOCKED DEVICE UNSOLICITED RESULTS Final Result Performing Organization Address [facility] de Phone Number [facility] [address] [place] [address] * (ABNORMAL) POCT glucose meter (01/15/2025 7:45 AM EST) POCT Glucose 179(H) 74 - 99 mg/dL 01/15/2025 7:46 AM EST [facility] Comment:Accuracy of a glucos e result obtained from a capillary whole blood specimen relies upon adequate, non-compromised capillary blood flow. If the capillary glucose result is not consistent with the patient's clinical signs and symptoms, glucose testing should be repeated with either an arterial or venous sample on the glucometer or sent to the main labortory for testing. Comment 01/15/2025 7:46 AM EST [facility] Sand Mill Operator ID Wanda Veliz 01/15/2025 7:46 AM EST [facility] Device ID [id number] 01/15/2025 7:46 AM EST [facility] Specimen Type POC Capillary 01/15/2025 7:46 AM EST [facility] Blood Capillary blood specimen / Unknown 01/15/2025 7:45 AM EST 01/15/2025 7:46 AM EST Davina Nicholas DO LAB POINT OF CARE TEST DOCKED DEVICE UNSOLICITED RESULTS Final Result Performing Organization Address City/[facility] de Phone Number [facility] [address] [place] [address] * (ABNORMAL) POCT glucose meter (01/14/2025 8:05 PM EST) POCT Glucose 219(H) 74 - 99 mg/dL 01/14/2025 8:06 PM EST [facility] Comment:Accuracy of a glucos e result obtained from a capillary whole blood specimen relies upon adequate, non-compromised capillary blood flow. If the capillary glucose result is not consistent with the patient's clinical signs and symptoms, glucose testing should be repeated with either an arterial or venous sample on the glucometer or sent to the main labortory for testing. Comment 01/14/2025 8:06 PM EST [facility] Sand Mill Operator ID Sera Mustafa 01/15/20 8:06 PM EST [facility] Device ID [id number] 01/14/2025 8:06 PM EST [facility] Specimen Type POC Capillary 01/14/2025 8:06 PM EST [facility] Blood Capillary blood specimen / Unknown 01/14/2025 8:05 PM EST 01/14/2025 8:06 PM EST Davina Hill Yu [employer] LAB POINT OF CARE TEST DOCKED DEVICE UNSOLICITED RESULTS Final Result Performing Organization Address [facility] Co de Phone Number [facility] [address] [place] [address] * (ABNORMAL) POCT glucose meter (01/14/2025 4:50 PM EST) [facility] Signature POCT Glucose 252(H) 74 - 99 mg/dL 01/14/2025 4:52 PM EST [facility] Comment:Accuracy of a glucos e result obtained from a capillary whole blood specimen relies upon adequate, non-compromised capillary blood flow. If the capillary glucose result is not consistent with the patient's clinical signs and symptoms, glucose testing should be repeated with either an arterial or venous sample on the glucometer or sent to the main labortory for testing. Comment 01/14/2025 4:52 PM EST [facility] Sand Mill Operator ID Yusef Lazcano 025 4:52 PM EST [facility] Device ID [id number] 01/14/2025 4:52 PM EST [facility] Specimen Type POC Capillary 01/14/2025 4:52 PM EST [facility] Blood Capillary blood specimen / Unknown 01/14/2025 4:50 PM EST 01/14/2025 4:52 PM EST Davina Hill Yu DO LAB POINT OF CARE TEST DOCKED DEVICE UNSOLICITED RESULTS Final Result Performing Organization Address City/[facility] Co de Phone Number [facility] [address] [place] [address] * (ABNORMAL) POCT glucose meter (01/14/2025 11:45 AM EST) [facility] POCT Glucose 181(H) 74 - 99 mg/dL 01/14/2025 11:46 AM EST [facility] Comment:Accuracy of a glucos e result obtained from a capillary whole blood specimen relies upon adequate, non-compromised capillary blood flow. If the capillary glucose result is not consistent with the patient's clinical signs and symptoms, glucose testing should be repeated with either an arterial or venous sample on the glucometer or sent to the main labortory for testing. Comment 01/14/2025 11:46 AM EST [facility] Sand Mill Operator ID Ava Bello 01/14/2025 11:46 AM EST [facility] Device ID [id number] 01/14/2025 11:46 AM EST [facility] Specimen Type POC Capillary 01/14/2025 11:46 AM EST [facility] Blood Capillary blood specimen / Unknown 01/14/2025 11:45 AM EST 01/14/2025 11:46 AM EST Davina Nicholas DO LAB POINT OF CARE TEST DOCKED DEVICE UNSOLICITED RESULTS Final Result Performing Organization Address City/State/[facility] Co de Phone Number [facility] [address] [place] [address] * (ABNORMAL) POCT glucose meter (01/14/2025 8:01 AM EST) [facility] POCT Glucose 146(H) 74 - 99 mg/dL 01/14/2025 8:03 AM EST [facility] Comment:Accuracy of a glucos e result obtained from a capillary whole blood specimen relies upon adequate, non-compromised capillary blood flow. If the capillary glucose result is not consistent with the patient's clinical signs and symptoms, glucose testing should be repeated with either an arterial or venous sample on the glucometer or sent to the main labortory for testing. Comment 01/14/2025 8:03 AM EST [facility] Sand Mill Operator ID Ava Bello 01/14/2025 8:03 AM EST [facility] Device ID [id number] 01/14/2025 8:03 AM EST [facility] Specimen Type POC Capillary 01/14/2025 8:03 AM EST [facility] Blood Capillary blood specimen / Unknown 01/14/2025 8:01 AM EST 01/14/2025 8:03 AM EST Davina Nicholas DO LAB POINT OF CARE TEST DOCKED DEVICE UNSOLICITED RESULTS Final Result Performing Organization Address [facility] de Phone Number [facility] [address] [place] [address] * (ABNORMAL) POCT glucose meter (01/13/2025 9:54 PM EST) POCT Glucose 189(H) 74 - 99 mg/dL 01/13/2025 9:56 PM EST [facility] Comment:Accuracy of a glucos e result obtained from a capillary whole blood specimen relies upon adequate, non-compromised capillary blood flow. If the capillary glucose result is not consistent with the patient's clinical signs and symptoms, glucose testing should be repeated with either an arterial or venous sample on the glucometer or sent to the main labortory for testing. Comment 01/13/2025 9:56 PM EST [facility] Sand Mill Operator ID Akwa, Innocent 9:56 PM EST [facility] Device ID [id number] 01/13/2025 9:56 PM EST [facility] Specimen Type POC Capillary 01/13/2025 9:56 PM EST [facility] Blood Capillary blood specimen / Unknown 01/13/2025 9:54 PM EST 01/13/2025 9:56 PM EST Davina Kang MD LAB POINT OF CARE TE ST DOCKED DEVICE UNSOLICITED RESULTS Final Result Performing Organization Address City/[facility] Co de Phone Number [facility] [address] [place] [address] * (ABNORMAL) POCT glucose meter (01/13/2025 4:59 PM EST) POCT Glucose 237(H) 74 - 99 mg/dL 01/13/2025 5:01 PM EST [facility] Comment:Accuracy of a glucos e result obtained from a capillary whole blood specimen relies upon adequate, non-compromised capillary blood flow. If the capillary glucose result is not consistent with the patient's clinical signs and symptoms, glucose testing should be repeated with either an arterial or venous sample on the glucometer or sent to the main labortory for testing. Comment 01/13/2025 5:01 PM EST [facility] Sand Mill Operator ID Alize Carver 025 5:01 PM EST [facility] Device ID [id number] 01/13/2025 5:01 PM EST [facility] Specimen Type POC Capillary 01/13/2025 5:01 PM EST [facility] Blood Capillary blood specimen / Unknown 01/13/2025 4:59 PM EST 01/13/2025 5:01 PM EST us Davina Kang MD LAB POINT OF CARE TE ST DOCKED DEVICE UNSOLICITED RESULTS Final Result Performing Organization Address City/[facility] Co de Phone Number [facility] [address] [place] [address] * (ABNORMAL) POCT glucose meter (01/13/2025 11:54 AM EST) [facility] POCT Glucose 208(H) 74 - 99 mg/dL 01/13/2025 11:56 AM EST [facility] Comment:Accuracy of a glucos e result obtained from a capillary whole blood specimen relies upon adequate, non-compromised capillary blood flow. If the capillary glucose result is not consistent with the patient's clinical signs and symptoms, glucose testing should be repeated with either an arterial or venous sample on the glucometer or sent to the main labortory for testing. Comment 01/13/2025 11:56 AM EST [facility] Sand Mill Operator ID Patricia Stallworth 11:56 AM EST [facility] Device ID [id number] 01/13/2025 11:56 AM EST [facility] Specimen Type POC Capillary 01/13/2025 11:56 AM EST [facility] Blood Capillary blood specimen / Unknown 01/13/2025 11:54 AM EST 01/13/2025 11:56 AM EST us Davina Kang MD LAB POINT OF CARE TE ST DOCKED DEVICE UNSOLICITED RESULTS Final Result Performing Organization Address City/[facility]/ZIP Co de Phone Number [facility] [address] [place] [address] * (ABNORMAL) POCT glucose meter (01/13/2025 8:02 AM EST) Pathologist [facility] POCT Glucose 152(H) 74 - 99 mg/dL 01/13/2025 8:04 AM EST [facility] Comment:Accuracy of a glucos e result obtained from a capillary whole blood specimen relies upon adequate, non-compromised capillary blood flow. If the capillary glucose result is not consistent with the patient's clinical signs and symptoms, glucose testing should be repeated with either an arterial or venous sample on the glucometer or sent to the main labortory for testing. Comment 01/13/2025 8:04 AM EST [facility] Sand Mill Operator ID Patricia Stallworth 8:04 AM EST [facility] Device ID [id number] 01/13/2025 8:04 AM EST [facility] Specimen Type POC Capillary 01/13/2025 8:04 AM EST [facility] Blood Capillary blood specimen / Unknown 01/13/2025 8:02 AM EST 01/13/2025 8:04 AM EST us Davina Kang MD LAB POINT OF CARE TE ST DOCKED DEVICE UNSOLICITED RESULTS Final Result [facility] [address] [place] [address] * TSH Reflex FT4 (01/13/2025 5:13 AM EST) Pathologist [facility] Thyroid Stimulating Hormone, Plasma 3.08 0.40 - 4.20 uIU/mL 01/13/2025 7:02 AM EST [facility] Blood Venous blood specimen / Unknown Venipuncture / Unknown 01/13/2025 5:13 AM EST 01/13/2025 5:37 AM EST us Davina Kang MD LAB BLOOD ORDERABLES Final Resul t [facility] [address] [place] [address] * (ABNORMAL) Lipid panel (01/13/2025 5:13 AM EST) Pathologist [facility] Cholesterol, Plasma 85 <200 mg/dL 01/13/2025 7:02 AM EST [facility] Comment: Cholesterol Reference Range (age >17 years): Desirable <200 mg/dL Borderline 200 to 239 mg/dL Undesirable >239 mg/dL HDL 35(L) >=40 mg/dL 01/13/2025 7:02 AM EST [facility] Comment: HDL Cholesterol Reference Ranges (age >17 years): Female, acceptable > or = 50 mg/dL Male, acceptable > or = 40 mg/dL Triglycerides, Plasma 92 <150 mg/dL 01/13/2025 7:02 AM EST [facility] Comment: Triglyceride Reference Range (age >17 years): Desirable: <150 mg/dL Borderline high: 150 to 199 mg/dL High: 200 to 499 mg/dL Very high: >499 mg/dL Increased risk of pancreatitis: >1000 mg/dL Cholesterol/HDL Ratio 2 01/13/2025 7:02 AM EST [facility] LDL, Calculated 32 <100 mg/dL 7:02 AM EST [facility] Comment: LDL Cholesterol Reference Range (age >17 years): Optimal: <100 mg/dL Near or above optimal: 100 - 129 mg/dL Borderline high: 130 - 159 mg/dL High: 160 - 189 mg/dL Very high: >189 mg/dL LDL Cholesterol Reference Range (age <18 years): Desirable: <110 mg/dL Borderline: 110 - 129 mg/dL Undesirable: >130 mg/dL LDL Cholesterol is calculated using the Donnelly/NIH equation. Fasting greater than or equal to 12 hours? Unknown 01/13/2025 7:02 AM EST [facility] Blood Venous blood specimen / Unknown Venipuncture / Unknown 01/13/2025 5:13 AM EST 01/13/2025 5:37 AM EST us Davina Kang MD LAB BLOOD ORDERABLES Final Resul t [facility] [address] [place] [address] * Phosphorus (01/13/2025 5:13 AM EST) Phosphorus, Plasma 4.3 2.5 - 4.5 mg/dL 01/13/2025 7:02 AM [facility] Blood Venous blood specimen / Unknown Venipuncture / Unknown 01/13/2025 5:13 AM EST 01/13/2025 5:37 AM EST us Davina Kang MD LAB BLOOD ORDERABLES Final Resul t [facility] [address] [place] [address] * (ABNORMAL) Comprehensive metabolic panel (01/13/2025 5:13 AM EST) Glucose, Plasma 143(H) 74 - 99 mg/dL 01/13/2025 7:02 AM [facility] BUN, Plasma 25(H) 8 - 23 mg/dL 01/13/2025 7:02 AM [facility] Creatinine, Plasma 1.41(H) 0.70 - 1.20 mg/dL 01/13/2025 7:02 AM EST [facility] BUN/Creatinine Ratio 18 01/13/2025 7:02 AM [facility] Sodium, Plasma 139 136 - 145 mmol/L 01/13/2025 7:02 AM [facility] Potassium, Plasma 4.0 3.6 - 4.9 mmol/L 01/13/2025 7:02 AM [facility] Chloride, Plasma 103 97 - 107 mmol/L 01/13/2025 7:02 AM [facility] CO2, Plasma 30(H) 22 - 29 mmol/L 01/13/2025 7:02 AM [facility] Anion Gap 6 6 - 16 mmol/L 01/13/2025 7:02 AM [facility] Total Calcium, Plasma 9.0 8.9 - 10.2 mg/dL 01/13/2025 7:02 AM [facility] Total Protein 6.0(L) 6.3 - 7.9 g/dL 01/13/2025 7:02 AM [facility] Albumin, Plasma 3.7 3.5 - 5.2 g/dL 01/13/2025 7:02 AM [facility] AST, Plasma 13 10 - 50 U/L 01/13/2025 7:02 AM [facility] ALT, Plasma 6(L) 10 - 50 U/L 01/13/2025 7:02 AM EST [facility] Alkaline Phosphatase, Plasma 72 40 - 115 U/L 01/13/2025 7:02 AM EST [facility] Total Bilirubin, Plasma 0.5 0.2 - 1.1 mg/dL 01/13/2025 7:02 AM EST [facility] eGFRcr 48.5 mL/min/1.7 3m*2 01/13/2025 7:02 AM EST [facility] Comment:Reported eGFRcr in m L/min/1.73m2 is based the CKD-EPI 2020 equation that does not use a race coefficient. Blood Venous blood specimen / Unknown Venipuncture / Unknown 01/13/2025 5:13 AM EST 01/13/2025 5:37 AM EST us Davina Kang MD LAB BLOOD ORDERABLES Final Resul t [facility] [address] [place] [id number] * (ABNORMAL) CBC and differential (01/13/2025 5:13 AM EST) WBC Count 6.68 3.70 - 10.30 10*3/uL LAB HEMATOLOGY METHOD 01/13/2025 5:41 AM EST [facility] RBC Count 3.21(L) 4.60 - 6.10 10*6/uL LAB HEMATOLOGY METHOD 01/13/2025 5:41 AM EST [facility] HGB 10.2(L) 13.7 - 17.5 g/dL LAB HEMATOLOGY METHOD 01/13/2025 5:41 AM EST [facility] HCT 31.8(L) 40.0 - 51.0 % LAB HEMATOLOGY METHOD 01/13/2025 5:41 AM EST [facility] Platelet Count 177 155 - 369 10*3/uL LAB HEMATOLOGY METHOD 01/13/2025 5:41 AM EST [facility] MCV 99(H) 79 - 98 fL LAB HEMATOLOGY METHOD 01/13/2025 5:41 AM EST [facility] MCH 31.8 26.0 - 32.0 pg LAB HEMATOLOGY METHOD 01/13/2025 5:41 AM EST [facility] MCHC 32.1 30.7 - 35.5 g/dL LAB HEMATOLOGY METHOD 01/13/2025 5:41 AM EST [facility] RDW 16.0(H) 11.5 - 14.5 % LAB HEMATOLOGY METHOD 01/13/2025 5:41 AM EST [facility] MPV 10.5 8.8 - 12.5 fL LAB HEMATOLOGY METHOD 01/13/2025 5:41 AM EST [facility] nRBC 0.0 <=0.0 per 100 WBCs LAB HEMATOLOGY METHOD 01/13/2025 5:41 AM EST [facility] Differential Type Automated LAB HEMATOLOGY METHOD 01/13/2025 5:41 AM EST [facility] Neutrophils % 56 % LAB HEMATOLOGY METHOD 01/13/2025 5:41 AM EST [facility] Lymphocytes % 33 % LAB HEMATOLOGY METHOD 01/13/2025 5:41 AM EST [facility] Monocytes % 8 % LAB HEMATOLOGY METHOD 01/13/2025 5:41 AM EST [facility] Eosinophils % 1 % LAB HEMATOLOGY METHOD 01/13/2025 5:41 AM EST [facility] Basophils % 1 % LAB HEMATOLOGY METHOD 01/13/2025 5:41 AM EST [facility] Immature Granulocytes % 1 % LAB HEMATOLOGY METHOD 01/13/2025 5:41 AM EST [facility] Neutrophils Absolute 3.81 1.60 - 6.10 10*3/uL LAB HEMATOLOGY METHOD 01/13/2025 5:41 AM EST [facility] Lymphocytes Absolute 2.23 1.20 - 3.90 10*3/uL LAB HEMATOLOGY METHOD 01/13/2025 5:41 AM EST [facility] Monocytes Absolute 0.52 0.30 - 0.90 10*3/uL LAB HEMATOLOGY METHOD 01/13/2025 5:41 AM EST [facility] Eosinophils Absolute 0.04 0.00 - 0.50 10*3/uL LAB HEMATOLOGY METHOD 01/13/2025 5:41 AM EST [facility] Basophils Absolute 0.04 0.00 - 0.10 10*3/uL LAB HEMATOLOGY METHOD 01/13/2025 5:41 AM EST [facility] Immature Granulocytes Absolute 0.04 0.00 - 0.06 10*3/uL LAB HEMATOLOGY METHOD 01/13/2025 5:41 AM EST [facility] Blood Venous blood specimen / Unknown Venipuncture / Unknown 01/13/2025 5:13 AM EST 01/13/2025 5:41 AM EST Narrative [facility] - 01/13/2025 5:41 AM EST Therapeutic decision making should be based on absolute values, rather than percentages. us Davina Kang MD LAB BLOOD ORDERABLES Final Resul t Performing Organization Address City/[facility] Co de Phone Number [facility] [address] [place] [address] * HIV 1 & 2 Antibody/Antigen Screen (01/13/2025 5:13 AM EST) HIV 1 & 2 Antibody/Antigen Screen Non Reactive Non Reactive 01/13/2025 7:06 AM EST [facility] Comment:Screening for HIV 1 & 2 antibodies, and P24 antigen is NONREACTIVE. No confirmatory testing is required. Blood Venous blood specimen / Unknown Venipuncture / Unknown 01/13/2025 5:13 AM EST 01/13/2025 5:37 AM EST [facility]and[facility] BUTCHER LAB BLOOD ORDERABLES Final Re sult Performing Organization Address City/[facility] Co de Phone Number [facility] [address] [place] [address] * Hepatitis C Antibody with Reflex to HCV Quant PCR - [facility] (01/13/2025 5:13 AM EST) Hepatitis C Antibody Negative Negative 01/13/2025 6:59 AM EST [facility] Blood Venous blood specimen / Unknown Venipuncture / Unknown 01/13/2025 5:13 AM EST 01/13/2025 5:37 AM EST Davina Kang MD LAB BLOOD ORDERABLES Final Resul t Performing Organization Address City/[facility] Co de Phone Number [facility] [address] [place] [address] * Hepatitis B Surface Antigen - [facility] (01/13/2025 5:13 AM EST) Hepatitis B Surf Antigen Negative Negative 01/13/2025 9:55 AM EST [facility] Blood Venous blood specimen / Unknown Venipuncture / Unknown 01/13/2025 5:13 AM EST 01/13/2025 5:37 AM EST us Davina Kang MD LAB BLOOD ORDERABLES Final Resul t Performing Organization Address City/[facility]/ZIP Co de Phone Number [facility] [address] [place] [address] * (ABNORMAL) POCT glucose meter (01/13/2025 3:08 AM EST) POCT Glucose 137(H) 74 - 99 mg/dL 01/13/2025 3:10 AM EST [facility] Comment:Accuracy of a glucos e result obtained from a capillary whole blood specimen relies upon adequate, non-compromised capillary blood flow. If the capillary glucose result is not consistent with the patient's clinical signs and symptoms, glucose testing should be repeated with either an arterial or venous sample on the glucometer or sent to the main labortory for testing. Comment 01/13/2025 3:10 AM EST [facility] Sand Mill Operator ID AlshurmMarisol mederosd 025 3:10 AM EST [facility] Device ID [id number] 01/13/2025 3:10 AM EST [facility] Specimen Type POC Capillary 01/13/2025 3:10 AM EST [facility] Blood Capillary blood specimen / Unknown 01/13/2025 3:08 AM EST 01/13/2025 3:10 AM EST us Davina Kang MD LAB POINT OF CARE TE ST DOCKED DEVICE UNSOLICITED RESULTS Final Result [facility] [address] [place] [address] * (ABNORMAL) POCT glucose meter (01/12/2025 7:49 PM EST) POCT Glucose 221(H) 74 - 99 mg/dL 01/12/2025 7:50 PM EST [facility] Comment:Accuracy of a glucos e result obtained from a capillary whole blood specimen relies upon adequate, non-compromised capillary blood flow. If the capillary glucose result is not consistent with the patient's clinical signs and symptoms, glucose testing should be repeated with either an arterial or venous sample on the glucometer or sent to the main labortory for testing. Comment 01/12/2025 7:50 PM EST [facility] Sand Mill Operator ID Santhosh Crane 01/12/2025 7:50 PM EST [facility] Device ID [id number] 01/12/2025 7:50 PM EST [facility] Specimen Type POC Capillary 01/12/2025 7:50 PM EST [facility] Blood Capillary blood specimen / Unknown 01/12/2025 7:49 PM EST 01/12/2025 7:50 PM EST Davina Kang MD LAB POINT OF CARE TE ST DOCKED DEVICE UNSOLICITED RESULTS Final Result [facility] [address] [place] [id number] * ECG Adult (01/12/2025 6:23 PM EST) EKG DIAGNOSIS CLASS Abnormal MUSE ECG Ventricular Rate 66 BPM MUSE ECG QRSD Interval 96 ms MUSE ECG QT Interval 414 ms MUSE ECG QTC Interval 434 ms MUSE ECG R [place] 38 degrees MUSE ECG T Wave [place] 94 degrees MUSE ECG Diagnosis Atrial fibrillation with premature ventricular or aberrantly conducted complexes MUSE ECG Diagnosis Indeterminate axis MUSE ECG Diagnosis Abnormal ECG MUSE ECG Diagnosis MUSE ECG Diagnosis Confirmed by Osmin Valerio ([id number]) on 01/13/2025 5:12:51 PM MUSE ECG 01/12/2025 6:23 PM EST 01/13/2025 5:12 PM EST Davina Kang MD ECG ORDERABLES Final Result [facility] ECG * (ABNORMAL) POCT glucose meter (01/12/2025 4:39 PM EST) POCT Glucose 166(H) 74 - 99 mg/dL 01/12/2025 4:41 PM EST [facility] Comment:Accuracy of a glucos e result obtained from a capillary whole blood specimen relies upon adequate, non-compromised capillary blood flow. If the capillary glucose result is not consistent with the patient's clinical signs and symptoms, glucose testing should be repeated with either an arterial or venous sample on the glucometer or sent to the main labortory for testing. Comment 01/12/2025 4:41 PM EST [facility] Sand Mill Operator ID Leif Vicente 01/12/2025 4:41 PM EST [facility] Device ID [id number] 01/12/2025 4:41 PM EST [facility] Specimen Type POC Capillary 01/12/2025 4:41 PM EST [facility] Blood Capillary blood specimen / Unknown 01/12/2025 4:39 PM EST 01/12/2025 4:41 PM EST us Davina Kang MD LAB POINT OF CARE TE ST DOCKED DEVICE UNSOLICITED RESULTS Final Result Performing Organization Address City/[facility]/ZIP Co de Phone Number [facility] [facility] [address] [id number] * (ABNORMAL) POCT Glucose - Before Meals and Bedtime (01/12/2025 8:17 AM EST) POCT Glucose 152(A) 74 - 99 mg/dL [facility] Test Strip Lot Number [id number] [facility] Test Strip Expiration [id number] [facility] Blood Venous blood specimen / Unknown 01/12/2025 8:17 AM EST us Davina Kang MD POINT OF CARE TEST ENTER/EDIT OR DERABLES Final Result Performing Organization Address City/[facility]/ZIP Co de Phone Number [facility] [address] [place] [address] documented in this encounter Visit Diagnoses Diagnosis Unspecified mood (affective) disorder (CMS/HCC)- Primary Suicidal ideation Depressive disorder Depressive disorder, not elsewhere classified documented in this encounter Admitting Diagnoses Diagnosis Unspecified mood (affective) disorder (CMS/HCC) documented in this encounter Administered Medications Inactive Administered Medications - up to 3 most recent administrations Medication Order MAR Action Action Date Dose Rate Site acetaminophen (Tylenol) tablet 650 mg 650 mg, Oral, Every 6 hours PRN, Starting on Tue01/11/25 at 2217, Until Tue01/16/25 at 1720, Routine, Mild Plus Pain with CPOT DVPRS FLACC PAINAD NPASS NRS Combs-Theodore Faces score of 1 or greater OR NIPS score 2 or greater, Moderate Severe Pain with CPOT score of 3 or greater OR FLACC PAINAD NPASS NRS Combs-Theodore Faces score of 4 or greater OR DVPRS NIPS score of 5 or greater allopurinol (Zyloprim) tablet 100 mg 100 mg, Oral, 2 times daily, First dose on 01/12/25 at 2100, Until Discontinued, Routine Given 01/16/2025 9:30 AM EST 100 mg Given 01/15/2025 9:01 PM EST 100 mg Given 01/15/2025 8:38 AM EST 100 mg aluminum & magnesium hydroxide-simethicone (Mylanta) 200-200-20 MG/5ML oral suspension 10 mL 10 mL, Oral, Every 6 hours PRN, Starting on Tue01/11/25 at 2217, Until Tue01/16/25 at 1720, Routine, indigestion, heartburnIndications:UGI Symptoms apixaban (Eliquis) tablet 2.5 mg 2.5 mg, Oral, 2 times daily, First dose on 01/12/25 at 1300, Until Discontinued, Routine Given 01/16/2025 9:30 AM EST 2.5 mg Given 01/15/2025 9:00 PM EST 2.5 mg Given 01/15/2025 8:40 AM EST 2.5 mg atorvastatin (Lipitor) tablet 20 mg 20 mg, Oral, Nightly, First dose on 01/12/25 at 2100, Until Discontinued Given 01/15/2025 9:00 PM EST 20 mg Given 01/14/2025 8:06 PM EST 20 mg Given 01/13/2025 9:44 PM EST 20 mg benzocaine (Orajel) 10 % mucosal gel 1 Application Mouth/Throat, 4 times daily PRN, Starting on 01/13/25 at 1917, Until Tue01/16/25 at 1720, Routine, mild to moderate oral pain calcium carbonate (Tums) chewable tablet 750 mg 750 mg, Oral, 4 times daily PRN, Starting on 01/13/25 at 1917, Until Tue01/16/25 at 1720, Routine, heartburn carvedilol (Coreg) tablet 3.125 mg 3.125 mg, Oral, 2 times daily, First dose on 01/12/25 at 1300, Until Discontinued, Routine Given 01/16/2025 9:30 AM EST 3.125 mg Given 01/15/2025 9:01 PM EST 3.125 mg Given 01/14/2025 10:13 PM EST 3.125 mg clopidogrel (Plavix) tablet 75 mg 75 mg, Oral, Daily, First dose (after last modification) on 01/12/25 at 1545, Until Discontinued, Routine Given 01/16/2025 9:30 AM EST 75 mg Given 01/15/2025 8:38 AM EST 75 mg Given 01/14/2025 9:16 AM EST 75 mg empagliflozin (Jardiance) tablet 10 mg 10 mg, Oral, Daily, First dose on 01/12/25 at 1600, Until Discontinued, RoutineIndications:CHF Given 01/16/2025 9:30 AM EST 10 mg Given 01/15/2025 8:38 AM EST 10 mg Given 01/14/2025 9:17 AM EST 10 mg escitalopram (Lexapro) tablet 10 mg 10 mg, Oral, Daily, First dose (after last modification) on Tue01/15/25 at 0900, Until Discontinued, Routine Given 01/16/2025 9:30 AM EST 10 mg Given 01/15/2025 8:38 AM EST 10 mg escitalopram (Lexapro) tablet 5 mg 5 mg, Oral, Daily, First dose on 01/12/25 at 0900, Until Discontinued, STAT Given 01/12/2025 9:23 AM EST 5 mg escitalopram (Lexapro) tablet 5 mg 5 mg, Oral, Daily, First dose (after last modification) on 01/13/25 at 0900, Until Discontinued, Routine Given 01/14/2025 9:17 AM EST 5 mg Given 01/13/2025 8:40 AM EST 5 mg escitalopram (Lexapro) tablet 5 mg 5 mg, Oral, Once, 1 dose, On 01/14/25 at 1230, Routine Given 01/14/2025 12:40 PM EST 5 mg gabapentin (Neurontin) capsule 300 mg 300 mg, Oral, Daily, First dose on 01/12/25 at 0900, Until Discontinued, STAT Given 01/12/2025 9:23 AM EST 3 00 mg gabapentin (Neurontin) capsule 300 mg 300 mg, Oral, Daily, First dose (after last modification) on 01/13/25 at 0900, Until Discontinued, Routine Given 01/16/2025 9:31 AM EST 300 mg Given 01/15/2025 8:38 AM EST 300 mg Given 01/14/2025 9:18 AM EST 300 mg gabapentin (Neurontin) capsule 600 mg 600 mg, Oral, Nightly, First dose (after last modification) on 01/12/25 at 2100, Until Discontinued, Routine Given 01/15/2025 9:00 PM EST 600 mg Given 01/14/2025 8:06 PM EST 600 mg Given 01/13/2025 9:44 PM EST 600 mg glucagon (human recombinant) injection 1 mg 1 mg, Intramuscular, Every 15 min PRN, Starting on 01/12/25 at 1454, Until Tue01/16/25 at 1720, Routine, low blood sugar per Hypoglycemia Prevention and Treatment protocol glucose (Glutose) 40 % oral gel 15-30 grams of glucose 15-30 grams of glucose, Sublingual, Every 15 min PRN, Starting on 01/12/25 at 1454, Until Tue01/16/25 at 1720, Routine, low blood sugar, per Hypoglycemia Prevention and Treatment protocol hydrOXYzine pamoate (Vistaril) capsule 25 mg 25 mg, Oral, Every 6 hours PRN, Starting on 01/13/25 at 1917, Until Tue01/16/25 at 1720, Routine, anxiety, itching Given 01/15/2025 9:00 PM EST 25 mg Given 01/14/2025 8:07 PM EST 25 mg Given 01/13/2025 9:44 PM EST 25 mg insulin lispro (Admelog) 100 units/mL injection - Correction - Standard Dose 0-5 Units, Subcutaneous, 3 times daily with meals, First dose on 01/12/25 at 0830, Until Discontinued, Routine Given 01/12/2025 8:24 AM EST 1 Units Right Upper Arm (Norman k) insulin lispro (Admelog) 100 units/mL injection - Correction - Standard Dose 0-5 Units, Subcutaneous, 3 times daily with meals, First dose on 01/12/25 at 1730, Until Discontinued, Routine Given 01/16/2025 12:03 PM EST 1 Units Left Upper Arm (Back ) Given 01/16/2025 8:02 AM EST 1 Units Ri ght Upper Arm (Back) Given 01/15/2025 5:36 PM EST 2 Units Ri ght Upper Arm (Back) insulin lispro (Admelog) injection - Correction - Nighttime Dose 0-3 Units, Subcutaneous, 2 times nightly (2100 & 0300), First dose on 01/12/25 at 2100, Until Discontinued, Routine Given 01/15/2025 9:01 PM EST 1 Units Left Lower Abdomen magnesium hydroxide (Milk of Magnesia) 400 MG/5ML suspension 10 mL 10 mL, Oral, Daily PRN, Starting on Tue01/11/25 at 2217, Until Tue01/16/25 at 1720, Routine, constipationIndications:Const ipation melatonin tablet 3 mg 3 mg, Oral, Nightly PRN, Starting on 01/13/25 at 1917, Until Tue01/16/25 at 1720, Routine, sleep Given 01/15/2025 9:01 PM EST 3 mg Given 01/14/2025 8:06 PM EST 3 mg ocular lubricant (Artificial Tears) ophthalmic solution 1 drop 1 drop, Both Eyes, As needed, Starting on 01/13/25 at 1917, Until Tue01/16/25 at 1720, Routine, irritation, allergies, dry eye pancrelipase (Creon) 88533 unit capsule 1 capsule, Oral, 3 times daily with meals, First dose on 01/12/25 at 1730, Until Discontinued, Routine Given 01/16/2025 12:08 PM EST 1 capsule Given 01/16/2025 8:03 AM EST 1 capsule Given 01/15/2025 4:59 PM EST 1 capsule pantoprazole (Protonix) EC tablet 40 mg 40 mg, Oral, Daily, First dose on 01/12/25 at 0900, Until Discontinued, Routine Given 01/16/2025 9:30 AM EST 40 mg Given 01/15/2025 8:38 AM EST 40 mg Given 01/14/2025 9:17 AM EST 40 mg polyethylene glycol (Miralax) packet 17 g 17 g, Oral, Daily, First dose (after last modification) on 01/13/25 at 0900, Until Discontinued, Routine predniSONE (Deltasone) tablet 5 mg 5 mg, Oral, Daily, First dose on 01/12/25 at 1300, Until Discontinued, Routine Given 01/16/2025 9:30 AM EST 5 mg Given 01/15/2025 8:38 AM EST 5 mg Given 01/14/2025 9:17 AM EST 5 mg sodium chloride ([place]) 0.65 % nasal spray 1 spray 1 spray, Each Nostril, As needed, Starting on 01/13/25 at 1917, Until 01/16/25 at 1720, Routine, congestion, nasal irritation tamsulosin (Flomax) 24 hr capsule 0.4 mg 0.4 mg, Oral, Daily, First dose on 01/12/25 at 0900, Until Discontinued, STAT Given 01/12/2025 9:23 AM EST 0 .4 mg tamsulosin (Flomax) 24 hr capsule 0.4 mg 0.4 mg, Oral, Nightly, First dose (after last modification) on 01/12/25 at 1730, Until Discontinued, Routine Given 01/15/2025 5:36 PM EST 0.4 mg Given 01/14/2025 6:30 PM EST 0.4 mg Given 01/13/2025 5:18 PM EST 0.4 mg documented in this encounter Active and Recently Administered Medications Times are shown in EST. Scheduled Medication Order 01/14/2025 01/15/2025 01/16/2025 allopurinol (Zyloprim) tablet 100 mg 100 mg, Oral, 2 times daily, First dose on 01/12/25 at 2100, Until Discontinued, Routine 09 (Given - Provider: Ava Bello RN)221 (Given - Provider: Sera Mustafa RN) 0838 (Given - Provider: Wanda Veliz RN)210 (Given - Provider: Jackie Gomez RN) 0930 (Given - Provider: Clive Patterson, MARIA D) apixaban (Eliquis) tablet 2.5 mg 2.5 mg, Oral, 2 times daily, First dose on 01/12/25 at 1300, Until Discontinued, Routine 09 (Given - Provider: Ava Bello RN)221 (Given - Provider: Sera Mustafa RN) 0840 (Given - Provider: Wanda Veliz, MARIA D)2099 (Given - Provider: Jackie Gomez RN) 0930 (Given - Provider: Clive PattersonMARIA D) atorvastatin (Lipitor) tablet 20 mg 20 mg, Oral, Nightly, First dose on 01/12/25 at 2100, Until Discontinued 2005 (Given - Provider: Sera Mustafa RN) 2099 (Given - Provider: Jackie Gomez RN) carvedilol (Coreg) tablet 3.125 mg 3.125 mg, Oral, 2 times daily, First dose on 01/12/25 at 1300, Until Discontinued, Routine 09 (Given - Provider: Ava Bello RN)221 (Given - Provider: Sera Mustafa RN) 09 (Not Given - Provider: Wanda Veliz RN - Reason: Hold for condition: must add comment - Comment: HR 59. OK to hold per MD Deuce Worley)2100 (Given - Provider: Jackie Gomez RN) 09 (Given - Provider: Clive Patterson, MARIA D) clopidogrel (Plavix) tablet 75 mg 75 mg, Oral, Daily, First dose (after last modification) on 01/12/25 at 1545, Until Discontinued, Routine 0916 (Given - Provider: Ava Bello RN) 08 (Given - Provider: Wanda Veliz RN) 0930 (Given - Provider: Clive Patterson, MARIA D) empagliflozin (Jardiance) tablet 10 mg 10 mg, Oral, Daily, First dose on 01/12/25 at 1600, Until Discontinued, Routine 09 (Given - Provider: Ava Bello RN) 0838 (Given - Provider: Wanda Veliz RN) 0930 (Given - Provider: Clive Patterson, MARIA D) escitalopram (Lexapro) tablet 10 mg 10 mg, Oral, Daily, First dose (after last modification) on Tue01/15/25 at 0900, Until Discontinued, Routine 0838 (Given - Provider: Wanda Veliz RN) 0930 (Given - Provider: Clive Patterson, MARIA D) escitalopram (Lexapro) tablet 5 mg (CANCELED) 5 mg, Oral, Daily, First dose (after last modification) on Tue01/13/25 at 0900, Until Discontinued, Routine 09 (Given - Provider: Ava Bello RN) escitalopram (Lexapro) tablet 5 mg (COMPLETED) 5 mg, Oral, Once, 1 dose, On 01/14/25 at 1230, Routine 1240 (Given - Provider: Ava Bello RN) gabapentin (Neurontin) capsule 300 mg 300 mg, Oral, Daily, First dose (after last modification) on 01/13/25 at 0900, Until Discontinued, Routine 0918 (Given - Provider: Ava Bello RN) 0838 (Given - Provider: Wanda Veliz RN) 0931 (Given - Provider: Clive Patterson, RN) gabapentin (Neurontin) capsule 600 mg 600 mg, Oral, Nightly, First dose (after last modification) on 01/12/25 at 2100, Until Discontinued, Routine 2005 (Given - Provider: Sera Mustafa RN) 2100 (Given - Provider: Jackie Gomez RN) insulin lispro (Admelog) 100 units/mL injection - Correction - Standard Dose 0-5 Units, Subcutaneous, 3 times daily with meals, First dose on 01/12/25 at 1730, Until Discontinued, Routine 0815 (Not Given - Provider: Ava Bello RN - Reason: Order parameters not met)1240 (Given - Provider: Ava Bello RN)1836 (Not Given - Provider: Ava Bello RN - Reason: Hold for condition: must add comment - Comment: pt ate less than 50% of meal) 0839 (Given - Provider: Wanda Veliz RN)1236 (Given - Provider: Wanda Veliz RN)1736 (Given - Provider: Wanda Veliz RN) 0802 (Given - Provider: Clive Patterson, MARIA D)1203 (Given - Provider: Ness Barber RN) insulin lispro (Admelog) injection - Correction - Nighttime Dose 0-3 Units, Subcutaneous, 2 times nightly (2100 & 0300), First dose on 01/12/25 at 2100, Until Discontinued, Routine 0501 (Not Given - Provider: Ulises Velez RN - Reason: Order parameters not met)2006 (Not Given - Provider: Sera Mustafa RN - Reason: Unreviewed Transfer Orders) 0250 (Not Given - Provider: Thalia Dueñas RN - Reason: Order parameters not met)2101 (Given - Provider: Jackie Gomez, RN) 0254 (Not Given - Provider: Jackie Gomez RN - Reason: Order parameters not met) pancrelipase (Creon) 63483 unit capsule 1 capsule, Oral, 3 times daily with meals, First dose on 01/12/25 at 1730, Until Discontinued, Routine 0810 (Given - Provider: Ava Bello RN)1151 (Given - Provider: Ava Bello RN)1657 (Given - Provider: Ava Bello RN) 0804 (Given - Provider: Wanda Veliz, MARIA D)1208 (Given - Provider: Wanda Veliz RN)1659 (Given - Provider: Wanda Veliz RN) 0803 (Given - Provider: Clive Patterson, RN)1208 (Given - Provider: Ness Barber RN) pantoprazole (Protonix) EC tablet 40 mg 40 mg, Oral, Daily, First dose on 01/12/25 at 0900, Until Discontinued, Routine 0917 (Given - Provider: Ava Bello RN) 0838 (Given - Provider: Wanda Veliz RN) 0930 (Given - Provider: Clive Patterson, MARIA D) polyethylene glycol (Miralax) packet 17 g 17 g, Oral, Daily, First dose (after last modification) on 01/13/25 at 0900, Until Discontinued, Routine 0918 (Not Given - Provider: Ava Bello RN - Reason: Patient/Family/Repres entative Refused) 0839 (Not Given - Provider: Wanda Veliz RN - Reason: Patient/Family/Repres entative Refused) 0935 (Not Given - Provider: Clive Patterson, MARIA D - Reason: Patient/Family/Repre sentative Refused) predniSONE (Deltasone) tablet 5 mg 5 mg, Oral, Daily, First dose on 01/12/25 at 1300, Until Discontinued, Routine 0917 (Given - Provider: Ava Bello RN) 0838 (Given - Provider: Wanda Veliz RN) 0930 (Given - Provider: Clive Patterson RN) tamsulosin (Flomax) 24 hr capsule 0.4 mg 0.4 mg, Oral, Nightly, First dose (after last modification) on 01/12/25 at 1730, Until Discontinued, Routine 1830 (Given - Provider: Ava Bello, RN) 1736 (Given - Provider: Wanda Veliz, MARIA D) PRN Medication Order 01/14/2025 01/15/2025 01/16/2025 acetaminophen (Tylenol) tablet 650 mg 650 mg, Oral, Every 6 hours PRN, Starting on Tue01/11/25 at 2217, Until Tue01/16/25 at 1720, Routine, Mild Plus Pain with CPOT DVPRS FLACC PAINAD NPASS NRS Combs-Theodore Faces score of 1 or greater OR NIPS score 2 or greater, Moderate Severe Pain with CPOT score of 3 or greater OR FLACC PAINAD NPASS NRS Combs-Theodore Faces score of 4 or greater OR DVPRS NIPS score of 5 or greater aluminum & magnesium hydroxide-simethicone (Mylanta) 200-200-20 MG/5ML oral suspension 10 mL 10 mL, Oral, Every 6 hours PRN, Starting on Tue01/11/25 at 2217, Until Tue01/16/25 at 1720, Routine, indigestion, heartburn benzocaine (Orajel) 10 % mucosal gel 1 Application Mouth/Throat, 4 times daily PRN, Starting on 01/13/25 at 1917, Until Tue01/16/25 at 1720, Routine, mild to moderate oral pain calcium carbonate (Tums) chewable tablet 750 mg 750 mg, Oral, 4 times daily PRN, Starting on 01/13/25 at 1917, Until Tue01/16/25 at 1720, Routine, heartburn glucagon (human recombinant) injection 1 mg(Linked Group 1) 1 mg, Intramuscular, Every 15 min PRN, Starting on 01/12/25 at 1454, Until Tue01/16/25 at 1720, Routine, low blood sugar per Hypoglycemia Prevention and Treatment protocol glucose (Glutose) 40 % oral gel 15-30 grams of glucose(Linked Group 1) 15-30 grams of glucose, Sublingual, Every 15 min PRN, Starting on 01/12/25 at 1454, Until Tue01/16/25 at 1720, Routine, low blood sugar, per Hypoglycemia Prevention and Treatment protocol hydrOXYzine pamoate (Vistaril) capsule 25 mg 25 mg, Oral, Every 6 hours PRN, Starting on 01/13/25 at 1917, Until Tue01/16/25 at 1720, Routine, anxiety, itching 2006 (Given - Provider: Sera Mustafa RN) 2099 (Given - Provider: Jackie Gomez, RN) magnesium hydroxide (Milk of Magnesia) 400 MG/5ML suspension 10 mL 10 mL, Oral, Daily PRN, Starting on Tue01/11/25 at 2217, Until Tue01/16/25 at 1720, Routine, constipation melatonin tablet 3 mg 3 mg, Oral, Nightly PRN, Starting on 01/13/25 at 1917, Until Tue01/16/25 at 1720, Routine, sleep 2005 (Given - Provider: Sera Mustafa RN) 2100 (Given - Provider: Jackie Gomez, MARIA D) ocular lubricant (Artificial Tears) ophthalmic solution 1 drop 1 drop, Both Eyes, As needed, Starting on 01/13/25 at 1917, Until Tue01/16/25 at 1720, Routine, irritation, allergies, dry eye sodium chloride ([place]) 0.65 % nasal spray 1 spray 1 spray, Each Nostril, As needed, Starting on 01/13/25 at 1917, Until Tue01/16/25 at 1720, Routine, congestion, nasal irritation Linked Groups Order Group 1: glucose (Glutose) 40 % oral gel 15-30 grams of glucoseJump to med 15-30 grams of glucose, Sublingual, Every 15 min PRN, Starting on 01/12/25 at 1454, Until Tue01/16/25 at 1720, Routine, low blood sugar, per Hypoglycemia Prevention and Treatment protocol Or dextrose 10 % (D10W) bolus 125 mL (CANCELED) 125 mL, Intravenous, Every 15 min PRN, Starting on 01/12/25 at 1454, Until 01/14/25 at 1052, Administer over 15 Minutes, Routine, low blood sugar BG 51-89 mg/dL Or dextrose 10 % (D10W) bolus 250 mL (CANCELED) 250 mL, Intravenous, Every 15 min PRN, Starting on 01/12/25 at 1454, Until 01/14/25 at 1052, Administer over 15 Minutes, Routine, PRN low blood sugar BG =/<50 mg/dL Or glucagon (human recombinant) injection 1 mgJump to med 1 mg, Intramuscular, Every 15 min PRN, Starting on 01/12/25 at 1454, Until 01/16/25 at 1720, Routine, low blood sugar per Hypoglycemia Prevention and Treatment protocol documented in this encounter Additional Health Concerns Assessment Noted Time PHQ-9 Depression Total Score: 12 025 9:45 PM EST A fall risk assessment has been complete d for the patient 04/11/2024 10:16 AM EST A Body Mass Index follow-up plan has been documented for the patient 01/16/2025 10:49 AM EST documented as of this encounter Care Teams Professional System Administrator Relationship Specialty Start Date End Date Christopher Yadav MD [address] [place] [address] [address] [place] [id number] PCP - General 07/11/20 documented as of this encounter
--- OUTSIDE RECORDS SUMMARY | 2025-01-11 22:31 | XMS_ITS | Encounter Summary ---
Author Organization Healthcare Address [address] [place] [address] Care Team Providers Care Back Padder Name Role Phone Christopher Yadav MD Primary Care Provider [phone] Reason for Visit * Reason Comments Suicidal * Auth/Cert (Routine) Specialty Diagnoses / Procedures Referred By Contac t Referred To Contact Diagnoses Suicidal ideation Depressive disorder Unspecified mood (affective) disorder (CMS/[facility]) Davina Kang MD [address] [place] [address] Phone: tel: fax: [facility] [address] [place] [address] Phone: tel: Referral ID Status Reason Start Date Expiration Date Visits Re quested Visits Authorized [id number] 1 1 Encounter Details Date Type Department Care Team (Latest Contact Info) Description 01/11/2025 10:31 PM EST - 01/16/2025 1:40 PM [facility] Hospital Encounter [facility] [address] [place] [address] Davina Kang MD [address] [place] [address] Davina Nicholas DO [address] [place] [address] Depressive disorder (Primary Dx); Suicidal [...] How often do you attend chur or church services? Never 01/12/2025 Do you belong to any clubs o r organizations such as religious groups, unions, fraternal or athletic groups, or [...] more drinks on one occasion? Never 01/12/2025 [facility] - Occupational Stress Questionnaire [...] were you homeless or living in a long term (including now)? No 01/12/2025 [facility] Utilities Answer Date Recorded In the [...] half the days 01/11/2025 9:45 PM Mikey Krmaer RN Patient Health Questionnaire-9 Score 12 01/11/2025 9:45 PM Mikey Kramer RN * Question Answer Date of Assessment Author 6. Suicidal Behavior (Lifetime) No 9:53 PM Mikey Krmaer RN documented as of this encounter Mental [...] times a day before meals. 04/20/2016 pancrelipase, Auc-Wfsi-Rrns, (Creon) [id number] units capsule delayed-release particles capsuleIndications: Pancreatic Insufficiency [...] discharged from unit at 1340 accompanied by [facility] staff - ambulatory to [facility] A to meet son. Patient denies [...] Pt understands that they can return to [facility] at any time for further psychiatric [...] of feelings encouraged Goal: Develops/Participates in Therapeutic [place] to Support Successful Transition Outcome: Met Flowsheets (Taken 01/16/20251512) Develops/Participates in Therapeutic [place] to Support Successful Transition: achieves outcome Intervention: Foster Therapeutic [place] Flowsheets (Taken 01/16/20251512) Trust Relationship/Rapport: care explained [...] reinforced Enhanced Safety Measures: monitored by video product safety administrator at bedside education provided Self-Harm Prevention: environmental [...] End Time: 1200 Facilitators: Lenora Vick Department: [facility] Inpatient Psychiatry Number of Participants: 5 Group Focus: coping skills and leisure skills Treatment Modality: Leisure Development Interventions utilized were leisure development Purpose: enhance coping skills Name: Braeden Palmer Date of : 1940 MR: [id number] Refused Patients Problems: Patient Active Problem List Diagnosis Obesity (BMI 35.0-39.9 without comorbidity) Unspecified mood (affective) disorder (CMS/HCC) * Discharge Summary - Gabi Turcios MBBS - 01/16/2025 11:15 AM EST Images from the original note were not included. [facility] Discharge Summary Admit Date/Time: 01/11/2025 10:31 PM Admitting Attending: Davina Kang Discharge Date: 01/16/25 Length of Stay: 4 Days Discharge Attending Physician: Davina Nicholas DO PCP name and Address: Christopher Yadav MD [address] / [place] [address] Referring provider name and address: No referring provider defined for this encounter. Chief Concern and Brief History of Present Illness Patient is a 84 y.o. male with a reported history of CHF, CKD, HTN, Type II DM, CAD, Prostate Cancer, Hyperlipidemia, and A-Fib who presented to [facility] with active suicidal ideation and multiple attempts to gain lethal means. [facility] of SI. Per [facility] Documentation: Patient reported having SI [...] The patient is supposed to see his asset protection officer in regards to his CHF and scheduling to get a pacemaker this upcoming . For further details on history of present illness, please see H&P Hospital Course and Condition on Discharge Prior to [facility] admission, patient was initially evaluated by [facility] physician/CARL who determined further inpatient psychiatric management [...] reports that he used to go to religious twice a week with his , but [...] no reported psychiatric history who presented to [facility] via private vehicle driven by other from home on 01/11/25 with concerns of active suicidal ideation with attempts to obtain lethal means. They were subsequently admitted to [facility] 01/12/25 on 72 hour hold for [...] stressors. Discharge Diagnosis Unspecified mood (affective) disorder ([facility]) Diagnoses: PSYCHIATRIC MANAGEMENT 1.) Unspecified mood disorder [...] Active Hospital Problems *Unspecified mood (affective) disorder ([facility]) Medications at Discharge Medication List .. allopurinol [...] Take 1 tablet by mouth daily. pancrelipase (Viy-Qqxe-Teoy) 54936-626991 units capsule delayed-release particles capsule Commonly known [...] Your Medications These medications were sent to [facility] - [address] [address] [address] escitalopram 10 MG tablet Follow-Up / Post-Discharge [...] mood-altering substances except those prescribed by a non licensed operator. His primary supports should monitor him for evidence of substance use and should alert his outpatient provider if use is suspected or confirmed. 6.) A safety plan was given at the time of discharge which included instructions to return to the nearest ER if patient becomes suicidal, homicidal, manic, psychotic, or develops any other urgent/emergent symptoms, or to call the 1-747-TGTMWW line. 7.) He voiced an understanding of [...] from the original note were not included. [id number] Escitalopram IMPORTANT WARNING: Medications such as escitalopram [...] doctor or pharmacist will give you the slot service specialist's patient information sheet (Medication Guide) when you begin treatment with escitalopram. Read the information carefully and ask your doctor or pharmacist if you have any questions. You also can obtain the Medication Guide from the FDA website: https://www.fda.gov/Drugs/DrugSafety/whk594615.htm. Talk to your doctor about the risks [...] be awakened, immediately call emergency services at 778. Symptoms of overdose may include: ? fast [...] of all of the prescription and nonprescription (wbig-ipb-tuwjthq) medicines, vitamins, minerals, and dietary supplements you [...] or pharmacist about specific clinical use. The [place] [employer] represents that the information provided hereunder was formulated with a reasonable standard of care, and in conformity with professional standards in the field. The [place] [employer] makes no representations or warranties, express or implied, including, but not limited to, any implied warranty of merchantability and/or fitness for a particular purpose, with respect to such information and specifically disclaims all such warranties. Users are advised that decisions regarding drug therapy are complex medical decisions requiring the independent, informed decision of an appropriate health medicare specialist, and the information is provided for informational purposes only. The entire monograph for a drug should be reviewed for a thorough understanding of the drug's actions, uses and side effects. The [place] [employer] does not endorse or recommend the use of any drug.The information is not a substitute for medical care. AHFS?? Patient Medication Information?. ?? Copyright, 2023. The [place] [employer]??, [address], [address], [place], [place]. All Rights Reserved. Duplication for commercial use must be authorized by [facility]. Selected Revisions: December 12, 2024. AHFS?? Patient Medication Information?. ?? Copyright, 2024 * Discharge Instr - Appointments - Sherry Bunch - 01/16/2025 9:48 AM EST Patient's family will take him to his cardiology appointment tomorrow morning. They are also in theprocess of getting him into [facility]. PCP - Dr. Christopher Yadav on TuesdayJanuary 22 at 10:15am # [phone] FAX# [phone] * Nursing Note - Olga Jimenez RN [...] of care. Patient will continue with 1:1 plant safety leader do to beingin a med bed. Will [...] encouraged self-responsibility promoted Goal: Develops/Participates in Therapeutic [place] to Support Successful Transition Outcome: Ongoing, Progressing Flowsheets (Taken 01/15/20252015) Develops/Participates in Therapeutic [place] to Support Successful Transition: making progress toward outcome Intervention: Foster Therapeutic [place] Flowsheets (Taken 01/15/20252015) Trust Relationship/Rapport: care explained [...] reinforced Enhanced Safety Measures: monitored by video product safety administrator at bedside Self-Harm Prevention: environmental self-harm risks [...] Time: 0410 Facilitators: Kely Zarco RD Department: [facility] Inpatient Psychiatry Name: Braeden Palmer Date of : 1940 MR: [id number] Attendance: Excused Level of Participation: Quality of Participation: Plan: Pt with visitors at time of group, will be invited to future nutrition groups. Patients Problems: Patient Active Problem List Diagnosis Obesity (BMI 35.0-39.9 without comorbidity) Unspecified mood (affective) disorder (CMS/HCC) * Progress Notes - Sherry Bunch - 01/15/2025 3:47 PM EST Business Dean Follow-UP Note Braeden Palmer 1940 [id number] Family Meeting Note: Met with patient, his son Kofi and his granddaughter Morena. They discussed the possibility of getting him into [facility] tomorrow (01-16-25). They said the facility [...] of feelings encouraged Goal: Develops/Participates in Therapeutic [place] to Support Successful Transition Outcome: Ongoing, Progressing Flowsheets (Taken 01/15/2025 1431) Develops/Participates in Therapeutic [place] to Support Successful Transition: making progress toward outcome Intervention: Foster Therapeutic [place] Flowsheets (Taken 01/15/2025 143) Trust Relationship/Rapport: care explained choices provided emotional support provided empathic listening provided questions encouraged Intervention: Mutually Develop Transition Plan Flowsheets (Taken 01/15/2025 143) Concerns to be Addressed: mental health Problem: Suicide Risk Goal: Absence of Self-Harm Outcome: Ongoing, Progressing Intervention: Assess Risk to Self and Maintain Safety Flowsheets (Taken 01/15/2025 1431) Behavior Management: boundaries reinforced Enhanced Safety Measures: product safety administrator at bedside previous patient education reinforced Self-Harm [...] End Time: 1400 Facilitators: Lesly Ashley Department: [facility] Integrative Medicine Virtual Dept. Number of Participants: 2 Treatment Modality: Group Music Therapy Interventions Utilized: edgardo analysis, music listening, music-based discussion, playing instruments/drumming, singing, Goals Addressed: Increase coping skills, mood, Name: Braeden Palmer Date of : 1940 MR: [id number] Patient Attendance: No Comments: Pt rested in room. Plan: pt will be encouraged to attend groups, * Group Note - Anne Oneil - 01/15/2025 12:13 PM EST Group Topic: Healing Arts Group Date: 01/15/2025 Start Time: 1100 End Time: 1200 Facilitators: Anne Oneil Department: [facility] Inpatient Psychiatry Number of Participants: 4 Group Focus: art therapy, leisure skills, and social skills Treatment Modality: Art Therapy Interventions utilized were group exercise and leisure development Purpose: enhance coping skills Name: Braeden Palmer Date of : 1940 MR: [id number] Patient did not attend group. Patients Problems: Patient Active Problem List Diagnosis Obesity (BMI 35.0-39.9 without comorbidity) Unspecified mood (affective) disorder (CMS/HCC) * Group Note - Bonny Kaplan - 01/15/2025 10:57 AM EST Group Topic: Goals Group Date: 01/14/2025 Start Time: 1035 End Time: 1125 Facilitators: Bonny Kaplan Department: [facility] Inpatient Psychiatry Number of Participants: 18 Group Focus: Goals Treatment Modality: Discussion Interventions utilized were: N/A Purpose: Goal setting Name: Braeden Palmer Date of : 1940 MR: [id number] Patient did not participate in group, but was offered a goals handout as an alternative to group. Patients Problems: Patient Active Problem List Diagnosis Obesity (BMI 35.0-39.9 without comorbidity) Unspecified mood (affective) disorder (CMS/HCC) * Group Note - Bonny Kaplan - 01/15/2025 10:48 AM EST Group Topic: Goals Group Date: 01/15/2025 Start Time: 1010 End Time: 1040 Facilitators: Bonny Kaplan Department: [facility] Inpatient Psychiatry Number of Participants: 15 Group Focus: Goals Treatment Modality: Discussion Interventions utilized were: N/A Purpose: Goal setting Name: Braeden Palmer Date of : 1940 MR: [id number] Patient did not participate in group, but was offered a goals handout as an alternative to group. Patients Problems: Patient Active Problem List Diagnosis Obesity (BMI 35.0-39.9 without comorbidity) Unspecified mood (affective) disorder (CMS/HCC) * Progress Notes - Gabi Turcios MBBS - 01/15/2025 9:01 AM EST [facility] Daily Progress Note [...] QT Interval 414 QTC Interval 434 R [place] 38 T Wave [place] 94 Diagnosis Atrial fibrillation with premature ventricular [...] reasons for living, exercising self direction, cultural/spiritual church involvement, access to housing, and good interpersonal [...] lethal means. They were subsequently admitted to [facility] 01/12/25 on 72 hour hold for [...] changed? 4 (no change) PLAN: Admission to [facility] for further inpatient psychiatric management Continue [...] 0-3 Units, Subcutaneous, Twice at night pancrelipase (Ssj-Lmki-Mpht), 1 capsule, Oral, TID with meals pantoprazole, [...] relaxation techniques promoted Goal: Develops/Participates in Therapeutic [place] to Support Successful Transition Outcome: Ongoing, Progressing Flowsheets (Taken 01/14/20252113) Develops/Participates in Therapeutic [place] to Support Successful Transition: making progress toward outcome Intervention: Foster Therapeutic [place] Flowsheets (Taken 01/14/20252113) Trust Relationship/Rapport: care explained [...] 01/14/20252113) Enhanced Safety Measures: monitored by video product safety administrator at bedside Intervention: Promote Psychosocial Wellbeing Flowsheets [...] active listening utilized Goal: Develops/Participates in Therapeutic [place] to Support Successful Transition Intervention: Foster Therapeutic [place] Flowsheets (Taken 01/14/20251853) Trust Relationship/Rapport: care explained [...] End Time: 1500 Facilitators: Lenora Vick Department: [facility] Inpatient Psychiatry Number of Participants: 7 Group Focus: coping skills and leisure skills Treatment Modality: Leisure Development Interventions utilized were leisure development Purpose: enhance coping skills Name: Braeden Palmer Date of : 1940 MR: [id number] Refused Patients Problems: Patient Active Problem List Diagnosis Obesity (BMI 35.0-39.9 without comorbidity) Unspecified mood (affective) disorder ([facility]) * Group Note - Lenora Vick - 01/14/2025 1:06 PM EST Group Topic: Leisure Skills Group Date: 01/14/2025 Start Time: 1100 End Time: 1200 Facilitators: Lenora Vick Department: [facility] Inpatient Psychiatry Number of Participants: 9 Group Focus: coping skills and leisure skills Treatment Modality: Leisure Development Interventions utilized were leisure development Purpose: enhance coping skills Name: Braeden Palmer Date of : 1940 MR: [id number] Refused. Patients Problems: Patient Active Problem List Diagnosis Obesity (BMI 35.0-39.9 without comorbidity) Unspecified mood (affective) disorder (CMS/HCC) * Progress Notes - Gabi Turcios MBBS - 01/14/2025 11:57 AM EST [facility] Daily Progress Note [...] Yes, spoke to sons Jarad Palmer at [phone] and Bruce Palmer at [phone]. They were informed of improvement in veins [...] QT Interval 414 QTC Interval 434 R [place] 38 T Wave [place] 94 Diagnosis Atrial fibrillation with premature ventricular [...] reasons for living, exercising self direction, cultural/spiritual church involvement, access to housing, and good interpersonal [...] no reported psychiatric history who presented to [facility] via private vehicle driven by other from home on 01/11/25 with concerns of active suicidal ideation with attempts to obtain lethal means. They were subsequently admitted to [facility] 01/12/25 on 72 hour hold for [...] changed? 4 (no change) PLAN: Admission to [facility] for further inpatient psychiatric management Increase [...] 0-3 Units, Subcutaneous, Twice at night pancrelipase (Hgp-Yakl-Ygrx), 1 capsule, Oral, TID with meals pantoprazole, [...] ocular lubricant, sodium chloride Cosigned by Davina Nicholsa DO at 01/14/2025 1:12 PM EST Associated [...] 1019 Facilitators: Willie Funk; Antoni Ortiz Department: [facility] Inpatient Psychiatry Number of Participants: 8 Group Focus: feeling awareness/expression and reminiscence Treatment Modality: Patient-Centered Therapy Interventions utilized were group exercise and reminiscence Purpose: increase insight Name: Braeden Palmer Date of : 1940 MR: [id number] Level of Participation: moderate Quality of Participation: [...] utilized goal-setting facilitated Goal: Develops/Participates in Therapeutic [place] to Support Successful Transition Outcome: Ongoing, Progressing Flowsheets (Taken 01/14/2025512) Develops/Participates in Therapeutic [place] to Support Successful Transition: making progress toward outcome Intervention: Foster Therapeutic [place] Flowsheets (Taken 01/14/2025512) Trust Relationship/Rapport: care explained [...] kept to his room all through the warehouse worker 2nd shift. Continues to have 1:1 product safety administrator. Pt is AAOx4. He was cooperative with [...] HI and [facility]. [facility] Pt was [...] active listening utilized Goal: Develops/Participates in Therapeutic [place] to Support Successful Transition Outcome: Ongoing, Progressing Flowsheets (Taken 01/13/20251845) Develops/Participates in Therapeutic [place] to Support Successful Transition: making progress toward outcome Intervention: Foster Therapeutic [place] Flowsheets (Taken 01/13/20251845) Trust Relationship/Rapport: care explained [...] End Time: 1055 Facilitators: Bonny Kaplan Department: [facility] Inpatient Psychiatry Number of Participants: 17 Group Focus: Goals Treatment Modality: Discussion Interventions utilized were: N/A Purpose: Goal setting Name: Braeden Palmer Date of : 1940 MR: [id number] Level of Participation: Good Quality of Participation: [...] from the original note were not included. [facility] Unit Daily Progress Note [...] QT Interval 414 QTC Interval 434 R [place] 38 T Wave [place] 94 Diagnosis Atrial fibrillation with premature ventricular [...] reasons for living, exercising self direction, cultural/spiritual church involvement, access to housing, and good interpersonal [...] no reported psychiatric history [facility] by other from home on 01/11/25 with concerns of active suicidal ideation with attempts to obtain lethal means. They were subsequently admitted to [facility] 01/12/25 on 72 hour hold for [...] changed? 4 (no change) PLAN: Admission to [facility] for further inpatient psychiatric management Continue [...] 0-3 Units, Subcutaneous, Twice at night pancrelipase (Flq-Otzk-Dvsy), 1 capsule, Oral, TID with meals pantoprazole, [...] of feelings encouraged Goal: Develops/Participates in Therapeutic [place] to Support Successful Transition Outcome: Ongoing, Progressing Flowsheets (Taken 01/12/20252217) Develops/Participates in Therapeutic [place] to Support Successful Transition: making progress toward outcome Intervention: Foster Therapeutic [place] Flowsheets (Taken 01/12/20252217) Trust Relationship/Rapport: care explained [...] means. 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 They were subsequently admitted to [facility] 01/12/25 on 72 hour hold for [...] changed? 4 (no change) PLAN: Admission to [facility] for further inpatient psychiatric management Continue [...] of feelings encouraged Goal: Develops/Participates in Therapeutic [place] to Support Successful Transition 01/12/2025 135 by Leif Vicente Outcome: Ongoing, Progressing Flowsheets (Taken 01/12/20251356) Develops/Participates in Therapeutic [place] to Support Successful Transition: making progress toward outcome 01/12/20251354 by Leif Vicente Outcome: Ongoing, Progressing Intervention: Foster Therapeutic [place] Flowsheets (Taken 01/12/20251356) Trust Relationship/Rapport: care explained choices provided questions encouraged reassurance provided thoughts/feelings acknowledged Intervention: Mutually Develop Transition Plan Flowsheets (Taken 01/12/20251356) Concerns to be Addressed: medication mental health Readmission Within the Last 30 Days: no previous admission in last 30 days * ED Notes - Margi Morales RN - 01/12/2025 12:13 PM EST Patient was transferred to [facility] at this time via dispatch. He left with his belongings. * ED Notes - Margi Morales RN - 01/12/2025 12:11 PM EST Patient * Progress Notes - Kesha Mcgill APRN - 01/12/2025 11:11 AM EST [id number] Transfer I received sign-out and accepted care of this patient from the departing providers Vandana Carrera [id number] hour. Please see the primary providers' note for complete elements of the history, physical exam, and ED course. Braeden Palmer [id number] Admit Status: Involuntary - 72hr hold signed by [facility] attending. Hold start date/time 01/12/25 0727, hold end date/time 01/17/25 0800 Brief HPI: 84 y.o.male w/ reported history of depression who self-presented via private vehicle to [facility] for Suicidal ideations. Admit to [facility] for further evaluation and/or management of suicidal [...] provided to Roberto Leon, svitlana physician to [facility]. * ED Notes - Margi Morales RN - 01/12/2025 9:31 AM EST Report called to Leif Vicente RN at [facility] including the list of medications he was due this morning that were unavailable at [facility] and will need to be given at [facility]. Provider aware. * ED Provider Notes - [...] The patient is supposed to see his asset protection officer in regards to his CHF and scheduling [...] till today. They then [facility]the patient [facility]. Patient currently lives with [...] - 99 mg/dL 01/16/2025 11:28 AM EST [email or web address] Comment:Accuracy of a glucos e result [...] for testing. Comment 01/16/2025 11:28 AM EST [email or web address] Sap Bi Developer ID Ness Barber 025 11:28 AM EST [email or web address] Device ID [id number] 01/16/2025 11:28 AM EST [email or web address] Specimen Type POC Capillary 01/16/2025 11:28 AM EST [email or web address] Blood Capillary blood specimen / Unknown 01/16/2025 11:27 AM EST 01/16/2025 11:28 AM EST Davina Chonglanahan DO LAB POINT OF CARE TEST DOCKED DEVICE UNSOLICITED RESULTS Final Result Performing Organization Address City/[facility] Co de Phone Number [facility] [address] [place] [address] * (ABNORMAL) POCT glucose meter (01/16/2025 7:45 [...] for testing. Comment 01/16/2025 7:47 AM EST [facility] Sap Bi Developer ID Clive Patterson 01/16/2025 7:47 AM EST [facility] Device ID [id number] 01/16/2025 7:47 AM EST [facility] Specimen Type POC Capillary 01/16/2025 7:47 AM EST [facility] Blood Capillary blood specimen / Unknown 01/16/2025 7:45 AM EST 01/16/2025 7:47 AM EST Davina Chonglanahan LAB POINT OF CARE TEST DOCKED DEVICE UNSOLICITED RESULTS Final Result Performing Organization Address City/[facility] Co de Phone Number [facility] [address] [place] [address] * (ABNORMAL) POCT glucose meter (01/16/2025 2:53 [...] Comment 01/16/2025 2:54 AM EST [facility]ALTHCARE [facility] Sap Bi Developer ID Jackie Gomez 01/16/2025 2:54 AM EST [facility] Device ID [id number] 01/16/2025 2:54 AM EST [facility] Specimen Type POC Capillary 01/16/2025 2:54 AM EST [facility] Blood Capillary blood specimen / Unknown 01/16/2025 2:53 AM EST 01/16/2025 2:54 AM EST Davina Nicholas LAB POINT OF CARE TEST DOCKED DEVICE UNSOLICITED RESULTS Final Result Performing Organization Address [facility] de Phone Number [facility] [address] [place] [address] * (ABNORMAL) POCT glucose meter (01/15/2025 8:50 PM EST) [facility] POCT Glucose 250(H) 74 - 99 mg/dL 01/15/2025 8:52 PM EST [facility] Comment:Accuracy of a glucos e result [...] Comment 01/15/2025 8:52 PM EST [facility]CARE [facility] Sap Bi Developer ID Jackie Gomez 01/15/2025 8:52 PM EST [facility] Device ID [id number] 01/15/2025 8:52 PM EST [facility] Specimen Type POC Capillary 01/15/2025 8:52 PM EST [facility] Blood Capillary blood specimen / Unknown 01/15/2025 8:50 PM EST 01/15/2025 8:52 PM EST Davina Chonglanahan LAB POINT OF CARE TEST DOCKED DEVICE UNSOLICITED RESULTS Final Result Performing Organization Address City/[facility] Co de Phone Number [facility] [address] [place] [address] * (ABNORMAL) POCT glucose meter (01/15/2025 4:40 PM EST) [facility] POCT Glucose 210(H) 74 - 99 mg/dL [...] 01/15/2025 4:41 PM EST [facility] Sap Bi Developer ID Wanda Veliz 01/15/2025 4:41 PM EST [facility] Device ID [id number] 01/15/2025 4:41 PM EST [facility] Specimen Type POC Capillary 01/15/2025 4:41 PM EST [facility] Blood Capillary blood specimen / Unknown 01/15/2025 4:40 PM EST 01/15/2025 4:41 PM EST Davina Nicholas DO LAB POINT OF CARE TEST DOCKED DEVICE UNSOLICITED RESULTS Final Result Performing Organization Address City/State/[facility] Co de Phone Number [facility] [address] [place] [address] * (ABNORMAL) POCT glucose meter (01/15/2025 11:35 AM EST) [facility] POCT Glucose 209(H) 74 - 99 mg/dL [...] 01/15/2025 11:37 AM EST [facility] Sap Bi Developer ID Wanda Veliz 01/15/2025 11:37 AM EST [facility] Device ID [id number] 01/15/2025 11:37 AM EST [facility] Specimen Type POC Capillary 01/15/2025 11:37 AM EST [facility] Blood Capillary blood specimen / Unknown 01/15/2025 11:35 AM EST 01/15/2025 11:37 AM EST Davina Hill Yu DO LAB POINT OF CARE TEST DOCKED DEVICE UNSOLICITED RESULTS Final Result Performing Organization Address [facility] de Phone Number [facility] [address] [place] [address] * (ABNORMAL) POCT glucose meter (01/15/2025 7:45 [...] 01/15/2025 7:46 AM EST [facility] Sap Bi Developer ID Wanda Veliz 01/15/2025 7:46 AM EST [facility] Device ID [id number] 01/15/2025 7:46 AM EST [facility] Specimen Type POC Capillary 01/15/2025 7:46 AM EST [facility] Blood Capillary blood specimen / Unknown 01/15/2025 7:45 AM EST 01/15/2025 7:46 AM EST Davina Nicholas DO LAB POINT OF CARE TEST DOCKED DEVICE UNSOLICITED RESULTS Final Result Performing Organization Address City/[facility] de Phone Number [facility] [address] [place] [address] * (ABNORMAL) POCT glucose meter (01/14/2025 8:05 [...] 01/14/2025 8:06 PM EST [facility] Sap Bi Developer ID Sera Mustafa 01/15/20 8:06 PM EST [facility] Device ID [id number] 01/14/2025 8:06 PM EST [facility] Specimen Type POC Capillary 01/14/2025 8:06 PM EST [facility] Blood Capillary blood specimen / Unknown 01/14/2025 8:05 PM EST 01/14/2025 8:06 PM EST Davina Hill Yu [email or web address] POINT OF CARE TEST DOCKED DEVICE UNSOLICITED RESULTS Final Result Performing Organization Address [facility] Co de Phone Number [facility] [address] [place] [address] * (ABNORMAL) POCT glucose meter (01/14/2025 4:50 PM EST) [facility] Signature POCT Glucose 252(H) 74 - 99 mg/dL 01/14/2025 4:52 PM EST [facility] Comment:Accuracy of a glucos e result [...] Comment 01/14/2025 4:52 PM EST [facility] Sap Bi Developer ID Yusef Lazcano 025 4:52 PM EST [facility] Device ID [id number] 01/14/2025 4:52 PM EST [facility] Specimen Type POC Capillary 01/14/2025 4:52 PM EST [facility] Blood Capillary blood specimen / Unknown 01/14/2025 4:50 PM EST 01/14/2025 4:52 PM EST Davina Hill Yu DO LAB POINT OF CARE TEST DOCKED DEVICE UNSOLICITED RESULTS Final Result Performing Organization Address City/[facility] Co de Phone Number [facility] [address] [place] [address] * (ABNORMAL) POCT glucose meter (01/14/2025 11:45 AM EST) [facility] POCT Glucose 181(H) 74 - 99 mg/dL [...] 01/14/2025 11:46 AM EST [facility] Sap Bi Developer ID Ava Bello 01/14/2025 11:46 AM EST [facility] Device ID [id number] 01/14/2025 11:46 AM EST [facility] Specimen Type POC Capillary 01/14/2025 11:46 AM EST [facility] Blood Capillary blood specimen / Unknown 01/14/2025 11:45 AM EST 01/14/2025 11:46 AM EST Davina Nicholas DO LAB POINT OF CARE TEST DOCKED DEVICE UNSOLICITED RESULTS Final Result Performing Organization Address City/State/[facility] Co de Phone Number [facility] [address] [place] [address] * (ABNORMAL) POCT glucose meter (01/14/2025 8:01 AM EST) [facility] POCT Glucose 146(H) 74 - 99 mg/dL [...] 01/14/2025 8:03 AM EST [facility] Sap Bi Developer ID Ava Bello 01/14/2025 8:03 AM EST [facility] Device ID [id number] 01/14/2025 8:03 AM EST [facility] Specimen Type POC Capillary 01/14/2025 8:03 AM EST [facility] Blood Capillary blood specimen / Unknown 01/14/2025 8:01 AM EST 01/14/2025 8:03 AM EST Davina Nicholas DO LAB POINT OF CARE TEST DOCKED DEVICE UNSOLICITED RESULTS Final Result Performing Organization Address [facility] de Phone Number [facility] [address] [place] [address] * (ABNORMAL) POCT glucose meter (01/13/2025 9:54 [...] for testing. Comment 01/13/2025 9:56 PM EST [facility] Sap Bi Developer ID Akwa, Innocent 9:56 PM EST [facility] Device ID [id number] 01/13/2025 9:56 PM EST [facility] Specimen Type POC Capillary 01/13/2025 9:56 PM EST [facility] Blood Capillary blood specimen / Unknown 01/13/2025 9:54 PM EST 01/13/2025 9:56 PM EST Davina Kang MD LAB POINT OF CARE TE ST DOCKED DEVICE UNSOLICITED RESULTS Final Result Performing Organization Address City/[facility] Co de Phone Number [facility] [address] [place] [address] * (ABNORMAL) POCT glucose meter (01/13/2025 4:59 [...] 01/13/2025 5:01 PM EST [facility] Sap Bi Developer ID Alize Carver 025 5:01 PM EST [facility] Device ID [id number] 01/13/2025 5:01 PM EST [facility] Specimen Type POC Capillary 01/13/2025 5:01 PM EST [facility] Blood Capillary blood specimen / Unknown 01/13/2025 4:59 PM EST 01/13/2025 5:01 PM EST us Davina Kang MD LAB POINT OF CARE TE ST DOCKED DEVICE UNSOLICITED RESULTS Final Result Performing Organization Address City/[facility] Co de Phone Number [facility] [address] [place] [address] * (ABNORMAL) POCT glucose meter (01/13/2025 11:54 AM EST) [facility] POCT Glucose 208(H) 74 - 99 mg/dL [...] 01/13/2025 11:56 AM EST [facility] Sap Bi Developer ID Patricia Stallworth 11:56 AM EST [facility] Device ID [id number] 01/13/2025 11:56 AM EST [facility] Specimen Type POC Capillary 01/13/2025 11:56 AM EST [facility] Blood Capillary blood specimen / Unknown 01/13/2025 11:54 AM EST 01/13/2025 11:56 AM EST us Davina Kang MD LAB POINT OF CARE TE ST DOCKED DEVICE UNSOLICITED RESULTS Final Result Performing Organization Address City/[facility]/ZIP Co de Phone Number [facility] [address] [place] [address] * (ABNORMAL) POCT glucose meter (01/13/2025 8:02 AM EST) Pathologist [facility] POCT Glucose 152(H) 74 - 99 mg/dL [...] Comment 01/13/2025 8:04 AM EST [facility] Sap Bi Developer ID Patricia Stallworth 8:04 AM EST [facility] Device ID [id number] 01/13/2025 8:04 AM EST [facility] Specimen Type POC Capillary 01/13/2025 8:04 AM EST [facility] Blood Capillary blood specimen / Unknown 01/13/2025 8:02 AM EST 01/13/2025 8:04 AM EST us Davina Kang MD LAB POINT OF CARE TE ST DOCKED DEVICE UNSOLICITED RESULTS Final Result [facility] [address] [place] [address] * TSH Reflex FT4 (01/13/2025 5:13 AM EST) Pathologist [facility] Thyroid Stimulating Hormone, Plasma 3.08 0.40 - 4.20 uIU/mL 01/13/2025 7:02 AM EST [facility] Blood Venous blood specimen / Unknown Venipuncture / Unknown 01/13/2025 5:13 AM EST 01/13/2025 5:37 AM EST us Davina Kang MD LAB BLOOD ORDERABLES Final Resul t [facility] [address] [place] [address] * (ABNORMAL) Lipid panel (01/13/2025 5:13 AM EST) Pathologist [facility] Cholesterol, Plasma 85 <200 mg/dL 01/13/2025 7:02 [...] 92 <150 mg/dL 01/13/2025 7:02 AM EST [facility] Comment: Triglyceride Reference Range (age >17 years): Desirable: <150 mg/dL Borderline high: 150 to 199 mg/dL High: 200 to 499 mg/dL Very high: >499 mg/dL Increased risk of pancreatitis: >1000 mg/dL Cholesterol/HDL Ratio 2 01/13/2025 7:02 AM EST [facility] LDL, Calculated 32 <100 mg/dL 7:02 AM EST [facility] Comment: LDL Cholesterol Reference Range (age [...] 12 hours? Unknown 01/13/2025 7:02 AM EST [facility] Blood Venous blood specimen / Unknown Venipuncture / Unknown 01/13/2025 5:13 AM EST 01/13/2025 5:37 AM EST us Davina Kang MD LAB BLOOD ORDERABLES Final Resul t [facility] [address] [place] [address] * Phosphorus (01/13/2025 5:13 AM EST) Phosphorus, Plasma 4.3 2.5 - 4.5 mg/dL 01/13/2025 7:02 AM [facility] Blood Venous blood specimen / Unknown Venipuncture / Unknown 01/13/2025 5:13 AM EST 01/13/2025 5:37 AM EST us Davina Kang MD LAB BLOOD ORDERABLES Final Resul t [facility] [address] [place] [address] * (ABNORMAL) Comprehensive metabolic panel (01/13/2025 5:13 AM EST) Glucose, Plasma 143(H) 74 - 99 mg/dL 01/13/2025 7:02 AM [facility] BUN, Plasma 25(H) 8 - 23 mg/dL 01/13/2025 7:02 AM [facility] Creatinine, Plasma 1.41(H) 0.70 - 1.20 mg/dL 01/13/2025 7:02 AM EST [facility] BUN/Creatinine Ratio 18 01/13/2025 7:02 AM [facility] Sodium, Plasma 139 136 - 145 mmol/L 01/13/2025 7:02 AM [facility] Potassium, Plasma 4.0 3.6 - 4.9 mmol/L 01/13/2025 7:02 AM [facility] Chloride, Plasma 103 97 - 107 mmol/L 01/13/2025 7:02 AM [facility] CO2, Plasma 30(H) 22 - 29 mmol/L 01/13/2025 7:02 AM [facility] Anion Gap 6 6 - 16 mmol/L 01/13/2025 7:02 AM [facility] Total Calcium, Plasma 9.0 8.9 - 10.2 mg/dL 01/13/2025 7:02 AM [facility] Total Protein 6.0(L) 6.3 - 7.9 g/dL 01/13/2025 7:02 AM [facility] Albumin, Plasma 3.7 3.5 - 5.2 g/dL 01/13/2025 7:02 AM [facility] AST, Plasma 13 10 - 50 U/L 01/13/2025 7:02 AM [facility] ALT, Plasma 6(L) 10 - 50 U/L 01/13/2025 7:02 AM EST [facility] Alkaline Phosphatase, Plasma 72 40 - 115 U/L 01/13/2025 7:02 AM EST [facility] Total Bilirubin, Plasma 0.5 0.2 - 1.1 mg/dL 01/13/2025 7:02 AM EST [facility] eGFRcr 48.5 mL/min/1.7 3m*2 01/13/2025 7:02 AM EST [facility] Comment:Reported eGFRcr in m L/min/1.73m2 is based the CKD-EPI 2020 equation that does not use a race coefficient. Blood Venous blood specimen / Unknown Venipuncture / Unknown 01/13/2025 5:13 AM EST 01/13/2025 5:37 AM EST us Davina Kang MD LAB BLOOD ORDERABLES Final Resul t [facility] [address] [place] [address] * (ABNORMAL) CBC and differential (01/13/2025 5:13 AM EST) WBC Count 6.68 3.70 - 10.30 10*3/uL LAB HEMATOLOGY METHOD 01/13/2025 5:41 AM EST [facility] RBC Count 3.21(L) 4.60 - 6.10 10*6/uL LAB HEMATOLOGY METHOD 01/13/2025 5:41 AM EST [facility] HGB 10.2(L) 13.7 - 17.5 g/dL LAB HEMATOLOGY METHOD 01/13/2025 5:41 AM EST [facility] HCT 31.8(L) 40.0 - 51.0 % LAB HEMATOLOGY METHOD 01/13/2025 5:41 AM EST [facility] Platelet Count 177 155 - 369 10*3/uL LAB HEMATOLOGY METHOD 01/13/2025 5:41 AM EST [facility] MCV 99(H) 79 - 98 fL LAB HEMATOLOGY METHOD 01/13/2025 5:41 AM EST [facility] MCH 31.8 26.0 - 32.0 pg LAB HEMATOLOGY METHOD 01/13/2025 5:41 AM EST [facility] MCHC 32.1 30.7 - 35.5 g/dL LAB HEMATOLOGY METHOD 01/13/2025 5:41 AM EST [facility] RDW 16.0(H) 11.5 - 14.5 % LAB HEMATOLOGY METHOD 01/13/2025 5:41 AM EST [facility] MPV 10.5 8.8 - 12.5 fL LAB HEMATOLOGY METHOD 01/13/2025 5:41 AM EST [facility] nRBC 0.0 <=0.0 per 100 WBCs LAB HEMATOLOGY METHOD 01/13/2025 5:41 AM EST [facility] Differential Type Automated LAB HEMATOLOGY METHOD 01/13/2025 5:41 AM EST [facility] Neutrophils % 56 % LAB HEMATOLOGY METHOD 01/13/2025 5:41 AM EST [facility] Lymphocytes % 33 % LAB HEMATOLOGY METHOD 01/13/2025 5:41 AM EST [facility] Monocytes % 8 % LAB HEMATOLOGY METHOD 01/13/2025 5:41 AM EST [facility] Eosinophils % 1 % LAB HEMATOLOGY METHOD 01/13/2025 5:41 AM EST [facility] Basophils % 1 % LAB HEMATOLOGY METHOD 01/13/2025 5:41 AM EST [facility] Immature Granulocytes % 1 % LAB HEMATOLOGY METHOD 01/13/2025 5:41 AM EST [facility] Neutrophils Absolute 3.81 1.60 - 6.10 10*3/uL LAB HEMATOLOGY METHOD 01/13/2025 5:41 AM EST [facility] Lymphocytes Absolute 2.23 1.20 - 3.90 10*3/uL LAB HEMATOLOGY METHOD 01/13/2025 5:41 AM EST [facility] Monocytes Absolute 0.52 0.30 - 0.90 10*3/uL LAB HEMATOLOGY METHOD 01/13/2025 5:41 AM EST [facility] Eosinophils Absolute 0.04 0.00 - 0.50 10*3/uL LAB HEMATOLOGY METHOD 01/13/2025 5:41 AM EST [facility] Basophils Absolute 0.04 0.00 - 0.10 10*3/uL LAB HEMATOLOGY METHOD 01/13/2025 5:41 AM EST [facility] Immature Granulocytes Absolute 0.04 0.00 - 0.06 10*3/uL LAB HEMATOLOGY METHOD 01/13/2025 5:41 AM EST [facility] Blood Venous blood specimen / Unknown Venipuncture / Unknown 01/13/2025 5:13 AM EST 01/13/2025 5:41 AM EST Narrative [facility] - 01/13/2025 5:41 AM EST Therapeutic decision making should be based on absolute values, rather than percentages. us Davina Kang MD LAB BLOOD ORDERABLES Final Resul t Performing Organization Address City/[facility] Co de Phone Number [facility] [address] [place] [address] * HIV 1 & 2 Antibody/Antigen Screen (01/13/2025 5:13 AM EST) HIV 1 & 2 Antibody/Antigen Screen Non Reactive Non Reactive 01/13/2025 7:06 AM EST [facility] Comment:Screening for HIV 1 & 2 antibodies, and P24 antigen is NONREACTIVE. No confirmatory testing is required. Blood Venous blood specimen / Unknown Venipuncture / Unknown 01/13/2025 5:13 AM EST 01/13/2025 5:37 AM EST [facility] BUT[facility] LAB BLOOD ORDERABLES Final Re sult Performing Organization Address City/[facility] Co de Phone Number [facility] [address] [place] [address] * Hepatitis C Antibody with Reflex to HCV Quant PCR - [facility] (01/13/2025 5:13 AM EST) Hepatitis C Antibody Negative Negative 01/13/2025 6:59 AM EST [facility] Blood Venous blood specimen / Unknown Venipuncture / Unknown 01/13/2025 5:13 AM EST 01/13/2025 5:37 AM EST Davina Kang MD LAB BLOOD ORDERABLES Final Resul t Performing Organization Address City/[facility] Co de Phone Number [facility] [address] [place] [address] * Hepatitis B Surface Antigen - [facility] (01/13/2025 5:13 AM EST) Hepatitis B Surf Antigen Negative Negative 01/13/2025 9:55 AM EST [facility] Blood Venous blood specimen / Unknown Venipuncture / Unknown 01/13/2025 5:13 AM EST 01/13/2025 5:37 AM EST us Davina Kang MD LAB BLOOD ORDERABLES Final Resul t Performing Organization Address City/[facility]/ZIP Co de Phone Number [facility] [address] [place] [address] * (ABNORMAL) POCT glucose meter (01/13/2025 3:08 AM EST) POCT Glucose 137(H) 74 - 99 mg/dL 01/13/2025 3:10 AM EST [facility] Comment:Accuracy of a glucos e result [...] for testing. Comment 01/13/2025 3:10 AM EST [facility] Sap Bi Developer ID AlshurmMarisol [email or web address] 025 3:10 AM EST [facility] Device ID [id number] 01/13/2025 3:10 AM EST [facility] Specimen Type POC Capillary 01/13/2025 3:10 AM EST [facility] Blood Capillary blood specimen / Unknown 01/13/2025 3:08 AM EST 01/13/2025 3:10 AM EST us Davina Kang MD LAB POINT OF CARE TE ST DOCKED DEVICE UNSOLICITED RESULTS Final Result [facility] [address] [place] [address] * (ABNORMAL) POCT glucose meter (01/12/2025 7:49 [...] Comment 01/12/2025 7:50 PM EST [facility] Sap Bi Developer ID Santhosh Crane 01/12/2025 7:50 PM EST [facility] Device ID [id number] 01/12/2025 7:50 PM EST [facility] Specimen Type POC Capillary 01/12/2025 7:50 PM EST [facility] Blood Capillary blood specimen / Unknown 01/12/2025 7:49 PM EST 01/12/2025 7:50 PM EST Davina Kang MD LAB POINT OF CARE TE ST DOCKED DEVICE UNSOLICITED RESULTS Final Result [facility] [address] [place] [address] * ECG Adult (01/12/2025 6:23 PM EST) EKG DIAGNOSIS CLASS Abnormal MUSE ECG Ventricular Rate 66 BPM MUSE ECG QRSD Interval 96 ms MUSE ECG QT Interval 414 ms MUSE ECG QTC Interval 434 ms MUSE ECG R [place] 38 degrees MUSE ECG T Wave [place] 94 degrees MUSE ECG Diagnosis Atrial fibrillation [...] 01/12/2025 4:41 PM EST [facility] Sap Bi Developer ID Leif Vicente 01/12/2025 4:41 PM EST [facility] Device ID [id number] 01/12/2025 4:41 PM EST [facility] Specimen Type POC Capillary 01/12/2025 4:41 PM EST [facility] Blood Capillary blood specimen / Unknown 01/12/2025 4:39 PM EST 01/12/2025 4:41 PM EST us Davina Kang MD LAB POINT OF CARE TE ST DOCKED DEVICE UNSOLICITED RESULTS Final Result Performing Organization Address City/[facility]/ZIP Co de Phone Number [facility] [address] [place] [phone] * (ABNORMAL) POCT Glucose - Before Meals and Bedtime (01/12/2025 8:17 AM EST) POCT Glucose 152(A) 74 - 99 mg/dL [facility] Test Strip Lot Number [id number] [facility] Test Strip Expiration [id number] [facility] Blood Venous blood specimen / Unknown 01/12/2025 8:17 AM EST us Davina Kang MD POINT OF CARE TEST ENTER/EDIT OR DERABLES Final Result Performing Organization Address City/[facility]/ZIP Co de Phone Number [facility] [address] [place] [address] documented in this encounter Visit Diagnoses Diagnosis [...] Routine, irritation, allergies, dry eye pancrelipase (Creon) 37125 unit capsule 1 capsule, Oral, 3 times [...] 9:17 AM EST 5 mg sodium chloride ([place]) 0.65 % nasal spray 1 spray 1 [...] Reason: Order parameters not met) pancrelipase (Creon) 20836 unit capsule 1 capsule, Oral, 3 times [...] Routine, irritation, allergies, dry eye sodium chloride ([place]) 0.65 % nasal spray 1 spray 1 [...] documented as of this encounter Care Teams Back Padder Relationship Specialty Start Date End Date Christopher Yadav MD [address] [place] [address] [address] [place] [id number] PCP - General 07/11/20 documented as of this encounter
--- OUTSIDE RECORDS SUMMARY | 2025-02-08 12:27 | XMS_ITS | Encounter Summary ---
Author Organization [facility] ystem Address [address] [place] [address] Care Team Providers Care Gold Stamper Name Role Phone Christopher Yadav MD Primary Care Provider [phone] Encounter Details Date Type Department Care Team (Latest Contact Info) Description 02/08/2025 12:27 PM EST - 02/08/2025 11:59 PM [facility] Hospital Encounter [facility] [address] [place] [address] [address] [place] [address] Discharge Disposition: Home or Self Care Social History Tobacco Use Types Packs/Day Years Used Date Smoking Tobacco: Former Smokeless Tobacco: Never Comments:quit 1980 Alcohol Use Standard Drinks/Week Comments No 0 (1 standard drink = 0.6 oz pur e alcohol) [facility] Utilities Answer Date Recorded In the past 12 months has [employer], gas, oil, or water [employer] threatened to shut off services in your [...] GED or equivalent No 10/30/2024 Preferred Language Malian 10/30/2024 Sex and Gender Information Value Date Recorded Sex Assigned at Not on file Legal Sex Male 1:45 PM EDT Gender Identity Not on file Sexual Orientation Not on file documented as of this encounter Medications at Time of Discharge acetaminophen (TYLENOL) 325 MG tablet Take 2 tablets by mouth Every 4 (Four) Hours As Needed for Mild Pain . 9 allopurinol (ZYLOPRIM) 100 MG tablet Take 1 tablet by mouth 2 (two) times a day. Morning and night apixaban (ELIQUIS) 2.5 MG tablet tabletIndications:At [facility] Fibrillation - requiring full anticoagulation Take 1 tablet by mouth Every 12 (Twelve) Hours. Indications: Atrial Fibrillation 60 tablet 5 calcitriol (ROCALTROL) 0.25 MCG capsule Take 1 capsule by mouth 3 (Three) Times a Week. Tuesday, Tuesday, Tuesday 4 carvedilol (COREG) 3.125 MG tablet Take 1 tablet by mouth 2 (Two) Times a Day With Meals. 60 tablet 5 clopidogrel (PLAVIX) 75 MG tablet Take 1 tablet by mouth Daily. escitalopram (LEXAPRO) 5 MG tablet Take 1 tablet by mouth Daily. 5 ferrous sulfate 324 (65 Fe) MG tablet delayed-release EC tablet Take 1 tablet by mouth Every Other Day. 5 furosemide (LASIX) 40 MG tablet Take 2 tablets by mouth 2 (Two) Times a Day. Take AM dose and then PM dose is as needed based on weight gain >3lbs 4 gabapentin (NEURONTIN) 300 MG capsule Take one capsule by mouth in the morning and two capsules at night glucose blood (Contour Next Test) test strip Use BID; ICD-10 E11.65; Z79.4 200 each 3 3 insulin NPH-insulin regular (humuLIN 70/30,novoLIN 70/30) (70-30) 100 UNIT/ML injection Inject 15 Units under the skin into the appropriate area as directed 2 (Two) Times a Day With Meals. 27 mL 3 5 Jardiance 10 MG tablet tablet Take 1 tablet by mouth Daily. 5 omeprazole (priLOSEC) 20 MG capsule Take 1 capsule by mouth Daily. polyethylene glycol (MIRALAX) pack packet Take 17 g by mouth Daily. predniSONE (DELTASONE) 5 MG tablet Take 1 tablet by mouth Daily. simvastatin (ZOCOR) 40 MG tablet Take 1 tablet by mouth Every Night. 3 tamsulosin (FLOMAX) 0.4 MG capsule 24 hr capsule Take 1 capsule by mouth Daily. vitamin B-12 (CYANOCOBALAMIN) 1000 MCG tablet Take 1 tablet by mouth Daily. documented as of this encounter Consult Notes * Huma Rich RD - 02/08/2025 1:15 PM EST [facility] Nutrition Services Initial 60 Minute Nutrition Visit Date: 02/08/2025 Patient Name: Braeden Palmer : 1940 Referring Provider: Dale Hauser MD Reason for Visit: nutrition counseling for CSID Visit Format: IP Nutrition Assessment Social History: Social History Socioeconomic History Marital status: Tobacco Use Smoking status: Former Smokeless tobacco: Never Tobacco comments: quit 1981 Vaping Use Vaping status: Never Used Substance and Sexual Activity Alcohol use: No Drug use: No Sexual activity: Defer Active Problem List: Patient Active Problem List Diagnosis Acute exacerbation of CHF (congestive heart failure) [I50.9] Acute urinary retention [R33.8] Anemia [D64.9] Leg swelling [M79.89] Chronic kidney disease [N18.9] Type 2 diabetes mellitus with hypoglycemia without coma, with long-term current use of insulin [E11.649, Z79.4] Insulin long-term use [Z79.4] Morbidly obese [E66.01] Weakness [R53.1] CAD (coronary artery disease) [I25.10] Hypertension [I10] Acute renal failure (ARF) [N17.9] Hyperlipidemia [E78.5] Uncontrolled type 2 diabetes mellitus with hyperglycemia [E11.65] Current Medications: Current Outpatient Medications: acetaminophen (TYLENOL) 325 MG tablet, Take 2 tablets by mouth Every 4 (Four) Hours As Needed for Mild Pain ., Disp: , Rfl: allopurinol (ZYLOPRIM) 100 MG tablet, Take 1 tablet by mouth 2 (two) times a day. Morning and night, Disp: , Rfl: apixaban (ELIQUIS) 2.5 MG tablet tablet, Take 1 tablet by mouth Every 12 (Twelve) Hours. Indications: Atrial Fibrillation, Disp: 60 tablet, Rfl: 0 calcitriol (ROCALTROL) 0.25 MCG capsule, Take 1 capsule by mouth 3 (Three) Times a Week. Cole, Tuesday, Tuesday, Disp: , Rfl: carvedilol (COREG) 3.125 MG tablet, Take 1 tablet by mouth 2 (Two) Times a Day With Meals., Disp: 60 tablet, Rfl: 0 clopidogrel (PLAVIX) 75 MG tablet, Take 1 tablet by mouth Daily., Disp: , Rfl: escitalopram (LEXAPRO) 5 MG tablet, Take 1 tablet by mouth Daily., Disp: , Rfl: ferrous sulfate 324 (65 Fe) MG tablet delayed-release EC tablet, Take 1 tablet by mouth Every OtherDay., Disp: , Rfl: [Paused] furosemide (LASIX) 40 MG tablet, Take 2 tablets by mouth 2 (Two) Times a Day. Take AM doseand then PM dose is as needed based on weight gain >3lbs, Disp: , Rfl: gabapentin (NEURONTIN) 300 MG capsule, Take one capsule by mouth in the morning and two capsules atnight, Disp: , Rfl: glucose blood (Contour Next Test) test strip, Use BID; ICD-10 E11.65; Z79.4, Disp: 200 each, Rfl: 3 insulin NPH-insulin regular (humuLIN 70/30,novoLIN 70/30) (70-30) 100 UNIT/ML injection, Inject 15 Units under the skin into the appropriate area as directed 2 (Two) Times a Day With Meals., Disp: 27mL, Rfl: 3 Jardiance 10 MG tablet tablet, Take 1 tablet by mouth Daily., Disp: , Rfl: omeprazole (priLOSEC) 20 MG capsule, Take 1 capsule by mouth Daily., Disp: , Rfl: polyethylene glycol (MIRALAX) pack packet, Take 17 g by mouth Daily., Disp: , Rfl: predniSONE (DELTASONE) 5 MG tablet, Take 1 tablet by mouth Daily., Disp: , Rfl: simvastatin (ZOCOR) 40 MG tablet, Take 1 tablet by mouth Every Night., Disp: , Rfl: tamsulosin (FLOMAX) 0.4 MG capsule 24 hr capsule, Take 1 capsule by mouth Daily., Disp: , Rfl: vitamin B-12 (CYANOCOBALAMIN) 1000 MCG tablet, Take 1 tablet by mouth Daily., Disp: , Rfl: Labs: NA Hunger Vital Sign Food Insecurity Assessment: Within the past 12 months I/we worried whether our food would run out before I/we got money to buy more: Did not discuss Within the past 12 months the food I/we bought just didn't last and I/we didn't have money to get more: Did not discuss Use of food assistance programs (WIC, food stamps, food wagner) Did not discuss Food & Nutrition Related History Food Allergies: none Food Intolerances: did not discuss Food Behavior: does not have a consistent eating routine Nutrition Impact Symptoms: gas, belching, reflux Gastrointestinal conditions that impact intake or food choices: GERD Details at home: N/A Who prepares most meals: pt Who does grocery shopping: did not discuss How many meals are purchased from fast food/sit down restaurants per week: several times a week Difficulty chewin - Normal Difficulty swallowin - Normal Diet requirement related to personal preference or cultural belief: none History of eating disorder/disordered eating habits: None Language/communication details: speaks, serbian Barriers to learning: No barriers identified at this time 24 Hour Recall: Time Food/beverages consumed breakfast Breakfast sandwich lunch Soup, sandwich Anthropometrics Height: Ht Readings from Last 1 Encounters: 12/19/24 182.9 cm (72.01 ) Weight: Wt Readings from Last 3 Encounters: 12/19/24 121 kg (267 lb 12.8 oz) 10/31/24 116 kg (256 lb 3.2 oz) 05/18/24 120 kg (265 lb) BMI: There is no height or weight on file to calculate BMI. Weight Change: did not discuss Physical Activity Physical activity comments: did not discuss Estimated Needs Estimated Energy Needs: 2280 calories per day to maintain current weight. Based off MSJ, AF 1.2 Estimated Protein Needs: 95 grams per day. Based off 0.8g/kg/BW Estimated Fluid Needs: 6 oz minimum per day Discussion / Education Pt is a 84 year old male who was referred for CSID nutrition therapy. Pt was present with son during appt. Pt and son state pt has been having reflux and belching lately. Pt states that he was given Sucraid to take. Pt states that his appetite has decreased lately. Pt states that he eats only breakfast and lunch most days. RD discussed with pt about CSID nutrition therapy. RD discussed with pt about eating 3 main meals aday, adding in more fruit and vegetables and taking the Sucraid at each meal. Follow will be scheduled. Will forward notes to provider. Assessment of patient engagement: Engaged Measurement of understanding: Patient verbalized understanding, Patient able to demonstrate understanding with teach back Resources Provided: Goal (s) Goal 1: TBD Plan of Care PES Statement: Food causing negative symptoms related to belching, gerd and reflux as evidenced by gastrointestinal symptoms. Follow Up Visit Follow Up: TBD Total of 60 minutes spent with patient on nutrition counseling. Education based on Academy of Nutrition and Dietetics guidelines. Patient was provided with RD's contact information. Thank you for this referral. documented in this encounter Plan of Treatment Upcoming Encounters Date Type Department Care Team (Late st Contact Info) Description 03/19/2025 1:15 PM EST Appointment [facility] NUTRIT [facility] [address] [place] [address] 06/19/2025 8:45 AM EDT Office Visit [facility] MEDICAL [facility] ENDOCRINOLOGY [address] [facility] [address] [place] [address] Daniel Vasquez MD [address] [facility] [address] [place] [address] documented as of this encounter Visit Diagnoses Not on filedocumented in this encounter Care Teams Gold Stamper Relationship Specialty Start Date End Date Christopher Yadav MD [address] [facility] [address] [facility] [place] [address] PCP - General Internal Medicine 07/27/23 documented as of this encounter
--- OUTSIDE RECORDS SUMMARY | 2025-02-08 12:27 | XMS_ITS | Encounter Summary ---
Author Organization [facility] ystem Address [address] [place] [address] Care Team Providers Care Guest Service Aide Name Role Phone Christopher Yadav MD Primary Care Provider [phone] Encounter Details Date Type Department Care Team (Latest Contact Info) Description 02/08/2025 12:27 PM EST - 02/08/2025 11:59 PM [facility] Hospital Encounter [facility] [address] [place] [address] [address] [place] [address] Discharge Disposition: Home or Self Care Social History Tobacco Use Types Packs/Day Years Used Date Smoking Tobacco: Former Smokeless Tobacco: Never Comments:quit 1980 Alcohol Use Standard Drinks/Week Comments No 0 (1 standard drink = 0.6 oz pur e alcohol) [facility] Utilities Answer Date Recorded In the past 12 months has [employer], gas, oil, or water [employer] threatened to shut off services in your [...] GED or equivalent No 10/30/2024 Preferred Language Liberian 10/30/2024 Sex and Gender Information Value Date [...] night apixaban (ELIQUIS) 2.5 MG tablet tabletIndications:At [facility] Fibrillation - requiring full anticoagulation [...] Rich RD - 02/08/2025 1:15 PM EST [facility] Nutrition Services Initial 60 Minute Nutrition Visit [...] disorder/disordered eating habits: None Language/communication details: speaks, irish Barriers to learning: No barriers identified at [...] Info) Description 03/19/2025 1:15 PM EST Appointment [facility] NUTRIT [facility] [address] [place] [address] 06/19/2025 8:45 AM EDT Office Visit [facility] MEDICAL [facility] ENDOCRINOLOGY [address] [facility] [address] [place] [address] Daniel Vasquez MD [address] [facility] [address] [place] [address] documented as of this encounter Visit Diagnoses Not on filedocumented in this encounter Care Teams Guest Service Aide Relationship Specialty Start Date End Date Christopher Yadav MD [address] [facility] [address] [place] [address] PCP - General Internal Medicine 07/27/23 documented as of this encounter
[2025-02-18] VITALS (16 sets, daily range): BP systolic 91–153; BP diastolic 47–99; PULSE 60–80; RESP 12–18; TEMP 36.5–36.9; O2SAT 93–98; BMI 32.1
--- NOTE | 2025-02-18 08:27 | ECG_ITS ---
APPROVED REPORT Exam: Resting ECG HR:67 bpm ECG Measurements Heart Rate 67 AXES QRSd 114 QRS -86 QT 410 T 73 QTc 426 Conclusion ATRIAL FIBRILLATION INDETERMINATE AXIS MODERATE INTRAVENTRICULAR CONDUCTION DELAY [110+ ms QRS DURATION] MODERATE ST DEPRESSION [0.05+ mV ST DEPRESSION] ABNORMAL ECG UNCONFIRMED REPORT Electronically signed by : Jamil Byrne MD 02/19/2025 08:28:38
--- NOTE | 2025-02-18 08:39 | HMH.EDGENADL ---
Discharge Plan Disposition Patient Disposition: Home, Self-Care Clinical Impressions Clinical Impression: Orthostasis, Depression, Wound, open, foot Discharge ED Provider: Thompson Lau General Adult HPI General Chief complaint: Weakness Stated complaint: low BP, 88/71 Time Seen by Provider: 02/18/25 08:23 Mode of Arrival: Ambulatory Source of Information: Patient Description of Symptoms (Recalled from ER Triage Doc. by RN): pt arrives with son for evaluation of low blood pressure. On his home BP cuff it was 88/71. Pt states he felt off and like a zombie . Pt states he did not take his carvedilol. Pt states he has a hx of HTN, DM2, a-fib and is on plavix and eliquis History of Present Illness HPI narrative: Patient has history of hypertension, insulin-dependent diabetes, atrial fibrillation on Plavix and Eliquis, acid reflux, orthostatic hypotension, CKD, hyperlipidemia who presents to the emergency department for evaluation of low blood pressure. Blood pressure cuff taken at home over the wrist was reportedly low. No trauma. No chest pain, no abdominal pain, no cough, no dysuria, no vomiting, no diarrhea reported. Patient has been feeling weak overall over the past week. Earlier this year patient had history of suicidal ideation was evaluated by empalberto. He was started on Wellbutrin. He was on the way here today to see the wafer fabrication operator for a wound about his toe that they are following. He is complaining of global weakness but does not have any other acute complaints. No suicidal ideation at this time although when questioning son in private he does state that he told him this morning that he alludes to the fact he should have committed suicide earlier at that time. Patient does not have access to firearms at home. No other acute complaints at this time. Patient does has not taken his carvedilol in the last 5 days due to concerns for his blood pressure. In no uncertain terms it was recommended the patient get a pacemaker by his actuarial manager which he has declined. No other acute complaints at this time. Please note that above description of symptoms, in this electronic medical record under categorization of recalled from ER triage doctor by RN are reflective of an initial nursing assessment, however, is not reflective of my full history and physical exam that was personally taken and clarified. Consequentially, this preceding description of symptoms, which may include the patient's categorized chief complaint in the EMR, do not reflect my personal clinical impression, and the ultimate description of history of present illness and patient stated complaints should be deferred to this section of the note. Unless stated otherwise or congruent with this section of the note, additional signs, symptoms, or incongruence should be interpreted as inaccurate with my clinical impression. Related Data Home Medications ?Medication ?Instructions ?Recorded ?Confirmed mecobalamin (vitamin B12) 1,000 1,000 mcg PO DAILY 09/26/24 02/11/25 mcg chewable tablet (B12 Active) insulin human U-100 NPH-regulr 20 unit SQ HS 10/15/24 02/11/25 70-30 mix 100 unit/mL subcutaneous susp (Novolin 70/30 U-100 Insulin) insulin human U-100 NPH-regulr 35 unit SQ AM 10/15/24 02/11/25 70-30 mix 100 unit/mL subcutaneous susp (Novolin 70/30 U-100 Insulin) polyethylene glycol 3350 17 gram 17 g PO DAILY 11/06/24 02/11/25 oral powder packet escitalopram oxalate 10 mg tablet 10 mg PO DAILY 01/31/25 02/11/25 Previous Rx's ?Medication ?Instructions ?Recorded simvastatin 40 mg tablet 40 mg PO HS #90 tabs 10/25/24 calcitriol 0.25 mcg capsule 0.25 mcg PO MOWEFR #108 caps 11/06/24 carvedilol 3.125 mg tablet 3.125 mg PO BID #180 tabs 11/27/24 tamsulosin 0.4 mg capsule 0.4 mg PO HS #90 caps 11/27/24 clopidogrel 75 mg tablet 75 mg PO DAILY #90 tabs 12/31/24 lrhbae-tlfstsuo-pthdsyg 1 cap PO .With meals #100 caps 01/09/25 (pork)36,000-114,000-180k unit capsule,del rel (Creon) sacrosidase 8,500 unit/mL oral 2 ml PO 6XD #360 mL 01/18/25 solution (Sucraid) allopurinol 100 mg tablet 100 mg PO BID #180 tabs 01/31/25 apixaban 5 mg tablet (Eliquis) 2.5 mg (1/2 x 5 mg) PO BID #90 tabs 01/31/25 cholecalciferol (vitamin D3) 50 50 mcg PO DAILY #90 caps 01/31/25 mcg (2,000 unit) capsule (Vitamin D3) furosemide 40 mg tablet 40 mg PO BIDP PRN Edema #180 tabs 01/31/25 gabapentin 300 mg capsule 300 mg PO TID #270 caps 01/31/25 pantoprazole 40 mg tablet,delayed 40 mg PO DAILY #90 tabs 01/31/25 release mupirocin 2 % topical ointment 1 applic topical BID infection 14 02/11/25 days #22 grams bupropion HCl 100 mg tablet,12 hr 100 mg PO DAILY #30 ea 02/15/25 sustained-release Allergies Allergy/AdvReac Type Severity Reaction Status Date / Time No Known Allergies Allergy Verified 02/11/25 10:47 [facility] Disclaimer: The information contained in this section may have been updated after the patient was seen, as this information can be updated by other users. Medical History Diabetic ulcer of left foot Dyspnea Ingrown toenail of left foot Acute hypoxic respiratory failure Elevated troponin Acute hyponatremia Hypomagnesemia Encounter for laboratory testing for COVID-19 virus Atrial fibrillation Sepsis Diabetic ulcer of left great toe GERD (gastroesophageal reflux disease) Bruise of toe Hypertension Ingrown nail of great toe of left foot Postoperative dehiscence of skin wound Blister of fifth toe, left Encounter for dialysis Tear of retina History of COVID-19 History of cataract Edema Osteomyelitis of toe of left foot Other specified symptoms and signs involving the circulatory and respiratory systems Cellulitis of left foot Renal disease HTN (hypertension), benign HLD (hyperlipidemia) T2DM (type 2 diabetes mellitus) Coronary artery disease Anxiety Pain around toenail Onychomycosis Surgical History Hx of cataract surgery Hx of colonoscopy History of surgery History of coronary artery stent placement Hx of cardiac cath Family History Other Diabetes Heart attack Social History Smoking Status: Never smoker alcohol intake: never substance use type: denies use current occupational status: retired Travel in the last 8 weeks?: None Have you lived/traveled outside US in past 30 days?: No Contact w/someone who lives/traveled outside US past 30 days?: No Exposure to someone with infectious disease in past 14 days?: No Do you have a fever (greater than 100.4 F or 38 C)?: No Have you tested positive for COVID-19?: No Exposed to someone with COVID-19 in past 14 days?: No Do you have a sore throat?: No Do you have a cough?: No Do you have any weakness?: No Do you have any diarrhea?: No Are you experiencing any unusual bleeding?: No Do you have any muscle aches/pain?: No Do you have any abdominal pain?: No Are you experiencing loss of taste or smell?: No Other Medical History Have you received the Flu Vaccine for this season: No Have you received the Pneumonia Vaccine: Yes ROS Obtained: Yes Systems reviewed as appropriate & no additional complaints except as documented Physical Exam General General appearance: alert and in no apparent distress Head Head exam: atraumatic and normocephalic Eye Eye exam: Present PERRL and EOMI ENT ENT exam: Present mucous membranes moist Neck Neck exam: Present normal inspection Chest Chest inspection: Present normal inspection and symmetric chest wall rise Respiratory Respiratory exam: Present normal lung sounds bilaterally; Absent respiratory distress Cardiovascular Cardiovascular exam: Present regular rate and normal rhythm Abdominal Exam Abdominal exam: Present soft; Absent tenderness Extremities Exam Extremities exam: Present normal inspection and other (1+ edema BLE mid donis down. Open wound second toe with black fibrinous discoloration over the tip.) Neurological Exam Neurological exam: Present alert, oriented X3 and CN II-XII intact Psychiatric Psychiatric exam: Present normal affect Skin Skin exam: Present warm and dry Medical Decision Making Medical Records Screening: Per USPSTF and CDC recommendations, given the prevalence of disease in our region, it is our hospital?s policy to screen for HIV and viral Hepatitis for all patients aged 18 and over and those with ongoing risk factors. Carlos Inquiry Pt receiving controlled substance: No Vital Signs: 02/18/25 08:24 02/18/25 08:26 02/18/25 08:30 Temperature 98.3 F Temperature Source Oral Pulse Rate 76 75 Pulse Rate [Orthostatic Lying Right] Pulse Rate [Orthostatic Sitting] Pulse Rate [Orthostatic Standing] Pulse Rate [Right] 75 Respiratory Rate 15 18 Blood Pressure 147/67 H 143/60 H Blood Pressure [Orthostatic Lying Left Arm] Blood Pressure [Orthostatic Sitting] Blood Pressure [Orthostatic Standing Left Arm] Blood Pressure [Right Arm] 143/70 H Blood Pressure Mean [Right Arm] 94 Blood Pressure Source [Right Arm] Automatic Cuff Blood Pressure Position [Right Arm] Sitting 02 Sat by Pulse Oximetry 94 L 93 L 97 Oxygen Delivery Method Room Air Room Air Room Air 02/18/25 08:38 02/18/25 08:39 02/18/25 08:43 Temperature Temperature Source Pulse Rate 65 69 Pulse Rate [Orthostatic Lying Right] 69 Pulse Rate [Orthostatic Sitting] 67 Pulse Rate [Orthostatic Standing] 73 Pulse Rate [Right] Respiratory Rate 14 12 Blood Pressure 122/63 134/68 Blood Pressure [Orthostatic Lying Left Arm] 134/68 Blood Pressure [Orthostatic Sitting] 126/62 Blood Pressure [Orthostatic Standing Left Arm] 91/47 L Blood Pressure [Right Arm] Blood Pressure Mean [Right Arm] Blood Pressure Source [Right Arm] Blood Pressure Position [Right Arm] 02 Sat by Pulse Oximetry 95 93 L Oxygen Delivery Method Room Air Room Air 02/18/25 08:45 02/18/25 09:00 02/18/25 09:30 Temperature Temperature Source Pulse Rate 77 61 Pulse Rate [Orthostatic Lying Right] Pulse Rate [Orthostatic Sitting] Pulse Rate [Orthostatic Standing] Pulse Rate [Right] Respiratory Rate 12 13 Blood Pressure 126/62 124/57 L 126/56 L Blood Pressure [Orthostatic Lying Left Arm] Blood Pressure [Orthostatic Sitting] Blood Pressure [Orthostatic Standing Left Arm] Blood Pressure [Right Arm] Blood Pressure Mean [Right Arm] Blood Pressure Source [Right Arm] Blood Pressure Position [Right Arm] 02 Sat by Pulse Oximetry 94 L 97 Oxygen Delivery Method Room Air Room Air 02/18/25 10:01 Temperature Temperature Source Pulse Rate 64 Pulse Rate [Orthostatic Lying Right] Pulse Rate [Orthostatic Sitting] Pulse Rate [Orthostatic Standing] Pulse Rate [Right] Respiratory Rate 17 Blood Pressure 138/99 H Blood Pressure [Orthostatic Lying Left Arm] Blood Pressure [Orthostatic Sitting] Blood Pressure [Orthostatic Standing Left Arm] Blood Pressure [Right Arm] Blood Pressure Mean [Right Arm] Blood Pressure Source [Right Arm] Blood Pressure Position [Right Arm] 02 Sat by Pulse Oximetry 97 Oxygen Delivery Method Room Air Lab Data Lab Results 02/18/25 08:39: WBC 7.9, RBC 3.77 L, Hgb 11.9 L, Hct 36.5 L, MCV 96.8 H, MCH 31.6 H, MCHC 32.6, RDW 15.7, Plt Count 204, MPV 10.4, Neut % (Auto) 58.5, Lymph % (Auto) 29.4, [facility] % (Auto) 9.1, Eos % (Auto) 2.4, Baso % (Auto) 0.3, Neut # (Auto) 4.6, Lymph # (Auto) 2.3, [facility] # (Auto) 0.7, Eos # (Auto) 0.2, Baso # (Auto) 0.0, Sodium 139, Potassium 3.8, Chloride 102, Carbon Dioxide 31 H, Anion Gap 9.8, BUN 32 H, Creatinine 1.70 H, Estimated Creat Clear 47, Estimated GFR 38 L, Est GFR ( Amer) 46 L, Glucose 117 H, Calcium 9.3, Magnesium 1.9, Total Bilirubin 0.5, AST 30, ALT 23, Alkaline Phosphatase 87, Troponin I 0.01, NT-Pro-B Natriuret Pep 1570 H, Total Protein 6.9, Albumin 4.1, Globulin 2.8, Albumin/Globulin Ratio 1.5 02/18/25 08:52: SARS-CoV-2 (PCR) Not detected, Influenza A Untype (PCR) Not detected, Influenza Type B (PCR) Not detected 02/18/25 08:39 02/18/25 08:39 Orders (Tests/Meds): ED MEDICATIONS Generic Name Dose Route Start Last Admin Trade Name Freq PRN Reason Stop Dose Admin Acetaminophen 650 mg 02/18/25 10:43 Acetaminophen 325mg Tab PO 03/20/25 10:42 Q4HP PRN Fever or Mild Pain (1-3) Insulin Human Lispro 0 unit 02/18/25 11:00 Humalog 100 Units/Ml 10ml Vial (Ssi) SUBCUT 03/20/25 10:59 ACHS FELICIANO Protocol Ondansetron HCl 4 mg 02/18/25 10:43 Ondansetron 4mg/2ml Vial IV 03/20/25 10:42 Q8HP PRN Nausea Discontinued Medications Generic Name Dose Route Start Last Admin Trade Name Freq PRN Reason Stop Dose Admin Clindamycin HCl 450 mg 02/18/25 10:15 02/18/25 10:33 Clindamycin 150mg Capsule PO 02/18/25 10:16 450 mg ONCE ONE Administration ORDERS Category Date Time Status Cardiology Consult [Consult to Cardiology] [CONS] Cons 02/18/25 09:52 Active Routine POCUS Point of Care (ER Only) Stat Exams 02/18/25 09:18 Completed BNP [NT Pro Brain Natriuretic Pep.] Stat Lab 02/18/25 08:39 Completed CBC w/Auto Diff [Complete Blood Count Auto Diff] Stat Lab 02/18/25 08:39 Completed CMP [Comprehensive Metabolic Panel] Stat Lab 02/18/25 08:39 Completed MG [Magnesium] Stat Lab 02/18/25 08:39 Completed Rapid PCR Covid and Flu A/B Stat Lab 02/18/25 08:52 Completed Trop I [Troponin I] Stat Lab 02/18/25 08:39 Completed Troponin I Q3H Lab 02/18/25 11:45 Ordered Troponin I Q3H Lab 02/18/25 14:45 Ordered ECG Data Tracing #1: Independently interpreted by me rate is 67, rhythm is irregular, no ST elevation in anatomical contiguous leads, QTc 426. Atrial fibrillation Medical Decision Narrative: In summary patient is an 84-year-old male with past medical history described above who presents to the emergency department for evaluation of multiple complaints including low blood pressure and global weakness. Patient is hemodynamically stable nontoxic-appearing upon arrival, afebrile, acceptable blood pressure. Differential for weakness is broad, he has no focal deficit to suggest CVA intracranial imaging was considered but will be deferred. Hematologic labs will be obtained. He also may be globally weak due to his depression which he is on Wellbutrin being managed currently. No active suicidal ideation that would warrant a hold at this time although his comments to son are concerning and he does need close outpatient management. EKG no ischemia bedside. Hematologic labs will be obtained, respiratory swab will be conducted. Initial workup reviewed by me no significant leukocytosis no transfusable anemia no LILY or critical electrolyte abnormality, there is chronic CKD. Mildly elevated BNP, initial troponin 0.01. Bffcj-hj-dvhv ultrasound at bedside shows mildly decreased ejection fraction no large pericardial effusion. Prolong discussion was had at bedside over patient's cardiac care and that he does need continued evaluation which he is open to further discussion although he declined AICD previously. He has a very flat affect, he does not currently have active suicidal ideation with a plan although he makes comments that are concerning such as things are not fixable anymore . I discussed the case with hospital medicine regarding management, I think patient should be medically optimized and then likely have behavioral health commentary at some point to make sure he is medically optimized given that they have recently changed medications. From a foot standpoint he has a denuded distal toe from trauma which I discussed case with Dr. Logan and we will continue with wound care and will start clindamycin for a week and she will arrange continued follow-up. The case was discussed with hospital medicine regarding management they will admit the patient their service for continued evaluation at this time. Procedure: Procedure performed was cardiac ultrasound, procedure performed by Thompson Lau. Phased array probe was used and identified the parasternal long and apical four-chamber views. Mild/moderate decreased ejection fraction, minimal excursion of the aortic valve on limited views. No large pericardial effusion. Images were technically adequate and saved to a permanent archive and did necessitate further imaging. Critical Care Critical Care Time Critical Care Time: No
[2025-02-18 08:48] LABS: Hematocrit 36.5 % (42.0-52.0); Hemoglobin 11.9 g/dL (14.1-18.0); Immature Granulocytes % 0.3 %; Mean Corpuscular HGB Conc 32.6 g/dL (31.8-35.4); Mean Corpuscular Hemoglobin 31.6 pg (27.0-31.2); Mean Corpuscular Volume 96.8 fl (80-94); Nucleated Red Blood Cells % 0 %; Platelet Count 204 K/mm3 (142-424); Red Blood Count 3.77 M/mm3 (4.60-6.20); Red Cell Distribution Width-SD 56.2 fL; White Blood Count 7.9 K/mm3 (4.8-10.8)
--- OUTSIDE RECORDS SUMMARY | 2025-02-18 08:52 | XMS_ITS | Encounter Summary ---
Author Organization [facility] yste Address [address] [place] [address] Care Team Providers Care Cook Barbecue Name Role Phone Christopher Yadav MD Primary Care Provider [phone] Reason for Visit * Reason Onset Date Comments Med Refill 02/16/2025 Encounter Details Date Type Department Care Team (Late st Contact Info) Description 02/16/2025 Refill [facility] ENDOCR[facility]OLOGY [address] [facility] [address] [place] [id number] Christopher Yadav MD [address] [facility] [address] [place] [address] Social History Tobacco Use Types Packs/Day Years Used Date Smoking Tobacco: Former Smokeless Tobacco: Never Comments:quit 1980 Alcohol Use Standard Drinks/Week Comments No 0 (1 standard drink = 0.6 oz pur e alcohol) [facility] Utilities Answer Date Recorded In the past 12 months has [employer], [employer], oil, or water [employer] threatened to shut off services in your [...] GED or equivalent No 10/30/2024 Preferred Language Citizen Of [place] 10/30/2024 Sex and Gender Information Value Date Recorded Sex Assigned at Not on file Legal Sex Male 1:45 PM EDT Gender Identity Not on file Sexual Orientation Not on file documented as of this encounter Plan of Treatment Upcoming Encounters Date Type Department Care Team (Late st Contact Info) Description 03/19/2025 1:15 PM EST Appointment [facility] NUTR[facility] [address] [place] [address] 06/19/2025 8:45 AM EDT Office Visit [facility] [address] [facility] [address] [place] [address] Daniel Vasquez MD [address] [facility] [address] [place], [place] [id number] documented as of this encounter Visit Diagnoses Not on filedocumented in this encounter Care Teams Cook Barbecue Relationship Specialty Start Date End Date Christopher Yadav MD [address] [facility] [address] [facility] [place] [address] PCP - General Internal Medicine 07/27/23 documented as of this encounter
--- OUTSIDE RECORDS SUMMARY | 2025-02-18 08:52 | XMS_ITS | Encounter Summary ---
Author Organization Healthcare Address [address] [place] [address] Care Team Providers Care Concrete Batching Plant Operator Name Role Phone Christopher Yadav MD Primary Care Provider [phone] Encounter Details Date Type Department Care Team (Late st Contact Info) Description 07/27/2023 Orders Only External Location [address] [place] [address] Provider, External Social History Tobacco Use Types [...] on filedocumented in this encounter Care Teams Concrete Batching Plant Operator Relationship Specialty Start Date End Date Christopher Yadav MD [address] [facility] [address] [place] [address] PCP - General 07/11/20 documented as of this encounter
--- OUTSIDE RECORDS SUMMARY | 2025-02-18 08:52 | XMS_ITS ---
Author Organization [employer] ([place], [place], [place], [place], [place]) Address [address] [place] [address] Care Team Providers Care Coroner Transport Technician Name Role Phone Chrsitopher Yadav MD Primary Care Provider [phone] Active Problems Problem Noted Date Diagnosed Date [...] Treatment Medications Discontinue Reason Plan Provider Cycles [facility] Prostate - leuprolide 22.5 mg (Eligard) every 84 days 4 09/17/2024 leuprolide acetate (3 month) (ELIGARD)sodiu m chloride 0.9 % (NS) Patient Preference Xochitl Serra MD 4 of 16 cycles started
--- OUTSIDE RECORDS SUMMARY | 2025-02-18 08:52 | XMS_ITS | Clinical Summary ---
[facility] Address [address] [place] [address] Care Team Providers Care Engine Hostler Name Role Phone Christopher Yadav MD Primary Care Provider [phone] Allergies No known active allergies Medications allopurinol [...] suggested checking CMP today but he says load mixer is checking this regularly.. Type 2 diabetes [...] 11:27 AM EST): Continue statin. He says search developer is checking lipids. Assessment & Plan (08/12/2021 [...] Diabetes will be reassessed in 3 months. [employer] 2 CGM was downloaded today. Data was [...] Encounters Date Type Department Care Team Description 02/16/2025 Refill [facility] [address] [place] [address] Christopher Yadav MD 02/08/2025 12:27 PM EST - 02/08/2025 11:59 PM EST Hospital Encounter [facility] [address] [place] [phone] Discharge Disposition: Home or Self Care 02/08/2025 Travel 12/19/2024 11:00 AM EDT Office Visit [facility] [address] [place] [address] Daniel Vasquez MD Uncontrolled type 2 diabetes mellitus with hyperglycemia (Primary Dx); Primary hypertension; Mixed hyperlipidemia; Coronary artery disease involving tanana coronary artery of tanana heart without angina pectoris 12/19/2024 Travel 12/04/2024 Telephone [facility] [address] [place] [address] Daniel [facility] MD [facility] from Last 3 Months Family History Medical [...] drink = 0.6 oz pur e alcohol) [facility] Utilities Answer Date Recorded In the past 12 months has [employer] electric, gas, oil, or water company threatened [...] GED or equivalent No 10/30/2024 Preferred Language Algerian 10/30/2024 Sex and Gender Information Value Date [...] Info) Description 03/19/2025 1:15 PM EST Appointment [facility] [address] [place] [address] 06/19/2025 8:45 AM EDT Office Visit [facility] [address] [facility] [address] [place] [phone] Daniel Vasquez MD [address] [facility] [address] [place] [address] Health Maintenance Due Date Last Done Comments [...] Hemoglobin A1C 7.7(A) 4.5 - 5.7 % [facility] Lot Number [id number] [facility] Expiration Date 07/27/2026 [facility] Blood 12/19/2024 11:1 8 AM EDT us Daniel Vasquez MD POINT OF CARE TEST ORDERA BLES Final Result [facility]
[address] [place] [address], * (ABNORMAL) POC Glucose, Blood (12/19/2024 11:15 [...] - 29.0 mg/g 05/19/2024 12:48 AM EDT [facility] Creatinine, Urine 53.7 mg/dL 05/19/2024 12:48 AM EDT [facility] Microalbumin, Urine 3.1 mg/dL 05/19/2024 12:48 AM EDT [facility] Urine Urine specimen obtained by clean catch procedure / Unknown Collection / Unknown 05/18/2024 12:04 PM EDT 05/18/2024 12:04 PM EDT us Daniel Vasquez MD URINE ORDERABLES Final Re sult [facility]
[address] [place] [address], * SCANNED - EYE EXAM (05/19/2022) Anatomical Region Laterality Modality Other us Daniel Vasquez MD CHART REVIEW TABS Savanah lucas Result from Last 3 Months or Most Recently Relevant to Health Maintenance Insurance MEDICARE A & B [facility] Advance Directives Documents on File Type Date Recorded Patient Qa Analyst Expl anation PATIENT ADVANCE DIRECTIVES - SCAN 11/02/2024 2:50 PM CODE STATUS DNR, [facility], 10/18/2024 LIVING WILL - SCAN 10/17/2024 11:54 AM MADDIE ING WILL, [facility], 02/08/2024 * No CPR (Do Not Attempt [...] pulse or is breathing): Full Care Teams Engine Hostler Relationship Specialty Start Date End Date Christopher Yadav MD [address] [facility] [address] [facility] [address] PCP - General Internal Medicine 07/27/23
--- OUTSIDE RECORDS SUMMARY | 2025-02-18 08:52 | XMS_ITS | Encounter Summary ---
Author Organization Healthcare Address [address] [place] [address] Care Team Providers Care Hourly Sign Language Interpreter Name Role Phone Christopher Yadav MD Primary Care Provider [phone] Encounter Details Date Type Department Care Team (Late st Contact Info) Description 07/27/2023 Orders Only External Location [address] [place] [address] Provider, External Social History Tobacco Use Types [...] on filedocumented in this encounter Care Teams Hourly Sign Language Interpreter Relationship Specialty Start Date End Date Christopher Yadav MD [address] [facility] [address] [place] [phone] (Work) PCP - General 07/11/20 documented as of this encounter
--- OUTSIDE RECORDS SUMMARY | 2025-02-18 08:52 | XMS_ITS | Clinical Summary ---
Author Organization [employer] ([place], [place], [place], [place], [place]) Address [address] [place] [address] Care Team Providers Care Mental Health Aide Name Role Phone Christopher Yadav MD Primary Care Provider [phone] Allergies No known active allergies Medications insulin [...] Description 12/26/2024 2:35 PM EDT Office Visit [facility] - [address] [address] Arnol Courtney MD Prostate cancer (HCC) (Primary [...] Date Ehsan rded Speak language other than Nicaraguan at home Not on file 03/11/2023 Want [...] Description 03/27/2025 3:00 PM EST Office Visit [facility] - [address] [place] [address] Arnol Courtney MD [address] [facility] [address] [place] [address] Health Maintenance Due Date Last [...] 12/03/2015, 03/14/2013 Medical Devices Implanted Type Area Open Hearth Worker Device Identifier Shelf Expiration Date Model / Serial / Lot Stents-Machado ry Stents-Coron maribel Heart Head Fem Delta 36mm +0mm - [id number] Implanted:Qty : 1 on 03/21/2023 by Eric Parkinson MD at [facility] [employer] Left: Hip EXACTECH [id number] 05/31/202736 / [id number] / Stem Fem Pf Sz9 113mm 190-31-09 - [id number] Implanted:Qty : 1 on 03/21/2023 by Eric Parkinson MD at [facility] [employer] Left: Hip EXACTECH [id number] 10/03/2027 190-31-09 / [id number] / Liner Ntrl Altn Xle Grp6 36mm 6 - [id number] Implanted:Qty : 1 on 03/21/2023 by Eric Parkinson MD at [facility] [employer] Left: Hip EXACTECH [id number] 03/17/2027 / [id number] / Cup Clstr-Hole Altn Pcg6 54mm 78-932-71 4 - [id number] Implanted:Qty : 1 on 03/21/2023 by Eric Parkinson MD at [facility] [employer] Left: Hip EXACTECH [id number] 10/25/203254 / [id number] / Procedures Procedure Name Priority Date/Time Associated [...] 10.8 K/ L 12/06/2024 10:47 AM EDT [facility] RBC 3.15(L) 3.80 - 5.20 M/ L 12/06/2024 10:47 AM EDT [facility] Hemoglobin 10.4(L) 12.8 - 17.4 GM/DL 12/06/2024 10:47 AM EDT [facility] Hematocrit 32.4(L) 39.0 - 51.0 % 12/06/2024 10:47 AM EDT [facility] MCV 103(H) 81 - 101 fL 12/06/2024 10:47 AM EDT [facility] MCH 33.0 27.0 - 34.0 pg 12/06/2024 10:47 AM EDT [facility] MCHC 32.1 32.0 - 36.0 GM/DL 12/06/2024 10:47 AM EDT [facility] RDW 15.4(H) 11.5 - 14.5 % 12/06/2024 10:47 AM EDT [facility] Platelets 176 150 - 400 K/CU MM 12/06/2024 10:47 AM EDT [facility] MPV 10.2 9.4 - 12.4 fL 12/06/2024 10:47 AM EDT [facility] Nucleated Red Blood Cell 0.0 0 - 0.2 % 12/06/2024 10:47 AM EDT [facility] % Neutros 71 37 - 80 % 12/06/2024 10:47 AM EDT [facility] % Lymphs 19 10 - 50 % 12/06/2024 10:47 AM EDT [facility] % Monos 9 5 - 13 % 12/06/2024 10:47 AM EDT [facility] % Eos 1 0 - 7 % 12/06/2024 10:47 AM EDT [facility] % Baso 0 0 - 3 % 12/06/2024 10:47 AM EDT [facility] NRBC Absolute <0.01 0 - 0.012 K/ul 12/06/2024 10:47 AM EDT [facility] # Neutros 5.50 2.00 - 6.90 K/ L 12/06/2024 10:47 AM EDT [facility] # Lymphs 1.50 0.60 - 3.40 K/ L 12/06/2024 10:47 AM EDT [facility] # Monos 0.67 0.00 - 0.90 K/ L 12/06/2024 10:47 AM EDT [facility] # Eos 0.06 0.00 - 0.70 K/ L 12/06/2024 10:47 AM EDT [facility] # Baso 0.02 0.00 - 0.20 K/ L 12/06/2024 10:47 AM EDT [facility] % Imm Grans 0.30 % 12/06/2024 10:47 AM EDT [facility] # IG 0.02(H) 0.00 - 0.00 K/uL 12/06/2024 10:47 AM EDT [facility] Blood Venipuncture / Unknown 12/06/2024 10:35 AM EDT 12/06/2024 10:44 AM EDT Narrative [facility] - 12/06/2024 10:47 AM EDT [...] Final Res ult [facility] [address] [place] [address] * (ABNORMAL) Testosterone, Adult Male(SENDOUT) (12/06/2024 10:35 AM EDT) Testosterone by Immunoassay <3(L) 300 - 720 ng/dL 12/07/2024 10:36 PM EDT [facility] Comment: INTERPRETIVE INFORMATION: Testosterone by Immunoassay Testosterone immunoassays are both imprecise and inaccurate at low testosterone concentrations, such as those found in children and cisgender females. For these individuals, testing by mass spectrometry is recommended; refer to Testosterone (Adult Females, Children, or Individuals on Testosterone-Suppressing Hormone Therapy) (Point[employer]io test code 0654293). Free or bioavailable testosterone measurements may provide supportive information. For individuals on testosterone hormone therapy, refer to cisgender male reference intervals. No reference intervals have been established for males younger than 14 years or for cisgender females. For a complete set of all established reference intervals, refer to [email or web address]/[id number]. Performed By: [facility] [address] [place] [id number] Specialist Field Engineer: Cameron Javier MD, PhD CLIA Number: [id number] Blood Venipuncture / Unknown 12/06/2024 10:35 AM EDT 12/06/2024 10:44 AM EDT Xochitl Serra MD LAB BLOOD ORDERABLES Final Res ult Performing Organization Address City/[facility]/ZIP Co de Phone Number [email or web address] [address] [place], [place] [id number], [facility] [phone] * PSA (Blazer, LUCIA, Conner, Scott, [facility]) (12/06/2024 10:35 AM EDT) PSA Diagnostic <0.10 0.00 - 4.00 ng/mL 12/06/2024 3:[address] [facility] Comment:[place] Alinity i sarah miluminescent immunoassay was used to obtain results. Results determined by assays using different manufacturers or methods may not be comparable. Blood Venipuncture / Unknown 12/06/2024 10:35 AM EDT 12/06/2024 10:44 AM EDT Xochitl Serra MD LAB BLOOD ORDERABLES Final Res ult [facility] [address] [place] [address], [facility] [phone] * (ABNORMAL) CMP (12/06/2024 10:35 AM EDT) Sodium 142 136 - 145 meq/L 12/06/2024 11:25 AM EDT [facility] Potassium 4.3 3.5 - 5.1 meq/L 12/06/2024 11:25 AM EDT [facility] Chloride 102 98 - 107 meq/L 12/06/2024 11:25 AM EDT [facility] CO2 32 21 - 32 meq/L 12/06/2024 11:25 AM EDT [facility] Calcium 8.6 8.5 - 10.1 mg/dL 12/06/2024 11:25 AM EDT [facility] Glucose 157(H) 74 - 100 mg/dL 12/06/2024 11:25 AM EDT [facility] BUN 32(H) 7 - 18 mg/dL 12/06/2024 11:25 AM EDT [facility] Creatinine 2.09(H) 0.70 - 1.20 mg/dL 12/06/2024 11:25 AM EDT [facility] BUN/Creatinine 15 12/06/2024 11:25 AM EDT [facility] Albumin 3.4 3.4 - 5.0 g/dL 12/06/2024 11:25 AM EDT [facility] Alkaline Phosphatase 96 46 - 116 U/L 12/06/2024 11:25 AM EDT [facility] ALT 10(L) 12 - 78 U/L 12/06/2024 11:25 AM EDT [facility] AST 11(L) 15 - 37 U/L 12/06/2024 11:25 AM EDT [facility] Total Bilirubin 0.5 0.2 - 1.0 mg/dL 12/06/2024 11:25 AM EDT [facility] Protein, Total 6.9 6.4 - 8.2 gm/dL 12/06/2024 11:25 AM EDT [facility] Anion Gap 12 11 - 22 12/06/2024 11:25 AM EDT [facility] A/G Ratio 1.0 12/06/2024 11:25 AM EDT [facility] Globulin 3.5 g/dL 12/06/2024 11:25 AM EDT [facility] Osmolality Calc 293.3 mOsm/kg 11:25 AM EDT [facility] eGFR (mL/min/1.73m2) 30(L) >=60 mL/min/1.7 3m2 12/06/2024 11:25 AM EDT [facility] Comment:ESTIMATED GFR IS NOT ACCURATE CREATININE CLEARANCE IN PREDICTING GLOMERULAR FILTRATION RATE. ESTIMATED GFR IS NOT APPLICABLE FOR DIALYSIS PATIENTS. Blood Venipuncture / Unknown 12/06/2024 10:35 AM EDT 12/06/2024 10:44 AM EDT us Xochitl Serra MD LAB BLOOD ORDERABLES Final Res ult Performing Organization Address [facility] Co de Phone Number [facility] [address] [phone] * (ABNORMAL) Hemoglobin A1c (03/15/2023 11:20 AM EST) Hemoglobin A1C 6.5(H) 4.2 - 6.3 % 03/15/2023 12:24 PM EST [facility] Comment: Hemoglobin A1C levels are related to mean glucose during the preceding 2-3 months. Less than 7% demonstrates glycemic control in diabetic patients. Hemoglobin AlC % Suggested Diagnosis > or = 6.5 Diabetic 5.7 - 6.4 Prediabetic <5.7 Non-diabetic eAVG Glucose 139.85 mg/dL 03/15/2023 12:24 PM EST [facility] Blood Venipuncture / Unknown 03/15/2023 11:20 AM EST 03/15/2023 11:35 AM EST us Eric Parkinson MD LAB BLOOD ORDERABLES Fi nal Result [facility] [address] [place], [place] [address] [place] [address] from Last 3 Months or Most Recently Relevant to Health Maintenance Insurance [place] [address] [place] [address] SUPP Advance Directives For more information, please contact: [phone] * Full Code (Latest Code Status on File) Date Activated Date Inactivated Comments 08/16/2023 10:48 AM 08/16/2023 7:35 PM * Full Code Date Activated Date Inactivated Comments 03/21/2023 11:25 AM 03/24/2023 3:00 PM * Full Code Date Activated Date Inactivated Comments 03/21/2023 5:18 AM 03/21/2023 11:25 AM Care Teams Mental Health Aide Relationship Specialty Start Date End Date Christopher Yadav MD [address] [place] [id number] PCP - General General Internal Medicine 03/15/23
--- OUTSIDE RECORDS SUMMARY | 2025-02-18 08:52 | XMS_ITS | Encounter Summary ---
Author Organization [employer] ([place], [place], [place], [place], [place]) Address [address] [place] [address] Care Team Providers Care Electrotype Molder Name Role Phone Chirstopher Yadav MD Primary Care Provider [phone] Encounter Details Date Type Department Care Team [...] Description 03/27/2025 3:00 PM EST Office Visit [facility] - [address] [place] [address] Arnol Courtney MD [address] [facility] [address] [place] [address] documented as of this encounter Visit Diagnoses Not on filedocumented in this encounter Care Teams Electrotype Molder Relationship Specialty Start Date End Date Christopher Yadav MD [address] [place] [address] [place] [address] PCP - General General Internal Medicine 03/15/23 documented as of this encounter
--- OUTSIDE RECORDS SUMMARY | 2025-02-18 08:52 | XMS_ITS | Encounter Summary ---
Author Organization Healthcare Address [address] [place] [address] Care Team Providers Care Carpenter Repair Name Role Phone Christopher Yadav MD Primary Care Provider [phone] Encounter Details Date Type Department Care Team (Late st Contact Info) Description 2023 Lab Requisition [facility] [address] [place] [address] Jamil Maynard MD [address] [facility] [address] [place] [address] Elevated prostate specific antigen (PSA) Social History [...] EDT) Case Report Sugical Pathology Consult Case: [id number] Authorizing Provider: Jamil Maynard MD Collected: 2023 1312 Ordering Location: [facility] Lab Received: 2023 1312 Pathologist: Donna Villalobos MD Specimen: Prostate, [id number] 08/25/2023 10:39 AM EDT [facility] Final Diagnosis PROSTATE, NEEDLE CORE BIOPSIES (REVIEW OF OUTSIDE SLIDES LABELED SM [id number], PROCEDURE DATE 08/16/2023). A. PROSTATE, RIGHT POSTERIOR [...] OF 1 CORE. 08/25/2023 10:39 AM EDT [facility] at 1038 EDT Comment Perineural invasion is identified. Cribriform pattern 4 is also seen. 08/25/2023 10:39 AM EDT [facility] Clinical Information R97.20 - Elevated prostate specific antigen (PSA) [ICD-10-CM] 08/25/2023 10:39 AM EDT [facility] Gross Description A. [id number] Received along with a corresponding pathology report from [facility] Laboratory are 8 slides labeled outside case: [id number] collected on 08/16/2023. 08/25/2023 10:39 AM EDT [facility] Intradepartmental Consultation with Agreement Kely Ghotra MD 08/25/2023 10:39 AM EDT [facility] Tissue Prostate / Unknown 1:12 PM EDT 2023 1:12 PM EDT us Jamil Maynard MD LAB PATHOLOGY ORDERABLES Savanah lucas Result [facility] [address] [place] [address] documented in this encounter Visit Diagnoses Diagnosis Elevated prostate specific antigen (PSA) documented in this encounter Care Teams Carpenter Repair Relationship Specialty Start Date End Date Christopher Yadav MD [address] [place], [place] [address] [address] [place] [address] PCP - General 07/11/20 documented as of this encounter
--- OUTSIDE RECORDS SUMMARY | 2025-02-18 08:52 | XMS_ITS | Encounter Summary ---
Author Organization Healthcare Address [address] [place] [address] Care Team Providers Care Associate Financial Advisor Name Role Phone Christopher Yadav MD Primary Care Provider [phone] Encounter Details Date Type Department Care Team (Late st Contact Info) Description 07/27/2023 Orders Only External Location [address] [place] [address] Provider, External Social History Tobacco Use Types [...] on filedocumented in this encounter Care Teams Associate Financial Advisor Relationship Specialty Start Date End Date Christopher Yadav MD [address] [facility] [address] [place] [id number] PCP - General 07/11/20 documented as of this encounter
--- OUTSIDE RECORDS SUMMARY | 2025-02-18 08:52 | XMS_ITS | Referral Summary ---
Author Organization [employer] ([place], [place], [place], [place], [place]) Address [address] [place] [address] Care Team Providers Care Box Blank Machine Feeder Name Role Phone Christopher Yadav MD Primary Care Provider [phone] Encounters Date Type Department Care Team Description 12/26/2024 Travel 12/26/2024 2:35 PM EDT Office Visit [facility] - [address] [address] Arnol Courtney MD Prostate cancer [...] Date Ehsan rded Speak language other than Hebrew at home Not on file 03/11/2023 Want [...] Description 03/27/2025 3:00 PM EST Office Visit [facility] - [address] [place] [address] Arnol Courtney MD [address] [address] Medical Devices Implanted Type Area Shipping Room Helper Device Identifier Shelf Expiration Date Model / Serial / Lot Stents-Machado ry Stents-Coron maribel Heart Head Fem Delta 36mm +0mm - [id number] Implanted:Qty : 1 on 03/21/2023 by Eric Parkinson MD at [facility] [employer] Left: Hip EXACTECH [id number] 05/31/202736 / [id number] / Stem Fem Pf Sz9 113mm 190-31-09 - [id number] Implanted:Qty : 1 on 03/21/2023 by Eric Parkinson MD at [facility] [employer] Left: Hip EXACTECH [id number] 10/03/2027 190 / [id number] / Liner Ntrl Altn Xle Grp6 36mm 6 - [id number] Implanted:Qty : 1 on 03/21/2023 by Eric Parkinson MD at [facility] [employer] Left: Hip EXACTECH [id number] 03/17/2027 / [id number] / Cup Clstr-Hole Altn Pcg6 54mm 79-194-30 4 - [id number] Implanted:Qty : 1 on 03/21/2023 by Eric Parkinson MD at [facility] [employer] Left: Hip EXACTECH [id number] 10/25/203254 / [id number] / Procedures Procedure Name Priority Date/Time Associated [...] 10.8 K/ L 12/06/2024 10:47 AM EDT [facility] RBC 3.15(L) 3.80 - 5.20 M/ L 12/06/2024 10:47 AM EDT [facility] Hemoglobin 10.4(L) 12.8 - 17.4 GM/DL 12/06/2024 10:47 AM EDT [facility] Hematocrit 32.4(L) 39.0 - 51.0 % 12/06/2024 10:47 AM EDT [facility] MCV 103(H) 81 - 101 fL 12/06/2024 10:47 AM EDT [facility] MCH 33.0 27.0 - 34.0 pg 12/06/2024 10:47 AM EDT [facility] MCHC 32.1 32.0 - 36.0 GM/DL 12/06/2024 10:47 AM EDT [facility] RDW 15.4(H) 11.5 - 14.5 % 12/06/2024 10:47 AM EDT [facility] Platelets 176 150 - 400 K/CU MM 12/06/2024 10:47 AM EDT [facility] MPV 10.2 9.4 - 12.4 fL 12/06/2024 10:47 AM EDT [facility] Nucleated Red Blood Cell 0.0 0 - 0.2 % 12/06/2024 10:47 AM EDT [facility] % Neutros 71 37 - 80 % 12/06/2024 10:47 AM EDT [facility] % Lymphs 19 10 - 50 % 12/06/2024 10:47 AM EDT [facility] % Monos 9 5 - 13 % 12/06/2024 10:47 AM EDT [facility] % Eos 1 0 - 7 % 12/06/2024 10:47 AM EDT [facility] % Baso 0 0 - 3 % 12/06/2024 10:47 AM EDT [facility] NRBC Absolute <0.01 0 - 0.012 K/ul 12/06/2024 10:47 AM EDT [facility] # Neutros 5.50 2.00 - 6.90 K/ L 12/06/2024 10:47 AM EDT [facility] # Lymphs 1.50 0.60 - 3.40 K/ L 12/06/2024 10:47 AM EDT [facility] # Monos 0.67 0.00 - 0.90 K/ L 12/06/2024 10:47 AM EDT [facility] # Eos 0.06 0.00 - 0.70 K/ L 12/06/2024 10:47 AM EDT [facility] # Baso 0.02 0.00 - 0.20 K/ L 12/06/2024 10:47 AM EDT [facility] % Imm Grans 0.30 % 12/06/2024 10:47 AM EDT [facility] # IG 0.02(H) 0.00 - 0.00 K/uL 12/06/2024 10:47 AM EDT [facility] Blood Venipuncture / Unknown 12/06/2024 10:35 AM EDT 12/06/2024 10:44 AM EDT Narrative [facility] - 12/06/2024 10:47 AM EDT When [...] MD LAB BLOOD ORDERABLES Final Res ult [facility] [address] [place] [address] * (ABNORMAL) Testosterone, Adult Male(SENDOUT) (12/06/2024 10:35 AM EDT) Testosterone by Immunoassay <3(L) 300 - 720 ng/dL 12/07/2024 10:36 PM EDT [facility] Comment: INTERPRETIVE INFORMATION: Testosterone by Immunoassay Testosterone immunoassays are both imprecise and inaccurate at low testosterone concentrations, such as those found in children and cisgender females. For these individuals, testing by mass spectrometry is recommended; refer to Testosterone (Adult Females, Children, or Individuals on Testosterone-Suppressing Hormone Therapy) (NDYuntaa test code [id number]). Free or bioavailable testosterone measurements may provide supportive information. For individuals on testosterone hormone therapy, refer to cisgender male reference intervals. No reference intervals have been established for males younger than 14 years or for cisgender females. For a complete set of all established reference intervals, refer to ltd[employer]/Tests/Pub/[id number]. Performed By: [facility] [address] [place] [address] Psychology Tech: Cameron Javier MD, PhD CLIA Number: [id number] Blood Venipuncture / Unknown 12/06/2024 10:35 AM EDT 12/06/2024 10:44 AM EDT Xochitl Serra MD LAB BLOOD ORDERABLES Final Res ult Performing Organization Address [facility] Co de Phone Number [facility] [address] [place] [address], [facility] [phone] * PSA (Blazer, LUCIA, [place], [place], [facility]) (12/06/2024 10:35 AM EDT) Pathologist [facility] PSA Diagnostic <0.10 0.00 - 4.00 ng/mL 12/06/2024 3:02 PM EDT [facility] Comment:[place] Alinity i sarah miluminescent immunoassay was used to obtain results. Results determined by assays using different manufacturers or methods may not be comparable. Blood Venipuncture / Unknown 12/06/2024 10:35 AM EDT 12/06/2024 10:44 AM EDT Xochitl Serra MD LAB BLOOD ORDERABLES Final Res ult Performing Organization Address City/[facility]/ZIP Co de Phone Number [facility] [address] [phone] * (ABNORMAL) CMP (12/06/2024 10:35 AM EDT) Pathologist [facility] Sodium 142 136 - 145 meq/L 12/06/2024 11:25 AM EDT [facility] Potassium 4.3 3.5 - 5.1 meq/L 12/06/2024 11:25 AM EDT [facility] Chloride 102 98 - 107 meq/L 12/06/2024 11:25 AM EDT [facility] CO2 32 21 - 32 meq/L 12/06/2024 11:25 AM EDT [facility] Calcium 8.6 8.5 - 10.1 mg/dL 12/06/2024 11:25 AM EDT [facility] Glucose 157(H) 74 - 100 mg/dL 12/06/2024 11:25 AM EDT [facility] BUN 32(H) 7 - 18 mg/dL 12/06/2024 11:25 AM EDT [facility] Creatinine 2.09(H) 0.70 - 1.20 mg/dL 12/06/2024 11:25 AM EDT [facility] BUN/Creatinine 15 12/06/2024 11:25 AM EDT [facility] Albumin 3.4 3.4 - 5.0 g/dL 12/06/2024 11:25 AM EDT [facility] Alkaline Phosphatase 96 46 - 116 U/L 12/06/2024 11:25 AM EDT [facility] ALT 10(L) 12 - 78 U/L 12/06/2024 11:25 AM EDT [facility] AST 11(L) 15 - 37 U/L 12/06/2024 11:25 AM EDT [facility] Total Bilirubin 0.5 0.2 - 1.0 mg/dL 12/06/2024 11:25 AM EDT [facility] Protein, Total 6.9 6.4 - 8.2 gm/dL 12/06/2024 11:25 AM EDT [facility] Anion Gap 12 11 - 22 12/06/2024 11:25 AM EDT [facility] A/G Ratio 1.0 12/06/2024 11:25 AM EDT [facility] Globulin 3.5 g/dL 12/06/2024 11:25 AM EDT [facility] Osmolality Calc 293.3 mOsm/kg 11:25 AM EDT [facility] eGFR (mL/min/1.73m2) 30(L) >=60 mL/min/1.7 3m2 12/06/2024 11:25 AM EDT [facility] Comment:ESTIMATED GFR IS NOT ACCURATE CREATININE CLEARANCE IN PREDICTING GLOMERULAR FILTRATION RATE. ESTIMATED GFR IS NOT APPLICABLE FOR DIALYSIS PATIENTS. Blood Venipuncture / Unknown 12/06/2024 10:35 AM EDT 12/06/2024 10:44 AM EDT Xochitl Serra MD LAB BLOOD ORDERABLES Final Res ult Performing Organization Address City/[facility]/ZIP Co de Phone Number [facility] [address] [place] [address], [facility] [phone] * (ABNORMAL) Hemoglobin A1c (03/15/2023 11:20 AM EST) Hemoglobin A1C 6.5(H) 4.2 - 6.3 % 03/15/2023 12:24 PM EST [facility] Comment: Hemoglobin A1C levels are related to mean glucose during the preceding 2-3 months. Less than 7% demonstrates glycemic control in diabetic patients. Hemoglobin AlC % Suggested Diagnosis > or = 6.5 Diabetic 5.7 - 6.4 Prediabetic <5.7 Non-diabetic eAVG Glucose 139.85 mg/dL 03/15/2023 12:24 PM EST [facility] Blood Venipuncture / Unknown 03/15/2023 11:20 AM EST 03/15/2023 11:35 AM EST Eric Parkinson MD LAB BLOOD ORDERABLES Fi nal Result Performing Organization Address City/[facility]/ZIP Co de Phone Number [facility] [address] [place], [place] [id number] [place] [address] from Last 3 Months or Most Recently Relevant to Health Maintenance Insurance MEDICARE PART A B SUPP Advance Directives For more information, please contact: [phone] * Full Code (Latest Code Status on File) Date Activated Date Inactivated Comments 08/16/2023 10:48 AM 08/16/2023 7:35 PM * Full Code Date Activated Date Inactivated Comments 03/21/2023 11:25 AM 03/24/2023 3:00 PM * Full Code Date Activated Date Inactivated Comments 03/21/2023 5:18 AM 03/21/2023 11:25 AM Care Teams Box Blank Machine Feeder Relationship Specialty Start Date End Date Christopher Yadav MD [address] [place] [address] PCP - General General Internal Medicine 03/15/23
--- OUTSIDE RECORDS SUMMARY | 2025-02-18 08:52 | XMS_ITS | Encounter Summary ---
Author Organization [facility] yste Address [address] [place] [address] Care Team Providers Care Steamfitter Supervisor Name Role Phone Christopher Yadav MD Primary Care Provider [phone] Reason for Visit * Reason Onset Date Comments [facility] 2 SENSORS 12/04/2024 Encounter Details Date Type Department Care Team (Late st Contact Info) Description 12/04/2024 Telephone [facility] [address] [address] Daniel Vasquez MD [address] [address] [facility] SENSORS Social History Tobacco Use Types Packs/Day Years Used Date Smoking Tobacco: Former Smokeless Tobacco: Never Comments:quit 1980 Alcohol Use Standard Drinks/Week Comments No 0 (1 standard drink = 0.6 oz pur e alcohol) [facility] Utilities Answer Date Recorded In the past 12 months has [employer], [employer], oil, or water [employer] threatened to shut off services in your [...] GED or equivalent No 10/30/2024 Preferred Language Burundian 10/30/2024 Sex and Gender Information Value Date [...] to patient: Self Best call back number: [phone] Patient is needing: PT RETURNING PATRICIA'S PHONE [...] to patient: Self Best call back number: [phone] Patient is needing: PT CALLING TO SPEAK [...] Info) Description 03/19/2025 1:15 PM EST Appointment [facility] [address] [place] [address] 06/19/2025 8:45 AM EDT Office Visit [facility] [address] [facility] [address] [place] [address] Daniel Vasquez MD [address] [facility] [address] [place] [address] documented as of this encounter Visit Diagnoses Not on filedocumented in this encounter Care Teams Steamfitter Supervisor Relationship Specialty Start Date End Date Christopher Yadav MD [address] [facility] [address] [place] [address] PCP - General Internal Medicine 07/27/23 documented as of this encounter
[2025-02-18 08:53] LABS: Albumin Level 4.1 g/dl (3.5-5.0); Chloride 102 mmol/L (98-107); Potassium 3.8 mmoL/L (3.5-5.1); Sodium 139 mmol/L (136-145)
--- OUTSIDE RECORDS SUMMARY | 2025-02-18 08:53 | XMS_ITS | Encounter Summary ---
Author Organization [facility] Address [address] [place] [address] Care Team Providers Care Tanning Wheel Operator Name Role Phone Christopher Yadav MD Primary Care Provider [phone] Encounter Details Date Type Department Care Team (Latest Contact Info) Description 02/08/2025 Travel Social History Tobacco Use Types Packs/Day Years Used Date Smoking Tobacco: Former Smokeless Tobacco: Never Comments:quit 1980 Alcohol Use Standard Drinks/Week Comments No 0 (1 standard drink = 0.6 oz pur e alcohol) [facility] Utilities Answer Date Recorded In the past 12 months has [employer], gas, oil, or water company threatened [...] GED or equivalent No 10/30/2024 Preferred Language Kuwaiti 10/30/2024 Sex and Gender Information Value Date Recorded Sex Assigned at Not on file Legal Sex Male 1:45 PM EDT Gender Identity Not on file Sexual Orientation Not on file documented as of this encounter Plan of Treatment Upcoming Encounters Date Type Department Care Team (Late st Contact Info) Description 03/19/2025 1:15 PM EST Appointment [facility] [address] [place] [address] 06/19/2025 8:45 AM EDT Office Visit [facility] [address] [facility] [address] [place] [id number] Daniel Vasquez MD [address] [facility] [address] [place] [address] documented as of this encounter Visit Diagnoses Not on filedocumented in this encounter Care Teams Tanning Wheel Operator Relationship Specialty Start Date End Date Christopher Yadav MD [address] [facility] [address] [facility] [address] [place] [address] PCP - General Internal Medicine 07/27/23 documented as of this encounter
--- OUTSIDE RECORDS SUMMARY | 2025-02-18 08:53 | XMS_ITS | Clinical Summary ---
Author Organization Healthcare Address [address] [place] [address] Care Team Providers Care Night Monitor Name Role Phone Christopher Yadav MD Primary Care Provider [phone] Allergies No known active allergies Medications allopurinol (Zyloprim) 100 MG tabletIndications: Hyperuricemia Take 1 tablet by mouth 2 times a day. 7 Active calcitriol (Rocaltrol) 0.25 MCG capsuleIndications :Hypocalcemia Take 1 capsule by mouth 3 times a week. 4 Active clopidogrel (Plavix) 75 MG tabletIndications: Acute Coronary Syndrome Take 1 tablet by mouth nightly. 7 Active cyanocobalamin 1000 MCG tabletIndications: Vitamin B12 Deficiency Take 1 tablet by mouth 1 time each day. Active furosemide (Lasix) 20 MG tabletIndications: Edema Take 1 tablet by mouth as needed (swelling). 3 Active gabapentin (Neurontin) 300 MG capsuleIndications :Neuropathic Pain 1 capsule in the morning and 2 capsules at night 9 Active hydrALAZINE (Apresoline) 10 MG tabletIndications: Hypertension Take 1 tablet by mouth twice a day. 4 Active insulin NPH-insulin regular (Novolin 70-30,Humulin 70-30) (70-30) 100 UNIT/ML injection vialIndications:Ty pe 2 Diabetes Mellitus Inject 15 Units under the skin 2 times a day before meals. 7 Active polyethylene glycol (Miralax) 17 g packetIndications: Constipation Take 17 g by mouth 1 time each day. Active simethicone (Mylicon,Gas-X) 125 MG capsuleIndications :Flatulence Take 1 capsule by mouth nightly. 9 Active simvastatin (Zocor) 40 MG tabletIndications: Hyperlipidemia Take 1 tablet (40 mg) by mouth every night. 7 Active tamsulosin (Flomax) 0.4 MG 24 hr capsuleIndications :Benign Prostatic Hypertrophy 4 Active apixaban (Eliquis) 2.5 MG tabletIndications: Atrial Fibrillation Take 1 tablet by mouth 2 times a day. Active carvedilol (Coreg) 3.125 MG tabletIndications: Hypertension 1 tablet. Patient takes only if blood pressure is above 120 Active predniSONE (Deltasone) 5 MG tabletIndications: Malignant Neoplasm of Prostate Take 1 tablet by mouth daily. Active empagliflozin (Jardiance) 10 MGIndications:Left Systolic Heart Failure Take 1 tablet by mouth daily. Active pantoprazole (Protonix) 40 MG EC tabletIndications: Heartburn Take 1 tablet by mouth daily before breakfast. Do not crush, chew, or split. Active pancrelipase, Fil-Jjbp-Tujw, (Creon) 33289-850797 units capsule delayed-release particles capsuleIndications :Pancreatic Insufficiency Take 1 capsule by mouth 3 times a day with meals. Active escitalopram (Lexapro) 10 MG tabletIndications: Major Depressive Disorder Take 1 tablet by mouth daily. 30 tablet 5 Active Active Problems Problem Noted Date Diagnosed Date Unspecified mood (affective) disorder 01/12/2025 Obesity (BMI 35.0-39.9 without comorbidity) 08/28 Encounters Date Type Department Care Team Description 02/05/2025 Telephone [facility] 3 [facility] [address] [place] [id number] Charlene Rodriguez 01/12/2025 Plan of Care Documentation [facility] Inpatient Psychiatry [address] [place] [address] 01/11/2025 10:31 PM EST - 01/16/2025 1:40 PM EST Hospital Encounter [facility] Inpatient Psychiatry [address] [place] [address] Davina Kang MD McClanahan, Sarah M, DO Depressive disorder (Primary Dx); Suicidal ideation Discharge [...] week 01/12/2025 How often do you attend psychiatric [employer] or jainism services? Never 01/12/2025 Do you belong to any clubs o r organizations such as confucianism groups, unions, fraternal or athletic groups, or [...] more drinks on one occasion? Never 01/12/2025 [facility] - Occupational Stress [...] any time in the past 12 m [facility], were you homeless or living in a custodial (including now)? No 01/12/2025 [facility] Utilities Answer Date Recorded In the [...] Done Comments [facility]-Medicare Annual Wellness (AWV) 1938 [facility]-/Child/Adol SDOH Screenings 1938 Diabetes: Dental Exam 1948 [facility]- SDOH Screenings 1956 [facility]-Adult SDOH Screenings 1956 [facility]-Zoster Vaccines (1 of 2) 1957 [facility]-RSV Vaccine: 60+ Years or (1 - 1-dose 75+ series) 2013 [facility]-DTaP,Tdap,and Td Vaccines (2 - Tdap) 02/28/2022 02/29/2012, 01/16/1998 [id number] Vaccine ( season) 2024 02/03/2023, 12/22/2021, 06/25/2021, [...] this topic Medical Devices Implanted Type Area Blind Lacer Device Identifier Shelf Expiration Date Model / [...] of18 resultswithin the time period is included. [facility] POCT Glucose 155(H) 74 - 99 mg/dL [...] for testing. Comment 01/16/2025 11:28 AM EST [facility] Milk Vendor ID Ness Barber 025 11:28 AM EST [employer] [facility] Device ID [id number] 01/16/2025 11:28 AM EST [facility] Specimen Type POC Capillary 01/16/2025 11:28 AM EST [facility] Blood Capillary blood specimen / Unknown 01/16/2025 11:27 AM EST 01/16/2025 11:28 AM EST Davina Nicholas DO LAB POINT OF CARE TEST DOCKED DEVICE UNSOLICITED RESULTS Final Result Performing Organization Address City/State/[facility] Co de Phone Number [facility] [address] [place] [id number] * Hepatitis B Surface Antigen - Empath (01/13/2025 5:13 AM EST) [facility] Hepatitis B Surf Antigen Negative Negative 01/13/2025 9:[address] [facility] Blood Venous blood specimen / Unknown Venipuncture / Unknown 01/13/2025 5:13 AM EST 01/13/2025 5:37 AM EST us Davina Kang MD LAB BLOOD ORDERABLES Final Resul t Performing Organization Address City/[facility]/ZIP Co de Phone Number [facility] [address] [place] [address] * Hepatitis C Antibody with Reflex to HCV Quant PCR - Empath (01/13/2025 5:13 AM EST) Hepatitis C Antibody Negative Negative 01/13/2025 6:59 AM EST [facility] Blood Venous blood specimen / Unknown Venipuncture / Unknown 01/13/2025 5:13 AM EST 01/13/2025 5:37 AM EST Davina Kang MD LAB BLOOD ORDERABLES Final Resul t Performing Organization Address [facility] Co de Phone Number [facility] [address] [place] [address] * TSH Reflex FT4 (01/13/2025 5:13 AM EST) Pathologist [facility] [place] Thyroid Stimulating Hormone, Plasma 3.08 0.40 - 4.20 uIU/mL 01/13/2025 7:02 AM EST [facility] Blood Venous blood specimen / Unknown Venipuncture / Unknown 01/13/2025 5:13 AM EST 01/13/2025 5:37 AM EST Davina Kang MD LAB BLOOD ORDERABLES Final Resul t Performing Organization Address City/[facility] Co de Phone Number [facility] [address] [place] [address] * HIV 1 & 2 Antibody/Antigen Screen (01/13/2025 5:13 AM EST) Pathologist [facility] [place] HIV 1 & 2 Antibody/Antigen Screen Non Reactive Non Reactive 01/13/2025 7:06 AM EST [facility] Comment:Screening for HIV 1 & 2 antibodies, and P24 antigen is NONREACTIVE. No confirmatory testing is required. Blood Venous blood specimen / Unknown Venipuncture / Unknown 01/13/2025 5:13 AM EST 01/13/2025 5:37 AM EST Vandana BUTCHER LAB BLOOD ORDERABLES Final Re sult [facility] [address] [place] [id number] * (ABNORMAL) CBC and differential (01/13/2025 5:13 AM EST) WBC Count 6.68 3.70 - 10.30 10*3/uL LAB HEMATOLOGY METHOD 01/13/2025 5:41 AM EST [facility] RBC Count 3.21(L) 4.60 - 6.10 10*6/uL LAB HEMATOLOGY METHOD 01/13/2025 5:41 AM EST [facility] HGB 10.2(L) 13.7 - 17.5 g/dL LAB HEMATOLOGY METHOD 01/13/2025 5:41 AM EST [facility] HCT 31.8(L) 40.0 - 51.0 % LAB HEMATOLOGY METHOD 01/13/2025 5:41 AM EST [facility] Platelet Count 177 155 - 369 10*3/uL LAB HEMATOLOGY METHOD 01/13/2025 5:41 AM EST [facility] MCV 99(H) 79 - 98 fL LAB HEMATOLOGY METHOD 01/13/2025 5:41 AM EST [facility] MCH 31.8 26.0 - 32.0 pg LAB HEMATOLOGY METHOD 01/13/2025 5:41 AM EST [facility] MCHC 32.1 30.7 - 35.5 g/dL LAB HEMATOLOGY METHOD 01/13/2025 5:41 AM EST [facility] RDW 16.0(H) 11.5 - 14.5 % LAB HEMATOLOGY METHOD 01/13/2025 5:41 AM EST [facility] MPV 10.5 8.8 - 12.5 fL LAB HEMATOLOGY METHOD 01/13/2025 5:41 AM EST [facility] nRBC 0.0 <=0.0 per 100 WBCs LAB HEMATOLOGY METHOD 01/13/2025 5:41 AM EST [employer] [facility] Differential Type Automated LAB HEMATOLOGY METHOD 01/13/2025 5:41 AM EST [facility] Neutrophils % 56 % LAB HEMATOLOGY METHOD 01/13/2025 5:41 AM EST [employer] [facility] Lymphocytes % 33 % LAB HEMATOLOGY METHOD 01/13/2025 5:41 AM EST [employer] [facility] Monocytes % 8 % LAB HEMATOLOGY METHOD 01/13/2025 5:41 AM EST [facility] Eosinophils % 1 % LAB HEMATOLOGY METHOD 01/13/2025 5:41 AM EST [facility] Basophils % 1 % LAB HEMATOLOGY METHOD 01/13/2025 5:41 AM EST [facility] Immature Granulocytes % 1 % LAB HEMATOLOGY METHOD 01/13/2025 5:41 AM EST [facility] Neutrophils Absolute 3.81 1.60 - 6.10 10*3/uL LAB HEMATOLOGY METHOD 01/13/2025 5:41 AM EST [facility] Lymphocytes Absolute 2.23 1.20 - 3.90 10*3/uL LAB HEMATOLOGY METHOD 01/13/2025 5:41 AM EST [facility] Monocytes Absolute 0.52 0.30 - 0.90 10*3/uL LAB HEMATOLOGY METHOD 01/13/2025 5:41 AM EST [facility] Eosinophils Absolute 0.04 0.00 - 0.50 10*3/uL LAB HEMATOLOGY METHOD 01/13/2025 5:41 AM EST [facility] Basophils Absolute 0.04 0.00 - 0.10 10*3/uL LAB HEMATOLOGY METHOD 01/13/2025 5:41 AM EST [facility] Immature Granulocytes Absolute 0.04 [...] ORDERABLES Final Resul t [facility] [address] [place] [id number] * Phosphorus (01/13/2025 5:13 AM EST) [facility] Phosphorus, Plasma 4.3 2.5 - 4.5 mg/dL 01/13/2025 7:02 AM EST [facility] Blood Venous blood specimen / Unknown Venipuncture / Unknown 01/13/2025 5:13 AM EST 01/13/2025 5:37 AM EST us Davina Kang MD LAB BLOOD ORDERABLES Final Resul t [facility] [address] [place] [address] * (ABNORMAL) Lipid panel (01/13/2025 5:13 AM EST) Cholesterol, Plasma 85 <200 mg/dL 01/13/2025 7:02 AM EST [facility] Comment: Cholesterol Reference Range (age >17 years): Desirable <200 mg/dL Borderline 200 to 239 mg/dL Undesirable >239 mg/dL HDL 35(L) >=40 mg/dL 01/13/2025 7:02 AM EST [facility] Comment: HDL Cholesterol Reference Ranges (age >17 years): Female, acceptable > or = 50 mg/dL Male, acceptable > or = 40 mg/dL Triglycerides, Plasma 92 <150 mg/dL 01/13/2025 7:02 AM EST [facility] Comment: Triglyceride Reference Range (age >17 years): Desirable: <150 mg/dL Borderline high: 150 to 199 mg/dL High: 200 to 499 mg/dL Very high: >499 mg/dL Increased risk of pancreatitis: >1000 mg/dL Cholesterol/HDL Ratio 2 01/13/2025 7:02 AM EST [facility] LDL, Calculated 32 <100 mg/dL 7:02 [...] MD LAB BLOOD ORDERABLES Final Resul t [facility] [address] [place] [address] * (ABNORMAL) Comprehensive metabolic panel (01/13/2025 5:13 AM EST) Glucose, Plasma 143(H) 74 - 99 mg/dL 01/13/2025 7:02 AM EST [facility] BUN, Plasma 25(H) 8 - 23 mg/dL 01/13/2025 7:02 AM [facility] Creatinine, Plasma 1.41(H) 0.70 - 1.20 mg/dL 01/13/2025 7:02 AM [facility] BUN/Creatinine Ratio 18 01/13/2025 7:02 AM [facility] Sodium, Plasma 139 136 - 145 mmol/L 01/13/2025 7:02 AM [facility] Potassium, Plasma 4.0 3.6 - 4.9 mmol/L 01/13/2025 7:02 AM [facility] Chloride, Plasma 103 97 - 107 mmol/L 01/13/2025 7:02 AM [facility] CO2, Plasma 30(H) 22 - 29 mmol/L 01/13/2025 7:02 AM [facility] Anion Gap 6 6 - 16 mmol/L 01/13/2025 7:02 AM [facility] Total Calcium, Plasma 9.0 8.9 - 10.2 mg/dL 01/13/2025 7:02 AM [facility] Total Protein 6.0(L) 6.3 - 7.9 g/dL 01/13/2025 7:02 AM [facility] Albumin, Plasma 3.7 3.5 - 5.2 g/dL 01/13/2025 7:02 AM [facility] AST, Plasma 13 10 - 50 U/L 01/13/2025 7:02 AM [facility] ALT, Plasma 6(L) 10 - 50 U/L 01/13/2025 7:02 AM [facility] Alkaline Phosphatase, Plasma 72 40 - 115 U/L 01/13/2025 7:02 AM [facility] Total Bilirubin, Plasma 0.5 0.2 - 1.1 mg/dL 01/13/2025 7:02 AM [facility] eGFRcr 48.5 mL/min/1.7 3m*2 01/13/2025 7:02 AM EST [facility] Comment:Reported eGFRcr in m L/min/1.73m2 is based the CKD-EPI 2020 equation that does not use a race coefficient. Blood Venous blood specimen / Unknown Venipuncture / Unknown 01/13/2025 5:13 AM EST 01/13/2025 5:37 AM EST Davina Kang MD LAB BLOOD ORDERABLES Final Resul t Performing Organization Address City/[facility] Co de Phone Number [facility] [address] [place] [address] * ECG Adult (01/12/2025 6:23 PM EST) EKG DIAGNOSIS CLASS Abnormal MUSE ECG Ventricular Rate 66 BPM MUSE ECG QRSD Interval 96 ms MUSE ECG QT Interval 414 ms MUSE ECG QTC Interval 434 ms MUSE ECG R [place] 38 degrees MUSE ECG T Wave [place] 94 degrees MUSE ECG Diagnosis Atrial fibrillation with premature ventricular or aberrantly conducted complexes MUSE ECG Diagnosis Indeterminate axis MUSE ECG Diagnosis Abnormal ECG MUSE ECG Diagnosis MUSE ECG Diagnosis Confirmed by Osmin Valerio ([id number]) on 01/13/2025 5:12:51 PM MUSE ECG 01/12/2025 6:23 PM EST 01/13/2025 5:12 PM EST Davina Kang MD ECG ORDERABLES Final Result Performing Organization Address [facility] Co de Phone Number MUSE ECG * (ABNORMAL) POCT Glucose - Before Meals and Bedtime (01/12/2025 8:17 AM EST) Pathologist [facility] [place] POCT Glucose 152(A) 74 - 99 mg/dL [facility] Test Strip Lot Number [id number] [facility] Test Strip Expiration [id number] [facility] Blood Venous blood specimen / Unknown 01/12/2025 8:17 AM EST Davina Kang MD POINT OF CARE TEST ENTER/EDIT OR DERABLES Final Result Performing Organization Address City/[facility]/ZIP Co de Phone Number [facility] [address] [place] [address] from Last 3 [place] [address] ANTHEM Advance Directives Documents on File Type Date Recorded 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
--- OUTSIDE RECORDS SUMMARY | 2025-02-18 08:53 | XMS_ITS | Encounter Summary ---
Author Organization [employer] ([place], [place], [place], [place], [place]) Address [address] [place] [address] Care Team Providers Care Redipper Name Role Phone Christopher Yadav MD Primary Care Provider [phone] Encounter Details Date Type Department Care Team (Late st Contact Info) Description 08/04/2023 Surgery Prep [facility] Urology - [address] [address] Samuel Mata MD [address] [address] Elevated PSA (Primary Dx) Social [...] Date Ehsan rded Speak language other than Czech at home Not on file 03/11/2023 Want [...] Description 03/27/2025 3:00 PM EST Office Visit [facility] - [address] [place] [address] Arnol Courtney MD [address] [facility] [address] [place] [address] documented as of this encounter Visit Diagnoses Diagnosis Elevated PSA- Primary Elevated prostate specific antigen (PSA) documented in this encounter Care Teams Redipper Relationship Specialty Start Date End Date Christopher Yadav MD [address] [facility] [address] [place] [address] PCP - General General Internal Medicine 03/15/23 documented as of this encounter
--- OUTSIDE RECORDS SUMMARY | 2025-02-18 08:53 | XMS_ITS | Encounter Summary ---
Author Organization Healthcare Address [address] [place] [address] Care Team Providers Care Custody Officer Name Role Phone Christopher Yadav MD Primary Care Provider [phone] Encounter Details Date Type Department Care Team (Late st Contact Info) Description 01/12/2025 Plan of Care Documentation [facility] Inpatient Psychiatry [address] [place] [address] Social History Tobacco Use Types [...] often do you attend chur ch or mormonism services? Never 01/12/2025 Do you belong to any clubs o r organizations such as mormonism groups, unions, fraternal or athletic groups, or [...] more drinks on one occasion? Never 01/12/2025 [facility] - Occupational Stress Questionnaire Answer Date Recorded [...] any time in the past 12 m [facility], were you homeless or living in a penitentiary (including now)? No 01/12/2025 [facility] Utilities Answer Date Recorded In the [...] documented as of this encounter Care Teams Custody Officer Relationship Specialty Start Date End Date Christopher Yadav MD [address] [place] [address] [address] [place] [address] PCP - General 07/11/20 documented as of this encounter
--- OUTSIDE RECORDS SUMMARY | 2025-02-18 08:53 | XMS_ITS | Encounter Summary ---
Author Organization Healthcare Address [address] [place] [address] Care Team Providers Care Goodyear Welter Name Role Phone Christopher Yadav MD Primary Care Provider [phone] Encounter Details Date Type Department Care Team [...] often do you attend chur ch or amish services? Never 01/12/2025 Do you belong to any clubs o r organizations such as voodoo groups, unions, fraternal or athletic groups, or [...] more drinks on one occasion? Never 01/12/2025 [facility] Occup[facility] ional Health - [...] any time in the past 12 m [facility], were you homeless or living in a senior living (including now)? No 01/12/2025 [facility] Utilities Answer Date Recorded In [...] documented as of this encounter Care Teams Goodyear Welter Relationship Specialty Start Date End Date Christopher Yadav MD [address] [place] [address] [address] [place] [facility] PCP - General 07/11/20 documented as of this encounter
--- OUTSIDE RECORDS SUMMARY | 2025-02-18 08:53 | XMS_ITS | Encounter Summary ---
Author Organization Healthcare Address [address] [place] [address] Care Team Providers Care Sustainable Products Marketing Manager Name Role Phone Christopher aYdav MD Primary Care Provider [phone] Encounter Details Date Type Department Care Team (Late st Contact Info) Description 02/05/2025 Telephone [facility] 3 [facility] [address] [place] [address] Charlene Rodriguez Social History Tobacco Use Types [...] any clubs o r organizations such as episcopalian groups, unions, fraternal or athletic groups, or [...] more drinks on one occasion? Never 01/12/2025 [facility] - Occupational Stress Questionnaire Answer Date Recorded [...] time in the past 12 m [facility], were you homeless or living in a correction (including now)? No 01/12/2025 [facility] Utilities Answer Date Recorded In [...] Best contact phone number and person contacted: [phone] Discharge date: 01/16/25 Date of call back: [...] documented as of this encounter Care Teams Sustainable Products Marketing Manager Relationship Specialty Start Date End Date Christopher Yadav MD [address] [place] [address] [address] [place] [address] PCP - General 07/11/20 documented as of this encounter
--- OUTSIDE RECORDS SUMMARY | 2025-02-18 08:53 | XMS_ITS | Encounter Summary ---
Author Organization [employer] ([place], [place], [place], [place], [place]) Address [address] [place] [address] Care Team Providers Care Mailing Section Clerk Name Role Phone Christopher Yadav MD Primary Care Provider [phone] Encounter Details Date Type Department Care Team (Late st Contact Info) Description 08/23/2023 Telephone [facility] - [address] [place] [address] Wanda Peres, SPOT WORKER Social History Tobacco Use Types Packs/Day Years [...] Date Ehsan rded Speak language other than Turk[place] at home Not on file 03/11/2023 Want [...] Description 03/27/2025 3:00 PM EST Office Visit [facility] - [address] [place] [address] Arnol Courtney MD [address] [facility] [address] [place] [address] documented as of this encounter Visit Diagnoses Not on filedocumented in this encounter Care Teams Mailing Section Clerk Relationship Specialty Start Date End Date Christopher Yadav MD [address] [place] [address] [place] [address] PCP - General General Internal Medicine 03/15/23 documented as of this encounter
[2025-02-18 08:55] LABS: Coronavirus 19, PCR Not Detected (NotDetected); Influenza A, PCR Not Detected (NotDetected); Influenza B, PCR Not Detected (NotDetected)
[2025-02-18 08:56] LABS: Alanine Aminotransferase 23 U/L (12-78); Albumin/Globulin Ratio 1.5 (1.1-1.8); Alkaline Phosphatase 87 U/L (38-126); Anion Gap 9.8 mEq/L (5-15); Aspartate Amino Transferase 30 U/L (17-59); Bilirubin,Total 0.5 mg/dl (0.2-1.3); Blood Urea Nitrogen 32 mg/dl (9-20); Calcium 9.3 mg/dl (8.4-10.2); Carbon Dioxide 31 mmol/L (22.0-30.0); Creatinine Clearance Estimated 47 mL/min (50-200); Creatinine,Serum 1.70 mg/dl (0.66-1.25); Estimated Glomerular Filt Rate 38 ml/min (>60); GFR (African American) 46 ML/MIN (>60); Globulin 2.8 g/dL (1.3-3.2); Glucose 117 mg/dl (74-100); Total Protein,Serum 6.9 g/dl (6.3-8.2)
[2025-02-18 08:57] LABS: Magnesium 1.9 mg/dl (1.6-2.3)
[2025-02-18 09:05] LABS: NT Pro Brain Natriuretic Pep. 1570 pg/mL (0-450)
[2025-02-18 09:10] LABS: Troponin I 0.01 ng/ml (0.00-0.034)
--- NOTE | 2025-02-18 09:42 | PC.NURSE ---
called cardiac for consult per Dr Lau
--- NOTE | 2025-02-18 10:04 | PC.NURSE ---
Dr. Logan, with podiatry at bedside.
--- NOTE | 2025-02-18 10:21 | EXP.POD.CONS ---
History of Present Illness *Admission Date: 02/18/25 *Reason for visit:: Left 2nd toe DFU *History of present illness: Patient is an 84-year-old male well-known to the podiatry service who was last seen in the office 02/11/25 after left toenail avulsion with superficial DFU. Patient was brought to the ER today by his son Malvin for evaluation for change of mental status and heart issues. ER consulted me to evaluate the toe. [facility] Disclaimer: The information contained in this section may have been updated after the patient was seen, as this information can be updated by other users. Medical History (Updated 02/18/25 @ 14:51 by Alexia López APRN) Major depressive disorder CHF (congestive heart failure) Diabetic ulcer of left foot Atrial fibrillation Sepsis Dyspnea Ingrown toenail of left foot Acute hypoxic respiratory failure Elevated troponin GERD (gastroesophageal reflux disease) Acute hyponatremia Hypomagnesemia Bruise of toe Hypertension Ingrown nail of great toe of left foot Postoperative dehiscence of skin wound Blister of fifth toe, left Encounter for dialysis Tear of retina History of COVID-19 History of cataract Edema Osteomyelitis of toe of left foot Other specified symptoms and signs involving the circulatory and respiratory systems Diabetic ulcer of left great toe Cellulitis of left foot Renal disease HTN (hypertension), benign HLD (hyperlipidemia) T2DM (type 2 diabetes mellitus) Coronary artery disease Anxiety Encounter for laboratory testing for COVID-19 virus Pain around toenail Onychomycosis Surgical History Hx of cataract surgery Hx of colonoscopy History of surgery History of coronary artery stent placement Hx of cardiac cath Family History Other Diabetes Heart attack Social History (Updated 02/18/25 @ 11:07 by Alicia Espinosa, RN) Smoking Status: Former smoker tobacco type: cigarettes alcohol intake: never substance use type: denies use current occupational status: retired Travel in the last 8 weeks?: None Have you lived/traveled outside US in past 30 days?: No Contact w/someone who lives/traveled outside US past 30 days?: No Exposure to someone with infectious disease in past 14 days?: No Do you have a fever (greater than 100.4 F or 38 C)?: No Have you tested positive for COVID-19?: No Exposed to someone with COVID-19 in past 14 days?: No Do you have a sore throat?: No Do you have a cough?: No Do you have any weakness?: Yes Are you experiencing any nausea/vomitting?: No Do you have any diarrhea?: No Are you experiencing any unusual bleeding?: No Do you have any muscle aches/pain?: No Do you have any abdominal pain?: No Are you experiencing loss of taste or smell?: No Meds Home Medications and Allergies Home Medications ?Medication ?Instructions ?Recorded ?Confirmed ?Type insulin human U-100 NPH-regulr 20 unit SQ HS 10/15/24 02/18/25 History 70-30 mix 100 unit/mL subcutaneous susp (Novolin 70/30 U-100 Insulin) insulin human U-100 NPH-regulr 35 unit SQ AM 10/15/24 02/18/25 History 70-30 mix 100 unit/mL subcutaneous susp (Novolin 70/30 U-100 Insulin) simvastatin 40 mg tablet 40 mg PO HS #90 tabs 10/25/24 02/18/25 Rx calcitriol 0.25 mcg capsule 0.25 mcg PO MOWEFR #108 caps 11/06/24 02/18/25 Rx polyethylene glycol 3350 17 gram 17 g PO DAILY 11/06/24 02/18/25 History oral powder packet carvedilol 3.125 mg tablet 3.125 mg PO BID #180 tabs 11/27/24 02/18/25 Rx tamsulosin 0.4 mg capsule 0.4 mg PO HS #90 caps 11/27/24 02/18/25 Rx clopidogrel 75 mg tablet 75 mg PO DAILY #90 tabs 12/31/24 02/18/25 Rx sacrosidase 8,500 unit/mL oral 2 ml PO 6XD #360 mL 01/18/25 02/18/25 Rx solution (Sucraid) allopurinol 100 mg tablet 100 mg PO BID #180 tabs 01/31/25 02/18/25 Rx apixaban 5 mg tablet (Eliquis) 2.5 mg (1/2 x 5 mg) PO BID #90 tabs 01/31/25 02/18/25 Rx cholecalciferol (vitamin D3) 50 50 mcg PO DAILY #90 caps 01/31/25 02/18/25 Rx mcg (2,000 unit) capsule (Vitamin D3) furosemide 40 mg tablet 40 mg PO BIDP PRN Edema #180 tabs 01/31/25 02/18/25 Rx gabapentin 300 mg capsule 300 mg PO TID #270 caps 01/31/25 02/18/25 Rx bupropion HCl 100 mg tablet,12 hr 100 mg PO DAILY #30 ea 02/15/25 02/18/25 Rx sustained-release empagliflozin 10 mg tablet 10 mg PO DAILY 02/18/25 02/18/25 History (Jardiance) escitalopram oxalate 5 mg tablet 5 mg PO DAILY 02/18/25 02/18/25 History mupirocin 2 % topical ointment 1 applic topical BID 02/18/25 02/18/25 History prednisone 5 mg tablet 5 mg PO DAILY 02/18/25 02/18/25 History New Prescriptions to Start Prescriptions: Allergies Allergy/AdvReac Type Severity Reaction Status Date / Time No Known Allergies Allergy Verified 02/11/25 10:47 Exam (Inpt) Vital signs and Labs for Last 24 Hours: Temp Pulse Resp BP Pulse Ox O2 Del Method 98.3 F 61 13 126/56 L 97 Room Air 02/18/25 08:30 02/18/25 09:30 02/18/25 09:30 02/18/25 09:30 02/18/25 09:30 02/18/25 09:30 Laboratory Results - last 24 hr 02/18/25 08:39: WBC 7.9, RBC 3.77 L, Hgb 11.9 L, Hct 36.5 L, MCV 96.8 H, MCH 31.6 H, MCHC 32.6, RDW 15.7, Plt Count 204, MPV 10.4, Neut % (Auto) 58.5, Lymph % (Auto) 29.4, [place] % (Auto) 9.1, Eos % (Auto) 2.4, Baso % (Auto) 0.3, Neut # (Auto) 4.6, Lymph # (Auto) 2.3, [place] # (Auto) 0.7, Eos # (Auto) 0.2, Baso # (Auto) 0.0, Sodium 139, Potassium 3.8, Chloride 102, Carbon Dioxide 31 H, Anion Gap 9.8, BUN 32 H, Creatinine 1.70 H, Estimated Creat Clear 47, Estimated GFR 38 L, Est GFR ( Amer) 46 L, Glucose 117 H, Calcium 9.3, Magnesium 1.9, Total Bilirubin 0.5, AST 30, ALT 23, Alkaline Phosphatase 87, Troponin I 0.01, NT-Pro-B Natriuret Pep 1570 H, Total Protein 6.9, Albumin 4.1, Globulin 2.8, Albumin/Globulin Ratio 1.5 02/18/25 08:52: SARS-CoV-2 (PCR) Not detected, Influenza A Untype (PCR) Not detected, Influenza Type B (PCR) Not detected I & O for Labs for Last 24 Hours: Intake & Output 02/15/25 02/16/25 02/17/25 02/18/25 11:59 11:59 11:59 11:59 Weight 237 lb Constitutional: Present obese and chronically ill appearing Head: Present normocephalic Eye: Present as per HPI Neck: Present normal inspection Respiratory: Present normal respiratory effort Cardiac: Present pedal pulses present (decreased pedal pulses) GI: Present soft Rectal (male): Present deferred (male): Present deferred Extremities: Present normal inspection, full ROM and normal capillary refill Skin: Present intact Comment:: 02/18/25: Left 2nd toenail not present. Some black bruised appearance to distal toe. No ez purulence, malodor or ascending cellulitis. Likely distal toe discoloration is from traumatic nail avulsion last week and hx PAD. No evidence of wet gangrene. 02/11/25: DOI: 02/11/24, left 2nd tip loss of nail and skin. Approx. 1.0 x 1.0 x 0cm. Scant bleeding, (02/11- Wcx taken) nail bed intact, no nail noted. 100% granular, no purulent drainage noted. Cleaned with wound well cleaner, painted w/betadine, applied Triple antibiotic ointment in office and will apply mupirocin 2% topical antibiotic ointment at home with silver and bandaid. Daily dressing changes. Neuro: Present Numbness, Motor Function Intact, Tingling, oriented x 3 and moves all extremities; Absent Sensory Function Intact Ankle: bilateral: normal inspection and bilateral: swelling (chronic b/l LE edema) Feet/Toes: left: amputation (4th toe), left: crepitus and left: wound (L 2nd toe DFU, hx TNA 02/10/25) and bilateral: deformity (rigid 2nd toe (hx sx)), bilateral: hammer toe, bilateral: nail abnormalities and bilateral: swelling Pulses: L dorsalis pedis pulse: normal, R dorsalis pedis pulse: normal, L posterior tibial pulse: normal and R posterior tibial pulse: normal CFT: normal: CFT Results Labs 02/18/25 08:39 02/18/25 08:39 Labs: Abnormal lab results 02/18/25 Range/Units 08:39 RBC 3.77 L (4.60-6.20) M/mm3 Hgb 11.9 L (14.1-18.0) g/dL Hct 36.5 L (42.0-52.0) % MCV 96.8 H (80-94) fl MCH 31.6 H (27.0-31.2) pg Carbon Dioxide 31 H (22.0-30.0) mmol/L BUN 32 H (9-20) mg/dl Creatinine 1.70 H (0.66-1.25) mg/dl Estimated GFR 38 L (>60) ml/min Est GFR ( Amer) 46 L (>60) ML/MIN Glucose 117 H (74-100) mg/dl NT-Pro-B Natriuret Pep 1570 H (0-450) pg/mL H & H 02/18/25 Range/Units 08:39 Hgb 11.9 L (14.1-18.0) g/dL Hct 36.5 L (42.0-52.0) % All other labs normal. Assessment and Plan *Assessment and plan (1) Diabetic ulcer of toe of left foot: Status: Acute Qualifiers: Diabetes mellitus type: type 2 Non-pressure ulcer stage: limited to breakdown of skin Qualified Code(s): E11.621 - Type 2 diabetes mellitus with foot ulcer; L97.521 - Non-pressure chronic ulcer of other part of left foot limited to breakdown of skin Category: Medical Code(s): E11.621 - Type 2 diabetes mellitus with foot ulcer; L97.529 - Non-pressure chronic ulcer of other part of left foot with unspecified severity (2) Wound, open, foot: Status: Acute Qualifiers: Encounter type: sequela Laterality: left Qualified Code(s): S91.302S - Unspecified open wound, left foot, sequela Category: Medical Code(s): S91.309A - Unspecified open wound, unspecified foot, initial encounter (3) Total avulsion of nail plate: Status: Acute Category: Medical (4) Orthostatic hypotension: Status: Acute Category: Medical Code(s): I95.1 - Orthostatic hypotension (5) Atrial fibrillation: Status: Chronic Qualifiers: Atrial fibrillation type: persistent (not longstanding) Qualified Code(s): I48.19 - Other persistent atrial fibrillation Category: Medical Code(s): I48.91 - Unspecified atrial fibrillation (6) Chronic kidney disease, stage III (moderate): Status: Chronic Qualifiers: Chronic kidney disease stage 3 subtype: unspecified whether 3a or 3b Qualified Code(s): N18.30 - Chronic kidney disease, stage 3 unspecified Category: Medical Code(s): N18.30 - Chronic kidney disease, stage 3 unspecified (7) Prostate cancer metastatic to bone: Status: Chronic Category: Medical Code(s): C61 - Malignant neoplasm of prostate; C79.51 - Secondary malignant neoplasm of bone (8) Adrenal insufficiency: Status: Acute Category: Medical Code(s): E27.40 - Unspecified adrenocortical insufficiency (9) CAD (coronary artery disease): Status: Chronic Qualifiers: Associated angina: without angina Coronary Disease-Associated Artery/Lesion type: [place] artery [place] vs. transplanted heart: [place] heart Qualified Code(s): I25.10 - Atherosclerotic heart disease of [place] coronary artery without angina pectoris Category: Medical Code(s): I25.10 - Atherosclerotic heart disease of [place] coronary artery without angina pectoris Plan Cardiology eval -Patient declined pacemaker last week with Dr Avila -Defer to cardiology note Depression and Suicidal Ideation -Patient/family need goals of care discussion with ER provider -Did discuss with Malvin (son) - regarding inpatient eval from Psych last week -Defer to ER/Hospitalist team Diabetic Foot Ulcer, Left 2nd toe -Podiatry consult for left 2nd toe DFU -Scheduled for office visit today but went to ER for low blood pressure. -DOI: 02/10/25, left 2nd toenail avulsion -KALPESH: 02/11/25, wound culture: Staph hominis S: clinda, vanco, gent. Left 2nd toe ulcer (DFU), loss of nail -Distal tip, loss of skin and nail, nail bed intact. -New black discoloration. Scant bleeding, no purulent drainage or signs of infection. -Discussed possibility of PAD causing bruising vs new dry gangrene. -Recommended new x-rays 3v left foot to r/o new underlying osteomyelitis, new ABIs to access healing potential. *Patient declined. -He does not want any other testing or treatment for foot (refuses debridement, amputation so what's the point to do more testing, I just don't want it ). -Did a wound culture from L 2nd toe (02/11/25). Rec to ER physician starting Clinda x7d for Staph (ok to do Vanco vs Clinda if inpatient-defer to Hospitalist team). -Clean site, no debridement, paint with betadine, apply triple antibiotic, (will use Mupirocin at home) and gauze. -New Rx for Mupirocin given KALPESH. -Keep site clean and dry, cover when in shower. -Daily dressing changes: paint with betadine while inpatient. Ok to leave open to air. *Put triple abx, gauze, secure with perez or tape if putting on shoes (post op shoe). -Monitor and call office if infx signs noted. -Follow up 1-[address] Logan or Gracie MICHAEL.
--- NOTE | 2025-02-18 10:30 | PC.NURSE ---
Arnav with cardiology at bedside
[2025-02-18] MEDS: CLINDAMYCIN 150MG CAPSULE 450 MG PO (10:33)
--- NOTE | 2025-02-18 10:36 | PC.NURSE ---
supervisor sheet manufacturing contacted regarding bed.
--- NOTE | 2025-02-18 10:41 | EXP.CARD.CON ---
History of Present Illness History of Present Illness Consult date: 02/18/25 Requesting physician: Thompson Lau Chief complaint: weakness History of present illness: 84-year-old white male typically follows with Dr. Jackson in [place] with history of CAD, atrial fibrillation with sick sinus syndrome, diabetes, CKD, prostate cancer, prior suicidal ideation and severe depression. Presents to the emergency room for evaluation of weakness. Orthostatic vitals in the emergency room indicated a systolic blood pressure drop of 45 points when standing. Remainder of workup largely unremarkable. Patient has had approximately 30-40 pounds of weight loss in the past 2 to 3 months secondary to pancreatic enzyme issue followed by GI per family. Patient also has severe depression which is contributing and has low p.o. intake. They report recently evaluation with EP at [facility] in [place] and heart monitor indicated bradycardia to the 30s and recommended pacemaker but patient declined at that time. Here he is rate controlled. Family is bedside providing majority of the history. Patient is alert and oriented but not forthright with much information. [facility] Disclaimer: The information contained in this section may have been updated after the patient was seen, as this information can be updated by other users. Medical History (Updated 02/18/25 @ 11:09 by Abimbola Logan DPM) Major depressive disorder CHF (congestive heart failure) Diabetic ulcer of left foot Atrial fibrillation Sepsis Dyspnea Ingrown toenail of left foot Acute hypoxic respiratory failure Elevated troponin GERD (gastroesophageal reflux disease) Acute hyponatremia Hypomagnesemia Bruise of toe Hypertension Ingrown nail of great toe of left foot Postoperative dehiscence of skin wound Blister of fifth toe, left Encounter for dialysis Tear of retina History of COVID-19 History of cataract Edema Osteomyelitis of toe of left foot Other specified symptoms and signs involving the circulatory and respiratory systems Diabetic ulcer of left great toe Cellulitis of left foot Renal disease HTN (hypertension), benign HLD (hyperlipidemia) T2DM (type 2 diabetes mellitus) Coronary artery disease Anxiety Encounter for laboratory testing for COVID-19 virus Pain around toenail Onychomycosis Surgical History Hx of cataract surgery Hx of colonoscopy History of surgery History of coronary artery stent placement Hx of cardiac cath Family History Other Diabetes Heart attack Social History (Updated 02/18/25 @ 11:07 by Alicia Espinosa RN) Smoking Status: Former smoker tobacco type: cigarettes alcohol intake: never substance use type: denies use current occupational status: retired Travel in the last 8 weeks?: None Have you lived/traveled outside US in past 30 days?: No Contact w/someone who lives/traveled outside US past 30 days?: No Exposure to someone with infectious disease in past 14 days?: No Do you have a fever (greater than 100.4 F or 38 C)?: No Have you tested positive for COVID-19?: No Exposed to someone with COVID-19 in past 14 days?: No Do you have a sore throat?: No Do you have a cough?: No Do you have any weakness?: Yes Are you experiencing any nausea/vomitting?: No Do you have any diarrhea?: No Are you experiencing any unusual bleeding?: No Do you have any muscle aches/pain?: No Do you have any abdominal pain?: No Are you experiencing loss of taste or smell?: No Review of Systems Constitutional Constitutional: Reports fatigue and Reports weakness Eyes Eyes: Denies loss of vision ENT Ears, Nose, Mouth, and Throat: Denies hearing loss and Denies vertigo *Cardiovascular Cardiovascular: Denies chest pain, Denies dyspnea and Denies syncope *Respiratory Respiratory: Denies cough and Denies dyspnea *Gastrointestinal Gastrointestinal: Denies change in stool character, Denies nausea and Denies vomiting *Genitourinary Genitourinary: Denies difficulty urinating *Musculoskeletal Musculoskeletal: Denies muscle weakness Integumentary/Breasts Skin/Breast: Denies changing lesions *Neurologic Neurologic: Denies loss of vision, Denies syncope, Denies vertigo and Reports weakness Endocrine Endocrine: Reports fatigue Exam Data for Last 24 hours Vital signs and Labs for Last 24 Hours: Temp Pulse Resp BP Pulse Ox O2 Del Method 98.3 F 64 17 138/99 H 97 Room Air 02/18/25 08:30 02/18/25 10:01 02/18/25 10:01 02/18/25 10:01 02/18/25 10:01 02/18/25 10:01 Laboratory Results - last 24 hr 02/18/25 08:39: WBC 7.9, RBC 3.77 L, Hgb 11.9 L, Hct 36.5 L, MCV 96.8 H, MCH 31.6 H, MCHC 32.6, RDW 15.7, Plt Count 204, MPV 10.4, Neut % (Auto) 58.5, Lymph % (Auto) 29.4, [place] % (Auto) 9.1, Eos % (Auto) 2.4, Baso % (Auto) 0.3, Neut # (Auto) 4.6, Lymph # (Auto) 2.3, [place] # (Auto) 0.7, Eos # (Auto) 0.2, Baso # (Auto) 0.0, Sodium 139, Potassium 3.8, Chloride 102, Carbon Dioxide 31 H, Anion Gap 9.8, BUN 32 H, Creatinine 1.70 H, Estimated Creat Clear 47, Estimated GFR 38 L, Est GFR ( Amer) 46 L, Glucose 117 H, Calcium 9.3, Magnesium 1.9, Total Bilirubin 0.5, AST 30, ALT 23, Alkaline Phosphatase 87, Troponin I 0.01, NT-Pro-B Natriuret Pep 1570 H, Total Protein 6.9, Albumin 4.1, Globulin 2.8, Albumin/Globulin Ratio 1.5 02/18/25 08:52: SARS-CoV-2 (PCR) Not detected, Influenza A Untype (PCR) Not detected, Influenza Type B (PCR) Not detected I & O for Last 24 hours: Intake & Output 02/15/25 02/16/25 02/17/25 02/18/25 23:59 23:59 23:59 23:59 Weight 237 lb Constitutional Constitutional: no acute distress and cooperative *Routine HEENT Exam Eye: Present PERRL *Routine Respiratory Exam Respiratory: Present CTA bilaterally; Absent accessory muscle use, wheezes or crackles *Routine Cardiovascular Exam Cardiovascular: Present RRR, Normal S1 and Normal S2; Absent murmur, gallop or rubs *Routine Abdominal Exam Abdominal: Present soft; Absent tenderness *Routine Extremities Exam Extremities: Present edema (trace BLE edema) and pulses intact; Absent cyanosis *Routine Skin Exam Skin: Present intact; Absent erythema or wounds *Routine Neurological Exam Neurological: Present alert and oriented X3 Routine Psychiatric Exam Psychiatric: Present cooperative Meds Home Medications and Allergies Home Medications ?Medication ?Instructions ?Recorded ?Confirmed ?Type insulin human U-100 NPH-regulr 20 unit SQ HS 10/15/24 02/18/25 History 70-30 mix 100 unit/mL subcutaneous susp (Novolin 70/30 U-100 Insulin) insulin human U-100 NPH-regulr 35 unit SQ AM 10/15/24 02/18/25 History 70-30 mix 100 unit/mL subcutaneous susp (Novolin 70/30 U-100 Insulin) simvastatin 40 mg tablet 40 mg PO HS #90 tabs 10/25/24 02/18/25 Rx calcitriol 0.25 mcg capsule 0.25 mcg PO MOWEFR #108 caps 11/06/24 02/18/25 Rx polyethylene glycol 3350 17 gram 17 g PO DAILY 11/06/24 02/18/25 History oral powder packet carvedilol 3.125 mg tablet 3.125 mg PO BID #180 tabs 11/27/24 02/18/25 Rx tamsulosin 0.4 mg capsule 0.4 mg PO HS #90 caps 11/27/24 02/18/25 Rx clopidogrel 75 mg tablet 75 mg PO DAILY #90 tabs 12/31/24 02/18/25 Rx sacrosidase 8,500 unit/mL oral 2 ml PO 6XD #360 mL 01/18/25 02/18/25 Rx solution (Sucraid) allopurinol 100 mg tablet 100 mg PO BID #180 tabs 01/31/25 02/18/25 Rx apixaban 5 mg tablet (Eliquis) 2.5 mg (1/2 x 5 mg) PO BID #90 tabs 01/31/25 02/18/25 Rx cholecalciferol (vitamin D3) 50 50 mcg PO DAILY #90 caps 01/31/25 02/18/25 Rx mcg (2,000 unit) capsule (Vitamin D3) furosemide 40 mg tablet 40 mg PO BIDP PRN Edema #180 tabs 01/31/25 02/18/25 Rx gabapentin 300 mg capsule 300 mg PO TID #270 caps 01/31/25 02/18/25 Rx bupropion HCl 100 mg tablet,12 hr 100 mg PO DAILY #30 ea 02/15/25 02/18/25 Rx sustained-release empagliflozin 10 mg tablet 10 mg PO DAILY 02/18/25 02/18/25 History (Jardiance) escitalopram oxalate 5 mg tablet 5 mg PO DAILY 02/18/25 02/18/25 History mupirocin 2 % topical ointment 1 applic topical BID 02/18/25 02/18/25 History prednisone 5 mg tablet 5 mg PO DAILY 02/18/25 02/18/25 History New Prescriptions to Start Prescriptions: Allergies Allergy/AdvReac Type Severity Reaction Status Date / Time No Known Allergies Allergy Verified 02/11/25 10:47 Assessment and Plan *Assessment and plan (1) Orthostatic hypotension: Status: Acute Category: Medical Code(s): I95.1 - Orthostatic hypotension (2) Atrial fibrillation: Status: Chronic Qualifiers: Atrial fibrillation type: persistent (not longstanding) Qualified Code(s): I48.19 - Other persistent atrial fibrillation Category: Medical Code(s): I48.91 - Unspecified atrial fibrillation (3) Chronic kidney disease, stage III (moderate): Status: Chronic Qualifiers: Chronic kidney disease stage 3 subtype: unspecified whether 3a or 3b Qualified Code(s): N18.30 - Chronic kidney disease, stage 3 unspecified Category: Medical Code(s): N18.30 - Chronic kidney disease, stage 3 unspecified (4) Prostate cancer metastatic to bone: Status: Chronic Category: Medical Code(s): C61 - Malignant neoplasm of prostate; C79.51 - Secondary malignant neoplasm of bone (5) Adrenal insufficiency: Problem Comment: Patient is to stay on prednisone 5 mg p.o. every morning for now and if he desires to get off of it it should be by a slow taper. Status: Acute Category: Medical Code(s): E27.40 - Unspecified adrenocortical insufficiency (6) CAD (coronary artery disease): Status: Chronic Qualifiers: Associated angina: without angina Coronary Disease-Associated Artery/Lesion type: [place] artery [place] vs. transplanted heart: [place] heart Qualified Code(s): I25.10 - Atherosclerotic heart disease of [place] coronary artery without angina pectoris Category: Medical Code(s): I25.10 - Atherosclerotic heart disease of [place] coronary artery without angina pectoris Plan Orthostatic hypotension - 40 point drop in systolic blood pressure in ER - Secondary to 40 pound weight loss over the past 2 to 3 months due to GI issue and low PO intake - Recommend gentle rehydration with 1 L normal saline, diabetic diet here - repeat AM Coritsol tomorrow - was low a few months ago. Paroxysmal atrial fibrillation with sick sinus syndrome - Family reports recent heart monitor in [place] with heart rate in the 30s - EP Dr. Hollins has recommended pacemaker implant which patient declines - continue to monitor on telemetry here - cont Eliquis - pt needs goals of care clarified - declines PPM/treatment but comes to ER when symptomatic CAD - hx of TELLO, year? - CCS = 0 - cont home meds - check EKG and ECHO HFpEF - ProBNP 1500 - Bedside ECHO by ER MD shows moderately reduced EF - pt family report recent ECHO at [facility] showed normal EF - will check full 2D ECHO here - gentle rehydration Diabetic Foot Ulcer, LLE - Podiatry evaluating Prostate Cancer - s/p chemical castration per family, PSA down from 30s to <1 - CT abd/pelvis here in September normal Depression and Suicidal Ideation - pt/family need goals of care discussion
--- NOTE | 2025-02-18 10:43 | CA_ITS ---
APPROVED REPORT EXAM: Comprehensive 2D, Doppler, and color-flow Echocardiogram Melt Supervisor: Ngoc Bonilla RDCS Ht: 6 ft 0 in Wt: 237lbs BSA: 2.29 BP: 138/99 mmHg Indications: LV FXN AF 2D Dimensions LA Volume 115.90 mL LA Volume Index 50.61 mL/m2 (M/F) 16-34 M-Mode Dimensions RVDd 2.04 cm (0.9-2.6) LVDd 6.54 cm (3.5-5.7) LVDs 4.72 cm (3.5-5.7) IVSd 0.81 cm (0.6-1.1) PWd 0.87 cm (0.6-1.1) EF (Teich) 52.80% FS 27.80% EDV (Teich) 219.00 mL TAPSE 2.52 (<1.7) ESV (Teich) 103.40 mL LV Diastology E Decel Time 147 (160-240 msec) E/A Ratio 3.5 Aortic Valve RAJESH Index 0.70 cm2/m2 AoV Peak Norberto. 183.0 (50-130 cm/s) AO Peak GR. 13.50 mmHg AO Mean GR. 6.60 (<5 mmHg) AO VTI 39.0 (18-25 cm) RAJESH (VTI) 1.64 (2.5-4.5 cm2) Mitral Valve MV E Max Norberto. 97.0 (40-130 cm/s) MV A Velocity 28.0 (40-130 cm/s) E/A Ratio 3.46 MV PHT 43.0 ms Left Ventricle The left ventricle is normal size. Left ventricular systolic function is normal. The left ventricular ejection fraction is within the normal range. There is increased left ventricular wall thickness. There is normal LV segmental wall motion. Transmitral Doppler flow pattern suggests impaired LV relaxation. LVEF is 55% Right Ventricle The right ventricle is moderately dilated. The right ventricular systolic function is mildly reduced. Atria Left atrium is moderately dilated. Right atrium is moderately dilated. There is no color Doppler evidence of interatrial shunt. Aortic Valve The aortic valve is mildly thickened. Mild aortic stenosis is present. RAJESH by continuity equation is 1.6 cm2. Peak velocity 2.1 m/s. Mean AV gradient 10 mmHg. Max AV gradient 17 mmHg. Trace aortic regurgitation is present. Mitral Valve The mitral valve is mildly thickened. No evidence of mitral valve stenosis. Mild mitral regurgitation is present. Tricuspid Valve The tricuspid valve leaflets are thin and pliable. Trace tricuspid regurgitation. There is insufficient TR jet to estimate RVSP. Pulmonic Valve The pulmonary valve is grossly normal in structure. Trace pulmonic valve regurgitation is present. Great Vessels The aortic root is normal in size. IVC is normal in size and collapses >50% with inspiration. Pericardium There is no pericardial effusion. Other Information Study Quality: Fair Conclusion Normal LV systolic function. Moderate RV dilation with mild reduction in RV function. Biatrial dilation. Mild (RAJESH by continuity equation is 1.6 cm2. Peak velocity 2.1 m/s. Mean AV gradient 10 mmHg. Max AV gradient 17 mmHg). Mild MR. Electronically signed by : Janett Johns MD 02/18/2025 13:55:57
--- NOTE | 2025-02-18 10:56 | HMH.PHAINT1 ---
Pharmacy Intervention Comments: MEDICATION RECONCILIATION COMPLETED ON PATIENT USING EXTERNAL FILL HISTORY FROM PHARMACY. -VIRGIL ACOSTA, SHERRYD
--- NOTE | 2025-02-18 11:06 | PC.NURSE ---
Report called to Wyatt KILLIAN
--- NOTE | 2025-02-18 11:10 | PC.NURSE ---
arrived by w/c from ED
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
[2025-02-18 12:10] LABS: Troponin I < 0.01 ng/ml (0.00-0.034)
[2025-02-18 12:28] LABS: POC Glucose,Bedside 108 gm/dL (70-110)
[2025-02-18 12:33] LABS: Thyroid Stimulating Hormone 2.88 uIU/mL (0.465-4.68)
[2025-02-18] MEDS: 0.9 % SODIUM CHLORIDE 1000ML 1,000 ML 250 ML IV (12:35)
[2025-02-18 13:57] LABS: Microscopic, Urine URINE MICROSCOPIC (MICROSCOPIC)
[2025-02-18 14:15] LABS: Bilirubin,Urine Negative (Negative); Color,Urine YELLOW (Yellow); Glucose,Urine (UA) 3+ (Negative); Ketones,Urine 1+ (Negative); Leukocyte Esterase,Urine Negative (Negative); PH,Urine 5.5 (5.0-8.5); Protein,Urine Negative (Negative); Specific Gravity, Urine 1.015 (1.005-1.030); Urobilinogen,Urine 0.2 EU/dl (0.2)
[2025-02-18 16:01] LABS: Troponin I < 0.01 ng/ml (0.00-0.034)
[2025-02-18] MEDS: FUROSEMIDE 40 MG TABLET PO (16:18)
[2025-02-18 16:26] LABS: POC Glucose,Bedside 116 gm/dL (70-110)
--- NOTE | 2025-02-18 20:00 | PC.NURSE ---
son Bruce reports he is legal POA, [phone]
[2025-02-18] MEDS: APIXABAN 5MG TABLET 2.5 MG PO (20:01)
[2025-02-18] MEDS: TAMSULOSIN 0.4MG CAPSULE 0.4 MG PO (20:01)
[2025-02-18] MEDS: GABAPENTIN 300MG CAPSULE 300 MG PO (20:01)
[2025-02-18] MEDS: ALLOPURINOL 100MG TABLET 100 MG PO (20:01)
[2025-02-18] MEDS: PRAVASTATIN 40MG TAB 80 MG PO (20:01)
[2025-02-18 20:09] LABS: POC Glucose,Bedside 136 gm/dL (70-110)
--- NOTE | 2025-02-18 20:09 | PC.NURSE ---
patient refused insulin per MAR
--- NOTE | 2025-02-18 20:12 | PC.NURSE ---
removed patient bandaid from left foot, 2nd toe - per leave open to air communication order
[2025-02-19] VITALS (7 sets, daily range): BP systolic 104–161; BP diastolic 53–81; PULSE 70–114; RESP 14–20; TEMP 36.6–36.8; O2SAT 94–96; BMI 31.9
--- NOTE | 2025-02-19 00:26 | PC.NURSE ---
0030 assuming the care of this Pt . Agree with the prior assessment. Received report from Aki KILLIAN. Pt is resting at this time. VERA MCGEE RN
[2025-02-19 06:06] LABS: POC Glucose,Bedside 136 gm/dL (70-110)
[2025-02-19] MEDS: ESCITALOPRAM 10MG TABLET 5 MG PO (08:05)
[2025-02-19] MEDS: CHOLECALCIFEROL 1,000 UNITS (25MCG) TABLET 50 MCG PO (08:05)
[2025-02-19] MEDS: ALLOPURINOL 100MG TABLET 100 MG PO ×2 (08:05→21:03)
[2025-02-19] MEDS: APIXABAN 5MG TABLET 2.5 MG PO ×2 (08:05→21:03)
[2025-02-19] MEDS: CLOPIDOGREL 75MG TAB 75 MG PO (08:06)
[2025-02-19] MEDS: EMPAGLIFLOZIN 10MG TABLET 10 MG PO (08:08)
[2025-02-19] MEDS: GABAPENTIN 300MG CAPSULE 300 MG PO ×3 (08:11→21:03)
[2025-02-19 08:22] LABS: Hematocrit 38.7 % (42.0-52.0); Hemoglobin 12.8 g/dL (14.1-18.0); Immature Granulocytes % 0.2 %; Mean Corpuscular HGB Conc 33.1 g/dL (31.8-35.4); Mean Corpuscular Hemoglobin 31.8 pg (27.0-31.2); Mean Corpuscular Volume 96.0 fl (80-94); Nucleated Red Blood Cells % 0 %; Platelet Count 210 K/mm3 (142-424); Red Blood Count 4.03 M/mm3 (4.60-6.20); Red Cell Distribution Width-SD 55.8 fL; White Blood Count 8.7 K/mm3 (4.8-10.8)
--- NOTE | 2025-02-19 08:36 | HMH.PTEV ---
Physical Therapy Evaluation Rehab PT IP Evaluation Start: 02/18/25 16:20 Freq: ONCE Status: Active Protocol: Document 02/19/25 08:26 MELISSA (Rec: 02/19/25 08:36 MELISSA [id number]) Subjective/History History History Per H&P: Mr. Palmer is a 84-year-old male who presented to the emergency department today accompanied by his son for evaluation of low blood pressure at home, along with feelings of fatigue and weakness. He has a primary medical history of insulin-dependent diabetes, neuropathy, weight loss, loss of appetite, weakness, paroxysmal atrial fibrillation, GERD, MDD, suicidal ideation, CKD stage III, metastatic prostate cancer, HFpEF, CAD, adrenal insufficiency, HLD. The patient states he took his blood pressure at home and it was reportedly low 86 systolic. Per his son a few months ago patient was having suicidal ideation and was taken to [facility] at for evaluation. At that time he was started on Wellbutrin. Patient currently denies suicidal thoughts but does endorse depression and feelings of hopelessness. He states he was on his way to see his outsole compressor for a wound on his foot but began complaining of increased weakness at that time and son felt he should be seen by the emergency department. Patient takes multiple medications for his diabetes, HFpEF, HTN, MDD but according to family they are unsure if he has been taking them accurately. Patient was worked up in the emergency department and at that time found to have orthostatic hypotension, with a drop of 40 point systolic upon standing. Additionally patient had a bedside echo performed which was suggestive of a newly decreased EF. Lab work performed showed BNP of 1570, creatinine 1.7, hemoglobin 11.9. Patient was also found to have a left second toenail avulsion which was cultured on 2024 positive for Staph hominis. At the time of evaluation patient had injured his left toe inducing loss of his left second toe toenail and small ulceration at tip of toe noted. Patient was not started on antibiotics at that time but given mupirocin ointment for home use. Podiatry assessed patient in the emergency department and recommended starting antibiotics due to slow healing, patient given clindamycin 450 mg orally in the ED. Additionally, patient has recently been worked up for bradycardia. He does have a primary medical history of paroxysmal A-fib. 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 He states his Holter monitor showed heart rates in the 30s and it was recommended he get a pacemaker placed. Patient has declined pacemaker. Cardiology evaluated patient and recommended admission for further monitoring and orthostatic hypotension. Additionally recommended gentle rehydration with 1 L normal saline. Concern for hypotension related to adrenal insufficiency. Patient has known adrenal insufficiency but it is not managed as far as the family is aware. He is not taking his prednisone 5 mg daily per son. Subjective Subjective PLOF: SBA with mobility using a SPC. Per family, pt has been having progressive weakness. HOME: Lives with his family on the ground level of his home. No RHYS home. ASSIST: Family provides 24/7 assist for past 6 weeks. [facility] How much help from another person do you currently need... Turning from your None back to your side while in a flat bed without using bedrails? Moving from lying on None back to sitting on the side of a flat bed without using bedrails? Moving to and from a None bed to a chair ( including a wheelchair)? Standing up from a None chair using your arms? (e.g., wheelchair, bedside chair) Walking in hospital A little room? Climbing 3-5 steps A little with a railing? Mobility Score 22 Mobility Level [place] [id number] Walk 25 feet or more Mobility Calculator Rehab PT IP Eval Objective Appearance Patient Behavior Appropriate,Cooperative Patient Orientation Person,Place Difficulty following none instructions Speech Pattern Clear Ambulation Patient Able to Yes Ambulate Ambulation Observation IP General Gait No Deviations/Normal Pattern Observation Ambulation Distance 30 (feet) Ambulation Assistive Straight Cane Device Ambulation Ability Contact Guard/Hand Hold,Minimal x 1 (25% assist) Balance Ability to Arise Able, uses arms to help Sitting Balance Steady, safe Standing Balance Steady, wide stance Dynamic Sitting Good Balance Ability Dynamic Standing Fair Balance Ability Transfers Bed Transfer Ability Supervision/Stand by Sit to Stand Bed Contact Guard/Hand Hold Transfer Ability Rehab PT IP prob,goals,plan Problems Date of Evaluation: 02/19/25 PT IP Problems Transfers,Gait,Balance,Self care,Safety Rehab Potential Rehab Potential Good Plan PT Intervention Plan Transfers,Gait,Balance,Self care,Safety,Therapeutic Exercise PT Plan Frequency Daily Duration Goals Met Discharge Plan PT Discharge Plan Pt most appropriate for d/c home with continued 24/7 assist from family and HH PT services. Pt would benefit from skilled PT to address deficits and prevent further functional decline. Eval Complexity Eval Charge Codes 84864 - Moderate Complexity PHYSICIAN CERTIFICATION: I certify the specified therapy services for Braeden Palmer are required, authorized, and reviewed every 30 days.
[2025-02-19 08:40] LABS: Alanine Aminotransferase 21 U/L (12-78); Albumin Level 4.4 g/dl (3.5-5.0); Albumin/Globulin Ratio 1.5 (1.1-1.8); Alkaline Phosphatase 103 U/L (38-126); Anion Gap 14.5 mEq/L (5-15); Aspartate Amino Transferase 25 U/L (17-59); Bilirubin,Total 0.8 mg/dl (0.2-1.3); Blood Urea Nitrogen 26 mg/dl (9-20); Calcium 9.4 mg/dl (8.4-10.2); Carbon Dioxide 30 mmol/L (22.0-30.0); Chloride 100 mmol/L (98-107); Creatinine Clearance Estimated 54 mL/min (50-200); Creatinine,Serum 1.50 mg/dl (0.66-1.25); Estimated Glomerular Filt Rate 44 ml/min (>60); GFR (African American) 54 ML/MIN (>60); Globulin 3.0 g/dL (1.3-3.2); Glucose 168 mg/dl (74-100); Magnesium 1.7 mg/dl (1.6-2.3); Potassium 4.5 mmoL/L (3.5-5.1); Sodium 140 mmol/L (136-145); Total Protein,Serum 7.4 g/dl (6.3-8.2)
--- NOTE | 2025-02-19 09:16 | HMH.PHAAMS2 ---
- Antimicrobial Stewardship Review culture & sensitivity review Stewardship interventions: culture & sensitivity review, reviewed - no change Comments: FOOT WOUND CX FROM 02/11 POSITIVE FOR STAPH HOMINIS, PATIENT ON CLINDAMYCIN WHICH IT WAS SENSITIVE TO, WBC WNL AT 8.7 K/mm3, AFEBRILE.
[2025-02-19] MEDS: HYDROCORTISONE SOD SUCCINATE 100MG VIAL 100 MG IV (09:24)
[2025-02-19] MEDS: MUPIROCIN 2% OINTMENT 22GM TUBE TP ×2 (09:25→21:04)
[2025-02-19] MEDS: CLINDAMYCIN 150MG CAPSULE 450 MG PO ×3 (09:25→21:03)
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
--- NOTE | 2025-02-19 09:45 | P.PN_ITS ---
<Statement entered by Lloyd Guthrie MD - 02/19/25 14:56> Rounded on patient after nurse practitioner. Personally examined and interviewed patient. Agree with exam findings and care plan as documented. Subjective *Date: 02/19/25 *Time: 13:46 Interval history: Patient sitting up in bed, eating breakfast. Son at bedside. Interactive with discussion, continues to have flat affect. ACTH and cortisol drawn this morning per endocrinology's recommendation. Patient started on hydrocortisone IV for suspected adrenal insufficiency. Remains hemodynamically stable. No episodes of hypotension or bradycardia overnight. Cardiology following. Anticipate discharge home tomorrow morning. Medical Exam Vital signs and Labs for Last 24 Hours: Vital Signs Temp Pulse Pulse Pulse Pulse Pulse Resp 02/19/25 09:00 02/19/25 08:00 90 02/19/25 07:48 02/19/25 07:38 76 91 H 114 H 02/19/25 06:54 02/19/25 05:00 02/19/25 04:00 80 02/19/25 04:00 97.8 F 72 14 02/19/25 03:00 02/19/25 01:00 02/19/25 00:00 97.9 F 81 20 02/19/25 00:00 70 02/18/25 23:00 02/18/25 20:54 02/18/25 20:00 80 02/18/25 20:00 02/18/25 19:45 97.7 F 68 16 02/18/25 18:41 02/18/25 17:11 02/18/25 16:00 70 02/18/25 16:00 97.7 F 68 17 02/18/25 13:00 02/18/25 12:00 60 02/18/25 11:30 02/18/25 11:17 97.8 F 72 16 02/18/25 11:07 98.5 F 65 18 02/18/25 11:00 02/18/25 10:01 64 17 BP BP BP BP BP Pulse Ox O2 Del Method 02/19/25 09:00 Room Air 02/19/25 08:00 02/19/25 07:48 Room Air 02/19/25 07:38 130/60 104/62 L 111/53 L 02/19/25 06:54 Room Air 02/19/25 05:00 Room Air 02/19/25 04:00 12/23/25 04:00 148/81 H 94 L Room Air 02/19/25 03:00 Room Air 02/19/25 01:00 Room Air 02/19/25 00:00 138/76 94 L Room Air 02/19/25 00:00 02/18/25 23:00 Room Air 02/18/25 20:54 Room Air 02/18/25 20:00 02/18/25 20:00 Room Air 02/18/25 19:45 136/73 96 Room Air 02/18/25 18:41 Room Air 02/18/25 17:11 Room Air 02/18/25 16:00 02/18/25 16:00 145/86 H 95 Room Air 02/18/25 13:00 Room Air 02/18/25 12:00 02/18/25 11:30 Room Air 02/18/25 11:17 153/80 H 95 Room Air 02/18/25 11:07 139/78 Room Air 02/18/25 11:00 Room Air 02/18/25 10:01 138/99 H 97 Room Air Intake and Output 02/18/25 02/19/25 02/19/25 23:59 07:59 15:59 Intake Total 1120 / 1490 250 / 370 120 / 370 Output Total 0 / 300 0 / 0 Balance 1120 / 1190 250 / 370 120 / 370 Intake: Intake, Oral Amount 120 / 490 250 / 370 120 / 370 Intake, Total IV Amount 1000 / 1000 0.9 % Sodium Chloride 1000ML 1, 1000 / 1000 000 ml @ 250 mls/hr IV .Q4H [facility] Rx#:[id number] Output: Output, Urine Amount 0 / 300 0 / 0 Other: Number of Unmeasured Voids 1 1 Number of Bowel Movements 1 Weight 107.048 kg 107.048 kg Patient Weight 02/19/25 23:59 Weight 107.048 kg Laboratory Results - last 24 hr 02/18/25 08:35: TSH 2.88 02/18/25 11:39: Troponin I < 0.01 02/18/25 12:21: POC Glucose 108 02/18/25 13:36: Urine Color Yellow, Urine Appearance Clear, Urine pH 5.5, Ur Specific [place] 1.015, Urine Protein Negative, Urine Glucose (UA) 3+, Urine Ketones 1+, Urine Blood 1+ A, Urine Nitrate Negative, Urine Bilirubin Negative, Urine Urobilinogen 0.2, Ur Leukocyte Esterase Negative, Urine RBC None, Urine WBC None, Ur Squamous Epith Cells None, Urine Bacteria None 02/18/25 15:23: Troponin I < 0.01 02/18/25 16:16: POC Glucose 116 H 02/18/25 19:58: POC Glucose 136 H 02/19/25 05:56: POC Glucose 136 H 02/19/25 08:12: WBC 8.7, RBC 4.03 L, Hgb 12.8 L, Hct 38.7 L, MCV 96.0 H, MCH 31.8 H, MCHC 33.1, RDW 15.7, Plt Count 210, MPV 10.0, Neut % (Auto) 65.2, Lymph % (Auto) 23.9, [place] % (Auto) 8.9, Eos % (Auto) 1.5, Baso % (Auto) 0.3, Neut # (Auto) 5.7, Lymph # (Auto) 2.1, [place] # (Auto) 0.8, Eos # (Auto) 0.1, Baso # (Auto) 0.0, Sodium 140, Potassium 4.5, Chloride 100, Carbon Dioxide 30, Anion Gap 14.5, BUN 26 H, Creatinine 1.50 H, Estimated Creat Clear 54, Estimated GFR 44 L, Est GFR ( Amer) 54 L, Glucose 168 H D, Calcium 9.4, Magnesium 1.7 D, Total Bilirubin 0.8, AST 25, ALT 21, Alkaline Phosphatase 103, Total Protein 7.4, Albumin 4.4, Globulin 3.0, Albumin/Globulin Ratio 1.5 I & O for Labs for Last 24 Hours: Intake & Output 02/16/25 02/17/25 02/18/25 02/19/25 23:59 23:59 23:59 23:59 Intake Total 1240 / 1490 370 / 370 Output Total 300 / 300 0 / 0 Balance 940 / 1190 370 / 370 Weight 107.501 kg 107.048 kg Constitutional: Present no acute distress, obese, cooperative and somnolent Head: Present atraumatic Eyes: Present as per HPI ENT: Present normal exam Neck: Present normal inspection; Absent lymphadenopathy Respiratory: Present CTA bilaterally, able to speak in complete sentences and symmetric chest movement; Absent wheezes or crackles Cardiac: Present Regular Rate; Absent No Murmur Comment:: Irregular rhythm, A-fib GI: Present soft and normal bowel sounds; Absent distention or tenderness Rectal (male): Present deferred (male): Present deferred Extremities: Present normal inspection; Absent tenderness or edema Skin: Present intact, dry and warm; Absent erythema or rash Neuro: Present alert, awake, oriented x 3 and moves all extremities Assessment and Plan *Assessment and plan (1) Orthostasis: Status: Acute Category: Medical Code(s): I95.1 - Orthostatic hypotension (2) Heart failure with preserved ejection fraction: Status: Chronic Category: Medical Code(s): I50.30 - Unspecified diastolic (congestive) heart failure (3) Atrial fibrillation: Status: Chronic Qualifiers: Atrial fibrillation type: persistent (not longstanding) Qualified Code(s): I48.19 - Other persistent atrial fibrillation Category: Medical Code(s): I48.91 - Unspecified atrial fibrillation (4) Adrenal insufficiency: Status: Acute Category: Medical Code(s): E27.40 - Unspecified adrenocortical insufficiency (5) Type 2 diabetes mellitus with diabetic polyneuropathy, with long-term current use of insulin: Status: Chronic Category: Medical Code(s): E11.42 - Type 2 diabetes mellitus with diabetic polyneuropathy; Z79.4 - detention (current) use of insulin (6) Diabetic ulcer of toe of left foot: Status: Acute Qualifiers: Diabetes mellitus type: type 2 Non-pressure ulcer stage: limited to breakdown of skin Qualified Code(s): E11.621 - Type 2 diabetes mellitus with foot ulcer; L97.521 - Non-pressure chronic ulcer of other part of left foot limited to breakdown of skin Category: Medical Code(s): E11.621 - Type 2 diabetes mellitus with foot ulcer; L97.529 - Non-pressure chronic ulcer of other part of left foot with unspecified severity (7) Wound, open, foot: Status: Acute Qualifiers: Encounter type: sequela Laterality: left Qualified Code(s): S91.302S - Unspecified open wound, left foot, sequela Category: Medical Code(s): S91.309A - Unspecified open wound, unspecified foot, initial encounter (8) Depression: Status: Acute Category: Medical Code(s): F32.A - Depression, unspecified (9) Major depressive disorder: Status: Chronic Category: Medical Code(s): F32.9 - Major depressive disorder, single episode, unspecified (10) CAD (coronary artery disease): Status: Chronic Qualifiers: Associated angina: without angina Coronary Disease-Associated Artery/Lesion type: [place] artery [place] vs. transplanted heart: [place] heart Qualified Code(s): I25.10 - Atherosclerotic heart disease of [place] coronary artery without angina pectoris Category: Medical Code(s): I25.10 - Atherosclerotic heart disease of [place] coronary artery without angina pectoris (11) Chronic kidney disease, stage III (moderate): Status: Chronic Qualifiers: Chronic kidney disease stage 3 subtype: unspecified whether 3a or 3b Qualified Code(s): N18.30 - Chronic kidney disease, stage 3 unspecified Category: Medical Code(s): N18.30 - Chronic kidney disease, stage 3 unspecified (12) Severe protein-calorie malnutrition: Status: Acute Category: Medical Code(s): E43 - Unspecified severe protein-calorie malnutrition Plan Mr. Palmer is a 84-year-old male who was admitted to the medical surgical floor for orthostatic hypotension, complicated by depression with recent suicidal ideation and possible adrenal insufficiency. Additionally was noted to possibly have reduced EF on bedside echo in the ED, formal echo obtained shows LVEF of 55%, no change from previous echo. Patient also noted to have a left second toe avulsion of nail plate with diabetic ulcer previously assessed outpatient with podiatry. Cardiology, endocrinology, cardiology all consulted. Hospital medicine was consulted from the emergency department for admission for further management of patient's multiple needs, I agreed to admit the patient. Plan of care as follows: #Orthostatic hypotension #HFpEF #Paroxysmal A-fib with sick sinus syndrome ?Patient was noted to have postural hypotension in the emergency department, drop in systolic by 40 points when standing. Patient sees Dr. Jackson and Dr. Hollins in [place] for his cardiac care. Patient states that he recently wore a heart monitor and showed his heart rate going into the 30s. It was recommended that patient get a pacemaker placed for significant bradycardia, at which time patient declined any intervention. ?Repeated orthostatics improved after 1 L fluid yesterday. Patient had no episodes of hypotension or bradycardia overnight. Remains in rate controlled atrial fibrillation. ?Cardiology consulted for further recommendations, patient placed on continuous cardiac telemetry, will continue cardiac medications of Eliquis 2.5 mg twice daily, Plavix 75 mg daily, Jardiance 10 mg daily, simvastatin 40 mg at bedtime. Currently holding carvedilol 3.125 twice daily due to hypotension/history of bradycardia. Patient takes Lasix 40 mg as needed at home, when discussed with patient he states he rarely if ever takes his Lasix. Patient given 1 dose Lasix 40 mg yesterday, edema significantly improved bilateral lower extremities. Lungs CTA. Patient appears euvolemic at this time. Cardiology starting midodrine 3 times daily for postural/orthostatic hypotension. ?Echo repeated today shows normal EF of 55%. Per patient he has a history of heart cath with TELLO, unknown year. ?Lab work overall reassuring, CBC, CMP, magnesium ordered for the a.m. #Adrenal insufficiency #Generalized weakness ? Patient and family state he sees an mental health nurse, Dr. Duran for his thyroid. Unsure if he has been tested for adrenal issues. Upon chart review he appears to have a history of adrenal insufficiency, treated with prednisone 5 mg daily. Per patient's son he does not believe patient has been taking his prednisone daily, unsure when he last had it. Patient had a.m. cortisol level drawn in August 2024 which was low at that time of 3.4. Discussed case with Dr. King, mental health nurse, who is not in the office this week but recommended obtaining a.m. cortisol and ACTH lab tomorrow morning at 7 AM. These labs were obtained this morning, they are send out and will be back in 1 to 2 days. Patient was initiated on hydrocortisone 100 mg IV x 1, then continuing with hydrocortisone 50 mg IV every 8 hours. Will continue to evaluate. ? Patient and family endorse patient has been increasingly globally weak, fatigued, uninterested. When discussed patient has a very flat affect, and reports his health is no longer fixable. Patient slightly more interactive today, discussed behavioral health seeing patient but patient was recently seen and started on Wellbutrin on Tuesday, will continue new medications. PT/OT evaluated patient as well, recommend home health but report patient is at baseline for ADLs. #Diabetic foot ulcer, LLE, second toe ? Podiatry evaluated, recommending clindamycin 450 mg every 8 hours orally x 1 week for left second toe diabetic foot ulcer. Patient endorses neuropathy, no pain reported. Additionally will add mupirocin twice daily to affected area, keeping clean dry and open to air. #Insulin-dependent diabetes mellitus ? Patient A1c in August 6.7%. Patient states that he takes Novolin and doses it pending his blood sugar. He states he has a history of hypoglycemia and does not want to take his Novolin if we will be doing sliding scale. Discontinue Novolin at this time. Continue with ACHS fingersticks, sliding scale insulin. Repeat A1c pending. #Prostate cancer ? 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 Patient states he has not had any more issues since that time, sees urologist regularly. CT abdomen/pelvis here in September was normal. #Major depressive disorder #Suicidal ideation ? Per patient's family he has been increasingly depressed over the past 1 to 2 months since his brother's passing. Patient normally lives independently at home but family has been staying with him due to increased suicidal ideation. Patient was recently admitted to [facility] at and started on Wellbutrin. Currently denies suicidal ideation but does endorse feelings of depression and hopelessness. ?Continue Wellbutrin 100 mg extended release daily and escitalopram 5 mg daily. #CKD, stage III: Patient has chronic kidney disease baseline creatinine around 2.0. Creatinine improved after fluids to 1.5. Continue to monitor daily. #Severe protein calorie malnutrition: Patient meets criteria for SPCM due to recent 40 pound weight loss. Patient states he has been uninterested in food and has had a poor appetite. Patient has seen GI and recently had a scope for he was diagnosed with bile reflux. Patient has home medication to take with foods (sacrosidase) but endorses rarely taking medication. Nutrition consulted for diet recommendations. BMI 32. Full code Ambulate as tolerated VTE?Eliquis Diabetic diet
[2025-02-19] MEDS: humaLOG 100 UNITS/ML 10ML VIAL (SSI) SUBCUT ×3 (10:35→21:03)
[2025-02-19 10:40] LABS: POC Glucose,Bedside 175 gm/dL (70-110)
[2025-02-19 10:45] LABS: Hemoglobin A1C 7.4 % (4.0-6.0)
--- OUTSIDE RECORDS SUMMARY | 2025-02-19 12:08 | XMS_ITS | Encounter Summary ---
Author Organization [facility] ([place], [place], [place], [place], [place]) Address [address] [place] [address] Care Team Providers Care Latex Ribbon Machine Operator Name Role Phone Christopher Yadav MD Primary Care Provider [phone] Encounter Details Date Type Department Care Team [...] as of this encounter Functional Status * Communicable Disease Screening Question Answer Date of Assessment Author Have you been in contact wit h someone who was sick? No / Unsure 12/26/2024 2:24 PM CDT Nina Aggarwal MA Do you have any of the follo wing new or worsening symptoms? None of these 12/26/2024 2:24 PM CDT Lucita Aggarwal MA * Are you deaf or do you [...] Description 03/27/2025 3:00 PM EST Office Visit [facility] - [address] [place] [address] Arnol Courtney MD [address] [facility] [address] [place] [address] documented as of this encounter Visit Diagnoses Not on filedocumented in this encounter Care Teams Latex Ribbon Machine Operator Relationship Specialty Start Date End Date Christopher Yadav MD [address] [place] [address] [place] [address] PCP - General General Internal Medicine 03/15/23 documented as of this encounter
--- OUTSIDE RECORDS SUMMARY | 2025-02-19 12:08 | XMS_ITS | Encounter Summary ---
Author Organization Healthcare Address [address] [place] [address] Care Team Providers Care Court Orderly Name Role Phone Christopher Yadav MD Primary Care Provider [phone] Encounter Details Date Type Department Care Team (Late st Contact Info) Description 2023 Lab Requisition [facility] [address] [place] [address] Jamil Maynard MD [address] [facility] [address] [place] [address] Elevated prostate specific antigen (PSA) Social History [...] EDT) Case Report Sug[facility] Pathology Consult Case: [id number] Authorizing Provider: Jamil Maynard MD Collected: 2023 1312 Ordering Location: [facility] Lab Received: 2023 1312 Pathologist: Donna Villalobos MD Specimen: Prostate, [id number] 08/25/2023 10:39 AM EDT [facility] Final Diagnosis PROSTATE, NEEDLE CORE BIOPSIES (REVIEW OF OUTSIDE SLIDES LABELED SM [id number], PROCEDURE DATE 08/16/2023). A. PROSTATE, RIGHT POSTERIOR [...] OF 1 CORE. 08/25/2023 10:39 AM EDT [facility] at 1038 EDT Comment Perineural invasion is identified. Cribriform pattern 4 is also seen. 08/25/2023 10:39 AM EDT [facility] Clinical Information R97.20 - Elevated prostate specific antigen (PSA) [ICD-10-CM] 08/25/2023 10:39 AM EDT [facility] Gross Description A. [id number] Received along with a corresponding pathology report from [facility] are 8 slides labeled outside case: [id number] collected on 08/16/2023. 08/25/2023 10:39 AM EDT [facility] Intradepartmental Consultation with Agreement Kely Ghotra MD 08/25/2023 10:39 AM EDT [facility] Tissue Prostate / Unknown 1:12 PM EDT 2023 1:12 PM EDT us Jamil Maynard MD LAB PATHOLOGY ORDERABLES [facility] [address] [place] [address] documented in this encounter Visit Diagnoses Diagnosis Elevated prostate specific antigen (PSA) documented in this encounter Care Teams Court Orderly Relationship Specialty Start Date End Date Christopher Yadav MD [address] [place], [place] [address] [address] [place] [address] PCP - General 07/11/20 documented as of this encounter
--- OUTSIDE RECORDS SUMMARY | 2025-02-19 12:08 | XMS_ITS | Encounter Summary ---
Author Organization Healthcare Address [address] [place] [address] Care Team Providers Care Piano Teacher Name Role Phone Christopher Yadav MD Primary Care Provider [phone] Encounter Details Date Type Department Care Team (Late st Contact Info) Description 07/27/2023 Orders Only External Location [address] [place] [address] Provider, External Social History Tobacco Use Types [...] on filedocumented in this encounter Care Teams Piano Teacher Relationship Specialty Start Date End Date Christopher Yadav MD [address] [facility] [address] [place] [id number] PCP - General 07/11/20 documented as of this encounter
--- OUTSIDE RECORDS SUMMARY | 2025-02-19 12:08 | XMS_ITS | Clinical Summary ---
Author Organization [employer] ([place], [place], [place], [place], [place]) Address [address] [place] [address] Care Team Providers Care Telephone Information Clerk Name Role Phone Christopher Yadav MD Primary Care Provider [phone] Allergies No known active allergies Medications insulin [...] Description 12/26/2024 2:35 PM EDT Office Visit [facility] - [address] [phone] Arnol Courtney MD Prostate cancer (HCC) (Primary [...] Date Ehsan rded Speak language other than Haitian at home Not on file 03/11/2023 Want [...] Description 03/27/2025 3:00 PM EST Office Visit [facility] - [address] [place] [address] Arnol Courtney MD [address] [facility] [address] [place] [address] Health Maintenance Due Date Last [...] 12/03/2015, 03/14/2013 Medical Devices Implanted Type Area Hazmat Technician Device Identifier Shelf Expiration Date Model / Serial / Lot Stents-Machado ry Stents-Coron maribel Heart Head Fem Delta 36mm +0mm - [id number] Implanted:Qty : 1 on 03/21/2023 by Eric Parkinson MD at [facility] TOTAL JOINT CONSTRUCT Left: Hip EXACTECH [id number] 05/31/202736 / [id number] / Stem Fem Pf Sz9 113mm 190-31-09 - [id number] Implanted:Qty : 1 on 03/21/2023 by Eric Parkinson MD at [facility] TOTAL JOINT CONSTRUCT Left: Hip EXACTECH [id number] 10/03/2027 190-31-09 / [id number] / Liner Ntrl Altn Xle Grp6 36mm 6 - [id number] Implanted:Qty : 1 on 03/21/2023 by Eric Parkinson MD at [facility] TOTAL JOINT CONSTRUCT Left: Hip EXACTECH [id number] 03/17/2027 / [id number] / Cup Clstr-Hole Altn Pcg6 54mm 71-498-63 4 - [id number] Implanted:Qty : 1 on 03/21/2023 by Eric Parkinson MD at [facility] TOTAL JOINT CONSTRUCT Left: Hip EXACTECH [id number] 10/25/203254 / [id number] / Procedures Procedure Name Priority Date/Time Associated [...] 10.8 K/ L 12/06/2024 10:47 AM EDT [facility] RBC 3.15(L) 3.80 - 5.20 M/ L 12/06/2024 10:47 AM EDT [facility] Hemoglobin 10.4(L) 12.8 - 17.4 GM/DL 12/06/2024 10:47 AM EDT [facility] Hematocrit 32.4(L) 39.0 - 51.0 % 12/06/2024 10:47 AM EDT [facility] MCV 103(H) 81 - 101 fL 12/06/2024 10:47 AM EDT [facility] MCH 33.0 27.0 - 34.0 pg 12/06/2024 10:47 AM EDT [facility] MCHC 32.1 32.0 - 36.0 GM/DL 12/06/2024 10:47 AM EDT [facility] RDW 15.4(H) 11.5 - 14.5 % 12/06/2024 10:47 AM EDT [facility] Platelets 176 150 - 400 K/CU MM 12/06/2024 10:47 AM EDT [facility] MPV 10.2 9.4 - 12.4 fL 12/06/2024 10:47 AM EDT [facility] Nucleated Red Blood Cell 0.0 0 - 0.2 % 12/06/2024 10:47 AM EDT [facility] % Neutros 71 37 - 80 % 12/06/2024 10:47 AM EDT [facility] % Lymphs 19 10 - 50 % 12/06/2024 10:47 AM EDT [facility] % Monos 9 5 - 13 % 12/06/2024 10:47 AM EDT [facility] % Eos 1 0 - 7 % 12/06/2024 10:47 AM EDT [facility] % Baso 0 0 - 3 % 12/06/2024 10:47 AM EDT [facility] NRBC Absolute <0.01 0 - 0.012 K/ul 12/06/2024 10:47 AM EDT [facility] # Neutros 5.50 2.00 - 6.90 K/ L 12/06/2024 10:47 AM EDT [facility] # Lymphs 1.50 0.60 - 3.40 K/ L 12/06/2024 10:47 AM EDT [facility] # Monos 0.67 0.00 - 0.90 K/ L 12/06/2024 10:47 AM EDT [facility] # Eos 0.06 0.00 - 0.70 K/ L 12/06/2024 10:47 AM EDT [facility] # Baso 0.02 0.00 - 0.20 K/ L 12/06/2024 10:47 AM EDT [facility] % Imm Grans 0.30 % 12/06/2024 10:47 AM EDT [facility] # IG 0.02(H) 0.00 - 0.00 K/uL 12/06/2024 10:47 AM EDT [facility] Blood Venipuncture / Unknown 12/06/2024 10:35 AM EDT 12/06/2024 10:44 AM EDT Narrative [facility] - 12/06/2024 10:47 AM [...] MD LAB BLOOD ORDERABLES Final Res ult [facility] [address] [place] [address] * (ABNORMAL) Testosterone, Adult Male(SENDOUT) (12/06/2024 10:35 AM EDT) Testosterone by Immunoassay <3(L) 300 - 720 ng/dL 12/07/2024 10:36 PM EDT [facility] Comment: INTERPRETIVE INFORMATION: Testosterone by Immunoassay Testosterone immunoassays are both imprecise and inaccurate at low testosterone concentrations, such as those found in children and cisgender females. For these individuals, testing by mass spectrometry is recommended; refer to Testosterone (Adult Females, Children, or Individuals on Testosterone-Suppressing Hormone Therapy) ([employer] test code [id number]). Free or bioavailable testosterone measurements may provide supportive information. For individuals on testosterone hormone therapy, refer to cisgender male reference intervals. No reference intervals have been established for males younger than 14 years or for cisgender females. For a complete set of all established reference intervals, refer to [email or web address]. Performed By: [employer] [address] [place] [id number] Marketing Consultant: Cameron Javier MD, PhD CLIA Number: [id number] Blood Venipuncture / Unknown 12/06/2024 10:35 AM EDT 12/06/2024 10:44 AM EDT Xochitl Serra MD LAB BLOOD ORDERABLES Final Res ult Performing Organization Address City/[facility]/ZIP Co de Phone Number [facility] [address] [place], [place] [id number], [facility] [phone] * PSA (Blazer, LUCIA, [place], [place], [facility]) (12/06/2024 10:35 AM EDT) PSA Diagnostic <0.10 0.00 - 4.00 ng/mL 12/06/2024 3:[address] [facility] Comment:[place] Alinity i sarah miluminescent immunoassay was used to obtain results. Results determined by assays using different manufacturers or methods may not be comparable. Blood Venipuncture / Unknown 12/06/2024 10:35 AM EDT 12/06/2024 10:44 AM EDT Xochitl Serra MD LAB BLOOD ORDERABLES Final Res ult [facility] [address] [place] [address], [facility] [phone] * (ABNORMAL) CMP (12/06/2024 10:35 AM EDT) Sodium 142 136 - 145 meq/L 12/06/2024 11:25 AM EDT [facility] Potassium 4.3 3.5 - 5.1 meq/L 12/06/2024 11:25 AM EDT [facility] Chloride 102 98 - 107 meq/L 12/06/2024 11:25 AM EDT [facility] CO2 32 21 - 32 meq/L 12/06/2024 11:25 AM EDT [facility] Calcium 8.6 8.5 - 10.1 mg/dL 12/06/2024 11:25 AM EDT [facility] Glucose 157(H) 74 - 100 mg/dL 12/06/2024 11:25 AM EDT [facility] BUN 32(H) 7 - 18 mg/dL 12/06/2024 11:25 AM EDT [facility] Creatinine 2.09(H) 0.70 - 1.20 mg/dL 12/06/2024 11:25 AM EDT [facility] BUN/Creatinine 15 12/06/2024 11:25 AM EDT [facility] Albumin 3.4 3.4 - 5.0 g/dL 12/06/2024 11:25 AM EDT [facility] Alkaline Phosphatase 96 46 - 116 U/L 12/06/2024 11:25 AM EDT [facility] ALT 10(L) 12 - 78 U/L 12/06/2024 11:25 AM EDT [facility] AST 11(L) 15 - 37 U/L 12/06/2024 11:25 AM EDT [facility] Total Bilirubin 0.5 0.2 - 1.0 mg/dL 12/06/2024 11:25 AM EDT [facility] Protein, Total 6.9 6.4 - 8.2 gm/dL 12/06/2024 11:25 AM EDT [facility] Anion Gap 12 11 - 22 12/06/2024 11:25 AM EDT [facility] A/G Ratio 1.0 12/06/2024 11:25 AM EDT [facility] Globulin 3.5 g/dL 12/06/2024 11:25 AM EDT [facility] Osmolality Calc 293.3 mOsm/kg 11:25 AM EDT [facility] eGFR (mL/min/1.73m2) 30(L) >=60 mL/min/1.7 3m2 12/06/2024 11:25 AM EDT [facility] Comment:ESTIMATED GFR IS NOT ACCURATE CREATININE CLEARANCE IN PREDICTING GLOMERULAR FILTRATION RATE. ESTIMATED GFR IS NOT APPLICABLE FOR DIALYSIS PATIENTS. Blood Venipuncture / Unknown 12/06/2024 10:35 AM EDT 12/06/2024 10:44 AM EDT us Xochitl Serra MD LAB BLOOD ORDERABLES Final Res ult Performing Organization Address [facility] Co de Phone Number [facility] [address] [phone] * (ABNORMAL) Hemoglobin A1c (03/15/2023 11:20 AM EST) Hemoglobin A1C 6.5(H) 4.2 - 6.3 % 03/15/2023 12:24 PM EST [facility] Comment: Hemoglobin A1C levels are related to mean glucose during the preceding 2-3 months. Less than 7% demonstrates glycemic control in diabetic patients. Hemoglobin AlC % Suggested Diagnosis > or = 6.5 Diabetic 5.7 - 6.4 Prediabetic <5.7 Non-diabetic eAVG Glucose 139.85 mg/dL 03/15/2023 12:24 PM EST [facility] Blood Venipuncture / Unknown 03/15/2023 11:20 AM EST 03/15/2023 11:35 AM EST us Eric Parkinson MD LAB BLOOD ORDERABLES Fi nal Result [facility] [address] [place], [place] [id number] [place] [address] from Last 3 Months or Most Recently Relevant to Health Maintenance Insurance [place]IC[place] [address] [place] [address] SUPP Advance Directives For more information, please contact: [phone] * Full Code (Latest Code Status on File) Date Activated Date Inactivated Comments 08/16/2023 10:48 AM 08/16/2023 7:35 PM * Full Code Date Activated Date Inactivated Comments 03/21/2023 11:25 AM 03/24/2023 3:00 PM * Full Code Date Activated Date Inactivated Comments 03/21/2023 5:18 AM 03/21/2023 11:25 AM Care Teams Telephone Information Clerk Relationship Specialty Start Date End Date Christopher Yadav MD [address] [place] [phone] PCP - General General Internal Medicine 03/15/23
--- OUTSIDE RECORDS SUMMARY | 2025-02-19 12:08 | XMS_ITS | Encounter Summary ---
Author Organization Healthcare Address [address] [place] [address] Care Team Providers Care Adding Machine Operator Name Role Phone Christopher Yadav MD Primary Care Provider [phone] Encounter Details Date Type Department Care Team (Late st Contact Info) Description 07/27/2023 Orders Only External Location [address] [place] [address] Provider, External Social History Tobacco Use Types [...] on filedocumented in this encounter Care Teams Adding Machine Operator Relationship Specialty Start Date End Date Christopher Yadav MD [address] [facility] [address] [place] [address] PCP - General 07/11/20 documented as of this encounter
--- OUTSIDE RECORDS SUMMARY | 2025-02-19 12:08 | XMS_ITS | Referral Summary ---
Author Organization [employer] ([place], [place], [place], [place], [place]) Address [address] [place] [address] Care Team Providers Care Pit Furnace Melter Name Role Phone Christopher Yadav MD Primary Care Provider [phone] Encounters Date Type Department Care Team Description 12/26/2024 Travel 12/26/2024 2:35 PM EDT Office Visit [facility] - [address] [address] Arnol Courtney MD Prostate cancer [...] Date Ehsan rded Speak language other than Kazakh at home Not on file 03/11/2023 Want [...] Description 03/27/2025 3:00 PM EST Office Visit [facility] - [address] [place] [address] Arnol Courtney MD [address] [address] Medical Devices Implanted Type Area Natural Fabricator Device Identifier Shelf Expiration Date Model / Serial / Lot Stents-Machado ry Stents-Coron maribel Heart Head Fem Delta 36mm +0mm - [id number] Implanted:Qty : 1 on 03/21/2023 by Eric Parkinson MD at [facility] TOTAL JOINT CONSTRUCT Left: Hip EXACTECH [id number] 05/31/202736 / [id number] / Stem Fem Pf Sz9 113mm 190-31-09 - [id number] Implanted:Qty : 1 on 03/21/2023 by Eric Parkinson MD at [facility] TOTAL JOINT CONSTRUCT Left: Hip EXACTECH [id number] 10/03/2027 190 / [id number] / Liner Ntrl Altn Xle Grp6 36mm 6 - [id number] Implanted:Qty : 1 on 03/21/2023 by Eric Parkinson MD at [facility] TOTAL JOINT CONSTRUCT Left: Hip EXACTECH [id number] 03/17/2027 / [id number] / Cup Clstr-Hole Altn Pcg6 54mm 71-747-47 4 - [id number] Implanted:Qty : 1 on 03/21/2023 by Eric Parkinson MD at [facility] TOTAL JOINT CONSTRUCT Left: Hip EXACTECH [id number] 10/25/203254 / [id number] / Procedures Procedure Name Priority Date/Time Associated [...] 10.8 K/ L 12/06/2024 10:47 AM EDT [facility] RBC 3.15(L) 3.80 - 5.20 M/ L 12/06/2024 10:47 AM EDT [facility] Hemoglobin 10.4(L) 12.8 - 17.4 GM/DL 12/06/2024 10:47 AM EDT [facility] Hematocrit 32.4(L) 39.0 - 51.0 % 12/06/2024 10:47 AM EDT [facility] MCV 103(H) 81 - 101 fL 12/06/2024 10:47 AM EDT [facility] MCH 33.0 27.0 - 34.0 pg 12/06/2024 10:47 AM EDT [facility] MCHC 32.1 32.0 - 36.0 GM/DL 12/06/2024 10:47 AM EDT [facility] RDW 15.4(H) 11.5 - 14.5 % 12/06/2024 10:47 AM EDT [facility] Platelets 176 150 - 400 K/CU MM 12/06/2024 10:47 AM EDT [facility] MPV 10.2 9.4 - 12.4 fL 12/06/2024 10:47 AM EDT [facility] Nucleated Red Blood Cell 0.0 0 - 0.2 % 12/06/2024 10:47 AM EDT [facility] % Neutros 71 37 - 80 % 12/06/2024 10:47 AM EDT [facility] % Lymphs 19 10 - 50 % 12/06/2024 10:47 AM EDT [facility] % Monos 9 5 - 13 % 12/06/2024 10:47 AM EDT [facility] % Eos 1 0 - 7 % 12/06/2024 10:47 AM EDT [facility] % Baso 0 0 - 3 % 12/06/2024 10:47 AM EDT [facility] NRBC Absolute <0.01 0 - 0.012 K/ul 12/06/2024 10:47 AM EDT [facility] # Neutros 5.50 2.00 - 6.90 K/ L 12/06/2024 10:47 AM EDT [facility] # Lymphs 1.50 0.60 - 3.40 K/ L 12/06/2024 10:47 AM EDT [facility] # Monos 0.67 0.00 - 0.90 K/ L 12/06/2024 10:47 AM EDT [facility] # Eos 0.06 0.00 - 0.70 K/ L 12/06/2024 10:47 AM EDT [facility] # Baso 0.02 0.00 - 0.20 K/ L 12/06/2024 10:47 AM EDT [facility] % Imm Grans 0.30 % 12/06/2024 10:47 AM EDT [facility] # IG 0.02(H) 0.00 - 0.00 K/uL 12/06/2024 10:47 AM EDT [facility] Blood Venipuncture / Unknown 12/06/2024 10:35 AM EDT 12/06/2024 10:44 AM EDT Narrative [facility] - 12/06/2024 10:47 AM EDT [...] ORDERABLES Final Res ult [facility] [address] [place] [address] * (ABNORMAL) Testosterone, Adult Male(SENDOUT) (12/06/2024 10:35 AM EDT) Testosterone by Immunoassay <3(L) 300 - 720 ng/dL 12/07/2024 10:36 PM EDT [facility] Comment: INTERPRETIVE INFORMATION: Testosterone by Immunoassay Testosterone immunoassays are both imprecise and inaccurate at low testosterone concentrations, such as those found in children and cisgender females. For these individuals, testing by mass spectrometry is recommended; refer to Testosterone (Adult Females, Children, or Individuals on Testosterone-Suppressing Hormone Therapy) ([employer] test code [id number]). Free or bioavailable testosterone measurements may provide supportive information. For individuals on testosterone hormone therapy, refer to cisgender male reference intervals. No reference intervals have been established for males younger than 14 years or for cisgender females. For a complete set of all established reference intervals, refer to [email or web address]/Tests/Pub/[id number]. Performed By: [employer] [address] [place] [address] Radiophone Operator: Cameron Javier MD, PhD CLIA Number: [id number] Blood Venipuncture / Unknown 12/06/2024 10:35 AM EDT 12/06/2024 10:44 AM EDT Xochitl Serra MD LAB BLOOD ORDERABLES Final Res ult Performing Organization Address [facility] Co de Phone Number [employer] [address] [place] [address], [facility] [phone] * PSA (Blazer, LUCIA, [place], [place], [facility]) (12/06/2024 10:35 AM EDT) Pathologist [facility] PSA Diagnostic <0.10 0.00 - 4.00 ng/mL 12/06/2024 3:02 PM EDT [facility] Comment:[place] Alinity i sarah miluminescent immunoassay was used to obtain results. Results determined by assays using different manufacturers or methods may not be comparable. Blood Venipuncture / Unknown 12/06/2024 10:35 AM EDT 12/06/2024 10:44 AM EDT Xochitl Serra MD LAB BLOOD ORDERABLES Final Res ult Performing Organization Address City/[facility]/ZIP Co de Phone Number [facility] [address] [phone] * (ABNORMAL) CMP (12/06/2024 10:35 AM EDT) Pathologist [facility] Sodium 142 136 - 145 meq/L 12/06/2024 11:25 AM EDT [facility] Potassium 4.3 3.5 - 5.1 meq/L 12/06/2024 11:25 AM EDT [facility] Chloride 102 98 - 107 meq/L 12/06/2024 11:25 AM EDT [facility] CO2 32 21 - 32 meq/L 12/06/2024 11:25 AM EDT [facility] Calcium 8.6 8.5 - 10.1 mg/dL 12/06/2024 11:25 AM EDT [facility] Glucose 157(H) 74 - 100 mg/dL 12/06/2024 11:25 AM EDT [facility] BUN 32(H) 7 - 18 mg/dL 12/06/2024 11:25 AM EDT [facility] Creatinine 2.09(H) 0.70 - 1.20 mg/dL 12/06/2024 11:25 AM EDT [facility] BUN/Creatinine 15 12/06/2024 11:25 AM EDT [facility] Albumin 3.4 3.4 - 5.0 g/dL 12/06/2024 11:25 AM EDT [facility] Alkaline Phosphatase 96 46 - 116 U/L 12/06/2024 11:25 AM EDT [facility] ALT 10(L) 12 - 78 U/L 12/06/2024 11:25 AM EDT [facility] AST 11(L) 15 - 37 U/L 12/06/2024 11:25 AM EDT [facility] Total Bilirubin 0.5 0.2 - 1.0 mg/dL 12/06/2024 11:25 AM EDT [facility] Protein, Total 6.9 6.4 - 8.2 gm/dL 12/06/2024 11:25 AM EDT [facility] Anion Gap 12 11 - 22 12/06/2024 11:25 AM EDT [facility] A/G Ratio 1.0 12/06/2024 11:25 AM EDT [facility] Globulin 3.5 g/dL 12/06/2024 11:25 AM EDT [facility] Osmolality Calc 293.3 mOsm/kg 11:25 AM EDT [facility] eGFR (mL/min/1.73m2) 30(L) >=60 mL/min/1.7 3m2 12/06/2024 11:25 AM EDT [facility] Comment:ESTIMATED GFR IS NOT ACCURATE CREATININE CLEARANCE IN PREDICTING GLOMERULAR FILTRATION RATE. ESTIMATED GFR IS NOT APPLICABLE FOR DIALYSIS PATIENTS. Blood Venipuncture / Unknown 12/06/2024 10:35 AM EDT 12/06/2024 10:44 AM EDT Xochitl Serra MD LAB BLOOD ORDERABLES Final Res ult Performing Organization Address City/[facility]/ZIP Co de Phone Number [facility] [address] [place] [address], [facility] [phone] * (ABNORMAL) Hemoglobin A1c (03/15/2023 11:20 AM EST) Hemoglobin A1C 6.5(H) 4.2 - 6.3 % 03/15/2023 12:24 PM EST [facility] Comment: Hemoglobin A1C levels are related to mean glucose during the preceding 2-3 months. Less than 7% demonstrates glycemic control in diabetic patients. Hemoglobin AlC % Suggested Diagnosis > or = 6.5 Diabetic 5.7 - 6.4 Prediabetic <5.7 Non-diabetic eAVG Glucose 139.85 mg/dL 03/15/2023 12:24 PM EST [facility] Blood Venipuncture / Unknown 03/15/2023 11:20 AM EST 03/15/2023 11:35 AM EST Eric Parkinson MD LAB BLOOD ORDERABLES Fi nal Result Performing Organization Address City/[facility]/ZIP Co de Phone Number [facility] [address] [place], [place] [id number] [place] [address] from Last 3 Months or Most Recently Relevant to Health Maintenance Insurance MEDICARE PART A B SUPP Advance Directives For more information, please contact: [phone] * Full Code (Latest Code Status on File) Date Activated Date Inactivated Comments 08/16/2023 10:48 AM 08/16/2023 7:35 PM * Full Code Date Activated Date Inactivated Comments 03/21/2023 11:25 AM 03/24/2023 3:00 PM * Full Code Date Activated Date Inactivated Comments 03/21/2023 5:18 AM 03/21/2023 11:25 AM Care Teams Pit Furnace Melter Relationship Specialty Start Date End Date Christopher Yadav MD [address] [place] [phone] PCP - General General Internal Medicine 03/15/23
--- OUTSIDE RECORDS SUMMARY | 2025-02-19 12:08 | XMS_ITS | Encounter Summary ---
Author Organization Healthcare Address [address] [place] [address] Care Team Providers Care Vp Production Name Role Phone Christopher Yadav MD Primary Care Provider [phone] Encounter Details Date Type Department Care Team (Late st Contact Info) Description 07/27/2023 Orders Only External Location [address] [place] [address] Provider, External Social History Tobacco Use Types [...] on filedocumented in this encounter Care Teams Vp Production Relationship Specialty Start Date End Date Christopher Yadav MD [address] [facility] [address] [place] [phone] (Work) PCP - General 07/11/20 documented as of this encounter
--- OUTSIDE RECORDS SUMMARY | 2025-02-19 12:09 | XMS_ITS | Encounter Summary ---
[facility] Organization [facility] Address [address] [place] [address] Care Team Providers Care Surg Tech Name Role Phone Christopher Yadav MD Primary Care Provider [phone] Encounter Details Date Type Department Care Team (Latest Contact Info) Description 02/08/2025 Travel Social History Tobacco Use Types Packs/Day Years Used Date Smoking Tobacco: Former Smokeless Tobacco: Never Comments:quit 1980 Alcohol Use Standard Drinks/Week Comments No 0 (1 standard drink = 0.6 oz pur e alcohol) [facility] Utilities Answer Date Recorded In the past 12 months has [employer] electric, gas, oil, or water company threatened [...] GED or equivalent No 10/30/2024 Preferred Language Ecuadorean 10/30/2024 Sex and Gender Information Value Date Recorded Sex Assigned at Not on file Legal Sex Male 1:45 PM EDT Gender Identity Not on file Sexual Orientation Not on file documented as of this encounter Plan of Treatment Upcoming Encounters Date Type Department Care Team (Late st Contact Info) Description 03/19/2025 1:15 PM EST Appointment [facility] [address] [place] [address] 06/19/2025 8:45 AM EDT Office Visit [facility] [address] [facility] [address] [place] [phone] Daniel Vasquez MD 3084 [facility] 100 [place] [address] documented as of this encounter Visit Diagnoses Not on filedocumented in this encounter Care Teams Surg Tech Relationship Specialty Start Date End Date Christopher Yadav MD 1210 [facility] [address] [facility] [address] [place] [address] PCP - General Internal Medicine 07/27/23 documented as of this encounter
--- OUTSIDE RECORDS SUMMARY | 2025-02-19 12:09 | XMS_ITS | Encounter Summary ---
Author Organization Healthcare Address [address] [place] [address] Care Team Providers Care Contract Designer Name Role Phone Christopher Yadav MD Primary Care Provider [phone] Encounter Details Date Type Department Care Team [...] often do you attend chur ch or worship services? Never 01/12/2025 Do you belong to any clubs o r organizations such as scientologist groups, unions, fraternal or athletic groups, or [...] more drinks on one occasion? Never 01/12/2025 [facility] - [...] any time in the past 12 m [facility], were you homeless or living in a jail (including now)? No 01/12/2025 [facility] [...] documented as of this encounter Care Teams Contract Designer Relationship Specialty Start Date End Date Christopher Yadav MD [address] [place] [address] [address] [place] [facility] PCP - General 07/11/20 documented as of this encounter
--- OUTSIDE RECORDS SUMMARY | 2025-02-19 12:09 | XMS_ITS | Clinical Summary ---
Author Organization Healthcare Address [address] [place] [place] [address] Care Team Providers Care Field Seismologist Name Role Phone Christopher Yadav MD Primary Care Provider [phone] Allergies No known active allergies Medications allopurinol [...] not crush, chew, or split. Active pancrelipase, Fim-Mman-Ncnh, (Creon) 10327-533052 units capsule delayed-release particles capsuleIndications :Pancreatic Insufficiency [...] Type Department Care Team Description 02/05/2025 Telephone [facility] 3 [facility] [address] [place] [address] Charlene Rodriguez 01/12/2025 Plan of Care Documentation [facility] Inpatient Psychiatry [address] [place] [address] 01/11/2025 10:31 PM EST - 01/16/2025 1:40 PM EST Hospital Encounter [facility] Inpatient Psychiatry [address] [place] [address] Davina Kang MD [place], Sarah [...] week 01/12/2025 How often do you attend [facility] or orthodoxy services? Never 01/12/2025 Do you belong to any clubs o r organizations such as anglican groups, unions, fraternal or athletic groups, or [...] more drinks on one occasion? Never 01/12/2025 [facility] - Occupational Stress [...] any time in the past 12 m [facility], were you homeless or living in a halfway (including now)? No 01/12/2025 [facility] Utilities Answer Date Recorded In the [...] Vaccines (2 - Tdap) 02/28/2022 02/29/2012, 01/16/1998 [id number] Vaccine ( season) 2024 02/03/2023, 12/22/2021, 06/25/2021, [...] this topic Medical Devices Implanted Type Area Donor Recruitment Manager Device Identifier Shelf Expiration Date Model / [...] of18 resultswithin the time period is included. [facility] POCT Glucose 155(H) 74 - 99 mg/dL [...] for testing. Comment 01/16/2025 11:28 AM EST [facility] Raw Sampler ID Ness Barber 025 11:28 AM EST [facility] Device ID [id number] 01/16/2025 11:28 AM EST [facility] Specimen Type POC Capillary 01/16/2025 11:28 AM EST [facility] Blood Capillary blood specimen / Unknown 01/16/2025 11:27 AM EST 01/16/2025 11:28 AM EST Davina Nicholas DO LAB POINT OF CARE TEST DOCKED DEVICE UNSOLICITED RESULTS Final Result Performing Organization Address City/State/[facility] Co de Phone Number [facility] [address] [place] [address] * Hepatitis B Surface Antigen - Empath (01/13/2025 5:13 AM EST) [facility] Hepatitis B Surf Antigen Negative Negative 01/13/2025 9:55 AM EST [facility] Blood Venous blood specimen / Unknown Venipuncture / Unknown 01/13/2025 5:13 AM EST 01/13/2025 5:37 AM EST us Davina Kang MD LAB BLOOD ORDERABLES Final Resul t Performing Organization Address City/[facility]/ZIP Co de Phone Number [facility] [address] [place] [address] * Hepatitis C Antibody with Reflex to HCV Quant PCR - Empath (01/13/2025 5:13 AM EST) Hepatitis C Antibody Negative Negative 01/13/2025 6:59 AM EST [facility] Blood Venous blood specimen / Unknown Venipuncture / Unknown 01/13/2025 5:13 AM EST 01/13/2025 5:37 AM EST Davina Kang MD LAB BLOOD ORDERABLES Final Resul t Performing Organization Address [facility] Co de Phone Number [facility] [address] [place] [address] * TSH Reflex FT4 (01/13/2025 5:13 AM EST) Pathologist [facility] Thyroid Stimulating Hormone, Plasma 3.08 0.40 - 4.20 uIU/mL 01/13/2025 7:02 AM EST [facility] Blood Venous blood specimen / Unknown Venipuncture / Unknown 01/13/2025 5:13 AM EST 01/13/2025 5:37 AM EST Davina Kang MD LAB BLOOD ORDERABLES Final Resul t Performing Organization Address City/[facility] Co de Phone Number [facility] [address] [place] [address] * HIV 1 & 2 Antibody/Antigen Screen (01/13/2025 5:13 AM EST) Pathologist [facility] HIV 1 & 2 Antibody/Antigen Screen Non Reactive Non Reactive 01/13/2025 7:06 AM EST [facility] Comment:Screening for HIV 1 & 2 antibodies, and P24 antigen is NONREACTIVE. No confirmatory testing is required. Blood Venous blood specimen / Unknown Venipuncture / Unknown 01/13/2025 5:13 AM EST 01/13/2025 5:37 AM EST Vandana BUTCHER LAB BLOOD ORDERABLES Final Re sult [facility] [address] [place] [id number] * (ABNORMAL) CBC and differential (01/13/2025 5:13 AM EST) WBC Count 6.68 3.70 - 10.30 10*3/uL LAB HEMATOLOGY METHOD 01/13/2025 5:41 AM EST [facility] RBC Count 3.21(L) 4.60 - 6.10 10*6/uL LAB HEMATOLOGY METHOD 01/13/2025 5:41 AM EST [facility] HGB 10.2(L) 13.7 - 17.5 g/dL LAB HEMATOLOGY METHOD 01/13/2025 5:41 AM EST [facility] HCT 31.8(L) 40.0 - 51.0 % LAB HEMATOLOGY METHOD 01/13/2025 5:41 AM EST [facility] Platelet Count 177 155 - 369 10*3/uL LAB HEMATOLOGY METHOD 01/13/2025 5:41 AM EST [facility] MCV 99(H) 79 - 98 fL LAB HEMATOLOGY METHOD 01/13/2025 5:41 AM EST [facility] MCH 31.8 26.0 - 32.0 pg LAB HEMATOLOGY METHOD 01/13/2025 5:41 AM EST [facility] MCHC 32.1 30.7 - 35.5 g/dL LAB HEMATOLOGY METHOD 01/13/2025 5:41 AM EST [facility] RDW 16.0(H) 11.5 - 14.5 % LAB HEMATOLOGY METHOD 01/13/2025 5:41 AM EST [facility] MPV 10.5 8.8 - 12.5 fL LAB HEMATOLOGY METHOD 01/13/2025 5:41 AM EST [facility] nRBC 0.0 <=0.0 per 100 WBCs LAB HEMATOLOGY METHOD 01/13/2025 5:41 AM EST [facility] Differential Type Automated LAB HEMATOLOGY METHOD 01/13/2025 5:41 AM [facility] Neutrophils % 56 % LAB HEMATOLOGY METHOD 01/13/2025 5:41 AM EST [facility] Lymphocytes % 33 % LAB HEMATOLOGY METHOD 01/13/2025 5:41 AM EST [facility] Monocytes % 8 % LAB HEMATOLOGY METHOD 01/13/2025 5:41 AM [facility] Eosinophils % 1 % LAB HEMATOLOGY METHOD 01/13/2025 5:41 AM [facility] Basophils % 1 % LAB HEMATOLOGY METHOD 01/13/2025 5:41 AM EST [facility] Immature Granulocytes % 1 % LAB HEMATOLOGY METHOD 01/13/2025 5:41 AM EST [facility] Neutrophils Absolute 3.81 1.60 - 6.10 10*3/uL LAB HEMATOLOGY METHOD 01/13/2025 5:41 AM EST [facility] Lymphocytes Absolute 2.23 1.20 - 3.90 10*3/uL LAB HEMATOLOGY METHOD 01/13/2025 5:41 AM EST [facility] Monocytes Absolute 0.52 0.30 - 0.90 10*3/uL LAB HEMATOLOGY METHOD 01/13/2025 5:41 AM EST [facility] Eosinophils Absolute 0.04 0.00 - 0.50 10*3/uL LAB HEMATOLOGY METHOD 01/13/2025 5:41 AM EST [facility] Basophils Absolute 0.04 0.00 - 0.10 10*3/uL LAB HEMATOLOGY METHOD 01/13/2025 5:41 AM EST [facility] Immature Granulocytes Absolute 0.04 [...] ORDERABLES Final Resul t [facility] [address] [place] [id number] * Phosphorus (01/13/2025 5:13 AM EST) [facility] Phosphorus, Plasma 4.3 2.5 - 4.5 mg/dL 01/13/2025 7:02 AM EST [facility] Blood Venous blood specimen / Unknown Venipuncture / Unknown 01/13/2025 5:13 AM EST 01/13/2025 5:37 AM EST us Dvaina Kang MD LAB BLOOD ORDERABLES Final Resul t [facility] [address] [place] [address] * (ABNORMAL) Lipid panel (01/13/2025 5:13 AM [...] MD LAB BLOOD ORDERABLES Final Resul t [facility] [address] [place] [address] * (ABNORMAL) Comprehensive metabolic panel (01/13/2025 5:13 AM EST) Glucose, Plasma 143(H) 74 - 99 mg/dL 01/13/2025 7:02 AM EST [facility] BUN, Plasma 25(H) 8 - 23 mg/dL 01/13/2025 7:02 AM [facility] Creatinine, Plasma 1.41(H) 0.70 - 1.20 mg/dL 01/13/2025 7:02 AM [facility] BUN/Creatinine Ratio 18 01/13/2025 7:02 AM [facility] Sodium, Plasma 139 136 - 145 mmol/L 01/13/2025 7:02 AM [facility] Potassium, Plasma 4.0 3.6 - 4.9 mmol/L 01/13/2025 7:02 AM [facility] Chloride, Plasma 103 97 - 107 mmol/L 01/13/2025 7:02 AM [facility] CO2, Plasma 30(H) 22 - 29 mmol/L 01/13/2025 7:02 AM [facility] Anion Gap 6 6 - 16 mmol/L 01/13/2025 7:02 AM [facility] Total Calcium, Plasma 9.0 8.9 - 10.2 mg/dL 01/13/2025 7:02 AM [facility] Total Protein 6.0(L) 6.3 - 7.9 g/dL 01/13/2025 7:02 AM [facility] Albumin, Plasma 3.7 3.5 - 5.2 g/dL 01/13/2025 7:02 AM [facility] AST, Plasma 13 10 - 50 U/L 01/13/2025 7:02 AM [facility] ALT, Plasma 6(L) 10 - 50 U/L 01/13/2025 7:02 AM [facility] Alkaline Phosphatase, Plasma 72 40 - 115 U/L 01/13/2025 7:02 AM [facility] Total Bilirubin, Plasma 0.5 0.2 - 1.1 mg/dL 01/13/2025 7:02 AM [facility] eGFRcr 48.5 mL/min/1.7 3m*2 01/13/2025 7:02 AM EST [facility] Comment:Reported eGFRcr in m L/min/1.73m2 is based the CKD-EPI 2020 equation that does not use a race coefficient. Blood Venous blood specimen / Unknown Venipuncture / Unknown 01/13/2025 5:13 AM EST 01/13/2025 5:37 AM EST Davina Kang MD LAB BLOOD ORDERABLES Final Resul t Performing Organization Address City/[facility] Co de Phone Number [facility] [address] [place] [address] * ECG Adult (01/12/2025 6:23 PM EST) EKG DIAGNOSIS CLASS Abnormal MUSE ECG Ventricular Rate 66 BPM MUSE ECG QRSD Interval 96 ms MUSE ECG QT Interval 414 ms MUSE ECG QTC Interval 434 ms MUSE ECG R [place] 38 degrees MUSE ECG T Wave [place] 94 degrees MUSE ECG Diagnosis Atrial fibrillation with premature ventricular or aberrantly conducted complexes MUSE ECG Diagnosis Indeterminate axis MUSE ECG Diagnosis Abnormal ECG MUSE ECG Diagnosis MUSE ECG Diagnosis Confirmed by Osmin Valerio ([id number]) on 01/13/2025 5:12:51 PM MUSE ECG 01/12/2025 6:23 PM EST 01/13/2025 5:12 PM EST Davina Kang MD ECG ORDERABLES Final Result Performing Organization Address [facility] Co de Phone Number MUSE ECG * (ABNORMAL) POCT Glucose - Before Meals and Bedtime (01/12/2025 8:17 AM EST) Pathologist [facility] POCT Glucose 152(A) 74 - 99 mg/dL [facility] Test Strip Lot Number [id number] [facility] Test Strip Expiration [id number] [facility] Blood Venous blood specimen / Unknown 01/12/2025 8:17 AM EST Davina Kang MD POINT OF CARE TEST ENTER/EDIT OR DERABLES Final Result Performing Organization Address City/[facility]/ZIP Co de Phone Number [facility] [address] [place] [address] from Last 3 Mon[place] [address] ANTHE[employer] Advance Directives Documents on File Type Date Recorded Patient Director Ehs Expl anation Advance Directives and Livin g Will 10/17/2024 11:31 AM * Full Code (Latest Code Status on File) Date Activated Date Inactivated Comments 01/12/2025 8:03 AM 01/16/2025 5:25 PM Question Answer Comments I have reviewed the capacity from the link above and, if needed, have updated to appropriate status: Yes Care Teams Field Seismologist Relationship Specialty Start Date End Date Christopher Yadav MD [address] [facility] [address] [place] [address] PCP - General 07/11/20
--- OUTSIDE RECORDS SUMMARY | 2025-02-19 12:09 | XMS_ITS | Encounter Summary ---
Author Organization [employer] ([place], [place], [place], [place], [place]) Address [address] [place] [address] Care Team Providers Care Clinical Safety Manager Name Role Phone Christopher Yadav MD Primary Care Provider [phone] Encounter Details Date Type Department Care Team (Late st Contact Info) Description 08/04/2023 Surgery Prep [facility] Urology - [address] [address] Samuel Mata MD [address] [address] Elevated PSA (Primary Dx) Social [...] Date Ehsan rded Speak language other than Mauritanian at home Not on file 03/11/2023 Want [...] Description 03/27/2025 3:00 PM EST Office Visit [facility] - [address] [place] [address] Arnol Courtney MD [address] [facility] [address] [place] [address] documented as of this encounter Visit Diagnoses Diagnosis Elevated PSA- Primary Elevated prostate specific antigen (PSA) documented in this encounter Care Teams Clinical Safety Manager Relationship Specialty Start Date End Date Christopher Yadav MD [address] [place] [facility] [address] [place] [address] PCP - General General Internal Medicine 03/15/23 documented as of this encounter
--- OUTSIDE RECORDS SUMMARY | 2025-02-19 12:09 | XMS_ITS | Encounter Summary ---
Author Organization Healthcare Address [address] [place] [address] Care Team Providers Care Clinical Data Research Name Role Phone Christopher Yadav MD Primary Care Provider [phone] Encounter Details Date Type Department Care Team (Late st Contact Info) Description 02/05/2025 Telephone [facility] 3 [facility] [address] [place] [address] Charlene Rodriguez Social History Tobacco Use Types [...] often do you attend chur ch or lutheran services? Never 01/12/2025 Do you belong to any clubs o r organizations such as methodist groups, unions, fraternal or athletic groups, or [...] more drinks on one occasion? Never 01/12/2025 [facility] Questionnaire Answer Date [...] any time in the past 12 m [facility], were you homeless or living in a [place] health [place] facility (including now)? No 01/12/2025 [facility] Utilities Answer Date Recorded In the [...] Best contact phone number and person contacted: [phone] Discharge date: 01/16/25 Date of call back: [...] documented as of this encounter Care Teams Clinical Data Research Relationship Specialty Start Date End Date Christopher Yadav MD [address] [place] [address] [address] [place] [address] PCP - General 07/11/20 documented as of this encounter
--- OUTSIDE RECORDS SUMMARY | 2025-02-19 12:09 | XMS_ITS ---
Author Organization [employer] ([place], [place], [place], [place], [place]) Address [address] [place] [address] Care Team Providers Care Heat Reader Name Role Phone Christopher Yadav MD Primary Care Provider [phone] Active Problems Problem Noted Date Diagnosed Date [...] Treatment Medications Discontinue Reason Plan Provider Cycles [facility] Prostate - leuprolide 22.5 mg (Eligard) every 84 days 4 09/17/2024 leuprolide acetate (3 month) (ELIGARD)sodiu m chloride 0.9 % (NS) Patient Preference Xochitl Serra MD 4 of 16 cycles started
--- OUTSIDE RECORDS SUMMARY | 2025-02-19 12:09 | XMS_ITS | Clinical Summary ---
[facility] Address [address] [place] [address] Care Team Providers Care Lieutenant Fire Fighter Name Role Phone Christopher Yadav MD Primary Care Provider [phone] Allergies No known active allergies Medications allopurinol [...] suggested checking CMP today but he says mohs surgeon/general dermatologist is checking this regularly.. Type 2 diabetes [...] 11:27 AM EST): Continue statin. He says cash teller is checking lipids. Assessment & Plan (08/12/2021 [...] Diabetes will be reassessed in 3 months. Tapgagee 2 CGM was downloaded today. Data was [...] Type Department Care Team Description 02/16/2025 Refill [facility] [address] [place] [address] Christopher Yadav MD 02/08/2025 12:27 PM EST - 02/08/2025 11:59 PM EST Hospital Encounter [facility] [address] [facility] [address] [place] [address] Discharge Disposition: Home or Self Care 02/08/2025 Travel 12/19/2024 11:00 AM EDT Office Visit [facility] [address] [place] [address] Daniel Vasquez MD Uncontrolled type 2 diabetes mellitus with hyperglycemia (Primary Dx); Primary hypertension; Mixed hyperlipidemia; 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 12/19/2024 Travel 12/04/2024 Telephone [facility] [address] [place] [address] Daniel Vasquez MD [facility] 2 SENSORS from Last 3 Months Family [...] drink = 0.6 oz pur e alcohol) [facility] Utilities Answer Date Recorded In the past 12 months has [employer] electric, gas, oil, or water company threatened [...] GED or equivalent No 10/30/2024 Preferred Language Djiboutian 10/30/2024 Sex and Gender Information Value Date [...] Info) Description 03/19/2025 1:15 PM EST Appointment [facility] [address] [place] [address] 06/19/2025 8:45 AM EDT Office Visit [facility] END[facility] [address] [facility] [address] [place] [id number] Daniel Vasquez MD [address] [facility] [address] [place] [address] Health Maintenance Due Date Last [...] Hemoglobin A1C 7.7(A) 4.5 - 5.7 % [facility] Lot Number [id number] [facility] Expiration Date 07/27/2026 [facility] Blood 12/19/2024 11:1 8 AM EDT us Daniel Vasquez MD POINT OF CARE TEST ORDERA BLES Final Result [facility]
[address] [place] [address], * (ABNORMAL) POC Glucose, Blood (12/19/2024 11:15 [...] - 29.0 mg/g 05/19/2024 12:48 AM EDT [facility] Creatinine, Urine 53.7 mg/dL 05/19/2024 12:48 AM EDT [facility] Microalbumin, Urine 3.1 mg/dL 05/19/2024 12:48 AM EDT [facility] Urine Urine specimen obtained by clean catch procedure / Unknown Collection / Unknown 05/18/2024 12:04 PM EDT 05/18/2024 12:04 PM EDT us Daniel Vasquez MD URINE ORDERABLES Final Re sult [facility]
[address] [place] [address], * SCANNED - EYE EXAM (05/19/2022) Anatomical Region Laterality Modality Other us Daniel Vasquez MD CHART REVIEW TABS Savanah lucas Result from Last 3 Months or Most Recently Relevant to Health Maintenance Insurance MEDICARE A & [facility] Advance Directives Documents on File Type Date Recorded Patient Carpenter Repair Expl anation PATIENT ADVANCE DIRECTIVES - SCAN [...] pulse or is breathing): Full Care Teams Lieutenant Fire Fighter Relationship Specialty Start Date End Date Christopher Yadav MD [address] [facility] [address] [facility] [address] PCP - General Internal Medicine 07/27/23
--- OUTSIDE RECORDS SUMMARY | 2025-02-19 12:09 | XMS_ITS | Encounter Summary ---
Author Organization Healthcare Address [address] [place] [address] Care Team Providers Care Friction Welding Machine Operator Name Role Phone Christopher Yadav MD Primary Care Provider [phone] Encounter Details Date Type Department Care Team (Late st Contact Info) Description 01/12/2025 Plan of Care Documentation [facility] Inpatient Psychiatry [address] [place] [address] Social History Tobacco Use Types [...] often do you attend chur ch or yarsanism services? Never 01/12/2025 Do you belong to any clubs o r organizations such as rastafarian groups, unions, fraternal or athletic groups, or [...] any time in the past 12 m [facility], were you homeless or living in a usp (including now)? No 01/12/2025 [facility] Utilities Answer Date Recorded In [...] documented as of this encounter Care Teams Friction Welding Machine Operator Relationship Specialty Start Date End Date Christopher Yadav MD [address] [place] [address] [address] [place] [address] PCP - General 07/11/20 documented as of this encounter
--- OUTSIDE RECORDS SUMMARY | 2025-02-19 12:09 | XMS_ITS | Encounter Summary ---
Author Organization [employer] ([place], [place], [place], [place], [place]) Address [address] [place] [address] Care Team Providers Care Electric Gas Appliances Demonstrator Name Role Phone Christopher Yadav MD Primary Care Provider [phone] Encounter Details Date Type Department Care Team (Late st Contact Info) Description 08/23/2023 Telephone [facility] - [address] [place] [address] Wanda Peres, STEWARD/STEWARDESS Social History Tobacco Use Types Packs/Day Years [...] Date Ehsan rded Speak language other than [place] at home Not on file 03/11/2023 Want [...] Description 03/27/2025 3:00 PM EST Office Visit [facility] - [address] [place] [address] Arnol Courtney MD [address] [facility] [address] [place] [address] documented as of this encounter Visit Diagnoses Not on filedocumented in this encounter Care Teams Electric Gas Appliances Demonstrator Relationship Specialty Start Date End Date Christopher Yadav MD [address] [place] [address] [place] [address] PCP - General General Internal Medicine 03/15/23 documented as of this encounter
--- OUTSIDE RECORDS SUMMARY | 2025-02-19 12:09 | XMS_ITS | Encounter Summary ---
Author Organization [facility] yste Address [address] [place] [address] Care Team Providers Care Supervisor Lending Activities Name Role Phone Christopher Yadav MD Primary Care Provider [phone] Reason for Visit * Reason Onset Date Comments Med Refill 02/16/2025 Encounter Details Date Type Department Care Team (Late st Contact Info) Description 02/16/2025 Refill [facility] END[facility]OLOG[facility] [address] [facility] [address] [place] [id number] Christopher Yadav MD [address] [facility] [address] [place] [address] Social History Tobacco Use Types Packs/Day Years Used Date Smoking Tobacco: Former Smokeless Tobacco: Never Comments:quit 1980 Alcohol Use Standard Drinks/Week Comments No 0 (1 standard drink = 0.6 oz pur e alcohol) [facility] Utilities Answer Date Recorded In the past 12 months has [employer], [employer], oil, or water [employer] threatened to shut off services in your [...] GED or equivalent No 10/30/2024 Preferred Language Colombian 10/30/2024 Sex and Gender Information Value Date Recorded Sex Assigned at Not on file Legal Sex Male 1:45 PM EDT Gender Identity Not on file Sexual Orientation Not on file documented as of this encounter Plan of Treatment Upcoming Encounters Date Type Department Care Team (Late st Contact Info) Description 03/19/2025 1:15 PM EST Appointment [facility] [address] [place] [address] 06/19/2025 8:45 AM EDT Office Visit [facility] [address] [facility] [address] [place] [address] Daniel Vasquez MD [address] [facility] [address] [place], [place] [id number] documented as of this encounter Visit Diagnoses Not on filedocumented in this encounter Care Teams Supervisor Lending Activities Relationship Specialty Start Date End Date Christopher Yadav MD [address] [facility] [address] [place] [address] PCP - General Internal Medicine 07/27/23 documented as of this encounter
--- OUTSIDE RECORDS SUMMARY | 2025-02-19 12:09 | XMS_ITS | Encounter Summary ---
Author Organization [facility] yste Address [address] [place] [address] Care Team Providers Care Marketing Technology Coordinator Name Role Phone Christopher Yadav MD Primary Care Provider [phone] Reason for Visit * Reason Onset Date Comments [facility] [employer] 12/04/2024 Encounter Details Date Type Department Care Team (Late st Contact Info) Description 12/04/2024 Telephone [facility] ENDOCRINOLOGY [address] [address] Daniel Vasquez MD [address] [address] [facility] [employer] Social History Tobacco Use Types Packs/Day Years Used Date Smoking Tobacco: Former Smokeless Tobacco: Never Comments:quit 1980 Alcohol Use Standard Drinks/Week Comments No 0 (1 standard drink = 0.6 oz pur e alcohol) [facility] Utilities Answer Date Recorded In the past 12 months has [employer], [employer], oil, or water [employer] threatened to shut off services in your [...] GED or equivalent No 10/30/2024 Preferred Language [place]inean 10/30/2024 Sex and Gender Information Value Date [...] to patient: Self Best call back number: [phone] Patient is needing: PT RETURNING PATRICIA'S PHONE [...] to patient: Self Best call back number: [phone] Patient is needing: PT CALLING TO SPEAK [...] Info) Description 03/19/2025 1:15 PM EST Appointment [facility] [address] [place] [address] 06/19/2025 8:45 AM EDT Office Visit [facility] [address] [facility] [address] [place] [address] Daniel Vasquez MD [address] [facility] [address] [place] [address] documented as of this encounter Visit Diagnoses Not on filedocumented in this encounter Care Teams Marketing Technology Coordinator Relationship Specialty Start Date End Date Christopher Yadav MD [address] [facility] [address] [place] [address] PCP - General Internal Medicine 07/27/23 documented as of this encounter
[2025-02-19] MEDS: MIDODRINE HCL 5 MG TABLET PO (12:31)
--- NOTE | 2025-02-19 13:41 | SW/DCPLANNER ---
Addendum entered by Kesha Fournier 02/20/25 09:40: Spoke with patient again regarding home health services and patient stated that he is not interested and that if he feels he needs it once he gets home he will talk to his primary care provider about home health. Baldev Flores Original Note: Spoke with patient and patient's son regarding home health services once he is medically stable and ready for discharge. Patient is not interested in having home health at this time. Baldev Flores
[2025-02-19 15:57] LABS: POC Glucose,Bedside 177 gm/dL (70-110)
[2025-02-19] MEDS: HYDROCORTISONE SOD SUCCINATE 100MG VIAL 50 MG IV ×2 (16:08→22:40)
--- NOTE | 2025-02-19 18:16 | PC.NURSE ---
pt resting in bed, A/O x4, assist standby, RA, call light in reach
[2025-02-19 20:18] LABS: POC Glucose,Bedside 213 gm/dL (70-110)
--- NOTE | 2025-02-19 20:41 | P.EN_ITS ---
BP 150/77 tonight so held midodrine
--- NOTE | 2025-02-19 20:41 | EXP.EVENT.NO ---
BP 150/77 tonight so held midodrine
[2025-02-19] MEDS: TAMSULOSIN 0.4MG CAPSULE 0.4 MG PO (21:03)
[2025-02-19] MEDS: PRAVASTATIN 40MG TAB 80 MG PO (21:03)
[2025-02-20] VITALS: BP 140/81; PULSE 70; PULSE 71; RESP 16; TEMP 36.6; O2SAT 97
[2025-02-20 04:00] VITALS: BP 129/56; PULSE 60; PULSE 80; RESP 16; TEMP 36.4; O2SAT 96; BMI 31.4
[2025-02-20] MEDS: HYDROCORTISONE SOD SUCCINATE 100MG VIAL 50 MG IV (06:07)
[2025-02-20 08:00] VITALS: BP 134/71; PULSE 79; PULSE 80; RESP 16; TEMP 36.6; O2SAT 96
[2025-02-20] MEDS: CHOLECALCIFEROL 1,000 UNITS (25MCG) TABLET 50 MCG PO (08:24)
[2025-02-20] MEDS: CLOPIDOGREL 75MG TAB 75 MG PO (08:25)
[2025-02-20] MEDS: APIXABAN 5MG TABLET 2.5 MG PO (08:25)
[2025-02-20] MEDS: ALLOPURINOL 100MG TABLET 100 MG PO (08:26)
[2025-02-20] MEDS: CLINDAMYCIN 150MG CAPSULE 450 MG PO (08:26)
[2025-02-20] MEDS: EMPAGLIFLOZIN 10MG TABLET 10 MG PO (08:26)
[2025-02-20] MEDS: ESCITALOPRAM 10MG TABLET 5 MG PO (08:27)
[2025-02-20 08:28] LABS: Hematocrit 36.6 % (42.0-52.0); Hemoglobin 12.4 g/dL (14.1-18.0); Immature Granulocytes % 0.5 %; Mean Corpuscular HGB Conc 33.9 g/dL (31.8-35.4); Mean Corpuscular Hemoglobin 32.0 pg (27.0-31.2); Mean Corpuscular Volume 94.3 fl (80-94); Nucleated Red Blood Cells % 0 %; Platelet Count 236 K/mm3 (142-424); Red Blood Count 3.88 M/mm3 (4.60-6.20); Red Cell Distribution Width-SD 53.1 fL; White Blood Count 8.7 K/mm3 (4.8-10.8)
[2025-02-20] MEDS: MUPIROCIN 2% OINTMENT 22GM TUBE TP (08:28)
[2025-02-20 08:29] LABS: Albumin Level 4.1 g/dl (3.5-5.0); Chloride 102 mmol/L (98-107); Potassium 3.7 mmoL/L (3.5-5.1); Sodium 140 mmol/L (136-145)
[2025-02-20] MEDS: GABAPENTIN 300MG CAPSULE 300 MG PO (08:30)
[2025-02-20 08:31] LABS: Blood Urea Nitrogen 30 mg/dl (9-20); Creatinine Clearance Estimated 56 mL/min (50-200); Creatinine,Serum 1.40 mg/dl (0.66-1.25); Estimated Glomerular Filt Rate 48 ml/min (>60); GFR (African American) 58 ML/MIN (>60)
[2025-02-20 08:32] LABS: Alanine Aminotransferase 15 U/L (12-78); Albumin/Globulin Ratio 1.5 (1.1-1.8); Alkaline Phosphatase 92 U/L (38-126); Anion Gap 16.7 mEq/L (5-15); Aspartate Amino Transferase 35 U/L (17-59); Bilirubin,Total 0.5 mg/dl (0.2-1.3); Calcium 8.9 mg/dl (8.4-10.2); Carbon Dioxide 25 mmol/L (22.0-30.0); Globulin 2.7 g/dL (1.3-3.2); Glucose 147 mg/dl (74-100); Total Protein,Serum 6.8 g/dl (6.3-8.2)
--- NOTE | 2025-02-20 09:20 | P.DS_ITS ---
<Statement entered by Lloyd Guthrie MD - 02/20/25 11:12> Rounded on patient after nurse practitioner. Personally examined and interviewed patient. Agree with exam findings and care plan as documented. General Admission date:: 02/18/25 Discharge date: 02/20/25 HPI HPI HPI: Mr. Palmer is a 84-year-old male who presented to the emergency department today accompanied by his son for evaluation of low blood pressure at home, along with feelings of fatigue and weakness. He has a primary medical history of insulin- dependent diabetes, neuropathy, weight loss, loss of appetite, weakness, p aroxysmal atrial fibrillation, GERD, MDD, suicidal ideation, CKD stage III, metastatic prostate cancer, HFpEF, CAD, adrenal insufficiency, HLD. The patient states he took his blood pressure at home and it was reportedly low 86 systolic. Per his son a few months ago patient was having suicidal ideation and was taken to [facility] at for evaluation. At that time he was started on Wellbutrin. Patient currently denies suicidal thoughts but does endorse depression and feelings of hopelessness. He states he was on his way to see his management accountant for a wound on his foot but began complaining of increased weakness at that time and son felt he should be seen by the emergency department. Patient takes multiple medications for his diabetes, HFpEF, HTN, MDD but according to family they are unsure if he has been taking them accurately. Patient was worked up in the emergency department and at that time found to have orthostatic hypotension, with a drop of 40 point systolic upon standing. Additionally patient had a bedside echo performed which was suggestive of a newly decreased EF. Lab work performed showed BNP of 1570, creatinine 1.7, hemoglobin 11.9. Patient was also found to have a left second toenail avulsion which was cultured on 02/11/2025 positive for Staph hominis. At the time of evaluation patient had injured his left toe inducing loss of his left second toe toenail and small ulceration at tip of toe noted. Patient was not started on antibiotics at that time but given mupirocin ointment for home use. Podiatry assessed patient in the emergency department and recommended starting antibiotics due to slow healing, patient given clindamycin 450 mg orally in the ED. Additionally, patient has recently been worked up for bradycardia. He does have a primary medical history of paroxysmal A-fib. Patient reports he wore a Holter monitor from his oliving machine operator/EP in [place]. He states his Holter monitor showed heart rates in the 30s and it was recommended he get a pacemaker placed. Patient has declined pacemaker. Cardiology evaluated patient and recommended admission for further monitoring and orthostatic hypotension. Additionally recommended gentle rehydration with 1 L normal saline. Concern for hypotension related to adrenal insufficiency. Patient has known adrenal insufficiency but it is not managed as far as the family is aware. He is not taking his pre dnisone 5 mg daily per son. Hospital Course Hospital Course Hospital Course: Mr. Palmer is a 84-year-old male who was admitted to the medical surgical floor for orthostatic hypotension, complicated by depression with recent suicidal ideation and possible adrenal insufficiency. Additionally was noted to possibly have reduced EF on bedside echo in the ED, formal echo obtained shows LVEF of 55%, no change from previous echo. Patient also noted to have a left second toe avulsion of nail plate with diabetic ulcer previously assessed outpatient with podiatry. Cardiology, endocrinology, podiatry all consulted. Hospital medicine was consulted from the emergency department for admission for further management of patient's multiple needs, I agreed to admit the patient. Hospital course as follows: #Orthostatic hypotension #HFpEF #Paroxysmal A-fib with sick sinus syndrome ?Patient was noted to have postural hypotension in the emergency department, drop in systolic by 40 points when standing. Patient sees Dr. Jackson and Dr. Hollins in [place] for his cardiac care. Patient states that he recently wore a heart monitor and showed his heart rate going into the 30s. It was recommended that patient get a pacemaker placed for significant bradycardia, at which time patient declined any intervention. ?Repeated orthostatics improved after 1 L fluid yesterday. Patient had no episodes of hypotension or bradycardia throughout admission. Remains in rate controlled atrial fibrillation. ?Cardiology consulted for further recommendations, patient placed on continuous cardiac telemetry, will continue cardiac medications of Eliquis 2.5 mg twice daily, Plavix 75 mg daily, Jardiance 10 mg daily, simvastatin 40 mg at bedtime. Patient takes Lasix 40 mg as needed at home, when discussed with patient he states he rarely if ever takes his Lasix. Patient given 1 dose Lasix 40 mg yesterday, edema significantly improved bilateral lower extremities. Lungs CTA. Patient appears euvolemic at this time. Cardiology recommended starting midodrine 5 mg, discharge patient home with midodrine 5 mg 3 times daily as needed for hypotension, systolic less than 110. Patient and family instructed on dosing. Home dose of carvedilol 3.125 mg twice daily has been held during admission due to hypotension/bradycardia. Patient will restart carvedilol as scheduled, patient and family instructed on medication use. ?Echo repeated today shows normal EF of 55%. Per patient he has a history of heart cath with TELLO, unknown year. ?Lab work overall reassuring, no leukocytosis, hemoglobin stable, no electrolyte abnormalities. #Adrenal insufficiency #Generalized weakness ? Patient and family state he sees an dye beck reel operator, Dr. Duran for his thyroid. Unsure if he has been tested for adrenal issues. Upon chart review he appears to have a history of adrenal insufficiency, treated with prednisone 5 mg daily previously. Per patient's son he does not believe patient has been taking his prednisone daily, unsure when he last had it. Patient had a.m. cortisol level drawn in August 2024 which was low at that time of 3.4. Discussed case with Dr. King, dye beck reel operator, who is not in the office this week but recommended obtaining a.m. cortisol and ACTH. These labs were obtained Tuesday morning, they are send out and will be back in 1 to 2 days. Patient was initiated on hydrocortisone 100 mg IV x 1, then continuing with hydrocortisone 50 mg IV every 8 hours. Significant improvement fatigue, weakness. Discussed starting hydrocortisone orally at discharge, will discharge home on hydrocortisone 10 mg at 8 AM, 5 mg at 4 PM. Patient will follow with endocrinology on 02/27/2025 for further evaluation and testing for adrenal insufficiency. ? Patient and family endorse patient has been increasingly globally weak, fatigued, uninterested. When discussed patient has a very flat affect, and reports his health is no longer fixable. Patient continued you to become more interactive after steroid use. Discussed behavioral health seeing patient but patient was recently seen and started on Wellbutrin on Tuesday, will continue new medications. PT/OT evaluated patient as well, recommend home health but report patient is at baseline for ADLs. Patient declined home health at this time. #Diabetic foot ulcer, LLE, second toe ? Podiatry evaluated, recommending clindamycin 450 mg every 8 hours orally x 1 week for left second toe diabetic foot ulcer. Patient endorses neuropathy, no pain reported. Additionally will add mupirocin twice daily to affected area, keeping clean dry and open to air. Discharged home on remaining course of clindamycin. #Insulin-dependent diabetes mellitus ? Patient states that he takes Novolin and doses it pending his blood sugar. Blood sugar has been stable during admission, patient to continue home dosing of insulin. A1c 7.4%. #Prostate cancer ? 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 Patient states he has not had any more issues since that time, sees urologist regularly. CT abdomen/pelvis here in September was normal. #Major depressive disorder #Suicidal ideation ? Per patient's family he has been increasingly depressed over the past 1 to 2 months since his brother's passing. Patient normally lives independently at home but family has been staying with him due to increased suicidal ideation. Patient was recently admitted to [facility] at and started on Wellbutrin. Currently denies suicidal ideation but does endorse feelings of depression and hopelessness. ?Continue Wellbutrin 100 mg extended release daily and escitalopram 5 mg daily. I believe some of his depression/mood disorder relates to possible diagnosis of adrenal insufficiency. #CKD, stage III: Patient has chronic kidney disease baseline creatinine around 2.0. Creatinine improved after fluids to 1.4 day of discharge. #Severe protein calorie malnutrition: Patient meets criteria for SPCM due to recent 40 pound weight loss. Patient states he has been uninterested in food and has had a poor appetite. Patient has seen GI and recently had a scope for he was diagnosed with bile reflux. Patient has home medication to take with foods (sacrosidase) but endorses rarely taking medication. Nutrition consulted for diet recommendations. BMI 32. Total time spent on discharge 38 minutes in counseling, documentation, chart review, and direct care with patient. Exam Data for Last 24 hours Vital signs and Labs for Last 24 Hours: Temp Pulse Resp BP Pulse Ox O2 Del Method 98 F 79 16 134/71 96 Room Air 02/20/25 08:00 02/20/25 08:00 02/20/25 08:00 02/20/25 08:00 02/20/25 08:00 02/20/25 08:00 Laboratory Results - last 24 hr 02/19/25 08:12: Hemoglobin A1c 7.4 H 02/19/25 10:32: POC Glucose 175 H 02/19/25 15:49: POC Glucose 177 H 02/19/25 20:02: POC Glucose 213 H 02/20/25 06:27: WBC 8.7, RBC 3.88 L, Hgb 12.4 L, Hct 36.6 L, MCV 94.3 H, MCH 32.0 H, MCHC 33.9, RDW 15.3, Plt Count 236, MPV 11.1 H, Neut % (Auto) 73.9, Lymph % (Auto) 20.0, Payne % (Auto) 5.3, Eos % (Auto) 0.1, Baso % (Auto) 0.2, Neut # (Auto) 6.5, Lymph # (Auto) 1.8, Payne # (Auto) 0.5, Eos # (Auto) 0.0, Baso # (Auto) 0.0, Sodium 140, Potassium 3.7, Chloride 102, Carbon Dioxide 25, Anion Gap 16.7 H, BUN 30 H, Creatinine 1.40 H, Estimated Creat Clear 56, Estimated GFR 48 L, Est GFR ( Amer) 58 L, Glucose 147 H, Calcium 8.9, Total Bilirubin 0.5, AST 35 D, ALT 15 D, Alkaline Phosphatase 92, Total Protein 6.8, Albumin 4.1, Globulin 2.7, Albumin/Globulin Ratio 1.5 I & O for Last 24 hours: Intake & Output 02/17/25 02/18/25 02/19/25 02/20/25 23:59 23:59 23:59 23:59 Intake Total 1240 / 1490 970 / 1210 240 / 240 Output Total 300 / 300 0 / 0 0 / 0 Balance 940 / 1190 970 / 1210 240 / 240 Weight 107.501 kg 107.048 kg 105.233 kg Constitutional Constitutional: no acute distress and cooperative *Routine HEENT Exam Eye: Present PERRL *Routine Respiratory Exam Respiratory: Present CTA bilaterally; Absent accessory muscle use, wheezes or crackles *Routine Cardiovascular Exam Cardiovascular: Present RRR, Normal S1 and Normal S2; Absent murmur, gallop or rubs *Routine Abdominal Exam Abdominal: Present soft; Absent tenderness *Routine Extremities Exam Extremities: Present pulses intact; Absent cyanosis or edema Comments: Second digit left foot is exposed today, raw tissue, getting wound care *Routine Skin Exam Skin: Present intact; Absent erythema or wounds *Routine Neurological Exam Neurological: Present alert and oriented X3 Routine Psychiatric Exam Psychiatric: Present cooperative Results Data Completed and Pending Labs on day of discharge: Labs from last 24 hours 02/20/25 02/19/25 02/19/25 06:27 20:02 15:49 WBC 8.7 RBC 3.88 L Hgb 12.4 L Hct 36.6 L MCV 94.3 H MCH 32.0 H MCHC 33.9 RDW 15.3 Plt Count 236 MPV 11.1 H Neut % (Auto) 73.9 Lymph % (Auto) 20.0 Payne % (Auto) 5.3 Eos % (Auto) 0.1 Baso % (Auto) 0.2 Neut # (Auto) 6.5 Lymph # (Auto) 1.8 Payne # (Auto) 0.5 Eos # (Auto) 0.0 Baso # (Auto) 0.0 Sodium 140 Potassium 3.7 Chloride 102 Carbon Dioxide 25 Anion Gap 16.7 H BUN 30 H Creatinine 1.40 H Estimated Creat Clear 56 Estimated GFR 48 L Est GFR ( Amer) 58 L Glucose 147 H POC Glucose 213 H 177 H Hemoglobin A1c Calcium 8.9 Total Bilirubin 0.5 AST 35 D ALT 15 D Alkaline Phosphatase 92 Total Protein 6.8 Albumin 4.1 Globulin 2.7 Albumin/Globulin Ratio 1.5 02/19/25 02/19/25 10:32 08:12 WBC RBC Hgb Hct MCV MCH MCHC RDW Plt Count MPV Neut % (Auto) Lymph % (Auto) Payne % (Auto) Eos % (Auto) Baso % (Auto) Neut # (Auto) Lymph # (Auto) Payne # (Auto) Eos # (Auto) Baso # (Auto) Sodium Potassium Chloride Carbon Dioxide Anion Gap BUN Creatinine Estimated Creat Clear Estimated GFR Est GFR ( Amer) Glucose POC Glucose 175 H Hemoglobin A1c 7.4 H Calcium Total Bilirubin AST ALT Alkaline Phosphatase Total Protein Albumin Globulin Albumin/Globulin Ratio DS: Diagnosis Discharge Diagnosis (1) Orthostasis: Status: Acute Code(s): I95.1 - Orthostatic hypotension (2) Heart failure with preserved ejection fraction: Status: Chronic Code(s): I50.30 - Unspecified diastolic (congestive) heart failure (3) Atrial fibrillation: Status: Chronic Code(s): I48.91 - Unspecified atrial fibrillation Qualifiers: Atrial fibrillation type: persistent (not longstanding) Qualified Code(s): I48.19 - Other persistent atrial fibrillation (4) Adrenal insufficiency: Status: Acute Code(s): E27.40 - Unspecified adrenocortical insufficiency (5) Type 2 diabetes mellitus with diabetic polyneuropathy, with long-term current use of insulin: Status: Chronic Code(s): E11.42 - Type 2 diabetes mellitus with diabetic polyneuropathy; Z79.4 - USP (current) use of insulin (6) Diabetic ulcer of toe of left foot: Status: Acute Code(s): E11.621 - Type 2 diabetes mellitus with foot ulcer; L97.529 - Non-pressure chronic ulcer of other part of left foot with unspecified severity Qualifiers: Diabetes mellitus type: type 2 Non-pressure ulcer stage: limited to breakdown of skin Qualified Code(s): E11.621 - Type 2 diabetes mellitus with foot ulcer; L97.521 - Non-pressure chronic ulcer of other part of left foot limited to breakdown of skin (7) Wound, open, foot: Status: Acute Code(s): S91.309A - Unspecified open wound, unspecified foot, initial encounter Qualifiers: Encounter type: sequela Laterality: left Qualified Code(s): S91.302S - Unspecified open wound, left foot, sequela (8) Depression: Status: Acute Code(s): F32.A - Depression, unspecified (9) Major depressive disorder: Status: Chronic Code(s): F32.9 - Major depressive disorder, single episode, unspecified (10) CAD (coronary artery disease): Status: Chronic Code(s): I25.10 - Atherosclerotic heart disease of [place] coronary artery without angina pectoris Qualifiers: Associated angina: without angina Coronary Disease-Associated Artery/Lesion type: [place] artery [place] vs. transplanted heart: [place] heart Qualified Code(s): I25.10 - Atherosclerotic heart disease of [place] coronary artery without angina pectoris (11) Chronic kidney disease, stage III (moderate): Status: Chronic Code(s): N18.30 - Chronic kidney disease, stage 3 unspecified Qualifiers: Chronic kidney disease stage 3 subtype: unspecified whether 3a or 3b Qualified Code(s): N18.30 - Chronic kidney disease, stage 3 unspecified (12) Severe protein-calorie malnutrition: Status: Acute Code(s): E43 - Unspecified severe protein-calorie malnutrition Meds Home Medications and Allergies Home Medications ?Medication ?Instructions ?Recorded ?Confirmed ?Type insulin human U-100 NPH-regulr 20 unit SQ HS 10/15/24 02/18/25 History 70-30 mix 100 unit/mL subcutaneous susp (Novolin 70/30 U-100 Insulin) insulin human U-100 NPH-regulr 35 unit SQ AM 10/15/24 02/18/25 History 70-30 mix 100 unit/mL subcutaneous susp (Novolin 70/30 U-100 Insulin) simvastatin 40 mg tablet 40 mg PO HS #90 tabs 5 02/18/25 Rx calcitriol 0.25 mcg capsule 0.25 mcg PO MOWEFR #108 ca ps 11/06/24 02/18/25 Rx polyethylene glycol 3350 17 gram 17 g PO DAILY 5 02/18/25 History oral powder packet carvedilol 3.125 mg tablet 3.125 mg PO BID #180 tabs 0 11/27/24 02/18/25 Rx tamsulosin 0.4 mg capsule 0.4 mg PO HS #90 caps 02/18/25 Rx clopidogrel 75 mg tablet 75 mg PO DAILY #90 tabs 05/2202/18/25 Rx sacrosidase 8,500 unit/mL oral 2 ml PO 6XD #360 mL 02/18/25 Rx solution (Sucraid) allopurinol 100 mg tablet 100 mg PO BID #180 tabs 06/2202/18/25 Rx apixaban 5 mg tablet (Eliquis) 2.5 mg (1/2 x 5 mg) PO BID #90 tabs 01/31/25 02/18/25 Rx cholecalciferol (vitamin D3) 50 50 mcg PO DAILY #90 ca ps 01/31/25 02/18/25 Rx mcg (2,000 unit) capsule (Vitamin D3) furosemide 40 mg tablet 40 mg PO BIDP PRN Edema #180 tabs 01/31/25 02/18/25 Rx gabapentin 300 mg capsule 300 mg PO TID #270 caps 06/2202/18/25 Rx bupropion HCl 100 mg tablet,12 hr 100 mg PO DAILY #30 ea 02/15/25 02/18/25 Rx sustained-release empagliflozin 10 mg tablet 10 mg PO DAILY 02/18/25 History (Jardiance) escitalopram oxalate 5 mg tablet 5 mg PO DAILY 5 02/18/25 History mupirocin 2 % topical ointment 1 applic topical BID 02/18/25 History clindamycin HCl 150 mg capsule 450 mg (3 x 150 mg) PO TID 6 days 02/20/25 Rx #60 caps hydrocortisone 10 mg tablet 10 mg PO BID #45 tabs 01/29 06/22 Rx midodrine 5 mg tablet 5 mg PO TIDP PRN hypotension #30 02/20/25 Rx tabs New Prescriptions to Start Prescriptions: clindamycin HCl Alexia López hydrocortisone Rene,Alexia midodrine Alexia López Allergies Allergy/AdvReac Type Severity Reaction Status Date / Time No Known Allergies Allergy Verified 02/11/25 10:47 Discharge Plan Disposition Patient Disposition: Home, Self-Care Condition: Good Discharge Order Discharge Orders: Discharge Order (Routine); Ordered 02/20/25 Ordered By: Alexia López Follow up Plan Follow up with: Arnav Nj PA [Physician Embedded Linux Engineer, Cardiology] - 03/11/25 9:15 am Christopher Yadav MD [Primary Care Provider, Medical] - 03/05/25 1:45 pm Doroteo Suazo MD [Staff Physician, Endocrinology] - 02/27/25 2:15 pm Abimbola Logan DPM [Staff Physician, Podiatry] - Enter time for follow up Prescriptions/Medication Reconciliation: New clindamycin HCl 150 mg Capsule 450 mg PO TID 6 Days Qty: 60 0RF hydrocortisone 10 mg tablet 10 mg PO BID Qty: 45 0RF Rx Instructions: Take 1 tablet (10 mg) at 8 am and a half tablet (5 mg) at 4 pm midodrine 5 mg tablet 5 mg PO TIDP PRN (Reason: hypotension) Qty: 30 0RF Rx Instructions: take as needed for systolic <110 do not give last dose of day after 6PM or within 4 hrs of bedtime Continued polyethylene glycol 3350 17 gram powder in packet 17 g PO DAILY calcitriol 0.25 mcg capsule 0.25 mcg PO MOWEFR Qty: 108 1RF gabapentin 300 mg capsule 300 mg PO TID Qty: 270 1RF allopurinol 100 mg tablet 100 mg PO BID Qty: 180 1RF Eliquis 5 mg tablet 2.5 mg PO BID Qty: 90 1RF cholecalciferol (vitamin D3) [Vitamin D3] 50 mcg (2,000 unit) capsule 50 mcg PO DAILY Qty: 90 1RF furosemide 40 mg tablet 40 mg PO BIDP PRN (Reason: Edema) Qty: 180 1RF simvastatin 40 mg tablet 40 mg PO HS Qty: 90 1RF carvedilol 3.125 mg tablet 3.125 mg PO BID Qty: 180 1RF tamsulosin 0.4 mg capsule 0.4 mg PO HS Qty: 90 1RF clopidogrel 75 mg tablet 75 mg PO DAILY Qty: 90 1RF Sucraid 8,500 unit/mL solution 2 ml PO 6XD Qty: 360 12RF Rx Instructions: 2mL by mouth with meals/snacks up to 6XD bupropion HCl 100 mg tablet sustained-release 12 hr 100 mg PO DAILY Qty: 30 2RF Novolin 70/30 U-100 Insulin 100 unit/mL (70-30) suspension 35 unit SQ AM Patient Comments: INJECT 58 UNITS SUBCUTANEOUSLY DIRECTED TWICE DAILY WITH MEALS Novolin 70/30 U-100 Insulin 100 unit/mL (70-30) suspension 20 unit SQ HS escitalopram oxalate 5 mg tablet 5 mg PO DAILY Jardiance 10 mg tablet 10 mg PO DAILY mupirocin 2 % ointment 1 applic topical BID Discontinued prednisone 5 mg tablet 5 mg PO DAILY Problem Reconciliation Problems Reviewed?: Yes Patient Discharge Instructions ACTIVITY: Continue current activity DIET: continue same diet Patient Instructions: Orthostatic Hypotension, DI for Muscle Weakness Print Language: Faroese Providers Primary Care Provider: Christopher Yadav Admit Provider: Lloyd Guthrie Attending Provider: Lloyd Guthrie
[2025-02-20 16:12] LABS: Cortisol,AM 18.3 ug/dL (6.2-19.4)
--- NOTE | 2025-02-22 11:20 | CARE MANAGER ---
Addendum entered by Kesha Fournier 02/22/25 13:32: Faxed over patient's information to [facility] and they are able to accept patient. Baldev Original Note: Spoke with patient's son Bruce. He discussed with father and they are agreeable to home health services. They also took the patient to [facility] last night, but they told us the same thing you all did and he went back home. His blood pressure is better. They deny other questions at this time.
== END 2025-02-20 11:14 | disposition home or self-care (01) | DRG 643 ==
LOC: ER 10:07 → 2ND 10:44
PROVIDERS: Admitting Provider Internal Medicine Adolescent Medicine; Emergency Provider Emergency Medicine; PCP Internal Medicine; Visit Provider Internal Medicine Adolescent Medicine
DX: E27.40 Unspecified adrenocortical insufficiency (principal); E43 Unspecified severe protein-calorie malnutrition; C79.51 Secondary malignant neoplasm of bone; I13.0 Hypertensive heart and chronic kidney disease with heart failure and stage 1 through stage 4 chronic kidney disease, or unspecified chronic kidney disease; I50.32 Chronic diastolic (congestive) heart failure; Z79.4 Long term (current) use of insulin; E11.621 Type 2 diabetes mellitus with foot ulcer; L97.521 Non-pressure chronic ulcer of other part of left foot limited to breakdown of skin; F32.9 Major depressive disorder, single episode, unspecified; I25.10 Atherosclerotic heart disease of native coronary artery without angina pectoris; N18.30 Chronic kidney disease, stage 3 unspecified; C61 Malignant neoplasm of prostate; Z79.01 Long term (current) use of anticoagulants; T44.7X6A Underdosing of beta-adrenoreceptor antagonists, initial encounter; K21.9 Gastro-esophageal reflux disease without esophagitis; Z91.51 Personal history of suicidal behavior; Z79.899 Other long term (current) drug therapy; E78.5 Hyperlipidemia, unspecified; E11.22 Type 2 diabetes mellitus with diabetic chronic kidney disease; F41.9 Anxiety disorder, unspecified; S91.205D Unspecified open wound of left lesser toe(s) with damage to nail, subsequent encounter; E11.51 Type 2 diabetes mellitus with diabetic peripheral angiopathy without gangrene; I49.5 Sick sinus syndrome; I48.0 Paroxysmal atrial fibrillation; I95.89 Other hypotension; E11.40 Type 2 diabetes mellitus with diabetic neuropathy, unspecified; T38.0X6A Underdosing of glucocorticoids and synthetic analogues, initial encounter; Z91.148 Patient's other noncompliance with medication regimen for other reason; Z68.32 Body mass index [BMI] 32.0-32.9, adult
CPT/HCPCS: 36415; 80053; 81001; 82024; 82533; 82962; 83036; 83735; 83880; 84443; 84484; 85025; 87636; 93005; 93306; 97162; 97165; 99285; J1720; J7030